=== PATIENT | female | born 1985 | race Caucasian/White ===

== ENCOUNTER 2019-04-04 03:30 | Emergency (ER) | payer BC, MEDICAID, SELFPAY ==
[2019-04-04 03:31] VITALS: BP 128/72; PULSE 71; RESP 16; TEMP 36.7; O2SAT 99; BMI 34.0
--- NOTE | 2019-04-04 03:45 | EKG12_ITS ---
Test Reason : CP Blood Pressure : / mmHG Vent. Rate : 068 BPM Atrial Rate : 068 BPM P-R Int : 128 ms QRS Dur : 082 ms QT Int : 384 ms P-R-T Axes : 030 030 026 degrees QTc Int : 408 ms Normal sinus rhythm Normal ECG Confirmed by MICHA GEORGE, MORRO ([id number]), editor in chief JERE CHAMBERS ([id number] on 04/05/2019 1:22:48 PM Referred By: ERIC Confirmed By:LINDA MUSE MD
--- NOTE | 2019-04-04 03:45 | RAD_ITS ---
STUDY: X-RAY CHEST REASON FOR EXAM: Female, 33 years old. Chest pain. TECHNIQUE: Single AP portable view of the chest. COMPARISON: None. FINDINGS: The lungs are slightly underexpanded with mild bilateral basilar atelectasis, otherwise clear. There is no demonstrated pleural abnormality. Normal size heart. Normal mediastinum and greg. Normal visualized pulmonary arteries. Normal visualized aortic arch and descending thoracic aorta. Normal visualized thoracic spine. Normal visualized ribs, clavicles, and shoulders. There is no demonstrated abnormality of the visualized soft tissue structures of the upper abdomen. RAD/Chest 1 View (Portable) IMPRESSION: Mild bilateral basilar atelectasis, otherwise no acute cardiac pulmonary process seen Electronically Signed: Mara Wolf MD at 4:14 EDT , Service support ,
[2019-04-04 04:02] LABS: Absolute Lymphocyte Count 2.79 X10^3/uL (0.83-4.51); Absolute Neutrophil Count 3.4 X10^3/uL (2.0-7.7); Basophil# 0.05 X10^3/uL; Basophil% 0.7 % (0-1); Eosinophil# 0.23 X10^3/uL; Eosinophils% 3.3 % (0-5); Hematocrit 34.5 % (37-47); Hemoglobin 11.3 g/dL (12.0-15.0); Lymphocyte # 2.79 X10^3/ul (4.0); Lymphocyte % 40.4 % (19-41); Mean Corp Hgb Conc 32.8 g/dL (32-36); Mean Corpuscular Hgb 31.4 pg (27.0-32.0); Mean Corpuscular Volume 95.8 fL (81-99); Mean Platelet Vol. 9.6 fl (6.2-12.0); Monocyte# 0.43 X10^3/uL; Monocyte% 6.2 % (0-10); NRBC Flagged by Analyzer 0 % (0-5); Neutrophil % 49.3 % (47-70); Platelet Count 199 K/mm3 (150-450); RBC Distribution Width CV 12.8 % (11.6-14.6); RBC Distribution Width SD 44.8 fl (35.1-43.9); White Blood Count 6.9 K/mm3 (4.4-11.0)
[2019-04-04 04:14] LABS: D-Dimer Quantitative (DVT/PE) 1.12 FEU/ug/m (0.27-0.49)
--- NOTE | 2019-04-04 04:14 | CT_ITS ---
STUDY: CTA CHEST REASON FOR EXAM: Female, 33 years old. Chest pain for one month, concern for pulmonary embolus. History of DVT. RADIATION DOSAGE (If Supplied By Facility): CTDIvol = ( 9.74 ) mGy, DLP = ( 402.24 ) mGycm TECHNIQUE: The examination was performed with the intravenous administration of IV 100mL Isovue-370 100ML. Post-processing of the angiographic images was performed, with multiplanar reformation and 3D reconstruction. Individualized dose optimization techniques were used for this CT. COMPARISON: None. FINDINGS: Normal enhancement of the main pulmonary artery and right and left pulmonary arteries. Normal enhancement of the bilateral peripheral pulmonary arteries. There is no demonstrated pulmonary embolism. Normal thoracic aorta and visualized great vessels. There is no demonstrated aortic dissection. Normal heart and pericardium. Normal mediastinum. Normal hilar regions. Normal visualized trachea and bronchi. The lungs are well expanded. There is mild posterior lower lobe groundglass opacities suggestive of mild dependent atelectasis versus residual infiltrates. There are small bilateral lower lobe subpleural cystic changes . There is a focal area of consolidation within the left lower lobe suggestive of atelectasis, differential diagnosis includes patchy pneumonia versus less likely neoplasm. Normal pleura. Normal chest wall structures. Normal osseous structures. Normal visualized upper abdomen. CT/CTA Chest W/WO Contrast IMPRESSION: Negative CTA chest examination, without a demonstrated pulmonary embolism or arterial dissection. Area suggestive of round atelectasis within the left lower lobe as described above. Differential diagnosis includes residual patchy infiltrate. Given age and morphology, neoplasm is unlikely but not excluded. Follow-up with CT chest in 3 months recommended to evaluate resolution. Bilateral subtle ground glass densities along the posterior dependent lower lobes most compatible with dependent atelectasis, less likely pneumonia. Electronically Signed: Mara Wolf MD at 4:52 EDT , Service support ,
[2019-04-04 04:17] LABS: Anion Gap 8 (5-15); BUN 20 mg/dL (7-18); BUN/Creat Ratio 19.4 RATIO (10-20); Chloride 108 mmol/L (98-107); Creatinine, Serum 1.03 mg/dL (0.55-1.02); EST Glomerular Filtration Rate 66 mL/min (>60); Est Glom Filt Rate - Afr Amer 80 mL/min (>60); Estimated Creatinine Clearance 62.02 ml/min; Glucose 87 mg/dL (74-106); Potassium 3.5 mmol/L (3.5-5.1); Sodium Level 139 mmol/L (136-145)
[2019-04-04 04:46] LABS: Internal QC Validated? YES +Cl - CLEAR BKGD; Pregnancy, Serum, hCG Quali. NEGATIVE Negative
[2019-04-04 04:54] VITALS: BP 98/55; PULSE 68; RESP 20; O2SAT 100
--- NOTE | 2019-04-04 04:58 | ED.RN ---
0413 dr sky made aware of d-dimer 1.12.
--- NOTE | 2019-04-04 05:04 | ED.DCSUM_ITS ---
- ER Visit Summary Date of Service: 04/04/19 Chief Complaint: Pain History of Present Illness: The patient is a 33 F with left-sided chest pain ongoing for about a month and a half. It was worse over the past hour or so the patient came to the ED. Associated with nausea and a headache. Denies fevers or other associated symptoms. Patient does smoke and use control. History of factor V Leiden. Physical Examination: Afebrile and vital signs are unremarkable. Alert and orie nted. No acute distress. Heart regular. No respiratory distress. Extremities nontender with no edema. Skin normal. Test Results: EKG showed sinus rhythm at a rate of 68. Hemoglobin stable at 11.3. Chloride 108 and creatinine 1.03. Troponin normal. D-dimer elevated. Initial chest x-ray showed mild bibasilar atelectasis. CT showed no evidence of PE or dissection but she does have a possible left lower lobe infiltrate versus atelectasis. Emergency Department Course and Treatment: Patient was low risk for PE. No PE on CTA. No risk factors for ACS. She does have some possible left lower lobe infiltrate. She has left side pain. She does not have signs of sepsis or signs of pneumonia, will treat given her ongoing symptoms with azithromycin. Follow- up outpatient medicine as advised. Treatment Plan: As above Disposition: Discharge Impression: 1. Atypical chest pain This note was generated with [employer] dictation software. It may contain incorrect words, spelling, and punctuation that were not noted in review of the chart prior to signing ED Disposition - Plan for ED Patient: Referrals: Dilma Gonzalez, VINOD-C [Primary Care Provider] -
--- NOTE | 2019-04-04 05:06 | ED.DEP ---
ED Disposition - Plan for ED Patient: Instructions: CHEST PAIN, Uncertain Cause Prescriptions: Azithromycin 250 mg PO DAILY 4 Days #4 tab Prescription Printed Referrals: Dilma Gonzalez, CUSTOMER SERVICE COORDINATOR-C [Primary Care Provider] -
[2019-04-04] MEDS: Naproxen 500 MG Tablet PO (05:13)
[2019-04-04] MEDS: Azithromycin 250 MG Tablet 500 MG PO (05:13)
[2019-04-04 05:21] VITALS: BP 114/80; PULSE 87; RESP 18; O2SAT 100
== END 2019-04-04 05:22 | disposition home or self-care (01) ==
PROVIDERS: Emergency Provider Emergency Medicine; Family Provider Nurse Practitioner Family; PCP Nurse Practitioner Family
DX: R07.89 Other chest pain (principal); R11.0 Nausea; R51 Headache; R79.89 Other specified abnormal findings of blood chemistry; J98.11 Atelectasis; D68.51 Activated protein C resistance; F32.9 Major depressive disorder, single episode, unspecified; F41.9 Anxiety disorder, unspecified; Z87.442 Personal history of urinary calculi; Z79.3 Long term (current) use of hormonal contraceptives; Z79.01 Long term (current) use of anticoagulants; Z79.899 Other long term (current) drug therapy; Z72.0 Tobacco use
CPT/HCPCS: 71045; 71275; 80048; 84484; 84703; 85025; 85379; 93005; 99285; Q9967

== ENCOUNTER 2019-06-17 04:03 | Emergency (ER) | payer BC, SELFPAY ==
[2019-06-17 04:04] VITALS: BP 127/81; PULSE 113; RESP 18; TEMP 37.7; O2SAT 97; BMI 33.8
[2019-06-17 04:07] VITALS: BP 127/81; PULSE 113; RESP 18; TEMP 37.7; O2SAT 97
--- NOTE | 2019-06-17 04:17 | RAD_ITS ---
STUDY: X-RAY CHEST REASON FOR EXAM: Female, 33 years old. COUGH, [place] AND CHILLS X 1 HR. TECHNIQUE: PA and lateral views of the chest. COMPARISON: 04/04/2019 FINDINGS: The lungs demonstrate linear probable bibasilar atelectasis. There is no focal lung consolidation. Normal size heart. Normal mediastinum and greg. Normal visualized pulmonary arteries. Normal visualized aortic arch and descending thoracic aorta. Normal visualized thoracic spine. Normal visualized ribs, clavicles, and shoulders. There is no demonstrated abnormality of the visualized soft tissue structures of the upper abdomen. RAD/Chest PA and Lateral IMPRESSION: Minimal probable bibasilar atelectasis versus scarring. No focal lung consolidation Electronically Signed: Esteban Melchor, at 5:05 EST Tel , Service support ,
--- NOTE | 2019-06-17 04:17 | ED.VIS.GEN ---
History of Present Illness Chief Complaint: Cold Sx Detail of Chief Complaint: Cough, congestion, chills Informant: Patient Onset: - - Cough times several weeks, chills tonight Current Severity: Mild Maximum Severity: Moderate Narrative: Patient ports ongoing cough for the past several weeks. She has been put on prednisone and Tessalon Perles. She has an inhaler that she uses intermittently. She states cough is continued and tonight she developed chills with mild body aches and a headache. She took Excedrin prior to arrival. She states she has intermittent wheezing. - Past Medical History (1) Factor V Leiden Status: Chronic Past Medical History - Allergies and Home Meds Allergies/Adverse Reactions: Allergies cephalexin monohydrate [From Keflex] Adverse Reaction (Verified 04/04/19 03:36) WEAKNESS, MUSCLE ACHES Penicillins Adverse Reaction (Verified 01/30/15 19:07) Nausea/Vom/Diarrhea Primary Care Physician: Dilma Gonzalez NP-C [Primary Care Provider] - Prior records reviewed: Yes Lives: With Family Smoking Status: Current every day smoker Review of Systems General: Reports: Chills. Denies: Fever Eyes: Denies: Visual changes - bilaterally ENT: Denies: Bilateral ear pain Cardiovascular: Denies: Chest pain Respiratory: Reports: Dyspnea, Cough Gastrointestinal: Denies: Abdominal pain, Vomiting, Diarrhea Musculoskeletal: Reports: Myalgias Skin: Denies: Rash Neurological: Reports: Headache Allergy: Denies: Uticaria Physical Exam Vital Signs/Narrative: Vital Signs Temp Pulse Resp BP Pulse Ox 06/17/19 04:07 99.8 F H 113 H 18 127/81 H 97 06/17/19 04:04 99.8 F H 113 H 18 127/81 H 97 Inital Vital Signs reviewed: Yes General: Well nourished, Well developed Head: Normocephalic ENT: Moist mucous membranes, TM's clear Neck: Supple Cardiovascular: Regular rate, Regular rhythm Respiratory: No distress, CTA bilaterally Abdomen: Soft, Nontender Extremities: Nontender Skin: Normal color, No rash Neurological: Alert, Oriented x3 Psychological: Normal affect Diagnostic/Tx/Re-eval Impressions Chest X-Ray 06/17/19 04:17 IMPRESSION: Minimal probable bibasilar atelectasis versus scarring. No focal lung consolidation Electronically Signed: Esteban Melchor, at 5:05 EST Tel , Service support , 06/17/19 04:17 Chest PA and Lateral [RAD] Stat - Medical Decision Making Patient was given a DuoNeb treatment. On repeat evaluation she does feel improved. Lungs remain clear. Chest x-ray does show a haziness at the right base. It is read by radiology as possible atelectasis but I am concerned for early infiltrate given her symptoms. She will be treated the course of doxycycline. ED Disposition - Plan for ED Patient: Disposition: Home or Assisted Living Diagnosis: Bronchitis Instructions: BRONCHITIS, Antiobiotic Treatment (Adult) Prescriptions: Doxycycline 100 mg PO BID #20 cap Transmission Status: Pending to [id number] Referrals: Dilma Gonzalez, MASH GRINDER-C [Primary Care Provider] - 1 Week
[2019-06-17] MEDS: Ipratropium/Albuterol Sulfate 3 ML AMPUL.NEB INHALATION (04:46)
[2019-06-17 04:47] VITALS: PULSE 114; RESP 18
[2019-06-17] MEDS: Doxycycline 100 MG CAPSULE PO (05:32)
[2019-06-17 05:35] VITALS: PULSE 99; RESP 16; O2SAT 100
== END 2019-06-17 05:36 | disposition home or self-care (01) ==
PROVIDERS: Emergency Provider Emergency Medicine; Family Provider Nurse Practitioner Family; PCP Nurse Practitioner Family
DX: J40 Bronchitis, not specified as acute or chronic (principal); R06.2 Wheezing; D68.51 Activated protein C resistance; F17.200 Nicotine dependence, unspecified, uncomplicated; Z79.899 Other long term (current) drug therapy; Z88.1 Allergy status to other antibiotic agents; Z88.0 Allergy status to penicillin
CPT/HCPCS: 71046; 94640; 99283

== ENCOUNTER 2019-06-24 02:20 | Emergency (ER) | payer BC, SELFPAY ==
[2019-06-24 02:22] VITALS: BP 133/80; PULSE 85; RESP 16; TEMP 36.6; O2SAT 99; BMI 35.2
--- NOTE | 2019-06-24 02:26 | ED.RN ---
CALLED FOR EKG, PULLED OLD EKGS FOR
--- NOTE | 2019-06-24 02:49 | EKG12_ITS ---
Test Reason : CP Blood Pressure : / mmHG Vent. Rate : 071 BPM Atrial Rate : 071 BPM P-R Int : 140 ms QRS Dur : 080 ms QT Int : 366 ms P-R-T Axes : 048 037 025 degrees QTc Int : 397 ms Normal sinus rhythm Normal ECG Confirmed by ALISON GEORGE, FELISA ([id number]), editorial clerk MARIKA ROB ([id number]) on 06/25/2019 10:08:40 AM Referred By: VICTOR M Confirmed By:FELISA ROSAS MD
--- NOTE | 2019-06-24 02:49 | RAD_ITS ---
STUDY: X-RAY CHEST REASON FOR EXAM: Female, 33 years old. c/o lt sided chest pain and pain with inspiration -- cough TECHNIQUE: Single AP portable view of the chest. COMPARISON: 06/17/2019. FINDINGS: The lungs are clear and expanded. There is no demonstrated pleural abnormality. Normal size heart. Normal mediastinum and greg. Normal visualized pulmonary arteries. Normal visualized aortic arch and descending thoracic aorta. Normal visualized thoracic spine. Normal visualized ribs, clavicles, and shoulders. There is no demonstrated abnormality of the visualized soft tissue structures of the upper abdomen. RAD/Chest 1 View (Portable) IMPRESSION: Normal x-ray examination of the chest. Electronically Signed: Mara Wolf MD at 3:37 EST , Service support ,
--- NOTE | 2019-06-24 02:50 | ED.DCSUM_ITS ---
- ER Visit Summary Date of Service: 06/24/19 Chief Complaint: Left lateral pleuritic chest pain History of Present Illness: The patient is a [address] prior DVT and PE for which she was on Eliquis. That is since been stopped. She does have a history of factor V Leiden, is a smoker is and is on control pills. Recently had a URI for which she is on doxycycline. Has been doing well. Tonight around 1 AM she had sudden onset of left lateral rib cage chest pain. It is pleuritic and worse with deep breathing. She feels mildly short of breath. No exertional chest pain. No cardiac history. No leg pain or swelling. No recent travel or surgery or hospitalization. Physical Examination: Young female no acute distress vital signs are stable afebrile. Pulse ox 99% on room air no signs of hypoxia. H EENT exam unremarkable. Neck nontender no JVD no lymphadenopathy. Lungs clear to auscultation bilaterally. She splints on the left with deep breathing she has increased left lateral rib cage pain. She also has reproducible left lateral rib cage pain. There is no subcu air crepitance. No bruising or rib bony abnormalities. Heart is regular rate and rhythm rate about 70 with no murmur. Abdomen is soft and nontender normal bowel sounds no peritoneal signs. Abdomen soft nontender normal bowel sounds no peritoneal signs. She is moving all 4 extremities. Calves are nontender without edema or cords. Neurologically she is awake and alert with no focal motor deficits. Back nontender. Test Results: EKG shows a sinus rhythm rate of 71 with no acute signs of AK or ischemia. No S1 or Q3 nor T3. Portable chest x-ray one view read by myself shows no acute abnormality. Normal cardiac silhouette. No pneumothorax. No infiltrate. No bony abnormalities. CBC unremarkable white count of 7. Hemoglobin 13. BMP unremarkable normal creatinine and gap. Troponin normal. test negative. D-dimer elevated 0.97. Due to her numerous risk factors, history and clinical presentation along with the elevated d-dimer I will obtain a CTA of her chest. There is no PE. No dissection. Emergency Department Course and Treatment: Patient with left lateral pleuritic chest pain with risk factors including prior PE and DVT, smoker, control and a history of factor V Leiden. Will undergo a cardiac work-up clinically I do not think this is her heart. This could be a pulmonary emboli versus rib cage strain and pain from coughing with a recent URI. Treatment Plan: Tylenol Motrin for left lateral rib cage pain. Ice to the area. Follow-up. Disposition: dc Impression: Left lateral pleuritic chest pain secondary to chest wall pain History of prior DVT and PE History of factor V Leiden Smoker on control This note was generated with [employer] dictation software. It may contain incorrect words, spelling, and punctuation that were not noted in review of the chart prior to signing ED Disposition - Plan for ED Patient: Referrals: Dlima Gonzalez, VINOD-C [Primary Care Provider] -
[2019-06-24 02:55] LABS: Absolute Lymphocyte Count 2.61 X10^3/uL (0.83-4.51); Absolute Neutrophil Count 3.7 X10^3/uL (2.0-7.7); Basophil# 0.03 X10^3/uL; Basophil% 0.4 % (0-1); Eosinophil# 0.18 X10^3/uL; Eosinophils% 2.6 % (0-5); Lymphocyte # 2.61 X10^3/ul (4.0); Lymphocyte % 37.1 % (19-41); Mean Corp Hgb Conc 32.5 g/dL (32-36); Mean Corpuscular Hgb 31.2 pg (27.0-32.0); Mean Corpuscular Volume 95.9 fL (81-99); Mean Platelet Vol. 9.6 fl (6.2-12.0); Monocyte# 0.48 X10^3/uL; Monocyte% 6.8 % (0-10); NRBC Flagged by Analyzer 0 % (0-5); Neutrophil # 3.72 X10^3/uL (2.7-7.7); Neutrophil % 52.8 % (47-70); Platelet Count 226 K/mm3 (150-450); RBC Distribution Width CV 13.8 % (11.6-14.6); RBC Distribution Width SD 48.5 fl (35.1-43.9); Red Blood Count 4.17 M/mm3 (4.2-5.4)
[2019-06-24 02:58] LABS: Internal QC Validated? YES +Cl - CLEAR BKGD; Pregnancy, Serum, hCG Quali. NEGATIVE Negative
[2019-06-24 03:09] LABS: Anion Gap 7 (5-15); BUN 26 mg/dL (7-18); BUN/Creat Ratio 25.5 RATIO (10-20); Calcium,Total 9.4 mg/dL (8.5-10.1); Chloride 113 mmol/L (98-107); Creatinine, Serum 1.02 mg/dL (0.55-1.02); EST Glomerular Filtration Rate 67 mL/min (>60); Est Glom Filt Rate - Afr Amer 80 mL/min (>60); Glucose 94 mg/dL (74-106); Potassium 3.9 mmol/L (3.5-5.1); Sodium Level 142 mmol/L (136-145)
[2019-06-24 03:12] LABS: D-Dimer Quantitative (DVT/PE) 0.97 FEU/ug/m (0.27-0.49)
--- NOTE | 2019-06-24 03:13 | CT_ITS ---
STUDY: CTA CHEST REASON FOR EXAM: Female, 33 years old. LEFT LOWER LATERAL PLEURITIC CP, COUGH, ELEVATED D-DIMER, HX PE, FACTOR FIVE, NOT CURRENTLY ON THINNERS RADIATION DOSAGE (If Supplied By Facility): CTDIvol = ( 15.06 ) mGy, DLP = ( 410.07 ) mGycm TECHNIQUE: The examination was performed with the intravenous administration of IV 100mL Isovue-370. Post-processing of the angiographic images was performed, with multiplanar reformation and 3D reconstruction. Individualized dose optimization techniques were used for this CT. COMPARISON: None. FINDINGS: Normal enhancement of the main pulmonary artery and right and left pulmonary arteries. Normal enhancement of the bilateral peripheral pulmonary arteries. There is no demonstrated pulmonary embolism. Normal thoracic aorta and visualized great vessels. There is no demonstrated aortic dissection. Normal heart and pericardium. Normal mediastinum. Normal hilar regions. Normal visualized trachea and bronchi. Subsegmental atelectases are noted in the right and left lung bases. Normal pulmonary parenchyma. Normal pleura. Normal chest wall structures. Normal osseous structures. Normal visualized upper abdomen. CT/CTA Chest W/WO Contrast IMPRESSION: No demonstrated pulmonary embolism or arterial dissection. Electronically Signed: Sima Vinson, at 5:49 EST Tel , Service support ,
[2019-06-24] MEDS: Ibuprofen 600 MG Tablet PO (04:01)
[2019-06-24] MEDS: 0.9% Normal Saline 1,000 ML 999 ML IV (04:02)
[2019-06-24 04:44] VITALS: BP 112/80; PULSE 71; RESP 10; O2SAT 99
[2019-06-24 05:54] VITALS: BP 103/77; PULSE 62; RESP 17; O2SAT 97
--- NOTE | 2019-06-24 05:55 | ED.DEP ---
ED Disposition - Plan for ED Patient: Disposition: Home or Assisted Living Instructions: Chest Wall Strain Referrals: Dilma Gonzalez, MOTORCYCLE MAKER-C [Primary Care Provider] - 1 Week if not improving Additional Instructions: Motrin and Tylenol for pain of your left lateral rib cage. The CAT scan shows no signs of blood clot or pneumonia. This is most likely secondary to strain of your rib cage and chest wall from coughing. This should progressively improve and resolve.
== END 2019-06-24 06:00 | disposition home or self-care (01) ==
PROVIDERS: Emergency Provider Emergency Medicine; Family Provider Nurse Practitioner Family; PCP Nurse Practitioner Family
DX: R07.81 Pleurodynia (principal); R07.89 Other chest pain; D68.51 Activated protein C resistance; F32.9 Major depressive disorder, single episode, unspecified; F41.9 Anxiety disorder, unspecified; Z72.0 Tobacco use; Z79.3 Long term (current) use of hormonal contraceptives; Z79.899 Other long term (current) drug therapy; Z86.718 Personal history of other venous thrombosis and embolism; Z86.711 Personal history of pulmonary embolism; Z87.442 Personal history of urinary calculi
CPT/HCPCS: 71045; 71275; 80048; 84484; 84703; 85025; 85379; 93005; 96360; 99285; J7030; Q9967; A4216

== ENCOUNTER 2019-07-17 04:47 | Emergency (ER) | payer BC, SELFPAY ==
[2019-07-17 04:47] VITALS: BP 129/72; PULSE 99; RESP 18; TEMP 36.7; O2SAT 100; BMI 33.3
--- NOTE | 2019-07-17 05:18 | ED.DCSUM_ITS ---
History of Present Illness Chief Complaint: Back Narrative: Patient is a 33-year-old female who presents with back pain. No history of any trauma or injury. She notes that she sits all day for work. About 10 PM last night she developed some bilateral lower back pain. This is worse with movement or certain positions or palpation. No vaginal bleeding or discharge. No abdominal or pelvic pain. No urinary retention or fecal incontinence. No numbness tingling or weakness in the legs. No radiation of pain to the legs. No saddle anesthesias. No fever. No IV drug abuse. Past Medical History - Allergies and Home Meds Allergies/Adverse Reactions: Allergies cephalexin monohydrate [From Keflex] Adverse Reaction (Verified 07/17/19 04:49) WEAKNESS, MUSCLE ACHES Penicillins Adverse Reaction (Verified 07/17/19 04:49) Nausea/Vom/Diarrhea Primary Care Physician: Dilma Gonzalez NP-C [Primary Care Provider] - Past Medical History: - - Asthma, migraines Smoking Status: Current every day smoker Review of Systems All systems negative except as indicated General: Denies: Fever Cardiovascular: Denies: Chest pain Respiratory: Denies: Dyspnea Gastrointestinal: Denies: Abdominal pain, Nausea, Vomiting Musculoskeletal: Reports: Back pain. Denies: Extremity Pain Skin: Denies: Rash Neurological: Denies: Headache Physical Exam Vital Signs/Narrative: Vital Signs Temp Pulse Resp BP Pulse Ox 07/17/19 04:47 98.0 F 99 18 129/72 H 100 Inital Vital Signs reviewed: Yes General: Well nourished Head: Normocephalic Eyes: EOMI ENT: Moist mucous membranes Neck: Supple Cardiovascular: Regular rate Respiratory: No distress Abdomen: Soft, Nontender, Nondistended Back: - - Bilateral paraspinal lumbar tenderness no midline tenderness Extremities: Nontender, No edema, - - Normal strength and sensation of the lower extremities Neurological: Alert, Normal Strength, Normal Sensation Psychological: Normal affect Diagnostic/Tx/Re-eval - Medical Decision Making Patient's presentation is most consistent with a lumbosacral strain. She was given naproxen here. She was given prescriptions for naproxen and Flexeril and advised on supportive care. She understands to return for new or worsening symptoms. Patient was discharged. ED Disposition - Plan for ED Patient: Disposition: Home or Assisted Living Diagnosis: Lumbosacral strain Prescriptions: cycloBENZAPRine HCl [Flexeril] 10 mg PO TID PRN #20 tab PRN Reason: Muscle Spasm Prescription Printed Naproxen [Naprosyn] 500 mg PO BID #20 tab Prescription Printed Referrals: Dilma Gonzalez, CYTOTECHNOLOGIST SUPERVISOR-C [Primary Care Provider] -
[2019-07-17] MEDS: Naproxen 500 MG Tablet PO (05:26)
== END 2019-07-17 05:27 | disposition home or self-care (01) ==
LOC: ED 05:21
PROVIDERS: Emergency Provider Emergency Medicine; PCP Nurse Practitioner Family
DX: S39.012A Strain of muscle, fascia and tendon of lower back, initial encounter (principal); X58.XXXA Exposure to other specified factors, initial encounter; Y93.9 Activity, unspecified; Y92.9 Unspecified place or not applicable; Y99.9 Unspecified external cause status; G43.909 Migraine, unspecified, not intractable, without status migrainosus; J45.909 Unspecified asthma, uncomplicated; F17.200 Nicotine dependence, unspecified, uncomplicated; Z88.1 Allergy status to other antibiotic agents; Z88.0 Allergy status to penicillin; Z79.899 Other long term (current) drug therapy
CPT/HCPCS: 99283

== ENCOUNTER 2019-11-14 16:50 | Emergency (ER) | payer MEDICAID, SELFPAY ==
[2019-11-14 16:51] VITALS: BP 118/72; PULSE 97; RESP 18; TEMP 36.5; O2SAT 97; BMI 35.6
--- NOTE | 2019-11-14 17:07 | ED.VISSUMM ---
- ER Visit Summary Date of Service: 11/14/19 Chief Complaint: [Pain and swelling to right great toe] History of Present Illness: The patient is a 34 F presents to the emergency department with pain and swelling to the right great toe that started yesterday. She denies any trauma. Patient has history of ingrown toenails. Patient denies any fevers or recent illness. Patient noted some faint erythema around the toenail became concerned. [Patient has history of factor V Leiden and history of PE and DVT. Patient currently on Eliquis.] Physical Examination: Right great toe-patient does have some faint erythema around the medial lateral aspect of the nail as well as the front edge. The medial and lateral edges seem to be slightly ingrown however there is no drainage or foul odor noted. There is no significant soft tissue swelling noted. [] Test Results: [None indicated] Emergency Department Course and Treatment: [At this point I recommended antibiotics and warm soaks and Epson salts. Patient will be referred to podiatry for follow-up. I did not feel the nail needed to be acutely removed.] Treatment Plan: Clindamycin and warm soaks and follow-up with podiatry [] Disposition: [Discharged home in stable condition] Impression: [Right great toenail ingrown] This note was generated with [employer] dictation software. It may contain incorrect words, spelling, and punctuation that were not noted in review of the chart prior to signing ED Disposition - Plan for ED Patient: Referrals: Dilma Gonzalez, ASSOCIATE PROFESSOR OF ECONOMICS-C [Primary Care Provider] -
--- NOTE | 2019-11-14 17:09 | ED.DEP ---
ED Disposition - Plan for ED Patient: Instructions: ED Ingrown Toenail Not Infected Home Treatment, ED Toenail Ingrown Infec Abx Onl Prescriptions: Clindamycin HCl [Cleocin] 300 mg PO Q6H #40 cap Transmission Status: Pending to [id number] Referrals: Dilma Gonzalez, VINOD-C [Primary Care Provider] - Madeline Negrete DPM [STAFF PHYSICIAN] - 3-5 Days
[2019-11-14] MEDS: Clindamycin HCl 150 MG Capsule 300 MG PO (17:43)
== END 2019-11-14 17:48 | disposition home or self-care (01) ==
PROVIDERS: Emergency Provider Emergency Medicine; PCP Family Medicine
DX: L60.0 Ingrowing nail (principal); D68.51 Activated protein C resistance; Z72.0 Tobacco use; Z79.01 Long term (current) use of anticoagulants; Z79.899 Other long term (current) drug therapy; Z86.718 Personal history of other venous thrombosis and embolism; Z86.711 Personal history of pulmonary embolism
CPT/HCPCS: 99283

== ENCOUNTER 2020-02-14 17:33 | Emergency (ER) | payer MEDICAID, SELFPAY ==
[2020-02-14 17:34] VITALS: BP 135/73; PULSE 91; RESP 15; TEMP 36.7; O2SAT 99; BMI 39.4
--- NOTE | 2020-02-14 17:44 | ED.VIS.GEN ---
History of Present Illness Chief Complaint: Back Informant: Patient Onset: Today Context: Gradual Onset Timing: Intermittent Current Severity: Moderate Maximum Severity: Moderate Narrative: The patient is a 34-year-old female with medical history significant for lumbar back pain who presents to the emergency department exacerbation of pain. Patient states that she has been in physical therapy for about 6 weeks. 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 She states she began to have spasm across her lower back that seem to radiate down her legs. She denies any problems with bowel or bladder. She denies any trauma. She states this feels similar when she gets an exacerbation of her pain. She did try a muscle relaxer earlier with little improvement. Prior similar symptoms: Yes Recent Illness/Hospitalization: Yes Past Medical History - Allergies and Home Meds Allergies/Adverse Reactions: Allergies cephalexin monohydrate [From Keflex] Adverse Reaction (Verified 02/14/20 17:34) WEAKNESS, MUSCLE ACHES Penicillins Adverse Reaction (Verified 02/14/20 17:34) Nausea/Vom/Diarrhea Primary Care Physician: Loretta Hermosillo DO [Primary Care Provider] - Prior records reviewed: Yes Past Medical History: - - Prior back pain Surgical History: noncontributory Smoking Status: Current every day smoker Review of Systems General: Denies: Chills, Fever, Sweats Eyes: Denies: Visual changes - bilaterally, Diplopia ENT: Denies: Rhinorrhea, Sore throat Cardiovascular: Denies: Chest pain, Palpitations Respiratory: Denies: Dyspnea, Cough, Dyspnea on exertion Gastrointestinal: Denies: Abdominal pain, Nausea, Vomiting, Diarrhea, Melena, Hematochezia Genitourinary: Denies: Dysuria, Hematuria, Frequency Musculoskeletal: Reports: Back pain. Denies: Extremity Pain Skin: Denies: Rash, Wounds Neurological: Denies: Headache, Weakness, Numbness Physical Exam Vital Signs/Narrative: Vital Signs Temp Pulse Resp BP Pulse Ox 02/14/20 17:34 98.0 F 91 15 135/73 H 99 Inital Vital Signs reviewed: Yes General: Well nourished, Well developed, No Acute Distress Head: Normocephalic, Atraumatic Eyes: Perrl, EOMI ENT: Moist mucous membranes, No rhinorrhea Neck: Supple, Nontender Cardiovascular: Regular rate, Regular rhythm, No murmurs Respiratory: No distress, CTA bilaterally, Chest nontender Abdomen: Soft, Nontender, Nondistended, Normal bowel sounds Back: Normal Inspection, - - Paraspinal tenderness without midline tenderness to palpation. 2+ symmetric lower extremity pulses. 2+ reflexes. Extremities: Nontender, No edema Skin: Normal color, No rash Neurological: Alert, Oriented x3, Cranial nerves II-XII grossly intact, Normal Strength, Normal Sensation Psychological: Normal affect, Normal Mood Diagnostic/Tx/Re-eval - Medical Decision Making Patient presents with exacerbation of back pain. She has no red flag symptoms. She has no evidence of cauda equina or other dangerous process. She was treated with IM anti-inflammatories and antispasmodics. I will give the patient a short course of tramadol for acute pain control as she has had this before. She will be discharged home. Impression 1. Lumbar strain with spasm ED Disposition - Plan for ED Patient: Instructions: ED Spasm Back No Trauma, ED LUMBAR SPRAIN/STRAIN Prescriptions: traMADol [Ultram] 50 mg PO Q4H PRN PRN 3 Days #10 tab PRN Reason: Pain Prescription Printed Referrals: Loretta Hermosillo DO [Primary Care Provider] -
[2020-02-14] MEDS: Ketorolac 30 MG/ML Syringe IM (17:50)
[2020-02-14] MEDS: Orphenadrine 60 MG/2 ML Ampul IM (17:51)
== END 2020-02-14 18:16 | disposition home or self-care (01) ==
LOC: ED 18:14
PROVIDERS: Emergency Provider Emergency Medicine; PCP Family Medicine
DX: S39.012A Strain of muscle, fascia and tendon of lower back, initial encounter (principal); F17.200 Nicotine dependence, unspecified, uncomplicated; X58.XXXA Exposure to other specified factors, initial encounter
CPT/HCPCS: 96372; 99282

== ENCOUNTER 2020-06-03 21:16 | Emergency (ER) | payer MEDICAID, SELFPAY ==
[2020-06-03 21:17] VITALS: BP 141/84; PULSE 82; RESP 16; TEMP 36.6; O2SAT 100; BMI 37.3
--- NOTE | 2020-06-03 21:35 | ED.DCSUM_ITS ---
History of Present Illness Chief Complaint: Upper Extremity Injury Informant: Patient Narrative: Patient is a 34-year-old female with a history of factor V Leiden on anticoagulation who presents to the emergency department for right shoulder pain. She states that she was helping her mother move this and was doing a lot of heavy lifting. It has been hurting since this Monday. She denies having this pain before in the past. Pain does not radiate down her arms or into her neck. She denies any chest pain or shortness of breath. Moving the right shoulder/arm makes her symptoms worse. Pushing on the area hurts. She has been taking Tylenol, ibuprofen and muscle relaxers she had leftover. This has not been giving her significant relief. She denies any trauma. No popping or clicking of the joint. She is right-handed at baseline. Past Medical History - Allergies and Home Meds Allergies/Adverse Reactions: Allergies cephalexin monohydrate [From Keflex] Adverse Reaction (Verified 06/03/20 21:20) WEAKNESS, MUSCLE ACHES Penicillins Adverse Reaction (Verified 06/03/20 21:20) Nausea/Vom/Diarrhea Primary Care Physician: Loretta Hermosillo DO [Primary Care Provider] - Prior records reviewed: Yes Surgical History: noncontributory Smoking Status: Former smoker Review of Systems All systems negative except as indicated General: Denies: Chills, Fever, Sweats ENT: Denies: Rhinorrhea, Sore throat Cardiovascular: Denies: Chest pain, Palpitations Respiratory: Denies: Dyspnea, Cough, Dyspnea on exertion Gastrointestinal: Denies: Abdominal pain, Nausea, Vomiting Musculoskeletal: Reports: Extremity Pain. Denies: Neck pain, Back pain, Swelling Skin: Denies: Rash, Wounds Neurological: Denies: Headache, Weakness, Numbness Physical Exam Vital Signs/Narrative: Vital Signs Temp Pulse Resp BP Pulse Ox 06/03/20 21:17 97.8 F 82 16 141/84 H 100 Inital Vital Signs reviewed: Yes General: Well nourished, Well developed, No Acute Distress Head: Normocephalic, Atraumatic Eyes: Perrl, EOMI Neck: Supple, Nontender Cardiovascular: Regular rate, Regular rhythm, No murmurs Respiratory: No distress, CTA bilaterally, Chest nontender Abdomen: Soft, Nontender, Nondistended Back: Nontender, Normal Inspection. Negative for: Spinal tenderness Extremities: Nontender, No edema, - - Tenderness to the right trapezius/SCM. This does feel tight. She does have point tenderness to that area. She has pain when actively raising her arm. Full range of motion. 5 out of 5 muscle strength. 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 2+ radial pulse. Sensation intact. Skin: Normal color, No rash Neurological: Alert, Normal Strength, Normal Sensation Psychological: Normal affect, Normal Mood Diagnostic/Tx/Re-eval - Medical Decision Making Patient presents to the ED for right shoulder pain. On physical exam she does have tenderness. This does seem musculoskeletal. She does have any chest pain or shortness of breath. Vital signs within normal limits. No imaging indicated at this time as is nontraumatic. No systemic symptoms. No pain out of proportion. Will treat symptomatically with lidocaine patch as well as anti- inflammatories. She is advised on rice. She is given a dose of Toradol here in the emergency department. Will discharge home in stable condition. She is to follow-up with her PCP. Warning signs and symptoms which to return to the ED including develop any chest pain or shortness of breath are reviewed. She understands and is agreeable this plan. Discharged home in stable condition. All questions answered. ED Disposition - Plan for ED Patient: Disposition: Home or Assisted Living Diagnosis: Shoulder pain Instructions: ED RICE Prescriptions: Lidocaine [Lidoderm Patch] 1 patch TOPICAL DAILY 5 Days #5 patch Transmission Status: Pending to [facility] [id number] Naproxen [Naprosyn] 500 mg PO BID #14 tab Transmission Status: Pending to [facility] [id number] Referrals: Loretta Hermosillo DO [Primary Care Provider] - 3-5 Days if not improving
[2020-06-03] MEDS: Ketorolac 30 MG/ML Syringe IM (21:41)
[2020-06-03 22:08] VITALS: RESP 16
== END 2020-06-03 22:09 | disposition home or self-care (01) ==
LOC: ED 21:56
PROVIDERS: Emergency Provider Emergency Medicine; PCP Family Medicine
DX: M25.511 Pain in right shoulder (principal); D68.51 Activated protein C resistance; Z79.01 Long term (current) use of anticoagulants; Z79.899 Other long term (current) drug therapy; Z87.891 Personal history of nicotine dependence
CPT/HCPCS: 96372; 99282

== ENCOUNTER 2020-07-03 21:50 | Emergency (ER) | payer MEDICAID, SELFPAY ==
[2020-07-03 21:53] VITALS: BP 123/71; PULSE 74; RESP 15; TEMP 36.3; O2SAT 99; BMI 35.4
--- NOTE | 2020-07-03 22:19 | ED.DCSUM_ITS ---
- ER Visit Summary Date of Service: 07/03/20 Chief Complaint: Rash History of Present Illness: The patient is a [address] Hermosillo. She reports that her left inguinal region has been sore for the past 3 days. She looked at it tonight and there was a bump that broke open. There has been no drainage. She denies any pain. Patient reports that she has been nauseated. She has not vomited. She denies any fever, chills, or other constitutional symptoms. Physical Examination: Vitals: Stable. Afebrile. General: Well-nourished and well-developed. Head: Normocephalic atraumatic. Neck: Supple, no lymphadenopathy. No JVD. Nontender. Cardiovascular: Regular rate and rhythm. No murmurs. Respiratory: No respiratory distress. Clear to auscultation bilaterally. Abdominal: Soft, nontender, nondistended, normal bowel sounds. No guarding, rebound, or peritoneal signs. Back: Nontender. Extremities: Nontender, no edema. Skin: Left inguinal region there is erythema consistent with a candidal rash. There is a 1 cm superficial ulcer in the center of this. There is no induration or fluctuance to suggest abscess. Neurologic: Alert and oriented ?3. Cranial nerves II through XII are intact. Normal strength and sensation. Psych: Normal affect. Emergency Department Course and Treatment: I had a prolonged discussion with the patient that the likely cause of this. At this time an I&D is not necessary. This does not appear to be cellulitis. It appears to be candidal. The break in her skin appears to be where her underwear is rubbing. Treatment Plan: Patient will be discharged with Bactroban ointment to place on the ulcer. She is instructed to use miconazole powder spray to the area. Follow-up with her primary care physician in 2 days for a wound check. Return to the emergency department for any worsening symptoms. Disposition: To home in improved and stable condition. Impression: 1. Inguinal candidiasis. 2. Superficial ulcer left inguinal region. This note was generated with [employer] software. It may contain incorrect words, spelling, and punctuation that were not noted in review of the chart prior to signing ED Disposition - Plan for ED Patient: Instructions: ED [facility] Infection (Adult) Prescriptions: Mupirocin [Bactroban] 1 applic TOPICAL TID #1 tube Referrals: Loretta Hermosillo DO [Primary Care Provider] - 2 Days for wound check
== END 2020-07-03 22:54 | disposition home or self-care (01) ==
LOC: ED 22:53
PROVIDERS: Emergency Provider Emergency Medicine; PCP Family Medicine
DX: B37.2 Candidiasis of skin and nail (principal); L98.491 Non-pressure chronic ulcer of skin of other sites limited to breakdown of skin; R11.0 Nausea; Z72.0 Tobacco use; Z79.01 Long term (current) use of anticoagulants; Z79.899 Other long term (current) drug therapy; Z87.442 Personal history of urinary calculi
CPT/HCPCS: 99282

== ENCOUNTER 2020-08-07 01:25 | Emergency (ER) | payer MEDICAID, SELFPAY ==
[2020-08-07 01:26] VITALS: BP 137/82; PULSE 86; RESP 16; TEMP 36.8; O2SAT 98; BMI 35.6
--- NOTE | 2020-08-07 01:33 | ED.VIS.GEN ---
History of Present Illness Chief Complaint: Lower Extremity Injury Informant: Patient Onset: Yesterday Context: Gradual Onset Timing: Continuous Current Severity: Mild Maximum Severity: Mild Narrative: The patient is a 34-year-old female who presents to the emergency department with posterior calf pain and swelling. She does have a history of factor V Leiden. The patient is on Eliquis. She thinks that last week, she did miss 1 dose. She states she started a new job and has been standing on her feet a lot. She noticed an area that appeared swollen today. She denies chest pain or shortness of breath. She states she is otherwise been in her normal state of health. Prior similar symptoms: No Recent Illness/Hospitalization: No Past Medical History - Allergies and Home Meds Allergies/Adverse Reactions: Allergies cephalexin monohydrate [From Keflex] Adverse Reaction (Verified 08/07/20 01:30) WEAKNESS, MUSCLE ACHES Penicillins Adverse Reaction (Verified 08/07/20 01:30) Nausea/Vom/Diarrhea Primary Care Physician: Loretta Hermosillo DO [Primary Care Provider] - Prior records reviewed: Yes Past Medical History: - - Factor V Leiden Surgical History: noncontributory Smoking Status: Current every day smoker Review of Systems ROS: - Factor V Leiden General: Denies: Chills, Fever, Sweats Eyes: Denies: Visual changes - bilaterally, Diplopia ENT: Denies: Rhinorrhea, Sore throat Cardiovascular: Denies: Chest pain, Palpitations Respiratory: Denies: Dyspnea, Cough, Dyspnea on exertion Gastrointestinal: Denies: Abdominal pain, Nausea, Vomiting, Diarrhea, Melena, Hematochezia Genitourinary: Denies: Dysuria, Hematuria, Frequency Musculoskeletal: Denies: Back pain, Extremity Pain Skin: Denies: Rash, Wounds Neurological: Denies: Headache, Weakness, Numbness Physical Exam Vital Signs/Narrative: Vital Signs Temp Pulse Resp BP Pulse Ox 08/07/20 01:26 98.2 F 86 16 137/82 H 98 Inital Vital Signs reviewed: Yes General: Well nourished, Well developed, No Acute Distress Head: Normocephalic, Atraumatic Eyes: Perrl, EOMI ENT: Moist mucous membranes, No rhinorrhea Neck: Supple, Nontender Cardiovascular: Regular rate, Regular rhythm, No murmurs Respiratory: No distress, CTA bilaterally, Chest nontender Abdomen: Soft, Nontender, Nondistended, Normal bowel sounds Back: Nontender, Normal Inspection Extremities: No edema, Calf Tenderness - No palpable cords. Normal pulses. No erythema. No appreciable edema. Skin: Normal color, No rash Neurological: Alert, Oriented x3, Cranial nerves II-XII grossly intact, Normal Strength, Normal Sensation Psychological: Normal affect, Normal Mood Diagnostic/Tx/Re-eval - Medical Decision Making Patient presents concern for DVT. She states she is been compliant with her Eliquis except for 1 day. She has no significant swelling. Unfortunately, I do not have ultrasound available at this time. She is already on anticoagulants. She is had no chest pain or shortness of breath. I will obtain an outpatient DVT study to be done later this morning. The patient is comfortable with this plan of care. Impression 1. Right calf swelling ED Disposition - Plan for ED Patient: Instructions: ED Peripheral Edema, Unilateral Referrals: Loretta Hermosillo DO [Primary Care Provider] - Additional Instructions: Please call the number to schedule your ultrasound for this morning. There is an order in the computer. You have also had a handwritten order to make sure that this can be done.
== END 2020-08-07 01:48 | disposition home or self-care (01) ==
LOC: ED 01:40
PROVIDERS: Emergency Provider Emergency Medicine; PCP Family Medicine
DX: M79.661 Pain in right lower leg (principal); M79.89 Other specified soft tissue disorders; D68.51 Activated protein C resistance; F17.200 Nicotine dependence, unspecified, uncomplicated; Z79.01 Long term (current) use of anticoagulants; Z79.899 Other long term (current) drug therapy

== ENCOUNTER → 2020-08-07 11:30 | Outpatient (CLI) | payer MEDICAID, SELFPAY ==
[2020-08-07 01:26] VITALS: BMI 35.6
--- NOTE | 2020-08-07 11:32 | VDLE_ITS ---
Reason For Study: Pain RIGHT GSV is normal. CFV is compressible, spontaneous, phasic, competent and demonstrates normal augmentation. FV is compressible, spontaneous, phasic, competent and demonstrates normal augmentation. PopV is partially compressible with bright intraluminal echoes consistent with chronic DVT. Normal venous flow noted. T/P Trunk is compressible. PTV is compressible. RT PerV is compressible. Procedure This is a venous duplex using B-mode, color flow and spectral Doppler. Exam performed in department. Pt has a medical history of DVT and factor five. A preliminary report was called and/or faxed to PCP: Jaimee. Pt seen in ED 08/07/20 1am. Interpretation Summary Partial compressibility with bright intraluminal echoes right popliteal vein consistent with chronic deep venous thrombosis. The possibility of a acute component cannot be excluded. Patent and compressible right great saphenous vein. Ordering Physician: Jerome Cedeno Referring Physician: Loretta Hermosillo Performed By: Sailaja Lam RVT
== END ==
PROVIDERS: PCP Family Medicine; Referring Provider Emergency Medicine; Visit Provider Emergency Medicine
DX: M79.604 Pain in right leg (principal); M25.561 Pain in right knee; D68.51 Activated protein C resistance; F31.9 Bipolar disorder, unspecified; F41.9 Anxiety disorder, unspecified; Z72.0 Tobacco use; Z79.01 Long term (current) use of anticoagulants; Z79.899 Other long term (current) drug therapy
CPT/HCPCS: 73564; 93971

== ENCOUNTER 2020-08-07 12:03 | Emergency (ER) | payer MEDICAID, SELFPAY ==
[2020-08-07 01:26] VITALS: BMI 35.6
[2020-08-07 12:04] VITALS: BP 124/87; PULSE 96; RESP 16; TEMP 36.9; O2SAT 98; BMI 35.9
--- NOTE | 2020-08-07 12:21 | ED.DCSUM_ITS ---
- ER Visit Summary Date of Service: 08/07/20 Chief Complaint: Right knee and leg pain History of Present Illness: The patient is a [address] Denise. She reports that she has right knee and leg pain that began 2 days ago. This began while she was working at [employer] doing repetitive movements. States that she has had a job for 2 weeks. She denies any other trauma. No fall or MVA. No other change in activity. Patient describes throbbing pain instead of 10 at worst 5-10 currently. Is wor sened by walking. She is states it is relieved with rest, Tylenol, and Aleve. Patient does have a history of factor V Leiden. She had an ultrasound this morning that shows no DVT per her report. Physical Examination: Vitals: Stable. Afebrile. General: Well-nourished and well-developed. Head: Normocephalic atraumatic. Neck: Supple, no lymphadenopathy. No JVD. Nontender. Cardiovascular: Regular rate and rhythm. No murmurs. Respiratory: No respiratory distress. Clear to auscultation bilaterally. Abdominal: Soft, nontender, nondistended, normal bowel sounds. No guarding, rebound, or peritoneal signs. Back: Nontender. Extremities: Mild tenderness palpation is diffuse over the anterior surface of her knee. She has moderate tenderness palpation the popliteal fossa. Mild tenderness palpation of the right calf. There is no appreciable joint effusion. She has no overlying erythema or warmth to suggest a septic joint. She has no pain with short arc movements. She has pain, but no ligamentous instability with anterior/posterior drawer or medial/lateral stress. She has a 2+ dorsalis pedis pulse. Skin: Normal color, no rash. Neurologic: Alert and oriented ?3. Cranial nerves II through XII are intact. Normal strength and sensation. Psych: Normal affect. Test Results: Right knee x-ray shows a joint effusion with no bony abnormality. Emergency Department Course and Treatment: Patient was treated with naproxen. She is resting comfortably. Treatment Plan: I had a prolonged discussion with the patient that she may have damaged her cartilage. She will be discharged with instructions to ice and continue use naproxen and Tylenol for pain. Follow-up Dr. Locke in 1 week if not improving. Return to the emergency department for any worsening symptoms. Disposition: To home in improved and stable condition. Impression: 1. Right knee pain, acute. This note was generated with [employer] dictation software. It may contain incorrect words, spelling, and punctuation that were not noted in review of the chart prior to signing ED Disposition - Plan for ED Patient: Instructions: ED Knee Pain of Uncertain Cause Referrals: Monique Locke DO [STAFF PHYSICIAN] - 1 Week if not improving
[2020-08-07] MEDS: Naproxen 500 MG Tablet PO (12:24)
--- NOTE | 2020-08-07 12:24 | RAD_ITS ---
STUDY: X-RAY - RIGHT KNEE REASON FOR EXAM: Female, 34 years old. Injury/Pain TECHNIQUE: 4 view(s) of the knee. COMPARISON: None. FINDINGS: Normal visualized distal femur. Normal visualized proximal tibia and fibula. Normal proximal tibiofibular articulation. Normal medial femorotibial compartment. Normal lateral femorotibial compartment. Normal patellofemoral articulation. The soft tissue structures are unremarkable. RAD/Knee 4 or More Views IMPRESSION: Normal x-ray examination of the knee. Electronically Signed: Yeison Griffith MD at 12:39 EST , Service support ,
== END 2020-08-07 13:06 | disposition home or self-care (01) ==
LOC: ED 12:37
PROVIDERS: Emergency Provider Emergency Medicine; PCP Family Medicine
DX: M25.561 Pain in right knee (principal); D68.51 Activated protein C resistance; F31.9 Bipolar disorder, unspecified; F41.9 Anxiety disorder, unspecified; Z72.0 Tobacco use; Z79.01 Long term (current) use of anticoagulants; Z79.899 Other long term (current) drug therapy
CPT/HCPCS: 73564; 99282; 99283

== ENCOUNTER 2020-09-14 23:38 | Emergency (ER) | payer MEDICAID, SELFPAY ==
[2020-08-26 08:37] VITALS: BMI 36.3
[2020-09-14 23:41] VITALS: BP 150/77; PULSE 118; RESP 18; TEMP 36.6; O2SAT 99; BMI 36.6
--- NOTE | 2020-09-15 00:33 | EKG12_ITS ---
Test Reason : ANXIETY Blood Pressure : / mmHG Vent. Rate : 100 BPM Atrial Rate : 100 BPM P-R Int : 140 ms QRS Dur : 086 ms QT Int : 344 ms P-R-T Axes : 062 023 020 degrees QTc Int : 443 ms Normal sinus rhythm Normal ECG Confirmed by SNEHA GEORGE, PATY ([id number]), scientific editor MARIKA ROB ([id number]) on 09/18/2020 2:28:57 PM Referred By: BB Confirmed By:PATY HOOVER MD
--- NOTE | 2020-09-15 00:33 | ED.VIS.GEN ---
History of Present Illness Chief Complaint: Anxiety Informant: Patient Onset: Hours - 2-3 Context: Gradual Onset Timing: Continuous Quality: shaky, anxious Location: all over Current Severity: Severe Maximum Severity: Severe Worsened by: see below Relieved by: nothing - tried her haloperidol, didn't work Associated Symptoms: racing HB Narrative: Patient states she is prone to anxiety attacks, and is having 1 tonight that her usual medication did not help with. She states this 1 was triggered because her children are in foster care, and she was told by someone that she was not going to get her kids back for multiple reasons. She denies any suicidality or physical illness but states she is having rapid palpitations along with her attack today. - Past Medical History (1) Anxiety Status: Chronic (2) Factor V Leiden Status: Chronic Past Medical History - Allergies and Home Meds Allergies/Adverse Reactions: Allergies Penicillins Allergy (Verified 09/14/20 23:39) unknown cephalexin monohydrate [From Keflex] Adverse Reaction (Verified 09/14/20 23:39) WEAKNESS, MUSCLE ACHES Primary Care Physician: Loretta Hermosillo DO [Primary Care Provider] - Surgical History: noncontributory Smoking Status: Current every day smoker Drugs: None Review of Systems General: Denies: Chills, Fever, Sweats Eyes: Denies: Visual changes - bilaterally, Diplopia ENT: Denies: Rhinorrhea, Sore throat Cardiovascular: Reports: Heart racing. Denies: Chest pain Respiratory: Denies: Dyspnea, Cough, Dyspnea on exertion Gastrointestinal: Denies: Abdominal pain, Nausea, Vomiting, Diarrhea, Melena, Hematochezia Genitourinary: Denies: Dysuria, Hematuria, Frequency Musculoskeletal: Denies: Back pain, Extremity Pain Skin: Denies: Rash, Wounds Neurological: Denies: Headache, Weakness, Numbness Psych: Reports: Anxiety. Denies: Suicidal thoughts Physical Exam Vital Signs/Narrative: Vital Signs Temp Pulse Resp BP Pulse Ox 09/14/20 23:41 97.9 F 118 H 18 150/77 H 99 Inital Vital Signs reviewed: Yes General: Well nourished, Well developed, No Acute Distress - pacing room, cooperative, conversive in full sentences Head: Normocephalic, Atraumatic Eyes: Perrl, EOMI ENT: Moist mucous membranes, No rhinorrhea Neck: Supple, Nontender Cardiovascular: Regular rate, Regular rhythm, No murmurs, Tachycardia Respiratory: No distress, CTA bilaterally, Chest nontender Abdomen: Soft, Nontender, Nondistended, Normal bowel sounds Back: Nontender, Normal Inspection Extremities: Nontender, No edema. Negative for: Calf Tenderness Skin: Normal color, No rash, No Trauma Neurological: Alert, Oriented x3, Cranial nerves II-XII grossly intact, Normal Strength, Normal Sensation, Normal Gait Psychological: Normal Mood, - - anxious Diagnostic/Tx/Re-eval - Rhythm Strip Rhythm Strip: Sinus Tach Rate: 100 Ectopy: None - EKG Initial EKG Interpretation: No Acute Injury Pattern - Normal EKG, Sinus Tachycardia - Medical Decision Making Patient feels much better after Ativan orally. I do not think she needs more emergent work-up than the normal EKG we obtained. She is comfortable with this plan. ED Disposition - Plan for ED Patient: Disposition: Home or Assisted Living Diagnosis: Anxiety attack Instructions: ED Anxiety Reaction Referrals: Loretta Hermosillo DO [Primary Care Provider] - As Needed
[2020-09-15] MEDS: LORazepam 1 MG Tablet PO (00:38)
--- NOTE | 2020-09-15 01:54 | ED.RN ---
THIS RN SPOKE TO PT. PT STATES SHE FEELS BETTER AND OK TO GO HOME
== END 2020-09-15 02:00 | disposition home or self-care (01) ==
PROVIDERS: Emergency Provider Emergency Medicine; PCP Family Medicine
DX: F41.1 Generalized anxiety disorder (principal); D68.51 Activated protein C resistance; F17.200 Nicotine dependence, unspecified, uncomplicated; Z79.01 Long term (current) use of anticoagulants; Z79.899 Other long term (current) drug therapy
CPT/HCPCS: 93005; 99283

== ENCOUNTER → 2020-09-25 09:04 | Outpatient (CLI) | payer MEDICAID, SELFPAY ==
[2020-09-14 23:41] VITALS: BMI 36.6
[2020-09-25 10:44] LABS: AST(SGOT) 15 U/L (15-37); Alanine Aminotransfer ALT/SGPT 24 U/L (13-56); Albumin, Serum 3.7 g/dL (3.2-5.0); Alkaline Phosphatase 47 U/L (45-117); Anion Gap 4 (5-15); BUN 12 mg/dL (7-18); BUN/Creat Ratio 12.3 RATIO (10-20); Calcium,Total 8.9 mg/dL (8.5-10.1); Chloride 115 mmol/L (98-107); Cholesterol 178 mg/dL (200); Creatinine, Serum 0.97 mg/dL (0.55-1.02); EST Glomerular Filtration Rate 70 mL/min (>60); Est Glom Filt Rate - Afr Amer 84 mL/min (>60); Globulin 3.7 g/dL (2.2-4.2); Glucose 90 mg/dL (74-106); High Density Lipoprotein 60 mg/dL; Potassium 3.8 mmol/L (3.5-5.1); Protein, Total 7.4 g/dL (6.4-8.2); Sodium Level 142 mmol/L (136-145); Triglycerides 85 mg/dL; Very Low Density Lipoprotein 17 mg/dL (5-40)
== END ==
PROVIDERS: PCP Family Medicine; Referring Provider Family Medicine; Visit Provider Family Medicine
DX: Z01.419 Encounter for gynecological examination (general) (routine) without abnormal findings (principal)
CPT/HCPCS: 36415; 80053; 80061

== ENCOUNTER 2020-09-29 23:05 | Emergency (ER) | payer MEDICAID, SELFPAY ==
[2020-09-29 23:06] VITALS: BP 122/68; PULSE 77; RESP 16; TEMP 36.8; O2SAT 97; BMI 36.6
--- NOTE | 2020-09-29 23:14 | ED.DCSUM_ITS ---
History of Present Illness Chief Complaint: Upper Extremity Injury Informant: Patient Narrative: Patient stated she was moving things yesterday and developed some pain in her right trapezius and right shoulder. Worse with movement. She has had this flareup in the past. She has been using tramadol and Tylenol icing and resting. Comes in for further evaluation as it tightened up tonight. No history of rotator cuff tendinitis. Worsened by movement. Relieved by rest. - Past Medical History (1) Anxiety Status: Chronic (2) Factor V Leiden Status: Chronic Past Medical History - Allergies and Home Meds Allergies/Adverse Reactions: Allergies Penicillins Allergy (Verified 09/29/20 23:10) unknown cephalexin monohydrate [From Keflex] Adverse Reaction (Verified 09/29/20 23:10) WEAKNESS, MUSCLE ACHES Primary Care Physician: Loretta Hermosillo DO [Primary Care Provider] - Prior records reviewed: Yes Past Medical History: - Surgical History: noncontributory Smoking Status: Current every day smoker Alcohol: None Drugs: None Review of Systems General: Denies: Chills, Fever, Sweats Eyes: Denies: Visual changes - bilaterally, Diplopia ENT: Denies: Rhinorrhea, Sore throat Cardiovascular: Denies: Chest pain, Palpitations Respiratory: Denies: Dyspnea, Cough, Dyspnea on exertion Gastrointestinal: Denies: Abdominal pain, Nausea, Vomiting, Diarrhea, Melena, Hematochezia Genitourinary: Denies: Dysuria, Hematuria, Frequency Musculoskeletal: Reports: Neck pain, Extremity Pain. Denies: Back pain Skin: Denies: Rash, Wounds Neurological: Denies: Headache, Weakness, Numbness Physical Exam Vital Signs/Narrative: Vital Signs Temp Pulse Resp BP Pulse Ox 09/29/20 23:06 98.2 F 77 16 122/68 H 97 General: Well nourished, Well developed, No Acute Distress Head: Normocephalic, Atraumatic Eyes: Perrl, EOMI ENT: Moist mucous membranes, No rhinorrhea Neck: Supple, Nontender Cardiovascular: Regular rate, Regular rhythm, No murmurs Respiratory: No distress, CTA bilaterally, Chest nontender Abdomen: Soft, Nontender, Nondistended, Normal bowel sounds Back: Nontender, Normal Inspection Extremities: No edema, Tenderness - Tenderness is in the right posterior shoulder diffusely. Also right trapezius. Range of motion of the right arm secondary to pain in this area. No swelling or deformity or warmth Skin: Normal color, No rash Neurological: Alert, Oriented x3, Cranial nerves II-XII grossly intact, Normal Strength, Normal Sensation Psychological: Normal affect, Normal Mood Diagnostic/Tx/Re-eval - Medical Decision Making Patient consented to an intramuscular injection of Kenalog due to tendinitis suspected in this area. Area was cleansed with alcohol. 80 mg of Kenalog was injected into the muscle maximal tenderness spot with no complications. No bleeding. Band-Aid applied. We will follow-up as an outpatient she will contin ue [id number] pain medicine at home rest and ice follow-up as an outpatient ED Disposition - Plan for ED Patient: Disposition: Home or Assisted Living Diagnosis: Shoulder tendinitis Instructions: ED Shoulder Pain, Uncertain Cause Referrals: Loretta Hermosillo DO [Primary Care Provider] -
[2020-09-29] MEDS: Triamcinolone Acetonide 40 MG/ML Vial 80 MG IM (23:30)
== END 2020-09-29 23:45 | disposition home or self-care (01) ==
LOC: ED 23:42
PROVIDERS: Emergency Provider Emergency Medicine; PCP Family Medicine
DX: M75.21 Bicipital tendinitis, right shoulder (principal); D68.51 Activated protein C resistance; F41.9 Anxiety disorder, unspecified; F17.200 Nicotine dependence, unspecified, uncomplicated; Z79.01 Long term (current) use of anticoagulants; Z79.899 Other long term (current) drug therapy
CPT/HCPCS: 96372; 99282

== ENCOUNTER 2020-10-10 15:50 | Emergency (ER) | payer MEDICAID, SELFPAY ==
[2020-10-10 15:51] VITALS: BP 113/69; PULSE 84; RESP 16; TEMP 36.4; O2SAT 98; BMI 35.4
--- NOTE | 2020-10-10 16:27 | EX.ED.VIS.HA ---
ED.[email or web address] History of Present Illness Chief Complaint: Headache Informant: patient Onset/Context/Timing Onset: Days (4) Context: Gradual Timing: Continuous Quality -Headache: Positive for Similar Prior Headaches and Throbbing Location: bifrontal, worse R retroorbital Current Severity: Moderate Maximum Severity: Moderate Worsened by: light Relieved by: imitrex partially Associated Symptoms/Injury Associated Symptoms: Positive for Nausea, Sinus Pressure (right maxillary just today, grad in onset) and Photophobia; Negative for Fever, Vomiting, Sore Throat, Numbness, Tingling, Preceding Aura, Visual Changes and Visual Loss Injury - [place]: - (no injury) Narrative Narrative: History of migraines, this 1 is more persistent. Taking her prescribed sumatriptan hand, but it is only helping partially not taking a headache away. No other new symptoms except for the right maxillary pain and swelling that started today. She has seasonal allergies and they have been exceedingly bad lately. She takes medications for those, but she has been very congested, no rhinorrhea. No fevers or chills or purulent discharge. No throat symptoms. Recent Illness/Hospitalization: [facility] Medical History (Updated 10/10/20 @ 18:[address] Luis Wilkerson MD) Chronic neck and back pain Factor 5 Leiden mutation, heterozygous Kidney stone Limb weakness Shoulder pain Home Medications medroxyprogesterone 150 mg IM .[id number] 01/30/15 [History Last Taken Unknown] topiramate 200 mg PO BID 01/30/15 [History Last Taken Unknown] citalopram 40 mg PO DAILY 04/04/19 [History Last Taken Unknown] haloperidol 2.5 mg PO TID PRN 04/04/19 [History Last Taken Unknown] apixaban 5 mg PO BID 06/03/20 [History Last Taken Unknown] baclofen 10 - 20 mg PO TID PRN 06/03/20 [History Last Taken Unknown] cholecalciferol (vitamin D3) 2,000 unit PO DAILY 06/03/20 [History Last Taken Unknown] lamotrigine 100 mg PO DAILY 06/03/20 [History Last Taken Unknown] acetaminophen 325 mg capsule 325 mg PO ONCE PRN 08/26/20 [History Last Taken Unknown] lactobacillus combination no.8 3 billion cell capsule 3,000 mmu cells PO DAILY 08/26/20 [History Last Taken Unknown] Allergy/AdvReac Type Severity Reaction Status Date / Time Penicillins Allergy unknown Verified 10/10/20 15:50 cephalexin monohydrate AdvReac WEAKNESS, Verified 10/10/20 15:50 [From Keflex] MUSCLE ACHES Family History (Updated 08/26/20 @ 08:47 by Gia Pelayo) Other Cancer Surgical History History of carpal tunnel release History of toe surgery Social History (Updated 08/26/20 @ 09:14 by Torres Richards PA, PA) Smoking Status: Current every day smoker alcohol intake: never ROS ROS ED Constitutional Constitutional ED: Denies chills or fever(s) Eyes Eyes: Reports photophobia; Denies change in vision or diplopia ENT ENT ED: Reports nasal congestion and sinus pressure; Denies rhinorrhea or sore throat Cardiovascular Cardiovascular: Denies chest pain or palpitations Respiratory/Chest Respiratory/Chest: Denies cough or dyspnea Gastrointestinal Gastrointestinal: Denies abdominal pain, diarrhea, nausea or vomiting Genitourinary Genitourinary ED: Denies dysuria or hematuria Musculoskeletal Musculoskeletal: Denies back pain or neck pain Integumentary Denies abscess or rash Neurologic Neurologic: Reports headache(s); Denies paresthesias or weakness Psychiatric Psychiatric: Denies anxiety or suicidal thoughts EXAM Physical Exam Const Vital Signs: 10/10/20 15:51 Temperature 97.6 F L Temperature Source Temporal Pulse Rate 84 Respiratory Rate 16 Blood Pressure 113/69 Blood Pressure Mean 83 Pulse Ox 98 Oxygen Delivery Method Room Air Positive well nourished and well developed General Appearance ED: well developed and NAD HEENT Reports moist mucous membranes normocephalic and atraumatic Face and Sinus: sinus tenderness Positive for maxillary (Right only. Normal in appearance. Mild nasal turbinate edema without purulent discharge.) Eyes PERRL and EOMs intact bilaterally Eyes Narrative: Mild photophobia Neck full ROM, no lymphadenopathy, supple and no meningeal signs Resp normal respiratory effort Back/Spine normal ROM and normal to inspection Extremity normal to inspection General Extremety ED: Negative for edema, pulses abnormal or tenderness General Extremity: Negative for edema or pulses abnormal Neuro oriented x3, CN's II-XII intact bilaterally and no sensory deficits noted Sensorium / Orientation: awake and alert Motor Exam: strength 5/5 throughout Psych mental status grossly normal and thought process normal Skin no rashes or lesions noted and no wounds Lesions: no lesions Rashes: no rashes MDM MDM MDM Narrative Medical decision making narrative: Patient was given a dose of IM Reglan and she did have improvement but still had her headache. Also was given Afrin couple sprays to each nostril, which resolved her sinus pain, ruling against acute bacterial infection and she probably just had congestion due to her seasonal allergies and sinus plugging/pain. She last took an Imitrex around 12 or 14 hours ago now, so she was given a dose of Imitrex 6 mg subcutaneous prior to discharge home, follow-up recommended. Discharge Plan Triage Chief Complaint: Headache ED Provider: Luis Wilkerson Dx/Rx/DC Orders Clinical Impression: Headache, migraine, Acute seasonal allergic rhinitis Instructions: ED, Migraine (Classical) Prescriptions: No Action acetaminophen [Tylenol] 325 mg capsule 325 mg PO ONCE PRN (Reason: Pain 1-10 Or Fever) RF: 0 Adult Probiotic 3 billion cell capsule 3,000 mmu cells PO DAILY RF: 0 topiramate 25 MG tablet 200 mg PO BID RF: 0 medroxyprogesterone 150 MG/ML syringe 150 mg IM .[id number] RF: 0 citalopram 40 MG tablet 40 mg PO DAILY RF: 0 haloperidol 5 MG tablet 2.5 mg PO TID PRN (Reason: Anxiety) RF: 0 cholecalciferol (vitamin D3) 2,000 UNIT capsule 2,000 unit PO DAILY RF: 0 apixaban 5 MG tablet 5 mg PO BID RF: 0 lamotrigine 100 MG tablet 100 mg PO DAILY RF: 0 baclofen 20 MG tablet 10 - 20 mg PO TID PRN (Reason: Spasms) RF: 0 Primary Care Provider: Loretta Hermosillo Referrals: Loretta Hermosillo, DO [Primary Care Provider] - 3-5 Days if not improving Activity Restrictions/Additional Instructions: With regards to oxymetazoline nasal spray, use twice daily as needed, 2 sprays each nostril, no more than 3 days in a row then give yourself a break. Disposition Disposition: Home, self care
[2020-10-10] MEDS: Metoclopramide 10 MG/2 ML Vial IM (16:31)
[2020-10-10] MEDS: Oxymetazoline 0.05% 1 SPRAY SPRAY.BTL 2 SPRAY NASAL (16:32)
[2020-10-10] MEDS: SUMAtriptan 6 MG/0.5 ML Vial SC (18:23)
== END 2020-10-10 18:37 | disposition home or self-care (01) ==
PROVIDERS: Emergency Provider Emergency Medicine; PCP Family Medicine
DX: G43.909 Migraine, unspecified, not intractable, without status migrainosus (principal); J30.2 Other seasonal allergic rhinitis; D68.51 Activated protein C resistance; M54.9 Dorsalgia, unspecified; M54.2 Cervicalgia; G89.29 Other chronic pain; F17.200 Nicotine dependence, unspecified, uncomplicated; Z79.01 Long term (current) use of anticoagulants; Z79.3 Long term (current) use of hormonal contraceptives; Z79.899 Other long term (current) drug therapy
CPT/HCPCS: 96372; 99282; J3030

== ENCOUNTER → 2020-12-31 17:13 | Outpatient (CLI) | payer MEDICAID, SELFPAY ==
--- NOTE | 2020-12-31 17:14 | RAD_ITS ---
STUDY: X-RAY - LEFT FOOT CLINICAL: Female, 35 years old. injury, swelling TECHNIQUE: 3 view(s) of the foot. COMPARISON: None. FINDINGS: Normal talus, calcaneus, and tarsal bones. Normal visualized subtalar, talonavicular, calcaneocuboid, tarsal and tarsometatarsal articulations. Normal metatarsi. Normal metatarsophalangeal joint of the great toe. There is a bipartite tibial sesamoid. Normal interphalangeal joint of the great toe. Normal phalanges of the great toe. Normal second through fifth metatarsophalangeal joints. Normal interphalangeal joints and phalanges of the lesser toes. The soft tissue structures are unremarkable. RAD/Foot min 3 Views IMPRESSION: No fracture or malalignment. Electronically Signed: Bolivar Goldman MD (Brooks) at 17:38 EDT , Service support ,
--- NOTE | 2020-12-31 17:20 | RAD_ITS ---
STUDY: X-RAY - LEFT ANKLE REASON FOR EXAM: Female, 35 years old. injury , swelling TECHNIQUE: 3 view(s) of the ankle. COMPARISON: None. FINDINGS: Normal visualized distal tibia and fibula. Normal medial and lateral malleoli. Normal tibiotalar articulation and ankle mortise. Normal visualized talus and calcaneus. The visualized subtalar, talonavicular, calcaneocuboid and tarsal articulations are normal. The soft tissue structures are unremarkable. RAD/Ankle min 3 Views IMPRESSION: Normal x-ray examination of the ankle. Electronically Signed: Bolivar Goldman MD (Brooks) at 17:38 EDT , Service support ,
== END ==
PROVIDERS: PCP Family Medicine; Referring Provider Physician Assistant; Visit Provider Physician Assistant
DX: S99.912A Unspecified injury of left ankle, initial encounter (principal); S99.922A Unspecified injury of left foot, initial encounter; X58.XXXA Exposure to other specified factors, initial encounter; Y93.9 Activity, unspecified; Y92.9 Unspecified place or not applicable; Y99.9 Unspecified external cause status
CPT/HCPCS: 73610; 73630

== ENCOUNTER 2021-04-13 19:23 | Emergency (ER) | payer MEDICAID, SELFPAY ==
[2021-04-13 19:24] VITALS: BP 127/73; PULSE 84; RESP 16; TEMP 36.2; O2SAT 98; BMI 36.9
--- NOTE | 2021-04-13 20:29 | ED.VIS.BACK ---
HPI History of Present Illness Chief Complaint: Back Informant: patient Onset/Context/Timing Onset: Yesterday Timing: Waxes and wanes Quality: Aching and Throbbing Location: Lumbar (Left low lumbar) Current Severity: Moderate Maximum Severity: Moderate Associated Symptoms Associated Symptoms: Radiation to Left Leg Narrative Narrative: Patient presents secondary to low back pain. She has a history of low back pain. She has never required injections or surgery. She states yesterday it felt tight but this morning was little bit better. She did have a long ride in the car today and felt like her back tightened up. She reports having pain with any pressure on her back. She does note pain radiating down her left leg. No problems with bowel or bladder control. No fever. No new injury [facility] Medical History Chronic neck and back pain Factor 5 Leiden mutation, heterozygous Kidney stone Left ankle sprain Limb weakness Shoulder pain Sprain of left foot Home Medications medroxyprogesterone 150 mg IM .[id number] 01/30/15 [History Last Taken Unknown] topiramate 200 mg PO BID 01/30/15 [History Last Taken Unknown] citalopram 40 mg PO DAILY 04/04/19 [History Last Taken Unknown] haloperidol 2.5 mg PO TID PRN 04/04/19 [History Last Taken Unknown] apixaban 5 mg PO BID 06/03/20 [History Last Taken Unknown] baclofen 10 - 20 mg PO TID PRN 06/03/20 [History Last Taken Unknown] cholecalciferol (vitamin D3) 2,000 unit PO DAILY 06/03/20 [History Last Taken Unknown] lamotrigine 200 mg PO DAILY 06/03/20 [History Last Taken Unknown] acetaminophen 325 mg capsule 325 mg PO ONCE PRN 08/26/20 [History Last Taken Unknown] lactobacillus combination no.8 3 billion cell capsule 3,000 mmu cells PO DAILY 08/26/20 [History Last Taken Unknown] diclofenac sodium 1 ea TOPICAL TID 04/13/21 [History Last Taken Unknown] lidocaine [Lidoderm] 1 patch TOPICAL DAILY #6 ea 04/13/21 [Rx Last Taken Unknown] naproxen [Naprosyn] 500 mg PO BID PRN #20 tab 04/13/21 [Rx Last Taken Unknown] Allergy/AdvReac Type Severity Reaction Status Date / Time Penicillins Allergy unknown Verified 04/13/21 20:21 cephalexin monohydrate AdvReac WEAKNESS, Verified 04/13/21 20:21 [From Keflex] MUSCLE ACHES Family History Other Cancer Surgical History History of carpal tunnel release History of toe surgery Social History Smoking Status: Current every day smoker tobacco type: cigarettes alcohol intake: never ROS ROS ED Constitutional Constitutional ED: Denies chills or fever(s) Eyes Eyes: Denies change in vision ENT ENT ED: Denies sore throat Cardiovascular Cardiovascular: Denies chest pain Respiratory/Chest Respiratory/Chest: Denies cough or dyspnea Gastrointestinal Gastrointestinal: Denies abdominal pain, diarrhea, nausea or vomiting Genitourinary Genitourinary ED: Denies dysuria Musculoskeletal Musculoskeletal: Reports back pain Integumentary Denies rash Neurologic Neurologic: Reports paresthesias LLE; Denies headache(s) or weakness Allergic/Immunologic Allergic/Immunologic ED: Denies urticaria EXAM Physical Exam Const Vital Signs: 04/13/21 19:24 04/13/21 20:35 Temperature 97.2 F L 98.3 F Temperature Source Temporal Pulse Rate 84 89 Respiratory Rate 16 16 Blood Pressure 127/73 H 143/59 H Blood Pressure Mean 91 Pulse Ox 98 96 Oxygen Delivery Method Room Air Positive well nourished and well developed General Appearance ED: well developed HEENT Reports moist mucous membranes Eyes PERRL and EOMs intact bilaterally Neck supple Resp normal respiratory effort and clear to auscultation bilaterally Cardio regular rate and regular rhythm GI normal to inspection, nondistended, normoactive bowel sounds and soft to palpation Back/Spine Back/Spine Narrative: Tenderness palpation of the left low lumbar paraspinal muscles. No overlying skin change or erythema. Extremity normal to inspection Extremity Narrative: Good strength and sensation on testing of the lower extremities. Psych mental status grossly normal Skin no rashes or lesions noted MDM MDM MDM Narrative Medical decision making narrative: Patient is already on baclofen to help with muscle spasm. She is given naproxen and Lidoderm patches. Prescriptions for the same are reviewed. With no new injury do not believe imaging is needed. Discharge Plan Triage Chief Complaint: Back ED Provider: Monica Hernández Dx/Rx/DC Orders Clinical Impression: Back pain Instructions: ED Back Pain (Acute or Chronic) Prescriptions: New naproxen [Naprosyn] 500 mg tablet 500 mg PO BID PRN (Reason: pain) Qty: 20 RF: 0 lidocaine [Lidoderm] 5 % adhesive patch,medicated 1 patch topical DAILY Qty: 6 RF: 0 No Action acetaminophen [Tylenol] 325 mg capsule 325 mg PO ONCE PRN (Reason: Pain 1-10 Or Fever) RF: 0 Adult Probiotic 3 billion cell capsule 3,000 mmu cells PO DAILY RF: 0 topiramate 25 MG tablet 200 mg PO BID RF: 0 medroxyprogesterone 150 MG/ML syringe 150 mg IM .[id number] RF: 0 citalopram 40 MG tablet 40 mg PO DAILY RF: 0 haloperidol 5 MG tablet 2.5 mg PO TID PRN (Reason: Anxiety) RF: 0 cholecalciferol (vitamin D3) 2,000 UNIT capsule 2,000 unit PO DAILY RF: 0 apixaban 5 MG tablet 5 mg PO BID RF: 0 lamotrigine 100 MG tablet 200 mg PO DAILY RF: 0 baclofen 20 MG tablet 10 - 20 mg PO TID PRN (Reason: Spasms) RF: 0 diclofenac sodium 1 % gel 1 ea TOPICAL TID RF: 0 Primary Care Provider: Loretta Hermosillo Referrals: Loretta Hermosillo DO [Primary Care Provider] - 1 Week if not improving Disposition Disposition: Home, Self Care Discharge Date/Time: 04/13/21 20:44
[2021-04-13] MEDS: Naproxen 500 MG Tablet PO (20:33)
[2021-04-13] MEDS: Lidocaine 5% Patch 1 PATCH TOPICAL (20:33)
[2021-04-13 20:35] VITALS: BP 143/59; PULSE 89; RESP 16; TEMP 36.8; O2SAT 96
== END 2021-04-13 20:44 | disposition home or self-care (01) ==
LOC: ED 20:36
PROVIDERS: Emergency Provider Emergency Medicine; PCP Family Medicine
DX: M54.50 Low back pain, unspecified (principal); M62.830 Muscle spasm of back; M79.605 Pain in left leg; M54.2 Cervicalgia; G89.29 Other chronic pain; D68.51 Activated protein C resistance; F17.210 Nicotine dependence, cigarettes, uncomplicated; Z79.3 Long term (current) use of hormonal contraceptives; Z79.01 Long term (current) use of anticoagulants; Z79.1 Long term (current) use of non-steroidal anti-inflammatories (NSAID); Z79.899 Other long term (current) drug therapy
CPT/HCPCS: 99285

== ENCOUNTER → 2022-03-28 | Outpatient (CLI) | payer MEDICAID, SELFPAY ==
--- NOTE | 2022-03-28 13:52 | NEURO ---
NCS and/or EMG Patient Report Ordering Doctor: Les Mehta DATE OF SERVICE: 03/28/22 Indication: Numbness and tingling of the right fingertips. History of carpal tunnel syndrome status post release approximately 8 years ago. She reports initial improvement of symptoms followed by recurrence. Findings: Nerve conduction studies were performed in the right upper extremity. The right median motor study recording the abductor pollicis brevis showed a normal amplitude, prolonged distal latency and borderline conduction velocity. The right ulnar motor study recording the abductor digiti minimi showed a normal amplitude, normal distal latency and normal conduction velocity. No conduction block or focal slowing was present across the elbow. The right median sensory response recording digit two showed a normal amplitude, normal latency and mildly slowed conduction velocity. The right ulnar sensory response recording digit five showed a normal amplitude, latency and conduction velocity. The right radial sensory response recording over the extensor snuff box showed a normal amplitude, latency and conduction velocity. Right median-ulnar lumbrical / interosseous motor latencies showed a prolonged median latency compared to the ulnar. Needle EMG of the right upper extremity muscles was performed. No denervation was seen in any muscle. Motor units were slightly large in the abductor pollicis brevis, but was otherwise unremarkable. All motor unit morphology, activation and recruitment patterns were normal in the other examined muscles. Impression: This is an abnormal study. 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 The pathophysiology is predominantly demyelinating. These findings can be consistent with the clinical diagnosis of carpal tunnel syndrome. Please note, nerve conduction studies may never fully normalize, even after successful decompression. Finally, there is no electrophysiologic evidence of superimposed cervical radiculopathy. Esteban Whitaker D.O. Multi Select Codes Neurology Neurology Interp Codes: 13759-23 Musc test done w/n test comp (interp) and 56476-59 Nrv cndj tst 5-6 studies (interp)
== END | disposition home or self-care (01) ==
LOC: PSN 12:18
PROVIDERS: PCP Family Medicine; Referring Provider Orthopaedic Surgery; Visit Provider Orthopaedic Surgery
DX: M47.22 Other spondylosis with radiculopathy, cervical region (principal); R20.2 Paresthesia of skin
CPT/HCPCS: 95886; 95910

== ENCOUNTER 2022-05-06 23:21 | Emergency (ER) | payer MEDICAID, SELFPAY ==
--- NOTE | 2022-05-06 | RAD_ITS ---
INDICATION: pain EXAMINATION/TECHNIQUE: X-RAY - RIGHT XR Foot Min 3 Views 3 VIEWS COMPARISON: 12/31/2020 FINDINGS: SOFT TISSUES: No soft tissue swelling or gas. No radiopaque foreign body. BONES/JOINTS: No acute fracture or subluxation.. Normal alignment. Preservation of the joint space.. No sclerotic or destructive changes observed. RAD/Foot min 3 Views IMPRESSION: No acute fracture or dislocation. Electronically Signed: Samuel Schaefer MD at 0:17 EST ,
[2022-05-06 23:22] VITALS: BP 113/80; PULSE 85; RESP 16; TEMP 35.7; O2SAT 98; BMI 36.3
[2022-05-07] MEDS: Ketorolac 30 MG/ML Syringe IM (00:11)
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
--- NOTE | 2022-05-07 11:58 | ED.RN ---
Pt called and wanted Percocet Rx sent from [facility] to [facility] in [place]. Per pt [facility] said that her insurance will not cover it and [facility] will not let her pay out of pocket for the medication. Pt was advised that pharmacies are able to refuse to fill meds. She was also advised that Dr Saucedo is not here today and the other drs are not able to send a narcotic to another pharmacy without seeing the pt.
== END 2022-05-07 01:23 | disposition home or self-care (01) ==
PROVIDERS: Emergency Provider Emergency Medicine; PCP Family Medicine; Visit Provider Emergency Medicine
DX: S90.31XA Contusion of right foot, initial encounter (principal); D68.2 Hereditary deficiency of other clotting factors; X58.XXXA Exposure to other specified factors, initial encounter
CPT/HCPCS: 73630; 99282

== ENCOUNTER 2023-03-15 19:54 | Observation (INO) | payer MEDICAID, SELFPAY ==
[2023-03-15] VITALS (11 sets, daily range): BP systolic 110–135; BP diastolic 65–77; PULSE 64–97; RESP 12–19; TEMP 36.2–36.8; O2SAT 98–100; BMI 38.9; BMI 35.1
--- NOTE | 2023-03-15 20:27 | EKG12_ITS ---
Test Reason : DYSRHYTHMIA Blood Pressure : / mmHG Vent. Rate : 073 BPM Atrial Rate : 073 BPM P-R Int : 150 ms QRS Dur : 086 ms QT Int : 376 ms P-R-T Axes : 044 038 026 degrees QTc Int : 414 ms Normal sinus rhythm Normal ECG Confirmed by ALISON GEORGE, FELISA ([id number]), book editor ELI LAIRD ([id number]) on 03/17/2023 1:10:47 PM Referred By: Confirmed By:FELISA ROSAS MD
--- NOTE | 2023-03-15 20:27 | CT_ITS ---
INDICATION: Neuro deficit, acute, stroke suspected EXAMINATION: CT BRAIN - CT Head Stroke Protocol W/O Contrast Injection TECHNIQUE: Multiple axial images were obtained of the head without intravenous contrast. A radiation dose optimization technique was used for this scan. IV Contrast dosage and agent: None. COMPARISON: No relevant prior comparison study available FINDINGS: BRAIN PARENCHYMA: No intra- or extra-axial hemorrhage. No evidence of acute infarct. No intracranial mass or mass effect. There is preservation of the [place]/white matter interface. Posterior fossa structures are unremarkable. CSF SPACES: Appropriate for age. No hydrocephalus. Basal cisterns are patent. CALVARIUM, SKULL BASE, PARANASAL SINUSES AND MASTOID AIR CELLS: Clear. No discrete lytic or blastic abnormalities. ORBITS: Both globes, extraocular muscles, optic nerves and retrobulbar fat appear unremarkable. ASPECTS Score for Acute Strokes: 10 CT/STROKE Brain/Head without Cont IMPRESSION: Negative Brain CT without contrast. N.B. : The above Results were Read Back by Terrence Ruiz MD to Jeremy Gerard DO, and understanding confirmed on 03/15/2023 20:57:13 (ET). Electronically Signed: Terrence Ruiz MD at 20:58 EDT ,
--- NOTE | 2023-03-15 20:28 | CT_ITS ---
We are attempting to reach an attending provider to discuss findings. An addendum with communication details will be sent when the communication is complete. STUDY: CTA HEAD AND NECK WITH CONTRAST REASON FOR EXAM: Female, 37 years old. Neuro deficit, acute, stroke suspected RADIATION DOSAGE (If Supplied By Facility): CTDIvol = ( 18.03 ) mGy, DLP = ( 771.74 ) mGycm TECHNIQUE: CT angiography was performed with a multi-detector CT scanner. Data acquisition was obtained from the skull base through the vertex following intravenous administration of IV 100mL Isovue-370. MIP images were reconstructed from the axial data set. Post-processing of the angiographic images was performed, with multiplanar reformation and 3D reconstruction. Individualized dose optimization techniques were used for this CT. COMPARISON: No relevant priors. FINDINGS: Normal bilateral petrous carotid arteries. Normal right cavernous carotid artery with a normal supraclinoid bifurcation. Normal left cavernous carotid artery with a normal supraclinoid bifurcation. Normal right A1 segments of the anterior cerebral artery. Normal left A1 segments of the anterior cerebral artery. Normal intact anterior communicating artery (ACOM). Normal bilateral A2 segments of the anterior cerebral arteries. Normal right M1 and M2 segments of the middle cerebral arteries, with a normal M1 bifurcation. Normal left M1 and M2 segments of the middle cerebral arteries, with a normal M1 bifurcation. Normal right posterior communicating artery (PCOM). Normal left posterior communicating artery (PCOM). Normal bilateral vertebral arteries. Normal basilar artery with a normal basilar bifurcation. The visualized bilateral superior cerebellar (SCA) arteries are normal. Normal bilateral P1, P2 and visualized P3 segments of the posterior cerebral arteries. There is no demonstrated aneurysm of the [place]. There is no demonstrated abnormality of the visualized brain. AORTIC ARCH: Normal visualized aortic arch. Normal origins of the brachiocephalic, left common carotid, and left subclavian arteries. RIGHT CAROTID ARTERIES: Normal right common carotid artery (CCA). Normal right common carotid bulb. Normal origin of the right internal carotid (ICA) artery without a hemodynamically significant stenosis. Normal visualized cervical portion of the right internal carotid artery. Normal origin of the right external carotid artery (ECA). LEFT CAROTID ARTERIES: Normal left common carotid artery (CCA). Normal left common carotid bulb. Normal origin of the left internal carotid (ICA) artery without a hemodynamically significant stenosis. Normal visualized cervical portion of the left internal carotid artery. Normal origin of the left external carotid artery (ECA). VERTEBRAL ARTERIES: Normal bilateral vertebral arteries. CT/STROKE CTA Head AND Neck W/Con IMPRESSION: Normal CTA Head and neck with contrast. Electronically Signed: Terrence Ruiz MD at 21:03 EDT ,
[2023-03-15 20:38] LABS: Absolute Lymphocyte Count 2.26 X10^3/uL (0.83-4.51); Absolute Neutrophil Count 4.1 X10^3/uL (2.0-7.7); Basophil# 0.04 X10^3/uL; Basophil% 0.6 % (0-1); Eosinophil# 0.06 X10^3/uL; Eosinophils% 0.9 % (0-5); Hematocrit 37.6 % (37-47); Hemoglobin 12.3 g/dL (12.0-15.0); Lymphocyte # 2.26 X10^3/ul (0.83-4.51); Lymphocyte % 32.9 % (19-41); Mean Corp Hgb Conc 32.7 g/dL (32-36); Mean Corpuscular Hgb 30.9 pg (27.0-32.0); Mean Corpuscular Volume 94.5 fL (81-99); Mean Platelet Vol. 10.2 fl (6.2-12.0); Monocyte# 0.43 X10^3/uL; Monocyte% 6.3 % (0-10); NRBC Flagged by Analyzer 0 % (0-5); Neutrophil # 4.06 X10^3/uL (2.7-7.7); Platelet Count 192 K/mm3 (150-450); RBC Distribution Width CV 13.7 % (11.6-14.6); RBC Distribution Width SD 47.6 fl (35.1-43.9); Red Blood Count 3.98 M/mm3 (4.2-5.4); White Blood Count 6.9 K/mm3 (4.4-11.0)
--- NOTE | 2023-03-15 20:38 | ED.VIS.STROK ---
HPI History of Present Illness Chief Complaint: Weakness Informant: patient Narrative Narrative: Brought in by EMS sudden weakness at work reported confusion and being out of it. Patient with history of pulmonary embolism on Eliquis last dose this morning. She takes her typical second dose before bedtime. She went to work at 5 PM she works till 1 AM. She states she felt well going to work. She had anterior cervical fusion of her neck to the end of November due to right-sided arm pain. She denies cough. Denies vomiting diarrhea. Denies any urinary symptoms. Denies any alcohol use. Denies any recreational drug use. She is chronic back pain for which she uses patches. No pain medications. Blood glucose 102 by EMS. No previous similar symptoms. PFSH PFSH Medical History Anxiety and depression Chronic migraine Chronic neck and back pain Factor 5 Leiden mutation, heterozygous History of nephrolithiasis History of venous thromboembolism Obesity Tobacco use Home Medications medroxyprogesterone 150 mg/mL intramuscular syringe 150 mg IM .[id number] 01/30/15 [History Last Taken Unknown] topiramate 25 mg tablet 200 mg PO BID 01/30/15 [History Last Taken Unknown] citalopram 40 mg tablet 40 mg PO DAILY 04/04/19 [History Last Taken Unknown] haloperidol 5 mg tablet 2.5 mg PO TID PRN Anxiety 04/04/19 [History Last Taken Unknown] apixaban 5 mg tablet 5 mg PO BID 06/03/20 [History Last Taken Unknown] baclofen 20 mg tablet 10 - 20 mg PO TID PRN Spasms 06/03/20 [History Last Taken Unknown] cholecalciferol (vitamin D3) 50 mcg (2,000 unit) capsule 2,000 unit PO DAILY 06/03/20 [History Last Taken Unknown] acetaminophen 325 mg capsule (Tylenol) 325 mg PO ONCE PRN Pain 1-10 Or Fever 08/26/20 [History Last Taken Unknown] lidocaine 5 % topical patch (Lidoderm) 1 patch topical DAILY #6 ea 04/13/21 [Rx Last Taken Unknown] albuterol sulfate 90 mcg/actuation aerosol inhaler 2 puff inhalation Q6H PRN CONGESTION/ALLERGIES 03/15/23 [History Last Taken Unknown] cetirizine 10 mg tablet 10 mg PO .DAILY AM 03/15/23 [History Last Taken Unknown] famotidine 40 mg tablet 40 mg PO Q12H 03/15/23 [History Last Taken Unknown] lamotrigine 200 mg tablet 200 mg PO DAILY 03/15/23 [History Last Taken Unknown] montelukast 10 mg tablet 10 mg PO QHS 03/15/23 [History Last Taken Unknown] sumatriptan succinate 100 mg tablet 100 mg PO Q2H PRN migraine headache 03/15/23 [History Last Taken Unknown] triamcinolone acetonide 55 mcg nasal spray aerosol 2 spray intranasal DAILY 03/15/23 [History Last Taken Unknown] Allergy/AdvReac Type Severity Reaction Status Date / Time acetaminophen [From [place]] Allergy Itching Verified 03/15/23 20:03 hydrocodone [From [place]] Allergy Itching Verified 03/15/23 20:03 cephalexin monohydrate AdvReac WEAKNESS, Verified 03/15/23 20:03 [From Keflex] MUSCLE ACHES PERCOCET AdvReac Intermediate Itching Uncoded 03/15/23 20:03 Family History Other Cancer Surgical History History of carpal tunnel release History of toe surgery S/P cervical spinal fusion Social History Smoking Status: Current every day smoker tobacco type: cigarettes and smokeless tobacco alcohol intake: never ROS ROS ED Constitutional Constitutional ED: Denies chills, fever(s) or sweats Eyes Eyes: Denies change in vision ENT ENT ED: Denies dysphagia or sore throat Cardiovascular Cardiovascular: Denies chest pain, leg edema, palpitations or racing heartbeat Respiratory/Chest Respiratory/Chest: Denies cough, dyspnea or dyspnea on exertion Gastrointestinal Gastrointestinal: Denies abdominal pain, diarrhea, nausea or vomiting Genitourinary Genitourinary ED: Denies dysuria, hematuria or urinary frequency Musculoskeletal Musculoskeletal: Denies back pain, extremity pain or neck pain Integumentary Denies rash or wounds Neurologic Neurologic: Reports weakness EXAM Physical Exam Const Vital Signs: 03/15/23 19:57 03/15/23 20:27 03/15/23 20:27 Temperature 97.1 F L Temperature Source Temporal Pulse Rate 96 95 Respiratory Rate 15 16 Blood Pressure 115/77 132/76 H Blood Pressure Mean 89 94 Pulse Ox 100 100 Oxygen Delivery Method Room Air Room Air Room Air 03/15/23 20:42 03/15/23 20:59 03/15/23 21:14 Temperature Temperature Source Pulse Rate 97 94 95 Respiratory Rate 19 H 17 14 Blood Pressure 132/76 H 123/77 H 123/77 H Blood Pressure Mean 94 92 92 Pulse Ox 100 100 99 Oxygen Delivery Method Room Air Room Air Room Air Positive well nourished and well developed Constitutional Narrative: Patient little slow on answering. General Appearance ED: well developed and NAD HEENT Reports moist mucous membranes normocephalic and atraumatic Nose: other Other Details: Slight left lip droop. Eyes PERRL, EOMs intact bilaterally and conjunctivae normal General Eye ED: Yes normal appearance of both eyes Neck no lymphadenopathy and supple Neck Narrative: Healing anterior lower neck wound. General: Negative for tenderness Chest Wall Chest: Negative for tenderness Resp normal respiratory effort and normal air movement Effort and Inspection: symmetric chest movement; Negative for respiratory distress Cardio regular rate, regular rhythm and no murmurs Peripheral Pulses: pulses 2+ throughout GI normal to inspection, nondistended, normoactive bowel sounds and non-tender Palpation: Negative for guarding or rebound tenderness present Back/Spine no CVA tenderness and no thoracic nor lumbar tenderness Extremity normal to inspection General Extremety ED: Negative for edema or tenderness General Extremity: Negative for edema Neuro oriented x3 and no sensory deficits noted Neuro Narrative: NIH of 1 for slight left lip droop. Normal cerebellar upper and lower. Sensorium / Orientation: awake and alert Skin Skin Narrative: See above NIHSS NIHSS Initial: 1a Level of Consciousness: 0 1c LOC Commands (Only score 1st attempt): 0 2 Best Gaze (If aphasic, use reflexive mvmts.): 0 3 Visual: 0 4 Facial Palsy: 1 5 Motor Arm Right (UN = amputation/fusion): 0 5 Motor Arm Left: 0 6 Motor Leg Right: 0 6 Motor Leg Left: 0 7 Limb ataxia (Only + if out of proportion): 0 8 Sensory (Aphasia/stupor=0 or 1, coma=2): 0 9 Best Language: 0 10 Dysarthria (mute, coma=2, intubated=UN): 0 11 Extinction and Inattention (only scored if +): 0 Total Score: 1 MDM MDM MDM Narrative Medical decision making narrative: Interventions / MDM: Differential diagnosis: Diagnosis considered but do not suspect: N/A My EKG interpretation: Sinus rate of 73, no ST or T wave changes. Imaging independently reviewed and interpreted by myself: CT brain: No acute process also read by radiology. CT angiogram of head and neck: No acute process. External documents reviewed: N/A Test considered but not ordered:N/A ED course: Patient reporting sudden generalized weakness slight confusion she is slow to respond is not her typical. Neuro exam NIH of 1 for slight left lip droop which is new. She is on Eliquis last dose this morning along with cervical fusion performed little over 3 months ago. Due to cute onset of symptoms less than 3 and half hours ago stroke team was activated. CT head CT angiogram head and neck ordered. She not likely TNK candidate due to her Eliquis medication. 2054: Spoke with stroke neurologist on the case monitor, agrees could be a very small stroke with her on Eliquis however she is not a TNK candidate. Recommends admission for stroke work-up. Also received a call from radiology for both CT head and CTA head and neck are both negative at this time. Toxicology screen negative alcohol negative. UA with leukocytes. Not symptomatic. Urine culture sent. EKG sinus rhythm. I discussed with hospitalist Dr. Ponce for admission. Re-evaluation: stable Disposition discussed with patient/family/significant other: Patient Case discussed with consulting clinician: Stroke neurology, hospitalist This note was generated with [employer] dictation software. It may contain incorrect words, spelling, and punctuation that were not noted in checking the note before signing. Lab Data Labs: Laboratory Results - last 24 hr 03/15/23 03/15/23 03/15/23 19:45 20:40 20:45 WBC 6.9 RBC 3.98 L Hgb 12.3 Hct 37.6 MCV 94.5 MCH 30.9 MCHC 32.7 RDW Std Deviation 47.6 H RDW Coeff of Sharmin 13.7 Plt Count 192 MPV 10.2 Immature Gran % (Auto) 0.300 Neut % (Auto) 59.0 Lymph % (Auto) 32.9 [place] % (Auto) 6.3 Eos % (Auto) 0.9 Baso % (Auto) 0.6 Absolute Neuts (auto) 4.1 Absolute Lymphs (auto) 2.26 Nucleated RBC % 0 PT 15.5 H INR 1.2 APTT 33.7 Sodium 140 Potassium 3.0 L Chloride 112 H Carbon Dioxide 23.0 Anion Gap 5 BUN 10 Creatinine 0.88 Estim Creat Clear Calc 73.11 Est GFR (MDRD) Af Amer 94 Est GFR (MDRD) Non-Af 77 BUN/Creatinine Ratio 11.4 Glucose 106 Calcium 9.4 Magnesium 2.3 Troponin I High Sens 6 Urine Color Yellow Urine Clarity Clear Urine pH 7.0 Ur Specific [place] 1.010 Urine Protein Negative Urine Glucose (UA) Normal Urine Ketones Negative Urine Occult Blood Negative Urine Nitrite Negative Urine Bilirubin Negative Urine Urobilinogen Normal Ur Leukocyte Esterase 100 H Urine RBC 0 SEEN Urine WBC 0-5 SEEN Ur Squamous Epith Cells 5-10 SEEN Urine Bacteria 0 SEEN Urine Mucus 0 SEEN Urine Opiates Screen NEGATIVE Urine Methadone Screen NEGATIVE Ur Barbiturates Screen NEGATIVE Ur Phencyclidine Scrn NEGATIVE Ur Amphetamines Screen NEGATIVE MDMA (Ecstasy) Screen NEGATIVE U Benzodiazepines Scrn NEGATIVE Urine Cocaine Screen NEGATIVE U Cannabinoids Screen NEGATIVE Ur Drug Screen Comment Ethyl Alcohol < 3.0 Radiography Diagnostic Testing: Clinical Impression(s) from Imaging Studies Brain CT 03/15/23 20:27 IMPRESSION: Negative Brain CT without contrast. N.B. : The above Results were Read Back by Terrence Ruiz MD to Jeremy Gerard DO, and understanding confirmed on 03/15/2023 20:57:13 (ET). Electronically Signed: Terrence Ruiz MD at 20:58 EDT Reading Location ID and State: [facility] / [place] , Service support , ADDENDUM: 03/15/232104 IMPRESSION: Negative Brain CT without contrast. N.B. : The above Results were Read Back by Terrence Ruiz MD to Jeremy Gerard DO, and understanding confirmed on 03/15/2023 20:57:13 (ET). Electronically Signed: Terrence Ruiz MD at 20:58 EDT Reading Location ID and State: [facility] / [place] , Service support , Head/Neck CTA 03/15/23 20:28 IMPRESSION: Normal CTA Head and neck with contrast. Electronically Signed: Terrence Ruiz MD at 21:03 EDT , ADDENDUM: 03/15/231 IMPRESSION: Normal CTA Head and neck with contrast. N.B. : The above Results were Read Back by Terrence Ruiz MD to Jeremy Gerard DO, and understanding confirmed on 03/15/2023 21:04:56 (ET). Electronically Signed: Terrence Ruiz MD at 21:03 EDT , Chest X-Ray 03/15/23 21:14 IMPRESSION: Normal x-ray examination of the chest. 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
[2023-03-15 20:50] LABS: Bacteria 0 SEEN /hpf (None Seen); Mucous, Urine 0 SEEN /hpf (<or=2+); Red Blood Cells-Urine 0 SEEN /hpf (0-5)
[2023-03-15 20:52] LABS: Color, Urine Yellow (Yellow); Glucose, Dipstick Normal (Normal); Ketone-Dipstick Negative (Negative); Leukocyte Esterase-Dipstick 100 /ul (Negative); Nitrite-Dipstick Negative (Negative); Occult Blood-Urine Negative /ul (Negative); Protein-Dipstick Negative (Negative); Urine Bilirubin Dipstick Negative (Negative); Urine Clarity Clear (Clear); Urine Urobilinogen Normal (Normal)
[2023-03-15 20:54] LABS: Partial Thromboplast Time 33.7 Seconds (24.1-36.2)
[2023-03-15 20:57] LABS: International Normalized Ratio 1.2; Prothrombin Time (Protime)PT. 15.5 SECONDS (11.7-14.9)
[2023-03-15 20:58] LABS: Anion Gap 5 (5-15); BUN 10 mg/dL (7-18); BUN/Creat Ratio 11.4 RATIO (10-20); Calcium,Total 9.4 mg/dL (8.5-10.1); Chloride 112 mmol/L (98-107); Creatinine, Serum 0.88 mg/dL (0.55-1.02); EST Glomerular Filtration Rate 77 mL/min (>60); Est Glom Filt Rate - Afr Amer 94 mL/min (>60); Estimated Creatinine Clearance 73.11 ml/min; Glucose 106 mg/dL (74-106); Sodium Level 140 mmol/L (136-145); Troponin-I HS 6 pg/mL (3.0-54.0)
[2023-03-15 21:05] LABS: Squamous Epithelial Cells - UA 5-10 SEEN /hpf (5-10); White Blood Cells 0-5 SEEN /hpf (0-5)
[2023-03-15 21:12] LABS: Alcohol, Blood (Medical)-Serum < 3.0 mg/dL
--- NOTE | 2023-03-15 21:14 | RAD_ITS ---
STUDY: X-RAY CHEST REASON FOR EXAM: Female, 37 years old. Neuro deficit, acute, stroke suspected TECHNIQUE: Single AP portable view of the chest. COMPARISON: 06/24/2019. FINDINGS: The lungs are clear and expanded. There is no demonstrated pleural abnormality. Normal size heart. Normal mediastinum and greg. Normal visualized pulmonary arteries. Normal visualized aortic arch and descending thoracic aorta. Normal visualized thoracic spine. Normal visualized ribs, clavicles, and shoulders. There is no demonstrated abnormality of the visualized soft tissue structures of the upper abdomen. RAD/Chest 1 View IMPRESSION: Normal x-ray examination of the chest. Electronically Signed: Terrence Ruiz MD at 21:41 EDT ,
--- NOTE | 2023-03-15 21:28 | PCM.HP.STD ---
HPI - General General Date of Admission: 03/15/23 Date of Service: 03/15/23 Chief Complaint: Confusion, weakness, L facial droop (mild). HPI Narrative The patient is a 37 y/o F w/ PMHx: Chronic migraines, Obesity, Chronic neck and back pain with associated radiculopathy, Hx VTE (DVT, PE) with Factor V Leiden mutation/heterozygous on chronic eliquis regimen, Tobacco use, Anxiety and Depression/Suspected Bipolar disorder who presents to the [facility] ED on 03/15/23 with history of sudden weakness and confusion reported at work apparently going in at 5 PM and normally working till 1 AM feeling well when she did go into work with her chronic discomfort in her neck as well as right upper extremity radiculopathy with history of anterior cervical fusion at the end of November but given the oddity prompted work to call EMS for evaluation. In the ED initial NIH stroke scale noted to be 1 for slight left facial droop with appropriate orientation no other focal deficit reported. Given the fact that symptoms occurred less than 3 and half hours prior the stroke team had been initiated and her last dose of Eliquis was reported in the morning. Stroke neurologist reported possibly it could be a small stroke especially given Eliquis and she would not be a candidate for TNK. Patient does note that she has been out of her topamax since monday and does have a refill waiting to be picked up. She notes she has been having migraines since she has not had this regimen. Work-up in the ED included T97.1, heart rate 96, BP initially 115/77 with most recent repeat 132/76, respiratory rate 16, 100% room air, CBC with WC 6.9, hemoglobin 12.3, platelet 192 without marked shift, coags with PT 15.5 otherwise not marked appearing, BMP with potassium 3.0, chloride 112 otherwise not marked appearing, troponin 6, urinalysis with specific IV 1.010, nitrate negative, leukocyte Estrace 100 and otherwise unremarkable with no obvious evidence of UTI, urine drug screen pending upon requested evaluation of patient, ethyl alcohol less than 3, CT of the brain with no acute intracranial findings, CTA head and neck with no acute findings but final read in the computer pending, EKG SR without acute evidence of ischemia. [facility] Medical History Anxiety and depression Chronic migraine Chronic neck and back pain Factor 5 Leiden mutation, heterozygous History of nephrolithiasis History of venous thromboembolism Obesity Tobacco use Home Medications medroxyprogesterone 150 mg/mL intramuscular syringe 150 mg IM .[id number] 01/30/15 [History Last Taken Unknown] topiramate 25 mg tablet 200 mg PO BID 01/30/15 [History Last Taken Unknown] citalopram 40 mg tablet 40 mg PO DAILY 04/04/19 [History Last Taken Unknown] haloperidol 5 mg tablet 2.5 mg PO TID PRN Anxiety 04/04/19 [History Last Taken Unknown] apixaban 5 mg tablet 5 mg PO BID 06/03/20 [History Last Taken Unknown] baclofen 20 mg tablet 10 - 20 mg PO TID PRN Spasms 06/03/20 [History Last Taken Unknown] cholecalciferol (vitamin D3) 50 mcg (2,000 unit) capsule 2,000 unit PO DAILY 06/03/20 [History Last Taken Unknown] acetaminophen 325 mg capsule (Tylenol) 325 mg PO ONCE PRN Pain 1-10 Or Fever 08/26/20 [History Last Taken Unknown] lidocaine 5 % topical patch (Lidoderm) 1 patch topical DAILY #6 ea 04/13/21 [Rx Last Taken Unknown] albuterol sulfate 90 mcg/actuation aerosol inhaler 2 puff inhalation Q6H PRN CONGESTION/ALLERGIES 03/15/23 [History Last Taken Unknown] cetirizine 10 mg tablet 10 mg PO .DAILY AM 03/15/23 [History Last Taken Unknown] famotidine 40 mg tablet 40 mg PO Q12H 03/15/23 [History Last Taken Unknown] lamotrigine 200 mg tablet 200 mg PO DAILY 03/15/23 [History Last Taken Unknown] montelukast 10 mg tablet 10 mg PO QHS 03/15/23 [History Last Taken Unknown] sumatriptan succinate 100 mg tablet 100 mg PO Q2H PRN migraine headache 03/15/23 [History Last Taken Unknown] triamcinolone acetonide 55 mcg nasal spray aerosol 2 spray intranasal DAILY 03/15/23 [History Last Taken Unknown] Allergy/AdvReac Type Severity Reaction Status Date / Time acetaminophen [From [place]] Allergy Itching Verified 03/15/23 20:03 hydrocodone [From [place]] Allergy Itching Verified 03/15/23 20:03 cephalexin monohydrate AdvReac WEAKNESS, Verified 03/15/23 20:03 [From Keflex] MUSCLE ACHES PERCOCET AdvReac Intermediate Itching Uncoded 03/15/23 20:03 Family History (Updated 03/16/23 @ 02:[address] Bridgett Ponce MD) Mother Heart disease CVA (cerebral vascular accident) Diabetes Father No problems noted. Surgical History History of carpal tunnel release History of toe surgery S/P cervical spinal fusion Social History (Updated 03/16/23 @ 02:[address] Bridgett Ponce MD) household members: other details: Lives in her home with her 3 children, youngest 9. Smoking Status: Current every day smoker tobacco type: cigarettes Smoking packs per day: 1 Smoking cigarettes per day: 20.0 and smokeless tobacco alcohol intake: never substance use type: does not use ROS ROS Narrative Admission Review of Systems: CONSTITUTIONAL: No weight loss, fever, chills, + weakness or fatigue. HEENT: + Headaches. Eyes: No visual loss, blurred vision, double vision or yellow sclerae. Ears, Nose, Throat: No hearing loss, sneezing, congestion, runny nose or sore throat. SKIN: No rash or itching, lesions, wounds. CARDIOVASCULAR: No chest pain, chest pressure or chest discomfort, palpitations, edema, orthopnea, syncopal events. RESPIRATORY: No shortness of breath, cough or sputum, wheezing, hemoptysis. GASTROINTESTINAL: No anorexia, nausea, vomiting or diarrhea, abdominal pain, melena, BRBPR. GENITOURINARY: No dysuria, frequency, urgency or retention. NEUROLOGICAL: + Mild left-sided facial droop and transient confusion with chronic history of neck/back pain status post recent cervical fusion with right-sided radiculopathy and some weakness which is unchanged, headaches with chronic migraines. No dizziness, syncope, paralysis, ataxia, change in bowel or bladder control, seizure. MUSCULOSKELETAL: + muscle, back pain, joint pain or stiffness. HEMATOLOGIC: + Easy bleeding or bruising. LYMPHATICS: No enlarged nodes. No history of splenectomy. PSYCHIATRIC: + history of depression or anxiety. ENDOCRINOLOGIC: No reports of sweating, cold or heat intolerance. No polyuria or polydipsia. ALLERGIES: No history of asthma, hives, eczema or rhinitis. Vital Signs Vital Signs Vital Signs: 03/15/23 19:57 03/15/23 20:27 03/15/23 20:27 Temperature 97.1 F L Temperature Source Temporal Pulse Rate 96 95 Respiratory Rate 15 16 Blood Pressure 115/77 132/76 H Blood Pressure Mean 89 94 Pulse Ox 100 100 Oxygen Delivery Method Room Air Room Air Room Air Weight Weight: 220 lb 3.869 oz Body Mass Index (BMI) 38.9 Physical Exam Narrative Physical Examination: General: Awake, alert, oriented x 3 and cooperative, seated upright in the ED bed, very minimal left-sided facial droop that corrects with smile, feels much more toward her baseline currently and not confused or foggy. Skin: Normal color, normal turgor, no icterus, no cyanosis. HEENT: AT/NC, EOMI, PERRLA, moderately dry MM, no carotid bruits or JVD noted. Lungs: CTA bilaterally, moderate effort, mild decrease BL bases, no rales, ronchi or wheezing. Heart: Regular rate and rhythm; no gallop, rub audible. Abdomen: Soft, obese, NTTP, ND, normal BS, no HSM. Extremities: No cyanosis, clubbing, or edema. Neurological: Patient awake, alert, oriented as noted, cognitive function improved, appears now baseline intact; pupils equally reactive to light and accommodation, cranial nerves grossly normal except for very mild left-sided facial droop/flattening of the nasolabial fold but corrects with smile, moving all 4 extremities, no focal deficits, strength preserved, FTN and HTS appropriate, negative Babinski, sensation intact. Psychiatric: Affect appears fatigued otherwise normal, no acute evidence of depressive or anxiety feelings. Results Lab / Micro Data 03/15/23 19:45 03/15/23 19:45 Labs: Laboratory Results - last 24 hr 03/15/23 19:45: WBC 6.9, RBC 3.98 L, Hgb 12.3, Hct 37.6, MCV 94.5, MCH 30.9, MCHC 32.7, RDW Std Deviation 47.6 H, RDW Coeff of Sharmin 13.7, Plt Count 192, MPV 10.2, Immature Gran % (Auto) 0.300, Neut % (Auto) 59.0, Lymph % (Auto) 32.9, Hanson % (Auto) 6.3, Eos % (Auto) 0.9, Baso % (Auto) 0.6, Absolute Neuts (auto) 4.1, Absolute Lymphs (auto) 2.26, Nucleated RBC % 0, PT 15.5 H, INR 1.2, APTT 33.7, Sodium 140, Potassium 3.0 L, Chloride 112 H, Carbon Dioxide 23.0, Anion Gap 5, BUN 10, Creatinine 0.88, Estim Creat Clear Calc 73.11, Est GFR (MDRD) Af Amer 94, Est GFR (MDRD) Non-Af 77, BUN/Creatinine Ratio 11.4, Glucose 106, Calcium 9.4, Troponin I High Sens 6 03/15/23 20:40: Urine Color Yellow, Urine Clarity Clear, Urine pH 7.0, Ur Specific [place] 1.010, Urine Protein Negative, Urine Glucose (UA) Normal, Urine Ketones Negative, Urine Occult Blood Negative, Urine Nitrite Negative, Urine Bilirubin Negative, Urine Urobilinogen Normal, Ur Leukocyte Esterase 100 H, Urine RBC 0 SEEN, Urine WBC 0-5 SEEN, Ur Squamous Epith Cells 5-10 SEEN, Urine Bacteria 0 SEEN, Urine Mucus 0 SEEN, Ur Drug Screen Comment 03/15/23 20:45: Ethyl Alcohol < 3.[address] 03/15/23 20:27 IMPRESSION: Negative Brain CT without contrast. N.B. : The above Results were Read Back by Terrence Ruiz MD to Jeremy Gerard DO, and understanding confirmed on 03/15/2023 20:57:13 (ET). Electronically Signed: Terrence Ruiz MD at 20:58 EDT , ADDENDUM: 03/15/232104 IMPRESSION: Negative Brain CT without contrast. N.B. : The above Results were Read Back by Terrence Ruiz MD to Jeremy Gerard DO, and understanding confirmed on 03/15/2023 20:57:13 (ET). Electronically Signed: Terrence Ruiz MD at 20:58 EDT , Head/Neck CTA 03/15/23 20:28 IMPRESSION: Normal CTA Head and neck with contrast. Electronically Signed: Terrence Ruiz MD at 21:03 EDT , ADDENDUM: 03/15/231 IMPRESSION: Normal CTA Head and neck with contrast. N.B. : The above Results were Read Back by Terrence Ruiz MD to Jeremy Gerard DO, and understanding confirmed on 03/15/2023 21:04:56 (ET). Electronically Signed: Terrence Ruiz MD at 21:03 EDT , Assessment & Plan Assessment/Plan (1) TIA (transient ischemic attack): PLAN: Plan The patient is a 37 y/o F w/ PMHx: Obesity, Chronic neck and back pain with associated radiculopathy, Hx VTE (DVT, PE) with Factor V Leiden mutation/heterozygous on chronic eliquis regimen, Tobacco use, Anxiety and Depression/Suspected Bipolar disorder who presents to the [facility] ED on 03/15/23 with history of sudden weakness and confusion reported at work apparently going in at 5 PM and normally working till 1 AM feeling well when she did go into work with her chronic discomfort in her neck as well as right upper extremity radiculopathy with history of anterior cervical fusion at the end of November but given the oddity prompted work to call EMS for evaluation. #1. Transient confusion as well as concern for left-sided mild facial droop concerning for TIA/CVA versus Higher suspicion Complex migraine w/ Hx migraines, recently ran out of her topamax regimen: Will admit to PCU, will obtain MRI Brain, of note urine drug screen and ethyl alcohol level pending upon requested evaluation of patient, will obtain ECHO, PT/OT/Speech/Nutrition evaluation per protocol. Will allow permissive HTN, maintain on asa, continue home Eliquis regimen, will add high-dose statin pending further evaluation w/ AM FLP, fall precautions. Mag, TSH, FLP, HgbA1c requested. Maintain on fall and aspiration precautions. Once work-up obtained low threshold to obtain Neurology consultation if ongoing symptoms with currently higher suspicion for complex migraine. Will restart patient home topamax regimen which she had recently ran out of, of note. #2. Hypokalemia: Admission K+ 3.0, magnesium level requested, supplementation given, repeat level in AM. #3. Hx VTE (DVT, PE) with Factor V Leiden mutation/heterozygous: Patient on chronic eliquis regimen, last dose earlier in the day, will continue. #4. Anxiety and Depression/Suspected Bipolar disorder: We will continue patient home lamotrigine, citalopram and given confusion low threshold to hold low-dose as needed Haldol which reportedly is used for patient's severe anxiety. Lamotrigine level requested. #5. Chronic neck and back pain with associated radiculopathy: Maintain on fall precautions, PT/OT consulted per protocol given #1, will continue patient chronic Lidoderm patches as well as pain regimen as long as patient's not sedate or confused but low threshold to hold given evaluation for #1 is noted. #6. Tobacco Abuse: Encouraged cessation, inpatient consultation per RT, NR if desired. #7. Obesity: Weight loss and lifestyle changes encouraged. #8. DVT prophylaxis: We will continue patient home Eliquis regimen. Charges/Coding Visit Charges Inpatient E&M: 34814 Init Hosp L3
[2023-03-15 21:33] LABS: Amphetamine Urine VISTA NEGATIVE (<1000 ng/mL); Barbiturate Urine VISTA NEGATIVE (< 200 ng/mL); Benzodiazepine Urine VISTA NEGATIVE (< 200 ng/mL); Cocaine Urine VISTA NEGATIVE (< 300 ng/mL); Ecstacy Urine VISTA NEGATIVE (< 500 ng/mL); Methadone Urine VISTA NEGATIVE (< 300 ng/mL); PCP Urine VISTA NEGATIVE (< 25 ng/mL); THC Urine VISTA NEGATIVE (< 50 ng/mL); Vista UDS pH Range 6
[2023-03-15 21:51] LABS: Magnesium 2.3 mg/dL (1.6-2.6)
--- NOTE | 2023-03-15 22:31 | ECHOD_ITS ---
Reason For Study: TIA/CVA Procedure This was a 2D Doppler, Color Flow transthoracic echocardiogram. Exam performed portable in patient room. Left Ventricle Normal LV size. Left ventricular systolic function is normal. The estimated ejection fraction is 60 %. No regional wall motion abnormalities noted. Right Ventricle Normal RV size. Normal systolic function. Atria Normal left atrium. Normal right atrium. Bubble contrast study negative for right to left interatrial shunt. Mitral Valve Normal mitral valve. Tricuspid Valve Normal tricuspid valve. Mild tricuspid valve insufficiency. Aortic Valve Normal aortic valve. Pulmonic Valve Normal pulmonic valve. Great Vessels Normal aortic root. The pulmonary artery is normal size. Normal inferior vena cava. Pericardium/Pleural No pericardial effusion. Medication Performed a rapid injection of agitated mix of 9 cc saline and 1cc air to assess for atrial septal defect. MMode/2D Measurements & Calculations LVIDd: 4.9 cm IVSd: 0.68 cm Ao root diam: 2.8 cm LVIDs: 3.4 cm LVPWd: 1.0 cm RVDd: 3.5 cm FS: 29.7 % LAV(MOD-bp): 45.1 ml LVAd ap4: 31.8 cm2 SV(MOD-sp4): 68.7 ml LAV(MOD-bp) Indexed: 22.4 ml/m2 LVLd ap4: 7.2 cm LAV(MOD-sp2): 46.4 ml EDV(MOD-sp4): 115.5 ml LAV(MOD-sp4): 44.3 ml EDV(sp4-el): 118.9 ml LVAs ap4: 18.5 cm2 LVLs ap4: 6.1 cm ESV(MOD-sp4): 46.8 ml ESV(sp4-el): 47.9 ml EF(MOD-sp4): 59.5 % EF(sp4-el): 59.7 % SV(sp4-el): 71.0 ml LA A4 area: 16.1 cm2 LA dimension(2D): 3.5 cm RA A4 area: 14.6 cm2 Time Measurements MV dec time: 0.18 sec Doppler Measurements & Calculations MV E max speedy: 83.8 cm/sec Lat Peak E' Speedy: 15.0 cm/sec Med Peak E' Speedy: 13.3 cm/sec MV A max speedy: 66.3 cm/sec E/E' lat: 5.6 E/E' med: 6.3 MV E/A: 1.3 Ao V2 max: 120.0 cm/sec LV V1 max: 97.2 cm/sec PA V2 max: 65.2 cm/sec Ao max P.8 mmHg LV V1 max P.8 mmHg TR max speedy: 205.8 cm/sec TR max P.9 mmHg ECHO/Echo Complete Interpretation Summary Normal LV size. Left ventricular systolic function is normal. No regional wall motion abnormalities noted. Bubble contrast study negative for right to left interatrial shunt. The estimated ejection fraction is 60 %. Mild tricuspid valve insufficiency. Ordering Physician: Bridgett Ponce Referring Physician: JORDANA TRIPP Performed By: Ilda Frank RDCS
--- NOTE | 2023-03-15 22:31 | MRI_ITS ---
EXAM: MR HEAD WITHOUT INTRAVENOUS CONTRAST CLINICAL INDICATION: CVA, sudden onset weakness, confusion TECHNIQUE: Multiplanar and multisequence MR images of the brain were obtained without intravenous contrast. COMPARISON: No relevant prior studies available. FINDINGS: BRAIN AND EXTRA-AXIAL SPACES: Several small areas of increased T2 signal intensity within the cerebral white matter which may represent areas of chronic microvascular change or inflammatory demyelination. No intra- or extra-axial hemorrhage. No evidence of acute infarct. No intracranial mass or mass effect. There is preservation of the salvador/white matter interface. Posterior fossa structures are unremarkable. Ventricles are appropriate for age. No hydrocephalus. Basal cisterns are patent. SELLA: Normal. Normal sella turcica, pituitary gland, infundibular stalk, optic chiasm and hypothalamus. AUDITORY SYSTEM: Normal. The internal auditory canals are patent. BONES/JOINTS: Intact calvarium. SINUSES: Unremarkable as visualized. Clear. MASTOID AIR CELLS: Unremarkable as visualized. Clear. ORBITS: Unremarkable as visualized. Both globes, extraocular muscles, optic nerves and retrobulbar fat appear unremarkable. VASCULATURE: Unremarkable as visualized. Normal flow voids in the major intracranial circulation. MRI/Brain without Contrast IMPRESSION: 1. No evidence of acute CVA. 2. Mild white matter changes which may represent chronic microvascular change or areas of demyelination. Electronically Signed: Donny Kline MD at 10:51 EDT ,
[2023-03-15] MEDS: 0.9% Normal Saline (1000mL) 1,000 ML 100 ML IV (23:26)
[2023-03-15] MEDS: APIXABAN 5 MG TABLET PO (23:27)
[2023-03-15] MEDS: Atorvastatin Calcium 80 MG Tablet PO (23:27)
[2023-03-15] MEDS: Potassium Chloride Oral Tablet 20 MEQ 40 MEQ PO (23:27)
[2023-03-15] MEDS: Topiramate 200 MG Tablet PO (23:28)
[2023-03-16 01:15] VITALS: O2SAT 95
[2023-03-16 02:40] VITALS: BP 111/84; PULSE 83; RESP 16; TEMP 37.1; O2SAT 98
[2023-03-16 03:14] VITALS: BMI 35.1
[2023-03-16] MEDS: Acetaminophen 325 MG Tablet 650 MG PO (04:47)
[2023-03-16 04:50] VITALS: BP 112/81; PULSE 66; RESP 16; TEMP 36.7; O2SAT 99
[2023-03-16 06:43] LABS: Absolute Lymphocyte Count 3.21 X10^3/uL (0.83-4.51); Absolute Neutrophil Count 2.2 X10^3/uL (2.0-7.7); Basophil# 0.04 X10^3/uL; Basophil% 0.6 % (0-1); Eosinophil# 0.15 X10^3/uL; Eosinophils% 2.4 % (0-5); Hematocrit 34.2 % (37-47); Hemoglobin 11.1 g/dL (12.0-15.0); Lymphocyte # 3.21 X10^3/ul (0.83-4.51); Mean Corp Hgb Conc 32.5 g/dL (32-36); Mean Corpuscular Hgb 30.7 pg (27.0-32.0); Mean Corpuscular Volume 94.7 fL (81-99); Mean Platelet Vol. 10.3 fl (6.2-12.0); Monocyte# 0.52 X10^3/uL; Monocyte% 8.4 % (0-10); NRBC Flagged by Analyzer 0 % (0-5); Neutrophil # 2.24 X10^3/uL (2.7-7.7); Neutrophil % 36.4 % (47-70); Platelet Count 180 K/mm3 (150-450); RBC Distribution Width SD 49.1 fl (35.1-43.9); Red Blood Count 3.61 M/mm3 (4.2-5.4); White Blood Count 6.2 K/mm3 (4.4-11.0)
[2023-03-16 07:25] VITALS: O2SAT 99
[2023-03-16 07:25] LABS: ALB/GLOB Ratio 0.9 RATIO (0.9-2.4); AST(SGOT) 10 U/L (15-37); Alanine Aminotransfer ALT/SGPT 18 U/L (13-56); Albumin, Serum 3.3 g/dL (3.2-5.0); Alkaline Phosphatase 54 U/L (45-117); Anion Gap 5 (5-15); BUN 14 mg/dL (7-18); BUN/Creat Ratio 17.3 RATIO (10-20); Calcium,Total 8.3 mg/dL (8.5-10.1); Chloride 116 mmol/L (98-107); Cholesterol 134 mg/dL (200); Creatinine, Serum 0.81 mg/dL (0.55-1.02); EST Glomerular Filtration Rate 85 mL/min (>60); Est Glom Filt Rate - Afr Amer 103 mL/min (>60); Estimated Creatinine Clearance 79.43 ml/min; Globulin 3.6 g/dL (2.2-4.2); Glucose 89 mg/dL (74-106); High Density Lipoprotein 33 mg/dL; Potassium 3.2 mmol/L (3.5-5.1); Protein, Total 6.9 g/dL (6.4-8.2); Sodium Level 142 mmol/L (136-145); Thyroid Stim Hormone (TSH) 0.92 uIU/mL (0.358-3.74); Triglycerides 59 mg/dL; Very Low Density Lipoprotein 12 mg/dL (5-40)
[2023-03-16 07:30] VITALS: BP 111/74; PULSE 79; RESP 16; TEMP 36.6; O2SAT 98
[2023-03-16 07:32] LABS: Hemoglobin A1c 5.2 % (3.8-5.6)
[2023-03-16] MEDS: Topiramate 200 MG Tablet PO (10:41)
[2023-03-16] MEDS: Aspirin 81 MG TAB.CHEW PO (10:41)
[2023-03-16] MEDS: Loratadine 10 MG Tablet PO (10:41)
[2023-03-16] MEDS: Citalopram 40 MG TABLET PO (10:41)
[2023-03-16] MEDS: APIXABAN 5 MG TABLET PO (10:41)
[2023-03-16] MEDS: lamoTRIgine 100 MG Tablet 200 MG PO (10:44)
--- NOTE | 2023-03-16 11:56 | PCM.DC.SUM ---
Providers Date of Admission: 03/15/23 Date of Discharge: 03/16/23 Primary Care Physician: ISABEL Reynaga Reason For Visit: TIA/CVA Diagnosis Discharge Diagnosis (1) TIA (transient ischemic attack): Status: Acute Code(s): G45.9 - Transient cerebral ischemic attack, unspecified Medications at Discharge Home Medications medroxyprogesterone 150 mg/mL intramuscular syringe 150 mg IM .[id number] 01/30/15 topiramate 25 mg tablet 200 mg PO BID 01/30/15 citalopram 40 mg tablet 40 mg PO DAILY 04/04/19 haloperidol 5 mg tablet 2.5 mg PO TID PRN Anxiety 04/04/19 apixaban 5 mg tablet 5 mg PO BID 06/03/20 baclofen 20 mg tablet 10 - 20 mg PO TID PRN Spasms 06/03/20 cholecalciferol (vitamin D3) 50 mcg (2,000 unit) capsule 2,000 unit PO DAILY 06/03/20 acetaminophen 325 mg capsule (Tylenol) 325 mg PO ONCE PRN Pain 1-10 Or Fever 08/26/20 lidocaine 5 % topical patch (Lidoderm) 1 patch topical DAILY #6 ea 04/13/21 albuterol sulfate 90 mcg/actuation aerosol inhaler 2 puff inhalation Q6H PRN CONGESTION/ALLERGIES 03/15/23 cetirizine 10 mg tablet 10 mg PO .DAILY AM 03/15/23 famotidine 40 mg tablet 40 mg PO Q12H 03/15/23 lamotrigine 200 mg tablet 200 mg PO DAILY 03/15/23 montelukast 10 mg tablet 10 mg PO QHS 03/15/23 sumatriptan succinate 100 mg tablet 100 mg PO Q2H PRN migraine headache 03/15/23 triamcinolone acetonide 55 mcg nasal spray aerosol 2 spray intranasal DAILY 03/15/23 Hospital Course Summary of Care Provided Minutes Spent on Discharge: 35 Hospital Course: Patient is a 37-year-old lady who was admitted with confusion and left-sided facial droop 1. Probable transient global ischemia ? Placed on a monitored bed underwent subsequent evaluation including MRI which is negative for acute CVA 2. Hypokalemia ? Corrected per protocol 3. History of previous VTE ? Patient is on apixaban continue 4. Tobacco dependence - Counseled on cessation, offered nicotine patch for tobacco cravings 5. Bipolar disorder ? Patient is on lamotrigine did continue Physical Exam Narrative GENERAL: cooperative HEENT: Atraumatic; normocephalic EYES; Anicteric, Normal Conjunctiva NECK; supple, normal thyroid, RESPIRATORY: Diminished to auscultation CARDIOVASCULAR: Regular S1 S2, GI: soft, normoactive bowel sounds, : No Renal angle tenderness; EXTREMITIES: No edema, no clubbing, MUSCULOSKELETAL: no muscle wasting NEURO: Awake; no lateralizing signs. SKIN: No Rash PSYCH; Flat affect Weight / BMI Weight Weight: 90 kg Body Mass Index (BMI) 35.1 ABG / Lab / Microbiology Data 03/16/23 05:40 03/16/23 05:40 Laboratory: Laboratory Results - last 24 hr 03/15/23 19:45: WBC 6.9, RBC 3.98 L, Hgb 12.3, Hct 37.6, MCV 94.5, MCH 30.9, MCHC 32.7, RDW Std Deviation 47.6 H, RDW Coeff of Sharmin 13.7, Plt Count 192, MPV 10.2, Immature Gran % (Auto) 0.300, Neut % (Auto) 59.0, Lymph % (Auto) 32.9, [place] % (Auto) 6.3, Eos % (Auto) 0.9, Baso % (Auto) 0.6, Absolute Neuts (auto) 4.1, Absolute Lymphs (auto) 2.26, Nucleated RBC % 0, PT 15.5 H, INR 1.2, APTT 33.7, Sodium 140, Potassium 3.0 L, Chloride 112 H, Carbon Dioxide 23.0, Anion Gap 5, BUN 10, Creatinine 0.88, Estim Creat Clear Calc 73.11, Est GFR (MDRD) Af Amer 94, Est GFR (MDRD) Non-Af 77, BUN/Creatinine Ratio 11.4, Glucose 106, Calcium 9.4, Magnesium 2.3, Troponin I High Sens 6 03/15/23 20:40: Urine Color Yellow, Urine Clarity Clear, Urine pH 7.0, Ur Specific Counce 1.010, Urine Protein Negative, Urine Glucose (UA) Normal, Urine Ketones Negative, Urine Occult Blood Negative, Urine Nitrite Negative, Urine Bilirubin Negative, Urine Urobilinogen Normal, Ur Leukocyte Esterase 100 H, Urine RBC 0 SEEN, Urine WBC 0-5 SEEN, Ur Squamous Epith Cells 5-10 SEEN, Urine Bacteria 0 SEEN, Urine Mucus 0 SEEN, Urine Opiates Screen NEGATIVE, Urine Methadone Screen NEGATIVE, Ur Barbiturates Screen NEGATIVE, Ur Phencyclidine Scrn NEGATIVE, Ur Amphetamines Screen NEGATIVE, MDMA (Ecstasy) Screen NEGATIVE, U Benzodiazepines Scrn NEGATIVE, Urine Cocaine Screen NEGATIVE, U Cannabinoids Screen NEGATIVE, Ur Drug Screen Comment 03/15/23 20:45: Ethyl Alcohol < 3.0 03/16/23 05:40: WBC 6.2, RBC 3.61 L, Hgb 11.1 L, Hct 34.2 L, MCV 94.7, MCH 30.7, MCHC 32.5, RDW Std Deviation 49.1 H, RDW Coeff of Sharmin 14.0, Plt Count 180, MPV 10.3, Immature Gran % (Auto) 0.200, Neut % (Auto) 36.4 L, Lymph % (Auto) 52.0 H, [place] % (Auto) 8.4, Eos % (Auto) 2.4, Baso % (Auto) 0.6, Absolute Neuts (auto) 2.2, Absolute Lymphs (auto) 3.21, Nucleated RBC % 0, Sodium 142, Potassium 3.2 L, Chloride 116 H, Carbon Dioxide 21.0, Anion Gap 5, BUN 14, Creatinine 0.81, Estim Creat Clear Calc 79.43, Est GFR (MDRD) Af Amer 103, Est GFR (MDRD) Non-Af 85, BUN/Creatinine Ratio 17.3, Glucose 89, Hemoglobin A1c 5.2, Calcium 8.3 L, Total Bilirubin 0.30, AST 10 L, ALT 18, Alkaline Phosphatase 54, Total Protein 6.9, Albumin 3.3, Globulin 3.6, Albumin/Globulin Ratio 0.9, Triglycerides 59, Cholesterol 134, LDL Cholesterol 89, VLDL Cholesterol 12, HDL Cholesterol 33 L, TSH 0.92 Radiography Diagnostic Testing: Radiology Impression Brain CT 03/15/23 20:27 IMPRESSION: Negative Brain CT without contrast. N.B. : The above Results were Read Back by Terrence Ruiz MD to Jeremy Gerard DO, and understanding confirmed on 03/15/2023 20:57:13 (ET). Electronically Signed: Terrence Ruiz MD at 20:58 EDT , ADDENDUM: 03/15/232104 IMPRESSION: Negative Brain CT without contrast. N.B. : The above Results were Read Back by Terrence Ruiz MD to Jeremy Gerard DO, and understanding confirmed on 03/15/2023 20:57:13 (ET). Electronically Signed: Terrence Ruiz MD at 20:58 EDT Reading Location ID and State: [facility] / [place] , Service support , Head/Neck CTA 03/15/23 20:28 IMPRESSION: Normal CTA Head and neck with contrast. Electronically Signed: Terrence Ruiz MD at 21:03 EDT Reading Location ID and State: [facility] / [place] , Service support , ADDENDUM: 03/15/232110 IMPRESSION: Normal CTA Head and neck with contrast. N.B. : The above Results were Read Back by Terrence Ruiz MD to Jeremy Gerard DO, and understanding confirmed on 03/15/2023 21:04:56 (ET). Electronically Signed: Terrence Ruiz MD at 21:03 EDT Reading Location ID and State: [facility] / [place] , Service support , Chest X-Ray 03/15/23 21:14 IMPRESSION: Normal x-ray examination of the chest. Electronically Signed: Terrence Ruiz MD at 21:41 EDT , Brain MRI 03/15/23 22:31 IMPRESSION: 1. No evidence of acute CVA. 2. Mild white matter changes which may represent chronic microvascular change or areas of demyelination. Electronically Signed: Donny Kline MD at 10:51 EDT , D/C Instructions Discharge Diet: No restrictions Discharge Activity: Return to Normal Activity Call your doctor if you observe: Fever of 101 or Higher, Shortness of breath, Fainting spells and Chest pain Meaningful Use Info Meaningful Use Diagnoses (Choose all that apply): None applicable Discharge Plan Admission Admit Date/Time: 03/15/23 21:29 Attending Provider: Pineda Barahona Primary Care Provider: Neli Reyes Consulting Providers: Bridgett Ponce Discharge Orders/Prescriptions Prescriptions: Continued acetaminophen [Tylenol] 325 mg capsule 325 mg PO ONCE PRN (Reason: Pain 1-10 Or Fever) topiramate 25 MG tablet 200 mg PO BID medroxyprogesterone 150 MG/ML syringe 150 mg IM .[id number] citalopram 40 MG tablet 40 mg PO DAILY haloperidol 5 MG tablet 2.5 mg PO TID PRN (Reason: Anxiety) cholecalciferol (vitamin D3) 2,000 UNIT capsule 2,000 unit PO DAILY apixaban 5 MG tablet 5 mg PO BID baclofen 20 MG tablet 10 - 20 mg PO TID PRN (Reason: Spasms) lidocaine [Lidoderm] 5 % adhesive patch,medicated 1 patch topical DAILY Qty: 6 0RF Rx Instructions: leave on most painful area for up to 12 hrs lamotrigine 200 mg tablet 200 mg PO DAILY Patient Comments: TAKE 1 TABLET BY MOUTH ONCE DAILY IN THE MORNING cetirizine 10 mg tablet 10 mg PO .DAILY AM sumatriptan succinate 100 mg tablet 100 mg PO Q2H PRN (Reason: migraine headache) Patient Comments: TAKE ONE TABLET BY MOUTH AT ONSET OF HEADACHE, MAY REPEAT IN 2 HOURS. MAX 200 MG IN 24 HOURS famotidine 40 mg tablet 40 mg PO Q12H Patient Comments: PT TAKES AT DINNER TIME AND THEN ONE AT BEDTIME triamcinolone acetonide 55 mcg aerosol,spray 2 spray INTRANASAL DAILY Patient Comments: USE 2 SPRAY(S) INTRANASALLY ONCE DAILY montelukast 10 mg tablet 10 mg PO QHS Patient Comments: TAKE 1 TABLET BY MOUTH ONCE DAILY albuterol sulfate 90 mcg/actuation HFA aerosol inhaler 2 puff inhalation Q6H PRN (Reason: CONGESTION/ALLERGIES) Referrals / Follow Up: Neli Reyes, DIFFUSION FURNACE OPERATOR-C [Primary Care Provider] - Within 1 Week Disposition Disposition (needs filled in before D/C Order can be placed): Home, Self Care Charges/Coding Visit Charges Inpatient E&M: 61838 Disch Hosp >30min
[2023-03-16 12:46] VITALS: BMI 35.1
--- NOTE | 2023-03-16 13:14 | CASEMGMT ---
SHIRLEY ADEN NOTE: Pt being discharged. MRI negative for acute stroke. Therapy has worked w/pt and no additional therapy recommended. SHIRLEY ADEN to room. Pt resting in bed. Pt states she wishes to discharge home and denies having any discharge planning needs or concerns. Melba NAMN SHIRLEY ADEN
[2023-03-16] MEDS: Fluticasone 0.05% 1 SPRAY NASAL.SRY 2 SPRAY NASAL (13:20)
[2023-03-16] MEDS: Influenza Virus Vac Quad 23-24 60 MCG/0.5 ML SYRINGE IM (13:21)
[2023-03-16] MEDS: Potassium Chloride Oral Tablet 20 MEQ 40 MEQ PO (13:21)
[2023-03-16 13:38] VITALS: BP 103/73; PULSE 94; RESP 18; TEMP 36.3; O2SAT 97
--- NOTE | 2023-03-16 14:46 | PHA.DC_ITS ---
Pharmacy [facility] has performed discharge medication reconciliation and counseling for this patient. The patient was counseled on the following discharge medications and changes in medications for homegoing were reviewed. 1. K-Dur The Reason for Use, instructions for use, and potential side effects were reviewed for all new medications. The patient's questions regarding all of their medications were answered. The patient demonstrated some understanding but would benefit from further education and reinforcement. *The patient was very groggy when I spoke with her, could use reinforcement regarding instructions on taking medication* The patient's discharge medication list was reviewed for discrepancies and discrepancies were resolved. Medications at Discharge Home Medications medroxyprogesterone 150 mg/mL intramuscular syringe 150 mg IM .[id number] c ontrol 01/30/15 topiramate 25 mg tablet 200 mg PO BID 01/30/15 citalopram 40 mg tablet 40 mg PO DAILY mental health 04/04/19 haloperidol 5 mg tablet 2.5 mg PO TID PRN Anxiety 04/04/19 apixaban 5 mg tablet 5 mg PO BID blood thinner 06/03/20 baclofen 20 mg tablet 10 - 20 mg PO TID PRN Spasms 06/03/20 cholecalciferol (vitamin D3) 50 mcg (2,000 unit) capsule 2,000 unit PO DAILY vitamin 06/03/20 acetaminophen 325 mg capsule (Tylenol) 325 mg PO ONCE PRN Pain 1-10 Or Fever 08/26/20 lidocaine 5 % topical patch (Lidoderm) 1 patch topical DAILY pain #6 ea 04/13/21 albuterol sulfate 90 mcg/actuation aerosol inhaler 2 puff inhalation Q6H PRN CONGESTION/ALLERGIES 03/15/23 cetirizine 10 mg tablet 10 mg PO .DAILY AM allergies 03/15/23 famotidine 40 mg tablet 40 mg PO Q12H reflux 03/15/23 lamotrigine 200 mg tablet 200 mg PO DAILY seizures 03/15/23 montelukast 10 mg tablet 10 mg PO QHS allergies 03/15/23 sumatriptan succinate 100 mg tablet 100 mg PO Q2H PRN migraine headache 03/15/23 triamcinolone acetonide 55 mcg nasal spray aerosol 2 spray intranasal DAILY 03/15/23 potassium chloride 20 mEq tablet,extended release(part/cryst) 20 meq PO BID #20 tabs 03/16/23
== END 2023-03-16 14:09 | disposition home or self-care (01) ==
LOC: ED 21:53 → PCU 22:05
PROVIDERS: Admitting Provider Family Medicine; Emergency Provider Emergency Medicine; PCP Nurse Practitioner Family; Visit Provider Internal Medicine
DX: R29.810 Facial weakness (principal); F31.9 Bipolar disorder, unspecified; D68.51 Activated protein C resistance; Z79.01 Long term (current) use of anticoagulants; F41.9 Anxiety disorder, unspecified; Z98.1 Arthrodesis status; F17.210 Nicotine dependence, cigarettes, uncomplicated; R29.701 NIHSS score 1; G43.709 Chronic migraine without aura, not intractable, without status migrainosus; R41.0 Disorientation, unspecified; E87.6 Hypokalemia; Z86.711 Personal history of pulmonary embolism; F17.220 Nicotine dependence, chewing tobacco, uncomplicated; Z79.899 Other long term (current) drug therapy; Z23 Encounter for immunization
CPT/HCPCS: 90686; 36415; 70450; 70496; 70498; 70551; 71045; 80048; 80053; 80061; 80307; 81001; 82077; 82542; 83036; 83735; 84443; 84484; 85025; 85610; 85730; 87086; 87088; 92522; 93005; 93306; 94762; 96360; 96361; 97161; 97166; 97802; 99221; 99285; 99406; J7030; Q9967; A4216; G0378

== ENCOUNTER 2023-04-29 21:03 | Emergency (ER) | payer MEDICAID, SELFPAY ==
[2023-04-29 21:05] VITALS: BP 127/62; PULSE 69; RESP 14; TEMP 35.7; O2SAT 99; BMI 38.9
--- NOTE | 2023-04-29 21:25 | RAD_ITS ---
INDICATION: Injury/Pain EXAMINATION/TECHNIQUE: X-RAY - LEFT XR Foot Min 3 Views 3 VIEWS COMPARISON: None. FINDINGS: SOFT TISSUES: No soft tissue swelling or gas. No radiopaque foreign body. BONES/JOINTS: No acute fracture or traumatic malalignment. Apparent valgus deformities first through fourth metatarsal phalangeal joints. Preservation of the joint space and no degenerative bony proliferative changes. No sclerotic or destructive changes observed. RAD/Foot min 3 Views IMPRESSION: No evidence of traumatic osseous injury. Valgus angulation first through fourth metatarsal phalangeal joints. Consider correlation with nonemergent, bilateral weightbearing x-rays. Electronically Signed: Jerome Hylton DO at 21:59 EST ,
[2023-04-29] MEDS: Ibuprofen 600 MG Tablet PO (21:44)
--- NOTE | 2023-04-29 21:48 | ED.VIS.LOWEX ---
HPI History of Present Illness HPI Narrative: Patient presents with left foot pain that began yesterday. Patient describes her pain as stabbing. Patient states it is mainly over the first metatarsal. Patient denies any trauma or injury. Patient states her pain is constant but waxes and wanes. Patient states her pain is worse with certain movements and better with rest. Patient denies any paresthesias or weakness. Patient denies any fevers or chills. Patient denies any redness or swelling. Chief Complaint: Lower Extremity Injury Informant: patient Onset/Context/Timing Onset: Yesterday Context: Gradual Onset Timing: Continuous Quality of Pain: Stabbing Location: Left first metatarsal Worsened by: Movement Relieved by: Rest Associated Symptoms Associated Symptoms: Negative for Parasthesia, Weakness or Loss of Funtion PFSH PFSH Medical History Anxiety and depression Chronic migraine Chronic neck and back pain Factor 5 Leiden mutation, heterozygous History of nephrolithiasis History of venous thromboembolism Obesity Tobacco use Home Medications medroxyprogesterone 150 mg/mL intramuscular syringe 150 mg IM .[id number] control 01/30/15 [History Last Taken Unknown] topiramate 25 mg tablet 200 mg PO BID 01/30/15 [History Last Taken Unknown] citalopram 40 mg tablet 40 mg PO DAILY mental health 04/04/19 [History Last Taken Unknown] haloperidol 5 mg tablet 2.5 mg PO TID PRN Anxiety 04/04/19 [History Last Taken Unknown] apixaban 5 mg tablet 5 mg PO BID blood thinner 06/03/20 [History Last Taken Unknown] baclofen 20 mg tablet 10 - 20 mg PO TID PRN Spasms 06/03/20 [History Last Taken Unknown] cholecalciferol (vitamin D3) 50 mcg (2,000 unit) capsule 2,000 unit PO DAILY vitamin 06/03/20 [History Last Taken Unknown] acetaminophen 325 mg capsule (Tylenol) 325 mg PO ONCE PRN Pain 1-10 Or Fever 08/26/20 [History Last Taken Unknown] lidocaine 5 % topical patch (Lidoderm) 1 patch topical DAILY pain #6 ea 04/13/21 [Rx Last Taken Unknown] albuterol sulfate 90 mcg/actuation aerosol inhaler 2 puff inhalation Q6H PRN CONGESTION/ALLERGIES 03/15/23 [History Last Taken Unknown] cetirizine 10 mg tablet 10 mg PO .DAILY AM allergies 03/15/23 [History Last Taken Unknown] famotidine 40 mg tablet 40 mg PO Q12H reflux 03/15/23 [History Last Taken Unknown] lamotrigine 200 mg tablet 200 mg PO DAILY seizures 03/15/23 [History Last Taken Unknown] montelukast 10 mg tablet 10 mg PO QHS allergies 03/15/23 [History Last Taken Unknown] sumatriptan succinate 100 mg tablet 100 mg PO Q2H PRN migraine headache 03/15/23 [History Last Taken Unknown] triamcinolone acetonide 55 mcg nasal spray aerosol 2 spray intranasal DAILY 03/15/23 [History Last Taken Unknown] potassium chloride 20 mEq tablet,extended release(part/cryst) 20 meq PO BID #20 tabs 03/16/23 [Rx Last Taken Unknown] benzonatate 200 mg capsule 200 mg PO TID PRN cough #20 caps 04/25/23 [Rx Last Taken Unknown] Allergy/AdvReac Type Severity Reaction Status Date / Time acetaminophen [From [place]] Allergy Itching Verified 04/29/23 21:04 hydrocodone [From [place]] Allergy Itching Verified 04/29/23 21:04 cephalexin monohydrate AdvReac WEAKNESS, Verified 04/29/23 21:04 [From Kef[place]] MUSCLE ACHES PERCOCET AdvReac Intermediate Itching Uncoded 03/15/23 20:03 Family History (Updated 03/16/23 @ 02:[address] Bridgett Ponce MD) Mother Heart disease CVA (cerebral vascular accident) Diabetes Father No problems noted. Surgical History History of carpal tunnel release History of toe surgery S/P cervical spinal fusion Social History household members: other details: Lives in her home with her 3 children, youngest 9. Smoking Status: Current every day smoker tobacco type: cigarettes and smokeless tobacco alcohol intake: never substance use type: does not use ROS ROS ED Constitutional Constitutional ED: Denies chills or fever(s) Eyes Eyes: Denies blurry vision or change in vision ENT ENT ED: Reports sore throat; Denies rhinorrhea Cardiovascular Cardiovascular: Denies chest pain or palpitations Respiratory/Chest Respiratory/Chest: Reports cough; Denies dyspnea Gastrointestinal Gastrointestinal: Denies nausea or vomiting Genitourinary Genitourinary ED: Denies dysuria or hematuria Musculoskeletal Musculoskeletal: Denies back pain or neck pain Integumentary Denies abscess or rash Neurologic Neurologic: Reports headache(s); Denies weakness Allergic/Immunologic Allergic/Immunologic ED: Denies mouth swelling or urticaria EXAM Physical Exam Const Vital Signs: 04/29/23 21:05 Temperature 96.3 F L Temperature Source Temporal Pulse Rate 69 Respiratory Rate 14 Blood Pressure 127/62 H Blood Pressure Mean 83 Pulse Ox 99 Oxygen Delivery Method Room Air Positive well nourished and well developed General Appearance ED: well developed and NAD HEENT Reports moist mucous membranes Neck full ROM and supple Extremity Extremity Narrative: There is tenderness over the left first metatarsal. There is no edema or ecchymosis. There is no bony crepitance or step-off. There is no deformity noted. Range of motion was slightly limited in all motions of the left foot secondary to pain. Pedal pulses are equal bilaterally. Sensation is intact to light touch in all digits. Capillary refill was less than 2 seconds in all digits. There is no calf tenderness or edema noted. Neuro oriented x3, CN's II-XII intact bilaterally, moves all extremities and no sensory deficits noted Sensorium / Orientation: alert Motor Exam: strength 5/5 throughout Psych mental status grossly normal MDM MDM MDM Narrative Medical decision making narrative: Differential diagnosis includes sprain, contusion, and fracture. X-rays of the left foot will be obtained to assess for fracture. Radiography Diagnostic Testing: X-rays of the left foot were obtained. There are 3 views. On my independent interpretation, there is no acute fracture or dislocation. There is no evidence of osteomyelitis. There is no radiopaque foreign body. Radiologist also interpreted the x-ray and agrees. Treatment and Re-Evaluation Narrative: Patient was advised of her findings. Patient was given a postoperative shoe. Patient was instructed to ice and elevate the left foot. Patient was instructed to take Tylenol or ibuprofen as needed for pain. Patient was instructed to return if worse in any way. Patient understood and was agreeable with the plan. All questions were answered. Discharge Plan Triage Chief Complaint: Lower Extremity Injury ED Provider: Ck Matias Dx/Rx/DC Orders Clinical Impression: Sprain of left foot, Factor V Leiden Instructions: ED Foot Sprain Prescriptions: No Action acetaminophen [Tylenol] 325 mg capsule 325 mg PO ONCE PRN (Reason: Pain 1-10 Or Fever) benzonatate 200 mg capsule 200 mg PO TID PRN (Reason: cough) Qty: 20 0RF topiramate 25 MG tablet 200 mg PO BID medroxyprogesterone 150 MG/ML syringe 150 mg IM .[id number] citalopram 40 MG tablet 40 mg PO DAILY haloperidol 5 MG tablet 2.5 mg PO TID PRN (Reason: Anxiety) cholecalciferol (vitamin D3) 2,000 UNIT capsule 2,000 unit PO DAILY apixaban 5 MG tablet 5 mg PO BID baclofen 20 MG tablet 10 - 20 mg PO TID PRN (Reason: Spasms) lidocaine [Lidoderm] 5 % adhesive patch,medicated 1 patch topical DAILY Qty: 6 0RF Rx Instructions: leave on most painful area for up to 12 hrs lamotrigine 200 mg tablet 200 mg PO DAILY Patient Comments: TAKE 1 TABLET BY MOUTH ONCE DAILY IN THE MORNING cetirizine 10 mg tablet 10 mg PO .DAILY AM sumatriptan succinate 100 mg tablet 100 mg PO Q2H PRN (Reason: migraine headache) Patient Comments: TAKE ONE TABLET BY MOUTH AT ONSET OF HEADACHE, MAY REPEAT IN 2 HOURS. MAX 200 MG IN 24 HOURS famotidine 40 mg tablet 40 mg PO Q12H Patient Comments: PT TAKES AT DINNER TIME AND THEN ONE AT BEDTIME triamcinolone acetonide 55 mcg aerosol,spray 2 spray INTRANASAL DAILY Patient Comments: USE 2 SPRAY(S) INTRANASALLY ONCE DAILY montelukast 10 mg tablet 10 mg PO QHS Patient Comments: TAKE 1 TABLET BY MOUTH ONCE DAILY albuterol sulfate 90 mcg/actuation HFA aerosol inhaler 2 puff inhalation Q6H PRN (Reason: CONGESTION/ALLERGIES) potassium chloride 20 mEq tablet,ER particles/crystals 20 meq PO BID Qty: 20 0RF Primary Care Provider: Neli Reyes Referrals: Neli Reyes, FISH PACKER-C [Primary Care Provider] - 5-7 Days Disposition Disposition: Home, Self Care
== END 2023-04-29 22:32 | disposition home or self-care (01) ==
PROVIDERS: Emergency Provider Emergency Medicine; PCP Nurse Practitioner Family; Visit Provider Emergency Medicine
DX: S93.602A Unspecified sprain of left foot, initial encounter (principal); D68.51 Activated protein C resistance; X58.XXXA Exposure to other specified factors, initial encounter; F17.210 Nicotine dependence, cigarettes, uncomplicated; Z79.01 Long term (current) use of anticoagulants; Z79.899 Other long term (current) drug therapy
CPT/HCPCS: 73630; 99283

== ENCOUNTER 2023-07-18 21:34 | Emergency (ER) | payer MEDICAID, SELFPAY ==
[2023-07-18 21:35] VITALS: BP 127/71; PULSE 76; RESP 18; TEMP 35.8; O2SAT 100; BMI 37.8
--- OUTSIDE RECORDS SUMMARY | 2023-07-18 21:58 | XMS RPT_ITS | CCD ---
Author Name Unknown Address [address] [place] [address] Organization [facility] Care Team Providers Care Historical Society Director Name Role Phone BOKEELIA ALONZO [facility] Primary Care Physician Unavailable Primary Care Provider UnavailJANET Adame Referring Unavailable [facility] Primary Care Unavailable NARENDRA MICHEL DO Attending Unavailable [facility] Primary Care Unavailable NARENDRA MICHEL DO Attending Unavailable INGE HAWLEY-KOLE, JAYDE Kapoor Consulting Unavaila ble [facility] Primary Care Unavailable NARENDRA MICHEL DO Admitting Unavailable NARENDRA MICHEL DO Attending Unavailable JANET ENRIQUE Referring Unavailable JANET ENRIQUE Referring Unavailable JANET ENRIQUE Attending Unavailable JANET ENRIQUE Attending Unavailable AMY BAILON MD Admitting Unavailab AMY Richter MD Primary Care Unavailab AMY Richter MD Attending Unavailab le MICHELLE MAGALLON DO Consulting Unavailable MICHELLE MAGALLON DO Referring Unavailable PROVIDER, UNKNOWN Consulting Unavailable PROVIDER, UNKNOWN Consulting Unavailable PARUL CHANG Attending Unavailable PARUL CHANG Primary Care Unavailable PARUL CHANG Admitting Unavailable MICHELLE MAGALLON DO Referring Unavailable MICHELLE MAGALLON DO Consulting Unavailable PROVIDER, UNKNOWN Consulting Unavailable PROVIDER, UNKNOWN Consulting Unavailable NARENDRA MICHEL DO Attending Unavailable NARENDRA MICHEL DO Primary Care Unavailable NARENDRA MICHEL DO Admitting Unavailable MINNA LONG CNP Consulting Unavailable PROVIDER, UNKNOWN Consulting Unavailable PROVIDER, UNKNOWN Consulting Unavailable VAN SHELTON PAC Primary Care Unavailable CAT, VAN PAC Admitting Unavailable CAT, VAN PAC Attending Unavailable MICHELLE MAGALLON DO Consulting Unavailable PROVIDER, UNKNOWN Consulting Unavailable PROVIDER, UNKNOWN Consulting Unavailable NARENDRA MICHEL DO Attending Unavailable NARENDRA MICHEL DO Primary Care Unavailable NARENDRA MICHEL DO Admitting Unavailable MINNA LONG CNP Consulting Unavailable PROVIDER, UNKNOWN Consulting Unavailable PROVIDER, UNKNOWN Consulting Unavailable RENTERIA, JER Attending Unavailable RENTERIA, JER Primary Care Unavailable RENTERIA, JER Admitting Unavailable MICHELLE MAGALLON DO Consulting Unavailable PROVIDER, UNKNOWN Consulting Unavailable PROVIDER, UNKNOWN Consulting Unavailable UNGERER, JORDANA PROGRESSIVE CARE MANAGER Consulting Unavailable UNGERER, JORDANA PROGRESSIVE CARE MANAGER Attending Unavailable UNGERER, JORDANA PROGRESSIVE CARE MANAGER Primary Care Unavailable UNGERER, JORDANA PROGRESSIVE CARE MANAGER Admitting Unavailable PROVIDER, UNKNOWN Consulting Unavailable MICHELLE MAGALLON DO Attending Unavailable MICHELLE MAGALLON DO Consulting Unavailable MICHELLE MAGALLON DO Primary Care Unavailable MICEHLLE MAGALLON DO Admitting Unavailable PROVIDER, UNKNOWN Consulting Unavailable PROVIDER, UNKNOWN Consulting Unavailable UNGERER, JORDANA PROGRESSIVE CARE MANAGER Attending Unavailable UNGERER, JORDANA PROGRESSIVE CARE MANAGER Primary Care Unavailable UNGERER, JORDANA PROGRESSIVE CARE MANAGER Admitting Unavailable MICHELLE MAGALLON DO Consulting Unavailable PROVIDER, UNKNOWN Consulting Unavailable PROVIDER, UNKNOWN Consulting Unavailable RENTERIAJER Attending Unavailable RENTERIA, JER Primary Care Unavailable RENTERIA, JER Admitting Unavailable MICHELLE MAGALLON DO Consulting Unavailable PROVIDER, UNKNOWN Consulting Unavailable PROVIDER, UNKNOWN Consulting Unavailable JORDYN CHU Attending Unavailable CHUJORDYN Gaston C Primary Care Unavailable JORDYN CHU Admitting Unavailable MICHELLE MAGALLON DO Consulting Unavailable MICHELLE MAGALLON DO Referring Unavailable PROVIDER, UNKNOWN Consulting Unavailable PROVIDER, UNKNOWN Consulting Unavailable UNGERER, JORDANA PROGRESSIVE CARE MANAGER Consulting Unavailable LUCINA GONGORA DO Attending Unavailable LUCINA GONGORA DO Primary Care Unavailable LUCINA GONGORA DO Admitting Unavailable UNGERER, JORDANA PROGRESSIVE CARE MANAGER Referring Unavailable PROVIDER, UNKNOWN Consulting Unavailable UNGERER, JORDANA PROGRESSIVE CARE MANAGER Consulting Unavailable IGNACIO SHETH Attending Unavailable IGNACIO SHETH Primary Care Unavailable IGNACIO SHETH Admitting Unavailable UNGERER, JORDANA PROGRESSIVE CARE MANAGER Referring Unavailable PROVIDER, UNKNOWN Consulting Unavailable HDEZ, CARSON DO Attending Unavailable HDEZ CARSON DO Primary Care Unavailable HDEZ CARSON DO Admitting Unavailable MICHELLE MAGALLON DO Consulting Unavailable MICHELLE MAGALLON DO Referring Unavailable PROVIDER, UNKNOWN Consulting Unavailable PROVIDER, UNKNOWN Consulting Unavailable Allergies Allergy Classification Reported Allergen(s) Allergy Type Date of Onset Reaction(s) Facility (6 sources) Acetaminophen / HYDROcodone; Translations: [acetaminophen-hyd rocodone] Drug Allergy Itching [facility] (3 sources) Acetaminophen / oxyCODONE; Translations: [acetaminophen-oxy codone] Drug Allergy Itching [facility] (6 sources) Cephalexin; Translations: [cephalexin] Drug Allergy [facility] (1 source) Acetaminophen / HYDROcodone Drug Allergy [facility] (1 source) Acetaminophen / HYDROcodone Drug Allergy [facility] (1 source) Acetaminophen / oxyCODONE Drug Allergy [facility] (1 source) Cephalexin Drug Allergy [facility] (1 source) Cephalexin Drug Allergy [facility] (1 source) Naproxen Drug Allergy [facility] (1 source) vortioxetine Drug Allergy [facility] Medications Current Medications Medication Drug Class(es) Dates Sig (Normalized) Sig (Original) acetaminophen 325 mg / HYDROcodone bitartrate 5 mg oral tablet (1 source) Opioid Agonist Start: 12-07-2022 End: 12-14-2022 take 1 tablet by mouth every six hours as needed for pain Kimball 325- 5 mg oral tablet Dose = 1 tab(s), Oral, q6h, PRN for pain, X 7 day(s), # 28 tab(s), 0 Refill(s), Pharmacy: [id number], Cervical spondylosis, 160, cm, 12/07/22 6:50:00 EDT, Height, 101 Start Date: 12/07/22 Stop Date: 12/14/22 Status: Ordered Albuterol (Eqv-Ventolin HFA) 90 mcg/inh inhalation aerosol (3 sources) Start: 11-25-2022 take 1 dose by inhalation every six hours as needed for wheezing Albuterol (Eqv-Ventolin HFA) 90 mcg/inh inhalation aerosol Dose = 2 puff(s), Inhalation, q6hr, PRN as needed for wheezing, 0 Refill(s) Start Date: 11/25/22 Status: Ordered haloperidol 5 mg oral tablet (4 sources) Typical Antipsychotic Start: 11-25-2022 haloperidol 5 mg oral tablet Dose : 2.5 mg = 0.5 tab(s), Oral, TID, PRN Anxiety Start Date: 11/25/22 Status: Ordered Completed/Discontinued Medications Medication Drug Class(es) Dates Sig (Normalized) Sig (Original) apixaban 5 mg oral tablet (3 sources) Factor Xa Inhibitor Start: 04-08-2023 take 1 tablet by mouth every twelve hours ELIQUIS 5 mg tab(s) Take 1 tablet by mouth every 12 hours. 0 04/08/2023 Active Problems Active Problems Problem Classification Problem Date Documented Date Episodic/Chronic Coagulation and hemorrhagic disorders (2 sources) Resistance to activated protein C due to Factor V Leiden; 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] Onset: 08-12-2022 Chronic Esophageal disorders (1 source) Gastroesophageal reflux disease without esophagitis; Translations: [Gastro-esophageal reflux disease without esophagitis] Onset: 12-08-2022 Chronic Headache; including migraine (1 source) Migraine; Translations: [Migraine, unspecified, not intractable, without status migrainosus] Onset: 12-08-2022 Chronic Mood disorders (1 source) Bipolar disorder; Translations: [Bipolar disorder, unspecified] Onset: 12-08-2022 Chronic Other connective tissue disease (1 source) Other symptoms and signs involving the musculoskeletal system; Translations: [Arm weakness] Onset: 07-07-2023 Episodic Other connective tissue disease (1 source) Facial weakness; Translations: [Facial weakness] Onset: 06-23-2023 Episodic Other nervous system disorders (1 source) Demyelinating disease of central nervous system, unspecified; Translations: [Demyelinating disease of central nervous system (HCC)] Onset: 05-16-2023 Chronic Other nervous system disorders (3 sources) Other chronic pain; Translations: [Other chronic pain] Onset: 08-12-2022 Chronic Other nervous system disorders (1 source) Paiz's palsy; 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] Onset: 05-16-2023 Episodic Other nervous system disorders (1 source) Anesthesia of skin; Translations: [Facial numbness] Onset: 06-23-2023 Episodic Other upper respiratory infections (2 sources) Sore throat symptom; Translations: [Acute pharyngitis, unspecified] Onset: 07-09-2023 12-08-2022 Episodic Residual codes; unclassified (1 source) Unspecified symptoms and signs involving general sensations and perceptions; Translations: [Sensory deficit, right] Onset: 06-23-2023 Episodic Residual codes; unclassified (1 source) Other amnesia; Translations: [Memory change] Onset: 05-31-2023 Episodic Spondylosis; intervertebral disc disorders; other back problems (2 sources) Other spondylosis with radiculopathy, cervical region; Translations: [Other specified inflammatory spondylopathies, cervical region] Onset: 01-23-2023 Chronic Substance-related disorders (1 source) Nicotine dependence, cigarettes, uncomplicated; Translations: [Nicotine dependence, cigarettes, uncomplicated] Onset: 08-22-2022 Chronic Unclassified (3 sources) cysto insertion stent, eswl Onset: 01-04-2006 01-04-2006 Past or Other Problems Problem Classification Problem Date Documented Da te Episodic/Chronic Allergic reactions (1 source) Allergy status to narcotic agent status; Translations: [Allergy status to narcotic agent] Onset: 08-22-2022 Episodic Calculus of urinary tract (1 source) Personal history of urinary calculi; Translations: [Personal history of urinary calculi] Onset: 08-12-2022 Episodic E Codes: Fall (1 source) Fall on same level from slipping, tripping and stumbling without subsequent striking against object, initial encounter; Translations: [Fall on same level from slipping, tripping and stumbling without subsequent striking against object, initial encounter] Onset: 08-22-2022 Episodic Fracture of lower limb (4 sources) Nondisplaced fracture of third metatarsal bone, right foot, initial encounter for closed fracture; Translations: [Nondisplaced fracture of fifth metatarsal bone, right foot, initial encounter for closed fracture] Onset: 07-25-2022 Episodic Genitourinary symptoms and ill-defined conditions (4 sources) Frequency of micturition; Translations: [Dysuria] Onset: 11-14-2022 Episodic Other connective tissue disease (3 sources) Myalgia, unspecified site; Translations: [Myalgia, unspecified site] Onset: 09-19-2022 Episodic Other non-traumatic joint disorders (2 sources) Pain in left ankle and joints of left foot; Translations: [Pain in left ankle and joints of left foot] Onset: 08-22-2022 Episodic Other non-traumatic joint disorders (1 source) Pain in right shoulder; Translations: [Pain in right shoulder] Onset: 08-12-2022 Episodic Other screening for suspected conditions (not mental disorders or infectious disease) (1 source) Encounter for screening for lipoid disorders; Translations: [Encounter for screening for lipoid disorders] Onset: 08-15-2022 Episodic Phlebitis; thrombophlebitis and thromboembolism (1 source) Personal history of other venous thrombosis and embolism; Translations: [Personal history of other venous thrombosis and embolism] Onset: 08-22-2022 Episodic Pulmonary heart disease (1 source) Personal history of pulmonary embolism; Translations: [Personal history of pulmonary embolism] Onset: 08-12-2022 Episodic Spondylosis; intervertebral disc disorders; other back problems (8 sources) Spinal stenosis, cervical region; Translations: [Cervicalgia] Onset: 08-12-2022 Episodic Sprains and strains (2 sources) Sprain of unspecified ligament of left ankle, initial encounter; Translations: [Other sprain of right foot, subsequent encounter] Onset: 07-25-2022 Episodic Results Test Name Value Interpretation Reference Range Facil ity Vital Signs Date Time Vital Sign Value Performing Clinician Genoveva jason 12-08-2022 11:36-0400 Body temperature 98.42 [degF] NARENDRA MICHEL DO [facility] 12-08-2022 11:36-0400 Diastolic Blood Pressure Non-Invasive 91 1 NARENDRA MICHEL DO [facility] 12-08-2022 11:36-0400 Heart rate 91 /min NARENDRA MICHEL DO [facility] 12-08-2022 11:36-0400 Respiratory rate 18 /min NARENDRA MICHEL DO [facility] 12-08-2022 11:36-0400 Systolic Blood Pressure Non-Invasive 138 1 NARENDRA MICHEL DO [facility] 12-08-2022 07:11-0400 Body temperature 98.24 [degF] NARENDRA MICHEL DO [facility] 12-08-2022 07:11-0400 Diastolic Blood Pressure Non-Invasive 85 1 NARENDRA MICHEL DO [facility] 12-08-2022 07:11-0400 Heart rate 86 /min NARENDRA MICHEL DO [facility] 12-08-2022 07:11-0400 Respiratory rate 18 /min NARENDRA MICHEL DO [facility] 12-08-2022 07:11-0400 Systolic Blood Pressure Non-Invasive 126 1 NARENDRA MICHEL DO [facility] 12-08-2022 03:36-0400 Body temperature 98.96 [degF] NARENDRA MICHEL DO [facility] 12-08-2022 03:36-0400 Diastolic Blood Pressure Non-Invasive 87 1 NARENDRA MICHEL DO [facility] 12-08-2022 03:36-0400 Heart rate 90 /min NARENDRA MICHEL DO [facility] 12-08-2022 03:36-0400 Respiratory rate 20 /min NARENDRA MICHEL DO [facility] 12-08-2022 03:36-0400 Systolic Blood Pressure Non-Invasive 130 1 NARENDRA MICHEL DO [facility] 12-07-2022 23:00-0400 Heart rate 76 /min NARENDRA MICHEL DO [facility] 12-07-2022 19:28-0400 Heart rate 81 /min NARENDRA MICHEL DO [facility] 12-07-2022 14:56-0400 Body height 160 cm NARENDRA MICHEL DO [facility] 12-07-2022 14:56-0400 Body weight 101 kg NARENDRA MICHEL DO [facility] 12-07-2022 14:56-0400 Body weight 39.45 kg/m2 NARENDRA MICHEL DO [facility] 12-07-2022 14:17-0400 Heart rate 74 /min NARENDRA MICHEL DO [facility] 12-07-2022 10:45-0400 Body temperature 97.16 [degF] NARENDRA MICHEL DO [facility] 12-07-2022 10:40-0400 Respiratory Rate - Anes 0 br/min NARENDRA MICHEL DO [facility] 12-07-2022 10:35-0400 Respiratory Rate - Anes 18 br/min NARENDRA MICHEL DO [facility] 12-07-2022 10:30-0400 Respiratory Rate - Anes 16 br/min NARENDRA MICHEL DO [facility] 12-07-2022 06:50-0400 Body height 160 cm NARENDRA MICHEL DO [facility] 12-07-2022 06:50-0400 Body temperature 97.16 [degF] NARENDRA MICHEL DO [facility] 12-07-2022 06:50-0400 Body weight 101 kg NARENDRA MICHEL DO [facility] 12-07-2022 06:50-0400 Heart rate 72 /min NARENDRA MICHEL DO [facility] 11-25-2022 13:22-0400 Blood Pressure Location NARENDRA MICHEL DO [facility] 11-25-2022 13:22-0400 Body height 160 cm NARENDRA MICHEL DO [facility] 11-25-2022 13:22-0400 Body weight 100.7 kg NARENDRA MICHEL DO [facility] 11-25-2022 13:22-0400 Body weight 39.34 kg/m2 NARENDRA MICHEL DO [facility] 11-25-2022 13:22-0400 Diastolic Blood Pressure Non-Invasive 68 1 NARENDRA MICHEL DO [facility] 11-25-2022 13:22-0400 Heart rate 97 /min NARENDRA MICHEL DO [facility] 11-25-2022 13:22-0400 Respiratory rate 20 /min NARENDRA MICHEL DO [facility] 11-25-2022 13:22-0400 Systolic Blood Pressure Non-Invasive 106 1 NARENDRA MICHEL DO [facility] Encounters Encounter Date Encounter Type Care Provider Facility Start: 07-09-2023 ambulatory JER RENTERIA [facility] Start: 07-09-2023 End: 07-09-2023 Emergency department patient visit JORDANA REYES [facility] Start: 07-07-2023 End: 07-07-2023 ambulatory JANET ENRIQUE Facility:[facility] Start: 06-23-2023 End: 06-24-2023 ambulatory JANET ENRIQUE Facility:[facility] Start: 05-31-2023 End: 05-31-2023 ambulatory JANET ENRIQUE Facility:[facility] Start: 05-16-2023 End: 05-17-2023 ambulatory JANET ENRIQUE Facility:[facility] Start: 05-12-2023 Telephone encounter Janet Hernandezelana [employer] Work Phone: Neurology Procedures Date Procedure Procedure Detail Performing Clinician Start: 03-22-2023 Urinalysis AMY GOMES Plan of Treatment Date Care Activity Detail Author Start: 06-08-2026 Urine microalbumin profile DTaP,Tdap,Td Vaccine (2 - Td or Tdap) [facility] Start: 02-10-2023 Covid-19 Vaccine () Covid-19 Vaccine () [facility] Start: 02-10-2023 Influenza vaccination Influenza Vacc ine (#1) [facility] Start: 06-12-2022 Depression Assessment Depression Ass essment [facility] Start: 2016 HPV Testing HPV Testing [facility] Start: 11-27-2014 Pneumococcal vaccination Pneum ococcal Vaccine (2 - PCV) [facility] Start: 10-25-2007 Pap Testing Pap Testing [facility] Start: 2005 Urine microalbumin profile DTaP,Tdap,Td Vaccine (1 - Tdap) [facility] Start: 2004 Hepatitis C Screening Hepatitis C Sc ximena [facility] Start: 2004 HIV Screening HIV Screening [facility] Start: 04-26-1987 Covid-19 Vaccine (#1) Covid-19 Vacci ne (#1) [facility] Start: 1986 Hepatitis B Vaccine (1 of 3 - 3-dose series) Hepatitis B Vaccine (1 of 3 - 3-dose series) [facility] Immunizations Immunization Date Immunization Notes Care Provider Magi moralez 11-11-2020 SARS-CoV-2 (COVID-19 ) mRNA-1273 vaccine NARENDRA MICHEL DO [facility] Payers Date Payer Category Payer Medicaid [place] [facility] [employer] [id number] 2022-Present [phone] [facility] [address] [place] [address] Medicaid [id number] 2019 Medicaid [id number] 1986 Unknown [id number] 1986 Unknown [id number] [id number] 1986 Unknown [id number] [id number] 1986 Unknown [id number] 2.16.840.1.157791.3.579.2. 1986 Unknown [id number] 2.16.840.1.455269.3.579.2. 1986 Unknown [id number] 2.16.840.1.600650.3.579.2. 1986 Unknown [id number] 2.16.840.1.306194.3.579.2.651 1986 Unknown [id number] 2.16.840.1.892833.3.579.2. 1986 Unknown [id number] 2.16.840.1.586322.3.579.2. 1986 Unknown [id number] 2.16.840.1.826098.3.579.2. 1986 Unknown [id number] [id number] 1986 Unknown [id number] 2.16.840.1.317316.3.579.2. 1986 Unknown [id number] 2.16.840.1.136384.3.579.2.651 1986 Unknown [id number] 2.16.840.1.455799.3.579.2.651 1986 Unknown [id number] 2.16.840.1.625614.3.579.2.651 1986 Unknown [id number] [id number] Social History Date Type Detail Facility Start: 11-25-2022 Tobacco smoking status Heavy t obacco smoker (finding) [facility] consumption unknown [facility] Work Phone: Start: 1985 Sex Assigned At Not on file [facility] Start: 04-13-2023 Gender identity Not on file [facility] Start: 12-17-2002 Tobacco smoking stat [facility] Smokes tobacco daily [facility] Start: 12-17-2002 History of tobacco use Cigarette Smo ker [facility] Start: 04-13-2023 Cigarettes smoked current (pack per day) - Reported 1 [facility] Start: 04-13-2023 Tobacco use and exposure Smokeless tobacco non-user [facility] Start: 04-13-2023 Alcohol intake Ex-drinker (finding) [facility] Functional Status Date Assessment Result Facility 12-08-2022 Functional Status Room check performed [facility] 12-08-2022 Functional Status [facility] 12-08-2022 Functional Status IND [facility] 12-08-2022 Functional Status Single level home [facility] 12-08-2022 Functional Status Demonstrates C orrect Call Light Use Yes [facility] 12-07-2022 Functional Status SCD On/Re-appl ied bilateral knee high [facility] 12-07-2022 Functional Status Independent [facility] 12-07-2022 Functional Status 75 [facility] 12-07-2022 Functional [facility] Functional Status Maintained, More than 8 hours [facility] 11-25-2022 Functional Status Sensory Deficits None [facility] Mental Status Date Assessment Result Facility 12-08-2022 Mental Status Oriented x 4 [facility] 12-08-2022 Mental Status [facility] 12-07-2022 Mental Status [facility] Clinical Notes 12-07-2022 to 07-07-2023 Telephone Encounter - Shahla Guerra OCCA - 05/12/2023 11:53 AM ESTTelephone Encounter - Lulu Freire - 04/05/2023 11:05 AM EDT Note Date & Type Note Facility 07-07-2023 Note HNO ID: [id number] Author: JENNIFER RUIZ DO Service: ? Author Type: Physician Type: Progress Notes Filed: 07/07/2023 11:11 Note Text: UNIVERSAL PROTOCOL / SAFETY CHECKLIST Procedure to be Performed: EMG Sign In: A Moment of CARE was completed. Personnel directly involved with the procedure wore the appropriate PPE (Personal Protective Equipment). Patient/Surrogate Stated/Verified: PATIENT VERIFIED(optional for EMERGENT procedures): Patient name, Date of , Relevant allergies, and The intended procedure Time Out Communication: Intended patient and procedure match the source documents. Correct side/site marked and visible. Sign Out: SIGN OUT (optional for EMERGENT procedures): Post-procedure follow-up management communicated and Plan of Care Visit completed when applicable. LINDA Jaramillo DO [facility] 06-06-2023 Note HNO ID: [id number] Author: Janet Enrique APRN.KOLE Service: ? Author Type: Nurse Practitioner Type: Progress Notes Filed: 06/06/2023 7:13 AM Note Text: [facility] obtained from [facility] (under scanned documents). After review will order additional lab work not previously drawn. [facility] 05-31-2023 Note HNO ID: [id number] Author: Janet Enrique APRN.HOUSE WORKER GENER[employer] Service: ? Author Type: Nurse Practitioner Type: Progress Notes Filed: 05/31/2023 12:35 PM Note Text: [facility] Neurologic [place] Follow-up Visit Follow-up note This visit was conducted via virtual platform. I have communicated my name and active licensure. The patient's identity and physical location were verified at the time of this visit. Either the patient or their legal personal financial representative has been informed of the risks and benefits of -- and alternatives to -- treatment through a remote evaluation and consents to proceed with the evaluation remotely. May 31, 2023 HPI: Ms. Santana presents today for a follow-up visit. Per her previous visit on 04/13/23: R29.810 Facial weakness (primary encounter diagnosis) R20.0 Facial numbness R44.9 Sensory deficit, right R41.3 Memory change Comment: Pt presenting today for left facial weakness. She reports that in February she was at work when she experienced an episode of L facial weakness, difficulty with speech, and abnormal behavior. She also reports feeling generally weak and shaky but denies convulsions, loss of control of B/B, tongue/cheek bite. [facility]-up for stroke. She reports imaging were completed including MRI brain and possibly CTA head/neck, however, records not available at time of appointment today. She was diagnosed with a TIA and discharged home. Since discharge. She reports persistent L facial weakness and upon driving to appointment today she experienced numbness/tingling to lips and RUE. On exam, sensory deficit noted to R V2 as well as RUE/RLE. L facial weakness to mouth noted. As weakness and sensory deficits have persisted (though noting weakness is on L and sensory deficit is on R) question d/t alternative process other than TIA. For further evaluation we will repeat MRI brain but with contrast to evaluate for facial nerve enhancement. Additionally she reports white matter changes were noted on MRI brain and will also evaluate for possible demyelinating lesion. We will also order EEG to evaluate for seizure activity contributing to sx including cognitive changes. Of note, she currently takes Eliquis, Lamictal, and Topamax and would not change or add medications at this time. Lastly, discussed lab work evaluate for underlying cause of paresthesias of her, she reports extensive lab work was completed during hospitalization and will await records (requested at time of appointment today) to review if additional lab work is needed. If all testing is unrevealing would also consider complicated migraine in DDx. She will follow-up after testing is complete for result review and further POC or sooner should new or worsening symptoms occur. Currently sick. On the tail end of her illness. Has a URI. States since her previous appointment she has fallen. Was in a hurry and states she has weak ankles. States during one incident she was cooking mckeon and she moved the mckeon with her finger and did not feel it was hot. Called her father who used to work as a brush maker and asked if she was burnt. No goodman. Numbness is more on right than left. Weakness is still present. 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 No sx in legs. No facial weakness. Numbness is mostly notable in bottom lip. Not one side verses the other. Has been on Topamax for about three years. Being prescribed by psychiatrist. Does not have migraines often. Has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 be diagnosed based on: Your symptoms. Your medical history, including: ?What medicines you are taking. ?Any procedures you have had, including surgery, childbirth, and dental procedures. Your family history of bleeding disorders. A physical exam. In some cases, a bleeding disorder is discovered during routine blood testing. You may be referred to a blood specialist (operations officer trust department) for more tests, such as: Complete blood count (CBC). This checks red blood cell and platelet levels. Peripheral smear. This examines blood cells under a microscope and checks for abnormal blood cells. PT (prothrombin time) and PTT (partial thromboplastin time) tests. These measure clotting times and test for clotting factors. Imaging tests, such as a CT scan. These check for internal bleeding. Genetic tests. These check for abnormal genes that you inherited. How is this treated? Treatment for a bleeding disorder depends on the cause, and may include: Treating the cause of acquired bleeding disorders, such as immune system disorders, infections, or diseases. Treating the cause may reduce or reverse bleeding problems. Changing or stopping medicines you take. Taking vitamin supplements. Receiving one or more of the following through an IV (IV infusion): ?Clotting factors. ?Plasma. Plasma is the liquid part of the blood that helps move platelets and clotting factors throughout the body. ?Platelets. ?Red blood cells, if you have severe blood loss. Taking hormone medicine (desmopressin acetate, DDAVP) that increases certain clotting factors associated with bleeding disorders. There is no cure for inherited disorders, but treatment may prevent or control bleeding. Follow these instructions at home: Medicines Take fujy-nhm-yniugiq and prescription medicines only as told by your health care provider. Talk with your health care provider before you take any new medicines. Certain medicines may increase your risk for dangerous bleeding. These include: ?Poqe-hmo-gkarwrw medicines that contain aspirin. ?NSAIDs such as ibuprofen. Preventing falls Follow instructions from your health care provider about ways that you can help prevent falls and injuries at home. These may include: Removing loose rugs, cords, and other tripping hazards from walkways. Installing grab bars in bathrooms. Using night-lights. General instructions Tell all your health care providers, including your dentist, that you have a bleeding disorder. Make sure to tell providers before you have any procedure done, including dental cleanings. Limit activities as told by your health care provider. Ask your health care provider what activities are safe for you. You may need to avoid activities that could increase your risk of injury or bruising, such as contact sports. [place] your teeth using a soft toothbrush. Use an electric razor to shave instead of a blade. Wear a medical alert bracelet that says that you have a bleeding disorder. This can help you get the treatment you need in case of emergency. Keep all follow-up visits as told by your health care provider. This is important. Contact a health care provider if you have: Any symptoms of a bleeding disorder. Get help right away if you have: Bleeding that does not stop. Sudden, severe bleeding. Summary A bleeding disorder causes abnormal bleeding or bruising. There many kinds of bleeding disorders. Bleeding disorders may be passed from parent to child (inherited) or may develop on their own (acquired). Easy bruising and bleeding are the most common signs of a bleeding disorder. Treatment for a bleeding disorder depends on the cause. Talk with your health care provider about what medicines and activities are safe for you. This information is not intended to replace advice given to you by your health care provider. Make sure you discuss any questions you have with your health care provider. Document Released: 04/06/2018 Document Revised: 09/18/2019 Document Reviewed: 04/06/2018 [employer] Patient Education 2020 [employer] 12/08/2022 11:16:34 Anticoagulation, Generic Anticoagulation, Generic Anticoagulants are medicines used to prevent clots from developing in your veins. These medicine are also known as blood thinners. If blood clots are untreated, they could travel to your lungs. This is called a pulmonary embolus. A blood clot in your lungs can be fatal. Health care providers often use anticoagulants to prevent clots following surgery. Anticoagulants are also used along with aspirin when the heart is not getting enough blood. Another anticoagulant called warfarin is started 2 to 3 days after a rapid-acting injectable anticoagulant is started. The rapid-acting anticoagulants are usually continued until warfarin has begun to work. Your health care provider will production foreman this length of time by blood tests known as the prothrombin time (PT) and International Normalization Ratio (INR). This means that your blood is at the necessary and best level to prevent clots. RISKS AND COMPLICATIONS If you have received recent epidural anesthesia, spinal anesthesia, or a spinal tap while receiving anticoagulants, you are at risk for developing a blood clot in or around the spine. This condition could result in long-term or permanent paralysis. Because anticoagulants thin your blood, severe bleeding may occur from any tissue or organ. Symptoms of the blood being too thin may include: ? Bleeding from the nose or gums that does not stop quickly. ? Blood in bowel movements which may appear as bright red, dark, or black tarry stools. ? Blood in the urine which may appear as pink, red, or brown urine. ? Unusual bruising or bruising easily. ? A cut that does not stop bleeding within 10 minutes. ? Vomiting blood or continuous nausea for more than 1 day. ? Coughing up blood. ? Broken blood vessels in your eye (subconjunctival hemorrhage). ? Abdominal or back pain with or without flank bruising. ? Sudden, severe headache. ? Sudden weakness or numbness of the face, arm, or leg, especially on one side of the body. ? Sudden confusion. ? Trouble speaking (aphasia) or understanding. ? Sudden trouble seeing in one or both eyes. ? Sudden trouble walking. ? Dizziness. ? Loss of balance or coordination. ? Vaginal bleeding. ? Swelling or pain at an injection site. ? Superficial fat tissue (necrosis) which may cause skin scarring. This is more common in women and may first present as pain in the waist, thighs, or buttocks. ? Fever. Too little anticoagulation continues to allow the risk for blood clots. HOME CARE INSTRUCTIONS Due to the complications of anticoagulants, it is very important that you take your anticoagulant as directed by your health care provider. Anticoagulants need to be taken exactly as instructed. Be sure you understand all your anticoagulant instructions. Keep all follow-up appointments with your health care provider as directed. It is very important to keep your appointments. Not keeping appointments could result in a chronic or permanent injury, pain, or disability. Warfarin. Your health care provider will advise you on the length of treatment (usually 3 6 months, sometimes lifelong). ? Take warfarin exactly as directed by your health care provider. It is recommended that you take your warfarin dose at the same time of the day. It is preferred that you take warfarin in the late afternoon. If you have been told to stop taking warfarin, do not resume taking warfarin until directed to do so by your health care provider. Follow your health care provider's instructions if you accidentally take an extra dose or miss a dose of warfarin. It is very important to take warfarin as directed since bleeding or blood clots could result in chronic or permanent injury, pain, or disability. ? Too much and too little warfarin are both dangerous. Too much warfarin increases the risk of bleeding. Too little warfarin continues to allow the risk for blood clots. While taking warfarin, you will need to have regular blood tests to measure your blood clotting time. These blood tests usually include both the prothrombin time (PT) and International Normalized Ratio (INR) tests. The PT and INR results allow your health care provider to adjust your dose of warfarin. The dose can change for many reasons. It is critically important that you have your PT and INR levels drawn exactly as directed. Your warfarin dose may stay the same or change depending on what the PT and INR results are. Be sure to follow up with your health care provider regarding your PT and INR test results and what your warfarin dosage should be. ? Many medicines can interfere with warfarin and affect the PT and INR results. You must tell your health care provider about any and all medicines you take, this includes all vitamins and supplements. Ask your health care provider before taking these. Prescription and mmce-dkg-femptgs medicine consistency is critical to warfarin management. It is important that potential interactions are checked before you start a new medicine. Be especially cautious with aspirin and anti-inflammatory medicines. Ask your health care provider before taking these. Medicines such as antibiotics and acid-reducing medicine can interact with warfarin and can cause an increased warfarin effect. Warfarin can also interfere with the effectiveness of medicines you are taking. Do not take or discontinue any prescribed or walj-qbs-kusibam medicine except on the advice of your health care provider or pharmacist. ? Some vitamins, supplements, and herbal products interfere with the effectiveness of warfarin. Vitamin E may increase the anticoagulant effects of warfarin. Vitamin K may can cause warfarin to be less effective. Do not take or discontinue any vitamin, supplement, or herbal product except on the advice of your health care provider or pharmacist. ? Eat what you normally eat and keep the vitamin K content of your diet consistent. Avoid major changes in your diet, or notify your health care provider before changing your diet. Suddenly getting a lot more vitamin K could cause your blood to clot too quickly. A sudden decrease in vitamin K intake could cause your blood to clot too slowly. These changes in vitamin K intake could lead to dangerous blood clots or to bleeding. To keep your vitamin K intake consistent, you must be aware of which foods contain moderate or high amounts of vitamin K. Some foods high in vitamin K include spinach, kale, broccoli, cabbage, greens, [place] sprouts, asparagus, [place], coleslaw, parsley, and green tea. Arrange a visit with a dietitian to answer your questions. ? If you have a loss of appetite or get the stomach flu (viral gastroenteritis), talk to your health care provider as soon as possible. A decrease in your normal vitamin K intake can make you more sensitive to your usual dose of warfarin. ? Some medical conditions may increase your risk for bleeding while you are taking warfarin. A fever, diarrhea lasting more than a day, worsening heart failure, or worsening liver function are some medical conditions that could affect warfarin. Contact your health care provider if you have any of these medical conditions. ? Alcohol can change the body's ability to handle warfarin. It is best to avoid alcoholic drinks or consume only very small amounts while taking warfarin. Notify your health care provider if you change your alcohol intake. A sudden increase in alcohol use can increase your risk of bleeding. Chronic alcohol use can cause warfarin to be less effective. Be careful not to cut yourself when using sharp objects or while shaving. Inform all your health care providers and your dentist that you take an anticoagulant. Limit physical activities or sports that could result in a fall or cause injury. Avoid contact sports. Wear medical alert jewelry or carry a medical alert card. SEEK IMMEDIATE MEDICAL CARE IF: You cough up blood. You have dark or black stools or there is bright red blood coming from your rectum. You vomit blood or have nausea for more than 1 day. You have blood in the urine or pink colored urine. You have unusual bruising or have increased bruising. You have bleeding from the nose or gums that does not stop quickly. You have a cut that does not stop bleeding within a 2 3 minutes. You have sudden weakness or numbness of the face, arm, or leg, especially on one side of the body. You have sudden confusion. You have trouble speaking (aphasia) or understanding. You have sudden trouble seeing in one or both eyes. You have sudden trouble walking. You have dizziness. You have a loss of balance or coordination. You have a sudden, severe headache. You have a serious fall or head injury, even if you are not bleeding. You have swelling or pain at an injection site. You have unexplained tenderness or pain in the abdomen, back, waist, thighs or buttocks. You have a fever. Any of these symptoms may represent a serious problem that is an emergency. Do not wait to see if the symptoms will go away. Get medical help right away. Call your local emergency services (911 in [place] Do not drive yourself to the hospital. Document Released: 05/29/2006 Document Revised: 06/03/2014 Document Reviewed: 12/31/2008 [employer] Patient Information 2015 [employer] [facility]. This information is not intended to replace advice given to you by your health care provider. Make sure you discuss any questions you have with your health care provider. 12/08/2022 11:15:22 How to Use a Hard Cervical Collar How to Use a Hard Cervical Collar A hard cervical collar limits the movement of the top part of your spine (cervical spine). The collar holds your head and neck in a straight position. A cervical collar may be used to treat: A fracture in the neck. Damage to the ligaments. Ligaments are tissues that connect bones. Injury to the spinal cord. There are several types of hard cervical collars. Follow the clinical research analyst's instructions for use. These are general guidelines. What are the risks? Wearing a cervical collar is safe. However, problems may occur, including: Skin breakdown. Sores that form due to rubbing or pressure on the skin (pressure ulcers). Pain. Difficulty breathing. Worsening of your condition if the collar is not placed correctly. Increased risk of inhaling food or liquid into your lungs (aspiration). Supplies needed: Extra cervical collar and replacement pads. Ice. Plastic bag. Towel. A watertight covering to put over the collar during bathing, if needed. How to use a cervical collar Wear the cervical collar as told by your health care provider. Do not remove it unless told to do so by your health care provider. You may be directed to remove it only when you check your skin and change the pads. While the collar is off: ?Ask another person to assist you if needed. ?Keep your head and neck straight. Do not bend your neck or turn your head. ?Check your skin daily for red areas. Ask for help or use a mirror to check areas you cannot see. ?After checking your skin, wear the extra cervical collar while cleaning and changing the pads of the other collar. Change the pads daily or more often if they become wet or dirty. Keep a clean set of replacement pads. Do not let hard plastic edges touch your skin. Cover them with a soft pad. If your cervical collar is not waterproof: ?Do not let it get wet. ?Cover it with a watertight covering when you take a bath or a shower. Follow these instructions at home: Put ice on the injured area to manage pain, stiffness, and swelling. ?Do not remove your cervical collar unless told to do so by your health care provider. ?Put ice in a plastic bag. ?Place a towel between your skin and the bag or between your cervical collar and the bag. ?Leave the ice on for 20 minutes, 2 3 times a day for the first 2 days after your injury. Do not drive any vehicle until your health care provider approves. Keep all follow-up visits as told by your health care provider. This is important. Any delay in getting the care that you need can prevent proper healing of your injury. Contact a health care provider if you have: Red areas of skin under your cervical collar. Pain that is not controlled with your medicines. Get help right away if you have: Numbness or weakness in your arms or legs. Difficulty breathing. These symptoms may represent a serious problem that is an emergency. Do not wait to see if the symptoms will go away. Get medical help right away. Call your local emergency services (911 in the [place] Do not drive yourself to the hospital. Summary A cervical collar is a device that supports the chin and the back of the head. It restricts movement of the neck to prevent more damage after a severe injury. A cervical collar may be used to treat a fracture in the neck, damage to tissues that hold bones together (ligaments), or injury to the spinal cord. Wear the cervical collar as told by your health care provider. Ask if you may remove the collar to shower, bathe, or eat, or to put ice on your neck. This information is not intended to replace advice given to you by your health care provider. Make sure you discuss any questions you have with your health care provider. Document Released: 02/18/2005 Document Revised: 12/04/2018 Document Reviewed: 04/20/2018 [employer] Patient Education 2020 [employer]. Follow Up Care 10/27/2022 13:37:36 With:NARENDRA MICHEL DO, Orthopedic Address: [address] [place] [address], [address] [facility] [place] [address]- [phone] When: Unknown [facility] 12-08-2022 Note Discharge Instructions Thank you for allowing [facility] to assist you with your healthcare needs. The following is important discharge information regarding your hospital visit. Your Care Team Daniel Michel DO [facility] Care Team Your Diagnosis Cervical spondylosis Bipolar disorder Factor 5 Leiden mutation, heterozygous Migraine GERD (gastroesophageal reflux disease) What to do next Instructions From Your Doctor Activity: Do not drive, smoke, operate machinery, return to work, or engage in activities that require you to be alert when taking narcotics, pain relievers or muscle relaxants No reaching overhead Do not turn your head from side to side, turn your upper body Wear both DEANNA hose continuously for 6 weeks Remove during shower time and replaced with a clean pair Wash with soap and water, then hang dry for next use No heavy lifting, pulling, or pushing more than 10 pounds for 3 months Must wear your cervical collar at all times Call Dr. Michel office if: You have any difficulty breathing, swallowing, or swelling of your throat You have a sore throat that does not go away with ice chips, lozenges, pain meds etc. You fall at home, call immediately You experience numbness and/or tingling in your arms or legs that is changed or increased after discharge You develop chills, and/or fever greater than 100 degrees You have drainage from your incision, especially bloody or thick yellow You have increased redness or swelling around the incision You have severe or continued headaches, especially if no headaches were present in the hospital You start having increased pain that is not relieved by your medicine You run out of pain medication Care for your incision: Never put anything on your incision, no creams lotions or antibiotic ointment No hot tubs, swimming, or soaking in water for 6 weeks, or until your incision is healed To shower, cover your incision with a 4 x 4, Tegaderm dressing, and you must wear your cervical collar Change the dressing to your neck daily using a dry 4 x 4 and tape Wear your bone growth stimulator if given 1 daily as instructed If you need to shave using electric razor, do not tilt your head back or shave over the incision General reminders: Do not take any medications, herbal, prescription, or zwah-vtl-vbhljqu unless prescribed for the next 12 weeks Remember to take your pain medication and/or muscle relaxants as ordered to keep your pain under control No NSAIDs for 3 months, will interfere with the fusion. Swelling around the nerves can cause continued numbness and tingling for days or weeks after surgery Follow Up Appointments Follow Up with NARENDRA MICHEL DO, Orthopedic When Where: [address] [place] [address], [address] [facility] [place] [place] [address] [phone] Allergies Keflex (Weakness) Kimball (Itching) Percocet (Itching) Vicodin (Itching) cephalexin Medications Please ask your primary doctor or pharmacist before taking any other medication not listed, including over the counter drugs, herbal medications, vitamins and or supplements as they may interact with your home medications. What How Much When Why Instructions Last Dose Unchanged acetaminophen-hydrocodone (Kimball 325- 5 mg oral tablet) 1 tab(s) by mouth Every 6 hours as needed for for pain Cervical spondylosis Duration: 7 Days Pickup at [facility] 8966 12/08 @ 08:35 Unchanged albuterol (Albuterol (Eqv-Ventolin HFA) 90 mcg/ inh inhalation aerosol) 2 puff(s) by inhalation Every 6 hours as needed for as needed for wheezing Unchanged cetirizine (cetirizine 10 mg oral tablet) 1 tab(s) by mouth Every day Unchanged citalopram (citalopram 40 mg oral tablet) 1 tab(s) by mouth Every day 12/08 @ 08:35 Unchanged famotidine (famotidine 40 mg oral tablet) 1 tab(s) by mouth Every day 12/08 @ 08:35 Unchanged haloperidol (haloperidol 5 mg oral tablet) 0.5 tab(s) by mouth Three (3) times a day as needed for Anxiety 12/08 @ 02:32 Unchanged lamoTRIgine (lamoTRIgine 200 mg oral tablet) 1 tab(s) by mouth Every day 12/08 0835 Unchanged lidocaine topical (lidocaine 5% topical patch) 1 patch(es) Topical Once a day remove patches after 12 hours Unchanged Misc Medication (VITAMIN D3 25 MCG (1,000 UNIT) TABLET) 1 tab by mouth Every day Unchanged SUMAtriptan (SUMAtriptan 100 mg oral tablet) 1 tab(s) by mouth Once a day as needed for as needed for migraine headache may repeat dose after 2 hours up to a maximum of 200 mg in 24 hours Unchanged topiramate (topiramate 200 mg oral tablet) 1 tab(s) by mouth Two (2) times a day Unchanged traMADol (traMADol 50 mg oral tablet) 1 tab(s) by mouth Every 6 hours as needed for for pain Unchanged triamcinolone nasal (triamcinolone 55 mcg/ inh nasal spray) 1 spray(s) each nostril Once a day Pharmacy Information [id number]: [address], [place] [id number] [phone] What How Much When Comments Stop Taking apixaban (Eliquis 5 mg oral tablet) 1 tab(s) by mouth Two (2) times a day Please take this list to your next doctor s visit. Bring all medications you take, including over the counter medications, herbals and other supplements with you to your doctor s visit. Patients and families are reminded to discard old lists and to update any records with all medication providers or retail pharmacies. Education Materials Surgical Spinal Decompression Spinal decompression is a surgery to create more space for the spinal cord. It is done to relieve pressure on the spinal cord and nerves in the spine (spinal nerves) when that pressure causes symptoms, such as: Severe pain. Weakness. Numbness. Trouble emptying one's bladder or bowel. Trouble controlling one's bladder or bowel (incontinence). There are several types of spinal decompression. They include: Laminectomy. This type is done to remove the bony arch at the back of the bones of the spine (vertebrae), which forms the spinal canal. Diskectomy. This type is done to remove a disk between vertebrae. Microdiskectomy. This type is done to remove part of a spinal disk. Foraminotomy. This type is done to widen the bony passage that spinal nerves pass through. Corpectomy or vertebrectomy. This type is done to remove a vertebra. If the spinal decompression makes the spine unstable, spinal decompression may be done along with a procedure to make two or more vertebrae grow together (spinal fusion). Tell a health care provider about: Any allergies you have. All medicines you are taking, including vitamins, herbs, eye drops, creams, and nllm-qcx-ahuikmr medicines. Any problems you or family members have had with anesthetic medicines. Any blood disorders you have. Any surgeries you have had. Any medical conditions you have. Whether you are or may be . What are the risks? Generally, this is a safe procedure. However, problems may occur, including: Bleeding. Infection. Allergic reactions to medicines or dyes. Damage to other structures or organs, such as nerves or the spinal cord. A blood clot that forms in the leg and travels to the lung (pulmonary embolism). Failure to relieve your symptoms. Need for more surgery. What happens before the procedure? Staying hydrated Follow instructions from your health care provider about hydration, which may include: Up to 2 hours before the procedure you may continue to drink clear liquids, such as water, clear fruit juice, black coffee, and plain tea. Eating and drinking restrictions Follow instructions from your health care provider about eating and drinking, which may include: 8 hours before the procedure stop eating heavy meals or foods such as meat, fried foods, or fatty foods. 6 hours before the procedure stop eating light meals or foods, such as toast or cereal. 6 hours before the procedure stop drinking milk or drinks that contain milk. 2 hours before the procedure stop drinking clear liquids. Medicines Ask your health care provider about: ? Changing or stopping your regular medicines. This is especially important if you are taking diabetes medicines or blood thinners. ? Taking medicines such as aspirin and ibuprofen. These medicines can thin your blood. Do not take these medicines unless your health care provider tells you to take them. ? Taking kyqa-oxd-ksowirf medicines, vitamins, herbs, and supplements. General instructions Starting one month or more before surgery, do not use any products that contain nicotine or tobacco. These include cigarettes and e-cigarettes. If you need help quitting, ask your health care provider. You may have an imaging study of your spine, such as an MRI or CT scan, to help plan the procedure. You may have a test called a diskogram. In this test, a dye is injected into your back before X-rays are taken. Plan to have someone take you home from the hospital. Plan to have a responsible adult care for you for at least 24 hours after you leave the hospital. This is important. Ask your health care team what steps will be taken to prevent infection. These may include: ? Removing hair at the surgery site, if needed. ? Washing the skin with germ-killing soap. ? Antibiotic medicine. What happens during the procedure? An IV will be inserted into one of your veins. You will be given one or more of the following: ? A medicine to help you relax (sedative). ? A medicine to numb the area (local anesthetic). ? A medicine to make you fall asleep (general anesthetic). ? A medicine that is injected into your spine to numb the area below and slightly above the injection site (spinal anesthetic). The surgeon will make an incision near your spine. If the affected part of the spine is in the neck, the incision may be made in the front or back of the neck. The length of the incision will depend on how many vertebrae and disks are affected and whether spinal fusion will be needed. Your surgeon may move muscles and nerves so the affected part of the spine can be seen easily. The surgeon will do the appropriate type of spinal decompression. If needed, a spinal fusion will be done. The muscles and nerves will be put back in their normal position. The incision will be closed with stitches (sutures) or blank. A small drain may be placed close to your incision to prevent fluid or blood from pooling in your incision. The drain will be removed within 1 2 days. A bandage (dressing) will be placed over the incision. The procedure may vary among health care providers and hospitals. What happens after the procedure? Your blood pressure, heart rate, breathing rate, and blood oxygen level will be monitored until you leave the hospital or clinic. Your IV may be removed when you are able to drink fluids on your own. You will receive pain medicine as needed. You will be encouraged to get up and walk around as soon as you can. You may have to wear compression stockings. These stockings help to prevent blood clots and reduce swelling in your legs. Summary Spinal decompression is a surgery to create more space for the spinal cord. The surgery may be done to relieve symptoms such as severe pain, weakness, numbness, or difficulty controlling one's bowel or bladder (incontinence). Before the procedure, you will need to make plans to have a responsible adult care for you for at least 24 hours after you leave the hospital. This information is not intended to replace advice given to you by your health care provider. Make sure you discuss any questions you have with your health care provider. Document Released: 06/17/2008 Document Revised: 05/11/2018 Document Reviewed: 04/25/2018 [employer] Patient Education 2020 [employer]. Surgical Spinal Decompression, Care After This sheet gives you information about how to care for yourself after your procedure. Your health care provider may also give you more specific instructions. If you have problems or questions, contact your health care provider. What can I expect after the procedure? After the procedure, it is common to have: Pain in the surgical area for the first few days. Muscle tightening (spasms) across the back. Numbness in the legs or the back. Weakness in the legs. Follow these instructions at home: Incision care Follow instructions from your health care provider about how to take care of your incision. Make sure you: ? Wash your hands with soap and water before you change your bandage (dressing). If soap and water are not available, use hand manager of regulatory affairs. ? Change your dressing as told by your health care provider. You may need to have someone change your dressing for you. ? Leave stitches (sutures), skin glue, or adhesive strips in place. These skin closures may need to stay in place for 2 weeks or longer. If adhesive strip edges start to loosen and curl up, you may trim the loose edges. Do not remove adhesive strips completely unless your health care provider tells you to do that. Check your incision area every day for signs of infection. If you cannot see your incision, have someone check it for you. Check for: ? More redness, swelling, or pain. ? Fluid or blood. ? Warmth. ? Pus or a bad smell. Bathing Do not take baths, swim, or use a hot tub until your health care provider approves. Ask your health care provider if you may take showers. You may only be allowed to take sponge baths. Keep the dressing dry until your health care provider says it can be removed. Activity Return to your normal activities as told by your health care provider. Ask your health care provider what activities are safe for you. Rest as told by your health care provider. Avoid sitting for a long time without moving. Get up to take short walks every 1 2 hours. This is important to improve blood flow and breathing. Ask for help if you feel weak or unsteady. Do not bend or twist at the waist until your health care provider approves. To lower yourself to pick things up, bend your knees instead of tipping your upper body forward. Do not lift anything that is heavier than 10 lb (4.5 kg), or the limit that you are told, until your health care provider says that it is safe. Avoid lifting anything above the level of your head. Sit, stand, walk, turn in bed, and reposition yourself as told by your health care provider. This will help to keep your spine in proper alignment. Avoid pushing and pulling motions. Do exercises as told by your health care provider or physical therapist. Avoid doing electrical assembler that require a lot of effort, such as vacuuming. Managing pain, stiffness, and swelling If directed, put ice on the injured area: ? Put ice in a plastic bag. ? Place a towel between your skin and the bag. ? Leave the ice on for 20 minutes, 2 3 times a day. Driving Do not drive or use heavy machinery while taking prescription pain medicine. Ask your health care provider when it is safe to drive. General instructions Take hvpg-gnh-sixtgfn and prescription medicines only as told by your health care provider. Do not use any products that contain nicotine or tobacco, such as cigarettes and e-cigarettes. These can delay incision and bone healing. If you need help quitting, ask your health care provider. If you are taking prescription pain medicine, take actions to prevent or treat constipation. Your health care provider may recommend that you: ? Drink enough fluid to keep your urine pale yellow. ? Eat foods that are high in fiber, such as fresh fruits and vegetables, whole grains, and beans. ? Limit foods that are high in fat and processed sugars, such as fried or sweet foods. ? Take an adtk-cls-yturxqb or prescription medicine for constipation. If you have a back brace, wear it as told by your health care provider. Remove it only as told. Keep all follow-up visits as told by your health care provider. This is important. Contact a health care provider if you: Have a fever. Notice that your incision feels warm to the touch. Have more redness, swelling, or pain at the site of your incision. Have pus or a bad smell coming from your incision. Have fluid or blood coming from your incision. Have pain that is not controlled by medicine. Have new numbness, tingling, or weakness in any part of your body. Get help right away if you: Have increasing pain, numbness, or weakness. Lose control of when you urinate or have a bowel movement (have incontinence). Cannot move a part of your body (paralysis). Notice that your incision feels swollen and tender, and the surrounding area looks like a lump. The lump may be red or bluish in color. Develop pain in your lower leg or at the back of your knee. Have difficulty breathing. Have chest pain. These symptoms may represent a serious problem that is an emergency. Do not wait to see if the symptoms will go away. Get medical help right away. Call your local emergency services (911 in the [place] Do not drive yourself to the hospital. Summary After the procedure, it is common to have some pain, weakness, and fatigue. Follow instructions from your health care provider about how to take care of your incision. Do not let it get wet until your health care provider approves. Rest as told by your health care provider. Follow instructions about activity and movements. Take shqw-kiz-hcdvsyv and prescription medicines only as told by your health care provider. Make sure you know what symptoms should cause you to get help right away. This information is not intended to replace advice given to you by your health care provider. Make sure you discuss any questions you have with your health care provider. Document Released: 10/13/2015 Document Revised: 05/11/2018 Document Reviewed: 04/25/2018 [email or web address] Patient Education 2020 [employer] Bleeding Disorder A bleeding disorder causes abnormal bleeding or bruising. There are many kinds of bleeding disorders. They develop when the blood does not clump together (clot) properly. Normally, when you are injured and you bleed, special blood cells (platelets) and certain blood proteins (clotting factors) form a gel-like plug (blood clot). The clot forms at the site of the injury to help stop the bleeding. The injured blood vessel also tightens (constricts) to help stop bleeding. When you cannot form blood clots, it may be hard to stop bleeding, and even mild injuries can cause serious bleeding. Bleeding can result in you not having enough red blood cells (anemia). Sudden and severe bleeding can cause a dangerous loss of blood. What are the causes? There are many causes of bleeding disorders. A bleeding disorder may result from conditions that cause: Too few or abnormal platelets. Too few or abnormal clotting factors. Abnormal or weak blood vessels that bleed easily and do not constrict normally. Bleeding disorders may be passed from parent to child (inherited), or they may develop on their own (acquired). Acquired bleeding disorders are most common. They can affect platelets, clotting factors, or blood vessels. Examples of acquired bleeding disorders include: Liver diseases that affect clotting factors. Allergic or immune diseases that attack blood vessels. Infections that damage blood vessels. Lack (deficiency) of vitamin C or vitamin K. Bone marrow cancers that decrease platelet production. Immune system diseases that attack platelets. An enlarged spleen that traps platelets. Long-term (chronic) kidney disease that decreases platelet function. Disseminated intravascular coagulation (DIC). This condition is caused by severe diseases and conditions that use up platelets and clotting factors, such as an overwhelming infection, severe injury, or cancer. Cancer treatments that damage bone marrow, where blood cells are formed. Medicines that increase bleeding. These include blood thinners, aspirin, NSAIDs, some antibiotics, some heart medicines, and quinine. Examples of inherited bleeding disorders include: Von Willebrand disease (VWD). Hemophilia. Hemorrhagic telangiectasia. Moni Danlos syndrome. What are the signs or symptoms? Easy bruising and bleeding are the most common signs of a bleeding disorder. Minor cuts may bleed for a long time, and lightly bumping your skin may cause large bruises from bleeding under the skin (hematomas). Other symptoms include: Heavy menstrual bleeding. Frequent nosebleeds. Prolonged bleeding from gums after brushing or flossing. Blood in the stool (feces). Prolonged bleeding after a dental procedure or a blood draw. Anemia. This may cause pale skin, weakness, and fatigue. Red spots or purple blotches under the skin. Joint pain and swelling. How is this diagnosed? This condition may be diagnosed based on: Your symptoms. Your medical history, including: ? What medicines you are taking. ? Any procedures you have had, including surgery, childbirth, and dental procedures. Your family history of bleeding disorders. A physical exam. In some cases, a bleeding disorder is discovered during routine blood testing. You may be referred to a blood specialist (operations officer trust department) for more tests, such as: Complete blood count (CBC). This checks red blood cell and platelet levels. Peripheral smear. This examines blood cells under a microscope and checks for abnormal blood cells. PT (prothrombin time) and PTT (partial thromboplastin time) tests. These measure clotting times and test for clotting factors. Imaging tests, such as a CT scan. These check for internal bleeding. Genetic tests. These check for abnormal genes that you inherited. How is this treated? Treatment for a bleeding disorder depends on the cause, and may include: Treating the cause of acquired bleeding disorders, such as immune system disorders, infections, or diseases. Treating the cause may reduce or reverse bleeding problems. Changing or stopping medicines you take. Taking vitamin supplements. Receiving one or more of the following through an IV (IV infusion): ? Clotting factors. ? Plasma. Plasma is the liquid part of the blood that helps move platelets and clotting factors throughout the body. ? Platelets. ? Red blood cells, if you have severe blood loss. Taking hormone medicine (desmopressin acetate, DDAVP) that increases certain clotting factors associated with bleeding disorders. There is no cure for inherited disorders, but treatment may prevent or control bleeding. Follow these instructions at home: Medicines Take gacn-ujc-edsoxbk and prescription medicines only as told by your health care provider. Talk with your health care provider before you take any new medicines. Certain medicines may increase your risk for dangerous bleeding. These include: ? Qcco-pfe-jqzutjw medicines that contain aspirin. ? NSAIDs such as ibuprofen. Preventing falls Follow instructions from your health care provider about ways that you can help prevent falls and injuries at home. These may include: Removing loose rugs, cords, and other tripping hazards from walkways. Installing grab bars in bathrooms. Using night-lights. General instructions Tell all your health care providers, including your dentist, that you have a bleeding disorder. Make sure to tell providers before you have any procedure done, including dental cleanings. Limit activities as told by your health care provider. Ask your health care provider what activities are safe for you. You may need to avoid activities that could increase your risk of injury or bruising, such as contact sports. [place] your teeth using a soft toothbrush. Use an electric razor to shave instead of a blade. Wear a medical alert bracelet that says that you have a bleeding disorder. This can help you get the treatment you need in case of emergency. Keep all follow-up visits as told by your health care provider. This is important. Contact a health care provider if you have: Any symptoms of a bleeding disorder. Get help right away if you have: Bleeding that does not stop. Sudden, severe bleeding. Summary A bleeding disorder causes abnormal bleeding or bruising. There many kinds of bleeding disorders. Bleeding disorders may be passed from parent to child (inherited) or may develop on their own (acquired). Easy bruising and bleeding are the most common signs of a bleeding disorder. Treatment for a bleeding disorder depends on the cause. Talk with your health care provider about what medicines and activities are safe for you. This information is not intended to replace advice given to you by your health care provider. Make sure you discuss any questions you have with your health care provider. Document Released: 04/06/2018 Document Revised: 09/18/2019 Document Reviewed: 04/06/2018 [employer] Patient Education 2020 [employer] Anticoagulation, Generic Anticoagulants are medicines used to prevent clots from developing in your veins. These medicine are also known as blood thinners. If blood clots are untreated, they could travel to your lungs. This is called a pulmonary embolus. A blood clot in your lungs can be fatal. Health care providers often use anticoagulants to prevent clots following surgery. Anticoagulants are also used along with aspirin when the heart is not getting enough blood. Another anticoagulant called warfarin is started 2 to 3 days after a rapid-acting injectable anticoagulant is started. The rapid-acting anticoagulants are usually continued until warfarin has begun to work. Your health care provider will production foreman this length of time by blood tests known as the prothrombin time (PT) and International Normalization Ratio (INR). This means that your blood is at the necessary and best level to prevent clots. RISKS AND COMPLICATIONS If you have received recent epidural anesthesia, spinal anesthesia, or a spinal tap while receiving anticoagulants, you are at risk for developing a blood clot in or around the spine. This condition could result in long-term or permanent paralysis. Because anticoagulants thin your blood, severe bleeding may occur from any tissue or organ. Symptoms of the blood being too thin may include: ? Bleeding from the nose or gums that does not stop quickly. ? Blood in bowel movements which may appear as bright red, dark, or black tarry stools. ? Blood in the urine which may appear as pink, red, or brown urine. ? Unusual bruising or bruising easily. ? A cut that does not stop bleeding within 10 minutes. ? Vomiting blood or continuous nausea for more than 1 day. ? Coughing up blood. ? Broken blood vessels in your eye (subconjunctival hemorrhage). ? Abdominal or back pain with or without flank bruising. ? Sudden, severe headache. ? Sudden weakness or numbness of the face, arm, or leg, especially on one side of the body. ? Sudden confusion. ? Trouble speaking (aphasia) or understanding. ? Sudden trouble seeing in one or both eyes. ? Sudden trouble walking. ? Dizziness. ? Loss of balance or coordination. ? Vaginal bleeding. ? Swelling or pain at an injection site. ? Superficial fat tissue (necrosis) which may cause skin scarring. This is more common in women and may first present as pain in the waist, thighs, or buttocks. ? Fever. Too little anticoagulation continues to allow the risk for blood clots. HOME CARE INSTRUCTIONS Due to the complications of anticoagulants, it is very important that you take your anticoagulant as directed by your health care provider. Anticoagulants need to be taken exactly as instructed. Be sure you understand all your anticoagulant instructions. Keep all follow-up appointments with your health care provider as directed. It is very important to keep your appointments. Not keeping appointments could result in a chronic or permanent injury, pain, or disability. Warfarin. Your health care provider will advise you on the length of treatment (usually 3 6 months, sometimes lifelong). ? Take warfarin exactly as directed by your health care provider. It is recommended that you take your warfarin dose at the same time of the day. It is preferred that you take warfarin in the late afternoon. If you have been told to stop taking warfarin, do not resume taking warfarin until directed to do so by your health care provider. Follow your health care provider's instructions if you accidentally take an extra dose or miss a dose of warfarin. It is very important to take warfarin as directed since bleeding or blood clots could result in chronic or permanent injury, pain, or disability. ? Too much and too little warfarin are both dangerous. Too much warfarin increases the risk of bleeding. Too little warfarin continues to allow the risk for blood clots. While taking warfarin, you will need to have regular blood tests to measure your blood clotting time. These blood tests usually include both the prothrombin time (PT) and International Normalized Ratio (INR) tests. The PT and INR results allow your health care provider to adjust your dose of warfarin. The dose can change for many reasons. It is critically important that you have your PT and INR levels drawn exactly as directed. Your warfarin dose may stay the same or change depending on what the PT and INR results are. Be sure to follow up with your health care provider regarding your PT and INR test results and what your warfarin dosage should be. ? Many medicines can interfere with warfarin and affect the PT and INR results. You must tell your health care provider about any and all medicines you take, this includes all vitamins and supplements. Ask your health care provider before taking these. Prescription and rezu-kkn-ramrdec medicine consistency is critical to warfarin management. It is important that potential interactions are checked before you start a new medicine. Be especially cautious with aspirin and anti-inflammatory medicines. Ask your health care provider before taking these. Medicines such as antibiotics and acid-reducing medicine can interact with warfarin and can cause an increased warfarin effect. Warfarin can also interfere with the effectiveness of medicines you are taking. Do not take or discontinue any prescribed or ymqm-ibp-axuyaos medicine except on the advice of your health care provider or pharmacist. ? Some vitamins, supplements, and herbal products interfere with the effectiveness of warfarin. Vitamin E may increase the anticoagulant effects of warfarin. Vitamin K may can cause warfarin to be less effective. Do not take or discontinue any vitamin, supplement, or herbal product except on the advice of your health care provider or pharmacist. ? Eat what you normally eat and keep the vitamin K content of your diet consistent. Avoid major changes in your diet, or notify your health care provider before changing your diet. Suddenly getting a lot more vitamin K could cause your blood to clot too quickly. A sudden decrease in vitamin K intake could cause your blood to clot too slowly. These changes in vitamin K intake could lead to dangerous blood clots or to bleeding. To keep your vitamin K intake consistent, you must be aware of which foods contain moderate or high amounts of vitamin K. Some foods high in vitamin K include spinach, kale, broccoli, cabbage, greens, [place] sprouts, asparagus, B[place] Jovani, coleslaw, parsley, and green tea. Arrange a visit with a dietitian to answer your questions. ? If you have a loss of appetite or get the stomach flu (viral gastroenteritis), talk to your health care provider as soon as possible. A decrease in your normal vitamin K intake can make you more sensitive to your usual dose of warfarin. ? Some medical conditions may increase your risk for bleeding while you are taking warfarin. A fever, diarrhea lasting more than a day, worsening heart failure, or worsening liver function are some medical conditions that could affect warfarin. Contact your health care provider if you have any of these medical conditions. ? Alcohol can change the body's ability to handle warfarin. It is best to avoid alcoholic drinks or consume only very small amounts while taking warfarin. Notify your health care provider if you change your alcohol intake. A sudden increase in alcohol use can increase your risk of bleeding. Chronic alcohol use can cause warfarin to be less effective. Be careful not to cut yourself when using sharp objects or while shaving. Inform all your health care providers and your dentist that you take an anticoagulant. Limit physical activities or sports that could result in a fall or cause injury. Avoid contact sports. Wear medical alert jewelry or carry a medical alert card. SEEK IMMEDIATE MEDICAL CARE IF: You cough up blood. You have dark or black stools or there is bright red blood coming from your rectum. You vomit blood or have nausea for more than 1 day. You have blood in the urine or pink colored urine. You have unusual bruising or have increased bruising. You have bleeding from the nose or gums that does not stop quickly. You have a cut that does not stop bleeding within a 2 3 minutes. You have sudden weakness or numbness of the face, arm, or leg, especially on one side of the body. You have sudden confusion. You have trouble speaking (aphasia) or understanding. You have sudden trouble seeing in one or both eyes. You have sudden trouble walking. You have dizziness. You have a loss of balance or coordination. You have a sudden, severe headache. You have a serious fall or head injury, even if you are not bleeding. You have swelling or pain at an injection site. You have unexplained tenderness or pain in the abdomen, back, waist, thighs or buttocks. You have a fever. Any of these symptoms may represent a serious problem that is an emergency. Do not wait to see if the symptoms will go away. Get medical help right away. Call your local emergency services (911 in [place] Do not drive yourself to the hospital. Document Released: 05/29/2006 Document Revised: 06/03/2014 Document Reviewed: 12/31/2008 [facility] Patient Information 2015 [employer]. This information is not intended to replace advice given to you by your health care provider. Make sure you discuss any questions you have with your health care provider. How to Use a Hard Cervical Collar A hard cervical collar limits the movement of the top part of your spine (cervical spine). The collar holds your head and neck in a straight position. A cervical collar may be used to treat: A fracture in the neck. Damage to the ligaments. Ligaments are tissues that connect bones. Injury to the spinal cord. There are several types of hard cervical collars. Follow the clinical research analyst's instructions for use. These are general guidelines. What are the risks? Wearing a cervical collar is safe. However, problems may occur, including: Skin breakdown. Sores that form due to rubbing or pressure on the skin (pressure ulcers). Pain. Difficulty breathing. Worsening of your condition if the collar is not placed correctly. Increased risk of inhaling food or liquid into your lungs (aspiration). Supplies needed: Extra cervical collar and replacement pads. Ice. Plastic bag. Towel. A watertight covering to put over the collar during bathing, if needed. How to use a cervical collar Wear the cervical collar as told by your health care provider. Do not remove it unless told to do so by your health care provider. You may be directed to remove it only when you check your skin and change the pads. While the collar is off: ? Ask another person to assist you if needed. ? Keep your head and neck straight. Do not bend your neck or turn your head. ? Check your skin daily for red areas. Ask for help or use a mirror to check areas you cannot see. ? After checking your skin, wear the extra cervical collar while cleaning and changing the pads of the other collar. Change the pads daily or more often if they become wet or dirty. Keep a clean set of replacement pads. Do not let hard plastic edges touch your skin. Cover them with a soft pad. If your cervical collar is not waterproof: ? Do not let it get wet. ? Cover it with a watertight covering when you take a bath or a shower. Follow these instructions at home: Put ice on the injured area to manage pain, stiffness, and swelling. ? Do not remove your cervical collar unless told to do so by your health care provider. ? Put ice in a plastic bag. ? Place a towel between your skin and the bag or between your cervical collar and the bag. ? Leave the ice on for 20 minutes, 2 3 times a day for the first 2 days after your injury. Do not drive any vehicle until your health care provider approves. Keep all follow-up visits as told by your health care provider. This is important. Any delay in getting the care that you need can prevent proper healing of your injury. Contact a health care provider if you have: Red areas of skin under your cervical collar. Pain that is not controlled with your medicines. Get help right away if you have: Numbness or weakness in your arms or legs. Difficulty breathing. These symptoms may represent a serious problem that is an emergency. Do not wait to see if the symptoms will go away. Get medical help right away. Call your local emergency services (911 in the [place] Do not drive yourself to the hospital. Summary A cervical collar is a device that supports the chin and the back of the head. It restricts movement of the neck to prevent more damage after a severe injury. A cervical collar may be used to treat a fracture in the neck, damage to tissues that hold bones together (ligaments), or injury to the spinal cord. Wear the cervical collar as told by your health care provider. Ask if you may remove the collar to shower, bathe, or eat, or to put ice on your neck. This information is not intended to replace advice given to you by your health care provider. Make sure you discuss any questions you have with your health care provider. Document Released: 02/18/2005 Document Revised: 12/04/2018 Document Reviewed: 04/20/2018 Elsevier Patient Education 2020 [employer] Additional Information VACCINATE! IT SAVES LIVES! Members of the community who have not yet received the COVID-19 vaccine and would like to receive it can visit one of [facility] vaccine clinics. There are many vaccine clinic locations within the [facility]. For locations and available times, please visit [email or web address]. [place].gov/. It is important to note that some COVID mobile vaccine clinics are held outdoors and may be canceled in rainy or stormy conditions. To learn more about pediatric vaccinations (ages 5-11), we invite you to visit the [employer] webpage. [email or web address]/ [email or web address] To learn more about the COVID-19 vaccine, we invite you to visit the CDC website for a list of frequently asked questions.https://www.cdc.gov/c oronavirus/2019-ncov/vaccines/f aq.html [facility] Patient Portal Access Instructions: Stay connected with your healthcare team and access your personal medical information anytime with the [employer] Patient Portal. Please follow the directions below to create your [employer] account: 1.Access the email account you provided upon registration to the hospital/physician office.2.Look for an invitation email from [facility].3.Open the email and access the invitation link: Accept Invitation to [facility].4.Fill in the required avelar to create your account. To access your account, visit [facility]. Click the blue button labeled Access Patient Portal and then log in with the username and password that you created in the steps above. You will be able to view your test results, lab results, a summary of your visits, upcoming appointments and more. There is also a convenient messaging option where you can send secure messages to your provider. In addition, you will have the ability to download any documents or summaries to your computer and/or send the information securely to a physician. Remember that your healthcare information is confidential, so carefully consider who you will allow to register on the [facility] Patient Portal for access to your information. You can also access the [facility] Patient Portal on the [employer] nikki. Simply click on Patient Portal and then log into your account. If you would like to receive a full copy of your medical records, please contact the [facility] Medical Records Department by calling [phone], Monday through Monday between 8 a.m. and 4:30 p.m. HOW TO SAFELY DISPOSE OF PRESCRIPTION MEDIC (more content not included)... [facility] 12-07-2022 Note ORIGINAL Images acquired, not reported on this accession number. [facility] 12-07-2022 Note ORIGINAL Images acquired, not reported on this accession number. [facility] 12-07-2022 Anesthesiology Consult note Patient: EVANGELINA SANTANA Age: 37 years Sex: Female : 1985 Associated Diagnoses: None Author: GARRY RYDER Preoperative Information Time of last food or liquid consumption: 12/07/2022 00:00:00 Anesthesia history Patient's history: negative. Family's history: negative. Review of Systems Ear/Nose/Mouth/Throat: Negative. Respiratory: asthma, smoker, hx of PE. Cardiovascular: factor 5. Gastrointestinal: Reflux, MO. Genitourinary: Negative. Endocrine: Negative. Musculoskeletal: OA. Integumentary: Negative. Neurologic: anxiety, bipolar, depression, migraines. Health Status Allergies: Allergic Reactions (Selected) Severity Not Documented Cephalexin- No reactions were documented. Keflex- Weakness. Kimball- Itching. Percocet- Itching. Vicodin- Itching., Allergies (5) ActiveReaction cephalexinNone Documented KeflexWeakness NorcoItching PercocetItching VicodinItching Current medications: (Selected) Inpatient Medications Ordered Cleocin Phosphate: 600 mg, 50 mL, 100 mL/hr, IV Piggyback, PREOP pharm Heparin for IV + Sodium Chloride 0.9% intravenous solution 1,000 mL: 30,000 unit(s), 30 mL, 0 mL/hr, Miscellaneous, PREOP pharm LR 1000 mL: 20 mL/hr, Intravenous NS 1000 mL: 125 mL/hr, Intravenous, Stop: 12/08/22 17:59:00 EDT Zofran ( PACU ): 4 mg, 2 mL, IV Push, AsDirected, PRN: Nausea/Vomiting morphine ( PACU ): 2 mg, 1 mL, IV Push, q5min, PRN: Pain, scale 4-6 Prescriptions Prescribed Kimball 325- 5 mg oral tablet: 1 tab(s), Oral, q6h, for 7 day(s), PRN: for pain, 28 tab(s), 0 Refill(s) Documented Medications Documented Albuterol (Eqv-Ventolin HFA) 90 mcg/inh inhalation aerosol: 2 puff(s), Inhalation, q6hr, PRN: as needed for wheezing, 0 Refill(s) SUMAtriptan 100 mg oral tablet: 100 mg, 1 tab(s), Oral, qDay, may repeat dose after 2 hours up to a maximum of 200 mg in 24 hours, PRN: as needed for migraine headache, 18 tab(s), 0 Refill(s) VITAMIN D3 25 MCG (1,000 UNIT) TABLET: 1 tab, Oral, Daily, 0 Refill(s) cetirizine 10 mg oral tablet: 10 mg, 1 tab(s), Oral, Daily, 0 Refill(s) citalopram 40 mg oral tablet: 40 mg, 1 tab(s), Oral, Daily, 0 Refill(s) famotidine 40 mg oral tablet: 40 mg, 1 tab(s), Oral, Daily, 0 Refill(s) haloperidol 5 mg oral tablet: 2.5 mg, 0.5 tab(s), Oral, TID, PRN: Anxiety lamoTRIgine 200 mg oral tablet: 200 mg, 1 tab(s), Oral, Daily, 60 tab(s), 0 Refill(s) lidocaine 5% topical patch: 1 patch(es), Topical, qDay, remove patches after 12 hours, 30 patch(es), 0 Refill(s) topiramate 200 mg oral tablet: 200 mg, 1 tab(s), Oral, BID, 60 tab(s), 0 Refill(s) traMADol 50 mg oral tablet: 50 mg, 1 tab(s), Oral, q6h, PRN: for pain, 12 tab(s), 0 Refill(s) triamcinolone 55 mcg/inh nasal spray: 55 mcg, 1 spray(s), Nostril, each, qDay, 16.9 mL, 0 Refill(s), Medications (6) Active Scheduled: (2) clindamycin PMX 600 mg 50 mL, IV Piggyback, PREOP pharm heparin + NS (0.9% nacl) 1,000 mL 30,000 unit(s) 30 mL, Miscellaneous, PREOP pharm Continuous: (2) Lactated Ringers Infusion 1000 mL 1,000 mL, Intravenous, 20 mL/hr NS (0.9% nacl) 1000 mL 1,000 mL, Intravenous, 125 mL/hr PRN: (2) morphine 2 mg/mL 1 mL syringe 2 mg 1 mL, IV Push, q5min ondansetron 2 mg/ 1 mL 2 mL INJ 4 mg 2 mL, IV Push, AsDirected Problem list: Medical cysto insertion stent, eswl / Confirmed / Stable, Active Problems (12) Anxiety Asthma Bipolar disorder cysto insertion stent, eswl Depression DVT (deep venous thrombosis) Factor 5 Leiden mutation, heterozygous GERD (gastroesophageal reflux disease) Migraine OA (osteoarthritis) PE (pulmonary thromboembolism) Tobacco use Histories Past Medical History: No active or resolved past medical history items have been selected or recorded. Family History: Hypertension Mother Heart failure Mother Stroke Mother COPD Mother Factor 5 Leiden mutation Sister Procedure history: ESWL (extracorporeal shockwave lithotripsy) of ureteric calculus ([id number]). Comments: 11/25/2022 14:01 Elaine Mendieta RN with ureteral stent, x2 Cystoscopy ([id number]). CTR - carpal tunnel release ([id number]). Comments: 11/25/2022 14:02 Elaine Mendieta RN bilateral Wedge excision of skin of nail fold (eg, for ingrown toenail) ([id number]). Social History Social & Psychosocial Habits Alcohol 11/25/2022 Use: Never Substance Abuse 11/25/2022 Use: Never Tobacco 11/25/2022 Tobacco Use: 10 or more cigarettes (1/ Type: Cigarettes Number of years: 18 Home/Environment 11/25/2022 Domestic Concerns None Living situation: Home/Independent Primary Riffler Tender: Self Current Home Treatments None Special Services and Community Resources None Nutrition/Health 11/25/2022 Type of diet: Regular Appetite Good Eating Difficulties None . Physical Examination Vital Signs 12/07/2022 8:50 EDT Heart Rate Monitored 61 bpm bpm Respiratory Rate - Anes 8 br/min br/min 12/07/2022 8:45 EDT Heart Rate Monitored 73 bpm bpm Respiratory Rate - Anes 8 br/min br/min Systolic Blood Pressure Non-Invasive 80 mmHg mmHg Diastolic Blood Pressure Non-Invasive 57 mmHg mmHg 12/07/2022 8:40 EDT Heart Rate Monitored 51 bpm bpm Respiratory Rate - Anes 8 br/min br/min Systolic Blood Pressure Non-Invasive 89 mmHg mmHg Diastolic Blood Pressure Non-Invasive 63 mmHg mmHg 12/07/2022 8:35 EDT Heart Rate Monitored 86 bpm bpm Respiratory Rate - Anes 8 br/min br/min Systolic Blood Pressure Non-Invasive 77 mmHg mmHg Diastolic Blood Pressure Non-Invasive 48 mmHg mmHg 12/07/2022 8:30 EDT Heart Rate Monitored 83 bpm bpm Respiratory Rate - Anes 8 br/min br/min Systolic Blood Pressure Non-Invasive 80 mmHg mmHg Diastolic Blood Pressure Non-Invasive 50 mmHg mmHg 12/07/2022 8:26 EDT Systolic Blood Pressure Non-Invasive 78 mmHg mmHg Diastolic Blood Pressure Non-Invasive 43 mmHg mmHg 12/07/2022 8:25 EDT Heart Rate Monitored 89 bpm bpm Respiratory Rate - Anes 8 br/min br/min 12/07/2022 8:20 EDT Heart Rate Monitored 87 bpm bpm Respiratory Rate - Anes 8 br/min br/min Systolic Blood Pressure Non-Invasive 81 mmHg mmHg Diastolic Blood Pressure Non-Invasive 58 mmHg mmHg 12/07/2022 8:15 EDT Heart Rate Monitored 101 bpm bpm Respiratory Rate - Anes 10 br/min br/min Systolic Blood Pressure Non-Invasive 148 mmHg mmHg Diastolic Blood Pressure Non-Invasive 105 mmHg mmHg 12/07/2022 8:10 EDT Heart Rate Monitored 85 bpm bpm Respiratory Rate - Anes 11 br/min br/min Systolic Blood Pressure Non-Invasive 137 mmHg mmHg Diastolic Blood Pressure Non-Invasive 112 mmHg mmHg 12/07/2022 8:05 EDT Systolic Blood Pressure Non-Invasive 114 mmHg mmHg Diastolic Blood Pressure Non-Invasive 76 mmHg mmHg 12/07/2022 6:50 EDT Temperature Temporal Artery 36.2 DegC Apical Heart Rate 72 bpm Respiratory Rate 21 br/min HI Systolic Blood Pressure Non-Invasive 15 mmHg LOW Diastolic Blood Pressure Non-Invasive 75 mmHg Vital Signs(last 24 hrs) Last Charted Heart Rate [id number] bpm (DEC 07 08:50) Resp Rate H 21br/min (DEC 07 06:50) SBP80 mmHg (DEC 07 08:45) DBP57 mmHg (DEC 07 08:45) Measurements from flowsheet : Measurements 12/07/2022 6:50 EDT Height 160 cm Admission Weight 101 kg [place] Body Weight 52.38 kg Pain assessment: Pain Assessment 12/07/2022 6:50 EDT Primary Pain Location Neck Primary Pain Laterality Medial Primary Pain Intensity 4 Primary Pain Quality Aching Pain Scale Type 0-10 Pain scale . General: Alert and oriented. Airway: Normal temporomandibular joint mobility. Mallampati classification: II (soft palate, fauces, uvula visible). Head: Normocephalic. Dentition Evaluation: Own teeth, poor. Neck: Supple. Respiratory: Lungs are clear to auscultation. Cardiovascular: Normal rate. Heart Sounds: Normal. Gastrointestinal: Soft. Musculoskeletal Normal range of motion. Integumentary: Intact. Neurologic: Alert, Oriented. Review / Management Results review: Labs (Last four charted values) PT 12.9(DEC 07) INR 1.1(DEC 07) PTT 32.3(DEC 07) , Lab results 12/07/2022 8:55 EDT acetaminophen 1,000 mg mg 12/07/2022 8:52 EDT SN - CAt - Role Performed Talent Engineer (Modified) 12/07/2022 8:50 EDT Heart Rate Monitored 61 bpm bpm Respiratory Rate - Anes 8 br/min br/min Oxygen Saturation 98 % % 12/07/2022 8:49 EDT SN - CTm - Surgery Start 12/07/2022 8:47 12/07/2022 8:47 EDT SN - CTm - Surgery Start Surgery Start 12/07/2022 8:45 EDT Heart Rate Monitored 73 bpm bpm Respiratory Rate - Anes 8 br/min br/min Systolic Blood Pressure Non-Invasive 80 mmHg mmHg Diastolic Blood Pressure Non-Invasive 57 mmHg mmHg Oxygen Saturation 98 % % Set Rate Anes 8 br/min br/min 12/07/2022 8:42 EDT dexAMETHasone 4 mg mg ondansetron 4 mg mg 12/07/2022 8:40 EDT Heart Rate Monitored 51 bpm bpm Respiratory Rate - Anes 8 br/min br/min Systolic Blood Pressure Non-Invasive 89 mmHg mmHg Diastolic Blood Pressure Non-Invasive 63 mmHg mmHg Oxygen Saturation 98 % % acetaminophen Begin Bag 100 mL mg Set Rate Anes 8 br/min br/min 12/07/2022 8:36 EDT phenylephrine 100 mcg mcg 12/07/2022 8:35 EDT Heart Rate Monitored 86 bpm bpm Respiratory Rate - Anes 8 br/min br/min Systolic Blood Pressure Non-Invasive 77 mmHg mmHg Diastolic Blood Pressure Non-Invasive 48 mmHg mmHg Oxygen Saturation 98 % % Set Rate Anes 8 br/min br/min 12/07/2022 8:30 EDT Heart Rate Monitored 83 bpm bpm Respiratory Rate - Anes 8 br/min br/min Systolic Blood Pressure Non-Invasive 80 mmHg mmHg Diastolic Blood Pressure Non-Invasive 50 mmHg mmHg Oxygen Saturation 92 % % Set Rate Anes 8 br/min br/min 12/07/2022 8:26 EDT Systolic Blood Pressure Non-Invasive 78 mmHg mmHg Diastolic Blood Pressure Non-Invasive 43 mmHg mmHg 12/07/2022 8:25 EDT Heart Rate Monitored 89 bpm bpm Respiratory Rate - Anes 8 br/min br/min Oxygen Saturation 98 % % Set Rate Anes 8 br/min br/min 12/07/2022 8:20 EDT Heart Rate Monitored 87 bpm bpm Respiratory Rate - Anes 8 br/min br/min Systolic Blood Pressure Non-Invasive 81 mmHg mmHg Diastolic Blood Pressure Non-Invasive 58 mmHg mmHg Oxygen Saturation 96 % % Set Rate Anes 8 br/min br/min 12/07/2022 8:15 EDT Heart Rate Monitored 101 bpm bpm Respiratory Rate - Anes 10 br/min br/min Systolic Blood Pressure Non-Invasive 148 mmHg mmHg Diastolic Blood Pressure Non-Invasive 105 mmHg mmHg Oxygen Saturation 98 % % Set Rate Anes 8 br/min br/min 12/07/2022 8:10 EDT Heart Rate Monitored 85 bpm bpm Respiratory Rate - Anes 11 br/min br/min Systolic Blood Pressure Non-Invasive 137 mmHg mmHg Diastolic Blood Pressure Non-Invasive 112 mmHg mmHg Oxygen Saturation 100 % % Set Rate Anes 8 br/min br/min 12/07/2022 8:08 EDT fentaNYL 50 mcg mcg lidocaine 5 mg mg propofol 200 mg mg rocuronium 5 mg mg succinylcholine 120 mg mg 12/07/2022 8:05 EDT Systolic Blood Pressure Non-Invasive 114 mmHg mmHg Diastolic Blood Pressure Non-Invasive 76 mmHg mmHg 12/07/2022 8:03 EDT SN - CTm - Anesthesia Start Time Anesthesia Start 12/07/2022 7:57 EDT SN - Preop - CTm Pt in SDS Room 12/07/2022 6:15 SN - Preop - CTm Pt Ready for OR/Proced 12/07/2022 7:15 12/07/2022 7:35 EDT SN - WA - Medication TOPICAL THROMBIN SN - WA - Route of Administration Local SN - WA - By (Single) SN - WA - By (Single) 12/07/2022 7:35 EDT Heparin dose (APTT) Unknown APTT 32.3 seconds Protime 12.9 seconds PT International Ratio 1.1 NA 12/07/2022 7:33 EDT SN - PP - Body Position Supine Standard Intra-op 12/07/2022 7:32 EDT SN - PTCare - Anti-thromboembolism Janell Sequential Compression Device (SCD) 12/07/2022 7:32 EDT SN - Assess - LOC Alert, Awake SN - Assess - Orientation Oriented X 3 SN - Assess - Post-op Skin Integrity Intact/Dry 12/07/2022 7:31 EDT SN - GCD - Post-operative Diagnosis SPINAL STENOSIS CERVICAL REGION, SPONDYLOSIS WITH RADICULOPATHY CERVICAL REGION, OTHER CERVICAL DISC DEGENERATION, SPECIFIED INFLAMMATORY SPONDYLOPATHIES CERVICAL REGION, CERVICALGIA, PARETHESIA OF SKIN SN - GCD - Case Level Level 5 12/07/2022 7:25 EDT SN - CAt - Case Attendee SN - CAt - Case Attendee 12/07/2022 7:24 EDT SN - XI - X-Ray Type C-Arm 12/07/2022 7:23 EDT SN - TDC - Device Type DRAIN TAE .25 IN X 12 [place] 100/[place] [id number] SN - TDC - Device Type TRAY GONZALEZ CATH 16F W/BAG 10/CA [id number] SN - TDC - Location ANTERIOR NECK SN - TDC - Location URETHRA SN - TDC - DC'd at End of Case No SN - TDC - DC'd at End of Case Yes 12/07/2022 7:21 EDT SN - CAt - Case Attendee SN - CAt - Case Attendee SN - CAt - Case Attendee SN - CAt - Case Attendee SN - CAt - Case Attendee SN - CAt - Case Attendee SN - CAt - Case Attendee SN - CAt - Case Attendee SN - CAt - Case Attendee SN - CAt - Case Attendee SN - CAt - Case Attendee SN - CAt - Case Attendee SN - CAt - Case Attendee SN - CAt - Case Attendee SN - CAt - Case Attendee SN - CAt - Case Attendee SN - CAt - Role Performed WOOD FINISHER SN - CAt - Role Performed Scrub 1 SN - CAt - Role Performed Casing Sewer 1 SN - CAt - Role Performed Other SN - CAt - Role Performed Java Lead SN - CAt - Role Performed Cripple Chaser SN - CAt - Role Performed Java Lead SN - CAt - Role Performed Physician Seed Potato Cutter 12/07/2022 7:19 EDT SN - CAt - Case Attendee SN - CAt - Case Attendee SN - CAt - Role Performed Primary Surgeon 12/07/2022 7:12 EDT Antecubital Right 12/07/2022 20 gauge Peripheral IV Activity: Insert new site Peripheral IV Dressing Condition: Clean, Dry, Intact Peripheral IV Dressing Activity: Applied, Transparent dressing Peripheral IV Line Status/Patency: Flushes easily Peripheral IV Line Care: Secured with tape Peripheral IV Site Condition: No complications Peripheral IV Equipment: Extension set, PRN Adaptor Peripheral IV Number of Attempts: 1 12/07/2022 7:07 EDT Sodium Chloride 0.9% Begin Bag 1,000 mL mL 12/07/2022 6:58 EDT Patient Instructions Documentation Patient Instructions Documentation 12/07/2022 6:50 EDT Designated Person #1 We May Share PRIMITIVO Santana [phone] Designated Person #1 Relationship Father Designated Person #2 We May Share PRIMITIVO Kwan [phone] Designated Person #2 Relationship Sibling Privacy Restrictions Requested None Height 160 cm Admission Weight 101 kg [place] Body Weight 52.38 kg Temperature Temporal Artery 36.2 DegC Apical Heart Rate 72 bpm Respiratory Rate 21 br/min HI Systolic Blood Pressure Non-Invasive 15 mmHg LOW Diastolic Blood Pressure Non-Invasive 75 mmHg Primary Pain Location Neck Primary Pain Laterality Medial Primary Pain Intensity 4 Primary Pain Quality Aching Pain Scale Type 0-10 Pain scale Oxygen Saturation 98 % Abdomen Palpation Non-Tender Bowel Sounds All Quadrants Present Status No, per patient Skin Integrity Intact Extremity Movement Equal Characteristics of Speech Clear Level of Consciousness Alert Strength All Extremities Moderate Right Upper Extremity Sensation Decreased Affect/Behavior Appropriate, Calm, Cooperative Orientation Oriented x 4 Sensory Deficits None Sleep Apnea Snore No Sleep Apnea Tired No Sleep Apnea Obstruction No Sleep Apnea Pressure No Sleep Apnea BMI No Sleep Apnea Age No Sleep Apnea Neck No Sleep Apnea Gender No Sleep Apnea Score 0 High Risk for Sleep Apnea No Diagnosed With Sleep Apnea No Advanced Directives No - refuses information Infectious Disease Symptoms Patient states no symptoms Infectious Disease Recent Exposure No Alcohol and Drug Use No Employee of Institutional Living No Health Care Employee No History of Exposure to TB No History of Positive Chest X-Ray for TB No History of Positive TB Skin Test No Homeless No Known Immunosuppression No Recent Immigrant No Resident of Institutional Living No Bloody Sputum No Fatigue No Fever No Loss of Appetite No Night Sweats No Persistent Cough > 3 Weeks No Weight Loss No Anirudh Motor (2) Moves 4 extremities voluntarily or on command Anirudh Respirations (2) Spontaneous respiration without support, RR > 10 Anirudh Blood Pressure (2) BP 20% above or below preanesthetic level Anirudh Pulse (2) Pulse 20% above or below preanesthetic level Anirudh Oxygen Saturation (2) 94% or more Anirudh Level of Consciousness (2) Fully awake Anirudh III Score 12 Orientation Assessment Oriented x 4 Safety Brochure Information Reviewed Yes Augusto Correa Video Viewed No Individuals Taught Patient, Parent Barriers to Learning None evident Teaching Method Explanation, Printed materials Teaching Evaluation No further teaching needed Preferred Written Language Romanian Preferred Spoken Language Romanian General Infection Prevention Strategies Hand hygiene, Remind visitor/caregiver to wash hands Infection Prevention Teaching Evaluation Verbalizes/Nonverbally indicates understanding Post op Activity Education Up ad jori Ed-Constipation Verbalizes/Nonverbally indicates understanding Ed-Ice Application Verbalizes/Nonverbally indicates understanding Ed-Infection Signs/Symptoms Verbalizes/Nonverbally indicates understanding Ed-Tubes/Drains/IV's Verbalizes/Nonverbally indicates understanding Ed-DVT Prophylaxis Verbalizes/Nonverbally indicates understanding Ed-DVT Signs and Symptoms Verbalizes/Nonverbally indicates understanding Edu-Bathing Verbalizes/Nonverbally indicates understanding Information Given by Patient Patient's Current Physicians Patient's Current Physicians Discharge To, Anticipated Home with family care Activity Status ADL Awake, Repositions self SCD On/Re-applied bilateral knee high Standard Safety ID band on, Allergy Band on, Call device within reach, Bed in low position, Wheels locked, Visitor at bedside, Safety level maintained Prev Test Positive/Diagnosis w/COVID-19 Yes Previous COVID-19 Positive Date 2021 Current Quarantine/Isolated any Illness No Any Contact with Sick Animals/Birds No Traveled Anywhere in Last 30 Days No Lost Weight Unintentionally Recently No Eat Poorly Due to Decreased Appetite No Total MST Score 0 No Personal Devices, Patient Valuables Glasses Anesthesia/Transfusions Prior anesthesia Admission Note-Nursing Same Day Patient History 12/07/2022 6:41 EDT Urinary Elimination Voiding, no difficulties IV Present Present Allergies Yes Anesthesia Extension Set Applied Yes Blocker Polishing On Yes Consent Form Signed Yes Patient Dressed In Hospital gown Pre-op Preparation Glasses removed CHG Preoperative Wash/Wipe Night before procedure, Day of procedure, Site specific wipe Preop Nasal Swab Povidone-Iodine CHG Skin Prep Completed for Eligible Surgery History & Physical Update On Chart Yes History & Physical On Chart Yes Obstructive Sleep Apnea Assess Completed No Belongings At Bedside Bra, Cell phone, Glasses, Jacket, Pants, Purse, Shirt, Shoes, Socks, Wallet NPO Status Maintained, More than 8 hours Allergy Band on and Verified Yes Patient ID Band on and Verified Yes Implants Verified No Site Verified by Patient/Family Yes Anesthesia Consent Signed Yes Last Fluid Intake 12/06/2022 19:00 Last Food Intake 12/06/2022 19:00 Last Void 12/07/2022 6:45 12/07/2022 6:23 EDT Test Urine Negative test (u) int test (u) int QC PRGUN Negative QC PRGUP Positive . Assessment and Plan [place] [employer] Anesthesiologists (ASA) physical status classification: Class III. Anesthetic Preoperative Plan Premedication: intravenous. Anesthetic technique: General. Induction: intravenously. Maintenance airway: Oral endotracheal tube. Postoperative pain management: Per surgeon. Risks discussed: nausea, vomiting, sore throat. Informed consent: signed by patient. Digitally Signed by GARRY RYDER on 12/07/2022 08:58 AM [facility] 12-07-2022 Note Date of Service 12/07/2022 Chief Complaint Status post C5-7 ACDF Subjective The patient was seen and examined postoperatively. She is lying in bed resting comfortably. Her pain is controlled. She has no complaints including numbness tingling or weakness Objective Vitals and Measurements T: 36.2 C (Temporal Artery) HR: 72(Apical) RR: 21 BP: 15/75 SpO2: 98% HT: 160 cm WT: 101 kg Intake and Output 7AM Yesterday to 7AM Today Intake and Output (Last 24 hours) Intake Output Total Summary Total Intake 0.00 Total Output 0.00 Fluid Balance 0.00 Physical Exam A&O, NAD NCAT, EOMI Neck soft and supple, dressing clean dry and intact, cervical collar in place Regular rate and rhythm Clear to auscultation bilaterally Abdomen soft and nontender Extremities: Sensation and motor intact grossly, no focal deficits, pulses and reflexes are normal and symmetric Weight Dosing Weight: 101 kg (12/07/22) Medications Medications (3) Active Scheduled: (2) clindamycin PMX 600 mg 50 mL, IV Piggyback, PREOP pharm heparin + NS (0.9% nacl) 1,000 mL 30,000 unit(s) 30 mL, Miscellaneous, PREOP pharm Continuous: (1) NS (0.9% nacl) 1,000 mL 1,000 mL, Intravenous, 125 mL/hr PRN: (0) Lab Results No 36 Hour Lab Data EKG No qualifying data available. Assessment/Plan Orders: Antiembolism Stocking Application Thigh High APTT Panel Communication Order (scheduled) IV Catheter Insertion/Care NPO Prothrombin Time - Panel Sequential Compression Device Application Surgical Shave Preparation Urine test (LAB) Vital Signs Okay to admit to floor See orders Discharge planning, likely home tomorrow Digitally Signed by NARENDRA MICHEL DO on 12/08/2022 10:58 AM [facility] Evaluation + Plan note Future Appointments [facility] course Narrative No data available for this section [facility] Discharge instructions No data available for this section [facility] Progress note No data available for this section [facility] Summary Purpose Family History No Family History Records FoundNo Family History Records FoundNo Family History Records FoundNo Family History Records FoundNo Family History Records Found Advance Directives No Advanced Directives Records FoundNo Advanced Directives Records FoundNo Advanced Directives Records FoundNo Advanced Directives Records FoundNo Advanced Directives Records Found Additional Source Comments INFORMATION SOURCE (unrecogn ized section and content) DATE CREATED AUTHOR AUTHOR'S ORGANIZ ATION 05/18/2023 [facility] DATE CREATED AUTHOR AUTHOR'S ORGANIZ ATION 06/01/2023 [facility] ([place]) DATE CREATED AUTHOR AUTHOR'S ORGANIZ ATION 07/08/2023 [facility] DATE CREATED AUTHOR AUTHOR'S ORGANIZ ATION 07/09/2023 [facility] Patient Care team informatio n (unrecognized section and content) Care Team Personnel Name: COLTON MENDIOLA PA-C Member Role: Primary Care Physician Address: Address: [address] [place] [address] Care Team Related Persons Name: PATY SANTANA Care Team Personnel Name: COLTON MENDIOLA PA-C Member Role: Primary Care Physician Address: Address: [address] [place] [address] [place] [address] Care Team Related Persons Name: PATY SANTANA Care Team Personnel Name: COLTON MNEDIOLA PA-C Member Role: Primary Care Physician Address: Address: [address] [place] [address] Care Team Related Persons Name: PATY SANTANA Source Comments (unrecognize d section and content) In the event this informatio n is protected by the Federal Confidentiality of Alcohol and Drug Abuse Patient Records regulations: The Federal rules restrict any use of the information to criminally investigate or prosecute any alcohol or drug abuse patient.[facility] the event this information is protected by the Federal Confidentiality of Alcohol and Drug Abuse Patient Records regulations: The Federal rules restrict any use of the information to criminally investigate or prosecute any alcohol or drug abuse patient.[facility] Reason for Visit (unrecogniz ed section and content) Reason Comments Insurance Authorization Authorization [facility] received. Auth # [id number] FOR RECORDS PERTAINING TO PATIENTS WHO ARE OR HAVE BEEN ENROLLED IN A CHEMICAL DEPENDENCY/SUBSTANCEABUSE PROGRAM, SOME INFORMATION MAY BE OMITTED. This clinical summary was aggregated from multiple sources. Caution should be exercised in using it in the provision of clinical care. This summary normalizes information from multiple sources, and as a consequence, information in this document may materially change the coding, format and clinical context of patient data. In addition, data may be omitted in some cases. CLINICAL DECISIONS SHOULD BE BASED ON THE PRIMARY CLINICAL RECORDS. [facility]. provides no warranty or guarantee of the accuracy or completeness of information in this document.
--- NOTE | 2023-07-18 22:34 | EX.ED.DYSGE1 ---
HPI History of Present Illness Chief Complaint: Other, Pain/Inj Informant: patient Narrative Narrative: Patient is a 37-year-old female with past medical history of factor V Leiden deficiency anxiety and depression and degenerative disc disease of her cervical spine requiring decompression. 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 She states that today she was mopping for an hour and a half and after this she noticed pain in her left shoulder/neck region. She states there was no direct trauma but she states she has a hard time turning her neck to the left. She states she tried [id number] medications without any symptom improvement and therefore comes in for evaluation [facility] Medical History Acute pharyngitis, unspecified Anxiety and depression Chronic migraine Chronic neck and back pain Factor 5 Leiden mutation, heterozygous History of nephrolithiasis History of venous thromboembolism Obesity Tobacco use Home Medications medroxyprogesterone 150 mg/mL intramuscular syringe 150 mg IM .[id number] control 01/30/15 [History Last Taken Unknown] topiramate 25 mg tablet 200 mg PO BID 01/30/15 [History Last Taken Unknown] citalopram 40 mg tablet 40 mg PO DAILY mental health 04/04/19 [History Last Taken Unknown] haloperidol 5 mg tablet 2.5 mg PO TID PRN Anxiety 04/04/19 [History Last Taken Unknown] apixaban 5 mg tablet 5 mg PO BID blood thinner 06/03/20 [History Last Taken Unknown] baclofen 20 mg tablet 10 - 20 mg PO TID PRN Spasms 06/03/20 [History Last Taken Unknown] cholecalciferol (vitamin D3) 50 mcg (2,000 unit) capsule 2,000 unit PO DAILY vitamin 06/03/20 [History Last Taken Unknown] acetaminophen 325 mg capsule (Tylenol) 325 mg PO ONCE PRN Pain 1-10 Or Fever 08/26/20 [History Last Taken Unknown] lidocaine 5 % topical patch (Lidoderm) 1 patch topical DAILY pain #6 ea 04/13/21 [Rx Last Taken Unknown] albuterol sulfate 90 mcg/actuation aerosol inhaler 2 puff inhalation Q6H PRN CONGESTION/ALLERGIES 03/15/23 [History Last Taken Unknown] cetirizine 10 mg tablet 10 mg PO .DAILY AM allergies 03/15/23 [History Last Taken Unknown] famotidine 40 mg tablet 40 mg PO Q12H reflux 10/04/23 [History Last Taken Unknown] lamotrigine 200 mg tablet 200 mg PO DAILY seizures 03/15/23 [History Last Taken Unknown] montelukast 10 mg tablet 10 mg PO QHS allergies 03/15/23 [History Last Taken Unknown] sumatriptan succinate 100 mg tablet 100 mg PO Q2H PRN migraine headache 03/15/23 [History Last Taken Unknown] triamcinolone acetonide 55 mcg nasal spray aerosol 2 spray intranasal DAILY 03/15/23 [History Last Taken Unknown] potassium chloride 20 mEq tablet,extended release(part/cryst) 20 meq PO BID #20 tabs 03/16/23 [Rx Last Taken Unknown] benzonatate 200 mg capsule 200 mg PO TID PRN cough #20 caps 04/25/23 [Rx Last Taken Unknown] chlorhexidine gluconate 0.12 % mouthwash (Peridex) 15 ml buccal BID #120 mL 07/16/23 [Rx Last Taken Unknown] mupirocin 2 % topical ointment 1 applic topical TID #15 grams 07/16/23 [Rx Last Taken Unknown] methocarbamol 500 mg tablet 1,000 mg (2 x 500 mg) PO 4X/DAY PRN PRN Muscle pain/spasm 7 days #56 tabs 07/18/23 [Rx Last Taken Unknown] oxycodone-acetaminophen 5 mg-325 mg tablet (Percocet) 1 tab PO Q6H PRN pain 3 days #12 tabs 07/18/23 [Rx Last Taken Unknown] Allergy/AdvReac Type Severity Reaction Status Date / Time acetaminophen [From [employer] [place]] Allergy Itching Verified 07/18/23 21:35 hydrocodone [From [employer] [place]] Allergy Itching Verified 07/18/23 21:35 cephalexin monohydrate AdvReac WEAKNESS, Verified 07/18/23 21:35 [From [place]] MUSCLE ACHES PERCOCET AdvReac Intermediate Itching Uncoded 06/02/23 11:54 Family History Mother Heart disease CVA (cerebral vascular accident) Diabetes Father No problems noted. Surgical History History of carpal tunnel release History of toe surgery S/P cervical spinal fusion Social History household members: other details: Lives in her home with her 3 children, youngest 9. Smoking Status: Current every day smoker tobacco type: cigarettes, e-cigarettes and smokeless tobacco alcohol intake: never substance use type: does not use ROS ROS ED Constitutional Constitutional ED: Denies chills or fever(s) Eyes Eyes: Denies change in vision ENT ENT ED: Denies sore throat Cardiovascular Cardiovascular: Denies chest pain Respiratory/Chest Respiratory/Chest: Denies cough or dyspnea Gastrointestinal Gastrointestinal: Denies abdominal pain, diarrhea, nausea or vomiting Genitourinary Genitourinary ED: Denies dysuria Musculoskeletal Musculoskeletal: Reports back pain and neck pain Integumentary Denies Abrasions or rash Neurologic Neurologic: Denies headache(s), paresthesias or weakness Hematologic/Lymphatic Hematologic/Lymphatic: Denies easy bleeding or easy bruising EXAM Physical Exam Const Vital Signs: 07/18/23 21:35 07/18/23 21:42 Temperature 96.4 F L Temperature Source Temporal Pulse Rate 76 Respiratory Rate 18 Respiratory Effort Normal Respiratory Pattern Normal Blood Pressure 127/71 H Blood Pressure Mean 89 Pulse Ox 100 Oxygen Delivery Method Room Air Positive well nourished and well developed General Appearance ED: well developed HEENT Reports moist mucous membranes HEENT Narrative: No tongue or lip swelling no oral lesions no airway edema or compromise No signs of infection noted in the posterior pharynx Eyes PERRL and EOMs intact bilaterally Neck Neck Narrative: No bony deformity or step-off of the cervical spine no midline pain on palpation There is tension and spasm noted along the left sternocleidomastoid muscle belly region as well as the left rhomboid muscle belly region. Pain worsens with rotation to the left as well as sidebending of the left ear towards the shoulder. There is also pain with motion of the left shoulder. Patient has a surgical scar across the anterior aspect of her neck from previous cervical decompression surgery however the wound is well-healed and there are no secondary changes to suggest infection. Resp normal respiratory effort and clear to auscultation bilaterally Cardio regular rate and regular rhythm Rate: other Other Details: Radial and carotid pulses are equal and symmetric Back/Spine Back/Spine Narrative: There is tension and spasm noted along the left rhomboid muscle belly that worsens with shoulder motion Otherwise no bony deformity or step-off of the thoracic or lumbar spine Extremity normal to inspection Extremity Narrative: Bilateral extremities are neurovascularly intact; AIN/PIN are intact and normal No bony deformity or joint effusion or sulcus sign noted to the left shoulder Neuro oriented x3, CN's II-XII intact bilaterally and no sensory deficits noted Sensorium / Orientation: alert Psych mental status grossly normal Skin no rashes or lesions noted Skin Narrative: No overlying soft tissue changes to suggest trauma or infection MDM MDM MDM Narrative Medical decision making narrative: Patient presented to the ER with stable vitals and reported tension and pain to the left neck and shoulder 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 There is no report or signs of direct trauma so my concern for underlying bony injury is low and I do not feel there is need for x-rays. Patient does not have any signs of infection in the posterior pharynx and therefore do not feel this is the cause of her pain. Also she has had previous neck surgery but it is old in nature so my concern for discitis is low and I do not feel the need for workup. History and exam is indicative that this is musculoskeletal in nature and spasm and therefore she is given symptomatic care and discharged home History & Record Review Discussion w/independent historian: Patient Discharge Plan Triage Chief Complaint: Other, Pain/Inj ED Provider: Damion Saucedo Dx/Rx/DC Orders Clinical Impression: Muscle spasm, Acute cervical myofascial strain, Factor V Leiden Instructions: ED Muscle Spasm, ED Neck Sprain or Strain Prescriptions: New methocarbamol 500 mg tablet 1,000 mg PO 4X/DAY PRN PRN (Reason: Muscle pain/spasm) 7 Days Qty: 56 0RF oxycodone-acetaminophen [Percocet] 5-325 mg tablet 1 tab PO Q6H PRN (Reason: pain) 3 Days Qty: 12 0RF No Action acetaminophen [Tylenol] 325 mg capsule 325 mg PO ONCE PRN (Reason: Pain 1-10 Or Fever) benzonatate 200 mg capsule 200 mg PO TID PRN (Reason: cough) Qty: 20 0RF chlorhexidine gluconate [Peridex] 0.12 % mouthwash 15 ml buccal BID Qty: 120 1RF mupirocin 2 % ointment 1 applic topical TID Qty: 15 0RF topiramate 25 MG tablet 200 mg PO BID medroxyprogesterone 150 MG/ML syringe 150 mg IM .[id number] citalopram 40 MG tablet 40 mg PO DAILY haloperidol 5 MG tablet 2.5 mg PO TID PRN (Reason: Anxiety) cholecalciferol (vitamin D3) 2,000 UNIT capsule 2,000 unit PO DAILY apixaban 5 MG tablet 5 mg PO BID baclofen 20 MG tablet 10 - 20 mg PO TID PRN (Reason: Spasms) lidocaine [Lidoderm] 5 % adhesive patch,medicated 1 patch topical DAILY Qty: 6 0RF Rx Instructions: leave on most painful area for up to 12 hrs lamotrigine 200 mg tablet 200 mg PO DAILY Patient Comments: TAKE 1 TABLET BY MOUTH ONCE DAILY IN THE MORNING cetirizine 10 mg tablet 10 mg PO .DAILY AM sumatriptan succinate 100 mg tablet 100 mg PO Q2H PRN (Reason: migraine headache) Patient Comments: TAKE ONE TABLET BY MOUTH AT ONSET OF HEADACHE, MAY REPEAT IN 2 HOURS. MAX 200 MG IN 24 HOURS famotidine 40 mg tablet 40 mg PO Q12H Patient Comments: PT TAKES AT DINNER TIME AND THEN ONE AT BEDTIME triamcinolone acetonide 55 mcg aerosol,spray 2 spray INTRANASAL DAILY Patient Comments: USE 2 SPRAY(S) INTRANASALLY ONCE DAILY montelukast 10 mg tablet 10 mg PO QHS Patient Comments: TAKE 1 TABLET BY MOUTH ONCE DAILY albuterol sulfate 90 mcg/actuation HFA aerosol inhaler 2 puff inhalation Q6H PRN (Reason: CONGESTION/ALLERGIES) potassium chloride 20 mEq tablet,ER particles/crystals 20 meq PO BID Qty: 20 0RF Stand Alone Forms: ED Work / School Excuse Primary Care Provider: Neli Reyes Referrals: Neli Reyes NP-C [Primary Care Provider] - Activity Restrictions/Additional Instructions: Please continue to stretch and heat your neck to reduce pain and speed healing. Take the prescribed medications as directed to help control symptoms and return to the ER should you have any further concerns Disposition Disposition: Home, Self Care Discharge Date/Time: 07/18/23 22:59
[2023-07-18] MEDS: Orphenadrine 100 MG Tablet PO (22:55)
== END 2023-07-18 22:59 | disposition home or self-care (01) ==
PROVIDERS: Emergency Provider Emergency Medicine; PCP Nurse Practitioner Family; Visit Provider Emergency Medicine
DX: S16.1XXA Strain of muscle, fascia and tendon at neck level, initial encounter (principal); D68.2 Hereditary deficiency of other clotting factors; M62.838 Other muscle spasm; X58.XXXA Exposure to other specified factors, initial encounter; Y93.E5 Activity, floor mopping and cleaning; G43.709 Chronic migraine without aura, not intractable, without status migrainosus; M50.30 Other cervical disc degeneration, unspecified cervical region; G89.29 Other chronic pain; F32.A Depression, unspecified; F41.9 Anxiety disorder, unspecified; E66.9 Obesity, unspecified; F17.210 Nicotine dependence, cigarettes, uncomplicated; F17.290 Nicotine dependence, other tobacco product, uncomplicated; Z79.01 Long term (current) use of anticoagulants; Z79.899 Other long term (current) drug therapy
CPT/HCPCS: 99284

== ENCOUNTER 2023-08-29 21:03 | Observation (INO) | payer MEDICAID, SELFPAY ==
[2023-08-29 21:05] VITALS: BP 121/67; PULSE 66; RESP 16; TEMP 36.8; O2SAT 98; BMI 35.4
--- NOTE | 2023-08-29 21:21 | EKG12_ITS ---
Test Reason : NEURO Blood Pressure : / mmHG Vent. Rate : 063 BPM Atrial Rate : 063 BPM P-R Int : 150 ms QRS Dur : 084 ms QT Int : 390 ms P-R-T Axes : 055 023 013 degrees QTc Int : 399 ms Normal sinus rhythm with sinus arrhythmia Normal ECG Confirmed by Jerome Fall ([id number]), editor greeting card DIANA GOODMAN ([id number]) on 08/31/2023 10:59:55 AM Referred By: Confirmed By:Jerome Fall
[2023-08-29 22:00] VITALS: BP 117/73; PULSE 69; RESP 17; O2SAT 100
[2023-08-29 22:00] LABS: Absolute Neutrophil Count 3.6 X10^3/uL (2.0-7.7); Basophil# 0.06 X10^3/uL; Basophil% 0.8 % (0-1); Eosinophil# 0.14 X10^3/uL; Eosinophils% 1.9 % (0-5); Hematocrit 36.4 % (37-47); Hemoglobin 11.9 g/dL (12.0-15.0); Lymphocyte % 42.1 % (19-41); Mean Corp Hgb Conc 32.7 g/dL (32-36); Mean Corpuscular Hgb 30.6 pg (27.0-32.0); Mean Corpuscular Volume 93.6 fL (81-99); Mean Platelet Vol. 9.7 fl (6.2-12.0); Monocyte# 0.42 X10^3/uL; Monocyte% 5.7 % (0-10); NRBC Flagged by Analyzer 0 % (0-5); Neutrophil # 3.63 X10^3/uL (2.7-7.7); Neutrophil % 49.4 % (47-70); Platelet Count 192 K/mm3 (150-450); RBC Distribution Width CV 13.3 % (11.6-14.6); RBC Distribution Width SD 45.8 fl (35.1-43.9); Red Blood Count 3.89 M/mm3 (4.2-5.4); White Blood Count 7.4 K/mm3 (4.4-11.0)
--- NOTE | 2023-08-29 22:00 | CT_ITS ---
We are attempting to reach an attending provider to discuss findings. An addendum with communication details will be sent when the communication is complete. INDICATION: Neuro deficit, acute, stroke suspected EXAMINATION: CT BRAIN - CT Head Stroke Protocol W/O Contrast Injection TECHNIQUE: Multiple axial images were obtained of the head without intravenous contrast. A radiation dose optimization technique was used for this scan. IV Contrast dosage and agent: None. RADIATION DOSAGE (If Supplied By Facility): CTDIvol = ( 45 ) mGy, DLP = ( 762 ) mGycm COMPARISON: Prior study dated: MRI from 03/16/2023 FINDINGS: BRAIN PARENCHYMA: No intra- or extra-axial hemorrhage. No evidence of acute infarct. No intracranial mass or mass effect. There is preservation of the salvador/white matter interface. Posterior fossa structures are unremarkable. No parenchymal abnormality. CSF SPACES: No cerebral volume loss. No hydrocephalus. Basal cisterns are patent. CALVARIUM, SKULL BASE, PARANASAL SINUSES AND MASTOID AIR CELLS: The mastoid air cells and visualized paranasal sinuses are well aerated. The calvarium is intact. No discrete lytic or blastic abnormalities. ORBITS: Both globes, extraocular muscles, optic nerves and retrobulbar fat appear unremarkable. CT/Brain/Head without Contrast IMPRESSION: No acute intracranial finding. Electronically Signed: Aubrey Montero MD at 22:33 EDT ,
--- NOTE | 2023-08-29 22:07 | ED.VIS.STROK ---
HPI History of Present Illness Chief Complaint: Neuro S/Sx Detail of Chief Complaint: Patient reports she did not feel well at work. Coworkers noted that her sp Informant: patient Onset/Context/Timing Onset: Hours Context: Sudden Onset Timing: Intermittent (Uncertain how long it lasted for) Quality and Location: Positive for Slurred Speech Onset: 1899 Current Severity: Gone Maximum Severity: Mild Worsened by: Nothing Relieved by: Nothing Associated Symptoms Associated Symptoms: Negative for Headache, Nausea, Vomiting or Chest Pain Narrative Narrative: Patient is a 37-year-old woman with history of factor V Leiden and prior VTE. She is on long-term anticoagulant. She states she has been on anticoagulant for the past 5 years. She was admitted March 2023 for TIA. Patient reports compliance with her anticoagulant. She presently denies headache, visual, ocular auditory symptoms. She feels her speech is back to normal. She states she does not feel right. She denies problems with coordination or balance. She denies paresthesia, anesthesia or weakness of her upper or lower extremities. She denies history of trauma. Prior similar symptoms: Yes Recent Illness/Hospitalization: No PFSH PFSH Medical History Acute pharyngitis, unspecified Anxiety and depression Chronic migraine Chronic neck and back pain Factor 5 Leiden mutation, heterozygous History of nephrolithiasis History of venous thromboembolism Obesity Tobacco use Home Medications medroxyprogesterone 150 mg/mL intramuscular syringe 150 mg IM .[id number] control 01/30/15 [History Last Taken Unknown] topiramate 25 mg tablet 200 mg PO BID 01/30/15 [History Last Taken Unknown] citalopram 40 mg tablet 40 mg PO DAILY mental health 04/04/19 [History Last Taken Unknown] haloperidol 5 mg tablet 2.5 mg PO TID PRN Anxiety 04/04/19 [History Last Taken Unknown] apixaban 5 mg tablet 5 mg PO BID blood thinner 06/03/20 [History Last Taken Unknown] baclofen 20 mg tablet 10 - 20 mg PO TID PRN Spasms 06/03/20 [History Last Taken Unknown] cholecalciferol (vitamin D3) 50 mcg (2,000 unit) capsule 2,000 unit PO DAILY vitamin 06/03/20 [History Last Taken Unknown] acetaminophen 325 mg capsule (Tylenol) 325 mg PO ONCE PRN Pain 1-10 Or Fever 08/26/20 [History Last Taken Unknown] lidocaine 5 % topical patch (Lidoderm) 1 patch topical DAILY pain #6 ea 04/13/21 [Rx Last Taken Unknown] albuterol sulfate 90 mcg/actuation aerosol inhaler 2 puff inhalation Q6H PRN CONGESTION/ALLERGIES 03/15/23 [History Last Taken Unknown] cetirizine 10 mg tablet 10 mg PO .DAILY AM allergies 03/15/23 [History Last Taken Unknown] famotidine 40 mg tablet 40 mg PO Q12H reflux 03/15/23 [History Last Taken Unknown] lamotrigine 200 mg tablet 200 mg PO DAILY seizures 03/15/23 [History Last Taken Unknown] montelukast 10 mg tablet 10 mg PO QHS allergies 03/15/23 [History Last Taken Unknown] sumatriptan succinate 100 mg tablet 100 mg PO Q2H PRN migraine headache 03/15/23 [History Last Taken Unknown] triamcinolone acetonide 55 mcg nasal spray aerosol 2 spray intranasal DAILY 03/15/23 [History Last Taken Unknown] potassium chloride 20 mEq tablet,extended release(part/cryst) 20 meq PO BID #20 tabs 03/16/23 [Rx Last Taken Unknown] benzonatate 200 mg capsule 200 mg PO TID PRN cough #20 caps 04/25/23 [Rx Last Taken Unknown] chlorhexidine gluconate 0.12 % mouthwash (Peridex) 15 ml buccal BID #120 mL 07/16/23 [Rx Last Taken Unknown] mupirocin 2 % topical ointment 1 applic topical TID #15 grams 07/16/23 [Rx Last Taken Unknown] methocarbamol 500 mg tablet 1,000 mg (2 x 500 mg) PO 4X/DAY PRN PRN Muscle pain/spasm 7 days #56 tabs 07/18/23 [Rx Last Taken Unknown] oxycodone-acetaminophen 5 mg-325 mg tablet (Percocet) 1 tab PO Q6H PRN pain 3 days #12 tabs 07/18/23 [Rx Last Taken Unknown] Allergy/AdvReac Type Severity Reaction Status Date / Time acetaminophen [From [place]] Allergy Itching Verified 08/29/23 21:04 hydrocodone [From [place]] Allergy Itching Verified 08/29/23 21:04 cephalexin monohydrate AdvReac WEAKNESS, Verified 08/29/23 21:04 [From [place]] MUSCLE ACHES PERCOCET AdvReac Intermediate Itching Uncoded 07/27/23 15:36 Family History Mother Heart disease CVA (cerebral vascular accident) Diabetes Father No problems noted. Surgical History History of carpal tunnel release History of toe surgery S/P cervical spinal fusion Social History household members: other details: Lives in her home with her 3 children, youngest 9. Smoking Status: Current every day smoker tobacco type: cigarettes, e-cigarettes and smokeless tobacco alcohol intake: never substance use type: does not use ROS ROS ED Constitutional Constitutional ED: Reports weakness; Denies chills, fever(s), subjective or sweats Eyes Eyes: Denies blurry vision, change in vision or diplopia ENT ENT ED: Denies ear pain, rhinorrhea or sore throat Cardiovascular Cardiovascular: Denies chest pain or palpitations Respiratory/Chest Respiratory/Chest: Denies cough, dyspnea or dyspnea on exertion Gastrointestinal Gastrointestinal: Denies abdominal pain, melena, nausea or vomiting Genitourinary Genitourinary ED: Denies dysuria, hematuria or other Musculoskeletal Musculoskeletal: Denies arthralgias, back pain, myalgias or neck pain Integumentary Denies rash Neurologic Neurologic: Reports weakness and other Details: Per coworker she had slurred speech. Uncertain duration. ; Denies headache(s) or paresthesias Psychiatric Psychiatric: Reports anxiety and other Details: Patient states she has a history anxiety. She was not certain if her symptoms were initially due to anxiety reaction or not. Endocrine Endocrinology: Denies polydipsia, polyphagia or polyuria Hematologic/Lymphatic Hematologic/Lymphatic: Reports easy bruising; Denies easy bleeding EXAM Physical Exam Const Vital Signs: 08/29/23 21:05 08/29/23 22:11 08/29/23 22:00 Temperature 98.2 F Temperature Source Temporal Pulse Rate 66 69 Respiratory Rate 16 17 Blood Pressure 121/67 H 117/73 Blood Pressure Mean 85 87 Pulse Ox 98 100 Oxygen Delivery Method Room Air Room Air Room Air Positive well nourished, well developed and obese General Appearance ED: well developed and NAD Nutritional Appearance: obese HEENT Reports TM's clear and moist mucous membranes atraumatic Tympanic Membrane ED: Yes TM's clear Eyes PERRL and EOMs intact bilaterally General Eye ED: Negative for pale conjunctiva or scleral icterus Neck no lymphadenopathy, supple and no JVD Chest Wall inspection of chest normal and palpation of chest normal Resp normal respiratory effort and clear to auscultation bilaterally Cardio no murmurs Rate: regular rate Rhythm: regular rhythm Heart Sounds: S1 normal and S2 normal GI normal to inspection, nondistended, normoactive bowel sounds, soft to palpation, non-tender, non-distended and no masses Extremity normal to inspection General Extremety ED: Negative for deformity or edema General Extremity: Negative for deformity or edema Neuro oriented x3, CN's II-XII intact bilaterally and no sensory deficits noted Neuro Narrative: There is no dysmetria. Brody Coma Scale: document GCS findings Spontaneous Obeys Commands Oriented 15 Sensorium / Orientation: alert Speech: speech normal Motor Exam: strength 5/5 throughout Psych mental status grossly normal Skin no wounds General Skin Exam: Negative for jaundice Lesions: no lesions Rashes: no rashes NIHSS NIHSS Initial: 1a Level of Consciousness: 0 1b LOC Questions (Score 2 if aphasic/stupor): 0 1c LOC Commands (Only score 1st attempt): 0 2 Best Gaze (If aphasic, use reflexive mvmts.): 0 3 Visual: 0 4 Facial Palsy: 0 5 Motor Arm Right (UN = amputation/fusion): 0 5 Motor Arm Left: 0 6 Motor Leg Right: 0 6 Motor Leg Left: 0 7 Limb ataxia (Only + if out of proportion): 0 8 Sensory (Aphasia/stupor=0 or 1, coma=2): 0 9 Best Language: 0 10 Dysarthria (mute, coma=2, intubated=UN): 0 11 Extinction and Inattention (only scored if +): 0 Total Score: 0 MDM MDM MDM Narrative Medical decision making narrative: Patient with history of factor V heterozygous deficiency prior stroke and complain of mild headache on anticoagulant obtain CT of the head to rule out bleed. Suspect patient had TIA. Because her NIH is 0 CTA was not obtained. More importantly she had recent workup including MRI in March that revealed no vascular disease. History & Record Review Additional record(s) reviewed:: Prior inpatient record (Admitted March 2023 for TIA), Prior outpatient record (Recent visit for gout), Prior ED visit (Upper respiratory symptoms and minor complaints) and Prior labs Lab Data Attestation: I reviewed the patient's lab results. Lab results narrative: CBC is remarkable for mild anemia with normal indices. Basic metabolic panel is normal. Troponin is normal. Coags are normal. Labs: Laboratory Results - last 24 hr 08/29/23 08/29/23 21:49 22:05 WBC 7.4 RBC 3.89 L Hgb 11.9 L Hct 36.4 L MCV 93.6 MCH 30.6 MCHC 32.7 RDW Std Deviation 45.8 H RDW Coeff of Sharmin 13.3 Plt Count 192 MPV 9.7 Immature Gran % (Auto) 0.100 Neut % (Auto) 49.4 Lymph % (Auto) 42.1 H [place] % (Auto) 5.7 Eos % (Auto) 1.9 Baso % (Auto) 0.8 Absolute Neuts (auto) 3.6 Absolute Lymphs (auto) 3.10 Nucleated RBC % 0 PT 15.2 H INR 1.2 APTT 31.1 Sodium 142 Potassium 3.4 L Chloride 113 H Carbon Dioxide 23.0 Anion Gap 6 BUN 9 Creatinine 0.94 Estim Creat Clear Calc 86.66 Est GFR (MDRD) Af Amer 87 Est GFR (MDRD) Non-Af 72 BUN/Creatinine Ratio 9.6 L Glucose 92 Calcium 9.0 Troponin I High Sens 6 Radiography Chest X-Ray - ED: 1 View and Read by ED Physician (Single view chest x-ray as interpreted by me as normal. Cardiac silhouette and size normal. Lung parenchyma normal. Mediastinum normal. Osseous structures reveal no acute abnormality. This was independent reviewed interpreted by me at 2247.) Diagnostic Testing: Clinical Impression(s) from Imaging Studies Brain CT 08/29/23 22:00 IMPRESSION: No acute intracranial finding. Electronically Signed: Aubrey Montero MD at 22:33 EDT , ADDENDUM: 08/29/237 IMPRESSION: No acute intracranial finding. N.B. : The above Results were Read Back by Aubrey Montero MD to Dr. Vincent MD, and understanding confirmed on 08/29/2023 22:41:11 (ET). Electronically Signed: Aubrey Montero MD at 22:33 EDT , ADDENDUM: 08/29/232251 IMPRESSION: No acute intracranial finding. N.B. : The above Results were Read Back by Aubrey Montero MD to Dr. Vincent MD, and understanding confirmed on 08/29/2023 22:45:46 (ET). Electronically Signed: Aubrey Montero MD at 22:33 EDT , Chest X-Ray 08/29/23 22:18 IMPRESSION: No acute pulmonary finding. Electronically Signed: Aubrey Montero MD at 23:03 EDT , EKG Initial EKG: Attestation: I personally reviewed and interpreted this EKG as follows: Interpretation: Sinus Rhythm (Rate is 63. There is sinus variation. EKG is normal. MO interval is 150 ms. QRS duration 84 ms. QT durations 190 ms. Boon is normal) Management Discussion w/another healthcare provider: Hospitalist (Spoke to hospitalist. She knows patient well. PCU observation) and Radiologist (Regarding read on CT head without contrast.) Treatment and Re-Evaluation Narrative: CTA of the head and neck was not obtained because patient has an NIH of 0 and had a MRI CTA March 2023. Discharge Plan Dx/Rx/DC Orders Clinical Impression: Dysarthria, Factor V Leiden, Brain TIA Disposition Disposition: Acute Care Hospital [facility]
[2023-08-29 22:11] LABS: International Normalized Ratio 1.2; Partial Thromboplast Time 31.1 Seconds (24.1-36.2); Prothrombin Time (Protime)PT. 15.2 SECONDS (11.7-14.9)
[2023-08-29 22:14] LABS: Anion Gap 6 (5-15); BUN 9 mg/dL (7-18); BUN/Creat Ratio 9.6 RATIO (10-20); Chloride 113 mmol/L (98-107); Creatinine, Serum 0.94 mg/dL (0.55-1.02); EST Glomerular Filtration Rate 72 mL/min (>60); Est Glom Filt Rate - Afr Amer 87 mL/min (>60); Estimated Creatinine Clearance 86.66 ml/min; Glucose 92 mg/dL (74-106); Potassium 3.4 mmol/L (3.5-5.1); Sodium Level 142 mmol/L (136-145)
[2023-08-29 22:16] VITALS: BMI 36.1
--- NOTE | 2023-08-29 22:18 | RAD_ITS ---
INDICATION: Neuro deficit, acute, stroke suspected EXAMINATION/TECHNIQUE: X-RAY - XR Chest 1 View COMPARISON: Prior study dated: 06/24/2019 FINDINGS: LINES/DEVICES: None. LUNGS: The lungs are well expanded. No consolidation, edema or effusion. No pneumothorax. MEDIASTINUM AND CARDIOVASCULAR STRUCTURES: Cardiac silhouette not enlarged. Central airways and mediastinal contour are unremarkable. BONES AND SOFT TISSUES: No acute abnormality. Cervical fusion hardware. RAD/Chest 1 View IMPRESSION: No acute pulmonary finding. Electronically Signed: Aubrey Montero MD at 23:03 EDT ,
[2023-08-29 22:32] LABS: Troponin-I HS 6 pg/mL (3.0-54.0)
[2023-08-29 23:00] VITALS: BP 102/63; PULSE 55; RESP 20; O2SAT 100
--- NOTE | 2023-08-29 23:06 | HP.PCM.HOS_ITS ---
HPI - General General Date of Admission: 08/29/23 Date of Service: 08/29/23 Chief Complaint: Transient slurred speech. HPI Narrative The patient is a 37 y/o F w/ PMHx: GERD, Allergic rhinitis, Chronic anemia, Chronic migraines, Obesity, Chronic neck and back pain with associated radiculopathy, Hx VTE (DVT, PE) with Factor V Leiden mutation/heterozygous on chronic eliquis regimen, Tobacco use, Anxiety and Depression/Suspected Bipolar disorder who presents to the [facility] ED on 08/29/23 with history of generalized fatigue and malaise reportedly not feeling well at work with onset at approximately 1900 slurred speech although from discussions unclear exact duration with no associated headache or any other neurological deficits with improvement of her speech back to her baseline upon ED arrival given concern for recurrent TIA with history of admission 03/2023 for TIA with negative MRI at that time. In the ED NIH stroke scale 0. Workup in the ED included T98.2, heart rate 66, BP 121/67, respiratory rate 16, 98% on room air, CBC with WBC 7.4, hemoglobin 11.9, MCV 93.6, platelet 192 without marked shift, unremarkable coags asides PT 15.2, BMP with potassium 3.4, chloride 113 otherwise not marked appearing, troponin 6, chest x-ray with no acute cardiopulmonary findings, CT brain with no acute intracranial findings, EKG with SR without acute evidence of ischemia. [facility] Medical History Anxiety and depression Chronic migraine Chronic neck and back pain Factor 5 Leiden mutation, heterozygous History of nephrolithiasis History of venous thromboembolism Obesity Tobacco use Home Medications medroxyprogesterone 150 mg/mL intramuscular syringe 150 mg IM .[id number] control 01/30/15 [History Last Taken Unknown] topiramate 25 mg tablet 200 mg PO BID 01/30/15 [History Last Taken Unknown] citalopram 40 mg tablet 40 mg PO DAILY mental health 04/04/19 [History Last Taken Unknown] haloperidol 5 mg tablet 2.5 mg PO TID PRN Anxiety 04/04/19 [History Last Taken Unknown] apixaban 5 mg tablet 5 mg PO BID blood thinner 06/03/20 [History Last Taken Unknown] cholecalciferol (vitamin D3) 50 mcg (2,000 unit) capsule 2,000 unit PO DAILY vitamin 06/03/20 [History Last Taken Unknown] acetaminophen 325 mg capsule (Tylenol) 325 mg PO ONCE PRN Pain 1-10 Or Fever 08/26/20 [History Last Taken Unknown] lidocaine 5 % topical patch (Lidoderm) 1 patch topical DAILY pain #6 ea 04/13/21 [Rx Last Taken Unknown] albuterol sulfate 90 mcg/actuation aerosol inhaler 2 puff inhalation Q6H PRN CONGESTION/ALLERGIES 03/15/23 [History Last Taken Unknown] cetirizine 10 mg tablet 10 mg PO .DAILY AM allergies 03/15/23 [History Last Taken Unknown] famotidine 40 mg tablet 40 mg PO Q12H reflux 03/15/23 [History Last Taken Unknown] lamotrigine 200 mg tablet 200 mg PO DAILY seizures 03/15/23 [History Last Taken Unknown] montelukast 10 mg tablet 10 mg PO QHS allergies 03/15/23 [History Last Taken Unknown] triamcinolone acetonide 55 mcg nasal spray aerosol 2 spray intranasal DAILY 03/15/23 [History Last Taken Unknown] chlorhexidine gluconate 0.12 % mouthwash (Peridex) 15 ml buccal BID #120 mL 07/16/23 [Rx Last Taken Unknown] rimegepant 75 mg disintegrating tablet (Nurtec ODT) 75 mg PO DAILY PRN MIGRAINE 08/30/23 [History Last Taken Unknown] Allergy/AdvReac Type Severity Reaction Status Date / Time acetaminophen [From [facility]] Allergy Itching Verified 08/29/23 21:04 hydrocodone [From [facility]] Allergy Itching Verified 08/29/23 21:04 cephalexin monohydrate AdvReac WEAKNESS, Verified 08/29/23 21:04 [From [facility]ef[facility]] MUSCLE ACHES PERCOCET AdvReac Intermediate Itching Uncoded 07/27/23 15:36 Family History Mother Heart disease CVA (cerebral vascular accident) Diabetes Father No problems noted. Surgical History History of carpal tunnel release History of toe surgery S/P cervical spinal fusion Social History (Updated 08/30/23 @ 00:[address] Bridgett Ponce MD) household members: other details: Lives in her home with her 3 children, youngest 9. Smoking Status: Current every day smoker tobacco type: cigarettes, e-cigarettes and smokeless tobacco alcohol intake: never substance use type: does not use ROS ROS Narrative Admission Review of Systems: CONSTITUTIONAL: No weight loss, fever, chills, + weakness or fatigue. HEENT: + Chronic Headaches. Eyes: No visual loss, blurred vision, double vision or yellow sclerae. Ears, Nose, Throat: No hearing loss, sneezing, congestion, runny nose or sore throat. SKIN: No rash or itching, lesions, wounds. CARDIOVASCULAR: No chest pain, chest pressure or chest discomfort, palpitations, edema, orthopnea, syncopal events. RESPIRATORY: No shortness of breath, cough or sputum, wheezing, hemoptysis. GASTROINTESTINAL: No anorexia, nausea, vomiting or diarrhea, abdominal pain, melena, BRBPR. GENITOURINARY: No dysuria, frequency, urgency or retention. NEUROLOGICAL: + Transient slurred speech/dysarthria, chronic history of neck/back pain status post recent cervical fusion with right-sided radiculopathy and weakness unchanged, headaches/chronic migraines. No dizziness, syncope, paralysis, ataxia, change in bowel or bladder control, seizure. MUSCULOSKELETAL: + muscle, back pain, joint pain or stiffness. HEMATOLOGIC: + Easy bleeding or bruising. LYMPHATICS: No enlarged nodes. No history of splenectomy. PSYCHIATRIC: + history of depression or anxiety. ENDOCRINOLOGIC: No reports of sweating, cold or heat intolerance. No polyuria or polydipsia. ALLERGIES: No history of asthma, hives, eczema or rhinitis. Vital Signs Vital Signs Vital Signs: 08/29/23 21:05 08/29/23 22:11 08/29/23 22:00 Temperature 98.2 F Temperature Source Temporal Pulse Rate 66 69 Respiratory Rate 16 17 Blood Pressure 121/67 H 117/73 Blood Pressure Mean 85 87 Pulse Ox 98 100 Oxygen Delivery Method Room Air Room Air Room Air Weight Weight: 203 lb 11.314 oz Body Mass Index (BMI) 36.1 Physical Exam Narrative Physical Examination: General: Awake, alert, oriented x 3 and cooperative, seated upright in the ED bed, talking without issue, dysarthria appears resolved. Skin: Normal color, normal turgor, no icterus, no cyanosis. HEENT: AT/NC, EOMI, PERRLA, mildly dry MM, no carotid bruits or JVD noted. Lungs: CTA bilaterally, moderate effort, mild decrease BL bases, no rales, ronchi or wheezing. Heart: Regular rate and rhythm; no gallop, rub audible. Abdomen: Soft, obese, NTTP, ND, normal BS, no HSM. Extremities: No cyanosis, clubbing, or edema. Neurological: Patient awake, alert, oriented as noted, cognitive function appears at baseline, pupils equally reactive to light and accommodation, cranial nerves grossly normal, moving all 4 extremities, no focal deficits, strength preserved, FTN and HTS appropriate, negative Babinski, sensation intact. Psychiatric: Affect appears fatigued otherwise normal, no acute evidence of depressive or anxiety feelings but does having underlying history. Results Lab / Micro Data 08/29/23 21:49 08/29/23 21:49 Labs: Laboratory Results - last 24 hr 08/29/23 21:49: WBC 7.4, RBC 3.89 L, Hgb 11.9 L, Hct 36.4 L, MCV 93.6, MCH 30.6, MCHC 32.7, RDW Std Deviation 45.8 H, RDW Coeff of Sharmin 13.3, Plt Count 192, MPV 9.7, Immature Gran % (Auto) 0.100, Neut % (Auto) 49.4, Lymph % (Auto) 42.1 H, Zapata % (Auto) 5.7, Eos % (Auto) 1.9, Baso % (Auto) 0.8, Absolute Neuts (auto) 3.6, Absolute Lymphs (auto) 3.10, Nucleated RBC % 0, PT 15.2 H, INR 1.2, APTT 31.1, Sodium 142, Potassium 3.4 L, Chloride 113 H, Carbon Dioxide 23.0, Anion Gap 6, BUN 9, Creatinine 0.94, Estim Creat Clear Calc 86.66, Est GFR (MDRD) Af Amer 87, Est GFR (MDRD) Non-Af 72, BUN/Creatinine Ratio 9.6 L, Glucose 92, Calcium 9.0 08/29/23 22:05: Troponin I High Sens 6 Imaging Radiology Impression Brain CT 08/29/23 22:00 IMPRESSION: No acute intracranial finding. Electronically Signed: Aubrey Montero MD at 22:33 EDT , ADDENDUM: 08/29/23 2248 IMPRESSION: No acute intracranial finding. N.B. : The above Results were Read Back by Aubrey Montero MD to Dr. Vincent MD, and understanding confirmed on 08/29/2023 22:41:11 (ET). Electronically Signed: Aubrey Montero MD at 22:33 EDT , ADDENDUM: 08/29/23 2252 IMPRESSION: No acute intracranial finding. N.B. : The above Results were Read Back by Aubrey Montero MD to Dr. Vincent MD, and understanding confirmed on 08/29/2023 22:45:46 (ET). Electronically Signed: Aubrey Montero MD at 22:33 EDT , Chest X-Ray 08/29/23 22:18 IMPRESSION: No acute pulmonary finding. Electronically Signed: Aubrey Montero MD at 23:03 EDT , Assessment & Plan Assessment/Plan (1) Brain TIA: PLAN: Plan The patient is a 37 y/o F w/ PMHx: GERD, Allergic rhinitis, Chronic anemia, Chronic migraines, Obesity, Chronic neck and back pain with associated radiculopathy, Hx VTE (DVT, PE) with Factor V Leiden mutation/heterozygous on chronic eliquis regimen, Tobacco use, Anxiety and Depression/Suspected Bipolar disorder who presents to the [facility] ED on 08/29/23 with history of generalized fatigue and malaise reportedly not feeling well at work with onset at approximately 1900 slurred speech although from discussions unclear exact duration with no associated headache or any other neurological deficits with improvement of her speech back to her baseline upon ED arrival. #1. Transient slurred speech/Dysarthria concerning for possible TIA/CVA versus Higher suspicion Complex migraine w/ Hx migraines: Will admit to PCU, will obtain MRI Brain with and without contrast given representation atypical neurological symptoms reported to be cautious to assure no underlying demyelinating type issue as well, will obtain CTA head and neck given timeline from last but prior no acute findings, requesting urine drug screen and ethyl alcohol level, 03/15/2023 echocardiogram with negative bubble contrast study with LV systolic function normal, EF 60% with mild TVI at that time thus will not repeat, PT/OT/Speech/Nutrition evaluation per protocol. Will allow permissive HTN, maintain on asa, continue home Eliquis regimen, maintain on high-dose statin with AM FLP, fall precautions. Mag, TSH, FLP, HgbA1c requested. Maintain on fall and aspiration precautions. Will initiate neurology consultation. Will continue patient home Topamax regimen which she takes for her chronic migraines of note. #2. Hypokalemia: Admission K+ 3.4, magnesium level requested, supplementation given, repeat level in AM. #3. Hx VTE (DVT, PE) with Factor V Leiden mutation/heterozygous: Patient on chronic eliquis regimen, will continue. #4. Anxiety and Depression/Suspected Bipolar disorder: We will continue patient home lamotrigine, citalopram, low-dose as needed Haldol use for her severe anxiety. Lamotrigine level requested to be cautious. #5. Chronic neck and back pain with associated radiculopathy: Maintain on fall precautions, PT/OT consulted per protocol given #1, will continue patient chronic Lidoderm patches as well as pain regimen as long as patient's not sedate or confused but low threshold to hold given evaluation for #1 is noted. #6. Tobacco Abuse: Encouraged cessation, inpatient consultation per RT, NR if desired. #7. Obesity: Weight loss and lifestyle changes encouraged. #8. Chronic normocytic anemia: Admission hemoglobin 11.9, MCV 93.6, baseline hemoglobin previously 11.1 03/16/2023, stable, continue to trend. #9. Allergic rhinitis: We will continue patient home montelukast, cetirizine regimen as well as intranasal triamcinolone regimen. #10. GERD: We will continue patient home famotidine regimen. #11. DVT prophylaxis: We will continue patient home Eliquis regimen. Charges/Coding Visit Charges Inpatient E&M: 91582 Init Hosp L2
[2023-08-30 00:18] VITALS: BP 106/64; PULSE 62; RESP 19; TEMP 36.4; O2SAT 98
[2023-08-30 00:48] VITALS: BMI 35.1
[2023-08-30 00:54] VITALS: BP 113/71; PULSE 64; RESP 16; TEMP 36.6; O2SAT 100
--- NOTE | 2023-08-30 00:55 | MRI_ITS ---
HISTORY: CVA. TECHNIQUE: Multiplanar and multisequence MR images of the brain were obtained before and after the intravenous demonstration of 18 mL Clariscan. 326 images. COMPARISON: CT prior day, MRI 03/16/2023. FINDINGS: BRAIN PARENCHYMA: Mild foci of increased T2 FLAIR signal in the bilateral cerebral white matter, similar to slightly decreased from prior. No enhancing lesion in the brain parenchyma. No abnormal focus of restricted diffusion. No acute intracranial hemorrhage identified. CSF SPACES: Cerebral ventricles, cortical sulci, and other extra-axial CSF spaces within normal limits in size for age. No significant midline shift or other mass effect.No extra-axial fluid collection. VASCULAR SYSTEM: Major intracranial flow voids are maintained. PARANASAL SINUSES AND MASTOID AIR CELLS: No significant air fluid levels. ORBITS: Symmetric contents. MRI/Brain W/WO Contrast IMPRESSION: No evidence for acute infarct or enhancing intracranial mass. Very mild chronic white matter changes which may be secondary to chronic small vessel ischemic gliosis, other vascular etiologies, or sequela of nonspecific demyelination or inflammation Electronically Signed: Desi Coates MD at 10:55 EDT ,
--- NOTE | 2023-08-30 00:55 | CT_ITS ---
We are attempting to reach an attending provider to discuss findings. An addendum with communication details will be sent when the communication is complete. INDICATION: CVA EXAMINATION: CTA HEAD AND CTA NECK TECHNIQUE: Noncontrast axial images were obtained of the brain earlier in the evening. Subsequently, routine carotid CT angiogram protocol was performed without and with IV contrast. In addition, images were obtained of the [place]. NASCET criteria using the distal ICAs for comparison were used for evaluation of stenoses. 3D reconstructions were reviewed. A radiation dose optimization technique was used for this scan. IV Contrast dosage and agent: 100 mL of Isovue-370 COMPARISON: Prior study dated: 03/15/2023 FINDINGS: --CTA NECK: AORTIC ARCH AND BRANCHES: Normal anatomy, patent. RIGHT CCA: No occlusion, significant stenosis or dissection. RIGHT ICA: No occlusion, significant stenosis or dissection. LEFT CCA: No occlusion, significant stenosis or dissection. LEFT ICA: No occlusion, significant stenosis or dissection. RIGHT VERTEBRAL ARTERY: No occlusion, significant stenosis or dissection. LEFT VERTEBRAL ARTERY: No occlusion, significant stenosis or dissection. NECK SOFT TISSUES: The lung apices are clear. The thyroid gland is unremarkable. Anterior cervical fusion hardware from C5 to C7. --CTA HEAD: --Anterior circulation: ICAs: No significant stenosis at the intracranial/visualized segments. ACAs: No significant stenosis at the visualized segments. ACOM: Present. MCAs: No significant stenosis at the visualized segments. --Posterior circulation: PCOMs: Not visualized. hogshead opener: No significant stenosis at the visualized segments. BASILAR ARTERY: No significant stenosis. VERTEBRAL ARTERIES: No significant stenosis at the intradural/visualized segments. No evidence of intracranial aneurysm or vascular malformation. CT/CTA Head AND Neck W/ Contrast IMPRESSION: No large vessel occlusion or flow-limiting stenosis. Electronically Signed: Aubrey Montero MD at 2:06 EDT ,
[2023-08-30 01:22] LABS: Magnesium 2.1 mg/dL (1.6-2.6)
[2023-08-30 01:24] LABS: Alcohol, Blood (Medical)-Serum < 3.0 mg/dL
[2023-08-30] MEDS: 0.9% Saline Lock 10 ML Syringe IV (01:55)
[2023-08-30] MEDS: Potassium Chloride Oral Tablet 20 MEQ 40 MEQ PO (01:55)
[2023-08-30] MEDS: 0.9% Normal Saline (1000mL) 1,000 ML 100 ML IV (01:59)
[2023-08-30 03:20] VITALS: BMI 35.1
[2023-08-30 03:53] VITALS: BMI 35.1
[2023-08-30 05:15] VITALS: BP 103/61; PULSE 71; RESP 16; TEMP 36.6; O2SAT 96
[2023-08-30] MEDS: Acetaminophen 325 MG Tablet 650 MG PO (05:23)
[2023-08-30 08:08] LABS: Absolute Lymphocyte Count 2.48 X10^3/uL (0.83-4.51); Absolute Neutrophil Count 2.4 X10^3/uL (2.0-7.7); Basophil# 0.04 X10^3/uL; Basophil% 0.7 % (0-1); Eosinophils% 3.6 % (0-5); Hematocrit 34.8 % (37-47); Hemoglobin 11.5 g/dL (12.0-15.0); Lymphocyte # 2.48 X10^3/ul (0.83-4.51); Lymphocyte % 44.5 % (19-41); Mean Corpuscular Hgb 30.8 pg (27.0-32.0); Mean Corpuscular Volume 93.3 fL (81-99); Mean Platelet Vol. 9.9 fl (6.2-12.0); Monocyte# 0.45 X10^3/uL; Monocyte% 8.1 % (0-10); NRBC Flagged by Analyzer 0 % (0-5); Neutrophil # 2.39 X10^3/uL (2.7-7.7); Neutrophil % 42.9 % (47-70); Platelet Count 180 K/mm3 (150-450); RBC Distribution Width CV 13.4 % (11.6-14.6); Red Blood Count 3.73 M/mm3 (4.2-5.4); White Blood Count 5.6 K/mm3 (4.4-11.0)
[2023-08-30 09:00] VITALS: BP 102/69; PULSE 80; RESP 16; TEMP 36.6; O2SAT 99
[2023-08-30 09:54] LABS: ALB/GLOB Ratio 0.9 RATIO (0.9-2.4); AST(SGOT) 18 U/L (15-37); Alanine Aminotransfer ALT/SGPT 18 U/L (13-56); Albumin, Serum 3.1 g/dL (3.2-5.0); Alkaline Phosphatase 51 U/L (45-117); Anion Gap 7 (5-15); BUN 9 mg/dL (7-18); BUN/Creat Ratio 10.2 RATIO (10-20); Calcium,Total 8.7 mg/dL (8.5-10.1); Chloride 118 mmol/L (98-107); Creatinine, Serum 0.88 mg/dL (0.55-1.02); EST Glomerular Filtration Rate 77 mL/min (>60); Est Glom Filt Rate - Afr Amer 93 mL/min (>60); Estimated Creatinine Clearance 94.09 ml/min; Globulin 3.3 g/dL (2.2-4.2); Glucose 111 mg/dL (74-106); Potassium 3.4 mmol/L (3.5-5.1); Protein, Total 6.4 g/dL (6.4-8.2); Sodium Level 143 mmol/L (136-145); Thyroid Stim Hormone (TSH) 1.17 uIU/mL (0.358-3.74)
[2023-08-30 10:19] LABS: Hemoglobin A1c 5.1 % (3.8-5.6)
[2023-08-30] MEDS: Aspirin 81 MG TAB.CHEW PO (10:37)
[2023-08-30] MEDS: Lidocaine 5% Patch 1 PATCH TOPICAL (10:37)
[2023-08-30] MEDS: lamoTRIgine 100 MG Tablet 200 MG PO (10:38)
[2023-08-30] MEDS: Fluticasone 0.05% 1 SPRAY NASAL.SRY 2 SPRAY NASAL (10:38)
[2023-08-30] MEDS: Loratadine 10 MG Tablet PO (10:39)
[2023-08-30] MEDS: APIXABAN 5 MG TABLET PO (10:39)
[2023-08-30] MEDS: Citalopram 40 MG TABLET PO (10:40)
[2023-08-30] MEDS: Topiramate 200 MG Tablet PO (10:40)
[2023-08-30] MEDS: Famotidine 20 MG Tablet 40 MG PO (10:40)
[2023-08-30] MEDS: Potassium Chloride Oral Tablet 20 MEQ PO (10:40)
--- NOTE | 2023-08-30 11:49 | CASEMGMT ---
SW met with patient to complete a PHQ 9 as she may have had a TIA. Patient originally was okay with doing PHQ 9, but then patient shared the answers are going to be skewed because her grandmother just . Patient declined any need for counseling resources as she already has a counselor that she sees. Amira Benitez BUSHLER CONRADO
--- NOTE | 2023-08-30 13:44 | DCINST_ITS ---
Discharge Instructions Diet Discharge Diet: No restrictions Activity Discharge Activity: Return to Normal Activity Weight Bearing Status: Full weight bearing Follow Up Care Test Results: Test results from this visit will be discussed in further detail at your follow- up appointment, if applicable. Discharge Plan Admission Admit Date/Time: 08/29/23 23:24 Primary Reason for Your Visit: complex migrane Attending Provider: Alonso Walsh Primary Care Provider: Neli Reyes Consulting Providers: Mohit Duffy; Mark Pop; Anna Arenas; Gracie Bains; Cathy Harding; Brenden Gann; Edie Paredes; Aly Soto; Chuck Ramires; Alesha Liu; Ramon Hopson; Amelie Lopez; Pierre Melton; Dayanara Scott; Hunter Bennett; Hollis Núñez; Cristiano Cohn; Tatyana Harden; Elizabeth Herrera; Bridgett Ponce Discharge Orders/Prescriptions Prescriptions: Continued acetaminophen [Tylenol] 325 mg capsule 325 mg PO ONCE PRN (Reason: Pain 1-10 Or Fever) chlorhexidine gluconate [Peridex] 0.12 % mouthwash 15 ml buccal BID Qty: 120 1RF topiramate 25 MG tablet 200 mg PO BID medroxyprogesterone 150 MG/ML syringe 150 mg IM .[id number] citalopram 40 MG tablet 40 mg PO DAILY haloperidol 5 MG tablet 2.5 mg PO TID PRN (Reason: Anxiety) cholecalciferol (vitamin D3) 2,000 UNIT capsule 2,000 unit PO DAILY apixaban 5 MG tablet 5 mg PO BID lidocaine [Lidoderm] 5 % adhesive patch,medicated 1 patch topical DAILY Qty: 6 0RF Rx Instructions: leave on most painful area for up to 12 hrs lamotrigine 200 mg tablet 200 mg PO DAILY Patient Comments: TAKE 1 TABLET BY MOUTH ONCE DAILY IN THE MORNING cetirizine 10 mg tablet 10 mg PO .DAILY AM famotidine 40 mg tablet 40 mg PO Q12H Patient Comments: PT TAKES AT DINNER TIME AND THEN ONE AT BEDTIME triamcinolone acetonide 55 mcg aerosol,spray 2 spray INTRANASAL DAILY Patient Comments: USE 2 SPRAY(S) INTRANASALLY ONCE DAILY montelukast 10 mg tablet 10 mg PO QHS Patient Comments: TAKE 1 TABLET BY MOUTH ONCE DAILY albuterol sulfate 90 mcg/actuation HFA aerosol inhaler 2 puff inhalation Q6H PRN (Reason: CONGESTION/ALLERGIES) Nurtec ODT 75 mg tablet,disintegrating 75 mg PO DAILY PRN Referrals / Follow Up: Neli Reyes, MEASUREMENT DEPARTMENT CHIEF CLERK-C [Primary Care Provider] - Within 2 Weeks Disposition Disposition (needs filled in before D/C Order can be placed): Home, Self Care
--- NOTE | 2023-08-30 14:10 | DS.PCM_ITS ---
Providers Date of Admission: 08/29/23 Date of Discharge: 08/30/23 Primary Care Physician: VINOD. ISABEL Fortune Consultations 08/30/23 01:09 Consult: Tele-Neurology Routine Consulting Provider: [facility] Reason for Consult: Acute Ischemic Stroke/TIA EMERGENT Consult: No MD Notified: Yes Date Notified: 08/30/23 Time Notified: 01:24 Method of Notification: Answering Service Nursing Unit Staff Notify [facility] of Tele-Neurology Consult: Yes Reason For Visit: TIA Diagnosis Discharge Diagnosis (1) Brain TIA: Status: Acute Code(s): G45.9 - Transient cerebral ischemic attack, unspecified Plan 1. Complex migraine #2 chronic depression #3 chronic migraines #4 seizure disorder Medications at Discharge Home Medications medroxyprogesterone 150 mg/mL intramuscular syringe 150 mg IM .[id number] control 01/30/15 topiramate 25 mg tablet 200 mg PO BID 01/30/15 citalopram 40 mg tablet 40 mg PO DAILY mental health 04/04/19 haloperidol 5 mg tablet 2.5 mg PO TID PRN Anxiety 04/04/19 apixaban 5 mg tablet 5 mg PO BID blood thinner 06/03/20 cholecalciferol (vitamin D3) 50 mcg (2,000 unit) capsule 2,000 unit PO DAILY vitamin 06/03/20 acetaminophen 325 mg capsule (Tylenol) 325 mg PO ONCE PRN Pain 1-10 Or Fever 08/26/20 lidocaine 5 % topical patch (Lidoderm) 1 patch topical DAILY pain #6 ea 04/13/21 albuterol sulfate 90 mcg/actuation aerosol inhaler 2 puff inhalation Q6H PRN CONGESTION/ALLERGIES 03/15/23 cetirizine 10 mg tablet 10 mg PO .DAILY AM allergies 03/15/23 famotidine 40 mg tablet 40 mg PO Q12H reflux 03/15/23 lamotrigine 200 mg tablet 200 mg PO DAILY seizures 03/15/23 montelukast 10 mg tablet 10 mg PO QHS allergies 03/15/23 triamcinolone acetonide 55 mcg nasal spray aerosol 2 spray intranasal DAILY 03/15/23 chlorhexidine gluconate 0.12 % mouthwash (Peridex) 15 ml buccal BID #120 mL 07/16/23 rimegepant 75 mg disintegrating tablet (Nurtec ODT) 75 mg PO DAILY PRN MIGRAINE 08/30/23 Hospital Course Operations None Procedures None Summary of Care Provided Minutes Spent on Discharge: 30 Hospital Course: This 37-year-old white female was seen in the emergency room at [facility] with complaints of transient slurred speech and headache, patient has a history of chronic migraine. She also complained of generalized fatigue and malaise. Workup in the emergency room including imaging studies did not show evidence of stroke, patient's NIH stroke score was 0. Patient was placed in observation status on PCU, she underwent an MRI which showed no evidence of stroke. This examiner felt that it was likely the patient had a complex migraine with symptoms of stroke. Patient was seen and examined on 08/30/23: On examination she appeared in good health and spirits, she does not appear to be in any distress. Vital signs as documented. Skin warm and dry and without overt rashes. Neck without JVD, thyroid appears normal, trachea is midline, neck is supple. Lungs clear, normal air movement was noted. Heart exam notable for regular rhythm, normal sounds and absence of murmurs, rubs or gallops. Abdomen unremarkable and without evidence of organomegaly, masses, or abdominal aortic enlargement, bowel sounds are present in all 4 quadrants, no abdominal tenderness was noted. Extremities nonedematous, no cyanosis was noted, no clubbing was noted. Neuro: Cranial nerves II through XII are grossly intact, no focal motor deficits were noted, sensation to light touch and pinprick is intact, motor exam 5/5 throughout. Psych: Patient is alert and oriented x3, she does not appear anxious or depressed, she does not appear agitated. Patient was discharged home in stable condition on 08/30/2023 Weight / BMI Weight Weight: 90 kg Body Mass Index (BMI) 35.1 ABG / Lab / Microbiology Data 08/30/23 07:29 08/30/23 07:29 Laboratory: Laboratory Results - last 24 hr 08/29/23 21:49: WBC 7.4, RBC 3.89 L, Hgb 11.9 L, Hct 36.4 L, MCV 93.6, MCH 30.6, MCHC 32.7, RDW Std Deviation 45.8 H, RDW Coeff of Sharmin 13.3, Plt Count 192, MPV 9.7, Immature Gran % (Auto) 0.100, Neut % (Auto) 49.4, Lymph % (Auto) 42.1 H, [place] % (Auto) 5.7, Eos % (Auto) 1.9, Baso % (Auto) 0.8, Absolute Neuts (auto) 3. 6, Absolute Lymphs (auto) 3.10, Nucleated RBC % 0, PT 15.2 H, INR 1.2, APTT 3 1.1, Sodium 142, Potassium 3.4 L, Chloride 113 H, Carbon Dioxide 23.0, Anion Gap 6, BUN 9, Creatinine 0.94, Estim Creat Clear Calc 86.66, Est GFR (MDRD) Af Amer 87, Est GFR (MDRD) Non-Af 72, BUN/Creatinine Ratio 9.6 L, Glucose 92, Calcium 9.0, Ethyl Alcohol < 3.0 08/29/23 22:05: Magnesium 2.1, Troponin I High Sens 6 08/30/23 07:29: WBC 5.6, RBC 3.73 L, Hgb 11.5 L, Hct 34.8 L, MCV 93.3, MCH 30.8, MCHC 33.0, RDW Std Deviation 46.0 H, RDW Coeff of Sharmin 13.4, Plt Count 180, MPV 9.9, Immature Gran % (Auto) 0.200, Neut % (Auto) 42.9 L, Lymph % (Auto) 44.5 H, [place] % (Auto) 8.1, Eos % (Auto) 3.6, Baso % (Auto) 0.7, Absolute Neuts (auto) 2.4, Absolute Lymphs (auto) 2.48, Nucleated RBC % 0, Sodium 143, Potassium 3.4 L , Chloride 118 H, Carbon Dioxide 18.0 L, Anion Gap 7, BUN 9, Creatinine 0.88, Estim Creat Clear Calc 94.09, Est GFR (MDRD) Af Amer 93, Est GFR (MDRD) Non-Af 77, BUN/Creatinine Ratio 10.2, Glucose 111 H, Hemoglobin A1c 5.1, Calcium 8.7, Total Bilirubin 0.30, AST 18, ALT 18, Alkaline Phosphatase 51, Total Protein 6.4, Albumin 3.1 L, Globulin 3.3, Albumin/Globulin Ratio 0.9, TSH 1.17 Radiography Diagnostic Testing: Radiology Impression Brain CT 08/29/23 22:00 IMPRESSION: No acute intracranial finding. Electronically Signed: Aubrey Montero MD at 22:33 EDT , ADDENDUM: 08/29/23 2248 IMPRESSION: No acute intracranial finding. N.B. : The above Results were Read Back by Aubrey Montero MD to Dr. Vincent MD, and understanding confirmed on 08/29/2023 22:41:11 (ET). Electronically Signed: Aubrey Montero MD at 22:33 EDT , ADDENDUM: 08/29/23 2252 IMPRESSION: No acute intracranial finding. N.B. : The above Results were Read Back by Aubrey Montero MD to Dr. Vincent MD, and understanding confirmed on 08/29/2023 22:45:46 (ET). Electronically Signed: Aubrey Montero MD at 22:33 EDT , Chest X-Ray 08/29/23 22:18 IMPRESSION: No acute pulmonary finding. Electronically Signed: Aubrey Montero MD at 23:03 EDT , Brain MRI 08/30/23 00:55 IMPRESSION: No evidence for acute infarct or enhancing intracranial mass. Very mild chronic white matter changes which may be secondary to chronic small vessel ischemic gliosis, other vascular etiologies, or sequela of nonspecific demyelination or inflammation Electronically Signed: Desi Coates MD at 10:55 EDT , Head/Neck CTA 08/30/23 00:55 IMPRESSION: No large vessel occlusion or flow-limiting stenosis. Electronically Signed: Aubrey Montero MD at 2:06 EDT , D/C Instructions Discharge Diet: No restrictions Weight Bearing Status: Full weight bearing Meaningful Use Info Meaningful Use Diagnoses (Choose all that apply): None applicable Discharge Plan Admission Admit Date/Time: 08/29/23 23:24 Primary Reason for Your Visit: complex migrane Attending Provider: Alonso Walsh Primary Care Provider: Neli Reyes Consulting Providers: Mohit Duffy; Mark Pop; Anna Arenas; Gracie Bains; Cathy Harding; Brenden Gann; Edie Paredes; Aly Soto; Chuck Ramires; Alesha Liu; Ramon Hopson; Amelie Lopez; Pierre Melton; Dayanara Scott; Hunter Bennett; Hollis Núñez; Cristiano Cohn; Tatyana Harden; Elizabeth Herrera; Bridgett Ponce Discharge Orders/Prescriptions Prescriptions: Continued acetaminophen [Tylenol] 325 mg capsule 325 mg PO ONCE PRN (Reason: Pain 1-10 Or Fever) chlorhexidine gluconate [Peridex] 0.12 % mouthwash 15 ml buccal BID Qty: 120 1RF topiramate 25 MG tablet 200 mg PO BID medroxyprogesterone 150 MG/ML syringe 150 mg IM .[id number] citalopram 40 MG tablet 40 mg PO DAILY haloperidol 5 MG tablet 2.5 mg PO TID PRN (Reason: Anxiety) cholecalciferol (vitamin D3) 2,000 UNIT capsule 2,000 unit PO DAILY apixaban 5 MG tablet 5 mg PO BID lidocaine [Lidoderm] 5 % adhesive patch,medicated 1 patch topical DAILY Qty: 6 0RF Rx Instructions: leave on most painful area for up to 12 hrs lamotrigine 200 mg tablet 200 mg PO DAILY Patient Comments: TAKE 1 TABLET BY MOUTH ONCE DAILY IN THE MORNING cetirizine 10 mg tablet 10 mg PO .DAILY AM famotidine 40 mg tablet 40 mg PO Q12H Patient Comments: PT TAKES AT DINNER TIME AND THEN ONE AT BEDTIME triamcinolone acetonide 55 mcg aerosol,spray 2 spray INTRANASAL DAILY Patient Comments: USE 2 SPRAY(S) INTRANASALLY ONCE DAILY montelukast 10 mg tablet 10 mg PO QHS Patient Comments: TAKE 1 TABLET BY MOUTH ONCE DAILY albuterol sulfate 90 mcg/actuation HFA aerosol inhaler 2 puff inhalation Q6H PRN (Reason: CONGESTION/ALLERGIES) Nurtec ODT 75 mg tablet,disintegrating 75 mg PO DAILY PRN Referrals / Follow Up: Neli Reyes, [employer] [Primary Care Provider] - Within 2 Weeks Disposition Disposition (needs filled in before D/C Order can be placed): Home, Self Care Charges/Coding Visit Charges Inpatient E&M: 75786 Disch Hosp
--- NOTE | 2023-08-30 14:32 | CASEMGMT ---
RN CM NOTE: Discharge order is in. Therapy notes reviewed and no additional therapy recommended. RN CM to room. Introduced self and role. Pt denies having any discharge planning needs or concerns. [facility], has just completed eval and verbally stated no additional ST recommended either. Melba BSN RN CM
[2023-08-30 14:34] VITALS: BMI 35.1
--- NOTE | 2023-08-30 14:38 | PHA.DC.MR.R ---
Pharmacy MS Med Reconciliation Pharmacy Service has performed discharge medication reconciliation for this patient. The patient's discharge medication list was reviewed for discrepancies and discrepancies were resolved. Medications at Discharge Home Medications medroxyprogesterone 150 mg/mL intramuscular syringe 150 mg IM .[id number] control 01/30/15 topiramate 25 mg tablet 200 mg PO BID 01/30/15 citalopram 40 mg tablet 40 mg PO DAILY mental health 04/04/19 haloperidol 5 mg tablet 2.5 mg PO TID PRN Anxiety 04/04/19 apixaban 5 mg tablet 5 mg PO BID blood thinner 06/03/20 cholecalciferol (vitamin D3) 50 mcg (2,000 unit) capsule 2,000 unit PO DAILY vitamin 06/03/20 acetaminophen 325 mg capsule (Tylenol) 325 mg PO ONCE PRN Pain 1-10 Or Fever 08/26/20 lidocaine 5 % topical patch (Lidoderm) 1 patch topical DAILY pain #6 ea 04/13/21 albuterol sulfate 90 mcg/actuation aerosol inhaler 2 puff inhalation Q6H PRN CONGESTION/ALLERGIES 03/15/23 cetirizine 10 mg tablet 10 mg PO .DAILY AM allergies 03/15/23 famotidine 40 mg tablet 40 mg PO Q12H reflux 03/15/23 lamotrigine 200 mg tablet 200 mg PO DAILY seizures 03/15/23 montelukast 10 mg tablet 10 mg PO QHS allergies 03/15/23 triamcinolone acetonide 55 mcg nasal spray aerosol 2 spray intranasal DAILY 03/15/23 chlorhexidine gluconate 0.12 % mouthwash (Peridex) 15 ml buccal BID #120 mL 07/16/23 rimegepant 75 mg disintegrating tablet (Nurtec ODT) 75 mg PO DAILY PRN MIGRAINE 08/30/23
[2023-08-30 14:47] VITALS: BP 93/62; PULSE 65; RESP 16; TEMP 36.6; O2SAT 99
--- NOTE | 2023-08-30 16:21 | NEURO.CONS ---
Assessment and Plan: Neuro Assessment/Plan CODY KC is a 37 F with a past medical history of anxity, complicated migraines and TIAs being evaluated by Teleneurology for TIA Diagnosis: complicated migraines Plan: cont home Eliquis TTE Hba1c, lipid panel Follow up with Neurology(Pt has a headache and vascular neurology that has been handeling her care) HPI Consult Data Date of Consult: 08/30/23 HPI Narrative HPI Narrative: CODY KC, is a 37 F with hx of TIA, Migraines, Factor V leidine on Eliquis who presents with an episode of slurred speech. pt was at work when she felt that she is having what felt like a panic attack with a headache, her symptoms evolved to slurred speech and starring spell, EMS was called and she was taken to the ED. CTA head and neck showed no acute changes MRI showed no acute stroke. her symptoms resolved and she is back to her baseline [facility] Medical History Anxiety and depression Chronic migraine Chronic neck and back pain Factor 5 Leiden mutation, heterozygous History of nephrolithiasis History of venous thromboembolism Obesity Tobacco use Home Medications medroxyprogesterone 150 mg/mL intramuscular syringe 150 mg IM .[id number] control 01/30/15 [History Last Taken Unknown] topiramate 25 mg tablet 200 mg PO BID 01/30/15 [History Last Taken Unknown] citalopram 40 mg tablet 40 mg PO DAILY mental health 04/04/19 [History Last Taken Unknown] haloperidol 5 mg tablet 2.5 mg PO TID PRN Anxiety 04/04/19 [History Last Taken Unknown] apixaban 5 mg tablet 5 mg PO BID blood thinner 06/03/20 [History Last Taken Unknown] cholecalciferol (vitamin D3) 50 mcg (2,000 unit) capsule 2,000 unit PO DAILY vitamin 06/03/20 [History Last Taken Unknown] acetaminophen 325 mg capsule (Tylenol) 325 mg PO ONCE PRN Pain 1-10 Or Fever 08/26/20 [History Last Taken Unknown] lidocaine 5 % topical patch (Lidoderm) 1 patch topical DAILY pain #6 ea 04/13/21 [Rx Last Taken Unknown] albuterol sulfate 90 mcg/actuation aerosol inhaler 2 puff inhalation Q6H PRN CONGESTION/ALLERGIES 03/15/23 [History Last Taken Unknown] cetirizine 10 mg tablet 10 mg PO .DAILY AM allergies 03/15/23 [History Last Taken Unknown] famotidine 40 mg tablet 40 mg PO Q12H reflux 03/15/23 [History Last Taken Unknown] lamotrigine 200 mg tablet 200 mg PO DAILY seizures 03/15/23 [History Last Taken Unknown] montelukast 10 mg tablet 10 mg PO QHS allergies 03/15/23 [History Last Taken Unknown] triamcinolone acetonide 55 mcg nasal spray aerosol 2 spray intranasal DAILY 03/15/23 [History Last Taken Unknown] chlorhexidine gluconate 0.12 % mouthwash (Peridex) 15 ml buccal BID #120 mL 07/16/23 [Rx Last Taken Unknown] rimegepant 75 mg disintegrating tablet (Nurtec ODT) 75 mg PO DAILY PRN MIGRAINE 08/30/23 [History Last Taken Unknown] Allergy/AdvReac Type Severity Reaction Status Date / Time acetaminophen [From Carpenter] Allergy Itching Verified 08/29/23 21:04 hydrocodone [From Carpenter] Allergy Itching Verified 08/29/23 21:04 oxycodone [From Percocet] AdvReac Intermediate Itching Verified 08/30/23 01:00 cephalexin monohydrate AdvReac WEAKNESS, Verified 08/29/23 21:04 [From Keflex] MUSCLE ACHES Family History Mother Heart disease CVA (cerebral vascular accident) Diabetes Father No problems noted. Surgical History History of carpal tunnel release History of toe surgery S/P cervical spinal fusion Social History (Updated 08/30/23 @ 00:[address] Bridgett Ponce MD) household members: other details: Lives in her home with her 3 children, youngest 9. Smoking Status: Current every day smoker tobacco type: cigarettes, e-cigarettes and smokeless tobacco alcohol intake: never substance use type: does not use Vital Signs Vital Signs Vital Signs: 08/29/23 21:05 08/29/23 22:11 08/29/23 22:00 Temperature 98.2 F Temperature Source Temporal Pulse Rate 66 69 Pulse Strength Respiratory Rate 16 17 Respiratory Effort Respiratory Depth Respiratory Pattern Blood Pressure 121/67 H 117/73 Blood Pressure Mean 85 87 Blood Pressure Source Blood Pressure Position Blood Pressure Location Pulse Ox 98 100 Oxygen Delivery Method Room Air Room Air Room Air 08/29/23 23:00 08/30/23 00:18 08/30/23 00:54 Temperature 97.6 F L 97.9 F Temperature Source Oral Pulse Rate 55 L 62 64 Pulse Strength Respiratory Rate 20 H 19 H 16 Respiratory Effort Respiratory Depth Respiratory Pattern Blood Pressure 102/63 106/64 113/71 Blood Pressure Mean 76 78 85 Blood Pressure Source Monitor Blood Pressure Position Sitting Blood Pressure Location Right Arm Pulse Ox 100 98 100 Oxygen Delivery Method Room Air Room Air 08/30/23 01:05 08/30/23 05:15 08/30/23 09:00 Temperature 97.9 F 97.9 F Temperature Source Oral Oral Pulse Rate 71 80 Pulse Strength Respiratory Rate 16 16 Respiratory Effort Normal Non-Labored Respiratory Depth Normal Respiratory Pattern Normal Blood Pressure 103/61 102/69 Blood Pressure Mean 75 80 Blood Pressure Source Monitor Monitor Blood Pressure Position Supine Sitting Blood Pressure Location Left Arm Right Arm Pulse Ox 96 99 Oxygen Delivery Method Room Air Room Air Room Air 08/30/23 10:00 08/30/23 08:00 08/30/23 14:47 Temperature 97.8 F Temperature Source Oral Pulse Rate 65 Pulse Strength Normal (2+) Respiratory Rate 16 Respiratory Effort Normal Non-Labored Respiratory Depth Normal Respiratory Pattern Normal Blood Pressure 93/62 Blood Pressure Mean 72 Blood Pressure Source Monitor Blood Pressure Position Semi-Fowlers Blood Pressure Location Left Arm Pulse Ox 99 Oxygen Delivery Method Room Air Room Air 08/30/23 14:00 Temperature Temperature Source Pulse Rate Pulse Strength Respiratory Rate Respiratory Effort Normal Non-Labored Respiratory Depth Normal Respiratory Pattern Normal Blood Pressure Blood Pressure Mean Blood Pressure Source Blood Pressure Position Blood Pressure Location Pulse Ox Oxygen Delivery Method Room Air Weight Weight: 90 kg Body Mass Index (BMI) 35.1 EEG Results Procedure Details EEG Procedure Details: CODY KC is a 37 year old F with a past medical history of , who presents for evaluation of Electroencephalogram on DATE at TIME NIHSS NIHSS Nursing Documentation NIHSS Nursing Documentation: NIHSS: Ischemic Stroke/TIA Start: 08/30/23 01:09 Text: For PCU Patients: NIH and Neuro Check every 4 Status: Complete hours and PRN Freq: [id number] Protocol: Activity Type Activity Date Activity User E-sign Co-sign Detail Recorded Client Recorded Date Recorded By Document 08/30/23 09:00 Desktop 08/30/23 09:17 08/30/23 09:00 NIH Stroke Scale [NIHSS] A score of 0 is normal or asymptomatic . Total possible score is 42. Inpatient: RN or Physician to activate a stroke alert for onset of new stroke symptoms or with NIHSS increase >/= 3 points. Following change in neurological status, NIHSS will be performed per physician order or more frequently PRN. -1a. Level of Consciousness Alert; keenly responsive -1b. LOC Questions Answers BOTH questions correctly. -1c. LOC Commands Performs both tasks correctly . -2. Best Gaze Normal -3. Visual No visual loss -4. Facial Palsy Normal symmetrical movements -5a. Left Arm No drift; arm holds 90 (or 45 ) degrees for full 10 seconds -5b. Right Arm No drift; arm holds 90 (or 45 ) degrees for full 10 seconds -6a. Left Leg No drift; leg holds 30-degree position for full 5 seconds -6b. Right Leg No drift; leg holds 30-degree position for full 5 seconds -7. Limb Ataxia Absent -8. Sensory Normal; no sensory loss -9. Best Language No aphasia; normal -10. Dysarthria Normal -11. Extinction and Inattention No abnormality -Total 0 Query Text:A score of 0 is normal or asymptomatic. Total possible score is 42 . ED: Notify Physician for NIHSS increase by > / = 3 points. Inpatient: RN or Physician to activate a stroke alert for NIHSS increase of > / = 3 points. Coma Scale [Assess] -Eye Opening Spontaneous -Motor Obeys Commands -Verbal Oriented [Total] -Coma Scale Total 15 Lab / Micro Data 08/30/23 07:29 08/30/23 07:29 Labs: Laboratory Results - last 24 hr 08/29/23 21:49: WBC 7.4, RBC 3.89 L, Hgb 11.9 L, Hct 36.4 L, MCV 93.6, MCH 30.6, MCHC 32.7, RDW Std Deviation 45.8 H, RDW Coeff of Sharmin 13.3, Plt Count 192, MPV 9.7, Immature Gran % (Auto) 0.100, Neut % (Auto) 49.4, Lymph % (Auto) 42.1 H, [place] % (Auto) 5.7, Eos % (Auto) 1.9, Baso % (Auto) 0.8, Absolute Neuts (auto) 3.6, Absolute Lymphs (auto) 3.10, Nucleated RBC % 0, PT 15.2 H, INR 1.2, APTT 31.1, Sodium 142, Potassium 3.4 L, Chloride 113 H, Carbon Dioxide 23.0, Anion Gap 6, BUN 9, Creatinine 0.94, Estim Creat Clear Calc 86.66, Est GFR (MDRD) Af Amer 87, Est GFR (MDRD) Non-Af 72, BUN/Creatinine Ratio 9.6 L, Glucose 92, Calcium 9.0, Ethyl Alcohol < 3.0 08/29/23 22:05: Magnesium 2.1, Troponin I High Sens 6 08/30/23 07:29: WBC 5.6, RBC 3.73 L, Hgb 11.5 L, Hct 34.8 L, MCV 93.3, MCH 30.8, MCHC 33.0, RDW Std Deviation 46.0 H, RDW Coeff of Sharmin 13.4, Plt Count 180, MPV 9.9, Immature Gran % (Auto) 0.200, Neut % (Auto) 42.9 L, Lymph % (Auto) 44.5 H, [place] % (Auto) 8.1, Eos % (Auto) 3.6, Baso % (Auto) 0.7, Absolute Neuts (auto) 2.4, Absolute Lymphs (auto) 2.48, Nucleated RBC % 0, Sodium 143, Potassium 3.4 L, Chloride 118 H, Carbon Dioxide 18.0 L, Anion Gap 7, BUN 9, Creatinine 0.88, Estim Creat Clear Calc 94.09, Est GFR (MDRD) Af Amer 93, Est GFR (MDRD) Non-Af 77, BUN/Creatinine Ratio 10.2, Glucose 111 H, Hemoglobin A1c 5.1, Calcium 8.7, Total Bilirubin 0.30, AST 18, ALT 18, Alkaline Phosphatase 51, Total Protein 6.4, Albumin 3.1 L, Globulin 3.3, Albumin/Globulin Ratio 0.9, TSH 1.17 Imaging Radiology Impression Brain CT 08/29/23 22:00 IMPRESSION: No acute intracranial finding. Electronically Signed: Aubrey Montero MD at 22:33 EDT , ADDENDUM: 08/29/23 2248 IMPRESSION: No acute intracranial finding. N.B. : The above Results were Read Back by Aubrey Montero MD to Dr. Vincent MD, and understanding confirmed on 08/29/2023 22:41:11 (ET). Electronically Signed: Aubrey Montero MD at 22:33 EDT , ADDENDUM: 08/29/23 2252 IMPRESSION: No acute intracranial finding. N.B. : The above Results were Read Back by Aubrey Montero MD to Dr. Vincent MD, and understanding confirmed on 08/29/2023 22:45:46 (ET). Electronically Signed: Aubrey Montero MD at 22:33 EDT , Chest X-Ray 08/29/23 22:18 IMPRESSION: No acute pulmonary finding. Electronically Signed: Aubrey Montero MD at 23:03 EDT , Brain MRI 08/30/23 00:55 IMPRESSION: No evidence for acute infarct or enhancing intracranial mass. Very mild chronic white matter changes which may be secondary to chronic small vessel ischemic gliosis, other vascular etiologies, or sequela of nonspecific demyelination or inflammation Electronically Signed: Desi Coates MD at 10:55 EDT , Head/Neck CTA 08/30/23 00:55 IMPRESSION: No large vessel occlusion or flow-limiting stenosis. Electronically Signed: Aubrey Montero MD at 2:06 EDT ,
[2023-09-01 18:07] LABS: Lamotrigine (Lamictal) Level 1.2 ug/mL (2.0-20.0)
== END 2023-08-30 14:09 | disposition home or self-care (01) ==
LOC: ED 22:48 → PCU 23:36
PROVIDERS: Admitting Provider Family Medicine; Emergency Provider Emergency Medicine; PCP Nurse Practitioner Family; Visit Provider Internal Medicine
DX: G43.109 Migraine with aura, not intractable, without status migrainosus (principal); D68.51 Activated protein C resistance; F17.210 Nicotine dependence, cigarettes, uncomplicated; K21.9 Gastro-esophageal reflux disease without esophagitis; Z79.01 Long term (current) use of anticoagulants; R47.81 Slurred speech; R47.1 Dysarthria and anarthria; F41.9 Anxiety disorder, unspecified; Z79.899 Other long term (current) drug therapy; F17.220 Nicotine dependence, chewing tobacco, uncomplicated; F17.290 Nicotine dependence, other tobacco product, uncomplicated; E66.9 Obesity, unspecified; Z68.35 Body mass index [BMI] 35.0-35.9, adult
CPT/HCPCS: 36415; 70450; 70496; 70498; 70553; 71045; 80048; 80053; 80320; 82542; 83036; 83735; 84443; 84484; 85025; 85610; 85730; 92523; 93005; 97161; 97166; 97802; 99221; 99285; A9575; J7030; Q9967; A4216; G0378; G0480

== ENCOUNTER 2024-01-08 20:04 | Emergency (ER) | payer MEDICAID, SELFPAY ==
[2024-01-08 20:05] VITALS: BP 114/76; PULSE 101; RESP 18; TEMP 36.3; O2SAT 98; BMI 34.9
[2024-01-08] MEDS: Ketorolac 15 MG/ML Vial IV (20:59)
--- NOTE | 2024-01-08 21:07 | US_ITS ---
We are attempting to reach an attending provider to discuss findings. An addendum with communication details will be sent when the communication is complete. INDICATION: RT POSTERIOR KNEE PAIN EXAMINATION: Ultrasound US Venous Duplex LE Unilat / Limited RIGHT TECHNIQUE: Fabian scale, pulse wave, and color flow Doppler imaging was performed of the lower extremity venous system. The right greater saphenous, common femoral, femoral, and popliteal veins were interrogated. COMPARISON: FINDINGS: No intraluminal thrombus in the popliteal vein. No vascular flow demonstrated through the region. The other visualized veins, including the common femoral through superficial femoral veins patent. No other intraluminal thrombus identified. US/Venous Duplex Imag/Limited/Uni IMPRESSION: Positive for DVT popliteal vein. Electronically Signed: Jane Peña MD at 22:31 EDT ,
[2024-01-08] MEDS: Enoxaparin 100 MG/ML Syringe 90 MG SC (21:45)
[2024-01-08 22:05] VITALS: BP 121/78; PULSE 73; RESP 14; TEMP 36.6; O2SAT 99
--- NOTE | 2024-01-08 23:30 | ED.VIS.LOWEX ---
HPI History of Present Illness Chief Complaint: Lower Extremity Injury Narrative Narrative: 38-year-old female presenting with pain on the right leg behind her knee. She states sometimes it radiates up and sometimes it radiates down. She denies any trauma. 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 Denies any chest pain or shortness of breath. [facility] Medical History Lumbar pain with radiation down right leg Dental caries Brain TIA Dysarthria Chronic migraine Anxiety and depression History of venous thromboembolism Obesity Tobacco use History of nephrolithiasis Chronic neck and back pain Factor 5 Leiden mutation, heterozygous Home Medications ?Medication ?Instructions ?Recorded ?Last Taken ?Type medroxyprogesterone 150 mg/mL 150 mg IM .[id number] control 01/30/15 Unknown History intramuscular syringe topiramate 25 mg tablet 200 mg PO BID 01/30/15 Unknown History citalopram 40 mg tablet 40 mg PO DAILY mental health 04/04/19 Unknown History haloperidol 5 mg tablet 2.5 mg PO TID PRN Anxiety 04/04/19 Unknown History apixaban 5 mg tablet 5 mg PO BID blood thinner 06/03/20 Unknown History cholecalciferol (vitamin D3) 50 2,000 unit PO DAILY vitamin 06/03/20 Unknown History mcg (2,000 unit) capsule acetaminophen 325 mg capsule 325 mg PO ONCE PRN Pain 1-10 Or 08/26/20 Unknown History (Tylenol) Fever lidocaine 5 % topical patch 1 patch topical DAILY pain #6 ea 04/13/21 Unknown Rx (Lidoderm) albuterol sulfate 90 mcg/actuation 2 puff inhalation Q6H PRN 03/15/23 Unknown History aerosol inhaler CONGESTION/ALLERGIES cetirizine 10 mg tablet 10 mg PO .DAILY AM allergies 03/15/23 Unknown History famotidine 40 mg tablet 40 mg PO Q12H reflux 03/15/23 Unknown History lamotrigine 200 mg tablet 200 mg PO DAILY seizures 03/15/23 Unknown History montelukast 10 mg tablet 10 mg PO QHS allergies 03/15/23 Unknown History triamcinolone acetonide 55 mcg 2 spray intranasal DAILY 03/15/23 Unknown History nasal spray aerosol chlorhexidine gluconate 0.12 % 15 ml buccal BID #120 mL 07/16/23 Unknown Rx mouthwash (Peridex) rimegepant 75 mg disintegrating 75 mg PO DAILY PRN MIGRAINE 08/30/23 Unknown History tablet (Nurtec ODT) cyclobenzaprine 10 mg tablet 10 mg PO TID PRN muscle spasm #20 10/17/23 Unknown Rx tabs prednisone 10 mg tablet 10 mg PO DAILY #30 tabs 10/17/23 Unknown Rx benzonatate 200 mg capsule 200 mg PO TID PRN cough #20 caps 10/31/23 Unknown Rx erenumab-aooe 70 mg/mL mg subcut 10/31/23 Unknown History subcutaneous auto-injector (Aimovig Autoinjector) methylprednisolone 4 mg tablets in See Rx Instructions PO PER PKG DIR 10/31/23 Unknown Rx a dose pack (Medrol (Julio Cesar)) #21 tabs enoxaparin 100 mg/mL subcutaneous 90 mg (0.9 mL) subcut DAILY #10 mL 01/08/24 Unknown Rx syringe (Lovenox) Allergy/AdvReac Type Severity Reaction Status Date / Time acetaminophen (From [place]) Allergy Itching Verified 01/08/24 20:05 hydrocodone (From [place]) Allergy Itching Verified 01/08/24 20:05 oxycodone (From Percocet) AdvReac Intermediate Itching Verified 01/08/24 20:05 cephalexin monohydrate (From AdvReac WEAKNESS, Verified 01/08/24 20:05 Keflex) MUSCLE ACHES Family History Mother Heart disease CVA (cerebral vascular accident) Diabetes Father No problems noted. Surgical History S/P cervical spinal fusion History of toe surgery History of carpal tunnel release Social History household members: other details: Lives in her home with her 3 children, youngest 9. Smoking Status: Current every day smoker tobacco type: cigarettes, e-cigarettes and smokeless tobacco alcohol intake: never substance use type: does not use ROS ROS ED Constitutional Constitutional ED: Denies chills, fever(s) or sweats Eyes Eyes: Denies blurry vision or change in vision ENT ENT ED: Denies ear pain or sore throat Cardiovascular Cardiovascular: Denies chest pain, palpitations or racing heartbeat Respiratory/Chest Respiratory/Chest: Denies cough, dyspnea or sputum Gastrointestinal Gastrointestinal: Denies abdominal pain, constipation, diarrhea, nausea or vomiting Genitourinary Genitourinary ED: Denies dysuria, hematuria or urinary frequency Musculoskeletal Musculoskeletal: Reports other Details: Pain behind right knee ; Denies arthralgias, myalgias or neck pain Integumentary Denies abscess, Abrasions or rash Neurologic Neurologic: Denies headache(s), paresthesias or weakness Psychiatric Psychiatric: Denies anxiety, depression, suicidal ideation or suicidal thoughts Endocrine Endocrinology: Denies polydipsia or polyuria EXAM Physical Exam Const Vital Signs: 01/08/24 20:05 01/08/24 22:05 Temperature 97.4 F L 97.8 F Temperature Source Temporal Pulse Rate 101 H 73 Respiratory Rate 18 14 Blood Pressure 114/76 121/78 H Blood Pressure Mean 88 92 Pulse Ox 98 99 Oxygen Delivery Method Room Air MDM MDM MDM Narrative Medical decision making narrative: Patient presenting with pain behind the right knee. She is very tender here. She is on Eliquis for history of DVT/PE and she does have factor V Leiden. I obtained a venous duplex to which was positive for DVT in the popliteal vein. Discussed this with Dr. Martinez who adding her on low 1 mg/kg twice daily and he will follow-up with her in the office to discuss the possibility of a IVC filter. Patient was amenable to this. She was given 1 mg/kg of Lovenox. She was counseled on how to give herself the medicine. She was discharged with a prescription for 2 weeks. Impression: 1. DVT Radiography Diagnostic Testing: Clinical Impression(s) from Imaging Studies Venous Duplex 01/08/24 21:07 IMPRESSION: Positive for DVT popliteal vein. Electronically Signed: Jane Peña MD at 22:31 EDT , ADDENDUM: 01/08/24 [id number] IMPRESSION: Positive for DVT popliteal vein. N.B. : Albert Hager DO, confirmed on 01/08/2024 22:42:25 (ET) that the referring physician received the results and does not require a verbal communication. Electronically Signed: Jane Peña MD at 22:31 EDT , Discharge Plan Triage Chief Complaint: Lower Extremity Injury ED Provider: Albert Hager Dx/Rx/DC Orders Instructions: ED Deep Vein Thrombosis (DVT) Prescriptions: New enoxaparin [Lovenox] 100 mg/mL syringe 90 mg subcut DAILY Qty: 10 0RF No Action acetaminophen [Tylenol] 325 mg capsule 325 mg PO ONCE PRN (Reason: Pain 1-10 Or Fever) chlorhexidine gluconate [Peridex] 0.12 % mouthwash 15 ml buccal BID Qty: 120 1RF prednisone 10 mg tablet 10 mg PO DAILY Qty: 30 0RF Rx Instructions: 4 tablets daily x3 days, then 3 tablets daily x3 days, then 2 tablets daily x3 days, then 1 tablet daily x3 days cyclobenzaprine 10 mg tablet 10 mg PO TID PRN (Reason: muscle spasm) Qty: 20 0RF Aimovig Autoinjector 70 mg/mL auto-injector subcut methylprednisolone [Medrol (Julio Cesar)] 4 mg tablets,dose pack See Rx Instructions PO PER PKG DIR Qty: 21 0RF Rx Instructions: PO PER PKG DIR benzonatate 200 mg capsule 200 mg PO TID PRN (Reason: cough) Qty: 20 0RF topiramate 25 MG tablet 200 mg PO BID medroxyprogesterone 150 MG/ML syringe 150 mg IM .[id number] citalopram 40 MG tablet 40 mg PO DAILY haloperidol 5 MG tablet 2.5 mg PO TID PRN (Reason: Anxiety) cholecalciferol (vitamin D3) 2,000 UNIT capsule 2,000 unit PO DAILY apixaban 5 MG tablet 5 mg PO BID lidocaine [Lidoderm] 5 % adhesive patch,medicated 1 patch topical DAILY Qty: 6 0RF Rx Instructions: leave on most painful area for up to 12 hrs lamotrigine 200 mg tablet 200 mg PO DAILY Patient Comments: TAKE 1 TABLET BY MOUTH ONCE DAILY IN THE MORNING cetirizine 10 mg tablet 10 mg PO .DAILY AM famotidine 40 mg tablet 40 mg PO Q12H Patient Comments: PT TAKES AT DINNER TIME AND THEN ONE AT BEDTIME triamcinolone acetonide 55 mcg aerosol,spray 2 spray INTRANASAL DAILY Patient Comments: USE 2 SPRAY(S) INTRANASALLY ONCE DAILY montelukast 10 mg tablet 10 mg PO QHS Patient Comments: TAKE 1 TABLET BY MOUTH ONCE DAILY albuterol sulfate 90 mcg/actuation HFA aerosol inhaler 2 puff inhalation Q6H PRN (Reason: CONGESTION/ALLERGIES) Nurtec ODT 75 mg tablet,disintegrating 75 mg PO DAILY PRN Stand Alone Forms: ED Work / School Excuse Primary Care Provider: Neli Reyes Referrals: Ck Martinez MD [Med Staff - Active Staff] - As soon as possible Neli Reyes, [employer]PER[employer] [Primary Care Provider] - Print Language: Albanian Disposition Disposition: Home, Self Care Discharge Date/Time: 01/08/24 22:06
== END 2024-01-08 22:06 | disposition home or self-care (01) ==
PROVIDERS: Emergency Provider Student in an Organized Health Care Education/Training Program; PCP Nurse Practitioner Family; Visit Provider Student in an Organized Health Care Education/Training Program
DX: I82.431 Acute embolism and thrombosis of right popliteal vein (principal); G43.709 Chronic migraine without aura, not intractable, without status migrainosus; D68.51 Activated protein C resistance; F17.210 Nicotine dependence, cigarettes, uncomplicated; F17.220 Nicotine dependence, chewing tobacco, uncomplicated; F17.290 Nicotine dependence, other tobacco product, uncomplicated; Z79.01 Long term (current) use of anticoagulants; Z79.899 Other long term (current) drug therapy; Z86.718 Personal history of other venous thrombosis and embolism; Z86.711 Personal history of pulmonary embolism
CPT/HCPCS: 93971; 96372; 96374; 99283

== ENCOUNTER → 2024-01-10 | Outpatient (CLI) | payer MEDICAID, SELFPAY ==
--- NOTE | 2024-01-10 15:02 | VDLE_ITS ---
Reason For Study: RLE DVT (KNOWN, serial imaging) RIGHT LEFT GSV is normal. CFV is compressible, spontaneous, phasic, CFV is compressible, spontaneous, phasic, competent, and demonstrates normal competent and demonstrates normal augmentation. augmentation. FV is compressible, spontaneous, phasic, competent and demonstrates normal augmentation. T/P Trunk is compressible. PTV is compressible. RT PerV is compressible. POP V is NONCOMPRESSIBLE w/minimal flow noted. PT is on Lovenox injection. Sent PT to [facility] for Rx renewel. Procedure This is a venous duplex using B-mode, color flow and spectral Doppler. Exam performed in department. A preliminary report was called and/or faxed to [facility] @ [phone] @ 15:15.
== END | disposition home or self-care (01) ==
LOC: CVS 15:01
PROVIDERS: PCP Nurse Practitioner Family; Referring Provider Physician Assistant; Visit Provider Physician Assistant
DX: I82.531 Chronic embolism and thrombosis of right popliteal vein (principal); D68.51 Activated protein C resistance
CPT/HCPCS: 93971

== ENCOUNTER → 2024-01-31 | Outpatient (CLI) | payer MEDICAID, SELFPAY ==
--- NOTE | 2024-01-31 14:27 | NEURO ---
NCS and/or EMG Patient Report Ordering Doctor: Yoni Ortiz DATE OF SERVICE: 01/31/24 Evangelina returns with complaints of numbness and tingling in the hands, worse on the right side. She has a history of cervical fusion. She reports a history of carpal tunnel release. Electrodiagnostic findings: Right median motor nerve demonstrates prolonged distal latency with normal amplitude and conduction velocity. Left median motor nerve demonstrates normal distal latency, amplitude and conduction velocity. Ulnar motor responses within normal limits bilaterally. Normal median and ulnar F?waves. Needle EMG testing was performed the upper limbs. All muscles tested showed no evidence of denervation with normal motor unit action potentials. Electrodiagnostic impression: This is an abnormal study in the upper limbs 1. Electrodiagnostic findings suggestive of right-sided median mononeuropathy. This is consistent with a mild, recurrent carpal tunnel syndrome. 2. No electrodiagnostic evidence is noted for cervical radiculopathy. Multi Select Codes Neurology Neurology Interp Codes: 87325-22 Musc test done w/n test comp (interp) (2) and 73714-92 Nrv cndj test 11-12 studies (interp)
== END | disposition home or self-care (01) ==
LOC: PSN 10:40
PROVIDERS: PCP Nurse Practitioner Family; Referring Provider Student in an Organized Health Care Education/Training Program; Visit Provider Student in an Organized Health Care Education/Training Program
DX: G56.01 Carpal tunnel syndrome, right upper limb (principal); R20.2 Paresthesia of skin
CPT/HCPCS: 95886; 95912

== ENCOUNTER → 2024-02-21 | Outpatient (CLI) | payer MEDICAID, SELFPAY ==
[2024-02-21 12:34] LABS: Erythrocyte Sedimentation Rate 10 mm/hr (0-30)
[2024-02-21 13:08] LABS: CRP < 2.90 mg/L (0.0-3.0); Rheumatoid Factor < 10.0 IU/mL (<15); Uric Acid 2.7 mg/dL (2.6-6.0)
[2024-02-22 09:29] LABS: Absolute Lymphocyte Count 3.34 X10^3/uL (0.83-4.51); Absolute Neutrophil Count 3.2 X10^3/uL (2.0-7.7); Basophil# 0.06 X10^3/uL; Basophil% 0.8 % (0-1); Eosinophil# 0.19 X10^3/uL; Eosinophils% 2.6 % (0-5); Hematocrit 38.6 % (37-47); Hemoglobin 12.7 g/dL (12.0-15.0); Lymphocyte # 3.34 X10^3/ul (0.83-4.51); Lymphocyte % 45.9 % (19-41); Mean Corp Hgb Conc 32.9 g/dL (32-36); Mean Corpuscular Hgb 31.8 pg (27.0-32.0); Mean Corpuscular Volume 96.7 fL (81-99); Mean Platelet Vol. 11.8 fl (6.2-12.0); Monocyte# 0.51 X10^3/uL; NRBC Flagged by Analyzer 0 % (0-5); Neutrophil # 3.16 X10^3/uL (2.7-7.7); Neutrophil % 43.6 % (47-70); Platelet Count 206 K/mm3 (150-450); RBC Distribution Width CV 13.2 % (11.6-14.6); RBC Distribution Width SD 47.3 fl (35.1-43.9); Red Blood Count 3.99 M/mm3 (4.2-5.4); White Blood Count 7.3 K/mm3 (4.4-11.0)
[2024-02-22 14:10] LABS: ANTINUCLEAR ANTIBODIES DIRECT Positive (Negative)
== END | disposition home or self-care (01) ==
PROVIDERS: PCP Nurse Practitioner Family; Referring Provider Student in an Organized Health Care Education/Training Program; Visit Provider Student in an Organized Health Care Education/Training Program
DX: G56.03 Carpal tunnel syndrome, bilateral upper limbs (principal)
CPT/HCPCS: 36415; 84550; 85025; 85652; 86038; 86140; 86431

== ENCOUNTER → 2024-03-20 | Outpatient (CLI) | payer MEDICAID, SELFPAY ==
--- NOTE | 2024-03-20 08:55 | VDLE_ITS ---
Reason For Study: Right leg swelling RIGHT LEFT GSV is normal. CFV is compressible, spontaneous, phasic, CFV is compressible, spontaneous, phasic, competent, and demonstrates normal competent and demonstrates normal augmentation. augmentation. FV is compressible, spontaneous, phasic, competent and demonstrates normal augmentation. PopV is partially noncompressible with bright intraluminal echoes noted. Normal venous flow. T/P Trunk is compressible. PTV is compressible. RT PerV is compressible. Procedure This is a venous duplex using B-mode, color flow and spectral Doppler. Exam performed in department. Compared to 01/10/2024. [facility]/Venous Duplex US, Unilateral Interpretation Summary Chronic deep vein thrombosis is noted in the right popliteal vein. Ordering Physician: Gracie Parmar Referring Physician: Neli Reyes Performed By: Sailaja Lam RVT
== END | disposition home or self-care (01) ==
LOC: CVS 08:54
PROVIDERS: PCP Nurse Practitioner Family; Referring Provider Physician Assistant; Visit Provider Physician Assistant
DX: I82.409 Acute embolism and thrombosis of unspecified deep veins of unspecified lower extremity (principal); D68.51 Activated protein C resistance
CPT/HCPCS: 93971

== ENCOUNTER 2024-08-17 15:55 | Emergency (ER) | payer OTHER, MEDICAID, SELFPAY ==
[2024-08-17 15:56] VITALS: BP 130/80; PULSE 95; RESP 14; TEMP 35.6; O2SAT 98; BMI 35.1
--- NOTE | 2024-08-17 16:03 | ED.RN ---
NEW BOLD IS NOT LISTED IN OUR DRUG TESTING DATA BASE. ATTEMPTED TO LEGAL NURSE CONSULTANT, NO ANSWER. CALLED [facility]PH[facility] THAT DOES OUR DRUG TESTING, SHE IS GOING TO INVESTIGATE.
--- NOTE | 2024-08-17 16:17 | EX.ED.DYSGE1 ---
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 There was a lip in the floor and it would not pass over it so she leaned over and tried to lift it up and felt immediate pain in her low back. It is focused on the right side. She states it flared up her sciatica and she is getting occasional pains down the back of the thigh. She has no weakness or numbness or tingling. She has chronic back issues and tried her Voltaren gel and then a Lidoderm patch without much help. She states ice is the only thing that helps. She did not try any [id number] medications. She cannot take NSAIDs because she is on Eliquis for history of factor V Leiden and blood clots. She has no history of back surgery. She has no saddle anesthesia or bladder bowel incontinence. [facility] <ALONZO Warren - Last Filed: 08/17/24 16:42> [facility] Medical History Lumbar pain with radiation down right leg Dental caries Brain TIA Dysarthria Chronic migraine Anxiety and depression History of venous thromboembolism Obesity Tobacco use History of nephrolithiasis Chronic neck and back pain Factor 5 Leiden mutation, heterozygous Home Medications ?Medication ?Instructions ?Recorded ?Last Taken ?Type medroxyprogesterone 150 mg/mL 150 mg IM .[id number] control 01/30/15 Unknown History intramuscular syringe topiramate 25 mg tablet 200 mg PO BID 01/30/15 Unknown History citalopram 40 mg tablet 40 mg PO DAILY mental health 04/04/19 Unknown History haloperidol 5 mg tablet 2.5 mg PO TID PRN Anxiety 04/04/19 Unknown History apixaban 5 mg tablet 5 mg PO BID blood thinner 06/03/20 Unknown History cholecalciferol (vitamin D3) 50 2,000 unit PO DAILY vitamin 06/03/20 Unknown History mcg (2,000 unit) capsule acetaminophen 325 mg capsule 325 mg PO ONCE PRN Pain 1-10 Or 08/26/20 Unknown History (Tylenol) Fever lidocaine 5 % topical patch 1 patch topical DAILY pain #6 ea 04/13/21 Unknown Rx (Lidoderm) albuterol sulfate 90 mcg/actuation 2 puff inhalation Q6H PRN 03/15/23 Unknown History aerosol inhaler CONGESTION/ALLERGIES cetirizine 10 mg tablet 10 mg PO .DAILY AM allergies 03/15/23 Unknown History famotidine 40 mg tablet 40 mg PO Q12H reflux 03/15/23 Unknown History lamotrigine 200 mg tablet 200 mg PO DAILY seizures 03/15/23 Unknown History montelukast 10 mg tablet 10 mg PO QHS allergies 03/15/23 Unknown History triamcinolone acetonide 55 mcg 2 spray intranasal DAILY 03/15/23 Unknown History nasal spray aerosol rimegepant 75 mg disintegrating 75 mg PO DAILY PRN MIGRAINE 08/30/23 Unknown History tablet (Nurtec ODT) erenumab-aooe 70 mg/mL mg subcut 10/31/23 Unknown History subcutaneous auto-injector (Aimovig Autoinjector) hydrocodone-acetaminophen 5-325mg 1 tab PO Q6H PRN pain 3 days #12 08/17/24 Unknown Rx 5mg-325mg tabs methocarbamol 500 mg tablet 250 - 500 mg PO BID PRN PRN muscle 08/17/24 Unknown History spasm Allergy/AdvReac Type Severity Reaction Status Date / Time acetaminophen (From [place]) Allergy Itching Verified 08/17/24 15:56 hydrocodone (From [place]) Allergy Itching Verified 08/17/24 15:56 oxycodone (From Percocet) AdvReac Intermediate Itching Verified 08/17/24 15:56 cephalexin monohydrate (From AdvReac WEAKNESS, Verified 08/17/24 15:56 Keflex) MUSCLE ACHES Family History Mother Heart disease CVA (cerebral vascular accident) Diabetes Father No problems noted. Surgical History S/P cervical spinal fusion History of toe surgery History of carpal tunnel release Social History household members: other details: Lives in her home with her 3 children, youngest 9. Smoking Status: Current every day smoker tobacco type: cigarettes, e-cigarettes and smokeless tobacco alcohol intake: never substance use type: does not use ROS <Kelsea Glauthier, PA - Last Filed: 08/17/24 16:42> ROS ED ROS Narrative Constitutional: Negative for fever, chills, malaise. Neuro: Negative for motor/sensory dysfunction. Musc: Negative for joint pain, swelling, trauma. EXAM <ALONZO Warren - Last Filed: 08/17/24 16:42> Physical Exam Narrative Exam Narrative: CONST: Patient sitting in no acute distress. EYES: Normal inspection. NECK: Normal inspection. RESP: No respiratory distress, CTAB. CVS: Regular rate and rhythm, no murmur, no gallop. Back: Normal inspection, no midline tenderness. Tender over right lumbar paraspinals. SKIN: Color normal, no rash, warm, dry, intact. EXTREMITIES: Normal appearance, full range of motion, 5/5 strength in bilateral hip flexion, knee flexion/extension, DF/PF. Normal sensation. 2+ PT pulses. Trace bilateral ankle edema. NEURO: Alert and answering questions appropriately. PSYCH: Normal affect. Const Vital Signs: 08/17/24 15:56 08/17/24 17:30 Temperature 96.1 F L 98.0 F Temperature Source Temporal Pulse Rate 95 70 Respiratory Rate 14 18 Blood Pressure 130/80 H 123/65 H Blood Pressure Mean 96 84 Pulse Ox 98 100 Oxygen Delivery Method Room Air <Dr. Axel Kaur MD - Last Filed: 08/17/24 18:59> Physical Exam Const Vital Signs: 08/17/24 15:56 08/17/24 17:30 Temperature 96.1 F L 98.0 F Temperature Source Temporal Pulse Rate 95 70 Respiratory Rate 14 18 Blood Pressure 130/80 H 123/65 H Blood Pressure Mean 96 84 Pulse Ox 98 100 Oxygen Delivery Method Room Air MDM <ALONZO Warren - Last Filed: 08/17/24 16:42> MDM MDM Narrative Medical decision making narrative: Patient has acute right low back pain after lifting a heavy machine at work. She felt some pain immediately and it has continued today despite topical medications and ice. She appears well and nontoxic. Vital signs stable. She has no midline tenderness or step-offs. There is reproducible pain of the right lumbar muscles. She has full range of motion of both lower extremities and is neurovascularly intact. Negative straight leg raise. She had no fall or direct trauma and with no midline tenderness there is no indication for x-rays. She has no red flag signs concerning for cauda equina syndrome so no need for an emergent MRI. Her history and physical exam are consistent with a lumbar myofascial strain. She cannot have NSAIDs because she is on Eliquis for factor V Leiden. She had [place] listed as an allergy for itching. States she has taken it multiple times in the past as needed. It causes her nose to itch significantly but she has never had any rash or facial swelling or difficulty breathing. She was administered a dose in the department with Benadryl and is stable. I recommended ice, lidocaine patches, and Tylenol at home and prescribed [place] for breakthrough pain. I placed workplace restrictions for 1 week for no lifting over 10 pounds and limited bending and stooping until follow-up with occupational health. She was discharged in stable condition. I have personally performed a face to face assessment of the patient and have reviewed the COOKIE Note. I performed a substantive portion of the visit including all aspects of the following. My dimas findings include: History is remarkable patient lifting a machine at work yesterday. She developed instant pain. She denies bowel or bladder function. Denies radicular pain. No saddle paresthesia anesthesia. Denies foot drop. She denies direct trauma. She is on an anticoagulant because of factor V Leiden abnormality. She cannot take NSAIDs. Exam is vital signs remarkable for slight elevation of blood pressure. She has a BMI of 35.1. Straight leg test is negative right and left. EHLs intact bilaterally. Patella and ankle reflex are 2+. Sensation L3-S1 is intact and symmetric. DP PT pulses palpable. 5/5 strength with plantar dorsiflexion of her foot. She has reproducible bilateral lower back pain worse on the right. There is no clonus or Babinski sign noted. Medical Decision Making history is consistent with acute lumbar sacral myofascial strain. Treatment is ice and will treat with opiate analgesia since she cannot take NSAIDs. Will verify her allergy to hydrocodone and oxycodone. Other additions or changes: [None] <Dr. Axel Kaur MD - Last Filed: 08/17/24 18:59> [facility] Narrative Medical decision making narrative: I have personally performed a face to face assessment of the patient and have reviewed the COOKIE Note. I performed a substantive portion of the visit including all aspects of the following. My dimas findings include: History is remarkable patient lifting a machine at work yesterday. She developed instant pain. She denies bowel or bladder function. Denies radicular pain. No saddle paresthesia anesthesia. Denies foot drop. She denies direct trauma. She is on an anticoagulant because of factor V Leiden abnormality. She cannot take NSAIDs. Exam is vital signs remarkable for slight elevation of blood pressure. She has a BMI of 35.1. Straight leg test is negative right and left. EHLs intact bilaterally. Patella and ankle reflex are 2+. Sensation L3-S1 is intact and symmetric. DP PT pulses palpable. 5/5 strength with plantar dorsiflexion of her foot. She has reproducible bilateral lower back pain worse on the right. There is no clonus or Babinski sign noted. Medical Decision Making history is consistent with acute lumbar sacral myofascial strain. Treatment is ice and will treat with opiate analgesia since she cannot take NSAIDs. Will verify her allergy to hydrocodone and oxycodone. Other additions or changes: [None] Discharge Plan Triage Chief Complaint: Back ED Midlevel Provider: Kelsea Dixon ED Provider: Axel Kaur Dx/Rx/DC Orders Clinical Impression: Acute lumbar myofascial strain, Factor V Leiden, Anticoagulant long-term use Instructions: Back Safety: Lifting Prescriptions: New hydrocodone-acetaminophen 5-325 mg tablet 1 tab PO Q6H PRN (Reason: pain) 3 Days Qty: 12 0RF No Action acetaminophen [Tylenol] 325 mg capsule 325 mg PO ONCE PRN (Reason: Pain 1-10 Or Fever) Aimovig Autoinjector 70 mg/mL auto-injector subcut topiramate 25 MG tablet 200 mg PO BID medroxyprogesterone 150 MG/ML syringe 150 mg IM .[id number] citalopram 40 MG tablet 40 mg PO DAILY haloperidol 5 MG tablet 2.5 mg PO TID PRN (Reason: Anxiety) cholecalciferol (vitamin D3) 2,000 UNIT capsule 2,000 unit PO DAILY apixaban 5 MG tablet 5 mg PO BID lidocaine [Lidoderm] 5 % adhesive patch,medicated 1 patch topical DAILY Qty: 6 0RF Rx Instructions: leave on most painful area for up to 12 hrs lamotrigine 200 mg tablet 200 mg PO DAILY Patient Comments: TAKE 1 TABLET BY MOUTH ONCE DAILY IN THE MORNING cetirizine 10 mg tablet 10 mg PO .DAILY AM famotidine 40 mg tablet 40 mg PO Q12H Patient Comments: PT TAKES AT DINNER TIME AND THEN ONE AT BEDTIME triamcinolone acetonide 55 mcg aerosol,spray 2 spray INTRANASAL DAILY Patient Comments: USE 2 SPRAY(S) INTRANASALLY ONCE DAILY montelukast 10 mg tablet 10 mg PO QHS Patient Comments: TAKE 1 TABLET BY MOUTH ONCE DAILY albuterol sulfate 90 mcg/actuation HFA aerosol inhaler 2 puff inhalation Q6H PRN (Reason: CONGESTION/ALLERGIES) methocarbamol 500 mg tablet 250 - 500 mg PO BID PRN PRN (Reason: muscle spasm) Nurtec ODT 75 mg tablet,disintegrating 75 mg PO DAILY PRN Primary Care Provider: Neli Reyes Referrals: Neli Reyes [employer]ACHINE [employer]ING [employer] [Primary Care Provider] - Activity Restrictions/Additional Instructions: Your symptoms are consistent with a low back strain. Continue ice. You can use lidocaine patches or the Voltaren gel. It is important you follow-up with your pain management doctor and occupational health for reevaluation. Print Language: Khmer Disposition Disposition: Home, Self Care Discharge Date/Time: 08/17/24 17:32
[2024-08-17] MEDS: Lidocaine 5% Patch 1 PATCH TOPICAL (16:32)
[2024-08-17] MEDS: HYDROcodone Bitartrate/Apap 5/325 Tablet PO (16:34)
[2024-08-17] MEDS: DiphenhydrAMINE 25 MG Capsule PO (16:39)
[2024-08-17 17:30] VITALS: BP 123/65; PULSE 70; RESP 18; TEMP 36.7; O2SAT 100
== END 2024-08-17 17:32 | disposition home or self-care (01) ==
LOC: ED 17:00
PROVIDERS: Emergency Provider Emergency Medicine; PCP Nurse Practitioner Family; Visit Provider Emergency Medicine
DX: S39.012A Strain of muscle, fascia and tendon of lower back, initial encounter (principal); D68.51 Activated protein C resistance; X50.0XXA Overexertion from strenuous movement or load, initial encounter; Y93.E5 Activity, floor mopping and cleaning; Y99.0 Civilian activity done for income or pay; R03.0 Elevated blood-pressure reading, without diagnosis of hypertension; F17.210 Nicotine dependence, cigarettes, uncomplicated; F17.290 Nicotine dependence, other tobacco product, uncomplicated; Z79.01 Long term (current) use of anticoagulants; Z79.899 Other long term (current) drug therapy
CPT/HCPCS: 99283

== ENCOUNTER 2024-09-22 16:49 | Emergency (ER) | payer MEDICAID, SELFPAY ==
[2024-09-22 16:49] VITALS: BP 113/80; PULSE 89; RESP 16; TEMP 36.7; O2SAT 98; BMI 34.2
--- NOTE | 2024-09-22 17:40 | RAD_ITS ---
EXAM: Right wrist radiographs CLINICAL HISTORY: Pain COMPARISON: None TECHNIQUE: Three views of the right wrist FINDINGS: See impression RAD/Wrist min 3 Views IMPRESSION: Negative for acute displaced fracture or dislocation. No significant arthropat hy. Reading Location: [facility]
[2024-09-22] MEDS: DiphenhydrAMINE 25 MG Capsule PO (17:44)
[2024-09-22] MEDS: HYDROcodone Bitartrate/Apap 5/325 Tablet PO (17:44)
--- NOTE | 2024-09-22 18:02 | EDS_ITS ---
HPI History of Present Illness Chief Complaint: Upper Extremity Injury Narrative Narrative: Chief complaint and HPI: Right wrist pain. 38-year-old female with past medical history of factor V Leyden on Eliquis, history of carpal tunnel presents for evaluation of right wrist pain. Onset of wrist pain has been several days. Patient denies any injury or trauma. Has been taking Tylenol with little relief. Pain is worse with movement. Occasionally gets sharp pain that shoots into the hand and down the fingers. Not necessarily in the median distribution. Had carpal tunnel release on the wrist years ago. States it feels similar but slightly different. Denies any fever, chills, numbness. Review of systems: See HPI Medications: As listed on the chart Allergies: As listed on the chart PFSH: Per chart Vital signs: As listed on the chart. Reviewed. Physical exam: Gen: A&O x3, NAD Head: Normocephalic, atraumatic Eyes: No sclera icterus, conjunctiva clear CV: Regular rate Resp: Nonlabored respiration Musc: Full ROM of the right upper extremity including the wrist/hand/fingers, patient does have tenderness with movement of the wrist, patient has a positive Tinel's/Phalen's test, radial/ulnar pulses +2 bilaterally, no deformity, normal capillary refill, compartments soft, strength plus 5 out of 5 bilaterally in the upper extremities Skin: Warm, dry Neuro: Alert, oriented, grossly intact, sensation intact Psych: Cooperative, appropriate mood and affect [facility] Medical History Lumbar pain with radiation down right leg Dental caries Brain TIA Dysarthria Chronic migraine Anxiety and depression History of venous thromboembolism Obesity Tobacco use History of nephrolithiasis Chronic neck and back pain Factor 5 Leiden mutation, heterozygous Home Medications ?Medication ?Instructions ?Recorded ?Last Taken ?Type medroxyprogesterone 150 mg/mL 150 mg IM .[id number] verenice h control 01/30/15 Unknown History intramuscular syringe topiramate 25 mg tablet 200 mg PO BID 01/30/15 Unkno wn History citalopram 40 mg tablet 40 mg PO DAILY mental health 04/04/19 Unknown History haloperidol 5 mg tablet 2.5 mg PO TID PRN Anxiety Unknown History apixaban 5 mg tablet 5 mg PO BID blood thinner Unknown History cholecalciferol (vitamin D3) 50 2,000 unit PO DAILY vi tamin 06/03/20 Unknown History mcg (2,000 unit) capsule acetaminophen 325 mg capsule 325 mg PO ONCE PRN Pain 1 -10 Or 08/26/20 Unknown History (Tylenol) Fever lidocaine 5 % topical patch 1 patch topical DAILY pain #6 ea 04/13/21 Unknown Rx (Lidoderm) albuterol sulfate 90 mcg/actuation 2 puff inhalation Q 6H PRN 03/15/23 Unknown History aerosol inhaler CONGESTION/ALLERGIES cetirizine 10 mg tablet 10 mg PO .DAILY AM allergies 03/15/23 Unknown History famotidine 40 mg tablet 40 mg PO Q12H reflux 3 Unknown History lamotrigine 200 mg tablet 200 mg PO DAILY seizures 10/02 Unknown History montelukast 10 mg tablet 10 mg PO QHS allergies 03/15 Unknown History triamcinolone acetonide 55 mcg 2 spray intranasal JILL Y 03/15/23 Unknown History nasal spray aerosol rimegepant 75 mg disintegrating 75 mg PO DAILY PRN MICHELLE RUMA 08/30/23 Unknown History tablet (Nurtec ODT) erenumab-aooe 70 mg/mL mg subcut 10/31/23 Unknown H istory subcutaneous auto-injector (Aimovig Autoinjector) methocarbamol 500 mg tablet 250 - 500 mg PO BID PRN MS N muscle 08/17/24 Unknown History spasm methylprednisolone 4 mg tablets in See Rx Instructions PO PER PKG DIR 09/07/24 Unknown Rx a dose pack (Medrol (Julio Cesar)) #21 tabs Allergy/AdvReac Type Severity Reaction Status Date / Time acetaminophen (From [place]) Allergy Itching Verified 09/07/24 11:33 hydrocodone (From [place]) Allergy Itching Verified 09/07/24 11:33 oxycodone (From Percocet) AdvReac Intermediate Itching Verified 09/07/24 11:33 cephalexin monohydrate (From AdvReac WEAKNESS, Verified 09/07/24 11:33 Keflex) MUSCLE ACHES Family History Mother Heart disease CVA (cerebral vascular accident) Diabetes Father No problems noted. Surgical History S/P cervical spinal fusion History of toe surgery History of carpal tunnel release Social History household members: other details: Lives in her home with her 3 children, youngest 9. Smoking Status: Current every day smoker tobacco type: cigarettes, e-cigarettes and smokeless tobacco alcohol intake: never substance use type: does not use EXAM Physical Exam Const Vital Signs: 09/22/24 16:49 Temperature 98.1 F Temperature Source Temporal Pulse Rate 89 Respiratory Rate 16 Blood Pressure 113/80 Blood Pressure Mean 91 Pulse Ox 98 Oxygen Delivery Method Room Air MDM MDM MDM Narrative Medical decision making narrative: 38-year-old female with past medical history of factor V Leyden on Eliquis, history of carpal tunnel presents for evaluation of right wrist pain. Differential diagnosis includes but is not limited to wrist sprain, carpal tunnel, suspect less likely fracture. Patient did not drive here in the emergency department today. [place] given with Benadryl. X-ray of the wrist obtained. X-ray of the wrist was personally reviewed interpreted by me, ED physician. No fracture or dislocation. At this point in time, I suspect patient's pain is likely secondary to wrist sprain as well as possible carpal tunnel. She will be given a wrist brace. Follow-up with orthopedics. Tylenol as needed for pain. She confirmed understand the plan. Impression: 1. Right wrist pain Discharge Plan Triage Chief Complaint: Upper Extremity Injury ED Provider: Shilo Dunne Dx/Rx/DC Orders Clinical Impression: Acute wrist pain Instructions: BRIAN WILLIAM Wrist Sprain Prescriptions: No Action acetaminophen [Tylenol] 325 mg capsule 325 mg PO ONCE PRN (Reason: Pain 1-10 Or Fever) Aimovig Autoinjector 70 mg/mL auto-injector subcut methylprednisolone [Medrol (Julio Cesar)] 4 mg tablets,dose pack See Rx Instructions PO PER PKG DIR Qty: 21 0RF Rx Instructions: PO PER PKG DIR for 6 days topiramate 25 MG tablet 200 mg PO BID medroxyprogesterone 150 MG/ML syringe 150 mg IM .[id number] citalopram 40 MG tablet 40 mg PO DAILY haloperidol 5 MG tablet 2.5 mg PO TID PRN (Reason: Anxiety) cholecalciferol (vitamin D3) 2,000 UNIT capsule 2,000 unit PO DAILY apixaban 5 MG tablet 5 mg PO BID lidocaine [Lidoderm] 5 % adhesive patch,medicated 1 patch topical DAILY Qty: 6 0RF Rx Instructions: leave on most painful area for up to 12 hrs lamotrigine 200 mg tablet 200 mg PO DAILY Patient Comments: TAKE 1 TABLET BY MOUTH ONCE DAILY IN THE MORNING cetirizine 10 mg tablet 10 mg PO .DAILY AM famotidine 40 mg tablet 40 mg PO Q12H Patient Comments: PT TAKES AT DINNER TIME AND THEN ONE AT BEDTIME triamcinolone acetonide 55 mcg aerosol,spray 2 spray INTRANASAL DAILY Patient Comments: USE 2 SPRAY(S) INTRANASALLY ONCE DAILY montelukast 10 mg tablet 10 mg PO QHS Patient Comments: TAKE 1 TABLET BY MOUTH ONCE DAILY albuterol sulfate 90 mcg/actuation HFA aerosol inhaler 2 puff inhalation Q6H PRN (Reason: CONGESTION/ALLERGIES) methocarbamol 500 mg tablet 250 - 500 mg PO BID PRN PRN (Reason: muscle spasm) Nurtec ODT 75 mg tablet,disintegrating 75 mg PO DAILY PRN Primary Care Provider: Care Physician,No Primary Referrals: Yoni Ortiz DO [Med Staff - Active Staff] - 3-5 Days Abelardo Obrien MD [Med Staff - Active Staff] - 3-5 Days Care Physician,No Primary [Primary Care Provider] - Activity Restrictions/Additional Instructions: Follow-up with primary care physician. If you do not have 1 follow-up with the 1 provided above. Follow-up with orthopedic physician. Tylenol as needed for pain. Wrist brace for comfort. Print Language: Mongolian Disposition Disposition: Home, Self Care Discharge Date/Time: 09/22/24 19:00
== END 2024-09-22 19:00 | disposition home or self-care (01) ==
PROVIDERS: Emergency Provider Surgery; Visit Provider Surgery
DX: M25.531 Pain in right wrist (principal); D68.51 Activated protein C resistance; M54.50 Low back pain, unspecified; G43.709 Chronic migraine without aura, not intractable, without status migrainosus; F17.220 Nicotine dependence, chewing tobacco, uncomplicated; F17.210 Nicotine dependence, cigarettes, uncomplicated; F17.290 Nicotine dependence, other tobacco product, uncomplicated; Z79.01 Long term (current) use of anticoagulants; Z79.899 Other long term (current) drug therapy
CPT/HCPCS: 73110; 99282

== ENCOUNTER 2024-10-14 13:30 | Outpatient (RCR) | payer OTHER, MEDICAID, SELFPAY ==
--- NOTE | 2024-09-11 12:01 | HP.PTEVAL ---
Patient's Visit Information Visit Information Visit Information: CODY KC is a 38 year old F referred to Physical Therapy by ALONZO Infante with a diagnosis of LUMBAR STRAIN. Date of Evaluation: 09/09/24 Physical Therapist: Lucy Irene PT, Cert MDT Visit Plan Frequency: 3x /Week Duration: 4-6 Weeks Plan: CURRENTLY NOT OFF WORK BUT IS ON A 10 LB LIFTING LIMIT, NO BENDING, NO STOOPING AND IS ALLOWED TO SIT DOWN NEEDED UNTIL AT LEAST 09/23/24. AQUATIC THERAPY FOR PAIN RELIEF, POSTURE CORRECTION/STRENGTHENING, INSTRUCTION IN APPROPRIATE BODY MECHANICS AND ACTIVITY MODIFICATIONS. DLS STARTING WITH A NEUTRAL SPINE PROGRESSING ROM TOLERATED. JADEN LE ROM, STRETCHING AND STRENGTHENING. HEP INSTRUCTION. 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 CURRENTLY NOT OFF WORK BUT IS ON A 10 LB LIFTING LIMIT, NO BENDING, NO STOOPING AND IS ALLOWED TO SIT DOWN NEEDED UNTIL AT LEAST 09/23/24. Disability: NO Present symptoms: JADEN LOW BACK, JADEN BUTTOCK AND JADEN POST THIGH PAIN APPROX 2/[address] JADEN LE INTERMITTENT WEAKNESS AND GIVING OUT. PATIENT DENIES JADEN LE NUMBNESS OR TINGLING. Present since: 08/16/24 Pain Scale: WORST 7/10, LEAST 3/10 Currently: 3/10 Is it getting better, worse or staying the same: STAYING THE SAME Commenced as a result of: PATIENT REPORTS: LIFTING A MACHINE IN A SQUATTED POSITION AND FELT SENSATION OF MUSCLES IN HER LOWER BACK RIPPING. EVENTUALLY GOT MACHINE INTO ROOM AND CLEANED FLOOR. PATIENT LATER TOOK A MUSCLE RELAXER THAT WAS PRESCRIBED TO HER BY PAIN MGMT. PATIENT CONTINUED TO WORK ABOUT 7.5 MORE HOURS AND STATES IT WAS A ROUGH NIGHT BUT SHE MADE IT THROUGH. SHE REPORTS SHE WENT HOME AND GOT ON ICE AND THE NEXT DAY SHE HAD HER DAUGHTER DRIVE HER TO THE HOSPITAL. Worse: ANYTHING WITH BENDING OVER, RISING FROM SITTING, STANDING IN ONE SPOT, WALKING FOR LONG PERIODS OF TIME, CONSTANTLY SQUATTING DOWN, ANYTHING WITH TWISTING AND TURNING, GETTING THINGS DONE AT HOME VS WORK, LEANING OVER. Better: SITTING DOWN HELPS BUT IT DEPENDS ON SITTING SURFACE, ICE, MUSCLE RELAXER, lidocaine patches. CHIROPRACTIC. Disturbed sleep: YES - COMING HOME FROM WORK HIPS ARE IRRITATED AND SIDE SLEEPER AND CAN'T GET COMFORTABLE. Previous history/Previous treatment: HISTORY OF LOW BACK PAIN STARTING 11 YEARS AGO WITH PREGANCY OF YOUNGEST CHILD - SPRAINED BACK WHILE . WAS MOVING A TOOL BOX OUT OF [employer] AND KID HELPING HER DROPPED THE OTHER END AND ALSO HAD BACK LABOR. PAIN EVENTUALLY WENT AWAY AND CAME BACK TWO YEARS LATER AND KEPT COMING BACK. DX'D WITH 4 BULGING DISCS AND SCIATICA AND REFERRED TO PAIN MGMT AND HAS BEEN IN PAIN MGMT EVER SINCE. MULTIPLE BETH'S AND OTHER PAIN MGMT PROCEEDURES BUT NO LUMBAR SPINE SURGERY. LAST LUMBAR PAIN MGMT PROCEEDURE WAS ABOUT 10 MONTHS AGO. HAS ALSO HAD 4 TO 5 YEARS WORTH OF PHYSICAL THERAPY FOR LOW BACK WITH LAST TIME BEING ABOUT 4 YEARS AGO. HAS ALSO HAD LOW BACK CHIROPRACTIC WITH LAST TIME BEING ABOUT 18 MONTHS AGO WITH BENEFIT LASTING ABOUT A WEEK. Treatment this episode: MEDICINE Coughing/sneezing/straining: POSITIVE FOR INCREASED PAIN. Gait: NO AD'S OR FALLS SINCE THIS INJURY. PATIENT REPORTS HER FEET ARE DRAGGING ON THE FLOOR NOW SINCE THIS INJURY AND SHE IS WALKING MUCH SLOWER. Bowel or Bladder Dysfunction: PATIENT DENIES. Accidents: NO Unexplained weight loss: NO Imaging: NONE SINCE THIS INJURY PER PATIENT REPORT. PMH/Recent major surgery: Lupus Anticoag. Brain TIA Dysarthria Chronic migraine Anxiety and depression History of venous thromboembolism Obesity Tobacco use History of nephrolithiasis Chronic neck and back pain Factor 5 Leiden mutation, heterozygous S/P cervical spinal fusion 2022 History of toe surgery History of carpal tunnel release Objective Objective: Sitting/Standing Posture: SLOUCHED IN SITTING. NORMAL LORDOSIS. NO RELEVANT LATERAL LUMBAR SHIFT. Active Correction of posture: ABLE TO PARTIALLY CORRECT. NE ON SX'S. Other Observations: INDEP GAIT INTO PT WITH SLOW ANTALGIC GAIT PATTERN. NO LOB AND NO AD'S. Sensory deficit: JADEN LE LIGHT TOUCH SENSATION GROSSLY INTACT AND SYMMETRICAL ROM deficit: JADEN HIP FLEXOR, HS AND CALF TIGHTNESS. Motor deficit: JADEN LE'S GROSSLY 5/5 WITH MMT'ING EXCEPT HIPS 4/5. Reflexes: 2+ JADEN LE'S. Dural Signs: N Lumbar mvmt loss: flex - MOD ext - NAZANIN R SG - MOD L SG - MOD PATIENT C/O INCREASED PAIN WITH LUMBAR ROM TESTING ALL PLANES BUT NW A RESULT. Core strength: FAIR Palpation: TENDERNESS OF LUMBAR SPINE, JADEN LUMBAR PARASPINALS AND SI REGIONS JADEN TUG TEST: TRIAL 1 - 16.46 SEC, TRIAL 2 - 13.93 SEC. NO AD. 30 STS TEST: 5 WITH ONE UE ASSIST. Balance/Special Test Scores Oswestry Low Back Score: 25 Goals Goal 1:: DECREASE C/O BACK AND LE SX'S BY AT LEAST 75% TO EASE ADL AND WORK FUNCTION Goal Time Frame: 4-6 Weeks Goal 2:: IMPROVE PERSONAL CARE, LIFTING, SITTING, STANDING, SOCIAL LIFE, TRAVEL AND EMPLOYMENT/HOMEMAKING FUNCTION WITH AT LEAST 10 POINT IMPROVEMENT IN BACK OSWESTRY SCORE. Goal Time Frame: 4-6 Weeks Goal 3:: PATIENT WILL COMPLETE 8 STANDS IN 30 SECS WITHOUT UE ASSIST TO DEMONSTRATE IMPROVED FUNCTIONAL STRENGTH Goal Time Frame: 4-6 Weeks Goal 4:: PATIENT WILL COMPLETE TUG IN < 10 SECS INDEP'LY WITHOUT AD TO DEMONSTRATE IMPROVED GAIT FUNCTION. Goal Time Frame: 4-6 Weeks Goal 5:: PATIENT WILL HAVE MIN LUMBAR MVMT LOSS ALL PLANES WITHOUT C/O PAIN TO EASE WORK AND ADL FUNCTION. Goal Time Frame: 4-6 Weeks Goal 6:: PATIENT WILL BE INDEP WITH A HEP FOR CONTINUED IMPROVEMENT ONCE FORMAL PHYSICAL THERAPY CONCLUDES. Goal Time Frame: 4-6 Weeks Rehabilitation Potential Physical Therapy Diagnosis: CORE AND LE WEAKNESS AND STIFFNESS WITH C/O LOW BACK PAIN Rehabilitation Potential: Good Anticipated Interventions Patient/Client Instruction: Educate patient on: Condition, Plan of Care and Risk Factors For the Purpose of:: To improve self management Therapeutic Exercise to Include: Strength training, Body mechanics, Postural training, Flexibilty training, Neuromotor development, In an aquatic setting and Dynamic Lumbar Stabilization For the Purpose of:: To decrease pain, To increase ROM, To improve nutrient delivery to tissue, To improve muscle performance and motor function, To increase tolerance to activity/condition/position, To improve ability of physical actions for home/community/work/leisure, To improve gait and locomotor functions, To decrease soft tissue restriction, To increase flexibility/ROM and To improve self management Text: Thank you for the opportunity to evaluate your patient. For Medicare and Medicare HMO plans, please review the plan of care and approve it. It will need to be FAXED BACK to us at [phone] for Medicare purposes. For Medicare only, by signing this I certify the plan of care. Please let me know if there are questions or concerns regarding this plan of care. Physician Signature: Date:
--- NOTE | 2024-10-14 19:52 | HP.PTREVAL ---
Re-Evaluation Intro: ALONZO Infante, It has been my pleasure to treat CODY KC over the last 11 visits for LUMBAR STRAIN. Please see the progress note below for an update on the physical therapy plan of care! Subjective Subjective: PATIENT REPORTS THERAPY HAS HELPED A LOT AND HER LOW BACK IS DOING A LOT BETTER. LBP IS RANGING 0-3/10 NOW. PATIENT REPORTS SHE USES HER HANDS SO MUCH AT WORK. 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 STATES SHE WAS ON PREDNISONE FOR 10 DAYS AND IT FEELS A LOT BETTER NOW - IT DOESN'T BOTHER ME NOW BUT THEY WANTED ME TO FOLLOW ME UP WITH THERAPY. PATIENT REPORTS SHE PLANS TO FOLLOW UP WITH PHYSICIAN FOR HER BACK NOW THAT SHE HAS COMPLETED ORDERED PT SESSIONS. Objective Objective/Function: PATIENT WAS SEEN TODAY FOR RE-ASSESSMENT OF PROGRESS TOWARD THE SET PT GOALS AND THE NEED FOR FURTHER PHYSICAL THERAPY VS READINESS FOR DISCHARGE. THIS PATIENT HAS MADE GREAT PROGRESS WITH AQUATIC THERAPY AND HEP INSTRUCTION UPON EXAM TODAY: Dural Testing: NEGATIVE JADEN LE'S. Lumbar mvmt loss: flex - NIL ext - MIN R SG - MIN L SG - NIL PATIENT C/O L LBP WITH R SG TESTING BUT NW A RESULT. Core strength: GOOD TUG TEST: 8.01 30 STS TEST: 13 WITHOUT UE ASSIST. Plan Plan Plan: CONSIDER D/C TO HEP AND INDEP WATER EX IF NO FURTHER PT ORDERED AFTER PHYSICIAN RE-CHECK. Balance/Gait/Functional tests Balance/Special Test Scores Oswestry Low Back Score: 11 Goals Goals Goal 1:: DECREASE C/O BACK AND LE SX'S BY AT LEAST 75% TO EASE ADL AND WORK FUNCTION Goal Time Frame: 4-6 Weeks Goal Progress: Goal Met Goal 2:: IMPROVE PERSONAL CARE, LIFTING, SITTING, STANDING, SOCIAL LIFE, TRAVEL AND EMPLOYMENT/HOMEMAKING FUNCTION WITH AT LEAST 10 POINT IMPROVEMENT IN BACK OSWESTRY SCORE. Goal Time Frame: 4-6 Weeks Goal Progress: Goal Met Goal 3:: PATIENT WILL COMPLETE 8 STANDS IN 30 SECS WITHOUT UE ASSIST TO DEMONSTRATE IMPROVED FUNCTIONAL STRENGTH Goal Time Frame: 4-6 Weeks Goal Progress: Goal Met Goal 4:: PATIENT WILL COMPLETE TUG IN < 10 SECS INDEP'LY WITHOUT AD TO DEMONSTRATE IMPROVED GAIT FUNCTION. Goal Time Frame: 4-6 Weeks Goal Progress: Goal Met Goal 5:: PATIENT WILL HAVE MIN LUMBAR MVMT LOSS ALL PLANES WITHOUT C/O PAIN TO EASE WORK AND ADL FUNCTION. Goal Time Frame: 4-6 Weeks Goal Progress: Progressing Goal 6:: PATIENT WILL BE INDEP WITH A HEP FOR CONTINUED IMPROVEMENT ONCE FORMAL PHYSICAL THERAPY CONCLUDES. Goal Time Frame: 4-6 Weeks Goal Progress: Progressing Anticipated Interventions Anticipated Interventions Patient/Client Instruction: Educate patient on: Condition, Plan of Care and Risk Factors For the Purpose of:: To improve self management Therapeutic Exercise to Include: Strength training, Body mechanics, Postural training, Flexibilty training, Neuromotor development, In an aquatic setting and Dynamic Lumbar Stabilization For the Purpose of:: To decrease pain, To increase ROM, To improve nutrient delivery to tissue, To improve muscle performance and motor function, To increase tolerance to activity/condition/position, To improve ability of physical actions for home/community/work/leisure, To improve gait and locomotor functions, To decrease soft tissue restriction, To increase flexibility/ROM and To improve self management Re-Evaluation Ending Re-evaluation ending: Please do not hesitate to contact me at [phone] by phone or if you have questions or concerns regarding this new plan of care! Sincerely, Lucy Irene, PT, Cert MDT
== END 2024-10-14 19:00 | disposition home or self-care (01) ==
LOC: PT 13:30
PROVIDERS: Referring Provider Physician Assistant Surgical; Visit Provider Physician Assistant Surgical
DX: S39.012D Strain of muscle, fascia and tendon of lower back, subsequent encounter (principal)
CPT/HCPCS: 97112; 97113; 97162; 97530

== ENCOUNTER 2024-10-22 20:51 | Observation (INO) | payer MEDICAID, SELFPAY ==
[2024-10-22 20:55] VITALS: BP 133/82; PULSE 74; RESP 14; TEMP 36.8; O2SAT 99; BMI 37.4
--- NOTE | 2024-10-22 21:10 | EKG12_ITS ---
Test Reason : DYSRHYTHMIA Blood Pressure : */* mmHG Vent. Rate : 64 BPM Atrial Rate : 64 BPM P-R Int : 152 ms QRS Dur : 82 ms QT Int : 388 ms P-R-T Axes : 62 27 21 degrees QTcB Int : 400 ms Normal sinus rhythm Normal ECG Confirmed by Jerome Fall ([id number]), material expeditor ELI LAIRD ([id number]) on 10/24/2024 10:02:03 AM Referred By: Confirmed By: Jerome Fall
--- NOTE | 2024-10-22 21:10 | CT_ITS ---
PROCEDURE: STROKE BRAIN/HEAD WITHOUT CONT 10/22/2024 REASON FOR EXAM: NEURO DEFICIT, ACUTE, STROKE SUSPECTED TECHNIQUE: Head CT without intravenous contrast. Coronal and Sagittal reconstruction series were provided. One or more dose reduction techniques were used (e.g., Automated exposure control, adjustment of the mA and/or kV according to patient size, use of iterative reconstruction technique. COMPARISON: MRI brain 08/30/2023 FINDINGS: * ACUTE: No acute infarct or hemorrhage. No mass effect or herniation. * BRAIN PARENCHYMA: Signal intensities are within normal limits for age. * VENTRICLES/EXTRA-AXIAL SPACES: No hydrocephalus or extra-axial fluid collections. * EXTRACRANIAL STRUCTURES: Visualized osseous structures are normal. Soft tissues are normal. CT/STROKE Brain/Head without Cont IMPRESSION: No acute intracranial abnormality. Reading [facility]
--- NOTE | 2024-10-22 21:11 | EX.ED.DYSGE1 ---
HPI History of Present Illness Chief Complaint: General Illness Informant: patient and EMS Narrative Narrative: Presents with difficulty getting words out while at work. This was a little over an hour ago. She states on the phone with her daughter. She is dealing with migraine for 2 weeks now. No head injuries. Denies any weakness or hemiparesis. She states similar symptoms when she had a TIA stating either this past April the year before that. She is on Eliquis for factor V Leiden with blood clots in the past her last dose was at noon for which she takes at noon and at midnight after work. Prior similar symptoms: Yes [facility] Medical History Lumbar pain with radiation down right leg Dental caries Brain TIA Dysarthria Chronic migraine Anxiety and depression History of venous thromboembolism Obesity Tobacco use History of nephrolithiasis Chronic neck and back pain Factor 5 Leiden mutation, heterozygous Home Medications ?Medication ?Instructions ?Recorded ?Last Taken ?Type medroxyprogesterone 150 mg/mL 150 mg IM .[id number] control 01/30/15 08/24/24 11:00 History intramuscular syringe 150 mg citalopram 40 mg tablet 40 mg PO DAILY mental health 04/04/19 10/22/24 10:00 History 40 mg haloperidol 5 mg tablet 2.5 mg PO TID PRN Anxiety 04/04/19 Unknown History apixaban 5 mg tablet 5 mg PO BID blood thinner 06/03/20 10/22/24 12:30 History 5 mg acetaminophen 325 mg capsule 325 mg PO ONCE PRN Pain 1-10 Or 08/26/20 Unknown History (Tylenol) Fever lidocaine 5 % topical patch 1 patch topical DAILY pain #6 ea 04/13/21 09/20/24 11:00 Rx (Lidoderm) 1 patch albuterol sulfate 90 mcg/actuation 2 puff inhalation Q6H PRN 03/15/23 Unknown History aerosol inhaler CONGESTION/ALLERGIES cetirizine 10 mg tablet 10 mg PO .DAILY AM allergies 03/15/23 10/22/24 10:00 History 10 mg famotidine 40 mg tablet 40 mg PO Q12H reflux 03/15/23 10/21/24 23:00 History 40 mg lamotrigine 200 mg tablet 200 mg PO DAILY bipolar 03/15/23 10/22/24 11:00 History 200 mg montelukast 10 mg tablet 10 mg PO QHS allergies 03/15/23 10/21/24 22:00 History 10 mg triamcinolone acetonide 55 mcg 2 spray intranasal DAILY 03/15/23 10/18/24 11:00 History nasal spray aerosol 2 spray rimegepant 75 mg disintegrating 75 mg PO DAILY PRN MIGRAINE 08/30/23 10/21/24 20:00 History tablet (Nurtec ODT) 75 mg erenumab-aooe 70 mg/mL 70 mg subcut .monthly 10/31/23 09/17/24 10:00 History subcutaneous auto-injector 70 mg (Aimovig Autoinjector) methocarbamol 500 mg tablet 250 - 500 mg PO Q8H PRN muscle 08/17/24 10/01/24 11:00 History spasm 500 mg cholecalciferol (vitamin D3) 25 50 mcg PO DAILY 10/22/24 10/22/24 10:00 History mcg (1,000 unit) capsule 50 mcg citalopram 40 mg tablet (Celexa) 40 mg PO DAILY 10/22/24 Unknown History topiramate 200 mg tablet 200 mg PO BID 10/22/24 10/22/24 11:00 History 200 mg Allergy/AdvReac Type Severity Reaction Status Date / Time acetaminophen (From [place]) Allergy Itching Verified 10/22/24 20:55 hydrocodone (From [place]) Allergy Itching Verified 10/22/24 20:55 oxycodone (From Percocet) AdvReac Intermediate Itching Verified 10/22/24 20:55 cephalexin monohydrate (From AdvReac WEAKNESS, Verified 10/22/24 20:55 Keflex) MUSCLE ACHES Family History Mother Heart disease CVA (cerebral vascular accident) Diabetes Father No problems noted. Surgical History S/P cervical spinal fusion History of toe surgery History of carpal tunnel release Social History household members: other details: Lives in her home with her 3 children, youngest 9. Smoking Status: Current every day smoker tobacco type: cigarettes, e-cigarettes and smokeless tobacco alcohol intake: never substance use type: does not use ROS ROS ED Constitutional Constitutional ED: Denies chills, fever(s) or sweats ENT ENT ED: Denies sore throat Cardiovascular Cardiovascular: Denies chest pain, leg edema, palpitations or racing heartbeat Respiratory/Chest Respiratory/Chest: Denies cough, dyspnea or dyspnea on exertion Gastrointestinal Gastrointestinal: Denies abdominal pain, diarrhea, nausea or vomiting Genitourinary Genitourinary ED: Denies dysuria, hematuria or urinary frequency Musculoskeletal Musculoskeletal: Denies back pain, extremity pain or neck pain Integumentary Denies rash or wounds Neurologic Neurologic: Reports headache(s) and other Details: Expressive aphasia ; Denies paresthesias or weakness EXAM Physical Exam Const Vital Signs: 10/22/24 20:55 10/22/24 21:02 10/22/24 21:15 Temperature 98.2 F Temperature Source Oral Pulse Rate 74 Respiratory Rate 14 Respiratory Pattern Normal Blood Pressure 133/82 H Blood Pressure Mean 99 Pulse Ox 99 Oxygen Delivery Method Room Air Room Air 10/22/24 21:30 Temperature Temperature Source Pulse Rate 66 Respiratory Rate 15 Respiratory Pattern Blood Pressure 124/87 H Blood Pressure Mean 99 Pulse Ox 100 Oxygen Delivery Method Room Air Positive well nourished and well developed General Appearance ED: well developed and NAD HEENT Reports moist mucous membranes HEENT Narrative: Mild left lip droop normocephalic and atraumatic Eyes General Eye ED: Yes normal appearance of both eyes Neck full ROM Chest Wall Chest: Negative for tenderness Resp normal respiratory effort and normal air movement Effort and Inspection: symmetric chest movement; Negative for respiratory distress Cardio regular rate, regular rhythm and no murmurs Peripheral Pulses: pulses 2+ throughout GI normal to inspection, nondistended, normoactive bowel sounds and non-tender Palpation: Negative for guarding or rebound tenderness present Extremity normal to inspection General Extremety ED: Negative for edema or tenderness General Extremity: Negative for edema Neuro oriented x3 Sensorium / Orientation: awake and alert Skin no rashes or lesions noted and no wounds NIHSS NIHSS Initial: 1a Level of Consciousness: 0 1b LOC Questions (Score 2 if aphasic/stupor): 0 1c LOC Commands (Only score 1st attempt): 0 2 Best Gaze (If aphasic, use reflexive mvmts.): 0 3 Visual: 0 4 Facial Palsy: 1 5 Motor Arm Right (UN = amputation/fusion): 0 5 Motor Arm Left: 0 6 Motor Leg Right: 0 6 Motor Leg Left: 1 7 Limb ataxia (Only + if out of proportion): 0 8 Sensory (Aphasia/stupor=0 or 1, coma=2): 1 9 Best Language: 0 10 Dysarthria (mute, coma=2, intubated=UN): 0 11 Extinction and Inattention (only scored if +): 0 Total Score: 3 MDM MDM MDM Narrative Medical decision making narrative: Interventions / MDM: Differential diagnosis: Migraine headache, complex migraine, TIA, CVA Diagnosis considered but do not suspect: Intracranial hemorrhage however CT negative. Patient and family My EKG interpretation: Sinus rate of 64, no ST changes. States T waves were leads III. Nonspecific. Imaging independently reviewed and interpreted by myself: CT brain: No acute process also read by radiology. CT angiogram head and neck interpreted by teleneurologist no acute process. External documents reviewed: N/A Test considered but not ordered:N/A ED course: Patient has an NIH of 3 due to slight left lid droop, slight left leg drift and slight paresthesias right arm compared to the left. Symptoms started little over an hour ago. Stroke protocol initiated. She is on Eliquis therefore not a TNK candidate. 2154: Recheck NIH still had 3 with mild symptoms. Neurologist evaluated agrees no TNK, recommended headache treatment and admission for MRI. She states she has been treated with Reglan and Benadryl in the past for migraine symptoms. I discussed with hospitalist Dr. Kristina Harden for admission to PCU. Re-evaluation: stable Disposition discussed with patient/family/significant other: Case discussed with consulting clinician: Telestroke, hospitalist This note was generated with [employer] dictation software. It may contain incorrect words, spelling, and punctuation that were not noted in checking the note before signing. Lab Data Attestation: I reviewed the patient's lab results. Labs: Laboratory Results - last 24 hr 10/22/24 10/22/24 20:48 21:40 WBC 6.4 RBC 3.77 L Hgb 11.9 L Hct 34.9 L MCV 92.6 MCH 31.6 MCHC 34.1 RDW Std Deviation 48.1 H RDW Coeff of Sharmin 14.1 Plt Count 188 MPV 10.5 Immature Gran % (Auto) 0.200 Neut % (Auto) 44.7 L Lymph % (Auto) 43.7 H [place] % (Auto) 8.6 Eos % (Auto) 2.2 Baso % (Auto) 0.6 Absolute Neuts (auto) 2.9 Absolute Lymphs (auto) 2.80 Nucleated RBC % 0 Differential Comment SCANNED Atypical Lymphocytes 2+ PT 14.3 INR 1.1 APTT 30.8 Sodium 139 Potassium 3.4 Chloride 110 H Carbon Dioxide 18.2 L Anion Gap 11 BUN 12 Creatinine 0.97 Estim Creat Clear Calc 84.27 Est GFR (MDRD) Non-Af 78 BUN/Creatinine Ratio 12.1 Glucose 79 Hemoglobin A1c 5.1 Calcium 9.3 Troponin T High Sens 7 POC Glucose 88 Radiography Diagnostic Testing: Clinical Impression(s) from Imaging Studies Brain CT 10/22/24 21:10 IMPRESSION: No acute intracranial abnormality. Reading Location: [facility] Head/Neck CTA 10/22/24 21:18 IMPRESSION: Patent anterior and posterior intracranial and extracranial circulation, without hemodynamically significant stenosis. Reading Location[facility] Critical Care Time Critical Care Time: Yes Critical care time (excluding procedures): 30-74 minutes, Discussing w/Patient &/or Family/Automobile Upholsterer Apprentice, Discussing w/Consultants, Arranging Admission or Transfer, Performing Direct Patient Care at Bedside and - (31 minutes) Discharge Plan Dx/Rx/DC Orders Clinical Impression: Expressive aphasia, Headache, Paresthesia Disposition Disposition: Acute Care Hospital [facility] Discharge Date/Time: 10/22/24 22:23
--- NOTE | 2024-10-22 21:18 | CT_ITS ---
PROCEDURE: STROKE CTA HEAD AND NECK W/CON 10/22/2024 REASON FOR EXAM: NEURO DEFICIT, ACUTE, STROKE SUSPECTED TECHNIQUE: CTA imaging of the head and neck from the aortic arch to the skull vertex with out contrast and with intravenous contrast. Multiplanar and multisequence images were obtained. CONTRAST: Omnipaque 350 VOLUME: 100 mL Not Provided Gauge IV One or more dose reduction techniques were used (e.g., Automated exposure control, adjustment of the mA and/or kV according to patient size, use of iterative reconstruction technique). COMPARISON: None FINDINGS: Aortic Arch: Normal size and branching pattern. No significant atherosclerotic plaque. Brachiocephalic and Subclavians: Unremarkable RIGHT Carotid: Right CCA: Unremarkable. Right ICA: Unremarkable. Maximum stenosis (NASCET): 0 % Right ECA: Unremarkable. LEFT Carotid: Left CCA: Unremarkable. Left ICA: Unremarkable. Maximum stenosis (NASCET): 0 % Left ECA: Unremarkable. Vertebrals: Codominant. Arise from the subclavians. Both vertebrals form the basilar. RIGHT Vertebral: Unremarkable. LEFT Vertebral: Unremarkable. Anatomy: [place] anatomy is normal. Aneurysm or avm: No intracranial aneurysms or large vascular malformations are identified. Anterior cerebral arteries: Unremarkable: Middle cerebral arteries: Unremarkable. Basilar artery: Unremarkable. Posterior cerebral arteries: Unremarkable. Other major branches of the posterior circulation: Unremarkable. Major venous structures: Unremarkable. Other findings: Neck: No focal soft tissue abnormality. Lungs: Imaged lung avelar are clear. Bones: Status post C5-C7 ACDF. CT/STROKE CTA Head AND Neck W/Con IMPRESSION: Patent anterior and posterior intracranial and extracranial circulation, withou t hemodynamically significant stenosis. Reading Location: [facility]
[2024-10-22 21:26] LABS: Absolute Neutrophil Count 2.9 X10^3/uL (2.0-7.7); Basophil# 0.04 X10^3/uL; Basophil% 0.6 % (0-1); Eosinophil# 0.14 X10^3/uL; Eosinophils% 2.2 % (0-5); Hematocrit 34.9 % (37-47); Hemoglobin 11.9 g/dL (12.0-15.0); Lymphocyte % 43.7 % (19-41); Mean Corp Hgb Conc 34.1 g/dL (32-36); Mean Corpuscular Hgb 31.6 pg (27.0-32.0); Mean Corpuscular Volume 92.6 fL (81-99); Mean Platelet Vol. 10.5 fl (6.2-12.0); Monocyte# 0.55 X10^3/uL; Monocyte% 8.6 % (0-10); NRBC Flagged by Analyzer 0 % (0-5); Neutrophil # 2.87 X10^3/uL (2.7-7.7); Neutrophil % 44.7 % (47-70); POSITIVE MORPHOLOGY YES; Platelet Count 188 K/mm3 (150-450); RBC Distribution Width CV 14.1 % (11.6-14.6); RBC Distribution Width SD 48.1 fl (35.1-43.9); Red Blood Count 3.77 M/mm3 (4.2-5.4); White Blood Count 6.4 K/mm3 (4.4-11.0)
[2024-10-22 21:30] VITALS: BP 124/87; PULSE 66; RESP 15; O2SAT 100
[2024-10-22 21:31] LABS: Differential Indicated SCAN CRITERIA MET
[2024-10-22 21:36] LABS: International Normalized Ratio 1.1; Prothrombin Time (Protime)PT. 14.3 SECONDS (11.7-14.9)
[2024-10-22 21:37] LABS: Partial Thromboplast Time 30.8 Seconds (24.1-36.2)
--- NOTE | 2024-10-22 21:50 | PCM.HP.STD ---
[facility] - General General Date of Admission: 10/22/24 Date of Service: 10/23/24 Chief Complaint: Left leg weakness/expressive aphasia/slurred speech/right arm paresthesias HPI Narrative CODY KC, is a 38 F who presented to the emergency department [facility] on 10/23/2023 with a chief complaint of left leg weakness, expressive aphasia, slurred speech, and right arm paresthesias. She has a history of factor V Leiden and takes Eliquis chronically. She was admitted here in August 2023 at which time she had workup for TIA. She was evaluated by neurology and at that time they thought she was suffering from complex migraines. Her symptoms at this time are again associated with. She states her headache started prior to symptoms. Her symptoms started about an hour prior to presentation. She was on the phone with her daughter. She has had ongoing headaches on and off that are migrainous in nature for the last 2 weeks and is waiting for pre-CERT on her chronic migraine medication. Initial NIH was 3. She was scored a 3 for slight left lid droop, slight left leg drift and slight paresthesias in the right arm. She was evaluated by [facility] neurology and they agreed no TNK due to the Eliquis however recommended treatment of her headache and admission to the hospital for MRI. Vital signs on presentation showed temperature of 98.2, heart rate 74, respiratory rate was 14, blood pressure 133/82 and pulse ox was 99% on room air. CBC showed a mild anemia with hemoglobin 11.9 but was otherwise unremarkable. Coags were normal. Chemistry panel was unremarkable. Troponin was 7 with a delta of less than 6. EKG was sinus rhythm with normal intervals and no ST-T wave changes concerning for acute ischemia. CT of the brain was unremarkable. CTA of the head and neck was unremarkable. With neuro's recommendation will be admitted for completion of stroke workup. Anticipate length of stay to be less than 48 hours. [facility] Medical History Lumbar pain with radiation down right leg Dental caries Brain TIA Dysarthria Chronic migraine Anxiety and depression History of venous thromboembolism Obesity Tobacco use History of nephrolithiasis Chronic neck and back pain Factor 5 Leiden mutation, heterozygous Home Medications ?Medication ?Instructions ?Recorded ?Last Taken ?Type medroxyprogesterone 150 mg/mL 150 mg IM .[id number] control 01/30/15 08/24/24 11:00 History intramuscular syringe 150 mg citalopram 40 mg tablet 40 mg PO DAILY mental health 04/04/19 10/22/24 10:00 History 40 mg haloperidol 5 mg tablet 2.5 mg PO TID PRN Anxiety 04/04/19 Unknown History apixaban 5 mg tablet 5 mg PO BID blood thinner 06/03/20 10/22/24 12:30 History 5 mg acetaminophen 325 mg capsule 325 mg PO ONCE PRN Pain 1- Or 08/26/20 Unknown History (Tylenol) Fever lidocaine 5 % topical patch 1 patch topical DAILY pain #6 ea 04/13/21 09/20/24 11:00 Rx (Lidoderm) 1 patch albuterol sulfate 90 mcg/actuation 2 puff inhalation Q6H PRN 03/15/23 Unknown History aerosol inhaler CONGESTION/ALLERGIES cetirizine 10 mg tablet 10 mg PO .DAILY AM allergies 03/15/23 10/22/24 10:00 History 10 mg famotidine 40 mg tablet 40 mg PO Q12H reflux 03/15/23 10/21/24 23:00 History 40 mg lamotrigine 200 mg tablet 200 mg PO DAILY bipolar 03/15/23 10/22/24 11:00 History 200 mg montelukast 10 mg tablet 10 mg PO QHS allergies 03/15/23 10/21/24 22:00 History 10 mg triamcinolone acetonide 55 mcg 2 spray intranasal DAILY 03/15/23 10/18/24 11:00 History nasal spray aerosol 2 spray rimegepant 75 mg disintegrating 75 mg PO DAILY PRN MIGRAINE 08/30/23 10/21/24 20:00 History tablet (Nurtec ODT) 75 mg erenumab-aooe 70 mg/mL 70 mg subcut .monthly 10/31/23 09/17/24 10:00 History subcutaneous auto-injector 70 mg (Aimovig Autoinjector) methocarbamol 500 mg tablet 250 - 500 mg PO Q8H PRN muscle 08/17/24 10/01/24 11:00 History spasm 500 mg cholecalciferol (vitamin D3) 25 50 mcg PO DAILY 10/22/24 10/22/24 10:00 History mcg (1,000 unit) capsule 50 mcg citalopram 40 mg tablet (Celexa) 40 mg PO DAILY 10/22/24 Unknown History topiramate 200 mg tablet 200 mg PO BID 10/22/24 10/22/24 11:00 History 200 mg Allergy/AdvReac Type Severity Reaction Status Date / Time acetaminophen (From [place]) Allergy Itching Verified 10/22/24 20:55 hydrocodone (From [place]) Allergy Itching Verified 10/22/24 20:55 oxycodone (From Percocet) AdvReac Intermediate Itching Verified 10/22/24 20:55 cephalexin monohydrate (From AdvReac WEAKNESS, Verified 10/22/24 20:55 Keflex) MUSCLE ACHES Family History Mother Heart disease CVA (cerebral vascular accident) Diabetes Father No problems noted. Surgical History S/P cervical spinal fusion History of toe surgery History of carpal tunnel release Social History household members: other details: Lives in her home with her 3 children, youngest 9. Smoking Status: Current every day smoker tobacco type: cigarettes, e-cigarettes and smokeless tobacco alcohol intake: never substance use type: does not use ROS Constitutional Constitutional: Denies anorexia, change in weight, chills, fatigue, fever(s), malaise, night sweats, weakness or other Eyes Eyes: Denies blurry vision, change in eye color, change in vision, discharge from eye(s), double vision, erythema, eye pain, loss of vision or other ENT HEENT: Denies abnormal hearing, dysphagia, ear pain, epistaxis, headache(s), hearing loss, nasal congestion, nasal discharge, post nasal drip, sinus pressure, sore throat or other Cardiovascular Cardiovascular: Denies chest pain, claudication, dyspnea on exertion, edema, lightheadedness, orthopnea, palpitations, paroxysmal nocturnal dyspnea, rapid heart rate, syncope or other Respiratory/Chest Respiratory/Chest: Denies cough, dyspnea, excessive phlegm production, hemoptysis, productive cough, shortness of breath at rest, shortness of breath with exertion, wheezing or other Gastrointestinal Gastrointestinal: Denies abdominal pain, coffee ground emesis, constipation, diarrhea, dyspepsia, hematemesis, hematochezia, loose stools, melena, nausea, vomiting or other Genitourinary Genitourinary: Denies burning urination, difficulty urinating, dysuria, hematuria, nocturia, urinary frequency, urinary hesitancy, urinary incontinence, urinary urgency or other Musculoskeletal Musculoskeletal: Reports back pain and neck pain; Denies arthralgias, joint pain, joint stiffness, joint swelling, myalgias or other Neurologic Neurologic: Reports focal weakness, headache(s) and paresthesias; Denies abnormal gait, abnormal speech, confusion, disequilibrium, dizziness, numbness, seizure-like activity, seizures, syncope, tingling, tremor(s) or other Psychiatric Psychiatric: Reports anxiety and depression; Denies homicidal ideation, suicidal ideation or other Endocrine Endocrinology: Denies change in body appearance, cold intolerance, excessive sweating, heat intolerance, polydipsia, polyuria or other Hematologic/Lymphatic Hematologic/Lymphatic: Denies anemia, easy bleeding, easy bruising, lymphadenopathy or other Allergic/Immunologic Allergic/Immunologic: Denies rhinitis, hives, eczemia, asthma or other Vital Signs Vital Signs Vital Signs: 10/22/24 20:55 10/22/24 21:02 10/22/24 21:15 Temperature 98.2 F Temperature Source Oral Pulse Rate 74 Respiratory Rate 14 Respiratory Pattern Normal Blood Pressure 133/82 H Blood Pressure Mean 99 Pulse Ox 99 Oxygen Delivery Method Room Air Room Air 10/22/24 21:30 Temperature Temperature Source Pulse Rate 66 Respiratory Rate 15 Respiratory Pattern Blood Pressure 124/87 H Blood Pressure Mean 99 Pulse Ox 100 Oxygen Delivery Method Room Air Weight Weight: 92.9 kg Body Mass Index (BMI) 37.4 Physical Exam Const alert, oriented x3, no apparent distress and well nourished; Negative for average body habitus Constitutional Narrative: Obese, middle-aged, white female, lying in bed, multiple family members at bedside, patient appears comfortable and nontoxic General Appearance: cooperative HEENT normocephalic, head/scalp atraumatic, hearing grossly normal bilaterally and moist oral mucous membranes HEENT Narrative: Mallampati 3, no thrush Eyes conjunctivae normal Eyes Narrative: No scleral icterus Neck supple and no carotid bruits Neck Narrative: Trachea midline Resp normal respiratory effort, no retractions, no use of accessory muscles and clear to auscultation bilaterally Auscultation: Negative for rales, rhonchi or wheezes Cardio regular rate, regular rhythm, S1 normal heart sound, S2 normal heart sound, no murmurs, no rub, no gallops and no clicks GI normal to inspection, nondistended, normoactive bowel sounds, soft to palpation and non-tender Extremity no clubbing, cyanosis or edema Extremity Narrative: Pedal and radial pulses are 2+ Neuro oriented x3, CN's II-XII intact bilaterally, moves all extremities and no focal motor deficits Speech: speech normal Psych Psych Narrative: Affect is slightly flat, eye contact is good patient answers questions appropriately Results Lab / Micro Data 10/22/24 20:48 10/22/24 20:48 Labs: Laboratory Results - last 24 hr 10/22/24 20:48: WBC 6.4, RBC 3.77 L, Hgb 11.9 L, Hct 34.9 L, MCV 92.6, MCH 31.6, MCHC 34.1, RDW Std Deviation 48.1 H, RDW Coeff of Sharmin 14.1, Plt Count 188, MPV 10.5, Immature Gran % (Auto) 0.200, Neut % (Auto) 44.7 L, Lymph % (Auto) 43.7 H, [place] % (Auto) 8.6, Eos % (Auto) 2.2, Baso % (Auto) 0.6, Absolute Neuts (auto) 2.9, Absolute Lymphs (auto) 2.80, Nucleated RBC % 0, PT 14.3, INR 1.1, APTT 30.8 Imaging Radiology Impression Brain CT 10/22/24 21:10 IMPRESSION: No acute intracranial abnormality. Reading Location: [facility] Assessment & Plan Assessment/Plan (1) Left leg weakness: (2) Expressive aphasia: (3) Headache: (4) Anemia: PLAN: Plan Left leg weakness/expressive aphasia/right arm paresthesias - Highly suspect this is complex migraine as she has previously been diagnosed - Has not had her injectable migraine treatment as she is awaiting pre-CERT - Did have headache on presentation that was treated - Per neurology's recommendation will be admitted for stroke workup - Check MRI with and without contrast due to symptoms not being consistent with focal neurological deficit that could be explained by 1 lesion to rule out other possible etiologies - Check echocardiogram - Aspirin 81 mg daily - Atorvastatin 80 mg daily -NIH per stroke order set - Neurology consultation Migraine headache -History of previously diagnosed complex migraine - Treated in the emergency department for migraine - Patient does have history of chronic migraines and is currently awaiting pre-CERT for her injectable medication - Neurology consultation is pending -On Aimovig for Migraines at baseline Mild anemia - No further workup at this time Asthma/seasonal allergies - Continue home inhalers - As needed albuterol - Continue Singulair -Continue cetirizine - Continue nasal spray History of factor V Leiden/VTE - Continue home Eliquis Bipolar disorder - Continue citalopram - Continue as needed Haldol next-continue Lamictal - Continue Topamax Tobacco abuse - Recommend cessation - Currently smokes about three quarters of a pack daily - Nicotine patch 14 mcg available Obesity -BMI 35.5 -Recommend weight loss-complicates treatment, prognosis, outcomes DVT prophylaxis - Lovenox 40 subcu daily CODE STATUS - Full code verified Charges/Coding Visit Charges Inpatient E&M: 17631 Init Hosp L2
[2024-10-22 21:53] LABS: Anion Gap 11 (5-15); BUN 12 mg/dL (4-19); BUN/Creat Ratio 12.1 RATIO (10-20); Calcium,Total 9.3 mg/dL (7.6-11.0); Carbon Dioxide 18.2 mmol/L (21.0-32.0); Chloride 110 mmol/L (98-108); Creatinine, Serum 0.97 mg/dL (0.70-1.20); EST Glomerular Filtration Rate 78 (>60); Estimated Creatinine Clearance 84.27 ml/min (50-250); Glucose 79 mg/dL (70-99); Potassium 3.4 mmol/L (3.3-5.1); Sodium Level 139 mmol/L (133-145); Troponin T High Sensitivity 7 ng/L (<=14)
--- NOTE | 2024-10-22 21:59 | ECHOD_ITS ---
Reason For Study Reason For Study: TIA/STROKE Procedure This was a 2D Doppler, Color Flow transthoracic echocardiogram. Exam performed portable in patient room. Left Ventricle Normal LV size. Left ventricular systolic function is normal. The left ventricular ejection fraction is 60 %. No regional wall motion abnormalities noted. Right Ventricle Normal RV size. Normal systolic function. Atria Normal left atrium. Normal right atrium. Mitral Valve Normal mitral valve. Tricuspid Valve Normal tricuspid valve. Aortic Valve Trisinus/trileaflet aortic valve. Pulmonic Valve Normal pulmonic valve. Great Vessels Normal aortic root. The pulmonary artery is normal size. Inferior vena cava collapse with respiration. Pericardium/Pleural No pericardial effusion. MMode/2D Measurements & Calculations LVIDd: 4.7 cm IVSd: 0.92 cm Ao root diam: 2.7 cm LVIDs: 3.2 cm LVPWd: 1.0 cm RVDd: 3.7 cm FS: 32.6 % LAV(MOD-bp): 42.1 ml LVAd ap4: 29.8 cm2 SV(MOD-sp4): 55.9 ml LAV(MOD-bp) Indexed: 21.8 ml/m2 LVLd ap4: 7.9 cm SI(MOD-sp4): 29.0 ml/m2 LAV(MOD-sp2): 39.5 ml EDV(MOD-sp4): 94.6 ml LAV(MOD-sp4): 44.4 ml EDV(sp4-el): 95.7 ml LVAs ap4: 16.8 cm2 LVLs ap4: 6.2 cm ESV(MOD-sp4): 38.6 ml ESV(sp4-el): 38.7 ml EF(MOD-sp4): 59.1 % EF(sp4-el): 59.5 % SV(sp4-el): 57.0 ml LA A4 area: 17.3 cm2 LA dimension(2D): 3.0 cm RA A4 area: 15.8 cm2 TAPSE: 2.3 cm Time Measurements MV dec time: 0.20 sec Doppler Measurements & Calculations MV E max speedy: 87.6 cm/sec Lat Peak E' Speedy: 18.3 cm/sec Med Peak E' Speedy: 13.0 cm/sec MV A max speedy: 66.5 cm/sec E/E' lat: 4.8 E/E' med: 6.7 MV E/A: 1.3 Ao V2 max: 134.5 cm/sec LV V1 max: 111.0 cm/sec PA V2 max: 82.9 cm/sec Ao max P.2 mmHg LV V1 max P.9 mmHg TR max speedy: 205.7 cm/sec TR max P.9 mmHg ECHO/Echo Complete Interpretation Summary Normal LV size. Left ventricular systolic function is normal. The left ventricular ejection fraction is 60 %. Structurally normal valves. Ordering Physician: Farhana Harden Performed By: Ilda Frank RDCS
[2024-10-22 22:00] VITALS: BP 123/81; PULSE 67; RESP 15; O2SAT 100
[2024-10-22 22:00] LABS: Bedside Glucose 88 mg/dL (74-106)
[2024-10-22 22:02] LABS: Atypical Lymphocyte 2+ %; Differential Comment SCANNED
--- NOTE | 2024-10-22 22:04 | ED.RN ---
Pt able to text on phone, ambulate to bathroom and converse with visitors in the room without difficulty.
[2024-10-22] MEDS: Metoclopramide 10 MG/2 ML Vial 5 MG IV (22:06)
[2024-10-22] MEDS: DiphenhydrAMINE 50 MG/ML Syringe 25 MG IV (22:07)
[2024-10-22 22:35] VITALS: BMI 35.4
[2024-10-22 22:44] VITALS: BP 107/73; PULSE 63; RESP 15; TEMP 36.8; O2SAT 99
[2024-10-22 22:45] VITALS: PULSE 66
[2024-10-22 22:54] LABS: Hemoglobin A1c 5.1 % (<=5.6)
[2024-10-22] MEDS: Atorvastatin Calcium 80 MG Tablet PO (23:11)
[2024-10-22 23:40] LABS: Troponin T High Sens 2 HR < 6 ng/L (<=14)
[2024-10-23 01:36] LABS: Troponin T High Sens 4 HR < 6 ng/L (<=14)
[2024-10-23 02:39] VITALS: BP 102/69; PULSE 80; RESP 16; TEMP 37; O2SAT 98
[2024-10-23] MEDS: 0.9% Saline Lock 10 ML Syringe IV (02:46)
[2024-10-23 02:58] VITALS: BMI 35.4
[2024-10-23 03:00] VITALS: PULSE 79
[2024-10-23 05:40] LABS: Absolute Lymphocyte Count 3.27 X10^3/uL (0.83-4.51); Absolute Neutrophil Count 2.5 X10^3/uL (2.0-7.7); Basophil# 0.06 X10^3/uL; Basophil% 0.9 % (0-1); Eosinophil# 0.23 X10^3/uL; Eosinophils% 3.5 % (0-5); Hematocrit 34.5 % (37-47); Hemoglobin 11.5 g/dL (12.0-15.0); Lymphocyte # 3.27 X10^3/ul (0.83-4.51); Lymphocyte % 49.8 % (19-41); Mean Corp Hgb Conc 33.3 g/dL (32-36); Mean Corpuscular Hgb 31.5 pg (27.0-32.0); Mean Corpuscular Volume 94.5 fL (81-99); Mean Platelet Vol. 10.3 fl (6.2-12.0); Monocyte# 0.49 X10^3/uL; Monocyte% 7.5 % (0-10); NRBC Flagged by Analyzer 0 % (0-5); Neutrophil % 38.1 % (47-70); POSITIVE MORPHOLOGY YES; Platelet Count 182 K/mm3 (150-450); RBC Distribution Width CV 14.4 % (11.6-14.6); RBC Distribution Width SD 49.9 fl (35.1-43.9); Red Blood Count 3.65 M/mm3 (4.2-5.4); White Blood Count 6.6 K/mm3 (4.4-11.0)
[2024-10-23 05:51] LABS: Differential Indicated SCAN CRITERIA MET
[2024-10-23 05:52] VITALS: BMI 36.0
[2024-10-23 06:11] LABS: ALB/GLOB Ratio 1.4 RATIO (0.9-2.4); AST(SGOT) 19 U/L (<=31); Alanine Aminotransfer ALT/SGPT 14 U/L (<=34); Albumin, Serum 3.8 g/dL (3.5-5.0); Alkaline Phosphatase 47 U/L (35-104); Anion Gap 10 (5-15); BUN 14 mg/dL (4-19); BUN/Creat Ratio 15.2 RATIO (10-20); Calcium,Total 8.9 mg/dL (7.6-11.0); Carbon Dioxide 17.7 mmol/L (21.0-32.0); Chloride 115 mmol/L (98-108); Cholesterol 160 mg/dL (<=200); EST Glomerular Filtration Rate 84 (>60); Estimated Creatinine Clearance 88.93 ml/min (50-250); Globulin 2.8 g/dL (2.2-4.2); Glucose 107 mg/dL (70-99); High Density Lipoprotein 34 mg/dL; Low Density Lipoprotein Calc. 105 mg/dL; Magnesium 2.1 mg/dL (1.5-2.2); Phosphorus 3.7 mg/dL (2.7-4.5); Potassium 3.5 mmol/L (3.3-5.1); Protein, Total 6.5 g/dL (5.9-8.4); Sodium Level 143 mmol/L (133-145); Total Bilirubin 0.25 mg/dL (0.00-1.30); Triglycerides 106 mg/dL; Very Low Density Lipoprotein 21 mg/dL (5-40); cholesterol:hdl ratio screen 4.75
[2024-10-23 06:31] LABS: Atypical Lymphocyte 2+ %; Differential Comment SCANNED
[2024-10-23 06:40] VITALS: BP 110/66; PULSE 77; RESP 17; TEMP 36.7; O2SAT 99
[2024-10-23 07:37] VITALS: O2SAT 98
[2024-10-23] MEDS: Ibuprofen 400 MG Tablet 800 MG PO (07:58)
--- NOTE | 2024-10-23 08:24 | PCM.PN.HOSP ---
Reason for Visit Reason for Visit: Diagnoses Anemia, unspecified (10/22/24) Other symptoms and signs involving the musculoskeletal system (10/22/24) Aphasia (10/22/24) Headache, unspecified (10/22/24) Objective Data Objective Data Vital Signs: Vital Signs Temp Pulse Resp BP Pulse Ox O2 Del Method 98.0 F 77 17 110/66 99 Room Air 10/23/24 06:40 10/23/24 06:40 10/23/24 06:40 10/23/24 06:40 10/23/24 06:40 10/23/24 08:12 Oxygen Delivery Method Room Air Weight: 197 lb 1.492 oz Body Mass Index (BMI) 36.0 Lab / Micro Data 10/23/24 05:16 10/23/24 05:16 Labs: Laboratory Results - last 24 hr 10/22/24 20:48: WBC 6.4, RBC 3.77 L, Hgb 11.9 L, Hct 34.9 L, MCV 92.6, MCH 31.6, MCHC 34.1, RDW Std Deviation 48.1 H, RDW Coeff of Sharmin 14.1, Plt Count 188, MPV 10.5, Immature Gran % (Auto) 0.200, Neut % (Auto) 44.7 L, Lymph % (Auto) 43.7 H, [place] % (Auto) 8.6, Eos % (Auto) 2.2, Baso % (Auto) 0.6, Absolute Neuts (auto) 2.9, Absolute Lymphs (auto) 2.80, Nucleated RBC % 0, Differential Comment SCANNED, Atypical Lymphocytes 2+, PT 14.3, INR 1.1, APTT 30.8, Sodium 139, Potassium 3.4, Chloride 110 H, Carbon Dioxide 18.2 L, Anion Gap 11, BUN 12, Creatinine 0.97, Estim Creat Clear Calc 84.27, Est GFR (MDRD) Non-Af 78, BUN/Creatinine Ratio 12.1, Glucose 79, Hemoglobin A1c 5.1, Calcium 9.3, Troponin T High Sens 7 10/22/24 21:40: POC Glucose 88 10/22/24 22:53: Troponin T Hi Sens 2 Hr < 6 10/23/24 01:12: Troponin T Hi Sens 4Hr < 6 10/23/24 05:16: WBC 6.6, RBC 3.65 L, Hgb 11.5 L, Hct 34.5 L, MCV 94.5, MCH 31.5, MCHC 33.3, RDW Std Deviation 49.9 H, RDW Coeff of Sharmin 14.4, Plt Count 182, MPV 10.3, Immature Gran % (Auto) 0.200, Neut % (Auto) 38.1 L, Lymph % (Auto) 49.8 H, [place] % (Auto) 7.5, Eos % (Auto) 3.5, Baso % (Auto) 0.9, Absolute Neuts (auto) 2.5, Absolute Lymphs (auto) 3.27, Nucleated RBC % 0, Differential Comment SCANNED, Atypical Lymphocytes 2+, Sodium 143, Potassium 3.5, Chloride 115 H, Carbon Dioxide 17.7 L, Anion Gap 10, BUN 14, Creatinine 0.90, Estim Creat Clear Calc 88.93, Est GFR (MDRD) Non-Af 84, BUN/Creatinine Ratio 15.2, Glucose 107 H, Calcium 8.9, Phosphorus 3.7, Magnesium 2.1, Total Bilirubin 0.25, AST 19, ALT 14, Alkaline Phosphatase 47, Total Protein 6.5, Albumin 3.8, Globulin 2.8, Albumin/Globulin Ratio 1.4, Triglycerides 106, Cholesterol 160, LDL Cholesterol, Calc 105, VLDL Cholesterol 21, HDL Cholesterol 34 L, Cholesterol/HDL Ratio 4.75 Radiography Diagnostic Testing: Radiology Impression Brain CT 10/22/24 21:10 IMPRESSION: No acute intracranial abnormality. Reading Location: [facility] Head/Neck CTA 10/22/24 21:18 IMPRESSION: Patent anterior and posterior intracranial and extracranial circulation, without hemodynamically significant stenosis. Reading Location: [facility] Assessment & Plan Assessment/Plan (1) Left leg weakness: (2) Expressive aphasia: (3) Headache: (4) Anemia: PLAN: Plan 31-year-old female admitted with episode of decreased left leg strength/weakness, expressive aphasia, headache and generalized tiredness for about 1 week. On the day of admission, she felt the symptoms coming back and had difficulty finding words Left leg weakness/expressive aphasia/right arm paresthesias - Highly suspect this is complex migraine as she has previously been diagnosed - Has not had her injectable migraine treatment as she is awaiting pre-CERT - Did have headache on presentation that was treated - Per neurology's recommendation will be admitted for stroke workup - Check MRI with and without contrast due to symptoms not being consistent with focal neurological deficit that could be explained by 1 lesion to rule out other possible etiologies - Check echocardiogram - Aspirin 81 mg daily - Atorvastatin 80 mg daily -NIH per stroke order set - Neurology consultation Migraine headache -History of previously diagnosed complex migraine - Treated in the emergency department for migraine - Patient does have history of chronic migraines and is currently awaiting pre-CERT for her injectable medication - Neurology consultation is pending -On Aimovig for Migraines at baseline Mild anemia - No further workup at this time Asthma/seasonal allergies - Continue home inhalers - As needed albuterol - Continue Singulair -Continue cetirizine - Continue nasal spray History of factor V Leiden/VTE - Continue home Eliquis Bipolar disorder - Continue citalopram - Continue as needed Haldol next-continue Lamictal - Continue Topamax Tobacco abuse - Recommend cessation - Currently smokes about three quarters of a pack daily - Nicotine patch 14 mcg available Obesity -BMI 35.5 -Recommend weight loss-complicates treatment, prognosis, outcomes DVT prophylaxis - Lovenox 40 subcu daily CODE STATUS - Full code verified NIHSS NIHSS Nursing Documentation NIHSS Nursing Documentation: NIH Stroke Scale Start: 10/22/24 21:05 Freq: Status: Discharge Protocol: Activity Type Activity Date Activity User E-sign Co-sign Detail Recorded Client Recorded Date Recorded By Document 10/22/24 21:06 [facility] desktop 10/22/24 21:07 [facility] 10/22/24 21:06 NIH Stroke Scale [NIHSS] A score of 0 is normal or asymptomatic . Total possible score is 42. Inpatient: RN or Physician to activate a stroke alert for onset of new stroke symptoms or with NIHSS increase >/= 3 points. Following change in neurological status, NIHSS will be performed per physician order or more frequently PRN. -1a. Level of Consciousness 0 - Alert; keenly responsive -1b. LOC Questions 0 - Answers BOTH questions correctly -1c. LOC Commands 0 - Performs BOTH tasks correctly -2. Best Gaze 0 - Normal -3. Visual 0 - No visual loss -4. Facial Palsy 0 - Normal symmetrical movements -5a. Left Arm 0 - No drift; arm holds 90 ( or 45) degrees for full 10 seconds -5b. Right Arm 0 - No drift; arm holds 90 ( or 45) degrees for full 10 seconds -6a. Left Leg 1 - Drift; leg falls by the end of 5- seconds, but does not hit bed -6b. Right Leg 0 - No drift; leg holds 30- degree position for full 5 seconds -7. Limb Ataxia 0 - Absent -8. Sensory 0 - Normal; no sensory loss -9. Best Language 0 - No aphasia; normal -10. Dysarthria 0 - Normal -11. Extinction and Inattention 0 - No abnormality -Total 1 Query Text:A score of 0 is normal or asymptomatic. Total possible score is 42 . ED: Notify Physician for NIHSS increase by > / = 3 points. Inpatient: RN or Physician to activate a stroke alert for NIHSS increase of > / = 3 points. NIHSS: Ischemic Stroke/TIA Start: 10/22/24 22:35 Text: For PCU Patients: NIH and Neuro Check every 4 Status: Active hours, PRN and with change in RN caregiver. Freq: [id number] Protocol: Activity Type Activity Date Activity User E-sign Co-sign Detail Recorded Client Recorded Date Recorded By Document 10/23/24 06:40 [id number] 10/23/24 06:43 RM 10/23/24 06:40 -1a. Level of Consciousness 0 - Alert; keenly responsive -1b. LOC Questions 0 - Answers BOTH questions correctly -1c. LOC Commands 0 - Performs BOTH tasks correctly -2. Best Gaze 0 - Normal -3. Visual 0 - No visual loss -4. Facial Palsy 0 - Normal symmetrical movements -5a. Left Arm 0 - No drift; arm holds 90 ( or 45) degrees for full 10 seconds -5b. Right Arm 0 - No drift; arm holds 90 ( or 45) degrees for full 10 seconds -6a. Left Leg 1 - Drift; leg falls by the end of 5- seconds, but does not hit bed -6b. Right Leg 0 - No drift; leg holds 30- degree position for full 5 seconds -7. Limb Ataxia 0 - Absent -8. Sensory 0 - Normal; no sensory loss -9. Best Language 0 - No aphasia; normal -10. Dysarthria 0 - Normal -11. Extinction and Inattention 0 - No abnormality -Total 1 Query Text:A score of 0 is normal or asymptomatic. Total possible score is 42 . ED: Notify Physician for NIHSS increase by > / = 3 points. Inpatient: RN or Physician to activate a stroke alert for NIHSS increase of > / = 3 points. Coma Scale [Assess] -Eye Opening Spontaneous -Motor Obeys Commands -Verbal Oriented [Total] -Coma Scale Total 15
--- NOTE | 2024-10-23 09:00 | MRI_ITS ---
PROCEDURE: BRAIN W/WO CONTRAST 10/23/2024 REASON FOR EXAM: L LEG WEAKNESS TECHNIQUE: Routine brain MRI without and with intravenous contrast. Multiplanar and multisequence images were obtained. CONTRAST: Clariscan VOLUME: 19 mL IV COMPARISON: Head CT of 10/22/2024. FINDINGS: Brain: Multiple bilateral cerebral white matter changes are seen, some with radial orientation, concerning for presence of demyelinating disease, in a patient of this age. No intracranial mass or mass effect is seen. No extra-axial fluid collection is noted. No orbital pathology is identified. Following intravenous contrast administration, no area of abnormal enhancement is seen. Diffusion: No area of diffusion restriction is seen. Ventricles: Normal. Major Intracranial Vessels: No abnormality identified Sinuses: Clear. Mastoids: Clear. MRI/Brain W/WO Contrast IMPRESSION: Bilateral cerebral white matter changes, some with radial orientation, concerni ng for possible demyelinating disease in a patient of this age. Reading Location: [place] [id number]
[2024-10-23 10:20] VITALS: BP 123/72; PULSE 79; RESP 18; TEMP 36.9; O2SAT 99
[2024-10-23] MEDS: Fluticasone 0.05% 1 SPRAY NASAL.SRY 2 SPRAY NASAL (10:24)
[2024-10-23] MEDS: APIXABAN 5 MG TABLET PO (10:25)
[2024-10-23] MEDS: lamoTRIgine 100 MG Tablet 200 MG PO (10:25)
[2024-10-23] MEDS: Topiramate 200 MG Tablet PO (10:25)
[2024-10-23] MEDS: Aspirin 81 MG TAB.CHEW PO (10:25)
[2024-10-23] MEDS: Citalopram 40 MG TABLET PO (10:25)
[2024-10-23] MEDS: Loratadine 10 MG Tablet PO (10:25)
[2024-10-23] MEDS: Cholecalciferol (VIT D3) 25 MCG TABLET (1,000 UNITS) 50 MCG PO (10:25)
[2024-10-23 13:52] VITALS: BMI 36.0
--- NOTE | 2024-10-23 15:29 | PCM.DC ---
Discharge Instructions Diet Discharge Diet: 2000 mg Sodium Diet DC O2, CPAP, BIPAP needs Home O2 Discharge instructions: No Dressing / Incision Discharge Activity: Return to Normal Activity Weight Bearing Status: Weight bearing as tolerated Dressing / Incision Call your doctor if you observe: Fever of 101 or Higher, Coldness, Increased Pain, Numbness or Tingling, Change in Color, Inability to urinate, Inability to have a bowel movement, Shortness of breath, Dizziness, Fainting spells, Swelling in the ankles, Chest pain, Prolonged hiccupping, Increased palpitations (irregular heartbeat) and Calf discomfort Follow Up Care When: IN 2 WEEKS Test Results: Test results from this visit will be discussed in further detail at your follow-up appointment, if applicable. Discharge Plan Admission Admit Date/Time: 10/22/24 21:51 Primary Reason for Your Visit: Atypical migraine. Stroke ruled out Attending Provider: Taye Delvalle Primary Care Provider: Care Physician,No Primary Consulting Providers: Farhana Harden Instructions Additional Instructions / Restrictions: Patient follows on neurologist in [place]. She had MRI with and without contrast short while ago. Advised to follow-up with neurologist with a new MRI. She has chronic white matter changes in brain MRI and she said she had similar findings in the previous MRI Discharge Orders/Prescriptions Prescriptions: New nicotine 14 mg/24 hr Patch 24 Hour 14 mg transdermal DAILY Qty: 28 0RF Continued acetaminophen [Tylenol] 325 mg capsule 325 mg PO ONCE PRN (Reason: Pain 1-10 Or Fever) Aimovig Autoinjector 70 mg/mL auto-injector 70 mg subcut .monthly Rx Instructions: the 8th of each month medroxyprogesterone 150 MG/ML syringe 150 mg IM .[id number] citalopram 40 MG tablet 40 mg PO DAILY haloperidol 5 MG tablet 2.5 mg PO TID PRN (Reason: Anxiety) apixaban 5 MG tablet 5 mg PO BID lidocaine [Lidoderm] 5 % adhesive patch,medicated 1 patch topical DAILY Qty: 6 0RF Rx Instructions: leave on most painful area for up to 12 hrs lamotrigine 200 mg tablet 200 mg PO DAILY Patient Comments: TAKE 1 TABLET BY MOUTH ONCE DAILY IN THE MORNING cetirizine 10 mg tablet 10 mg PO .DAILY AM famotidine 40 mg tablet 40 mg PO Q12H Patient Comments: PT TAKES AT DINNER TIME AND THEN ONE AT BEDTIME triamcinolone acetonide 55 mcg aerosol,spray 2 spray INTRANASAL DAILY Patient Comments: USE 2 SPRAY(S) INTRANASALLY ONCE DAILY montelukast 10 mg tablet 10 mg PO QHS Patient Comments: TAKE 1 TABLET BY MOUTH ONCE DAILY albuterol sulfate 90 mcg/actuation HFA aerosol inhaler 2 puff inhalation Q6H PRN (Reason: CONGESTION/ALLERGIES) methocarbamol 500 mg tablet 250 - 500 mg PO Q8H PRN (Reason: muscle spasm) cholecalciferol (vitamin D3) 25 mcg (1,000 unit) capsule 50 mcg PO DAILY topiramate 200 mg tablet 200 mg PO BID citalopram [Celexa] 40 mg tablet 40 mg PO DAILY Nurtec ODT 75 mg tablet,disintegrating 75 mg PO DAILY PRN Referrals / Follow Up: Care Physician,No Primary [Primary Care Provider] - Disposition Disposition (needs filled in before D/C Order can be placed): Home, Self Care
--- NOTE | 2024-10-23 15:29 | CASEMGMT ---
SW did not complete a PHQ9 as patient did not have a Stroke or TIA. Amira CAMP
--- NOTE | 2024-10-23 15:35 | DS.PCM_ITS ---
Providers Date of Admission: 10/22/24 Date of Discharge: 10/23/24 Primary Care Physician: Marixa Primary Care Phys Consultations 10/22/24 22:35 Consult: Tele-Neurology Routine Consulting Provider: [facility] Reason for Consult: Acute Ischemic Stroke/TIA EMERGENT Consult: No MD Notified: No Date Notified: 10/22/24 Time Notified: 21:55 Nursing Unit Staff Notify [facility] of Tele-Neurology Consult: Yes Reason For Visit: L LEG WEAKNESS/QUINTANA/EXPRESSIVE APHASIA Diagnosis Discharge Diagnosis (1) Left leg weakness: Status: Acute Code(s): R29.898 - Other symptoms and signs involving the musculoskeletal system (2) Expressive aphasia: Status: Acute Code(s): R47.01 - Aphasia (3) Headache: Status: Acute Code(s): R51.9 - Headache, unspecified (4) Anemia: Status: Acute Code(s): D64.9 - Anemia, unspecified Plan 31-year-old female admitted with episode of decreased left leg strength/weakness, expressive aphasia, headache and generalized tiredness for about 1 week. On the day of admission, she felt the symptoms coming back and had difficulty finding words Left leg weakness/expressive aphasia/right arm paresthesias, headache probably atypical presentation of migraine: Patient is being admitted in PCU. CT head does not show acute infarct or hemorrhage mass effect or herniation. CTA head and neck reported patent anterior and posterior intracranial circulation patient without hemodynamically significant stenosis. MRI brain report bilateral cerebral white matter changes, some with radial orientation, concerning for possible demyelinating disease in a patient of this age. NIH stroke scale 0. After discussion with the patient states that she follows neurologist in [place] and she had MRI brain with and without contrast short while ago and it showed significant white matter changes. Since this is not new finding and given option of follow-up [facility] CTA and brain MRI report given and if needed it can be uploaded to the PACS Acute stroke ruled out. No intracranial mass. 2D echo reported normal EF 60% with structurally normal valves. Fasting lipid profile shows low HDL advised to follow with PCP Chronic migraine headache -History of previously diagnosed complex migraine - Treated in the emergency department for migraine - Patient does have history of chronic migraines and is currently awaiting pre- CERT for her injectable medication. -On Aimovig for Migraines at baseline. She follows her own neurologist in [place] Mild chronic anemia: No acute issues History of factor V Leiden/VTE - Continue home Eliquis Bipolar disorder - Continue citalopram - Continue as needed Haldol next-continue Lamictal - Continue Topamax Tobacco abuse - Recommend cessation - Currently smokes about three quarters of a pack daily - Nicotine patch 14 mcg available Obesity -BMI 35.5 -Recommend weight loss-complicates treatment, prognosis, outcomes DVT prophylaxis - Lovenox 40 milligram subcu daily CODE STATUS - Full code verified Patient would like to go home and follow-up with her own neurologist 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 Discharge medication reconciliation done. Discharge follow-up instructions completed. Discharge process discussed with the patient and all questions were answered to patient's satisfaction. Follow with PCP in 1 to 2 weeks Total time spent, exact 35 minutes on discharge meds reconciliation, examination, coordination of care with nurses and ancillary staff, review of imaging and blood test and discussion with the patient on follow-up instructions. . Medications at Discharge Home Medications medroxyprogesterone 150 mg/mL intramuscular syringe 150 mg IM .[id number] control 01/30/15 citalopram 40 mg tablet 40 mg PO DAILY mental health 04/04/19 haloperidol 5 mg tablet 2.5 mg PO TID PRN Anxiety 04/04/19 apixaban 5 mg tablet 5 mg PO BID blood thinner 06/03/20 acetaminophen 325 mg capsule (Tylenol) 325 mg PO ONCE PRN Pain 1-10 Or Fever 08/26/20 lidocaine 5 % topical patch (Lidoderm) 1 patch topical DAILY pain #6 ea 04/13/21 albuterol sulfate 90 mcg/actuation aerosol inhaler 2 puff inhalation Q6H PRN CONGESTION/ALLERGIES 03/15/23 cetirizine 10 mg tablet 10 mg PO .DAILY AM allergies 03/15/23 famotidine 40 mg tablet 40 mg PO Q12H reflux 03/15/23 lamotrigine 200 mg tablet 200 mg PO DAILY bipolar 03/15/23 montelukast 10 mg tablet 10 mg PO QHS allergies 03/15/23 triamcinolone acetonide 55 mcg nasal spray aerosol 2 spray intranasal DAILY 03/15/23 rimegepant 75 mg disintegrating tablet (Nurtec ODT) 75 mg PO DAILY PRN MIGRAINE 08/30/23 erenumab-aooe 70 mg/mL subcutaneous auto-injector (Aimovig Autoinjector) 70 mg subcut .monthly 10/31/23 methocarbamol 500 mg tablet 250 - 500 mg PO Q8H PRN muscle spasm 08/17/24 cholecalciferol (vitamin D3) 25 mcg (1,000 unit) capsule 50 mcg PO DAILY 10/22/24 topiramate 200 mg tablet 200 mg PO BID 10/22/24 nicotine 14 mg/24 hr daily transdermal patch 14 mg transdermal DAILY #28 ea 10/23/24 Physical Exam Narrative Seen and examined Her headache is much improved. She usually gets right-sided migraine pain mainly retro-orbital pain. It got better by the afternoon. No acute change in vision or color flashes. No focal weakness numbness or tingling. Physical exam General: Alert, Oriented x3, Cooperative HEENT: Atraumatic, PERRLA, EOMI, Normocephalic. Oral: No Gingival or Mucosal Lesions/ Ulcerations Neck: Supple, No JVD, Negative Carotid Bruits Chest wall/Lungs: Air entry diminished in bilateral lung bases. No crepitation/rhonchi Cardiovascular: Regular rate and rhythm, Normal S1,S2, No M/G/R Abdomen: Bowel Sounds Present, Soft, Non Tender, Non-Distended : No dysuria. No renal angle tenderness. No suprapubic tenderness. Extremities: No edema, Capillary Refill Less than 3 Seconds Skin: Mild bruise on the left knee, recent right Musculoskeletal: No Tenderness to Palpation of Joints or Extremities Neurological: Cranial nerves II-XII grossly intact, DTR 2+/4. No acute focal neurological deficit. Psych/Mental Status: Normal Affect, Appropriate. Weight / BMI Weight Weight: 197 lb 1.492 oz Body Mass Index (BMI) 36.0 ABG / Lab / Microbiology Data 10/23/24 05:16 10/23/24 05:16 Laboratory: Laboratory Results - last 24 hr 10/22/24 20:48: WBC 6.4, RBC 3.77 L, Hgb 11.9 L, Hct 34.9 L, MCV 92.6, MCH 31.6, MCHC 34.1, RDW Std Deviation 48.1 H, RDW Coeff of Sharmin 14.1, Plt Count 188, MPV 10.5, Immature Gran % (Auto) 0.200, Neut % (Auto) 44.7 L, Lymph % (Auto) 43.7 H, [place] % (Auto) 8.6, Eos % (Auto) 2.2, Baso % (Auto) 0.6, Absolute Neuts (auto) 2.9, Absolute Lymphs (auto) 2.80, Nucleated RBC % 0, Differential Comment SCANNED, Atypical Lymphocytes 2+, PT 14.3, INR 1.1, APTT 30.8, Sodium 139, Potassium 3.4, Chloride 110 H, Carbon Dioxide 18.2 L, Anion Gap 11, BUN 12, Creatinine 0.97, Estim Creat Clear Calc 84.27, Est GFR (MDRD) Non-Af 78, BUN/Creatinine Ratio 12.1, Glucose 79, Hemoglobin A1c 5.1, Calcium 9.3, Troponin T High Sens 7 10/22/24 21:40: POC Glucose 88 10/22/24 22:53: Troponin T Hi Sens 2 Hr < 6 10/23/24 01:12: Troponin T Hi Sens 4Hr < 6 10/23/24 05:16: WBC 6.6, RBC 3.65 L, Hgb 11.5 L, Hct 34.5 L, MCV 94.5, MCH 31.5, MCHC 33.3, RDW Std Deviation 49.9 H, RDW Coeff of Sharmin 14.4, Plt Count 182, MPV 10.3, Immature Gran % (Auto) 0.200, Neut % (Auto) 38.1 L, Lymph % (Auto) 49.8 H, [place] % (Auto) 7.5, Eos % (Auto) 3.5, Baso % (Auto) 0.9, Absolute Neuts (auto) 2.5, Absolute Lymphs (auto) 3.27, Nucleated RBC % 0, Differential Comment SCANNED, Atypical Lymphocytes 2+, Sodium 143, Potassium 3.5, Chloride 115 H, C arbon Dioxide 17.7 L, Anion Gap 10, BUN 14, Creatinine 0.90, Estim Creat Clear Calc 88.93, Est GFR (MDRD) Non-Af 84, BUN/Creatinine Ratio 15.2, Glucose 107 H, Calcium 8.9, Phosphorus 3.7, Magnesium 2.1, Total Bilirubin 0.25, AST 19, ALT 14, Alkaline Phosphatase 47, Total Protein 6.5, Albumin 3.8, Globulin 2.8, Albumin/Globulin Ratio 1.4, Triglycerides 106, Cholesterol 160, LDL Cholesterol, Calc 105, VLDL Cholesterol 21, HDL Cholesterol 34 L, Cholesterol/HDL Ratio 4.75 Radiography Diagnostic Testing: Radiology Impression Brain CT 10/22/24 21:10 IMPRESSION: No acute intracranial abnormality. Reading Location: [facility] Head/Neck CTA 10/22/24 21:18 IMPRESSION: Patent anterior and posterior intracranial and extracranial circulation, without hemodynamically significant stenosis. Reading Location: [facility] Echocardiogram 10/22/24 21:59 Interpretation Summary Normal LV size. Left ventricular systolic function is normal. The left ventricular ejection fraction is 60 %. Structurally normal valves. Ordering Physician: Farhana Harden Performed By: Ilda Frank RDCS Brain MRI 10/23/24 09:00 IMPRESSION: Bilateral cerebral white matter changes, some with radial orientation, concerning for possible demyelinating disease in a patient of this age. Reading Location: [facility] D/C Instructions Discharge Diet: 2000 mg Sodium Diet Weight Bearing Status: Weight bearing as tolerated Call your doctor if you observe: Fever of 101 or Higher, Coldness, Increased Pain, Numbness or Tingling, Change in Color, Inability to urinate, Inability to have a bowel movement, Shortness of breath, Dizziness, Fainting spells, Swelling in the ankles, Chest pain, Prolonged hiccupping, Increased palpitations (irregular heartbeat) and Calf discomfort DC O2, CPAP, BIPAP Needs Home O2 Discharge instructions: No When: IN 2 WEEKS Meaningful Use Info Meaningful Use Meaningful Use Diagnoses (Choose all that apply): None applicable Ischemic Stroke Statin Dosing Therapy Reference: STATIN DOSE THERAPY REFERENCE: * Patients > 75 years receive moderate or high dose statin therapy. * Patients 75 years or YOUNGER should receive HIGH intensity statin dose unless contraindicated. You will be required to document reason for non-treatment if statin daily dose does not meet guidelines. HIGH DOSE STATIN THERAPY DAILY Atorvastatin > than or = to 40 mg Rosuvastatin > than or = to 20 mg Amlodipine + Atorvastatin > than or = to 2.5/40 mg Ezetimibe + Simvastatin 10/80 mg Simvastatin 80mg Discharge Plan Admission Admit Date/Time: 10/22/24 21:51 Primary Reason for Your Visit: Atypical migraine. Stroke ruled out Attending Provider: Taye Delvalle Primary Care Provider: Care Physician,No Primary Consulting Providers: Farhana Harden Instructions Additional Instructions / Restrictions: Patient follows on neurologist in [place]. She had MRI with and without contrast short while ago. Advised to follow-up with neurologist with a new MRI. She has chronic white matter changes in brain MRI and she said she had similar findings in the previous MRI Discharge Orders/Prescriptions Prescriptions: New nicotine 14 mg/24 hr Patch 24 Hour 14 mg transdermal DAILY Qty: 28 0RF Continued acetaminophen [Tylenol] 325 mg capsule 325 mg PO ONCE PRN (Reason: Pain 1-10 Or Fever) Aimovig Autoinjector 70 mg/mL auto-injector 70 mg subcut .monthly Rx Instructions: the 8th of each month medroxyprogesterone 150 MG/ML syringe 150 mg IM .[id number] citalopram 40 MG tablet 40 mg PO DAILY haloperidol 5 MG tablet 2.5 mg PO TID PRN (Reason: Anxiety) apixaban 5 MG tablet 5 mg PO BID lidocaine [Lidoderm] 5 % adhesive patch,medicated 1 patch topical DAILY Qty: 6 0RF Rx Instructions: leave on most painful area for up to 12 hrs lamotrigine 200 mg tablet 200 mg PO DAILY Patient Comments: TAKE 1 TABLET BY MOUTH ONCE DAILY IN THE MORNING cetirizine 10 mg tablet 10 mg PO .DAILY AM famotidine 40 mg tablet 40 mg PO Q12H Patient Comments: PT TAKES AT DINNER TIME AND THEN ONE AT BEDTIME triamcinolone acetonide 55 mcg aerosol,spray 2 spray INTRANASAL DAILY Patient Comments: USE 2 SPRAY(S) INTRANASALLY ONCE DAILY montelukast 10 mg tablet 10 mg PO QHS Patient Comments: TAKE 1 TABLET BY MOUTH ONCE DAILY albuterol sulfate 90 mcg/actuation HFA aerosol inhaler 2 puff inhalation Q6H PRN (Reason: CONGESTION/ALLERGIES) methocarbamol 500 mg tablet 250 - 500 mg PO Q8H PRN (Reason: muscle spasm) cholecalciferol (vitamin D3) 25 mcg (1,000 unit) capsule 50 mcg PO DAILY topiramate 200 mg tablet 200 mg PO BID citalopram [Celexa] 40 mg tablet 40 mg PO DAILY Nurtec ODT 75 mg tablet,disintegrating 75 mg PO DAILY PRN Referrals / Follow Up: Care Physician,No Primary [Primary Care Provider] - Disposition Disposition (needs filled in before D/C Order can be placed): Home, Self Care Charges/Coding Visit Charges Inpatient E&M: 36105 Disch Hosp >30min
[2024-10-23 15:40] VITALS: BP 105/73; PULSE 79; RESP 18; TEMP 36.7; O2SAT 100
--- NOTE | 2024-10-23 15:43 | CASEMGMT ---
Patient has order for discharge. RN CM in to discuss needs at discharge. Patient denies needs or help at discharge. PCP list provided to patient, patient voiced appreciation. Patient had no further questions or concerns.
--- NOTE | 2024-10-23 15:50 | PHA.DC_ITS ---
Pharmacy [facility] Service has performed discharge medication reconciliation and counseling for this patient. 1. NICOTINE 14MG PATCH 1 PATCH TD DAILY The patient's discharge medication list was reviewed for discrepancies and discrepancies were resolved. The patient was counseled on the following discharge medications and changes in medications for homegoing were reviewed. The Reason for Use, instructions for use, and potential side effects were reviewed for all new medications. The patient's questions regarding all of their medications were answered. The patient was able to verbally demonstrate an understanding of their discharge medications. Medications at Discharge Home Medications medroxyprogesterone 150 mg/mL intramuscular syringe 150 mg IM .[id number] control 01/30/15 citalopram 40 mg tablet 40 mg PO DAILY mental health 04/04/19 haloperidol 5 mg tablet 2.5 mg PO TID PRN Anxiety 04/04/19 apixaban 5 mg tablet 5 mg PO BID blood thinner 06/03/20 acetaminophen 325 mg capsule (Tylenol) 325 mg PO ONCE PRN Pain 1-10 Or Fever 08/26/20 lidocaine 5 % topical patch (Lidoderm) 1 patch topical DAILY pain #6 ea 04/13/21 albuterol sulfate 90 mcg/actuation aerosol inhaler 2 puff inhalation Q6H PRN CONGESTION/ALLERGIES 03/15/23 cetirizine 10 mg tablet 10 mg PO .DAILY AM allergies 03/15/23 famotidine 40 mg tablet 40 mg PO Q12H reflux 03/15/23 lamotrigine 200 mg tablet 200 mg PO DAILY bipolar 03/15/23 montelukast 10 mg tablet 10 mg PO QHS allergies 03/15/23 triamcinolone acetonide 55 mcg nasal spray aerosol 2 spray intranasal DAILY 03/15/23 rimegepant 75 mg disintegrating tablet (Nurtec ODT) 75 mg PO DAILY PRN MIGRAINE 08/30/23 erenumab-aooe 70 mg/mL subcutaneous auto-injector (Aimovig Autoinjector) 70 mg subcut .monthly 10/31/23 methocarbamol 500 mg tablet 250 - 500 mg PO Q8H PRN muscle spasm 08/17/24 cholecalciferol (vitamin D3) 25 mcg (1,000 unit) capsule 50 mcg PO DAILY 10/22/24 topiramate 200 mg tablet 200 mg PO BID 10/22/24 nicotine 14 mg/24 hr daily transdermal patch 14 mg transdermal DAILY #28 ea 10/23/24
== END 2024-10-23 15:34 | disposition home or self-care (01) ==
LOC: ED 21:53 → PCU 22:22
PROVIDERS: Admitting Provider Internal Medicine; Emergency Provider Emergency Medicine; Visit Provider Internal Medicine
DX: G43.709 Chronic migraine without aura, not intractable, without status migrainosus (principal); F31.9 Bipolar disorder, unspecified; R47.01 Aphasia; R47.81 Slurred speech; D64.9 Anemia, unspecified; R20.2 Paresthesia of skin; R29.898 Other symptoms and signs involving the musculoskeletal system; D68.51 Activated protein C resistance; J45.909 Unspecified asthma, uncomplicated; E66.9 Obesity, unspecified; Z68.35 Body mass index [BMI] 35.0-35.9, adult; F17.210 Nicotine dependence, cigarettes, uncomplicated; F17.220 Nicotine dependence, chewing tobacco, uncomplicated; F17.290 Nicotine dependence, other tobacco product, uncomplicated; Z79.01 Long term (current) use of anticoagulants; Z79.899 Other long term (current) drug therapy; Z86.73 Personal history of transient ischemic attack (TIA), and cerebral infarction without residual deficits
CPT/HCPCS: 36415; 70450; 70496; 70498; 70553; 80048; 80053; 80061; 82962; 83036; 83735; 84100; 84484; 85025; 85610; 85730; 92523; 93005; 93306; 94668; 96374; 96375; 97161; 97166; 99221; 99285; 99406; A9575; Q9967; A4216; G0378

== ENCOUNTER 2025-01-23 03:14 | Emergency (ER) | payer MEDICAID, SELFPAY ==
[2025-01-23 03:14] VITALS: BP 119/71; PULSE 74; RESP 18; TEMP 36.9; O2SAT 99; BMI 35.9
--- NOTE | 2025-01-23 03:27 | ED.VIS.LOWEX ---
HPI History of Present Illness HPI Narrative: Patient presents with muscle spasms in her right hip that became worse over the past 3 days. Patient states it came on gradually. Patient denies any trauma or injury. Patient states it has been constant over the past 3 days. Patient describes her pain as a spasm. Patient states it is over the posterior and lateral aspect of the right hip. Patient states nothing makes it worse and nothing makes it better. Patient states that sometimes it causes her right leg to become weak and give out. Patient denies any paresthesias. Patient denies any bowel or bladder changes. Patient denies any saddle anesthesia. Chief Complaint: Lower Extremity Injury Informant: patient Onset/Context/Timing Onset: Days (3) Context: Gradual Onset Timing: Continuous Quality of Pain: - (Spasm) Location: Right hip Worsened by: Nothing Relieved by: Nothing Associated Symptoms Associated Symptoms: Positive for Weakness (Intermittent); Negative for Parasthesia or Loss of Funtion PFSH PFS Medical History Anemia Lumbar pain with radiation down right leg Dental caries Brain TIA Dysarthria Chronic migraine Anxiety and depression History of venous thromboembolism Obesity Tobacco use History of nephrolithiasis Chronic neck and back pain Factor 5 Leiden mutation, heterozygous Home Medications ?Medication ?Instructions ?Recorded ?Last Taken ?Type medroxyprogesterone 150 mg/mL 150 mg IM .[id number] control 01/30/15 08/24/24 11:00 History intramuscular syringe 150 mg citalopram 40 mg tablet 40 mg PO DAILY mental health 04/04/19 10/22/24 10:00 History 40 mg haloperidol 5 mg tablet 2.5 mg PO TID PRN Anxiety 04/04/19 Unknown History apixaban 5 mg tablet 5 mg PO BID blood thinner 06/03/20 10/22/24 12:30 History 5 mg acetaminophen 325 mg capsule 325 mg PO ONCE PRN Pain 1-10 Or 08/26/20 Unknown History (Tylenol) Fever lidocaine 5 % topical patch 1 patch topical DAILY pain #6 ea 04/13/21 09/20/24 11:00 Rx (Lidoderm) 1 patch albuterol sulfate 90 mcg/actuation 2 puff inhalation Q6H PRN 03/15/23 Unknown History aerosol inhaler CONGESTION/ALLERGIES cetirizine 10 mg tablet 10 mg PO DAILY allergies 03/15/23 10/22/24 10:00 History 10 mg famotidine 40 mg tablet 40 mg PO Q12H reflux 03/15/23 10/21/24 23:00 History 40 mg lamotrigine 200 mg tablet 200 mg PO DAILY bipolar 03/15/23 10/22/24 11:00 History 200 mg montelukast 10 mg tablet 10 mg PO QHS allergies 03/15/23 10/21/24 22:00 History 10 mg triamcinolone acetonide 55 mcg 2 spray intranasal DAILY 03/15/23 10/18/24 11:00 History nasal spray aerosol 2 spray erenumab-aooe 70 mg/mL 70 mg subcut .monthly 10/31/23 09/17/24 10:00 History subcutaneous auto-injector 70 mg (Aimovig Autoinjector) cholecalciferol (vitamin D3) 25 50 mcg PO DAILY 10/22/24 10/22/24 10:00 History mcg (1,000 unit) capsule 50 mcg topiramate 200 mg tablet 200 mg PO BID 10/22/24 10/22/24 11:00 History 200 mg methocarbamol 500 mg tablet 250 - 500 mg (0.5 - 1 x 500 mg) PO 01/23/25 Unknown Rx Q8H PRN muscle spasm #20 tabs Allergy/AdvReac Type Severity Reaction Status Date / Time acetaminophen (From [place]) Allergy Itching Verified 01/23/25 03:15 hydrocodone (From [place]) Allergy Itching Verified 01/23/25 03:15 oxycodone (From Percoc[place]) AdvReac Intermediate Itching Verified 01/23/25 03:15 cephalexin monohydrate (From AdvReac WEAKNESS, Verified 01/23/25 03:15 Keflex) MUSCLE ACHES Family History Mother Heart disease CVA (cerebral vascular accident) Diabetes Father No problems noted. Surgical History S/P cervical spinal fusion History of toe surgery History of carpal tunnel release Social History household members: other details: Lives in her home with her 3 children, youngest 9. Smoking Status: Current every day smoker tobacco type: cigarettes, e-cigarettes and smokeless tobacco alcohol intake: never substance use type: does not use ROS ROS ED Constitutional Constitutional ED: Denies chills or fever(s) Eyes Eyes: Denies blurry vision or change in vision ENT ENT ED: Denies rhinorrhea or sore throat Cardiovascular Cardiovascular: Denies chest pain or palpitations Respiratory/Chest Respiratory/Chest: Denies cough or dyspnea Gastrointestinal Gastrointestinal: Denies nausea or vomiting Genitourinary Genitourinary ED: Denies dysuria or hematuria Musculoskeletal Musculoskeletal: Reports back pain; Denies neck pain Integumentary Denies abscess or rash Neurologic Neurologic: Denies headache(s) or weakness Allergic/Immunologic Allergic/Immunologic ED: Denies mouth swelling or urticaria EXAM Physical Exam Const Vital Signs: 01/23/25 03:14 Temperature 98.5 F Temperature Source Oral Pulse Rate 74 Respiratory Rate 18 Blood Pressure 119/71 Blood Pressure Mean 87 Pulse Ox 99 Oxygen Delivery Method Room Air Positive well nourished and well developed Constitutional Narrative: BMI is 35.9. General Appearance ED: well developed and NAD HEENT Reports moist mucous membranes Neck full ROM and supple Extremity Extremity Narrative: There is tenderness and spasm of the right piriformis area. There is no bony crepitance or step-off. There is no pain with internal and external rotation of the right lower extremity. There is no deformity noted. There is no tenderness over the sciatic notch or sacroiliac joint. There is no tenderness over the lumbosacral spine. Strength is 5/5 bilaterally in the lower extremities. There are no sensory deficits noted. Neuro oriented x3, CN's II-XII intact bilaterally, moves all extremities and no sensory deficits noted Sensorium / Orientation: alert Motor Exam: strength 5/5 throughout Psych mental status grossly normal MDM MDM MDM Narrative Medical decision making narrative: Patient was advised that this is most likely muscle strain. Patient was given injection of Norflex here. Patient was given a prescription for Norflex. Patient was instructed to use moist heat to the area. Patient was instructed to continue with Tylenol as needed for pain. Follow-up with her primary care physician in 5 to 7 days. Patient was instructed to return if worse in any way. Patient understood and was agreeable with the plan. All questions were answered. History & Record Review Additional record(s) reviewed:: Prior inpatient record, Prior outpatient record and Prior ED visit Discharge Plan Triage Chief Complaint: Lower Extremity Injury ED Provider: Ck Matias Dx/Rx/DC Orders Clinical Impression: Strain of right hip, Tobacco use Instructions: ED Hip Strain Prescriptions: Continued methocarbamol 500 mg tablet 250 - 500 mg PO Q8H PRN (Reason: muscle spasm) Qty: 20 0RF No Action acetaminophen [Tylenol] 325 mg capsule 325 mg PO ONCE PRN (Reason: Pain 1-10 Or Fever) Aimovig Autoinjector 70 mg/mL auto-injector 70 mg subcut .monthly Rx Instructions: the 8th of each month medroxyprogesterone 150 MG/ML syringe 150 mg IM .[id number] citalopram 40 MG tablet 40 mg PO DAILY haloperidol 5 MG tablet 2.5 mg PO TID PRN (Reason: Anxiety) apixaban 5 MG tablet 5 mg PO BID lidocaine [Lidoderm] 5 % adhesive patch,medicated 1 patch topical DAILY Qty: 6 0RF Rx Instructions: leave on most painful area for up to 12 hrs lamotrigine 200 mg tablet 200 mg PO DAILY Patient Comments: TAKE 1 TABLET BY MOUTH ONCE DAILY IN THE MORNING cetirizine 10 mg tablet 10 mg PO DAILY famotidine 40 mg tablet 40 mg PO Q12H Patient Comments: PT TAKES AT DINNER TIME AND THEN ONE AT BEDTIME triamcinolone acetonide 55 mcg aerosol,spray 2 spray INTRANASAL DAILY Patient Comments: USE 2 SPRAY(S) INTRANASALLY ONCE DAILY montelukast 10 mg tablet 10 mg PO QHS Patient Comments: TAKE 1 TABLET BY MOUTH ONCE DAILY albuterol sulfate 90 mcg/actuation HFA aerosol inhaler 2 puff inhalation Q6H PRN (Reason: CONGESTION/ALLERGIES) cholecalciferol (vitamin D3) 25 mcg (1,000 unit) capsule 50 mcg PO DAILY topiramate 200 mg tablet 200 mg PO BID Primary Care Provider: Haley Kunz Referrals: Haley Kunz PA-C [Primary Care Provider] - 5-7 Days Print Language: Portuguese Disposition Disposition: Home, Self Care
[2025-01-23] MEDS: Orphenadrine 60 MG/2 ML Ampul IM (03:54)
[2025-01-23 03:58] VITALS: BP 126/79; PULSE 70; RESP 18; TEMP 36.9; O2SAT 99
--- OUTSIDE RECORDS SUMMARY | 2025-01-23 04:06 | XMS RPT_ITS | CCD ---
Author Organization [facility] Care Team Providers Care Infrastructure Solutions Architect Name Role Phone Dr. Loretta Hermosillo Primary Care Provider Dr. Les Michel Referring Provider [phone] Dr. Les Michel Other Provider Dr. Randal Whitaker Attending Provider MARLENA PA-C, COLTON Primary Care Physician Unavailable Primary Care Provider UnavailNP. Neli De La Torre Primary Care Provider Dr. Jan Ruby Attending Provider Dr. Jeremy Gerard Emergency Provider [phone] Dr. Bridgett Ponce Admit Provider Dr. Bridgett Ponce Other Provider Dr. Lucina Barahona Attending Provider Unavailable Dr. Lucina Barahona Other Provider Unavailable NP. Neli Tripp Referring Provider ALONZO Spence Attending Provider [phone] JANET FERNANDEZ Referring Unavailable KENTON PA-C, COLTON Primary Care Unavailable LES MICHEL DO Attending Unavailable KENTON PA-C, COLTON Primary Care Unavailable LES MICHEL DO Attending Unavailable JAYDE OSEGUERA Consulting Unavaila ble KENTON PA-C, COLTON Primary Care Unavailable LES MICHEL DO Admitting Unavailable LES MICHEL DO Attending Unavailable NP. Neli Tripp Primary Care Provider [phone] ALONZO Gentile Attending Provider ISABEL Katznielle Attending Provider Ungerer, 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 Neli Primary Care Provider ALONZO Spence Attending Provider Ungerer, 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 Neli Referring Provider ALONZO Gentile Attending Provider Sterling, BOOKING MANAGERHermelindoC Katheryn Attending Provider Unavailable Primary Care Provider Unavailabl e Ungerer PLUCK SEPARATOR, Neli D Primary Care Provider ELIZABETH MARQUES Attending Unavailable JANET FERNANDEZ Referring Unavailable CHARLINE WOOTEN Attending Unavailable CHARLINE WOOTEN Attending Unavailable UNGERER, NELI D Primary Care Unavailable Ungerer BOOKING MANAGER-C, 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 Neli Primary Care Provider Ungerer BOOKING MANAGER-C, 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 Neli Referring Provider Torres Spence Attending Provider Vincent GEORGE, Dr. Reyna Emergency Provider Ungerer PLUCK SEPARATOR, Neli D Primary Care Provider Ungerer BOOKING MANAGER-C, 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 Neli Primary Care Provider Ungerer BOOKING MANAGER-C, 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 Neli Referring Provider Torres Spence Attending Provider Vincent GEOREG, Dr. Reyna Attending Provider Dr. Axel Kaur MD Emergency Provider Jarrod Gentile Attending Provider [phone] Sterling BOOKING MANAGER-CKatheryn Attending Provider Jarrod Gentile Referring Provider Care Physician, No Primary Primary Care Provider Unavailable Dr. Shilo uDnne DO Emergency Provider Ungerer BOOKING MANAGER-C, Neli Primary Care Provider Ungerer BOOKING MANAGER-C, Neli Referring Provider Care Physician, No Primary Primary Care Provider Unavailable Vibha BERNAL, Dr. Lao Attending Provider Jarrod Gentile Referring Provider [phone] Rajani BERNAL, Dr. Luna Emergency Provider Dereck BERNAL, Dr. Delcid Admit Provider Dereck BERNAL, Dr. Delcid Attending Provider Dereck BERNAL, Dr. Delcid Other Provider Mook GEORGE, Dr. Kothari Attending Provider Flori GEORGE, Dr. Montoya Attending Provider Mook GEORGE, Dr. Kothari Other Provider KENTON COLTON Attending Unavailable [facility] Primary Care Unavailable [facility] Admitting Unavailable UNGERER, NELI BOOKING MANAGER Consulting Unavailable PROVIDER, UNKNOWN Consulting Unavailable [place] PA-C, Colton D Primary Care Provider NICK RACHEL Attending Unavailable UNGERER, NELI D Primary Care Unavailable KENTON, COLTON D Primary Care Unavailable JASON, PRAMOD Attending Unavailable JASON, PRAMOD Referring Unavailable KENTON, COLTON D Primary Care Unavailable JASON, PRAMOD Referring Unavailable KENTON, COLTON D Primary Care Unavailable JASON, PRAMOD Attending Unavailable UNGERER, NELI D Primary Care Unavailable UNGERER, NELI D Primary Care Unavailable PATY ARCINIEGA Referring Unavailable UNGERER, NELI D Primary Care Unavailable LES MCKEON Referring Unavailable KENTON, COLTON D Primary Care Unavailable DAHLHAUSEN, JANET Referring Unavailable UNGERER, NELI D Primary Care Unavailable RACHELNICK Attending Unavailable UNGERER, NELI D Primary Care Unavailable DAHLHAUSEN, JANET Referring Unavailable UNGERER, NELI D Primary Care Unavailable MOOMAW, JAY Referring Unavailable KENTON, COLTON D Primary Care Unavailable MOOMAW, JAY Attending Unavailable KENTON, COLTON D Primary Care Unavailable JASON, PRAMOD Referring Unavailable MARLENA, COLTON D Primary Care Unavailable MARLENA, COLTON D Primary Care Unavailable JASON PRAMOD Referring Unavailable UNGERER, NELI D Primary Care Unavailable UNGERER, NELI D Primary Care Unavailable PATY ARCINIEGA Attending Unavailable PEDRO, PATY Referring Unavailable UNGERER, NELI D Primary Care Unavailable PATY ARCINIEGA Referring Unavailable UNGERER, NELI D Primary Care Unavailable ANTWON ESCOBEDO Attending Unavailable UNGERER, NELI D Primary Care Unavailable REDD, NELI Referring Unavailable UNGERER, NELI D Primary Care Unavailable CLJEOVANY MILLIGAN Referring Unavailable UNGERER, NELI D Primary Care Unavailable JEOVANY JOSEPH Attending Unavailable UNGERER, NELI D Primary Care Unavailable MOOK, TAYE Referring Unavailable JANET FERNANDEZ Attending Unavailable JAY DELGADO Referring Unavailable UNGERER, NELI D Primary Care Unavailable UNGERER, NELI D Primary Care Unavailable REDD, NELI Referring Unavailable UNGERER, NELI D Primary Care Unavailable UNGERER, NELI D Primary Care Unavailable Ck Martinez Attending Unavailable Ungerer, Neli Primary Care Unavailable Gracie Parmar Referring Unavailable Jarrod Gentile Attending Unavailable Care Physician, No Primary Primary Care Unava ilable Jarrod Gentile Referring Unavailable Ungerer, Neli Primary Care Unavailable Yoni Ortiz Referring Unavailable Yoni Ortiz Attending Unavailable Farhana Harden Attending Unavailable Farhana Harden Consulting Unavailable Farhana Harden Admitting Unavailable Care Physician, No Primary Primary Care Unava ilable Taye Delvalle Attending Unavailable Mook, Taye Consulting Unavailable Jarrod Gentile Attending Unavailable Ungerer, Neli Primary Care Unavailable Ungerer, Neli Referring Unavailable Ungerer, Neli Primary Care Unavailable Ungerer, Neli Referring Unavailable Katheryn Katz Attending Unavailable Ungerer, Neli Primary Care Unavailable Ungerer, Neli Referring Unavailable Parmar, Gracie Attending Unavailable Ungerer, Neli Primary Care Unavailable Ungerer, Neli Referring Unavailable Torres Spence Attending Unavailable Ungerer, Neli Primary Care Unavailable Ungerer, Neli Referring Unavailable Torres Spence Attending Unavailable Care Physician, No Primary Primary Care Unava ilable FloriJan chin Attending Unavailable Ungerer, Neli Primary Care Unavailable Spittle, Yoni Referring Unavailable Spittle, Yoni Consulting Unavailable Zelda Chapman Attending Unavailable Ungerer, Neli Primary Care Unavailable Parmar, Gracie Attending Unavailable Parmar, Gracie Referring Unavailable Ungerer, Neli Primary Care Unavailable Spittle, Yoni Referring Unavailable Spittle, Yoni Attending Unavailable Shilo Dunne [facility], No Primary Primary Care Unava ilable Ungerer, Neli Primary Care Unavailable Kaur, Axel Attending Unavailable Farhana Harden Consulting Unavailable Farhana Harden Admitting Unavailable Taye Delvalle Attending Unavailable Care Physician, No Primary Primary Care Unava ilable Allergies Allergy Classification Reported Allergen(s) Allergy Type Date of Onset Reaction(s) Facility (12 sources) Cephalexin; Translations: [cephalexin monohydrate] Drug Allergy 1 WEAKNESS, MUSCLE ACHES [facility] (1 source) Penicillins Allergy to substance 1 unknown [facility] Work Phone: (10 sources) [facility] HYDROcodone Drug Allergy 2 [facility] (6 sources) Acetaminophen / HYDROcodone; Translations: [acetaminophen-hy drocodone] Drug Allergy [facility] (20 sources) Acetaminophen / oxyCODONE; Translations: [acetaminophen-ox ycodone] Drug Allergy 3 Other: See Comments [facility] (20 sources) Cephalexin; Translations: [cephalexin] Drug Allergy 4 Other: See Comments [facility] (5 sources) oxyCODONE Drug Allergy 4 [facility] (2 sources) Acetaminophen / oxyCODONE; Translations: [OXYCODONE-ACETAM INOPHEN] Drug Allergy 4 [facility] (1 source) Acetaminophen / HYDROcodone Drug Allergy [facility] (1 source) Acetaminophen / HYDROcodone Drug Allergy [facility] (1 source) Acetaminophen / oxyCODONE Drug Allergy [facility] (1 source) Cephalexin Drug Allergy [facility] (1 source) Cephalexin Drug Allergy [facility] (1 source) Naproxen Drug Allergy [facility] (1 source) vortioxetine Drug Allergy [facility] (1 source) Acetaminophen Drug Allergy 5 [facility] Repository (1 source) HYDROcodone Drug Allergy 5 [facility] Repository (1 source) oxyCODONE Drug Allergy 5 [facility] Repository Medications Current Medications Medication Drug Class(es) Dates Sig (Normalized) Sig (Original) acetaminophen 325 mg oral capsule (11 sources) Start: 08-26-2020 take 1-10 capsules by mouth once as needed for pain Acetaminophen (Tylenol) 325 mg capsule Active 325 mg PO ONCE as needed for Pain 1-10 Or Fever August 26, 2020 12:00am [id number] 200 actuat albuterol 0.09 mg/actuat metered dose inhaler (20 sources) beta2-Adrenergic Agonist Start: 03-19-2024 take 2 puff(s) by inhalation every six hours as needed for wheezing albuterol HFA (PROVENTIL HFA, VENTOLIN HFA) 90 mcg/actuation inhaler Indications: Acute cough Inhale 2 Puffs as instructed every 6 hours as needed for wheezing/shortness of breath. 1 Each 03/19/2024 Active Start: 03-15-2023 Albuterol Sulf ate 90 mcg/actuation HFA aerosol inhaler Active 2 NMA INHALATION EVERY 6 HOURS as needed for CONGESTION/ALLERGIES March 15, 2023 12:00am Start: 03-15-2023 take 1 puff(s) by in halation every six hours Albuterol Sulfate Active 2 PUFF INHALATION EVERY 6 HOURS March 15, 2023 12:00am Start: 03-15-2023 Albuterol Sulf ate Active INHALATION March 15, 2023 12:00am Start: 06-24-2019 End: 08-26-2020 Albuterol Sulfate 1 PUFF inh aler Discontinued 2 NMA INHALATION EVERY 4 HOURS NEEDED as needed for Sob &/Or Wheezing June 24, 2019 1:00am August 26, 2020 8:39am Start: 06-24-2019 End: 08-26-2020 take 1 puff(s) by inhalation every four hours as needed Albuterol Sulfate Discontinued 2 PUFF INHALATION EVERY 4 HOURS NEEDED June 24, 2019 1:00am August 26, 2020 8:39am Albuterol (Eqv-Ventolin HFA) 90 mcg/inh inhalation aerosol (3 sources) Start: 11-25-2022 take 1 dose by inhalation every six hours as needed for wheezing Albuterol (Eqv-Ventolin HFA) 90 mcg/inh inhalation aerosol Dose = 2 puff(s), Inhalation, q6hr, PRN as needed for wheezing, 0 Refill(s) Start Date: 11/25/22 Status: Ordered apixaban 5 mg oral tablet (20 sources) Factor Xa Inhibitor Start: 04-08-2023 take 1 tablet by mouth every twelve hours ELIQUIS 5 mg tab(s) Take 1 tablet by mouth every 12 hours. 04/08/2023 Active Start: 06-03-2020 take 1 tablet by juliano th twice daily Apixaban 5 MG tablet Active 5 mg PO TWICE A DAY June 03, 2020 1:00am Comment on above: Take 1 tablet by juliano th every 12 hours. azithromycin 250 mg oral tablet (13 sources) Macrolide Antimicrobial Start: 03-28-20 End: 04-02-20 take 2 tablets by mouth once daily, then take 1 tablet by mouth once daily azithromycin (ZITHROMAX) 250 mg tablet Indications: Acute cough Take 2 tablets by mouth once daily for 1 day, THEN 1 tablet once daily for 4 days. 6 tablet 03/28/2024 04/02/2024 Active Start: 04-04-2019 End: 04-11-2019 take 1 tablet by mouth once daily Azithromycin 250 MG tablet Discontinued 250 mg PO DAILY 4 April 04, 2019 12:00am April 07, 2019 12:00am April 11, 2019 12:10am cetirizine hydrochloride 10 mg oral tablet (20 sources) Histamine-1 Receptor Antagonist Start: 03-15-2023 Cetirizine Active MG March 15, 2023 12:00am Start: 01-21-2023 take 1 tablet by juliano th once daily cetirizine (ZYRTEC) 10 mg tablet Take 10 mg by mouth once daily. 01/21/2023 Active Start: 11-25-2022 cetirizine 10 mg oral tablet Dose : 10 mg = 1 tab(s), Oral, Daily, 0 Refill(s) Start Date: 11/25/22 Status: Ordered Start: 01-30-2015 End: 08-26-2020 take 1 capsule by mouth once daily Cetirizine 10 MG capsule Discontinued 10 mg PO DAILY January 30, 2015 12:00am August 26, 2020 8:42am chlorzoxazone 500 mg oral tablet (13 sources) Muscle Relaxant Start: 10-25-2024 chlorzoxazone (PARAFON FORTE DSC) 500 mg tablet Take 1 tablet (500 mg) by mouth four times a day until headache free for 24 hours or take for full 5 days. 20 tablet 10/25/2024 Active cholecalciferol 0.025 mg oral capsule (20 sources) Vitamin D Start: 10-22-2024 take 1 capsule by mouth once daily Cholecalciferol (Vitamin D3) 25 mcg (1,000 unit) capsule Active 50 ug PO DAILY October 22, 2024 12:00am Start: 02-21-2023 take 2 tablets by mouth once c holecalciferol (VITAMIN D3) 1,000 unit tab tablet Take 2 tablets by mouth every afternoon. 02/21/2023 Active Start: 06-03-2020 End: 10-22-2024 take 1 capsule by mouth once daily Cholecalciferol (Vitamin D3) 2,000 UNIT capsule Discontinued 2000 U PO DAILY June 03, 2020 1:00am October 22, 2024 10:12pm Comment on above: Take 2 tablets by mo uth every afternoon. citalopram 40 mg oral tablet (20 sources) Serotonin Reuptake Inhibitor Start: 9 End: 5 take 1 tablet by mouth once citalopram (CELEXA) 40 mg tablet Take 1 tablet by mouth every afternoon. 04/05/2023 Active Comment on above: Take 1 tablet by juliano th every afternoon. doxycycline hyclate 100 mg oral tablet (5 sources) Tetracycline-class Drug Start: 4 End: 4 take 1 tablet by mouth twice daily doxycycline (VIBRA-TABS) 100 mg tablet Indications: Rhinosinusitis Take 1 tablet by mouth two times a day for 7 days. 14 tablet 03/19/2024 03/26/2024 Active Start: 03-05-2024 End: 04-10-2024 take 1 capsule by mouth twice daily Doxycycline Monohydrate 100 mg capsule Discontinued 100 mg PO TWICE A DAY March 05, 2024 12:00am April 10, 2024 11:42am 1 ml erenumab-aooe 70 mg/ml auto-injector (20 sources) Start: 01-20-2025 inject 1 mL by subcutaneous injection every month erenumab-aooe (AIMOVIG AUTOINJECTOR) 70 mg/mL auto-injector Indications: Chronic migraine without aura with status migrainosus, not intractable Inject 1 mL subcutaneously once every month. 3 mL 3 01/20/2025 Active Start: 10-02-2023 End: 01-15-2025 inject 1 mL by subcutaneous injection every month erenumab-aooe (AIMOVIG AUTOINJECTOR) 70 mg/mL auto-injector Indications: Chronic migraine without aura with status migrainosus, not intractable Inject 1 mL subcutaneously once every month. 3 mL 10/25/2024 01/15/2025 Discontinued famotidine 40 mg oral tablet (20 sources) Histamine-2 Receptor Antagonist Start: 03-30-2023 take 1 tablet by mouth twice daily at bedtime famotidine (PEPCID) 40 mg tablet TAKE 1 TABLET BY MOUTH TWICE DAILY WITH SUPPER AND AT BEDTIME 03/30/2023 Active Start: 03-15-2023 take 1 tablet by juliano th every twelve hours Famotidine 40 mg tablet Active 40 mg PO Q12H March 15, 2023 12:00am Start: 03-15-2023 Famotidine Act ivon MG March 15, 2023 12:00am Start: 11-25-2022 famotidine 40 mg oral tablet Dose : 40 mg = 1 tab(s), Oral, Daily, 0 Refill(s) Start Date: 11/25/22 Status: Ordered Comment on above: TAKE 1 TABLET BY JULIANO TH TWICE DAILY WITH SUPPER AND AT BEDTIME haloperidol 5 mg oral tablet (20 sources) Typical Antipsychotic Start: 11-25-2022 haloperidol 5 mg oral tablet Dose : 2.5 mg = 0.5 tab(s), Oral, TID, PRN Anxiety Start Date: 11/25/22 Status: Ordered Start: 04-04-2019 take 2.5 mg by mouth three times daily as needed for anxiety Haloperidol 5 MG tablet Active 2.5 mg PO THREE TIMES A DAY as needed for Anxiety April 04, 2019 12:00am Start: 04-04-2019 take 2.5 mg by mouth three times daily Haloperidol Active 2.5 MG PO THREE TIMES A DAY April 04, 2019 12:00am Comment on above: Take 5 mg by mouth a s needed (for anxiety). Inhalational Spacing Device (1 source) Start: 03-19-2024 End: 03-19-2024 Inhalational Spacing Device 1 Device one time only for 1 dose. 1 Each 03/19/2024 03/19/2024 Active iv contrast (will be provided with radiology test) (2 sources) Start: 11-14-2024 End: 11-15-2024 iv contrast (will be provided with radiology test) MRI CSP Inject, intravenously, once for 1 dose. No IV access, insert saline lock prior to the beginning of sedation, infusion, injection of imaging exam. Discontinue saline lock post exam. If Pt. has a central line or IVAD, may access for administration according to line specific nursing protocol. Once exam is complete flush line and de-access according to line specific nursing protocol in the MR contrast administration guidelines link. 1 each 11/14/2024 11/15/2024 Active Start: 11-14-2024 End: 11-15-2024 inject 1 dose intravenously once iv contrast (will be provided with radiology test) MRI TSP Inject, intravenously, once for 1 dose. No IV access, insert saline lock prior to the beginning of sedation, infusion, injection of imaging exam. Discontinue saline lock post exam. If Pt. has a central line or IVAD, may access for administration according to line specific nursing protocol. Once exam is complete flush line and de-access according to line specific nursing protocol in the MR contrast administration guidelines link. 1 each 11/14/2024 11/15/2024 Active lamoTRIgine 200 mg oral tablet (20 sources) Mood Stabilizer, Anti-epileptic Agent Start: 03-15-2023 Lamotrigine Active MG March 15, 2023 12:00am Start: 03-06-2023 take 1 tablet by juliano th once daily in the morning lamoTRIgine (LAMICTAL) 200 mg tablet TAKE 1 TABLET BY MOUTH ONCE DAILY IN THE MORNING 03/06/2023 Active Start: 11-25-2022 lamoTRIgine 20 0 mg oral tablet Dose : 200 mg = 1 tab(s), Oral, Daily, # 60 tab(s), 0 Refill(s) Start Date: 11/25/22 Status: Ordered Start: 06-03-2020 take 200 mg by mouth once idalia y Lamotrigine Active 200 MG PO DAILY June 03, 2020 1:00am Comment on above: TAKE 1 TABLET BY JULIANO TH ONCE DAILY IN THE MORNING lidocaine 0.05 mg/mg medicated patch (20 sources) Antiarrhythmic, Amide Local Anesthetic Start: 04-13-2021 Lidocaine (Lidoderm) 5 % adhesive patch,medicated Active 1 NMA TOPICAL DAILY April 13, 2021 12:00am leave on most painful area for up to 12 hrs Start: 06-03-2020 End: 06-08-2020 Lidocaine 1 PATCH patch Discontinued 1 NMA TOPICAL DAILY 5 June 03, 2020 1:00am June 07, 2020 1:00am June 08, 2020 1:02am Keep on the affected area for up to 12 hours/day. apply 1 dose transde rmal route every twenty-four hours lidocaine (LIDODERM) 5 % Apply 1 Patch as directed every 24 hours. Active 1 ml medroxyPROGESTERone acetate 150 mg/ml prefilled syringe (20 sources) Progestin Start: 01-30-2015 inject 150 mg by intramuscular injection every three months Medroxyprogesterone 150 MG/ML syringe Active 150 mg IM .[id number] January 30, 2015 12:00am Start: 01-30-2015 inject 150 mg by int ramuscular injection every three months Medroxyprogesterone Active 150 MG IM .[id number] January 30, 2015 12:00am medroxyPROGESTER one (DEPO-PROVERA) 150 mg/mL injection Inject 150 mg intramuscularly every 12 weeks. Active methocarbamol 500 mg oral tablet (20 sources) Muscle Relaxant Start: 08-17-2024 take 250-500 mg by mouth every eight hours as needed for muscle spasms Methocarbamol 500 mg tablet Active 250 - 500 mg PO Q8H as needed for muscle spasm August 17, 2024 1:00am Start: 08-17-2024 take 250-500 mg by m outh twice daily as needed for muscle spasms Methocarbamol 500 mg tablet Active 250 - 500 mg PO TWICE DAILY NEEDED as needed for muscle spasm August 17, 2024 1:00am Start: 07-18-2023 End: 08-30-2023 take 2 tablets by mouth four times daily as needed for pain Methocarbamol 500 mg tablet Discontinued 1000 mg PO 4 TIMES DAILY NEEDED as needed for Muscle pain/spasm 56 July 18, 2023 11:35pm August 30, 2023 12:31am Start: 07-18-2023 End: 08-30-2023 take 1000 mg by mouth four times daily as needed Methocarbamol Discontinued 1000 MG PO 4 TIMES DAILY NEEDED 56 July 18, 2023 11:35pm August 30, 2023 12:31am take 1 tablet by juliano th four times daily methocarbamol (ROBAXIN) 500 mg tablet Take 500 mg by mouth four times daily. Active montelukast 10 mg oral tablet (20 sources) Leukotriene Receptor Antagonist Start: 03-15-2023 take 1 tablet by mouth once montelukast (SINGULAIR) 10 mg tablet Take 1 tablet by mouth every afternoon. 03/16/2023 Active Start: 03-15-2023 Montelukast Ac tive MG March 15, 2023 12:00am Start: 04-04-2019 End: 08-26-2020 take 1 tablet by mouth once daily Montelukast 10 MG tablet Discontinued 10 mg PO DAILY April 04, 2019 12:00am August 26, 2020 8:41am Comment on above: Take 1 tablet by juliano th every afternoon. 24 hr nicotine 0.583 mg/hr transdermal system (1 source) Cholinergic Nicotinic Agonist Start: 10-24-19 apply 1 dose transdermal route every twenty-four hours Nicotine 14 mg/24 hr Patch 24 Hour Active 14 mg TD DAILY October 23, 2024 12:00am nystatin 100 unt/mg topical powder (20 sources) Polyene Antifungal Start: 03-30-20 nystatin (MYCOSTATIN) powder APPLY POWDER TOPICALLY TWICE TO THREE TIMES DAILY TO GROIN AREA DIRECTED 03/30/2023 Active Comment on above: APPLY POWDER TOPICAL LY TWICE TO THREE TIMES DAILY TO GROIN AREA DIRECTED predniSONE 50 mg oral tablet (14 sources) Start: 01-12-20 End: 01-17-20 take 1 tablet by mouth once daily predniSONE (DELTASONE) 50 mg Indications: Acute right ankle pain Take 1 tablet by mouth once daily for 5 days. 5 tablet 01/11/2025 01/16/2025 Active Start: 03-28-2024 End: 05-24-2024 predniSONE (DELTASONE) 10 mg tablet Indications: Acute cough Take 4 tabs daily for 3 days, then 2 tabs daily for 3 days, then 1 tab daily for 3 days with food. 21 tablet 03/28/2024 05/24/2024 Discontinued (Course of therapy completed) Start: 03-19-2024 End: 03-27-2024 take 3 tablets by mouth once daily, then take 2 tablets by mouth once daily, then take 1 tablet by mouth once daily predniSONE (DELTASONE) 10 mg tablet Indications: Acute cough Take 3 tablets by mouth once daily for 3 days, THEN 2 tablets once daily for 3 days, THEN 1 tablet once daily for 3 days. 18 tablet 03/19/2024 03/27/2024 Active Start: 10-17-2023 End: 01-16-2024 take 4 tablets by mouth once daily, then take 3 tablets by mouth once daily, then take 2 tablets by mouth once daily, then take 1 tablet by mouth once daily Prednisone 10 mg tablet Discontinued 10 mg PO DAILY October 17, 2023 12:00am January 16, 2024 1:28pm 4 tablets daily x3 days, then 3 tablets daily x3 days, then 2 tablets daily x3 days, then 1 tablet daily x3 days rimegepant 75 mg disintegrating oral tablet (20 sources) Start: 04-29-2024 take 1 tablet by mouth once daily as needed rimegepant (NURTEC ODT) 75 mg disintegrating tablet Indications: Migraine without aura and without status migrainosus, not intractable Take 1 tablet by mouth once daily as needed (Migraine). 8 tablet 6 04/29/2024 Active Start: 09-14-2023 End: 12-13-2023 take 1 tablet by mouth every other day in the morning rimegepant (NURTEC ODT) 75 mg disintegrating tablet Take 1 tablet by mouth every other day in the morning. 16 tablet 2 09/14/2023 12/13/2023 Active Start: 05-31-2023 End: 08-29-2023 take 1 tablet by mouth once daily as needed Rimegepant (Nurtec Odt) 75 mg tablet,disintegrating Active 75 mg PO DAILY NEEDED August 30, 2023 12:00am Comment on above: Take 1 tablet by juliano th once daily as needed. Take 1 tablet by juliano th every other day in the morning. topiramate 200 mg oral tablet (20 sources) Start: 04-12-2023 take 1 tablet by mouth twice daily topiramate (TOPAMAX) 200 mg tablet Take 200 mg by mouth two times a day. 04/12/2023 Active Start: 11-25-2022 topiramate 200 mg oral tablet Dose : 200 mg = 1 tab(s), Oral, BID, # 60 tab(s), 0 Refill(s) Start Date: 11/25/22 Status: Ordered Start: 01-30-2015 End: 10-22-2024 Topiramate 25 MG tablet Disc ontinued 200 mg PO TWICE A DAY January 30, 2015 12:00am October 22, 2024 10:11pm Start: 01-30-2015 take 200 mg by mouth twice daily Topiramate Active 200 MG PO TWICE A DAY January 30, 2015 12:00am traMADol hydrochloride 50 mg oral tablet (14 sources) Opioid Agonist Start: 11-25-2022 traMADol 50 mg oral tablet Dose : 50 mg = 1 tab(s), Oral, q6h, PRN for pain, # 12 tab(s), 0 Refill(s), 81 Start Date: 11/25/22 Status: Ordered Start: 02-14-2020 End: 02-17-2020 take 1 tablet by mouth every four hours as needed for pain Tramadol 50 MG tablet Discontinued 50 mg PO EVERY 4 HOURS NEEDED as needed for Pain 03 14February 14, 2020 12:00am February 16, 2020 12:00am February 17, 2020 12:02am triamcinolone acetonide 0.055 mg/actuat metered dose nasal spray (20 sources) Corticosteroid Start: 03-15-2023 Triamcinolone Acetonide 55 mcg aerosol,spray Active 2 NMA INTRANASAL DAILY March 15, 2023 12:00am Start: 03-15-2023 Triamcinolone Acetonide Active 2 SPRAY INTRANASAL DAILY March 15, 2023 12:00am Start: 03-15-2023 Triamcinolone Acetonide Active INTRANASAL March 15, 2023 12:00am Start: 11-25-2022 take 55 ug nasal rou te once daily triamcinolone 55 mcg/inh nasal spray 55 mcg Dose = 1 spray(s), Nostril, each, qDay, # 16.9 mL, 0 Refill(s) Start Date: 11/25/22 Status: Ordered Start: 01-30-2015 End: 08-26-2020 Triamcinolone Acetonide 10.8 ML aerosol,spray Discontinued 10.8 mL NS NEEDED as needed for Congestion January 30, 2015 12:00am August 26, 2020 8:41am Completed/Discontinued Medications Medication Drug Class(es) Dates Sig (Normalized) Sig (Original) acetaminophen 325 mg / HYDROcodone bitartrate 5 mg oral tablet (12 sources) Opioid Agonist Start: 08-17-2024 End: 09-07-2024 Hydrocodone-Acetami nophen 5-325 mg tablet Discontinued 1 {tbl} PO EVERY 6 HOURS as needed for pain 12 3 August 17, 2024 September 07, 2024 11:27am Start: 12-07-2022 End: 12-14-2022 take 1 tablet by mouth every six hours as needed for pain [place] 325- 5 mg oral tablet Dose = 1 tab(s), Oral, q6h, PRN for pain, X 7 day(s), # 28 tab(s), 0 Refill(s), Pharmacy: [id number], Cervical spondylosis, 160, cm, 12/07/22 6:50:00 EDT, Height, 101 Start Date: 12/07/22 Stop Date: 12/14/22 Status: Ordered End: 12-18-2024 take 1 tablet by mouth every eight hours as needed HYDROcodone-acetaminophen (NORCO) 5-325 mg per tablet Take 1 tablet by mouth every 8 hours as needed for pain. 0 12/18/2024 Discontinued acetaminophen 325 mg / oxyCODONE hydrochloride 5 mg oral tablet (17 sources) Opioid Agonist Start: 07-18-2023 End: 08-30-2023 Oxycodone-Acetaminophen (Percocet) 5-325 mg tablet Discontinued 1 {tbl} PO EVERY 6 HOURS as needed for pain 12 3 July 18, 2023 August 30, 2023 12:31am Start: 05-07-2022 End: 03-15-2023 Oxycodone-Acetaminophen (Per cocet) 5-325 mg tablet Discontinued 1 {tbl} PO EVERY 6 HOURS as needed for pain 12 May 07, 2022 March 15, 2023 9:36pm acyclovir 400 mg oral tablet (11 sources) Herpesvirus Nucleoside Analog DNA Polymerase Inhibitor, Herpes Simplex Virus Nucleoside Analog DNA Polymerase Inhibitor, Herpes Zoster Virus Nucleoside Analog DNA Polymerase Inhibitor Start: 07-17-2019 End: 08-26-2020 take 1 tablet by mouth three times daily as needed Acyclovir 400 MG tablet Discontinued 400 mg PO THREE TIMES A DAY as needed for herpes outbreak July 17, 2019 1:00am August 26, 2020 8:39am amoxicillin 500 mg oral capsule (19 sources) Penicillin-class Antibacterial Start: 06-19-2024 End: 10-25-2024 take 1 capsule by mouth three times daily amoxicillin (AMOXIL) 500 mg capsule Take 500 mg by mouth three times a day. 06/19/2024 10/25/2024 Discontinued Start: 06-19-2024 End: 08-17-2024 take 1 tablet by mouth three times daily Amoxicillin 500 mg tablet Discontinued 500 mg PO THREE TIMES A DAY June 19, 2024 1:00am August 17, 2024 5:12pm Start: 09-05-2023 End: 10-31-2023 take 1 tablet by mouth three times daily Amoxicillin 500 mg tablet Discontinued 500 mg PO THREE TIMES A DAY September 05, 2023 12:00am October 31, 2023 1:02pm amoxicillin 875 mg / clavulanate 125 mg oral tablet (7 sources) Penicillin-class Antibacterial Start: 06-02-2023 End: 06-12-2023 Amoxicillin-Pot Clavulanate 875-125 mg tablet Discontinued 1 {tbl} PO Q12H 31 03June 02, 2023 1:00am June 11, 2023 1:00am June 12, 2023 1:04am Start: 06-02-2023 End: 06-12-2023 take 1 tablet by mouth every twelve hours Amoxicillin-Pot Clavulanate Discontinued 1 TABLET PO Q12H 20 June 02, 2023 1:00am June 12, 2023 1:04am baclofen 20 mg oral tablet (11 sources) gamma-Aminobutyric Acid-ergic Agonist Start: 06-03-2020 End: 08-30-2023 take 10-20 mg by mouth three times daily as needed for muscle spasms Baclofen 20 MG tablet Discontinued 10 - 20 mg PO THREE TIMES A DAY as needed for Spasms June 03, 2020 1:00am August 30, 2023 12:28am benzonatate 200 mg oral capsule (12 sources) Non-narcotic Antitussive Start: 10-31-2023 End: 01-16-2024 take 1 capsule by mouth three times daily as needed for cough Benzonatate 200 mg capsule Discontinued 200 mg PO THREE TIMES A DAY as needed for cough October 31, 2023 12:00am January 16, 2024 1:27pm Start: 04-25-2023 End: 08-30-2023 take 1 capsule by mouth three times daily as needed for cough Benzonatate 200 mg capsule Discontinued 200 mg PO THREE TIMES A DAY as needed for cough April 25, 2023 1:00am August 30, 2023 12:28am 24 hr buPROPion hydrochloride 150 mg extended release oral tablet (11 sources) Aminoketone Start: 06-03-2020 End: 08-26-2020 take 1 tablet by mouth twice daily Bupropion Hcl 150 MG tablet extended release 24 hr Discontinued 150 mg PO TWICE A DAY June 03, 2020 1:00am August 26, 2020 8:42am Chlorhexidine Gluconate (Peridex) 0.12 % mouthwash (7 sources) Start: 07-16-2023 End: 01-16-2024 Chlorhexidine Gluconate (Peridex) 0.12 % mouthwash Discontinued 15 mL BUCCAL TWICE A DAY July 16, 2023 1:00am January 16, 2024 1:26pm Start: 07-16-2023 End: 01-16-2024 Chlorhexidine Gluconate (Per idex) 0.12 % mouthwash Discontinued 15 mL BUCCAL TWICE A DAY 120 July 16, 2023 12:00am January 16, 2024 12:26pm Start: 07-16-2023 Chlorhexidine Gluconate (Peridex) 0.12 % mouthwash Active 15 ML BUCCAL TWICE A DAY July 16, 2023 1:00am Start: 07-16-2023 Chlorhexidine Gluconate (Peridex) 0.12 % mouthwash Active 15 ML BUCCAL TWICE A DAY July 16, 2023 12:00am cyclobenzaprine hydrochloride 10 mg oral tablet (4 sources) Muscle Relaxant Start: 10-17-2023 End: 08-17-2024 take 1 tablet by mouth three times daily as needed for muscle spasms Cyclobenzaprine 10 mg tablet Discontinued 10 mg PO THREE TIMES A DAY as needed for muscle spasm October 17, 2023 12:00am August 17, 2024 5:14pm diclofenac sodium 0.01 mg/mg topical gel (11 sources) Nonsteroidal Anti-inflammator y Drug Start: 04-13-2021 End: 03-15-2023 Diclofenac Sodium 1 % gel Discontinued 1 NMA TOPICAL THREE TIMES A DAY April 13, 2021 12:00am March 15, 2023 9:35pm 1 ml enoxaparin sodium 100 mg/ml prefilled syringe (20 sources) Low Molecular Weight Heparin Start: 06-12-2024 End: 10-25-2024 inject 0.9 mL by subcutaneous injection every twelve hours enoxaparin (LOVENOX) 100 mg/mL syrg Inject 0.9 mL subcutaneously every 12 hours. 14 Each 06/12/2024 10/25/2024 Discontinued Start: 01-10-2024 End: 08-17-2024 Enoxaparin (Lovenox) 100 mg/ mL syringe Discontinued 90 mg SC TWICE A DAY 54 January 10, 2024 3:23pm August 17, 2024 5:12pm Start: 01-08-2024 End: 01-10-2024 Enoxaparin (Lovenox) 100 mg/ mL syringe Discontinued 90 mg SC DAILY January 08, 2024 12:00am January 10, 2024 3:32pm End: 05-24-2024 enoxaparin (LOVENOX) 100 mg/ mL syrg Inject subcutaneously every 12 hours. 05/24/2024 Discontinued (Course of therapy completed) FLUoxetine 10 mg oral capsule (11 sources) Serotonin Reuptake Inhibitor Start: 11-18-2013 End: 11-25-2013 take 1 capsule by mouth once daily Fluoxetine 10 MG capsule Discontinued 10 mg PO DAILY November 18, 2013 12:00am November 25, 2013 9:40am Lactobacillus Combination No.8 (Adult Probiotic) 3 billion cell capsule (11 sources) Start: 08-26-2020 End: 03-15-2023 take 3 capsules by mouth once daily Lactobacillus Combination No.8 (Adult Probiotic) 3 billion cell capsule Discontinued 3000 NMA PO DAILY August 26, 2020 12:00am March 15, 2023 9:35pm administer with a meal Start: 08-26-2020 End: 03-15-2023 take 3 capsules by mouth once daily Lactobacillus Combination No.8 (Adult Probiotic) 3 billion cell capsule Discontinued 3000 NMA PO DAILY August 25, 2020 11:00pm March 15, 2023 8:35pm administer with a meal Start: 08-26-2020 End: 03-15-2023 take 3 capsules by mouth once daily Lactobacillus Combination No.8 (Adult Probiotic) 3 billion cell capsule Discontinued 3000 MMU CELLS PO DAILY August 25, 2020 11:00pm March 15, 2023 8:35pm administer with a meal Start: 08-26-2020 End: 03-15-2023 take 3 capsules by mouth once daily Lactobacillus Combination No.8 (Adult Probiotic) 3 billion cell capsule Discontinued 3000 MMU CELLS PO DAILY August 26, 2020 12:00am March 15, 2023 9:35pm administer with a meal Start: 08-26-2020 take 3 capsules by m outh once daily Lactobacillus Combination No.8 (Adult Probiotic) 3 billion cell capsule Active 3000 MMU CELLS PO DAILY August 25, 2020 11:00pm administer with a meal Start: 08-26-2020 take 3 capsules by m outh once daily Lactobacillus Combination No.8 (Adult Probiotic) 3 billion cell capsule Active 3000 MMU CELLS PO DAILY August 26, 2020 12:00am administer with a meal meclizine hydrochloride 25 mg oral tablet (11 sources) Antiemetic Start: 06-03-2020 End: 08-26-2020 take 1 tablet by mouth once daily as needed Meclizine 25 MG tablet Discontinued 25 mg PO DAILY as needed for Vertigo June 03, 2020 1:00am August 26, 2020 8:42am methylPREDNISolone 4 mg oral tablet (20 sources) Corticosteroid Start: 09-07-2024 End: 10-22-2024 take 1 tablet by mouth once Methylprednisolone (Medrol (Julio Cesar)) 4 mg tablets,dose pack Discontinued 0 PO per package directions September 07, 2024 12:00am October 22, 2024 10:18pm PO PER PKG DIR for 6 days Start: 10-31-2023 End: 01-16-2024 take 1 tablet by mouth once Methylprednisolone (Medrol (Julio Cesar)) 4 mg tablets,dose pack Discontinued 0 PO per package directions October 31, 2023 12:00am January 16, 2024 1:28pm PO PER PKG DIR Start: 07-27-2023 End: 08-02-2023 take 1 tablet by mouth once Methylprednisolone (Medrol (Julio Cesar)) 4 mg tablets,dose pack Discontinued 4 mg PO per package directions 30 11July 27, 2023 1:00am August 01, 2023 1:00am August 02, 2023 1:04am Start: 05-22-2023 End: 06-08-2023 take 1 tablet by mouth once Methylprednisolone (Medrol (Julio Cesar)) 4 mg tablets,dose pack Discontinued 4 mg PO per package directions 30 11June 02, 2023 1:00am June 07, 2023 1:00am June 08, 2023 1:05am Start: 01-11-2016 End: 11-14-2023 inject 20 mg by intramuscular injection every three months methylPREDNISolone acetate (DEPO-MEDROL) 20 mg/mL susp Inject 20 mg intramuscularly every 3 months. 0 01/11/2016 11/14/2023 Discontinued Mupirocin (18 sources) RNA Synthetase Inhibitor Antibacterial Start: 07-16-2023 End: 08-30-2023 Mupirocin 2 % ointment Discontinued 1 NMA TOPICAL THREE TIMES A DAY July 16, 2023 1:00am August 30, 2023 12:31am Start: 07-16-2023 End: 08-30-2023 Mupirocin 2 % ointment Disco ntinued 1 NMA TOPICAL THREE TIMES A DAY July 16, 2023 12:00am August 29, 2023 11:31pm Start: 07-16-2023 End: 08-30-2023 Mupirocin Discontinued 1 NIKKI LIC TOPICAL THREE TIMES A DAY July 16, 2023 1:00am August 30, 2023 12:31am Start: 07-16-2023 Mupirocin Acti ve 1 APPLIC TOPICAL THREE TIMES A DAY July 16, 2023 12:00am Start: 07-03-2020 End: 08-26-2020 Mupirocin 1 APPLIC ointment Discontinued 1 NMA TOPICAL THREE TIMES A DAY July 03, 2020 1:00am August 26, 2020 8:41am Start: 07-03-2020 End: 08-26-2020 Mupirocin Discontinued 1 NIKKI LIC TOPICAL THREE TIMES A DAY July 03, 2020 1:00am August 26, 2020 8:41am naproxen 500 mg oral tablet (11 sources) Nonsteroidal Anti-inflammatory Drug Start: 04-13-2021 End: 03-15-2023 take 1 tablet by mouth twice daily as needed for pain Naproxen (Naprosyn) 500 mg tablet Discontinued 500 mg PO TWICE A DAY as needed for pain April 13, 2021 12:00am March 15, 2023 9:35pm microencapsulated potassium chloride 20 meq extended release oral tablet (8 sources) Start: 03-16-2023 End: 08-30-2023 take 1 tablet by mouth twice daily Potassium Chloride 20 mEq tablet,ER particles/cory ls Discontinued 20 meq PO TWICE A DAY March 16, 2023 12:00am August 30, 2023 12:31am SUMAtriptan 100 mg oral tablet (13 sources) Serotonin-1b and Serotonin-1d Receptor Agonist Start: 03-15-2023 Sumatriptan Succinate Active MG PO March 15, 2023 12:00am Start: 03-12-2023 End: 08-30-2023 take 1 tablet by mouth every two hours as needed for headache Sumatriptan Succinate 100 mg tablet Discontinued 100 mg PO Q2H as needed for migraine headache March 15, 2023 12:00am August 30, 2023 12:31am Start: 11-25-2022 take 1 tablet by juliano th every twenty-four hours SUMAtriptan 100 mg oral tablet Dose : 100 mg = 1 tab(s), Oral, qDay, PRN as needed for migraine headache, may repeat dose after 2 hours up to a maximum of 200 mg in 24 hours, # 18 tab(s), 0 Refill(s) Start Date: 11/25/22 Status: Ordered Comment on above: TAKE ONE TABLET BY Antwon SANTOYO AT ONSET OF HEADACHE, MAY REPEAT IN 2 HOURS. MAX 200 MG IN 24 HOURS VITAMIN D3 25 MCG (1,000 UNIT) TABLET (3 sources) Start: 11-25-2022 VITAMIN D3 25 MCG (1,000 UNIT) TABLET VITAMIN D3 25 MCG (1,000 UNIT) TABLET, 1 tab, Oral, Daily, 0 Refill(s), 81 Start Date: 11/25/22 Status: Ordered Problems Active Problems Problem Classification Problem Date Documented Da te Episodic/Chronic Acute cerebrovascular disease (3 sources) Progressing stroke; Translations: [Cerebral infarction, unspecified] Onset: 4 10-25-2023 Chronic Anxiety disorders (20 sources) Anxiety; Translations: [Anxiety disorder, unspecified] 09-29-2020 Chronic Chronic obstructive pulmonary disease and bronchiectasis (11 sources) Bronchitis; Translations: [Bronchitis, not specified as acute or chronic] 06-18-2019 Episodic Coagulation and hemorrhagic disorders (20 sources) Factor V Leiden mutation; 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] Onset: 3 Chronic Coma; stupor; and brain damage (1 source) Daytime somnolence; Translations: [Somnolence] 02-28-2024 Episodic Deficiency and other anemia (4 sources) Anemia; Translations: [Anemia, unspecified] 10-22-2024 Episodic Deficiency and other anemia (1 source) Anemia, unspecified; Translations: [Anemia, unspecified] Onset: 5 Episodic Disorders of teeth and jaw (14 sources) Toothache; Translations: [Other specified disorders of teeth and supporting structures] 07-16-2023 Episodic Esophageal disorders (7 sources) Gastroesophageal reflux disease without esophagitis; Translations: [Gastro-esophageal reflux disease without esophagitis] Onset: 3 Chronic Fluid and electrolyte disorders (11 sources) Hypokalemia; Translations: [Hypokalemia] 03-15-2023 Episodic Gout and other crystal arthropathies (8 sources) Gouty arthritis of left great toe; Translations: [Gout, unspecified] 07-27-2023 Chronic Headache; including migraine (20 sources) Migraine; Translations: [Migraine, unspecified, not intractable, without status migrainosus] Onset: 3 Chronic Headache; including migraine (11 sources) Headache; Translations: [Headache] Onset: 5 10-22-2024 Episodic Headache; including migraine (1 source) Headache; including migraine; Translations: [Headache, unspecified] Onset: 5 Immunizations and screening for infectious disease (1 source) Other specified abnormal immunological findings in serum; Translations: [Positive ALFONZO (antinuclear antibody)] Onset: 5 Episodic Malaise and fatigue (12 sources) Asthenia; Translations: [Weakness] 03-15-2023 Episodic Mood disorders (1 source) Bipolar disorder; Translations: [Bipolar disorder, unspecified] Onset: 3 Chronic Other aftercare (9 sources) Long-term current use of anticoagulant; 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] Onset: 5 08-25-2024 Episodic Other circulatory disease (1 source) History of embolic cerebrovascular accident; Translations: [Personal history of transient ischemic attack (TIA), and cerebral infarction without residual deficits] 01-17-2024 Episodic Other circulatory disease (1 source) History of transient ischemic attack; Translations: [Personal history of transient ischemic attack (TIA), and cerebral infarction without residual deficits] 11-14-2024 Episodic Other circulatory disease (1 source) Personal history of transient ischemic attack (TIA), and cerebral infarction without residual deficits; Translations: [History of TIA (transient ischemic attack)] Onset: 5 Episodic Other connective tissue disease (11 sources) Tendinitis of shoulder region; Translations: [Other enthesopathies, not elsewhere classified] 09-30-2020 Episodic Other connective tissue disease (15 sources) Weakness of face muscles; Translations: [Facial weakness] 03-15-2023 Episodic Other connective tissue disease (4 sources) Facial weakness; Translations: [Facial weakness] Onset: 4 03-15-2023 Episodic Other connective tissue disease (7 sources) Spasm; Translations: [Other muscle spasm] 07-18-2023 Episodic Other connective tissue disease (1 source) Transient neurological symptoms; Translations: [Other symptoms and signs involving the nervous system] 02-28-2024 Episodic Other connective tissue disease (4 sources) Monoparesis - leg; Translations: [Other symptoms and signs involving the musculoskeletal system] 10-22-2024 Episodic Other connective tissue disease (1 source) Other symptoms and signs involving the musculoskeletal system; Translations: [Other symptoms and signs involving the musculoskeletal system] Onset: 5 Episodic Other injuries and conditions due to external causes (2 sources) Injury of right shoulder; Translations: [Unspecified injury of right shoulder and upper arm, initial encounter] 05-24-2024 Episodic Other lower respiratory disease (2 sources) Snoring; Translations: [Snoring] 09-14-2023 Episodic Other lower respiratory disease (5 sources) Cough; Translations: [Acute cough] 03-19-2024 Episodic Other nervous system disorders (1 source) Demyelinating disease of central nervous system, unspecified; Translations: [Demyelinating disease of central nervous system (HCC)] Onset: 3 Chronic Other nervous system disorders (5 sources) Expressive dysphasia; Translations: [Aphasia] 10-22-2024 Chronic Other nervous system disorders (3 sources) Demyelinating disease of central nervous system 11-14-2024 Chronic Other nervous system disorders (2 sources) Aphasia; Translations: [Aphasia] Onset: 5 Chronic Other nervous system disorders (1 source) Carpal tunnel syndrome, bilateral upper limbs; Translations: [Carpal tunnel syndrome, bilateral upper limbs] Onset: 4 Chronic Other nervous system disorders (1 source) Carpal tunnel syndrome, right upper limb; Translations: [Carpal tunnel syndrome, right upper limb] Onset: 4 Chronic Other nervous system disorders (1 source) Paiz's palsy; 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] Onset: 3 Episodic Other nervous system disorders (6 sources) Dysarthria; Translations: [Dysarthria and anarthria] 08-29-2023 Episodic Other nervous system disorders (2 sources) Dysarthria and anarthria; Translations: [Dysarthria] 08-29-2023 Episodic Other nervous system disorders (6 sources) Numbness of face; Translations: [Anesthesia of skin] 09-14-2023 Episodic Other nervous system disorders (4 sources) Disturbance in speech; Translations: [Unspecified speech disturbances] 09-17-2023 Episodic Other nervous system disorders (2 sources) Anesthesia of skin; Translations: [Facial numbness] Onset: 4 Episodic Other nervous system disorders (2 sources) Unspecified speech disturbances; Translations: [Speech disturbance, unspecified type] Onset: 4 Episodic Other nervous system disorders (5 sources) Paresthesia of right lower limb; Translations: [Paresthesia of skin] 01-02-2025 Episodic Other nervous system disorders (1 source) H/O: Disorder; Translations: [Personal history of other diseases of the nervous system and sense organs] 01-02-2025 Episodic Other nervous system disorders (1 source) Personal history of other diseases of the nervous system and sense organs; Translations: [History of carpal tunnel syndrome] Onset: 5 Episodic Other nervous system disorders (1 source) White matter disease, unspecified; Translations: [White matter abnormality on MRI of brain] Onset: 5 Episodic Other non-traumatic joint disorders (11 sources) Shoulder pain; Translations: [Pain in unspecified shoulder] 06-04-2020 Episodic Other non-traumatic joint disorders (2 sources) Pain of right wrist; Translations: [Pain in right wrist] 07-29-2024 Episodic Other non-traumatic joint disorders (3 sources) Pain in wrist; Translations: [Pain in unspecified wrist] 09-22-2024 Episodic Other non-traumatic joint disorders (5 sources) Multiple joint pain; Translations: [Pain in unspecified joint] 01-02-2025 Episodic Other non-traumatic joint disorders (1 source) Hip pain; Translations: [Pain in right hip] 01-02-2025 Episodic Other non-traumatic joint disorders (4 sources) Acute ankle pain; Translations: [Pain in right ankle and joints of right foot] 01-11-2025 Episodic Other non-traumatic joint disorders (1 source) Pain in unspecified joint; Translations: [Pain in joint, multiple sites] Onset: 5 Episodic Other non-traumatic joint disorders (1 source) Pain in right hip; Translations: [Pain in right hip] Onset: 5 Episodic Other non-traumatic joint disorders (1 source) Pain in right ankle and joints of right foot; Translations: [Acute right ankle pain] Onset: 5 Episodic Other screening for suspected conditions (not mental disorders or infectious disease) (7 sources) Magnetic resonance imaging of brain abnormal; Translations: [Other abnormal findings on diagnostic imaging of central nervous system] Onset: 5 11-14-2024 Episodic Other skin disorders (2 sources) Eruption; Translations: [Rash and other nonspecific skin eruption] 01-02-2025 Episodic Other skin disorders (1 source) Rash and other nonspecific skin eruption; Translations: [Rash and nonspecific skin eruption] Onset: Episodic Other upper respiratory disease (17 sources) Seasonal allergic rhinitis; Translations: [Other seasonal allergic rhinitis] Onset: 5 10-11-2020 Chronic Other upper respiratory infections (1 source) Chronic sinusitis, unspecified; Translations: [Unspecified sinusitis (chronic)] 03-19-2024 Chronic Phlebitis; thrombophlebitis and thromboembolism (4 sources) Chronic deep venous thrombosis; Translations: [Chronic embolism and thrombosis of unspecified deep veins of unspecified lower extremity] 04-10-2024 Chronic Pulmonary heart disease (2 sources) H/O: pulmonary embolus; Translations: [Personal history of pulmonary embolism] Onset: 5 01-02-2025 Episodic Residual codes; unclassified (3 sources) Cognitive perceptual pattern; Translations: [Unspecified symptoms and signs involving general sensations and perceptions] 09-14-2023 Episodic Residual codes; unclassified (1 source) Memory impairment; Translations: [Other amnesia] 09-14-2023 Episodic Residual codes; unclassified (1 source) Harmful pattern of use of nicotine; Translations: [Tobacco use] 11-13-2023 Episodic Residual codes; unclassified (1 source) Livedo reticularis; Translations: [Pallor] 01-02-2025 Episodic Residual codes; unclassified (1 source) Pallor; Translations: [Livedo reticularis] Onset: Episodic Residual codes; unclassified (1 source) Unspecified symptoms and signs involving general sensations and perceptions; Translations: [Sensory deficit, right] Onset: Episodic Skin and subcutaneous tissue infections (12 sources) Impetigo; Translations: [Impetigo, unspecified] 07-16-2023 Episodic Sprains and strains (20 sources) Lumbosacral strain; Translations: [Strain of muscle, fascia and tendon of lower back, initial encounter] Onset: 5 07-18-2019 Episodic Substance-related disorders (1 source) Tobacco user; Translations: [Nicotine dependence, unspecified, uncomplicated] 02-28-2024 Chronic Superficial injury; contusion (10 sources) Contusion of foot; Translations: [Contusion of right foot, initial encounter] 05-15-2022 Episodic Systemic lupus erythematosus and connective tissue disorders (1 source) Sicca syndrome, unspecified; Translations: [Sicca syndrome (HCC)] Onset: Chronic Transient cerebral ischemia (19 sources) Transient cerebral ischemia; Translations: [Transient cerebral ischemic attack, unspecified] 03-15-2023 Chronic Unclassified (3 sources) cysto insertion stent, eswl Onset: 6 01-04-2006 Unclassified (1 source) Cognitive perceptual pattern 12-05-2024 Unclassified (1 source) Acute cough; Translations: [Acute cough] Onset: Viral infection (1 source) Disease caused by 2019-nCoV; Translations: [COVID-19] 06-26-2024 Episodic Past or Other Problems Problem Classification Problem Date Documented Da te Episodic/Chronic Other injuries and conditions due to external causes (1 source) Unspecified injury of right shoulder and upper arm, initial encounter; Translations: [Injury of right shoulder, initial encounter] Onset: 05-24-2024 Episodic Other nervous system disorders (7 sources) Paresthesia; Translations: [Paresthesia of skin] Onset: 02-11-2024 10-22-2024 Episodic Other nervous system disorders (2 sources) Paresthesia of skin; Translations: [Right leg paresthesias] Onset: 02-11-2024 Episodic Other non-traumatic joint disorders (3 sources) Pain in left knee; Translations: [Pain in joint, lower leg] Onset: 04-10-2024 04-10-2024 Episodic Other non-traumatic joint disorders (2 sources) Pain in right wrist; Translations: [Right wrist pain] Onset: 07-29-2024 Episodic Other upper respiratory infections (14 sources) Sore throat symptom; Translations: [Acute sinusitis] Onset: 07-18-2024 12-08-2022 Episodic Phlebitis; thrombophlebitis and thromboembolism (8 sources) H/O: Deep vein thrombosis; Translations: [Personal history of other venous thrombosis and embolism] Onset: 04-11-2024 11-14-2023 Episodic Spondylosis; intervertebral disc disorders; other back problems (20 sources) Backache; Translations: [Dorsalgia, unspecified] Onset: 09-17-2024 04-21-2021 Episodic Results Test Name Value Interpretation Reference Range Facility CBC W Auto Differential pane l (Bld)on 01-15-2025 Basophils (Bld) [#/Vol] 0.06 10*3/uL Normal <0.11 [facility] Comment on above: Order Comment: Speci men Type: BLOOD SPECIMENOrdering Facility: [facility] Address: [address] [place] [address] Performed By: #### 5 7021-8 ####[facility] [id number] [place] [address] [place] Basophils/100 WBC (Bld) 0.6 % Normal [facility] Comment on above: Order Comment: Speci men Type: BLOOD SPECIMENOrdering Facility: [facility] Address: [address] [place] [address] Performed By: #### 5 7021-8 ####[facility] [id number] [place] [address] [place] Differential cell count method Nom (Bld) Auto Normal [facility] Comment on above: Order Comment: Speci men Type: BLOOD SPECIMENOrdering Facility: [facility] Address: [address] [place] [address] Performed By: #### 5 7021-8 ####[facility] [id number] [place] [address] [place] Eosinophils (Bld) [#/Vol] 0.09 10*3/uL Normal <0.46 [facility] Comment on above: Order Comment: Speci men Type: BLOOD SPECIMENOrdering Facility: [facility] Address: [address] [place] [address] Performed By: #### 5 7021-8 ####[facility] MILLWNCLIA [id number] [place] [address] [place] Eosinophils/100 WBC (Bld) 0.9 % Normal [facility] Comment on above: Order Comment: Speci men Type: BLOOD SPECIMENOrdering Facility: [facility] Address: [address] [place] [address] Performed By: #### 5 7021-8 ####[facility]ENTERKIMBERLIA [id number] [place] [address] [place] Erythrocyte distribution width (RBC) [Ratio] 14.0 % Normal 11.5-15.0 [facility] Comment on above: Order Comment: Speci men Type: BLOOD SPECIMENOrdering Facility: [facility] Address: [address] [place] [address] Performed By: #### 5 7021-8 ####[facility] NORTHLIA [id number] [place] [address] [place] Hematocrit (Bld) [Volume fraction] 36.6 % Normal 36.0-46.0 [facility] Comment on above: Order Comment: Speci men Type: BLOOD SPECIMENOrdering Facility: [facility] Address: [address] [place] [address] Performed By: #### 5 7021-8 ####[facility] NORTHLIA [id number] [place] [address] [place] Hemoglobin (Bld) [Mass/Vol] 12.3 g/dL Normal 11.5-15.5 [facility] Comment on above: Order Comment: Speci men Type: BLOOD SPECIMENOrdering Facility: [facility] Address: [address] [place] [address] Performed By: #### 5 7021-8 ####[facility]ERKIMBERLIA [id number] [place] [address] [place] Immature granulocytes (Bld) [#/Vol] 0.03 10*3/uL Normal <0.10 [facility] Comment on above: Order Comment: Speci men Type: BLOOD SPECIMENOrdering Facility: [facility] Address: [address] [place] [address] Performed By: #### 5 7021-8 ####[facility] NORTHLIA [id number] [place] [address] [place] Immature granulocytes/100 WBC (Bld) 0.3 % Normal [facility] Comment on above: Order Comment: Speci men Type: BLOOD SPECIMENOrdering Facility: [facility] Address: [address] [place] [address] Performed By: #### 5 7021-8 ####[facility] [id number] [place] [address] [place] Lymphocytes (Bld) [#/Vol] 3.57 10*3/uL Normal 1.00-4.00 [facility] Comment on above: Order Comment: Speci men Type: BLOOD SPECIMENOrdering Facility: [facility] Address: [address] [place] [address] Performed By: #### 5 7021-8 ####[facility] [id number] [place] [address] [place] Lymphocytes/100 WBC (Bld) 34.3 % Normal [facility] Comment on above: Order Comment: Speci men Type: BLOOD SPECIMENOrdering Facility: [facility] Address: [address] [place] [address] Performed By: #### 5 7021-8 ####[facility]ENTERNCLI [id number] [place] [address] [place] MCH (RBC) [Entitic mass] 31.4 pg Normal 26.0-34.0 [facility] Comment on above: Order Comment: Speci men Type: BLOOD SPECIMENOrdering Facility: [facility] Address: [address] [place] [address] Performed By: #### 5 7021-8 ####[facility] [place] [id number] [place] [address] [place] MCHC (RBC) [Mass/Vol] 33.6 g/dL Normal 30.5-36.0 [facility] Comment on above: Order Comment: Speci men Type: BLOOD SPECIMENOrdering Facility: [facility] Address: [address] [place], [place] [address] Performed By: #### 5 7021-8 ####[facility]ENTERLISA [id number] [place] [address] [place] MCV (RBC) [Entitic vol] 93.4 fL Normal 80.0-100.0 [facility] Comment on above: Order Comment: Speci men Type: BLOOD SPECIMENOrdering Facility: [facility] Address: [address] [place], [place] [address] Performed By: #### 5 7021-8 ####[facility]ENTERLISA [id number] [place] [address] [place] Monocytes (Bld) [#/Vol] 0.69 10*3/uL Normal <0.87 [facility] Comment on above: Order Comment: Speci men Type: BLOOD SPECIMENOrdering Facility: [facility] Address: [address] [place] [address] Performed By: #### 5 7021-8 ####[facility]ENTERNCLIA [id number] [place] [address] [place] Monocytes/100 WBC (Bld) 6.6 % Normal [facility] Comment on above: Order Comment: Speci men Type: BLOOD SPECIMENOrdering Facility: [facility] Address: [address] [place], [place] [address] Performed By: #### 5 7021-8 ####[facility] MILLTOWNCLIA [id number] [place] [address] [place] Neutrophils (Bld) [#/Vol] 5.97 10*3/uL Normal 1.45-7.50 [facility] Comment on above: Order Comment: Speci men Type: BLOOD SPECIMENOrdering Facility: [facility] Address: [address] [place] [address] Performed By: #### 5 7021-8 ####[facility] NORTHLIA [id number] [place] [address] [place] Neutrophils/100 WBC (Bld) 57.3 % Normal [facility] Comment on above: Order Comment: Speci men Type: BLOOD SPECIMENOrdering Facility: [facility] Address: [address] [place] [address] Performed By: #### 5 7021-8 ####[facility]THL[facility] [id number] [place] [address] [place] Nucleated RBC (Bld) [#/Vol] 10*3/uL Normal <0.01 [facility] Comment on above: Order Comment: Speci men Type: BLOOD SPECIMENOrdering Facility: [facility] Address: [address] [place] [address] Performed By: #### 5 7021-8 ####[facility] [id number] [place] [address] [place] Nucleated RBC/100 WBC (Bld) [Ratio] 0.0 /100 WBC Normal [facility] Comment on above: Order Comment: Speci men Type: BLOOD SPECIMENOrdering Facility: [facility] Address: [address] [place] [address] Performed By: #### 5 7021-8 ####[facility]ENTERNCLIA [id number] [place] [address] [place] Platelet mean volume (Bld) [Entitic vol] 9.7 fL Normal 9.0-12.7 [facility] Comment on above: Order Comment: Speci men Type: BLOOD SPECIMENOrdering Facility: [facility] Address: [address] [place] [address] Performed By: #### 5 7021-8 ####[facility]ENTERNCJAKEA [id number] [place] [address] [place] Platelets (Bld) [#/Vol] 191 10*3/uL Normal 150-400 [facility] Comment on above: Order Comment: Speci men Type: BLOOD SPECIMENOrdering Facility: [facility] Address: [address] [place] [address] Performed By: #### 5 7021-8 ####[facility]ERNCLIA [id number] [place] [address] [place] RBC (Bld) [#/Vol] 3.92 10*6/uL Normal 3.90-5.20 [facility] Comment on above: Order Comment: Speci men Type: BLOOD SPECIMENOrdering Facility: [facility] Address: [address] [place] [address] Performed By: #### 5 7021-8 ####[facility]ERNCLIA [id number] [place] [address] [place] WBC (Bld) [#/Vol] 10.41 10*3/uL Normal 3.70-11.00 [facility] Comment on above: Order Comment: Speci men Type: BLOOD SPECIMENOrdering Facility: [facility] Address: [address] [place] [address] Performed By: #### 5 7021-8 ####[facility]ENTERNCLIA [id number] [place] [address] [place] CNOVon 01-15-2025 CNOV Office Visit (WSTR ) CODY SANTANA ([id number]) 1985 F Date Time Provider Department 01/15/25 2:00 PM PRAMOD GOMEZ WS During your visit today, we recorded the following information about you: Pulse Respiration Blood pressure 81/minute 17/minute 118/74 Pramod Gomez PA-C 01/15/2025 4:34 PM Signed Rheumatology Clinic Visit January 15, 2025 Last seen: 01/02/2025 (with Pramod Gomez) CC: Consult follow up, discuss results and next steps. HPI: Cody Santana is a 39 year old female who follows with rheumatology for joint pain, and abnormal labs. Follow up from consult Initial Consultation 01/02/25 - Presented with history of longstanding R Hip/groin/buttocks/knee pain with significant response to prednisone. Also with sicca syndrome, Fatigue, IBS symptoms, heartburn, - History of DVT and PE x2 and - Reported history of Lupus anticoagulant versus Facor V leidin. Testing was indeterminate due to Anti-Xa inhibitor presence but was negative for anti-cardiolipin antibody. Hematology advised lifelong anticoagulation - Previously negative Alfonzo at [facility], external reportedly positive without titer, unsure if done by IFA - Repeat ALFONZO low positive (1:160 nuclear homogenous, 1:160 Cytoplasmic fine speckled), low + SSA (1.8), neg dsDNA, neg Sm Ab, Normal C3/C4. RF/CCP negative, UA negative for blood/proteinuria. Protein creat ratio elevated secondary to low creatinine. - Imaging: XR hip negative, XR SI no ankylosis or erosive disease, XR Knee normal., no fracture, dislocation erosion, or effusion. XR Ankle no acute abnormality. Current Rheum treatment: N/A Past treatments: Prednisone intermittently short courses. Current clinical: Since last visit, her hip is feeling better. She just went to urgent care for her R ankle that was having pain. Prednisone helped her ankle pain some, but it still is very sore, but it won't feel like its giving out on her. Also noticing she doesn't sweat much. Only areas she sweats are in bra and underwear region. Monitoring: Labs 01/03 labs reviewed, OK Blood TB None on file Last Bone Density: None on file Last Uric acid No data to display Sed rate/CRP Latest Ref Rng AND Units 01/02/2025 ESR, WSR WSR 0 - 20 mm/hr 17 Latest Ref Rng AND Units 01/02/2025 CRP CRP <0.9 mg/dL <0.3 Review Of Systems: Review of Systems CONSTITUTION: Positive for: Recent weight change Negative for: Fever HEENT: Positive for: Dry mouth Negative for: Nosebleeds, Mouth sores and Trouble swallowing RESPIRATORY: Negative for: Cough, Shortness of breath and Pain with breathing GASTROINTESTINAL: Positive for: Diarrhea and Heartburn Negative for: Melena and Abdominal pain MUSCULOSKELETAL: Positive for: Arthralgias, Myalgias, Muscle weakness, Joint swelling and Morning Joint Stiffness NEUROLOGICAL: Positive for: Numbness and Memory loss Negative for: Headaches SKIN: Positive for: Rash and Sun Sensitive Rash Negative for: Skin changes, Hair loss and Nail changes EYES: Negative for: Eye pain, Eye redness and Eye dryness CARDIOVASCULAR: Negative for: Chest pain and Leg swelling GENITOURINARY: Negative for: Dysuria and Hematuria HEMATOLOGIC/LYMPHATIC: Negative for: Swollen glands RAPID 3: DISEASE ACTIVITY: Weighed Score Levels: 0 - 1: Near Remission 1.3 - 2.0: Low Severity 2.3 - 4.0: Moderate Severity 4.3 - 10.0: High Severity 12/04/2024 12/26/2024 RAPID-3 Weighed Score RAPID 3 Weighed Score 3 (Moderate severity ) 3 (Moderate severity ) PROMIS Assessments 12/04/2024 12/26/2024 01/08/2025 PROMIS Assessments Physical Health Percentile 15 15 15 7 Mental Health Percentile 26 26 26 34 Pain Score 4 4 4 3 Pain Interference Percentile 3 4 Fatigue Percentile 3 5 Physical Function Percentile 4 4 Multiple values from one day are sorted in reverse-chronological order PAST MEDICAL HISTORY Diagnosis Date Bipolar affective (HCC) DVT (deep venous thrombosis) (HCC) Migraine Pulmonary embolism (HCC) PAST SURGICAL HISTORY Procedure Laterality Date REVISE MEDIAN N/CARPAL TUNNEL SURG Bilateral 2016 Family history: Father with RA. No known SLE, IBD, PsO Great grandmother Hardin Palsy SOCIAL HISTORY: Currently smoking less than 1 pack per day ETOH None Marijuana - none Single 3 kids Working at [employer] Tobacco: Tobacco Use: High Risk (01/02/2025) Patient History Smoking Tobacco Use: Every Day Smokeless Tobacco Use: Never Passive Exposure: Not on file ETOH: Alcohol Use: Not on file Allergies: ALLERGIES Allergen Reactions Keflex [Cephalexin] Other: See Comments Achy, weak Percocet [Oxycodone* Other: See Comments Nose itch Medications: Current Outpatient Medications Medication Sig predniSONE (DELTASONE) 50 mg Take 1 tablet by mouth once daily for 5 days. chlorzoxazone (PARAFON FORTE DSC) 5 (more content not included)... Normal [facility] Comprehensive metabolic 2000 panelon 01-15-2025 Albumin [Mass/Vol] 4.4 g/dL Normal 3.9-4.9 [facility] Comment on above: Order Comment: Speci men Type: BLOOD SPECIMENOrdering Facility: [facility] Address: [address] [place] [address] Performed By: #### 2 4323-8 ####[facility] [id number] [place] [address] [place] ALP [Catalytic activity/Vol] 42 U/L Normal 34-123 [facility] Comment on above: Order Comment: Speci men Type: BLOOD SPECIMENOrdering Facility: [facility] Address: [address] [place] [address] Performed By: #### 2 4323-8 ####[facility] [id number] [place] [address] [place] ALT [Catalytic activity/Vol] 13 U/L Normal 7-38 [facility] Comment on above: Order Comment: Speci men Type: BLOOD SPECIMENOrdering Facility: [facility] Address: [address] [place] [address] Performed By: #### 2 4323-8 ####[facility]ITAL[facility] [id number] [place] [address] [place] Anion gap [Moles/Vol] 10 mmol/L Normal 8-15 [facility] Comment on above: Order Comment: Speci men Type: BLOOD SPECIMENOrdering Facility: [facility] Address: [address] [place] [address] Performed By: #### 2 4323-8 ####[facility] MILLWNCLIA [id number] [place] [address] [place] AST [Catalytic activity/Vol] 14 U/L Normal 13-35 [facility] Comment on above: Order Comment: Speci men Type: BLOOD SPECIMENOrdering Facility: [facility] Address: [address] [place] [address] Performed By: #### 2 4323-8 ####[facility] NORTHLIA [id number] [place] [address] [place] Bilirubin [Mass/Vol] 0.3 mg/dL Normal 0.2-1.3 [facility] Comment on above: Order Comment: Speci men Type: BLOOD SPECIMENOrdering Facility: [facility] Address: [address] [place] [address] Performed By: #### 2 4323-8 ####[facility]CL[facility] [id number] [place] [address] [place] Calcium [Mass/Vol] 9.1 mg/dL Normal 8.5-10.2 [facility] Comment on above: Order Comment: Speci men Type: BLOOD SPECIMENOrdering Facility: [facility] Address: [address] [place] [address] Performed By: #### 2 4323-8 ####[facility] [id number] [place] [address] [place] Chloride [Moles/Vol] 111 mmol/L High 98-107 [facility] Comment on above: Order Comment: Speci men Type: BLOOD SPECIMENOrdering Facility: [facility] Address: [address] [place] [address] Performed By: #### 2 4323-8 ####[facility] [id number] [place] [address] [place] CO2 [Moles/Vol] 18 mmol/L Low 22-30 [facility] Comment on above: Order Comment: Speci men Type: BLOOD SPECIMENOrdering Facility: [facility] Address: [address] [place] [address] Performed By: #### 2 4323-8 ####[facility] [id number] [place] [address] [place] Creatinine [Mass/Vol] 0.85 mg/dL Normal 0.58-0.96 [facility] Comment on above: Order Comment: Speci men Type: BLOOD SPECIMENOrdering Facility: [facility] Address: [address] [place] [address] Performed By: #### 2 4323-8 ####[facility] [id number] [place] [address] [place] eGFRcr SerPlBld CKD-EPI 2020 90 mL/min/1.73m??? Normal >=60 [facility] Comment on above: Order Comment: Speci men Type: BLOOD SPECIMENOrdering Facility: [facility] Address: [address] [place] [address] Result Comment: Jasmin mated Glomerular Filtration Rate (eGFR) is calculated using the 2020 CKD-EPI creatinine equation. This equation utilizes serum creatinine, sex, and age as parameters. The creatinine assay has traceable calibration to isotope dilution-mass spectrometry. Refer to KDIGO guidelines for clinical interpretation. In patients with unstable renal function, e.g. those with acute kidney injury, the eGFR may not accurately reflect actual GFR. Performed By: #### 2 4323-8 ####[facility] NORTH[facility]IA [id number] [place] [address] [place] Glucose [Mass/Vol] 92 mg/dL Normal 74-99 [facility] Comment on above: Order Comment: Speci men Type: BLOOD SPECIMENOrdering Facility: [facility] Address: [address] [place], [place] [address] Result Comment: The [place] [employer] (ADA) provides guidance for cutoff values for fasting glucose and random glucose. The ADA defines fasting as no caloric intake for at least 8 hours. Fasting plasma glucose results between 100 to 125 mg/dL indicate increased risk for diabetes (prediabetes). Fasting plasma glucose results greater than or equal to 126 mg/dL meet the criteria for diagnosis of diabetes. In the absence of unequivocal hyperglycemia, results should be confirmed by repeat testing. In a patient with classic symptoms of hyperglycemia or hyperglycemic crisis, random plasma glucose results greater than or equal to 200 mg/dL meet the criteria for diagnosis of diabetes. Reference: Standards of Medical Care in Diabetes 2016, [place] [employer]. Diabetes Care. 2016.39(Suppl 1). Performed By: #### 2 4323-8 ####[facility] MILLTOWNCLIA [id number] [place] [address] [place] Potassium [Moles/Vol] 3.9 mmol/L Normal 3.7-5.1 [facility] Comment on above: Order Comment: Speci men Type: BLOOD SPECIMENOrdering Facility: [facility] Address: [address] [place] [address] Performed By: #### 2 4323-8 ####[facility] MILLTOWNCLIA [id number] [place] [address] [place] Protein [Mass/Vol] 7.3 g/dL Normal 6.3-8.0 [facility] Comment on above: Order Comment: Speci men Type: BLOOD SPECIMENOrdering Facility: [facility] Address: [address] [place], [place] [address] Performed By: #### 2 4323-8 ####[facility] MILLWNCLIA [id number] [place] [address] [place] Sodium [Moles/Vol] 139 mmol/L Normal 136-144 [facility] Comment on above: Order Comment: Speci men Type: BLOOD SPECIMENOrdering Facility: [facility] Address: [address] [place] [address] Performed By: #### 2 4323-8 ####[facility] JESÚS ELIZABETH [id number] [place] [address] [place] Urea nitrogen [Mass/Vol] 13 mg/dL Normal 7-21 [facility] Comment on above: Order Comment: Speci men Type: BLOOD SPECIMENOrdering Facility: [facility] Address: [address] [place] [address] Performed By: #### 2 4323-8 ####[facility] JESÚS ELIZABETH [id number] [address] [place] CNOVon 01-11-2025 CNOV Office Visit (WOUCA) CARLOS MANUEL SANTANAKATE Webster ([id number]) 1985 F Date Time Provider Department 01/11/25 2:30 PM JAY DELGADO During your visit today, we recorded the following information about you: Temperature Pulse Respiration Blood pressure 97.4 degrees 70/minute 18/minute 118/78 Weight 90.5 kg Jay Delgado APRN.PLUCK SEPARATOR 01/11/2025 3:17 PM Signed Subjective Cody Webster Esther is a 39 year old female. HPI Patient has a history of rheumatoid arthritis and chronic pain from the waist down. She notes that about 5 days ago she began to notice increased pain in the right ankle along with some swelling and ecchymosis. She denies any trauma or injury. Denies any nausea vomiting or fever. Review of Systems As above Objective BP 118/78 Pulse 70 Temp 36.3 ?C (97.4 ?F) (Tympanic) Resp 18 Wt 90.5 kg (199 lb 8.3 oz) LMP (LMP Unknown) SpO2 99% BMI 35.34 kg/m? Physical Exam Vitals and nursing note reviewed. Constitutional: General: She is not in acute distress. Appearance: Normal appearance. She is not ill-appearing. HENT: Head: Normocephalic. Pulmonary: Effort: Pulmonary effort is normal. Musculoskeletal: General: Normal range of motion. Comments: Diffuse tenderness throughout the right ankle extending into the right heel. No obvious swelling, ecchymosis, or deformities noted Skin: General: Skin is warm. Neurological: General: No focal deficit present. Mental Status: She is alert and oriented to person, place, and time. Psychiatric: Mood and Affect: Mood normal. Behavior: Behavior normal. ASSESSMENT/PLAN: 1. Acute right ankle pain - ICD9: 719.47, 338.19, ICD10: M25.571 X-ray of the right ankle shows no acute abnormalities. Discussed with patient that symptoms may be related to a sprain/strain versus her rheumatoid arthritis. Patient will continue to use her home Tylenol and she was also given 5 days of prednisone. 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 - XR ANKLE GENERAL 3V AP/LAT/OBL RIGHT - PREDNISONE 50 MG TABLET Jay Delgado APRN.CNP Allergies As of Date: 01/11/2025 Noted Allergy Reaction KEFLEX (CEPHALEXIN) 09/14/2023 14 - Other: See Comments Comments: Achy, weak PERCOCET (OXYCODONE-ACETAMINOPHE N)09/14/2023 14 - Other: See Comments Comments: Nose itch Date Reviewed: 01/11/2025 Reviewed by: Jay Delgado APRN.CNP - Fully Assessed Reason for Visit: right ankle hurts [Other] Cmt: X 5 days-cannot recall an injury Primary Visit Diagnosis:Acute right ankle pain [M25.571] Order(s):XR ANKLE GENERAL 3V AP/LAT/OBL RIGHT [[id number]] Order #: [id number] FUTURE predniSONE (DELTASONE) 50 mgTake 1 tablet by mouth once daily for 5 days.Disp: 5 tabletRfl: 0 Prescriptions as of 01/11/2025 - predniSONE (DELTASONE) 50 mg Take 1 tablet by mouth once daily for 5 days. - chlorzoxazone (PARAFON FORTE DSC) 500 mg tablet Take 1 tablet (500 mg) by mouth four times a day until headache free for 24 hours or take for full 5 days. - erenumab-aooe (AIMOVIG AUTOINJECTOR) 70 mg/mL auto-injector Inject 1 mL subcutaneously once every month. - lidocaine (LIDODERM) 5 % Apply 1 Patch as directed every 24 hours. - methocarbamol (ROBAXIN) 500 mg tablet Take 500 mg by mouth four times daily. - rimegepant (NURTEC ODT) 75 mg disintegrating tablet Take 1 tablet by mouth once daily as needed (Migraine). - albuterol HFA (PROVENTIL HFA, VENTOLIN HFA) 90 mcg/actuation inhaler Inhale 2 Puffs as instructed every 6 hours as needed for wheezing/shortness of breath. - medroxyPROGESTERone (DEPO-PROVERA) 150 mg/mL injection Inject 150 mg intramuscularly every 12 weeks. - ELIQUIS 5 mg tab(s) Take 1 tablet by mouth every 12 hours. - cetirizine (ZYRTEC) 10 mg tablet Take 10 mg by mouth once daily. - cholecalciferol (VITAMIN D3) 1,000 unit tab tablet Take 2 tablets by mouth every afternoon. - citalopram (CELEXA) 40 mg tablet Take 1 tablet by mouth every afternoon. - famotidine (PEPCID) 40 mg tablet TAKE 1 TABLET BY MOUTH TWICE DAILY WITH SUPPER AND AT BEDTIME - lamoTRIgine (LAMICTAL) 200 mg tablet TAKE 1 TABLET BY MOUTH ONCE DAILY IN THE MORNING - montelukast (SINGULAIR) 10 mg tablet Take 1 tablet by mouth every afternoon. - nystatin (MYCOSTATIN) powder APPLY POWDER TOPICALLY TWICE TO THREE TIMES DAILY TO GROIN AREA DIRECTED - topiramate (TOPAMAX) 200 mg tablet Take 200 mg by mouth two times a day. - haloperidol (HALDOL) 5 mg tablet Take 5 mg by mouth as needed (for anxiety). 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 Normal [facility] XR ANKLE 3V AP/LAT/OBL RTon 01-11-2025 XR ANKLE 3V AP/LAT/OBL RT * * *Final Report* * * DATE OF EXAM: Jan 11 2025 2:56PM WOX 5297 - XR ANKLE 3V AP/LAT/OBL RT / PROCEDURE REASON: Acute right ankle pain * * * * Physician Interpretation * * * * PROCEDURE: Right ankle INDICATION: Acute right ankle pain . 5 days of pain throughout the ankle extending into the heel with no known traum TECHNIQUE: XR ANKLE 3V AP/LAT/OBL RT COMPARISON: None FINDINGS: No acute fracture or dislocation. Ankle mortise is symmetric. No calcaneal spur. No significant soft tissue swelling. IMPRESSION: No acute abnormality Wood Preparation Supervisor: PSCB Transcribe Date/Time: Jan 11 2025 3:05P Dictated by : YON HURD MD This examination was interpreted and the report reviewed and electronically signed by: YON HURD MD on Jan 11 2025 3:06PM EST [id number] Normal [facility] XR Ankle - right AP and Late ral and obliqueon 01-11-2025 IMPRESSION: No acute abnormality Wood Preparation Supervisor: PSCB Transcribe Date/Time: Jan 11 2025 3:05P Dictated by : YON HURD MD This examination was interpreted and the report reviewed and electronically signed by: YON HURD MD on Jan 11 2025 3:06PM EST DIVISION OF RADIOLOGY * * *Final Report* * * DATE OF EXAM: Jan 11 2025 2:56PM WOX 5297 - XR ANKLE 3V AP/LAT/OBL RT / PROCEDURE REASON: Acute right ankle pain * * * * Physician Interpretation * * * * PROCEDURE: Right ankle INDICATION: Acute right ankle pain . 5 days of pain throughout the ankle extending into the heel with no known traum TECHNIQUE: XR ANKLE 3V AP/LAT/OBL RT COMPARISON: None FINDINGS: No acute fracture or dislocation. Ankle mortise is symmetric. No calcaneal spur. No significant soft tissue swelling. DIVISION OF RADIOLOGY Provider, Gini Arredondo - 01/11/2025 * * *Final Report* * * DATE OF EXAM: Jan 11 2025 2:56PM WOX 5297 - XR ANKLE 3V AP/LAT/OBL RT / PROCEDURE REASON: Acute right ankle pain * * * * Physician Interpretation * * * * PROCEDURE: Right ankle INDICATION: Acute right ankle pain . 5 days of pain throughout the ankle extending into the heel with no known traum TECHNIQUE: XR ANKLE 3V AP/LAT/OBL RT COMPARISON: None FINDINGS: No acute fracture or dislocation. Ankle mortise is symmetric. No calcaneal spur. No significant soft tissue swelling. IMPRESSION IMPRESSION: No acute abnormality Wood Preparation Supervisor: [facility] Transcribe Date/Time: Jan 11 2025 3:05P Dictated by : YON HURD MD This examination was interpreted and the report reviewed and electronically signed by: YON HURD MD on Jan 11 2025 3:06PM [facility] Radiology Study observation (narrative) [facility] XR Ankle - right AP and Late ral and obliqueOrdered By: Cc Provider on 01-11-2025 [facility] Donna 01-08-2025 KOLEN Telephone (JUSTEN) CODY SANTANA ([id number]) 1985 F Date Time Provider Department 01/08/25 ANTWON CALDERON During your visit today, we recorded the following information about you: Frances Sanches, SHIRLEY 01/08/2025 2:12 PM Signed ----- Message from Torres Barreto sent at 01/08/2025 11:56 AM EDT ----- Regarding: Rash, spreading Patient has been identified by name and Date of : Yes Patient: Cody Santana Date of : 1985 Provider for this encounter : Dr. Antwon Calderon Reason for call: Triage Was an appointment scheduled: Yes: Date/Time: 03/21/25, 1245pm Reason for requesting visit (RFV/signs and symptoms/diagnosis) : Rash, Started on arm, has spread to other arm, back and scalp Person calling: self Return call to: self Call patient at: on cell and , it is OK to leave message [phone] (home) [phone] (cell) Payor: [employer] / Plan: [facility] MEDICAID / Product Type: Medicaid / Frances Grant RN 01/08/2025 2:13 PM Signed Not established with any provider May schedule sooner with any available provider Allergies As of Date: 01/08/2025 Noted Allergy Reaction KEFLEX (CEPHALEXIN) 09/14/2023 14 - Other: See Comments Comments: deb Esquivel PERCOCET (OXYCODONE-ACETAMINOPHE N)09/14/2023 14 - Other: See Comments Comments: Nose itch Date Reviewed: 01/02/2025 Reviewed by: Heidi Lu RN - Fully Assessed Prescriptions as of 01/08/2025 - chlorzoxazone (PARAFON FORTE DSC) 500 mg tablet Take 1 tablet (500 mg) by mouth four times a day until headache free for 24 hours or take for full 5 days. - erenumab-aooe (AIMOVIG AUTOINJECTOR) 70 mg/mL auto-injector Inject 1 mL subcutaneously once every month. - lidocaine (LIDODERM) 5 % Apply 1 Patch as directed every 24 hours. - methocarbamol (ROBAXIN) 500 mg tablet Take 500 mg by mouth four times daily. - rimegepant (NURTEC ODT) 75 mg disintegrating tablet Take 1 tablet by mouth once daily as needed (Migraine). - albuterol HFA (PROVENTIL HFA, VENTOLIN HFA) 90 mcg/actuation inhaler Inhale 2 Puffs as instructed every 6 hours as needed for wheezing/shortness of breath. - medroxyPROGESTERone (DEPO-PROVERA) 150 mg/mL injection Inject 150 mg intramuscularly every 12 weeks. - ELIQUIS 5 mg tab(s) Take 1 tablet by mouth every 12 hours. - cetirizine (ZYRTEC) 10 mg tablet Take 10 mg by mouth once daily. - cholecalciferol (VITAMIN D3) 1,000 unit tab tablet Take 2 tablets by mouth every afternoon. - citalopram (CELEXA) 40 mg tablet Take 1 tablet by mouth every afternoon. - famotidine (PEPCID) 40 mg tablet TAKE 1 TABLET BY MOUTH TWICE DAILY WITH SUPPER AND AT BEDTIME - lamoTRIgine (LAMICTAL) 200 mg tablet TAKE 1 TABLET BY MOUTH ONCE DAILY IN THE MORNING - montelukast (SINGULAIR) 10 mg tablet Take 1 tablet by mouth every afternoon. - nystatin (MYCOSTATIN) powder APPLY POWDER TOPICALLY TWICE TO THREE TIMES DAILY TO GROIN AREA DIRECTED - topiramate (TOPAMAX) 200 mg tablet Take 200 mg by mouth two times a day. - haloperidol (HALDOL) 5 mg tablet Take 5 mg by mouth as needed (for anxiety). 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 *01/02/2025 Migraine headache [G43.909] 12/08/2022 Paresthesia [R20.2] 02/11/2024 Seasonal allergic rhinitis [J30.2] 01/02/2025 Encounter Status:Closed by FRANCES SANCHES on 01/08/25 Normal [facility] ALFONZO BY IFA SCREENon 01-03-20 ALFONZO PATTERN 2 Cytoplasmic fine speckled Normal [facility] Comment on above: Order Comment: Speci men Type: BLOOD SPECIMENOrdering Facility: [facility] Address: [address] [place] [address] Performed By: #### A BENITO ####[facility] LABCLIA [id number] [place] [address] [place] ALFONZO TITER 2 1:160 Normal [facility] Comment on above: Order Comment: Speci men Type: BLOOD SPECIMENOrdering Facility: [facility] Address: [address] [place] [address] Performed By: #### A NAIFS ####[facility] LABIA [id number] [place] [address] [place] Nuclear Ab pattern (S) [Interp] Nuclear homogeneous Normal [facility] Comment on above: Order Comment: Speci men Type: BLOOD SPECIMENOrdering Facility: [facility] Address: [address] [place] [address] Performed By: #### A NAIFS ####[facility] LABIA [id number] [place] [address] [place] Nuclear Ab Ql (S) Positive Abnormal Negative [facility] Comment on above: Order Comment: Speci men Type: BLOOD SPECIMENOrdering Facility: [facility] Address: [address] [place] [address] Result Comment: Anti -nuclear antibody test is used as an aid in diagnosis of systemic autoimmune diseases. Where positive and clinically warranted, follow-up using disease-specific testing is recommended. Low positive titers are not uncommon with advanced age, certain chronic infections, and malignancies among others. Test methodology: Indirect fluorescence immunoassay (IFA) using HEp-2 cells. 1:160 Performed By: #### A NAIFS ####[facility] [id number] [place] [address] [place] C3 SerPl-mCncon 01-02-2025 Complement C3 [Mass/Vol] 124 mg/dL Normal 86-166 [facility] Comment on above: Order Comment: Speci [facility] Type: BLOOD SPECIMENOrdering Facility: [facility] Address: [address] [place] [address] Performed By: #### 4 485-9, 4498-2, 1988-5, 57220-0 ####[facility] LABIA [id number] [place] [address] [place] C4 SerPl-mCncon 01-02-2025 Complement C4 [Mass/Vol] 16 mg/dL Normal 13-46 [facility] Comment on above: Order Comment: Speci men Type: BLOOD SPECIMENOrdering Facility: [facility] Address: [address] [place] [address] Performed By: #### 4 485-9, 4498-2, 1987-, 79784-3 ####[facility] LABCLIA [id number] [address] OF [facility] CNOVon 01-02-2025 CNOV Office Visit (RHWSTR ) CODY SANTANA ([id number]) 1985 F Date Time Provider Department 01/02/25 2:00 PM PRAMOD GOMEZ RHWSTR During your visit today, we recorded the following information about you: Pulse Respiration Blood pressure Weight 79/minute 17/minute 110/64 90.1 kg Pramod Gomez PA-C 01/02/2025 4:28 PM Signed Rheumatology CONSULTATION Date of Service: 01/02/2025 Patient: Cody Santana Medical Record: [id number] Primary Care Physician: Liliane Kunz Last Rheumatology visit: None at [facility] Referring Provider: Local orthopedist, no referral on file, patient unsure provider Recording using [employer] software for draft documentation of the visit was discussed with the patient/authorized vendor representatives; all questions welcomed and answered. Patient/authorized vendor representatives agreed to proceed History of Present Illness Review of Chart: - History of DVT and PE x2 and - Reported history of Lupus anticoagulant versus Facor V leidin. Testing was indeterminate due to current se of - Repeat Lupus anticoagulant testing was inconclusive due to Anti-Xa inhibitor presence but was negative for anti-cardiolipin antibody. - Previously negative Alfonzo, external reportedly positive without titer, unsure if done by IFA Outside records: - 02/21/24 external labs with RF negative, ALFONZO positive (no titer), Sed rate/CRP normal, uric acid normal Per Patient today: She is being referred for positive blood test that shows autoimmune disease. Exact test and records are not with her today. Joints affected: bilateral ankles, R knee, R>Wrist, Also R hip, outer buttocks into groin, and then down to other knee Joint swelling: ankles constantly swollen. R knee pain , Wrist swells as well. Joint pain has been going on for years Wrist pain dx CTS at age 22 - deferred surgery until 28. Had surgery which helped symptoms. Then started having wrist pain and CTS symptoms again - didn't want to do surgery again. Recommended PT, tried braces at night and at work, Ice/heat. Multiple Injections in R wrist. She has done X-rays no MRI. AM stiffness: loosens up in 20-30 minutes. Also notes geling phenomenon after immobility primarily in her hip Cannot take Eliquis due to lupus anticoagulant. Muscle relaxers occasionally Tylenol occasional History of prednisone use, she feels amazing but symptoms return after discontinuation. Cody Santana is a 39-year-old female with a history of DVT, PE, migraines, bipolar disorder, depression, and hypothyroidism, presenting for evaluation of joint pain and swelling, and possible autoimmune disease. Cody Webster reports a current pain level of 5 (Generalized). She describes the pain as Aching, Dull. The pain is Continuous, and has lasted for 1 Years. Interventions tried include Medication, Relaxation, Cold, Heat, Positioning, Splinting. Her most recent ALFONZO was negative (06/23/2023). HPI per AI: Cody was referred for evaluation after blood tests suggested a possible autoimmune disease, with a concern for RA. She reports chronic joint pain and swelling primarily affecting her ankles, right knee, and wrists, with symptoms worsening over the past week. She notes that her right knee and both ankles are constantly swollen, with increased swelling correlating with increased pain. She also experiences stiffness in the mornings lasting 20-30 minutes and stiffness after periods of inactivity, particularly during work breaks, which exacerbates her right hip pain. Cody has a history of carpal tunnel syndrome diagnosed at age 22, with improvement after surgery at age 28. However, wrist pain recurred about 1-1.5 years ago. She has tried various treatments, including physical therapy, braces, ice, heat, and injections, with limited relief. She has not had MRIs but has had X-rays, including a right wrist X-ray in July 2024 showing ossification. She reports right hip pain radiating to the groin, buttocks, and knee, worsened by sitting and inactivity. She cannot take NSAIDs but uses muscle relaxers and has tried prednisone, which provides significant relief while taking it. She experiences fatigue, dry mouth, and dry eyes, and has seasonal allergies. She reports alternating constipation and diarrhea, heartburn managed with medication, and occasional headaches related to her migraine injection schedule. She denies hemoptysis, but experiences dyspnea with stairs. Cody reports numbness and tingling in her legs, more pronounced on the right, and difficulty with proprioception in her left leg, leading to frequent near-falls. She has seen neurology, who ruled out MS. 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 She is a current smoker, consuming approximately one pack per day, and denies alcoh (more content not included)... Normal [facility] CRP SerPl-ncon 01-02-2025 CRP [Mass/Vol] mg/L Normal <0.9 [facility] Comment on above: Order Comment: Speci men Type: BLOOD SPECIMENOrdering Facility: [facility] Address: [address] [place] [address] Performed By: #### 4 485-9, 4498-2, 1987-10, 07116-4 ####[facility] LABCLIA [id number] [place] [address] [place] Centromere Ab IF Ql (S)on Centromere Ab Qn (S) <0.2 Normal <1.0 [facility] Comment on above: Order Comment: Modestoi jean Type: BLOOD SPECIMENOrdering Facility: [facility] Address: [address] [place] [address] Result Comment: Anti -centromere antibody is used as in aid in diagnosis of systemic sclerosis. Clinical correlation is required. Test Methodology: Multiplex flow immunoassay. Performed By: #### 2 9374-6, 38291-9, 90748-7, 93816-4, 77667-9, 00229-7, 71282-8, 94997-6 ####[facility] LABCLIA [id number] [address] [place] [address] [place] CENTROMERE AB QUAL Negative Normal Negative [facility] Comment on above: Order Comment: Speci men Type: BLOOD SPECIMENOrdering Facility: [facility] Address: [address] [place] [address] Performed By: #### 2 9374-6, 82374-0, 88204-2, 39208-7, 60690-0, 22384-7, 06966-2, 14173-7 ####[facility] LABCLIA [id number] [address], [place] [address] [place] Chromatin Ab Qnon 01-02-2025 CHROMATIN AB QUAL Negative Normal Negative [facility] Comment on above: Order Comment: Speci men Type: BLOOD SPECIMENOrdering Facility: [facility] Address: [address] [place] [address] Performed By: #### 2 9374-6, 90459-3, 52661-7, 34820-9, 15982-2, 71113-9, 34290-1, 18926-5 ####[facility] LABCLIA [id number] [address], [place] [address] [place] Chromatin Ab SerPl-aCncon Chromatin Ab Qn <0.2 Normal <1.0 [facility] Comment on above: Order Comment: Speci men Type: BLOOD SPECIMENOrdering Facility: [facility] Address: [address] [place] [address] Result Comment: Test Methodology: Multiplex flow immunoassay. Performed By: #### 2 9374-6, 90120-0, 87760-9, 77084-1, 31032-3, 16990-9, 87233-7, 48496-4 ####[facility] LABCLIA [id number] [address] [place] Cyclic citrullinated peptide IgG Qnon 01-02-2025 CCP ANTIBODY IGG QUALITATIVE Negative Normal Negative [facility] Comment on above: Order Comment: Speci men Type: BLOOD SPECIMENOrdering Facility: [facility] Address: [address] [place] [address] Performed By: #### 3 3935-8 ####[facility] LABIA [id number] [address] [place] DNA double strand Ab IA Qn ( S)on 01-02-2025 DNA ANTIBODY 32 IU/mL Normal <=200 [facility] Comment on above: Order Comment: Speci men Type: BLOOD SPECIMENOrdering Facility: [facility] Address: [address] [place] [address] Result Comment: Nega tive: <200 IU/mL Equivocal: 201-300 IU/mL Moderate Positive: 301-800 IU/mL Strong Positive: >801 IU/mL Performed By: #### 3 2677-7 ####[facility] LABIA [id number] [address] [place] DNA ANTIBODY QUALITATIVE INTERPRETATION Negative Normal Negative [facility] Comment on above: Order Comment: Speci men Type: BLOOD SPECIMENOrdering Facility: [facility] Address: [address] [place] [address] Performed By: #### 3 2677-7 ####[facility] LABIA [id number] [place] [address] [place] KARYN Jo1 Ab Ser-aCncon 2024 Linette-1 extractable nuclear Ab Qn (S) <0.2 Normal <1.0 [facility] Comment on above: Order Comment: Speci men Type: BLOOD SPECIMENOrdering Facility: [facility] Address: [address] [place] [address] Performed By: #### 2 9374-6, 98761-2, 03089-8, 43175-1, 96638-4, 02303-7, 92513-9, 74539-8 ####[facility] LABIA [id number] [place] [address] [place] KARYN CASKET TRIMMER Ab Ser-aCncon 2024 Ribonucleoprotein extractable nuclear Ab Qn (S) <0.2 Normal <1.0 [facility] Comment on above: Order Comment: Speci men Type: BLOOD SPECIMENOrdering Facility: [facility] Address: [address] [place] [address] Performed By: #### 2 9374-6, 89235-4, 94841-9, 64876-9, 55873-8, 46293-2, 67285-7, 29193-3 ####[facility] LABIA [id number] [place] [address] [place] KARYN SM IgG Ser-aCncon 2024 Roach extractable nuclear IgG Qn (S) <0.2 Normal <1.0 [facility] Comment on above: Order Comment: Speci men Type: BLOOD SPECIMENOrdering Facility: [facility] Address: [address] [place] [address] Performed By: #### 2 9374-6, 99668-5, 68712-1, 71435-0, 55971-6, 55115-1, 08191-1, 70871-3 ####[facility] [id number] [place] [address] [place] KARYN SS-A Ab Ser-aCncon 01-02 Sjogrens syndrome-A extractable nuclear Ab Qn (S) 1.8 AI High <1.0 [facility] Comment on above: Order Comment: Speci men Type: BLOOD SPECIMENOrdering Facility: [facility] Address: [address] [place] [address] Result Comment: Test Methodology: Multiplex flow immunoassay. Performed By: #### 2 9374-6, 25142-5, 47314-9, 91902-7, 91184-0, 59040-7, 61270-1, 00276-4 ####[facility] LABCLIA [id number] [place] [address] [place] KARYN SS-B Ab Ser-aCncon 01-02 Sjogrens syndrome-B extractable nuclear Ab Qn (S) <0.2 Normal <1.0 [facility] Comment on above: Order Comment: Speci men Type: BLOOD SPECIMENOrdering Facility: [facility] Address: [address] [place] [address] Result Comment: Anti -SSB (anti-La) antibody is used as an aid in diagnosis of a variety of systemic autoimmune diseases, especially for Sjogren's syndrome and systemic lupus erythematosus. Clinical correlation is required. Test Methodology: Multiplex flow immunoassay. Performed By: #### 2 9374-6, 73007-1, 93179-5, 71569-5, 15408-7, 63816-5, 95677-5, 17386-5 ####[facility] LABIA [id number] [place] [address] [place] ESR Westergren method (Bld) [Velocity]on 01-02-2025 ESR (Bld) [Velocity] 17 mm/h [facility] Interpretation and review of laboratory results Normal [facility] ESR (Bld) [Velocity] 17 mm/h Normal 0-20 [facility] Comment on above: Order Comment: Speci men Type: BLOOD SPECIMENOrdering Facility: [facility] Address: [address] [place] [address] Performed By: #### 4 537-7 ####[facility] LABIA [id number] [place] [address] [place] Linette-1 extractable nuclear Ab Qn (S)on 01-02-2025 LINETTE 1 ANTIBODY QUAL Negative Normal Negative [facility] Comment on above: Order Comment: Speci men Type: BLOOD SPECIMENOrdering Facility: [facility] Address: [address] [place] [address] Result Comment: Anti -LINETTE-1 antibody is used as an aid in diagnosis of polymyositis and dermatomyositis especially with pulmonary involvement. A negative result cannot rule out polymyositis or dermatomyositis. Clinical correlation is required. Test Methodology: Multiplex flow immunoassay. Performed By: #### 2 9374-6, 16725-5, 18486-1, 73282-5, 60689-0, 05160-9, 27904-8, 11314-9 ####[facility] LABIA [id number] [place] [id number] [place] Prot/Creat Uron 01-02-2025 Protein/Creatinine (U) [Mass ratio] 0.31 mg/mg High <0.15 [facility] Comment on above: Order Comment: Zachariah pena Type: URINE SPECIMENOrdering Facility: [facility] Address: [address] [place] [address] Result Comment: Adul t Proteinuria Categories: <0.15 mg/mg is considered normal to mildly increased 0.15 - 0.50 mg/mg is considered moderately increased >0.50 mg/mg is considered severely increased KDIGO. (2013). KDIGO 2012 Clinical Practice Guideline for the Evaluation and Management of Chronic Kidney Disease. Official Journal of the International Society of Nephrology, 3(1), 1-150. Performed By: #### 2 890-2 ####[facility] LABIA [id number] [place] [id number] [place] Protein/Creatinine (U) [Mass ratio]on 01-02-2025 Creatinine (U) [Mass/Vol] 19.5 mg/dL Low 20.0-300.0 [facility] Comment on above: Order Comment: Zachariah pena Type: URINE SPECIMENOrdering Facility: [facility] Address: [address] [place] [address] Performed By: #### 2 890-2 ####[facility] LABIA [id number] [address] [address] [place] Protein (U) [Mass/Vol] 6 mg/dL Normal 0-20 [facility] Comment on above: Order Comment: Speci men Type: URINE SPECIMENOrdering Facility: [facility] Address: [address] [place] [address] Performed By: #### 2 890-2 ####[facility] LABIA [id number] [place] [id number] [place] Rheumatoid fact SerPl-aCncon 01-02-2025 Rheumatoid factor Qn [IU]/mL Normal <16 [facility] Comment on above: Order Comment: Speci men Type: BLOOD SPECIMENOrdering Facility: [facility] Address: [address] [place] [address] Performed By: #### 4 485-9, 4498-2, 1987-5, 14429-2 ####[facility] LABIA [id number] [place] [address] [place] Ribonucleoprotein extractabl e nuclear Ab Qn (S)on 01-02-2025 ANTI-CASKET TRIMMER QUAL Negative Normal Negative [facility] Comment on above: Order Comment: Speci men Type: BLOOD SPECIMENOrdering Facility: [facility] Address: [address] [place] [address] Performed By: #### 2 9374-6, 07692-8, 75913-7, 50653-9, 75237-8, 36894-7, 20262-6, 92148-6 ####[facility] LABIA [id number] [place] [address] [place] RIBOSOMAL CASKET TRIMMER QUAL Negative Normal Negative [facility] Comment on above: Order Comment: Speci men Type: BLOOD SPECIMENOrdering Facility: [facility] Address: [address] [place] [address] Result Comment: Anti -Ribosomal RNA (Ribosomal P) antibody is used as an aid in diagnosis of systemic autoimmune diseases especially systemic lupus erythematosus and mixed connective tissue disease. Cross-reactivity with Anti-roach antibody is not uncommon. Clinical correlation is required. Test Methodology: Multiplex flow immunoassay. Performed By: #### 2 9374-6, 38865-2, 77081-6, 84821-5, 32425-1, 63892-7, 32199-8, 78073-8 ####[facility] [id number] [address] [place] [address] [place] SCL-70 extractable nuclear I gG IA Qn (S)on 01-02-2025 SCLERODERMA AB QUAL Negative Normal Negative [facility] Comment on above: Order Comment: Speci men Type: BLOOD SPECIMENOrdering Facility: [facility] Address: [address] [place] [address] Performed By: #### 2 9374-6, 11075-1, 14798-8, 90276-4, 12473-2, 97333-5, 13292-0, 74352-1 ####[facility] [id number] [address] [place] [address] [place] SCLERODERMA IGG AB <0.2 Normal <1.0 [facility] Comment on above: Order Comment: Speci men Type: BLOOD SPECIMENOrdering Facility: [facility] Address: [address] [place] [address] Result Comment: Scl- 70/Scleroderma antibody test is used as an aid in diagnosis of systemic sclerosis especially the diffuse cutaneous form. A negative result cannot rule out systemic sclerosis. The final interpretation should consider clinical picture and other test results such as anti-centromere antibody. Test Methodology: Multiplex flow immunoassay. Performed By: #### 2 9374-6, 35947-8, 15948-1, 42409-9, 45892-0, 64078-8, 92540-3, 94517-5 ####[facility] [id number] [address] [place] [address] [place] Sjogrens syndrome-A extracta ble nuclear Ab Qn (S)on 01-02-2025 SSA ANTIBODY QUAL Positive Abnormal Negative [facility] Comment on above: Order Comment: Speci men Type: BLOOD SPECIMENOrdering Facility: [facility] Address: [address] [place] [address] Performed By: #### 2 9374-6, 90744-1, 26175-4, 97119-9, 34005-8, 01667-3, 58164-1, 89186-6 ####[facility] LABIA [id number] [place] [address] [place] Sjogrens syndrome-B extracta ble nuclear Ab Qn (S)on 01-02-2025 SSB ANTIBODY QUAL Negative Normal Negative [facility] Comment on above: Order Comment: Speci men Type: BLOOD SPECIMENOrdering Facility: [facility] Address: [address] [place] [address] Performed By: #### 2 9374-6, 84190-0, 44201-8, 37121-6, 64736-3, 10562-6, 83473-1, 42130-2 ####[facility] [id number] [address] [place] Roach extractable nuclear Ig G Qn (S)on 01-02-2025 SM ANTIBODY QUAL Negative Normal Negative [facility] Comment on above: Order Comment: Speci men Type: BLOOD SPECIMENOrdering Facility: [facility] Address: [address] [place] [address] Result Comment: Anti -Sm (Roach) antibody is used as an aid in diagnosis of systemic lupus erythematosus and its presence is associated with renal disease. A negative result cannot rule out systemic lupus erythematosus. Clinical correlation is required. Test Methodology: Multiplex flow immunoassay. Performed By: #### 2 9374-6, 51544-1, 58031-0, 39330-1, 45429-1, 86812-0, 90000-8, 21806-3 ####[facility]IA [id number] [place] [id number] [place] Urinalysis complete panel (U )on 01-02-2025 Bacteria uL 960.9 uL High - 941 uL [facility] Bilirubin Ql (U) Negative Negative [facility] Clarity (Unsp spec) Clear Clear [facility] Color (U) Yellow Yellow [facility] Epithelial cells LM.HPF (Urine sed) [#/Area] None Seen /HPF [facility] Glucose Test strip (U) [Mass/Vol] Negative Negative [facility] Hemoglobin Ql (U) Negative Negative [facility] Hyaline casts (Urine sed) [#/Area] 0 /[LPF] 0 /LPF [facility] Interpretation and review of laboratory results Abnormal [facility] Ketones Ql (U) Negative Negative [facility] Leukocyte esterase Test strip Ql (U) 1+ Abnormal Negative [facility] Nitrite Ql (U) Negative Negative [facility] pH (U) 7 [pH] 5.0 - 8.0 [facility] Protein (U) [Mass/Vol] Negative Negative [facility] RBC LM.HPF (Urine sed) [#/Area] 0-2 /HPF 0-2 /HPF [facility] Specific gravity (U) [Rel density] 1.008 1.005 - 1.030 [facility] Urobilinogen Ql (U) 0.2 EU/dL 0.2-1.0 EU/dL [facility] WBC LM.HPF (Urine sed) [#/Area] 0-5 /HPF 0-5 /HPF [facility] This test was develo ped and its performance characteristics determined by [facility] [place] ([facility]). It has not been cleared or approved by the FDA. [facility] is regulated under CLIA as qualified to perform high-complexity testing. This test is used for clinical purposes. It should not be regarded as investigational or for research. [facility] BACTERIA UL 960.9 uL High Negative [facility] Comment on above: Order Comment: Speci men Type: URINE SPECIMENOrdering Facility: [facility] Address: [address] [place] [address] Performed By: #### 2 4356-8 ####[facility] LABCLIA [id number] [place] [address] [place] Bilirubin Ql (U) Negative Normal Negative [facility] Comment on above: Order Comment: Speci men Type: URINE SPECIMENOrdering Facility: [facility] Address: [address] [place] [address] Performed By: #### 2 4356-8 ####[facility] LABCLIA [id number] [address], [facility]95 [place] Clarity (Unsp spec) Clear Normal Clear [facility] Comment on above: Order Comment: Speci men Type: URINE SPECIMENOrdering Facility: [facility] Address: [address] [place] [address] Performed By: #### 2 4356-8 ####[facility] LABCLIA [id number] [address], [place] [address] [place] Color (U) Yellow Normal Yellow [facility] Comment on above: Order Comment: Speci men Type: URINE SPECIMENOrdering Facility: [facility] Address: [address] [place] [address] Performed By: #### 2 4356-8 ####[facility] LABCLIA [id number] [place] [address] [place] Epithelial cells LM.HPF (Urine sed) [#/Area] None Seen Normal [facility] Comment on above: Order Comment: Speci men Type: URINE SPECIMENOrdering Facility: [facility] Address: [address] [place] [address] Performed By: #### 2 4356-8 ####[facility] LABCLIA [id number] [place] [id number] [place] Glucose Test strip (U) [Mass/Vol] Negative Normal Negative [facility] Comment on above: Order Comment: Speci men Type: URINE SPECIMENOrdering Facility: [facility] Address: [address] [place], [place] [address] Performed By: #### 2 4356-8 ####[facility] LABCLIA [id number] [place] [id number] [place] Hemoglobin Ql (U) Negative Normal Negative [facility] Comment on above: Order Comment: Speci men Type: URINE SPECIMENOrdering Facility: [facility] Address: [address] [place] [address] Performed By: #### 2 4356-8 ####[facility] LABCLIA [id number] [address], [place] [address] [place] Hyaline casts (Urine sed) [#/Area] 0 /[LPF] Normal 0 /LPF [facility] Comment on above: Order Comment: Speci men Type: URINE SPECIMENOrdering Facility: [facility] Address: [address] [place] [address] Performed By: #### 2 4356-8 ####[facility] LABCLIA [id number] [place] [address] [place] Ketones Ql (U) Negative Normal Negative [facility] Comment on above: Order Comment: Speci men Type: URINE SPECIMENOrdering Facility: [facility] Address: [address] [place] [address] Performed By: #### 2 4356-8 ####[facility] LABCLIA [id number] [address], [place] [address] [place] Leukocyte esterase Test strip Ql (U) 1+ Abnormal Negative [facility] Comment on above: Order Comment: Speci men Type: URINE SPECIMENOrdering Facility: [facility] Address: [address] [place] [address] Performed By: #### 2 4356-8 ####[facility] LABCLIA [id number] [address], [facility]95 [place] Nitrite Ql (U) Negative Normal Negative [facility] Comment on above: Order Comment: Speci men Type: URINE SPECIMENOrdering Facility: [facility] Address: [address] [place] [address] Performed By: #### 2 4356-8 ####[facility] LABCLIA [id number] [address], [facility]95 [place] pH (U) 7.0 [pH] Normal 5.0-8.0 [facility] Comment on above: Order Comment: Speci men Type: URINE SPECIMENOrdering Facility: [facility] Address: [address] [place] [address] Performed By: #### 2 4356-8 ####[facility] LABIA [id number] [place] [address] [place] Protein (U) [Mass/Vol] Negative Normal Negative [facility] Comment on above: Order Comment: Speci men Type: URINE SPECIMENOrdering Facility: [facility] Address: [address] [place] [address] Performed By: #### 2 4356-8 ####[facility] LABIA [id number] [place] [address] [place] RBC LM.HPF (Urine sed) [#/Area] 0-2 /HPF Normal 0-2 /HPF [facility] Comment on above: Order Comment: Speci men Type: URINE SPECIMENOrdering Facility: [facility] Address: [address] [place] [address] Performed By: #### 2 4356-8 ####[facility] [id number] [place] [address] [place] Specific gravity (U) [Rel density] 1.008 Normal 1.005-1.030 [facility] Comment on above: Order Comment: Speci men Type: URINE SPECIMENOrdering Facility: [facility] Address: [address] [place] [address] Performed By: #### 2 4356-8 ####[facility] LABIA [id number] [place] [address] [place] Urobilinogen Ql (U) 0.2 EU/dL Normal 0.2-1.0 EU/dL [facility] Comment on above: Order Comment: Speci men Type: URINE SPECIMENOrdering Facility: [facility] Address: [address] [place] [address] Performed By: #### 2 4356-8 ####[facility] LABCLIA [id number] [place] [address] [place] WBC LM.HPF (Urine sed) [#/Area] 0-5 /HPF Normal 0-5 /HPF [facility] Comment on above: Order Comment: Speci men Type: URINE SPECIMENOrdering Facility: [facility] Address: [address] [place] [address] Performed By: #### 2 4356-8 ####[facility] LABCLIA [id number] [place] [address] [place] XR HIP 3V PELV+ AP/LAT RTon 01-02-2025 XR HIP 3V PELV+ AP/LAT RT * * *Final Report* * * DATE OF EXAM: Jan 02 2025 3:41PM WRX 5352 - XR HIP 3V PELV+ AP/LAT RT / PROCEDURE REASON: multiple diagnoses * * * * Physician Interpretation * * * * PROCEDURE: Right knee, pelvis and right hip and SI joints INDICATION: Pain in joint, multiple sites Right leg paresthesias .PT STATES RIGHT KNEE PAIN (accession [id number]), PT STATES HIP AND PELVIC PAIN (accession [id number]), PT STATES RIGHT HIP PAIN (accession [id number]) TECHNIQUE: XR KNEE 4V AP/PA BOTH+LAT/MALLY RT, XR SI JTS 2V AP PELV/NASH, XR HIP 3V PELV+ AP/LAT RT COMPARISON: Right knee, limited views 04/10/2024 FINDINGS: Right knee: Normal bone mineralization. Joint spaces are maintained. No fracture, dislocation, erosion or joint effusion. Pelvis and right hips and SI joints: The hip and sacroiliac joints are maintained. No erosions or ankylosis. No fracture or dislocation. No enthesophytes. IMPRESSION: No acute abnormality. No evidence for inflammatory arthritis. Wood Preparation Supervisor: LUDIVINA Transcribe Date/Time: Jan 04 2025 1:43P Dictated by : YON HURD MD This examination was interpreted and the report reviewed and electronically signed by: YON HURD MD on Jan 04 2025 1:44PM EST [id number] Normal [facility] XR KNEE 4V AP/PA BOTH+LAT/ME R RTon 01-02-2025 XR KNEE 4V AP/PA BOTH+LAT/MALLY RT * * *Final Report* * * DATE OF EXAM: Jan 02 2025 3:46PM WRX 5203 - XR KNEE 4V AP/PA BOTH+LAT/MALLY RT / PROCEDURE REASON: multiple diagnoses * * * * Physician Interpretation * * * * PROCEDURE: Right knee, pelvis and right hip and SI joints INDICATION: Pain in joint, multiple sites Right leg paresthesias .PT STATES RIGHT KNEE PAIN (accession [id number]), PT STATES HIP AND PELVIC PAIN (accession [id number]), PT STATES RIGHT HIP PAIN (accession [id number]) TECHNIQUE: XR KNEE 4V AP/PA BOTH+LAT/MALLY RT, XR SI JTS 2V AP PELV/NASH, XR HIP 3V PELV+ AP/LAT RT COMPARISON: Right knee, limited views 04/10/2024 FINDINGS: Right knee: Normal bone mineralization. Joint spaces are maintained. No fracture, dislocation, erosion or joint effusion. Pelvis and right hips and SI joints: The hip and sacroiliac joints are maintained. No erosions or ankylosis. No fracture or dislocation. No enthesophytes. IMPRESSION: No acute abnormality. No evidence for inflammatory arthritis. Wood Preparation Supervisor: LUDIVINA Transcribe Date/Time: Jan 04 2025 1:43P Dictated by : YON HURD MD This examination was interpreted and the report reviewed and electronically signed by: YON HURD MD on Jan 04 2025 1:44PM EST [id number] Normal [facility] XR SI JTS 2V AP PELV/FERGUSO Non 01-02-2025 XR SI JTS 2V AP PELV/NASH * * *Final Report* * * DATE OF EXAM: Jan 02 2025 3:42PM WRX 5245 - XR SI JTS 2V AP PELV/NASH / PROCEDURE REASON: multiple diagnoses * * * * Physician Interpretation * * * * PROCEDURE: Right knee, pelvis and right hip and SI joints INDICATION: Pain in joint, multiple sites Right leg paresthesias .PT STATES RIGHT KNEE PAIN (accession [id number]), PT STATES HIP AND PELVIC PAIN (accession [id number]), PT STATES RIGHT HIP PAIN (accession [id number]) TECHNIQUE: XR KNEE 4V AP/PA BOTH+LAT/MALLY RT, XR SI JTS 2V AP PELV/NASH, XR HIP 3V PELV+ AP/LAT RT COMPARISON: Right knee, limited views 04/10/2024 FINDINGS: Right knee: Normal bone mineralization. Joint spaces are maintained. No fracture, dislocation, erosion or joint effusion. Pelvis and right hips and SI joints: The hip and sacroiliac joints are maintained. No erosions or ankylosis. No fracture or dislocation. No enthesophytes. IMPRESSION: No acute abnormality. No evidence for inflammatory arthritis. Wood Preparation Supervisor: LUDIVINA Transcribe Date/Time: Jan 04 2025 1:43P Dictated by : YON HURD MD This examination was interpreted and the report reviewed and electronically signed by: YON HURD MD on Jan 04 2025 1:44PM EST [id number] Normal [facility] cCP IgG SerPl-aCncon 025 Cyclic citrullinated peptide IgG Qn <15 Normal <20 [facility] Comment on above: Order Comment: Speci men Type: BLOOD SPECIMENOrdering Facility: [facility] Address: [address] [place] [address] Performed By: #### 3 3935-8 ####[facility] LABCLIA [id number] [place] [address] [place] Java Lead Developer Cytology Reporton 2024 Java Lead Developer Cytology Report . Pathology Reports Accession: Collected Date/Time: Received Date/Time: Pathologist: [id number] 12/26/2024 14:41 EDT 12/27/2024 18:00 EDT MD JOSÉ MIGUEL CHAVARRIA Java Lead Developer Cytology Report SPECIMEN: Specimen Description: Liquid Prep w/ HPV Specimen: Cervical Screening or Diagnostic: Screening RELEVANT HISTORY: LMP: not given [id number] SPECIMEN ADEQUACY: SATISFACTORY FOR EVALUATION Endocervical/Transforma tional zone component present INTERPRETATION/RESULTS: NEGATIVE FOR INTRAEPITHELIAL LESION OR MALIGNANCY SUGGESTIONS/EDUCATIONAL NOTES: This case has been reviewed for 10% QA rescreen HIGH RISK HPV TESTING: HPV Screen Only, LA Probe Negative HPV Screen Only, LA Probe Interp Data: Molecular methodology performed on the [employer] System. The APTIMA HPV Screening Assay is a nucleic acid amplification test which detects fourteen high-risk HPV types (16,18,31,33,35,39,45,5 1,52,56,58,59,66 and 68). Detection of high-risk HPV (types 16,18 and 45) mRNA is dependent on the number of copies present in the specimen which may be affected by collection methods, patient factors, stage of infection and the presence of interfering substances. This assay is designed to enhance existing methods for the detection of cervical disease and should be used in conjunction with clinical information from other diagnostic and screening tests. This assay is not intended for use as a screening device for women under age 30 with normal cervical history or as a substitute for regular cervical cytology screening. If the APTIMA screening assay is positive, the HPV 16 18/45 genotype assay is performed as a follow-up test and should be interpreted in conjunction with cervical cytology test results, according to current practice guidelines. As of: 01/01/25 16:12 EDT COMMENT: This Pap Test was successfully processed and evaluated with the assistance of the [employer] ThinPrep Test Imaging System. Pathology Reports Accession: Collected Date/Time: Received Date/Time: Pathologist: [id number] 12/26/2024 14:41 EDT 12/27/2024 18:00 EDT MD JOSÉ MIGUEL CHAVARRIA Verified by Pathology report verified by [facility] Screened by: WADE Electronically signed by JOSÉ MIGUEL CHAVARRIA MD Sign-Out Date: 01/01/2025 16:34 Performing Lab: [address] Pathology Dept Disclaimer The Pap test is a screening test for cervical cancer. As evidenced by published data, it is subject to both inherent false negative and false positive results. Your patient's results should be interpreted in context with pertinent clinical history including gynecological examination. Normal [facility] HPVSCon 01-01-2025 HPV Source Cervix Normal [facility] Comment on above: Order Comment: Order placed by AP_HPV_ORDER rule from [id number] Performed By: #### [facility] #### [place] [address] [address] [place] [address] HPV Screen Only, [place] Probe Negative Normal Negative [facility] Comment on above: Order Comment: Order placed by AP_HPV_ORDER rule from [id number] Result Comment: Dora erazo methodology performed on the [employer] System. The APTIMA HPV Screening Assay is a nucleic acid amplification test which detects fourteen high-risk HPV types (16,18,31,33,35,39,45,51,52,56,58,59,66 and 68). Detection of high-risk HPV (types 16,18 and 45) mRNA is dependent on the number of copies present in the specimen which may be affected by collection methods, patient factors, stage of infection and the presence of interfering substances. This assay is designed to enhance existing methods for the detection of cervical disease and should be used in conjunction with clinical information from other diagnostic and screening tests. This assay is not intended for use as a screening device for women under age 30 with normal cervical history or as a substitute for regular cervical cytology screening. If the APTIMA screening assay is positive, the HPV 16 18/45 genotype assay is performed as a follow-up test and should be interpreted in conjunction with cervical cytology test results, according to current practice guidelines. Performed By: #### [facility] #### [address] [address] MR Cervical spine PATRIC and Ismael hart Daniel 12-30-2024 IMPRESSION: * Questionable patchy STIR hyperintense foci involving the visualized spinal cord likely artifactual. Demyelinating disease considered unlikely, as clinically questioned. The visualized cord is within normal limits of signal intensity and morphology, otherwise. On post infusion images, no abnormal enhancement. Suggest comparison prior studies if available. Otherwise, in case of a high concern continued follow-up could be obtained for reassurance. * Mild degenerative changes without significant spinal canal or foraminal stenosis. * Susceptibility artifacts from ACDF at C5 C7. Refer to prior dedicated cross-sectional studies for detailed evaluation. Visualized cervical vertebrae demonstrate normal height and marrow signal intensity. On post infusion images, no abnormal enhancement. Anatomic Variant: None. Assume 7 cervical vertebrae with counting from the craniocervical junction. Wood Preparation Supervisor: LUDIVINA Transcribe Date/Time: Dec 30 2024 4:40P Dictated by : KASSIDY LUJAN MD This examination was interpreted and the report reviewed and electronically signed by: KASSIDY LJUAN MD on Dec 30 2024 4:54PM [facility] DIVISION OF RADIOLOGY * * *Final Report* * * DATE OF EXAM: Dec 30 2024 3:29PM [facility] [id number] - MRI CERVICAL SPINE WO/W IVCON / PROCEDURE REASON: Demyelinating disease * * * * Physician Interpretation * * * * EXAMINATION: MRI CERVICAL SPINE WO/W IVCON CLINICAL HISTORY: Demyelinating disease . Patient with possible history of left-sided facial weakness, abnormal behavior, and speech difficulty. Right upper extremity numbness. Lower extremity numbness/weakness. Concern of demyelinating disease. TECHNIQUE: Routine cervical spine MR protocol without and with intravenous gadolinium. MQ: [id number]_3 MRI Contrast: Elucirem MRI Contrast Volume (ml): 9 MRI Contrast Route of Administration: Intravenous COMPARISON: None. RESULT: Counting reference: Craniocervical junction. Anatomic Variants: None. Localizer images: No additional findings. Refer to recent dedicated outside hospital MRI brain 10/23/2024 for detailed evaluation of the adjacent structures. Alignment: Straightening of normal cervical lordosis. No significant listhesis. Craniocervical junction: Mild degenerative changes of atlantodental joint. Craniocervical junction is normal, otherwise. Cord: Questionable patchy STIR hyperintense foci involving the visualized spinal cord without definite imaging correlate on the remainder of the sequences. The visualized cord is within normal limits of signal intensity and morphology, otherwise. On post infusion images, no abnormal enhancement. Bone marrow signal/fracture: Susceptibility artifacts from ACDF at C5 C7 limit the evaluation of the adjacent structures. Refer to prior dedicated cross-sectional studies for detailed evaluation. Within the aforementioned limitation, no evidence of pathologic marrow infiltration. No evidence of prior fracture. On post infusion images, no abnormal enhancement. Cervical soft tissues: The dorsal paraspinal soft tissues are within normal limits. On post infusion images, no abnormal enhancement. C2-C3: Canal and foramina are patent. C3-C4: Canal and foramina are patent. C4-C5: Canal and foramina are patent. C5-C6: Tiny posterior disc osteophyte complex with resultant partial effacement of the ventral subarachnoid space. Minimal bilateral uncovertebral/facet joint arthropathy. Canal and foramina are patent. C6-C7: Small posterior disc osteophyte complex asymmetric to the left with resultant partial effacement of the ventral subarachnoid space. No spinal canal or foraminal stenosis. C7-T1: Small posterior disc bulge with partial effacement of the ventral subarachnoid space. No spinal canal or foraminal stenosis. DIVISION OF RADIOLOGY Provider, Gini Gallegos [facility] - 12/30/2024 * * *Final Report* * * DATE OF EXAM: Dec 30 2024 3:29PM [facility] 0298 - MRI CERVICAL SPINE WO/W IVCON / PROCEDURE REASON: Demyelinating disease * * * * Physician Interpretation * * * * EXAMINATION: MRI CERVICAL SPINE WO/W IVCON CLINICAL HISTORY: Demyelinating disease . Patient with possible history of left-sided facial weakness, abnormal behavior, and speech difficulty. Right upper extremity numbness. Lower extremity numbness/weakness. Concern of demyelinating disease. TECHNIQUE: Routine cervical spine MR protocol without and with intravenous gadolinium. MQ: MRCSPWO_3 MRI Contrast: Elucirem MRI Contrast Volume (ml): 9 MRI Contrast Route of Administration: Intravenous COMPARISON: None. RESULT: Counting reference: Craniocervical junction. Anatomic Variants: None. Localizer images: No additional findings. Refer to recent dedicated outside hospital MRI brain 10/23/2024 for detailed evaluation of the adjacent structures. Alignment: Straightening of normal cervical lordosis. No significant listhesis. Craniocervical junction: Mild degenerative changes of atlantodental joint. Craniocervical junction is normal, otherwise. Cord: Questionable patchy STIR hyperintense foci involving the visualized spinal cord without definite imaging correlate on the remainder of the sequences. The visualized cord is within normal limits of signal intensity and morphology, otherwise. On post infusion images, no abnormal enhancement. Bone marrow signal/fracture: Susceptibility artifacts from ACDF at C5 C7 limit the evaluation of the adjacent structures. Refer to prior dedicated cross-sectional studies for detailed evaluation. Within the aforementioned limitation, no evidence of pathologic marrow infiltration. No evidence of prior fracture. On post infusion images, no abnormal enhancement. Cervical soft tissues: The dorsal paraspinal soft tissues are within normal limits. On post infusion images, no abnormal enhancement. C2-C3: Canal and foramina are patent. C3-C4: Canal and foramina are patent. C4-C5: Canal and foramina are patent. C5-C6: Tiny posterior disc osteophyte complex with resultant partial effacement of the ventral subarachnoid space. Minimal bilateral uncovertebral/facet joint arthropathy. Canal and foramina are patent. C6-C7: Small posterior disc osteophyte complex asymmetric to the left with resultant partial effacement of the ventral subarachnoid space. No spinal canal or foraminal stenosis. C7-T1: Small posterior disc bulge with partial effacement of the ventral subarachnoid space. No spinal canal or foraminal stenosis. IMPRESSION IMPRESSION: * Questionable patchy STIR hyperintense foci involving the visualized spinal cord likely artifactual. Demyelinating disease considered unlikely, as clinically questioned. The visualized cord is within normal limits of signal intensity and morphology, otherwise. On post infusion images, no abnormal enhancement. Suggest comparison prior studies if available. Otherwise, in case of a high concern continued follow-up could be obtained for reassurance. * Mild degenerative changes without significant spinal canal or foraminal stenosis. * Susceptibility artifacts from ACDF at C5 C7. Refer to prior dedicated cross-sectional studies for detailed evaluation. Visualized cervical vertebrae demonstrate normal height and marrow signal intensity. On post infusion images, no abnormal enhancement. Anatomic Variant: None. Assume 7 cervical vertebrae with counting from the craniocervical junction. Wood Preparation Super[facility] Transcribe Date/Time: Dec 30 2024 4:40P Dictated by : KASSIDY LUJAN MD This examination was interpreted and the report reviewed and electronically signed by: KASSIDY LUJAN MD on Dec 30 2024 4:54PM EST [facility] Radiology Study observation (narrative) [facility] MR Cervical spine WO and W c ontrast IVOrdered By: [facility] Provider on 12-30-2024 [facility] MRI CERVICAL SPINE WO/W IVCO Non 12-30-2024 MRI CERVICAL SPINE WO/W IVCON * * *Final Report* * * DATE OF EXAM: Dec 30 2024 3:29PM [facility] 0298 - MRI CERVICAL SPINE WO/W IVCON / PROCEDURE REASON: Demyelinating disease * * * * Physician Interpretation * * * * EXAMINATION: MRI CERVICAL SPINE WO/W IVCON CLINICAL HISTORY: Demyelinating disease . Patient with possible history of left-sided facial weakness, abnormal behavior, and speech difficulty. Right upper extremity numbness. Lower extremity numbness/weakness. Concern of demyelinating disease. TECHNIQUE: Routine cervical spine MR protocol without and with intravenous gadolinium. MQ: MRCSPWO_3 MRI Contrast: Elucirem MRI Contrast Volume (ml): 9 MRI Contrast Route of Administration: Intravenous COMPARISON: None. RESULT: Counting reference: Craniocervical junction. Anatomic Variants: None. Localizer images: No additional findings. Refer to recent dedicated outside hospital MRI brain 10/23/2024 for detailed evaluation of the adjacent structures. Alignment: Straightening of normal cervical lordosis. No significant listhesis. Craniocervical junction: Mild degenerative changes of atlantodental joint. Craniocervical junction is normal, otherwise. Cord: Questionable patchy STIR hyperintense foci involving the visualized spinal cord without definite imaging correlate on the remainder of the sequences. The visualized cord is within normal limits of signal intensity and morphology, otherwise. On post infusion images, no abnormal enhancement. Bone marrow signal/fracture: Susceptibility artifacts from ACDF at C5 C7 limit the evaluation of the adjacent structures. Refer to prior dedicated cross-sectional studies for detailed evaluation. Within the aforementioned limitation, no evidence of pathologic marrow infiltration. No evidence of prior fracture. On post infusion images, no abnormal enhancement. Cervical soft tissues: The dorsal paraspinal soft tissues are within normal limits. On post infusion images, no abnormal enhancement. C2-C3: Canal and foramina are patent. C3-C4: Canal and foramina are patent. C4-C5: Canal and foramina are patent. C5-C6: Tiny posterior disc osteophyte complex with resultant partial effacement of the ventral subarachnoid space. Minimal bilateral uncovertebral/facet joint arthropathy. Canal and foramina are patent. C6-C7: Small posterior disc osteophyte complex asymmetric to the left with resultant partial effacement of the ventral subarachnoid space. No spinal canal or foraminal stenosis. C7-T1: Small posterior disc bulge with partial effacement of the ventral subarachnoid space. No spinal canal or foraminal stenosis. IMPRESSION: * Questionable patchy STIR hyperintense foci involving the visualized spinal cord likely artifactual. Demyelinating disease considered unlikely, as clinically questioned. The visualized cord is within normal limits of signal intensity and morphology, otherwise. On post infusion images, no abnormal enhancement. Suggest comparison prior studies if available. Otherwise, in case of a high concern continued follow-up could be obtained for reassurance. * Mild degenerative changes without significant spinal canal or foraminal stenosis. * Susceptibility artifacts from ACDF at C5 C7. Refer to prior dedicated cross-sectional studies for detailed evaluation. Visualized cervical vertebrae demonstrate normal height and marrow signal intensity. On post infusion images, no abnormal enhancement. Anatomic Variant: None. Assume 7 cervical vertebrae with counting from the craniocervical junction. Wood Preparation Supervisor: LUDIVINA Transcribe Date/Time: Dec 30 2024 4:40P Dictated by : KASSIDY LUJAN MD This examination was interpreted and the report reviewed and electronically signed by: KASSIDY LUJAN MD on Dec 30 2024 4:54PM EST [id number] Normal [facility] CNCOon 12-18-2024 CNCO Letter Text Normal [facility] CNOVon 12-18-2024 CNOV Office Visit (NEMN ) CODY SANTANA ([id number]) 1985 F Date Time Provider Department 12/18/24 2:30 PM NICK RACHEL During your visit today, we recorded the following information about you: Pulse Blood pressure Weight Height 108/minute 109/68 88.5 kg 1.6 m Nick Rachel MD 12/18/2024 3:32 PM [facility] NEW PATIENT EVALUATION/CONSULTATION [facility] [place] [phone] Also followed by: Patient Care Team: Neli Tripp, PLUCK SEPARATOR as PCP - General (Family Medicine) PRINCIPAL NEUROLOGIC DIAGNOSIS: Abnormal MRI brain DISEASE SUMMARY Date of onset: No typical demyelinating syndrome Date of diagnosis of MS: None Disease course at onset: No typical demyelinating syndrome Current disease course: No typical demyelinating syndrome Previous disease therapies: None Current disease therapy: None Most recent MRI brain: 10/23/2024 Most recent MRI cervical spine: None CSF: None JCV serology result and date: None HISTORY OF ILLNESS: An opinion on this 39 year old right handed female was requested by the referring physician for a second opinion on abnormal brain MRI. The patient was accompanied by her work friend. Previous records (physician notes, laboratory reports, and radiology reports) and imaging studies were reviewed and summarized. My recommendations will be communicated back to the patient's physician(s) via electronic medical record. Follow-up is expected to be with me or the referring physician based on results of planned workup. The patient consented to the use of [employer] software for draft documentation of the visit, consistent with [facility]?s Notice of Privacy Practices. Patient is currently being evaluated by general neurology, headache neurology, and cerebrovascular center. Cody reports that her symptoms began in March 2023 with a sudden onset of weakness, dizziness, and a sensation of impending collapse while at work. She describes feeling spaced out and unable to speak or comprehend fully, leading to an emergency department visit where a stroke was suspected. She was hospitalized for three days, and her symptoms gradually improved over a month, though she notes that her memory has never fully returned. In July 2023, she experienced a similar episode, though less severe, which was initially thought to be a migraine. In October 2024, she had another episode at work, characterized by sudden onset of speech difficulty and numbness from the waist down. These episodes reportedly resolve within a few hours, but she notes that her memory and lower body numbness have not fully returned to baseline. Cody reports persistent numbness and pain in her right knee and hips, describing a sensation of separation between her hips and pelvis. She also experiences difficulty with mobility, including tripping over her feet and being unable to move her right leg at times. These symptoms have been progressively worsening, and she notes that she has been stuck in positions where she cannot move without assistance. She also reports increased sensitivity to temperature changes and itching without a known cause. She does not endorse any specific triggers for her symptoms and notes that her psychiatric medications have been stable for the past three years. Cody has a history of migraines for the past 3-4 years, which have been well-controlled with Aimovig injections. She does not report headaches associated with her episodes of weakness and dizziness. She has a history of multiple thromboembolic events, including deep vein thrombosis and pulmonary embolism, and is currently on Eliquis. She also has a history of cervical spine fusion surgery in November 2022 for neck tightness and right arm numbness, which reportedly improved after surgery. Cody has a family history of Paiz's palsy in her great-grandmother. She does not endorse any family history of multiple sclerosis or other neurological disorders. She is a current smoker, smoking approximately three-fourths of a pack per day for the past 22 years. She does not consume alcohol. Neuro-QoL Functions (higher=better functioning) Flowsheet Row Office Visit from 12/18/2024 in [facility] Upper Extremity Domain T Score 36 Lower Extremity Domain T Score 39 Cognitive Function Domain T Score 33 Positive Affect Well Being T Score -- Ability To Participate In Social Roles T Score 38 Satisfaction With Social Roles T Score 36 Neuro-QoL Symptoms (higher=worse symptoms) Flowsheet Row Office Visit from 12/18/2024 in [facility] Sleep Domain T Score 67 Fatigue Domain T Score 63 Anxiety Domain T Score 48 Depression Domain T Score 47 Stigma Domain T Score 60 Emotional Behavior Dyscontrol T Score -- PAST HISTORY: has a past medical history of Bipola (more content not included)... Normal [facility] CNOVon 11-14-2024 CNOV Office Visit (NEADMN ) CODY SANTANA ([id number]) 1985 F Date Time Provider Department 11/14/24 10:00 AM JANET FERNANDEZ During your visit today, we recorded the following information about you: Pulse Blood pressure Weight Height 87/minute 112/67 87.1 kg 1.575 m Janet Fernandez APRN.PLUCK SEPARATOR 11/14/2024 12:02 PM Signed [facility] [place] Follow-up Visit Follow-up note November 14, 2024 HPI: Ms. Santana presents today for a follow-up visit. Per her previous visit on 09/14/23: R29.810 Facial weakness (primary encounter diagnosis) R20.0 Facial numbness R44.9 Sensory deficit, right R41.3 Memory change G43.009 Migraine without aura and without status migrainosus, not intractable R47.9 Speech disturbance, unspecified type Comment: Pt previously seen for left facial weakness associated with difficulty with speech and abnormal behavior. She denied associated convulsions, loss of control of B/B, tongue/cheek bite. Previous workup completed through [facility] included MRI brain, CTA head/neck, and echocardiogram. At time of follow up, sensory deficit persisted and MRI of brain WO/W was ordered. MRI noting multiple areas of chronic microvascular were reported to be nonspecific (hx of substance use, smoker, head injury) EEG also unremarkable. Additional testing has included EMG/NCV of BUE given ongoing RUE numbness with results noting past CTS surgery but no ongoing process. She has also since completed with report of SVT x3 (she reports increased energy drink consumption) but no evidence of A-fib. She did have a hospitalization since her previous appointment at which time she felt generally weak in both legs and noted slurred/garbled speech. Workup was completed through [facility] at that time including CT brain, CTA head/neck, and MRI brain. She was diagnosed with a TIA on discharge. Records were requested and test results/ED note above. Of note, she is currently taking Eliquis (hx of factor V and VTE) and BP appears to be within normal range at time of admission as well as at appointment today. BLE weakness would not be consistent with TIA, however, given slurred speech and history of factor V as well as hx of TIA, will place referral to cerebrovascular clinic for further evaluation. Additional concern at time of previous appointment that symptoms were secondary to migraine. She is currently taking Tpx 200mg BID as prescribed by psychiatry. She was also transitioned from Imitrex to Nurtec given concern for TIA. She reports minimal relief of symptoms with use of Nurtec on an as needed basis. Consult was previously placed to the headache clinic for further management of headaches and she reports upcoming appointment in September. Today, she reports headaches have been bothersome and present in AM upon waking. On further discussion she reports daytime fatigue and intake of 4-5 energy drinks p/day. Concern that both energy drink intake (high caffeine) and sleep disorder (see below) may contribute to QUINTANA and would recommend decreasing consumption. Discussed options regarding medications. Will avoid use of BB given hx of depression and will avoid use of TCA or other antidepressant, again given psychological hx. Could consider use of gabapentin, however, given possible side effects on mood she would like to avoid use of medication (also noting she is currently on Tpx and Lamictal). At this time will attempt to utilize Nurtec as a daily preventative medication and will increase to once daily every other day. However, would ask that she keep appointment with QUINTANA clinic for alternative medication recommendations. R53.83 Other fatigue R06.83 Snoring Comment: Pt reports snoring, daytime fatigue, and AM headaches. Concern for possible LINDA and she is agreeable to complete HSAT for further evaluation. Interim Review: Per my personal records review on 10/31/24: Records received from [facility] and reviewed as below: Patient reportedly presented to the ED due to difficulty getting words out at work. Symptoms were preceded by a 2-week long migraine. NIH SS completed in ED with score of 3 due to slight L lid droop, slight L leg drift, and slight decrease in sensation to L UE. No TNK administered due to concurrent use of Eliquis. She was admitted for MRI and migraine treatment. Echo (TTE) normal. CT brain without acute intracranial abnormality. CTA head/neck demonstrating patent circulation without stenosis. MRI brain W/WO demonstrating multiple white matter changes some with radial orientation concerning for presence of demyelinating disease per report. It was felt that symptoms were atypical presentation of migraine. She was discharged home with recommendation to continue Aimovig and Topamax. She continues to take Eliquis for history of factor V. Hospital records to be scanned to (more content not included)... Normal [facility] 11-01-2024 [facility] Telephone ([facility]) CODY SANTANA ([id number]) 1985 F Date Time Provider Department 11/01/24 ANTWON ESCOBEDO [facility] During your visit today, we recorded the following information about you: Odalys Chavira 11/01/2024 12:28 PM Signed Allergies As of Date: 11/01/2024 Noted Allergy Reaction KEFLEX (CEPHALEXIN) 09/14/2023 14 - Other: See Comments Comments: Achy, weak PERCOCET (OXYCODONE-ACETAMINOPHE N)09/14/2023 14 - Other: See Comments Comments: Nose itch Date Reviewed: 10/25/2024 Reviewed by: Antwon Escobedo PA-C - Fully Assessed Reason for Visit: Insurance Authorization [[id number]] Kamryn Norris [Other] Prescriptions as of 11/01/2024 - chlorzoxazone (PARAFON FORTE DSC) 500 mg tablet Take 1 tablet (500 mg) by mouth four times a day until headache free for 24 hours or take for full 5 days. - erenumab-aooe (AIMOVIG AUTOINJECTOR) 70 mg/mL auto-injector Inject 1 mL subcutaneously once every month. - lidocaine (LIDODERM) 5 % Apply 1 Patch as directed every 24 hours. - HYDROcodone-acetaminoph en (NORCO) 5-325 mg per tablet Take 1 tablet by mouth every 8 hours as needed for pain. - methocarbamol (ROBAXIN) 500 mg tablet Take 500 mg by mouth four times daily. - rimegepant (NURTEC ODT) 75 mg disintegrating tablet Take 1 tablet by mouth once daily as needed (Migraine). - albuterol HFA (PROVENTIL HFA, VENTOLIN HFA) 90 mcg/actuation inhaler Inhale 2 Puffs as instructed every 6 hours as needed for wheezing/shortness of breath. - medroxyPROGESTERone (DEPO-PROVERA) 150 mg/mL injection Inject 150 mg intramuscularly every 12 weeks. - ELIQUIS 5 mg tab(s) Take 1 tablet by mouth every 12 hours. - cetirizine (ZYRTEC) 10 mg tablet Take 10 mg by mouth once daily. - cholecalciferol (VITAMIN D3) 1,000 unit tab tablet Take 2 tablets by mouth every afternoon. - citalopram (CELEXA) 40 mg tablet Take 1 tablet by mouth every afternoon. - famotidine (PEPCID) 40 mg tablet TAKE 1 TABLET BY MOUTH TWICE DAILY WITH SUPPER AND AT BEDTIME - lamoTRIgine (LAMICTAL) 200 mg tablet TAKE 1 TABLET BY MOUTH ONCE DAILY IN THE MORNING - montelukast (SINGULAIR) 10 mg tablet Take 1 tablet by mouth every afternoon. - nystatin (MYCOSTATIN) powder APPLY POWDER TOPICALLY TWICE TO THREE TIMES DAILY TO GROIN AREA DIRECTED - topiramate (TOPAMAX) 200 mg tablet Take 200 mg by mouth two times a day. - haloperidol (HALDOL) 5 mg tablet Take 5 mg by mouth as needed (for anxiety). Problem List As Of Date: 11/01/2024 (None) Encounter Status:Closed by ODALYS CHAVIRA on 11/01/24 [facility] 10-30-2024 [place] Telephone (NEURMM) CODY SANTANA ([id number]) 1985 F Date Time Provider Department 10/30/24 JANET FERNANDEZ [facility] During your visit today, we recorded the following information about you: Lela Scruggs, RN 10/30/2024 12:34 PM Signed Received staff message from provider as noted below: Janet Fernandez APRN.KOLE Lucero [facility] Clinical Pool Hi, Pt is scheduled with me on 11/14/24 for [facility] follow up. I have no hospital records as this was outside [facility]. Can we see if we can get these? Also I referred her to cerebrovascular and [facility] since her last appt with me who she has been following with. If hospitalization for migraine or stroke symptoms would recommend she is seen by either headache or cerebrovascular provider. If new sx could we move to extended time slot? Thank you! KD Call to patient to inquire reason for hospital visit. No answer. Left message to return call. Patient did see headache clinic 10-25-24 and it notes She was recently hospitalized for two days due to the severity of the migraine, which reportedly mimicked stroke symptoms. Monica Calloway MA 10/31/2024 10:19 AM Signed Received [facility] medical records for patient Monica Calloway MA 12/02/2024 10:00 AM Signed Sent to scanning. Allergies As of Date: 10/30/2024 Noted Allergy Reaction KEFLEX (CEPHALEXIN) 09/14/2023 14 - Other: See Comments Comments: deb Esquivel PERCOCET (OXYCODONE-ACETAMINOPHE N)09/14/2023 14 - Other: See Comments Comments: Nose itch Date Reviewed: 10/25/2024 Reviewed by: Antwon Escobedo PA-C - Fully Assessed Reason for Visit: Appointment [186] Prescriptions as of 12/02/2024 - chlorzoxazone (PARAFON FORTE DSC) 500 mg tablet Take 1 tablet (500 mg) by mouth four times a day until headache free for 24 hours or take for full 5 days. - erenumab-aooe (AIMOVIG AUTOINJECTOR) 70 mg/mL auto-injector Inject 1 mL subcutaneously once every month. - lidocaine (LIDODERM) 5 % Apply 1 Patch as directed every 24 hours. - HYDROcodone-acetaminoph en (NORCO) 5-325 mg per tablet Take 1 tablet by mouth every 8 hours as needed for pain. - methocarbamol (ROBAXIN) 500 mg tablet Take 500 mg by mouth four times daily. - rimegepant (NURTEC ODT) 75 mg disintegrating tablet Take 1 tablet by mouth once daily as needed (Migraine). - albuterol HFA (PROVENTIL HFA, VENTOLIN HFA) 90 mcg/actuation inhaler Inhale 2 Puffs as instructed every 6 hours as needed for wheezing/shortness of breath. - medroxyPROGESTERone (DEPO-PROVERA) 150 mg/mL injection Inject 150 mg intramuscularly every 12 weeks. - ELIQUIS 5 mg tab(s) Take 1 tablet by mouth every 12 hours. - cetirizine (ZYRTEC) 10 mg tablet Take 10 mg by mouth once daily. - cholecalciferol (VITAMIN D3) 1,000 unit tab tablet Take 2 tablets by mouth every afternoon. - citalopram (CELEXA) 40 mg tablet Take 1 tablet by mouth every afternoon. - famotidine (PEPCID) 40 mg tablet TAKE 1 TABLET BY MOUTH TWICE DAILY WITH SUPPER AND AT BEDTIME - lamoTRIgine (LAMICTAL) 200 mg tablet TAKE 1 TABLET BY MOUTH ONCE DAILY IN THE MORNING - montelukast (SINGULAIR) 10 mg tablet Take 1 tablet by mouth every afternoon. - nystatin (MYCOSTATIN) powder APPLY POWDER TOPICALLY TWICE TO THREE TIMES DAILY TO GROIN AREA DIRECTED - topiramate (TOPAMAX) 200 mg tablet Take 200 mg by mouth two times a day. - haloperidol (HALDOL) 5 mg tablet Take 5 mg by mouth as needed (for anxiety). Problem List As Of Date: 10/30/2024 (None) Encounter Status:Closed by LELA SCRUGGS on 10/30/24 Normal [facility] Absolute lymphocyte countOrd ered By: Farhana Harden on 10-23-2024 Lymphocytes Auto (Unsp spec) [#/Vol] 3.27 10*3/uL 0.83-4.51 [facility] Absolute neutrophil countOrd ered By: Farhana Harden on 10-23-2024 Neutrophils (Bld) [#/Vol] 2.5 10*3/uL 2.0-7.7 [facility] Anion gap in Serum or Plasma Ordered By: Farhana Harden on 10-23-2024 Anion gap [Moles/Vol] 10 mmol/L 5-15 [facility] Automated lymphocyte count a s percentage of total leukocytesOrdered By: Farhana Harden on 10-23-2024 Lymphocytes/100 WBC Auto (Unsp spec) 49.8 % High 19-41 [facility] BUN/creatinine ratioOrdered By: Farhana Harden on 10-23-2024 Urea nitrogen/Creatinine [Mass ratio] 15.2 mg/mg 10-20 [facility] Basophil percentageOrdered B y: Farhana Harden on 10-23-2024 Basophils/100 WBC (Bld) 0.9 % 0-1 [facility] Bilirubin, totalOrdered By: Farhana Harden on 10-23-2024 Bilirubin [Mass/Vol] 0.25 mg/dL 0.00-1.30 [facility] Blood manual differential co mment interpretation (narrative result)Ordered By: Farhana Harden on 10-23-2024 Manual differential comment Bro (Bld) [Interp] SCANNED [facility] Brain W/WO Contraston 2024 Brain W/WO Contrast [facility] Imaging Services [address] [place], [place] [address] Brain W/WO Contrast MR#: [id number] Acct: [id number] Name: CODY SANTANA Rep #: [id number] : 1985 F 38 From: Lucina Gaston PCP: Care Physician,No Primary Status: ADM MARGY Study: Brain W/WO Contrast Date of Exam: 10/23/24 Exam# [id number] Ordering Dr: Farhana Harden DO PROCEDURE: BRAIN W/WO CONTRAST 10/23/2024 REASON FOR EXAM: L LEG WEAKNESS TECHNIQUE: Routine brain MRI without and with intravenous contrast. Multiplanar and multisequence images were obtained. CONTRAST: Clariscan VOLUME: 19 mL IV COMPARISON: Head CT of 10/22/2024. FINDINGS: Brain: Multiple bilateral cerebral white matter changes are seen, some with radial orientation, concerning for presence of demyelinating disease, in a patient of this age. No intracranial mass or mass effect is seen. No extra-axial fluid collection is noted. No orbital pathology is identified. Following intravenous contrast administration, no area of abnormal enhancement is seen. Diffusion: No area of diffusion restriction is seen. Ventricles: Normal. Major Intracranial Vessels: No abnormality identified Sinuses: Clear. Mastoids: Clear. MRI/Brain W/WO Contrast IMPRESSION: Bilateral cerebral white matter changes, some with radial orientation, concerning for possible demyelinating disease in a patient of this age. Reading Location: [place] [address] CC: Dr. Farhana Harden DO; No Primary Care Physician Wood Preparation Supervisor: Signed Normal [facility] CBC W/Diff, Automatedon 10-10 ATYPICAL LYMPH 2+ Normal [facility] Comment on above: Performed By: #### L 501.5200, L501.2300, L500.4100, L100.0100, L500.4050 ####[facility] [address] [place], [address] SMEAR COMMENT SCANNED Normal [facility] Comment on above: Performed By: #### L 501.5200, L501.2300, L500.4100, L100.0100, L500.4050 ####[facility] [address] [place], [address] Calculated very low density lipoprotein (VLDL) cholesterol measurementOrdered By: Farhana Harden on 10-23-2024 Calculated very low density lipoprotein (VLDL) cholesterol measurement 21 mg/dL 5-40 [facility] Carbon dioxide, total [Moles /volume] in Central venous bloodOrdered By: Farhana Harden on 10-23-2024 CO2 [Moles/Vol] 17.7 mmol/L Low 21.0-32.0 [facility] Chloride assayOrdered By: Jim Harden on 10-23-2024 Chloride [Moles/Vol] 115 mmol/L High 98-108 [facility] Comprehensive Metabolic Prof ilon 10-23-2024 Albumin [Mass/Vol] 3.8 g/dL Normal 3.5-5.0 [facility] Comment on above: Order Comment: Comme nts: NPO at [place] prior to lipid panel Performed By: #### L 501.5200, L501.2300, L500.4100, L100.0100, L500.4050 ####[facility] [address] [place], [address] Albumin/Globulin [Mass ratio] 1.4 {ratio} Normal 0.9-2.4 [facility] Comment on above: Order Comment: Comme nts: NPO at [place] prior to lipid panel Performed By: #### L 501.5200, L501.2300, L500.4100, L100.0100, L500.4050 ####[facility] [address] [place], [address] ALK PHOS 47 U/L Normal 35-104 [facility] Comment on above: Order Comment: Comme nts: NPO at [place] prior to lipid panel Performed By: #### L 501.5200, L501.2300, L500.4100, L100.0100, L500.4050 ####[facility] [address] [place], [address] ALT [Catalytic activity/Vol] 14 U/L Normal <=34 [facility] Comment on above: Order Comment: Comme nts: NPO at [place] prior to lipid panel Performed By: #### L 501.5200, L501.2300, L500.4100, L100.0100, L500.4050 ####[facility] [address] [place], [address] AST [Catalytic activity/Vol] 19 U/L Normal <=31 [facility] Comment on above: Order Comment: Comme nts: NPO at [place] prior to lipid panel Performed By: #### L 501.5200, L501.2300, L500.4100, L100.0100, L500.4050 ####[facility] [address] [place], [address] Bilirubin [Mass/Vol] 0.25 mg/dL Normal 0.00-1.30 [facility] Comment on above: Order Comment: Comme nts: NPO at [place] prior to lipid panel Performed By: #### L 501.5200, L501.2300, L500.4100, L100.0100, L500.4050 ####[facility] [address] [place], [address] BUN/CRE 15.2 RATIO Normal 10-20 [facility] Comment on above: Order Comment: Comme nts: NPO at [place] prior to lipid panel Performed By: #### L 501.5200, L501.2300, L500.4100, L100.0100, L500.4050 ####[facility] [address] [place], [address] Calcium [Mass/Vol] 8.9 mg/dL Normal 7.6-11.0 [facility] Comment on above: Order Comment: Comme nts: NPO at [place] prior to lipid panel Performed By: #### L 501.5200, L501.2300, L500.4100, L100.0100, L500.4050 ####[facility] [address] [place], [address] Chloride [Moles/Vol] 115 mmol/L High 98-108 [facility] Comment on above: Order Comment: Comme nts: NPO at [place] prior to lipid panel Performed By: #### L 501.5200, L501.2300, L500.4100, L100.0100, L500.4050 ####[facility] [address] [place], [address] CO2 [Moles/Vol] 17.7 mmol/L Low 21.0-32.0 [facility] Comment on above: Order Comment: Comme nts: NPO at [place] prior to lipid panel Performed By: #### L 501.5200, L501.2300, L500.4100, L100.0100, L500.4050 ####[facility] [address] [place], [address] Creatinine [Mass/Vol] 0.90 mg/dL Normal 0.70-1.20 [facility] Comment on above: Order Comment: Comme nts: NPO at [place] prior to lipid panel Performed By: #### L 501.5200, L501.2300, L500.4100, L100.0100, L500.4050 ####[facility] [address] [place], [address] ECRCL 88.93 ml/min Normal 50-250 [facility] Comment on above: Order Comment: Comme nts: NPO at [place] prior to lipid panel Performed By: #### L 501.5200, L501.2300, L500.4100, L100.0100, L500.4050 ####[facility] [address] [place], [address] GAP 10 Normal 5-15 [facility] Comment on above: Order Comment: Comme nts: NPO at [place] prior to lipid panel Performed By: #### L 501.5200, L501.2300, L500.4100, L100.0100, L500.4050 ####[facility] [address] [place], [address] GFR/1.73 sq M.predicted among non-blacks MDRD (S/P/Bld) [Vol rate/Area] 84 mL/min/{1.73_m2} Normal >60 [facility] Comment on above: Order Comment: Comme nts: NPO at [place] prior to lipid panel Result Comment: mL/m in/1.73m2 CKD-EPI Creatinine Equation (2020) Performed By: #### L 501.5200, L501.2300, L500.4100, L100.0100, L500.4050 ####[facility] [address] [place], [address] Globulin (S) [Mass/Vol] 2.8 g/dL Normal 2.2-4.2 [facility] Comment on above: Order Comment: Comme nts: NPO at [place] prior to lipid panel Performed By: #### L 501.5200, L501.2300, L500.4100, L100.0100, L500.4050 ####[facility] [address] [place], [address] Glucose [Mass/Vol] 107 mg/dL High 70-99 [facility] Comment on above: Order Comment: Comme nts: NPO at [place] prior to lipid panel Performed By: #### L 501.5200, L501.2300, L500.4100, L100.0100, L500.4050 ####[facility] [address] [place], [address] Potassium [Moles/Vol] 3.5 mmol/L Normal 3.3-5.1 [facility] Comment on above: Order Comment: Comme nts: NPO at [place] prior to lipid panel Performed By: #### L 501.5200, L501.2300, L500.4100, L100.0100, L500.4050 ####[facility] [address] [place], [address] Sodium [Moles/Vol] 143 mmol/L Normal 133-145 [facility] Comment on above: Order Comment: Comme nts: NPO at [place] prior to lipid panel Performed By: #### L 501.5200, L501.2300, L500.4100, L100.0100, L500.4050 ####[facility] [address] [place], [address] T PROT 6.5 g/dL Normal 5.9-8.4 [facility] Comment on above: Order Comment: Comme nts: NPO at [place] prior to lipid panel Performed By: #### L 501.5200, L501.2300, L500.4100, L100.0100, L500.4050 ####[facility] [address] [place], [address] Urea nitrogen [Mass/Vol] 14 mg/dL Normal 4-19 [facility] Comment on above: Order Comment: Comme nts: NPO at [place] prior to lipid panel Performed By: #### L 501.5200, L501.2300, L500.4100, L100.0100, L500.4050 ####[facility] [address] [place], [address] Discharge Instructionon 10-10 Discharge Instruction [facility] Medical Records Department [address] [place] [address] Instructions for Home/Discharge Instructions 10/23/24 1529 MR#: [id number] Acct: [id number] Name: CODY SANTANA Rep #: [id number] : 1985 38 From: Taye Delvalle MD PCP: Care Physician,No Primary Status:ADM MARGY Discharge Instructions Diet Discharge Diet: 2000 mg Sodium Diet DC O2, CPAP, BIPAP needs Home O2 Discharge instructions: No Dressing / Incision Discharge Activity: Return to Normal Activity Weight Bearing Status: Weight bearing as tolerated Dressing / Incision Call your doctor if you observe: Fever of 101 or Higher, Coldness, Increased Pain, Numbness or Tingling, Change in Color, Inability to urinate, Inability to have a bowel movement, Shortness of b reath, Dizziness, Fainting spells, Swelling in the ankles, Chest pain, Prolonged hiccupping, Increased palpitations (irregular heartbeat) and Calf discomfort Follow Up Care When: IN 2 WEEKS Test Results: Test results from this visit will be discussed in further detail at your follow-up appointment, if applicable. Discharge Plan Admission Admit Date/Time: 10/22/24 21:51 Primary Reason for Your Visit: Atypical migraine. Stroke ruled out Attending Provider: Taye Delvalle Primary Care Provider: Care Physician,No Primary Consulting Providers: Farhana Harden Instructions Additional Instructions / Restrictions: Patient follows on neurologist in [place]. She had MRI with and without contrast short while ago. Advised to follow-up with neurologist with a new MRI. She has chronic white matter changes in brain MRI and she said she had similar findings in the previous MRI Discharge Orders/Prescriptions Prescriptions: New nicotine 14 mg/24 hr Patch 24 Hour 14 mg transdermal DAILY Qty: 28 0RF Continued acetaminophen [Tylenol] 325 mg capsule 325 mg PO ONCE PRN (Reason: Pain 1-10 Or Fever) Aimovig Autoinjector 70 mg/mL auto-injector 70 mg subcut .monthly Rx Instructions: the 8th of each month medroxyprogesterone 150 MG/ML syringe 150 mg IM .[id number] citalopram 40 MG tablet 40 mg PO DAILY haloperidol 5 MG tablet 2.5 mg PO TID PRN (Reason: Anxiety) apixaban 5 MG tablet 5 mg PO BID lidocaine [Lidoderm] 5 % adhesive patch,medicated 1 patch topical DAILY Qty: 6 0RF Rx Instructions: leave on most painful area for up to 12 hrs lamotrigine 200 mg tablet 200 mg PO DAILY Patient Comments: TAKE 1 TABLET BY MOUTH ONCE DAILY IN THE MORNING cetirizine 10 mg tablet 10 mg PO .DAILY AM famotidine 40 mg tablet 40 mg PO Q12H Patient Comments: PT TAKES AT DINNER TIME AND THEN ONE AT BEDTIME triamcinolone acetonide 55 mcg aerosol,spray 2 spray INTRANASAL DAILY Patient Comments: USE 2 SPRAY(S) INTRANASALLY ONCE DAILY montelukast 10 mg tablet 10 mg PO QHS Patient Comments: TAKE 1 TABLET BY MOUTH ONCE DAILY albuterol sulfate 90 mcg/actuation HFA aerosol inhaler 2 puff inhalation Q6H PRN (Reason: CONGESTION/ALLERGIES) methocarbamol 500 mg tablet 250 - 500 mg PO Q8H PRN (Reason: muscle spasm) cholecalciferol (vitamin D3) 25 mcg (1,000 unit) capsule 50 mcg PO DAILY topiramate 200 mg tablet 200 mg PO BID citalopram [Celexa] 40 mg tablet 40 mg PO DAILY Nurtec ODT 75 mg tablet,disintegrating 75 mg PO DAILY PRN Referrals / Follow Up: Care Physician,No Primary [Primary Care Provider] - Disposition Disposition (needs filled in before D/C Order can be placed): Home, Self Care 10/23/24 4224 Taye Delvalle MD CC: Dr. Farhana Harden DO; No Primary Care Physician Signed Normal [facility] Echocardiogram study reportO rdered By: Jan Ruby on 10-23-2024 Study report [facility] Cardiovascular Services [address] [place] [address] Echo Complete 10/23/24 1036 MR#: [id number] Acct: [id number] Name: CODY SANTANA Rep #:[id number] : 1985 38 From: Jan Gaston Attending Dr: Dr. Taye Delvalle MD Status: ADM MARGY Ordering Dr: Farhana Harden DO Date: Location: PCU Sex: F C Admitted: 10/22/24 Reason For Study Reason For Study: TIA/STROKE Procedure This was a 2D Doppler, Color Flow transthoracic echocardiogram. Exam performed portable in patient room. Left Ventricle Normal LV size. Left ventricular systolic function is normal. The left ventricular ejection fraction is 60 %. No regional wall motion abnormalities noted. Right Ventricle Normal RV size. Normal systolic function. Atria Normal left atrium. Normal right atrium. Mitral Valve Normal mitral valve. Tricuspid Valve Normal tricuspid valve. Aortic Valve Trisinus/trileaflet aortic valve. Pulmonic Valve Normal pulmonic valve. Great Vessels Normal aortic root. The pulmonary artery is normal size. Inferior vena cava collapse with respiration. Pericardium/Pleural No pericardial effusion. MMode/2D Measurements & Calculations LVIDd: 4.7 cm IVSd: 0.92 cm Ao root diam: 2.7 cm LVIDs: 3.2 cm LVPWd: 1.0 cm RVDd: 3.7 cm FS: 32.6 % LAV(MOD-bp): 42.1 ml LVAd ap4: 29.8 cm2 SV(MOD-sp4): 55.9 ml LAV(MOD-bp) Indexed: 21.8 ml/m2 LVLd ap4: 7.9 cm SI(MOD-sp4): 29.0 ml/m2 LAV(MOD-sp2): 39.5 ml EDV(MOD-sp4): 94.6 ml LAV(MOD-sp4): 44.4 ml EDV(sp4-el): 95.7 ml LVAs ap4: 16.8 cm2 LVLs ap4: 6.2 cm ESV(MOD-sp4): 38.6 ml ESV(sp4-el): 38.7 ml EF(MOD-sp4): 59.1 % EF(sp4-el): 59.5 % SV(sp4-el): 57.0 ml LA A4 area: 17.3 cm2 LA dimension(2D): 3.0 cm RA A4 area: 15.8 cm2 TAPSE: 2.3 cm Time Measurements MV dec time: 0.20 sec Doppler Measurements & Calculations MV E max reinaldo: 87.6 cm/sec Lat Peak E' Reinaldo: 18.3 cm/sec Med Peak E' Reinaldo: 13.0 cm/sec MV A max reinaldo: 66.5 cm/sec E/E' lat: 4.8 E/E' med: 6.7 MV E/A: 1.3 Ao V2 max: 134.5 cm/sec LV V1 max: 111.0 cm/sec PA V2 max: 82.9 cm/sec Ao max P.2 mmHg LV V1 max P.9 mmHg TR max reinalod: 205.7 cm/sec TR max P.9 mmHg ECHO/Echo Complete Interpretation Summary Normal LV size. Left ventricular systolic function is normal. The left ventricular ejection fraction is 60 %. Structurally normal valves. Ordering Physician: Farhana Harden Performed By: Ilda Frank RDCS 10/23/24 1320 Date _ Jan Ruby MD CC: Dr. Farhana Harden DO; Dr. Taye Delvalle MD; No Primary Care Physician ~ Date Dictated: 10/23/24 1036 Date Transcribed: 10/23/24 1320 Wood Preparation Supervisor: Signed [facility] Work Phone: Eosinophil percentageOrdered By: Farhana Harden on 10-23-2024 Eosinophils/100 WBC (Bld) 3.5 % 0-5 [facility] Erythrocyte distribution wid th ratioOrdered By: Farhana Harden on 10-23-2024 Erythrocyte distribution width (RBC) [Ratio] 14.4 % 11.6-14.6 [facility] Erythrocyte distribution wid th standard deviationOrdered By: Farhana Harden on 10-23-2024 Erythrocyte distribution width (RBC) [Ratio] 49.9 fl High 35.1-43.9 [facility] Glomerular filtration rate ( GFR) estimation/1.73 sq m using serum, plasma, or whole bOrdered By: Farhana Harden on 10-23-2024 GFR/1.73 sq M.predicted among non-blacks MDRD (S/P/Bld) [Vol rate/Area] 84 mL/min/{1.73_m2} >60 [facility] Comment on above: mL/min/1.73m2 CKD-EP I Creatinine Equation (2020) Hematocrit Auto (Bld) [Volum e fraction]Ordered By: Farhana Harden on 10-23-2024 Hematocrit (Bld) [Volume fraction] 34.5 % Low 37-47 [facility] Hemoglobin measurementOrdere d By: Frahana Harden on 10-23-2024 Hemoglobin (Bld) [Mass/Vol] 11.5 g/dL Low 12.0-15.0 [facility] Immature granulocytes/100 WB C Auto (Bld)Ordered By: Farhana Harden on 10-23-2024 Immature granulocytes/100 WBC (Bld) 0.200 % 0.0-0.9 [facility] Comment on above: IG% - Immature Granu locytes (promyelocytes, myelocytes and metamyelocytes) > 1% indicates that a LEFT SHIFT is Present. L499.0043on 10-23-2024 Trop T High Sen < 6 Normal <=14 [facility] Comment on above: Performed By: #### L 499.0043 #### [facility] Laboratory [address] [place], [address] LDL calc ser/plasOrdered By: Farhana Harden on 10-23-2024 Cholesterol in LDL [Mass/Vol] 105 mg/dL [facility] Comment on above: Zhoivslzvk=023-727 m g/dL & Higher Cghj=753 mg/dL or greater Laboratory - Chemistry and C hemistry - challengeOrdered By: Farhana Harden on 10-23-2024 AST [Catalytic activity/Vol] 19 U/L <32 [facility] Lipid Profileon 10-23-2024 CHOL:HDL 4.75 Normal [facility] Comment on above: Order Comment: Comme nts: NPO at [place] prior to lipid panel Performed By: #### L 501.5200, L501.2300, L500.4100, L100.0100, L500.4050 ####[facility] [address] [place], [address] Cholesterol [Mass/Vol] 160 mg/dL Normal <=200 [facility] Comment on above: Order Comment: Comme nts: NPO at [place] prior to lipid panel Result Comment: Chol esterol level, Desirable <200 mg/dL Borderline high cholesterol 200-239 mg/dL High cholesterol >=240 mg/dL Recommendations of the NCEP Adult Treatment Panel for the following risk-cutoff thresholds for the [place] population. Performed By: #### L 501.5200, L501.2300, L500.4100, L100.0100, L500.4050 ####[facility] [address] [place], [address] Cholesterol in HDL [Mass/Vol] 34 mg/dL Low [facility] Comment on above: Order Comment: Comme nts: NPO at [place] prior to lipid panel Result Comment: Esperanza onal Cholesterol Education Program (NCEP) guidelines: <40 mg/dL: Low HDL-cholesterol (major risk factor for CHD) >= 60 mg/dL: High HDL-cholesterol (negative risk factor for CHD) HDL-cholesterol is affected by a number of factors, e.g. smoking, exercise, hormones, sex and age. Performed By: #### L 501.5200, L501.2300, L500.4100, L100.0100, L500.4050 ####[facility] [address] [place], [address] Cholesterol in LDL [Mass/Vol] 105 mg/dL Normal [facility] Comment on above: Order Comment: Comme nts: NPO at [place] prior to lipid panel Result Comment: Bord agtqly=129-390 mg/dL Higher Hjee=771 mg/dL or greater Performed By: #### L 501.5200, L501.2300, L500.4100, L100.0100, L500.4050 ####[facility] [address] [place], [address] Cholesterol in VLDL [Mass/Vol] 21 mg/dL Normal 5-40 [facility] Comment on above: Order Comment: Comme nts: NPO at [place] prior to lipid panel Performed By: #### L 501.5200, L501.2300, L500.4100, L100.0100, L500.4050 ####[facility] [address] [place], [address] Triglyceride [Mass/Vol] 106 mg/dL Normal [facility] Comment on above: Order Comment: Comme nts: NPO at [place] prior to lipid panel Result Comment: The drugs N-Acetylcysteine and Metamizole may falsely depress this assay. Normal range: <150 mg/dL Borderline High: 150-199 mg/dL High: 200-499 mg/dL Very High: >500 mg/dL Performed By: #### L 501.5200, L501.2300, L500.4100, L100.0100, L500.4050 ####[facility] [address] [place], [address] MCV (mean corpuscular volume ) determinationOrdered By: Farhana Harden on 10-23-2024 MCV (RBC) [Entitic vol] 94.5 fL 81-99 [facility] Magnesiumon 10-23-2024 Magnesium [Mass/Vol] 2.1 mg/dL Normal 1.5-2.2 [facility] Comment on above: Order Comment: Comme nts: NPO at [place] prior to lipid panel Performed By: #### L 501.5200, L501.2300, L500.4100, L100.0100, L500.4050 ####[facility] [address] [place], [address] Magnesium measurement (mass/ volume)Ordered By: Farhana Harden on 10-23-2024 Magnesium (Unsp spec) [Mass/Vol] 2.1 mg/dL 1.5-2.2 [facility] Magnetic resonance imaging r eportOrdered By: Lucina Garg on 10-23-2024 Study report [facility] Imaging Services [address], [place] [id number] Brain W/WO Contrast MR#: [id number] Acct: [id number] Name: CODY SANTANA Rep #: [id number] : 1985 F 38 From: Austin Garg MD PCP: Care Physician,No Primary Status: ADM MARGY Study:Brain W/WO Contrast Date of Exam: 10/23/24 Exam# [id number] Ordering Dr: Michelle Harden DO PROCEDURE: BRAIN W/WO CONTRAST 10/23/2024 REASON FOR EXAM: L LEG WEAKNESS TECHNIQUE: Routine brain MRI without and with intravenous contrast. Multiplanar and multisequence images were obtained. CONTRAST: Clariscan VOLUME: 19 mL IV COMPARISON: Head CT of 10/22/2024. FINDINGS: Brain: Multiple bilateral cerebral white matter changes are seen, some with radial orientation, concerning for presence of demyelinating disease, in a patient of this age. No intracranial mass or mass effect is seen. No extra-axial fluid collection isnoted. No orbital pathology is identified. Following intravenous contrast administration, no area of abnormal enhancement is seen. Diffusion: No area of diffusion restriction is seen. Ventricles: Normal. Major Intracranial Vessels: No abnormality identified Sinuses: Clear. Mastoids: Clear. MRI/Brain W/WO Contrast IMPRESSION: Bilateral cerebral white matter changes, some with radial orientation, concerning for possible demyelinating disease in a patient of this age. Reading Location: [place] [address] CC: Dr. Farhana Harden DO; No Primary Care Physician ~ Wood Preparation Supervisor: Signed [facility] Mean corpuscular hemoglobin (MCH) determinationOrdered By: Farhana Harden on 10-23-2024 MCH (RBC) [Entitic mass] 31.5 pg 27.0-32.0 [facility] Mean corpuscular hemoglobin concentration (MCHC) determinationOrdered By: Farhana Harden on 10-23-2024 MCHC (RBC) [Mass/Vol] 33.3 g/dL 32-36 [facility] Mean platelet volume determi nationOrdered By: Farhana Harden on 10-23-2024 Platelet mean volume (Bld) [Entitic vol] 10.3 fL 6.2-12.0 [facility] Monocyte percentageOrdered B y: Farhana Harden on 10-23-2024 Monocytes/100 WBC (Bld) 7.5 % 0-10 [facility] Neutrophil percentageOrdered By: Farhana Harden on 10-23-2024 Neutrophils/100 WBC (Bld) 38.1 % Low 47-70 [facility] Nucleated red blood cell per centageOrdered By: Farhana Harden on 10-23-2024 Nucleated RBC/100 WBC (Bld) [Ratio] 0 % 0-5 [facility] Phosphoruson 10-23-2024 Phosphate [Mass/Vol] 3.7 mg/dL Normal 2.7-4.5 [facility] Comment on above: Order Comment: Comme nts: NPO at [place] prior to lipid panel Performed By: #### L 501.5200, L501.2300, L500.4100, L100.0100, L500.4050 ####[facility] [address] [place], [place], [address] Platelet countOrdered By: Jim Harden on 10-23-2024 Platelets (Bld) [#/Vol] 182 10*3/uL 150-450 [facility] Potassium measurement (mass/ volume)Ordered By: Farhana Harden on 10-23-2024 Potassium (Unsp spec) [Mass/Vol] 3.5 mmol/L 3.3-5.1 [facility] RBC Auto (Bld) [#/Vol]Ordere d By: Farhana Harden on 10-23-2024 RBC (Bld) [#/Vol] 3.65 10*6/uL Low 4.2-5.4 [facility] Screening total cholesterol/ high density lipoprotein (HDL) cholesterol ratioOrdered By: Farhana Harden on 10-23-2024 Cholesterol.total/Chol esterol in HDL [Mass ratio] 4.75 {ratio} [facility] Serum creatinine measurement (mass/volume)Ordered By: Farhana Harden on 10-23-2024 Creatinine [Mass/Vol] 0.90 mg/dL 0.70-1.20 [facility] Serum globulin measurementOr dered By: Farhana Harden on 10-23-2024 Globulin (S) [Mass/Vol] 2.8 g/dL 2.2-4.2 [facility] Serum glucose measurement (m ass/volume)Ordered By: Farhana Harden on 10-23-2024 Glucose [Mass/Vol] 107 mg/dL High 70-99 [facility] Serum or plasma alanine rachel otransferase (ALT) measurementOrdered By: Farhana Harden on 10-23-2024 ALT [Catalytic activity/Vol] 14 U/L <35 [facility] Serum or plasma albumin mykel urement (mass/volume)Ordered By: Farhana Harden on 10-23-2024 Albumin [Mass/Vol] 3.8 g/dL 3.5-5.0 [facility] Serum or plasma albumin/glob ulin mass ratioOrdered By: Farhana Harden on 10-23-2024 Albumin/Globulin [Mass ratio] 1.4 {ratio} 0.9-2.4 [facility] Serum or plasma alkaline liborio sphatase measurementOrdered By: Farhana Harden on 10-23-2024 ALP [Catalytic activity/Vol] 47 U/L 35-104 [facility] Serum or plasma calcium mykel urement (mass/volume)Ordered By: Farhana Harden on 10-23-2024 Calcium [Mass/Vol] 8.9 mg/dL 7.6-11.0 [facility] Serum or plasma cholesterol in HDL measurement (mass/volume)Ordered By: Farhana Harden on 10-23-2024 Cholesterol in HDL [Mass/Vol] 34 mg/dL Low >40 [facility] Comment on above: National Cholesterol Education Program (NCEP) guidelines:<40 mg/dL: Low HDL-cholesterol (major risk factor for CHD)>= 60 mg/dL: High HDL-cholesterol (negative risk factor for CHD)HDL-cholesterol is affected by a number of factors, e.g. smoking, exercise, hormones, sex and age. Serum or plasma cholesterol measurement (mass/volume)Ordered By: Farhana Harden on 10-23-2024 Cholesterol [Mass/Vol] 160 mg/dL <201 [facility] Comment on above: Cholesterol level, D esirable <200 mg/dLBorderline high cholesterol 200-239 mg/dLHigh cholesterol >=240 mg/dLRecommendations of the NCEP Adult Treatment Panel for the following risk-cutoff thresholds for the [place] population. Serum or plasma urea nitroge n measurement (mass/volume)Ordered By: Farhana Harden on 10-23-2024 Urea nitrogen [Mass/Vol] 14 mg/dL 4-19 [facility] Sodium levelOrdered By: Michelle Harden on 10-23-2024 Sodium [Moles/Vol] 143 mmol/L 133-145 [facility] Total proteinOrdered By: Jemma Harden on 10-23-2024 Protein [Mass/Vol] 6.5 g/dL 5.9-8.4 [facility] Triglycerides measurementOrd ered By: Farhana Harden on 10-23-2024 Triglyceride [Mass/Vol] 106 mg/dL <199 [facility] Comment on above: The drugs N-Acetylcy steine and Metamizole may falsely depress this assay. Normal range: <150 mg/dLBorderline High: 150-199 mg/dLHigh: 200-499 mg/dLVery High: >500 mg/dL Troponin T.cardiac [Mass/vol ume] in Serum or Plasma by High sensitivity methodOrdered By: Jeremy Gerard on 10-23-2024 Troponin T.cardiac High sensitivity method [Mass/Vol] < 6 ng/L <14 [facility] White blood cell (WBC) count Ordered By: Farhana Harden on 10-23-2024 WBC (Bld) [#/Vol] 6.6 10*3/uL 4.4-11.0 [facility] 12 Lead EKGon 10-22-2024 12 Lead EKG [facility] Cardiovascular Services [address] [place] [address] 12 Lead EKG 10/22/24 2153 MR#: [id number] Acct: [id number] Name: CODY SANTANA Rep #: [id number] : 1985 38 From: Jerome Fall MD Attending Dr: Dr. Taye Delvalle MD Status: DIS MARGY Ordering Dr: Jeremy Gerard DO Date: 10/22/24 Location: [facility] Sex: F C Admitted: 10/22/24 Test Reason : DYSRHYTHMIA Blood Pressure : */* mmHG Vent. Rate : 64 BPM Atrial Rate : 64 BPM P-R Int : 152 ms QRS Dur : 82 ms QT Int : 388 ms P-R-T Axes : 62 27 21 degrees QTcB Int : 400 ms Normal sinus rhythm Normal ECG Confirmed by Jerome Fall ([id number]), continuity editor ELI LAIRD ([id number]) on 2024 10:02:03 AM Referred By: Confirmed By: Jerome Fall 10/24/241001 Date Jerome Fall MD CC: Dr. Taye Delvalle MD; Dr. Jeremy Gerard, DO; No Primary Care Physician Signed Normal [facility] Absolute lymphocyte countOrd ered By: Jeremy Gerard on 10-22-2024 Lymphocytes Auto (Unsp spec) [#/Vol] 2.80 10*3/uL 0.83-4.51 [facility] Absolute neutrophil countOrd ered By: Jeremy Gerard on 10-22-2024 Neutrophils (Bld) [#/Vol] 2.9 10*3/uL 2.0-7.7 [facility] Activated partial thrombopla stin time (aPTT) in platelet poor plasma by coagulation aOrdered By: Jeremy Gerard on 10-22-2024 aPTT Coag (PPP) [Time] 30.8 s 24.1-36.2 [facility] Anion gap in Serum or Plasma Ordered By: Jeremy Gerard on 10-22-2024 Anion gap [Moles/Vol] 11 mmol/L 10-24 [facility] Automated lymphocyte count a s percentage of total leukocytesOrdered By: Jeremy Gerard on 10-22-2024 Lymphocytes/100 WBC Auto (Unsp spec) 43.7 % High 19-41 [facility] BUN/creatinine ratioOrdered By: Jeremy Gerard on 10-22-2024 Urea nitrogen/Creatinine [Mass ratio] 12.1 mg/mg 10- [facility] Basic Metabolic Profile (BMP )on 10-22-2024 BUN/CRE 12.1 RATIO Normal - [facility] Comment on above: Performed By: #### L 300.4310, L500.2500, L501.4021, L300.3900, L100.0100 ####[facility] [address] [place], [address] Calcium [Mass/Vol] 9.3 mg/dL Normal 7.6-11.0 [facility] Comment on above: Performed By: #### L 300.4310, L500.2500, L501.4021, L300.3900, L100.0100 ####[facility] [address] [place], [address] Chloride [Moles/Vol] 110 mmol/L High 98-108 [facility] Comment on above: Performed By: #### L 300.4310, L500.2500, L501.4021, L300.3900, L100.0100 ####[facility] [address], [address] CO2 [Moles/Vol] 18.2 mmol/L Low 21.0-32.0 [facility] Comment on above: Performed By: #### L 300.4310, L500.2500, L501.4021, L300.3900, L100.0100 ####[facility] [address] [place], [address] Creatinine [Mass/Vol] 0.97 mg/dL Normal 0.70-1.20 [facility] Comment on above: Performed By: #### L 300.4310, L500.2500, L501.4021, L300.3900, L100.0100 ####[facility] [address] [place], [address] ECRCL 84.27 ml/min Normal 50-250 [facility] Comment on above: Performed By: #### L 300.4310, L500.2500, L501.4021, L300.3900, L100.0100 ####[facility] [address] [place], [address] GAP 11 Normal 5-15 [facility] Comment on above: Performed By: #### L 300.4310, L500.2500, L501.4021, L300.3900, L100.0100 ####[facility] [address] [place], [address] GFR/1.73 sq M.predicted among non-blacks MDRD (S/P/Bld) [Vol rate/Area] 78 mL/min/{1.73_m2} Normal >60 [facility] Comment on above: Result Comment: mL/m in/1.73m2 CKD-EPI Creatinine Equation (2020) Performed By: #### L 300.4310, L500.2500, L501.4021, L300.3900, L100.0100 ####[facility] [address] [place], [address] Glucose [Mass/Vol] 79 mg/dL Normal 70-99 [facility] Comment on above: Performed By: #### L 300.4310, L500.2500, L501.4021, L300.3900, L100.0100 ####[facility] [address] [place], [address] Potassium [Moles/Vol] 3.4 mmol/L Normal 3.3-5.1 [facility] Comment on above: Performed By: #### L 300.4310, L500.2500, L501.4021, L300.3900, L100.0100 ####[facility] [address] [place], [address] Sodium [Moles/Vol] 139 mmol/L Normal 133-145 [facility] Comment on above: Performed By: #### L 300.4310, L500.2500, L501.4021, L300.3900, L100.0100 ####[facility] [address] [place], [address] Urea nitrogen [Mass/Vol] 12 mg/dL Normal 4-19 [facility] Comment on above: Performed By: #### L 300.4310, L500.2500, L501.4021, L300.3900, L100.0100 ####[facility] [address] [place], [address] Basophil percentageOrdered B y: Jeremy Gerard on 10-22-2024 Basophils/100 WBC (Bld) 0.6 % 0-1 [facility] Bedside Glucoseon 10-22-2024 FINGERSTICK GLU 88 mg/dL Normal 74-106 [facility] Comment on above: Result Comment: MORAIMA PRYOR OF PATIENT CARE PER NURSING PROTOCOL Performed By: #### L 501.080 #### [facility] Laboratory [address] [place], [address] Blood manual differential co mment interpretation (narrative result)Ordered By: Jeremy Gerard on 10-22-2024 Manual differential comment Bro (Bld) [Interp] SCANNED [facility] CBC W/Diff, Automatedon 10-10 ATYPICAL LYMPH 2+ Normal [facility] Comment on above: Performed By: #### L 300.4310, L500.2500, L501.4021, L300.3900, L100.0100 ####[facility] [address] [place], [address] SMEAR COMMENT SCANNED Normal [facility] Comment on above: Performed By: #### L 300.4310, L500.2500, L501.4021, L300.3900, L100.0100 ####[facility] [address] [place], [address] Carbon dioxide, total [Moles /volume] in Central venous bloodOrdered By: Jeremy Gerard on 10-22-2024 CO2 [Moles/Vol] 18.2 mmol/L Low 21.0-32.0 [facility] Chloride assayOrdered By: Sanya Gerard on 10-22-2024 Chloride [Moles/Vol] 110 mmol/L High 98-108 [facility] Echo Completeon 10-22-2024 Echo Complete [facility] Cardiovascular Services [address] [place] [address] Echo Complete 10/23/24 1036 MR#: [id number] Acct: [id number] Name: CODY SANTANA Rep #: [id number] : 1985 38 From: Jan Ruby MD Attending Dr: Dr. Taye Delvalle MD Status: ADM MARGY Ordering Dr: Farhana Harden DO Date: 10/22/24 Location: [facility] Sex: F C Admitted: 10/22/24 Reason For Study Reason For Study: TIA/STROKE Procedure This was a 2D Doppler, Color Flow transthoracic echocardiogram. Exam performed portable in patient room. Left Ventricle Normal LV size. Left ventricular systolic function is normal. The left ventricular ejection fraction is 60 %. No regional wall motion abnormalities noted. Right Ventricle Normal RV size. Normal systolic function. Atria Normal left atrium. Normal right atrium. Mitral Valve Normal mitral valve. Tricuspid Valve Normal tricuspid valve. Aortic Valve Trisinus/trileaflet aortic valve. Pulmonic Valve Normal pulmonic valve. Great Vessels Normal aortic root. The pulmonary artery is normal size. Inferior vena cava collapse with respiration. Pericardium/Pleural No pericardial effusion. MMode/2D Measurements Calculations LVIDd: 4.7 cm IVSd: 0.92 cm Ao root diam: 2.7 cm LVIDs: 3.2 cm LVPWd: 1.0 cm RVDd: 3.7 cm FS: 32.6 % LAV(MOD-bp): 42.1 ml LVAd ap4: 29.8 cm2 SV(MOD-sp4): 55.9 ml LAV(MOD-bp) Indexed: 21.8 ml/m2 LVLd ap4: 7.9 cm SI(MOD-sp4): 29.0 ml/m2 LAV(MOD-sp2): 39.5 ml EDV(MOD-sp4): 94.6 ml LAV(MOD-sp4): 44.4 ml EDV(sp4-el): 95.7 ml LVAs ap4: 16.8 cm2 LVLs ap4: 6.2 cm ESV(MOD-sp4): 38.6 ml ESV(sp4-el): 38.7 ml EF(MOD-sp4): 59.1 % EF(sp4-el): 59.5 % SV(sp4-el): 57.0 ml LA A4 area: 17.3 cm2 LA dimension(2D): 3.0 cm RA A4 area: 15.8 cm2 TAPSE: 2.3 cm Time Measurements MV dec time: 0.20 sec Doppler Measurements Calculations MV E max reinaldo: 87.6 cm/sec Lat Peak E' Reinaldo: 18.3 cm/sec Med Peak E' Reinaldo: 13.0 cm/sec MV A max reinaldo: 66.5 cm/sec E/E' lat: 4.8 E/E' med: 6.7 MV E/A: 1.3 Ao V2 max: 134.5 cm/sec LV V1 max: 111.0 cm/sec PA V2 max: 82.9 cm/sec Ao max P.2 mmHg LV V1 max P.9 mmHg TR max reinaldo: 205.7 cm/sec TR max P.9 mmHg ECHO/Echo Complete Interpretation Summary Normal LV size. Left ventricular systolic function is normal. The left ventricular ejection fraction is 60 %. Structurally normal valves. Ordering Physician: Farhana Harden Performed By: Ilda Frank RDCS 10/23/24 1320 Date Jan Ruby MD CC: Dr. Farhana Harden DO; Dr. Taye Delvalle MD; No Primary Care Physician Date Dictated: 10/23/24 1036 Date Transcribed: 10/23/24 1320 Wood Preparation Supervisor: Signed Normal [facility] Emergency Department Summary on 10-22-2024 Emergency Department Summary [facility] Medical Records Department [address] [place] [address] Emergency Department Summary 10/22/24 MR#: [id number] Acct: [id number] Name: CODY SANTANA Rep #: [id number] : 1985 38 From: Jeremy Larose PCP: Care Physician,No Primary Status:ADM MARGY Location: [place] [address] HPI History of Present Illness Chief Complaint: General Illness Informant: patient and EMS Narrative Narrative: Presents with difficulty getting words out while at work. This was a little over an hour ago. She states on the phone with her daughter. She is dealing with migraine for 2 weeks now. No head injuries. Denies any weakness or hemiparesis. She states similar symptoms when she had a TIA stating either this past April the year before that. She is on Eliquis for factor V Leiden with blood clots in the past her last dose was at noon for which she takes at noon and at midnight after work. Prior similar symptoms: Yes PFSH PFSH Medical History Lumbar pain with radiation down right leg Dental caries Brain TIA Dysarthria Chronic migraine Anxiety and depression History of venous thromboembolism Obesity Tobacco use History of nephrolithiasis Chronic neck and back pain Factor 5 Leiden mutation, heterozygous Home Medications ???Medication ???Instructions ???Recorded ???Last Taken ???Type medroxyprogesterone 150 mg/mL 150 mg IM .[id number] control 01/30/15 08/24/24 11:00 History intramuscular syringe 150 mg citalopram 40 mg tablet 40 mg PO DAILY mental health 04/0410/22/24 10:00 History 40 mg haloperidol 5 mg tablet 2.5 mg PO TID PRN Anxiety 04/04/19 Unknown History apixaban 5 mg tablet 5 mg PO BID blood thinner 06/03/20 10/22/24 12:30 History 5 mg acetaminophen 325 mg capsule 325 mg PO ONCE PRN Pain 1-10 Or Unknown History (Tylenol) Fever lidocaine 5 % topical patch 1 patch topical DAILY pain #6 ea 1 06/13/20 09/20/24 11:00 Rx (Lidoderm) 1 patch albuterol sulfate 90 mcg/actuation 2 puff inhalation Q6H PRN Unknown History aerosol inhaler CONGESTION/ALLERGIES cetirizine 10 mg tablet 10 mg PO .DAILY AM allergies 03/1510/22/24 10:00 History 10 mg famotidine 40 mg tablet 40 mg PO Q12H reflux 03/15/23 05/08/06 23:00 History 40 mg lamotrigine 200 mg tablet 200 mg PO DAILY bipolar 03/15/23 0 10/22/24 11:00 History 200 mg montelukast 10 mg tablet 10 mg PO QHS allergies 03/15/23 22:00 History 10 mg triamcinolone acetonide 55 mcg 2 spray intranasal DAILY 03/15/23 10/18/24 11:00 History nasal spray aerosol 2 spray rimegepant 75 mg disintegrating 75 mg PO DAILY PRN MIGRAINE 10/21/24 20:00 History tablet (Nurtec ODT) 75 mg erenumab-aooe 70 mg/mL 70 mg subcut .monthly 10/31/2302/03 10:00 History subcutaneous auto-injector 70 mg (Aimovig Autoinjector) methocarbamol 500 mg tablet 250 - 500 mg PO Q8H PRN muscle 02/0310/01/24 11:00 History spasm 500 mg cholecalciferol (vitamin D3) 25 50 mcg PO DAILY 10/22/24 10/22/24 10:00 History mcg (1,000 unit) capsule 50 mcg citalopram 40 mg tablet (Celexa) 40 mg PO DAILY 10/22/24 Unknown Hi story topiramate 200 mg tablet 200 mg PO BID 10/22/24 10/22/24 11 :00 History 200 mg Allergy/AdvReac Type Severity Reaction Status Date / Time acetaminophen (From [place]) Allergy Itching Verified 10/22/24 20:55 hydrocodone (From [place]) Allergy Itching Verified 10/22/24 20:55 oxycodone (From Percocet) AdvReac Intermediate Itching Verified 10/22/24 20:55 cephalexin monohydrate (From AdvReac WEAKNESS, Verified 10/22/24 20:55 Keflex) MUSCLE ACHES Family History Mother Heart disease CVA (cerebral vascular accident) Diabetes Father No problems noted. Surgical History S/P cervical spinal fusion History of toe surgery History of carpal tunnel release Social History household members: other details: Lives in her home with her 3 children, youngest 9. Smoking Status: Current every day smoker tobacco type: cigarettes, e-cigarettes and smokeless tobacco alcohol intake: never substance use type: does not use ROS ROS ED Constitutional Constitutional ED: Denies chills, fever(s) or sweats ENT ENT ED: Denies sore throat Cardiovascular Cardiovascular: Denies chest pain, leg edema, palpitations or racing heartbeat Respiratory/Chest Respiratory/Chest: Denies cough, dyspnea or dyspnea on exertion Gastrointestinal Gastrointestinal: Denies abdominal pain, diarrhea, nausea or vomiting Genitourinary Genitourinary ED: Denies dysuria, hematuria or urinary frequency Muscul (more content not included)... Normal [facility] Eosinophil percentageOrdered By: Jeremy Gerard on 10-22-2024 Eosinophils/100 WBC (Bld) 2.2 % 0-5 [facility] Erythrocyte distribution wid th ratioOrdered By: Jeremy Gerard on 10-22-2024 Erythrocyte distribution width (RBC) [Ratio] 14.1 % 11.6-14.6 [facility] Erythrocyte distribution wid th standard deviationOrdered By: Jeremy Gerard on 10-22-2024 Erythrocyte distribution width (RBC) [Ratio] 48.1 fl High 35.1-43.9 [facility] Glomerular filtration rate ( GFR) estimation/1.73 sq m using serum, plasma, or whole bOrdered By: Jeremy Gerard on 10-22-2024 GFR/1.73 sq M.predicted among non-blacks MDRD (S/P/Bld) [Vol rate/Area] 78 mL/min/{1.73_m2} >60 [facility] Comment on above: mL/min/1.73m2 CKD-EP I Creatinine Equation (2020) [facility]dered By: Jeremy Gerard on 10-22-2024 Glucose [Mass/Vol] 88 mg/dL 74-106 [facility] Comment on above: MANAGEMENT OF PATIEN T CARE PER NURSING PROTOCOL H AND P Exam - Hospitaliston 10-22-2024 H&P Exam - Hospitalist [facility] Medical Records Department [address] [place] [address] H P Exam - Hospitalist 10/22/24 2150 MR#: [id number] Acct: [id number] Name: CODY SANTANA Rep #: [id number] : 1985 38 From: Farhana Harden DO PCP: Care Physician,No Primary Status:ADM MARGY Location: [place] [address] HPI - General General Date of Admission: 10/22/24 Date of Service: 10/23/24 Chief Complaint: Left leg weakness/expressive aphasia/slurred speech/right arm paresthesias HPI Narrative CODY SANTANA, is a 38 F who presented to the emergency department [facility] on 10/23/2023 with a chief complaint of left leg weakness, expressive aphasia, slurred speech, and right arm paresthesias. She has a history of factor V Leiden and takes Eliquis chronically. She was admitted here in August 2023 at which time she had workup for TIA. She was evaluated by neurology and at that time they thought she was suffering from complex migraines. Her symptoms at this time are again associated with. She states her headache started prior to symptoms. Her symptoms started about an hour prior to presentation. She was on the phone with her daughter. She has had ongoing headaches on and off that are migrainous in nature for the last 2 weeks and is waiting for pre-CERT on her chronic migraine medication. Initial NIH was 3. She was scored a 3 for slight left lid droop, slight left leg drift and slight paresthesias in the right arm. She was evaluated by [facility] neurology and they agreed no TNK due to the Eliquis however recommended treatment of her headache and admission to the hospital for MRI. Vital signs on presentation showed temperature of 98.2, heart rate 74, respiratory rate was 14, blood pressure 133/82 and pulse ox was 99% on room air. CBC showed a mild anemia with hemoglobin 11.9 but was otherwise unremarkable. Coags were normal. Chemistry panel was unremarkable. Troponin was 7 with a delta of less than 6. EKG was sinus rhythm with normal intervals and no ST-T wave changes concerning for acute ischemia. CT of the brain was unremarkable. CTA of the head and neck was unremarkable. With neuro's recommendation will be admitted for completion of stroke workup. Anticipate length of stay to be less than 48 hours. [facility] Medical History Lumbar pain with radiation down right leg Dental caries Brain TIA Dysarthria Chronic migraine Anxiety and depression History of venous thromboembolism Obesity Tobacco use History of nephrolithiasis Chronic neck and back pain Factor 5 Leiden mutation, heterozygous Home Medications ???Medication ???Instructions ???Recorded ???Last Taken ???Type medroxyprogesterone 150 mg/mL 150 mg IM .[id number] control 01/30/15 08/24/24 11:00 History intramuscular syringe 150 mg citalopram 40 mg tablet 40 mg PO DAILY mental health 04/0410/22/24 10:00 History 40 mg haloperidol 5 mg tablet 2.5 mg PO TID PRN Anxiety 04/04/19 Unknown History apixaban 5 mg tablet 5 mg PO BID blood thinner 06/03/20 10/22/24 12:30 History 5 mg acetaminophen 325 mg capsule 325 mg PO ONCE PRN Pain 1-10 Or Unknown History (Tylenol) Fever lidocaine 5 % topical patch 1 patch topical DAILY pain #6 ea 1 06/13/20 09/20/24 11:00 Rx (Lidoderm) 1 patch albuterol sulfate 90 mcg/actuation 2 puff inhalation Q6H PRN Unknown History aerosol inhaler CONGESTION/ALLERGIES cetirizine 10 mg tablet 10 mg PO .DAILY AM allergies 03/1510/22/24 10:00 History 10 mg famotidine 40 mg tablet 40 mg PO Q12H reflux 03/15/2310/10 23:00 History 40 mg lamotrigine 200 mg tablet 200 mg PO DAILY bipolar 03/15/23 0 10/22/24 11:00 History 200 mg montelukast 10 mg tablet 10 mg PO QHS allergies 03/15/23 22:00 History 10 mg triamcinolone acetonide 55 mcg 2 spray intranasal DAILY 03/15/23 10/18/24 11:00 History nasal spray aerosol 2 spray rimegepant 75 mg disintegrating 75 mg PO DAILY PRN MIGRAINE 10/21/24 20:00 History tablet (Nurtec ODT) 75 mg erenumab-aooe 70 mg/mL 70 mg subcut .monthly 10/31/2302/03 10:00 History subcutaneous auto-injector 70 mg (Aimovig Autoinjector) methocarbamol 500 mg tablet 250 - 500 mg PO Q8H PRN muscle 02/0310/01/24 11:00 History spasm 500 mg cholecalciferol (vitamin D3) 25 50 mcg PO DAILY 10/22/24 10/22/24 10:00 History mcg (1,000 unit) capsule 50 mcg citalopram 40 mg tablet (Celexa) 40 mg PO DAILY 10/22/24 Unknown Hi story topiramate 200 mg tablet 200 mg PO BID 10/22/24 10/22/24 11 :00 History 200 mg Allergy/AdvReac Type Severity Reaction Status Date / Time acetaminophen (From [facility]) Allergy Itching Verified 10/22/24 20:55 hydrocodone (From [facility]) Allergy Itching Verified 10/22/24 20:55 (more content not included)... Normal [facility] Hematocrit Auto (Bld) [Volum e fraction]Ordered By: Jeremy Gerard on 10-22-2024 Hematocrit (Bld) [Volume fraction] 34.9 % Low 37-47 [facility] Hemoglobin A1con 10-22-2024 HbA1c (Bld) [Mass fraction] 5.1 % Normal <=5.6 [facility] Comment on above: Result Comment: Norm al < 5.7 % Prediabetic 5.7 - 6.4 % Diabetic >or= 6.5 % Please note range changes. Performed By: #### L 501.0589 #### [facility] [address] [place], [place] [address]ney. [place], [place], [id number] Hemoglobin A1c percentageOrd ered By: Farhana Harden on 10-22-2024 HbA1c (Bld) [Mass fraction] 5.1 % <5.7 [facility] Comment on above: Normal < 5.7 % Predi abetic 5.7 - 6.4 % Diabetic >or= 6.5 % Please note range changes. Hemoglobin measurementOrdere d By: Jeremy Gerard on 10-22-2024 Hemoglobin (Bld) [Mass/Vol] 11.9 g/dL Low 12.0-15.0 [facility] Immature granulocytes/100 WB C Auto (Bld)Ordered By: Jeremy Gerard on 10-22-2024 Immature granulocytes/100 WBC (Bld) 0.200 % 0.0-0.9 [facility] Comment on above: IG% - Immature Granu locytes (promyelocytes, myelocytes and metamyelocytes) > 1% indicates that a LEFT SHIFT is Present. International normalized rat io (INR) calculationOrdered By: Jeremy Gerard on 10-22-2024 INR Coag (Bld) [Relative time] 1.1 {INR} [facility] L499.0042on 10-22-2024 Trop T High Sen < 6 Normal <=14 [facility] Comment on above: Performed By: #### L 499.0042 ####[facility] [address] [place], [address] L501.4021on 10-22-2024 Trop T High Sen 7 ng/L Normal <=14 [facility] Comment on above: Performed By: #### L 300.4310, L500.2500, L501.4021, L300.3900, L100.0100 ####[facility] [address] [place], [address] MCV (mean corpuscular volume ) determinationOrdered By: Jeremy Gerard on 10-22-2024 MCV (RBC) [Entitic vol] 92.6 fL 81-99 [facility] Mean corpuscular hemoglobin (MCH) determinationOrdered By: Jeremy Gerard on 10-22-2024 MCH (RBC) [Entitic mass] 31.6 pg 27.0-32.0 [facility] Mean corpuscular hemoglobin concentration (MCHC) determinationOrdered By: Jeremy Gerard on 10-22-2024 MCHC (RBC) [Mass/Vol] 34.1 g/dL 32-36 [facility] Mean platelet volume determi nationOrdered By: Jeremy Gerard on 10-22-2024 Platelet mean volume (Bld) [Entitic vol] 10.5 fL 6.2-12.0 [facility] Monocyte percentageOrdered B y: Jeremy Gerard on 10-22-2024 Monocytes/100 WBC (Bld) 8.6 % 0-10 [facility] Neutrophil percentageOrdered By: Jeremy Gerard on 10-22-2024 Neutrophils/100 WBC (Bld) 44.7 % Low 47-70 [facility] Nucleated red blood cell per centageOrdered By: Jeremy Gerard on 10-22-2024 Nucleated RBC/100 WBC (Bld) [Ratio] 0 % 0-5 [facility] Partial Thromboplast Timeon 10-22-2024 aPTT Coag (Bld) [Time] 30.8 s Normal 24.1-36.2 [facility] Comment on above: Performed By: #### L 300.4310, L500.2500, L501.4021, L300.3900, L100.0100 ####[facility] [address] [place], [address] Platelet countOrdered By: Sanya Gerard on 10-22-2024 Platelets (Bld) [#/Vol] 188 10*3/uL 150-450 [facility] Potassium measurement (mass/ volume)Ordered By: Jeremy Gerard on 10-22-2024 Potassium (Unsp spec) [Mass/Vol] 3.4 mmol/L 3.3-5.1 [facility] Prothrombin Time w/INRon INR Coag (PPP) [Relative time] 1.1 {INR} Normal [facility] Comment on above: Performed By: #### L 300.4310, L500.2500, L501.4021, L300.3900, L100.0100 ####[facility] [address] [place], [address] PT Coag (PPP) [Time] 14.3 s Normal 11.7-14.9 [facility] Comment on above: Performed By: #### L 300.4310, L500.2500, L501.4021, L300.3900, L100.0100 ####[facility] [address] [place], [address] Prothrombin timeOrdered By: Jeremy Gerard on 10-22-2024 PT Coag (PPP) [Time] 14.3 s 11.7-14.9 [facility] RBC Auto (Bld) [#/Vol]Ordere d By: Jeremy Gerard on 10-22-2024 RBC (Bld) [#/Vol] 3.77 10*6/uL Low 4.2-5.4 [facility] STROKE Brain/Head without Co nton 10-22-2024 STROKE Brain/Head without Cont [facility] Imaging Services [address] [place], [place] [id number] STROKE Brain/Head without Cont MR#: [id number] Acct: [id number] Name: CODY SANTANA Rep #: [id number] : 1985 F 38 From: Gerardo brewster MD PCP: Care Physician,No Primary Status: REG ER Study: STROKE Brain/Head without Cont Date of Exam: 0 10/22/24 Exam# [id number] Ordering Dr: Jeremy Gerard DO PROCEDURE: STROKE BRAIN/HEAD WITHOUT CONT 10/22/2024 REASON FOR EXAM: NEURO DEFICIT, ACUTE, STROKE SUSPECTED TECHNIQUE: Head CT without intravenous contrast. Coronal and Sagittal reconstruction series were provided. One or more dose reduction techniques were used (e.g., Automated exposure control, adjustment of the mA and/or kV according to patient size, use of iterative reconstruction technique. COMPARISON: MRI brain 08/30/2023 FINDINGS: * ACUTE: No acute infarct or hemorrhage. No mass effect or herniation. * BRAIN PARENCHYMA: Signal intensities are within normal limits for age. * VENTRICLES/EXTRA-AXIAL SPACES: No hydrocephalus or extra-axial fluid collections. * EXTRACRANIAL STRUCTURES: Visualized osseous structures are normal. Soft tissues are normal. CT/STROKE Brain/Head without Cont IMPRESSION: No acute intracranial abnormality. Reading Location: [facility] CC: Dr. Jeremy Gerard DO; No Primary Care Physician Wood Preparation Supervisor: Signed Normal [facility] STROKE CTA Head AND Neck W/C onon 10-22-2024 STROKE CTA Head AND Neck W/Con [facility] Imaging Services [address] [place], [place] [id number] STROKE CTA Head AND Neck W/Con MR#: [id number] Acct: [id number] Name: CODY SANTANA Rep #: [id number] : 1985 F 38 From: Gerardo brewster MD PCP: Care Physician,No Primary Status: REG ER Study: STROKE CTA Head AND Neck W/Con Date of Exam: 0 10/22/24 Exam# [id number] Ordering Dr: Jeremy Gerard DO PROCEDURE: STROKE CTA HEAD AND NECK W/CON 10/22/2024 REASON FOR EXAM: NEURO DEFICIT, ACUTE, STROKE SUSPECTED TECHNIQUE: CTA imaging of the head and neck from the aortic arch to the skull vertex with out contrast and with intravenous contrast. Multiplanar and multisequence images were obtained. CONTRAST: Omnipaque 350 VOLUME: 100 mL Not Provided Gauge IV One or more dose reduction techniques were used (e.g., Automated exposure control, adjustment of the mA and/or kV according to patient size, use of iterative reconstruction technique). COMPARISON: None FINDINGS: Aortic Arch: Normal size and branching pattern. No significant atherosclerotic plaque. Brachiocephalic and Subclavians: Unremarkable RIGHT Carotid: Right CCA: Unremarkable. Right ICA: Unremarkable. Maximum stenosis (NASCET): 0 % Right ECA: Unremarkable. LEFT Carotid: Left CCA: Unremarkable. Left ICA: Unremarkable. Maximum stenosis (NASCET): 0 % Left ECA: Unremarkable. Vertebrals: Codominant. Arise from the subclavians. Both vertebrals form the basilar. RIGHT Vertebral: Unremarkable. LEFT Vertebral: Unremarkable. Anatomy: [place] anatomy is normal. Aneurysm or avm: No intracranial aneurysms or large vascular malformations are identified. Anterior cerebral arteries: Unremarkable: Middle cerebral arteries: Unremarkable. Basilar artery: Unremarkable. Posterior cerebral arteries: Unremarkable. Other major branches of the posterior circulation: Unremarkable. Major venous structures: Unremarkable. Other findings: Neck: No focal soft tissue abnormality. Lungs: Imaged lung bermudez are clear. Bones: Status post C5-C7 ACDF. CT/STROKE CTA Head AND Neck W/Con IMPRESSION: Patent anterior and posterior intracranial and extracranial circulation, without hemodynamically significant stenosis. Reading Location: [facility] CC: Dr. Jeremy Gerard, DO; No Primary Care Physician Wood Preparation Supervisor: Signed Normal [facility] Serum creatinine measurement (mass/volume)Ordered By: Jeremy Gerard on 10-22-2024 Creatinine [Mass/Vol] 0.97 mg/dL 0.70-1.20 [facility] Serum glucose measurement (m ass/volume)Ordered By: Jeremy Gerard on 10-22-2024 Glucose [Mass/Vol] 79 mg/dL 70-99 [facility] Serum or plasma calcium mykel urement (mass/volume)Ordered By: Jeremy Gerard on 10-22-2024 Calcium [Mass/Vol] 9.3 mg/dL 7.6-11.0 [facility] Serum or plasma urea nitroge n measurement (mass/volume)Ordered By: Jeremy Gerard on 10-22-2024 Urea nitrogen [Mass/Vol] 12 mg/dL 4-19 [facility] Sodium levelOrdered By: Jeremy Gerard on 10-22-2024 Sodium [Moles/Vol] 139 mmol/L 133-145 [facility] Troponin T.cardiac [Mass/vol ume] in Serum or Plasma by High sensitivity methodOrdered By: Jeremy Gerard on 10-22-2024 Troponin T.cardiac High sensitivity method [Mass/Vol] < 6 ng/L <14 [facility] Troponin T.cardiac High sensitivity method [Mass/Vol] 7 ng/L <14 [facility] White blood cell (WBC) count Ordered By: Jeremy Gerard on 10-22-2024 WBC (Bld) [#/Vol] 6.4 10*3/uL 4.4-11.0 [facility] CNPNon 10-15-2024 [facility] Telephone (NHATWN) CODY SANTANA ([id number]) 1985 F Date Time Provider Department 10/15/24 KIRBY MONGE During your visit today, we recorded the following information about you: Unruly Gonzalez RN 10/16/2024 8:24 AM Addendum Cody Santana (Johnson: [id number]) PA Need Help? Call us at Outcome Approved on October 15 by [employer] [employer] 2016 Your PA request for [id number] was approved for 180 days. The PA# assigned is [id number]. NURTEC ODT 75 MG TABLET Effective Date: 10/27/2024 Authorization Expiration Date: 04/24/2025 Drug Nurtec 75MG dispersible tablets Form [place] Medicaid [employer] Electronic PA Form (2016 NCPDP) Allergies As of Date: 10/15/2024 Noted Allergy Reaction KEFLEX (CEPHALEXIN) 09/14/2023 14 - Other: See Comments Comments: deb Esquivel PERCOCET (OXYCODONE-ACETAMINOPHE N)09/14/2023 14 - Other: See Comments Comments: Nose itch Date Reviewed: 08/28/2024 Reviewed by: Kirstin Redd MA - Fully Assessed Reason for Visit: Medication Authorization [1699] Prescriptions as of 10/16/2024 - AIMOVIG AUTOINJECTOR 70 mg/mL auto-injector INJECT 1 ML SUBCUTANEOUSLY ONCE EVERY MONTH - lidocaine (LIDODERM) 5 % Apply 1 Patch as directed every 24 hours. - HYDROcodone-acetaminoph en (NORCO) 5-325 mg per tablet Take 1 tablet by mouth every 8 hours as needed for pain. - methocarbamol (ROBAXIN) 500 mg tablet Take 500 mg by mouth four times daily. - amoxicillin (AMOXIL) 500 mg capsule Take 500 mg by mouth three times a day. - enoxaparin (LOVENOX) 100 mg/mL syrg Inject 0.9 mL subcutaneously every 12 hours. - rimegepant (NURTEC ODT) 75 mg disintegrating tablet Take 1 tablet by mouth once daily as needed (Migraine). - albuterol HFA (PROVENTIL HFA, VENTOLIN HFA) 90 mcg/actuation inhaler Inhale 2 Puffs as instructed every 6 hours as needed for wheezing/shortness of breath. - medroxyPROGESTERone (DEPO-PROVERA) 150 mg/mL injection Inject 150 mg intramuscularly every 12 weeks. - ELIQUIS 5 mg tab(s) Take 1 tablet by mouth every 12 hours. - cetirizine (ZYRTEC) 10 mg tablet Take 10 mg by mouth once daily. - cholecalciferol (VITAMIN D3) 1,000 unit tab tablet Take 2 tablets by mouth every afternoon. - citalopram (CELEXA) 40 mg tablet Take 1 tablet by mouth every afternoon. - famotidine (PEPCID) 40 mg tablet TAKE 1 TABLET BY MOUTH TWICE DAILY WITH SUPPER AND AT BEDTIME - lamoTRIgine (LAMICTAL) 200 mg tablet TAKE 1 TABLET BY MOUTH ONCE DAILY IN THE MORNING - montelukast (SINGULAIR) 10 mg tablet Take 1 tablet by mouth every afternoon. - nystatin (MYCOSTATIN) powder APPLY POWDER TOPICALLY TWICE TO THREE TIMES DAILY TO GROIN AREA DIRECTED - topiramate (TOPAMAX) 200 mg tablet Take 200 mg by mouth two times a day. - haloperidol (HALDOL) 5 mg tablet Take 5 mg by mouth as needed (for anxiety). Problem List As Of Date: 10/15/2024 (None) Encounter Status:Closed by UNRULY GONZALEZ on 10/15/24 Normal [facility] Re-Evaluation - PT (1)on Re-Evaluation - PT (1) [facility] Physical Therapy [facility] [address] [place] [address] [address] [place] [address] / REEVALUATION / MEDICARE RECERTIFICATION PHYSICAL THERAPY MR#: [id number] Acct: [id number] Name: CODY SANTANA Rep #: [id number] : 1985 38 From: Lucy Irene PT, Cert. MDT Referring Dr.: ALONZO Infante Status:REG RCR Insurance: [facility], [facility] Re-Evaluation Intro: ALONZO Infante, It has been my pleasure to treat CODY SANTANA over the last 11 visits for LUMBAR STRAIN. Please see the progress note below for an update on the physical therapy plan of care! Subjective Subjective: PATIENT REPORTS THERAPY HAS HELPED A LOT AND HER LOW BACK IS DOING A LOT BETTER. LBP IS RANGING 0-3/10 NOW. PATIENT REPORTS SHE USES HER HANDS SO MUCH AT WORK. 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 STATES SHE WAS ON PREDNISONE FOR 10 DAYS AND IT FEELS A LOT BETTER NOW - IT DOESN'T BOTHER ME NOW BUT THEY WANTED ME TO FOLLOW ME UP WITH THERAPY. PATIENT REPORTS SHE PLANS TO FOLLOW UP WITH PHYSICIAN FOR HER BACK NOW THAT SHE HAS COMPLETED ORDERED PT SESSIONS. Objective Objective/Function: PATIENT WAS SEEN TODAY FOR RE-ASSESSMENT OF PROGRESS TOWARD THE SET PT GOALS AND THE NEED FOR FURTHER PHYSICAL THERAPY VS READINESS FOR DISCHARGE. THIS PATIENT HAS MADE GREAT PROGRESS WITH AQUATIC THERAPY AND HEP INSTRUCTION UPON EXAM TODAY: Dural Testing: NEGATIVE LETHA LE'S. Lumbar mvmt loss: flex - NIL ext - MIN R SG - MIN L SG - NIL PATIENT C/O L LBP WITH R SG TESTING BUT NW A RESULT. Core strength: GOOD TUG TEST: 8.01 30 STS TEST: 13 WITHOUT UE ASSIST. Plan Plan Plan: CONSIDER D/C TO HEP AND INDEP WATER EX IF NO FURTHER PT ORDERED AFTER PHYSICIAN RE-CHECK. Balance/Gait/Functional tests Balance/Special Test Scores Oswestry Low Back Score: 11 Goals Goals Goal 1:: DECREASE C/O BACK AND LE SX'S BY AT LEAST 75% TO EASE ADL AND WORK FUNCTION Goal Time Frame: 4-6 Weeks Goal Progress: Goal Met Goal 2:: IMPROVE PERSONAL CARE, LIFTING, SITTING, STANDING, SOCIAL LIFE, TRAVEL AND EMPLOYMENT/HOMEMAKING FUNCTION WITH AT LEAST 10 POINT IMPROVEMENT IN BACK OSWESTRY SCORE. Goal Time Frame: 4-6 Weeks Goal Progress: Goal Met Goal 3:: PATIENT WILL COMPLETE 8 STANDS IN 30 SECS WITHOUT UE ASSIST TO DEMONSTRATE IMPROVED FUNCTIONAL STRENGTH Goal Time Frame: 4-6 Weeks Goal Progress: Goal Met Goal 4:: PATIENT WILL COMPLETE TUG IN < 10 SECS INDEP'LY WITHOUT AD TO DEMONSTRATE IMPROVED GAIT FUNCTION. Goal Time Frame: 4-6 Weeks Goal Progress: Goal Met Goal 5:: PATIENT WILL HAVE MIN LUMBAR MVMT LOSS ALL PLANES WITHOUT C/O PAIN TO EASE WORK AND ADL FUNCTION. Goal Time Frame: 4-6 Weeks Goal Progress: Progressing Goal 6:: PATIENT WILL BE INDEP WITH A HEP FOR CONTINUED IMPROVEMENT ONCE FORMAL PHYSICAL THERAPY CONCLUDES. Goal Time Frame: 4-6 Weeks Goal Progress: Progressing Anticipated Interventions Anticipated Interventions Patient/Client Instruction: Educate patient on: Condition, Plan of Care and Risk Factors For the Purpose of:: To improve self management Therapeutic Exercise to Include: Strength training, Body mechanics, Postural training, Flexibilty training, Neuromotor development, In an aquatic setting and Dynamic Lumbar Stabilization For the Purpose of:: To decrease pain, To increase ROM, To improve nutrient delivery to tissue, To improve muscle performance and motor function, To increase tolerance to activity/condition/posi tion, To improve ability of physical actions for home/community/work/lei sure, To improve gait and locomotor functions, To decrease soft tissue restriction, To increase flexibility/ROM and To improve self management Re-Evaluation Ending Re-evaluation ending: Please do not hesitate to contact me at [phone] by phone or if you have questions or concerns regarding this new plan of care! Sincerely, Lucy Irene, PT, Cert MDT 10/14/241952 CC: ALONZO Infante; No Primary Care Physician SABINE Signed For Medicare only, by signing this I certify the plan of care. Physicians Signature Date Normal [facility] Emergency Department Summary on 09-22-2024 Emergency Department Summary [facility] Medical Records Department [address] [place] [address] Emergency Department Summary 09/22/24 MR#: [id number] Acct: [id number] Name: CODY SANTANA Rep #: [id number] : 1985 38 From: Shilo Dunne DO PCP: Care Physician,No Primary Status:DEP ER Location: ED HPI History of Present Illness Chief Complaint: Upper Extremity Injury Narrative Narrative: Chief complaint and HPI: Right wrist pain. 38-year-old female with past medical history of factor V [place] on Eliquis, history of carpal tunnel presents for evaluation of right wrist pain. Onset of wrist pain has been several days. Patient denies any injury or trauma. Has been taking Tylenol with little relief. Pain is worse with movement. Occasionally gets sharp pain that shoots into the hand and down the fingers. Not necessarily in the median distribution. Had carpal tunnel release on the wrist years ago. States it feels similar but slightly different. Denies any fever, chills, numbness. Review of systems: See HPI Medications: As listed on the chart Allergies: As listed on the chart PFSH: Per chart Vital signs: As listed on the chart. Reviewed. Physical exam: Gen: A O x3, NAD Head: Normocephalic, atraumatic Eyes: No sclera icterus, conjunctiva clear CV: Regular rate Resp: Nonlabored respiration Musc: Full ROM of the right upper extremity including the wrist/hand/fingers, patient does have tenderness with movement of the wrist, patient has a positive Tinel's/Phalen's test, radial/ulnar pulses +2 bilaterally, no deformity, normal capillary refill, compartments soft, strength plus 5 out of 5 bilaterally in the upper extremities Skin: Warm, dry Neuro: Alert, oriented, grossly intact, sensation intact Psych: Cooperative, appropriate mood and affect [facility] Medical History Lumbar pain with radiation down right leg Dental caries Brain TIA Dysarthria Chronic migraine Anxiety and depression History of venous thromboembolism Obesity Tobacco use History of nephrolithiasis Chronic neck and back pain Factor 5 Leiden mutation, heterozygous Home Medications ???Medication ???Instructions ???Recorded ???Last Taken ???Type medroxyprogesterone 150 mg/mL 150 mg IM .[id number] control 01/30/15 Unknown History intramuscular syringe topiramate 25 mg tablet 200 mg PO BID 01/30/15 Unknown His tory citalopram 40 mg tablet 40 mg PO DAILY mental health 04/04 Unknown History haloperidol 5 mg tablet 2.5 mg PO TID PRN Anxiety 04/04/19 Unknown History apixaban 5 mg tablet 5 mg PO BID blood thinner 06/03/20 Unknown History cholecalciferol (vitamin D3) 50 2,000 unit PO DAILY vitamin Unknown History mcg (2,000 unit) capsule acetaminophen 325 mg capsule 325 mg PO ONCE PRN Pain 1-10 Or Unknown History (Tylenol) Fever lidocaine 5 % topical patch 1 patch topical DAILY pain #6 ea 1 06/13/20 Unknown Rx (Lidoderm) albuterol sulfate 90 mcg/actuation 2 puff inhalation Q6H PRN Unknown History aerosol inhaler CONGESTION/ALLERGIES cetirizine 10 mg tablet 10 mg PO .DAILY AM allergies 03/15 Unknown History famotidine 40 mg tablet 40 mg PO Q12H reflux 03/15/23 Unkn own History lamotrigine 200 mg tablet 200 mg PO DAILY seizures 03/15/23 Unknown History montelukast 10 mg tablet 10 mg PO QHS allergies 03/15/23 Un known History triamcinolone acetonide 55 mcg 2 spray intranasal DAILY 03/15/23 Unknown History nasal spray aerosol rimegepant 75 mg disintegrating 75 mg PO DAILY PRN MIGRAINE Unknown History tablet (Nurtec ODT) erenumab-aooe 70 mg/mL mg subcut 10/31/23 Unknown History subcutaneous auto-injector (Aimovig Autoinjector) methocarbamol 500 mg tablet 250 - 500 mg PO BID PRN PRN muscle 08/17/24 Unknown History spasm methylprednisolone 4 mg tablets in See Rx Instructions PO PER PKG D IR 09/07/24 Unknown Rx a dose pack (Medrol (Julio Cesar)) #21 tabs Allergy/AdvReac Type Severity Reaction Status Date / Time acetaminophen (From Provo) Allergy Itching Verified 09/07/24 11:33 hydrocodone (From [place]) Allergy Itching Verified 09/07/24 11:33 oxycodone (From Percocet) AdvReac Intermediate Itching Verified 09/07/24 11:33 cephalexin monohydrate (From AdvReac WEAKNESS, Verified 09/07/24 11:33 Keflex) MUSCLE ACHES Family History Mother Heart disease CVA (cerebral vascular accident) Diabetes Father No problems noted. Surgical History S/P cervical spinal fusion History of toe surgery History of carpal tunnel release Social History household members: other details (more content not included)... Normal [facility] Wrist min 3 Viewson 09-23-19 25 Wrist min 3 Views [facility] Imaging Services [address] [place] [address] Wrist min 3 Views MR#: [id number] Acct: [id number] Name: CODY SANTANA Rep #: [id number] : 1985 F 38 From: Jacob Bee PCP: Care Physician,No Primary Status: REG ER Study: Wrist min 3 Views Date of Exam: 09/22/24 Exam# [id number] Ordering Dr: Shilo Dunne DO EXAM: Right wrist radiographs CLINICAL HISTORY: Pain COMPARISON: None TECHNIQUE: Three views of the right wrist FINDINGS: See impression RAD/Wrist min 3 Views IMPRESSION: Negative for acute displaced fracture or dislocation. No significant arthropathy. Reading Location: [facility] CC: Dr. Shilo Dunne DO; No Primary Care Physician Wood Preparation Supervisor: Signed Normal [facility] Inital Evaluation (1) - PTon 09-11-2024 Inital Evaluation (1) - PT [facility] Physical Therapy [facility] [address] [place] [address] [address] [place] [address] / REHABILITATION SERVICES INITIAL EVALUATION MR#: [id number] Acct: [id number] Name: CODY SANTANA Rep #: [id number] : 1985 38 From: Lucy Irene PT, Cert. MDT Referring Dr.: ALONZO Infante Status: REG RCR Insurance: [facility] FORMERLY [facility], [facility] Patient's Visit Information Visit Information Visit Information: CODY SANTANA is a 38 year old F referred to Physical Therapy by ALONZO Infante with a diagnosis of LUMBAR STRAIN. Date of Evaluation: 09/09/24 Physical Therapist: Lucy Irene PT, Cert MDT Visit Plan Frequency: 3x /Week Duration: 4-6 Weeks Plan: CURRENTLY NOT OFF WORK BUT IS ON A 10 LB LIFTING LIMIT, NO BENDING, NO STOOPING AND IS ALLOWED TO SIT DOWN NEEDED UNTIL AT LEAST 09/23/24. AQUATIC THERAPY FOR PAIN RELIEF, POSTURE CORRECTION/STRENGTHENIN G, INSTRUCTION IN APPROPRIATE BODY MECHANICS AND ACTIVITY MODIFICATIONS. DLS STARTING WITH A NEUTRAL SPINE PROGRESSING ROM TOLERATED. LETHA LE ROM, STRETCHING AND STRENGTHENING. HEP INSTRUCTION. 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 CURRENTLY NOT OFF WORK BUT IS ON A 10 LB LIFTING LIMIT, NO BENDING, NO STOOPING AND IS ALLOWED TO SIT DOWN NEEDED UNTIL AT LEAST 09/23/24. Disability: NO Present symptoms: LETHA LOW BACK, LETHA BUTTOCK AND LETHA POST THIGH PAIN APPROX 2/[address] LETHA LE INTERMITTENT WEAKNESS AND GIVING OUT. PATIENT DENIES LETHA LE NUMBNESS OR TINGLING. Present since: 08/16/24 Pain Scale: WORST 7/10, LEAST 3/10 Currently: 10 Is it getting better, worse or staying the same: STAYING THE SAME Commenced as a result of: PATIENT REPORTS: LIFTING A MACHINE IN A SQUATTED POSITION AND FELT SENSATION OF MUSCLES IN HER LOWER BACK RIPPING. EVENTUALLY GOT MACHINE INTO ROOM AND CLEANED FLOOR. PATIENT LATER TOOK A MUSCLE RELAXER THAT WAS PRESCRIBED TO HER BY PAIN MGMT. PATIENT CONTINUED TO WORK ABOUT 7.5 MORE HOURS AND STATES IT WAS A ROUGH NIGHT BUT SHE MADE IT THROUGH. SHE REPORTS SHE WENT HOME AND GOT ON ICE AND THE NEXT DAY SHE HAD HER DAUGHTER DRIVE HER TO THE HOSPITAL. Worse: ANYTHING WITH BENDING OVER, RISING FROM SITTING, STANDING IN ONE SPOT, WALKING FOR LONG PERIODS OF TIME, CONSTANTLY SQUATTING DOWN, ANYTHING WITH TWISTING AND TURNING, GETTING THINGS DONE AT HOME VS WORK, LEANING OVER. Better: SITTING DOWN HELPS BUT IT DEPENDS ON SITTING SURFACE, ICE, MUSCLE RELAXER, lidocaine patches. CHIROPRACTIC. Disturbed sleep: YES - COMING HOME FROM WORK HIPS ARE IRRITATED AND SIDE SLEEPER AND CAN'T GET COMFORTABLE. Previous history/Previous treatment: HISTORY OF LOW BACK PAIN STARTING 11 YEARS AGO WITH PREGANCY OF YOUNGEST CHILD - SPRAINED BACK WHILE . WAS MOVING A TOOL BOX OUT OF [employer] AND KID HELPING HER DROPPED THE OTHER END AND ALSO HAD BACK LABOR. PAIN EVENTUALLY WENT AWAY AND CAME BACK TWO YEARS LATER AND KEPT COMING BACK. DX'D WITH 4 BULGING DISCS AND SCIATICA AND REFERRED TO PAIN MGMT AND HAS BEEN IN PAIN MGMT EVER SINCE. MULTIPLE BETH'S AND OTHER PAIN MGMT PROCEEDURES BUT NO LUMBAR SPINE SURGERY. LAST LUMBAR PAIN MGMT PROCEEDURE WAS ABOUT 10 MONTHS AGO. HAS ALSO HAD 4 TO 5 YEARS WORTH OF PHYSICAL THERAPY FOR LOW BACK WITH LAST TIME BEING ABOUT 4 YEARS AGO. HAS ALSO HAD LOW BACK CHIROPRACTIC WITH LAST TIME BEING ABOUT 18 MONTHS AGO WITH BENEFIT LASTING ABOUT A WEEK. Treatment this episode: MEDICINE Coughing/sneezing/strai ebony: POSITIVE FOR INCREASED PAIN. Gait: NO AD'S OR FALLS SINCE THIS INJURY. PATIENT REPORTS HER FEET ARE DRAGGING ON THE FLOOR NOW SINCE THIS INJURY AND SHE IS WALKING MUCH SLOWER. Bowel or Bladder Dysfunction: PATIENT DENIES. Accidents: NO Unexplained weight loss: NO Imaging: NONE SINCE THIS INJURY PER PATIENT REPORT. PMH/Recent major surgery: Lupus Anticoag. Brain TIA Dysarthria Chronic migraine Anxiety and depression History of venous thromboembolism Obesity Tobacco use History of nephrolithiasis Chronic neck and back pain Factor 5 Leiden mutation, heterozygous S/P cervical spinal fusion 2022 History of toe surgery History of carpal tunnel release Objective Objective: Sitting/Standing Posture: SLOUCHED IN SITTING. NORMAL LORDOSIS. NO RELEVANT LATERAL LUMBAR SHIFT. Active Correction of posture: ABLE TO PARTIALLY CORRECT. NE ON SX'S. Other Observations: INDEP GAIT INTO PT WITH SLOW ANTALGIC GAIT PATTERN. NO LOB AND NO AD'S. Sensory deficit: LETHA LE LIGHT TOUCH SENSATION GROSSLY INTACT AND SYMMETRICAL ROM deficit: LETHA HIP FLEXOR, HS AND CALF TIGHTNESS. Motor deficit: LETHA LE'S GROSSLY 5/5 WITH MMT'ING EXCEPT HIPS 4/5. Reflexes: 2+ LETHA LE'S. Dural Signs: N Lumbar mvmt loss: flex (more content not included)... Normal [facility] Urgent Care Visit Reporton 0 09-07-2024 Urgent Care Visit Report [facility] [address], [address] [place], [place] [id number] OFFICE VISIT Date of Service: 09/07/24 MR#: [id number] Acct: [id number] Name: CODY SANTANA Rep #: [id number] : 1985 Provider: ISABEL Katz Age/Sex: 38/F Location[facility] Status: Signed Intake Vital Signs 08/21/24 09:16 09/07/24 11:28 Height 5 ft 3 in 5 ft 3 in Weight: 198 lb 8 oz BMI 35.2 Respiration 16 Pulse 92 Pulse Source Monitor Temp 98.2 F Temp Source Temporal Pulse Oximetry (%) 99 Oxygen Delivery Method room air Intake Visit Reasons: LOWER BACK/2ND INJURY Chief Complaint: Lower Back Pain Is patient in pain?: Yes (Low back pain ) Pain scale (1-10): 5 Allergies acetaminophen (From Provo) Allergy (Verified 09/07/24 11:33) Itching hydrocodone (From [place]) Allergy (Verified 09/07/24 11:33) Itching oxycodone (From Percocet) Adverse Reaction (Intermediate, Verified 09/07/24 11:33) Itching cephalexin monohydrate (From Keflex) Adverse Reaction (Verified 09/07/24 11:33) WEAKNESS, MUSCLE ACHES Medications ???Medication ???Instructions ???Recorded ???Confirmed ???Type medroxyprogesterone 150 mg/mL 150 mg IM .[id number] control 01/30/15 09/07/24 History intramuscular syringe topiramate 25 mg tablet 200 mg PO BID 01/30/15 09/07/24 Hi story citalopram 40 mg tablet 40 mg PO DAILY mental health 04/0409/07/24 History haloperidol 5 mg tablet 2.5 mg PO TID PRN Anxiety 04/04/19 09/07/24 History apixaban 5 mg tablet 5 mg PO BID blood thinner 06/03/20 09/07/24 History cholecalciferol (vitamin D3) 50 2,000 unit PO DAILY vitamin 09/07/24 History mcg (2,000 unit) capsule acetaminophen 325 mg capsule 325 mg PO ONCE PRN Pain 1-10 Or 09/07/24 History (Tylenol) Fever lidocaine 5 % topical patch 1 patch topical DAILY pain #6 ea 1 06/13/20 09/07/24 Rx (Lidoderm) albuterol sulfate 90 mcg/actuation 2 puff inhalation Q6H PRN 09/07/24 History aerosol inhaler CONGESTION/ALLERGIES cetirizine 10 mg tablet 10 mg PO .DAILY AM allergies 03/1509/07/24 History famotidine 40 mg tablet 40 mg PO Q12H reflux 03/15/23 03/2 03/06 History lamotrigine 200 mg tablet 200 mg PO DAILY seizures 03/15/23 09/07/24 History montelukast 10 mg tablet 10 mg PO QHS allergies 03/15/23 History triamcinolone acetonide 55 mcg 2 spray intranasal DAILY 03/15/23 09/07/24 History nasal spray aerosol rimegepant 75 mg disintegrating 75 mg PO DAILY PRN MIGRAINE 09/07/24 History tablet (Nurtec ODT) erenumab-aooe 70 mg/mL mg subcut 10/31/23 09/07/24 Histor y subcutaneous auto-injector (Aimovig Autoinjector) methocarbamol 500 mg tablet 250 - 500 mg PO BID PRN PRN muscle 08/17/24 09/07/24 History spasm methylprednisolone 4 mg tablets in See Rx Instructions PO PER PKG D IR 09/07/24 09/07/24 Rx a dose pack (Medrol (Julio Cesar)) #21 tabs Patient : No PFSH Medical History Lumbar pain with radiation down right leg Dental caries Brain TIA Dysarthria Chronic migraine Anxiety and depression History of venous thromboembolism Obesity Tobacco use History of nephrolithiasis Chronic neck and back pain Factor 5 Leiden mutation, heterozygous Surgical History S/P cervical spinal fusion History of toe surgery History of carpal tunnel release Family History Mother Heart disease CVA (cerebral vascular accident) Diabetes Father No problems noted. Social History household members: other details: Lives in her home with her 3 children, youngest 9. Smoking Status: Current every day smoker tobacco type: cigarettes, e-cigarettes and smokeless tobacco alcohol intake: never substance use type: does not use HPI HPI Chief Complaint: Lower Back Pain Details: CODY SANTANA, is a 38 F who presents to the office today for lower back pain -yesterday was shopping and went to order picker case of water and put it on the bottom of the cart - couldn't get it on the cart and felt a sharp shooting pain- burning sensation all across her lower back -no loss of bowel or bladder -tried so far patches and muscle relaxer- also tried ice and heat -also has workman comp case for back pain- injury that occurred 3-4 wks ago- was told not to lift anything >5# - today's injury she states is not r/t to that injury but probably aggravated that injury ROS Const Constitutional: Positive for other (ROS negative x6 except what was placed in HPI) Exam Const General: cooperative and acute distress Orientation: alert and oriented x3 Resp Ef (more content not included)... Normal [facility] CNOVon 08-28-2024 CNOV Office Visit (CVAKPO ) CODY SANTANA ([id number]) 1985 F Date Time Provider Department 08/28/24 11:30 AM CHARLINE WOOTEN During your visit today, we recorded the following information about you: Weight Height 89.4 kg 1.6 m Charline Wooten APRN.PLUCK SEPARATOR 08/28/2024 12:12 PM Signed [facility] Established Visit Consultation is requested by: No referring provider defined for this encounter. PCP: To use this Smartlink, specify the provider ID whose address you want to display, e.g., .PROVADDR[1 (where 1 is the provider ID). [facility] Cody Santana is a 38 year old female presenting for follow up. Initial visit with Dr. Marques on 10/25/23. 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 As per the patient, stroke was suspected and was advised MRI brain as out patient. However, the MRI brain that was done two months later was negative for stroke. No recurrence of stroke symptoms. She was referred to the stroke clinic for further evaluation and management. Patient has not been adherent with the Eliquis Review of system: Mild snoring but no witnessed apnea. As per her sleep study came back negativeX1 miscarriage. No trauma or whiplash. She used to follow up with the chiropractic clinic and last visit was one wear ago Social history: Chronic tobacco smoker. No history of ETOH or drug abuse. She is single Reason for Visit: TIA Date of Last Event: 03/15/2023 Antiplatelets/Anticoagu lants: Enoxaparin sodium Residual Deficits: No residual deficits Current Living Situation: Home with minor children Current use of a mobility aid for walking/getting around: None Office Visit 02/28/24 -presents for hospital discharge follow up -denies any new stroke-like symptoms -history of vertigo, had some symptoms last night when she was laying down to go to bed. [place] like prior episodes. No issues getting up to walk to the bathroom. No nausea or vomiting -tired during the day -her boyfriend has later work schedule so she goes to sleep around 2AM and wakes 8:30-9AM. 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 Recommended 3 months lovenox then consideration of going to xarelto. [facility] vascular -unsure of next appt with Vascular -seeing Hematology in May, she has questions about the lupus anticoagulant -BP 110/73 -current smoker, 1.5ppd - over the summer was down to 1 cigrette per day but was under a lot of stress, DCF took her children away but she has them back now -DVT and PE in 2016 that was attributed to factor V Leiden mutation Office Visit 08/28/24 -presents for follow up -denies any new stroke-like symptoms -Hematology - last visit May 2024, recommend indefinite anticoagulation -eliquis 5mg BID -hurt her back at work the other week lifting something, has been working with workers comp -sleeping better -has smart watch sleep tracker -BP 110/72 No past medical history on file. PAST SURGICAL HISTORY Procedure Laterality Date REVISE MEDIAN N/CARPAL TUNNEL SURG Bilateral 2016 FAMILY HISTORY Problem Relation Age of Onset Stroke Mother other (CHF) Mother COPD Mother other (rheumatiod arthritis) Father Leukemia Father COPD Maternal Grandmother Pancreatic Cancer Maternal Grandfather Ovarian cancer Paternal Grandmother Social History Tobacco Use Smoking status: Every Day Current packs/day: 1.00 Average packs/day: 1 pack/day for 21.7 years (21.7 ttl pk-yrs) Types: Cigarettes Start date: 12/17/2002 Smokeless tobacco: Never Vaping Use Vaping status: Some Days Substances: Nicotine Devices: Disposable Substance Use Topics Alcohol use: Not Currently Drug use: Not Currently MEDICATIONS Current Outpatient Medications Medication Sig lidocaine (LIDODERM) 5 % Apply 1 Patch as directed every 24 hours. HYDROcodone-acetaminoph en (NORCO) 5-325 mg per tablet Take 1 tablet by mouth every 8 hours as needed for pain. methocarbamol (ROBAXIN) 500 mg tablet Take 500 mg by mouth four times daily. rimegepant (NURTEC ODT) 75 mg disintegrating tab (more content not included)... Normal [facility] Urgent Care Visit Reporton 0 08-23-2024 Urgent Care Visit Report [facility] [address] , [address] [place] [address] OFFICE VISIT Date of Service: 08/23/24 MR#: [id number] Acct: [id number] Name: CODY SANTANA Rep #: [id number] : 1985 Provider: ALONZO Infante Age/Sex: 38/F Location: [facility] Status: Signed Intake Vital Signs 08/17/24 15:56 08/21/24 09:16 08/23/24 08:59 Height 5 ft 3 in 5 ft 3 in BP 120/82 H Position Sitting Pulse 73 Temp 97.8 F Temp Source Oral Pulse Oximetry (%) 97 Oxygen Delivery Method room air Intake Visit Reasons: ED FU LOWER BACK INJURY/[facility]ARA SERVICES Accompanied by: Other Family Allergies acetaminophen (From Provo) Allergy (Verified 08/23/24 09:06) Itching hydrocodone (From [place]) Allergy (Verified 08/23/24 09:06) Itching oxycodone (From Percocet) Adverse Reaction (Intermediate, Verified 08/23/24 09:06) Itching cephalexin monohydrate (From Keflex) Adverse Reaction (Verified 08/23/24 09:06) WEAKNESS, MUSCLE ACHES Medications ???Medication ???Instructions ???Recorded ???Confirmed ???Type medroxyprogesterone 150 mg/mL 150 mg IM .[id number] control 01/30/15 08/23/24 History intramuscular syringe topiramate 25 mg tablet 200 mg PO BID 01/30/15 08/23/24 Hi story citalopram 40 mg tablet 40 mg PO DAILY mental health 04/0408/23/24 History haloperidol 5 mg tablet 2.5 mg PO TID PRN Anxiety 04/04/19 08/23/24 History apixaban 5 mg tablet 5 mg PO BID blood thinner 06/03/20 08/23/24 History cholecalciferol (vitamin D3) 50 2,000 unit PO DAILY vitamin 08/23/24 History mcg (2,000 unit) capsule acetaminophen 325 mg capsule 325 mg PO ONCE PRN Pain 1-10 Or 08/23/24 History (Tylenol) Fever lidocaine 5 % topical patch 1 patch topical DAILY pain #6 ea 1 06/13/20 08/23/24 Rx (Lidoderm) albuterol sulfate 90 mcg/actuation 2 puff inhalation Q6H PRN 08/23/24 History aerosol inhaler CONGESTION/ALLERGIES cetirizine 10 mg tablet 10 mg PO .DAILY AM allergies 03/1508/23/24 History famotidine 40 mg tablet 40 mg PO Q12H reflux 03/15/2308/10 History lamotrigine 200 mg tablet 200 mg PO DAILY seizures 03/15/23 08/23/24 History montelukast 10 mg tablet 10 mg PO QHS allergies 03/15/23 History triamcinolone acetonide 55 mcg 2 spray intranasal DAILY 03/15/23 08/23/24 History nasal spray aerosol rimegepant 75 mg disintegrating 75 mg PO DAILY PRN MIGRAINE 08/23/24 History tablet (Nurtec ODT) erenumab-aooe 70 mg/mL mg subcut 10/31/23 08/23/24 Histor y subcutaneous auto-injector (Aimovig Autoinjector) hydrocodone-acetaminoph en 5-325mg 1 tab PO Q6H PRN pain 3 days #12 08/17/24 08/23/24 Rx 5mg-325mg tabs methocarbamol 500 mg tablet 250 - 500 mg PO BID PRN PRN muscle 08/17/24 08/23/24 History spasm Nurse's Note: Patient here for a [facility] ER f/u. Patient states its her lower back and left hip. [facility] Medical History Lumbar pain with radiation down right leg Dental caries Brain TIA Dysarthria Chronic migraine Anxiety and depression History of venous thromboembolism Obesity Tobacco use History of nephrolithiasis Chronic neck and back pain Factor 5 Leiden mutation, heterozygous Surgical History S/P cervical spinal fusion History of toe surgery History of carpal tunnel release Family History Mother Heart disease CVA (cerebral vascular accident) Diabetes Father No problems noted. Social History household members: other details: Lives in her home with her 3 children, youngest 9. Smoking Status: Current every day smoker tobacco type: cigarettes, e-cigarettes and smokeless tobacco alcohol intake: never substance use type: does not use HPI HPI Details: CODY SANTANA, is a 38 F who presents to the office today for follow-up of a work-related injury which occurred on 08/16/2024. 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 She states that she bent over to try to order picker the front of the piece of equipment and felt immediate pain in her back. The next day she went to the ER to be evaluated and was given Provo as well as lidocaine patches. Patient denies numbness, tingling or loss range of motion. She does state that she has some lumbar pain radiating into her left leg however states having a history of multiple lumbar disc bulges. She is currently enrolled in pain management for this. She denies loss of bowel or bladder control. No pelvic or abdominal pain. No other associated symptoms or alleviating/aggravating factors. ROS Const (more content not included)... Normal [facility] Emergency Department Summary on 08-17-2024 Emergency Department Summary [facility] Medical Records Department [address] [place] [address] Emergency Department Summary 08/17/24 MR#: [id number] Acct: [id number] Name: CODY SANTANA Rep #: [id number] : 1985 38 From: Axel Kaur MD PCP: VINOD. ISABEL Fortune Status:DEP ER Location: ED HPI History of Present Illness Chief Complaint: Back Narrative Narrative: 38-year-old female was at work yesterday and was using a large T2 hardwood floor layer. There was a lip in the floor and it would not pass over it so she leaned over and tried to lift it up and felt immediate pain in her low back. It is focused on the right side. She states it flared up her sciatica and she is getting occasional pains down the back of the thigh. She has no weakness or numbness or tingling. She has chronic back issues and tried her Voltaren gel and then a Lidoderm patch without much help. She states ice is the only thing that helps. She did not try any [id number] medications. She cannot take NSAIDs because she is on Eliquis for history of factor V Leiden and blood clots. She has no history of back surgery. She has no saddle anesthesia or bladder bowel incontinence. [facility] Medical History Lumbar pain with radiation down right leg Dental caries Brain TIA Dysarthria Chronic migraine Anxiety and depression History of venous thromboembolism Obesity Tobacco use History of nephrolithiasis Chronic neck and back pain Factor 5 Leiden mutation, heterozygous Home Medications ???Medication ???Instructions ???Recorded ???Last Taken ???Type medroxyprogesterone 150 mg/mL 150 mg IM .[id number] control 01/30/15 Unknown History intramuscular syringe topiramate 25 mg tablet 200 mg PO BID 01/30/15 Unknown His tory citalopram 40 mg tablet 40 mg PO DAILY mental health 04/04 Unknown History haloperidol 5 mg tablet 2.5 mg PO TID PRN Anxiety 04/04/19 Unknown History apixaban 5 mg tablet 5 mg PO BID blood thinner 06/03/20 Unknown History cholecalciferol (vitamin D3) 50 2,000 unit PO DAILY vitamin Unknown History mcg (2,000 unit) capsule acetaminophen 325 mg capsule 325 mg PO ONCE PRN Pain 1-10 Or Unknown History (Tylenol) Fever lidocaine 5 % topical patch 1 patch topical DAILY pain #6 ea 1 06/13/20 Unknown Rx (Lidoderm) albuterol sulfate 90 mcg/actuation 2 puff inhalation Q6H PRN Unknown History aerosol inhaler CONGESTION/ALLERGIES cetirizine 10 mg tablet 10 mg PO .DAILY AM allergies 03/15 Unknown History famotidine 40 mg tablet 40 mg PO Q12H reflux 03/15/23 Unkn own History lamotrigine 200 mg tablet 200 mg PO DAILY seizures 03/15/23 Unknown History montelukast 10 mg tablet 10 mg PO QHS allergies 03/15/23 Un known History triamcinolone acetonide 55 mcg 2 spray intranasal DAILY 03/15/23 Unknown History nasal spray aerosol rimegepant 75 mg disintegrating 75 mg PO DAILY PRN MIGRAINE [facility] erenumab-aooe 70 mg/mL mg subcut 10/31/23 Unknown History subcutaneous auto-injector (Aimovig Autoinjector) hydrocodone-acetaminoph en 5-325mg 1 tab PO Q6H PRN pain 3 days #12 08/17/24 Unknown Rx 5mg-325mg tabs methocarbamol 500 mg tablet 250 - 500 mg PO BID PRN PRN muscle 08/17/24 Unknown History spasm Allergy/AdvReac Type Severity Reaction Status Date / Time acetaminophen (From [place]) Allergy Itching Verified 08/17/24 15:56 hydrocodone (From [place]) Allergy Itching Verified 08/17/24 15:56 oxycodone (From Percocet) AdvReac Intermediate Itching Verified 08/17/24 15:56 cephalexin monohydrate (From AdvReac WEAKNESS, Verified 08/17/24 15:56 Keflex) MUSCLE ACHES Family History Mother Heart disease CVA (cerebral vascular accident) Diabetes Father No problems noted. Surgical History S/P cervical spinal fusion History of toe surgery History of carpal tunnel release Social History household members: other details: Lives in her home with her 3 children, youngest 9. Smoking Status: Current every day smoker tobacco type: cigarettes, e-cigarettes and smokeless tobacco alcohol intake: never substance use type: does not use ROS ROS ED ROS Narrative Constitutional: Negative for fever, chills, malaise. Neuro: Negative for motor/sensory dysfunction. Musc: Negative for joint pain, swelling, trauma. EXAM Physical Exam Narrative Exam Narrative: CONST: Patient sitting in no acute distress. EYES: Normal inspection. NECK: Normal inspection. RESP: No respiratory distress, CTAB. CVS: Regular rate and rhythm, no murmur, no gallop. (more content not included)... [facility] Office Visit (UCWSTR ) CODY SANTANA ([id number]) 1985 F Date Time Provider Department 07/29/24 7:15 PM JEOVANY JOSEPH [facility] During your visit today, we recorded the following information about you: Temperature Pulse Respiration Blood pressure 98.5 degrees 90/minute 16/minute 110/72 Weight 92 kg Jeovany Joseph PA-C 07/29/2024 8:03 PM Signed This note was created using Audiodraft. Subjective Cody Santana is a 38 year old female. Patient is a 38-year-old female who complains of pain to her right hand and wrist secondary to an injury she sustained while shoveling snow yesterday. Patient reports that she twisted her right hand and wrist awkwardly and has now developed pain to the anterior and ulnar right wrist with radiation to her right hand. Patient does have a history of carpal tunnel syndrome and denies history of fracture or surgery to her right hand and wrist. Patient denies direct blow injury. Patient reports no paresthesia or paralysis to right fingers and states that her bit gatherer is intact. Patient reports no pain or injury to right shoulder and elbow. Patient is right-hand dominant. Patient is taking only Tylenol for pain. Review of Systems Musculoskeletal: Right Wrist Pain All other systems reviewed and are negative. Objective BP 110/72 Pulse 90 Temp 36.9 ?C (98.5 ?F) (Tympanic) Resp 16 Wt 92 kg (202 lb 12.8 oz) LMP (LMP Unknown) SpO2 99% BMI 35.92 kg/m? Physical Exam Vitals and nursing note reviewed. Constitutional: Appearance: Normal appearance. She is normal weight. HENT: Head: Normocephalic and atraumatic. Nose: Nose normal. Mouth/Throat: Mouth: Mucous membranes are moist. Pharynx: Oropharynx is clear. Eyes: Extraocular Movements: Extraocular movements intact. Conjunctiva/sclera: Conjunctivae normal. Pupils: Pupils are equal, round, and reactive to light. Cardiovascular: Rate and Rhythm: Normal rate. Pulses: Normal pulses. Pulmonary: Effort: Pulmonary effort is normal. Breath sounds: Normal breath sounds. Musculoskeletal: General: Tenderness present. No swelling, deformity or signs of injury. Normal range of motion. Cervical back: Normal range of motion and neck supple. Comments: Unremarkable exam of the right hand and wrist. There is no degree of soft tissue edema noted to the right hand and wrist. No crepitus or deformity is noted to the right hand and wrist. Overlying skin is clear without erythema or ecchymosis. MSP to the right fingers is fully intact and the patient demonstrates strong and equal bit gatherer. Patient demonstrates reduced range of motion in flexion is to the right wrist secondary to pain. Patient demonstrates full extension of the right wrist. Skin: General: Skin is warm and dry. Capillary Refill: Capillary refill takes less than 2 seconds. Findings: No bruising or erythema. Neurological: General: No focal deficit present. Mental Status: She is alert and oriented to person, place, and time. Sensory: No sensory deficit. Motor: No weakness. Coordination: Coordination normal. Psychiatric: Mood and Affect: Mood normal. Behavior: Behavior normal. Thought Content: Thought content normal. Judgment: Judgment normal. Assessment and Plan Physical exam findings as noted above. X-ray right wrist is negative for acute findings as reported by the radiologist. Radiologist does identify a well-defined bone density posterior to the lunate which appears chronic. This would be consistent with the patient's history of recurrent right wrist pain likely due to carpal tunnel syndrome. A Velcro wrist splint was placed to the patient's right hand and wrist myself with MSP intact pre- and post-placement. Ibuprofen and supportive care instructions were discussed and the patient verbalizes good understanding of same. CLINICAL IMPRESSION: Sprain/Strain Right Wrist ASSESSMENT/PLAN: 1. Right wrist pain - ICD9: 719.43, ICD10: M25.531 - XR WRIST GENERAL 3V PA/LAT/OBL RIGHT Jeovany THERON Joseph Allergies As of Date: 07/29/2024 Noted Allergy Reaction KEFLEX (CEPHALEXIN) 09/14/2023 14 - Other: See Comments Comments: Achy, weak PERCOCET (OXYCODONE-ACETAMINOPHE N)09/14/2023 14 - Other: See Comments Comments: Nose itch Date Reviewed: 07/29/2024 Reviewed by: Zelda Cunha LPN - Fully Assessed Reason for Visit: right hand and wrist pain [Other] Cmt: Injured it yesterday shoveling snow Primary Visit Diagnosis:Right wrist pain [M25.531] Order(s):XR WRIST GENERAL 3V PA/LAT/OBL RIGHT [[id number]] Order #: [id number] #:[id number] Prescriptions as of 07/29/2024 - amoxicillin (AMOXIL) 500 mg capsule Take 500 mg by mouth three times a day. - enoxaparin (LOVENOX) 100 mg/mL syrg Inject 0.9 mL subcutaneously every 12 hours. - rimegepant (NURTEC ODT) 75 mg disintegrating tablet Take 1 tablet by mouth (more content not included)... Normal [facility] XR WRIST 3V PA/LAT/OBL RTon 07-29-2024 XR WRIST 3V PA/LAT/OBL RT * * *Final Report* * * DATE OF EXAM: Jul 29 2024 7:30PM WOX [id number] - XR WRIST 3V PA/LAT/OBL RT / PROCEDURE REASON: Right wrist pain * * * * Physician Interpretation * * * * Right wrist HISTORY: 38 years old Clinical information: Right wrist pain shoveling snow yesterday and now 5th finger in numb with pain in base of thumb and ulnar side TECHNIQUE: Images: XR WRIST 3V PA/LAT/OBL RT Comparison: None. RESULT: Findings: Is well-defined ossification posterior to the lunate 4 x 6 x 2 mm in diameter. Osseous structures otherwise intact. Joint spaces maintained. IMPRESSION: Well-defined bony density posterior to the lunate appears chronic. No findings suspicious for acute fracture. Wood Preparation Supervisor: [facility] Transcribe Date/Time: Jul 29 2024 7:54P Dictated by : JEOVANY ORTEGA MD This examination was interpreted and the report reviewed and electronically signed by: JEOVANY ORTEGA MD on Jul 29 2024 7:56PM EST [id number] Normal [facility] XR Wrist - right PA and Late ral and Obliqueon 07-29-2024 IMPRESSION: Well-defined bony density posterior to the lunate appears chronic. No findings suspicious for acute fracture. Wood Preparation Supervisor: [facility] Transcribe Date/Time: Jul 29 2024 7:54P Dictated by : JEOVANY ORTEGA MD This examination was interpreted and the report reviewed and electronically signed by: JEOVANY ORTEGA MD on Jul 29 2024 7:56PM EST DIVISION OF RADIOLOGY * * *Final Report* * * DATE OF EXAM: Jul 29 2024 7:30PM WOX 5271 - XR WRIST 3V PA/LAT/OBL RT / PROCEDURE REASON: Right wrist pain * * * * Physician Interpretation * * * * Right wrist HISTORY: 38 years old Clinical information: Right wrist pain shoveling snow yesterday and now 5th finger in numb with pain in base of thumb and ulnar side TECHNIQUE: Images: XR WRIST 3V PA/LAT/OBL RT Comparison: None. RESULT: Findings: Is well-defined ossification posterior to the lunate 4 x 6 x 2 mm in diameter. Osseous structures otherwise intact. Joint spaces maintained. DIVISION OF RADIOLOGY Provider, Gini Arredondo - 07/29/2024 * * *Final Report* * * DATE OF EXAM: Jul 29 2024 7:30PM WOX 5271 - XR WRIST 3V PA/LAT/OBL RT / PROCEDURE REASON: Right wrist pain * * * * Physician Interpretation * * * * Right wrist HISTORY: 38 years old Clinical information: Right wrist pain shoveling snow yesterday and now 5th finger in numb with pain in base of thumb and ulnar side TECHNIQUE: Images: XR WRIST 3V PA/LAT/OBL RT Comparison: None. RESULT: Findings: Is well-defined ossification posterior to the lunate 4 x 6 x 2 mm in diameter. Osseous structures otherwise intact. Joint spaces maintained. IMPRESSION IMPRESSION: Well-defined bony density posterior to the lunate appears chronic. No findings suspicious for acute fracture. Wood Preparation Supervisor: [facility] Transcribe Date/Time: Jul 29 2024 7:54P Dictated by : JEOVANY ORTEGA MD This examination was interpreted and the report reviewed and electronically signed by: JEOVANY ORTEGA MD on Jul 29 2024 7:56PM EST [facility] Radiology Study observation (narrative) [facility] XR Wrist - right PA and Late ral and ObliqueOrdered By: Cc Provider on 07-29-2024 [facility] CNOVon 07-18-2024 [facility] Office Visit (UCWSTR ) CODY SANTANA ([id number]) 1985 F Date Time Provider Department 07/18/24 2:00 PM NELI REDD [facility] During your visit today, we recorded the following information about you: Temperature Pulse Respiration Blood pressure 99 degrees 92/minute 22/minute 106/70 Weight 92 kg Neli Redd APRN.KOLE 07/18/2024 2:34 PM Signed This note was created using NoteWriter. Subjective Cody Santana is a 38 year old female. 38 year old female with PMH depression, anxiety, acid reflux and bipolar presents for illness Acute onset last night +cough +sore throat Dry cough Chest wall pain with coughing I was told I probably have COPD Has been using inhaler Denies dyspnea Denies hemoptysis Denies CP Denies abdominal pain +tobacco usage +ill contacts, +influenza at home Daughter here for similar The history is provided by the patient. No foreign language teacher was used. Cough This is a new problem. The current episode started yesterday. The problem occurs constantly. The problem has been gradually worsening. The cough is Non-productive. There has been no fever. Associated symptoms include rhinorrhea, sore throat, myalgias and wheezing. Pertinent negatives include no chest pain, no chills, no sweats, no weight loss, no ear congestion, no ear pain, no headaches, no shortness of breath and no eye redness. Treatments tried: albuterol inhaler. The treatment provided no relief. She is a smoker. Her past medical history does not include bronchitis, pneumonia, bronchiectasis, COPD, emphysema or asthma. No past medical history on file. PAST SURGICAL HISTORY Procedure Laterality Date REVISE MEDIAN N/CARPAL TUNNEL SURG Bilateral 2016 ALLERGIES Keflex [Cephalexin] and Percocet [Oxycodone-Acetaminophe n] MEDICATIONS rimegepant (NURTEC ODT) 75 mg disintegrating tablet Take 1 tablet by mouth once daily as needed (Migraine). albuterol HFA (PROVENTIL HFA, VENTOLIN HFA) 90 mcg/actuation inhaler Inhale 2 Puffs as instructed every 6 hours as needed for wheezing/shortness of breath. medroxyPROGESTERone (DEPO-PROVERA) 150 mg/mL injection Inject 150 mg intramuscularly every 12 weeks. erenumab-aooe (AIMOVIG AUTOINJECTOR) 70 mg/mL auto-injector Inject 1 mL subcutaneously once every month. ELIQUIS 5 mg tab(s) Take 1 tablet by mouth every 12 hours. cetirizine (ZYRTEC) 10 mg tablet Take 10 mg by mouth once daily. cholecalciferol (VITAMIN D3) 1,000 unit tab tablet [...] montelukast (SINGULAIR) 10 mg tablet Take 1 tablet by mouth every afternoon. nystatin (MYCOSTATIN) powder APPLY POWDER TOPICALLY TWICE TO THREE TIMES DAILY TO GROIN AREA DIRECTED topiramate (TOPAMAX) 200 mg tablet Take 200 mg by mouth two times a day. haloperidol (HALDOL) 5 mg tablet Take 5 mg by mouth as needed (for anxiety). amoxicillin (AMOXIL) 500 mg capsule Take 500 mg by mouth three times a day. (Patient not taking: Reported on 07/18/2024) enoxaparin (LOVENOX) 100 mg/mL syrg Inject 0.9 mL subcutaneously every 12 hours. (Patient not taking: Reported on 06/26/2024) FAMILY HISTORY Problem Relation Age of Onset Stroke Mother other (CHF) Mother COPD Mother other (rheumatiod arthritis) Father Leukemia Father COPD Maternal Grandmother Pancreatic Cancer Maternal Grandfather Ovarian cancer Paternal Grandmother Social History Tobacco Use Smoking status: Every Day Current packs/day: 1.00 Average packs/day: 1 pack/day for 21.6 years (21.6 ttl pk-yrs) Types: Cigarettes Start date: 12/17/2002 Smokeless tobacco: Never Vaping Use Vaping status: Some Days Substances: Nicotine Devices: Disposable Substance Use Topics Alcohol use: Not Currently Drug use: Not Currently Review of Systems Constitutional: Positive for fatigue. Negative for chills, fever and weight loss. HENT: Positive for congestion, rhinorrhea and sore throat. Negative for ear pain. Eyes: Negative for discharge, redness and itching. Respiratory: Positive for cough, chest tightness and wheezing. Negative for apnea and shortness of breath. Cardiovascular: Negative for chest pain, palpitations and leg swelling. Gastrointestinal: Negative for abdominal pain, diarrhea, nausea and vomiting. Musculoskeletal: Positive for myalgias. Neurological: Negative for headaches. Hematological: Positive for adenopathy. Does not bruise/bleed easily. Psychiatric/Behavioral: Negative for agitation and behavioral problems. Objective BP 106/70 Pulse 92 Temp 37.2 ?C (99 ?F) Resp 22 Wt 92 kg (202 lb 13.2 oz) LMP (LMP Unknown) SpO2 100% BMI (more content not included)... [facility] Tele[facility] (UCWSTR) CODY SANTANA ([id number]) 1985 F Date Time Provider Department 07/18/24 NELI RDED [facility] During your visit today, we recorded the following information about you: Neli Redd APRN.PLUCK SEPARATOR 07/18/2024 3:04 PM Signed CXR negative Strep negative Please advise patient Inderjit Ontiveros MA 07/18/2024 4:16 PM Signed Patient notified. Inderjit Ontiveros MA Allergies As of Date: 07/18/2024 Noted Allergy Reaction KEFLEX (CEPHALEXIN) 09/14/2023 14 - Other: See Comments Comments: deb Esquivel PERCOCET (OXYCODONE-ACETAMINOPHE N)09/14/2023 14 - Other: See Comments Comments: Nose itch Date Reviewed: 07/18/2024 Reviewed by: Gabrielle Courtney LPN - Fully Assessed Reason for Visit: Results [95] Prescriptions as of 07/18/2024 - amoxicillin (AMOXIL) 500 mg capsule Take 500 mg by mouth three times a day. - enoxaparin (LOVENOX) 100 mg/mL syrg Inject 0.9 mL subcutaneously every 12 hours. - rimegepant (NURTEC ODT) 75 mg disintegrating tablet Take 1 tablet by mouth once daily as needed (Migraine). - albuterol HFA (PROVENTIL HFA, VENTOLIN HFA) 90 mcg/actuation inhaler Inhale 2 Puffs as instructed every 6 hours as needed for wheezing/shortness of breath. - medroxyPROGESTERone (DEPO-PROVERA) 150 mg/mL injection Inject 150 mg intramuscularly every 12 weeks. - erenumab-aooe (AIMOVIG AUTOINJECTOR) 70 mg/mL auto-injector Inject 1 mL subcutaneously once every month. - ELIQUIS 5 mg tab(s) Take 1 tablet by mouth every 12 hours. - cetirizine (ZYRTEC) 10 mg tablet Take 10 mg by mouth once daily. - cholecalciferol (VITAMIN D3) 1,000 unit tab tablet Take 2 tablets by mouth every afternoon. - citalopram (CELEXA) 40 mg tablet Take 1 tablet by mouth every afternoon. - famotidine (PEPCID) 40 mg tablet TAKE 1 TABLET BY MOUTH TWICE DAILY WITH SUPPER AND AT BEDTIME - lamoTRIgine (LAMICTAL) 200 mg tablet TAKE 1 TABLET BY MOUTH ONCE DAILY IN THE MORNING - montelukast (SINGULAIR) 10 mg tablet Take 1 tablet by mouth every afternoon. - nystatin (MYCOSTATIN) powder APPLY POWDER TOPICALLY TWICE TO THREE TIMES DAILY TO GROIN AREA DIRECTED - topiramate (TOPAMAX) 200 mg tablet Take 200 mg by mouth two times a day. - haloperidol (HALDOL) 5 mg tablet Take 5 mg by mouth as needed (for anxiety). Problem List As Of Date: 07/18/2024 (None) Encounter Status:Closed by INDERJIT ONTIVEROS on 07/18/24 Normal [facility] STREP A MOLECULAR (POC)on Procedural Control Valid [facility] Strep A (POCT) Negative Negative [facility] XR CHEST 2V FRONTAL/LATon XR CHEST 2V FRONTAL/LAT * * *Final Report* * * DATE OF EXAM: Jul 18 2024 2:35PM WOX 5291 - XR CHEST 2V FRONTAL/LAT / PROCEDURE REASON: multiple diagnoses * * * * Physician Interpretation * * * * EXAMINATION: CHEST RADIOGRAPH (2 VIEW FRONTAL and LATERAL) CLINICAL HISTORY: URI, acute Acute cough MQ: XC2_6 EXAM DATE/TIME: 07/18/2024 2:35 PM COMPARISON: 03/28/2024 RESULT: Lines, tubes, and devices: None. Lungs and pleura: No consolidation. No lung mass. No pleural effusion. No pneumothorax. Cardiomediastinal silhouette: Normal cardiomediastinal silhouette. Bones and soft tissues: Cervical orthopedic hardware is seen. IMPRESSION: No acute radiographic abnormality. Wood Preparation Supervisor: LUD[facility]INA Transcribe Date/Time: Jul 18 2024 3:00P Dictated by : LUCERO MITCHELL MD This examination was interpreted and the report reviewed and electronically signed by: LUCERO MITCHELL MD on Jul 18 2024 3:01PM EST [id number] Normal [facility] XR Chest PA and Lateralon IMPRESSION: No acute radiographic abnormality. Wood Preparation Supervisor: [facility] Transcribe Date/Time: Jul 18 2024 3:00P Dictated by : LUCERO MITCHELL MD This examination was interpreted and the report reviewed and electronically signed by: LUCERO MITCHELL MD on Jul 18 2024 3:01PM EST DIVISION OF RADIOLOGY * * *Final Report* * * DATE OF EXAM: Jul 18 2024 2:35PM WOX 5291 - XR CHEST 2V FRONTAL/LAT / PROCEDURE REASON: multiple diagnoses * * * * Physician Interpretation * * * * EXAMINATION: CHEST RADIOGRAPH (2 VIEW FRONTAL & LATERAL) CLINICAL HISTORY: URI, acute Acute cough MQ: XC2_6 EXAM DATE/TIME: 07/18/2024 2:35 PM COMPARISON: 03/28/2024 RESULT: Lines, tubes, and devices: None. Lungs and pleura: No consolidation. No lung mass. No pleural effusion. No pneumothorax. Cardiomediastinal silhouette: Normal cardiomediastinal silhouette. Bones and soft tissues: Cervical orthopedic hardware is seen. DIVISION OF RADIOLOGY Provider, [facility] - 07/18/2024 * * *Final Report* * * DATE OF EXAM: Jul 18 2024 2:35PM WOX 5291 - XR CHEST 2V FRONTAL/LAT / PROCEDURE REASON: multiple diagnoses * * * * Physician Interpretation * * * * EXAMINATION: CHEST RADIOGRAPH (2 VIEW FRONTAL & LATERAL) CLINICAL HISTORY: URI, acute Acute cough MQ: XC2_6 EXAM DATE/TIME: 07/18/2024 2:35 PM COMPARISON: 03/28/2024 RESULT: Lines, tubes, and devices: None. Lungs and pleura: No consolidation. No lung mass. No pleural effusion. No pneumothorax. Cardiomediastinal silhouette: Normal cardiomediastinal silhouette. Bones and soft tissues: Cervical orthopedic hardware is seen. IMPRESSION IMPRESSION: No acute radiographic abnormality. Wood Preparation Supervisor: LUD[facility]INA Transcribe Date/Time: Jul 18 2024 3:00P Dictated by : LUCERO MITCHELL MD This examination was interpreted and the report reviewed and electronically signed by: LUCERO MITCHELL MD on Jul 18 2024 3:01PM EST [facility] Radiology Study observation (narrative) [facility] XR Chest PA and LateralOrder ed By: Ccf Provider on 07-18-2024 [facility] CNPNon 07-14-2024 [facility] Telephone (HEMAWS) CODY SANTANA ([id number]) 1985 F Date Time Provider Department 07/14/24 PATY ARCINIEGA During your visit today, we recorded the following information about you: Paty Arciniega DO 07/14/2024 2:24 PM Signed Can let her know the retesting for lupus anticoagulant could not be performed due to apixaban still being in her bloodstream. Not sure how that can be if she held it for a week. Nonetheless the anticardiolipin and antibeta 2 glycoprotein antibodies were negative so apixaban is a good anticoagulant medication for her. She should continue indefinitely. OV in about a year. Please fax a copy of this note along with her recent lab testing to her primary care's office. DO Ole Batista Pamela S, LPN 07/15/2024 8:58 AM Addendum Spoke with pt. Informed anticardiolipin and antibeta 2 glycoprotein antibodies were negative so apixaban is a good anticoagulant medication for her. She should continue indefinitely. OV in about a year, our PSS would reach ut to her to get that appt. scheduled. Pt. Voiced understanding. Information faxed as directed. SUSY Sen Pss, Victor Manuel 07/15/2024 9:07 AM Signed Schedules have not been entered for 2025. Will postpone note to contact patient and enter recall letter. Patient informed. Allergies As of Date: 07/14/2024 Noted Allergy Reaction KEFLEX (CEPHALEXIN) 09/14/2023 14 - Other: See Comments Comments: Zulmay, weak PERCOCET (OXYCODONE-ACETAMINOPHE N)09/14/2023 14 - Other: See Comments Comments: Nose itch Date Reviewed: 06/26/2024 Reviewed by: Crystal Walker MA - Fully Assessed Reason for Visit: Results [95] Prescriptions as of 07/15/2024 - amoxicillin (AMOXIL) 500 mg capsule Take 500 mg by mouth three times a day. - enoxaparin (LOVENOX) 100 mg/mL syrg Inject 0.9 mL subcutaneously every 12 hours. - rimegepant (NURTEC ODT) 75 mg disintegrating tablet Take 1 tablet by mouth once daily as needed (Migraine). - albuterol HFA (PROVENTIL HFA, VENTOLIN HFA) 90 mcg/actuation inhaler Inhale 2 Puffs as instructed every 6 hours as needed for wheezing/shortness of breath. - medroxyPROGESTERone (DEPO-PROVERA) 150 mg/mL injection Inject 150 mg intramuscularly every 12 weeks. - erenumab-aooe (AIMOVIG AUTOINJECTOR) 70 mg/mL auto-injector Inject 1 mL subcutaneously once every month. - ELIQUIS 5 mg tab(s) Take 1 tablet by mouth every 12 hours. - cetirizine (ZYRTEC) 10 mg tablet Take 10 mg by mouth once daily. - cholecalciferol (VITAMIN D3) 1,000 unit tab tablet Take 2 tablets by mouth every afternoon. - citalopram (CELEXA) 40 mg tablet Take 1 tablet by mouth every afternoon. - famotidine (PEPCID) 40 mg tablet TAKE 1 TABLET BY MOUTH TWICE DAILY WITH SUPPER AND AT BEDTIME - lamoTRIgine (LAMICTAL) 200 mg tablet TAKE 1 TABLET BY MOUTH ONCE DAILY IN THE MORNING - montelukast (SINGULAIR) 10 mg tablet Take 1 tablet by mouth every afternoon. - nystatin (MYCOSTATIN) powder APPLY POWDER TOPICALLY TWICE TO THREE TIMES DAILY TO GROIN AREA DIRECTED - topiramate (TOPAMAX) 200 mg tablet Take 200 mg by mouth two times a day. - haloperidol (HALDOL) 5 mg tablet Take 5 mg by mouth as needed (for anxiety). Problem List As Of Date: 07/14/2024 (None) Encounter Status:Closed by VICTOR MANUEL HORN on 07/15/24 [facility] 06-27-2024 [facility] Telephone (UCWSTR) CODY SANTANA ([id number]) 1985 F Date Time Provider Department 06/27/24 LES MCKEON [facility] During your visit today, we recorded the following information about you: Les Mckeon APRN.PLUCK SEPARATOR 06/27/2024 7:25 AM Signed Please inform patient that she did test positive for COVID-19. Follow return to work guidelines as provided during yesterday's visit. Continue supportive therapies. Follow-up with ED or PCP for any new or worsening symptoms. Les Mckeon APRN.Inderjit Sanz MA 06/27/2024 8:43 AM Signed Left VM instructing patient to return call to receive results. SARTHAK Dockery Brittany L, MA 06/27/2024 8:58 AM Signed Patient active MyChart. Patient notified via eFolder message. Cody Riley MA Allergies As of Date: 06/27/2024 Noted Allergy Reaction KEFLEX (CEPHALEXIN) 09/14/2023 14 - Other: See Comments Comments: deb Esquivel PERCOCET (OXYCODONE-ACETAMINOPHE N)09/14/2023 14 - Other: See Comments Comments: Nose itch Date Reviewed: 06/26/2024 Reviewed by: Crystal Walker MA - Fully Assessed Reason for Visit: Results [95] Prescriptions as of 06/27/2024 - amoxicillin (AMOXIL) 500 mg capsule Take 500 mg by mouth three times a day. - enoxaparin (LOVENOX) 100 mg/mL syrg Inject 0.9 mL subcutaneously every 12 hours. - rimegepant (NURTEC ODT) 75 mg disintegrating tablet Take 1 tablet by mouth once daily as needed (Migraine). - albuterol HFA (PROVENTIL HFA, VENTOLIN HFA) 90 mcg/actuation inhaler Inhale 2 Puffs as instructed every 6 hours as needed for wheezing/shortness of breath. - medroxyPROGESTERone (DEPO-PROVERA) 150 mg/mL injection Inject 150 mg intramuscularly every 12 weeks. - erenumab-aooe (AIMOVIG AUTOINJECTOR) 70 mg/mL auto-injector Inject 1 mL subcutaneously once every month. - ELIQUIS 5 mg tab(s) Take 1 tablet by mouth every 12 hours. - cetirizine (ZYRTEC) 10 mg tablet Take 10 mg by mouth once daily. - cholecalciferol (VITAMIN D3) 1,000 unit tab tablet Take 2 tablets by mouth every afternoon. - citalopram (CELEXA) 40 mg tablet Take 1 tablet by mouth every afternoon. - famotidine (PEPCID) 40 mg tablet TAKE 1 TABLET BY MOUTH TWICE DAILY WITH SUPPER AND AT BEDTIME - lamoTRIgine (LAMICTAL) 200 mg tablet TAKE 1 TABLET BY MOUTH ONCE DAILY IN THE MORNING - montelukast (SINGULAIR) 10 mg tablet Take 1 tablet by mouth every afternoon. - nystatin (MYCOSTATIN) powder APPLY POWDER TOPICALLY TWICE TO THREE TIMES DAILY TO GROIN AREA DIRECTED - topiramate (TOPAMAX) 200 mg tablet Take 200 mg by mouth two times a day. - haloperidol (HALDOL) 5 mg tablet Take 5 mg by mouth as needed (for anxiety). Problem List As Of Date: 06/27/2024 (None) Encounter Status:Closed by CODY RILEY on 06/27/24 [facility] 06-26-2024 [facility] Office Visit (UCWSTR ) CODY SANTANA ([id number]) 1985 F Date Time Provider Department 06/26/24 4:15 PM [facility] During your visit today, we recorded the following information about you: Temperature Pulse Respiration Blood pressure 99.1 degrees 88/minute 21/minute 100/70 Weight 94.7 kg Jeovany Joseph PA-C 06/26/2024 4:33 PM Signed This note was created using Audiodraft. Subjective Cody Santana is a 38 year old female. Patient is a 38-year-old female who arrives with a request for COVID-19 testing. Patient states that she recently developed generalized fatigue and cough. Patient states that she did take a home COVID-19 test and the result was positive. Patient reports that multiple coworkers where she works recently tested positive for COVID-19. Patient states that her employer is requiring her to obtain a COVID-19 test at a medical care facility in order to authorize her sick leave of absence. Patient reports no fever or chills but does describe mild bodyaches. Patient denies congestion, sinus pressure, ear pain or sore throat. Fatigue Associated symptoms include coughing and fatigue. Review of Systems Constitutional: Positive for fatigue and malaise/fatigue. Respiratory: Positive for cough. All other systems reviewed and are negative. Objective BP 100/70 Pulse 88 Temp 37.3 ?C (99.1 ?F) Resp 21 Wt 94.7 kg (208 lb 12.4 oz) LMP (LMP Unknown) SpO2 98% BMI 36.98 kg/m? Physical Exam Vitals and nursing note reviewed. Constitutional: Appearance: Normal appearance. She is normal weight. HENT: Head: Normocephalic and atraumatic. Right Ear: External ear normal. Left Ear: External ear normal. Nose: Nose normal. Mouth/Throat: Mouth: Mucous membranes are moist. Pharynx: Oropharynx is clear. Eyes: Extraocular Movements: Extraocular movements intact. Conjunctiva/sclera: Conjunctivae normal. Pupils: Pupils are equal, round, and reactive to light. Cardiovascular: Rate and Rhythm: Normal rate and regular rhythm. Pulses: Normal pulses. Heart sounds: Normal heart sounds. Pulmonary: Effort: Pulmonary effort is normal. Breath sounds: Normal breath sounds. Musculoskeletal: Cervical back: Normal range of motion and neck supple. Skin: General: Skin is warm and dry. Capillary Refill: Capillary refill takes less than 2 seconds. Neurological: General: No focal deficit present. Mental Status: She is alert and oriented to person, place, and time. Psychiatric: Mood and Affect: Mood normal. Behavior: Behavior normal. Thought Content: Thought content normal. Judgment: Judgment normal. Assessment and Plan Physical exam findings as noted above. Influenza A/B/SARS-CoV-2/RSV PCR was ordered and the patient was advised that the results will be received tomorrow. Patient was provided with appropriate documentation of her Covid-19 virus infection and placed off work through 30 June 2024. CLINICAL IMPRESSION: Covid-19 Virus Infection ASSESSMENT/PLAN: 1. COVID-19 virus infection - ICD9: 079.89, ICD10: U07.1 - COVID AND INFLUENZA A/B AND RSV PCR, ROUTINE Jeovany Joseph PA-C Allergies As of Date: 06/26/2024 Noted Allergy Reaction KEFLEX (CEPHALEXIN) 09/14/2023 14 - Other: See Comments Comments: Achy, weak PERCOCET (OXYCODONE-ACETAMINOPHE N)09/14/2023 14 - Other: See Comments Comments: Nose itch Date Reviewed: 06/26/2024 Reviewed by: Crystal Walker MA - Fully Assessed Reason for Visit: Fatigue [46] Cmt: Sneezing, [place], sore throat x x 6 days Primary Visit Diagnosis:COVID-19 virus infection [U07.1] Order(s):COVID AND INFLUENZA A/B AND RSV PCR, ROUTINE [SQCVFLRS] Order #: [id number]. #:[id number] Prescriptions as of 06/26/2024 - amoxicillin (AMOXIL) 500 mg capsule Take 500 mg by mouth three times a day. - enoxaparin (LOVENOX) 100 mg/mL syrg Inject 0.9 mL subcutaneously every 12 hours. - rimegepant (NURTEC ODT) 75 mg disintegrating tablet Take 1 tablet by mouth once daily as needed (Migraine). - albuterol HFA (PROVENTIL HFA, VENTOLIN HFA) 90 mcg/actuation inhaler Inhale 2 Puffs as instructed every 6 hours as needed for wheezing/shortness of breath. - medroxyPROGESTERone (DEPO-PROVERA) 150 mg/mL injection Inject 150 mg intramuscularly every 12 weeks. - erenumab-aooe (AIMOVIG AUTOINJECTOR) 70 mg/mL auto-injector Inject 1 mL subcutaneously once every month. - ELIQUIS 5 mg tab(s) Take 1 tablet by mouth every 12 hours. - cetirizine (ZYRTEC) 10 mg tablet Take 10 mg by mouth once daily. - cholecalciferol (VITAMIN D3) 1,000 unit tab tablet Take 2 tablets by mouth every afternoon. - citalopram (CELEXA) 40 mg tablet Take 1 tablet by mouth every afternoon. - famotidine (PEPCID) 40 mg tablet TAKE 1 TABLET BY MOUTH TWICE DAILY WITH SUPPER AND AT BEDTIME - lamoTRIgine (LAMICTAL) 200 mg tablet TAKE 1 TABLET BY MOUTH ONCE (more content not included)... Normal [facility] COVID AND INFLUENZA A/B AND RSV PCR, ROUTINEon 06-26-2024 SARS-CoV-2 (COVID-19) RNA LA+probe Ql (Unsp spec) SARS-COV-2 (AGENT OF COVID-19) RNA: Detected INFLUENZA A RNA: Not detected INFLUENZA B RNA: Not detected RESPIRATORY SYNCYTIAL VIRUS (RSV) RNA: Not detected Abnormal [facility] Comment on above: Performed By: #### C VFLRS ####[facility] LABCLIA [id number] [facility] [id number] [place] [address] [place] BETA 2 GLYCOPROTEIN, IGGon 0 06-21-2024 Beta 2 glycoprotein 1 IgG IA Qn <9 Normal <20 [facility] Comment on above: Order Comment: Speci men Type: BLOOD SPECIMENOrdering Facility: [facility] Address: [address] [place] [address] Result Comment: <20 SGU Negative 20-80 SGU Low Positive >80 SGU High Positive These results were obtained with the Inova QUANTA Lite B2 GPI IgG ANIKA. B2 GPI IgG values obtained with different manufacturers' assay methods may not be used interchangeably. The magnitude of the reported IgG levels cannot be correlated to an endpoint titer. Performed By: #### B ETA2G BETA2MMONY CARDIM, 5076-5 ####[facility] LABCLIA [id number] [place] [address] [place] BETA 2 GLYCOPROTEIN, IGMon 0 06-21-2024 Beta 2 glycoprotein 1 IgM IA Qn <9 Normal <20 [facility] Comment on above: Order Comment: Speci men Type: BLOOD SPECIMENOrdering Facility: [facility] Address: [address] [place] [address] Result Comment: <20 SMU Negative 20-80 SMU Low Positive >80 SMU High positive These results were obtained with the Inova QUANTA Lite B2 GPI IgM ANIKA. B2 GPI IgM values obtained with different manufacturers' assay methods may not be used interchangeably. The magnitude of the reported IgM levels cannot be correlated to an endpoint titer. Performed By: #### B ETAElisabet BETAMONY Batista CARDIM, 5076-5 ####[facility] LABIA [id number] [place] [address] [place] CARDIOLIPIN IGG ABSon 2024 Cardiolipin IgG IA Qn (S) <9.0 Normal <15.0 [facility] Comment on above: Order Comment: Speci men Type: BLOOD SPECIMENOrdering Facility: [facility] Address: [address] [place] [address] Result Comment: <15 GPL Negative 15-20 GPL Indeterminate >20 GPL Positive The following results were obtained with the Inova QUANTA Lite DESTINY IgG III ANIKA. Cardiolipin IgG values obtained with the different manufacturers' assay methods may not be used interchangeably. The magnitude of the reported IgG levels cannot be correlated to an endpoint titer. Performed By: #### B ETA2G BETA2SAMMIE KapoorG, CARDIM, 5076-5 ####[facility] LABCLIA [id number] [address] [place] CARDIOLIPIN IGM ABSon 2024 Cardiolipin IgM IA Qn (S) 10.8 MPL Normal <12.5 [facility] Comment on above: Order Comment: Speci men Type: BLOOD SPECIMENOrdering Facility: [facility] Address: [address] [place] [address] Result Comment: <12. 5 MPL Negative 12.5-20 MPL Indeterminate >20 MPL Positive The following results were obtained with the Inova QUANTA Lite DESTINY IgM III ANIKA. Cardiolipin IgM values obtained with the different manufacturers' assay methods may not be used interchangeably. The magnitude of the reported IgM levels cannot be correlated to an endpoint titer. ??? Performed By: #### B ROLAN GOVEA CARDIG, CARDI, 76-5 ####[facility] LABCLIA [id number] [address] [place] Cardiolipin IgA Ser IA-aCnco n 06-21-2024 Cardiolipin IgA IA Qn (S) <9.0 Normal <12.0 [facility] Comment on above: Order Comment: Modestoi jean Type: BLOOD SPECIMENOrdering Facility: [facility] Address: [address] [place] [address] Result Comment: <12 APL Negative 12-20 APL Indeterminate >20 APL Positive The following results were obtained with the Inova QUANTA Lite DESTINY IgA III ANIKA. Cardiolipin IgA values obtained with the different manufacturers' assay methods may not be used interchangeably. The magnitude of the reported IgA levels cannot be correlated to an endpoint titer. Performed By: #### B ROLAN GOVEA CARDIG, CARDIM, 5076-5 ####[facility] LABCLIA [id number] [place] [address] [place] LUPUS PANELon 06-21-2024 ANTI XA HZ + DOAC 0.23 High <0.10 [facility] Comment on above: Order Comment: Speci men Type: BLOOD SPECIMENOrdering Facility: [facility] Address: [address] [place] [address] Performed By: #### L [id number], LUPPL ####[facility] LABCLIA [id number] [place] [address] [place] aPTT Coag (Bld) [Time] 34.3 s Normal 24.0-35.1 [facility] Comment on above: Order Comment: Speci men Type: BLOOD SPECIMENOrdering Facility: [facility] Address: [address] [place] [address] Performed By: #### L [id number], LUPPL ####[facility] LABIA [id number] [place] [address] [place] APTT SCRN HZ + DOAC 32.9 Normal 24.0-35.1 [facility] Comment on above: Order Comment: Speci men Type: BLOOD SPECIMENOrdering Facility: [facility] Address: [address] [place] [address] Performed By: #### L [id number], LUPPL ####[facility] [id number] [place] [address] [place] Coagulation factor X activated act Coag Qn (PPP) 0.85 High <0.10 [facility] Comment on above: Order Comment: Speci men Type: BLOOD SPECIMENOrdering Facility: [facility] Address: [address] [place] [address] Result Comment: This test was developed, and its performance characteristics determined by the [facility] Department of Pathology and Laboratory Medicine. It has not been cleared or approved by the FDA. The [facility] Department of Pathology and Laboratory Medicine is regulated under CLIA as qualified to perform high-complexity testing. This test is used for clinical purposes. It should not be regarded as investigational or for research. Performed By: #### L [id number], LUPPL ####[facility] LABIA [id number] [address] [place] Thrombin time Coag (PPP) [Time] 18.5 seconds Normal <18.6 [facility] Comment on above: Order Comment: Speci men Type: BLOOD SPECIMENOrdering Facility: [facility] Address: [address] [place] [address] Performed By: #### L [id number], LUPPL ####[facility] LABCLIA [id number] [address] THROMBIN TIME HZ + DOAC 18.2 Normal <18.6 [facility] Comment on above: Order Comment: Speci men Type: BLOOD SPECIMENOrdering Facility: [facility] Address: [address] [place] [address] Performed By: #### L [id number], LUPPL ####[facility] LABCLIA [id number] [place] [address] [place] LUPUS PANEL INTERPon 025 Lupus anticoagulant (PPP) [Interp] Normal [facility] Comment on above: Order Comment: Speci men Type: BLOOD SPECIMENOrdering Facility: [facility] Address: [address] [place] [address] Result Comment: Linh hughesal - see comment below. SIGNIFICANT FINDINGS: DRUG EFFECT: Xa Inhibitor, cannot evaluate for a lupus anticoagulant Laboratory testing was performed to evaluate the presence of a lupus anticoagulant and antiphospholipid antibodies. Both the PT and APTT results are normal. The anti-Xa screen was positive with a normal thrombin time and the results do not correct with heparinase neutralization and DOAC removal. These results indicate a high level of an anti-Xa drug effect and are consistent with the medication record indicating Apixaban therapy. Lupus Anticoagulant testing cannot be performed and an inhibitor cannot be excluded. Suggest repeating the Lupus Anticoagulant testing when the patient is no longer receiving an anti-Xa drug. ANTIPHOSPHOLIPID ANTIBODY STUDIES: The IgG, IgM and IgA anticardiolipin antibody titers were all negative. Both the IgG and IgM Beta-2 Glycoprotein I antibody titers were negative. Antiphospholipid syndrome (APS) is present if at least one clinical criteria and one laboratory criteria are met. The clinical criteria for APS include the presence of vascular thrombosis or morbidity. The laboratory criteria for APS include positive testing for one of the following on two or more occasions, at least 12 weeks apart: (1) lupus anticoagulant; (2) anticardiolipin IgG or IgM in medium or high titer (>20 GPL or >20 MPL); (3) anti-beta 2 glycoprotein I IgG or IgM antibody. J. Thromb Haemost 4:295 (2006). THE FOLLOWING TESTS WERE ADDED AND ARE REPORTED SEPARATELY: APTT mixing study, Hexagonal phase phospholipid neutralization, DRVVT and PNP. Performed By: #### L [id number], LUPPL ####[facility] LABCLIA [id number] [place] [address] [place] Pathologist name Reviewed by Maye Melo MD, PhD Normal [facility] Comment on above: Order Comment: Zachariah pena Type: BLOOD SPECIMENOrdering Facility: [facility] Address: [address] [place] [address] Performed By: #### L [id number], LUPPL ####[facility] LABCLIA [id number] [place] [address] [place] PT panel Coag (PPP)on 2024 INR Coag (PPP) [Relative time] 1.0 {INR} Normal 0.9-1.3 [facility] Comment on above: Order Comment: Zachariah pena Type: BLOOD SPECIMENOrdering Facility: [facility] Address: [address] [place] [address] Result Comment: Marcia min K Antagonist (VKA) Therapeutic Range: INR 2 to 3 (Target INR of 2.5) Note: For patients treated with VKA drugs, such as warfarin, the [place] 2012 Guideline recommends a therapeutic INR range of 2 to 3 (target INR of 2.5). This recommendation includes high-risk patients with antiphospholipid syndrome with previous arterial or venous thromboembolism, current-generation mechanical or bioprosthetic aortic heart valve replacement. Note: Patients with mechanical aortic valve replacement and additional risk factors for thromboembolic events (atrial fibrillation, previous thromboembolism, LV dysfunction, hypercoagulable conditions) or an older generation mechanical AVR (i.e., ball in-Cage) or any mechanical MVR should have a INR therapeutic range of 2.5 to 3.5 (target INR of 3). Benji GH, et al. Chest 2012, 141:7S-47S Larisa RA, et al. [facility] 2017, 70: 252-289 Performed By: #### 1 4979-9, 49009-5 ####[facility] [id number] [place] [address] [place] PT Coag (PPP) [Time] 10.7 s Normal <13.1 [facility] Comment on above: Order Comment: Specdemetrius pena Type: BLOOD SPECIMENOrdering Facility: [facility] Address: [address] [place] [address] Performed By: #### 1 4979-9, 43931-9 ####[facility] [id number] [place] [address] [place] aPTT PPPon 06-21-2024 aPTT Coag (PPP) [Time] 27.9 s Normal 23.0-32.4 [facility] Comment on above: Order Comment: Zachariah pena Type: BLOOD SPECIMENOrdering Facility: [facility] Address: [address] [place] [address] Performed By: #### 1 4979-9, 26108-8 ####[facility] [id number] [place] [address] [place] Urgent Care Visit Reporton 0 06-19-2024 Urgent Care Visit Report [facility] [address], [address] [place] [address] OFFICE VISIT Date of Service: 06/19/24 MR#: [id number] Acct: [id number] Name: CODY SANTANA Rep #: [id number] : 1985 Provider: ALONZO Escoto Age/Sex: 38/F Location: [facility] Status: Signed Intake Vital Signs 03/05/24 07:48 06/19/24 11:45 Height 5 ft 3 in 5 ft 3 in Weight: 210 lb 2 oz BMI 37.2 BP 120/80 Position Sitting Pulse 85 Temp 98.3 F Temp Source Oral Pulse Oximetry (%) 98 Oxygen Delivery Method room air Intake Visit Reasons: SORE INSIDE OF LIP Accompanied by: Self Is patient in pain?: Yes Pain scale (1-10): 4 Allergies acetaminophen (From [place]) Allergy (Verified 06/19/24 11:38) Itching hydrocodone (From [place]) Allergy (Verified 06/19/24 11:38) Itching oxycodone (From Percocet) Adverse Reaction (Intermediate, Verified 06/19/24 11:38) Itching cephalexin monohydrate (From Keflex) Adverse Reaction (Verified 06/19/24 11:38) WEAKNESS, MUSCLE ACHES Medications ???Medication ???Instructions ???Recorded ???Confirmed ???Type medroxyprogesterone 150 mg/mL 150 mg IM .[id number] control 01/30/15 06/19/24 History intramuscular syringe topiramate 25 mg tablet 200 mg PO BID 01/30/15 06/19/24 History citalopram 40 mg tablet 40 mg PO DAILY mental health 04/04/19 06/19/24 History haloperidol 5 mg tablet 2.5 mg PO TID PRN Anxiety 04/04/19 06/19/24 History apixaban 5 mg tablet 5 mg PO BID blood thinner 06/03/20 06/19/24 History cholecalciferol (vitamin D3) 50 2,000 unit PO DAILY vitamin 06/03/20 06/19/24 History mcg (2,000 unit) capsule acetaminophen 325 mg capsule 325 mg PO ONCE PRN Pain 1-10 Or 08/26/20 06/19/24 History (Tylenol) Fever lidocaine 5 % topical patch 1 patch topical DAILY pain #6 ea 04/13/21 06/19/24 Rx (Lidoderm) albuterol sulfate 90 mcg/actuation 2 puff inhalation Q6H PRN 03/15/23 06/19/24 History aerosol inhaler CONGESTION/ALLERGIES cetirizine 10 mg tablet 10 mg PO .DAILY AM allergies 03/15/23 06/19/24 History famotidine 40 mg tablet 40 mg PO Q12H reflux 03/15/23 06/19/24 History lamotrigine 200 mg tablet 200 mg PO DAILY seizures 03/15/23 06/19/24 History montelukast 10 mg tablet 10 mg PO QHS allergies 03/15/23 06/19/24 History triamcinolone acetonide 55 mcg 2 spray intranasal DAILY 03/15/23 06/19/24 History nasal spray aerosol rimegepant 75 mg disintegrating 75 mg PO DAILY PRN MIGRAINE 08/30/23 06/19/24 History tablet (Nurtec ODT) cyclobenzaprine 10 mg tablet 10 mg PO TID PRN muscle spasm #20 10/17/23 06/19/24 Rx tabs erenumab-aooe 70 mg/mL mg subcut 10/31/23 06/19/24 History subcutaneous auto-injector (Aimovig Autoinjector) enoxaparin 100 mg/mL subcutaneous 90 mg (0.9 mL) subcut BID 30 days 01/10/24 06/19/24 Rx syringe (Lovenox) #54 mL amoxicillin 500 mg tablet 500 mg PO TID #30 tabs 06/19/24 06/19/24 Rx Nurse's Note: Patient has a sore of the side of her mouth that has been there for about 2 days. Patient states it crusty. [facility] Medical History Lumbar pain with radiation down right leg Dental caries Brain TIA Dysarthria Chronic migraine Anxiety and depression History of venous thromboembolism Obesity Tobacco use History of nephrolithiasis Chronic neck and back pain Factor 5 Leiden mutation, heterozygous Surgical History S/P cervical spinal fusion History of toe surgery History of carpal tunnel release Family History Mother Heart disease CVA (cerebral vascular accident) Diabetes Father No problems noted. Social History household members: other details: Lives in her home with her 3 children, youngest 9. Smoking Status: Current every day smoker tobacco type: cigarettes, e-cigarettes and smokeless tobacco alcohol intake: never substance use type: does not use HPI HPI Details: CODY SANTANA, is a 38 F who presents to the office today for initial evaluation approximately 5- day history of honey colored crusting lesion immediately lateral to right upper lip. Patient having had similar presentation several months ago and was dais noticed with impetigo then is concerned she may have the same again today. No [id number] topical or oral medications tried to assist. No complaints of fever, chills, sweats. No other associated symptoms and no other alleviating/aggravating factors. ROS Const Constitutional: Positive for other (as above) Exam Const General: cooperative, healthy appearing and no acute distress Orientation: alert and awake HENAR Head: normal to inspection Ears: external ears normal Nose (more content not included)... Normal [facility] 06-12-2024 [facility] Telephone (JOSE) CODY SANTANA ([id number]) 1985 F Date Time Provider Department 06/12/24 PATY ARCINIEGA During your visit today, we recorded the following information about you: Paty Arciniega DO 06/12/2024 1:40 PM Signed As discussed at most recent office visit, since D-dimer is normal hold apixaban and begin Lovenox injections every 12 hours beginning the morning after the last dose apixaban. Lab should be done a week after holding apixaban. Take one half dose of Lovenox the morning prior to lab testing (orders filed) then no further Lovenox. She should restart apixaban right after the lab work is drawn and continue until hears from us with results. DO Aamir Tyler Melanie, LPN 06/13/2024 10:51 AM Signed Left message for patient to contact the office. SUSY Yanes Melanie, LPN 06/13/2024 12:08 PM Signed Reviewed all instructions with patient and also sent instructions via eFolder. PSS- please schedule a lab appointment for LUPUS ANTI-COAGULANT PANEL 06/21/2024 @ 1:30 pm. Patient is aware of appointment date and time. SUSY Yanes Pss, Victor Manuel 06/13/2024 2:12 PM Signed Lab scheduled Allergies As of Date: 06/12/2024 Noted Allergy Reaction KEFLEX (CEPHALEXIN) 09/14/2023 14 - Other: See Comments Comments: Achy, weak PERCOCET (OXYCODONE-ACETAMINOPHE N)09/14/2023 14 - Other: See Comments Comments: Nose itch Date Reviewed: 05/31/2024 Reviewed by: Marcin Olguin MA - Fully Assessed Reason for Visit: Results [95] Primary Visit Diagnosis:Lupus anticoagulant disorder (HCC) [D68.62] Order(s):LUPUS ANTICOAG PL [SQLUPUSP] Order #: [id number] FUTURE enoxaparin (LOVENOX) 100 mg/mL syrgInject 0.9 mL subcutaneously every 12 hours.Disp: 14 EachRfl: 0 Prescriptions as of 06/13/2024 - enoxaparin (LOVENOX) 100 mg/mL syrg Inject 0.9 mL subcutaneously every 12 hours. - rimegepant (NURTEC ODT) 75 mg disintegrating tablet Take 1 tablet by mouth once daily as needed (Migraine). - albuterol HFA (PROVENTIL HFA, VENTOLIN HFA) 90 mcg/actuation inhaler Inhale 2 Puffs as instructed every 6 hours as needed for wheezing/shortness of breath. - medroxyPROGESTERone (DEPO-PROVERA) 150 mg/mL injection Inject 150 mg intramuscularly every 12 weeks. - erenumab-aooe (AIMOVIG AUTOINJECTOR) 70 mg/mL auto-injector Inject 1 mL subcutaneously once every month. - ELIQUIS 5 mg tab(s) Take 1 tablet by mouth every 12 hours. - cetirizine (ZYRTEC) 10 mg tablet Take 10 mg by mouth once daily. - cholecalciferol (VITAMIN D3) 1,000 unit tab tablet Take 2 tablets by mouth every afternoon. - citalopram (CELEXA) 40 mg tablet Take 1 tablet by mouth every afternoon. - famotidine (PEPCID) 40 mg tablet TAKE 1 TABLET BY MOUTH TWICE DAILY WITH SUPPER AND AT BEDTIME - lamoTRIgine (LAMICTAL) 200 mg tablet TAKE 1 TABLET BY MOUTH ONCE DAILY IN THE MORNING - montelukast (SINGULAIR) 10 mg tablet Take 1 tablet by mouth every afternoon. - nystatin (MYCOSTATIN) powder APPLY POWDER TOPICALLY TWICE TO THREE TIMES DAILY TO GROIN AREA DIRECTED - topiramate (TOPAMAX) 200 mg tablet Take 200 mg by mouth two times a day. - haloperidol (HALDOL) 5 mg tablet Take 5 mg by mouth as needed (for anxiety). Problem List As Of Date: 06/12/2024 (None) Prescriptions ordered this encounter Disp Refills Start End ENOXAPARIN 100 MG/ML SUBCUTANEOUS SY* 14 E* 0 06/12/2024 Route: SUBCUTANEOUS Sig: Inject 0.9 mL subcutaneously every 12 hours. Encounter Status:Closed by NATALIE MANCIA on 06/13/24 [facility] Visit (SP) Office (HEMAWS) CODY SANTANA ([id number]) 1985 F Date Time Provider Department 05/31/24 2:30 PM PATY ARCINIEGA During your visit today, we recorded the following information about you: Temperature Pulse Blood pressure Weight 98.8 degrees 94/minute 110/76 93.9 kg Paty Arciniega DO 05/31/2024 3:00 PM Signed Hematologic problem(s): 1) Factor V Leiden. 2) Several VTE events. HPI: Patient is a 38-year-old female with past medical history as outlined below. DVT left leg diagnosed somewhere [id number]. Anticoagulated for several months. Multiple PEs. Anticoagulated for several months. Recurrent PEs. At that point she recalls having testing done that revealed factor V Leiden. Was advised indefinite anticoagulation. This was in 2019. Has no copay for apixaban. Endorses she is consistently taking it. Three children--2008, 2010 and 2016. All full term. At age 17, may have had a miscarriage at a very young gestational age--was told too early to have tested positive for . [facility]. On Depo-Provera since about 2015. Was admitted to [facility] in August of this year for TIA. Manifested as slurred speech while she was at work. MRI showed no evidence for acute infarct or enhancing intracranial mass. Very mild chronic white matter changes which may be secondary to chronic small vessel ischemic gliosis, other vascular etiologies or sequela of nonspecific demyelination or inflammation were observed. CTA of the head and neck demonstrated no evidence of intracranial aneurysm or vascular malformation. There was no large vessel occlusion or flow-limiting stenosis. Found record of a lower extremity duplex ultrasound at [facility] from 08/07/2020 showing partial compressibility with bright intraluminal echoes in the right popliteal vein consistent with chronic DVT. Possibility of an acute component cannot be excluded at that time. PMH: Chronic migraine headaches. Chronic neck and back pain. Heterozygous factor V Leiden. History of renal lithiasis. History of VTE. Smoking. Presents for ongoing hematologic management. Interim history: No complaints today. No TIA symptoms since first seen. No unusual bleeding or unexplained bruising. ALLERGIES Allergen Reactions Keflex [Cephalexin] Other: See Comments Achy, weak Percocet [Oxycodone* Other: See Comments Nose itch Current Outpatient Medications Medication Sig rimegepant (NURTEC ODT) 75 mg disintegrating tablet Take 1 tablet by mouth once daily as needed (Migraine). albuterol HFA (PROVENTIL HFA, VENTOLIN HFA) 90 mcg/actuation inhaler Inhale 2 Puffs as instructed every 6 hours as needed for wheezing/shortness of breath. medroxyPROGESTERone (DEPO-PROVERA) 150 mg/mL injection Inject 150 mg intramuscularly every 12 weeks. erenumab-aooe (AIMOVIG AUTOINJECTOR) 70 mg/mL auto-injector Inject 1 mL subcutaneously once every month. ELIQUIS 5 mg tab(s) Take 1 tablet by mouth every 12 hours. cetirizine (ZYRTEC) 10 mg tablet Take 10 mg by mouth once daily. cholecalciferol (VITAMIN D3) 1,000 unit tab tablet [...] montelukast (SINGULAIR) 10 mg tablet Take 1 tablet by mouth every afternoon. nystatin (MYCOSTATIN) powder APPLY POWDER TOPICALLY TWICE TO THREE TIMES DAILY TO GROIN AREA DIRECTED topiramate (TOPAMAX) 200 mg tablet Take 200 mg by mouth two times a day. haloperidol (HALDOL) 5 mg tablet Take 5 mg by mouth as needed (for anxiety). No current facility-administered medications for this visit. Social History Tobacco Use Smoking status: Every Day Current packs/day: 1.00 Average packs/day: 1 pack/day for 21.5 years (21.5 ttl pk-yrs) Types: Cigarettes Start date: 12/17/2002 Smokeless tobacco: Never Vaping Use Vaping status: Some Days Substances: Nicotine Devices: Disposable Substance Use Topics Alcohol use: Not Currently Drug use: Not Currently Family History Problem Relation Age of Onset Stroke Mother other (CHF) Mother COPD Mother other (rheumatiod arthritis) Father Leukemia Father COPD Maternal Grandmother Pancreatic Cancer Maternal Grandfather Ovarian cancer Paternal Grandmother Sister--Factor V Leiden. Paternal aunt--Breast cancer. ROS: Constitutional: No fever. No drenching night sweats. Normal appetite. No unexplained weight loss. No significant fatigue. Neuro: HEENT: No recent change in voice, vision or hearing. Resp: No cough, wheeze of hemoptysis. No shortness of breath at rest. No KAPLAN. CVS: No exertional chest pain, PND or orthopnea. No extremity (more content not included)... Normal [facility] D dimer FEU PPP-ncon 05-31 Fibrin D-dimer FEU (PPP) [Mass/Vol] 210 ng/mL FEU Normal <500 [facility] Comment on above: Order Comment: Speci men Type: BLOOD SPECIMENOrdering Facility: [facility] Address: [address] [place] [address] [place] [address] Result Comment: Froz en Plasma Aliquot Performed By: #### [id number] ####[facility] LABRADHA [id number] [place] [id number] [place] CNOVon 05-24-2024 [facility] Office Visit (UCWSTR ) CODY SANTANA ([id number]) 1985 F Date Time Provider Department 05/24/24 11:15 AM LES MCKEON [facility] During your visit today, we recorded the following information about you: Temperature Pulse Respiration Blood pressure 98.1 degrees 74/minute 16/minute 115/78 Weight 95 kg Les Mckeon APRN.PLUCK SEPARATOR 05/24/2024 12:08 PM Signed Subjective HPI Nontoxic-appearing female presents urgent care chief complaint right shoulder pain. Duration of symptom 1 day. Associated symptoms right shoulder discomfort. States was walking outside when her daughter opened the door she ran into the corner of the metal door. Struck her right shoulder area. Presents today due to discomfort. OTC medications none. No decreased range of motion. Mild tenderness with palpation. Denies surgeries or fractures previously. Is not . [id number]. Past medical history prescription medications allergies reviewed. .Patient presents with: Shoulder Injury: Ran shoulder area into steel outside house door, LROM, pain,x 1 day History reviewed. No pertinent past medical history. PAST SURGICAL HISTORY Procedure Laterality Date REVISE MEDIAN N/CARPAL TUNNEL SURG Bilateral 2016 ALLERGIES Keflex [Cephalexin] and Percocet [Oxycodone-Acetaminophe n] MEDICATIONS rimegepant (NURTEC ODT) 75 mg disintegrating tablet Take 1 tablet by mouth once daily as needed (Migraine). albuterol HFA (PROVENTIL HFA, VENTOLIN HFA) 90 mcg/actuation inhaler Inhale 2 Puffs as instructed every 6 hours as needed for wheezing/shortness of breath. medroxyPROGESTERone (DEPO-PROVERA) 150 mg/mL injection Inject 150 mg intramuscularly every 12 weeks. erenumab-aooe (AIMOVIG AUTOINJECTOR) 70 mg/mL auto-injector Inject 1 mL subcutaneously once every month. ELIQUIS 5 mg tab(s) Take 1 tablet [...] montelukast (SINGULAIR) 10 mg tablet Take 1 tablet by mouth every afternoon. nystatin (MYCOSTATIN) powder APPLY POWDER TOPICALLY TWICE TO THREE TIMES DAILY TO GROIN AREA DIRECTED topiramate (TOPAMAX) 200 mg tablet Take 200 mg by mouth two times a day. haloperidol (HALDOL) 5 mg tablet Take 5 mg by mouth as needed (for anxiety). FAMILY HISTORY Problem Relation Age of Onset Stroke Mother other (CHF) Mother COPD Mother other (rheumatiod arthritis) Father Leukemia Father COPD Maternal Grandmother Pancreatic Cancer Maternal Grandfather Ovarian cancer Paternal Grandmother Social History Tobacco Use Smoking status: Every Day Current packs/day: 1.00 Average packs/day: 1 pack/day for 21.4 years (21.4 ttl pk-yrs) Types: Cigarettes Start date: 12/17/2002 Smokeless tobacco: Never Vaping Use Vaping status: Some Days Substances: Nicotine Devices: Disposable Substance Use Topics Alcohol use: Not Currently Drug use: Not Currently BP 115/78 Pulse 74 Temp 36.7 ?C (98.1 ?F) Resp 16 Wt 95 kg (209 lb 7 oz) LMP (LMP Unknown) SpO2 100% BMI 37.10 kg/m? Review of Systems Constitutional: Negative for chills, fever and malaise/fatigue. Musculoskeletal: Positive for joint pain. Negative for back pain, falls, myalgias and neck pain. Neurological: Negative for dizziness, loss of consciousness, weakness and headaches. Objective Physical Exam Constitutional: General: She is not in acute distress. Appearance: She is not toxic-appearing. HENT: Head: Normocephalic. Nose: Nose normal. Eyes: Pupils: Pupils are equal, round, and reactive to light. Cardiovascular: Rate and Rhythm: Normal rate. Pulmonary: Effort: Pulmonary effort is normal. No respiratory distress. Musculoskeletal: Arms: Cervical back: Normal range of motion. Comments: Point tenderness highlighted area. Neurovascular intact. Full range of motion however does cause discomfort. No erythema edema. No crepitus. No deformities. No tenderness with palpation over humerus or clavicle or scapula. Skin: General: Skin is warm and dry. Neurological: General: No focal deficit present. Mental Status: She is alert. ASSESSMENT/PLAN: 1. Injury of right shoulder, initial encounter - ICD9: 959.2, ICD10: S49.91XA - XR SHOULDER GENERAL 3V OR MORE AP/TRUE AP/OTHER RIGHT IMPRESSION: No acute osseous abnormality. Diagnosed with right shoulder discomfort. X-ray negative. Treat as shoulder contusion. Ice and analgesics discussed. Patient was educated on supportive therapies. Patient will follow up with primary care provider as needed. (more content not included)... Normal [facility] XR SHLDR >/=3V AP/SHIV AP/OTH R RTon 05-24-2024 XR SHLDR >/=3V AP/SHIV AP/OTHR RT * * *Final Report* * * DATE OF EXAM: May 24 2024 11:55AM WOX [id number] - XR SHLDR >/=3V AP/SHIV AP/OTHR RT / PROCEDURE REASON: Injury of right shoulder, initial encounter * * * * Physician Interpretation * * * * EXAMINATION: XR SHLDR >/=3V AP/SHIV AP/OTHR RT PATIENT/TECHNOLOGIST PROVIDED HISTORY: Right shoulder pain after injury last night. CLINICAL INFORMATION: 38 years old Female with Injury of right shoulder, initial encounter TECHNIQUE: XR SHLDR >/=3V AP/SHIV AP/OTHR RT Laterality: RIGHT Number of different views (projections): 3 COMPARISON: None RESULT: No acute fracture or dislocation. Glenohumeral and acromioclavicular joint spaces are maintained. Acromiohumeral interval is maintained. Postsurgical changes of ACDF in the cervical spine. IMPRESSION: No acute osseous abnormality. Wood Preparation Supervisor: LUDIVINA Transcribe Date/Time: May 24 2024 11:57A Dictated by : CRYSTAL SCHAFFER DO This examination was interpreted and the report reviewed and electronically signed by: CRYSTAL SCHAFFER DO on May 24 2024 11:58AM EST [id number] Normal [facility] XR Shoulder - right 3 Viewso n 05-24-2024 IMPRESSION: No acute osseous abnormality. Wood Preparation Supervisor: PSCB Transcribe Date/Time: May 24 2024 11:57A Dictated by : CRYSTAL SCHAFFER DO This examination was interpreted and the report reviewed and electronically signed by: CRYSTAL SCHAFFER DO on May 24 2024 11:58AM EST DIVISION OF RADIOLOGY * * *Final Report* * * DATE OF EXAM: May 24 2024 11:55AM WOX 5253 - XR SHLDR >/=3V AP/SHIV AP/OTHR RT / PROCEDURE REASON: Injury of right shoulder, initial encounter * * * * Physician Interpretation * * * * EXAMINATION: XR SHLDR >/=3V AP/SHIV AP/OTHR RT PATIENT/TECHNOLOGIST PROVIDED HISTORY: Right shoulder pain after injury last night. CLINICAL INFORMATION: 38 years old Female with Injury of right shoulder, initial encounter TECHNIQUE: XR SHLDR >/=3V AP/SHIV AP/OTHR RT Laterality: RIGHT Number of different views (projections): 3 COMPARISON: None RESULT: No acute fracture or dislocation. Glenohumeral and acromioclavicular joint spaces are maintained. Acromiohumeral interval is maintained. Postsurgical changes of ACDF in the cervical spine. DIVISION OF RADIOLOGY Provider, [facility] - 05/24/2024 * * *Final Report* * * DATE OF EXAM: May 24 2024 11:55AM WOX 5253 - XR SHLDR >/=3V AP/SHIV AP/OTHR RT / PROCEDURE REASON: Injury of right shoulder, initial encounter * * * * Physician Interpretation * * * * EXAMINATION: XR SHLDR >/=3V AP/SHIV AP/OTHR RT PATIENT/TECHNOLOGIST PROVIDED HISTORY: Right shoulder pain after injury last night. CLINICAL INFORMATION: 38 years old Female with Injury of right shoulder, initial encounter TECHNIQUE: XR SHLDR >/=3V AP/SHIV AP/OTHR RT Laterality: RIGHT Number of different views (projections): 3 COMPARISON: None RESULT: No acute fracture or dislocation. Glenohumeral and acromioclavicular joint spaces are maintained. Acromiohumeral interval is maintained. Postsurgical changes of ACDF in the cervical spine. IMPRESSION IMPRESSION: No acute osseous abnormality. Wood Preparation Supervisor: LUDIVINA Transcribe Date/Time: May 24 2024 11:57A Dictated by : CRYSTAL SCHAFFER DO This examination was interpreted and the report reviewed and electronically signed by: CRYSTAL SCHAFFER DO on May 24 2024 11:58AM EST [facility] Radiology Study observation (narrative) [facility] XR Shoulder - right 3 ViewsO rdered By: [facility] Provider on 05-24-2024 [facility] ([id number]) 1985 F Date Time Provider Department 04/30/24 [facility] During your visit today, we recorded the following information about you: Unruly Gonzalez RN 04/30/2024 12:01 PM Signed Cody Santana (Johnson: [id number]) - [id number] Nurtec 75MG dispersible tablets status: PA Request Created: April 29, 2024 [id number] Sent: April 30, 2024 Unruly Gonzalez RN 04/30/2024 3:19 PM Signed Cody Santana (Johnson: [id number]) - [id number] Nurtec 75MG dispersible tablets status: PA Response - Approved Created: April 29, 2024 [id number] Sent: April 30, 2024 Allergies As of Date: 04/30/2024 Noted Allergy Reaction KEFLEX (CEPHALEXIN) 09/14/2023 14 - Other: See Comments Comments: deb Esquivel PERCOCET (OXYCODONE-ACETAMINOPHE N)09/14/2023 14 - Other: See Comments Comments: Nose itch Date Reviewed: 04/10/2024 Reviewed by: Inderjit Ontiveros MA - Fully Assessed Reason for Visit: Medication Authorization [1699] [facility] [Other] Prescriptions as of 05/24/2024 - rimegepant (NURTEC ODT) 75 mg disintegrating tablet Take 1 tablet by mouth once daily as needed (Migraine). - predniSONE (DELTASONE) 10 mg tablet Take 4 tabs daily for 3 days, then 2 tabs daily for 3 days, then 1 tab daily for 3 days with food. - albuterol HFA (PROVENTIL HFA, VENTOLIN HFA) 90 mcg/actuation inhaler Inhale 2 Puffs as instructed every 6 hours as needed for wheezing/shortness of breath. - enoxaparin (LOVENOX) 100 mg/mL syrg Inject subcutaneously every 12 hours. - medroxyPROGESTERone (DEPO-PROVERA) 150 mg/mL injection Inject 150 mg intramuscularly every 12 weeks. - erenumab-aooe (AIMOVIG AUTOINJECTOR) 70 mg/mL auto-injector Inject 1 mL subcutaneously once every month. - ELIQUIS 5 mg tab(s) Take 1 tablet by mouth every 12 hours. - cetirizine (ZYRTEC) 10 mg tablet - cholecalciferol (VITAMIN D3) 1,000 unit tab tablet Take 2 tablets by mouth every afternoon. - citalopram (CELEXA) 40 mg tablet Take 1 tablet by mouth every afternoon. - famotidine (PEPCID) 40 mg tablet TAKE 1 TABLET BY MOUTH TWICE DAILY WITH SUPPER AND AT BEDTIME - lamoTRIgine (LAMICTAL) 200 mg tablet TAKE 1 TABLET BY MOUTH ONCE DAILY IN THE MORNING - montelukast (SINGULAIR) 10 mg tablet Take 1 tablet by mouth every afternoon. - nystatin (MYCOSTATIN) powder APPLY POWDER TOPICALLY TWICE TO THREE TIMES DAILY TO GROIN AREA DIRECTED - topiramate (TOPAMAX) 200 mg tablet Take 200 mg by mouth two times a day. - haloperidol (HALDOL) 5 mg tablet Take 5 mg by mouth as needed (for anxiety). Problem List As Of Date: 04/30/2024 (None) Encounter Status:Closed by UNRULY GONZALEZ on 04/30/24 [facility]11-[facility]ANT[facility] ([id number]) 1985 F Date Time Provider Department 04/11/24 CRISSY BELL [facility] During your visit today, we recorded the following information about you: Crissy Bell APRN.[facility] 04/11/2024 7:41 AM Signed Please notify knee xray negative. Continue with plan as discussed during visit. Cody Riley MA 04/11/2024 8:14 AM Signed Patient active MyChart. Last login 04/10. Patient notified via eFolder message. Cody Riley MA Allergies As of Date: 04/11/2024 Noted Allergy Reaction KEFLEX (CEPHALEXIN) 09/14/2023 14 - Other: See Comments Comments: deb Esquivel PERCOCET (OXYCODONE-ACETAMINOPHE N)09/14/2023 14 - Other: See Comments Comments: Nose itch Date Reviewed: 04/10/2024 Reviewed by: Inderjit Ontiveros MA - Fully Assessed Reason for Visit: Results [95] Prescriptions as of 04/11/2024 - predniSONE (DELTASONE) 10 mg tablet Take 4 tabs daily for 3 days, then 2 tabs daily for 3 days, then 1 tab daily for 3 days with food. - albuterol HFA (PROVENTIL HFA, VENTOLIN HFA) 90 mcg/actuation inhaler Inhale 2 Puffs as instructed every 6 hours as needed for wheezing/shortness of breath. - enoxaparin (LOVENOX) 100 mg/mL syrg Inject subcutaneously every 12 hours. - medroxyPROGESTERone (DEPO-PROVERA) 150 mg/mL injection Inject 150 mg intramuscularly every 12 weeks. - erenumab-aooe (AIMOVIG AUTOINJECTOR) 70 mg/mL auto-injector Inject 1 mL subcutaneously once every month. - ELIQUIS 5 mg tab(s) Take 1 tablet by mouth every 12 hours. - cetirizine (ZYRTEC) 10 mg tablet - cholecalciferol (VITAMIN D3) 1,000 unit tab tablet Take 2 tablets by mouth every afternoon. - citalopram (CELEXA) 40 mg tablet Take 1 tablet by mouth every afternoon. - famotidine (PEPCID) 40 mg tablet TAKE 1 TABLET BY MOUTH TWICE DAILY WITH SUPPER AND AT BEDTIME - lamoTRIgine (LAMICTAL) 200 mg tablet TAKE 1 TABLET BY MOUTH ONCE DAILY IN THE MORNING - montelukast (SINGULAIR) 10 mg tablet Take 1 tablet by mouth every afternoon. - nystatin (MYCOSTATIN) powder APPLY POWDER TOPICALLY TWICE TO THREE TIMES DAILY TO GROIN AREA DIRECTED - topiramate (TOPAMAX) 200 mg tablet Take 200 mg by mouth two times a day. - haloperidol (HALDOL) 5 mg tablet Take 5 mg by mouth as needed (for anxiety). Problem List As Of Date: 04/11/2024 (None) Encounter Status:Closed by CODY RILEY on 04/11/24 [facility]20[facility] Office Visit (UCWSTR ) CODY SANTANA ([id number]) 1985 F Date Time Provider Department 04/10/24 7:45 PM JAY DELGADO [facility] During your visit today, we recorded the following information about you: Temperature Pulse Respiration Blood pressure 98.9 degrees 79/minute 18/minute 115/77 Weight 96.5 kg Jay Delgado APRN.PLUCK SEPARATOR 04/10/2024 7:46 PM Signed This note was created using CloudPassageriter. Subjective Cody Santana is a 38 year old female. HPI Yesterday pt hit her left patella against a door frame. Pain has worsened today. She complains of pain medial to the left patella. She otherwise denies any other injuries or health concerns. Review of Systems As above Objective BP 115/77 Pulse 79 Temp 37.2 ?C (98.9 ?F) Resp 18 Wt 96.5 kg (212 lb 11.9 oz) LMP (LMP Unknown) SpO2 100% BMI 37.69 kg/m? Physical Exam Vitals and nursing note reviewed. Constitutional: General: She is not in acute distress. Appearance: Normal appearance. She is not ill-appearing. HENT: Head: Normocephalic. Pulmonary: Effort: Pulmonary effort is normal. Musculoskeletal: General: Normal range of motion. Cervical back: Normal range of motion. Comments: Tenderness medial to the left patella with no obvious swelling or deformities noted. Skin: General: Skin is warm and dry. Neurological: General: No focal deficit present. Mental Status: She is alert. Psychiatric: Mood and Affect: Mood normal. Behavior: Behavior normal. Assessment and Plan ASSESSMENT/PLAN: 1. Acute pain of left knee - ICD9: 719.46, ICD10: M25.562 On evaluation I suspect that patient's knee pain is more consistent with a contusion of the knee however x-ray has been ordered. Due to time of day x-ray will not be read until after closing and patient will be notified of results. She will take Tylenol as needed for pain and slowly resume activities as tolerated. - XR KNEE GENERAL 4V AP BOTH/PA BOTH/LAT/MERC LEFT Jay Delgado APRN.PLUCK SEPARATOR Allergies As of Date: 04/10/2024 Noted Allergy Reaction KEFLEX (CEPHALEXIN) 09/14/2023 14 - Other: See Comments Comments: Achy, weak PERCOCET (OXYCODONE-ACETAMINOPHE N)09/14/2023 14 - Other: See Comments Comments: Nose itch Date Reviewed: 04/10/2024 Reviewed by: Inderjit Ontiveros MA - Fully Assessed Reason for Visit: Knee Injury [1981] Cmt: L knee injury x1 day Primary Visit Diagnosis:Acute pain of left knee [M25.562] Order(s):XR KNEE GENERAL 4V AP BOTH/PA BOTH/LAT/MERC LEFT [[id number]] Order #: [id number] FUTURE Prescriptions as of 04/10/2024 - predniSONE (DELTASONE) 10 mg tablet Take 4 tabs daily for 3 days, then 2 tabs daily for 3 days, then 1 tab daily for 3 days with food. - albuterol HFA (PROVENTIL HFA, VENTOLIN HFA) 90 mcg/actuation inhaler Inhale 2 Puffs as instructed every 6 hours as needed for wheezing/shortness of breath. - enoxaparin (LOVENOX) 100 mg/mL syrg Inject subcutaneously every 12 hours. - medroxyPROGESTERone (DEPO-PROVERA) 150 mg/mL injection Inject 150 mg intramuscularly every 12 weeks. - erenumab-aooe (AIMOVIG AUTOINJECTOR) 70 mg/mL auto-injector Inject 1 mL subcutaneously once every month. - ELIQUIS 5 mg tab(s) Take 1 tablet by mouth every 12 hours. - cetirizine (ZYRTEC) 10 mg tablet - cholecalciferol (VITAMIN D3) 1,000 unit tab tablet Take 2 tablets by mouth every afternoon. - citalopram (CELEXA) 40 mg tablet Take 1 tablet by mouth every afternoon. - famotidine (PEPCID) 40 mg tablet TAKE 1 TABLET BY MOUTH TWICE DAILY WITH SUPPER AND AT BEDTIME - lamoTRIgine (LAMICTAL) 200 mg tablet TAKE 1 TABLET BY MOUTH ONCE DAILY IN THE MORNING - montelukast (SINGULAIR) 10 mg tablet Take 1 tablet by mouth every afternoon. - nystatin (MYCOSTATIN) powder APPLY POWDER TOPICALLY TWICE TO THREE TIMES DAILY TO GROIN AREA DIRECTED - topiramate (TOPAMAX) 200 mg tablet Take 200 mg by mouth two times a day. - haloperidol (HALDOL) 5 mg tablet Take 5 mg by mouth as needed (for anxiety). Problem List As Of Date: 04/10/2024 (None) Encounter Status:Closed by JAY DELGADO on 04/10/24 Normal [facility] MR/BMS.BVSon 04-10-2024 MR/BMS.BVS [facility] Vascular Surgery [address] [place] [address] OFFICE VISIT Date of Service: 04/10/24 MR#: [id number] Acct: [id number] Name: CODY SANTANA Rep #: [id number] : 1985 Provider: ALONZO Schulz Age/Sex: 38/F Location[place] [facility] Status: Signed Intake Vital Signs 03/05/24 07:48 04/10/24 11:39 Height 5 ft 3 in Weight: 201 lb 210 lb BMI 35.6 BP 102/60 100/68 Blood Pressure Location Lt femoral Position Sitting Respiration 14 Pulse 92 86 Pulse Source Monitor Temp 99.8 F H 98.2 F Temp Source Temporal Temporal Pulse Oximetry (%) 98 99 Oxygen Delivery Method room air room air Intake Visit Reasons: 3-4 W F/U Is patient in pain?: Yes Allergies acetaminophen (From [place]) Allergy (Verified 04/10/24 11:42) Itching hydrocodone (From [place]) Allergy (Verified 04/10/24 11:42) Itching oxycodone (From Percocet) Adverse Reaction (Intermediate, Verified 04/10/24 11:42) Itching cephalexin monohydrate (From Keflex) Adverse Reaction (Verified 04/10/24 11:42) WEAKNESS, MUSCLE ACHES Medications ???Medication ???Instructions ???Recorded ???Confirmed ???Type medroxyprogesterone 150 mg/mL 150 mg IM .[id number] control 01/30/15 01/16/24 History intramuscular syringe topiramate 25 mg tablet 200 mg PO BID 01/30/15 01/16/24 History citalopram 40 mg tablet 40 mg PO DAILY mental health 04/04/19 01/16/24 History haloperidol 5 mg tablet 2.5 mg PO TID PRN Anxiety 04/04/19 01/16/24 History apixaban 5 mg tablet 5 mg PO BID blood thinner 06/03/20 01/16/24 History cholecalciferol (vitamin D3) 50 2,000 unit PO DAILY vitamin 06/03/20 01/16/24 History mcg (2,000 unit) capsule acetaminophen 325 mg capsule 325 mg PO ONCE PRN Pain 1-10 Or 08/26/20 01/16/24 History (Tylenol) Fever lidocaine 5 % topical patch 1 patch topical DAILY pain #6 ea 04/13/21 01/16/24 Rx (Lidoderm) albuterol sulfate 90 mcg/actuation 2 puff inhalation Q6H PRN 03/15/23 01/16/24 History aerosol inhaler CONGESTION/ALLERGIES cetirizine 10 mg tablet 10 mg PO .DAILY AM allergies 03/15/23 01/16/24 History famotidine 40 mg tablet 40 mg PO Q12H reflux 03/15/23 01/16/24 History lamotrigine 200 mg tablet 200 mg PO DAILY seizures 03/15/23 01/16/24 History montelukast 10 mg tablet 10 mg PO QHS allergies 03/15/23 01/16/24 History triamcinolone acetonide 55 mcg 2 spray intranasal DAILY 03/15/23 01/16/24 History nasal spray aerosol rimegepant 75 mg disintegrating 75 mg PO DAILY PRN MIGRAINE 08/30/23 01/16/24 History tablet (Nurtec ODT) cyclobenzaprine 10 mg tablet 10 mg PO TID PRN muscle spasm #20 10/17/23 01/16/24 Rx tabs erenumab-aooe 70 mg/mL mg subcut 10/31/23 01/16/24 History subcutaneous auto-injector (Aimovig Autoinjector) enoxaparin 100 mg/mL subcutaneous 90 mg (0.9 mL) subcut BID 30 days 01/10/24 01/16/24 Rx syringe (Lovenox) #54 mL Is last menstrual period known: No Post menopausal: No Patient : No Have you fallen in the past year?: Yes PFSH Medical History Lumbar pain with radiation down right leg Dental caries Brain TIA Dysarthria Chronic migraine Anxiety and depression History of venous thromboembolism Obesity Tobacco use History of nephrolithiasis Chronic neck and back pain Factor 5 Leiden mutation, heterozygous Surgical History S/P cervical spinal fusion History of toe surgery History of carpal tunnel release Family History Mother Heart disease CVA (cerebral vascular accident) Diabetes Father No problems noted. Social History household members: other details: Lives in her home with her 3 children, youngest 9. Smoking Status: Current every day smoker tobacco type: cigarettes, e-cigarettes and smokeless tobacco alcohol intake: never substance use type: does not use HPI HPI HPI: CODY SANTANA, is a 38 F who presents to the office today for follow-up of RLE DVT. She has Factor V Leiden with history of prior DVT/PE and is chronically anticoagulated with Eliquis at baseline. Recall that she presented to the [facility] ER on 01/08/24 with complaint of pain behind her R knee. She had a venous duplex at that time which was read by radiology as it was after hours. Radiology reported positive for DVT popliteal vein. She was changed to Lovenox and sent for f/u in our office. A repeat duplex was performed on 01/11/24 which showed only chronic DVT in the R popliteal vein. On chart review, also found a venous duplex from 2020 which showed chronic R popliteal DVT. To be cautious, we decided to continue Lovenox and perform serial duplex to confirm (more content not included)... Normal [facility] XR KNEE 4V AP/PA BOTH+LAT/ME R LTon 04-10-2024 XR KNEE 4V AP/PA BOTH+LAT/MALLY LT * * *Final Report* * * DATE OF EXAM: Apr 10 2024 8:03PM X [id number] - XR KNEE 4V AP/PA BOTH+LAT/MALLY LT / PROCEDURE REASON: Acute pain of left knee * * * * Physician Interpretation * * * * PROCEDURE: Left knee INDICATION: Acute pain of left knee .Acute left knee pain after hitting it against a door frame. Pain medial to patella. TECHNIQUE: XR KNEE 4V AP/PA BOTH+LAT/MALLY LT COMPARISON: None FINDINGS: No fracture or dislocation. Joint spaces are maintained. No joint effusion. IMPRESSION: No acute abnormality Wood Preparation Supervisor: LUDIVINA Transcribe Date/Time: Apr 10 2024 8:15P Dictated by : YON HURD MD This examination was interpreted and the report reviewed and electronically signed by: YON HURD MD on Apr 10 2024 8:16PM EST [id number] Normal [facility] XR Knee - left 4 Viewson IMPRESSION: No acute abnormality Wood Preparation Supervisor: LUDIVINA Transcribe Date/Time: Apr 10 2024 8:15P Dictated by : YON HURD MD This examination was interpreted and the report reviewed and electronically signed by: YON HURD MD on Apr 10 2024 8:16PM EST DIVISION OF RADIOLOGY * * *Final Report* * * DATE OF EXAM: Apr 10 2024 8:03PM WOX [id number] - XR KNEE 4V AP/PA BOTH+LAT/MALLY LT / PROCEDURE REASON: Acute pain of left knee * * * * Physician Interpretation * * * * PROCEDURE: Left knee INDICATION: Acute pain of left knee .Acute left knee pain after hitting it against a door frame. Pain medial to patella. TECHNIQUE: XR KNEE 4V AP/PA BOTH+LAT/MALLY LT COMPARISON: None FINDINGS: No fracture or dislocation. Joint spaces are maintained. No joint effusion. DIVISION OF RADIOLOGY Provider, [facility] - 04/10/2024 * * *Final Report* * * DATE OF EXAM: Apr 10 2024 8:03PM WOX [id number] - XR KNEE 4V AP/PA BOTH+LAT/MALLY LT / PROCEDURE REASON: Acute pain of left knee * * * * Physician Interpretation * * * * PROCEDURE: Left knee INDICATION: Acute pain of left knee .Acute left knee pain after hitting it against a door frame. Pain medial to patella. TECHNIQUE: XR KNEE 4V AP/PA BOTH+LAT/MALLY LT COMPARISON: None FINDINGS: No fracture or dislocation. Joint spaces are maintained. No joint effusion. IMPRESSION IMPRESSION: No acute abnormality Wood Preparation Supervisor: PSCB Transcribe Date/Time: Apr 10 2024 8:15P Dictated by : YON HURD MD This examination was interpreted and the report reviewed and electronically signed by: YON HURD MD on Apr 10 2024 8:16PM EST [facility] Radiology Study observation (narrative) [facility] XR Knee - left 4 ViewsOrdere d By: Ccf Provider on 04-10-2024 [facility] CNOVon 03-28-2024 CNOV Office Visit (UCWSTR ) CODY SANTANA ([id number]) 1985 F Date Time Provider Department 03/28/24 6:45 PM NELI REDD [facility] During your visit today, we recorded the following information about you: Temperature Pulse Blood pressure Weight 98 degrees 76/minute 101/68 93 kg Neli Redd APRN.CNP 03/29/2024 9:22 AM Signed This note was created using CloudPassageriter. Subjective Cody Santana is a 38 year old female. 38 year old female with PMH presents for complaints of illness. Acute onset approximately 10 days ago +chest congestion +chest tightness +cough, sometimes will have sputum production But mostly dry Denies fever or chills Denies CP Denies hemoptysis +tobacco usage Of note, patient was seen here 03/19/24 Placed on Doxy and Prednisone , being treated for rhino sinusitis at that time No chest Presents today stating the sinus pressure and URI sx improved But the cough and chest tightness remain. 'can't sleep at night Endorses winded with activity Denies she has been diagnosed with asthma or COPD The history is provided by the patient. No foreign language teacher was used. Cough This is a new problem. The current episode started more than 1 week ago. The problem occurs constantly. The problem has been gradually worsening. Cough characteristics: goes between productive and non productive. There has been no fever. Associated symptoms include chills, shortness of breath and wheezing. Pertinent negatives include no chest pain, no sweats, no weight loss, no ear congestion, no ear pain, no headaches, no rhinorrhea, no sore throat, no myalgias and no eye redness. Treatments tried: steroids/albuterol inhaler/Doxy. The treatment provided no relief. She is a smoker. Her past medical history is significant for bronchitis. Her past medical history does not include pneumonia, bronchiectasis, COPD, emphysema or asthma. No past medical history on file. PAST SURGICAL HISTORY Procedure Laterality Date REVISE MEDIAN N/CARPAL TUNNEL SURG Bilateral 2016 ALLERGIES Keflex [Cephalexin] and Percocet [Oxycodone-Acetaminophe n] MEDICATIONS albuterol HFA (PROVENTIL HFA, VENTOLIN HFA) 90 mcg/actuation inhaler Inhale 2 Puffs as instructed every 6 hours as needed for wheezing/shortness of breath. enoxaparin (LOVENOX) 100 mg/mL syrg Inject subcutaneously every 12 hours. medroxyPROGESTERone (DEPO-PROVERA) 150 mg/mL injection Inject 150 mg intramuscularly every 12 weeks. erenumab-aooe (AIMOVIG AUTOINJECTOR) 70 mg/mL auto-injector Inject 1 mL subcutaneously once every month. cetirizine (ZYRTEC) 10 mg tablet cholecalciferol (VITAMIN [...] montelukast (SINGULAIR) 10 mg tablet Take 1 tablet by mouth every afternoon. nystatin (MYCOSTATIN) powder APPLY POWDER TOPICALLY TWICE TO THREE TIMES DAILY TO GROIN AREA DIRECTED topiramate (TOPAMAX) 200 mg tablet Take 200 mg by mouth two times a day. haloperidol (HALDOL) 5 mg tablet Take 5 mg by mouth as needed (for anxiety). azithromycin (ZITHROMAX) 250 mg tablet Take 2 tablets by mouth once daily for 1 day, THEN 1 tablet once daily for 4 days. predniSONE (DELTASONE) 10 mg tablet Take 4 tabs daily for 3 days, then 2 tabs daily for 3 days, then 1 tab daily for 3 days with food. ELIQUIS 5 mg tab(s) Take 1 tablet by mouth every 12 hours. FAMILY HISTORY Problem Relation Age of Onset Stroke Mother other (CHF) Mother COPD Mother other (rheumatiod arthritis) Father Leukemia Father COPD Maternal Grandmother Pancreatic Cancer Maternal Grandfather Ovarian cancer Paternal Grandmother Social History Tobacco Use Smoking status: Every Day Current packs/day: 1.00 Average packs/day: 1 pack/day for 21.3 years (21.3 ttl pk-yrs) Types: Cigarettes Start date: 12/17/2002 Smokeless tobacco: Never Vaping Use Vaping status: Some Days Substances: Nicotine Devices: Disposable Substance Use Topics Alcohol use: Not Currently Drug use: Not Currently Review of Systems Constitutional: Positive for chills, fatigue and fever. Negative for weight loss. HENT: Positive for congestion. Negative for ear pain, rhinorrhea, sinus pressure, sinus pain and sore throat. Eyes: Negative for redness. Respiratory: Positive for cough, chest tightness, shortness of breath and wheezing. Cardiovascular: Negative for chest pain. Gastrointestinal: Negative for abdominal pain, diarrhea, nausea and vomiting. Endocrine: Negative for cold intolerance, heat intolerance and polydipsia. Musculoskeletal: Negative for myalgias. Skin: Negative for color gunn (more content not included)... Normal [facility] XR CHEST 2V FRONTAL/LATon XR CHEST 2V FRONTAL/LAT * * *Final Report* * * DATE OF EXAM: Mar 28 2024 7:15PM WOX [id number] - XR CHEST 2V FRONTAL/LAT / PROCEDURE REASON: Acute cough * * * * Physician Interpretation * * * * EXAMINATION: CHEST RADIOGRAPH (2 VIEW FRONTAL and LATERAL) CLINICAL HISTORY: Acute cough MQ: XC2_6 EXAM DATE/TIME: 03/28/2024 7:15 PM COMPARISON: No relevant prior studies available. RESULT: Lines, tubes, and devices: None. Lungs and pleura: No consolidation. No lung mass. No pleural effusion. No pneumothorax. Cardiomediastinal silhouette: Normal cardiomediastinal silhouette. Bones and soft tissues: Plate and screw fixation at the cervicothoracic junction. IMPRESSION: No acute radiographic abnormality. Wood Preparation Supervisor: LUDIVINA Transcribe Date/Time: Mar 28 2024 7:53P Dictated by : LUCINA WING MD This examination was interpreted and the report reviewed and electronically signed by: LUCINA WING MD on Mar 28 2024 7:54PM EST [id number] Normal [facility] XR Chest PA and Lateralon IMPRESSION: No acute radiographic abnormality. Wood Preparation Supervisor: LUDIVINA Transcribe Date/Time: Mar 28 2024 7:53P Dictated by : LUCINA WING MD This examination was interpreted and the report reviewed and electronically signed by: LUCINA WING MD on Mar 28 2024 7:54PM [facility] DIVISION OF RADIOLOGY * * *Final Report* * * DATE OF EXAM: Mar 28 2024 7:15PM WOX [id number] - XR CHEST 2V FRONTAL/LAT / PROCEDURE REASON: Acute cough * * * * Physician Interpretation * * * * EXAMINATION: CHEST RADIOGRAPH (2 VIEW FRONTAL & LATERAL) CLINICAL HISTORY: Acute cough MQ: XC2_6 EXAM DATE/TIME: 03/28/2024 7:15 PM COMPARISON: No relevant prior studies available. RESULT: Lines, tubes, and devices: None. Lungs and pleura: No consolidation. No lung mass. No pleural effusion. No pneumothorax. Cardiomediastinal silhouette: Normal cardiomediastinal silhouette. Bones and soft tissues: Plate and screw fixation at the cervicothoracic junction. DIVISION OF RADIOLOGY Provider, Gini [facility] - 03/28/2024 * * *Final Report* * * DATE OF EXAM: Mar 28 2024 7:15PM WOX 5291 - XR CHEST 2V FRONTAL/LAT / PROCEDURE REASON: Acute cough * * * * Physician Interpretation * * * * EXAMINATION: CHEST RADIOGRAPH (2 VIEW FRONTAL & LATERAL) CLINICAL HISTORY: Acute cough MQ: XC2_6 EXAM DATE/TIME: 03/28/2024 7:15 PM COMPARISON: No relevant prior studies available. RESULT: Lines, tubes, and devices: None. Lungs and pleura: No consolidation. No lung mass. No pleural effusion. No pneumothorax. Cardiomediastinal silhouette: Normal cardiomediastinal silhouette. Bones and soft tissues: Plate and screw fixation at the cervicothoracic junction. IMPRESSION IMPRESSION: No acute radiographic abnormality. Wood Preparation Supervisor: LUDIVINA Transcribe Date/Time: Mar 28 2024 7:53P Dictated by : LUCINA WNIG MD This examination was interpreted and the report reviewed and electronically signed by: LUCINA WING MD on Mar 28 2024 7:54PM [facility] Radiology Study observation (narrative) [facility] XR Chest PA and LateralOrder ed By: Ccf Provider on 03-28-2024 [facility] Venous Duplex US, Unilateral on 03-20-2024 Venous Duplex US, Unilateral [facility] Cardi[facility] [address] [place] [address] Venous Duplex US, Unilateral 03/20/24 0856 MR#: [id number] Acct: [id number] Name: CODY SANTANA Rep #: [id number] : 1985 38 From: Ck Martinez MD Attending Dr: ALONZO Schulz Status: REG CLI Ordering Dr: Gracie Parmar Date: 03/20/24 Location: [facility] Sex: F C Admitted: Reason For Study: Right leg swelling RIGHT LEFT GSV is normal. CFV is compressible, spontaneous, phasic, CFV is compressible, spontaneous, phasic, competent, and demonstrates normal competent and demonstrates normal augmentation. augmentation. FV is compressible, spontaneous, phasic, competent and demonstrates normal augmentation. PopV is partially noncompressible with bright intraluminal echoes noted. Normal venous flow. T/P Trunk is compressible. PTV is compressible. RT PerV is compressible. Procedure This is a venous duplex using B-mode, color flow and spectral Doppler. Exam performed in department. Compared to 01/10/2024. A preliminary report was called and/or faxed to [facility]. VL/Venous Duplex US, Unilateral Interpretation Summary Chronic deep vein thrombosis is noted in the right popliteal vein. Ordering Physician: Gracie Parmar Referring Physician: Neli Tripp Performed By: Sailaja Lam RVT 03/20/24 180 Date Ck Martinez MD CC: BOOKING MANAGER-C 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 Neli Tripp; ALONZO Schulz Date Dictated: 03/20/24855 Date Transcribed: 03/20/241800 Wood Preparation Supervisor: Signed [facility] 03-19-2024 [facility] Office Visit (UCWSTR ) CODY SANTANA ([id number]) 1985 F Date Time Provider Department 03/19/24 9:15 AM MICHELLE MARVIN [facility] During your visit today, we recorded the following information about you: Temperature Pulse Respiration Blood pressure 98.3 degrees 96/minute 18/minute 106/64 Weight 93.4 kg Michelle Marvin APRN.PLUCK SEPARATOR 03/19/2024 9:31 AM Signed CC: Patient presents with: Cough: Cough, sinus, chest congestion and QUINTANA x 2 weeks HPI: Cody Santana is a 38 year old female who presents to the office with complaint of chest congestion and cough, nonproductive for 2 weeks. Symptoms are worsening Associated symptoms includes headache. Denies fever, nausea, vomiting , and diarrhea. Treatments tried include nothing so far. with no relief of symptoms. Sick contacts: unknown. History of asthma, frequent episodes of bronchitis, chronic bronchitis, bronchiectasis or COPD: asthma and copd Smoker: No Seasonal/environmental allergies: No The ROS is otherwise negative. The patient's pmh, medications, allergies, and past visits are reviewed. PHYSICAL EXAM: BP 106/64 Pulse 96 Temp 36.8 ?C (98.3 ?F) (Tympanic) Resp 18 Wt 93.4 kg (205 lb 14.6 oz) SpO2 98% BMI 36.48 kg/m? General appearance: alert, cooperative, pleasant, in no acute distress Head: Normocephalic Eyes: EOM's intact, conjunctiva pink and moist, no icterus, sclera white, non-injected Ears: Right ear: External ear/canal- Normal, TM - clear with good landmarks. Left ear: External ear/canal- Normal, TM - clear with good landmarks Oropharynx:moist without lesions, No erythema, exudates or tonsillar hypertrophy. Neck: mild cervical adenopathy Heart: Negative. RRR without obvious murmur, gallop, or rubs. No ectopy. Lungs: clear to auscultation, without rales or wheeze, good air exchange No past medical history on file. PAST SURGICAL HISTORY Procedure Laterality Date REVISE MEDIAN N/CARPAL TUNNEL SURG Bilateral 2016 ALLERGIES Keflex [Cephalexin] and Percocet [Oxycodone-Acetaminophe n] MEDICATIONS enoxaparin (LOVENOX) 100 mg/mL syrg Inject subcutaneously every 12 hours. medroxyPROGESTERone (DEPO-PROVERA) 150 mg/mL injection Inject 150 mg intramuscularly every 12 weeks. erenumab-aooe (AIMOVIG AUTOINJECTOR) 70 mg/mL auto-injector Inject 1 mL subcutaneously once every month. cetirizine (ZYRTEC) 10 mg tablet cholecalciferol (VITAMIN [...] montelukast (SINGULAIR) 10 mg tablet Take 1 tablet by mouth every afternoon. nystatin (MYCOSTATIN) powder APPLY POWDER TOPICALLY TWICE TO THREE TIMES DAILY TO GROIN AREA DIRECTED topiramate (TOPAMAX) 200 mg tablet Take 200 mg by mouth two times a day. haloperidol (HALDOL) 5 mg tablet Take 5 mg by mouth as needed (for anxiety). ELIQUIS 5 mg tab(s) Take 1 tablet by mouth every 12 hours. FAMILY HISTORY Problem Relation Age of Onset Stroke Mother other (CHF) Mother COPD Mother other (rheumatiod arthritis) Father Leukemia Father COPD Maternal Grandmother Pancreatic Cancer Maternal Grandfather Ovarian cancer Paternal Grandmother Social History Tobacco Use Smoking status: Every Day Current packs/day: 1.00 Average packs/day: 1 pack/day for 21.3 years (21.3 ttl pk-yrs) Types: Cigarettes Start date: 12/17/2002 Smokeless tobacco: Never Vaping Use Vaping status: Some Days Substances: Nicotine Devices: Disposable Substance Use Topics Alcohol use: Not Currently Drug use: Not Currently ASSESSMENT/PLAN: 1. Acute cough - ICD9: 786.2, ICD10: R05.1 (primary diagnosis) - PREDNISONE 10 MG TABLET - ALBUTEROL SULFATE HFA 90 MCG/ACTUATION AEROSOL INHALER 2. Rhinosinusitis - ICD9: 473.9, ICD10: J32.9 - DOXYCYCLINE HYCLATE 100 MG TABLET Prescription instructions reviewed with patient as applicable. Potential red flag symptoms discussed with the patient. Reviewed appropriate action plan to take if red flag symptoms occur. Patient agreeable to treatment plan. Michelle Marvin APRN.PLUCK SEPARATOR Allergies As of Date: 03/19/2024 Noted Allergy Reaction KEFLEX (CEPHALEXIN) 09/14/2023 14 - Other: See Comments Comments: deb Esquivel PERCOCET (OXYCODONE-ACETAMINOPHE N)09/14/2023 14 - Other: See Comments Comments: Nose itch Date Reviewed: 03/19/2024 Reviewed by: Zelda Cunha LPN - Fully Assessed Reason for Visit: Cough [28] Cmt: Cough, sinus, chest congestion and QUINTANA x 2 weeks Primary Visit Diagnosis:Acute cough [R05.1] Other Visit Diagnosis:Rhinosinusiti s [J32.9] Order(s):doxycycline (VIBRA-TABS) 100 mg tabletTake 1 tablet by mouth two times a day for (more content not included)... Normal [facility] Urgent Care Visit Reporton 0 03-05-2024 Urgent Care Visit Report [facility] [address], [address] [place], [place] [id number] OFFICE VISIT Date of Service: 03/05/24 MR#: [id number] Acct: [id number] Name: CODY SANTANA Rep #: [id number] : 1985 Provider: LAONZO Escoto Age/Sex: 38/F Location[place] [facility] Status: Signed Intake Vital Signs 01/08/24 20:05 03/05/24 07:48 Height 5 ft 3 in 5 ft 3 in Weight: 201 lb BMI 35.6 BP 102/60 Pulse 92 Temp 99.8 F H Temp Source Temporal Pulse Oximetry (%) 98 Oxygen Delivery Method room air Intake Visit Reasons: SORE IN NOSE Accompanied by: Daughter Allergies acetaminophen (From [place]) Allergy (Verified 03/05/24 07:49) Itching hydrocodone (From [place]) Allergy (Verified 03/05/24 07:49) Itching oxycodone (From Percocet) Adverse Reaction (Intermediate, Verified 03/05/24 07:49) Itching cephalexin monohydrate (From Keflex) Adverse Reaction (Verified 03/05/24 07:49) WEAKNESS, MUSCLE ACHES Medications ???Medication ???Instructions ???Recorded ???Confirmed ???Type medroxyprogesterone 150 mg/mL 150 mg IM .[id number] control 01/30/15 01/16/24 History intramuscular syringe topiramate 25 mg tablet 200 mg PO BID 01/30/15 01/16/24 History citalopram 40 mg tablet 40 mg PO DAILY mental health 04/04/19 01/16/24 History haloperidol 5 mg tablet 2.5 mg PO TID PRN Anxiety 04/04/19 01/16/24 History apixaban 5 mg tablet 5 mg PO BID blood thinner 06/03/20 01/16/24 History cholecalciferol (vitamin D3) 50 2,000 unit PO DAILY vitamin 06/03/20 01/16/24 History mcg (2,000 unit) capsule acetaminophen 325 mg capsule 325 mg PO ONCE PRN Pain 1-10 Or 08/26/20 01/16/24 History (Tylenol) Fever lidocaine 5 % topical patch 1 patch topical DAILY pain #6 ea 04/13/21 01/16/24 Rx (Lidoderm) albuterol sulfate 90 mcg/actuation 2 puff inhalation Q6H PRN 03/15/23 01/16/24 History aerosol inhaler CONGESTION/ALLERGIES cetirizine 10 mg tablet 10 mg PO .DAILY AM allergies 03/15/23 01/16/24 History famotidine 40 mg tablet 40 mg PO Q12H reflux 03/15/23 01/16/24 History lamotrigine 200 mg tablet 200 mg PO DAILY seizures 03/15/23 01/16/24 History montelukast 10 mg tablet 10 mg PO QHS allergies 03/15/23 01/16/24 History triamcinolone acetonide 55 mcg 2 spray intranasal DAILY 03/15/23 01/16/24 History nasal spray aerosol rimegepant 75 mg disintegrating 75 mg PO DAILY PRN MIGRAINE 08/30/23 01/16/24 History tablet (Nurtec ODT) cyclobenzaprine 10 mg tablet 10 mg PO TID PRN muscle spasm #20 10/17/23 01/16/24 Rx tabs erenumab-aooe 70 mg/mL mg subcut 10/31/23 01/16/24 History subcutaneous auto-injector (Aimovig Autoinjector) enoxaparin 100 mg/mL subcutaneous 90 mg (0.9 mL) subcut BID 30 days 01/10/24 01/16/24 Rx syringe (Lovenox) #54 mL doxycycline monohydrate 100 mg 100 mg PO BID #20 caps 03/05/24 03/05/24 Rx capsule PFSH Medical History Lumbar pain with radiation down right leg Dental caries Brain TIA Dysarthria Chronic migraine Anxiety and depression History of venous thromboembolism Obesity Tobacco use History of nephrolithiasis Chronic neck and back pain Factor 5 Leiden mutation, heterozygous Surgical History S/P cervical spinal fusion History of toe surgery History of carpal tunnel release Family History Mother Heart disease CVA (cerebral vascular accident) Diabetes Father No problems noted. Social History household members: other details: Lives in her home with her 3 children, youngest 9. Smoking Status: Current every day smoker tobacco type: cigarettes, e-cigarettes and smokeless tobacco alcohol intake: never substance use type: does not use HPI HPI Details: CODY SANTANA, is a 38 F who presents to the office today for 3 to 4-day history of persistent erythematous sore crusting lesion to the outer surface of the right nare. Patient notes having had a history of impetigo in the past, concerned this may be the same. No complaints of fever, chills, sweats, lightheadedness/dizzine ss, nausea/vomiting. No fuzh-emr-rbhhtfh products taken to assist. No other associated symptoms and no other alleviating/aggravating factors. ROS Const Constitutional: No other (As above) Exam Const General: cooperative, healthy appearing and no acute distress Orientation: alert and awake HENAR Head: normal to inspection Ears: hearing grossly normal bilaterally and external ears normal Nose: external nose normal, nares normal and no nasal discharge Resp Effort Inspection: normal respiratory effort and able to speak in complete sentences Cardio Rate: regular rate Pulses: radi (more content not included)... Normal [facility] CNOVon 02-28-2024 CNOV Office Visit (CVAKPO ) CODY SANTANA ([id number]) 1985 F Date Time Provider Department 02/28/24 11:00 AM CHARLINE WOOTEN During your visit today, we recorded the following information about you: Pulse Blood pressure Weight Height 84/minute 110/73 90.3 kg 1.6 m Charline Wooten APRN.PLUCK SEPARATOR 02/28/2024 12:44 PM Signed [facility] Established Visit Consultation is requested by: No referring provider defined for this encounter. PCP: To use this Smartlink, specify the provider ID whose address you want to display, e.g., .PROVADDR[1 (where 1 is the provider ID). [facility] Cody Darin Santana is a 38 year old female presenting for follow up. Initial visit with Dr. Marques on 10/25/23. 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 As per the patient, stroke was suspected and was advised MRI brain as out patient. However, the MRI brain that was done two months later was negative for stroke. No recurrence of stroke symptoms. She was referred to the stroke clinic for further evaluation and management. Patient has not been adherent with the Eliquis Review of system: Mild snoring but no witnessed apnea. As per her sleep study came back negativeX1 miscarriage. No trauma or whiplash. She used to follow up with the chiropractic clinic and last visit was one wear ago Social history: Chronic tobacco smoker. No history of ETOH or drug abuse. She is single Reason for Visit: TIA Date of Last Event: 03/15/2023 Antiplatelets/Anticoagu lants: Enoxaparin sodium Residual Deficits: No residual deficits Current Living Situation: Home with minor children Current use of a mobility aid for walking/getting around: None Office Visit 02/28/24 -presents for hospital discharge follow up -denies any new stroke-like symptoms -history of vertigo, had some symptoms last night when she was laying down to go to bed. [place] like prior episodes. No issues getting up to walk to the bathroom. No nausea or vomiting -tired during the day -her boyfriend has later work schedule so she goes to sleep around 2AM and wakes 8:30-9AM. 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 Recommended 3 months lovenox then consideration of going to xarelto. [facility] vascular -unsure of next appt with Vascular -seeing Hematology in May, she has questions about the lupus anticoagulant -BP 110/73 -current smoker, 1.5ppd - over the summer was down to 1 cigrette per day but was under a lot of stress, DCF took her children away but she has them back now -DVT and PE in 2016 that was attributed to factor V Leiden mutation No past medical history on file. PAST SURGICAL HISTORY Procedure Laterality Date REVISE MEDIAN N/CARPAL TUNNEL SURG Bilateral 2016 FAMILY HISTORY Problem Relation Age of Onset Stroke Mother other (CHF) Mother COPD Mother other (rheumatiod arthritis) Father Leukemia Father COPD Maternal Grandmother Pancreatic Cancer Maternal Grandfather Ovarian cancer Paternal Grandmother Social History Tobacco Use Smoking status: Every Day Current packs/day: 1.00 Average packs/day: 1 pack/day for 21.2 years (21.2 ttl pk-yrs) Types: Cigarettes Start date: 12/17/2002 Smokeless tobacco: Never Vaping Use Vaping status: Some Days Substances: Nicotine Devices: Disposable Substance Use Topics Alcohol use: Not Currently Drug use: Not Currently MEDICATIONS Current Outpatient Medications Medication Sig enoxaparin (LOVENOX) 100 mg/mL syrg Inject subcutaneously every 12 hours. medroxyPROGESTERone (DEPO-PROVERA) 150 mg/mL injection Inject 150 mg intramuscularly every 12 weeks. erenumab-aooe (AIMOVIG AUTOINJECTOR) 70 mg/mL auto-injector Inject 1 mL subcutaneously once every month. cetirizine (ZYRTEC) 10 mg tablet cholecalciferol (VITAMIN D3) 1,000 unit tab tablet Take 2 tablets by mouth every afternoon. citalopram (CELEXA) 40 mg tablet Take 1 tablet by mouth every afternoon. famotidine (PEPCID) 40 mg tablet TAKE 1 TABLET BY MOUTH TWICE DAILY WITH SUPPER AND AT BEDTIME lamoTRIgine (LAMICTAL) 20 (more content not included)... Normal [facility] ANTINUCLE[facility]IB[facility] ALFONZO,DIRECT Positive Abnormal Negative [facility] Comment on above: Result Comment: Perf ormed at: CB - [facility] [address] [id number] Sweater Designer: Wilson Hansen PhD, Phone: [phone] Performed By: #### L 100.0100, L501.1400, L101.9900, L501.9810, L3100.1244, L505.5710 ####[facility] [address] [place], [address] CBC W/Diff, Automatedon 02-10 Absolute Lymph 3.34 X10 3/uL Normal 0.83-4.51 [facility] Comment on above: Order Comment: CBCD ADDED ON 1 DAY OLD Performed By: #### L 100.0100, L501.1400, L101.9900, L501.6710, L3100.5475, L505.7010 ####[facility] [address] [place], [address] Absolute Neut 3.2 X10 3/uL Normal 2.0-7.7 [facility] Comment on above: Order Comment: CBCD ADDED ON 1 DAY OLD Performed By: #### L 100.0100, L501.1400, L101.9900, L501.6710, L3100.5475, L505.7010 ####[facility] [address] [place], [address] Basophils/100 WBC (Bld) 0.8 % Normal 0-1 [facility] Comment on above: Order Comment: CBCD ADDED ON 1 DAY OLD Performed By: #### L 100.0100, L501.1400, L101.9900, L501.6710, L3100.5475, L505.7010 ####[facility] [address] [place], [address] Eosinophils/100 WBC (Bld) 2.6 % Normal 0-5 [facility] Comment on above: Order Comment: CBCD ADDED ON 1 DAY OLD Performed By: #### L 100.0100, L501.1400, L101.9900, L501.6710, L3100.5475, L505.7010 ####[facility] [address] [place], [address] Erythrocyte distribution width (RBC) [Ratio] 13.2 % Normal 11.6-14.6 [facility] Comment on above: Order Comment: CBCD ADDED ON 1 DAY OLD Performed By: #### L 100.0100, L501.1400, L101.9900, L501.6710, L3100.5475, L505.7010 ####[facility] [address] [place], [address] Hematocrit (Bld) [Volume fraction] 38.6 % Normal 37-47 [facility] Comment on above: Order Comment: CBCD ADDED ON 1 DAY OLD Performed By: #### L 100.0100, L501.1400, L101.9900, L501.6710, L3100.5475, L505.7010 ####[facility] [address] [place], [address] Hemoglobin (Bld) [Mass/Vol] 12.7 g/dL Normal 12.0-15.0 [facility] Comment on above: Order Comment: CBCD ADDED ON 1 DAY OLD Performed By: #### L 100.0100, L501.1400, L101.9900, L501.6710, L3100.5475, L505.7010 ####[facility] [address] [place], [address] IG% 0.100 Normal 0.0-0.9 [facility] Comment on above: Order Comment: CBCD ADDED ON 1 DAY OLD Result Comment: IG% - Immature Granulocytes (promyelocytes, myelocytes and metamyelocytes) > 1% indicates that a LEFT SHIFT is Present. Performed By: #### L 100.0100, L501.1400, L101.9900, L501.6710, L3100.5475, L505.7010 ####[facility] [address] [place], [address] Lymphocytes/100 WBC (Bld) 45.9 % High 19-41 [facility] Comment on above: Order Comment: CBCD ADDED ON 1 DAY OLD Performed By: #### L 100.0100, L501.1400, L101.9900, L501.6710, L3100.5475, L505.7010 ####[facility] [address] [place], [address] MCH (RBC) [Entitic mass] 31.8 pg Normal 27.0-32.0 [facility] Comment on above: Order Comment: CBCD ADDED ON 1 DAY OLD Performed By: #### L 100.0100, L501.1400, L101.9900, L501.6710, L3100.5475, L505.7010 ####[facility] [address] [place], [address] MCHC (RBC) [Mass/Vol] 32.9 g/dL Normal 32-36 [facility] Comment on above: Order Comment: CBCD ADDED ON 1 DAY OLD Performed By: #### L 100.0100, L501.1400, L101.9900, L501.6710, L3100.5475, L505.7010 ####[facility] [address] [place], [address] MCV (RBC) [Entitic vol] 96.7 fL Normal 81-99 [facility] Comment on above: Order Comment: CBCD ADDED ON 1 DAY OLD Performed By: #### L 100.0100, L501.1400, L101.9900, L501.6710, L3100.5475, L505.7010 ####[facility] [address] [place], [address] Monocytes/100 WBC (Bld) 7.0 % Normal 0-10 [facility] Comment on above: Order Comment: CBCD ADDED ON 1 DAY OLD Performed By: #### L 100.0100, L501.1400, L101.9900, L501.6710, L3100.5475, L505.7010 ####[facility] [address] [place], [address] Neutrophils/100 WBC (Bld) 43.6 % Low 47-70 [facility] Comment on above: Order Comment: CBCD ADDED ON 1 DAY OLD Performed By: #### L 100.0100, L501.1400, L101.9900, L501.6710, L3100.5475, L505.7010 ####[facility] [address] [place], [address] Nucleated RBC (Bld) [#/Vol] 0 10*3/uL Normal 0-5 [facility] Comment on above: Order Comment: CBCD ADDED ON 1 DAY OLD Performed By: #### L 100.0100, L501.1400, L101.9900, L501.6710, L3100.5475, L505.7010 ####[facility] [address] [place], [address] Platelet mean volume (Bld) [Entitic vol] 11.8 fL Normal 6.2-12.0 [facility] Comment on above: Order Comment: CBCD ADDED ON 1 DAY OLD Performed By: #### L 100.0100, L501.1400, L101.9900, L501.6710, L3100.5475, L505.7010 ####[facility] [address] [place], [address] Platelets (Bld) [#/Vol] 206 10*3/uL Normal 150-450 [facility] Comment on above: Order Comment: CBCD ADDED ON 1 DAY OLD Performed By: #### L 100.0100, L501.1400, L101.9900, L501.6710, L3100.5475, L505.7010 ####[facility] [address] [place], [address] RBC (Bld) [#/Vol] 3.99 10*6/uL Low 4.2-5.4 [facility] Comment on above: Order Comment: CBCD ADDED ON 1 DAY OLD Performed By: #### L 100.0100, L501.1400, L101.9900, L501.6710, L3100.5475, L505.7010 ####[facility] [address] [place], [address] RDW SD 47.3 fl High 35.1-43.9 [facility] Comment on above: Order Comment: CBCD ADDED ON 1 DAY OLD Performed By: #### L 100.0100, L501.1400, L101.9900, L501.6710, L3100.5475, L505.7010 ####[facility] [address] [place], [address] WBC (Bld) [#/Vol] 7.3 10*3/uL Normal 4.4-11.0 [facility] Comment on above: Order Comment: CBCD ADDED ON 1 DAY OLD Performed By: #### L 100.0100, L501.1400, L101.9900, L501.6710, L3100.5475, L505.7010 ####[facility] [address] [place], [address] CRPon 02-21-2024 C-REACTIVE PROT < 2.90 Normal 0.0-3.0 [facility] Comment on above: Result Comment: C-Re active Protein (CRP) provides useful information for the diagnosis, therapy and monitoring of inflammatory processes and associated diseases. For the evaluation of Relative Risk for Cardiovascular Disease, a High Sensitivity CRP (HSCRP) should be ordered. Performed By: #### L 100.0100, L501.1400, L101.9900, L501.6710, L3100.5475, L505.7010 ####[facility] [address] [place], [place], [address] Erythrocyte Sed Rateon 02-20 SED RATE 10 mm/hr Normal 0-30 [facility] Comment on above: Performed By: #### L 100.0100, L501.1400, L101.9900, L501.6710, L3100.5475, L505.7010 #### [facility] [address] [place], [place], [address] Rheumatoid Factoron 02-21-20 24 RHEUMATOID FAC < 10.0 Normal <15 [facility] Comment on above: Performed By: #### L 100.0100, L501.1400, L101.9900, L501.6710, L3100.5475, L505.7010 ####[facility] [address] [place], [address] Uric Acidon 02-21-2024 URIC 2.7 mg/dL Normal 2.6-6.0 [facility] Comment on above: Result Comment: The drugs N-Acetylcysteine and Metamizole may falsely depress this assay. Performed By: #### L 100.0100, L501.1400, L101.9900, L501.6710, L3100.5475, L505.7010 ####[facility] [address] [place], [address] [facility] 02-04-2024 [facility] Telephone (HEMAWS) CODY SANTANA ([id number]) 1985 F Date Time Provider Department 02/04/24 PATY ARCINIEGA During your visit today, we recorded the following information about you: Paty Arciniega DO 02/04/2024 3:43 PM Signed I reviewed the office visit note from vascular surgery at [facility]. She had presented to the ER at [facility] on 01/07 with complete of pain behind the right knee. Ultrasound was read by radiology since it was after hours when she was there. They reported a positive finding of DVT in the popliteal vein. She followed up with vascular surgery on 01/16/2024. They advised 3 months of Lovenox then consideration of transition back to pill form of anticoagulation called Xarelto. Evidently they're going to repeat an ultrasound in 3 months as well. I would like to see her for follow-up in about 4 months. D-dimer at the time of OV. DO Dylan [facility], Victor Manuel 02/05/2024 10:49 AM Signed 1st attempt. Message left for patient to contact office to schedule- D dimer lab then office visit with Dr. Arciniega in 4 months Victor Manuel Horn 02/05/2024 10:58 AM Signed Scheduled with patient Allergies As of Date: 02/04/2024 Noted Allergy Reaction KEFLEX (CEPHALEXIN) 09/14/2023 14 - Other: See Comments Comments: Zulmay, weak PERCOCET (OXYCODONE-ACETAMINOPHE N)09/14/2023 14 - Other: See Comments Comments: Nose itch Date Reviewed: 11/14/2023 Reviewed by: Natalie Mancia LPN - Fully Assessed Reason for Visit: Follow Up [171] Prescriptions as of 02/05/2024 - medroxyPROGESTERone (DEPO-PROVERA) 150 mg/mL injection Inject 150 mg intramuscularly every 12 weeks. - erenumab-aooe (AIMOVIG AUTOINJECTOR) 70 mg/mL auto-injector Inject 1 mL subcutaneously once every month. - ELIQUIS 5 mg tab(s) Take 1 tablet by mouth every 12 hours. - cetirizine (ZYRTEC) 10 mg tablet - cholecalciferol (VITAMIN D3) 1,000 unit tab tablet Take 2 tablets by mouth every afternoon. - citalopram (CELEXA) 40 mg tablet Take 1 tablet by mouth every afternoon. - famotidine (PEPCID) 40 mg tablet TAKE 1 TABLET BY MOUTH TWICE DAILY WITH SUPPER AND AT BEDTIME - lamoTRIgine (LAMICTAL) 200 mg tablet TAKE 1 TABLET BY MOUTH ONCE DAILY IN THE MORNING - montelukast (SINGULAIR) 10 mg tablet Take 1 tablet by mouth every afternoon. - nystatin (MYCOSTATIN) powder APPLY POWDER TOPICALLY TWICE TO THREE TIMES DAILY TO GROIN AREA DIRECTED - topiramate (TOPAMAX) 200 mg tablet Take 200 mg by mouth two times a day. - haloperidol (HALDOL) 5 mg tablet Take 5 mg by mouth as needed (for anxiety). Problem List As Of Date: 02/04/2024 (None) Encounter Status:Closed by MARY ALICE SARAVIA on 02/05/24 Normal [facility] NCS and/or EMG Patienton NCS and/or EMG Patient [facility] Pulmonary Services/Neurology [address] [place] [address] MR#: [id number] Acct: [id number] Name: CODY SANTANA Rep #: [id number] : 1985 38 From: Zelda Chapman MD Referring Dr: Yoni Ortiz DO Status: REG C LI Location: PSN Date: 01/31/24 Sex: F C NCS and/or EMG Patient Report Ordering Doctor: Yoni Ortiz DATE OF SERVICE: 01/31/24 Cody returns with complaints of numbness and tingling in the hands, worse on the right side. She has a history of cervical fusion. She reports a history of carpal tunnel release. Electrodiagnostic findings: Right median motor nerve demonstrates prolonged distal latency with normal amplitude and conduction velocity. Left median motor nerve demonstrates normal distal latency, amplitude and conduction velocity. Ulnar motor responses within normal limits bilaterally. Normal median and ulnar F???waves. Needle EMG testing was performed the upper limbs. All muscles tested showed no evidence of denervation with normal motor unit action potentials. Electrodiagnostic impression: This is an abnormal study in the upper limbs 1. Electrodiagnostic findings suggestive of right-sided median mononeuropathy. This is consistent with a mild, recurrent carpal tunnel syndrome. 2. No electrodiagnostic evidence is noted for cervical radiculopathy. Multi Select Codes Neurology Neurology Interp Codes: 11142-30 Musc test done w/n test comp (interp) (2) and 59464-19 Nrv cndj test 11-12 studies (interp) 01/31/24 1430 Date Zelda Chapman MD CC: BOOKING MANAGER-C 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 Neli Tripp; Dr. Zelda Chapman MD; Dr. Yoni Ortiz DO Date Dictated: 01/31/241426 Date Transcribed: 01/31/241426 Wood Preparation Supervisor: AA Signed Normal [facility] CNOVon 10-25-2023 CNOV Office Visit (CVAKPO ) CODY SANTANA ([id number]) 1985 F Date Time Provider Department 10/25/23 10:00 AM ELIZABETH MARQUES CVAKRICHARD During your visit today, we recorded the following information about you: Pulse Blood pressure Weight Height 85/minute 109/73 90.7 kg 1.6 m Elizabeth Marques MD 11/13/2023 2:34 PM Signed [facility] Initial Visit Consultation is requested by: Janet eFrnandez [address] [facility] [address] PCP: To use this Smartlink, specify the provider ID whose address you want to display, e.g., .PROVADDR[1 (where 1 is the provider ID). 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 As per the patient, stroke was suspected and was advised MRI brain as out patient. However, the MRI brain that was done two months later was negative for stroke. No recurrence of stroke symptoms. She was referred to the stroke clinic for further evaluation and management. Patient has not been adherent with the Eliquis Review of system: Mild snoring but no witnessed apnea. As per her sleep study came back negativeX1 miscarriage. No trauma or whiplash. She used to follow up with the chiropractic clinic and last visit was one wear ago Social history: Chronic tobacco smoker. No history of ETOH or drug abuse. She is single Medications: Eliquis Depo Provera hormonal injection for the last 9 years Stroke Event Information Do you have any planned upcoming surgeries or dental procedures? No RN completing documentation No past medical history on file. No past surgical history on file. No family history on file. Social History Tobacco Use Smoking status: Every Day Packs/day: 1.00 Years: 20.00 Additional pack years: 0.00 Total pack years: 20.00 Types: Cigarettes Start date: 12/17/2002 Smokeless tobacco: Never Vaping Use Vaping Use: Some days Substances: Nicotine Devices: Disposable Substance Use Topics Alcohol use: Not Currently Drug use: Not Currently MEDICATIONS Current Outpatient Medications Medication Sig erenumab-aooe (AIMOVIG AUTOINJECTOR) 70 mg/mL auto-injector Inject 1 mL subcutaneously once every month. rimegepant (NURTEC ODT) 75 mg disintegrating tablet Take 1 tablet by mouth every other day in the morning. ELIQUIS 5 mg tab(s) Take 1 tablet [...] montelukast (SINGULAIR) 10 mg tablet Take 1 tablet by mouth every afternoon. nystatin (MYCOSTATIN) powder APPLY POWDER TOPICALLY TWICE TO THREE TIMES DAILY TO GROIN AREA DIRECTED topiramate (TOPAMAX) 200 mg tablet haloperidol (HALDOL) 5 mg tablet Take 5 mg by mouth as needed (for anxiety). No current facility-administered medications for this visit. ALLERGIES ALLERGIES Allergen Reactions Keflex [Cephalexin] Other: See Comments Achy, weak Percocet [Oxycodone* Other: See Comments Nose itch PHYSICAL EXAMINATION BP 109/73 Pulse 85 Ht 160 cm (5' 3) Wt 90.7 kg (200 lb) BMI 35.43 kg/m? General: Overweight Well-developed, well-nourished, in no acute distress. HEENT: Normocephalic, atraumatic Extremities: No edema, cyanosis, or clubbing. No calf tenderness Skin: No rash or ecchymoses. Neurological: Awake, alert, oriented to person, place, and time. Speech fluent, no dysarthria. Naming, repetition, comprehension, intact. Good attention and insight into illness. Cranial Nerves: Extraocular movements intact without nystagmus. Visual bermudez full. Facial sensation and movements normal and symmetric. Tongue midline. Trapezius strength 5/5 bilaterally. Motor: Normal bulk and tone. Strength 5/5 throughout. No pronator drift or tremor. Sensation: Decreased to light touch on the left side Coordination: Rapid alternating movements symmetric bilaterally. [id number], without dysmetria bilaterally. Gait: Narrow-based, normal spaced and stable without assistance LABS Cholesterol: No results found for: CHOL No results found for: LDL No results found for: HDL No results found for: TG Diabetes: No results found for: HBA1C IMAGING MRI brain: mild bilateral white matter changes (more content not included)... Normal [facility] 10-25-2023 [facility] Telephone ([employer]) CODY SANTANA ([id number]) 1985 F Date Time Provider Department 10/25/23 ELIZABETH MARQUES [employer] During your visit today, we recorded the following information about you: Shanda Parikh 10/25/2023 10:57 AM Signed Submitted through portal Consult to Hematology/Oncology #[id number], to be scheduled in [facility] CindiShanda jimenez 10/30/2023 11:37 AM Signed Received through portal Consult to Hematology/Oncology #[id number], patient has been scheduled 11/14/23 with Paty Arciniega in the [facility] Allergies As of Date: 10/25/2023 Noted Allergy Reaction KEFLEX (CEPHALEXIN) 09/14/2023 14 - Other: See Comments Comments: Zulmay, weak PERCOCET (OXYCODONE-ACETAMINOPHE N)09/14/2023 14 - Other: See Comments Comments: Nose itch Date Reviewed: 10/25/2023 Reviewed by: Kirstin Redd MA - Fully Assessed Reason for Visit: Consult [502] Prescriptions as of 10/30/2023 - erenumab-aooe (AIMOVIG AUTOINJECTOR) 70 mg/mL auto-injector Inject 1 mL subcutaneously once every month. - rimegepant (NURTEC ODT) 75 mg disintegrating tablet Take 1 tablet by mouth every other day in the morning. - ELIQUIS 5 mg tab(s) Take 1 tablet by mouth every 12 hours. - cetirizine (ZYRTEC) 10 mg tablet - cholecalciferol (VITAMIN D3) 1,000 unit tab tablet Take 2 tablets by mouth every afternoon. - citalopram (CELEXA) 40 mg tablet Take 1 tablet by mouth every afternoon. - famotidine (PEPCID) 40 mg tablet TAKE 1 TABLET BY MOUTH TWICE DAILY WITH SUPPER AND AT BEDTIME - lamoTRIgine (LAMICTAL) 200 mg tablet TAKE 1 TABLET BY MOUTH ONCE DAILY IN THE MORNING - montelukast (SINGULAIR) 10 mg tablet Take 1 tablet by mouth every afternoon. - nystatin (MYCOSTATIN) powder APPLY POWDER TOPICALLY TWICE TO THREE TIMES DAILY TO GROIN AREA DIRECTED - topiramate (TOPAMAX) 200 mg tablet - haloperidol (HALDOL) 5 mg tablet Take 5 mg by mouth as needed (for anxiety). Problem List As Of Date: 10/25/2023 (None) Encounter Status:Closed by SHANDA PARIKH on 10/25/23 Normal [facility] Absolute lymphocyte countOrd ered By: Bridgett Ponce on 08-30-2023 Lymphocytes Auto (Unsp spec) [#/Vol] 2.48 10*3/uL 0.83-4.51 [facility] Automated lymphocyte count a s percentage of total leukocytesOrdered By: Bridgett Ponce on 08-30-2023 Lymphocytes/100 WBC Auto (Unsp spec) 44.5 % 19-41 [facility] Basophil percentageOrdered B y: Bridgett Ponce on 08-30-2023 Basophils/100 WBC (Bld) 0.7 % 0-1 [facility] Bilirubin [Mass/Vol] 0.30 mg/dL 0.20-1.00 [facility] Comment on above: For patients on eltr ombopag therapy, use of Dimension [place] TBIL is not recommended. Chloride [Moles/Vol] 118 mmol/L 98-107 [facility] Eosinophils/100 WBC (Bld) 3.6 % 0-5 [facility] Glucose [Mass/Vol] 111 mg/dL 74-106 [facility] Comment on above: Fasting Glucose resu lt from 100 to 125 mg/dL suggests IMPAIRED HOMEOSTASIS per A.D.A. criteria. Hemoglobin (Bld) [Mass/Vol] 11.5 g/dL 12.0-15.0 [facility] Monocytes/100 WBC (Bld) 8.1 % 0-10 [facility] Neutrophils (Bld) [#/Vol] 2.4 10*3/uL 2.0-7.7 [facility] Neutrophils/100 WBC (Bld) 42.9 % 47-70 [facility] Potassium [Moles/Vol] 3.4 mmol/L 3.5-5.1 [facility] Protein [Mass/Vol] 6.4 g/dL 6.4-8.2 [facility] Sodium [Moles/Vol] 143 mmol/L 136-145 [facility] WBC (Bld) [#/Vol] 5.6 10*3/uL 4.4-11.0 [facility] Determination of erythrocyte mean corpuscular volume (MCV)Ordered By: Bridgett Ponce on 08-30-2023 MCV (RBC) [Entitic vol] 93.3 fL 81-99 [facility] Erythrocyte distribution wid th ratioOrdered By: [facility] Rosario on 08-30-2023 Erythrocyte distribution width (RBC) [Ratio] 13.4 % 11.6-14.6 [facility] Erythrocyte distribution wid th standard deviationOrdered By: Bridgett Rosario on 08-30-2023 Erythrocyte distribution width (RBC) [Entitic vol] 46.0 fL 35.1-43.9 [facility] Hematocrit Auto (Bld) [Volum e fraction]Ordered By: Bridgett Rosario on 08-30-2023 Hematocrit (Bld) [Volume fraction] 34.8 % 37-47 [facility] Immature granulocytes/100 WB C Auto (Bld)Ordered By: Bridgett Ponce on 08-30-2023 Immature granulocytes/100 WBC (Bld) 0.200 % 0.0-0.9 [facility] Comment on above: IG% - Immature Granu locytes (promyelocytes, myelocytes and metamyelocytes) > 1% indicates that a LEFT SHIFT is Present. Laboratory - Chemistry and C hemistry - challengeOrdered By: Bridgett Ponce on 08-30-2023 Albumin/Globulin [Mass ratio] 0.9 {ratio} 0.9-2.4 [facility] ALP [Catalytic activity/Vol] 51 U/L 45-117 [facility] ALT [Catalytic activity/Vol] 18 U/L 13-56 [facility] CO2 [Moles/Vol] 18.0 mmol/L 21.0-32.0 [facility] Globulin (S) [Mass/Vol] 3.3 g/dL 2.2-4.2 [facility] Urea nitrogen/Creatinine [Mass ratio] 10.2 mg/mg 10-20 [facility] Laboratory - Hematology and Cell countsOrdered By: Bridgett Ponce on 08-30-2023 MCH (RBC) [Entitic mass] 30.8 pg 27.0-32.0 [facility] MCHC (RBC) [Mass/Vol] 33.0 g/dL 32-36 [facility] Nucleated RBC/100 WBC (Bld) [Ratio] 0 % 0-5 [facility] Platelet mean volume (Bld) [Entitic vol] 9.9 fL 6.2-12.0 [facility] Platelets (Bld) [#/Vol] 180 10*3/uL 150-450 [facility] No Panel InformationOrdered By: Bridgett Ponce on 08-30-2023 Estimated Creatinine Clearance Calc 94.09 ml/min [facility] Estimated GFR (MDRD) Amer 93 mL/min >60 [facility] Comment on above: GFR Calc Estimated GFR (MDRD) Non-Af Amer 77 mL/min >60 [facility] Comment on above: Non- GFR Calc RBC Auto (Bld) [#/Vol]Ordere d By: Bridgett Ponce on 08-30-2023 RBC (Bld) [#/Vol] 3.73 10*6/uL 4.2-5.4 [facility] Serum or plasma calcium mykel urement (mass/volume)Ordered By: Bridgett Ponce on 08-30-2023 Calcium [Mass/Vol] 8.7 mg/dL 8.5-10.1 [facility] Serum or plasma creatinine m easurement (mass/volume)Ordered By: Bridgett Ponce on 08-30-2023 Creatinine [Mass/Vol] 0.88 mg/dL 0.55-1.02 [facility] Comment on above: The validity of the calculated GFR & GFRAA in patients over 70 years has not been determined. Clinical correlation is essential. Serum or plasma thyroid stim ulating hormone (TSH) measurement (units/volume)Ordered By: Bridgett Ponce on 08-30-2023 TSH Qn 1.17 uIU/mL 0.358-3.74 [facility] Serum or plasma urea nitroge n measurement (mass/volume)Ordered By: Bridgett Ponce on 08-30-2023 Urea nitrogen [Mass/Vol] 9 mg/dL 7-18 [facility] Thin prep Papanicolaou smear with manual screeningOrdered By: [facility] Rosario on 08-30-2023 Thin prep Papanicolaou smear with manual screening 3.1 g/dL 3.2-5.0 [facility] Thin prep Papanicolaou smear with manual screening 18 U/L 15-37 [facility] Thin prep Papanicolaou smear with manual screening 7 5-15 [facility] Whole blood hemoglobin A1c/t otal hemoglobin ratio (mass fraction)Ordered By: Bridgett Ponce on 08-30-2023 HbA1c (Bld) [Mass fraction] 5.1 % 3.8-5.6 [facility] Comment on above: Normal < 5.7 % Predi abetic 5.7 - 6.4 % Diabetic >or= 6.5 % Please note range changes. Absolute lymphocyte countOrd ered By: Axel Kaur on 08-29-2023 Lymphocytes Auto (Unsp spec) [#/Vol] 3.10 10*3/uL 0.83-4.51 [facility] Activated partial thrombopla stin time (aPTT) in platelet poor plasma by coagulation aOrdered By: Axel Kaur on 08-29-2023 aPTT Coag (PPP) [Time] 31.1 s 24.1-36.2 [facility] Automated lymphocyte count a s percentage of total leukocytesOrdered By: Axel Kaur on 08-29-2023 Lymphocytes/100 WBC Auto (Unsp spec) 42.1 % 19-41 [facility] Basophil percentageOrdered B y: Axel Kaur on 08-29-2023 Basophils/100 WBC (Bld) 0.8 % 0-1 [facility] Chloride [Moles/Vol] 113 mmol/L 98-107 [facility] Eosinophils/100 WBC (Bld) 1.9 % 0-5 [facility] Glucose [Mass/Vol] 92 mg/dL 74-106 [facility] Hemoglobin (Bld) [Mass/Vol] 11.9 g/dL 12.0-15.0 [facility] Monocytes/100 WBC (Bld) 5.7 % 0-10 [facility] Neutrophils (Bld) [#/Vol] 3.6 10*3/uL 2.0-7.7 [facility] Neutrophils/100 WBC (Bld) 49.4 % 47-70 [facility] Potassium [Moles/Vol] 3.4 mmol/L 3.5-5.1 [facility] Sodium [Moles/Vol] 142 mmol/L 136-145 [facility] WBC (Bld) [#/Vol] 7.4 10*3/uL 4.4-11.0 [facility] Determination of erythrocyte mean corpuscular volume (MCV)Ordered By: Axel Kaur on 08-29-2023 MCV (RBC) [Entitic vol] 93.6 fL 81-99 [facility] Erythrocyte distribution wid th ratioOrdered By: Axeldonovan Kaur on 08-29-2023 Erythrocyte distribution width (RBC) [Ratio] 13.3 % 11.6-14.6 [facility] Erythrocyte distribution wid th standard deviationOrdered By: Axeldonovan Kaur on 08-29-2023 Erythrocyte distribution width (RBC) [Entitic vol] 45.8 fL 35.1-43.9 [facility] Hematocrit Auto (Bld) [Volum e fraction]Ordered By: Axel Kaur on 08-29-2023 Hematocrit (Bld) [Volume fraction] 36.4 % 37-47 [facility] Immature granulocytes/100 WB C Auto (Bld)Ordered By: Axel Kaur on 08-29-2023 Immature granulocytes/100 WBC (Bld) 0.100 % 0.0-0.9 [facility] Comment on above: IG% - Immature Granu locytes (promyelocytes, myelocytes and metamyelocytes) > 1% indicates that a LEFT SHIFT is Present. Laboratory - Chemistry and C hemistry - challengeOrdered By: Bridgett White on 08-29-2023 Magnesium [Mass/Vol] 2.1 mg/dL 1.6-2.6 [facility] Laboratory - Chemistry and C hemistry - challengeOrdered By: Axel Kaur on 08-29-2023 CO2 [Moles/Vol] 23.0 mmol/L 21.0-32.0 [facility] Urea nitrogen/Creatinine [Mass ratio] 9.6 mg/mg 10-20 [facility] Laboratory - CoagulationOrde red By: Axel Kaur on 08-29-2023 INR Coag (Bld) [Relative time] 1.2 {INR} [facility] PT Coag (PPP) [Time] 15.2 s 11.7-14.9 [facility] Laboratory - Hematology and Cell countsOrdered By: Axeldonovan Kaur on 08-29-2023 MCH (RBC) [Entitic mass] 30.6 pg 27.0-32.0 [facility] MCHC (RBC) [Mass/Vol] 32.7 g/dL 32-36 [facility] Nucleated RBC/100 WBC (Bld) [Ratio] 0 % 0-5 [facility] Platelet mean volume (Bld) [Entitic vol] 9.7 fL 6.2-12.0 [facility] Platelets (Bld) [#/Vol] 192 10*3/uL 150-450 [facility] No Panel InformationOrdered By: Axeldonovan Kaur on 08-29-2023 Troponin I High Sensitivity 6 pg/mL 3.0-54.0 [facility] Comment on above: Please Note: [place] t Units and Gender Specific Reference Ranges. For more information see Policy Stat Procedure [place] High Sensitivity Troponin (TNIH) and attachments. Estimated Creatinine Clearance Calc 86.66 ml/min [facility] Estimated GFR (MDRD) Amer 87 mL/min >60 [facility] Comment on above: GFR Calc Estimated GFR (MDRD) Non-Af Amer 72 mL/min >60 [facility] Comment on above: Non- GFR Calc No Panel InformationOrdered By: Bridgett Ponce on 08-29-2023 Ethyl Alcohol Level < 3.0 mg/dL [facility] Comment on above: The serum:whole bloo d ethanol ratio is approximately 1.14and varies slightly with hematocrit. Medical Alcohol reference interval and critical value innon-tolerant individuals; 50 - 100 Impairment 100 Intoxication 100 - 250 Severe Poisoning 250 - 400 Deep/possible fatal coma RBC Auto (Bld) [#/Vol]Ordere d By: Axel Kaur on 08-29-2023 RBC (Bld) [#/Vol] 3.89 10*6/uL 4.2-5.4 [facility] Serum or plasma calcium mykel urement (mass/volume)Ordered By: Axel Kaur on 08-29-2023 Calcium [Mass/Vol] 9.0 mg/dL 8.5-10.1 [facility] Serum or plasma creatinine m easurement (mass/volume)Ordered By: Axel [facility] on 08-29-2023 Creatinine [Mass/Vol] 0.94 mg/dL 0.55-1.02 [facility] Comment on above: The validity of the calculated GFR & GFRAA in patients over 70 years has not been determined. Clinical correlation is essential. Serum or plasma urea nitroge n measurement (mass/volume)Ordered By: [facility] on 08-29-2023 Urea nitrogen [Mass/Vol] 9 mg/dL 7-18 [facility] Thin prep Papanicolaou smear with manual screeningOrdered By: Axel Kaur on 08-29-2023 Thin prep Papanicolaou smear with manual screening 6 5-15 [facility] Laboratory - Microbiology an d Antimicrobial susceptibilityon 05-22-2023 S. 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 MQ: [id number] Contrast: 20 mL Dotarem IV COMPARISON: None. RESULT: Acute Change: There is no evidence of restricted diffusion to suggest an acute infarct. Mass Lesion/ Mass Effect: No evidence of an intracranial mass or extra-axial fluid collection. No abnormal parenchymal or leptomeningeal enhancement is noted following contrast administration. No significant mass effect. Chronic Change: There are scattered T2/FLAIR hyperintensities in the white matter, both the subcortical and periventricular white matter. However, no involvement of the corpus callosum or callosal septal interface, and no infratentorial lesions. Parenchyma: No significant volume loss for age. The brain parenchyma is otherwise within normal limits of signal intensity and morphology. Specifically, the brainstem is normal in appearance. There is no evidence of a mass in the region of either IAC or elsewhere in the posterior fossa. No abnormal enhancement is noted in the basilar cisterns, along the course of the 7/8 cranial nerve complexes, or in the region of the inner ear complexes. No abnormal parenchymal or leptomeningeal enhancement is noted following gadolinium administration. Inner ear structures appear to be within normal limits on the high resolution axial T2 SPACE sequence. Ventricles: Normal caliber and morphology. Skull Base: Hypothalamic and pituitary region are grossly normal. Craniocervical junction is normal. No significant marrow replacement process. Vasculature: Major intracranial arterial structures, and dural venous sinuses show typical flow void, suggesting patency by spin echo criteria. Other: The visualized paranasal sinuses and mastoid air cells are clear. The orbits and extracranial soft tissues are unremarkable. IMPRESSION: Scattered T2/FLAIR hyperintensities in the white matter, both the subcortical and periventricular white matter, which are nonspecific but may be due to mild chronic microvascular change/remote insult/sequela of migraines. No involvement of the corpus callosum or callosal septal interface, and no infratentorial lesions to indicate demyelination by imaging. However, consider correlation with clinical parameters. Otherwise, unremarkable MRI of the brain. Normal appearance of the bilateral seventh/8th nerve complexes and inner ear complexes, without abnormal enhancement.. Transcribed Using Voice Recognition Transcribe Date/Time: May 16 2023 5:02P Dictated by: CRISSY HARDEN MD This examination was interpreted and the report reviewed and electronically signed by: CRISSY HARDEN MD on May 16 2023 5:10PM EST [id number] Normal [facility] No Panel Informationon 04-25 POC SARS CoV-2 Antigen Negative [facility] Absolute lymphocyte countOrd ered By: Bridgett Ponce on 03-16-2023 Lymphocytes Auto (Unsp spec) [#/Vol] 3.21 10*3/uL 0.83-4.51 [facility] Basophil percentageOrdered B y: Bridgett Ponce on 03-16-2023 Basophils/100 WBC (Bld) 0.6 % 0-1 [facility] Bilirubin [Mass/Vol] 0.30 mg/dL 0.20-1.00 [facility] Comment on above: For patients on eltr ombopag therapy, use of Dimension [place] TBIL is not recommended. Chloride [Moles/Vol] 116 mmol/L 98-107 [facility] Cholesterol [Mass/Vol] 134 mg/dL <200 [facility] Comment on above: <200 mg/dL Desirable 200-240 mg/dL Borderline >240 mg/dL High Risk Eosinophils/100 WBC (Bld) 2.4 % 0-5 [facility] Glucose [Mass/Vol] 89 mg/dL 74-106 [facility] Neutrophils (Bld) [#/Vol] 2.2 10*3/uL 2.0-7.7 [facility] Neutrophils/100 WBC (Bld) 36.4 % 47-70 [facility] Potassium [Moles/Vol] 3.2 mmol/L 3.5-5.1 [facility] Protein [Mass/Vol] 6.9 g/dL 6.4-8.2 [facility] Sodium [Moles/Vol] 142 mmol/L 136-145 [facility] Triglyceride [Mass/Vol] 59 mg/dL <199 [facility] Comment on above: The drugs N-Acetylcy steine and Metamizole may falsely depress this assay.Serum Triglycerides Reference Interval Normal <150 mg/dL Borderline high 150 - 199 mg/dL High 200 - 499 mg/dL Very High > or = 500 mg/dL WBC (Bld) [#/Vol] 6.2 10*3/uL 4.4-11.0 [facility] Blood erythrocytes count (nu mber/volume)Ordered By: Bridgett Ponce on 03-16-2023 RBC (Bld) [#/Vol] 3.61 10*6/uL 4.2-5.4 [facility] Blood hemoglobin measurement (mass/volume)Ordered By: Bridgett Ponce on 03-16-2023 Hemoglobin (Bld) [Mass/Vol] 11.1 g/dL 12.0-15.0 [facility] Blood lymphocytes/100 leukoc ytesOrdered By: Bridgett Ponce on 03-16-2023 Lymphocytes/100 WBC (Bld) 52.0 % 19-41 [facility] Blood monocytes/100 leukocyt esOrdered By: Bridgett Rosario on 03-16-2023 Monocytes/100 WBC (Bld) 8.4 % 0-10 [facility] Blood platelet mean volumeOr dered By: Bridgett Ponce on 03-16-2023 Platelet mean volume (Bld) [Entitic vol] 10.3 fL 6.2-12.0 [facility] Determination of erythrocyte mean corpuscular volume (MCV)Ordered By: Bridgett Ponce on 03-16-2023 MCV (RBC) [Entitic vol] 94.7 fL 81-99 [facility] Hematocrit Auto (Bld) [Volum e fraction]Ordered By: Bridgett Ponce on 03-16-2023 Hematocrit (Bld) [Volume fraction] 34.2 % 37-47 [facility] Laboratory - Chemistry and C hemistry - challengeOrdered By: Bridgett Ponce on 03-16-2023 ALP [Catalytic activity/Vol] 54 U/L 45-117 [facility] ALT [Catalytic activity/Vol] 18 U/L 13-56 [facility] CO2 [Moles/Vol] 21.0 mmol/L 21.0-32.0 [facility] Globulin (S) [Mass/Vol] 3.6 g/dL 2.2-4.2 [facility] Urea nitrogen/Creatinine [Mass ratio] 17.3 mg/mg 10-20 [facility] Laboratory - Hematology and Cell countsOrdered By: Bridgett Rosario on 03-16-2023 Erythrocyte distribution width (RBC) [Entitic vol] 49.1 fL 35.1-43.9 [facility] Erythrocyte distribution width (RBC) [Ratio] 14.0 % 11.6-14.6 [facility] Immature granulocytes/100 WBC (Bld) 0.200 % 0.0-0.9 [facility] Comment on above: IG% - Immature Granu locytes (promyelocytes, myelocytes and metamyelocytes) > 1% indicates that a LEFT SHIFT is Present. MCH (RBC) [Entitic mass] 30.7 pg 27.0-32.0 [facility] Nucleated RBC/100 WBC (Bld) [Ratio] 0 % 0-5 [facility] MCHC Auto (RBC) [Mass/Vol]Or dered By: Bridgett Ponce on 03-16-2023 MCHC (RBC) [Mass/Vol] 32.5 g/dL 32-36 [facility] No Panel InformationOrdered By: Bridgett Ponce on 03-16-2023 Estimated Creatinine Clearance Calc 79.43 ml/min [facility] Estimated GFR (MDRD) Amer 103 mL/min >60 [facility] Comment on above: GFR Calc Estimated GFR (MDRD) Non-Af Amer 85 mL/min >60 [facility] Comment on above: Non- GFR Calc Thyroid Stimulating Hormone (TSH) 0.92 uIU/mL 0.358-3.74 [facility] Platelets bldOrdered By: Breanna Ponce on 03-16-2023 Platelets (Bld) [#/Vol] 180 10*3/uL 150-450 [facility] Serum or plasma albumin mykel urement (mass/volume)Ordered By: Bridgett Ponce on 03-16-2023 Albumin [Mass/Vol] 3.3 g/dL 3.2-5.0 [facility] Serum or plasma albumin/glob ulin mass ratioOrdered By: Bridgett Ponce on 03-16-2023 Albumin/Globulin [Mass ratio] 0.9 {ratio} 0.9-2.4 [facility] Serum or plasma calcium mykel urement (mass/volume)Ordered By: Bridgett Ponce on 03-16-2023 Calcium [Mass/Vol] 8.3 mg/dL 8.5-10.1 [facility] Serum or plasma cholesterol in HDL measurement (mass/volume)Ordered By: Bridgett Ponce on 03-16-2023 Cholesterol in HDL [Mass/Vol] 33 mg/dL >40 [facility] Comment on above: The drugs N-Acetylcy steine and Metamizole may falsely depress this assay. Reference Range HDL <40 mg/dL Low HDL Cholesterol HDL >or= 60 mg/dL High HDL Cholesterol Serum or plasma cholesterol in VLDL measurement (mass/volume)Ordered By: Bridgett Ponce on 03-16-2023 Cholesterol in VLDL [Mass/Vol] 12 mg/dL 5-40 [facility] Serum or plasma creatinine m easurement (mass/volume)Ordered By: Bridgett Ponce on 03-16-2023 Creatinine [Mass/Vol] 0.81 mg/dL 0.55-1.02 [facility] Comment on above: The validity of the calculated GFR & GFRAA in patients over 70 years has not been determined. Clinical correlation is essential. Serum or plasma low density lipoprotein (LDL) cholesterol measurement (mass/volume)Ordered By: Bridgett Ponce on 03-16-2023 Cholesterol in LDL [Mass/Vol] 89 mg/dL 0-130 [facility] Serum or plasma urea nitroge n measurement (mass/volume)Ordered By: Bridgett Ponce on 03-16-2023 Urea nitrogen [Mass/Vol] 14 mg/dL 7-18 [facility] Thin prep Papanicolaou smear with manual screeningOrdered By: [facility] Rosario on 03-16-2023 Thin prep Papanicolaou smear with manual screening 10 U/L 15-37 [facility] Thin prep Papanicolaou smear with manual screening 5 5-15 [facility] Whole blood hemoglobin A1c/t otal hemoglobin ratio (mass fraction)Ordered By: Bridgett Ponce on 03-16-2023 HbA1c (Bld) [Mass fraction] 5.2 % 3.8-5.6 [facility] Comment on above: Normal < 5.7 % Predi abetic 5.7 - 6.4 % Diabetic >or= 6.5 % Please note range changes. Absolute lymphocyte countOrd ered By: Jeremy Gerard on 03-15-2023 Lymphocytes Auto (Unsp spec) [#/Vol] 2.26 10*3/uL 0.83-4.51 [facility] Basophil percentageOrdered B y: Jeremy Gerard on 03-15-2023 Basophil percentage 0-5 SEEN /hpf 0-5 [facility] Basophils/100 WBC (Bld) 0.6 % 0-1 [facility] Chloride [Moles/Vol] 112 mmol/L 98-107 [facility] Eosinophils/100 WBC (Bld) 0.9 % 0-5 [facility] Glucose [Mass/Vol] 106 mg/dL 74-106 [facility] Comment on above: Fasting Glucose resu lt from 100 to 125 mg/dL suggests IMPAIRED HOMEOSTASIS per A.D.A. criteria. Neutrophils (Bld) [#/Vol] 4.1 10*3/uL 2.0-7.7 [facility] Neutrophils/100 WBC (Bld) 59.0 % 47-70 [facility] Potassium [Moles/Vol] 3.0 mmol/L 3.5-5.1 [facility] Sodium [Moles/Vol] 140 mmol/L 136-145 [facility] WBC (Bld) [#/Vol] 6.9 10*3/uL 4.4-11.0 [facility] Bilirubin Test strip Ql (U)O rdered By: Jeremy Gerard on 03-15-2023 Bilirubin Ql (U) Negative Negative [facility] Blood erythrocytes count (nu mber/volume)Ordered By: Jeremy Gerard on 03-15-2023 RBC (Bld) [#/Vol] 3.98 10*6/uL 4.2-5.4 [facility] Blood hemoglobin measurement (mass/volume)Ordered By: Jeremy Gerard on 03-15-2023 Hemoglobin (Bld) [Mass/Vol] 12.3 g/dL 12.0-15.0 [facility] Blood lymphocytes/100 leukoc ytesOrdered By: Jeremy Gerard on 03-15-2023 Lymphocytes/100 WBC (Bld) 32.9 % 19-41 [facility] Blood monocytes/100 leukocyt esOrdered By: Jeremy Gerard on 03-15-2023 Monocytes/100 WBC (Bld) 6.3 % 0-10 [facility] Blood platelet mean volumeOr dered By: Jeremy Gerard on 03-15-2023 Platelet mean volume (Bld) [Entitic vol] 10.2 fL 6.2-12.0 [facility] Culture, urineOrdered By: Sanya Gerard on 03-15-2023 Bacteria identified Cx Nom (U) Positive [facility] Determination of erythrocyte mean corpuscular volume (MCV)Ordered By: Jeremy Gerard on 03-15-2023 MCV (RBC) [Entitic vol] 94.5 fL 81-99 [facility] Hematocrit Auto (Bld) [Volum e fraction]Ordered By: Jeremy Gerard on 03-15-2023 Hematocrit (Bld) [Volume fraction] 37.6 % 37-47 [facility] INR in Blood by Coagulation assayOrdered By: Jeremy Gerard on 03-15-2023 INR Coag (Bld) [Relative time] 1.2 {INR} [facility] Ketones Test strip Ql (U)Ord ered By: Jeremy Gerard on 03-15-2023 Ketones Ql (U) Negative Negative [facility] Laboratory - Chemistry and C hemistry - challengeOrdered By: Jeremy Gerard on 03-15-2023 CO2 [Moles/Vol] 23.0 mmol/L 21.0-32.0 [facility] Urea nitrogen/Creatinine [Mass ratio] 11.4 mg/mg 10- [facility] Laboratory - Chemistry and C hemistry - challengeOrdered By: Bridgett Ponce on 03-15-2023 Magnesium [Mass/Vol] 2.3 mg/dL 1.6-2.6 [facility] Laboratory - CoagulationOrde red By: Jeremy Gerard on 03-15-2023 aPTT Coag (Bld) [Time] 33.7 s 24.1-36.2 [facility] PT Coag (PPP) [Time] 15.5 s 11.7-14.9 [facility] Laboratory - Drug toxicology Ordered By: Jeremy Gerard on 03-15-2023 Amphetamines Ql (U) Negative <1000 ng/mL [facility] Benzodiazepines Ql (U) Negative < 200 ng/mL [facility] Cannabinoids Screen Ql (U) Negative < 50 ng/mL [facility] Cocaine Ql (U) Negative < 300 ng/mL [facility] Opiates Ql (U) Negative < 300 ng/mL [facility] Laboratory - Hematology and Cell countsOrdered By: Jeremy Gerard on 03-15-2023 Erythrocyte distribution width (RBC) [Entitic vol] 47.6 fL 35.1-43.9 [facility] Erythrocyte distribution width (RBC) [Ratio] 13.7 % 11.6-14.6 [facility] Immature granulocytes/100 WBC (Bld) 0.300 % 0.0-0.9 [facility] Comment on above: IG% - Immature Granu locytes (promyelocytes, myelocytes and metamyelocytes) > 1% indicates that a LEFT SHIFT is Present. MCH (RBC) [Entitic mass] 30.9 pg 27.0-32.0 [facility] Nucleated RBC/100 WBC (Bld) [Ratio] 0 % 0-5 [facility] MCHC Auto (RBC) [Mass/Vol]Or dered By: Jeremy Gerard on 03-15-2023 MCHC (RBC) [Mass/Vol] 32.7 g/dL 32-36 [facility] Mucus LM Ql (Urine sed)Order ed By: Jeremy Gerard on 03-15-2023 Mucus Ql (Urine sed) 0 SEEN /hpf [facility] Nitrite Test strip Ql (U)Ord ered By: Jeremy Gerard on 03-15-2023 Nitrite Ql (U) Negative Negative [facility] No Panel InformationOrdered By: Jeremy Gerard on 03-15-2023 Ethyl Alcohol Level < 3.0 mg/dL [facility] Comment on above: The serum:whole bloo d ethanol ratio is approximately 1.14and varies slightly with hematocrit. Medical Alcohol reference interval and critical value innon-tolerant individuals; 50 - 100 Impairment 100 Intoxication 100 - 250 Severe Poisoning 250 - 400 Deep/possible fatal coma MDMA (Ecstasy) Screen Negative < 500 ng/mL [facility] Urine Barbiturates Screen Negative < 200 ng/mL [facility] Urine Drug Screen Comment [facility] Comment on above: CONFIRMATORY TESTING FOR ALL POSITIVE URINE DRUG SCREENRESULTS WILL ONLY BE SENT OUT UPON PHYSICIAN ORDER. VISTA Urine Drug Screen methods provide only preliminaryanalytical test results. A more specific alternate chemicalmethod must be used in order to obtain a confirmedanalytical result. Gas chromatography/mass spectrometery(GC/MS) is the preferred confirmatory method. Clinicalconsideration and professional judgement should be appliedto any drug of abuse test result, particularly whenpreliminary positive results are used. URINE TCA TESTING MUST BE ORDERED SEPARATELY. USE TESTMNEMONIC: [facility] Urine Methadone Screen Negative < 300 ng/mL [facility] Estimated Creatinine Clearance Calc 73.11 ml/min [facility] Estimated GFR (MDRD) Amer 94 mL/min >60 [facility] Comment on above: GFR Calc Estimated GFR (MDRD) Non-Af Amer 77 mL/min >60 [facility] Comment on above: Non- GFR Calc Troponin I High Sensitivity 6 pg/mL 3.0-54.0 [facility] Comment on above: Please Note: [place] t Units and Gender Specific Reference Ranges. For more information see Policy Stat Procedure [place] High Sensitivity Troponin (TNIH) and attachments. Platelets bldOrdered By: Edis Gerard on 03-15-2023 Platelets (Bld) [#/Vol] 192 10*3/uL 150-450 [facility] Protein Test strip Ql (U)Ord ered By: Jeremy Gerard on 03-15-2023 Protein Ql (U) Negative Negative [facility] Serum or plasma calcium mykel urement (mass/volume)Ordered By: Jeremy Gerard on 03-15-2023 Calcium [Mass/Vol] 9.4 mg/dL 8.5-10.1 [facility] Serum or plasma creatinine m easurement (mass/volume)Ordered By: Jeremy Gerard on 03-15-2023 Creatinine [Mass/Vol] 0.88 mg/dL 0.55-1.02 [facility] Comment on above: The validity of the calculated GFR & GFRAA in patients over 70 years has not been determined. Clinical correlation is essential. Serum or plasma lamotrigine measurement (mass/volume)Ordered By: Bridgett Ponce on 03-15-2023 lamoTRIgine [Mass/Vol] 3.0 ug/mL 2.0-20.0 [facility] Comment on above: Detection Limit = 1. 0Performed at: [facility] - [facility] [id number] Director: Raul Arboleda MD, Phone: [phone] Serum or plasma urea nitroge n measurement (mass/volume)Ordered By: Jeremy Gerard on 03-15-2023 Urea nitrogen [Mass/Vol] 10 mg/dL 7-18 [facility] Squamous epithelial cells de tection in urine sediment by light microscopyOrdered By: Jeremy Gerard on 03-15-2023 Epithelial cells.squamous LM Ql (Urine sed) 5-10 SEEN /hpf 5-10 [facility] Thin prep Papanicolaou smear with manual screeningOrdered By: Jeremy Gerard on 03-15-2023 Thin prep Papanicolaou smear with manual screening 5 5-15 [facility] Urine blood detectionOrdered By: Jeremy Gerard on 03-15-2023 RBC Ql (U) Negative Negative [facility] RBC Ql (U) 0 SEEN /hpf 0-5 [facility] Urine clarityOrdered By: Edis Gerard on 03-15-2023 Clarity (U) Clear Clear [facility] Urine color determinationOrd ered By: Jeremy Gerard on 03-15-2023 Color (U) Yellow Yellow [facility] Urine glucose detectionOrder ed By: Jeremy Gerard on 03-15-2023 Glucose Ql (U) Normal mg/dl Normal [facility] Urine leukocyte esterase det ection by dipstickOrdered By: Jeremy Gerard on 03-15-2023 Leukocyte esterase Test strip Ql (U) 100 /ul Negative [facility] Urine pHOrdered By: Jeremy Gerard on 03-15-2023 pH (U) 7.0 [pH] 5.0 - 8.0 [facility] Urine phencyclidine (PCP) de tectionOrdered By: Jeremy Gerard on 03-15-2023 Phencyclidine Ql (U) Negative < 25 ng/mL [facility] Urine sediment bacteria coun t by microscopy (number/high power field)Ordered By: Jeremy Gerard on 03-15-2023 Bacteria LM.HPF (Urine sed) [#/Area] 0 /[HPF] None Seen [facility] Urine specific gravity measu rementOrdered By: Jeremy Gerard on 03-15-2023 Specific gravity (U) [Rel density] 1.010 1.002-1.030 [facility] Urobilinogen Auto test strip Ql (U)Ordered By: Jeremy Gerard on 03-15-2023 Urobilinogen Ql (U) Normal mg/dl Normal [facility] .Auto Diffon 12-08-2022 Basophil, Absolute 0.0 10 3/mcL Normal 0.0-0.2 [facility] ([place]) Comment on above: Performed By: #### C SHE, ADIFF, ANEU #### [address] [address] Basophils/100 WBC (Bld) 0.3 % Normal 0.0-2.5 [facility] ([place]) Comment on above: Performed By: #### C SHE, ADIFF, ANEU #### [address] [address] Eosinophil, Absolute 0.0 10 3/mcL Normal 0.0-0.4 [facility] ([place]) Comment on above: Performed By: #### C SHE, ADIFF, ANEU #### [address] [address] Eosinophils/100 WBC (Bld) 0.2 % Normal 0.0-7.0 [facility] ([place]) Comment on above: Performed By: #### C SHE ADIFF, ANEU #### [address] [address] Lymphocyte, Absolute 1.5 10 3/mcL Normal 0.8-3.9 [facility] ([place]) Comment on above: Performed By: #### C KAELA NOWAKIFF, ANEU #### [address] [address] Lymphocytes/100 WBC (Bld) 16.6 % Normal 10.0-50.0 [facility] ([place]) Comment on above: Performed By: #### C SHE, ADIFF, ANEU #### [address] [address] Monocyte, Absolute 0.7 10 3/mcL Normal 0.2-1.0 [facility] ([place]) Comment on above: Performed By: #### C SHE ADIFF, ANEU #### [address] [address] Monocytes/100 WBC (Bld) 7.3 % Normal 1.7-13.0 [facility] ([place]) Comment on above: Performed By: #### C SHE ADVINCENT, ANEU #### [address] [address] Neutrophils/100 WBC (Bld) 75.6 % Normal 37.0-80.0 [facility] ([place]) Comment on above: Performed By: #### C CONSUELO NOWAK ANEU #### [address] [address] .GFRon 12-08-2022 GFR 84 ml/min/1.73sqm Normal [facility] ([place]) Comment on above: Result Comment: GFR Population mean for , Non- Americans Ages 20-29 = 116 mL/min/1.73 sq.m. Ages 30-39 = 107 mL/min/1.73 sq.m. Ages 40-49 = 99 mL/min/1.73 sq.m. Ages 50-59 = 93 mL/min/1.73 sq.m. Ages 60-69 = 85 mL/min/1.73 sq.m. Ages 70+ = 75 mL/min/1.73 sq.m. Chronic Kidney Disease: Less than 60 mL/min/1.73 square meters End Stage Renal Disease: Less than 15 mL/min/1.73 square meters Performed By: #### G FR, BMP #### [address] [address] GFR Non- 69 ml/min/1.73sqm Normal [facility] ([place]) Comment on above: Result Comment: GFR Population mean for , Non- Americans Ages 20-29 = 116 mL/min/1.73 sq.m. Ages 30-39 = 107 mL/min/1.73 sq.m. Ages 40-49 = 99 mL/min/1.73 sq.m. Ages 50-59 = 93 mL/min/1.73 sq.m. Ages 60-69 = 85 mL/min/1.73 sq.m. Ages 70+ = 75 mL/min/1.73 sq.m. Chronic Kidney Disease: Less than 60 mL/min/1.73 square meters End Stage Renal Disease: Less than 15 mL/min/1.73 square meters Performed By: #### G FR, BMP #### [address] [address] .NEUABSon 12-08-2022 Neutrophil, Absolute 7.0 10 3/mcL High 2.9-6.2 [facility] ([place]) Comment on above: Performed By: #### C CONSUELO NOWAK, KELLY #### [address] [address] BMPon 12-08-2022 BUN/Creatinine Ratio 10 ratio Normal 7-27 [facility] ([place]) Comment on above: Performed By: #### Maddie PIERSON, BMP #### [address] [address] Calcium [Mass/Vol] 7.9 mg/dL Low 8.4-10.2 [facility] ([place]) Comment on above: Performed By: #### Maddie PIERSON, BMP #### [address] [address] Chloride [Moles/Vol] 109 mmol/L High 98-107 [facility] ([place]) Comment on above: Performed By: #### Maddie PIERSON, BMP #### [address] [address] CO2 [Moles/Vol] 21 mmol/L Low 22-29 [facility] ([place]) Comment on above: Performed By: #### Maddie PIERSON, BMP #### [address] [address] Creatinine [Mass/Vol] 0.92 mg/dL Normal 0.55-1.02 [facility] ([place]) Comment on above: Performed By: #### Maddie PIERSON, BMP #### [address] [address] Electrolyte Balance 10.0 mEq/L Normal 4.0-15.0 [facility] ([place]) Comment on above: Performed By: #### Maddie PIERSON, BMP #### [address] [address] Glucose [Mass/Vol] 128 mg/dL High 70-105 [facility] ([place]) Comment on above: Performed By: #### Maddie PIERSON, BMP #### [address] [address] Potassium [Moles/Vol] 3.6 mmol/L Normal 3.5-5.1 [facility] ([place]) Comment on above: Performed By: #### Maddie PIERSON, BMP #### [address] [address] Sodium [Moles/Vol] 140 mmol/L Normal 136-145 [facility] ([place]) Comment on above: Performed By: #### Maddie PIERSON, BMP #### [address] [address] Urea nitrogen [Mass/Vol] 9 mg/dL Normal 7-18 [facility] ([place]) Comment on above: Performed By: #### Maddie PIERSON BMP #### [address] [address] CBCon 12-08-2022 Erythrocyte distribution width (RBC) [Ratio] 13.5 % Normal 11.5-14.5 [facility] ([place]) Comment on above: Performed By: #### CONSUELO ANN ANEU #### [address] [address] Hematocrit (Bld) [Volume fraction] 33.8 % Low 37.0-47.0 [facility] ([place]) Comment on above: Performed By: #### CONSUELO ANN ANEU #### [address] [address] Hgb 11.3 G/dL Low 12.0-16.0 [facility] ([place] Comment on above: Performed By: #### CONSUELO ANN, ANEU #### [address] [address] MCH (RBC) [Entitic mass] 31.3 pg High 27.0-31.2 [facility] ([place] Comment on above: Performed By: #### CONSUELO ANN, ANEU #### [place] [address] [address] MCHC 33.3 G/dL Normal 33.0-37.0 [facility] ([place]) Comment on above: Performed By: #### CONSUELO ANN ANEU #### [facility] [address] [place], [place] [address] MCV (RBC) [Entitic vol] 94.1 fL High 80.0-94.0 [facility] ([place]) Comment on above: Performed By: #### C CONSUELO NOWAK, ANEU #### [facility] [place] [address] [place], [place] [address] Platelet 141 10 3/mcL Normal 130-400 [facility] ([place]) Comment on above: Performed By: #### C CONSUELO NOWAK, ANEU #### [place] [address] [address] Platelet mean volume (Bld) [Entitic vol] 8.5 fL Normal 7.4-10.4 [facility] ([place]) Comment on above: Performed By: #### C CONSUELO NOWAK, ANEU #### [place] [address] [address] RBC 3.59 10 6/mcL Low 4.20-5.40 [facility] ([place]) Comment on above: Performed By: #### C CONSUELO NOWAK, ANEU #### [address] [address] WBC 9.2 10 3/mcL Normal 4.6-10.8 [facility] ([place] Comment on above: Performed By: #### C CONSUELO NOWAK, ANEU #### [address] [address] LABORATORYOrdered By: Regis Sepulveda on 12-08-2022 Basophil, Absolute 0.0 103/mcL Invalid Interpretation Code 0.0 - 0.2 10^3/mcL AO Workflow SS Basophils/100 WBC (Bld) 0.3 % Invalid Interpretation Code 0.0 - 2.5 % AO Workflow SS Eosinophil, Absolute 0.0 103/mcL Invalid Interpretation Code 0.0 - 0.4 10^3/mcL AO Workflow SS Eosinophils/100 WBC (Bld) 0.2 % Invalid Interpretation Code 0.0 - 7.0 % AO Workflow SS Erythrocyte distribution width (RBC) [Ratio] 13.5 % Invalid Interpretation Code 11.5 - 14.5 % AO Workflow SS Hematocrit (Bld) [Volume fraction] 33.8 % Invalid Interpretation Code 37.0 - 47.0 % AO Workflow SS Hemoglobin (Bld) [Mass/Vol] 11.3 G/dL Invalid Interpretation Code 12.0 - 16.0 G/dL AO Workflow SS Lymphocyte, Absolute 1.5 103/mcL Invalid Interpretation Code 0.8 - 3.9 10^3/mcL AO Workflow SS Lymphocytes/100 WBC (Bld) 16.6 % Invalid Interpretation Code 10.0 - 50.0 % AO Workflow SS MCH (RBC) [Entitic mass] 31.3 pg Invalid Interpretation Code 27.0 - 31.2 pg AO Workflow SS MCHC 33.3 G/dL Invalid Interpretation Code 33.0 - 37.0 G/dL AO Workflow SS MCV (RBC) [Entitic vol] 94.1 fL Invalid Interpretation Code 80.0 - 94.0 fL AO Workflow SS Monocyte, Absolute 0.7 103/mcL Invalid Interpretation Code 0.2 - 1.0 10^3/mcL AO Workflow SS Monocytes/100 WBC (Bld) 7.3 % Invalid Interpretation Code 1.7 - 13.0 % AO Workflow SS Neutrophil, Absolute 7.0 103/mcL Invalid Interpretation Code 2.9 - 6.2 10^3/mcL AO Workflow SS Neutrophils/100 WBC (Bld) 75.6 % Invalid Interpretation Code 37.0 - 80.0 % AO Workflow SS Platelet mean volume (Bld) [Entitic vol] 8.5 fL Invalid Interpretation Code 7.4 - 10.4 fL AO Workflow SS Platelets (Bld) [#/Vol] 141 103/mcL Invalid Interpretation Code 130 - 400 10^3/mcL AO Workflow SS RBC (Bld) [#/Vol] 3.59 106/mcL Invalid Interpretation Code 4.20 - 5.40 10^6/mcL AO Workflow SS WBC (Bld) [#/Vol] 9.2 103/mcL Invalid Interpretation Code 4.6 - 10.8 10^3/mcL AO Workflow SS LABORATORYOrdered By: SYSTEM SYSTEM on 12-08-2022 Calcium [Mass/Vol] 7.9 mg/dL Invalid Interpretation Code 8.4 - 10.2 mg/dL AO ADM SS Chloride [Moles/Vol] 109 mmol/L Invalid Interpretation Code 98 - 107 mmol/L AO ADM SS CO2 [Moles/Vol] 21 mmol/L Invalid Interpretation Code 22 - 29 mmol/L AO ADM SS Creatinine [Mass/Vol] 0.92 mg/dL Invalid Interpretation Code 0.55 - 1.02 mg/dL AO ADM SS Electrolyte Balance 10.0 mEq/L Invalid Interpretation Code 4.0 - 15.0 mEq/L AO ADM SS GFR/1.73 sq M.predicted among blacks MDRD (S/P/Bld) [Vol rate/Area] 84 ml/min/1.73sqm Invalid Interpretation Code AO Chemistry S GFR/1.73 sq M.predicted among non-blacks MDRD (S/P/Bld) [Vol rate/Area] 69 ml/min/1.73sqm Invalid Interpretation Code AO Chemistry S Glucose [Mass/Vol] 128 mg/dL Invalid Interpretation Code 70 - 105 mg/dL AO ADM SS Potassium [Moles/Vol] 3.6 mmol/L Invalid Interpretation Code 3.5 - 5.1 mmol/L AO ADM SS Sodium [Moles/Vol] 140 mmol/L Invalid Interpretation Code 136 - 145 mmol/L AO ADM SS Urea nitrogen [Mass/Vol] 9 mg/dL Invalid Interpretation Code 7 - 18 mg/dL AO ADM SS Urea nitrogen/Creatinine [Mass ratio] 10 ratio Invalid Interpretation Code 7 - 27 ratio AO ADM SS APTTon 12-07-2022 aPTT Coag (Bld) [Time] 32.3 s Normal 25.0-35.0 [facility] ([place]) Comment on above: Result Comment: For Heparin anticoagulation therapy, the recommended therapeutic range is: 50.6-87.4 seconds. Patients on heparin therapy may have an extreme result. Performed By: #### P RO, APTT #### [address] [address] Heparin dose (APTT) Unknown Normal [facility] ([place]) Comment on above: Performed By: #### P RO, APTT #### [address] [address] LABORATORYOrdered By: Regis Sepulveda on 12-07-2022 aPTT Coag (PPP) [Time] 32.3 s Invalid Interpretation Code 25.0 - 35.0 seconds AO [facility] SS Heparin dose (APTT) Unknown (12/07/22 7:35 AM) Invalid Interpretation Code AO [facility] SS INR Coag (PPP) [Relative time] 1.1 {INR} Invalid Interpretation Code AO [facility] SS PT Coag (PPP) [Time] 12.9 s Invalid Interpretation Code 9.1 - 14.2 seconds AO [facility] SS HCG ( test) Ql Negative (12/07/22 6:23 AM) Invalid Interpretation Code AO Manual Urine SS test (u) int Not detected Invalid Interpretation Code AO Manual Urine SS PREGUon 12-07-2022 HCG ( test) Ql (U) Negative Normal [facility] ([place]) Comment on above: Performed By: #### G FR, BMP #### [address] [address] test (u) int Not detected Invalid Interpretation Code [facility] ([place]) Comment on above: Performed By: #### G FR, BMP #### [address] [address] PROon 12-07-2022 PT Coag (PPP) [Time] 12.9 s Normal 9.1-14.2 [facility] ([place]) Comment on above: Order Comment: Short sample. Notified Surgery @12/07/2022 07:29:42 EDT BP Performed By: #### P RO, APTT #### [place] [address] PT International Ratio 1.1 Normal [facility] ([place]) Comment on above: Order Comment: Short sample. Notified Surgery @12/07/2022 07:29:42 EDT BP Result Comment: The [employer] (CHEST, 1992, [id number]) recommended therapeutic range for oral anticoagulant therapy is: LOW RISK: Prophylaxis of venous thrombosis INR: 2.0-3.0 Treatment of pulmonary embolism 2.0-3.0 Prevention of systemic embolism 2.0-3.0 HIGH RISK: Mechanical prosthetic valves 2.5-3.5 Performed By: #### P RO, APTT #### [address] [address] XR FLUORO 1-2 HRS TECH TIMEo n 12-07-2022 XR FLUORO 1-2 HRS TECH TIME ORIGINAL Images acquired, not reported on this accession number. Normal [facility] ([place]) XR CHEST 2 VIEWSon 3 XR CHEST 2 VIEWS ORIGINAL EXAMINATION: TWO XRAY VIEWS OF THE CHEST11/25/2022 2:18 pm COMPARISON: Chest radiograph 12/06/2014 HISTORY: ORDERING SYSTEM PROVIDED HISTORY: Reason for Exam: Pre-admission testing FINDINGS: The cardiomediastinal silhouette is stable. No focal consolidation or pulmonary edema. No pneumothorax or pleural effusion. No acute osseous abnormalities. Mild degenerative changes of the thoracic spine. IMPRESSION: No acute radiographic findings. I have personally reviewed the images of this examination and agree with the resident's findings and interpretation. Interpreted by: Jacob Pryor MD Preliminary Report By: Fredy Carr Electronically signed By Jacob Pryor MD Dictated Date: 11/29/2022 8:55:38 AM Prelim Date: 11/29/2022 9:01:26 AM Sign Date: 11/29/2022 9:01:26 AM Ordering Provider: LES MICHEL Normal [facility]) .Auto Diffon 11-25-2022 Basophil, Absolute 0.0 10 3/mcL Normal 0.0-0.2 [facility]) Comment on above: Performed By: #### B MP, ADIFF, APTT, CBC, PRO, GFR, ANEU #### [address] [address] Basophils/100 WBC (Bld) 0.7 % Normal 0.0-2.5 [facility]) Comment on above: Performed By: #### B MP, ADIFF, APTT, CBC, PRO, GFR, ANEU #### [address] [address] Eosinophil, Absolute 0.1 10 3/mcL Normal 0.0-0.4 [facility] ([place]) Comment on above: Performed By: #### B MP, ADIFF, APTT, CBC, PRO, GFR, ANEU #### [address] [address] Eosinophils/100 WBC (Bld) 2.4 % Normal 0.0-7.0 [facility] ([place]) Comment on above: Performed By: #### B MP, ADIFF, APTT, CBC, PRO, GFR, ANEU #### [address] [address] Lymphocyte, Absolute 2.1 10 3/mcL Normal 0.8-3.9 [facility] ([place]) Comment on above: Performed By: #### B MP, ADIFF, APTT, CBC, PRO, GFR, ANEU #### [address] [address] Lymphocytes/100 WBC (Bld) 39.1 % Normal 10.0-50.0 [facility] ([place]) Comment on above: Performed By: #### B MP, ADIFF, APTT, CBC, PRO, GFR, ANEU #### [address] [address] Monocyte, Absolute 0.5 10 3/mcL Normal 0.2-1.0 [facility] ([place]) Comment on above: Performed By: #### B MP, ADIFF, APTT, CBC, PRO, GFR, ANEU #### [address] [address] Monocytes/100 WBC (Bld) 8.5 % Normal 1.7-13.0 [facility] ([place]) Comment on above: Performed By: #### B MP, ADIFF, APTT, CBC, PRO, GFR, ANEU #### [address] [address] Neutrophils/100 WBC (Bld) 49.3 % Normal 37.0-80.0 [facility] ([place]) Comment on above: Performed By: #### B MP, ADIFF, APTT, CBC, PRO, GFR, ANEU #### [address] [address] .GFRon 11-25-2022 GFR 92 ml/min/1.73sqm Normal [facility] ([place]) Comment on above: Result Comment: GFR Population mean for , Non- Americans Ages 20-29 = 116 mL/min/1.73 sq.m. Ages 30-39 = 107 mL/min/1.73 sq.m. Ages 40-49 = 99 mL/min/1.73 sq.m. Ages 50-59 = 93 mL/min/1.73 sq.m. Ages 60-69 = 85 mL/min/1.73 sq.m. Ages 70+ = 75 mL/min/1.73 sq.m. Chronic Kidney Disease: Less than 60 mL/min/1.73 square meters End Stage Renal Disease: Less than 15 mL/min/1.73 square meters Performed By: #### G , BMP #### [address] [address] GFR Non- 76 ml/min/1.73sqm Normal [facility] ([place]) Comment on above: Result Comment: GFR Population mean for , Non- Americans Ages 20-29 = 116 mL/min/1.73 sq.m. Ages 30-39 = 107 mL/min/1.73 sq.m. Ages 40-49 = 99 mL/min/1.73 sq.m. Ages 50-59 = 93 mL/min/1.73 sq.m. Ages 60-69 = 85 mL/min/1.73 sq.m. Ages 70+ = 75 mL/min/1.73 sq.m. Chronic Kidney Disease: Less than 60 mL/min/1.73 square meters End Stage Renal Disease: Less than 15 mL/min/1.73 square meters Performed By: #### G FR, BMP #### [address] [address] .NEUABSon 11-25-2022 Neutrophil, Absolute 2.6 10 3/mcL Low 2.9-6.2 [facility] ([place]) Comment on above: Performed By: #### B MP, ADIFF, APTT, CBC, PRO, GFR, ANEU #### [address] [address] APTTon 11-25-2022 aPTT Coag (Bld) [Time] 38.4 s High 25.0-35.0 [facility] ([place]) Comment on above: Result Comment: For Heparin anticoagulation therapy, the recommended therapeutic range is: 50.6-87.4 seconds. Patients on heparin therapy may have an extreme result. Performed By: #### Maddie PIERSON, BMP #### [address] [address] Heparin dose (APTT) Unknown Normal [facility] ([place]) Comment on above: Performed By: #### Maddie PIERSON, BMP #### [address] [address] BMPon 11-25-2022 BUN/Creatinine Ratio 14 ratio Normal 7-27 [facility] ([place]) Comment on above: Performed By: #### Maddie PIERSON, BMP #### [address] [address] Calcium [Mass/Vol] 8.9 mg/dL Normal 8.4-10.2 [facility] ([place]) Comment on above: Performed By: #### Maddie PIERSON, BMP #### [address] [address] Chloride [Moles/Vol] 111 mmol/L High 98-107 [facility] ([place]) Comment on above: Performed By: #### Maddie PIERSON, BMP #### [address] [address] CO2 [Moles/Vol] 22 mmol/L Normal 22-29 [facility] ([place]) Comment on above: Performed By: #### Maddie PIERSON, BMP #### [address] [address] Creatinine [Mass/Vol] 0.85 mg/dL Normal 0.55-1.02 [facility] ([place]) Comment on above: Performed By: #### Maddie PIERSON, BMP #### [address] [address] Electrolyte Balance 11.0 mEq/L Normal 4.0-15.0 [facility] ([place]) Comment on above: Performed By: #### Maddie PIERSON, BMP #### [address] [address] Glucose [Mass/Vol] 83 mg/dL Normal 70-105 [facility] ([place]) Comment on above: Performed By: #### Maddie PIERSON, BMP #### [address] [address] Potassium [Moles/Vol] 4.0 mmol/L Normal 3.5-5.1 [facility] ([place]) Comment on above: Performed By: #### G FR, BMP #### [address] [address] Sodium [Moles/Vol] 144 mmol/L Normal 136-145 [facility] ([place]) Comment on above: Performed By: #### G , BMP #### [address] [address] Urea nitrogen [Mass/Vol] 12 mg/dL Normal 7-18 [facility] ([place]) Comment on above: Performed By: #### G , BMP #### [address] [address] CBCon 11-25-2022 Erythrocyte distribution width (RBC) [Ratio] 13.7 % Normal 11.5-14.5 [facility] ([place]) Comment on above: Order Comment: Pre-A dmission Testing Performed By: #### B MP, ADIFF, APTT, CBC, PRO, GFR, ANEU #### [address] [address] Hematocrit (Bld) [Volume fraction] 38.9 % Normal 37.0-47.0 [facility] ([place]) Comment on above: Order Comment: Pre-A dmission Testing Performed By: #### B MP, ADIFF, APTT, CBC, PRO, GFR, ANEU #### [address] [address] Hgb 13.0 G/dL Normal 12.0-16.0 [facility] ([place]) Comment on above: Order Comment: Pre-A dmission Testing Performed By: #### B MP, ADIFF, APTT, CBC, PRO, GFR, ANEU #### [address] [address] MCH (RBC) [Entitic mass] 31.3 pg High 27.0-31.2 [facility] ([place]) Comment on above: Order Comment: Pre-A dmission Testing Performed By: #### B MP, ADIFF, APTT, CBC, PRO, GFR, ANEU #### [address] [address] MCHC 33.3 G/dL Normal 33.0-37.0 [facility] ([place]) Comment on above: Order Comment: Pre-A dmission Testing Performed By: #### B MP, ADIFF, APTT, CBC, PRO, GFR, ANEU #### [address] [address] MCV (RBC) [Entitic vol] 93.9 fL Normal 80.0-94.0 [facility] ([place]) Comment on above: Order Comment: Pre-A dmission Testing Performed By: #### B MP, ADIFF, APTT, CBC, PRO, GFR, ANEU #### [address] [address] Platelet 172 10 3/mcL Normal 130-400 [facility] ([place]) Comment on above: Order Comment: Pre-A dmission Testing Performed By: #### B MP, ADIFF, APTT, CBC, PRO, GFR, ANEU #### [address] [address] Platelet mean volume (Bld) [Entitic vol] 8.8 fL Normal 7.4-10.4 [facility] ([place]) Comment on above: Order Comment: Pre-A dmission Testing Performed By: #### B MP, ADIFF, APTT, CBC, PRO, GFR, ANEU #### [address] [address] RBC 4.14 10 6/mcL Low 4.20-5.40 [facility] ([place]) Comment on above: Order Comment: Pre-A dmission Testing Performed By: #### B MP, ADIFF, APTT, CBC, PRO, GFR, ANEU #### [address] [address] WBC 5.3 10 3/mcL Normal 4.6-10.8 [facility] ([place]) Comment on above: Order Comment: Pre-A dmission Testing Performed By: #### B MP, ADIFF, APTT, CBC, PRO, GFR, ANEU #### [place] [address] LABORATORYOrdered By: Kwabena mary Corbett on 11-25-2022 aPTT Coag (PPP) [Time] 38.4 s Invalid Interpretation Code 25.0 - 35.0 seconds AO [facility] SS Basophil, Absolute 0.0 103/mcL Invalid Interpretation Code 0.0 - 0.2 10^3/mcL AO Workflow SS Basophils/100 WBC (Bld) 0.7 % Invalid Interpretation Code 0.0 - 2.5 % AO Workflow SS Eosinophil, Absolute 0.1 103/mcL Invalid Interpretation Code 0.0 - 0.4 10^3/mcL AO Workflow SS Eosinophils/100 WBC (Bld) 2.4 % Invalid Interpretation Code 0.0 - 7.0 % AO Workflow SS Erythrocyte distribution width (RBC) [Ratio] 13.7 % Invalid Interpretation Code 11.5 - 14.5 % AO Workflow SS Hematocrit (Bld) [Volume fraction] 38.9 % Invalid Interpretation Code 37.0 - 47.0 % AO Workflow SS Hemoglobin (Bld) [Mass/Vol] 13.0 G/dL Invalid Interpretation Code 12.0 - 16.0 G/dL AO Workflow SS Heparin dose (APTT) Unknown (11/25/22 1:33 PM) Invalid Interpretation Code AO [facility] SS INR Coag (PPP) [Relative time] 1.2 {INR} Invalid Interpretation Code AO [facility] SS Lymphocyte, Absolute 2.1 103/mcL Invalid Interpretation Code 0.8 - 3.9 10^3/mcL AO Workflow SS Lymphocytes/100 WBC (Bld) 39.1 % Invalid Interpretation Code 10.0 - 50.0 % AO Workflow SS MCH (RBC) [Entitic mass] 31.3 pg Invalid Interpretation Code 27.0 - 31.2 pg AO Workflow SS MCHC 33.3 G/dL Invalid Interpretation Code 33.0 - 37.0 G/dL AO Workflow SS MCV (RBC) [Entitic vol] 93.9 fL Invalid Interpretation Code 80.0 - 94.0 fL AO Workflow SS Monocyte, Absolute 0.5 103/mcL Invalid Interpretation Code 0.2 - 1.0 10^3/mcL AO Workflow SS Monocytes/100 WBC (Bld) 8.5 % Invalid Interpretation Code 1.7 - 13.0 % AO Workflow SS Neutrophil, Absolute 2.6 103/mcL Invalid Interpretation Code 2.9 - 6.2 10^3/mcL AO Workflow SS Neutrophils/100 WBC (Bld) 49.3 % Invalid Interpretation Code 37.0 - 80.0 % AO Workflow SS Platelet mean volume (Bld) [Entitic vol] 8.8 fL Invalid Interpretation Code 7.4 - 10.4 fL AO Workflow SS Platelets (Bld) [#/Vol] 172 103/mcL Invalid Interpretation Code 130 - 400 10^3/mcL AO Workflow SS PT Coag (PPP) [Time] 13.3 s Invalid Interpretation Code 9.1 - 14.2 seconds AO [facility] SS RBC (Bld) [#/Vol] 4.14 106/mcL Invalid Interpretation Code 4.20 - 5.40 10^6/mcL AO Workflow SS WBC (Bld) [#/Vol] 5.3 103/mcL Invalid Interpretation Code 4.6 - 10.8 10^3/mcL AO Workflow SS LABORATORYOrdered By: SYSTEM SYSTEM on 11-25-2022 Calcium [Mass/Vol] 8.9 mg/dL Invalid Interpretation Code 8.4 - 10.2 mg/dL AO ADM SS Chloride [Moles/Vol] 111 mmol/L Invalid Interpretation Code 98 - 107 mmol/L AO ADM SS CO2 [Moles/Vol] 22 mmol/L Invalid Interpretation Code 22 - 29 mmol/L AO ADM SS Creatinine [Mass/Vol] 0.85 mg/dL Invalid Interpretation Code 0.55 - 1.02 mg/dL AO ADM SS Electrolyte Balance 11.0 mEq/L Invalid Interpretation Code 4.0 - 15.0 mEq/L AO ADM SS GFR/1.73 sq M.predicted among blacks MDRD (S/P/Bld) [Vol rate/Area] 92 ml/min/1.73sqm Invalid Interpretation Code AO Chemistry S GFR/1.73 sq M.predicted among non-blacks MDRD (S/P/Bld) [Vol rate/Area] 76 ml/min/1.73sqm Invalid Interpretation Code AO Chemistry S Glucose [Mass/Vol] 83 mg/dL Invalid Interpretation Code 70 - 105 mg/dL AO ADM SS Potassium [Moles/Vol] 4.0 mmol/L Invalid Interpretation Code 3.5 - 5.1 mmol/L AO ADM SS Sodium [Moles/Vol] 144 mmol/L Invalid Interpretation Code 136 - 145 mmol/L AO ADM SS Urea nitrogen [Mass/Vol] 12 mg/dL Invalid Interpretation Code 7 - 18 mg/dL AO ADM SS Urea nitrogen/Creatinine [Mass ratio] 14 ratio Invalid Interpretation Code 7 - 27 ratio AO ADM SS PROon 11-25-2022 PT Coag (PPP) [Time] 13.3 s Normal 9.1-14.2 [facility] ([place]) Comment on above: Performed By: #### G FR, BMP #### [address] [address] PT International Ratio 1.2 Normal [facility] ([place]) Comment on above: Result Comment: The [employer] (CHEST, 1992, 102:[id number]) recommended therapeutic range for oral anticoagulant therapy is: LOW RISK: Prophylaxis of venous thrombosis INR: 2.0-3.0 Treatment of pulmonary embolism 2.0-3.0 Prevention of systemic embolism 2.0-3.0 HIGH RISK: Mechanical prosthetic valves 2.5-3.5 Performed By: #### G FR, BMP #### [address] [address] Coronavirus 2019on 0 COVID 19 Result 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 [facility] Lab Comment on above: Result Comment: Nega tive for This test was developed and its performance characteristics determined by [facility]'s [facility] [place]. This test has been authorized by FDA under an Emergency Use Authorization (EUA). This test has been validated in accordance with the FDA's Guidance Document Policy for Diagnostics Testing in Laboratories Certified to Perform High Complexity Testing under CLIA prior to Emergency use Authorization for Coronavirus Disease 2019 during the Public Health Emergency issued on August 10, 2019. COVID19 (SARS This test was developed and its performance characteristics determined by [facility]'s [facility] [place]. This test has been authorized by FDA under an Emergency Use Authorization (EUA). This test has been validated in accordance with the FDA's Guidance Document Policy for Diagnostics Testing in Laboratories Certified to Perform High Complexity Testing under CLIA prior to Emergency use Authorization for Coronavirus Disease 2019 during the Public Health Emergency issued on August 10, 2019. CoV2) by PCR. This test was developed and its performance characteristics determined by [facility] [place]. This test has been authorized by FDA under an Emergency Use Authorization (EUA). This test has been validated in accordance with the FDA's Guidance Document Policy for Diagnostics Testing in Laboratories Certified to Perform High Complexity Testing under CLIA prior to Emergency use Authorization for Coronavirus Disease 2019 during the Public Health Emergency issued on August 10, 2019. 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 MANAGER Normal [facility] Lab Comment on above: Result Comment: Naso pharyngeal Corrected on 04/26 AT 0707: Previously reported as U Swab Corrected on 04/26 AT 0707: Previously reported as U Performed By: #### C OVID #### [facility] Reference [address] [place], [place] [address] GC/Chlamydia Amp, Uron 07-09 Chlamydia Amplif, Ur Normal [facility] Reference Lab Comment on above: Result Comment: Nega tive for For screening asymptomatic women, a vaginal swab specimen (APTIMA vaginal swab 772680) is optimal. Urine specimens have reduced sensitivity for Chlamydia trachomatis or Neisseria gonorrhoeae infection in female patients without symptoms. This test was developed and its performance characteristics determined by [facility] [place] ([facility]). It has not been cleared or approved by the FDA. RT [facility] is regulated under CLIA as qualified to perform high complexity testing. This test is used for clinical purposes. It should not be regarded as investigational or for research. Chlamydia For screening asymptomatic women, a vaginal swab specimen (APTIMA vaginal swab [address]) is optimal. Urine specimens have reduced sensitivity for Chlamydia trachomatis or Neisseria gonorrhoeae infection in female patients without symptoms. This test was developed and its performance characteristics determined by [facility]'s [facility] [place] ( [facility]). It has not been cleared or approved by the FDA. RT [facility] is regulated under CLIA as qualified to perform high complexity testing. This test is used for clinical purposes. It should not be regarded as investigational or for research. trachomatis by For screening asymptomatic women, a vaginal swab specimen (APTIMA vaginal swab 234634) is optimal. Urine specimens have reduced sensitivity for Chlamydia trachomatis or Neisseria gonorrhoeae infection in female patients without symptoms. This test was developed and its performance characteristics determined by [facility] [place] ([facility]). It has not been cleared or approved by the FDA. RT [facility] is regulated under CLIA as qualified to perform high complexity testing. This test is used for clinical purposes. It should not be regarded as investigational or for research. amplification. For screening asymptomatic women, a vaginal swab specimen (APTIMA vaginal swab 493766) is optimal. Urine specimens have reduced sensitivity for Chlamydia trachomatis or Neisseria gonorrhoeae infection in female patients without symptoms. This test was developed and its performance characteristics determined by [facility] [place] ([facility]). It has not been cleared or approved by the FDA. RT [facility] is regulated under CLIA as qualified to perform high complexity testing. This test is used for clinical purposes. It should not be regarded as investigational or for research. Performed By: #### U GCCT #### [facility] Routine Lab [address] [id number] GC Amplification, Ur NGNEG Normal [facility] Reference Lab Comment on above: Performed By: #### U GCCT #### [facility] Routine Lab [address] [place] [address] Vital Signs Date Time Vital Sign Value Performing Clinician Facility 01-11-2025 14:33-0400 Body mass index (BMI) [Ratio] 35.34 kg/m2 Jay Delgado APRN.KOLE Work Phone: [facility] 01-11-2025 14:33-0400 Body temperature 97.39 [degF] Jay Delgado APRN.CNP Work Phone: [facility] 01-11-2025 14:33-0400 Body weight 90.5 kg Jay Moomaw 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 Phone: [facility] 01-11-2025 14:33-0400 Diastolic blood pressure 78 mm[Hg] Jay Moomaw 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 Phone: [facility] 01-11-2025 14:33-0400 Heart rate 70 /min Jay Moomaw 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 Phone: [facility] 01-11-2025 14:33-0400 Respiratory rate 18 /min Jay Moomaw 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 Phone: [facility] 01-11-2025 14:33-0400 SaO2% (BldA) [Mass fraction] 99 % Jay Moomaw 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 Phone: [facility] 01-11-2025 14:33-0400 Systolic blood pressure 118 mm[Hg] Jay Moomaw 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 Phone: [facility] 01-02-2025 14:07-0400 Body mass index (BMI) [Ratio] 35.18 kg/m2 Pramod Jason PA-C Work Phone: [facility] 01-02-2025 14:07-0400 Body weight 90.08 kg Pramod Jason PA-C Work Phone: [facility] 01-02-2025 14:07-0400 Diastolic blood pressure 64 mm[Hg] Pramod Jason PA-C Work Phone: [facility] 01-02-2025 14:07-0400 Heart rate 79 /min Pramod Jason PA-C Work Phone: [facility] 01-02-2025 14:07-0400 Respiratory rate 17 /min Pramod Jason PA-C Work Phone: [facility] 01-02-2025 14:07-0400 SaO2% (BldA) [Mass fraction] 100 % Pramod Jason PA-C Work Phone: [facility] 01-02-2025 14:07-0400 Systolic blood pressure 110 mm[Hg] Pramod Gomez PA-C Work Phone: [facility] 12-18-2024 14:12-0400 Body height 160 cm Nick Rachel MD Work Phone: [facility] 12-18-2024 14:12-0400 Body mass index (BMI) [Ratio] 34.54 kg/m2 Nick Rachel MD Work Phone: [facility] 12-18-2024 14:12-0400 Body weight 88.45 kg Nick Rachel MD Work Phone: [facility] 12-18-2024 14:12-0400 Diastolic blood pressure 68 mm[Hg] Nick Rachel MD Work Phone: [facility] 12-18-2024 14:12-0400 Heart rate 108 /min Nick Rachel MD Work Phone: [facility] 12-18-2024 14:12-0400 Systolic blood pressure 109 mm[Hg] Nick Rachel MD Work Phone: [facility] 11-14-2024 10:06-0400 Body height 157.5 cm Janet Dahlhausen 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 Phone: [facility] 11-14-2024 10:06-0400 Body mass index (BMI) [Ratio] 35.12 kg/m2 Janet Dahlhausen 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 Phone: [facility] 11-14-2024 10:06-0400 Body weight 87.09 kg Janet Dahlhausen 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 Phone: [facility] 11-14-2024 10:06-0400 Diastolic blood pressure 67 mm[Hg] Janet Dahlhausen 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 Phone: [facility] 11-14-2024 10:06-0400 Heart rate 87 /min Janet Dahlhausen 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 Phone: [facility] 11-14-2024 10:06-0400 SaO2% (BldA) [Mass fraction] 99 % Janet Watersmandimonikjohn 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 Phone: [facility] 11-14-2024 10:06-0400 Systolic blood pressure 112 mm[Hg] Janetbassem Waterstremayne 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 Phone: [facility] 10-23-2024 15:40-0400 Body temperature 98 [degF] Neli Ungerer BOOKING MANAGER-C Work Phone: [facility] 10-23-2024 15:40-0400 Diastolic blood pressure 73 mm[Hg] Neli Ungerer BOOKING MANAGER-C Work Phone: [facility] 10-23-2024 15:40-0400 Heart rate 79 /min Neli Ungerer BOOKING MANAGER-C Work Phone: [facility] 10-23-2024 15:40-0400 Respiratory rate 18 /min Neli Ungerer BOOKING MANAGER-C Work Phone: [facility] 10-23-2024 15:40-0400 SaO2% (BldA) [Mass fraction] 100 % Neli Ungerer BOOKING MANAGER-C Work Phone: [facility] 10-23-2024 15:40-0400 Systolic blood pressure 105 mm[Hg] Neli Ungerer BOOKING MANAGER-C Work Phone: [facility] 10-23-2024 13:52-0400 Body mass index (BMI) [Ratio] 36 kg/m2 Neli Ungerer BOOKING MANAGER-C Work Phone: [facility] 10-23-2024 11:49-0400 Body height 157.48 cm Neli Ungerer BOOKING MANAGER-C Work Phone: [facility] 10-23-2024 11:49-0400 Body weight 89.4 kg Neli Ungerer BOOKING MANAGER-C Work Phone: [facility] 10-22-2024 22:00-0400 Diastolic blood pressure 81 mm[Hg] Neli Ungerer BOOKING MANAGER-C Work Phone: [facility] 10-22-2024 22:00-0400 Heart rate 67 /min Neli Ungerer BOOKING MANAGER-C Work Phone: [facility] 10-22-2024 22:00-0400 Respiratory rate 15 /min Neli Ungerer BOOKING MANAGER-C Work Phone: [facility] 10-22-2024 22:00-0400 SaO2% (BldA) [Mass fraction] 100 % Neli Ungerer BOOKING MANAGER-C Work Phone: [facility] 10-22-2024 22:00-0400 Systolic blood pressure 123 mm[Hg] Neli Ungerer BOOKING MANAGER-C Work Phone: [facility] 10-22-2024 20:55-0400 Body height 157.48 cm Neli Ungerer BOOKING MANAGER-C Work Phone: [facility] 10-22-2024 20:55-0400 Body mass index (BMI) [Ratio] 37.4 kg/m2 Neli Ungerer BOOKING MANAGER-C Work Phone: [facility] 10-22-2024 20:55-0400 Body temperature 98.2 [degF] Neli Ungerer BOOKING MANAGER-C Work Phone: [facility] 10-22-2024 20:55-0400 Body weight 92.9 kg Neli Ungerer BOOKING MANAGER-C Work Phone: [facility] 09-22-2024 16:49-0400 Body height 160.02 cm 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 Neli Ungerer BOOKING MANAGER-C Work Phone: [facility] 09-22-2024 16:49-0400 Body mass index (BMI) [Ratio] 34.2 kg/m2 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 Neli Ungerer BOOKING MANAGER-C Work Phone: [facility] 09-22-2024 16:49-0400 Body temperature 98.1 [degF] 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 Neli Mayerer BOOKING MANAGER-C Work Phone: [facility] 09-22-2024 16:49-0400 Body weight 87.72 kg 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 Neli Mayerer BOOKING MANAGER-C Work Phone: [facility] 09-22-2024 16:49-0400 Diastolic blood pressure 80 mm[Hg] 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 Neli Mayerer BOOKING MANAGER-C Work Phone: [facility] 09-22-2024 16:49-0400 Heart rate 89 /min 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 Neli Mayerer BOOKING MANAGER-C Work Phone: [facility] 09-22-2024 16:49-0400 Respiratory rate 16 /min 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 Neli Mayerer BOOKING MANAGER-C Work Phone: [facility] 09-22-2024 16:49-0400 SaO2% (BldA) [Mass fraction] 98 % 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 Neli Mayerer BOOKING MANAGER-C Work Phone: [facility] 09-22-2024 16:49-0400 Systolic blood pressure 113 mm[Hg] 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 Neli Mayerer BOOKING MANAGER-C Work Phone: [facility] 09-07-2024 11:28-0400 Body mass index (BMI) [Ratio] 35.2 kg/m2 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 Neli Mayerer BOOKING MANAGER-C Work Phone: [facility] 09-07-2024 11:28-0400 Body temperature 98.2 [degF] 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 Neli Mayerer BOOKING MANAGER-C Work Phone: [facility] 09-07-2024 11:28-0400 Body weight 90.03 kg 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 Neli Mayerer BOOKING MANAGER-C Work Phone: [facility] 09-07-2024 11:28-0400 Heart rate 92 /min 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 Neli Mayerer BOOKING MANAGER-C Work Phone: [facility] 09-07-2024 11:28-0400 Respiratory rate 16 /min 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 Neli Ungerer BOOKING MANAGER-C Work Phone: [facility] 09-07-2024 11:28-0400 SaO2% (BldA) [Mass fraction] 99 % 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 Neli Ungerer BOOKING MANAGER-C Work Phone: [facility] 08-23-2024 08:59-0400 Body temperature 97.8 [degF] 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 Neli Ungerer BOOKING MANAGER-C Work Phone: [facility] 08-23-2024 08:59-0400 Diastolic blood pressure 82 mm[Hg] 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 Neli Ungerer BOOKING MANAGER-C Work Phone: [facility] 08-23-2024 08:59-0400 Heart rate 73 /min 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 Neli Ungerer BOOKING MANAGER-C Work Phone: [facility] 08-23-2024 08:59-0400 SaO2% (BldA) [Mass fraction] 97 % 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 Neli Ungerer BOOKING MANAGER-C Work Phone: [facility] 08-23-2024 08:59-0400 Systolic blood pressure 120 mm[Hg] 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 Neli Ungerer BOOKING MANAGER-C Work Phone: [facility] 08-17-2024 17:30-0500 Body temperature 98 [degF] 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 Enli Ungerer BOOKING MANAGER-C Work Phone: [facility] 08-17-2024 17:30-0500 Diastolic blood pressure 65 mm[Hg] 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 Neli Ungerer BOOKING MANAGER-C Work Phone: [facility] 08-17-2024 17:30-0500 Heart rate 70 /min 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 Neli Ungerer BOOKING MANAGER-C Work Phone: [facility] 08-17-2024 17:30-0500 Respiratory rate 18 /min 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 Neli Ungerer BOOKING MANAGER-C Work Phone: [facility] 08-17-2024 17:30-0500 SaO2% (BldA) [Mass fraction] 100 % 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 Neli Plascenciar BOOKING MANAGER-C Work Phone: [facility] 08-17-2024 17:30-0500 Systolic blood pressure 123 mm[Hg] 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 Neli Plascenciar BOOKING MANAGER-C Work Phone: [facility] 08-17-2024 15:56-0500 Body height 160.02 cm 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 Neli Plascenciar BOOKING MANAGER-C Work Phone: [facility] 08-17-2024 15:56-0500 Body mass index (BMI) [Ratio] 35.1 kg/m2 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 Neli Mayerer BOOKING MANAGER-C Work Phone: [facility] 08-17-2024 15:56-0500 Body weight 89.9 kg 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 Neli Plascenciar BOOKING MANAGER-C Work Phone: [facility] 07-29-2024 19:11-0500 Body mass index (BMI) [Ratio] 35.92 kg/m2 Jeovany Clutter PA-C Work Phone: [facility] 07-29-2024 19:11-0500 Body temperature 98.49 [degF] Jeovany Clutter PA-C Work Phone: [facility] 07-29-2024 19:11-0500 Body weight 91.99 kg Jeovany Clutter PA-C Work Phone: [facility] 07-29-2024 19:11-0500 Diastolic blood pressure 72 mm[Hg] Jeovany Clutter PA-C Work Phone: [facility] 07-29-2024 19:11-0500 Heart rate 90 /min Jeovany Clutter PA-C Work Phone: [facility] 07-29-2024 19:11-0500 Respiratory rate 16 /min Jeovany Clutter PA-C Work Phone: [facility] 07-29-2024 19:11-0500 SaO2% (BldA) [Mass fraction] 99 % Jeovany Clutter PA-C Work Phone: [facility] 07-29-2024 19:11-0500 Systolic blood pressure 110 mm[Hg] Jeovany Clutter PA-C Work Phone: [facility] 07-18-2024 14:03-0500 Body mass index (BMI) [Ratio] 35.93 kg/m2 Neli Redd 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 Phone: [facility] 07-18-2024 14:03-0500 Body temperature 99 [degF] Neli Redd 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 Phone: [facility] 07-18-2024 14:03-0500 Body weight 92 kg Neli Redd 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 Phone: [facility] 07-18-2024 14:03-0500 Diastolic blood pressure 70 mm[Hg] Neli Redd 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 Phone: [facility] 07-18-2024 14:03-0500 Heart rate 92 /min Neli Redd 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 Phone: [facility] 07-18-2024 14:03-0500 Respiratory rate 22 /min Neli Redd 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 Phone: [facility] 07-18-2024 14:03-0500 SaO2% (BldA) [Mass fraction] 100 % Neli Redd 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 Phone: [facility] 07-18-2024 14:03-0500 Systolic blood pressure 106 mm[Hg] Neli Redd 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 Phone: [facility] 06-26-2024 16:06-0500 Body mass index (BMI) [Ratio] 36.98 kg/m2 Jeovany Clutter PA-C Work Phone: [facility] 06-26-2024 16:06-0500 Body temperature 99.1 [degF] Jeovany Clutter PA-C Work Phone: [facility] 06-26-2024 16:06-0500 Body weight 94.7 kg Jeovany Clutter PA-C Work Phone: [facility] 06-26-2024 16:06-0500 Diastolic blood pressure 70 mm[Hg] Jeovany Clutter PA-C Work Phone: [facility] 06-26-2024 16:06-0500 Heart rate 88 /min Jeovany Clutter PA-C Work Phone: [facility] 06-26-2024 16:06-0500 Respiratory rate 21 /min Jeovany Clutter PA-C Work Phone: [facility] 06-26-2024 16:06-0500 SaO2% (BldA) [Mass fraction] 98 % Jeovany Clutter PA-C Work Phone: [facility] 06-26-2024 16:06-0500 Systolic blood pressure 100 mm[Hg] Jeovany Clutter PA-C Work Phone: [facility] 06-19-2024 11:45-0500 Body mass index (BMI) [Ratio] 37.2 kg/m2 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 eNli Mayerer BOOKING MANAGER-C Work Phone: [facility] 06-19-2024 11:45-0500 Body temperature 98.3 [degF] 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 Neli Ungerer BOOKING MANAGER-C Work Phone: [facility] 06-19-2024 11:45-0500 Body weight 95.31 kg 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 Neli Ungerer BOOKING MANAGER-C Work Phone: [facility] 06-19-2024 11:45-0500 Diastolic blood pressure 80 mm[Hg] 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 Neli Mayerer BOOKING MANAGER-C Work Phone: [facility] 06-19-2024 11:45-0500 Heart rate 85 /min 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 Neli Mayerer BOOKING MANAGER-C Work Phone: [facility] 06-19-2024 11:45-0500 SaO2% (BldA) [Mass fraction] 98 % 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 Neli Mayjagdish BOOKING MANAGER-C Work Phone: [facility] 06-19-2024 11:45-0500 Systolic blood pressure 120 mm[Hg] 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 Neli Mayjagdish BOOKING MANAGER-C Work Phone: [facility] 05-31-2024 14:16-0500 Body mass index (BMI) [Ratio] 36.67 kg/m2 Paty Schwartzi DO Work Phone: [facility] 05-31-2024 14:16-0500 Body temperature 98.8 [degF] Paty Masci DO Work Phone: [facility] 05-31-2024 14:16-0500 Body weight 93.89 kg Paty Lanai DO Work Phone: [facility] 05-31-2024 14:16-0500 Diastolic blood pressure 76 mm[Hg] Paty Lanai DO Work Phone: [facility] 05-31-2024 14:16-0500 Heart rate 94 /min Paty Masci DO Work Phone: [facility] 05-31-2024 14:16-0500 SaO2% (BldA) [Mass fraction] 99 % Paty Masci DO Work Phone: [facility] 05-31-2024 14:16-0500 Systolic blood pressure 110 mm[Hg] Paty Lanai DO Work Phone: [facility] 05-24-2024 11:18-0500 Body mass index (BMI) [Ratio] 37.1 kg/m2 Les Mckeon APRN.PLUCK SEPARATOR Work Phone: [facility] 05-24-2024 11:18-0500 Body temperature 98.1 [degF] Les Mckeon APRN.PLUCK SEPARATOR Work Phone: [facility] 05-24-2024 11:18-0500 Body weight 95 kg Les Mckeon APRN.PLUCK SEPARATOR Work Phone: [facility] 05-24-2024 11:18-0500 Diastolic blood pressure 78 mm[Hg] 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 Phone: [facility] 05-24-2024 11:18-0500 Heart rate 74 /min [facility] 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 Phone: [facility] 05-24-2024 11:18-0500 Respiratory rate 16 /min [facility] 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 Phone: [facility] 05-24-2024 11:18-0500 SaO2% (BldA) [Mass fraction] 100 % [facility] 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 Phone: [facility] 05-24-2024 11:18-0500 Systolic blood pressure 115 mm[Hg] [facility] 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 Phone: [facility] 04-10-2024 19:37-0400 Body mass index (BMI) [Ratio] 37.69 kg/m2 Jay Moomaw 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 Phone: [facility] 04-10-2024 19:37-0400 Body temperature 98.91 [degF] Jay Moomaw 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 Phone: [facility] 04-10-2024 19:37-0400 Body weight 96.5 kg Jay Moomaw 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 Phone: [facility] 04-10-2024 19:37-0400 Diastolic blood pressure 77 mm[Hg] Jay Moomaw 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 Phone: [facility] 04-10-2024 19:37-0400 Heart rate 79 /min Jay Moomaw 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 Phone: [facility] 04-10-2024 19:37-0400 Respiratory rate 18 /min Jay Moomaw 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 Phone: [facility] 04-10-2024 19:37-0400 SaO2% (BldA) [Mass fraction] 100 % Jay Moomaw 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 Phone: [facility] 04-10-2024 19:37-0400 Systolic blood pressure 115 mm[Hg] Jay Wilcoxomaismael 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 Phone: [facility] 03-28-2024 18:54-0400 Body mass index (BMI) [Ratio] 36.32 kg/m2 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 Phone: [facility] 03-28-2024 18:54-0400 Body temperature 98.01 [degF] Neli Redd 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 Phone: [facility] 03-28-2024 18:54-0400 Body weight 93 kg Neli Redd 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 Phone: [facility] 03-28-2024 18:54-0400 Diastolic blood pressure 68 mm[Hg] Neli Redd 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 Phone: [facility] 03-28-2024 18:54-0400 Heart rate 76 /min Neli Redd 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 Phone: [facility] 03-28-2024 18:54-0400 SaO2% (BldA) [Mass fraction] 99 % Neli Redd 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 Phone: [facility] 03-28-2024 18:54-0400 Systolic blood pressure 101 mm[Hg] Neli Redd 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 Phone: [facility] 03-19-2024 09:11-0400 Body mass index (BMI) [Ratio] 36.48 kg/m2 Michelle Marvin 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 Phone: [facility] 03-19-2024 09:11-0400 Body temperature 98.29 [degF] Michelle Marvin 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 Phone: [facility] 03-19-2024 09:11-0400 Body weight 93.4 kg Michelle Marvin 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 Phone: [facility] 03-19-2024 09:11-0400 Diastolic blood pressure 64 mm[Hg] Michelle Marvin 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 Phone: [facility] 03-19-2024 09:11-0400 Heart rate 96 /min Michelle Marvin 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 Phone: [facility] 03-19-2024 09:11-0400 Respiratory rate 18 /min Michelle Marvin APRN.PLUCK SEPARATOR Work Phone: [facility] 03-19-2024 09:11-0400 SaO2% (BldA) [Mass fraction] 98 % Michelle Marvin 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 Phone: [facility] 03-19-2024 09:11-0400 Systolic blood pressure 106 mm[Hg] Michelle Marvin 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 Phone: [facility] 02-28-2024 11:01-0400 Body height 160 cm Charline Wooten 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 Phone: [facility] 02-28-2024 11:01-0400 Body mass index (BMI) [Ratio] 35.25 kg/m2 Charlineraquel Crowender 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 Phone: [facility] 02-28-2024 11:01-0400 Body weight 90.27 kg Charline Wooten 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 Phone: [facility] 02-28-2024 11:01-0400 Diastolic blood pressure 73 mm[Hg] Charlineraquel Suarezaender 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 Phone: [facility] 02-28-2024 11:01-0400 Heart rate 84 /min Charline Crowender 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 Phone: [facility] 02-28-2024 11:01-0400 Systolic blood pressure 110 mm[Hg] Charline Hollaender 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 Phone: [facility] 11-14-2023 13:45-0400 Body height 160 cm Paty Arciniega DO Work Phone: [facility] 11-14-2023 13:45-0400 Body mass index (BMI) [Ratio] 34.37 kg/m2 Paty Arciniega DO Work Phone: [facility] 11-14-2023 13:45-0400 Body temperature 97.59 [degF] Paty Schwartzi DO Work Phone: [facility] 11-14-2023 13:45-0400 Body weight 88 kg Paty Schwartzi DO Work Phone: [facility] 11-14-2023 13:45-0400 Diastolic blood pressure 67 mm[Hg] Paty Schwartzi DO Work Phone: [facility] 11-14-2023 13:45-0400 Heart rate 92 /min Paty Schwartzi DO Work Phone: [facility] 11-14-2023 13:45-0400 SaO2% (BldA) [Mass fraction] 98 % Paty Schwartzi DO Work Phone: [facility] 11-14-2023 13:45-0400 Systolic blood pressure 104 mm[Hg] Paty Schwartzi DO Work Phone: [facility] 10-25-2023 09:41-0400 Body height 160 cm Elizabeth Marques MD Work Phone: [facility] 10-25-2023 09:41-0400 Body mass index (BMI) [Ratio] 35.43 kg/m2 Elizabeth Marques MD Work Phone: [facility] 10-25-2023 09:41-0400 Body weight 90.72 kg Elizabeth Marques MD Work Phone: [facility] 10-25-2023 09:41-0400 Diastolic blood pressure 73 mm[Hg] Elizabeth Marques MD Work Phone: [facility] 10-25-2023 09:41-0400 Heart rate 85 /min Elizabeth Marques MD Work Phone: [facility] 10-25-2023 09:41-0400 Systolic blood pressure 109 mm[Hg] Elizabeth Marques MD Work Phone: [facility] 09-14-2023 11:33-0400 Body height 160 cm Janetjohn Fernandez 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 Phone: [facility] 09-14-2023 11:33-0400 Body weight 90.72 kg Janet Dahlhausjohn 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 Phone: [facility] 09-14-2023 11:33-0400 Diastolic blood pressure 68 mm[Hg] Janetjohn Fernandez 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 Phone: [facility] 09-14-2023 11:33-0400 Heart rate 90 /min Janetjohn Fernandez 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 Phone: [facility] 09-14-2023 11:33-0400 SaO2% (BldA) [Mass fraction] 98 % Janetjohn Fernandez 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 Phone: [facility] 09-14-2023 11:33-0400 Systolic blood pressure 110 mm[Hg] Janet Darhausjohn 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 Phone: [facility] 08-30-2023 14:47-0400 Body temperature 97.8 [degF] 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 Neli Ungerer Work Phone: [facility] 08-30-2023 14:47-0400 Diastolic blood pressure 62 mm[Hg] 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 Neli Ungerer Work Phone: [facility] 08-30-2023 14:47-0400 Heart rate 65 /min 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 Neli Ungerer Work Phone: [facility] 08-30-2023 14:47-0400 Respiratory rate 16 /min 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 Enli Ungerer Work Phone: [facility] 08-30-2023 14:47-0400 SaO2% (BldA) [Mass fraction] 99 % 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 Neli Ungerer Work Phone: [facility] 08-30-2023 14:47-0400 Systolic blood pressure 93 mm[Hg] 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 Neli Ungerer Work Phone: [facility] 08-30-2023 14:34-0400 Body mass index (BMI) [Ratio] 35.1 kg/m2 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 Neli Ungerer Work Phone: [facility] 08-30-2023 13:44-0400 Body height 160.02 cm 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 Neli Ungerer Work Phone: [facility] 08-30-2023 13:44-0400 Body weight 90 kg 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 Neli Ungerer Work Phone: [facility] 08-30-2023 00:18-0400 Body temperature 97.6 [degF] 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 Neli Ungerer Work Phone: [facility] 08-30-2023 00:18-0400 Diastolic blood pressure 64 mm[Hg] 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 Neli Ungerer Work Phone: [facility] 08-30-2023 00:18-0400 Heart rate 62 /min 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 Neli Ungerer Work Phone: [facility] 08-30-2023 00:18-0400 Respiratory rate 19 /min 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 Neli Ungerer Work Phone: [facility] 08-30-2023 00:18-0400 SaO2% (BldA) [Mass fraction] 98 % 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 Neli Ungerer Work Phone: [facility] 08-30-2023 00:18-0400 Systolic blood pressure 106 mm[Hg] 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 Neli Ungerer Work Phone: [facility] 08-29-2023 22:16-0400 Body height 160.02 cm 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 Neli Ungerer Work Phone: [facility] 08-29-2023 22:16-0400 Body mass index (BMI) [Ratio] 36.1 kg/m2 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 Neli Petneterer Work Phone: [facility] 08-29-2023 22:16-0400 Body weight 92.4 kg 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 Neli Ungerer Work Phone: [facility] 07-27-2023 15:34-0500 Body mass index (BMI) [Ratio] 35.4 kg/m2 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 Neli Ungerer Work Phone: [facility] 07-27-2023 15:34-0500 Body temperature 98.4 [degF] 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 Neli Mayerer Work Phone: [facility] 07-27-2023 15:34-0500 Body weight 90.71 kg 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 Neli Petneterer Work Phone: [facility] 07-27-2023 15:34-0500 Diastolic blood pressure 78 mm[Hg] 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 Neli Ungerer Work Phone: [facility] 07-27-2023 15:34-0500 Heart rate 114 /min 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 Neli Petneterer Work Phone: [facility] 07-27-2023 15:34-0500 Respiratory rate 16 /min 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 Neli Petneterer Work Phone: [facility] 07-27-2023 15:34-0500 SaO2% (BldA) [Mass fraction] 98 % 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 Neli Laloerer Work Phone: [facility] 07-27-2023 15:34-0500 Systolic blood pressure 122 mm[Hg] 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 Neli Ungerer Work Phone: [facility] 07-18-2023 21:35-0500 Body height 157.48 cm 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 Neli Petneterer Work Phone: [facility] 07-18-2023 21:35-0500 Body mass index (BMI) [Ratio] 37.8 kg/m2 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 Neli Ungerer Work Phone: [facility] 07-18-2023 21:35-0500 Body temperature 96.4 [degF] 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 Neli Ungerer Work Phone: [facility] 07-18-2023 21:35-0500 Body weight 93.89 kg 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 Neli Ungerer Work Phone: [facility] 07-18-2023 21:35-0500 Diastolic blood pressure 71 mm[Hg] 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 Neli Ungerer Work Phone: [facility] 07-18-2023 21:35-0500 Heart rate 76 /min 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 Neli Ungerer Work Phone: [facility] 07-18-2023 21:35-0500 Respiratory rate 18 /min 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 Neli Ungerer Work Phone: [facility] 07-18-2023 21:35-0500 SaO2% (BldA) [Mass fraction] 100 % 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 Neli Ungerer Work Phone: [facility] 07-18-2023 21:35-0500 Systolic blood pressure 127 mm[Hg] 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 Neli Ungerer Work Phone: [facility] 07-16-2023 12:43-0500 Body temperature 99.6 [degF] 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 Neli Ungerer Work Phone: [facility] 07-16-2023 12:43-0500 Diastolic blood pressure 74 mm[Hg] 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 Neli Ungerer Work Phone: [facility] 07-16-2023 12:43-0500 Heart rate 97 /min 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 Neli Ungerer Work Phone: [facility] 07-16-2023 12:43-0500 Respiratory rate 12 /min 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 Neli Ungerer Work Phone: [facility] 07-16-2023 12:43-0500 SaO2% (BldA) [Mass fraction] 97 % 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 Neli Ungerer Work Phone: [facility] 07-16-2023 12:43-0500 Systolic blood pressure 110 mm[Hg] 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 Neli Ungerer Work Phone: [facility] 06-02-2023 11:53-0500 Body mass index (BMI) [Ratio] 37.8 kg/m2 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 Neli Ungerer Work Phone: [facility] 06-02-2023 11:53-0500 Body temperature 99.4 [degF] 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 Neli Ungerer Work Phone: [facility] 06-02-2023 11:53-0500 Body weight 93.89 kg 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 Neli Ungerer Work Phone: [facility] 06-02-2023 11:53-0500 Diastolic blood pressure 64 mm[Hg] 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 Neli Ungerer Work Phone: [facility] 06-02-2023 11:53-0500 Heart rate 86 /min 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 Neli Ungerer Work Phone: [facility] 06-02-2023 11:53-0500 Respiratory rate 16 /min 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 Neli Ungerer Work Phone: [facility] 06-02-2023 11:53-0500 SaO2% (BldA) [Mass fraction] 98 % 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 Neli Ungerer Work Phone: [facility] 06-02-2023 11:53-0500 Systolic blood pressure 102 mm[Hg] 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 Neli Ungerer Work Phone: [facility] 05-22-2023 15:06-0500 Body temperature 98.7 [degF] 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 Neli Ungerer Work Phone: [facility] 05-22-2023 15:06-0500 Diastolic blood pressure 77 mm[Hg] 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 Neli Ungerer Work Phone: [facility] 05-22-2023 15:06-0500 Heart rate 91 /min 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 Neli Ungerer Work Phone: [facility] 05-22-2023 15:06-0500 Respiratory rate 12 /min 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 Neli Ungerer Work Phone: [facility] 05-22-2023 15:06-0500 SaO2% (BldA) [Mass fraction] 96 % 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 Neli Ungerer Work Phone: [facility] 05-22-2023 15:06-0500 Systolic blood pressure 109 mm[Hg] 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 Neli Ungerer Work Phone: [facility] 04-29-2023 21:05-0500 Body height 160.02 cm 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 Neli Ungerer Work Phone: [facility] 04-29-2023 21:05-0500 Body mass index (BMI) [Ratio] 38.9 kg/m2 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 Neli Ungerer Work Phone: [facility] 04-29-2023 21:05-0500 Body temperature 96.3 [degF] 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 Neli Ungerer Work Phone: [facility] 04-29-2023 21:05-0500 Body weight 99.6 kg 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 Neli Ungerer Work Phone: [facility] 04-29-2023 21:05-0500 Diastolic blood pressure 62 mm[Hg] 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 Neli Ungerer Work Phone: [facility] 04-29-2023 21:05-0500 Heart rate 69 /min 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 Neli Ungerer Work Phone: [facility] 04-29-2023 21:05-0500 Respiratory rate 14 /min 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 Neli Ungerer Work Phone: [facility] 04-29-2023 21:05-0500 SaO2% (BldA) [Mass fraction] 99 % 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 Neli Ungerer Work Phone: [facility] 04-29-2023 21:05-0500 Systolic blood pressure 127 mm[Hg] 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 Neli Ungerer Work Phone: [facility] 04-25-2023 09:54-0500 Body temperature 98.4 [degF] 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 Neli Ungerer Work Phone: [facility] 04-25-2023 09:54-0500 Diastolic blood pressure 74 mm[Hg] 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 Neli Ungerer Work Phone: [facility] 04-25-2023 09:54-0500 Heart rate 99 /min 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 Neli Ungerer Work Phone: [facility] 04-25-2023 09:54-0500 Respiratory rate 12 /min 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 Neli Ungerer Work Phone: [facility] 04-25-2023 09:54-0500 SaO2% (BldA) [Mass fraction] 97 % 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 Neli Ungerer Work Phone: [facility] 04-25-2023 09:54-0500 Systolic blood pressure 118 mm[Hg] 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 Neli Ungerer Work Phone: [facility] 03-16-2023 13:38-0400 Body temperature 97.4 [degF] 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 Neli Ungerer Work Phone: [facility] 03-16-2023 13:38-0400 Diastolic blood pressure 73 mm[Hg] 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 Neli Ungerer Work Phone: [facility] 03-16-2023 13:38-0400 Heart rate 94 /min 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 Neli Ungerer Work Phone: [facility] 03-16-2023 13:38-0400 Respiratory rate 18 /min 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 Neli Tripp Work Phone: [facility] 03-16-2023 13:38-0400 SaO2% (BldA) [Mass fraction] 97 % 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 Neli Tripp Work Phone: [facility] 03-16-2023 13:38-0400 Systolic blood pressure 103 mm[Hg] 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 Neli Tripp Work Phone: [facility] 03-16-2023 12:46-0400 Body mass index (BMI) [Ratio] 35.1 kg/m2 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 Neli Tripp Work Phone: [facility] 03-16-2023 10:47-0400 Body weight 90 kg 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 Neli Tripp Work Phone: [facility] 03-15-2023 22:15-0400 Diastolic blood pressure 65 mm[Hg] [facility] 03-15-2023 22:15-0400 Heart rate 67 /min [facility] 03-15-2023 22:15-0400 Respiratory rate 15 /min [facility] 03-15-2023 22:15-0400 SaO2% (BldA) [Mass fraction] 98 % [facility] 03-15-2023 22:15-0400 Systolic blood pressure 135 mm[Hg] [facility] 03-15-2023 21:53-0400 Body temperature 98 [degF] [facility] 03-15-2023 20:02-0400 Body mass index (BMI) [Ratio] 38.9 kg/m2 [facility] 03-15-2023 20:02-0400 Body weight 99.9 kg [facility] 03-15-2023 19:57-0400 Body height 160.02 cm [facility] 12-08-2022 11:36-0400 Body temperature 98.42 [degF] LES MICHEL DO [facility] 12-08-2022 11:36-0400 Diastolic Blood Pressure Non-Invasive 91 1 LES MICHEL DO [facility] 12-08-2022 11:36-0400 Heart rate 91 /min LES MICHEL DO [facility] 12-08-2022 11:36-0400 Respiratory rate 18 /min LES MICHEL DO [facility] 12-08-2022 11:36-0400 Systolic Blood Pressure Non-Invasive 138 1 LES MICHEL DO [facility] 12-08-2022 07:11-0400 Body temperature 98.24 [degF] LES MICHEL DO [facility] 12-08-2022 07:11-0400 Diastolic Blood Pressure Non-Invasive 85 1 LES MICHEL DO [facility] 12-08-2022 07:11-0400 Heart rate 86 /min LES MICHEL DO [facility] 12-08-2022 07:11-0400 Respiratory rate 18 /min LES MICHEL DO [facility] 12-08-2022 07:11-0400 Systolic Blood Pressure Non-Invasive 126 1 LES MICHEL DO [facility] 12-08-2022 03:36-0400 Body temperature 98.96 [degF] LES MICHEL DO [facility] 12-08-2022 03:36-0400 Diastolic Blood Pressure Non-Invasive 87 1 LES MICHEL DO [facility] 12-08-2022 03:36-0400 Heart rate 90 /min LES MICHEL DO [facility] 12-08-2022 03:36-0400 Respiratory rate 20 /min LES MICHEL DO [facility] 12-08-2022 03:36-0400 Systolic Blood Pressure Non-Invasive 130 1 LES MICHEL DO [facility] 12-07-2022 23:00-0400 Heart rate 76 /min LES MICHEL DO [facility] 12-07-2022 19:28-0400 Heart rate 81 /min LES MICHEL DO [facility] 12-07-2022 14:56-0400 Body height 160 cm LES MICHEL DO [facility] 12-07-2022 14:56-0400 Body weight 101 kg LES MICHEL DO [facility] 12-07-2022 14:56-0400 Body weight 39.45 kg/m2 LES MICHEL DO [facility] 12-07-2022 14:17-0400 Heart rate 74 /min LES MICHEL DO [facility] 12-07-2022 10:45-0400 Body temperature 97.16 [degF] LES MICHEL DO [facility] 12-07-2022 10:40-0400 Respiratory Rate - Anes 0 br/min LES MICHEL DO [facility] 12-07-2022 10:35-0400 Respiratory Rate - Anes 18 br/min LES MICHEL DO [facility] 12-07-2022 10:30-0400 Respiratory Rate - Anes 16 br/min LES MICHEL DO [facility] 12-07-2022 06:50-0400 Body height 160 cm LES MICHEL DO [facility] 12-07-2022 06:50-0400 Body temperature 97.16 [degF] LES MICHEL DO [facility] 12-07-2022 06:50-0400 Body weight 101 kg LES MICHEL DO [facility] 12-07-2022 06:50-0400 Heart rate 72 /min LES MICHEL DO [facility] 11-25-2022 13:22-0400 Blood Pressure Location LES MICHEL DO [facility] 11-25-2022 13:22-0400 Body height 160 cm LES MICHEL DO [facility] 11-25-2022 13:22-0400 Body weight 100.7 kg LES MICHEL DO [facility] 11-25-2022 13:22-0400 Body weight 39.34 kg/m2 LES MICHEL DO [facility] 11-25-2022 13:22-0400 Diastolic Blood Pressure Non-Invasive 68 1 LES MICHEL DO [facility] 11-25-2022 13:22-0400 Heart rate 97 /min LES MICHEL DO [facility] 11-25-2022 13:22-0400 Respiratory rate 20 /min LES MICHEL DO [facility] 11-25-2022 13:22-0400 Systolic Blood Pressure Non-Invasive 106 1 LES MICHEL DO [facility] 05-06-2022 23:22-0500 Body height 160.[address] Loretta Hermosillo Work Phone: [facility] Work Phone: 05-06-2022 23:22-0500 Body mass index (BMI) [Ratio] 36.3 kg/m2 Dr. Loretta Hermosillo Work Phone: [facility] Work Phone: 05-06-2022 23:22-0500 Body temperature 96.3 [degF] Dr. Loretta Hermosillo Work Phone: [facility] Work Phone: 05-06-2022 23:22-0500 Body weight 92.[address] Loretta Hermosillo Work Phone: [facility] Work Phone: 05-06-2022 23:22-0500 Diastolic blood pressure 80 mm[Hg] Dr. Loretta Hermosillo Work Phone: [facility] Work Phone: 05-06-2022 23:22-0500 Heart rate 85 /min Dr. Loretta Hermosillo Work Phone: [facility] Work Phone: 05-06-2022 23:22-0500 Respiratory rate 16 /min Dr. Loretta Hermosillo Work Phone: [facility] Work Phone: 05-06-2022 23:22-0500 SaO2% (BldA) [Mass fraction] 98 % Dr. Loretta Hermosillo Work Phone: [facility] Work Phone: 05-06-2022 23:22-0500 Systolic blood pressure 113 mm[Hg] Dr. Loretta Hermosillo Work Phone: [facility] Work Phone: Encounters Encounter Date Encounter Type Care Provider Facility Start: 01-15-2025 End: 01-15-2025 [facility] Facility:[facility] Start: 01-15-2025 End: 01-20-2025 [facility] Facility:[facility] Comment on above: Refill Request Start: 01-11-2025 End: 01-11-2025 Subsequent hospital visit by physician Rafael [facility] Work Phone: Radiology Comment on above: Acute right ankle pa in [M25.571] Start: 01-11-2025 End: 01-11-2025 Patient encounter procedure Jay Delgado MICHAEL Work Phone: [facility] [place] Comment on above: Acute right ankle pa in (Primary Dx) Start: 01-11-2025 End: 01-11-2025 ambulatory JAY LILAW Facility:[facility] Start: 01-08-2025 End: 01-08-2025 Telephone encounter Antwon Calderon MD Work Phone: Dermatology Start: 01-02-2025 End: 01-02-2025 Subsequent hospital visit by physician Rafael [facility] [place] Work Phone: Radiology Comment on above: Pain in joint, multi ple sites [M25.50] Start: 01-02-2025 End: 01-02-2025 [facility] Facility:[facility] Start: 01-02-2025 End: 01-02-2025 Patient encounter procedure Pramod Gomez PA-C Work Phone: Rheumatology Comment on above: Pain in joint, multi ple sites (Primary Dx); Pain in right hip; Sacroiliac pain; Right leg paresthesias; History of carpal tunnel syndrome; History of DVT (deep vein thrombosis); History of pulmonary embolism; Lupus anticoagulant disorder (HCC); Livedo reticularis; Rash and nonspecific skin eruption Start: 01-02-2025 End: 01-02-2025 ambulatory [facility] Facility:[facility] Start: 01-01-2025 End: 01-01-2025 Telemedicine consultation with patient Nick Rachel MD Work Phone: [facility] Start: 01-01-2025 End: 01-01-2025 ambulatory Nick Rachel MD Work Phone: [facility] Comment on above: Abnormal finding on MRI of brain (Primary Dx) Start: 12-30-2024 End: 12-30-2024 ambulatory [facility] Facility:[facility] Start: 12-30-2024 End: 12-30-2024 Subsequent hospital visit by physician Mri [facility] Wstr (I-Stat/1.5t) Work Phone: Radiology Start: 12-26-2024 End: 12-26-2024 ambulatory [facility] Start: 12-26-2024 Encounter for gynecological examination (general) (routine) without abnormal findings [facility] Start: 12-18-2024 End: 12-18-2024 Patient encounter procedure Nick Rachel MD Work Phone: [facility] Comment on above: White matter abnorma lity on MRI of brain (Primary Dx); Facial numbness; Facial weakness; Sensory deficit, right Start: 12-18-2024 End: 12-18-2024 ambulatory NICK RACHEL Facility:[facility] Start: 12-05-2024 End: 12-05-2024 E-mail encounter from caregiver Pramod Gomez PA-C Work Phone: Rheumatology Start: 12-05-2024 End: 12-05-2024 Patient encounter procedure Pramod Gomez PA-C Work Phone: Rheumatology Comment on above: Upcoming Rheumatolog y Appointment Start: 12-03-2024 End: 12-05-2024 ambulatory Janet Fernandez APRN.CNP Work Phone: Neurology Comment on above: MRI results Start: 11-14-2024 End: 11-14-2024 Patient encounter procedure Janet Fernandez 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 Phone: Neurology Comment on above: Abnormal finding on MRI of brain (Primary Dx); Facial weakness; Facial numbness; Speech disturbance, unspecified type; Migraine without aura and without status migrainosus, not intractable; History of TIA (transient ischemic attack) Start: 11-14-2024 End: 11-14-2024 ambulatory NELI TRIPP Facility:[facility] Start: 10-25-2024 End: 10-25-2024 ambulatory Antwon Escobedo PA-C Work Phone: Neurology Comment on above: Chronic migraine wit hout aura with status migrainosus, not intractable (Primary Dx) Start: 10-25-2024 End: 10-25-2024 Telemedicine consultation with patient Antwon Escobedo PA-C Work Phone: Neurology Start: 10-23-2024 Non-patient / Non-visit Dr. Taye Delvalle MD -[facility] Work Phone: Start: 10-23-2024 ambulatory No Primary Car e Physician [place] Start: 10-23-2024 Non-patient / Non-visit Dr. Hal GEORGE [facility] Start: 10-22-2024 End: 10-23-2024 ambulatory Farhana Harden Facility:[facility] Start: 10-22-2024 End: 10-23-2024 Evaluation and management of inpatient Dr. Farhana Harden DO -Progressive Care Unit Work Phone: Start: 10-22-2024 End: 10-23-2024 observation encounter Neli Tripp BOOKING MANAGER-C Work Phone: [facility] Work Phone: Start: 10-15-2024 End: 10-15-2024 Telephone encounter Kirby Monge MD Work Phone: Neurology Comment on above: Medication Authoriza tion Start: 10-14-2024 ambulatory Jarrod ROSADO Facility :[facility] Start: 10-14-2024 Registered Recurring Jarrod ROSADO -Physical Therapy Work Phone: Start: 09-22-2024 End: 09-22-2024 Emergency department patient visit BOOKING MANAGERSandra Tripp NP-C Work Phone: -Emergency Department Work Phone: Start: 09-20-2024 Registered Recurring Jarrod ROSADO -Physical Therapy Work Phone: Start: 09-14-2024 End: 09-16-2024 Refill Kirby Monge MD Work Phone: Neurology Comment on above: Refill Request Start: 09-07-2024 End: 09-07-2024 Patient encounter procedure Katheryn HALL [facility] Work Phone: Start: 09-07-2024 End: 09-07-2024 ambulatory Neli Tripp [place] Start: 08-28-2024 End: 08-28-2024 ambulatory CHARLINE WOOTEN Facility:[facility] Start: 08-23-2024 End: 08-23-2024 Patient encounter procedure Jarrod ROSADO [facility] Work Phone: Start: 08-23-2024 End: 08-23-2024 ambulatory Jarrod ROSADO [place] Start: 08-17-2024 End: 08-17-2024 Emergency department patient visit BOOKING MANAGERSandra Tripp NP-C Work Phone: -Emergency Department Work Phone: Start: 07-29-2024 End: 07-29-2024 Subsequent hospital visit by physician Rafael [facility] Work Phone: Radiology Comment on above: Right wrist pain [M2 5.531] Start: 07-29-2024 End: 07-29-2024 Office outpatient visit 25 minutes Jeovany Joseph PA-C Work Phone: [facility] Comment on above: Right wrist pain (Pr imary Dx) Start: 07-29-2024 End: 07-29-2024 ambulatory NELI D UNGERER Facility:[facility] Start: 07-18-2024 End: 07-18-2024 Subsequent hospital visit by physician Rafael [facility] Jesús Work Phone: Radiology Comment on above: URI, acute [J06.9] Start: 07-18-2024 End: 07-18-2024 ambulatory NELI D UNGERER Facility:[facility] Start: 07-18-2024 End: 07-18-2024 Patient encounter procedure Neli Redd 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 Phone: [facility] Comment on above: URI, acute (Primary Dx); Acute cough Start: 07-18-2024 End: 07-18-2024 Telephone encounter Neli Redd 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 Phone: [facility] Comment on above: Results Start: 07-14-2024 End: 07-15-2024 Telephone encounter Paty Arciniega DO Work Phone: Hematology/Oncology Comment on above: Results Start: 06-27-2024 End: 06-27-2024 Telephone encounter Les Mckeon 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 Phone: [facility] Comment on above: Results Start: 06-26-2024 End: 06-26-2024 ambulatory NELI D UNGERER Facility:[facility] Start: 06-26-2024 End: 06-26-2024 Office outpatient new 30 minutes Jeovany Joseph PA-C Work Phone: [facility] Comment on above: COVID-19 virus infec tion (Primary Dx) Start: 06-21-2024 End: 06-21-2024 ambulatory NELI D UNGERER Facility:[facility] Start: 06-19-2024 End: 06-19-2024 Patient encounter procedure [facility] Work Phone: Start: 06-19-2024 End: 06-19-2024 ambulatory Neli Ungerer [place] Start: 06-12-2024 End: 06-13-2024 Telephone encounter Paty Arciniega DO Work Phone: Hematology/Oncology Comment on above: Results Start: 05-31-2024 End: 05-31-2024 Visit (SP) Office Paty Arciniega DO Work Phone: Hematology/Oncology Comment on above: History of DVT of lo wer extremity (Primary Dx); Factor V Leiden (HCC); Lupus anticoagulant disorder (HCC) Start: 05-24-2024 End: 05-24-2024 Subsequent hospital visit by physician Xr [facility] Jes[facility]s Work Phone: Radiology Comment on above: Injury of right shou lder, initial encounter [S49.91XA] Start: 05-24-2024 End: 05-24-2024 ambulatory NELI TRIPP Facility:[facility] Start: 05-24-2024 End: 05-24-2024 Office outpatient visit 15 minutes Les Mckeon APRN.PLUCK SEPARATOR Work Phone: [facility] Comment on above: Injury of right shou lder, initial encounter (Primary Dx) Start: 04-30-2024 End: 04-30-2024 Telephone encounter Kirby Monge MD Work Phone: Neurology Comment on above: Medication Authoriza tion Start: 04-29-2024 End: 04-29-2024 ambulatory Janet Fernandez APRN.PLUCK SEPARATOR Work Phone: Neurology Comment on above: Nurtec Start: 04-11-2024 End: 04-11-2024 Telephone encounter Crissy Bell APRN.PLUCK SEPARATOR Work Phone: [facility] Comment on above: Results Start: 04-10-2024 End: 04-10-2024 Subsequent hospital visit by physician Xr [facility] [place] Work Phone: Radiology Comment on above: Acute pain of left k nee [M25.562] Start: 04-10-2024 End: 04-10-2024 ambulatory JAY MOOMAW Facility:[facility] Start: 04-10-2024 End: 04-10-2024 Patient encounter procedure Jay Moomaw 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 Phone: [facility] Comment on above: Acute pain of left k nee (Primary Dx) Start: 04-10-2024 End: 04-10-2024 ambulatory Neli Ungerer Facility:[facility] Start: 03-31-2024 End: 04-01-2024 ambulatory Kirby Monge MD Work Phone: Neurology Comment on above: Amavig injection Start: 03-28-2024 End: 03-28-2024 Subsequent hospital visit by physician Rafael [facility] [place] Work Phone: Radiology Comment on above: Acute cough [R05.1] Start: 03-28-2024 End: 03-28-2024 ambulatory NELI D UNGERER Facility:[facility] Start: 03-28-2024 End: 03-28-2024 Patient encounter procedure Neli Redd 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 Phone: [facility] Comment on above: Acute cough (Primary Dx) Start: 03-20-2024 ambulatory Ck Martinez [facility] Start: 03-19-2024 End: 03-20-2024 ambulatory NELI D UNGERER Facility:[facility] Start: 03-19-2024 End: 03-19-2024 Patient encounter procedure Michelle Marvin 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 Phone: [facility] Comment on above: Acute cough (Primary Dx); Rhinosinusitis Start: 03-05-2024 End: 03-05-2024 ambulatory Neli Ungerer [place] Start: 02-28-2024 End: 02-28-2024 Patient encounter procedure Charline Wooten 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 Phone: Cerebrovascular Comment on above: Transient speech dis turbance (Primary Dx); Transient neurological symptoms; Daytime sleepiness; Snoring; Tobacco use disorder Start: 02-28-2024 End: 02-28-2024 ambulatory CHARLINE WOOTEN [facility] Start: 02-21-2024 End: 02-21-2024 ambulatory Neli Ungerer Facility:[facility] Start: 02-04-2024 End: 02-05-2024 Telephone encounter Paty Arciniega DO Work Phone: Hematology/Oncology Comment on above: Follow Up Start: 01-31-2024 ambulatory Neli Ungerer Facilit y:[facility] Start: 01-31-2024 End: 01-31-2024 ambulatory Neli Ungerer Facility:[facility] Start: 01-17-2024 Telephone encounter Paty silverman DO Work Phone: Hematology/Oncology Comment on above: Results Start: 01-11-2024 Telephone encounter Paty silverman DO Work Phone: Hematology/Oncology Comment on above: Follow Up Start: 11-14-2023 End: 11-14-2023 ambulatory Paty Arciniega DO Work Phone: Hematology/Oncology Comment on above: Factor V Leiden (HCC ) (Primary Dx); History of DVT of lower extremity; Pbnhqp-hq-bjhurbneg syndrome (HCC) Start: 11-14-2023 End: 11-14-2023 Patient encounter procedure Paty Huber Pedro DO Work Phone: Hematology/Oncology Start: 10-26-2023 Telephone encounter Neptali tyler MD Work Phone: Hematology/Oncology Comment on above: New Patient Start: 10-25-2023 Telephone encounter Elizabeth tom MD Work Phone: Cerebrovascular Comment on above: Consult Start: 10-25-2023 End: 10-25-2023 Patient encounter procedure Elizabeth Marques MD Work Phone: Cerebrovascular Comment on above: Ljbxpy-gp-jvbubxgiu syndrome (HCC) (Primary Dx); Facial weakness; Facial numbness; Speech disturbance, unspecified type; Nicotine abuse [Z72.0] Start: 10-25-2023 End: 10-25-2023 ambulatory ELIZABETH MARQUES [facility] [place] Start: 10-20-2023 ambulatory Kirby Monge MD Work Phone: Neurology Comment on above: Aimovig approved Start: 10-20-2023 E-mail encounter kelvin m caregiver Kirby Monge MD Work Phone: Neurology Start: 10-02-2023 End: 10-02-2023 ambulatory Kirby Monge MD Work Phone: Neurology Comment on above: Chronic migraine wit hout aura with status migrainosus, not intractable Start: 10-02-2023 End: 10-02-2023 Telemedicine consultation with patient Kirby Monge MD Work Phone: Neurology Start: 09-25-2023 [facility] Work Phone: Neurology Start: 09-14-2023 End: 09-14-2023 Patient encounter procedure Janet Fernandez APRN.PLUCK SEPARATOR Work Phone: Neurology Comment on above: Facial weakness (Nhi kiko Dx); Facial numbness; Sensory deficit, right; Memory change; Migraine without aura and without status migrainosus, not intractable; Other fatigue; Snoring; Speech disturbance, unspecified type Start: 08-29-2023 End: 08-30-2023 Evaluation and management of inpatient 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 Neli Tripp Work Phone: [facility] Work Phone: Start: 08-29-2023 End: 08-30-2023 observation encounter 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 Neli Tripp Work Phone: [facility] Work Phone: Start: 08-28-2023 Telephone encounter Janet Dominguez APRN.PLUCK SEPARATOR Work Phone: Neurology Start: 07-27-2023 End: 07-27-2023 Patient encounter procedure 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 Neli Plascenciar Work Phone: [facility] Work Phone: Start: 07-18-2023 End: 07-18-2023 Emergency department patient visit 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 Neli Plascenciar Work Phone: [facility]Emergency Department Work Phone: Start: 07-16-2023 End: 07-16-2023 Patient encounter procedure 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 Neli Plascenciar Work Phone: [facility] Work Phone: Start: 06-02-2023 End: 06-02-2023 Patient encounter procedure 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 Neli Plascencialisa Work Phone: [facility] Work Phone: Start: 05-22-2023 End: 05-22-2023 Patient encounter procedure 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 Neli Plascencialisa Work Phone: [facility] Work Phone: Start: 05-22-2023 Non-patient / Non-visit 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 Jeb Mayjagdish Work Phone: [facility] Work Phone: Start: 05-16-2023 End: 05-17-2023 ambulatory JANET FERNANDEZ Facility:[facility] Start: 05-12-2023 Telephone encounter Janet Dominguez 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 Phone: Neurology Comment on above: Insurance Authorizat ion (Authorization for MRI received. /Auth # [id number]) Start: 04-29-2023 End: 04-29-2023 Emergency department patient visit 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 Neli Mayjagdish Work Phone: [facility] Work Phone: Start: 04-25-2023 End: 04-25-2023 Patient encounter procedure 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 Neli Plascencialisa Work Phone: [facility] Work Phone: Start: 03-30-2023 Telephone encounter Neurology Provid er Neurology Comment on above: Referral Request Start: 03-16-2023 Non-patient / Non-visit 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 Jeb gale Lalojagdish Work Phone: [facility] Work Phone: Start: 03-16-2023 Non-patient / Non-visit 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 Jeb Tripp Work Phone: [facility] Start: 03-15-2023 End: 03-16-2023 Evaluation and management of inpatient [facility] Work Phone: Start: 03-15-2023 observation encounter [facility] Work Phone: Start: 12-07-2022 End: 12-08-2022 ambulatory JAYDE ALCAZAR HAIR TINTER-PLUCK SEPARATOR Facility:B Start: 12-07-2022 End: 12-08-2022 Observation LES MICHEL [facility] Start: 11-25-2022 End: 11-26-2022 ambulatory [facility] PA-C Facility:B Start: 11-25-2022 End: 11-26-2022 ambulatory [facility] Facility:B Start: 11-25-2022 End: 11-25-2022 Patient encounter procedure LES MICHEL [facility] Start: 11-25-2022 End: 11-25-2022 Admission to establishment LES MICHEL [facility] Start: 05-06-2022 End: 05-07-2022 Emergency department patient visit Dr. Loretta Hermosillo Work Phone: [facility]Emer[facility] Department Start: 03-28-2022 Non-patient / Non-visit Dr. Jeb Hermosillo Work Phone: [facility] Start: 03-28-2022 End: 03-28-[address] Loretta Hermosillo Work Phone: [facility] Work Phone: Start: 03-28-2022 End: 03-28-[address] Loretta Hermosillo Work Phone: [facility]Pulmonary Services/Neurology Procedures Date Procedure Procedure Detail Performing Clinician Start: 01-11-2025 Radex ankle complete minimum 3 views Jay Moomaw 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 Phone: Start: 12-30-2024 Mri spinal canal cer vical w/o & w/contr matrl Janet Fernandez 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 Phone: Start: 10-23-2024 MRI of brain with contrast Neli Ungerer BOOKING MANAGER-C Work Phone: Start: 10-23-2024 Estimated creatinine clearance Neli Ungerer BOOKING MANAGER-C Work Phone: Start: 10-23-2024 Lymphocyte percent differential count Neli Ungerer BOOKING MANAGER-C Work Phone: Start: 10-23-2024 Serum inorganic phos phate measurement Neli Ungerer BOOKING MANAGER-C Work Phone: Start: 10-22-2024 CT angiography of he ad and neck Neli Ungerer BOOKING MANAGER-C Work Phone: Start: 10-22-2024 CT of head without contrast Neli Ungerer BOOKING MANAGER-C Work Phone: Start: 10-22-2024 Estimated creatinine clearance Neli Ungerer BOOKING MANAGER-C Work Phone: Start: 10-22-2024 Lymphocyte percent differential count Neli Ungerer BOOKING MANAGER-C Work Phone: Start: 09-22-2024 Plain x-ray of wrist BOOKING MANAGER . Neli Ungerer BOOKING MANAGER-C Work Phone: Start: 07-29-2024 Radex wrist complete minimum 3 views Jeovany Clutter PA-C Work Phone: Start: 07-18-2024 Radiologic exam ches t 2 views Neli Redd 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 Phone: Start: 07-18-2024 STREP A MOLECULAR (POC) Neli Redd 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 Phone: Start: 05-24-2024 Radex shoulder compl ete minimum 2 views Les Mckeon 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 Phone: Start: 04-10-2024 Radiologic exam knee complete 4/more views Jay Wilcoxomaw 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 Phone: Start: 03-28-2024 Radiologic exam ches t 2 views Neli Redd 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 Phone: Start: 02-28-2024 Follow-up visit Follow Up URSZULA WOOTEN Start: 08-30-2023 MRI of brain with contrast 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 Neli Mayerer Work Phone: Start: 08-30-2023 CT angiography of he ad and neck 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 Neli Ungerer Work Phone: Start: 08-29-2023 Plain chest X-ray 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 Merline bautista Ungerer Work Phone: Start: 08-29-2023 CT of head without contrast 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 Neli Mayerer Work Phone: Start: 04-29-2023 X-ray of both feet 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 Neli Ungerer Work Phone: Start: 03-15-2023 MRI of brain without contrast 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 Neli Mayerer Work Phone: Start: 03-15-2023 Plain chest X-ray Start: 03-15-2023 CT angiography of he ad and neck Start: 03-15-2023 CT of head without contrast Start: 03-15-2023 Urine culture 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 Christa Mayerer Work Phone: Start: 12-07-2022 Discectomy ant dcmpr n cord cervical ea ntrspc LES MICHEL DO Comment on above: C5-6, C6-7 Start: 05-06-2022 X-ray of both feet Dr. Loretta Hermosillo Work Phone: Cystoscopy LES MICHEL D O Decompression of med parish nerve LES MICHEL DO Comment on above: bilateral Extracorporeal shock wave lithotripsy of ureter LES MICHEL DO Comment on above: with ureteral stent, x2 Wedge excision skin nail fold LES MICHEL DO Plan of Treatment Date Care Activity Detail Author Start: 06-08-2026 Urine microalbumin profile DTaP,Tdap,Td Vaccine (2 - Td or Tdap) [facility] Start: 08-28-2025 End: 08-28-2025 Patient encounter procedure 08/28/2025 1:30 PM EDT Office Visit Cerebrovascular [address] [place], [place] [id number] Charline Wooten APRN.PLUCK SEPARATOR [address] Jeffrey [address] [place] [phone] 1 year follow up Cerebrovascular Comment on above: 1 year follow up Start: 03-21-2025 End: 03-21-2025 Patient encounter procedure 03/21/2025 12:45 PM EDT Office [facility] [address] [facility] [employer] [facility] [address] [place], [place] [id number] Antwon Calderon MD [address] [place] [address] [place], [place] [id number] Rash, spreading Dermatology Comment on above: Rash, spreading Start: 02-20-2025 End: 02-20-2025 Follow-up encounter Neurology Comment on above: follow up medication check Start: 02-17-2025 End: 02-17-2025 Patient encounter procedure 02/17/2025 1:00 PM EDT Office Visit Rheumatology [address] [place] [address] Kelly Sheldon MD [address] [place] [address], [place] [id number] NEW CONSULT Rheumatology Comment on above: NEW CONSULT Start: 02-10-2025 Influenza vaccination [facility] Start: 01-24-2025 End: 01-24-2025 Patient encounter procedure 01/24/2025 1:00 PM EDT Appointment Radiology [address] [place] [address] Pain in joint, multiple sites [M25.50] Radiology Comment on above: Pain in joint, multiple sites [M25.50] Start: 01-15-2025 End: 01-15-2025 Patient encounter procedure 01/15/2025 2:00 PM EDT Office Visit Rheumatology [address] [place] [id number] Praomd Gomez PA-C [address] [place] [phone] 2 - 3 weeks follow up Rheumatology Comment on above: 2 - 3 weeks follow up Start: 01-02-2025 End: 04-03-2025 ALFONZO BY IFA SCREEN [facility] Comment on above: Expected: 01/02/2025, Expires: Start: 01-02-2025 End: 04-03-2025 C reactive protein [Mass/volume] in Serum or Plasma [facility] Comment on above: Expected: 01/02/2025, Expires: Start: 01-02-2025 End: 04-03-2025 Complement C3 [Mass/volume] in Serum or Plasma [facility] Comment on above: Expected: 01/02/2025, Expires: Start: 01-02-2025 End: 04-03-2025 Complement C4 [Mass/volume] in Serum or Plasma [facility] Comment on above: Expected: 01/02/2025, Expires: Start: 01-02-2025 End: 04-03-2025 Cyclic citrullinated peptide IgG Ab [Units/volume] in Serum or Plasma [facility] Comment on above: Expected: 01/02/2025, Expires: Start: 01-02-2025 End: 04-03-2025 DNA double strand Ab [Units/volume] in Serum by Immunoassay [facility] Comment on above: Expected: 01/02/2025, Expires: Start: 01-02-2025 End: 04-03-2025 Extractable nuclear Ab panel - Serum [facility] Comment on above: Expected: 01/02/2025, Expires: Start: 01-02-2025 End: 01-02-2025 Patient encounter procedure 01/02/2025 2:00 PM EDT Office Visit Rheumatology [address] [place] [place] [address] Pramod Gomez PA-C [address] [place] [address] RA rescheduled frm 12/11 Rheumatology Comment on above: RA rescheduled frm 12/11 Start: 01-02-2025 End: 04-03-2025 Protein/Creatinine [Mass Ratio] in Urine [facility] Comment on above: Expected: 01/02/2025, Expires: Start: 01-02-2025 End: 04-03-2025 Rheumatoid factor [Units/volume] in Serum or Plasma [facility] Comment on above: Expected: 01/02/2025, Expires: Start: 01-01-2025 End: 01-01-2025 Follow-up encounter 01/01/2025 2:00 [place] [address] Nick Rachel MD [address] [place] [address] [facility] Comment on above: Follow up with mriv Start: 12-30-2024 End: 12-30-2024 Patient encounter procedure 12/30/2024 2:30 PM EDT Appointment Radiology [address] [place] [address] [place] [address] MRI THORACIC SPINE WO/W IVCON Radiology Comment on above: MRI THORACIC SPINE WO/W IVCON Start: 12-11-2024 End: 12-11-2024 Patient encounter procedure 12/11/2024 1:00 PM EDT Office Visit Rheumatology [address] [place] [address] [place] [address] Pramod Gomez PA-C [address] [place] [address] RA Rheumatology Comment on above: RA Start: 11-14-2024 End: 11-14-2024 Patient encounter procedure 11/14/2024 10:00 AM EDT Office Visit Neurology [address] [place] [address] Janet Fernandez APRN.PLUCK SEPARATOR [address] [address] New ER/HD Follow Up Visit - [facility] Neurology Comment on above: New ER/HD Follow Up Visit - [facility] Start: 10-23-2024 Patient discharge [facility] Start: 10-22-2024 End: 10-22-2024 [facility] Start: 10-22-2024 Following clinical pathway protocol [facility] Start: 10-22-2024 Aspiration precautions [facility] Start: 10-22-2024 Assessment of risk of venous thromboembolism [facility] Start: 10-22-2024 Cardiac monitoring [facility] Start: 10-22-2024 Catheterization of vein [facility] Start: 10-22-2024 Consultation [facility] Start: 10-22-2024 Continuous pulse oximetry [facility] Start: 10-22-2024 Elevation of head of bed [facility] Start: 10-22-2024 Exercises [facility] Start: 10-22-2024 Incentive spirometry [facility] Start: 10-22-2024 Inhalation therapy procedure [facility] Start: 10-22-2024 Insertion of catheter into peripheral vein [facility] Start: 10-22-2024 Measuring intake and output [facility] Start: 10-22-2024 Notification of physician [facility] Start: 10-22-2024 Oxygen therapy [facility] Start: 10-22-2024 Patient referral to dietitian [facility] Start: 10-22-2024 Providing care according to standard [facility] Start: 10-22-2024 Referral to occupational therapist [facility] Start: 10-22-2024 Referral to service [facility] Start: 10-22-2024 Speech therapy assessment [facility] Start: 10-22-2024 Tobacco use cessation education [facility] Start: 10-22-2024 Vital signs measurements [facility] Start: 10-22-2024 MRI of brain with contrast Brain W/WO Contrast [facility] Start: 10-22-2024 Verification routine [facility] Start: 10-22-2024 Hospital admission, emergency, from emergency room, medical nature [facility] Start: 10-22-2024 Admission procedure [facility] Start: 10-22-2024 Oxygen therapy [facility] Start: 10-22-2024 End: 10-22-2024 [facility] Start: 09-22-2024 [facility] Start: 08-28-2024 End: 08-28-2024 Patient encounter procedure 08/28/2024 11:30 AM EDT Office Visit Cerebrovascular [address] [place], [place] [phone] Charline Wooten APRN.PLUCK SEPARATOR [address] [phone] 6 month follow up Cerebrovascular Comment on above: 6 month follow up Start: 08-17-2024 End: 08-17-2024 [facility] Start: 06-21-2024 End: 06-21-2024 ambulatory 06/21/2024 1:30 PM EST Results Only [facility] [address] [place] [address] lab [facility] Comment on above: lab Start: 06-12-2024 End: 09-11-[address] LUPUS ANTICOAG PL Lab Routine Lupus anticoagulant disorder (HCC) Expected: 06/12/2024, Expires: 09/11/2024 [facility] Work Phone: Comment on above: Expected: 06/12/2024, Expires: Start: 06-07-2024 End: 06-07-2024 ambulatory [facility] Comment on above: D Dimer 4 MO OV/LAB EARLY* Start: 05-31-2024 End: 05-31-2024 ambulatory [place] [facility] Laboratory Comment on above: D Dimer 4 MO OV/LAB EARLY* r /s from 06/07 Start: 02-28-2024 End: 02-28-2024 Patient encounter procedure 02/28/2024 11:00 AM EDT Office Visit Cerebrovascular [address] [place] [address] Charline Wooten APRN.PLUCK SEPARATOR [address] [place] [phone] 4 month follow up Cerebrovascular Comment on above: 4 month follow up Start: 02-11-2024 Covid-19 Vaccine ( season) Covid-19 Vaccine ( season) [facility] Start: 02-11-2024 Covid-19 Vaccine ( season) Covid-19 Vaccine () [facility] Start: 02-11-2024 Influenza vaccination Influenza Vaccine (#1) [facility] Start: 01-17-2024 End: 04-17-2024 HYPERCOAG DIAG PNL HYPERCOAG DIAG PNL Lab Routine History of DVT of lower extremity History of embolic stroke Expected: 01/17/2024, Expires: 04/17/2024 [facility] Work Phone: Comment on above: Expected: 01/17/2024, Expires: Start: 01-11-2024 End: 04-11-2024 Fibrin D-dimer FEU [Mass/volume] in Platelet poor plasma D-DIMER Lab Routine History of DVT of lower extremity Expected: 01/11/2024, Expires: 04/11/2024 [facility] Work Phone: Comment on above: Expected: 01/11/2024, Expires: 4 Start: 11-14-2023 End: 11-14-2023 ambulatory 11/14/2023 2:00 PM EDT Visit (SP) Office Hematology/Oncology [address] [place] [address] Paty Arciniega DO [address] [place] [address] Bjgsks-bg-uxozamsaw syndrome (HCC) [I63.9] Hematology/Oncology Comment on above: Ekmjgu-kz-lwfikdeqo syndrome (HCC) [I63. 9] Start: 11-07-2023 End: 11-07-2023 Patient encounter procedure 11/07/2023 12:00 PM EDT Office Visit Cerebrovascular Center [address] [place] [address] Christiano Brennan MD [address] [place] [address] Facial weakness [R29.810] Cerebrovascular Center Comment on above: Facial weakness [R29.810] Start: 10-25-2023 End: 10-25-2023 Patient encounter procedure 10/25/2023 10:00 AM EDT Office Visit Cerebrovascular [address] [place] [address] Elizabeth Marques MD [address] [place] [address] CONSULT TO NEUROLOGY- Cerebrovascular Center Cerebrovascular Comment on above: CONSULT TO NEUROLOGY- Cerebrovascular Ce nter Start: 10-03-2023 End: 10-03-2023 Patient encounter procedure 10/03/2023 10:00 AM EDT Office Visit Neurology [address] [place] [address] Snoring; Other fatigue Neurology Comment on above: Snoring; Other fatigue Start: 08-30-2023 [facility] Start: 08-30-2023 Patient discharge [facility] Start: 08-30-2023 Lamotrigine measurement [facility] Start: 08-30-2023 Assessment of risk of venous thromboembolism [facility] Start: 08-30-2023 Cardiac monitoring [facility] Start: 08-30-2023 Catheterization of vein [facility] Start: 08-30-2023 Continuous pulse oximetry [facility] Start: 08-30-2023 Elevation of head of bed [facility] Start: 08-30-2023 Exercises [facility] Start: 08-30-2023 Fall prevention [facility] Start: 08-30-2023 Implementation of planned interventions [facility] Start: 08-30-2023 Incentive spirometry [facility] Start: 08-30-2023 Insertion of catheter into peripheral vein [facility] Start: 08-30-2023 Introduction of urinary catheter [facility] Start: 08-30-2023 Measuring intake and output [facility] Start: 08-30-2023 Notification of physician [facility] Start: 08-30-2023 Patient referral to dietitian [facility] Start: 08-30-2023 Providing care according to standard [facility] Start: 08-30-2023 Provision of activity privileges [facility] Start: 08-30-2023 Referral to occupational therapist [facility] Start: 08-30-2023 Referral to service [facility] Start: 08-30-2023 Speech therapy assessment [facility] Start: 08-30-2023 Telemedicine consultation with patient [facility] Start: 08-30-2023 Tobacco use cessation education [facility] Start: 08-30-2023 Following clinical pathway protocol [facility] Start: 08-29-2023 Admission procedure [facility] Start: 08-29-2023 End: 08-29-2023 Hospital admission, emergency, from emergency room, medical nature [facility] Start: 08-29-2023 End: 08-30-2023 Oxygen therapy [facility] Start: 08-29-2023 End: 08-30-2023 [facility] Start: 07-18-2023 [facility] Start: 06-12-2023 Depression Assessment Depression Assessment [facility] Start: 04-29-2023 [facility] Start: 03-16-2023 Patient discharge [facility] Start: 03-15-2023 Following clinical pathway protocol [facility] Start: 03-15-2023 Aspiration precautions [facility] Start: 03-15-2023 Assessment of risk of venous thromboembolism [facility] Start: 03-15-2023 Cardiac monitoring [facility] Start: 03-15-2023 Catheterization of vein [facility] Start: 03-15-2023 Continuous pulse oximetry [facility] Start: 03-15-2023 Elevation of head of bed [facility] Start: 03-15-2023 Exercises [facility] Start: 03-15-2023 Fall prevention [facility] Start: 03-15-2023 Implementation of planned interventions [facility] Start: 03-15-2023 Incentive spirometry [facility] Start: 03-15-2023 Inhalation therapy procedure [facility] Start: 03-15-2023 Insertion of catheter into peripheral vein [facility] Start: 03-15-2023 Introduction of urinary catheter [facility] Start: 03-15-2023 Measuring intake and output [facility] Start: 03-15-2023 Notification of physician [facility] Start: 03-15-2023 Oxygen therapy [facility] Start: 03-15-2023 Patient referral to dietitian [facility] Start: 03-15-2023 Providing care according to standard [facility] Start: 03-15-2023 Provision of activity privileges [facility] Start: 03-15-2023 Referral to occupational therapist [facility] Start: 03-15-2023 Referral to service [facility] Start: 03-15-2023 Speech therapy assessment [facility] Start: 03-15-2023 Tobacco use cessation education [facility] Start: 03-15-2023 [facility] Start: 03-15-2023 Vital signs measurements [facility] Start: 03-15-2023 Admission procedure [facility] Start: 03-15-2023 Verification routine [facility] Start: 03-15-2023 Lamotrigine measurement [facility] Start: 03-15-2023 End: 03-15-2023 [facility] Start: 03-15-2023 Oxygen therapy [facility] Start: 03-15-2023 Bacteria identified in Urine by Culture Urine Culture [facility] Start: 03-15-2023 Iiv4 vacc presrv free 0.5 ml dos for im use IIV4 VACC NO PRSV 0.5 ML IM [facility] Start: 03-15-2023 [facility]itian [facility] [facility] Start: 02-10-2023 Covid-19 Vaccine () Covid-19 Vaccine () [facility] Start: 02-10-2023 Influenza vaccination Influenza Vaccine (#1) [facility] Start: 06-12-2022 Depression Assessment Depression Assessment [facility] Start: 2016 HPV Testing HPV Testing [facility] Start: 2016 Screening for malignant neoplasm of cervix HPV Testing [facility] Start: 11-27-2014 Pneumococcal vaccination [facility] Start: 2013 HPV Vaccine (1 - 3-dose SCDM series) HPV Vaccine (1 - 3-dose SCDM series) [facility] Start: 10-25-2007 Pap Testing Pap Testing [facility] Start: 10-25-2007 Screening for malignant neoplasm of cervix [facility] Start: 2005 Hepatitis B Vaccine (1 of 3 - 19+ 3-dose series) Hepatitis B Vaccine (1 of 3 - 19+ 3-dose series) [facility] Start: 2005 Urine microalbumin profile DTaP,Tdap,Td Vaccine (1 - Tdap) [facility] Start: 2004 Anxiety Screening Anxiety Screening [facility] Start: 2004 Depression Screening Depression Screening [facility] Start: 2004 Hepatitis C Screening Hepatitis C Screening [facility] Start: 2004 Hepatitis C screening Hepatitis C Screening [facility] Start: 2004 HIV Screening HIV Screening [facility] Start: 2004 HIV screening HIV Screening [facility] Start: 04-26-1987 Covid-19 Vaccine (#1) Covid-19 Vaccine (#1) [facility] Start: 1986 Hepatitis B Vaccine (1 of 3 - 3-dose series) Hepatitis B Vaccine (1 of 3 - 3-dose series) [facility] Amphetamine [Mass/volume] in Urine [facility] Benzodiazepine measurement, urine [facility] Cocaine measurement, urine [facility] COVID & INFLUENZA A/ B & RSV PCR, ROUTINE COVID & INFLUENZA A/B & RSV PCR, ROUTINE Microbiology Routine COVID-19 virus infection Ordered: 06/26/2024 [facility] Work Phone: Comment on above: Ordered: 06/26/2024 Hemoglobin A1c/Hemoglobin.total in Blood [facility] End: 09-13-2024 HOME SLEEP APNEA TEST (HSAT) HOME SLEEP APNEA TEST (HSAT) Procedures Routine Snoring Other fatigue 1 Occurrences starting 09/14/2023 until 09/13/2024 [facility] Work Phone: Comment on above: 1 Occurrences starting 09/14/2023 until 09/13/2024 Measurement of 3,4-methylenedioxymetha mphetamine in urine [facility] Methadone measuremen t, urine [facility] End: 12-14-2025 MR Cervical spine WO and W contrast IV MRI CERVICAL SPINE WO/W IVCON Radiology Routine 1 Occurrences starting 11/14/2024 until 12/14/2025 [facility] Work Phone: Comment on above: 1 Occurrences starting 11/14/2024 until 12/14/2025 End: 12-14-2025 MR Thoracic spine WO and W contrast IV MRI THORACIC SPINE WO/W IVCON Radiology Routine 1 Occurrences starting 11/14/2024 until 12/14/2025 [facility] Comment on above: 1 Occurrences starting 11/14/2024 until 12/14/2025 Patient Education [facility] Work Phone: Patient referral [facility] Work Phone: pH of Urine [facility] Phencyclidine [Presence] in Urine [facility] Troponin T.cardiac [Mass/volume] in Serum or Plasma by High sensitivity method [facility] Troponin T.cardiac [Mass/volume] in Serum or Plasma by High sensitivity method [facility] Urine barbiturate measurement [facility] Urine cannabinoid measurement [facility] Urine opiate measurement [facility] End: 02-01-2026 XR Knee - right 4 Views XR KNEE GENERAL 4V AP BOTH/PA BOTH/LAT/MERC RIGHT Radiology Routine Pain in joint, multiple sites Right leg paresthesias 1 Occurrences starting 01/02/2025 until 02/01/2026 [facility] Comment on above: 1 Occurrences starting 01/02/2025 until 02/01/2026 XR Knee - right 4 Views XR KNEE GENERAL 4V AP BOTH/PA BOTH/LAT/MERC RIGHT Radiology Routine Pain in joint, multiple sites Right leg paresthesias 01/02/2025 3:46 PM EDT [facility] End: 02-01-2026 XR Pelvis and Hip - right AP and Lateral frog XR HIP GENERAL 3V PELV/AP/LAT RIGHT Radiology Routine Pain in joint, multiple sites Right leg paresthesias 1 Occurrences starting 01/02/2025 until 02/01/2026 [facility] Work Phone: Comment on above: 1 Occurrences starting 01/02/2025 until 02/01/2026 XR Pelvis and Hip - right AP and Lateral frog XR HIP GENERAL 3V PELV/AP/LAT RIGHT Radiology Routine Pain in joint, multiple sites Right leg paresthesias 01/02/2025 3:41 PM EDT [facility] End: 02-01-2026 XR Sacroiliac Joint Views XR SACROILIAC JOINTS 2V AP PELVIS/FERGUESON Radiology Routine Pain in joint, multiple sites Right leg paresthesias 1 Occurrences starting 01/02/2025 until 02/01/2026 [facility] Comment on above: 1 Occurrences starting 01/02/2025 until 02/01/2026 XR Sacroiliac Joint Views XR SACROILIAC JOINTS 2V AP PELVIS/FERGUESON Radiology Routine Pain in joint, multiple sites Right leg paresthesias 01/02/2025 3:42 PM EDT [facility] Immunizations Immunization Date Immunization Notes Care Provider Magi moralez 03-16-2023 influenza, injectabl e, quadrivalent, preservative free 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 Neli Tripp Work Phone: [facility] 03-16-2023 influenza virus vacc ine, unspecified formulation Paty Arciniega DO Work Phone: [facility] 11-11-2020 SARS-CoV-2 (COVID-19 ) mRNA-1273 vaccine LES MICHEL DO [facility] Comment on above: Result Comment: 2022: TPVALL 10-16-2020 SARS-CoV-2 (COVID-19 ) mRNA-1273 vaccine LES MICHEL DO [facility] Comment on above: Result Comment: 2022: TPVALL 05-13-2019 influenza virus vacc ine, unspecified formulation LES MICHEL DO [facility] 03-12-2017 influenza virus vacc ine, unspecified formulation LES MICHEL DO [facility] 06-08-2016 tetanus toxoid, redu cory diphtheria toxoid, and acellular pertussis vaccine, adsorbed LESYOLANDA MICHEL DO [facility] 04-08-2016 influenza virus vacc ine, unspecified formulation LES MICHEL DO [facility] 06-27-2015 influenza virus vacc ine, unspecified formulation LES MICHEL DO [facility] 05-14-2014 influenza virus vacc ine, unspecified formulation LES MICHEL DO [facility] 11-27-2013 pneumococcal polysaccharide vaccine, 23 valent LES MICHEL DO [facility] 11-27-[address] Rosetta Hermosillo Work Phone: [facility] Work Phone: 11-27-2013 pneumococcal vaccine , unspecified formulation Dr. Loretta Hermosillo Work Phone: [facility] 11-10-2013 pneumococcal polysaccharide vaccine, 23 valent LES MICHEL DO [facility] 02-27-[address] Loretta Hermosillo Work Phone: [facility] 01-11-1999 measles/mumps/rubell a virus vaccine LES MICHEL DO [facility] Payers Date Payer Category Payer Unknown [id number] 2024 Self-pay [id number] 2022 Medicaid [id number] 2022 Medicaid [id number] 2016 Unknown ANTHSUSHILA [id number] 1986 Unknown [id number] 2.16.8 [id number] 1986 Unknown [id number] 2.16.8 [id number] 1986 Unknown [id number] 2.16.8 [id number] 1986 Unknown [id number] 2.16.8 [id number] Unknown [id number] 2.16.8 [id number] Unknown [id number] 2.16.8 [id number] Unknown [id number] 2.16.8 [id number] Unknown [id number] 2.16.8 [id number] Unknown [id number] 2.16.8 40.1.010264.3.579.2.462 Unknown [id number] 2.16.8 [id number] Unknown [id number] 2.16.8 [id number] Unknown [id number] 2.16.8 [id number] Unknown [id number] 2.16.8 40.1.180557.3.579.2.462 Unknown [id number] 2.16.8 [id number] Unknown [id number] 2.16.8 [id number] Unknown [id number] 2.16.8 [id number] Unknown [id number] 2.16.8 [id number] Unknown [id number] 2.16.8 [id number] Unknown [id number] 2.16.8 [id number] Unknown [id number] 2.16.8 [id number] Unknown [id number] 2.16.8 [id number] Social History Date Type Detail Facility Start: 04-13-2021 End: 08-30-2023 Tobacco smoking status MSIS Unknown if ever smoked [facility] Start: 09-29-2020 None [facility] Start: 06-17-2019 With Family [facility] Start: 10-10-2020 Cigarettes [facility] Start: 1985 Sex Assigned At Female W [facility] Start: 11-25-2022 Tobacco smoking status Heavy tobacco smoker (finding) [facility] Sex Assigned At Sex [facility] Start: 1985 Sex Assigned At Not on file [facility] Start: 04-13-2023 End: 05-31-2023 Gender identity Not on file [facility] Start: 03-16-2023 Cigarettes;Vapor [facility] Start: 12-17-2002 End: 02-28-2024 Tobacco smoking status NHIS Smokes tobacco daily [facility] Start: 12-17-2002 History of tobacco use Cigarette Smoker [facility] Start: 04-13-2023 End: 05-31-2023 Cigarettes smoked current (pack per day) - Reported 1 [facility] Start: 04-13-2023 End: 02-28-2024 Tobacco use and exposure Smokeless tobacco non-user [facility] Start: 04-13-2023 End: 01-15-2025 Alcohol intake Ex-drinker (finding) [facility] Start: 05-13-2012 National Score (1-100), lower number is lower risk 75 [facility] Start: 08-17-2024 End: 09-22-2024 Sex Female (finding) [facility] NEGATED: Highlighted row [facility] NEGATED: Highlighted row Not [facility] Goals Date Patient Goal Desired Activity /State Functional Status Date Assessment Result Facility 10-23-2024 Functional status Ambulates [facility] Work Phone: 08-30-2023 Functional status Ambulates [facility] Work Phone: 03-16-2023 Functional status Activity Abili ty Standby Assist [facility] Work Phone: 12-08-2022 Functional Status Room check performed [facility] [place] [facility] 12-08-2022 Functional Status [facility] 12-08-2022 Functional Status IND [facility] 12-08-2022 Functional Status Single level home [facility] 12-08-2022 Functional Status Demonstrates C orrect Call Light Use Yes [facility] 12-07-2022 Functional Status SCD On/Re-appl ied bilateral knee high [facility] 12-07-2022 Functional Status Independent [facility] 12-07-2022 Functional Status 75 [facility] 12-07-2022 Functional Status ice on [facility] 12-07-2022 Functional Status Maintained, More than 8 hours [facility] 11-25-2022 Functional Status Sensory Deficits None A [facility] Mental Status Date Assessment Result Facility 10-23-2024 Cognitive function Voice/Name [facility] Work Phone: 10-22-2024 Cognitive function Level Of Cons ciousness Awake;Alert;Appropriate;Follow s Commands [facility] Work Phone: 08-30-2023 Cognitive function Voice/Name [facility] Work Phone: 08-29-2023 Cognitive function Voice/Name [facility] Work Phone: 07-18-2023 Cognitive function Level Of Cons ciousness Awake;Alert;Appropriate;Follow s Commands [facility] Work Phone: 03-16-2023 Cognitive function Voice/Name [facility] Work Phone: 03-15-2023 Cognitive function Voice/Name [facility] Work Phone: 12-08-2022 Mental Status Oriented x 4 [facility] 12-08-2022 Mental Status [facility] 12-07-2022 Mental Status [facility] Clinical Notes 12-07-2022 to 01-20-2025 Telephone Encounter - Dalia Worthington - 01/20/2025 8:12 AM EDTTelephone Encounter - Dalia Worthington - 01/20/2025 8:12 AM Nola Guerrero RT(Lisa) - 01/11/2025 2:50 PM EDTPatient Instructions Note Date & Type Note Facility 01-20-2025 Telephone encounter Note Physician: Gregg Call from patient requesting refill. Please E-Scribe Last OV: 10/25/2024 with Gregg Future OV: 02/20/2025 with Jose Requested Prescriptions Pending Prescriptions Disp Refills erenumab-aooe (AIMOVIG AUTOINJECTOR) 70 mg/mL auto-injector 3 mL 0 Sig: Inject 1 mL subcutaneously once every month. Pharmacy Name: Donnie Worthington [facility] 01-20-2025 Miscellaneous Notes Physician: Gregg Call from patient requesting refill. Please E-Scribe Last OV: 10/25/2024 with Gregg Future OV: 02/20/2025 with Jose Requested Prescriptions Pending Prescriptions Disp Refills erenumab-aooe (AIMOVIG AUTOINJECTOR) 70 mg/mL auto-injector 3 mL 0 Sig: Inject 1 mL subcutaneously once every month. Pharmacy Name: Don[facility] Dalia Redfield documented in this encounter [facility] 01-15-2025 Note HNO ID: [id number] Author: PRAMOD GOMEZ PA-C Service: ? Author Type: Physician Cap Sewer Type: Progress Notes Filed: 01/15/2025 16:34 Note Text: Rheumatology Clinic Visit January 15, 2025 Last seen: 01/02/2025 (with Pramod Gomez) CC: Consult follow up, discuss results and next steps. HPI: Cody Santana is a 39 year old female who follows with rheumatology for joint pain, and abnormal labs. Follow up from consult Initial Consultation 01/02/25 - Presented with history of longstanding R Hip/groin/buttocks/knee pain with significant response to prednisone. Also with sicca syndrome, Fatigue, IBS symptoms, heartburn, - History of DVT and PE x2 and - Reported history of Lupus anticoagulant versus Facor V leidin. Testing was indeterminate due to Anti-Xa inhibitor presence but was negative for anti-cardiolipin antibody. Hematology advised lifelong anticoagulation - Previously negative Alfonzo at [facility], external reportedly positive without titer, unsure if done by IFA - Repeat ALFONZO low positive (1:160 nuclear homogenous, 1:160 Cytoplasmic fine speckled), low + SSA (1.8), neg dsDNA, neg Sm Ab, Normal C3/C4. RF/CCP negative, UA negative for blood/proteinuria. Protein creat ratio elevated secondary to low creatinine. - Imaging: XR hip negative, XR SI no ankylosis or erosive disease, XR Knee normal., no fracture, dislocation erosion, or effusion. XR Ankle no acute abnormality. Current Rheum treatment: N/A Past treatments: Prednisone intermittently short courses. Current clinical: Since last visit, her hip is feeling better. She just went to urgent care for her R ankle that was having pain. Prednisone helped her ankle pain some, but it still is very sore, but it won't feel like its giving out on her. Also noticing she doesn't sweat much. Only areas she sweats are in bra and underwear region. Monitoring: Labs 01/03 labs reviewed, OK Blood TB None on file Last Bone Density: None on file Last Uric acid No data to display Sed rate/CRP Latest Ref Rng AND Units 01/02/2025 ESR, WSR WSR 0 - 20 mm/hr 17 Latest Ref Rng AND Units 01/02/2025 CRP CRP <0.9 mg/dL <0.3 Review Of Systems: Review of Systems CONSTITUTION: Positive for: Recent weight change Negative for: Fever HEENT: Positive for: Dry mouth Negative for: Nosebleeds, Mouth sores and Trouble swallowing RESPIRATORY: Negative for: Cough, Shortness of breath and Pain with breathing GASTROINTESTINAL: Positive for: Diarrhea and Heartburn Negative for: Melena and Abdominal pain MUSCULOSKELETAL: Positive for: Arthralgias, Myalgias, Muscle weakness, Joint swelling and Morning Joint Stiffness NEUROLOGICAL: Positive for: Numbness and Memory loss Negative for: Headaches SKIN: Positive for: Rash and Sun Sensitive Rash Negative for: Skin changes, Hair loss and Nail changes EYES: Negative for: Eye pain, Eye redness and Eye dryness CARDIOVASCULAR: Negative for: Chest pain and Leg swelling GENITOURINARY: Negative for: Dysuria and Hematuria HEMATOLOGIC/LYMPHATIC: Negative for: Swollen glands RAPID 3: DISEASE ACTIVITY: Weighed Score Levels: 0 - 1: Near Remission 1.3 - 2.0: Low Severity 2.3 - 4.0: Moderate Severity 4.3 - 10.0: High Severity 12/04/2024 12/26/2024 RAPID-3 Weighed Score RAPID 3 Weighed Score 3 (Moderate severity ) 3 (Moderate severity ) PROMIS Assessments 12/04/2024 12/26/2024 01/08/2025 PROMIS Assessments Physical Health Percentile 15 15 15 7 Mental Health Percentile 26 26 26 34 Pain Score 4 4 4 3 Pain Interference Percentile 3 4 Fatigue Percentile 3 5 Physical Function Percentile 4 4 Multiple values from one day are sorted in reverse-chronological order PAST MEDICAL HISTORY Diagnosis Date Bipolar affective (HCC) DVT (deep venous thrombosis) (HCC) Migraine Pulmonary embolism (HCC) PAST SURGICAL HISTORY Procedure Laterality Date REVISE MEDIAN N/CARPAL TUNNEL SURG Bilateral 2016 Family history: Father with RA. No known SLE, IBD, PsO Great grandmother Hardin Palsy SOCIAL HISTORY: Currently smoking less than 1 pack per day ETOH None Marijuana - none Single 3 kids Working at [employer] Tobacco: Tobacco Use: High Risk (01/02/2025) Patient History Smoking Tobacco Use: Every Day Smokeless Tobacco Use: Never Passive Exposure: Not on file ETOH: Alcohol Use: Not on file Allergies: ALLERGIES Allergen Reactions Keflex [Cephalexin] Other: See Comments Achy, weak Percocet [Oxycodone* Other: See Comments Nose itch Medications: Current Outpatient Medications Medication Sig predniSONE (DELTASONE) 50 mg Take 1 tablet by mouth once daily for 5 days. chlorzoxazone (PARAFON FORTE DSC) 500 mg tablet Take 1 tablet (500 mg) by mouth four times a day until headache free for 24 hours or take for full 5 days. erenumab-aooe (AIMOVIG AUTOINJECTOR) 70 mg/mL auto-injector Inject 1 mL subcutaneously once every month. lidocaine (LI (more content not included)... [facility] 01-11-2025 History of Present illness Narrative Radiology Service Progress Note PATIENT NAME: Cody Santana DATE OF SERVICE: January 11, 2025 TIME: 2:48 PM PATIENT IDENTITY VERIFICATION COMPLETED USING TWO (2) IDENTIFIERS: Name and Date of confirmed by patient verbally. FALL SCREENING: Has the patient had 2 falls in the last year or 1 fall with injury or currently using an Ambulatory Assistive Device (Walker, Cane, Wheelchair, Crutches, etc.)? No PATIENT GENDER DATA: Assigned female at . status: : No status: NO. PATIENT RELEVANT IMPLANT DATA REVIEWED: Yes PATIENT PRESENTS WITH AN IMPLANTABLE OR ATTACHED WAREHOUSE PICKER: No RADIOLOGY DEPARTMENT: General X-ray: Exam(s) Completed: Lower Extremity X-Ray(s): Ankle, Right PERIPHERAL IV DATA: Not applicable SIGNED BY: RT Inés(R) January 11, 2025 2:48 PM documented in this encounter [facility] 01-11-2025 Note HNO ID: [id number] Author: NOLA MCCURDY RT(R) Service: ? Author Type: Technologist Type: Progress Notes Filed: 01/11/2025 14:58 Note Text: Radiology Service Progress Note PATIENT NAME: Cody Santana DATE OF SERVICE: January 11, 2025 TIME: 2:48 PM PATIENT IDENTITY VERIFICATION COMPLETED USING TWO (2) IDENTIFIERS: Name and Date of confirmed by patient verbally. FALL SCREENING: Has the patient had 2 falls in the last year or 1 fall with injury or currently using an Ambulatory Assistive Device (Walker, Cane, Wheelchair, Crutches, etc.)? No PATIENT GENDER DATA: Assigned female at . status: : No status: NO. PATIENT RELEVANT IMPLANT DATA REVIEWED: Yes PATIENT PRESENTS WITH AN IMPLANTABLE OR ATTACHED WAREHOUSE PICKER: No RADIOLOGY DEPARTMENT: General X-ray: Exam(s) Completed: Lower Extremity X-Ray(s): Ankle, Right PERIPHERAL IV DATA: Not applicable SIGNED BY: RT Inés(R) January 11, 2025 2:48 PM [facility] 01-11-2025 Note HNO ID: [id number] Author: JAY DELGADO APRN.PLUCK SEPARATOR Service: ? Author Type: Nurse Practitioner Type: Progress Notes Filed: 01/11/2025 15:17 Note Text: Subjective Cody Santana is a 39 year old female. HPI Patient has a history of rheumatoid arthritis and chronic pain from the waist down. She notes that about 5 days ago she began to notice increased pain in the right ankle along with some swelling and ecchymosis. She denies any trauma or injury. Denies any nausea vomiting or fever. Review of Systems As above Objective BP 118/78 Pulse 70 Temp 36.3 ?C (97.4 ?F) (Tympanic) Resp 18 Wt 90.5 kg (199 lb 8.3 oz) LMP (LMP Unknown) SpO2 99% BMI 35.34 kg/m? Physical Exam Vitals and nursing note reviewed. Constitutional: General: She is not in acute distress. Appearance: Normal appearance. She is not ill-appearing. HENT: Head: Normocephalic. Pulmonary: Effort: Pulmonary effort is normal. Musculoskeletal: General: Normal range of motion. Comments: Diffuse tenderness throughout the right ankle extending into the right heel. No obvious swelling, ecchymosis, or deformities noted Skin: General: Skin is warm. Neurological: General: No focal deficit present. Mental Status: She is alert and oriented to person, place, and time. Psychiatric: Mood and Affect: Mood normal. Behavior: Behavior normal. ASSESSMENT/PLAN: 1. Acute right ankle pain - ICD9: 719.47, 338.19, ICD10: M25.571 X-ray of the right ankle shows no acute abnormalities. Discussed with patient that symptoms may be related to a sprain/strain versus her rheumatoid arthritis. Patient will continue to use her home Tylenol and she was also given 5 days of prednisone. 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 - XR ANKLE GENERAL 3V AP/LAT/OBL RIGHT - PREDNISONE 50 MG TABLET Jay Delgado APRN.KOLE [facility] 01-11-2025 History of Present illness Narrative Sarath Santana is a 39 year old female. HPI Patient has a history of rheumatoid arthritis and chronic pain from the waist down. She notes that about 5 days ago she began to notice increased pain in the right ankle along with some swelling and ecchymosis. She denies any trauma or injury. Denies any nausea vomiting or fever. Review of Systems As above Objective BP 118/78 Pulse 70 Temp 36.3 C (97.4 F) (Tympanic) Resp 18 Wt 90.5 kg (199 lb 8.3 oz) LMP (LMP Unknown) SpO2 99% BMI 35.34 kg/m Physical Exam Vitals and nursing note reviewed. Constitutional: General: She is not in acute distress. Appearance: Normal appearance. She is not ill-appearing. HENT: Head: Normocephalic. Pulmonary: Effort: Pulmonary effort is normal. Musculoskeletal: General: Normal range of motion. Comments: Diffuse tenderness throughout the right ankle extending into the right heel. No obvious swelling, ecchymosis, or deformities noted Skin: General: Skin is warm. Neurological: General: No focal deficit present. Mental Status: She is alert and oriented to person, place, and time. Psychiatric: Mood and Affect: Mood normal. Behavior: Behavior normal. ASSESSMENT/PLAN: 1. Acute right ankle pain - ICD9: 719.47, 338.19, ICD10: M25.571 X-ray of the right ankle shows no acute abnormalities. Discussed with patient that symptoms may be related to a sprain/strain versus her rheumatoid arthritis. Patient will continue to use her home Tylenol and she was also given 5 days of prednisone. 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 - XR ANKLE GENERAL 3V AP/LAT/OBL RIGHT - PREDNISONE 50 MG TABLET Jay Delgado APRN.KOLE documented in this encounter [facility] 01-08-2025 Telephone encounter Note Not established with any provider May schedule sooner with any available provider [facility] 01-08-2025 Telephone encounter Note ----- Message from Torres Barreto sent at 01/08/2025 11:56 AM EDT ----- Regarding: Rash, spreading Patient has been identified by name and Date of : Yes Patient: Cody Santana Date of : 1985 Provider for this encounter : Dr. Antwon Calderon Reason for call: Triage Was an appointment scheduled: Yes: Date/Time: 03/21/25, 1245pm Reason for requesting visit (RFV/signs and symptoms/diagnosis) : Rash, Started on arm, has spread to other arm, back and scalp Person calling: self Return call to: self Call patient at: on cell and , it is OK to leave message [phone] (home) [phone] (cell) Payor: [employer] / Plan: [facility] MEDICAID / Product Type: Medicaid / Torres Villa [facility] 01-08-2025 Miscellaneous Notes Not established with any provider May schedule sooner with any available provider ----- Message from Torres Barreto sent at 01/08/2025 11:56 AM EDT ----- Regarding: Rash, spreading Patient has been identified by name and Date of : Yes Patient: Cody Santana Date of : 1985 Provider for this encounter : Dr. Antwon Calderon Reason for call: Triage Was an appointment scheduled: Yes: Date/Time: 03/21/25, 1245pm Reason for requesting visit (RFV/signs and symptoms/diagnosis) : Rash, Started on arm, has spread to other arm, back and scalp Person calling: self Return call to: self Call patient at: on cell and , it is OK to leave message [phone] (home) [phone] (cell) Payor: [employer] [employer] / Plan: [facility] MEDICAID / Product Type: Medicaid / [place] documented in this encounter [facility] 01-02-2025 History of Present illness Narrative Images from the original note were not included. Rheumatology CONSULTATION Date of Service: 01/02/2025 Patient: Cody Santana Medical Record: [id number] Primary Care Physician: Liliane Kunz Last Rheumatology visit: None at [facility] Referring Provider: Local orthopedist, no referral on file, patient unsure provider Recording using [employer] software for draft documentation of the visit was discussed with the patient/authorized vendor representatives; all questions welcomed and answered. Patient/authorized vendor representatives agreed to proceed History of Present Illness Review of Chart: - History of DVT and PE x2 and - Reported history of Lupus anticoagulant versus Facor V leidin. Testing was indeterminate due to current se of - Repeat Lupus anticoagulant testing was inconclusive due to Anti-Xa inhibitor presence but was negative for anti-cardiolipin antibody. - Previously negative Alfonzo, external reportedly positive without titer, unsure if done by IFA Outside records: - 02/21/24 external labs with RF negative, ALFONZO positive (no titer), Sed rate/CRP normal, uric acid normal Per Patient today: She is being referred for positive blood test that shows autoimmune disease. Exact test and records are not with her today. Joints affected: bilateral ankles, R knee, R>Wrist, Also R hip, outer buttocks into groin, and then down to other knee Joint swelling: ankles constantly swollen. R knee pain , Wrist swells as well. Joint pain has been going on for years Wrist pain dx CTS at age 22 - deferred surgery until 28. Had surgery which helped symptoms. Then started having wrist pain and CTS symptoms again - didn't want to do surgery again. Recommended PT, tried braces at night and at work, Ice/heat. Multiple Injections in R wrist. She has done X-rays no MRI. AM stiffness: loosens up in 20-30 minutes. Also notes geling phenomenon after immobility primarily in her hip Cannot take Eliquis due to lupus anticoagulant. Muscle relaxers occasionally Tylenol occasional History of prednisone use, she feels amazing but symptoms return after discontinuation. Cody Santana is a 39-year-old female with a history of DVT, PE, migraines, bipolar disorder, depression, and hypothyroidism, presenting for evaluation of joint pain and swelling, and possible autoimmune disease. Cody Webster reports a current pain level of 5 (Generalized). She describes the pain as Aching, Dull. The pain is Continuous, and has lasted for 1 Years. Interventions tried include Medication, Relaxation, Cold, Heat, Positioning, Splinting. Her most recent ALFONZO was negative (06/23/2023). HPI per AI: Cody was referred for evaluation after blood tests suggested a possible autoimmune disease, with a concern for RA. She reports chronic joint pain and swelling primarily affecting her ankles, right knee, and wrists, with symptoms worsening over the past week. She notes that her right knee and both ankles are constantly swollen, with increased swelling correlating with increased pain. She also experiences stiffness in the mornings lasting 20-30 minutes and stiffness after periods of inactivity, particularly during work breaks, which exacerbates her right hip pain. Cody has a history of carpal tunnel syndrome diagnosed at age 22, with improvement after surgery at age 28. However, wrist pain recurred about 1-1.5 years ago. She has tried various treatments, including physical therapy, braces, ice, heat, and injections, with limited relief. She has not had MRIs but has had X-rays, including a right wrist X-ray in July 2024 showing ossification. She reports right hip pain radiating to the groin, buttocks, and knee, worsened by sitting and inactivity. She cannot take NSAIDs but uses muscle relaxers and has tried prednisone, which provides significant relief while taking it. She experiences fatigue, dry mouth, and dry eyes, and has seasonal allergies. She reports alternating constipation and diarrhea, heartburn managed with medication, and occasional headaches related to her migraine injection schedule. She denies hemoptysis, but experiences dyspnea with stairs. Cody reports numbness and tingling in her legs, more pronounced on the right, and difficulty with proprioception in her left leg, leading to frequent near-falls. She has seen neurology, who ruled out MS. 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 She is a current smoker, consuming approximately one pack per day, and denies alcohol or drug use. She is single and works for [employer]. Cody has a family history of RA in her father and Paiz's palsy in her great-grandmother. She is on multiple medications, including Aimovig, lidocaine, Robaxin, Nurtec, albuterol, Depo-Provera, Eliquis, Zyrtec, vitamin D, Celexa, famotidine, Lamictal, Singulair, nystatin, Topamax, haloperidol, and Paraffin Forte. She is due for an eye exam and has not seen a certification and selection specialist. Pain Evaluation 12/04/2024 12/17/2024 12/26/2024 12/31/2024 01/02/2025 Pain Evaluation Pain Score 3 3 5 3 5 5 Location Other: See Comment Other: See Comment Other: See Comment Other: See Comment Generalized Description Aching;Dull;Sharp;Shooting;Sore;St iffness;Tenderness Aching;Burning;Dull;Itching;Numbne ss;Pressure;Radiating;Sharp;Shooti ng;Sore;Spasm;Stabbing/Not Incision;Stiffness;Tenderness;Thro bbing;Tightness;Tingling Aching;Dull;Sharp;Shooting;Sore;St iffness;Tenderness Aching;Dull;Itching;Numbness;Press ure;Sharp;Shooting;Sore;Stabbing/N ot Incision;Stiffness;Tenderness;Thro bbing;Tightness;Tingling Aching;Dull Duration (#) 1 7 1 Duration (Timeframe) Years Years Years Years Frequency Continuous Continuous Continuous Continuous Continuous Intervention Medication;Relaxation;Cold;Heat;Po sitioning;Splinting Medication;Relaxation;Cold;Heat Medication;Relaxation;Cold;Heat;Po sitioning;Splinting Medication;Relaxation;Cold;Heat Patient-Entered Data PROMIS Assessments 08/28/2024 12/04/2024 12/26/2024 PROMIS Global Health - (T-Scores - the mean of general population = 50. Five points is a clinically meaningful difference.) Physical T-Score 39.8 39.8 39.8 39.8 Mental T-Score 45.8 43.5 43.5 43.5 Multiple values from one day are sorted in reverse-chronological order 08/28/2024 12/04/2024 12/26/2024 PROMIS CAT Pain Interference PROMIS Pain Interference T-Score (range: 10 - 90) 63 (moderate) 69 (moderate) PROMIS Pain Interference Percentile 10 3 PROMIS Adult Short Form-Global Health Score (Mental) 45.8 (Good) 43.5 (Good) 43.5 (Good) 02/28/2024 08/28/2024 12/04/2024 PROMIS CAT Fatigue PROMIS Fatigue T-Score 64 (moderate) 48 (within normal limits) 69 (moderate) PROMIS Fatigue Percentile 8 58 3 02/28/2024 08/28/2024 12/04/2024 PROMIS PHYSICAL FUNCTION T-SCORE PROMIS Physical Function T-Score 42 (mild dysfunction) 35 (moderate dysfunction) 33 (moderate dysfunction) Physical Function Percentile 21 7 4 RAPID 3 Johnson Activities of Daily Living 12/26/2024 8:25 PM 12/04/2024 10:06 PM Dress self? Without ANY difficulty Without ANY difficulty Get in and out of bed? Without ANY difficulty Without ANY difficulty Walk outdoors? Without ANY difficulty Without ANY difficulty Wash and dry body? Without ANY difficulty Without ANY difficulty Get in and out of car? With SOME difficulty With SOME difficulty RAPID 3 Disease Activity Weighed Score Levels: 0 - 1: Near Remission 1.3 - 2.0: Low Severity 2.3 - 4.0: Moderate Severity 4.3 - 10.0: High Severity 12/04/2024 12/26/2024 RAPID-3 Weighed Score RAPID 3 Weighed Score 3 (Moderate severity ) 3 (Moderate severity ) 12/26/2024 RAPID-3 Weighed Score Percentage Change Compared to Last Score 0 Review of Systems Review of Systems CONSTITUTION: Positive for: Recent weight change (Flucuates in 190s) Negative for: Fever HEENT: Positive for: Dry mouth (Bad dentition, reports lots of cavities) Negative for: Nosebleeds, Mouth sores and Trouble swallowing RESPIRATORY: Positive for: Shortness of breath (with exertion such as stairs) Negative for: Cough, Pain with breathing and Coughing up blood GASTROINTESTINAL: Positive for: Diarrhea (alternates with constipation) and Heartburn Negative for: Melena and Abdominal pain Constipation MUSCULOSKELETAL: Positive for: Arthralgias, Myalgias (upper thighs, low back, buttocks/hips, occasional neck/shoulders), Muscle weakness and Joint swelling Negative for: Morning Joint Stiffness NEUROLOGICAL: Positive for: Headaches (occasionally related to her migraine injection), Numbness (+ letha legs somtimes into feet.) and Memory loss SKIN: Positive for: Rash (solar urticaria) and Sun Sensitive Rash Negative for: Skin changes, Hair loss and Nail changes EYES: Positive for: Eye dryness (not using eye drops. Admits seasonal allergies which aggrave sx.) and Visual disturbance (black dot in vision, intermittent, Due for eye exam) Negative for: Eye pain and Eye redness CARDIOVASCULAR: Positive for: Leg swelling (Worse in the end of the day.) Negative for: Chest pain GENITOURINARY: Negative for: Dysuria and Hematuria HEMATOLOGIC/LYMPHATIC: Negative for: Swollen glands RHEUMATOLOGIC REVIEW OF SYSTEMS: No ulcers in mouth or nose + photosensenitivity + history of blood clots (left leg, R leg, PE x 2) + miscarriages - one, early. Had 3 other pregnancies. No history of preeclampsia + fatigue No history of Raynaud's No fevers Allergy eye issues, no inflammatory eye history + history of psoriasis on knees per family doctor + morning stiffness Fluctuations in weight + neuropathy bilateral lower extremities All other reviewed and negative other than HPI. Past Medical History PAST MEDICAL HISTORY Diagnosis Date Bipolar affective (HCC) DVT (deep venous thrombosis) (HCC) Migraine Pulmonary embolism (HCC) Past Surgical History PAST SURGICAL HISTORY Procedure Laterality Date REVISE MEDIAN N/CARPAL TUNNEL SURG Bilateral 2016 Family History FAMILY HISTORY Problem Relation Age of Onset Stroke Mother other (CHF) Mother COPD Mother other (rheumatiod arthritis) Father Leukemia Father COPD Maternal Grandmother Pancreatic Cancer Maternal Grandfather Ovarian cancer Paternal Grandmother Father with RA. No known SLE, IBD, PsO Great grandmother Hardin Palsy Social History Social History Tobacco Use Smoking status: Every Day Current packs/day: 1.00 Average packs/day: 1 pack/day for 22.0 years (22.0 ttl pk-yrs) Types: Cigarettes Start date: 12/17/2002 Smokeless tobacco: Never Vaping Use Vaping status: Some Days Substances: Nicotine Devices: Disposable Substance Use Topics Alcohol use: Not Currently Drug use: Not Currently Currently smoking less than 1 pack per day ETOH None Marijuana - none Single 3 kids Working at [employer] Current Medications Current Outpatient Medications Medication Sig erenumab-aooe (AIMOVIG AUTOINJECTOR) 70 mg/mL auto-injector Inject 1 mL subcutaneously once every month. lidocaine (LIDODERM) 5 % Apply 1 Patch as directed every 24 hours. methocarbamol (ROBAXIN) 500 mg tablet Take 500 mg by mouth four times daily. rimegepant (NURTEC ODT) 75 mg disintegrating tablet Take 1 tablet by mouth once daily as needed (Migraine). albuterol HFA (PROVENTIL HFA, VENTOLIN HFA) 90 mcg/actuation inhaler Inhale 2 Puffs as instructed every 6 hours as needed for wheezing/shortness of breath. medroxyPROGESTERone (DEPO-PROVERA) 150 mg/mL injection Inject 150 mg intramuscularly every 12 weeks. ELIQUIS 5 mg tab(s) Take 1 tablet by mouth every 12 hours. cetirizine (ZYRTEC) 10 mg tablet Take 10 mg by mouth once daily. cholecalciferol (VITAMIN D3) 1,000 unit tab tablet [...] montelukast (SINGULAIR) 10 mg tablet Take 1 tablet by mouth every afternoon. nystatin (MYCOSTATIN) powder APPLY POWDER TOPICALLY TWICE TO THREE TIMES DAILY TO GROIN AREA DIRECTED topiramate (TOPAMAX) 200 mg tablet Take 200 mg by mouth two times a day. haloperidol (HALDOL) 5 mg tablet Take 5 mg by mouth as needed (for anxiety). chlorzoxazone (PARAFON FORTE DSC) 500 mg tablet Take 1 tablet (500 mg) by mouth four times a day until headache free for 24 hours or take for full 5 days. Labs Latest Ref Rng & Units 06/23/2023 CARLOS CARLOS <=52 U/L 19 Latest Ref Rng & Units 06/23/2023 06/21/2024 Antibodies ALFONZO Negative Negative Beta 2 Glycoprotein, IgM <20 SMU <9 Cardiolipin Ab, IgG <15.0 GPL <9.0 Cardiolipin Ab, IgM <12.5 MPL 10.8 Cardiolipin Ab, IgA <12.0 APL <9.0 PT Sec <13.1 sec 10.7 PT INR 0.9 - 1.3 1.0 APTT 23.0 - 32.4 sec 27.9 APTT Screen 24.0 - 35.1 seconds 34.3 Thrombin Time <18.6 seconds 18.5 Anti Xa Inhib Assay <0.10 0.85 Imaging Outside imaging - 03/15/23 - MRI Brain without contrast - No evidence of CVA, mild white matter changes which may represent chronic microvascular chnge or areas of demyelination - 03/15/23 CT Bran negative - 03/15/23 CTA head and neck normal - 08/30/23 Brain MRI With no acute infarct or mass, but mild chronic white matter changes which may be secondary to chronic small vessel ischemic glisosis or other vascular etiologies, or sequelae of nonspecific demyelination or inflammation. Last XR Chest - Impression Only XR CHEST 2V FRONTAL/LAT Exam End: 07/18/2024 2:35 PM (Final result) Impression: IMPRESSION: No acute radiographic abnormality. Wood Preparation Supervisor: LUDIVINA Transcribe Date/Time: Jul 18 2024 3:00P... EMG 07/07/23 - 1. No definite evidence of right median mononeuropathy at or distal to the wrist (ie: carpal tunnel syndrome). The right median orthodromic response is slightly prolonged, but this may be residual slowing from prior carpal tunnel release surgery. 2. No definite evidence of a right cervical (including C5-C8) motor radiculopathy, although an intraspinal canal lesion affecting only sensory nerve root fibers cannot be excluded based on this study. 3. Screening studies for ulnar and radial mononeuropathies did not reveal any definite abnormalities. Health Maintenance Current Immunizations Never Reviewed Name Date COVID-19 vaccine, monovalent (MODERNA) 11/11/2020, 10/16/2020 Physical Exam VITAL SIGNS: BP 110/64 Pulse 79 Resp 17 Wt 198 lb 9.6 oz (90.1kg) SpO2 100% GENERAL APPEARANCE: Well groomed. Alert and oriented x 3. In no distress. SKIN: hive like rash on back of neck and in scalp, no dry or scaly skin consistent with PsO plaques. Mild Livedo reticularis noted on legs EYES: normal conjunctiva HENT: Normal external examination of the ears and nose, lips, oropharynx and tongue. No oropharyngeal lesions, exudate, or sores. Dry Mucous membranes NECK: No mass or asymmetry. RESPIRATORY: Normal respiratory effort. Clear to auscultation CARDIOVASCULAR: Heart RRR without gallop, murmur, or rub ABDOMEN: BS normal. No bruits, No tenderness NEUROLOGIC: Sensory exam normal. MUSCULOSKELETAL EXAMINATION: Soft tissue tender points: None Motor exam: Normal bulk and tone. Spine: Cervical spine: No visible abnormalities. + generalized tenderness to palpation. Thoracic spine: No visible abnormalities. + midline vertebral tenderness to palpation between shoulder blades Lumbar spine: No visible abnormalities. + midline vertebral tenderness to palpation as well as paraspinal muscle tenderness SI Joints: +R sided tenderness to palpation. + YAW Upper extremities: Shoulders: Full ROM in all bermudez, + R shoulder tenderness to palpation. No swelling or effusion. Elbows: Full ROM in flexion and extension. No swelling or effusion. No tenderness to palpation to the joint line, olecranon, medial or lateral epicondyles. Wrists: Full ROM in all bermudez. No swelling or synovitis. +R wrist tenderness to palpation Hands: Full ROM in flexion and extension. Full bit gatherer strength. No swelling or synovitis along the MCPs, PIPs, and DIPs. No tenderness along the MCPs, PIPs, and DIPs. Lower extremities: Hips: Painful Flex/extension/External rotation. + tenderness to lateral joint margin and piriformis region. POSITIVE YAW. Knees: Full ROM in flexion and extension. No swelling or effusion. + R sided Medial and lateral joint margin tenderness to palpation. Ankles: Full ROM in all bermudez. Trace swelling in R ankle with tenderness to medial joint margin. Feet: Full ROM in toe flexion/extension. No effusion. No tenderness to palpation. No evidence of MTP swelling. Impression/ Plan # Pain in joint, multiple sites (M25.50) Chronic pain in multiple joints including ankles, knees, wrists, and right hip. Pain is associated with swelling and stiffness, particularly in the morning and after periods of inactivity. Previous treatments include physical therapy, braces, ice, heat, and corticosteroid injections. She had near complete resolution of all symptoms on steroids. Past imaging of painful joints shows no significant osteoarthritis in R wrist, R shoulder, L knee. Prior rheum testing negative for RF, ALFONZO, ESR/CRP. Will repeat and update appropriate rheumatologic serologies. - Ordered x-rays of hips, knees, and wrists to evaluate for underlying pathology. - Consider MRI of Hip or Si joints pending results - Scheduled follow-up in 2-3 weeks to review results. # Pain in right hip (M25.551) Chronic pain in the right hip, radiating to the groin and knee. No previous imaging studies performed. - Ordered x-ray of the right hip. - Consider MRI if x-ray findings are inconclusive. # Sacroiliac pain (M53.3) Tenderness in the right sacroiliac joint on physical examination. No previous imaging studies performed. ? SpA spectrum disorder - Ordered x-ray of the sacroiliac joints. - Consider MRI if x-ray findings are inconclusive. # Right leg paresthesias (R20.2) Chronic paresthesias in the right leg, with occasional numbness and tingling extending to the foot and altered gait. No previous EMG studies performed for the lower extremities. - Continue to follow to neurology for further evaluation and consideration of EMG studies. # History of carpal tunnel syndrome (Z86.69) Previous carpal tunnel syndrome with surgical intervention. Recurrence of symptoms in the right wrist, with pain and swelling. Previous x-ray of the right wrist showed ossification. - workup as above for inflammatory etiology # History of DVT (deep vein thrombosis) (Z86.718) # History of pulmonary embolism (Z86.711) # Lupus anticoagulant disorder (HCC) (D68.62) Chronic anticoagulation therapy with Eliquis. Previous episodes of DVT and pulmonary embolism. Previously positive lupus anticoagulant test, repeat test indeterminate given recent Eliuis use. - Continue Eliquis therapy per hematology - Monitor for signs and symptoms of thrombosis. - Follow up with hematology for ongoing management. #Scalp rash/hives - patient with itchy hive like rash on base of scalp - also with reported history of psoriasis dx by PCp, although not diagnosed by dermatology - No classic psO plaques today on exam - Will refer to dermatology Orders this visit: Office Visit on 01/02/25 XR HIP GENERAL 3V PELV/AP/LAT RIGHT XR SACROILIAC JOINTS 2V AP PELVIS/FERGUESON XR KNEE GENERAL 4V AP BOTH/PA BOTH/LAT/MERC RIGHT RHEUMATOID FACTOR CCP ANTIBODY IGG SEDIMENTATION RATE, WESTERGREN C-REACTIVE PROTEIN ALFONZO BY IFA SCREEN ANTI KARYN ID [id number] COMPLEMENT C4 COMPLEMENT URINALYSIS, WITH MICROSCOPIC PROTEIN / CREATININE RATIO DNA AB DS + CONF BLD No follow-ups on file. I spent a total of 65 minutes on the date of the service which included preparing to see the patient, [id number] patient care, completing clinical documentation, obtaining and/or reviewing separately obtained history, performing a medically appropriate examination, counseling and educating the patient/family/caregiver, ordering medications, tests, or procedures, communicating with other HCPs (not separately reported), independently interpreting results (not separately reported), and communicating results to the patient/family/caregiver. ___ Pramod Gomez PA-C Rheumatology Date: January 02, 2025 Time: 4:27 PM documented in this encounter [facility] 01-02-2025 Note HNO ID: [id number] Author: PRAMOD GOMEZ PA-C Service: ? Author Type: Physician Cap Sewer Type: Progress Notes Filed: 01/02/2025 16:28 Note Text: Rheumatology CONSULTATION Date of Service: 01/02/2025 Patient: Cody Santaan Medical Record: [id number] Primary Care Physician: Liliane Kunz Last Rheumatology visit: None at [facility] Referring Provider: Local orthopedist, no referral on file, patient unsure provider Recording using [employer] software for draft documentation of the visit was discussed with the patient/authorized vendor representatives; all questions welcomed and answered. Patient/authorized vendor representatives agreed to proceed History of Present Illness Review of Chart: - History of DVT and PE x2 and - Reported history of Lupus anticoagulant versus Facor V leidin. Testing was indeterminate due to current se of - Repeat Lupus anticoagulant testing was inconclusive due to Anti-Xa inhibitor presence but was negative for anti-cardiolipin antibody. - Previously negative Alfonzo, external reportedly positive without titer, unsure if done by IFA Outside records: - 02/21/24 external labs with RF negative, ALFONZO positive (no titer), Sed rate/CRP normal, uric acid normal Per Patient today: She is being referred for positive blood test that shows autoimmune disease. Exact test and records are not with her today. Joints affected: bilateral ankles, R knee, R>Wrist, Also R hip, outer buttocks into groin, and then down to other knee Joint swelling: ankles constantly swollen. R knee pain , Wrist swells as well. Joint pain has been going on for years Wrist pain dx CTS at age 22 - deferred surgery until 28. Had surgery which helped symptoms. Then started having wrist pain and CTS symptoms again - didn't want to do surgery again. Recommended PT, tried braces at night and at work, Ice/heat. Multiple Injections in R wrist. She has done X-rays no MRI. AM stiffness: loosens up in 20-30 minutes. Also notes geling phenomenon after immobility primarily in her hip Cannot take Eliquis due to lupus anticoagulant. Muscle relaxers occasionally Tylenol occasional History of prednisone use, she feels amazing but symptoms return after discontinuation. Cody Santana is a 39-year-old female with a history of DVT, PE, migraines, bipolar disorder, depression, and hypothyroidism, presenting for evaluation of joint pain and swelling, and possible autoimmune disease. Cody Webster reports a current pain level of 5 (Generalized). She describes the pain as Aching, Dull. The pain is Continuous, and has lasted for 1 Years. Interventions tried include Medication, Relaxation, Cold, Heat, Positioning, Splinting. Her most recent ALFONZO was negative (06/23/2023). HPI per AI: Cody was referred for evaluation after blood tests suggested a possible autoimmune disease, with a concern for RA. She reports chronic joint pain and swelling primarily affecting her ankles, right knee, and wrists, with symptoms worsening over the past week. She notes that her right knee and both ankles are constantly swollen, with increased swelling correlating with increased pain. She also experiences stiffness in the mornings lasting 20-30 minutes and stiffness after periods of inactivity, particularly during work breaks, which exacerbates her right hip pain. Cody has a history of carpal tunnel syndrome diagnosed at age 22, with improvement after surgery at age 28. However, wrist pain recurred about 1-1.5 years ago. She has tried various treatments, including physical therapy, braces, ice, heat, and injections, with limited relief. She has not had MRIs but has had X-rays, including a right wrist X-ray in July 2024 showing ossification. She reports right hip pain radiating to the groin, buttocks, and knee, worsened by sitting and inactivity. She cannot take NSAIDs but uses muscle relaxers and has tried prednisone, which provides significant relief while taking it. She experiences fatigue, dry mouth, and dry eyes, and has seasonal allergies. She reports alternating constipation and diarrhea, heartburn managed with medication, and occasional headaches related to her migraine injection schedule. She denies hemoptysis, but experiences dyspnea with stairs. Cody reports numbness and tingling in her legs, more pronounced on the right, and difficulty with proprioception in her left leg, leading to frequent near-falls. She has seen neurology, who ruled out MS. 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 She is a current smoker, consuming approximately one pack per day, and denies alcohol or drug use. She is single and works for [employer]. Cody has a family history of RA in her father and Paiz's palsy in her great-grandmother. She is on multiple medications, including Aimovig, lidocaine, Robaxin, Nurtec, albuterol, Depo-Provera, (more content not included)... [facility] 01-01-2025 History of Present illness Narrative Images from the original note were not included. [facility] FOLLOWUP/ESTABLISHED VIRTUAL PATIENT VISIT I have communicated my name and active licensure. The patient's identity and physical location were verified at the time of this visit. Either the patient or their legal vendor representatives has been informed of the risks and benefits of -- and alternatives to -- treatment through a remote evaluation and consents to proceed with the evaluation remotely. PRINCIPAL NEUROLOGIC DIAGNOSIS: Abnormal MRI brain DISEASE SUMMARY Date of onset: No typical demyelinating syndrome Date of diagnosis of MS: None Disease course at onset: No typical demyelinating syndrome Current disease course: No typical demyelinating syndrome Previous disease therapies: None Current disease therapy: None Most recent MRI brain: 10/23/2024 Most recent MRI cervical spine: 12/30/2024 (no cord lesions) CSF: None JCV serology result and date: None CHIEF COMPLAINT: Review diagnostic testing results and discuss implications INTERVAL HISTORY: Today's visit is being completed virtually over Zoom. Patient consented to proceed with virtual visit. The patient is not accompanied by anyone. The patient was last seen 12/18/2024. Was unable to get MRI thoracic spine due to insurance authorization. Refer to patient-entered data. Neuro-QoL Functions (higher=better functioning) Flowsheet Row Office Visit from 12/18/2024 in [facility] Upper Extremity Domain T Score 36 Lower Extremity Domain T Score 39 Cognitive Function Domain T Score 33 Positive Affect Well Being T Score -- Ability To Participate In Social Roles T Score 38 Satisfaction With Social Roles T Score 36 Neuro-QoL Symptoms (higher=worse symptoms) Flowsheet Row Office Visit from 12/18/2024 in [facility] Sleep Domain T Score 67 Fatigue Domain T Score 63 Anxiety Domain T Score 48 Depression Domain T Score 47 Stigma Domain T Score 60 Emotional Behavior Dyscontrol T Score -- has a past medical history of Bipolar affective (HCC), DVT (deep venous thrombosis) ([facility]), Migraine, and Pulmonary embolism (HCC). has a current medication list which includes the following prescription(s): chlorzoxazone, aimovig autoinjector, lidocaine, methocarbamol, nurtec odt, albuterol hfa, medroxyprogesterone, eliquis, cetirizine, cholecalciferol, citalopram, famotidine, lamotrigine, montelukast, nystatin, topiramate, and haloperidol. EXAM: LMP (LMP Unknown) MSPT Results Flowsheet Row Office Visit from 12/18/2024 in [facility] Processing Speed Total Number Correct 54 Processing Speed Z score 0.13 Dominant hand Right hand MDT Left Hand Time -- MDT Right Hand Time -- Walking Speed Test (25 feet) -- Memory Z Score -- General Appearance: well appearing, in no acute distress Mental status evaluation during the interview and examination showed normal level of consciousness, language, memory, praxis, and higher intellectual function Affect: Normal RESULTS: MRI cervical spine w/wo 12/30/2024: Questionable patchy STIR hyperintense foci involving the visualized spinal cord likely artifactual. Demyelinating disease considered unlikely, as clinically questioned. The visualized cord is within normal limits of signal intensity and morphology, otherwise. On post infusion images, no abnormal enhancement. Suggest comparison prior studies if available. Otherwise, in case of a high concern continued follow-up could be obtained for reassurance. Mild degenerative changes without significant spinal canal or foraminal stenosis. Susceptibility artifacts from ACDF at C5 C7. Refer to prior dedicated cross-sectional studies for detailed evaluation. Visualized cervical vertebrae demonstrate normal height and marrow signal intensity. On post infusion images, no abnormal enhancement. [Personally reviewed and no clear cord pathology noted] ASSESSMENT/PLAN: 39 year old right handed female with relevant PMHx migraine, bipolar affective disorder, tobacco use, heterozygous factor V mutation, lupus anticoagulant disorder, DVT/PE, cervical spine disease s/p fusion (November 2022) presenting for evaluation of abnormal MRI brain. No history of typical demyelinating syndrome although patient reports x3 episodes of paroxysmal acute encephalopathy since March 2023 with interval progressive symptoms including difficulties with ambulation. Reassuringly, neurological examination was unremarkable outside of antalgic gait due to right knee pain. Evaluation previously including MRI, CTA, EEG, and EMG have been unremarkable. MRI brain has shown subcortical non-specific WM lesions. MRI cervical spine without cord lesions. Overall, low index of suspicion for DOCTOR OF CHIROPRACTIC inflammatory disease as etiology for abnormal MRI brain or symptoms. Suspect progression in WM lesions could be in the context of ageing, migraine, tobacco use, and ? anti-phospholipid syndrome. Unclear etiology of paroxysmal symptoms for which continued follow up and monitoring is warranted. PLAN: - Encouraged smoking cessation. - Scheduled to see rheumatology tomorrow for further evaluation on lupus spectrum disorders (APS vs. LA vs. SLE). - Continue follow up with headache and cerebrovascular clinic. - No further need for neuroimmunological assessment at this time. No orders found for this visit on 01/01/25. I spent a total of 30 minutes on the date of the service which included preparing to see the patient, [id number] patient care, completing clinical documentation, obtaining and/or reviewing separately obtained history, performing a medically appropriate examination, and counseling and educating the patient/family/caregiver. Nick Rachel MD [facility] CC: Janet Fernandez documented in this encounter [facility] 01-01-2025 Note HNO ID: [id number] Author: NICK RACHEL MD Service: ? Author Type: Physician Type: Progress Notes Filed: 01/01/2025 14:07 Note Text: [facility] FOLLOWUP/ESTABLISHED VIRTUAL PATIENT VISIT I have communicated my name and active licensure. The patient's identity and physical location were verified at the time of this visit. Either the patient or their legal vendor representatives has been informed of the risks and benefits of -- and alternatives to -- treatment through a remote evaluation and consents to proceed with the evaluation remotely. PRINCIPAL NEUROLOGIC DIAGNOSIS: Abnormal MRI brain DISEASE SUMMARY Date of onset: No typical demyelinating syndrome Date of diagnosis of MS: None Disease course at onset: No typical demyelinating syndrome Current disease course: No typical demyelinating syndrome Previous disease therapies: None Current disease therapy: None Most recent MRI brain: 10/23/2024 Most recent MRI cervical spine: 12/30/2024 (no cord lesions) CSF: None JCV serology result and date: None CHIEF COMPLAINT: Review diagnostic testing results and discuss implications INTERVAL HISTORY: Today's visit is being completed virtually over Zoom. Patient consented to proceed with virtual visit. The patient is not accompanied by anyone. The patient was last seen 12/18/2024. Was unable to get MRI thoracic spine due to insurance authorization. Refer to patient-entered data. Neuro-QoL Functions (higher=better functioning) Flowsheet Row Office Visit from 12/18/2024 in [facility] Upper Extremity Domain T Score 36 Lower Extremity Domain T Score 39 Cognitive Function Domain T Score 33 Positive Affect Well Being T Score -- Ability To Participate In Social Roles T Score 38 Satisfaction With Social Roles T Score 36 Neuro-QoL Symptoms (higher=worse symptoms) Flowsheet Row Office Visit from 12/18/2024 in [facility] Sleep Domain T Score 67 Fatigue Domain T Score 63 Anxiety Domain T Score 48 Depression Domain T Score 47 Stigma Domain T Score 60 Emotional Behavior Dyscontrol T Score -- has a past medical history of Bipolar affective ([facility]), DVT (deep venous thrombosis) ([facility]), Migraine, and Pulmonary embolism ([facility]). has a current medication list which includes the following prescription(s): chlorzoxazone, aimovig autoinjector, lidocaine, methocarbamol, nurtec odt, albuterol hfa, medroxyprogesterone, eliquis, cetirizine, cholecalciferol, citalopram, famotidine, lamotrigine, montelukast, nystatin, topiramate, and haloperidol. EXAM: LMP (LMP Unknown) MSPT Results Flowsheet Row Office Visit from 12/18/2024 in [facility] Processing Speed Total Number Correct 54 Processing Speed Z score 0.13 Dominant hand Right hand MDT Left Hand Time -- MDT Right Hand Time -- Walking Speed Test (25 feet) -- Memory Z Score -- General Appearance: well appearing, in no acute distress Mental status evaluation during the interview and examination showed normal level of consciousness, language, memory, praxis, and higher intellectual function Affect: Normal RESULTS: MRI cervical spine w/wo 12/30/2024: Questionable patchy STIR hyperintense foci involving the visualized spinal cord likely artifactual. Demyelinating disease considered unlikely, as clinically questioned. The visualized cord is within normal limits of signal intensity and morphology, otherwise. On post infusion images, no abnormal enhancement. Suggest comparison prior studies if available. Otherwise, in case of a high concern continued follow-up could be obtained for reassurance. Mild degenerative changes without significant spinal canal or foraminal stenosis. Susceptibility artifacts from ACDF at C5 C7. Refer to prior dedicated cross-sectional studies for detailed evaluation. Visualized cervical vertebrae demonstrate normal height and marrow signal intensity. On post infusion images, no abnormal enhancement. [Personally reviewed and no clear cord pathology noted] ASSESSMENT/PLAN: 39 year old right handed female with relevant PMHx migraine, bipolar affective disorder, tobacco use, heterozygous factor V mutation, lupus anticoagulant disorder, DVT/PE, cervical spine disease s/p fusion (November 2022) presenting for evaluation of abnormal MRI brain. No history of typical demyelinating syndrome although patient reports x3 episodes of paroxysmal acute encephalopathy since March 2023 with interval progressive symptoms including difficulties with ambulation. Reassuringly, neurological examination was unremarkable outside of antalgic gait due to right knee pain. Evaluation previously including MRI, CTA, EEG, and EMG have been unremarkable. MRI brain has shown subcortical non-specific WM lesions. MRI cervical spine without cord lesions. Overall, low index of suspicion for DO[employer] OF CHIROPRACTIC inflammatory disease as etiology for abnormal MRI brain or symptoms. Suspect progression in WM lesions could be in the context of ageing, migrain (more content not included)... [facility] 12-30-2024 History of Present illness Narrative Radiology Service Progress Note DATE OF SERVICE: December 30, 2024 TIME: 2:36 PM PATIENT IDENTITY VERIFICATION COMPLETED USING TWO (2) STANDARD IDENTIFIERS: Name and Date of confirmed by patient verbally. FALL SCREENING: Has the patient had 2 falls in the last year or 1 fall with injury or currently using an Ambulatory Assistive Device (Walker, Cane, Wheelchair, Crutches, etc.)? No PATIENT GENDER DATA: Assigned female at . status: : No status: NO. PATIENT RELEVANT IMPLANT DATA REVIEWED: Yes PATIENT PRESENTS WITH AN IMPLANTABLE OR ATTACHED WAREHOUSE PICKER: No ALLERGIES: Reviewed and unchanged CONTRAST ALLERGY: NO. EXAM: MRI - CONTRAST TYPE: GROUP II PERIPHERAL IV DATA: Ambulatory: A peripheral IV was started in the Right upper extremity with a Angio cath: 22 gauge. RADIOLOGY DEPARTMENT: MR; Exam(s) Completed: Spine: Cervical spine. Aromatherapy Administered: No SIGNATURE: EMA Hodgson) PATIENT NAME: Cody Santana DATE: December 30, 2024 TIME: 2:36 PM documented in this encounter [facility] 12-30-2024 Note HNO ID: [id number] Author: JAYDE BROWNE RT(R) Service: ? Author Type: Technologist Type: Progress Notes Filed: 12/30/2024 14:37 Note Text: Radiology Service Progress Note DATE OF SERVICE: December 30, 2024 TIME: 2:36 PM PATIENT IDENTITY VERIFICATION COMPLETED USING TWO (2) STANDARD IDENTIFIERS: Name and Date of confirmed by patient verbally. FALL SCREENING: Has the patient had 2 falls in the last year or 1 fall with injury or currently using an Ambulatory Assistive Device (Walker, Cane, Wheelchair, Crutches, etc.)? No PATIENT GENDER DATA: Assigned female at . status: : No status: NO. PATIENT RELEVANT IMPLANT DATA REVIEWED: Yes PATIENT PRESENTS WITH AN IMPLANTABLE OR ATTACHED WAREHOUSE PICKER: No ALLERGIES: Reviewed and unchanged CONTRAST ALLERGY: NO. EXAM: MRI - CONTRAST TYPE: GROUP II PERIPHERAL IV DATA: Ambulatory: A peripheral IV was started in the Right upper extremity with a Angio cath: 22 gauge. RADIOLOGY DEPARTMENT: MR; Exam(s) Completed: Spine: Cervical spine. Aromatherapy Administered: No SIGNATURE: RT Gokul(R) PATIENT NAME: Cody Santana DATE: December 30, 2024 TIME: 2:36 PM [facility] 12-18-2024 Instructions Nick Rachel MD - 12/18/2024 3:16 PM EDT I would recommend a virtual visit with me after your next set of MRIs to discuss the results. documented in this encounter [facility] 12-18-2024 History of Present illness Narrative Images from the original note were not included. [facility] NEW PATIENT EVALUATION/CONSULTATION Referral source: Janet Fernandez [address] [address] Also followed by: Patient Care Team: Neli Tripp PLUCK SEPARATOR as PCP - General (Family Medicine) PRINCIPAL NEUROLOGIC DIAGNOSIS: Abnormal MRI brain DISEASE SUMMARY Date of onset: No typical demyelinating syndrome Date of diagnosis of MS: None Disease course at onset: No typical demyelinating syndrome Current disease course: No typical demyelinating syndrome Previous disease therapies: None Current disease therapy: None Most recent MRI brain: 10/23/2024 Most recent MRI cervical spine: None CSF: None JCV serology result and date: None HISTORY OF ILLNESS: An opinion on this 39 year old right handed female was requested by the referring physician for a second opinion on abnormal brain MRI. The patient was accompanied by her work friend. Previous records (physician notes, laboratory reports, and radiology reports) and imaging studies were reviewed and summarized. My recommendations will be communicated back to the patient's physician(s) via electronic medical record. Follow-up is expected to be with me or the referring physician based on results of planned workup. The patient consented to the use of [employer] software for draft documentation of the visit, consistent with [facility] s Notice of Privacy Practices. Patient is currently being evaluated by general neurology, headache neurology, and cerebrovascular center. Cody reports that her symptoms began in March 2023 with a sudden onset of weakness, dizziness, and a sensation of impending collapse while at work. She describes feeling spaced out and unable to speak or comprehend fully, leading to an emergency department visit where a stroke was suspected. She was hospitalized for three days, and her symptoms gradually improved over a month, though she notes that her memory has never fully returned. In July 2023, she experienced a similar episode, though less severe, which was initially thought to be a migraine. In October 2024, she had another episode at work, characterized by sudden onset of speech difficulty and numbness from the waist down. These episodes reportedly resolve within a few hours, but she notes that her memory and lower body numbness have not fully returned to baseline. Cody reports persistent numbness and pain in her right knee and hips, describing a sensation of separation between her hips and pelvis. She also experiences difficulty with mobility, including tripping over her feet and being unable to move her right leg at times. These symptoms have been progressively worsening, and she notes that she has been stuck in positions where she cannot move without assistance. She also reports increased sensitivity to temperature changes and itching without a known cause. She does not endorse any specific triggers for her symptoms and notes that her psychiatric medications have been stable for the past three years. Cody has a history of migraines for the past 3-4 years, which have been well-controlled with Aimovig injections. She does not report headaches associated with her episodes of weakness and dizziness. She has a history of multiple thromboembolic events, including deep vein thrombosis and pulmonary embolism, and is currently on Eliquis. She also has a history of cervical spine fusion surgery in November 2022 for neck tightness and right arm numbness, which reportedly improved after surgery. Cody has a family history of Paiz's palsy in her great-grandmother. She does not endorse any family history of multiple sclerosis or other neurological disorders. She is a current smoker, smoking approximately three-fourths of a pack per day for the past 22 years. She does not consume alcohol. Neuro-QoL Functions (higher=better functioning) Flowsheet Row Office Visit from 12/18/2024 in [facility] Upper Extremity Domain T Score 36 Lower Extremity Domain T Score 39 Cognitive Function Domain T Score 33 Positive Affect Well Being T Score -- Ability To Participate In Social Roles T Score 38 Satisfaction With Social Roles T Score 36 Neuro-QoL Symptoms (higher=worse symptoms) Flowsheet Row Office Visit from 12/18/2024 in [facility] Sleep Domain T Score 67 Fatigue Domain T Score 63 Anxiety Domain T Score 48 Depression Domain T Score 47 Stigma Domain T Score 60 Emotional Behavior Dyscontrol T Score -- PAST HISTORY: has a past medical history of Bipolar affective ([facility]), DVT (deep venous thrombosis) ([facility]), Migraine, and Pulmonary embolism ([facility]). has a past surgical history that includes revise median n/carpal tunnel surg (Bilateral, 2016). has a current medication list which includes the following prescription(s): chlorzoxazone, aimovig autoinjector, lidocaine, methocarbamol, nurtec odt, albuterol hfa, medroxyprogesterone, eliquis, cetirizine, cholecalciferol, citalopram, famotidine, lamotrigine, montelukast, nystatin, topiramate, and haloperidol. Social History Tobacco Use Smoking status: Every Day Packs/day: 1.00 Years: 1 pack/day for 22.0 years (22.0 ttl pk-yrs) Types: Cigarettes Start date: 12/17/2002 Smokeless tobacco: Never family history includes CHF in her mother; COPD in her maternal grandmother and mother; Leukemia in her father; Ovarian cancer in her paternal grandmother; Pancreatic Cancer in her maternal grandfather; Stroke in her mother; rheumatiod arthritis in her father. PHYSICAL EXAM: BP 109/68 Pulse 108 Ht 160 cm (5' 3) Wt 88.5 kg (195 lb) LMP (LMP Unknown) BMI 34.54 kg/m Hair, skin, nails, and joints were normal. Neck was supple without Lhermitte's phenomenon. Breathing comfortably on room air. There was no peripheral edema. The patient was alert and with normal language, attention and concentration, recent and remote memory, praxis, and intellectual function. Affect was normal. The patient did not appear depressed. Visual acuity to near card was as follows: OD= 20/20 (with contacts) OS= 20/20 (with contacts). Visual bermudez were full to confrontation. Pupils were 3 mm and briskly reactive OU without a relative afferent pupillary defect. Funduscopic examination was normal without disc edema, erythema, or atrophy. Ocular ductions were full without nystagmus or ataxia. Facial sensation was normal. Muscles of mastication and facial expression moved normally. Hearing was intact to finger rub bilaterally. Palatal movements were normal. Sternocleidomastoid and trapezius power were normal. Tongue movements were normal. There was no dysarthria. Motor Examination: There was no pronator drift. Right Upper Extremity: Left Upper Extremity: Deltoid 5/5 Deltoid 5/5 Biceps 5/5 Biceps 5/5 Triceps 5/5 Triceps 5/5 Wrist extensors 5/5 Wrist extensors 5/5 Wrist flexors 5/5 Wrist flexors 5/5 Dorsal interossei 5/5 Dorsal interossei 5/5 Finger extension 5/5 Finger extension 5/5 Tone (Makeda scale) 0 Tone (Makeda scale) 0 Right Lower Extremity: Left Lower Extremity: Hip flexors 5/5 Hip flexors 5/5 Hip extensors 5/5 Hip extensors 5/5 Knee flexors 5/5 Knee flexors 5/5 Knee extensors 5/5 Knee extensors 5/5 Dorsiflexors 5/5 Dorsiflexors 5/5 Plantarflexors 5/5 Plantarflexors 5/5 Toe extensors 5/5 Toe extensors 5/5 Toe flexors 5/5 Toe flexors 5/5 Tone (Makeda scale) 0 Tone (Makeda scale) 0 Reflexes: brachioradialis ++ brachioradialis ++ biceps ++ biceps ++ triceps ++ triceps ++ patellar ++ patellar ++ Achilles ++ Achilles ++ Schaeffer's sign absent Schaeffer's sign absent clonus absent clonus absent plantar response down plantar response down Coordination testing in the arms and legs was performed including [id number], rapid-alternating, and fine movements. Rapid movements were smooth with good judi and there was no dysmetria or ataxia. No signs of cerebellar dysfunction. Sensory examination: Light touch: Normal all four extremities. Vibration: Normal in bilateral upper and lower extremities. Proprioception: Normal bilateral lower extremities. Romberg's test was normal. Gait was antalgic due to right knee pain but able to perform heel, toe, and tandem walking. REVIEW OF RECORDS: CTA head and neck 08/30/2023: No large vessel occlusion or flow limiting stenosis. EMG 07/07/2023: Electrodiagnostic examination of the right upper limb reveals: 1. No definite evidence of right median mononeuropathy at or distal to the wrist (ie: carpal tunnel syndrome). The right median orthodromic response is slightly prolonged, but this may be residual slowing from prior carpal tunnel release surgery. 2. No definite evidence of a right cervical (including C5-C8) motor radiculopathy, although an intraspinal canal lesion affecting only sensory nerve root fibers cannot be excluded based on this study. 3. Screening studies for ulnar and radial mononeuropathies did not reveal any definite abnormalities. EEG 04/20/2023: Normal REVIEW OF IMAGING STUDIES: MRI brain w/wo 10/23/2024: Mild burden of subcortical WM disease without clear periventricular, infratentorial, or juxtacortical lesions to suggest demyelinating disease. No GdE. Increase in burden of lesions vs. 08/30/2023 which may in part be due to technical differences in MRI since in comparison to MRI 05/16/2023 these lesions appear grossly stable. ASSESSMENT: 39 year old right handed female with relevant PMHx migraine, bipolar affective disorder, tobacco use, heterozygous factor V mutation, lupus anticoagulant disorder, DVT/PE, cervical spine disease s/p fusion (November 2022) presenting for evaluation of abnormal MRI brain. No history of typical demyelinating syndrome although patient reports x3 episodes of paroxysmal acute encephalopathy since March 2023 with interval progressive symptoms including difficulties with ambulation. Reassuringly, neurological examination today is unremarkable outside of antalgic gait due to right knee pain. Evaluation previously including MRI, CTA, EEG, and EMG have been unremarkable. MRI brain has shown subcortical WM lesions which on review are most likely due to non-specific changes related to migraine, ageing, tobacco use, and ? anti-phospholipid syndrome. Overall, low index of suspicion for DOCTOR OF CHIROPRACTIC inflammatory disease as etiology for abnormal MRI brain or symptoms but agree with MRI cervical and thoracic spine given the progression in WM lesions although these could be in the context of ageing, migraine, and tobacco use. Unclear etiology of paroxysmal symptoms for which continued follow up and monitoring is warranted. PLAN: - Agree with MRI cervical and thoracic spine as already scheduled later this month. - Virtual visit with me after to review. - Patient deferred XR of the right knee at this time and will discuss further with her PCP. - Encouraged smoking cessation. Office Visit on 12/18/[address] [facility] The chart was reviewed for possible participation in the following studies: None I spent a total of 60 minutes on the date of the service which included preparing to see the patient, [id number] patient care, completing clinical documentation, obtaining and/or reviewing separately obtained history, performing a medically appropriate examination, counseling and educating the patient/family/caregiver, and ordering medications, tests, or procedures. Nick Rachel MD [facility] documented in this encounter [facility] 12-18-2024 Note HNO ID: [id number] Author: NICK RACHEL MD Service: ? Author Type: Physician Type: Progress Notes Filed: 12/18/2024 15:32 Note Text: [facility] NEW PATIENT EVALUATION/CONSULTATION Referral source: Janet Fernandez [address] [place] [id number] Also followed by: Patient Care Team: Neli Tripp CNP as PCP - General (Family Medicine) PRINCIPAL NEUROLOGIC DIAGNOSIS: Abnormal MRI brain DISEASE SUMMARY Date of onset: No typical demyelinating syndrome Date of diagnosis of MS: None Disease course at onset: No typical demyelinating syndrome Current disease course: No typical demyelinating syndrome Previous disease therapies: None Current disease therapy: None Most recent MRI brain: 10/23/2024 Most recent MRI cervical spine: None CSF: None JCV serology result and date: None HISTORY OF ILLNESS: An opinion on this 39 year old right handed female was requested by the referring physician for a second opinion on abnormal brain MRI. The patient was accompanied by her work friend. Previous records (physician notes, laboratory reports, and radiology reports) and imaging studies were reviewed and summarized. My recommendations will be communicated back to the patient's physician(s) via electronic medical record. Follow-up is expected to be with me or the referring physician based on results of planned workup. The patient consented to the use of [employer] software for draft documentation of the visit, consistent with [facility]?s Notice of Privacy Practices. Patient is currently being evaluated by general neurology, headache neurology, and cerebrovascular center. Cody reports that her symptoms began in March 2023 with a sudden onset of weakness, dizziness, and a sensation of impending collapse while at work. She describes feeling spaced out and unable to speak or comprehend fully, leading to an emergency department visit where a stroke was suspected. She was hospitalized for three days, and her symptoms gradually improved over a month, though she notes that her memory has never fully returned. In July 2023, she experienced a similar episode, though less severe, which was initially thought to be a migraine. In October 2024, she had another episode at work, characterized by sudden onset of speech difficulty and numbness from the waist down. These episodes reportedly resolve within a few hours, but she notes that her memory and lower body numbness have not fully returned to baseline. Cody reports persistent numbness and pain in her right knee and hips, describing a sensation of separation between her hips and pelvis. She also experiences difficulty with mobility, including tripping over her feet and being unable to move her right leg at times. These symptoms have been progressively worsening, and she notes that she has been stuck in positions where she cannot move without assistance. She also reports increased sensitivity to temperature changes and itching without a known cause. She does not endorse any specific triggers for her symptoms and notes that her psychiatric medications have been stable for the past three years. Cody has a history of migraines for the past 3-4 years, which have been well-controlled with Aimovig injections. She does not report headaches associated with her episodes of weakness and dizziness. She has a history of multiple thromboembolic events, including deep vein thrombosis and pulmonary embolism, and is currently on Eliquis. She also has a history of cervical spine fusion surgery in November 2022 for neck tightness and right arm numbness, which reportedly improved after surgery. Cody has a family history of Paiz's palsy in her great-grandmother. She does not endorse any family history of multiple sclerosis or other neurological disorders. She is a current smoker, smoking approximately three-fourths of a pack per day for the past 22 years. She does not consume alcohol. Neuro-QoL Functions (higher=better functioning) Flowsheet Row Office Visit from 12/18/2024 in [facility] Upper Extremity Domain T Score 36 Lower Extremity Domain T Score 39 Cognitive Function Domain T Score 33 Positive Affect Well Being T Score -- Ability To Participate In Social Roles T Score 38 Satisfaction With Social Roles T Score 36 Neuro-QoL Symptoms (higher=worse symptoms) Flowsheet Row Office Visit from 12/18/2024 in [facility] Sleep Domain T Score 67 Fatigue Domain T Score 63 Anxiety Domain T Score 48 Depression Domain T Score 47 Stigma Domain T Score 60 Emotional Behavior Dyscontrol T Score -- PAST HISTORY: has a past medical history of Bipolar affective ([facility]), DVT (deep venous thrombosis) ([facility]), Migraine, and Pulmonary embolism ([facility]). has a past surgical history that includes revise median n/carpal tunnel surg (Bilateral, 2016). has a current medication list which includes the following presc (more content not included)... [facility] 11-14-2024 History of Present illness Narrative Images from the original note were not included. [facility] [place] Follow-up Visit Follow-up note November 14, 2024 HPI: Ms. Santana presents today for a follow-up visit. Per her previous visit on 09/14/23: R29.810 Facial weakness (primary encounter diagnosis) R20.0 Facial numbness R44.9 Sensory deficit, right R41.3 Memory change G43.009 Migraine without aura and without status migrainosus, not intractable R47.9 Speech disturbance, unspecified type Comment: Pt previously seen for left facial weakness associated with difficulty with speech and abnormal behavior. She denied associated convulsions, loss of control of B/B, tongue/cheek bite. Previous workup completed through [facility] included MRI brain, CTA head/neck, and echocardiogram. At time of follow up, sensory deficit persisted and MRI of brain WO/W was ordered. MRI noting multiple areas of chronic microvascular were reported to be nonspecific (hx of substance use, smoker, head injury) EEG also unremarkable. Additional testing has included EMG/NCV of BUE given ongoing RUE numbness with results noting past CTS surgery but no ongoing process. She has also since completed with report of SVT x3 (she reports increased energy drink consumption) but no evidence of A-fib. She did have a hospitalization since her previous appointment at which time she felt generally weak in both legs and noted slurred/garbled speech. Workup was completed through [facility] at that time including CT brain, CTA head/neck, and MRI brain. She was diagnosed with a TIA on discharge. Records were requested and test results/ED note above. Of note, she is currently taking Eliquis (hx of factor V and VTE) and BP appears to be within normal range at time of admission as well as at appointment today. BLE weakness would not be consistent with TIA, however, given slurred speech and history of factor V as well as hx of TIA, will place referral to cerebrovascular clinic for further evaluation. Additional concern at time of previous appointment that symptoms were secondary to migraine. She is currently taking Tpx 200mg BID as prescribed by psychiatry. She was also transitioned from Imitrex to Nurtec given concern for TIA. She reports minimal relief of symptoms with use of Nurtec on an as needed basis. Consult was previously placed to the headache clinic for further management of headaches and she reports upcoming appointment in September. Today, she reports headaches have been bothersome and present in AM upon waking. On further discussion she reports daytime fatigue and intake of 4-5 energy drinks p/day. Concern that both energy drink intake (high caffeine) and sleep disorder (see below) may contribute to QUINTANA and would recommend decreasing consumption. Discussed options regarding medications. Will avoid use of BB given hx of depression and will avoid use of TCA or other antidepressant, again given psychological hx. Could consider use of gabapentin, however, given possible side effects on mood she would like to avoid use of medication (also noting she is currently on Tpx and Lamictal). At this time will attempt to utilize Nurtec as a daily preventative medication and will increase to once daily every other day. However, would ask that she keep appointment with [facility] clinic for alternative medication recommendations. R53.83 Other fatigue R06.83 Snoring Comment: Pt reports snoring, daytime fatigue, and AM headaches. Concern for possible LINDA and she is agreeable to complete HSAT for further evaluation. Interim Review: Per my personal records review on 10/31/24: Records received from [facility] and reviewed as below: Patient reportedly presented to the ED due to difficulty getting words out at work. Symptoms were preceded by a 2-week long migraine. NIH SS completed in ED with score of 3 due to slight L lid droop, slight L leg drift, and slight decrease in sensation to L UE. No TNK administered due to concurrent use of Eliquis. She was admitted for MRI and migraine treatment. Echo (TTE) normal. CT brain without acute intracranial abnormality. CTA head/neck demonstrating patent circulation without stenosis. MRI brain W/WO demonstrating multiple white matter changes some with radial orientation concerning for presence of demyelinating disease per report. It was felt that symptoms were atypical presentation of migraine. She was discharged home with recommendation to continue Aimovig and Topamax. She continues to take Eliquis for history of factor V. Hospital records to be scanned to chart. She has had evaluation by the headache clinic since time of the event as noted below. Per Zulema Escobedo PA-C on 10/25/24: IMPRESSION: Cody Santana is a 39 year old year old female, with a history of chronic migraines, anxiety, bipolar disorder, depression, factor V Leiden, cervical stenosis status post fusion, carpal tunnel syndrome status post release, and osteoporosis. Their neurological examination is essentially normal at this visit although this is limited due to nature of telehealth. 1. Chronic migraine without aura with status migrainosus, not intractable (G43.701) - Patient has been experiencing a migraine for 14 days, with increasing photophobia, phonophobia, and pressure sensation bilaterally in the frontal region. No throbbing component reported. - Recent hospitalization for symptoms mimicking a stroke; CT and MRI performed, with CT showing dots of unknown etiology. Symptoms of dysphasia and diffuse paresthesia have resolved post-hospitalization. - Aimovig 70 mg monthly injection has been effective in the past but was missed this month due to prior authorization expiration due to lack of follow-up - Nurtec taken consistently during the current migraine episode with temporary relief. - Ordered Aimovig 70 mg injection and initiated prior authorization process; sent prescription to [facility] in [facility]. Discussed [facility] home delivery to expedite the process but patients insurance will only cover it being sent to [facility]. - Prescribed Parafon Forte 500 mg TID for 5 days; instructed to withhold Robaxin during this period. Other cycle breakers limited due to recent steroid usage, avoid Depakote with Lamictal usage, avoid NSAIDs given history and current medication regimen. - Advised continuation of Nurtec as needed and discussed potential use as a preventative measure every other day for the time being while waiting to restart Aimovig - Educated on the importance of regular follow-up appointments to prevent lapses in medication coverage. - Patient to follow up with Dr. Janet Fernandez on the and Dr. Monge in February. - Advised to bring all hospital records to upcoming appointments for comprehensive review and to update in our system. - Discussed potential for migraine infusions if current treatment is ineffective; patient to contact clinic if symptoms persist post-treatment. Appropriate refills were prescribed. All questions & concerns were addressed. Regular monitoring of CBC + CMP was encouraged to evaluate for kidney/liver function and electrolytes related to long-term medication usage. Patient verbalized understanding and agreed to treatment plan. She is also following with cerebrovascular. Per Adelso Wooten CNP on 08/28/24: IMPRESSION Transient confusion, right facial weakness, speech disturbance March 2023. MRI 2 months later without evidence of stroke. Possible TIA or small stroke not seen on delayed imaging. Patient has had multiple VTE's, including DVT in December 2023, therefore suspect hypercoagulable state as etiology of possible TIA. She is seeing Hematology who has recommended anticoagulation indefinitely Daytime sleepiness Tobacco use disorder PLAN Consider in lab sleep study. She will let me know if she wants to pursue this Continue chip navarro Hematology Discussed smoking cessation Follow up in 1 year, or sooner if needed Today: Went to ED d/t difficulty getting words out. She is uncertain this lasted but maybe 1.5 hours. Had had a three week migraine at that time as she was unable to get Aimovig. Remembers sitting in the car and started to feel spacey. States from waist down went numb. L leg and arm felt different. Sx did not get better after migraine medication. Pt reports she was given a report with MRI results and a report with lab results. States something with MRI results showed spots but they are not sure what they are. States she was told she needs to take in Sodium. Presents with some lab results but no sodium level available. States entire body hurts. Has been like this for two weeks. No focal weakness, however, [place] Joints ache. Feels like stomach is tight. R knee has been swollen. Difficulty driving because of pain pushing on gas pedal. Shoulders are uncomfortable. Has an appointment with rheum because [place] [facility] recommended this. Had positive testing (?). On review of labs she provides ALFONZO is positive but RF is normal. CRP normal. No blurred or double vision. No speech changes or difficulty swallowing. No past medical history on file. PAST SURGICAL HISTORY Procedure Laterality Date REVISE MEDIAN N/CARPAL TUNNEL SURG Bilateral 2016 Current Outpatient Medications on File Prior to Visit Medication Sig chlorzoxazone (PARAFON FORTE DSC) 500 mg tablet Take 1 tablet (500 mg) by mouth four times a day until headache free for 24 hours or take for full 5 days. erenumab-aooe (AIMOVIG AUTOINJECTOR) 70 mg/mL auto-injector Inject 1 mL subcutaneously once every month. lidocaine (LIDODERM) 5 % Apply 1 Patch as directed every 24 hours. HYDROcodone-acetaminophen (NORCO) 5-325 mg per tablet Take 1 tablet by mouth every 8 hours as needed for pain. methocarbamol (ROBAXIN) 500 mg tablet Take 500 mg by mouth four times daily. rimegepant (NURTEC ODT) 75 mg disintegrating tablet Take 1 tablet by mouth once daily as needed (Migraine). albuterol HFA (PROVENTIL HFA, VENTOLIN HFA) 90 mcg/actuation inhaler Inhale 2 Puffs as instructed every 6 hours as needed for wheezing/shortness of breath. medroxyPROGESTERone (DEPO-PROVERA) 150 mg/mL injection Inject 150 mg intramuscularly every 12 weeks. ELIQUIS 5 mg tab(s) Take 1 tablet by mouth every 12 hours. cetirizine (ZYRTEC) 10 mg tablet Take 10 mg by mouth once daily. cholecalciferol (VITAMIN D3) 1,000 unit tab tablet [...] montelukast (SINGULAIR) 10 mg tablet Take 1 tablet by mouth every afternoon. nystatin (MYCOSTATIN) powder APPLY POWDER TOPICALLY TWICE TO THREE TIMES DAILY TO GROIN AREA DIRECTED topiramate (TOPAMAX) 200 mg tablet Take 200 mg by mouth two times a day. haloperidol (HALDOL) 5 mg tablet Take 5 mg by mouth as needed (for anxiety). No current facility-administered medications on file prior to visit. Social History Tobacco Use Smoking status: Every Day Current packs/day: 1.00 Average packs/day: 1 pack/day for 21.9 years (21.9 ttl pk-yrs) Types: Cigarettes Start date: 12/17/2002 Smokeless tobacco: Never Vaping Use Vaping status: Some Days Substances: Nicotine Devices: Disposable Substance Use Topics Alcohol use: Not Currently Drug use: Not Currently ALLERGIES Allergen Reactions Keflex [Cephalexin] Other: See Comments Achy, weak Percocet [Oxycodone* Other: See Comments Nose itch Review of Systems: Cardiopulmonary: denies chest pain, palpitations Respiratory: denies shortness of breath GI/: denies recent nausea, vomiting, + diarrhea, constipation, incontinence Musculoskeletal: denies weakness Neuro: denies tremors, loss of feeling, dizziness, seizure, blackout, + paresthesia, facial paresthesia, facial weakness, difficulty in speech, slurring of words, dysarthria, dysphagia, + headache, vision changes Physical Exam: 11/14/24 1006 BP: 112/67 BP Site: Right Arm BP Position: Sitting BP Cuff Size: Regular Adult Pulse: 87 SpO2: 99% Weight: 87.1 kg (192 lb) Height: 157.5 cm (5' 2) Patient is alert and in no distress. Dress is appropriate. Mood is appropriate Breathing appears regular and unstressed Neurologic examination: Cognitively intact. No deficits. No formal MOCA performed. CN: Pupils equal and reactive to light, extraocular movements intact with no nystagmus, face is symmetric with no facial droop, facial sensation intact bilaterally to light touch. V1-3, hearing intact bilaterally, symmetric evaluation of the soft palate, tongue is midline with no deviation, shoulder shrug is symmetric. Motor Examination: Right Upper Extremity: (of 5) Left Upper Extremity: (of 5) Shoulder Abduction: Deltoid (Ax/C5) 5 Shoulder Abduction 5 Elbow Flexion: Biceps (MC/R and C5/6) 5 Elbow Flexion 5 Elbow Extension: Triceps (R/C7) 5 Elbow Extension 5 Wrist Flexion (M/U and C6/7) 5 Wrist Flexion 5 Wrist Extension (R/C6) 5 Wrist Extension 5 Finger Abduction (U/T1) 5 Finger Abduction 5 Mastercam Programmer 5 Mastercam Programmer 5 Right Lower Extremity: (of 5) Left Lower Extremity: (of 5) Hip Flexion: Iliopsoas (F and L1/2) 5 Hip Flexion 5 Knee Extension: Quadriceps (F and L3/4) 5 Knee Extension 5 Knee Flexion: Hamstrings (S/S1) 5 Knee Flexion 5 Dorsiflexion: Tibialis Anterior (DP and L4/5) 5 Dorsiflexion 5 Plantarflexion: Gastrocnemius/Soleus (T and S1/2) 5 Plantarflexion 5 Reflexes: Right Extremities Left Extremities: Triceps (C7-8R) 2+ Triceps 2+ Biceps (C5-6MC) 2+ Biceps 2+ Brachioradialis (C5-6R) 2+ Brachioradialis 2+ Patellar (L3-4F) 2+ Patellar 2+ Achilles (S1-2S) 2+ Achilles 2+ Ankle Clonus: negative bilaterally Schaeffer's: + R Sensory Intact to light touch upper and lower extremities bilaterally Temperature: intact in all extremities Normal toe and finger vibratory sensation Coordination: No dysmetria on finger to nose. No tremors noted. No drift seen. Gait normal in stance and pattern. Labs/studies: MRI Brain 08/30/23: CTA 08/30/23: EMG 07/07/23: Electrodiagnostic examination of the right upper limb reveals: 1. No definite evidence of right median mononeuropathy at or distal to the wrist (ie: carpal tunnel syndrome). The right median orthodromic response is slightly prolonged, but this may be residual slowing from prior carpal tunnel release surgery. 2. No definite evidence of a right cervical (including C5-C8) motor radiculopathy, although an intraspinal canal lesion affecting only sensory nerve root fibers cannot be excluded based on this study. 3. Screening studies for ulnar and radial mononeuropathies did not reveal any definite abnormalities. 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 MQ: [id number] Contrast: 20 mL Dotarem IV COMPARISON: None. RESULT: Acute Change: There is no evidence of restricted diffusion to suggest an acute infarct. Mass Lesion/ Mass Effect: No evidence of an intracranial mass or extra-axial fluid collection. No abnormal parenchymal or leptomeningeal enhancement is noted following contrast administration. No significant mass effect. Chronic Change: There are scattered T2/FLAIR hyperintensities in the white matter, both the subcortical and periventricular white matter. However, no involvement of the corpus callosum or callosal septal interface, and no infratentorial lesions. Parenchyma: No significant volume loss for age. The brain parenchyma is otherwise within normal limits of signal intensity and morphology. Specifically, the brainstem is normal in appearance. There is no evidence of a mass in the region of either IAC or elsewhere in the posterior fossa. No abnormal enhancement is noted in the basilar cisterns, along the course of the 7/8 cranial nerve complexes, or in the region of the inner ear complexes. No abnormal parenchymal or leptomeningeal enhancement is noted following gadolinium administration. Inner ear structures appear to be within normal limits on the high resolution axial T2 SPACE sequence. Ventricles: Normal caliber and morphology. Skull Base: Hypothalamic and pituitary region are grossly normal. Craniocervical junction is normal. No significant marrow replacement process. Vasculature: Major intracranial arterial structures, and dural venous sinuses show typical flow void, suggesting patency by spin echo criteria. Other: The visualized paranasal sinuses and mastoid air cells are clear. The orbits and extracranial soft tissues are unremarkable. Impression: IMPRESSION: Scattered T2/FLAIR hyperintensities in the white matter, both the subcortical and periventricular white matter, which are nonspecific but may be due to mild chronic microvascular change/remote insult/sequela of migraines. No involvement of the corpus callosum or callosal septal interface, and no infratentorial lesions to indicate demyelination by imaging. However, consider correlation with clinical parameters. Otherwise, unremarkable MRI of the brain. Normal appearance of the bilateral seventh/8th nerve complexes and inner ear complexes, without abnormal enhancement.. Transcribed Using Voice Recognition Transcribe Date/Time: May 16 2023 5:02P Dictated by: CRISSY HARDEN MD This examination was interpreted and the report reviewed and electronically signed by: CRISSY HARDEN MD on May 16 2023 5:10PM EST EEG 04/20/23: Impression: This EEG is within normal limits. No epileptiform discharges or EEG seizures were seen during this recording. Assessment/Plan: 1. Abnormal finding on MRI of brain (R90.89) Pt presents after recent hospitalization for transient episode of speech disturbance and abnormal L sensation. MRI brain completed as part of workup on admission. Images are not available for review, however, per rad report multiple white matter changes some with radial orientation concerning for demyelinating ds. Previous MRI also showed mild, non-specific white matter changes, however, as previously noted images not available for comparison. On discussion regarding other symptoms, she does report tightness to abdomen but no vision changes, speech changes (other than recent episode), dysphagia, focal weakness, paresthesia (other than recent episode). Exam noting slightly brisk reflexes symmetrically throughout. + R Schaeffer's and no ankle clonus. - Patient to obtain a copy of the MRI disc from [facility] and deliver it to the [facility] office for upload to the chart. - Ordered MRIs of the cervical and thoracic spine to investigate potential demyelinating lesions. - Will review MRI images once uploaded; should changes be nonspecific may consider deferring MRI spine. - If findings are concerning for MS, will refer to a [facility] provider in [place] for further evaluation. 2. Migraine without aura and without status migrainosus, not intractable (G43.009) Facial weakness (R29.810) Facial numbness (R20.0) Speech disturbance, unspecified type (R47.9) History of TIA (transient ischemic attack) (Z86.73) Patient experienced an episode of difficulty with speech and numbness from the waist down, lasting approximately 1.5 hours. Also reported feeling spacey and noted differences in sensation in the left leg and arm. She was admitted to [facility] (see course above) where stroke workup was completed inlcuding MRI Brain, echo, CTA head/neck. Sx were felt to be atypical presentation of migraine. On discussion today she reports she did run out of migraine preventative (Aimovig) and had been experiencing 3 week long migraine. Since discharge she has had follow up with the headache clinic and has obtained medication. - Continue to follow with the headache clinic. - Continue to follow with cerebrovascular. Office Visit on 11/14/24 MRI CERVICAL SPINE WO/W IVCON MRI THORACIC SPINE WO/W IVCON Janet Fernandez APRN.KOLE I spent a total of 40 minutes on the date of the service which included preparing to see the patient, [id number] patient care, completing clinical documentation, obtaining and/or reviewing separately obtained history, performing a medically appropriate examination, counseling and educating the patient/family/caregiver, and ordering medications, tests, or procedures. documented in this encounter [facility] 11-14-2024 Note HNO ID: [id number] Author: JANET FERNANDEZ APRN.CNP Service: ? Author Type: Nurse Practitioner Type: Progress Notes Filed: 11/14/2024 12:02 Note Text: [facility] [place] Follow-up Visit Follow-up note November 14, 2024 HPI: Ms. Santana presents today for a follow-up visit. Per her previous visit on 09/14/23: R29.810 Facial weakness (primary encounter diagnosis) R20.0 Facial numbness R44.9 Sensory deficit, right R41.3 Memory change G43.009 Migraine without aura and without status migrainosus, not intractable R47.9 Speech disturbance, unspecified type Comment: Pt previously seen for left facial weakness associated with difficulty with speech and abnormal behavior. She denied associated convulsions, loss of control of B/B, tongue/cheek bite. Previous workup completed through [facility] included MRI brain, CTA head/neck, and echocardiogram. At time of follow up, sensory deficit persisted and MRI of brain WO/W was ordered. MRI noting multiple areas of chronic microvascular were reported to be nonspecific (hx of substance use, smoker, head injury) EEG also unremarkable. Additional testing has included EMG/NCV of BUE given ongoing RUE numbness with results noting past CTS surgery but no ongoing process. She has also since completed with report of SVT x3 (she reports increased energy drink consumption) but no evidence of A-fib. She did have a hospitalization since her previous appointment at which time she felt generally weak in both legs and noted slurred/garbled speech. Workup was completed through [facility] at that time including CT brain, CTA head/neck, and MRI brain. She was diagnosed with a TIA on discharge. Records were requested and test results/ED note above. Of note, she is currently taking Eliquis (hx of factor V and VTE) and BP appears to be within normal range at time of admission as well as at appointment today. BLE weakness would not be consistent with TIA, however, given slurred speech and history of factor V as well as hx of TIA, will place referral to cerebrovascular clinic for further evaluation. Additional concern at time of previous appointment that symptoms were secondary to migraine. She is currently taking Tpx 200mg BID as prescribed by psychiatry. She was also transitioned from Imitrex to Nurtec given concern for TIA. She reports minimal relief of symptoms with use of Nurtec on an as needed basis. Consult was previously placed to the headache clinic for further management of headaches and she reports upcoming appointment in September. Today, she reports headaches have been bothersome and present in AM upon waking. On further discussion she reports daytime fatigue and intake of 4-5 energy drinks p/day. Concern that both energy drink intake (high caffeine) and sleep disorder (see below) may contribute to QUINTANA and would recommend decreasing consumption. Discussed options regarding medications. Will avoid use of BB given hx of depression and will avoid use of TCA or other antidepressant, again given psychological hx. Could consider use of gabapentin, however, given possible side effects on mood she would like to avoid use of medication (also noting she is currently on Tpx and Lamictal). At this time will attempt to utilize Nurtec as a daily preventative medication and will increase to once daily every other day. However, would ask that she keep appointment with [facility] clinic for alternative medication recommendations. R53.83 Other fatigue R06.83 Snoring Comment: Pt reports snoring, daytime fatigue, and AM headaches. Concern for possible LINDA and she is agreeable to complete HSAT for further evaluation. Interim Review: Per my personal records review on 10/31/24: Records received from [facility] and reviewed as below: Patient reportedly presented to the ED due to difficulty getting words out at work. Symptoms were preceded by a 2-week long migraine. NIH SS completed in ED with score of 3 due to slight L lid droop, slight L leg drift, and slight decrease in sensation to L UE. No TNK administered due to concurrent use of Eliquis. She was admitted for MRI and migraine treatment. Echo (TTE) normal. CT brain without acute intracranial abnormality. CTA head/neck demonstrating patent circulation without stenosis. MRI brain W/WO demonstrating multiple white matter changes some with radial orientation concerning for presence of demyelinating disease per report. It was felt that symptoms were atypical presentation of migraine. She was discharged home with recommendation to continue Aimovig and Topamax. She continues to take Eliquis for history of factor V. Hospital records to be scanned to chart. She has had evaluation by the headache clinic since time of the event as noted below. Per Zulema Escobedo PA-C on 10/25/24: IMPRESSION: Cody Santana is a 39 year old year old female, with a history of chronic migraines, anxiety, bipolar disorder, (more content not included)... [facility] 10-31-2024 Note HNO ID: [id number] Author: JANET FERNANDEZ APRN.PLUCK SEPARATOR Service: ? Author Type: Nurse Practitioner Type: Progress Notes Filed: 10/31/2024 11:24 Note Text: Records received from [facility] and reviewed as below: Patient reportedly presented to the ED due to difficulty getting words out at work. Symptoms were preceded by a 2-week long migraine. NIH SS completed in ED with score of 3 due to slight L lid droop, slight L leg drift, and slight decrease in sensation to L UE. No TNK administered due to concurrent use of Eliquis. She was admitted for MRI and migraine treatment. Echo (TTE) normal. CT brain without acute intracranial abnormality. CTA head/neck demonstrating patent circulation without stenosis. MRI brain W/WO demonstrating multiple white matter changes some with radial orientation concerning for presence of demyelinating disease per report. It was felt that symptoms were atypical presentation of migraine. She was discharged home with recommendation to continue Aimovig and Topamax. She continues to take Eliquis for history of factor V. Hospital records to be scanned to chart. [facility] 10-25-2024 Instructions Antwon Escobedo PA-C - 10/25/2024 9:43 AM EDT Aimovig 70 mg (migraine preventive): A prior authorization has been submitted and your refill will be sent to your [facility] pharmacy. Use one injection once a month as before. Nurtec (migraine rescue): Continue taking it as needed; you have an adequate supply at home. Parafon Forte burst (muscle relaxer for headache): Use this 5?day course to help calm your migraine. Take it four times a day (approximately every six hours). Do not take your Robaxin while using this medication. If you are headache?free for 24 hours before finishing the course, you may stop early. Monitor closely for sedative side effects. Please take initially in a safe environment at home and do not drive while monitoring for effects of medication. Please bring all hospital paperwork and imaging (CT/MRI reports) to your upcoming neurology appointment on the in [place]. If your headache continues after finishing the Parafon Forte burst or worsens, please call our office for further guidance. Parafon Forte (Chlorzoxazone) - 500 mg Take 1 tablet (500 mg) by mouth four times a day until headache free for 24 hours or take for 5 days. This has been prescribed for a limited time as bridge therapy to help you break this severe headache cycle. This is a muscle relaxer. Do not take any other muscle relaxers, triptans, OTC pain meds, or opioids while taking this medication. This medication may make you drowsy. Please do not drive or operate machinery while taking this medication. documented in this encounter [facility] 10-25-2024 History of Present illness Narrative Images from the original note were not included. [facility] - Follow up Virtual Visit This visit was conducted as a virtual visit, with patient's permission, via Zoom. Patient location - Josue Santana was identified by name and and consented to the video evaluation and its limitations. Based on this evaluation it may be necessary for them to schedule a follow up evaluation with me or other neurologists for formal physical examination and if necessary,other studies. I have communicated my name and active licensure. The patient's identity and physical location were verified at the time of this visit. Either the patient or their legal vendor representatives has been informed of the risks and benefits of -- and alternatives to -- treatment through a remote evaluation and consents to proceed with the evaluation remotely. Accompanied by: Self Primary Problem List: There is no problem list on file for this patient. Chief Complaint: Migraines and Medication management Impression and Plan from last visit on 10/02/[address] Monge: 37-year-old female with a history of anxiety, bipolar disorder, depression, factor V Leiden, cervical stenosis status post fusion, carpal tunnel syndrome status post release, osteoporosis, and possible TIA presented with headaches more suggestive of chronic migraines without aura. I discussed the diagnosis with her. I am not convinced that her episodes were in fact TIAs but given the fact that I never personally witnessed them I do not at this point have a good alternative explanation. If she is surrounded by other people when another episode occurs it may be a good idea to have somebody video it. Otherwise, it would be reasonable to continue avoiding triptans as a precaution. We will continue Nurtec as an abortive. I emphasized the critical importance of lifestyle changes including limiting caffeine, good sleep hygiene, and improving hydration. She is scheduled for an HSAT and if she does indeed have obstructive sleep apnea this will require management as part of her headache treatment strategy. She needs a better prophylactic treatment. She has never tried antihypertensives but her blood pressure is fairly low at baseline so these will be contraindicated. Otherwise she has tried multiple prophylactic medications as above. I recommend Aimovig monthly. Patient is in agreement. Follow-up in 5 months or earlier if needed. All questions were answered. PLAN: -Lifestyle medications as above -Aimovig 70 mg monthly for migraine prevention -Continue Nurtec as needed for migraine - to call sooner if any questions or concern Interval Headache History: Cody is a 39-year-old female with a history of migraines presenting for evaluation of a persistent migraine. Cody reports a 14-day migraine, which she attributes to missing her Aimovig 70 mg monthly dose due to a lapsed prior authorization. She describes the headache as a constant pressure around her head, worsening with exposure to loud noises at work. She does not endorse a throbbing component currently. The longer the migraine persists, the more sensitive she becomes to light and sound. She has experienced some nausea but has not vomited. She notes that the migraine is weighing on her. She has been using Nurtec as needed with headache cycle, which provides temporary relief, but the migraine returns. Previously, nurtec, rest, and sleep would alleviate her migraines, but these measures are no longer effective. She was recently hospitalized for two days due to the severity of the migraine, which reportedly mimicked stroke symptoms. The symptoms entail language disturbance with difficulty communicating with her daughter that progressed into diffuse numbness and tingling. The hospitalization documentation was not available today and I was unaware prior to the appointment this had occurred. During the hospitalization, she received a headache cocktail that provided only temporary relief ( Unsure of medications used). She also underwent a CT and MRI, which reportedly ruled out a stroke. She has a follow-up appointment with a neurologist on the . She has a history of a possible TIA and is currently taking Eliquis. She does not report any recent use of steroids or muscle relaxers for migraine relief. Upon further investigation, she had a Medrol Dosepak at the end of August and prednisone taper in mid September. She is also taking Topamax 200 mg twice daily and Lamictal 200 mg daily. She reports significant stressors, including increased responsibilities at work due to a colleague's absence and her oldest child being away in [place] for a month. She believes these stressors may be contributing to the persistence of her migraine. Past Diagnostic Results: Imaging - CT and MRI: No evidence of stroke. Preventative: Aimovig 70 mg once monthly, Topamax 200mg bid Rescue: Nurtec Headache 1 Location: bilateral, frontal and holcephalic Quality/Description: pressure Associated Symptoms: Photophobia: yes Phonophobia: yes Nausea: yes Vomiting: no Other symptoms: language disturbance, numbness and confusion Worse with activity: yes Number of migraine headache days/month: 14 Number of headache free days/month: 14 Days missed from work or school in the last month: 1.5 days Review of Systems: Review of system : unchanged from the previous visit (sleep patterns, mood, energy, appetite, stress, exercising). Prior Therapies Duration of Use Dose Reason for Discontinuation History reviewed. No pertinent past medical history. PAST SURGICAL HISTORY Procedure Laterality Date REVISE MEDIAN N/CARPAL TUNNEL SURG Bilateral 2016 ALLERGIES Allergen Reactions Keflex [Cephalexin] Other: See Comments Achy, weak Percocet [Oxycodone* Other: See Comments Nose itch Current Medications: chlorzoxazone (PARAFON FORTE DSC) 500 mg tablet Take 1 tablet (500 mg) by mouth four times a day until headache free for 24 hours or take for full 5 days. erenumab-aooe (AIMOVIG AUTOINJECTOR) 70 mg/mL auto-injector Inject 1 mL subcutaneously once every month. lidocaine (LIDODERM) 5 % Apply 1 Patch as directed every 24 hours. HYDROcodone-acetaminophen (NORCO) 5-325 mg per tablet Take 1 tablet by mouth every 8 hours as needed for pain. methocarbamol (ROBAXIN) 500 mg tablet Take 500 mg by mouth four times daily. rimegepant (NURTEC ODT) 75 mg disintegrating tablet Take 1 tablet by mouth once daily as needed (Migraine). albuterol HFA (PROVENTIL HFA, VENTOLIN HFA) 90 mcg/actuation inhaler Inhale 2 Puffs as instructed every 6 hours as needed for wheezing/shortness of breath. medroxyPROGESTERone (DEPO-PROVERA) 150 mg/mL injection Inject 150 mg intramuscularly every 12 weeks. ELIQUIS 5 mg tab(s) Take 1 tablet by mouth every 12 hours. cetirizine (ZYRTEC) 10 mg tablet Take 10 mg by mouth once daily. cholecalciferol (VITAMIN D3) 1,000 unit tab tablet [...] montelukast (SINGULAIR) 10 mg tablet Take 1 tablet by mouth every afternoon. nystatin (MYCOSTATIN) powder APPLY POWDER TOPICALLY TWICE TO THREE TIMES DAILY TO GROIN AREA DIRECTED topiramate (TOPAMAX) 200 mg tablet Take 200 mg by mouth two times a day. haloperidol (HALDOL) 5 mg tablet Take 5 mg by mouth as needed (for anxiety). I have reviewed the Health Status Assessment responses and discussed these with the patient: yes Antwon Escobedo PA-C HEADACHE SCORES: 10/01/2023 10/25/2024 Headache Questions ID Migraine Screener: 3 (Positive) ER visits in the last year: 0 ER visits since last office visit: 1 Hospital stays in the last year: 0 Hospital stays since last office visit 1 Limited ADLs in the last month: 3 5 Days missed from work or school in the last month: 0 1.5 Days headache pain free in the last month: 5 14 Days per month with ALL of the following symptoms - decreased productivity, light sensitivity and nausea: 11 8 PRN medication usage in the last month: 10 14 Patient impression of improvement since last visit: Much worse 10/01/2023 10/25/2024 HIT-6 HIT-6 59 (Substantial impact) 58 (Substantial impact) 09/12/2023 10/01/2023 10/25/2024 JUAN MANUEL - 2/7 SCORES JUAN MANUEL-2 Score 2 3 0 JUAN MANUEL-7 Score 8 12 10/01/2023 10/25/2024 Migraine Specific QOL - Higher scores indicate better HRQL Role Function-Restrictive Transformed Score (range: 0-100) 60 62.86 Role Function-Preventive Transformed Score (range: 0-100) 65 65 Emotional Function Transformed Score (range: 0-100) 66.67 40 09/12/2023 02/28/2024 10/25/2024 PHQ-9 Score 14 5 2 Studies to Review: Yes MRI Head/Brain - Last 2 Impressions MRI BRAIN WO/W IVCON Exam End: 05/16/2023 4:13 PM (Final result) Impression: IMPRESSION: Scattered T2/FLAIR hyperintensities in the white matter, both the subcortical and periventricular white matter, which are nonspecific but may be due to mild chronic microvascular change/remote insult/sequela of ... MRA Head and/or Neck - Last 2 Impressions No resulted procedures found. CT Head/Brain - Last 2 Impressions No resulted procedures found. CTA Head and/or Neck - Last 2 No resulted procedures found. Labs to Review: No - Most recent CMP/BMP and CBC below CMP: No data to display CBC: No data to display New Health Issues: Yes, see HPI New Family History: No Review of Systems: Review of system: unchanged from the previous visit (sleep patterns, mood, energy, appetite, stress, exercising). Physical Examination: Vital Signs: No vital signs taken for this visit due to nature of virtual visit. General: well appearing, in no acute distress, alert Pain Behaviors: no pain behaviors observed Neurological: Mental Status: Alert and oriented to person, place and time. Affect is normal. Speech is spontaneous and fluent without dysarthria. Short and button riveter memory, cognition and general fund of knowledge are good. Attention span and concentration are excellent. HEENT: Head is normocephalic and features were symmetric. Musculoskeletal: Patient able to sit up right in chair for entirety of visit. Cranial Nerves: III, IV, -EOMI: full. VII-face is symmetric without evidence of weakness. VIII-hearing intact. IMPRESSION: Cody Santana is a 39 year old year old female, with a history of chronic migraines, anxiety, bipolar disorder, depression, factor V Leiden, cervical stenosis status post fusion, carpal tunnel syndrome status post release, and osteoporosis. Their neurological examination is essentially normal at this visit although this is limited due to nature of telehealth. 1. Chronic migraine without aura with status migrainosus, not intractable (G43.701) - Patient has been experiencing a migraine for 14 days, with increasing photophobia, phonophobia, and pressure sensation bilaterally in the frontal region. No throbbing component reported. - Recent hospitalization for symptoms mimicking a stroke; CT and MRI performed, with CT showing dots of unknown etiology. Symptoms of dysphasia and diffuse paresthesia have resolved post-hospitalization. - Aimovig 70 mg monthly injection has been effective in the past but was missed this month due to prior authorization expiration due to lack of follow-up - Nurtec taken consistently during the current migraine episode with temporary relief. - Ordered Aimovig 70 mg injection and initiated prior authorization process; sent prescription to [facility] in [facility]. Discussed [facility] home delivery to expedite the process but patients insurance will only cover it being sent to [facility]. - Prescribed Parafon Forte 500 mg TID for 5 days; instructed to withhold Robaxin during this period. Other cycle breakers limited due to recent steroid usage, avoid Depakote with Lamictal usage, avoid NSAIDs given history and current medication regimen. - Advised continuation of Nurtec as needed and discussed potential use as a preventative measure every other day for the time being while waiting to restart Aimovig - Educated on the importance of regular follow-up appointments to prevent lapses in medication coverage. - Patient to follow up with Dr. Janet Fernandez on the and Dr. Monge in February. - Advised to bring all hospital records to upcoming appointments for comprehensive review and to update in our system. - Discussed potential for migraine infusions if current treatment is ineffective; patient to contact clinic if symptoms persist post-treatment. Appropriate refills were prescribed. All questions & concerns were addressed. Regular monitoring of CBC + CMP was encouraged to evaluate for kidney/liver function and electrolytes related to long-term medication usage. Patient verbalized understanding and agreed to treatment plan. Future considerations: Alternate CGRP MAB, Ubrelvy, bilateral greater occipital nerve block, 3-day course of IV infusions, avoid triptans due to possible history of TIA Prior Authorization: Cody Santana has been previously approved for Calcitonin Gene Related Peptide Monoclonal Antibody (CGRP MAB) (Erenumab). The patient has demonstrated the following: Patient reduction in overall migraine days: Yes Patient reduction in moderate-severe migraine days: Yes Individual has obtained clinical benefit deemed significant by individual or prescriber: Yes Patient's quality of life and ability to perform ADLs has improved: Yes We suggest the patient continue treatment with CGRP MAB Erenumab. The following preventative medications have been tried for three or more months without benefit: The following abortive medications have been tried but require high frequency use which can lead to Medication Overuse Headache: Cody Santana has been previously approved for an Oral Calcitonin Gene-Related Peptide Receptor Antagonist (GEPANT) Rimegepant for the treatment of abortive use. The patient has demonstrated the following: Provider attests patient has had a positive clinical response: Yes Patient will not use with another Oral Calcitonin Gene-Related Peptide Receptor Antagonist (GEPANT): Yes Patient's quality of life and ability to perform ADLs has improved: Yes The patient has a contraindication TIA We suggest the patient continue treatment with GEPANT Rimegepant. The following preventative medications have been tried for three or more months without benefit: The following abortive medications have been tried but require high frequency use which can lead to Medication Overuse Headache: MEDICATION TREATMENT: Medications to Start Taking chlorzoxazone (PARAFON FORTE DSC) 500 mg tablet Take 1 tablet (500 mg) by mouth four times a day until headache free for 24 hours or take for full 5 days. erenumab-aooe (AIMOVIG AUTOINJECTOR) 70 mg/mL auto-injector Inject 1 mL subcutaneously once every month. RESEARCH: None at this time Follow-up: 3 months and call office ([phone]) with problems or concerns before appointment Level of Service: Virtual Visit 31 minutes Recording using [employer] software for draft documentation of the visit was discussed with the patient/authorized vendor representatives; all questions welcomed and answered. Patient/authorized vendor representatives agreed to proceed This note was partially generated using [employer] voice recognition system, and there may be some incorrect words, spellings, and punctuation that were not noted in checking the note before saving. Antwon Escobedo PA-C Headache Section [facility] 2024 documented in this encounter [facility] 10-25-2024 Note HNO ID: [id number] Author: ANTWON ESCOBEDO PA-C Service: ? Author Type: Physician Cap Sewer Type: Progress Notes Filed: 10/25/2024 09:44 Note Text: Headache Center - Follow up Virtual Visit This visit was conducted as a virtual visit, with patient's permission, via Zoom. Patient location - Josue Santana was identified by name and and consented to the video evaluation and its limitations. Based on this evaluation it may be necessary for them to schedule a follow up evaluation with me or other neurologists for formal physical examination and if necessary,other studies. I have communicated my name and active licensure. The patient's identity and physical location were verified at the time of this visit. Either the patient or their legal vendor representatives has been informed of the risks and benefits of -- and alternatives to -- treatment through a remote evaluation and consents to proceed with the evaluation remotely. Accompanied by: Self Primary Problem List: There is no problem list on file for this patient. Chief Complaint: Migraines and Medication management Impression and Plan from last visit on 10/02/[address] Monge: 37-year-old female with a history of anxiety, bipolar disorder, depression, factor V Leiden, cervical stenosis status post fusion, carpal tunnel syndrome status post release, osteoporosis, and possible TIA presented with headaches more suggestive of chronic migraines without aura. I discussed the diagnosis with her. I am not convinced that her episodes were in fact TIAs but given the fact that I never personally witnessed them I do not at this point have a good alternative explanation. If she is surrounded by other people when another episode occurs it may be a good idea to have somebody video it. Otherwise, it would be reasonable to continue avoiding triptans as a precaution. We will continue Nurtec as an abortive. I emphasized the critical importance of lifestyle changes including limiting caffeine, good sleep hygiene, and improving hydration. She is scheduled for an HSAT and if she does indeed have obstructive sleep apnea this will require management as part of her headache treatment strategy. She needs a better prophylactic treatment. She has never tried antihypertensives but her blood pressure is fairly low at baseline so these will be contraindicated. Otherwise she has tried multiple prophylactic medications as above. I recommend Aimovig monthly. Patient is in agreement. Follow-up in 5 months or earlier if needed. All questions were answered. PLAN: -Lifestyle medications as above -Aimovig 70 mg monthly for migraine prevention -Continue Nurtec as needed for migraine - to call sooner if any questions or concern Interval Headache History: Cody is a 39-year-old female with a history of migraines presenting for evaluation of a persistent migraine. Cody reports a 14-day migraine, which she attributes to missing her Aimovig 70 mg monthly dose due to a lapsed prior authorization. She describes the headache as a constant pressure around her head, worsening with exposure to loud noises at work. She does not endorse a throbbing component currently. The longer the migraine persists, the more sensitive she becomes to light and sound. She has experienced some nausea but has not vomited. She notes that the migraine is weighing on her. She has been using Nurtec as needed with headache cycle, which provides temporary relief, but the migraine returns. Previously, nurtec, rest, and sleep would alleviate her migraines, but these measures are no longer effective. She was recently hospitalized for two days due to the severity of the migraine, which reportedly mimicked stroke symptoms. The symptoms entail language disturbance with difficulty communicating with her daughter that progressed into diffuse numbness and tingling. The hospitalization documentation was not available today and I was unaware prior to the appointment this had occurred. During the hospitalization, she received a headache cocktail that provided only temporary relief ( Unsure of medications used). She also underwent a CT and MRI, which reportedly ruled out a stroke. She has a follow-up appointment with a neurologist on the . She has a history of a possible TIA and is currently taking Eliquis. She does not report any recent use of steroids or muscle relaxers for migraine relief. Upon further investigation, she had a Medrol Dosepak at the end of August and prednisone taper in mid September. She is also taking Topamax 200 mg twice daily and Lamictal 200 mg daily. She reports significant stressors, including increased responsibilities at work due to a colleague's absence and her oldest child being away in [place] for a month. She believes these stresso (more content not included)... [facility] 10-23-2024 Consult note [facility] 10-23-2024 Discharge summary [facility] 10-23-2024 Note [facility] Medical Records Department [address] [place] [address] Discharge Summary 10/23/24 1535 MR#: [id number] Acct: [id number] Name: CODY SANTANA Rep #: [id number] : 1985 38 From: Taye Delvalle MD PCP: Care Physician,No Primary Status:ADM MARGY Location: [place] [address] Providers Date of Admission: 10/22/24 Date of Discharge: 10/23/24 Primary Care Physician: No Primary Care Phys Consultations 10/22/24 22:35 Consult: Tele-Neurology Routine Consulting Provider: [facility] Reason for Consult: Acute Ischemic Stroke/TIA EMERGENT Consult: No MD Notified: No Date Notified: 10/22/24 Time Notified: 21:55 Nursing Unit Staff Notify [facility] of Tele-Neurology Consult: Yes Reason For Visit: L LEG WEAKNESS/QUINTANA/EXPRESSIVE APHASIA Diagnosis Discharge Diagnosis (1) Left leg weakness: Status: Acute Code(s): R29.898 - Other symptoms and signs involving the musculoskeletal system (2) Expressive aphasia: Status: Acute Code(s): R47.01 - Aphasia (3) Headache: Status: Acute Code(s): R51.9 - Headache, unspecified (4) Anemia: Status: Acute Code(s): D64.9 - Anemia, unspecified Plan 31-year-old female admitted with episode of decreased left leg strength/weakness, expressive aphasia, headache and generalized tiredness for about 1 week. On the day of admission, she felt the symptoms coming back and had difficulty finding words Left leg weakness/expressive aphasia/right arm paresthesias, headache probably atypical presentation of migraine: Patient is being admitted in PCU. CT head does not show acute infarct or hemorrhage mass effect or herniation. CTA head and neck reported patent anterior and posterior intracranial circulation patient without hemodynamically significant stenosis. MRI brain report bilateral cerebral white matter changes, some with radial orientation, concerning for possible demyelinating disease in a patient of this age. NIH stroke scale 0. After discussion with the patient states that she follows neurologist in [place] and she had MRI brain with and without contrast short while ago and it showed significant white matter changes. Since this is not new finding and given option of follow-up [facility] CTA and brain MRI report given and if needed it can be uploaded to the PACS Acute stroke ruled out. No intracranial mass. 2D echo reported normal EF 60% with structurally normal valves. Fasting lipid profile shows low HDL advised to follow with PCP Chronic migraine headache -History of previously diagnosed complex migraine - Treated in the emergency department for migraine - Patient does have history of chronic migraines and is currently awaiting pre-CERT for her injectable medication. -On Aimovig for Migraines at baseline. She follows her own neurologist in [place] Mild chronic anemia: No acute issues History of factor V Leiden/VTE - Continue home Eliquis Bipolar disorder - Continue citalopram - Continue as needed Haldol next-continue Lamictal - Continue Topamax Tobacco abuse - Recommend cessation - Currently smokes about three quarters of a pack daily - Nicotine patch 14 mcg available Obesity -BMI 35.5 -Recommend weight loss-complicates treatment, prognosis, outcomes DVT prophylaxis - Lovenox 40 milligram subcu daily CODE STATUS - Full code verified Patient would like to go home and follow-up with her own neurologist she has to order picker her daughter. Discharge medication reconciliation done. Discharge follow-up instructions completed. Discharge process discussed with the patient and all questions were answered to patient's satisfaction. Follow with PCP in 1 to 2 weeks Total time spent, exact 35 minutes on discharge meds reconciliation, examination, coordination of care with nurses and ancillary staff, review of imaging and blood test and discussion with the patient on follow-up instructions. . Medications at Discharge Home Medications medroxyprogesterone 150 mg/mL intramuscular syringe 150 mg IM .[id number] control 01/30/15 citalopram 40 mg tablet 40 mg PO DAILY mental health 04/04/19 haloperidol 5 mg tablet 2.5 mg PO TID PRN Anxiety 04/04/19 apixaban 5 mg tablet 5 mg PO BID blood thinner 06/03/20 acetaminophen 325 mg capsule (Tylenol) 325 mg PO ONCE PRN Pain 1-10 Or Fever 08/26/20 lidocaine 5 % topical patch (Lidoderm) 1 patch topical DAILY pain #6 ea 04/13/21 albuterol sulfate 90 mcg/actuation aerosol inhaler 2 puff inhalation Q6H PRN CONGESTION/ALLERGIES 03/15/23 cetirizine 10 mg tablet 10 mg PO .DAILY AM allergies 03/15/23 famotidine 40 mg tablet 40 mg PO Q12H reflux 03/15/23 lamotrigine 200 mg tablet 200 mg PO DAILY bipolar 03/15/23 montelukast 10 mg tablet 10 mg PO QHS allergies 03/15/23 triamcinolone acetonide 55 mcg nasal spray aerosol 2 spray intranasal DAILY 03/15/23 (more content not included)... [facility] 10-23-2024 Discharge summary [facility] 10-23-2024 History and physical note Note Date/Time October 23, 2024 12:36am [facility] Medical Records Department [address] [place] [address] H&P Exam - Hospitalist 10/22/24 2150 MR#: [id number] Acct: [id number] Name: CODY SANTANA Rep #:[id number] : 1985 38 From: Farhana Harden DO PCP: Care Physician,No Primary Status :ADM MRAGY Location: [place] [address] HPI - General General Date of Admission: 10/22/24 Date of Service: 10/23/24 Chief Complaint: Left leg weakness/expressive aphasia/slurred speech/right arm paresthesias HPI Narrative CODY SANTANA, is a 38 F who presented to the emergency department [facility] on 10/23/2023 with a chief complaint of left leg weakness, expressive aphasia, slurred speech, and right arm paresthesias. She has a history of factor V Leiden and takes Eliquis chronically. She was admitted herein August 2023 at which time she had workup for TIA. She was evaluated by neurology and at that time they thought she was suffering from complex migraines. Her symptoms at this time are again associated with. She states herheadache started prior to symptoms. Her symptoms started about an hour prior topresentation. She was on the phone with her daughter. She has had ongoing headaches on and off that are migrainous in nature for the last 2 weeks and is waiting for pre-CERT on her chronic migraine medication. Initial NIH was 3. She was scored a 3 for slight left lid droop, slight left leg drift and slight paresthesias in the right arm. She was evaluated by [facility] neurology and they agreed no TNK due to the Eliquis however recommended treatment of her headache and admission to the hospital for MRI. Vital signs on presentation showed temperature of 98.2, heart rate 74, respiratory rate was 14, blood pressure 133/82 and pulse ox was 99% on room air. CBC showed a mild anemia with hemoglobin 11.9 but was otherwise unremarkable. Coags were normal. Chemistry panel was unremarkable. Troponin was 7 with a delta of less than 6. EKG was sinus rhythm with normal intervals and no ST-T wave changes concerning for acute ischemia. CT of the brain was unremarkable. CTA of the head and neck was unremarkable. With neuro's recommendation will be admitted for completion of stroke workup. Anticipate length of stay to be less than 48 hours. [facility] Medical History Lumbar pain with radiation down right leg Dental caries Brain TIA Dysarthria Chronic migraine Anxiety and depression History of venous thromboembolism Obesity Tobacco use History of nephrolithiasis Chronic neck and back pain Factor 5 Leiden mutation, heterozygous Home Medications ?Medication ?Instructions ?Recorded ?Last Taken ?Type medroxyprogesterone 150 mg/mL 150 mg IM .[id number] verenice h control 01/30/15 08/24/24 11:00 History intramuscular syringe 150 mg citalopram 40 mg tablet 40 mg PO DAILY mental health 04/04/19 10/22/24 10:00 History 40 mg haloperidol 5 mg tablet 2.5 mg PO TID PRN Anxiety Unknown History apixaban 5 mg tablet 5 mg PO BID blood thinner 10/22/24 12:30 History 5 mg acetaminophen 325 mg capsule 325 mg PO ONCE PRN Pain 1 -10 Or 08/26/20 Unknown History (Tylenol) Fever lidocaine 5 % topical patch 1 patch topical DAILY pain #6 ea 04/13/21 09/20/24 11:00 Rx (Lidoderm) 1 patch albuterol sulfate 90 mcg/actuation 2 puff inhalation Q 6H PRN 03/15/23 Unknown History aerosol inhaler CONGESTION/ALLERGIES cetirizine 10 mg tablet 10 mg PO .DAILY AM allergies 03/15/23 10/22/24 10:00 History 10 mg famotidine 40 mg tablet 40 mg PO Q12H reflux 3 10/21/24 23:00 History 40 mg lamotrigine 200 mg tablet 200 mg PO DAILY bipolar 10/0210/22/24 11:00 History 200 mg montelukast 10 mg tablet 10 mg PO QHS allergies 03/1510/21/24 22:00 History 10 mg triamcinolone acetonide 55 mcg 2 spray intranasal IDALIA Y 03/15/23 10/18/24 11:00 History nasal spray aerosol 2 spray rimegepant 75 mg disintegrating 75 mg PO DAILY PRN MICHELLE RUMA 08/30/23 10/21/24 20:00 History tablet (Nurtec ODT) 75 mg erenumab-aooe 70 mg/mL 70 mg subcut .monthly 09/17/24 10:00 History subcutaneous auto-injector 70 mg (Aimovig Autoinjector) methocarbamol 500 mg tablet 250 - 500 mg PO Q8H PRN mu scle 08/17/24 10/01/24 11:00 History spasm 500 mg cholecalciferol (vitamin D3) 25 50 mcg PO DAILY 10/22/24 10:00 History mcg (1,000 unit) capsule 50 mcg citalopram 40 mg tablet (Celexa) 40 mg PO DAILY Unknown History topiramate 200 mg tablet 200 mg PO BID 10/22/2410/22 11:00 History 200 mg Allergy/AdvReac Type Severity Reaction Status Date / Time acetaminophen (From [place]) Allergy Itching Verified 10/22/24 20:55 hydrocodone (From [place]) Allergy Itching Verified 10/22/24 20:55 oxycodone (From Percocet) AdvReac Intermediate Itching Verified 10/22/24 20:55 cephalexin monohydrate (From AdvReac WEAKNESS, Verified 10/22/24 20:55 Keflex) MUSCLE ACHES Family History Mother Heart disease CVA (cerebral vascular accident) Diabetes Father No problems noted. Surgical History S/P cervical spinal fusion History of toe surgery History of carpal tunnel release Social History household members: other details: Lives in her home with her 3 children, youngest 9. Smoking Status: Current every day smoker tobacco type: cigarettes, e-cigarettesand smokeless tobacco alcohol intake: never substance use type: does not use ROS Constitutional Constitutional: Denies anorexia, change in weight, chills, fatigue, fever(s), malaise, night sweats, weakness or other Eyes Eyes: Denies blurry vision, change in eye color, change in vision, discharge from eye(s), double vision, erythema, eye pain, loss of vision or other ENT HEENT: Denies abnormal hearing, dysphagia, ear pain, epistaxis, headache(s), hearing loss, nasal congestion, nasal discharge, post nasal drip, sinus pressure, sore throat or other Cardiovascular Cardiovascular: Denies chest pain, claudication, dyspnea on exertion, edema, lightheadedness, orthopnea, palpitations, paroxysmal nocturnal dyspnea, rapid heart rate, syncope or other Respiratory/Chest Respiratory/Chest: Denies cough, dyspnea, excessive phlegm production, hemoptysis, productive cough, shortness of breath at rest, shortness of breath with exertion, wheezing or other Gastrointestinal Gastrointestinal: Denies abdominal pain, coffee ground emesis, constipation, diarrhea, dyspepsia, hematemesis, hematochezia, loose stools, melena, nausea, vomiting or other Genitourinary Genitourinary: Denies burning urination, difficulty urinating, dysuria, hematuria, nocturia, urinary frequency, urinary hesitancy, urinary incontinence,urinary urgency or other Musculoskeletal Musculoskeletal: Reports back pain and neck pain; Denies arthralgias, joint pain, joint stiffness, joint swelling, myalgias or other Neurologic Neurologic: Reports focal weakness, headache(s) and paresthesias; Denies abnormal gait, abnormal speech, confusion, disequilibrium, dizziness, numbness, seizure-like activity, seizures, syncope, tingling, tremor(s) or other Psychiatric Psychiatric: Reports anxiety and depression; Denies homicidal ideation, suicidalideation or other Endocrine Endocrinology: Denies change in body appearance, cold intolerance, excessive sweating, heat intolerance, polydipsia, polyuria or other Hematologic/Lymphatic Hematologic/Lymphatic: Denies anemia, easy bleeding, easy bruising, lymphadenopathy or other Allergic/Immunologic Allergic/Immunologic: Denies rhinitis, hives, eczemia, asthma or other Vital Signs Vital Signs Vital Signs: 10/22/24 20:55 10/22/24 21:02 10/22/24 21:15 Temperature 98.2 F Temperature Source Oral Pulse Rate 74 Respiratory Rate 14 Respiratory Pattern Normal Blood Pressure 133/82 H Blood Pressure Mean 99 Pulse Ox 99 Oxygen Delivery Method Room Air Room Air 10/22/24 21:30 Temperature Temperature Source Pulse Rate 66 Respiratory Rate 15 Respiratory Pattern Blood Pressure 124/87 H Blood Pressure Mean 99 Pulse Ox 100 Oxygen Delivery Method Room Air Weight Weight: 92.9 kg Body Mass Index (BMI) 37.4 Physical Exam Const alert, oriented x3, no apparent distress and well nourished; Negative for average body habitus Constitutional Narrative: Obese, middle-aged, white female, lying in bed, multiple family members at bedside, patient appears comfortable and nontoxic General Appearance: cooperative HEENT normocephalic, head/scalp atraumatic, hearing grossly normal bilaterally and moist oral mucous membranes HEENT Narrative: Mallampati 3, no thrush Eyes conjunctivae normal Eyes Narrative: No scleral icterus Neck supple and no carotid bruits Neck Narrative: Trachea midline Resp normal respiratory effort, no retractions, no use of accessory muscles and clearto auscultation bilaterally Auscultation: Negative for rales, rhonchi or wheezes Cardio regular rate, regular rhythm, S1 normal heart sound, S2 normal heart sound, no murmurs, no rub, no gallops and no clicks GI normal to inspection, nondistended, normoactive bowel sounds, soft to palpation and non-tender Extremity no clubbing, cyanosis or edema Extremity Narrative: Pedal and radial pulses are 2+ Neuro oriented x3, CN's II-XII intact bilaterally, moves all extremities and no focal motor deficits Speech: speech normal Psych Psych Narrative: Affect is slightly flat, eye contact is good patient answers questions appropriately Results Lab / Micro Data 10/22/24 20:48 10/22/24 20:48 Labs: Laboratory Results - last 24 hr 10/22/24 20:48: WBC 6.4, RBC 3.77 L, Hgb 11.9 L, Hct 34.9 L, MCV 92.6, MCH 31.6,MCHC 34.1, RDW Std Deviation 48.1 H, RDW Coeff of Sharmin 14.1, Plt Count 188, MPV 10.5, Immature Gran % (Auto) 0.200, Neut % (Auto) 44.7 L, Lymph % (Auto) 43.7 H,Gladwin % (Auto) 8.6, Eos % (Auto) 2.2, Baso % (Auto) 0.6, Absolute Neuts (auto) 2.9, Absolute Lymphs (auto) 2.80, Nucleated RBC % 0, PT 14.3, INR 1.1, APTT 30.8 Imaging Radiology Impression Brain CT 10/22/24 21:10 IMPRESSION: No acute intracranial abnormality. Reading [facility] Assessment & Plan Assessment/Plan (1) Left leg weakness: (2) Expressive aphasia: (3) Headache: (4) Anemia: PLAN: Plan Left leg weakness/expressive aphasia/right arm paresthesias - Highly suspect this is complex migraine as she has previously been diagnosed - Has not had her injectable migraine treatment as she is awaiting pre-CERT - Did have headache on presentation that was treated - Per neurology's recommendation will be admitted for stroke workup - Check MRI with and without contrast due to symptoms not being consistent with focal neurological deficit that could be explained by 1 lesion to rule out otherpossible etiologies - Check echocardiogram - Aspirin 81 mg daily - Atorvastatin 80 mg daily -NIH per stroke order set - Neurology consultation Migraine headache -History of previously diagnosed complex migraine - Treated in the emergency department for migraine - Patient does have history of chronic migraines and is currently awaiting pre-CERT for her injectable medication - Neurology consultation is pending -On Aimovig for Migraines at baseline Mild anemia - No further workup at this time Asthma/seasonal allergies - Continue home inhalers - As needed albuterol - Continue Singulair -Continue cetirizine - Continue nasal spray History of factor V Leiden/VTE - Continue home Eliquis Bipolar disorder - Continue citalopram - Continue as needed Haldol next-continue Lamictal - Continue Topamax Tobacco abuse - Recommend cessation - Currently smokes about three quarters of a pack daily - Nicotine patch 14 mcg available Obesity -BMI 35.5 -Recommend weight loss-complicates treatment, prognosis, outcomes DVT prophylaxis - Lovenox 40 subcu daily CODE STATUS - Full code verified Charges/Coding Visit Charges Inpatient E&M: 76016 Init Hosp L2 10/23/24 0036 <Electronically signed by Farhana Harden DO> Cosigner Signature (if applicable): CC: Dr. Farhana Harden DO; No Primary Care Physician~ Signed [facility] Work Phone: [phone] 413-490005-14-2025 Discharge summary Author Jeremy Gerard [facility] Note Date/Time October 22, 2024 11:51 pm [facility] Medical Records Department [address] [place] [address] Emergency Department Summary 10/22/24 MR#: [id number] Acct: [id number] Name: CODY SANTANA Rep #:[id number] : 1985 38 From: Jeremy Larose PCP: Care Physician,No Primary Status :ADM MARGY Location: [place] [address] HPI History of Present Illness Chief Complaint: General Illness Informant: patient and EMS Narrative Narrative: Presents with difficulty getting words out while at work. This was a little over an hour ago. She states on the phone with her daughter. She is dealing with migraine for 2 weeks now. No head injuries. Denies any weakness or hemiparesis. She states similar symptoms when she had a TIA stating either thisapril the year before that. She is on Eliquis for factor V Leiden with blood clots in the past her last dose was at noon for which she takes at noon and at midnight after work. Prior similar symptoms: Yes PFSH PFSH Medical History Lumbar pain with radiation down right leg Dental caries Brain TIA Dysarthria Chronic migraine Anxiety and depression History of venous thromboembolism Obesity Tobacco use History of nephrolithiasis Chronic neck and back pain Factor 5 Leiden mutation, heterozygous Home Medications ?Medication ?Instructions ?Recorded ?Last Taken ?Type medroxyprogesterone 150 mg/mL 150 mg IM .[id number] verenice h control 01/30/15 08/24/24 11:00 History intramuscular syringe 150 mg citalopram 40 mg tablet 40 mg PO DAILY mental health 04/04/19 10/22/24 10:00 History 40 mg haloperidol 5 mg tablet 2.5 mg PO TID PRN Anxiety Unknown History apixaban 5 mg tablet 5 mg PO BID blood thinner 10/22/24 12:30 History 5 mg acetaminophen 325 mg capsule 325 mg PO ONCE PRN Pain 1 -10 Or 08/26/20 Unknown History (Tylenol) Fever lidocaine 5 % topical patch 1 patch topical DAILY pain #6 ea 04/13/21 09/20/24 11:00 Rx (Lidoderm) 1 patch albuterol sulfate 90 mcg/actuation 2 puff inhalation Q 6H PRN 03/15/23 Unknown History aerosol inhaler CONGESTION/ALLERGIES cetirizine 10 mg tablet 10 mg PO .DAILY AM allergies 03/15/23 10/22/24 10:00 History 10 mg famotidine 40 mg tablet 40 mg PO Q12H reflux 3 10/21/24 23:00 History 40 mg lamotrigine 200 mg tablet 200 mg PO DAILY bipolar 1010/0210/22/24 11:00 History 200 mg montelukast 10 mg tablet 10 mg PO QHS allergies 03/1510/21/24 22:00 History 10 mg triamcinolone acetonide 55 mcg 2 spray intranasal IDALIA Y 03/15/23 10/18/24 11:00 History nasal spray aerosol 2 spray rimegepant 75 mg disintegrating 75 mg PO DAILY PRN MICHELLE RUMA 08/30/23 10/21/24 20:00 History tablet (Nurtec ODT) 75 mg erenumab-aooe 70 mg/mL 70 mg subcut .monthly 09/17/24 10:00 History subcutaneous auto-injector 70 mg (Aimovig Autoinjector) methocarbamol 500 mg tablet 250 - 500 mg PO Q8H PRN mu scle 08/17/24 10/01/24 11:00 History spasm 500 mg cholecalciferol (vitamin D3) 25 50 mcg PO DAILY 10/22/24 10:00 History mcg (1,000 unit) capsule 50 mcg citalopram 40 mg tablet (Celexa) 40 mg PO DAILY Unknown History topiramate 200 mg tablet 200 mg PO BID 10/22/2410/22 11:00 History 200 mg Allergy/AdvReac Type Severity Reaction Status Date / Time acetaminophen (From [place]) Allergy Itching Verified 10/22/24 20:55 hydrocodone (From [place]) Allergy Itching Verified 10/22/24 20:55 oxycodone (From Percocet) AdvReac Intermediate Itching Verified 10/22/24 20:55 cephalexin monohydrate (From AdvReac WEAKNESS, Verified 10/22/24 20:55 Keflex) MUSCLE ACHES Family History Mother Heart disease CVA (cerebral vascular accident) Diabetes Father No problems noted. Surgical History S/P cervical spinal fusion History of toe surgery History of carpal tunnel release Social History household members: other details: Lives in her home with her 3 children, youngest 9. Smoking Status: Current every day smoker tobacco type: cigarettes, e- cigarettesand smokeless tobacco alcohol intake: never substance use type: does not use ROS ROS ED Constitutional Constitutional ED: Denies chills, fever(s) or sweats ENT ENT ED: Denies sore throat Cardiovascular Cardiovascular: Denies chest pain, leg edema, palpitations or racing heartbeat Respiratory/Chest Respiratory/Chest: Denies cough, dyspnea or dyspnea on exertion Gastrointestinal Gastrointestinal: Denies abdominal pain, diarrhea, nausea or vomiting Genitourinary Genitourinary ED: Denies dysuria, hematuria or urinary frequency Musculoskeletal Musculoskeletal: Denies back pain, extremity pain or neck pain Integumentary Denies rash or wounds Neurologic Neurologic: Reports headache(s) and other Details: Expressive aphasia ; Denies paresthesias or weakness EXAM Physical Exam Const Vital Signs: 10/22/24 20:55 10/22/24 21:02 10/22/24 21:15 Temperature 98.2 F Temperature Source Oral Pulse Rate 74 Respiratory Rate 14 Respiratory Pattern Normal Blood Pressure 133/82 H Blood Pressure Mean 99 Pulse Ox 99 Oxygen Delivery Method Room Air Room Air 05/13/25 21:30 Temperature Temperature Source Pulse Rate 66 Respiratory Rate 15 Respiratory Pattern Blood Pressure 124/87 H Blood Pressure Mean 99 Pulse Ox 100 Oxygen Delivery Method Room Air Positive well nourished and well developed General Appearance ED: well developed and NAD HEENT Reports moist mucous membranes HEENT Narrative: Mild left lip droop normocephalic and atraumatic Eyes General Eye ED: Yes normal appearance of both eyes Neck full ROM Chest Wall Chest: Negative for tenderness Resp normal respiratory effort and normal air movement Effort and Inspection: symmetric chest movement; Negative for respiratory distress Cardio regular rate, regular rhythm and no murmurs Peripheral Pulses: pulses 2+ throughout GI normal to inspection, nondistended, normoactive bowel sounds and non-tender Palpation: Negative for guarding or rebound tenderness present Extremity normal to inspection General Extremety ED: Negative for edema or tenderness General Extremity: Negative for edema Neuro oriented x3 Sensorium / Orientation: awake and alert Skin no rashes or lesions noted and no wounds NIHSS NIHSS Initial: 1a Level of Consciousness: 0 1b LOC Questions (Score 2 if aphasic/stupor): 0 1c LOC Commands (Only score 1st attempt): 0 2 Best Gaze (If aphasic, use reflexive mvmts.): 0 3 Visual: 0 4 Facial Palsy: 1 5 Motor Arm Right (UN = amputation/fusion): 0 5 Motor Arm Left: 0 6 Motor Leg Right: 0 6 Motor Leg Left: 1 7 Limb ataxia (Only + if out of proportion): 0 8 Sensory (Aphasia/stupor=0 or 1, coma=2): 1 9 Best Language: 0 10 Dysarthria (mute, coma=2, intubated=UN): 0 11 Extinction and Inattention (only scored if +): 0 Total Score: 3 MDM MDM MDM Narrative Medical decision making narrative: Interventions / MDM: Differential diagnosis: Migraine headache, complex migraine, TIA, CVA Diagnosis considered but do not suspect: Intracranial hemorrhage however CT negative. Patient and family My EKG interpretation: Sinus rate of 64, no ST changes. States T waves were leads III. Nonspecific. Imaging independently reviewed and interpreted by myself: CT brain: No acute process also read by radiology. CT angiogram head and neck interpreted by teleneurologist no acute process. External documents reviewed: N/A Test considered but not ordered:N/A ED course: Patient has an NIH of 3 due to slight left lid droop, slight left legdrift and slight paresthesias right arm compared to the left. Symptoms started little over an hour ago. Stroke protocol initiated. She is on Eliquis therefore not a TNK candidate. 2154: Recheck NIH still had 3 with mild symptoms. Neurologist evaluated agrees no TNK, recommended headache treatment and admission for MRI. She states she has been treated with Reglan and Benadryl in the past for migraine symptoms. I discussed with hospitalist Dr. Kristina Harden for admission to PCU. Re-evaluation: stable Disposition discussed with patient/family/significant other: Case discussed with consulting clinician: Telestroke, hospitalist This note was generated with DrawQuestation software. It may contain incorrectwords, spelling, and punctuation that were not noted in checking the note beforesigning. Lab Data Attestation: I reviewed the patient's lab results. Labs: Laboratory Results - last 24 hr 10/22/24 10/22/24 20:48 21:40 WBC 6.4 RBC 3.77 L Hgb 11.9 L Hct 34.9 L MCV 92.6 MCH 31.6 MCHC 34.1 RDW Std Deviation 48.1 H RDW Coeff of Sharmin 14.1 Plt Count 188 MPV 10.5 Immature Gran % (Auto) 0.200 Neut % (Auto) 44.7 L Lymph % (Auto) 43.7 H Gladwin % (Auto) 8.6 Eos % (Auto) 2.2 Baso % (Auto) 0.6 Absolute Neuts (auto) 2.9 Absolute Lymphs (auto) 2.80 Nucleated RBC % 0 Differential Comment SCANNED Atypical Lymphocytes 2+ PT 14.3 INR 1.1 APTT 30.8 Sodium 139 Potassium 3.4 Chloride 110 H Carbon Dioxide 18.2 L Anion Gap 11 BUN 12 Creatinine 0.97 Estim Creat Clear Calc 84.27 Est GFR (MDRD) Non-Af 78 BUN/Creatinine Ratio 12.1 Glucose 79 Hemoglobin A1c 5.1 Calcium 9.3 Troponin T High Sens 7 POC Glucose 88 Radiography Diagnostic Testing: Clinical Impression(s) from Imaging Studies Brain CT 10/22/24 21:10 IMPRESSION: No acute intracranial abnormality. Reading Location: [facility] Head/Neck CTA 10/22/24 21:18 IMPRESSION: Patent anterior and posterior intracranial and extracranial circulation, withouthemodynamically significant stenosis. Reading Location: [facility] Critical Care Time Critical Care Time: Yes Critical care time (excluding procedures): 30-74 minutes, Discussing w/Patient &/or Family/Train Brake Operator, Discussing w/Consultants, Arranging Admission or Transfer, Performing Direct Patient Care at Bedside and - (31 minutes) Discharge Plan Dx/Rx/DC Orders Clinical Impression: Expressive aphasia, Headache, Paresthesia Disposition Disposition: Acute Care Hospital [facility] Discharge Date/Time: 10/22/24 22:23 What to do if you have Problems For any increased pain, shortness of breath, bleeding, nausea or vomiting, chestpain, or any unexpected problems, contact your Primary Care Provider. Call [facility] ([phone]) or report to the closest Emergency Room. Call 911 if necessary. 10/22/24 2351 <Electronically signed by Jeremy Larose> Cosigner Signature (if applicable): CC: No Primary Care Physician ~ Signed [facility] Work Phone: [phone] History and physical note [facility] Medical Records Department [address] [place] [id number] H&P Exam - Hospitalist 10/22/24 2150 MR#: [id number] Acct: [id number] Name: CODY SANTANA Rep #:[id number] : 1985 38 From: Farhana Harden DO PCP: Care Physician,No Primary Status :ADM MARGY Location: [place] [address] HPI - General General Date of Admission: 10/22/24 Date of Service: 10/23/24 Chief Complaint: Left leg weakness/expressive aphasia/slurred speech/right arm paresthesias HPI Narrative CODY SANTANA, is a 38 F who presented to the emergency department [facility] on 10/23/2023 with a chief complaint of left leg weakness, expressive aphasia, slurred speech, and right arm paresthesias. She has a history of factor V Leiden and takes Eliquis chronically. She was admitted herein August 2023 at which time she had workup for TIA. She was evaluated by neurology and at that time they thought she was suffering from complex migraines. Her symptoms at this time are again associated with. She states herheadache started prior to symptoms. Her symptoms started about an hour prior topresentation. She was on the phone with her daughter. She has had ongoing headaches on and off that are migrainous in nature for the last 2 weeks and is waiting for pre-CERT on her chronic migraine medication. Initial NIH was 3. She was scored a 3 for slight left lid droop, slight left leg drift and slight paresthesias in the right arm. She was evaluated by [facility] neurology and they agreed noTNK due to the Eliquis however recommended treatment of her headache and admission to the hospital for MRI. Vital signs on presentation showed temperature of 98.2, heart rate 74, respiratory rate was 14, blood pressure 133/82 and pulse ox was 99% on room air. CBC showed a mild anemia with hemoglobin 11.9 but was otherwise unremarkable. Coags were normal. Chemistry panel was unremarkable. Troponin was 7 with a delta of less than 6. EKG was sinus rhythm with normal intervals and no ST-T wave changes concerning for acute ischemia. CT of the brain was unremarkable. CTA of the head and neck was unremarkable. With neuro's recommendation will be admitted for completion of stroke workup. Anticipate length of stay to be less than 48 hours. [facility] Medical History Lumbar pain with radiation down right leg Dental caries Brain TIA Dysarthria Chronic migraine Anxiety and depression History of venous thromboembolism Obesity Tobacco use History of nephrolithiasis Chronic neck and back pain Factor 5 Leiden mutation, heterozygous Home Medications ?Medication ?Instructions ?Recorded ?Last Taken ?Type medroxyprogesterone 150 mg/mL 150 mg IM .[id number] verenice h control 01/30/15 08/24/24 11:00 History intramuscular syringe 150 mg citalopram 40 mg tablet 40 mg PO DAILY mental health 04/04/19 10/22/24 10:00 History 40 mg haloperidol 5 mg tablet 2.5 mg PO TID PRN Anxiety Unknown History apixaban 5 mg tablet 5 mg PO BID blood thinner 10/22/24 12:30 History 5 mg acetaminophen 325 mg capsule 325 mg PO ONCE PRN Pain 1 -10 Or 08/26/20 Unknown History (Tylenol) Fever lidocaine 5 % topical patch 1 patch topical DAILY pain #6 ea 04/13/21 09/20/24 11:00 Rx (Lidoderm) 1 patch albuterol sulfate 90 mcg/actuation 2 puff inhalation Q 6H PRN 03/15/23 Unknown History aerosol inhaler CONGESTION/ALLERGIES cetirizine 10 mg tablet 10 mg PO .DAILY AM allergies 03/15/23 10/22/24 10:00 History 10 mg famotidine 40 mg tablet 40 mg PO Q12H reflux 3 10/21/24 23:00 History 40 mg lamotrigine 200 mg tablet 200 mg PO DAILY bipolar 10/0210/22/24 11:00 History 200 mg montelukast 10 mg tablet 10 mg PO QHS allergies 03/1510/21/24 22:00 History 10 mg triamcinolone acetonide 55 mcg 2 spray intranasal IDALIA Y 03/15/23 10/18/24 11:00 History nasal spray aerosol 2 spray rimegepant 75 mg disintegrating 75 mg PO DAILY PRN MICHELLE RUMA 08/30/23 10/21/24 20:00 History tablet (Nurtec ODT) 75 mg erenumab-aooe 70 mg/mL 70 mg subcut .monthly 09/17/24 10:00 History subcutaneous auto-injector 70 mg (Aimovig Autoinjector) methocarbamol 500 mg tablet 250 - 500 mg PO Q8H PRN mu scle 08/17/24 10/01/24 11:00 History spasm 500 mg cholecalciferol (vitamin D3) 25 50 mcg PO DAILY 10/22/24 10:00 History mcg (1,000 unit) capsule 50 mcg citalopram 40 mg tablet (Celexa) 40 mg PO DAILY Unknown History topiramate 200 mg tablet 200 mg PO BID 10/22/2410/22 11:00 History 200 mg Allergy/AdvReac Type Severity Reaction Status Date / Time acetaminophen (From [place]) Allergy Itching Verified 10/22/24 20:55 hydrocodone (From [place]) Allergy Itching Verified 10/22/24 20:55 oxycodone (From Percocet) AdvReac Intermediate Itching Verified 10/22/24 20:55 cephalexin monohydrate (From AdvReac WEAKNESS, Verified 10/22/24 20:55 Keflex) MUSCLE ACHES Family History Mother Heart disease CVA (cerebral vascular accident) Diabetes Father No problems noted. Surgical History S/P cervical spinal fusion History of toe surgery History of carpal tunnel release Social History household members: other details: Lives in her home with her 3 children, youngest 9. Smoking Status: Current every day smoker tobacco type: cigarettes, e- cigarettesand smokeless tobacco alcohol intake: never substance use type: does not use ROS Constitutional Constitutional: Denies anorexia, change in weight, chills, fatigue, fever(s), malaise, night sweats, weakness or other Eyes Eyes: Denies blurry vision, change in eye color, change in vision, discharge from eye(s), double vision, erythema, eye pain, loss of vision or other ENT HEENT: Denies abnormal hearing, dysphagia, ear pain, epistaxis, headache(s), hearing loss, nasal congestion, nasal discharge, post nasal drip, sinus pressure, sore throat or other Cardiovascular Cardiovascular: Denies chest pain, claudication, dyspnea on exertion, edema, lightheadedness, orthopnea, palpitations, paroxysmal nocturnal dyspnea, rapid heart rate, syncope or other Respiratory/Chest Respiratory/Chest: Denies cough, dyspnea, excessive phlegm production, hemoptysis, productive cough, shortness of breath at rest, shortness of breath with exertion, wheezing or other Gastrointestinal Gastrointestinal: Denies abdominal pain, coffee ground emesis, constipation, diarrhea, dyspepsia, hematemesis, hematochezia, loose stools, melena, nausea, vomiting or other Genitourinary Genitourinary: Denies burning urination, difficulty urinating, dysuria, hematuria, nocturia, urinary frequency, urinary hesitancy, urinary incontinence,urinary urgency or other Musculoskeletal Musculoskeletal: Reports back pain and neck pain; Denies arthralgias, joint pain, joint stiffness, joint swelling, myalgias or other Neurologic Neurologic: Reports focal weakness, headache(s) and paresthesias; Denies abnormal gait, abnormal speech, confusion, disequilibrium, dizziness, numbness, seizure-like activity, seizures, syncope, tingling, tremor(s) or other Psychiatric Psychiatric: Reports anxiety and depression; Denies homicidal ideation, suicidalideation or other Endocrine Endocrinology: Denies change in body appearance, cold intolerance, excessive sweating, heat intolerance, polydipsia, polyuria or other Hematologic/Lymphatic Hematologic/Lymphatic: Denies anemia, easy bleeding, easy bruising, lymphadenopathy or other Allergic/Immunologic Allergic/Immunologic: Denies rhinitis, hives, eczemia, asthma or other Vital Signs Vital Signs Vital Signs: 10/22/24 20:55 10/22/24 21:02 10/22/24 21:15 Temperature 98.2 F Temperature Source Oral Pulse Rate 74 Respiratory Rate 14 Respiratory Pattern Normal Blood Pressure 133/82 H Blood Pressure Mean 99 Pulse Ox 99 Oxygen Delivery Method Room Air Room Air 10/22/24 21:30 Temperature Temperature Source Pulse Rate 66 Respiratory Rate 15 Respiratory Pattern Blood Pressure 124/87 H Blood Pressure Mean 99 Pulse Ox 100 Oxygen Delivery Method Room Air Weight Weight: 92.9 kg Body Mass Index (BMI) 37.4 Physical Exam Const alert, oriented x3, no apparent distress and well nourished; Negative for average body habitus Constitutional Narrative: Obese, middle-aged, white female, lying in bed, multiple family members at bedside, patient appearscomfortable and nontoxic General Appearance: cooperative HEENT normocephalic, head/scalp atraumatic, hearing grossly normal bilaterally and moist oral mucous membranes HEENT Narrative: Mallampati 3, no thrush Eyes conjunctivae normal Eyes Narrative: No scleral icterus Neck supple and no carotid bruits Neck Narrative: Trachea midline Resp normal respiratory effort, no retractions, no use of accessory muscles and clearto auscultation bilaterally Auscultation: Negative for rales, rhonchi or wheezes Cardio regular rate, regular rhythm, S1 normal heart sound, S2 normal heart sound, no murmurs, no rub, no gallops and no clicks GI normal to inspection, nondistended, normoactive bowel sounds, soft to palpation and non-tender Extremity no clubbing, cyanosis or edema Extremity Narrative: Pedal and radial pulses are 2+ Neuro oriented x3, CN's II-XII intact bilaterally, moves all extremities and no focal motor deficits Speech: speech normal Psych Psych Narrative: Affect is slightly flat, eye contact is good patient answers questions appropriately Results Lab / Micro Data 10/22/24 20:48 10/22/24 20:48 Labs: Laboratory Results - last 24 hr 10/22/24 20:48: WBC 6.4, RBC 3.77 L, Hgb 11.9 L, Hct 34.9 L, MCV 92.6, MCH 31.6,MCHC 34.1, RDW Std Deviation 48.1 H, RDW Coeff of Sharmin 14.1, Plt Count 188, MPV 10.5, Immature Gran % (Auto) 0.200, Neut% (Auto) 44.7 L, Lymph % (Auto) 43.7 H,Gladwin % (Auto) 8.6, Eos % (Auto) 2.2, Baso % (Auto) 0.6, Absolute Neuts (auto) 2.9, Absolute Lymphs (auto) 2.80, Nucleated RBC % 0, PT 14.3, INR 1.1, APTT 30.8 Imaging Radiology Impression Brain CT 10/22/24 21:10 IMPRESSION: No acute intracranial abnormality. Reading [facility] Assessment & Plan Assessment/Plan (1) Left leg weakness: (2) Expressive aphasia: (3) Headache: (4) Anemia: PLAN: Plan Left leg weakness/expressive aphasia/right arm paresthesias - Highly suspect this is complex migraine as she has previously been diagnosed - Has not had her injectable migraine treatment as she is awaiting pre-CERT - Did have headache on presentation that was treated - Per neurology's recommendation will be admitted for stroke workup - Check MRI with and without contrast due to symptoms not being consistent with focal neurological deficit that could be explained by 1 lesion to rule out otherpossible etiologies - Check echocardiogram - Aspirin 81 mg daily - Atorvastatin 80 mg daily -NIH per stroke order set - Neurology consultation Migraine headache -History of previously diagnosed complex migraine - Treated in the emergency department for migraine - Patient does have history of chronic migraines and is currently awaiting pre- CERT for her injectable medication - Neurology consultation is pending -On Aimovig for Migraines at baseline Mild anemia - No further workup at this time Asthma/seasonal allergies - Continue home inhalers - As needed albuterol - Continue Singulair -Continue cetirizine - Continue nasal spray History of factor V Leiden/VTE - Continue home Eliquis Bipolar disorder - Continue citalopram - Continue as needed Haldol next-continue Lamictal - Continue Topamax Tobacco abuse - Recommend cessation - Currently smokes about three quarters of a pack daily - Nicotine patch 14 mcg available Obesity -BMI 35.5 -Recommend weight loss-complicates treatment, prognosis, outcomes DVT prophylaxis - Lovenox 40 subcu daily CODE STATUS - Full code verified Charges/Coding Visit Charges Inpatient E&M: 10834 Init Hosp L2 10/23/24 0036 Cosigner Signature (if applicable): CC: Dr. Farhana Harden DO; No Primary Care Physician~ Signed [facility]05-13-2025 Discharge summary [facility] Medical Records Department [address] [place] [address] Emergency Department Summary 10/22/24 MR#: [id number] Acct: [id number] Name: CODY SANTANA Rep #:[id number] : 1985 38 From: Jeremy Larose PCP: Care Physician,No Primary Status :ADM MARGY Location: [place] [address] HPI History of Present Illness Chief Complaint: General Illness Informant: patient and EMS Narrative Narrative: Presents with difficulty getting words out while at work. This was a little over an hour ago. She states on the phone with her daughter. She is dealing with migraine for 2 weeks now. No head injuries. Denies any weakness or hemiparesis. She states similar symptoms when she had a TIA stating either thispaapril the year before that. She is on Eliquis for factor V Leiden with blood clots in the past her last dose was at noon for which she takes at noon and at midnight after work. Prior similar symptoms: Yes PFSH PFS Medical History Lumbar pain with radiation down right leg Dental caries Brain TIA Dysarthria Chronic migraine Anxiety and depression History of venous thromboembolism Obesity Tobacco use History of nephrolithiasis Chronic neck and back pain Factor 5 Leiden mutation, heterozygous Home Medications ?Medication ?Instructions ?Recorded ?Last Taken ?Type medroxyprogesterone 150 mg/mL 150 mg IM .[id number] verenice h control 01/30/15 08/24/24 11:00 History intramuscular syringe 150 mg citalopram 40 mg tablet 40 mg PO DAILY mental health 04/04/19 10/22/24 10:00 History 40 mg haloperidol 5 mg tablet 2.5 mg PO TID PRN Anxiety Unknown History apixaban 5 mg tablet 5 mg PO BID blood thinner 10/22/24 12:30 History 5 mg acetaminophen 325 mg capsule 325 mg PO ONCE PRN Pain 1 - Or 08/26/20 Unknown History (Tylenol) Fever lidocaine 5 % topical patch 1 patch topical DAILY pain #6 ea 04/13/21 09/20/24 11:00 Rx (Lidoderm) 1 patch albuterol sulfate 90 mcg/actuation 2 puff inhalation Q 6H PRN 03/15/23 Unknown History aerosol inhaler CONGESTION/ALLERGIES cetirizine 10 mg tablet 10 mg PO .DAILY AM allergies 03/15/23 10/22/24 10:00 History 10 mg famotidine 40 mg tablet 40 mg PO Q12H reflux 3 10/21/24 23:00 History 40 mg lamotrigine 200 mg tablet 200 mg PO DAILY bipolar 10/0210/22/24 11:00 History 200 mg montelukast 10 mg tablet 10 mg PO QHS allergies 03/1510/21/24 22:00 History 10 mg triamcinolone acetonide 55 mcg 2 spray intranasal IDALIA Y 03/15/23 10/18/24 11:00 History nasal spray aerosol 2 spray rimegepant 75 mg disintegrating 75 mg PO DAILY PRN MICHELLE RUMA 08/30/23 10/21/24 20:00 History tablet (Nurtec ODT) 75 mg erenumab-aooe 70 mg/mL 70 mg subcut .monthly 09/17/24 10:00 History subcutaneous auto-injector 70 mg (Aimovig Autoinjector) methocarbamol 500 mg tablet 250 - 500 mg PO Q8H PRN mu scle 08/17/24 10/01/24 11:00 History spasm 500 mg cholecalciferol (vitamin D3) 25 50 mcg PO DAILY 10/22/24 10:00 History mcg (1,000 unit) capsule 50 mcg citalopram 40 mg tablet (Celexa) 40 mg PO DAILY Unknown History topiramate 200 mg tablet 200 mg PO BID 10/22/2410/22 11:00 History 200 mg Allergy/AdvReac Type Severity Reaction Status Date / Time acetaminophen (From [place]) Allergy Itching Verified 10/22/24 20:55 hydrocodone (From [place]) Allergy Itching Verified 10/22/24 20:55 oxycodone (From Percocet) AdvReac Intermediate Itching Verified 10/22/24 20:55 cephalexin monohydrate (From AdvReac WEAKNESS, Verified 10/22/24 20:55 Keflex) MUSCLE ACHES Family History Mother Heart disease CVA (cerebral vascular accident) Diabetes Father No problems noted. Surgical History S/P cervical spinal fusion History of toe surgery History of carpal tunnel release Social History household members: other details: Lives in her home with her 3 children, youngest 9. Smoking Status: Current every day smoker tobacco type: cigarettes, e- cigarettesand smokeless tobacco alcohol intake: never substance use type: does not use ROS ROS ED Constitutional Constitutional ED: Denies chills, fever(s) or sweats ENT ENT ED: Denies sore throat Cardiovascular Cardiovascular: Denies chest pain, leg edema, palpitations or racing heartbeat Respiratory/Chest Respiratory/Chest: Denies cough, dyspnea or dyspnea on exertion Gastrointestinal Gastrointestinal: Denies abdominal pain, diarrhea, nausea or vomiting Genitourinary Genitourinary ED: Denies dysuria, hematuria or urinary frequency Musculoskeletal Musculoskeletal: Denies back pain, extremity pain or neck pain Integumentary Denies rash or wounds Neurologic Neurologic: Reports headache(s) and other Details: Expressive aphasia ; Denies paresthesias or weakness EXAM Physical Exam Const Vital Signs: 10/22/24 20:55 10/22/24 21:02 10/22/24 21:15 Temperature 98.2 F Temperature Source Oral Pulse Rate 74 Respiratory Rate 14 Respiratory Pattern Normal Blood Pressure 133/82 H Blood Pressure Mean 99 Pulse Ox 99 Oxygen Delivery Method Room Air Room Air 10/22/24 21:30 Temperature Temperature Source Pulse Rate 66 Respiratory Rate 15 Respiratory Pattern Blood Pressure 124/87 H Blood Pressure Mean 99 Pulse Ox 100 Oxygen Delivery Method Room Air Positive well nourished and well developed General Appearance ED: well developed and NAD HEENT Reports moist mucous membranes HEENT Narrative: Mild left lip droop normocephalic and atraumatic Eyes General Eye ED: Yes normal appearance of both eyes Neck full ROM Chest Wall Chest: Negative for tenderness Resp normal respiratory effort and normal air movement Effort and Inspection: symmetric chest movement; Negative for respiratory distress Cardio regular rate, regular rhythm and no murmurs Peripheral Pulses: pulses 2+ throughout GI normal to inspection, nondistended, normoactive bowel sounds and non-tender Palpation: Negative for guarding or rebound tenderness present Extremity normal to inspection General Extremety ED: Negative for edema or tenderness General Extremity: Negative for edema Neuro oriented x3 Sensorium / Orientation: awake and alert Skin no rashes or lesions noted and no wounds NIHSS NIHSS Initial: 1a Level of Consciousness: 0 1b LOC Questions (Score 2 if aphasic/stupor): 0 1c LOC Commands (Only score 1st attempt): 0 2 Best Gaze (If aphasic, use reflexive mvmts.): 0 3 Visual: 0 4 Facial Palsy: 1 5 Motor Arm Right (UN = amputation/fusion): 0 5 Motor Arm Left: 0 6 Motor Leg Right: 0 6 Motor Leg Left: 1 7 Limb ataxia (Only + if out of proportion): 0 8 Sensory (Aphasia/stupor=0 or 1, coma=2): 1 9 Best Language: 0 10 Dysarthria (mute, coma=2, intubated=UN): 0 11 Extinction and Inattention (only scored if +): 0 Total Score: 3 MDM MDM MDM Narrative Medical decision making narrative: Interventions / MDM: Differential diagnosis: Migraine headache, complex migraine, TIA, CVA Diagnosis considered but do not suspect: Intracranial hemorrhage however CT negative. Patient and family My EKG interpretation: Sinus rate of 64, no ST changes. States T waves were leads III. Nonspecific. Imaging independently reviewed and interpreted by myself: CT brain: No acute process also read by radiology. CT angiogram head and neck interpreted by teleneurologist no acute process. External documents reviewed: N/A Test considered but not ordered:N/A ED course: Patient has an NIH of 3 due to slight left lid droop, slight left legdrift and slight paresthesias right arm compared to the left. Symptoms started little over an hour ago. Stroke protocolinitiated. She is on Eliquis therefore not a TNK candidate. 2154: Recheck NIH still had 3 with mild symptoms. Neurologist evaluated agrees no TNK, recommended headache treatment and admission for MRI. She states she has been treated with Reglan and Benadryl in the past for migraine symptoms. I discussed with hospitalist Dr. Kristina Harden for admission to PCU. Re-evaluation: stable Disposition discussed with patient/family/significant other: Case discussed with consulting clinician: Telestroke, hospitalist This note was generated with [employer] dictation software. It may contain incorrectwords, spelling, and punctuation that were not noted in checking the note beforesigning. Lab Data Attestation: I reviewed the patient's lab results. Labs: Laboratory Results - last 24 hr 10/22/24 10/22/24 20:48 21:40 WBC 6.4 RBC 3.77 L Hgb 11.9 L Hct 34.9 L MCV 92.6 MCH 31.6 MCHC 34.1 RDW Std Deviation 48.1 H RDW Coeff of Sharmin 14.1 Plt Count 188 MPV 10.5 Immature Gran % (Auto) 0.200 Neut % (Auto) 44.7 L Lymph % (Auto) 43.7 H Gladwin % (Auto) 8.6 Eos % (Auto) 2.2 Baso % (Auto) 0.6 Absolute Neuts (auto) 2.9 Absolute Lymphs (auto) 2.80 Nucleated RBC % 0 Differential Comment SCANNED Atypical Lymphocytes 2+ PT 14.3 INR 1.1 APTT 30.8 Sodium 139 Potassium 3.4 Chloride 110 H Carbon Dioxide 18.2 L Anion Gap 11 BUN 12 Creatinine 0.97 Estim Creat Clear Calc 84.27 Est GFR (MDRD) Non-Af 78 BUN/Creatinine Ratio 12.1 Glucose 79 Hemoglobin A1c 5.1 Calcium 9.3 Troponin T High Sens 7 POC Glucose 88 Radiography Diagnostic Testing: Clinical Impression(s) from Imaging Studies Brain CT 10/22/24 21:10 IMPRESSION: No acute intracranial abnormality. Reading Location: [facility] Head/Neck CTA 10/22/24 21:18 IMPRESSION: Patent anterior and posterior intracranial and extracranial circulation, withouthemodynamically significant stenosis. Reading Location: [facility] Critical Care Time Critical Care Time: Yes Critical care time (excluding procedures): 30-74 minutes, Discussing w/Patient &/or Family/CareGiver, Discussing w/Consultants, Arranging Admission or Transfer, Performing Direct Patient Care atBedside and - (31 minutes) Discharge Plan Dx/Rx/DC Orders Clinical Impression: Expressive aphasia, Headache, Paresthesia Disposition Disposition: Acute Care Hospital [facility] Discharge Date/Time: 10/22/24 22:23 What to do if you have Problems For any increased pain, shortness of breath, bleeding, nausea or vomiting, chestpain, or any unexpected problems, contact your Primary Care Provider. Call [facility] ([phone]) or report tothe closest Emergency Room. Call 911 if necessary. 10/22/24 5161 Cosigner Signature (if applicable): CC: No Primary Care Physician ~ Signed [facility]05-13-2025 Radiology Diagnostic study note [facility] Imaging Services [address] [place], [place] [address] STROKE CTA Head AND Neck W/Con MR#: [id number] Acct: [id number] Name: CODY SANTANA Rep #: [id number] : 1985 F 38 From: Aracely Gerber MD PCP: Care Physician,No Primary Status: REG ER Study:STROKE CTA Head AND Neck W/Con Date of Exam: 10/22/24 Exam# [id number] Ordering Dr: Jeremy Gerard DO PROCEDURE: STROKE CTA HEAD AND NECK W/CON 10/22/2024 REASON FOR EXAM: NEURO DEFICIT, ACUTE, STROKE SUSPECTED TECHNIQUE: CTA imaging of the head and neck from the aortic arch to the skull vertex with out contrast and with intravenous contrast. Multiplanar and multisequence images were obtained. CONTRAST: Omnipaque 350 VOLUME: 100 mL Not Provided Gauge IV One or more dose reduction techniques were used (e.g., Automated exposure control, adjustment of the mA and/or kV according to patient size, use of iterative reconstruction technique). COMPARISON: None FINDINGS: Aortic Arch: Normal size and branching pattern. No significant atherosclerotic plaque. Brachiocephalic and Subclavians: Unremarkable RIGHT Carotid: Right CCA: Unremarkable. Right ICA: Unremarkable. Maximum stenosis (NASCET): 0 % Right ECA: Unremarkable. LEFT Carotid: Left CCA: Unremarkable. Left ICA: Unremarkable. Maximum stenosis (NASCET): 0 % Left ECA: Unremarkable. Vertebrals: Codominant. Arise from the subclavians. Both vertebrals form the basilar. RIGHT Vertebral: Unremarkable. LEFT Vertebral: Unremarkable. Anatomy: [place] anatomy is normal. Aneurysm or avm: No intracranial aneurysms or large vascular malformations are identified. Anterior cerebral arteries: Unremarkable: Middle cerebral arteries: Unremarkable. Basilar artery: Unremarkable. Posterior cerebral arteries: Unremarkable. Other major branches of the posterior circulation: Unremarkable. Major venous structures: Unremarkable. Other findings: Neck: No focal soft tissue abnormality. Lungs: Imaged lung bermudez are clear. Bones:Status post C5-C7 ACDF. CT/STROKE CTA Head AND Neck W/Con IMPRESSION: Patent anterior and posterior intracranial and extracranial circulation, withouthemodynamically significant stenosis. Reading Location: [facility] CC: Dr. Jeremy Gerard, DO; No Primary Care Physician ~ Wood Preparation Supervisor: Signed [facility]05-13-2025 Radiology Diagnostic study note [facility] Imaging Services [address] [place] [address] STROKE Brain/Head without Cont MR#: [id number] Acct: [id number] Name: CODY SANTANA Rep #: [id number] : 1985 F 38 From: Aracely Gerber MD PCP: Care Physician,No Primary Status: REG ER Study:STROKE Brain/Head without Cont Date of Exam: 10/22/24 Exam# [id number] Ordering Dr: Jeremy Gerard DO PROCEDURE: STROKE BRAIN/HEAD WITHOUT CONT 10/22/2024 REASON FOR EXAM: NEURO DEFICIT, ACUTE, STROKE SUSPECTED TECHNIQUE: Head CT without intravenous contrast. Coronal and Sagittal reconstruction serieswere provided. One or more dose reduction techniques were used (e.g., Automated exposure control, adjustment of the mA and/or kV according to patient size, use of iterative reconstruction technique. COMPARISON: MRI brain 08/30/2023 FINDINGS: * ACUTE: No acute infarct or hemorrhage. No mass effect or herniation. * BRAIN PARENCHYMA: Signal intensities are within normal limits for age. * VENTRICLES/EXTRA-AXIAL SPACES: No hydrocephalus or extra-axial fluid collections. * EXTRACRANIAL STRUCTURES: Visualized osseous structures are normal. Soft tissues are normal. CT/STROKE Brain/Head without Cont IMPRESSION: No acute intracranial abnormality. [facility] CC: Dr. Jeremy Gerard DO; No Primary Care Physician ~ Wood Preparation Supervisor: Signed [facility]05-06-2025 Telephone encounter Note* Telephone Encounter - Unruly Gonzalez RN - 10/15/2024 10:04 AM EDT Images from the original note were not included. Cody Santana (Johnson: [id number]) Need Help? Call us at Status Sent to Plan today Drug Nurtec 75MG dispersible tablets Form [place] Medicaid [place] Electronic PA Form (2016 NCPDP) [facility]05-06-2025 Miscellaneous Notes* Telephone Encounter - Unruly Gonzalez RN - 10/15/2024 10:04 AM EDT Images from the original note were not included. Cody Santana (Johnson: [id number]) Need Help? Call us at Status Sent to Plan today Drug Nurtec 75MG dispersible tablets Form [place] Medicaid [place] Electronic PA Form (2016 NCPDP) documented in [facility] Radiology Diagnostic study note [facility] Imaging Services [address] [place], [place] [address] Wrist min 3 Views MR#: [id number] Acct: [id number] Name: CODY SANTANA Rep #: [id number] : 1985 F 38 From: Oscar Ontiveros DO PCP: Care Physician,No Primary Status: REG ER Study:Wrist min 3 Views Date of Exam: Exam# [id number] Ordering Dr: Shilo Koch DO EXAM: Right wrist radiographs CLINICAL HISTORY: Pain COMPARISON: None TECHNIQUE: Three views of the right wrist FINDINGS: See impression RAD/Wrist min 3 Views IMPRESSION: Negative for acute displaced fracture or dislocation. No significant arthropathy. Reading Location: [facility] CC: Dr. Shilo Dunne DO; No Primary Care Physician ~ Wood Preparation Supervisor: Signed [facility]04-07-2025 Telephone encounter Note* Telephone Encounter - Dalia Worthington - 09/16/2024 10:51 AM EDT Physician: Tammy Call from pharmacy requesting refill. Please E-Scribe Last OV: 10/02/2023 with Tammy Future OV: Not Scheduled. Scheduling mychart sent Requested Prescriptions Pending Prescriptions Disp Refills AIMOVIG AUTOINJECTOR 70 mg/mL auto-injector [Pharmacy Med Name: Aimovig 70 MG/ML Subcutaneous Solution Auto-injector] 3 mL 0 Sig: INJECT 1 ML SUBCUTANEOUSLY ONCE EVERY MONTH Pharmacy Name: Donnie Worthington [facility]04-07-2025 Miscellaneous Notes* Telephone Encounter - Dalia Worthington - 09/16/2024 10:51 AM EDT Physician: Tammy Call from pharmacy requesting refill. Please E-Scribe Last OV: 10/02/2023 with Tammy Peralta OV: Not Scheduled. Scheduling mychart sent Requested Prescriptions Pending Prescriptions Disp Refills AIMOVIG AUTOINJECTOR 70 mg/mL auto-injector [Pharmacy Med Name: Aimovig 70 MG/ML Subcutaneous Solution Auto-injector] 3 mL 0 Sig: INJECT 1 ML SUBCUTANEOUSLY ONCE EVERY MONTH Pharmacy Name: Donnie G[facility]mez [place] documented in this encounterOhio[facility] NoteHNO ID: [id number] Author: CHARLINE WOOTEN APRN.PLUCK SEPARATOR Service: ? Author Type: Nurse Practitioner Type: Progress Notes Filed: 08/28/2024 12:12 Note Text: [facility] Established Visit Consultation is requested by: No referring provider defined for this encounter. PCP: To use this Smartlink, specify the provider ID whose address you want to display, e.g., .PROVADDR[1 (where 1 is the provider ID). [facility] Cody Santana is a 38 year old female presenting for follow up. Initial visit with Dr. Marques on 10/25/23. 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 As per the patient, stroke was suspected and was advised MRI brain as out patient. However, the MRI brain that was done two months later was negative for stroke. No recurrence of stroke symptoms. She was referred to the stroke clinic for further evaluation and management. Patient has not been adherent with the Eliquis Review of system: Mild snoring but no witnessed apnea. As per her sleep study came back negativeX1 miscarriage. No trauma or whiplash. She used to follow up with the chiropractic clinic and last visit was one wear ago Social history: Chronic tobacco smoker. No history of ETOH or drug abuse. She is single Reason for Visit: TIA Date of Last Event: 03/15/2023 Antiplatelets/Anticoagulants: Enoxaparin sodium Residual Deficits: No residual deficits Current Living Situation: Home with minor children Current use of a mobility aid for walking/getting around: None Office Visit 02/28/24 -presents for hospital discharge follow up -denies any new stroke-like symptoms -history of vertigo, had some symptoms last night when she was laying down to go to bed. [place] like prior episodes. No issues getting up to walk to the bathroom. No nausea or vomiting -tired during the day -her boyfriend has later work schedule so she goes to sleep around 2AM and wakes 8:30-9AM. 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 Recommended 3 months lovenox then consideration of going to [facility] vascular -unsure of next appt with Vascular -seeing Hematology in May, she has questions about the lupus anticoagulant -BP 110/73 -current smoker, 1.5ppd - over the summer was down to 1 cigrette per day but was under a lot of stress, DCF took her children away but she has them back now -DVT and PE in 2016 that was attributed to factor V Leiden mutation Office Visit 08/28/24 -presents for follow up -denies any new stroke-like symptoms -Hematology - last visit May 2024, recommend indefinite anticoagulation -eliquis 5mg BID -hurt her back at work the other week lifting something, has been working with workers comp -sleeping better -has smart watch sleep tracker -BP 110/72 No past medical history on file. PAST SURGICAL HISTORY Procedure Laterality Date REVISE MEDIAN N/CARPAL TUNNEL SURG Bilateral 2016 FAMILY HISTORY Problem Relation Age of Onset Stroke Mother other (CHF) Mother COPD Mother other (rheumatiod arthritis) Father Leukemia Father COPD Maternal Grandmother Pancreatic Cancer Maternal Grandfather Ovarian cancer Paternal Grandmother Social History Tobacco Use Smoking status: Every Day Current packs/day: 1.00 Average packs/day: 1 pack/day for 21.7 years (21.7 ttl pk-yrs) Types: Cigarettes Start date: 12/17/2002 Smokeless tobacco: Never Vaping Use Vaping status: Some Days Substances: Nicotine Devices: Disposable Substance Use Topics Alcohol use: Not Currently Drug use: Not Currently MEDICATIONS Current Outpatient Medications Medication Sig lidocaine (LIDODERM) 5 % Apply 1 Patch as directed every 24 hours. HYDROcodone-acetaminophen (NORCO) 5-325 mg per tablet Take 1 tablet by mouth every 8 hours as needed for pain. methocarbamol (ROBAXIN) 500 mg tablet Take 500 mg by mouth four times daily. rimegepant (NURTEC ODT) 75 mg disintegrating tablet Take 1 tablet by mouth once daily as needed (Migraine). albuterol HFA (PROVENTIL HFA, VENTOLIN HFA) 90 mcg/actuation inhaler Inhale 2 Puffs as instructed every 6 hours as needed for wheezing/shortness of breath. m (more content not included)...[facility]03-14-2025 Evaluation note* Diagnosis Onset Date Resolution Status Admit Date Acute lumbar myofascial strain inact ivon August 23, 2024 9:00am Lumbar pain acute September 07, 025 11:18am Anemia acute October 22, 2024 9:51pm Expressive aphasia acute October 222024 9:51pm Headache acute October 22, 2024 9:51pm Left leg weakness acute October 9:51pm [facility] Work Phone: 1(695) 989-525202-17-2025 History of Present illness Narrative* Savage Kasper, RT(R) - 07/29/2024 7:30 PM EST Radiology Service Progress Note PATIENT NAME: Cody Santana DATE OF SERVICE: July 29, 2024 TIME: 7:25 PM PATIENT IDENTITY VERIFICATION COMPLETED USING TWO (2) IDENTIFIERS: Name and Date of confirmedby patient verbally. FALL SCREENING: Has the patient had 2 falls in the last year or 1 fall with injury or currently using an Ambulatory Assistive Device (Walker, Cane, Wheelchair, Crutches, etc.)? No PATIENT GENDER DATA: Assigned female at . status: : No status:NO. PATIENT RELEVANT IMPLANT DATA REVIEWED: Not Applicable PATIENT PRESENTS WITH AN IMPLANTABLE OR ATTACHED WAREHOUSE PICKER: No RADIOLOGY DEPARTMENT: General X-ray: Exam(s) Completed: Upper Extremity X- Ray(s): Wrist, right PERIPHERAL IV DATA: Not applicable SIGNED BY: RT Berlin(Lisa) July 29, 2024 7:25 PM documented in this encounterOhio[facility]25 NoteHNO ID: [id number] Author: SAVAGE KASPER RT(R) Service: Radiology Author Type: Technologist Type: Progress Notes Filed: 07/29/2024 19:31 Note Text: Radiology Service Progress Note PATIENT NAME: Cody Santana DATE OF SERVICE: July 29, 2024 TIME: 7:25 PM PATIENT IDENTITY VERIFICATION COMPLETED USING TWO (2) IDENTIFIERS: Name and Date of confirmed by patient verbally. FALL SCREENING: Has the patient had 2 falls in the last year or 1 fall with injury or currently using an Ambulatory Assistive Device (Walker, Cane, Wheelchair, Crutches, etc.)? No PATIENT GENDER DATA: Assigned female at . status: : No status: NO. PATIENT RELEVANT IMPLANT DATA REVIEWED: Not Applicable PATIENT PRESENTS WITH AN IMPLANTABLE OR ATTACHED WAREHOUSE PICKER: No RADIOLOGY DEPARTMENT: General X-ray: Exam(s) Completed: Upper Extremity X-Ray(s): Wrist, right PERIPHERAL IV DATA: Not applicable SIGNED BY: RT Berlin(R) July 29, 2024 7:25 [facility]02-17-2025 NoteHNO ID: [id number] Author: JEOVANY JOSEPH PA-C Service: ? Author Type: Physician Cap Sewer Type: Progress Notes Filed: 07/29/2024 20:03 Note Text: This note was created using CloudPassageriter. Subjective Cody Santana is a 38 year old female. Patient is a 38-year-old female who complains of pain to her right hand and wrist secondary to an injury she sustained while shoveling snow yesterday. Patient reports that she twisted her right hand and wrist awkwardly and has now developed pain to the anterior and ulnar right wrist with radiation to her right hand. Patient does have a history of carpal tunnel syndrome and denies history of fracture or surgery to her right hand and wrist. Patient denies direct blow injury. Patient reports no paresthesia or paralysis to right fingers and states that her bit gatherer is intact. Patient reports no pain or injury to right shoulder and elbow. Patient is right-hand dominant. Patient is taking only Tylenol for pain. Review of Systems Musculoskeletal: Right Wrist Pain All other systems reviewed and are negative. Objective BP 110/72 Pulse 90 Temp 36.9 ?C (98.5 ?F) (Tympanic) Resp 16 Wt 92 kg (202 lb 12.8 oz) LMP (LMP Unknown) SpO2 99% BMI 35.92 kg/m? Physical Exam Vitals and nursing note reviewed. Constitutional: Appearance: Normal appearance. She is normal weight. HENT: Head: Normocephalic and atraumatic. Nose: Nose normal. Mouth/Throat: Mouth: Mucous membranes are moist. Pharynx: Oropharynx is clear. Eyes: Extraocular Movements: Extraocular movements intact. Conjunctiva/sclera: Conjunctivae normal. Pupils: Pupils are equal, round, and reactive to light. Cardiovascular: Rate and Rhythm: Normal rate. Pulses: Normal pulses. Pulmonary: Effort: Pulmonary effort is normal. Breath sounds: Normal breath sounds. Musculoskeletal: General: Tenderness present. No swelling, deformity or signs of injury. Normal range of motion. Cervical back: Normal range of motion and neck supple. Comments: Unremarkable exam of the right hand and wrist. There is no degree of soft tissue edema noted to the right hand and wrist. No crepitus or deformity is noted to the right hand and wrist. Overlying skin is clear without erythema or ecchymosis. MSP to the right fingers is fully intact and the patient demonstrates strong and equal bit gatherer. Patient demonstrates reduced range of motion in flexion is to the right wrist secondary to pain. Patient demonstrates full extension of the right wrist. Skin: General: Skin is warm and dry. Capillary Refill: Capillary refill takes less than 2 seconds. Findings: No bruising or erythema. Neurological: General: No focal deficit present. Mental Status: She is alert and oriented to person, place, and time. Sensory: No sensory deficit. Motor: No weakness. Coordination: Coordination normal. Psychiatric: Mood and Affect: Mood normal. Behavior: Behavior normal. Thought Content: Thought content normal. Judgment: Judgment normal. Assessment and Plan Physical exam findings as noted above. X-ray right wrist is negative for acute findings as reported by the radiologist. Radiologist does identify a well-defined bone density posterior to the lunate which appears chronic. This would be consistent with the patient's history of recurrent right wrist pain likely due to carpal tunnel syndrome. A Velcro wrist splint was placed to the patient's right hand and wrist myself with MSP intact pre- and post-placement. Ibuprofen and supportive care instructions were discussed and the patient verbalizes good understanding of same. CLINICAL IMPRESSION: Sprain/Strain Right Wrist ASSESSMENT/PLAN: 1. Right wrist pain - ICD9: 719.43, ICD10: M25.531 - XR WRIST GENERAL 3V PA/LAT/OBL RIGHT [facility] History of Present illness Narrative* Jeovany Joseph PA-C - 07/29/2024 7:21 PM EST This note was created using Audiodraft. Subjective Cody Santana is a 38 year old female. Patient is a 38-year-old female who complains of pain to her right hand and wrist secondary to an injury she sustained while shoveling snow yesterday. Patient reports that she twisted her right hand and wrist awkwardly and has now developed pain to the anterior and ulnar right wrist with radiation to her right hand. Patient does have a history of carpal tunnel syndrome and denies history of fracture or surgery to her right hand and wrist. Patient denies direct blow injury. Patient reports no paresthesia or paralysis to right fingers and states that her bit gatherer is intact. Patient reports no pain or injury to right shoulder and elbow. Patient is right-hand dominant. Patient is taking only Tylenol for pain. Review of Systems Musculoskeletal: Right Wrist Pain All other systems reviewed and are negative. Objective BP 110/72 Pulse 90 Temp 36.9 C (98.5 F) (Tympanic) Resp 16 Wt 92 kg (202 lb 12.8 oz) LMP (LMP Unknown) SpO2 99% BMI 35.92 kg/m Physical Exam Vitals and nursing note reviewed. Constitutional: Appearance: Normal appearance. She is normal weight. HENT: Head: Normocephalic and atraumatic. Nose: Nose normal. Mouth/Throat: Mouth: Mucous membranes are moist. Pharynx: Oropharynx is clear. Eyes: Extraocular Movements: Extraocular movements intact. Conjunctiva/sclera: Conjunctivae normal. Pupils: Pupils are equal, round, and reactive to light. Cardiovascular: Rate and Rhythm: Normal rate. Pulses: Normal pulses. Pulmonary: Effort: Pulmonary effort is normal. Breath sounds: Normal breath sounds. Musculoskeletal: General: Tenderness present. No swelling, deformity or signs of injury. Normal range of motion. Cervical back: Normal range of motion and neck supple. Comments: Unremarkable exam of the right hand and wrist. There is no degree of soft tissue edema noted to the right hand and wrist. No crepitus or deformity is noted to the right hand and wrist. Overlying skin is clear without erythema or ecchymosis. MSP to the right fingers is fully intact and thepatient demonstrates strong and equal bit gatherer. Patient demonstrates reduced range of motion in flexion is to the right wrist secondary to pain. Patient demonstrates full extension of the right wrist. Skin: General: Skin is warm and dry. Capillary Refill: Capillary refill takes less than 2 seconds. Findings: No bruising or erythema. Neurological: General: No focal deficit present. Mental Status: She is alert and oriented to person, place, and time. Sensory: No sensory deficit. Motor: No weakness. Coordination: Coordination normal. Psychiatric: Mood and Affect: Mood normal. Behavior: Behavior normal. Thought Content: Thought content normal. Judgment: Judgment normal. Assessment and Plan Physical exam findings as noted above. X-ray right wrist is negative for acute findings as reportedby the radiologist. Radiologist does identify a well-defined bone density posterior to the lunate which appears chronic. This would be consistent with the patient's history of recurrent right wrist pain likely due to carpal tunnel syndrome. A Velcro wrist splint was placed to the patient's right hand and wrist myself with MSP intact pre- and post-placement. Ibuprofen and supportive care instructions were discussed and the patient verbalizes good understanding of same. CLINICAL IMPRESSION: Sprain/Strain Right Wrist ASSESSMENT/PLAN: 1. Right wrist pain - ICD9: 719.43, ICD10: M25.531 - XR WRIST GENERAL 3V PA/LAT/OBL RIGHT Jeovany THERON Joseph [facility] Telephone encounter Note * Telephone Encounter - Inderjit Ontiveros MA - 07/18/2024 4:16 PM EST Patient notified. Inderjit Ontiveros MA [facility]02-06-2025 Miscellaneous Notes* Telephone Encounter - Inderjit Ontiveros MA - 07/18/2024 4:16 PM EST Patient notified. Inderjit Ontiveros MA * Telephone Encounter - Neli Redd APRN.CNP - 07/18/2024 3:04 PM EST CXR negative Strep negative Please advise patient documented [facility] Telephone encounter Note * Telephone Encounter - Neli Redd APRN.CNP - 07/18/2024 3:04 PM EST CXR negative Strep negative Please advise patient [facility] Work Phone: 1(673) 985-925702-06-2025 History of Present illness Narrative* Savage Kasper, RT(R) - 07/18/2024 2:30 PM EST Radiology Service Progress Note PATIENT NAME: Cody Santana DATE OF SERVICE: July 18, 2024 TIME: 2:27 PM PATIENT IDENTITY VERIFICATION COMPLETED USING TWO (2) IDENTIFIERS: Name and Date of confirmedby patient verbally. FALL SCREENING: Has the patient had 2 falls in the last year or 1 fall with injury or currently using an Ambulatory Assistive Device (Walker, Cane, Wheelchair, Crutches, etc.)? No PATIENT GENDER DATA: Assigned female at . status: : No status:NO. PATIENT RELEVANT IMPLANT DATA REVIEWED: Not Applicable PATIENT PRESENTS WITH AN IMPLANTABLE OR ATTACHED WAREHOUSE PICKER: No RADIOLOGY DEPARTMENT: General X-ray: Exam(s) Completed: Chest X-Ray PERIPHERAL IV DATA: Not applicable SIGNED BY: RT Berlin(Lisa) July 18, 2024 2:27 PM documented in this encounterOhio[facility]-2025 NoteHNO ID: [id number] Author: SAVAGE KASPER RT(R) Service: Radiology Author Type: Technologist Type: Progress Notes Filed: 07/18/2024 14:36 Note Text: Radiology Service Progress Note PATIENT NAME: Cody Santana DATE OF SERVICE: July 18, 2024 TIME: 2:27 PM PATIENT IDENTITY VERIFICATION COMPLETED USING TWO (2) IDENTIFIERS: Name and Date of confirmed by patient verbally. FALL SCREENING: Has the patient had 2 falls in the last year or 1 fall with injury or currently using an Ambulatory Assistive Device (Walker, Cane, Wheelchair, Crutches, etc.)? No PATIENT GENDER DATA: Assigned female at . status: : No status: NO. PATIENT RELEVANT IMPLANT DATA REVIEWED: Not Applicable PATIENT PRESENTS WITH AN IMPLANTABLE OR ATTACHED WAREHOUSE PICKER: No RADIOLOGY DEPARTMENT: General X-ray: Exam(s) Completed: Chest X-Ray PERIPHERAL IV DATA: Not applicable SIGNED BY: RT Berlin(R) July 18, 2024 2:27 [facility]02-06-2025 NoteHNO ID: [id number] Author: NELI REDD APRN.PLUCK SEPARATOR Service: ? Author Type: Nurse Practitioner Type: Progress Notes Filed: 07/18/2024 14:34 Note Text: This note was created using NoteWriter. Subjective Cody Santana is a 38 year old female. 38 year old female with PMH depression, anxiety, acid reflux and bipolar presents for illness Acute onset last night +cough +sore throat Dry cough Chest wall pain with coughing I was told I probably have COPD Has been using inhaler Denies dyspnea Denies hemoptysis Denies CP Denies abdominal pain +tobacco usage +ill contacts, +influenza at home Daughter here for similar The history is provided by the patient. No foreign language teacher was used. Cough This is a new problem. The current episode started yesterday. The problem occurs constantly. The problem has been gradually worsening. The cough is Non-productive. There has been no fever. Associated symptoms include rhinorrhea, sore throat, myalgias and wheezing. Pertinent negatives include no chest pain, no chills, no sweats, no weight loss, no ear congestion, no ear pain, no headaches, no shortness of breath and no eye redness. Treatments tried: albuterol inhaler. The treatment provided no relief. She is a smoker. Her past medical history does not include bronchitis, pneumonia, bronchiectasis, COPD, emphysema or asthma. No past medical history on file. PAST SURGICAL HISTORY Procedure Laterality Date REVISE MEDIAN N/CARPAL TUNNEL SURG Bilateral 2016 ALLERGIES Keflex [Cephalexin] and Percocet [Oxycodone-Acetaminophen] MEDICATIONS rimegepant (NURTEC ODT) 75 mg disintegrating tablet Take 1 tablet by mouth once daily as needed (Migraine). albuterol HFA (PROVENTIL HFA, VENTOLIN HFA) 90 mcg/actuation inhaler Inhale 2 Puffs as instructed every 6 hours as needed for wheezing/shortness of breath. medroxyPROGESTERone (DEPO-PROVERA) 150 mg/mL injection Inject 150 mg intramuscularly every 12 weeks. erenumab-aooe (AIMOVIG AUTOINJECTOR) 70 mg/mL auto-injector Inject 1 mL subcutaneously once every month. ELIQUIS 5 mg tab(s) Take 1 tablet by mouth every 12 hours. cetirizine (ZYRTEC) 10 mg tablet Take 10 mg by mouth once daily. cholecalciferol (VITAMIN D3) 1,000 unit tab tablet [...] montelukast (SINGULAIR) 10 mg tablet Take 1 tablet by mouth every afternoon. nystatin (MYCOSTATIN) powder APPLY POWDER TOPICALLY TWICE TO THREE TIMES DAILY TO GROIN AREA DIRECTED topiramate (TOPAMAX) 200 mg tablet Take 200 mg by mouth two times a day. haloperidol (HALDOL) 5 mg tablet Take 5 mg by mouth as needed (for anxiety). amoxicillin (AMOXIL) 500 mg capsule Take 500 mg by mouth three times a day. (Patient not taking: Reported on 07/18/2024) enoxaparin (LOVENOX) 100 mg/mL syrg Inject 0.9 mL subcutaneously every 12 hours. (Patient not taking: Reported on 06/26/2024) FAMILY HISTORY Problem Relation Age of Onset Stroke Mother other (CHF) Mother COPD Mother other (rheumatiod arthritis) Father Leukemia Father COPD Maternal Grandmother Pancreatic Cancer Maternal Grandfather Ovarian cancer Paternal Grandmother Social History Tobacco Use Smoking status: Every Day Current packs/day: 1.00 Average packs/day: 1 pack/day for 21.6 years (21.6 ttl pk-yrs) Types: Cigarettes Start date: 12/17/2002 Smokeless tobacco: Never Vaping Use Vaping status: Some Days Substances: Nicotine Devices: Disposable Substance Use Topics Alcohol use: Not Currently Drug use: Not Currently Review of Systems Constitutional: Positive for fatigue. Negative for chills, fever and weight loss. HENT: Positive for congestion, rhinorrhea and sore throat. Negative for ear pain. Eyes: Negative for discharge, redness and itching. Respiratory: Positive for cough, chest tightness and wheezing. Negative for apnea and shortness of breath. Cardiovascular: Negative for chest pain, palpitations and leg swelling. Gastrointestinal: Negative for abdominal pain, diarrhea, nausea and vomiting. Musculoskeletal: Positive for myalgias. Neurological: Negative for headaches. Hematological: Positive for adenopathy. Does not bruise/bleed easily. Psychiatric/Behavioral: Negative for agitation and behavioral problems. Objective BP 106/70 Pulse 92 Temp 37.2 ?C (99 ?F) Resp 22 Wt 92 kg (202 lb 13.2 oz) LMP (LMP Unknown) SpO2 100% BMI 35.93 kg/m? Physical Exam Vitals and nursing note reviewed. Constitutional: General: She is not in acute distress. Appearance: Normal appearance. She is normal weight. She is not ill-appearing, toxic-appearing or diaphoretic. HENT: Head: Normocephalic and atraumatic. (more content not included)...[facility]02-06-2025 History of Present illness Narrative* Neli Redd APRN.PLUCK SEPARATOR - 07/18/2024 2:19 PM EST This note was created using CloudPassageriter. Subjective Cody Santana is a 38 year old female. 38 year old female with PMH depression, anxiety, acid reflux and bipolar presents for illness Acute onset last night +cough +sore throat Dry cough Chest wall pain with coughing I was told I probably have COPD Has been using inhaler Denies dyspnea Denies hemoptysis Denies CP Denies abdominal pain +tobacco usage +ill contacts, +influenza at home Daughter here for similar The history is provided by the patient. No foreign language teacher was used. Cough This is a new problem. The current episode started yesterday. The problem occurs constantly. The problem has been gradually worsening. The cough is Non- productive. There has been no fever. Associatedsymptoms include rhinorrhea, sore throat, myalgias and wheezing. Pertinent negatives include no chest pain, no chills, no sweats, no weight loss, no ear congestion, no ear pain, no headaches, no shortness of breath and no eye redness. Treatments tried: albuterol inhaler. The treatment provided no relief. She is a smoker. Her past medical history does not include bronchitis, pneumonia, bronchiectasis, COPD, emphysema or asthma. No past medical history on file. PAST SURGICAL HISTORY Procedure Laterality Date REVISE MEDIAN N/CARPAL TUNNEL SURG Bilateral 2016 ALLERGIES Keflex [Cephalexin] and Percocet [Oxycodone-Acetaminophen] MEDICATIONS rimegepant (NURTEC ODT) 75 mg disintegrating tablet Take 1 tablet by mouth once daily as needed (Migraine). albuterol HFA (PROVENTIL HFA, VENTOLIN HFA) 90 mcg/actuation inhaler Inhale 2 Puffs as instructed every 6 hours as needed for wheezing/shortness of breath. medroxyPROGESTERone (DEPO-PROVERA) 150 mg/mL injection Inject 150 mg intramuscularly every 12 weeks. erenumab-aooe (AIMOVIG AUTOINJECTOR) 70 mg/mL auto-injector Inject 1 mL subcutaneously once every month. ELIQUIS 5 mg tab(s) Take 1 tablet by mouth every 12 hours. cetirizine (ZYRTEC) 10 mg tablet Take 10 mg by mouth once daily. cholecalciferol (VITAMIN D3) 1,000 unit tab tablet [...] montelukast (SINGULAIR) 10 mg tablet Take 1 tablet by mouth every afternoon. nystatin (MYCOSTATIN) powder APPLY POWDER TOPICALLY TWICE TO THREE TIMES DAILY TO GROIN AREA DIRECTED topiramate (TOPAMAX) 200 mg tablet Take 200 mg by mouth two times a day. haloperidol (HALDOL) 5 mg tablet Take 5 mg by mouth as needed (for anxiety). amoxicillin (AMOXIL) 500 mg capsule Take 500 mg by mouth three times a day. (Patient not taking: Reported on 07/18/2024) enoxaparin (LOVENOX) 100 mg/mL syrg Inject 0.9 mL subcutaneously every 12 hours. (Patient not taking: Reported on 06/26/2024) FAMILY HISTORY Problem Relation Age of Onset Stroke Mother other (CHF) Mother COPD Mother other (rheumatiod arthritis) Father Leukemia Father COPD Maternal Grandmother Pancreatic Cancer Maternal Grandfather Ovarian cancer Paternal Grandmother Social History Tobacco Use Smoking status: Every Day Current packs/day: 1.00 Average packs/day: 1 pack/day for 21.6 years (21.6 ttl pk-yrs) Types: Cigarettes Start date: 12/17/2002 Smokeless tobacco: Never Vaping Use Vaping status: Some Days Substances: Nicotine Devices: Disposable Substance Use Topics Alcohol use: Not Currently Drug use: Not Currently Review of Systems Constitutional: Positive for fatigue. Negative for chills, fever and weight loss. HENT: Positive for congestion, rhinorrhea and sore throat. Negative for ear pain. Eyes: Negative for discharge, redness and itching. Respiratory: Positive for cough, chest tightness and wheezing. Negative for apnea and shortness of breath. Cardiovascular: Negative for chest pain, palpitations and leg swelling. Gastrointestinal: Negative for abdominal pain, diarrhea, nausea and vomiting. Musculoskeletal: Positive for myalgias. Neurological: Negative for headaches. Hematological: Positive for adenopathy. Does not bruise/bleed easily. Psychiatric/Behavioral: Negative for agitation and behavioral problems. Objective BP 106/70 Pulse 92 Temp 37.2 C (99 F) Resp 22 Wt 92 kg (202 lb 13.2 oz) LMP (LMP Unknown) SpO2 100% BMI 35.93 kg/m Physical Exam Vitals and nursing note reviewed. Constitutional: General: She is not in acute distress. Appearance: Normal appearance. She is normal weight. She is not ill-appearing, toxic-appearing or diaphoretic. HENT: Head: Normocephalic and atraumatic. Right Ear: Ear canal and external ear normal. Left Ear: Ear canal and external ear normal. Nose: Rhinorrhea present. No congestion. Mouth/Throat: Mouth: Mucous membranes are moist. Pharynx: Posterior oropharyngeal erythema present. No oropharyngeal exudate. Eyes: General: Right eye: No discharge. Left eye: No discharge. Extraocular Movements: Extraocular movements intact. Conjunctiva/sclera: Conjunctivae normal. Pupils: Pupils are equal, round, and reactive to light. Cardiovascular: Rate and Rhythm: Normal rate and regular rhythm. Pulses: Normal pulses. Heart sounds: Normal heart sounds. No murmur heard. No friction rub. Pulmonary: Effort: Pulmonary effort is normal. No respiratory distress. Breath sounds: Normal breath sounds. No stridor. No wheezing, rhonchi or rales. Comments: Harsh cough noted Chest: Chest wall: No tenderness. Abdominal: General: Abdomen is flat. There is no distension. Palpations: Abdomen is soft. There is no mass. Tenderness: There is no abdominal tenderness. There is no right CVA tenderness, left CVA tenderness, guarding or rebound. Hernia: No hernia is present. Musculoskeletal: General: No swelling, tenderness, deformity or signs of injury. Normal range of motion. Cervical back: Normal range of motion and neck supple. No rigidity. Right lower leg: No edema. Left lower leg: No edema. Lymphadenopathy: Cervical: Cervical adenopathy present. Skin: General: Skin is warm and dry. Capillary Refill: Capillary refill takes less than 2 seconds. Coloration: Skin is not jaundiced or pale. Findings: No bruising, erythema, lesion or rash. Neurological: General: No focal deficit present. Mental Status: She is alert and oriented to person, place, and time. Cranial Nerves: No cranial nerve deficit. Sensory: No sensory deficit. Motor: No weakness. Coordination: Coordination normal. Gait: Gait normal. Psychiatric: Mood and Affect: Mood normal. Behavior: Behavior normal. Thought Content: Thought content normal. Judgment: Judgment normal. Assessment and Plan ASSESSMENT/PLAN: 1. URI, acute - ICD9: 465.9, ICD10: J06.9 (primary diagnosis) Acute onset last night - Discussed viral etiology and rationale for treatment. - Group A strep molecular testing negative - Symptomatic treatment with prn analgesia - Supportive care with fluids and rest - The patient may also use OTC cough and cold meds as needed, warm salt water gargles, throat lozenges and/or OTC throat spray as needed, and nasal saline gtts and suction prn. - Follow up in 3-5 days if symptoms persist or sooner if worsening of symptoms - Declines COVID - XR CHEST 2V FRONTAL/LAT - STREP A MOLECULAR (POC) 2. Acute cough - ICD9: 786.2, ICD10: R05.1 X one day No red flags - XR CHEST 2V FRONTAL/LAT-obtained and will call with results Will call [phone] - STREP A MOLECULAR (POC) Neli Redd APRN.PLUCK SEPARATOR documented in this encounterOhio[facility]25 Telephone encounter Note * Telephone Encounter - Victor Manuel Horn - 07/15/2024 9:05 AM EST Schedules have not been entered for 2025. Will postpone note to contact patient and enter recall letter. Patient informed. [facility] Work Phone: 1(855) 944-146502-03-2025 Miscellaneous Notes* Telephone Encounter - Victor Manuel Horn - 07/15/2024 9:05 AM EST Schedules have not been entered for 2025. Will postpone note to contact patient and enter recall letter. Patient informed. * Telephone Encounter - Natalie Mancia LPN - 07/15/2024 8:21 AM EST Spoke with pt. Informed anticardiolipin and antibeta 2 glycoprotein antibodies were negative so apixaban is a good anticoagulant medication for her. She should continue indefinitely. OV in about a year, our PSS would reach ut to her to get that appt. scheduled. Pt. Voiced understanding. Information faxed as directed. Natalie Mancia LPN * Telephone Encounter - Paty Arciniega DO - 07/14/2024 2:21 PM EST Can let her know the retesting for lupus anticoagulant could not be performed due to apixaban stillbeing in her bloodstream. Not sure how that can be if she held it for a week. Nonetheless the anticardiolipin and antibeta 2 glycoprotein antibodies were negative so apixaban is a good anticoagulant medication for her. She should continue indefinitely. OV in about a year. Please fax a copy of this note along with her recent lab testing to her primary care's office. Paty Arciniega DO documented in this encounterOhio[facility]02-03-2025 Telephone encounter Note * Telephone Encounter - Natalie Mancia LPN - 07/15/2024 8:21 AM EST Spoke with pt. Informed anticardiolipin and antibeta 2 glycoprotein antibodies were negative so apixaban is a good anticoagulant medication for her. She should continue indefinitely. OV in about a year, our PSS would reach ut to her to get that appt. scheduled. Pt. Voiced understanding. Information faxed as directed. Natalie Mancia LPN [facility]02-02-20[facility] Telephone encounter Note* Telephone Encounter - Paty Arciinega DO - 07/14/2024 2:21 PM EST Can let her know the retesting for lupus anticoagulant could not be performed due to apixaban stillbeing in her bloodstream. Not sure how that can be if she held it for a week. Nonetheless the anticardiolipin and antibeta 2 glycoprotein antibodies were negative so apixaban is a good anticoagulant medication for her. She should continue indefinitely. OV in about a year. Please fax a copy of this note along with her recent lab testing to her primary care's office. Paty Arciniega DO [facility]01-16-2025 Telephone encounter Note* Telephone Encounter - Cody Riley MA - 06/27/2024 8:58 AM EST Patient active MyChart. Patient notified via MyCDubb message. Cody Riley MA [facility]01-16-2025 Miscellaneous Notes* Telephone Encounter - Cody Riley MA - 06/27/2024 8:58 AM EST Patient active MyChart. Patient notified via eFolder message. Cody Riley MA * Telephone Encounter - Inderjit Ontiveros MA - 06/27/2024 8:43 AM EST Left VM instructing patient to return call to receive results. Inderjit Ontiveros MA * Telephone Encounter - Les Mckeon APRN.CNP - 06/27/2024 7:25 AM EST Please inform patient that she did test positive for COVID-19. Follow return to work guidelines as provided during yesterday's visit. Continue supportive therapies. Follow-up with ED or PCP for any new or worsening symptoms. Les Mckeon APRN.CNP documented in this encounter[facility] Telephone encounter Note * Telephone Encounter - Inderjit Ontiveros MA - 06/27/2024 8:43 AM EST Left VM instructing patient to return call to receive results. Inderjit Ontiveros MA [facility]01-16-2025 Telephone encounter Note* Telephone Encounter - Les Mckeon APRN.CNP - 06/27/2024 7:25 AM EST Please inform patient that she did test positive for COVID-19. Follow return to work guidelines as provided during yesterday's visit. Continue supportive therapies. Follow-up with ED or PCP for any new or worsening symptoms. Les Mckeon APRN.CNP [facility]01-15-2025 NoteHNO ID: [id number] Author: JEOVANY JOSEPH PA-C Service: ? Author Type: Physician Cap Sewer Type: Progress Notes Filed: 06/26/2024 16:33 Note Text: This note was created using [employer]. Sarath Santana is a 38 year old female. Patient is a 38-year-old female who arrives with a request for COVID-19 testing. Patient states that she recently developed generalized fatigue and cough. Patient states that she did take a home COVID-19 test and the result was positive. Patient reports that multiple coworkers where she works recently tested positive for COVID-19. Patient states that her employer is requiring her to obtain a COVID-19 test at a medical care facility in order to authorize her sick leave of absence. Patient reports no fever or chills but does describe mild bodyaches. Patient denies congestion, sinus pressure, ear pain or sore throat. Fatigue Associated symptoms include coughing and fatigue. Review of Systems Constitutional: Positive for fatigue and malaise/fatigue. Respiratory: Positive for cough. All other systems reviewed and are negative. Objective BP 100/70 Pulse 88 Temp 37.3 ?C (99.1 ?F) Resp 21 Wt 94.7 kg (208 lb 12.4 oz) LMP (LMP Unknown) SpO2 98% BMI 36.98 kg/m? Physical Exam Vitals and nursing note reviewed. Constitutional: Appearance: Normal appearance. She is normal weight. HENT: Head: Normocephalic and atraumatic. Right Ear: External ear normal. Left Ear: External ear normal. Nose: Nose normal. Mouth/Throat: Mouth: Mucous membranes are moist. Pharynx: Oropharynx is clear. Eyes: Extraocular Movements: Extraocular movements intact. Conjunctiva/sclera: Conjunctivae normal. Pupils: Pupils are equal, round, and reactive to light. Cardiovascular: Rate and Rhythm: Normal rate and regular rhythm. Pulses: Normal pulses. Heart sounds: Normal heart sounds. Pulmonary: Effort: Pulmonary effort is normal. Breath sounds: Normal breath sounds. Musculoskeletal: Cervical back: Normal range of motion and neck supple. Skin: General: Skin is warm and dry. Capillary Refill: Capillary refill takes less than 2 seconds. Neurological: General: No focal deficit present. Mental Status: She is alert and oriented to person, place, and time. Psychiatric: Mood and Affect: Mood normal. Behavior: Behavior normal. Thought Content: Thought content normal. Judgment: Judgment normal. Assessment and Plan Physical exam findings as noted above. Influenza A/B/SARS-CoV-2/RSV PCR was ordered and the patient was advised that the results will be received tomorrow. Patient was provided with appropriate documentation of her Covid-19 virus infection and placed off work through 30 June 2024. CLINICAL IMPRESSION: Covid-19 Virus Infection ASSESSMENT/PLAN: 1. COVID-19 virus infection - ICD9: 079.89, ICD10: U07.1 - COVID AND INFLUENZA A/B AND RSV PCR, ROUTINE [facility]01-15-2025 History of Present illness Narrative* Jeovany Joseph PA-Radha - 06/26/2024 4:15 PM EST This note was created using [employer]. Subjective Cody Santana is a 38 year old female. Patient is a 38-year-old female who arrives with a request for COVID-19 testing. Patient states that she recently developed generalized fatigue and cough. Patient states that she did take a home COVID-19 test and the result was positive. Patient reports that multiple coworkers where she works recently tested positive for COVID-19. Patient states that her employer is requiring her to obtain a COVID-19 test at a medical care facility in order to authorize her sick leave of absence. Patient reports no fever or chills but does describe mild bodyaches. Patient denies congestion, sinus pressure, ear pain or sore throat. Fatigue Associated symptoms include coughing and fatigue. Review of Systems Constitutional: Positive for fatigue and malaise/fatigue. Respiratory: Positive for cough. All other systems reviewed and are negative. Objective BP 100/70 Pulse 88 Temp 37.3 C (99.1 F) Resp 21 Wt 94.7 kg (208 lb 12.4 oz) LMP (LMP Unknown) SpO2 98% BMI 36.98 kg/m Physical Exam Vitals and nursing note reviewed. Constitutional: Appearance: Normal appearance. She is normal weight. HENT: Head: Normocephalic and atraumatic. Right Ear: External ear normal. Left Ear: External ear normal. Nose: Nose normal. Mouth/Throat: Mouth: Mucous membranes are moist. Pharynx: Oropharynx is clear. Eyes: Extraocular Movements: Extraocular movements intact. Conjunctiva/sclera: Conjunctivae normal. Pupils: Pupils are equal, round, and reactive to light. Cardiovascular: Rate and Rhythm: Normal rate and regular rhythm. Pulses: Normal pulses. Heart sounds: Normal heart sounds. Pulmonary: Effort: Pulmonary effort is normal. Breath sounds: Normal breath sounds. Musculoskeletal: Cervical back: Normal range of motion and neck supple. Skin: General: Skin is warm and dry. Capillary Refill: Capillary refill takes less than 2 seconds. Neurological: General: No focal deficit present. Mental Status: She is alert and oriented to person, place, and time. Psychiatric: Mood and Affect: Mood normal. Behavior: Behavior normal. Thought Content: Thought content normal. Judgment: Judgment normal. Assessment and Plan Physical exam findings as noted above. Influenza A/B/SARS-CoV-2/RSV PCR was ordered and the patientwas advised that the results will be received tomorrow. Patient was provided with appropriate documentation of her Covid-19 virus infection and placed off work through 30 June 2024. CLINICAL IMPRESSION: Covid-19 Virus Infection ASSESSMENT/PLAN: 1. COVID-19 virus infection - ICD9: 079.89, ICD10: U07.1 - COVID & INFLUENZA A/B & RSV PCR, ROUTINE Jeovany Joseph PA-C documented in this encounter[facility] Evaluation note* Diagnosis Onset Date Resolution Status Admit Date Impetigo acute June 19, 025 11:18am [facility] Work Phone: 1(868) 992-604701-08-2025 Evaluation note* Diagnosis Onset Date Resolution Status Admit Date Impetigo acute June 19, 2 025 11:18am Acute lumbar myofascial strain inactive August 23, 2024 9:00am Lumbar pain acute September 07, 025 11:18am [facility] Work Phone: 1(765) 380-896901-02-2025 Telephone encounter Note* Telephone Encounter - Victor Manuel Horn - 06/13/2024 2:12 PM EST Lab scheduled [facility] Work Phone: 1(603) 717-412501-02-2025 Miscellaneous Notes* Telephone Encounter - Victor Manuel Horn - 06/13/2024 2:12 PM EST Lab scheduled * Telephone Encounter - Mary Alice Saravia LPN - 06/13/2024 12:05 PM EST Reviewed all instructions with patient and also sent instructions via eFolder. PSS- please schedule a lab appointment for LUPUS ANTI-COAGULANT PANEL 06/21/2024 @ 1:30 pm. Patientis aware of appointment date and time. Mary Alice Saravia LPN * Telephone Encounter - Mary Alice Saravia LPN - 06/13/2024 10:51 AM EST Left message for patient to contact the office. Mary Alice Saravia LPN * Telephone Encounter - Paty Arciniega DO - 06/12/2024 1:29 PM EST As discussed at most recent office visit, since D-dimer is normal hold apixaban and begin Lovenox injections every 12 hours beginning the morning after the last dose apixaban. Lab should be done a week after holding apixaban. Take one half dose of Lovenox the morning prior to lab testing (orders filed) then no further Lovenox. She should restart apixaban right after the lab work is drawn and loren nue until hears from us with results. Paty Arciniega DO documented in this encounterOhio[facility]01-[facility]25 Telephone encounter Note * Telephone Encounter - Mary Alice Saravia LPN - 06/13/2024 12:05 PM EST Reviewed all instructions with patient and also sent instructions via eFolder. PSS- please schedule a lab appointment for LUPUS ANTI-COAGULANT PANEL 06/21/2024 @ 1:30 pm. Patientis aware of appointment date and time. Mary Alice Saravia LPN [facility]01-02-2025 Telephone encounter Note* Telephone Encounter - Mary Alice Saravia LPN - 06/13/2024 10:51 AM EST Left message for patient to contact the office. Mary Alice Saravia LPN [facility]01-01-2025 Telephone encounter Note* Telephone Encounter - Paty Arciniega DO - 06/12/2024 1:29 PM EST As discussed at most recent office visit, since D-dimer is normal hold apixaban and begin Lovenox injections every 12 hours beginning the morning after the last dose apixaban. Lab should be done a week after holding apixaban. Take one half dose of Lovenox the morning prior to lab testing (orders filed) then no further Lovenox. She should restart apixaban right after the lab work is drawn and loren nue until hears from us with results. Paty Arciniega DO [facility]12-20-2024 NoteHNO ID: [id number] Author: PATY ARCINIEGA DO Service: ? Author Type: Physician Type: Progress Notes Filed: 05/31/2024 15:00 Note Text: Hematologic problem(s): 1) Factor V Leiden. 2) Several VTE events. HPI: Patient is a 38-year-old female with past medical history as outlined below. DVT left leg diagnosed somewhere [id number]. Anticoagulated for several months. Multiple PEs. Anticoagulated for several months. Recurrent PEs. At that point she recalls having testing done that revealed factor V Leiden. Was advised indefinite anticoagulation. This was in 2019. Has no copay for apixaban. Endorses she is consistently taking it. Three children--2009, 2010 and 2016. All full term. At age 17, may have had a miscarriage at a very young gestational age--was told too early to have tested positive for . [facility]. On Depo-Provera since about 2015. Was admitted to [facility] in August of this year for TIA. Manifested as slurred speech while she was at work. MRI showed no evidence for acute infarct or enhancing intracranial mass. Very mild chronic white matter changes which may be secondary to chronic small vessel ischemic gliosis, other vascular etiologies or sequela of nonspecific demyelination or inflammation were observed. CTA of the head and neck demonstrated no evidence of intracranial aneurysm or vascular malformation. There was no large vessel occlusion or flow-limiting stenosis. Found record of a lower extremity duplex ultrasound at [facility] from 08/07/2020 showing partial compressibility with bright intraluminal echoes in the right popliteal vein consistent with chronic DVT. Possibility of an acute component cannot be excluded at that time. PMH: Chronic migraine headaches. Chronic neck and back pain. Heterozygous factor V Leiden. History of renal lithiasis. History of VTE. Smoking. Presents for ongoing hematologic management. Interim history: No complaints today. No TIA symptoms since first seen. No unusual bleeding or unexplained bruising. ALLERGIES Allergen Reactions Keflex [Cephalexin] Other: See Comments Achy, weak Percocet [Oxycodone* Other: See Comments Nose itch Current Outpatient Medications Medication Sig rimegepant (NURTEC ODT) 75 mg disintegrating tablet Take 1 tablet by mouth once daily as needed (Migraine). albuterol HFA (PROVENTIL HFA, VENTOLIN HFA) 90 mcg/actuation inhaler Inhale 2 Puffs as instructed every 6 hours as needed for wheezing/shortness of breath. medroxyPROGESTERone (DEPO-PROVERA) 150 mg/mL injection Inject 150 mg intramuscularly every 12 weeks. erenumab-aooe (AIMOVIG AUTOINJECTOR) 70 mg/mL auto-injector Inject 1 mL subcutaneously once every month. ELIQUIS 5 mg tab(s) Take 1 tablet by mouth every 12 hours. cetirizine (ZYRTEC) 10 mg tablet Take 10 mg by mouth once daily. cholecalciferol (VITAMIN D3) 1,000 unit tab tablet [...] montelukast (SINGULAIR) 10 mg tablet Take 1 tablet by mouth every afternoon. nystatin (MYCOSTATIN) powder APPLY POWDER TOPICALLY TWICE TO THREE TIMES DAILY TO GROIN AREA DIRECTED topiramate (TOPAMAX) 200 mg tablet Take 200 mg by mouth two times a day. haloperidol (HALDOL) 5 mg tablet Take 5 mg by mouth as needed (for anxiety). No current facility-administered medications for this visit. Social History Tobacco Use Smoking status: Every Day Current packs/day: 1.00 Average packs/day: 1 pack/day for 21.5 years (21.5 ttl pk-yrs) Types: Cigarettes Start date: 12/17/2002 Smokeless tobacco: Never Vaping Use Vaping status: Some Days Substances: Nicotine Devices: Disposable Substance Use Topics Alcohol use: Not Currently Drug use: Not Currently Family History Problem Relation Age of Onset Stroke Mother other (CHF) Mother COPD Mother other (rheumatiod arthritis) Father Leukemia Father COPD Maternal Grandmother Pancreatic Cancer Maternal Grandfather Ovarian cancer Paternal Grandmother Sister--Factor V Leiden. Paternal aunt--Breast cancer. ROS: Constitutional: No fever. No drenching night sweats. Normal appetite. No unexplained weight loss. No significant fatigue. Neuro: HEENT: No recent change in voice, vision or hearing. Resp: No cough, wheeze of hemoptysis. No shortness of breath at rest. No KAPLAN. CVS: No exertional chest pain, PND or orthopnea. No extremity swelling/edema. No symptoms of claudication. No painful or tender varicose veins. GI: No dysgeusia. No symptoms of stomatitis. No dysphagia or odynophagia. No reflux, n/v, change in bowel habits. No abdominal pain, bloating or distension. No black or bloody stools. : No (more content not included)...[facility]12-20-2024 History of Present illness Narrative* Paty Arciniega, - 05/31/2024 2:38 PM EST Hematologic problem(s): 1) Factor V Leiden. 2) Several VTE events. HPI: Patient is a 38-year-old female with past medical history as outlined below. DVT left leg diagnosed somewhere [id number]. Anticoagulated for several months. Multiple PEs. Anticoagulated for several months. Recurrent PEs. At that point she recalls having testing done that revealed factor V Leiden. Was advised indefinite anticoagulation. This was in 2019. Has no copay for apixaban. Endorses she is consistently taking it. Three children--2008, 2010 and 2016. All full term. At age 17, may have had a miscarriage at a very young gestational age--was told too early to have tested positive for . [facility]. On Depo-Provera since about 2015. Was admitted to [facility] in August of this year for TIA. Manifested as slurred speech while she was at work. MRI showed no evidence for acute infarct or enhancing intracranial mass. Very mild chronic white matter changes which may be secondary to chronic small vessel ischemic gliosis, other vascular etiologies or sequela of nonspecific demyelination or inflammation were observed. CTA of the head and neck demonstrated no evidence of intracranial aneurysm or vascular malformation. There was no large vessel occlusion or flow-limiting stenosis. Found record of a lower extremity duplex ultrasound at [facility] from 08/07/2020 showing partial compressibility with bright intraluminal echoes in the right popliteal vein consistent with chronic DVT. Possibility of an acute component cannot be excluded at that time. PMH: Chronic migraine headaches. Chronic neck and back pain. Heterozygous factor V Leiden. History of renal lithiasis. History of VTE. Smoking. Presents for ongoing hematologic management. Interim history: No complaints today. No TIA symptoms since first seen. No unusual bleeding or unexplained bruising. ALLERGIES Allergen Reactions Keflex [Cephalexin] Other: See Comments Achy, weak Percocet [Oxycodone* Other: See Comments Nose itch Current Outpatient Medications Medication Sig rimegepant (NURTEC ODT) 75 mg disintegrating tablet Take 1 tablet by mouth once daily as needed (Migraine). albuterol HFA (PROVENTIL HFA, VENTOLIN HFA) 90 mcg/actuation inhaler Inhale 2 Puffs as instructed every 6 hours as needed for wheezing/shortness of breath. medroxyPROGESTERone (DEPO-PROVERA) 150 mg/mL injection Inject 150 mg intramuscularly every 12 weeks. erenumab-aooe (AIMOVIG AUTOINJECTOR) 70 mg/mL auto-injector Inject 1 mL subcutaneously once every month. ELIQUIS 5 mg tab(s) Take 1 tablet by mouth every 12 hours. cetirizine (ZYRTEC) 10 mg tablet Take 10 mg by mouth once daily. cholecalciferol (VITAMIN D3) 1,000 unit tab tablet [...] montelukast (SINGULAIR) 10 mg tablet Take 1 tablet by mouth every afternoon. nystatin (MYCOSTATIN) powder APPLY POWDER TOPICALLY TWICE TO THREE TIMES DAILY TO GROIN AREA DIRECTED topiramate (TOPAMAX) 200 mg tablet Take 200 mg by mouth two times a day. haloperidol (HALDOL) 5 mg tablet Take 5 mg by mouth as needed (for anxiety). No current facility-administered medications for this visit. Social History Tobacco Use Smoking status: Every Day Current packs/day: 1.00 Average packs/day: 1 pack/day for 21.5 years (21.5 ttl pk-yrs) Types: Cigarettes Start date: 12/17/2002 Smokeless tobacco: Never Vaping Use Vaping status: Some Days Substances: Nicotine Devices: Disposable Substance Use Topics Alcohol use: Not Currently Drug use: Not Currently Family History Problem Relation Age of Onset Stroke Mother other (CHF) Mother COPD Mother other (rheumatiod arthritis) Father Leukemia Father COPD Maternal Grandmother Pancreatic Cancer Maternal Grandfather Ovarian cancer Paternal Grandmother Sister--Factor V Leiden. Paternal aunt--Breast cancer. ROS: Constitutional: No fever. No drenching night sweats. Normal appetite. No unexplained weight loss. No significant fatigue. Neuro: HEENT: No recent change in voice, vision or hearing. Resp: No cough, wheeze of hemoptysis. No shortness of breath at rest. No KAPLAN. CVS: No exertional chest pain, PND or orthopnea. No extremity swelling/edema. No symptoms of claudication. No painful or tender varicose veins. GI: No dysgeusia. No symptoms of stomatitis. No dysphagia or odynophagia. No reflux, n/v, change inbowel habits. No abdominal pain, bloating or distension. No black or bloody stools. : No dysuria or gross hematuria. No symptoms of bladder outlet obstruction. Endo: No hot flashes. No polyuria or polydipsia. No heat or cold intolerance. Musculoskeletal: Chronic joint pain. Derm: No current rash. No history of jaundice. No diffuse pruritis. Heme: See above. Psych: Normal mood. PHYSICAL EXAM: Vitals: Blood pressure 110/76, pulse 94, temperature 37.1 C (98.8 F), temperature source Temporal, weight 93.9 kg (207 lb), SpO2 99%. Well-appearing and in no acute distress. EYES: Sclerae are anicteric bilaterally. CARDIOVASCULAR: Rhythm is regular. ABDOMEN: The abdomen is nondistended. Extremities: Mild chronic appearing swelling both lower extremities. ASSESSMENT/PLAN: (Z86.718) History of DVT of lower extremity (primary encounter diagnosis) (D68.51) Factor V Leiden (HCC) (D68.62) Lupus anticoagulant disorder ([facility]) Assessment: -The patient is a 38-year-old female with a past medical history as outlined above. Several episodes of TIA and/or migraine type attacks. Evidently was diagnosed with heterozygous factor V Leiden. Has had 3 episodes of VTE. None during her pregnancies. On Depo-Provera. -Records from 01/2019--Lupus anticoagulant without ACL antibodies. Reviewed the diagnosis and meaning of this with her. -Again discussed smoking cessation. She is not yet psychologically motivated. Plan: -Continue apixaban 5 mg a day indefinitely. -Okay to continue Depo-Provera since it is a progestin only based product. -If D-Dimer normal, then hold apixaban and recheck LA panel. Portions of this documentation were copied and pasted from my previous office visit note dated 11/14/2023 in order to provide a cohesive continuity of the history. The note has been reviewed and editedand updated as necessary. I spent a total of 20 minutes on the date of the service which included preparing to see the patient, [id number] patient care, completing clinical documentation, counseling and educating the patient/family/caregiver, communicating with other HCPs (not separately reported), and communicating results to the patient/family/caregiver. Paty Arciniega DO documented in this encounterOhiohealth [facility]12-13-[facility]24 History of Present illness Narrative* Rhiannon Barajas RT(R) - 05/24/2024 11:40 AM EST Radiology Service Progress Note PATIENT NAME: Cody Santana DATE OF SERVICE: May 24, 2024 TIME: 11:37 AM PATIENT IDENTITY VERIFICATION COMPLETED USING TWO (2) IDENTIFIERS: Name and Date of confirmedby patient verbally. FALL SCREENING: Has the patient had 2 falls in the last year or 1 fall with injury or currently using an Ambulatory Assistive Device (Walker, Cane, Wheelchair, Crutches, etc.)? No PATIENT GENDER DATA: Female. status: : No status: NO. PATIENT RELEVANT IMPLANT DATA REVIEWED: Yes PATIENT PRESENTS WITH AN IMPLANTABLE OR ATTACHED WAREHOUSE PICKER: No RADIOLOGY DEPARTMENT: General X-ray: Exam(s) Completed: Upper Extremity X- Ray(s): Shoulder, AP / TRUE AP / AXILLARY right PERIPHERAL IV DATA: Not applicable SIGNED BY: RT Bridget(R) May 24, 2024 11:37 AM documented in this encounterOhiohealth [facility] City [facility]12-13-2024 NoteHNO ID: [id number] Author: RHIANNON BARAJAS RT(R) Service: ? Author Type: Compliance Examiner Type: Progress Notes Filed: 05/24/2024 11:55 Note Text: Radiology Service Progress Note PATIENT NAME: Cody Santana DATE OF SERVICE: May 24, 2024 TIME: 11:37 AM PATIENT IDENTITY VERIFICATION COMPLETED USING TWO (2) IDENTIFIERS: Name and Date of confirmed by patient verbally. FALL SCREENING: Has the patient had 2 falls in the last year or 1 fall with injury or currently using an Ambulatory Assistive Device (Walker, Cane, Wheelchair, Crutches, etc.)? No PATIENT GENDER DATA: Female. status: : No status: NO. PATIENT RELEVANT IMPLANT DATA REVIEWED: Yes PATIENT PRESENTS WITH AN IMPLANTABLE OR ATTACHED WAREHOUSE PICKER: No RADIOLOGY DEPARTMENT: General X-ray: Exam(s) Completed: Upper Extremity X-Ray(s): Shoulder, AP / TRUE AP / AXILLARY right PERIPHERAL IV DATA: Not applicable SIGNED BY: RT Bridget(Lisa) May 24, 2024 11:37 [facility]12-13-2024 NoteHNO ID: [id number] Author: LES MCKEON APRN.PLUCK SEPARATOR Service: ? Author Type: Nurse Practitioner Type: Progress Notes Filed: 05/24/2024 12:08 Note Text: Subjective HPI Nontoxic-appearing female presents urgent care chief complaint right shoulder pain. Duration of symptom 1 day. Associated symptoms right shoulder discomfort. States was walking outside when her daughter opened the door she ran into the corner of the metal door. Struck her right shoulder area. Presents today due to discomfort. OTC medications none. No decreased range of motion. Mild tenderness with palpation. Denies surgeries or fractures previously. Is not . [id number]. Past medical history prescription medications allergies reviewed. .Patient presents with: Shoulder Injury: Ran shoulder area into steel outside house door, LROM, pain,x 1 day History reviewed. No pertinent past medical history. PAST SURGICAL HISTORY Procedure Laterality Date REVISE MEDIAN N/CARPAL TUNNEL SURG Bilateral 2015 ALLERGIES Keflex [Cephalexin] and Percocet [Oxycodone-Acetaminophen] MEDICATIONS rimegepant (NURTEC ODT) 75 mg disintegrating tablet Take 1 tablet by mouth once daily as needed (Migraine). albuterol HFA (PROVENTIL HFA, VENTOLIN HFA) 90 mcg/actuation inhaler Inhale 2 Puffs as instructed every 6 hours as needed for wheezing/shortness of breath. medroxyPROGESTERone (DEPO-PROVERA) 150 mg/mL injection Inject 150 mg intramuscularly every 12 weeks. erenumab-aooe (AIMOVIG AUTOINJECTOR) 70 mg/mL auto-injector Inject 1 mL subcutaneously once every month. ELIQUIS 5 mg tab(s) Take 1 tablet [...] montelukast (SINGULAIR) 10 mg tablet Take 1 tablet by mouth every afternoon. nystatin (MYCOSTATIN) powder APPLY POWDER TOPICALLY TWICE TO THREE TIMES DAILY TO GROIN AREA DIRECTED topiramate (TOPAMAX) 200 mg tablet Take 200 mg by mouth two times a day. haloperidol (HALDOL) 5 mg tablet Take 5 mg by mouth as needed (for anxiety). FAMILY HISTORY Problem Relation Age of Onset Stroke Mother other (CHF) Mother COPD Mother other (rheumatiod arthritis) Father Leukemia Father COPD Maternal Grandmother Pancreatic Cancer Maternal Grandfather Ovarian cancer Paternal Grandmother Social History Tobacco Use Smoking status: Every Day Current packs/day: 1.00 Average packs/day: 1 pack/day for 21.4 years (21.4 ttl pk-yrs) Types: Cigarettes Start date: 12/17/2002 Smokeless tobacco: Never Vaping Use Vaping status: Some Days Substances: Nicotine Devices: Disposable Substance Use Topics Alcohol use: Not Currently Drug use: Not Currently BP 115/78 Pulse 74 Temp 36.7 ?C (98.1 ?F) Resp 16 Wt 95 kg (209 lb 7 oz) LMP (LMP Unknown) SpO2 100% BMI 37.10 kg/m? Review of Systems Constitutional: Negative for chills, fever and malaise/fatigue. Musculoskeletal: Positive for joint pain. Negative for back pain, falls, myalgias and neck pain. Neurological: Negative for dizziness, loss of consciousness, weakness and headaches. Objective Physical Exam Constitutional: General: She is not in acute distress. Appearance: She is not toxic-appearing. HENT: Head: Normocephalic. Nose: Nose normal. Eyes: Pupils: Pupils are equal, round, and reactive to light. Cardiovascular: Rate and Rhythm: Normal rate. Pulmonary: Effort: Pulmonary effort is normal. No respiratory distress. Musculoskeletal: Arms: Cervical back: Normal range of motion. Comments: Point tenderness highlighted area. Neurovascular intact. Full range of motion however does cause discomfort. No erythema edema. No crepitus. No deformities. No tenderness with palpation over humerus or clavicle or scapula. Skin: General: Skin is warm and dry. Neurological: General: No focal deficit present. Mental Status: She is alert. ASSESSMENT/PLAN: 1. Injury of right shoulder, initial encounter - ICD9: 959.2, ICD10: S49.91XA - XR SHOULDER GENERAL 3V OR MORE AP/TRUE AP/OTHER RIGHT IMPRESSION: No acute osseous abnormality. Diagnosed with right shoulder discomfort. X-ray negative. Treat as shoulder contusion. Ice and analgesics discussed. Patient was educated on supportive therapies. Patient will follow up with primary care provider as needed. Patient was instructed to immediately proceed to emergency room for any new, worsening, or symptoms lasting longer than anticipated. The patient's clinical presentation is otherwise unremarkable at this time. Based on exam and clinical finding, the patient is stable for discharge. Plan of (more content not included)...[facility]12-13-2024 History of Present illness Narrative* Les Mckeon APRN.PLUCK SEPARATOR - 05/24/2024 11:25 AM EST Images from the original note were not included. Subjective HPI Nontoxic-appearing female presents urgent care chief complaint right shoulder pain. Duration of symptom 1 day. Associated symptoms right shoulder discomfort. States was walking outside when her daughter opened the door she ran into the corner of the metal door. Struck her right shoulder area. Presents today due to discomfort. OTC medications none. No decreased range of motion. Mild tenderness with palpation. Denies surgeries or fractures previously. Is not . [id number]. Past medical history prescription medications allergies reviewed. .Patient presents with: Shoulder Injury: Ran shoulder area into steel outside house door, LROM, pain,x 1 day History reviewed. No pertinent past medical history. PAST SURGICAL HISTORY Procedure Laterality Date REVISE MEDIAN N/CARPAL TUNNEL SURG Bilateral 2016 ALLERGIES Keflex [Cephalexin] and Percocet [Oxycodone-Acetaminophen] MEDICATIONS rimegepant (NURTEC ODT) 75 mg disintegrating tablet Take 1 tablet by mouth once daily as needed (Migraine). albuterol HFA (PROVENTIL HFA, VENTOLIN HFA) 90 mcg/actuation inhaler Inhale 2 Puffs as instructed every 6 hours as needed for wheezing/shortness of breath. medroxyPROGESTERone (DEPO-PROVERA) 150 mg/mL injection Inject 150 mg intramuscularly every 12 weeks. erenumab-aooe (AIMOVIG AUTOINJECTOR) 70 mg/mL auto-injector Inject 1 mL subcutaneously once every month. ELIQUIS 5 mg tab(s) Take 1 tablet [...] montelukast (SINGULAIR) 10 mg tablet Take 1 tablet by mouth every afternoon. nystatin (MYCOSTATIN) powder APPLY POWDER TOPICALLY TWICE TO THREE TIMES DAILY TO GROIN AREA DIRECTED topiramate (TOPAMAX) 200 mg tablet Take 200 mg by mouth two times a day. haloperidol (HALDOL) 5 mg tablet Take 5 mg by mouth as needed (for anxiety). FAMILY HISTORY Problem Relation Age of Onset Stroke Mother other (CHF) Mother COPD Mother other (rheumatiod arthritis) Father Leukemia Father COPD Maternal Grandmother Pancreatic Cancer Maternal Grandfather Ovarian cancer Paternal Grandmother Social History Tobacco Use Smoking status: Every Day Current packs/day: 1.00 Average packs/day: 1 pack/day for 21.4 years (21.4 ttl pk-yrs) Types: Cigarettes Start date: 12/17/2002 Smokeless tobacco: Never Vaping Use Vaping status: Some Days Substances: Nicotine Devices: Disposable Substance Use Topics Alcohol use: Not Currently Drug use: Not Currently BP 115/78 Pulse 74 Temp 36.7 C (98.1 F) Resp 16 Wt 95 kg (209 lb 7 oz) LMP (LMP Unknown) SpO2 100% BMI 37.10 kg/m Review of Systems Constitutional: Negative for chills, fever and malaise/fatigue. Musculoskeletal: Positive for joint pain. Negative for back pain, falls, myalgias and neck pain. Neurological: Negative for dizziness, loss of consciousness, weakness and headaches. Objective Physical Exam Constitutional: General: She is not in acute distress. Appearance: She is not toxic-appearing. HENT: Head: Normocephalic. Nose: Nose normal. Eyes: Pupils: Pupils are equal, round, and reactive to light. Cardiovascular: Rate and Rhythm: Normal rate. Pulmonary: Effort: Pulmonary effort is normal. No respiratory distress. Musculoskeletal: Arms: Cervical back: Normal range of motion. Comments: Point tenderness highlighted area. Neurovascular intact. Full range of motion however does cause discomfort. No erythema edema. No crepitus. No deformities. No tenderness with palpation over humerus or clavicle or scapula. Skin: General: Skin is warm and dry. Neurological: General: No focal deficit present. Mental Status: She is alert. ASSESSMENT/PLAN: 1. Injury of right shoulder, initial encounter - ICD9: 959.2, ICD10: S49.91XA - XR SHOULDER GENERAL 3V OR MORE AP/TRUE AP/OTHER RIGHT IMPRESSION: No acute osseous abnormality. Diagnosed with right shoulder discomfort. X-ray negative. Treat as shoulder contusion. Ice and analgesics discussed. Patient was educated on supportive therapies. Patient will follow up with primary care provider as needed. Patient was instructed to immediately proceed to emergency room for any new, worsening, or symptoms lasting longer than anticipated. The patient's clinical presentation is otherwise unremarkable at this time. Based on exam and clinical finding, the patient is stable for discharge. Plan of care was discussed with patient. Patient verbalizes understanding and agrees to plan of care. This note was generated using [employer] software. It may contain errors in wording, punctuation, or spelling. Les Mckeon APRN.PLUCK SEPARATOR documented in this encounterOhio[facility] Telephone encounter Note * Telephone Encounter - Unruly Gonzalez RN - 04/30/2024 3:19 PM EST Cody Santana (Johnson: [id number]) - [id number] Nurtec 75MG dispersible tablets status: PA Response - Approved Created: April 29, 2024 [id number] Sent: April 30, 2024 [facility]11-19-2024 Miscellaneous Notes* Telephone Encounter - Unruly Gonzalez RN - 04/30/2024 3:19 PM EST Cody Santana (Johnson: [id number]) - [id number] Nurtec 75MG dispersible tablets status: PA Response - Approved Created: April 29, 2024 [id number] Sent: April 30, 2024 * Telephone Encounter - Unruly Gonzalez RN - 04/30/2024 11:25 AM EST Cody Santana (Johnson: [id number]) - [id number] Nurtec 75MG dispersible tablets status: PA Request Created: April 29, 2024 [id number] Sent: April 30, 2024 documented in this encounterOhio[facility]11-19-2024 Telephone encounter Note * Telephone Encounter - Unruly Gonzalez RN - 04/30/2024 11:25 AM EST Cody Santana (Johnson: [id number]) - [id number] Nurtec 75MG dispersible tablets status: PA Request Created: April 29, 2024 [id number] Sent: April 30, 2024 [facility]11-18-[facility] Telephone encounter Note* Telephone Encounter - Sam Guevara RN - 04/29/2024 11:38 AM EST Nurtec last ordered 09/14/2023, 16 tablets with 2 refills, start 09/14/23 end 12/13/23 [place], [place] ABDULKADIR: 10/02/[address] visit with Dr. Monge for Chronic Migraine PLAN: -Lifestyle medications as above -Aimovig 70 mg monthly for migraine prevention -Continue Nurtec as needed for migraine - to call sooner if any questions or concerns We will request precertification for Calcitonin Gene Related Peptide Monoclonal Antibody, Erenumab.This patient meets ICHD-3 criteria for treatment with CGRP MAB, She has chronic migraine The FDA has approved CGRP MAB for prevention of migraine. Specifically, the patient has 15 migraines per month, lasting 4 or more hours/d associated with photophobia, phonophobia, nausea for three or more months. Medication overuse headache has been ruled out. Patient is currently taking a Gepant (Nurtec) foracute treatment of her migraine. The following preventative medications have been tried for 3 or more months without benefit or discontinued due and/or side effects. Topiramate, lamotrigine, Effexor, Celexa The following abortive medications have been tried but require high frequency use which can lead toMedication Overuse Headache: Imitrex, Tylenol, and ibuprofen Kirby Monge MD Staff, Headache Medicine Routing prescription request to Dr. Monge for review and recommendations. [facility] Miscellaneous Notes* Telephone Encounter - Sam Guevara RN - 04/29/2024 11:38 AM EST Nurtec last ordered 09/14/2023, 16 tablets with 2 refills, start 09/14/23 end 12/13/23 [place], [place] ABDULKADIR: 10/02/[address] visit with Dr. Monge for Chronic Migraine PLAN: -Lifestyle medications as above -Aimovig 70 mg monthly for migraine prevention -Continue Nurtec as needed for migraine - to call sooner if any questions or concerns We will request precertification for Calcitonin Gene Related Peptide Monoclonal Antibody, Erenumab.This patient meets ICHD-3 criteria for treatment with CGRP MAB, She has chronic migraine The FDA has approved CGRP MAB for prevention of migraine. Specifically, the patient has 15 migraines per month, lasting 4 or more hours/d associated with photophobia, phonophobia, nausea for three or more months. Medication overuse headache has been ruled out. Patient is currently taking a Gepant (Nurtec) foracute treatment of her migraine. The following preventative medications have been tried for 3 or more months without benefit or discontinued due and/or side effects. Topiramate, lamotrigine, Effexor, Celexa The following abortive medications have been tried but require high frequency use which can lead toMedication Overuse Headache: Imitrex, Tylenol, and ibuprofen Kirby Monge MD Staff, Headache Medicine Routing prescription request to Dr. Monge for review and recommendations. documented in this encounterOhio[facility]10-31-2024 Telephone encounter Note * Telephone Encounter - Cody Riley MA - 04/11/2024 8:14 AM EDT Patient active eFolder. Last login 04/10. Patient notified via eFolder message. Cody Riley MA [facility]10-31-[facility] Miscellaneous Notes* Telephone Encounter - Cody Riley MA - 04/11/2024 8:14 AM EDT Patient active [employer]. Last login 04/10. Patient notified via eFolder message. Cody Riley MA * Telephone Encounter - Crissy Bell APRN.CNP - 04/11/2024 7:41 AM EDT Please notify knee xray negative. Continue with plan as discussed during visit. documented in this encounterOhio[facility]10-31-2024 Telephone encounter Note * Telephone Encounter - Crissy Bell APRN.CNP - 04/11/2024 7:41 AM EDT Please notify knee xray negative. Continue with plan as discussed during visit. [facility] Work Phone: [phone] History of Present illness Narrative* Rhiannon Barajas, (R) - 04/10/2024 7:50 PM EDT Radiology Service Progress Note PATIENT NAME: Cody Santana DATE OF SERVICE: April 10, 2024 TIME: 8:02 PM PATIENT IDENTITY VERIFICATION COMPLETED USING TWO (2) IDENTIFIERS: Name and Date of confirmedby patient verbally. FALL SCREENING: Has the patient had 2 falls in the last year or 1 fall with injury or currently using an Ambulatory Assistive Device (Walker, Cane, Wheelchair, Crutches, etc.)? No PATIENT GENDER DATA: Female. status: : No status: NO. PATIENT RELEVANT IMPLANT DATA REVIEWED: Yes PATIENT PRESENTS WITH AN IMPLANTABLE OR ATTACHED WAREHOUSE PICKER: No RADIOLOGY DEPARTMENT: General X-ray: Exam(s) Completed: Lower Extremity X- Ray(s): Knee, AP / Lat / Tunne / Merchant Left PERIPHERAL IV DATA: Not applicable SIGNED BY: RT Bridget(Lisa) April 10, 2024 8:02 PM documented in this encounterOhiohealth [facility]10-30-2024 NoteHNO ID: [id number] Author: RHIANNON BARAJAS RT(R) Service: ? Author Type: Compliance Examiner Type: Progress Notes Filed: 04/10/2024 20:02 Note Text: Radiology Service Progress Note PATIENT NAME: Cody Santana DATE OF SERVICE: April 10, 2024 TIME: 8:02 PM PATIENT IDENTITY VERIFICATION COMPLETED USING TWO (2) IDENTIFIERS: Name and Date of confirmed by patient verbally. FALL SCREENING: Has the patient had 2 falls in the last year or 1 fall with injury or currently using an Ambulatory Assistive Device (Walker, Cane, Wheelchair, Crutches, etc.)? No PATIENT GENDER DATA: Female. status: : No status: NO. PATIENT RELEVANT IMPLANT DATA REVIEWED: Yes PATIENT PRESENTS WITH AN IMPLANTABLE OR ATTACHED WAREHOUSE PICKER: No RADIOLOGY DEPARTMENT: General X-ray: Exam(s) Completed: Lower Extremity X-Ray(s): Knee, AP / Lat / Tunne / Merchant Left PERIPHERAL IV DATA: Not applicable SIGNED BY: RT Bridget(Lisa) April 10, 2024 8:02 [facility]10-30-2024 NoteHNO ID: [id number] Author: MOOMAW, JAY, HAIR TINTER.PLUCK SEPARATOR Service: ? Author Type: Nurse Practitioner Type: Progress Notes Filed: 04/10/2024 19:46 Note Text: This note was created using [employer]. Sarath Santana is a 38 year old female. HPI Yesterday pt hit her left patella against a door frame. Pain has worsened today. She complains of pain medial to the left patella. She otherwise denies any other injuries or health concerns. Review of Systems As above Objective BP 115/77 Pulse 79 Temp 37.2 ?C (98.9 ?F) Resp 18 Wt 96.5 kg (212 lb 11.9 oz) LMP (LMP Unknown) SpO2 100% BMI 37.69 kg/m? Physical Exam Vitals and nursing note reviewed. Constitutional: General: She is not in acute distress. Appearance: Normal appearance. She is not ill-appearing. HENT: Head: Normocephalic. Pulmonary: Effort: Pulmonary effort is normal. Musculoskeletal: General: Normal range of motion. Cervical back: Normal range of motion. Comments: Tenderness medial to the left patella with no obvious swelling or deformities noted. Skin: General: Skin is warm and dry. Neurological: General: No focal deficit present. Mental Status: She is alert. Psychiatric: Mood and Affect: Mood normal. Behavior: Behavior normal. Assessment and Plan ASSESSMENT/PLAN: 1. Acute pain of left knee - ICD9: 719.46, ICD10: M25.562 On evaluation I suspect that patient's knee pain is more consistent with a contusion of the knee however x-ray has been ordered. Due to time of day x-ray will not be read until after closing and patient will be notified of results. She will take Tylenol as needed for pain and slowly resume activities as tolerated. - XR KNEE GENERAL 4V AP BOTH/PA BOTH/LAT/MERC LEFT Jay Delgado APRN.[facility]PSum[facility]10-30-20[facility] History of Present illness Narrative* Jay Delgado APRN.CNP - 04/10/2024 7:41 PM EDT This note was created using [employer]. Sarath Santana is a 38 year old female. HPI Yesterday pt hit her left patella against a door frame. Pain has worsened today. She complains of pain medial to the left patella. She otherwise denies any other injuries or health concerns. Review of Systems As above Objective BP 115/77 Pulse 79 Temp 37.2 C (98.9 F) Resp 18 Wt 96.5 kg (212 lb 11.9 oz) LMP (LMP Unknown) SpO2 100% BMI 37.69 kg/m Physical Exam Vitals and nursing note reviewed. Constitutional: General: She is not in acute distress. Appearance: Normal appearance. She is not ill-appearing. HENT: Head: Normocephalic. Pulmonary: Effort: Pulmonary effort is normal. Musculoskeletal: General: Normal range of motion. Cervical back: Normal range of motion. Comments: Tenderness medial to the left patella with no obvious swelling or deformities noted. Skin: General: Skin is warm and dry. Neurological: General: No focal deficit present. Mental Status: She is alert. Psychiatric: Mood and Affect: Mood normal. Behavior: Behavior normal. Assessment and Plan ASSESSMENT/PLAN: 1. Acute pain of left knee - ICD9: 719.46, ICD10: M25.562 On evaluation I suspect that patient's knee pain is more consistent with a contusion of the knee however x-ray has been ordered. Due to time of day x-ray will not be read until after closing and patient will be notified of results. She will take Tylenol as needed for pain and slowly resume activities as tolerated. - XR KNEE GENERAL 4V AP BOTH/PA BOTH/LAT/MERC LEFT Jay Delgado APRN.KOLE documented in this encounterOhiohealth [facility]10-17-2024 History of Present illness Narrative* Rhiannon Barajas RT(R) - 03/28/2024 7:10 PM EDT Radiology Service Progress Note PATIENT NAME: Cody Santana DATE OF SERVICE: March 28, 2024 TIME: 7:07 PM PATIENT IDENTITY VERIFICATION COMPLETED USING TWO (2) IDENTIFIERS: Name and Date of confirmedby patient verbally. FALL SCREENING: Has the patient had 2 falls in the last year or 1 fall with injury or currently using an Ambulatory Assistive Device (Walker, Cane, Wheelchair, Crutches, etc.)? No PATIENT GENDER DATA: Female. status: : No status: NO. PATIENT RELEVANT IMPLANT DATA REVIEWED: Yes PATIENT PRESENTS WITH AN IMPLANTABLE OR ATTACHED WAREHOUSE PICKER: No RADIOLOGY DEPARTMENT: General X-ray: Exam(s) Completed: Chest X-Ray PERIPHERAL IV DATA: Not applicable SIGNED BY: RT Bridget(R) March 28, 2024 7:07 PM documented in this encounterOhiohealth [facility]10-17-2024 NoteHNO ID: [id number] Author: RHIANNON BARAJAS RT(R) Service: ? Author Type: Compliance Examiner Type: Progress Notes Filed: 03/28/2024 19:14 Note Text: Radiology Service Progress Note PATIENT NAME: Cody Santana DATE OF SERVICE: March 28, 2024 TIME: 7:07 PM PATIENT IDENTITY VERIFICATION COMPLETED USING TWO (2) IDENTIFIERS: Name and Date of confirmed by patient verbally. FALL SCREENING: Has the patient had 2 falls in the last year or 1 fall with injury or currently using an Ambulatory Assistive Device (Walker, Cane, Wheelchair, Crutches, etc.)? No PATIENT GENDER DATA: Female. status: : No status: NO. PATIENT RELEVANT IMPLANT DATA REVIEWED: Yes PATIENT PRESENTS WITH AN IMPLANTABLE OR ATTACHED WAREHOUSE PICKER: No RADIOLOGY DEPARTMENT: General X-ray: Exam(s) Completed: Chest X-Ray PERIPHERAL IV DATA: Not applicable SIGNED BY: EMA Gill) March 28, 2024 7:07 [facility]10-17-2024 NoteHNO ID: [id number] Author: NELI REDD APRN.PLUCK SEPARATOR Service: ? Author Type: Nurse Practitioner Type: Progress Notes Filed: 03/29/2024 09:22 Note Text: This note was created using [employer]. Subjective Cody Santana is a 38 year old female. 38 year old female with PMH presents for complaints of illness. Acute onset approximately 10 days ago +chest congestion +chest tightness +cough, sometimes will have sputum production But mostly dry Denies fever or chills Denies CP Denies hemoptysis +tobacco usage Of note, patient was seen here 03/19/24 Placed on Doxy and Prednisone , being treated for rhino sinusitis at that time No chest Presents today stating the sinus pressure and URI sx improved But the cough and chest tightness remain. 'can't sleep at night Endorses winded with activity Denies she has been diagnosed with asthma or COPD The history is provided by the patient. No foreign language teacher was used. Cough This is a new problem. The current episode started more than 1 week ago. The problem occurs constantly. The problem has been gradually worsening. Cough characteristics: goes between productive and non productive. There has been no fever. Associated symptoms include chills, shortness of breath and wheezing. Pertinent negatives include no chest pain, no sweats, no weight loss, no ear congestion, no ear pain, no headaches, no rhinorrhea, no sore throat, no myalgias and no eye redness. Treatments tried: steroids/albuterol inhaler/Doxy. The treatment provided no relief. She is a smoker. Her past medical history is significant for bronchitis. Her past medical history does not include pneumonia, bronchiectasis, COPD, emphysema or asthma. No past medical history on file. PAST SURGICAL HISTORY Procedure Laterality Date REVISE MEDIAN N/CARPAL TUNNEL SURG Bilateral 2016 ALLERGIES Keflex [Cephalexin] and Percocet [Oxycodone-Acetaminophen] MEDICATIONS albuterol HFA (PROVENTIL HFA, VENTOLIN HFA) 90 mcg/actuation inhaler Inhale 2 Puffs as instructed every 6 hours as needed for wheezing/shortness of breath. enoxaparin (LOVENOX) 100 mg/mL syrg Inject subcutaneously every 12 hours. medroxyPROGESTERone (DEPO-PROVERA) 150 mg/mL injection Inject 150 mg intramuscularly every 12 weeks. erenumab-aooe (AIMOVIG AUTOINJECTOR) 70 mg/mL auto-injector Inject 1 mL subcutaneously once every month. cetirizine (ZYRTEC) 10 mg tablet cholecalciferol (VITAMIN [...] montelukast (SINGULAIR) 10 mg tablet Take 1 tablet by mouth every afternoon. nystatin (MYCOSTATIN) powder APPLY POWDER TOPICALLY TWICE TO THREE TIMES DAILY TO GROIN AREA DIRECTED topiramate (TOPAMAX) 200 mg tablet Take 200 mg by mouth two times a day. haloperidol (HALDOL) 5 mg tablet Take 5 mg by mouth as needed (for anxiety). azithromycin (ZITHROMAX) 250 mg tablet Take 2 tablets by mouth once daily for 1 day, THEN 1 tablet once daily for 4 days. predniSONE (DELTASONE) 10 mg tablet Take 4 tabs daily for 3 days, then 2 tabs daily for 3 days, then 1 tab daily for 3 days with food. ELIQUIS 5 mg tab(s) Take 1 tablet by mouth every 12 hours. FAMILY HISTORY Problem Relation Age of Onset Stroke Mother other (CHF) Mother COPD Mother other (rheumatiod arthritis) Father Leukemia Father COPD Maternal Grandmother Pancreatic Cancer Maternal Grandfather Ovarian cancer Paternal Grandmother Social History Tobacco Use Smoking status: Every Day Current packs/day: 1.00 Average packs/day: 1 pack/day for 21.3 years (21.3 ttl pk-yrs) Types: Cigarettes Start date: 12/17/2002 Smokeless tobacco: Never Vaping Use Vaping status: Some Days Substances: Nicotine Devices: Disposable Substance Use Topics Alcohol use: Not Currently Drug use: Not Currently Review of Systems Constitutional: Positive for chills, fatigue and fever. Negative for weight loss. HENT: Positive for congestion. Negative for ear pain, rhinorrhea, sinus pressure, sinus pain and sore throat. Eyes: Negative for redness. Respiratory: Positive for cough, chest tightness, shortness of breath and wheezing. Cardiovascular: Negative for chest pain. Gastrointestinal: Negative for abdominal pain, diarrhea, nausea and vomiting. Endocrine: Negative for cold intolerance, heat intolerance and polydipsia. Musculoskeletal: Negative for myalgias. Skin: Negative for color change, pallor, rash and wound. Allergic/Immunologic: Negative for environmental allergies, food allergies and immunocompromised state. Neurological: Negative for headaches. Hematological: Negative for adenopathy. Does not bruise/bleed easily. Psychiatric/Be (more content not included)...[facility] 03-28-2024 History of Present illness Narrative* Sarah Neli, MARLEEN.PLUCK SEPARATOR - 03/28/2024 7:02 PM EDT This note was created using CloudPassageriter. Subjective Cody Santana is a 38 year old female. 38 year old female with PMH presents for complaints of illness. Acute onset approximately 10 days ago +chest congestion +chest tightness +cough, sometimes will have sputum production But mostly dry Denies fever or chills Denies CP Denies hemoptysis +tobacco usage Of note, patient was seen here 03/19/24 Placed on Doxy and Prednisone , being treated for rhino sinusitis at that time No chest Presents today stating the sinus pressure and URI sx improved But the cough and chest tightness remain. 'can't sleep at night Endorses winded with activity Denies she has been diagnosed with asthma or COPD The history is provided by the patient. No foreign language teacher was used. Cough This is a new problem. The current episode started more than 1 week ago. The problem occurs constantly. The problem has been gradually worsening. Cough characteristics: goes between productive and non productive. There has been no fever. Associated symptoms include chills, shortness of breath and wheezing. Pertinent negatives include no chest pain, no sweats, no weight loss, no ear congestion, noear pain, no headaches, no rhinorrhea, no sore throat, no myalgias and no eye redness. Treatments tried: steroids/albuterol inhaler/Doxy. The treatment provided no relief. She is a smoker. Her past medical history is significant for bronchitis. Her past medical history does not include pneumonia, bronchiectasis, COPD, emphysema or asthma. No past medical history on file. PAST SURGICAL HISTORY Procedure Laterality Date REVISE MEDIAN N/CARPAL TUNNEL SURG Bilateral 2016 ALLERGIES Keflex [Cephalexin] and Percocet [Oxycodone-Acetaminophen] MEDICATIONS albuterol HFA (PROVENTIL HFA, VENTOLIN HFA) 90 mcg/actuation inhaler Inhale 2 Puffs as instructed every 6 hours as needed for wheezing/shortness of breath. enoxaparin (LOVENOX) 100 mg/mL syrg Inject subcutaneously every 12 hours. medroxyPROGESTERone (DEPO-PROVERA) 150 mg/mL injection Inject 150 mg intramuscularly every 12 weeks. erenumab-aooe (AIMOVIG AUTOINJECTOR) 70 mg/mL auto-injector Inject 1 mL subcutaneously once every month. cetirizine (ZYRTEC) 10 mg tablet cholecalciferol (VITAMIN [...] montelukast (SINGULAIR) 10 mg tablet Take 1 tablet by mouth every afternoon. nystatin (MYCOSTATIN) powder APPLY POWDER TOPICALLY TWICE TO THREE TIMES DAILY TO GROIN AREA DIRECTED topiramate (TOPAMAX) 200 mg tablet Take 200 mg by mouth two times a day. haloperidol (HALDOL) 5 mg tablet Take 5 mg by mouth as needed (for anxiety). azithromycin (ZITHROMAX) 250 mg tablet Take 2 tablets by mouth once daily for 1 day, THEN 1 tablet once daily for 4 days. predniSONE (DELTASONE) 10 mg tablet Take 4 tabs daily for 3 days, then 2 tabs daily for 3 days, then 1 tab daily for 3 days with food. ELIQUIS 5 mg tab(s) Take 1 tablet by mouth every 12 hours. FAMILY HISTORY Problem Relation Age of Onset Stroke Mother other (CHF) Mother COPD Mother other (rheumatiod arthritis) Father Leukemia Father COPD Maternal Grandmother Pancreatic Cancer Maternal Grandfather Ovarian cancer Paternal Grandmother Social History Tobacco Use Smoking status: Every Day Current packs/day: 1.00 Average packs/day: 1 pack/day for 21.3 years (21.3 ttl pk-yrs) Types: Cigarettes Start date: 12/17/2002 Smokeless tobacco: Never Vaping Use Vaping status: Some Days Substances: Nicotine Devices: Disposable Substance Use Topics Alcohol use: Not Currently Drug use: Not Currently Review of Systems Constitutional: Positive for chills, fatigue and fever. Negative for weight loss. HENT: Positive for congestion. Negative for ear pain, rhinorrhea, sinus pressure, sinus pain and sore throat. Eyes: Negative for redness. Respiratory: Positive for cough, chest tightness, shortness of breath and wheezing. Cardiovascular: Negative for chest pain. Gastrointestinal: Negative for abdominal pain, diarrhea, nausea and vomiting. Endocrine: Negative for cold intolerance, heat intolerance and polydipsia. Musculoskeletal: Negative for myalgias. Skin: Negative for color change, pallor, rash and wound. Allergic/Immunologic: Negative for environmental allergies, food allergies and immunocompromised state. Neurological: Negative for headaches. Hematological: Negative for adenopathy. Does not bruise/bleed easily. Psychiatric/Behavioral: Negative for agitation and behavioral problems. Objective BP 101/68 Pulse 76 Temp 36.7 C (98 F) Wt 93 kg (205 lb 0.4 oz) LMP (LMP Unknown) SpO2 99% BMI 36.32 kg/m Physical Exam Vitals and nursing note reviewed. Constitutional: General: She is not in acute distress. Appearance: Normal appearance. She is normal weight. She is not ill-appearing, toxic-appearing or diaphoretic. HENT: Head: Normocephalic and atraumatic. Right Ear: Ear canal and external ear normal. Left Ear: Ear canal and external ear normal. Nose: Congestion present. No rhinorrhea. Mouth/Throat: Mouth: Mucous membranes are moist. Pharynx: Posterior oropharyngeal erythema present. No oropharyngeal exudate. Eyes: General: Right eye: No discharge. Left eye: No discharge. Extraocular Movements: Extraocular movements intact. Conjunctiva/sclera: Conjunctivae normal. Pupils: Pupils are equal, round, and reactive to light. Cardiovascular: Rate and Rhythm: Normal rate and regular rhythm. Pulses: Normal pulses. Heart sounds: Normal heart sounds. No murmur heard. No friction rub. Pulmonary: Effort: Pulmonary effort is normal. No respiratory distress. Breath sounds: No stridor. Wheezing and rhonchi present. No rales. Comments: Reduced air flow. No flail chest Harsh non productive cough noted Chest: Chest wall: No tenderness. Abdominal: General: Abdomen is flat. There is no distension. Palpations: Abdomen is soft. There is no mass. Tenderness: There is no abdominal tenderness. There is no right CVA tenderness, left CVA tenderness, guarding or rebound. Hernia: No hernia is present. Musculoskeletal: General: No swelling, tenderness, deformity or signs of injury. Normal range of motion. Cervical back: Normal range of motion and neck supple. No rigidity. Right lower leg: No edema. Left lower leg: No edema. Lymphadenopathy: Cervical: Cervical adenopathy present. Skin: General: Skin is warm and dry. Capillary Refill: Capillary refill takes less than 2 seconds. Coloration: Skin is not jaundiced or pale. Findings: No bruising, erythema, lesion or rash. Neurological: General: No focal deficit present. Mental Status: She is alert and oriented to person, place, and time. Cranial Nerves: No cranial nerve deficit. Sensory: No sensory deficit. Motor: No weakness. Coordination: Coordination normal. Gait: Gait normal. Psychiatric: Mood and Affect: Mood normal. Behavior: Behavior normal. Thought Content: Thought content normal. Judgment: Judgment normal. Assessment and Plan ASSESSMENT/PLAN: 1. Acute cough - ICD9: 786.2, ICD10: R05.1 Subacute Patient was placed on Doxy 03/19/24 for rhino sinusitis Those sx improved (No xray taken at time of eval) Presents today with continued and worsening cough No red flags - XR CHEST 2V FRONTAL/LAT-negative today in clinic - AZITHROMYCIN 250 MG TABLET - PREDNISONE 10 MG TABLET Will cover patient with Zithromax for an atypical However, discussed with patient that her history of smoking her sx could be that of undiagnosed asthma and or COPD Encouraged patient to follow up with PCP for additional work up Discussed red flags Neli Redd APRN.KOLE documented in this [facility] NoteHNO ID: [id number] Author: MICHELLE MARVIN APRN.KOLE Service: ? Author Type: Nurse Practitioner Type: Progress Notes Filed: 03/19/2024 09:31 Note Text: CC: Patient presents with: Cough: Cough, sinus, chest congestion and QU[place] x 2 weeks HPI: Cody Santana is a 38 year old female who presents to the office with complaint of chest congestion and cough, nonproductive for 2 weeks. Symptoms are worsening Associated symptoms includes headache. Denies fever, nausea, vomiting , and diarrhea. Treatments tried include nothing so far. with no relief of symptoms. Sick contacts: unknown. History of asthma, frequent episodes of bronchitis, chronic bronchitis, bronchiectasis or COPD: asthma and copd Smoker: No Seasonal/environmental allergies: No The ROS is otherwise negative. The patient's pmh, medications, allergies, and past visits are reviewed. PHYSICAL EXAM: BP 106/64 Pulse 96 Temp 36.8 ?C (98.3 ?F) (Tympanic) Resp 18 Wt 93.4 kg (205 lb 14.6 oz) SpO2 98% BMI 36.48 kg/m? General appearance: alert, cooperative, pleasant, in no acute distress Head: Normocephalic Eyes: EOM's intact, conjunctiva pink and moist, no icterus, sclera white, non-injected Ears: Right ear: External ear/canal- Normal, TM - clear with good landmarks. Left ear: External ear/canal- Normal, TM - clear with good landmarks Oropharynx:moist without lesions, No erythema, exudates or tonsillar hypertrophy. Neck: mild cervical adenopathy Heart: Negative. RRR without obvious murmur, gallop, or rubs. No ectopy. Lungs: clear to auscultation, without rales or wheeze, good air exchange No past medical history on file. PAST SURGICAL HISTORY Procedure Laterality Date REVISE MEDIAN N/CARPAL TUNNEL SURG Bilateral 2016 ALLERGIES Keflex [Cephalexin] and Percocet [Oxycodone-Acetaminophen] MEDICATIONS enoxaparin (LOVENOX) 100 mg/mL syrg Inject subcutaneously every 12 hours. medroxyPROGESTERone (DEPO-PROVERA) 150 mg/mL injection Inject 150 mg intramuscularly every 12 weeks. erenumab-aooe (AIMOVIG AUTOINJECTOR) 70 mg/mL auto-injector Inject 1 mL subcutaneously once every month. cetirizine (ZYRTEC) 10 mg tablet cholecalciferol (VITAMIN [...] montelukast (SINGULAIR) 10 mg tablet Take 1 tablet by mouth every afternoon. nystatin (MYCOSTATIN) powder APPLY POWDER TOPICALLY TWICE TO THREE TIMES DAILY TO GROIN AREA DIRECTED topiramate (TOPAMAX) 200 mg tablet Take 200 mg by mouth two times a day. haloperidol (HALDOL) 5 mg tablet Take 5 mg by mouth as needed (for anxiety). ELIQUIS 5 mg tab(s) Take 1 tablet by mouth every 12 hours. FAMILY HISTORY Problem Relation Age of Onset Stroke Mother other (CHF) Mother COPD Mother other (rheumatiod arthritis) Father Leukemia Father COPD Maternal Grandmother Pancreatic Cancer Maternal Grandfather Ovarian cancer Paternal Grandmother Social History Tobacco Use Smoking status: Every Day Current packs/day: 1.00 Average packs/day: 1 pack/day for 21.3 years (21.3 ttl pk-yrs) Types: Cigarettes Start date: 12/17/2002 Smokeless tobacco: Never Vaping Use Vaping status: Some Days Substances: Nicotine Devices: Disposable Substance Use Topics Alcohol use: Not Currently Drug use: Not Currently ASSESSMENT/PLAN: 1. Acute cough - ICD9: 786.2, ICD10: R05.1 (primary diagnosis) - PREDNISONE 10 MG TABLET - ALBUTEROL SULFATE HFA 90 MCG/ACTUATION AEROSOL INHALER 2. Rhinosinusitis - ICD9: 473.9, ICD10: J32.9 - DOXYCYCLINE HYCLATE 100 MG TABLET Prescription instructions reviewed with patient as applicable. Potential red flag symptoms discussed with the patient. Reviewed appropriate action plan to take if red flag symptoms occur. Patient agreeable to treatment plan. Michelle Marvin APRN.[facility]10-08-2024 History of Present illness Narrative* Michelle Marvin APRN.[facility] - 03/19/2024 9:22 AM EDT CC: Patient presents with: Cough: Cough, sinus, chest congestion and QUINTANA x 2 weeks HPI: Cody Santana is a 38 year old female who presents to the office with complaint of chest congestion and cough, nonproductive for 2 weeks. Symptoms are worsening Associated symptoms includes headache. Denies fever, nausea, vomiting , and diarrhea. Treatments tried include nothing so far. with no relief of symptoms. Sick contacts: unknown. History of asthma, frequent episodes of bronchitis, chronic bronchitis, bronchiectasis or COPD: asthma and copd Smoker: No Seasonal/environmental allergies: No The ROS is otherwise negative. The patient's pmh, medications, allergies, and past visits are reviewed. PHYSICAL EXAM: BP 106/64 Pulse 96 Temp 36.8 C (98.3 F) (Tympanic) Resp 18 Wt 93.4 kg (205 lb 14.6 oz) SpO2 98% BMI 36.48 kg/m General appearance: alert, cooperative, pleasant, in no acute distress Head: Normocephalic Eyes: EOM's intact, conjunctiva pink and moist, no icterus, sclera white, non-injected Ears: Right ear: External ear/canal- Normal, TM - clear with good landmarks. Left ear: External ear/canal- Normal, TM - clear with good landmarks Oropharynx:moist without lesions, No erythema, exudates or tonsillar hypertrophy. Neck: mild cervical adenopathy Heart: Negative. RRR without obvious murmur, gallop, or rubs. No ectopy. Lungs: clear to auscultation, without rales or wheeze, good air exchange No past medical history on file. PAST SURGICAL HISTORY Procedure Laterality Date REVISE MEDIAN N/CARPAL TUNNEL SURG Bilateral 2016 ALLERGIES Keflex [Cephalexin] and Percocet [Oxycodone-Acetaminophen] MEDICATIONS enoxaparin (LOVENOX) 100 mg/mL syrg Inject subcutaneously every 12 hours. medroxyPROGESTERone (DEPO-PROVERA) 150 mg/mL injection Inject 150 mg intramuscularly every 12 weeks. erenumab-aooe (AIMOVIG AUTOINJECTOR) 70 mg/mL auto-injector Inject 1 mL subcutaneously once every month. cetirizine (ZYRTEC) 10 mg tablet cholecalciferol (VITAMIN [...] montelukast (SINGULAIR) 10 mg tablet Take 1 tablet by mouth every afternoon. nystatin (MYCOSTATIN) powder APPLY POWDER TOPICALLY TWICE TO THREE TIMES DAILY TO GROIN AREA DIRECTED topiramate (TOPAMAX) 200 mg tablet Take 200 mg by mouth two times a day. haloperidol (HALDOL) 5 mg tablet Take 5 mg by mouth as needed (for anxiety). ELIQUIS 5 mg tab(s) Take 1 tablet by mouth every 12 hours. FAMILY HISTORY Problem Relation Age of Onset Stroke Mother other (CHF) Mother COPD Mother other (rheumatiod arthritis) Father Leukemia Father COPD Maternal Grandmother Pancreatic Cancer Maternal Grandfather Ovarian cancer Paternal Grandmother Social History Tobacco Use Smoking status: Every Day Current packs/day: 1.00 Average packs/day: 1 pack/day for 21.3 years (21.3 ttl pk-yrs) Types: Cigarettes Start date: 12/17/2002 Smokeless tobacco: Never Vaping Use Vaping status: Some Days Substances: Nicotine Devices: Disposable Substance Use Topics Alcohol use: Not Currently Drug use: Not Currently ASSESSMENT/PLAN: 1. Acute cough - ICD9: 786.2, ICD10: R05.1 (primary diagnosis) - PREDNISONE 10 MG TABLET - ALBUTEROL SULFATE HFA 90 MCG/ACTUATION AEROSOL INHALER 2. Rhinosinusitis - ICD9: 473.9, ICD10: J32.9 - DOXYCYCLINE HYCLATE 100 MG TABLET Prescription instructions reviewed with patient as applicable. Potential red flag symptoms discussed with the patient. Reviewed appropriate action plan to take if red flag symptoms occur. Patient agreeable to treatment plan. Michelle Marvin APRN.KOLE documented in this encounterOhio[facility]09-18-2024 Instructions* Patient Instructions* Charline Wooten APRN.CNP - 02/28/2024 11:25 AM EDT Images from the original note were not included. Regarding your visit with Nurse Practitioner Charline Wooten today at the [facility] we discussed the following: Impression: Transient confusion, right facial weakness, speech disturbance March 2023. MRI 2 months later without evidence of stroke. Possible TIA. Patient has had multiple VTE's, including DVT in December 2023, therefore suspect hypercoagulable state as etiology of possible TIA. She is seeing Hematology here Tobacco use disorder Recommendations: Consider in lab sleep study. Call or mychart message me if you would like to pursue this Continue lovenox/anticoagulation per Vascular Surgery and/or Hematology Discussed smoking cessation Follow up in 6 months -Regular follow up with primary care doctor for health maintenance -Assist ensuring blood pressure and cholesterol are at goal -Screen and manage diabetes -Lifestyle modification -- Establish goals -Diet -Regular Exercise as discussed -Establish weight goals with primary care doctor -Additional stroke reduction measures and stroke warning signs are listed below. Please do not hesitate to call if you have any questions Charline Wooten [facility] [place] Nurse Practitioner [place], [place] [address] Office: [phone] Appointments: [phone] Stroke Signs and Symptoms: *Stroke is a medical emergency. Know the warning signs of stroke: Sudden numbness or weakness of the face, arm or leg, especially on one side of the body Sudden confusion, trouble speaking, or understanding Sudden trouble seeing in one eye, or both eyes Sudden trouble walking, dizziness, loss of balance, or coordination Sudden severe headache with no known cause *If you, or someone with you, has one or more of these signs, don't delay! Immediately call [phone], orthe emergency medical services (EMS) number so an ambulance can be sent for you. Also, check the time so that you will know when the symptoms first appeared. It is very important to take immediate action, every second counts. Medical treatment may be available if action is taken early enough. ~~~~~~~~~~~~~~~~~~~~~~~~~~~~~~~~~~~~~~~~~~~~~~~~~~~~~~~~~~~~~~~~~~~~~~~~ General Guidelines to Help Reduce Risk of Recurrent Stroke Blood Pressure Management: Blood Pressure reduction is recommended for both prevention of recurrent stroke and prevention of other vascular events in persons who have had an ischemic stroke or TIA and are beyond the first 24 hours. Several lifestyle modifications have been associated with BP reduction and are a reasonable part of a comprehensive antihypertensive therapy. These modifications include: - salt restriction (less than 2 grams per day) - weight loss - consumption of a diet rich in fruits, vegetables, and low-fat dairy products - regular aerobic physical activity - limited alcohol consumption Goal: Prehypertension (BP less than 130/80 mm Hg): - Perform annual BP screening and lifestyle modifications Hypertension: (BP greater than or equal to 130/80 mm Hg) - Combine medications with above lifestyle modifications to reach your goal blood pressure as defined above. - Monitor your blood pressure at home regularly to ensure you are reaching your goals Diabetes Mellitus: - the goal for glycemic control should be individualized based on the risk for adverse events, patient characteristics and preferences, and, for most patients with diabetes, achieving a goal of HbA1c?7% is recommended to reduce risk for microvascular complications. - treatment of diabetes should include glucose-lowering medications with proven cardiovascular benefit to reduce the risk for future major adverse cardiovascular events (eg, stroke, heart attack) Cholesterol and Lipid Management - Statin (rosuvastatin or atorvastatin) therapy with intensive lipid-lowering effects is recommended to reduce risk of stroke and cardiovascular events among patients with ischemic stroke or TIA who have LDL cholesterol > 100 mg/dL, or evidence of atherosclerosis. - A goal of LDL cholesterol < 70 mg/dL for stroke or TIA patients on lipid lowering therapy is recommended. - Ezetimibe in combination with statin therapy to lower the LDL cholesterol < 70 mg/DL is recommended, if statin therapy alone is insufficient to attain this treatment target. - For patients with ischemic stroke at very high risk, already taking maximally tolerated statin and ezetimibe and still have an LDL cholesterol > 70 mg/dL, it is reasonable to treat with a proprotein convertase subtilisin/kexin type 9 (PCSK9) inhibitor to prevent atherosclerotic cardiovascular or cerebrovascular events. - In patients with ischemic stroke or TIA, with fasting triglycerides 135 to 499 mg/dL and LDL cholesterol of 41 to 100 mg/dL, on moderate- or high-intensity statin therapy, with HbA1c <10%, and with no history of pancreatitis, atrial fibrillation, or severe heart failure, treatment with icosapent ethyl (IPE) 2 g twice a day is reasonable to reduce risk of recurrent stroke Diet: - Reduced sodium and increased potassium intake; DASH-style diet rich in fruits and vegetables (https://www.nhlbi.nih.gov/education/bwag-hmmobt-vpjw) - Consider Mediterranean diet supplemented with nuts Smoking and Tobacco Use: - Strongly recommend smoking and tobacco use cessation to reduce risk of stroke. - Counseling, nicotine products, and oral smoking cessation medications are effective for helping smokers quit and can be provided if needed. Alcohol Consumption: - Patients with ischemic stroke or TIA who drink greater than or equal to 2 alcoholic drinks a day,should eliminate alcohol use or reduce their consumption of alcohol to less than equal to 1 alcoholdrink per day to reduce stroke risk Exercise - In patients with stroke or TIA who are capable of physical activity, engaging in at least moderate-intensity aerobic activity for a minimum of 10 minutes 4 times a week or vigorous-intensity aerobic activity for a minimum of 20 minutes twice a week is indicated to lower the risk of recurrent stroke - In patients with deficits after stroke that impair their ability to exercise, supervision of an exercise program by a health critical care specialist such as a physical therapist or cardiac rehabilitationprofessional, in addition to routine rehabilitation, can be beneficial for secondary stroke prevention - In individuals with stroke or TIA who sit for long periods of uninterrupted time during the day, it may be reasonable to recommend breaking up sedentary time with intervals as short as 3 minutes ofstanding or light exercise every 30 minutes for their cardiovascular health Adapted from the [place] [employer]/[place] [employer]: 2021 Guideline for the Prevention of Stroke in Patients With Stroke and Transient Ischemic Attack documented in this encounterOhio[facility]09-18-2024 History of Present illness Narrative* Charline Wooten APRN.CNP - 02/28/2024 11:00 AM EDT [facility] Established Visit Consultation is requested by: No referring provider defined for this encounter. PCP: To use this Smartlink, specify the provider ID whose address you want to display, e.g., .[email or web address] (where 1 is the provider ID). CEREBROVASCULAR HISTORY Cody Santana is a 38 year old female presenting for follow up. Initial visit with Dr. Marques on 10/25/23. 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 As per the patient, stroke was suspected and was advised MRI brain as out patient. However, the MRI brain that was done two months later was negative for stroke. No recurrence of stroke symptoms. She was referred to the stroke clinic for further evaluation and management. Patient has not been adherent with the Eliquis Review of system: Mild snoring but no witnessed apnea. As per her sleep study came back negativeX1 miscarriage. No trauma or whiplash. She used to follow up with the chiropractic clinic and last visit was one wear ago Social history: Chronic tobacco smoker. No history of ETOH or drug abuse. She is single Reason for Visit: TIA Date of Last Event: 03/15/2023 Antiplatelets/Anticoagulants: Enoxaparin sodium Residual Deficits: No residual deficits Current Living Situation: Home with minor children Current use of a mobility aid for walking/getting around: None Office Visit 02/28/24 -presents for hospital discharge follow up -denies any new stroke-like symptoms -history of vertigo, had some symptoms last night when she was laying down to go to bed. [place] like prior episodes. No issues getting up to walk to the bathroom. No nausea or vomiting -tired during the day -her boyfriend has later work schedule so she goes to sleep around 2AM and wakes 8:30-9AM. 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 Recommended 3 months lovenox then consideration of going to [facility]. [facility] vascular -unsure of next appt with Vascular -seeing Hematology in May, she has questions about the lupus anticoagulant -BP 110/73 -current smoker, 1.5ppd - over the summer was down to 1 cigrette per day but was under a lot of stress, DCF took her children away but she has them back now -DVT and PE in 2017 that was attributed to factor V Leiden mutation No past medical history on file. PAST SURGICAL HISTORY Procedure Laterality Date REVISE MEDIAN N/CARPAL TUNNEL SURG Bilateral 2015 FAMILY HISTORY Problem Relation Age of Onset Stroke Mother other (CHF) Mother COPD Mother other (rheumatiod arthritis) Father Leukemia Father COPD Maternal Grandmother Pancreatic Cancer Maternal Grandfather Ovarian cancer Paternal Grandmother Social History Tobacco Use Smoking status: Every Day Current packs/day: 1.00 Average packs/day: 1 pack/day for 21.2 years (21.2 ttl pk-yrs) Types: Cigarettes Start date: 12/17/2002 Smokeless tobacco: Never Vaping Use Vaping status: Some Days Substances: Nicotine Devices: Disposable Substance Use Topics Alcohol use: Not Currently Drug use: Not Currently MEDICATIONS Current Outpatient Medications Medication Sig enoxaparin (LOVENOX) 100 mg/mL syrg Inject subcutaneously every 12 hours. medroxyPROGESTERone (DEPO-PROVERA) 150 mg/mL injection Inject 150 mg intramuscularly every 12 weeks. erenumab-aooe (AIMOVIG AUTOINJECTOR) 70 mg/mL auto-injector Inject 1 mL subcutaneously once every month. cetirizine (ZYRTEC) 10 mg tablet cholecalciferol (VITAMIN [...] montelukast (SINGULAIR) 10 mg tablet Take 1 tablet by mouth every afternoon. nystatin (MYCOSTATIN) powder APPLY POWDER TOPICALLY TWICE TO THREE TIMES DAILY TO GROIN AREA DIRECTED topiramate (TOPAMAX) 200 mg tablet Take 200 mg by mouth two times a day. haloperidol (HALDOL) 5 mg tablet Take 5 mg by mouth as needed (for anxiety). ELIQUIS 5 mg tab(s) Take 1 tablet by mouth every 12 hours. No current facility-administered medications for this visit. ALLERGIES ALLERGIES Allergen Reactions Keflex [Cephalexin] Other: See Comments Achy, weak Percocet [Oxycodone* Other: See Comments Nose itch PHYSICAL EXAMINATION BP 110/73 Pulse 84 Ht 160 cm (5' 3) Wt 90.3 kg (199 lb) BMI 35.25 kg/m General: Well-developed, well-nourished, in no acute distress. HEENT: Normocephalic, atraumatic. Sclerae anicteric. Oropharynx clear. Neck: No JVD Heart: Skin well-perfused. Lungs: Breathing comfortably on room air. Extremities: No edema, cyanosis, or clubbing. Skin: No rash or ecchymoses. Neurological: Awake, alert, oriented to person, place, and time. Speech fluent, no dysarthria. Recall, comprehension intact. Good attention and insight into illness. Cranial Nerves: Extraocular movements intact without nystagmus. Visual bermudez full. Facial movements normal and symmetric. Motor: Normal bulk and tone. No pronator drift or tremor. Gait: Narrow-based, normal spaced and stable without assistance. LABS Cholesterol: No results found for: CHOL No results found for: LDL No results found for: HDL No results found for: TG Diabetes: No results found for: HBA1C IMAGING OSH CT brain, CTA head and neck 03/15/23 No acute abnormality, no significant stenosis or occlusion MRI brain 05/16/23 IMPRESSION: Scattered T2/FLAIR hyperintensities in the white matter, both the subcortical and periventricular white matter, which are nonspecific but may be due to mild chronic microvascular change/remote insult/sequela of migraines. No involvement of the corpus callosum or callosal septal interface, and no infratentorial lesions to indicate demyelination by imaging. However, consider correlation with clinical parameters. Otherwise, unremarkable MRI of the brain. Normal appearance of the bilateral seventh/8th nerve complexes and inner ear complexes, without abnormal enhancement.. Patient Entered Questionnaires PROMIS/NeuroQoL Score Percentiles 09/12/2023 Physical Health Physical Function Percentile 18* 09/12/2023 Mental Health NeuroQol Cognitive Function Percentile 10 09/12/2023 05/29/2023 PROMIS Global Health Scale Physical Health Percentile 15 22* Mental Health Percentile 13 19* Percentiles provide an indication of how a patient's score ranks in relation to the [place] general population. > 31st percentile is within normal limits or better * < 31st percentile is at least SD worse than population, which may be clinically relevant < 16th percentile is at least 1 SD worse than population and warrants attention Depression Screenin09/12/2023 PHQ-9 Score 14 Self-Harm Response Not at all PHQ-9 Scores: PHQ-9 Self-Harm (Item 9) Response: 0 - 9 No to Mild depression 0 - Not at all 10 - 14 Moderate depression 1 - Several Days > 15 Severe depression 2 - More than half the days 3 - Nearly every day 05/29/2023 Sleep Apnea Probability Score Probability (%) 16 (Sleep study not recommended) Stroke Mechanism and Scales Ischemic or TIA: Transient Ischemic Attack TIA Level of Certainty: Probable TOAST Mechanism (CCF-MODIFIED): Stroke of Other Determined Etiology Stroke of Other Determined Etiology: - Hypercoagulable state Modified Yoshi Score: Score: 0 NIH Stroke Scale: LOC: 0 LOC Questions: 0 LOC Commands: 0 LOC Normal Gaze: 0 Visual Bermudez: 0 Facial Palsy: 0 Motor Left Arm: 0 Motor Right Arm: 0 Motor Left Le Motor Right Le Limb Ataxia: 0 Sensory: 0 Language: 0 Dysarthria: 0 Extinction/Neglect: 0 Total Daily NIHSS: 0 IMPRESSION Transient confusion, right facial weakness, speech disturbance March 2023. MRI 2 months later without evidence of stroke. Possible TIA. Patient has had multiple VTE's, including DVT in December 2023, therefore suspect hypercoagulable state as etiology of possible TIA. She is seeing Hematology here Daytime sleepiness, snoring - suspect LINDA despite inconclusive home sleep test Tobacco use disorder PLAN Consider in lab sleep study. She will let me know if she wants to pursue this Continue lovenox/anticoagulation per Vascular Surgery and/or Hematology Discussed smoking cessation Follow up in 6 months Medical Decision Making: Medical Decision Making Level: 1 - N/A I spent a total of 38 minutes on the date of service which included preparing to see the patient, [id number] patient care, completing clinical documentation, obtaining and/or reviewing separately obtained history, performing a medically appropriate examination, counseling and educating the patient/family/caregiver, independently interpreting results (not separately reported), communicating results to the patient/family/caregiver, and care coordination (not separately reported) SIGNATURE Charline Hollaender, HAIR TINTER.PLUCK SEPARATOR CC No referring provider defined for this encounter. To use this Smartlink, specify the provider ID whose address you want to display, e.g., .PROVADDR[1(where 1 is the provider ID). documented in this encounterOhio[facility] NoteHNO ID: [id number] Author: CHARLINE WOOTEN APRN.CNP Service: ? Author Type: Nurse Practitioner Type: Progress Notes Filed: 02/28/2024 12:44 Note Text: [facility] Established Visit Consultation is requested by: No referring provider defined for this encounter. PCP: To use this Smartlink, specify the provider ID whose address you want to display, e.g., .PROVADDR[1 (where 1 is the provider ID). [facility] Cody Santana is a 38 year old female presenting for follow up. Initial visit with Dr. Marques on 10/25/23. 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 As per the patient, stroke was suspected and was advised MRI brain as out patient. However, the MRI brain that was done two months later was negative for stroke. No recurrence of stroke symptoms. She was referred to the stroke clinic for further evaluation and management. Patient has not been adherent with the Eliquis Review of system: Mild snoring but no witnessed apnea. As per her sleep study came back negativeX1 miscarriage. No trauma or whiplash. She used to follow up with the chiropractic clinic and last visit was one wear ago Social history: Chronic tobacco smoker. No history of ETOH or drug abuse. She is single Reason for Visit: TIA Date of Last Event: 03/15/2023 Antiplatelets/Anticoagulants: Enoxaparin sodium Residual Deficits: No residual deficits Current Living Situation: Home with minor children Current use of a mobility aid for walking/getting around: None Office Visit 02/28/24 -presents for hospital discharge follow up -denies any new stroke-like symptoms -history of vertigo, had some symptoms last night when she was laying down to go to bed. [place] like prior episodes. No issues getting up to walk to the bathroom. No nausea or vomiting -tired during the day -her boyfriend has later work schedule so she goes to sleep around 2AM and wakes 8:30-9AM. 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 Recommended 3 months lovenox then consideration of going to [facility]. [facility] vascular -unsure of next appt with Vascular -seeing Hematology in May, she has questions about the lupus anticoagulant -BP 110/73 -current smoker, 1.5ppd - over the summer was down to 1 cigrette per day but was under a lot of stress, DCF took her children away but she has them back now -DVT and PE in 2016 that was attributed to factor V Leiden mutation No past medical history on file. PAST SURGICAL HISTORY Procedure Laterality Date REVISE MEDIAN N/CARPAL TUNNEL SURG Bilateral 2015 FAMILY HISTORY Problem Relation Age of Onset Stroke Mother other (CHF) Mother COPD Mother other (rheumatiod arthritis) Father Leukemia Father COPD Maternal Grandmother Pancreatic Cancer Maternal Grandfather Ovarian cancer Paternal Grandmother Social History Tobacco Use Smoking status: Every Day Current packs/day: 1.00 Average packs/day: 1 pack/day for 21.2 years (21.2 ttl pk-yrs) Types: Cigarettes Start date: 12/17/2002 Smokeless tobacco: Never Vaping Use Vaping status: Some Days Substances: Nicotine Devices: Disposable Substance Use Topics Alcohol use: Not Currently Drug use: Not Currently MEDICATIONS Current Outpatient Medications Medication Sig enoxaparin (LOVENOX) 100 mg/mL syrg Inject subcutaneously every 12 hours. medroxyPROGESTERone (DEPO-PROVERA) 150 mg/mL injection Inject 150 mg intramuscularly every 12 weeks. erenumab-aooe (AIMOVIG AUTOINJECTOR) 70 mg/mL auto-injector Inject 1 mL subcutaneously once every month. cetirizine (ZYRTEC) 10 mg tablet cholecalciferol (VITAMIN [...] montelukast (SINGULAIR) 10 mg tablet Take 1 tablet by mouth every afternoon. nystatin (MYCOSTATIN) powder APPLY POWDER TOPICALLY TWICE TO THREE TIMES DAILY TO GROIN AREA DIRECTED topiramate (more content not included)...[facility]08-26-2024 Telephone encounter Note* Telephone Encounter - Victor Manuel Horn - 02/05/2024 10:58 AM EDT Scheduled with patient [facility] Work Phone: 1(698) 786-669508-26-2024 Miscellaneous Notes* Telephone Encounter - Victor Manuel Horn - 02/05/2024 10:58 AM EDT Scheduled with patient * Telephone Encounter - Victor Manuel Horn - 02/05/2024 10:48 AM EDT 1st attempt. Message left for patient to contact office to schedule- D dimer lab then office visit with Dr. Arciniega in 4 months * Telephone Encounter - Paty Arciniega DO - 02/04/2024 3:34 PM EDT I reviewed the office visit note from vascular surgery at [facility]. She had presented to the ER at [facility] on 01/07 with complete of pain behind the right knee. Ultrasound was read by radiology since it was after hours when she was there. They reported a positive finding of DVT in the popliteal vein. She followed up with vascular surgery on 01/16/2024. They advised 3 months of Lovenox then consideration of transition back to pill form of anticoagulation called Xarelto. Evidently they're going to repeat an ultrasound in 3 months as well. I would like to see her for follow-up in about 4 months. D-dimer at the time of OV. Paty Arciniega DO documented in this encounterOhiohealth [facility]08-26-2024 Telephone encounter Note * Telephone Encounter - Victor Manuel Horn - 02/05/2024 10:48 AM EDT 1st attempt. Message left for patient to contact office to schedule- D dimer lab then office visit with Dr. Arciniega in 4 months [facility]08-25-2024 Telephone encounter Note* Telephone Encounter - Paty Arciniega DO - 02/04/2024 3:34 PM EDT I reviewed the office visit note from vascular surgery at [facility]. She had presented to the ER at [facility] on 01/07 with complete of pain behind the right knee. Ultrasound was read by radiology since it was after hours when she was there. They reported a positive finding of DVT in the popliteal vein. She followed up with vascular surgery on 01/16/2024. They advised 3 months of Lovenox then consideration of transition back to pill form of anticoagulation called Xarelto. Evidently they're going to repeat an ultrasound in 3 months as well. I would like to see her for follow-up in about 4 months. D-dimer at the time of OV. Paty Arciniega DO [facility] Work Phone: 1(783) 187-694908-07-2024 Telephone encounter Note* Telephone Encounter - Mary Alice Saravia LPN - 01/17/2024 1:11 PM EDT Patient notified of all instructions. Vascular surgery note obtained and sent to scanning in [employer]. Mary Alice Saravia LPN [facility]08-07-2024 Miscellaneous Notes* Telephone Encounter - Mary Alice Saravia LPN - 01/17/2024 1:11 PM EDT Patient notified of all instructions. Vascular surgery note obtained and sent to scanning in [employer]. Mary Alice Saravia LPN * Telephone Encounter - Paty Arciniega DO - 01/17/2024 1:01 PM EDT I was not informed that she saw a vascular surgeon and I have no idea why she was changed to Lovenox. I recommend she continue Lovenox and follow-up with them. Perhaps I could get their office note? Paty Arciniega DO * Telephone Encounter - Mary Alice Saravia LPN - 01/17/2024 10:25 AM EDT [facility] put patient on Lovenox 90 mg BID beginning 01/08/2024. She has not been taking Eliquis since then. When should she stop Lovenox for labs needed? Mary Alice Saravia LPN * Telephone Encounter - Victor Manuel Horn - 01/17/2024 10:20 AM EDT Patient called in stating that she had taken eliquis morning of 01/07, while at hospital same day, they told her to stop eliquis and they gave her a shot. Patient unsure of name of injection. She is asking if this changes request from Dr. Arciniega. Please advise. * Telephone Encounter - Mary Alice Saravia LPN - 01/17/2024 8:55 AM EDT Message left for patient to contact office for medication instructions and to schedule a lab appointment for 01/22/2024. Mary Alice Saravia LPN * Telephone Encounter - Paty Arciniega DO - 01/17/2024 8:37 AM EDT Her D-dimer was normal. Hold apixaban the rest of this week and come in Monday morning for lab workfiled under this counter. Restart apixaban after lab work drawn. Paty Arciniega DO documented in this encounterOhiohealth [facility]08-07-2024 Telephone encounter Note * Telephone Encounter - Paty Arciniega DO - 01/17/2024 1:01 PM EDT I was not informed that she saw a vascular surgeon and I have no idea why she was changed to Lovenox. I recommend she continue Lovenox and follow-up with them. Perhaps I could get their office note? Paty Arciniega DO [facility]08-07-2024 Telephone encounter Note* Telephone Encounter - Mary Alice Saravia LPN - 01/17/2024 10:25 AM EDT [facility] put patient on Lovenox 90 mg BID beginning 01/08/2024. She has not been taking Eliquis since then. When should she stop Lovenox for labs needed? Mary Alice Saravia LPN [facility]08-07-2024 Telephone encounter Note* Telephone Encounter - Victor Manuel Horn - 01/17/2024 10:20 AM EDT Patient called in stating that she had taken eliquis morning of 01/07, while at hospital same day, they told her to stop eliquis and they gave her a shot. Patient unsure of name of injection. She is asking if this changes request from Dr. Arciniega. Please advise. [facility] Work Phone: 1(104) 338-421008-07-2024 Telephone encounter Note* Telephone Encounter - Mary Alice Saravia LPN - 01/17/2024 8:55 AM EDT Message left for patient to contact office for medication instructions and to schedule a lab appointment for 01/22/2024. Mary Alice Saravia LPN [facility]08-07-2024 Telephone encounter Note* Telephone Encounter - Paty Arciniega DO - 01/17/2024 8:37 AM EDT Her D-dimer was normal. Hold apixaban the rest of this week and come in Monday morning for lab workfiled under this counter. Restart apixaban after lab work drawn. Paty Arciniega DO [facility]08-05-2024 Telephone encounter Note* Telephone Encounter - Mary Alice Saravia LPN - 01/15/2024 10:58 AM EDT Patient scheduled today for D Dimer. Mary Alice Saravia LPN [facility]08-05-2024 Miscellaneous Notes* Telephone Encounter - Mary Alice Saravia LPN - 01/15/2024 10:58 AM EDT Patient scheduled today for D Dimer. Mary Alice Saravia LPN * Telephone Encounter - Mary Alice Saravia LPN - 01/12/2024 8:16 AM EDT Message left for patient to contact office. Mary Alice Saravia LPN * Telephone Encounter - Paty Arciniega DO - 01/11/2024 5:09 PM EDT Can let her know that we did receive previous records from [facility]. Not able to confirm that she has factor V Leiden according to those records but she did have findings of lupus anticoagulant. This does not mean she has lupus but it is a condition that puts her at higher risk for blood clot. This testing needs to be repeated, but first need D-dimer to see if okay to come off Eliquis for a few days to obtain testing. Lab for D-dimer filed. Continue Eliquis for now. Paty Arciniega DO documented in this encounterOhiohealth [facility]08-02-2024 Telephone encounter Note * Telephone Encounter - Mary Alice Saravia LPN - 01/12/2024 8:16 AM EDT Message left for patient to contact office. Mary Alice Saravia LPN [facility]08-01-2024 Telephone encounter Note* Telephone Encounter - Paty Arciniega DO - 01/11/2024 5:09 PM EDT Can let her know that we did receive previous records from [facility]. Not able to confirm that she has factor V Leiden according to those records but she did have findings of lupus anticoagulant. This does not mean she has lupus but it is a condition that puts her at higher risk for blood clot. This testing needs to be repeated, but first need D-dimer to see if okay to come off Eliquis for a few days to obtain testing. Lab for D-dimer filed. Continue Eliquis for now. Paty Arciniega DO [facility]06-04-2024 Nurse Note* Natalie Mancia LPN - 11/14/2023 1:49 PM EDT New patient, Per Elizabeth Newman : Refer to the hematology service to assess the indications of Eliquis andthe safety of Depo Provera hormonal injections in the background of DVT/PE and Factor V Leiden mutation . Natalie Mancia LPN [facility]06-04-2024 Nurse Note* Natalie Mancia LPN - 11/14/2023 1:49 PM EDT New patient, Per Elizabeth Newman : Refer to the hematology service to assess the indications of Eliquis andthe safety of Depo Provera hormonal injections in the background of DVT/PE and Factor V Leiden mutation . Natalie Mancia LPN documented in this encounterOhiohealth Grove City [facility]06-04-2024 History of Present illness Narrative* Paty Arciniega DO - 11/14/2023 1:47 PM EDT Patient referred by Dr. Elizabeth Marques for h/o factor V Leiden. The impression and plan will be communicated by way of the shared electronic record or faxed under separate cover letter. HPI: Patient is a 38-year-old female with past medical history as outlined below. DVT left leg diagnosed somewhere [id number]. Anticoagulated for several months. Multiple PEs. Anticoagulated for several months. Recurrent PEs. At that point she recalls having testing done that revealed factor V Leiden. Was advised indefinite anticoagulation. This was in 2019. Has no copay for apixaban. Endorses she is consistently taking it. Three children--2008, 2010 and 2016. All full term. At age 17, may have had a miscarriage at a very young gestational age--was told too early to have tested positive for . [facility]. On Depo-Provera since about 2015. Was admitted to [facility] in August of this year for TIA. Manifested as slurred speech while she was at work. MRI showed no evidence for acute infarct or enhancing intracranial mass. Very mild chronic white matter changes which may be secondary to chronic small vessel ischemic gliosis, other vascular etiologies or sequela of nonspecific demyelination or inflammation were observed. CTA of the head and neck demonstrated no evidence of intracranial aneurysm or vascular malformation. There was no large vessel occlusion or flow-limiting stenosis. Found record of a lower extremity duplex ultrasound at [facility] from 08/07/2020 showing partial compressibility with bright intraluminal echoes in the right popliteal vein consistent with chronic DVT. Possibility of an acute component cannot be excluded at that time. PMH: Chronic migraine headaches. Chronic neck and back pain. Heterozygous factor V Leiden. History of renal lithiasis. History of VTE. Smoking. ALLERGIES Allergen Reactions Keflex [Cephalexin] Other: See Comments Achy, weak Percocet [Oxycodone* Other: See Comments Nose itch Current Outpatient Medications Medication Sig medroxyPROGESTERone (DEPO-PROVERA) 150 mg/mL injection Inject 150 mg intramuscularly every 12 weeks. erenumab-aooe (AIMOVIG AUTOINJECTOR) 70 mg/mL auto-injector Inject 1 mL subcutaneously once every month. rimegepant (NURTEC ODT) 75 mg disintegrating tablet Take 1 tablet by mouth every other day in the morning. ELIQUIS 5 mg tab(s) Take 1 tablet [...] montelukast (SINGULAIR) 10 mg tablet Take 1 tablet by mouth every afternoon. nystatin (MYCOSTATIN) powder APPLY POWDER TOPICALLY TWICE TO THREE TIMES DAILY TO GROIN AREA DIRECTED topiramate (TOPAMAX) 200 mg tablet Take 200 mg by mouth two times a day. haloperidol (HALDOL) 5 mg tablet Take 5 mg by mouth as needed (for anxiety). No current facility-administered medications for this visit. Social History Tobacco Use Smoking status: Every Day Packs/day: 1.00 Years: 20.00 Additional pack years: 0.00 Total pack years: 20.00 Types: Cigarettes Start date: 12/17/2002 Smokeless tobacco: Never Vaping Use Vaping Use: Some days Substances: Nicotine Devices: Disposable Substance Use Topics Alcohol use: Not Currently Drug use: Not Currently Family History Problem Relation Age of Onset Stroke Mother other (CHF) Mother COPD Mother other (rheumatiod arthritis) Father Leukemia Father COPD Maternal Grandmother Pancreatic Cancer Maternal Grandfather Ovarian cancer Paternal Grandmother Sister--Factor V Leiden. Paternal aunt--Breast cancer. ROS: Constitutional: No fever. No drenching night sweats. Normal appetite. No unexplained weight loss. No significant fatigue. Neuro: HEENT: No recent change in voice, vision or hearing. Resp: No cough, wheeze of hemoptysis. No shortness of breath at rest. No KAPLAN. CVS: No exertional chest pain, PND or orthopnea. No extremity swelling/edema. No symptoms of claudication. No painful or tender varicose veins. GI: No dysgeusia. No symptoms of stomatitis. No dysphagia or odynophagia. No reflux, n/v, change inbowel habits. No abdominal pain, bloating or distension. No black or bloody stools. : No dysuria or gross hematuria. No symptoms of bladder outlet obstruction. Endo: No hot flashes. No polyuria or polydipsia. No heat or cold intolerance. Musculoskeletal: No bone, back, joint and muscular pain. Derm: No current rash. No history of jaundice. No diffuse pruritis. Heme: No unusual bleeding and unexplained bruising. Psych: Normal mood. PHYSICAL EXAM: Vitals: Blood pressure 104/67, pulse 92, temperature 36.4 C (97.6 F), height 160 cm (5' 3), sywaqy86 kg (194 lb), SpO2 98%. Well-appearing and in no acute distress. EYES: Sclerae are anicteric bilaterally. RESPIRATORY: Inspiratory breath sounds are of normal intensity in all bermudez. CARDIOVASCULAR: Rhythm is regular. ABDOMEN: The abdomen is nondistended. Extremities: Mild chronic appearing swelling both lower extremities. SKIN: Few scattered varicose veins lower extremities. [facility]. ASSESSMENT/PLAN: (D68.51) Factor V Leiden (HCC) (primary encounter diagnosis) (Z86.838) History of DVT of lower extremity Assessment: -The patient is a 38-year-old female with a past medical history as outlined above. Vague historian. Has had several episodes of TIA and/or migraine type attacks. Evidently was diagnosed with heterozygous factor V Leiden. Has had 3 episodes of VTE. None during her pregnancies. On Depo-Provera. Endorses compliance with apixaban. Plan: -Discussed smoking cessation. She is not yet psychologically motivated. -Continue apixaban 5 mg a day indefinitely. -Okay to continue Depo-Provera since it is a progestin only based product. -We will try to obtain records on previous anticoagulation testing. I spent a total of 50 minutes on the date of the service which included preparing to see the patient (reviewing records via [facility] electronic record), exfj-hj-squu patient care, completing clinical documentation, obtaining and/or reviewing separately obtained history, performing a medically appropriate examination, counseling and educating the patient/family/caregiver, ordering medications, tests, or procedures, communicating with other HCPs (not separately reported), and communicating results to the patient/family/caregiver. Paty Arciniega DO documented in this encounterOhio[facility] NoteHNO ID: [id number] Author: ELIZABETH MARQUES MD Service: ? Author Type: Physician Type: Progress Notes Filed: 11/13/2023 14:34 Note Text: [facility] Initial Visit Consultation is requested by: Janet Fernandez [address] [facility] [id number] PCP: To use this Smartlink, specify the provider ID whose address you want to display, e.g., .PROVADDR[1 (where 1 is the provider ID). 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 As per the patient, stroke was suspected and was advised MRI brain as out patient. However, the MRI brain that was done two months later was negative for stroke. No recurrence of stroke symptoms. She was referred to the stroke clinic for further evaluation and management. Patient has not been adherent with the Eliquis Review of system: Mild snoring but no witnessed apnea. As per her sleep study came back negativeX1 miscarriage. No trauma or whiplash. She used to follow up with the chiropractic clinic and last visit was one wear ago Social history: Chronic tobacco smoker. No history of ETOH or drug abuse. She is single Medications: Eliquis Depo Provera hormonal injection for the last 9 years Stroke Event Information Do you have any planned upcoming surgeries or dental procedures? No RN completing documentation No past medical history on file. No past surgical history on file. No family history on file. Social History Tobacco Use Smoking status: Every Day Packs/day: 1.00 Years: 20.00 Additional pack years: 0.00 Total pack years: 20.00 Types: Cigarettes Start date: 12/17/2002 Smokeless tobacco: Never Vaping Use Vaping Use: Some days Substances: Nicotine Devices: Disposable Substance Use Topics Alcohol use: Not Currently Drug use: Not Currently MEDICATIONS Current Outpatient Medications Medication Sig erenumab-aooe (AIMOVIG AUTOINJECTOR) 70 mg/mL auto-injector Inject 1 mL subcutaneously once every month. rimegepant (NURTEC ODT) 75 mg disintegrating tablet Take 1 tablet by mouth every other day in the morning. ELIQUIS 5 mg tab(s) Take 1 tablet [...] montelukast (SINGULAIR) 10 mg tablet Take 1 tablet by mouth every afternoon. nystatin (MYCOSTATIN) powder APPLY POWDER TOPICALLY TWICE TO THREE TIMES DAILY TO GROIN AREA DIRECTED topiramate (TOPAMAX) 200 mg tablet haloperidol (HALDOL) 5 mg tablet Take 5 mg by mouth as needed (for anxiety). No current facility-administered medications for this visit. ALLERGIES ALLERGIES Allergen Reactions Keflex [Cephalexin] Other: See Comments Achy, weak Percocet [Oxycodone* Other: See Comments Nose itch PHYSICAL EXAMINATION BP 109/73 Pulse 85 Ht 160 cm (5' 3) Wt 90.7 kg (200 lb) BMI 35.43 kg/m? General: Overweight Well-developed, well-nourished, in no acute distress. HEENT: Normocephalic, atraumatic Extremities: No edema, cyanosis, or clubbing. No calf tenderness Skin: No rash or ecchymoses. Neurological: Awake, alert, oriented to person, place, and time. Speech fluent, no dysarthria. Naming, repetition, comprehension, intact. Good attention and insight into illness. Cranial Nerves: Extraocular movements intact without nystagmus. Visual bermudez full. Facial sensation and movements normal and symmetric. Tongue midline. Trapezius strength 5/5 bilaterally. Motor: Normal bulk and tone. Strength 5/5 throughout. No pronator drift or tremor. Sensation: Decreased to light touch on the left side Coordination: Rapid alternating movements symmetric bilaterally. [id number]-[id number], without dysmetria bilaterally. Gait: Narrow-based, normal spaced and stable without assistance LABS Cholesterol: No results found for: CHOL No results found for: LDL No results found for: HDL No results found for: TG Diabetes: No results found for: HBA1C IMAGING MRI brain: mild bilateral white matter changes Patient Entered Questionnaires PROMIS/NeuroQoL Score Percentiles 09/12/2023 Physical Health Physical Function Percentile 18* 09/12/2023 Mental Health NeuroQol Cognitive Function Percentile 10 09/12/2023 05/29/2023 PROMIS Global Health Scale Physical (more content not included)...[facility]06-03-2024 History of Present illness Narrative* Elizabeth Marques MD - 11/13/2023 1:57 PM EDT [facility] Initial Visit Consultation is requested by: Janet Fernandez [address] [facility] [address] PCP: To use this Smartlink, specify the provider ID whose address you want to display, e.g., .PROVADDR[1 (where 1 is the provider ID). CEREBROVASCULAR HISTORY 38 year old female, with known history of migraine headache, Bipolar disorder, depression, Nicotineabuse, Factor V mutation maintained on Eliquis, DVT and PE in 2016 that was attributed to factor V Leiden mutation, cervical disc disease status post fusion one year ago, , who, in March 2023, developed acute change in mental status, speech difficulty and right facial weakness and was admitted [facility]. As per the patient, stroke was suspected and was advised MRI brain as out patient. However, the MRI brain that was done two months later was negative for stroke. No recurrence of stroke symptoms. She was referred to the stroke clinic for further evaluation and management. Patient has not been adherent with the GuestDriven Review of system: Mild snoring but no witnessed apnea. As per her sleep study came back negativeX1 miscarriage. No trauma or whiplash. She used to follow up with the chiropractic clinic and last visit was one wear ago Social history: Chronic tobacco smoker. No history of ETOH or drug abuse. She is single Medications: Eliquis Depo Provera hormonal injection for the last 9 years Stroke Event Information Do you have any planned upcoming surgeries or dental procedures? No RN completing documentation No past medical history on file. No past surgical history on file. No family history on file. Social History Tobacco Use Smoking status: Every Day Packs/day: 1.00 Years: 20.00 Additional pack years: 0.00 Total pack years: 20.00 Types: Cigarettes Start date: 12/17/2002 Smokeless tobacco: Never Vaping Use Vaping Use: Some days Substances: Nicotine Devices: Disposable Substance Use Topics Alcohol use: Not Currently Drug use: Not Currently MEDICATIONS Current Outpatient Medications Medication Sig erenumab-aooe (AIMOVIG AUTOINJECTOR) 70 mg/mL auto-injector Inject 1 mL subcutaneously once every month. rimegepant (NURTEC ODT) 75 mg disintegrating tablet Take 1 tablet by mouth every other day in the morning. ELIQUIS 5 mg tab(s) Take 1 tablet [...] montelukast (SINGULAIR) 10 mg tablet Take 1 tablet by mouth every afternoon. nystatin (MYCOSTATIN) powder APPLY POWDER TOPICALLY TWICE TO THREE TIMES DAILY TO GROIN AREA DIRECTED topiramate (TOPAMAX) 200 mg tablet haloperidol (HALDOL) 5 mg tablet Take 5 mg by mouth as needed (for anxiety). No current facility-administered medications for this visit. ALLERGIES ALLERGIES Allergen Reactions Keflex [Cephalexin] Other: See Comments Achy, weak Percocet [Oxycodone* Other: See Comments Nose itch PHYSICAL EXAMINATION BP 109/73 Pulse 85 Ht 160 cm (5' 3) Wt 90.7 kg (200 lb) BMI 35.43 kg/m General: Overweight Well-developed, well-nourished, in no acute distress. HEENT: Normocephalic, atraumatic Extremities: No edema, cyanosis, or clubbing. No calf tenderness Skin: No rash or ecchymoses. Neurological: Awake, alert, oriented to person, place, and time. Speech fluent, no dysarthria. Naming, repetition, comprehension, intact. Good attention and insight into illness. Cranial Nerves: Extraocular movements intact without nystagmus. Visual bermudez full. Facial sensation and movements normal and symmetric. Tongue midline. Trapezius strength 5/5 bilaterally. Motor: Normal bulk and tone. Strength 5/5 throughout. No pronator drift or tremor. Sensation: Decreased to light touch on the left side Coordination: Rapid alternating movements symmetric bilaterally. Gliwgu-uh-yjeq, without dysmetria bilaterally. Gait: Narrow-based, normal spaced and stable without assistance LABS Cholesterol: No results found for: CHOL No results found for: LDL No results found for: HDL No results found for: TG Diabetes: No results found for: HBA1C IMAGING MRI brain: mild bilateral white matter changes Patient Entered Questionnaires PROMIS/NeuroQoL Score Percentiles 09/12/2023 Physical Health Physical Function Percentile 18* 09/12/2023 Mental Health NeuroQol Cognitive Function Percentile 10 09/12/2023 05/29/2023 PROMIS Global Health Scale Physical Health Percentile 15 22* Mental Health Percentile 13 19* Percentiles provide an indication of how a patient's score ranks in relation to the [place] general population. > 31st percentile is within normal limits or better * < 31st percentile is at least SD worse than population, which may be clinically relevant < 16th percentile is at least 1 SD worse than population and warrants attention Depression Screenin09/12/2023 PHQ-9 Score 14 Self-Harm Response Not at all PHQ-9 Scores: PHQ-9 Self-Harm (Item 9) Response: 0 - 9 No to Mild depression 0 - Not at all 10 - 14 Moderate depression 1 - Several Days > 15 Severe depression 2 - More than half the days 3 - Nearly every day 05/29/2023 Sleep Apnea Probability Score Probability (%) 16 (Sleep study not recommended) Stroke Mechanism and Scales IMPRESSION Acute altered mental status, speech difficulty, and right facial weakness that occurred in March 2023. At that time, she was admitted to [facility] where stroke was suspected. The MRI brain, however, came back negative for stroke. Subjective residual deficits include memory impairment and unsteadiness. Neurological examination showed decrease sensation on the left side. No recurrence stroke symptoms. Unclear if her symptoms and deficits represent small stroke that is beyond the resolution of MRI. She has been maintained on Eliquis for DVT and PE in 2017 that was attributed to factor VLeiden mutation. Yet, she has not been adherent to the medication DVT and PE in 2017 that was attributed to factor V Leiden mutation maintained on Eliquis Nicotine abuse Migraine headache, Bipolar disorder, depression, cervical disc disease status post mutation PLAN Advised adherence with Eliquis Patient signed the release of information form. Once I review the records, I will decide about further investigation and management Advised to quit tobacco smoking Advised weight loss Sleep hygiene Refer to the hematology service to assess the indications of Eliquis and the safety of Depo Proverahormonal injections in the background of DVT/PE and Factor V Leiden mutation Instructed on all signs and symptoms of stroke Advised to avoid any neck manipulation Follow up in the stroke clinic in four months Medical Decision Making: Medical Decision Making Level: 1 - N/A I spent a total of 70 minutes on the date of service which included preparing to see the patient, cwyg-cj-rekz patient care, completing clinical documentation, obtaining and/or reviewing separately obtained history, performing a medically appropriate examination, counseling and educating the patient/family/caregiver, ordering medications, tests, or procedures, independently interpreting results (not separately reported), and communicating results to the patient/family/caregiver SIGNATURE Elizabeth Marques MD Janet Fernandez [address] [facility] [id number] To use this Smartlink, specify the provider ID whose address you want to display, e.g., .PROVADDR[1(where 1 is the provider ID). documented in this encounterOhio[facility]05-16-2024 Telephone encounter Note * Telephone Encounter - Paty Arciniega DO - 10/26/2023 3:51 PM EDT Has been on apixaban for some time. Consult not urgent. Next new patient appointment with me or . [facility] Work Phone: 1(527) 901-164305-16-2024 Miscellaneous Notes* Telephone Encounter - Paty Arciniega DO - 10/26/2023 3:51 PM EDT Has been on apixaban for some time. Consult not urgent. Next new patient appointment with me or . * Telephone Encounter - Danitza Lucero - 10/26/2023 8:10 AM EDT Patient is being referred to Hematology. DX: DVT, PE, Factor V L[place]en Insurance: [employer] Referred by: Elizabeth Marques Please review and advise documented in this encounterOhio[facility]05-16-2024 Telephone encounter Note * Telephone Encounter - Danitza Lucero - 10/26/2023 8:10 AM EDT Patient is being referred to Hematology. DX: DVT, PE, Factor V Lieden Insurance: [employer] Referred by: Elizabeth Marques Please review and advise [facility]05-15-2024 Telephone encounter Note* Telephone Encounter - Shanda Parikh - 10/25/2023 10:56 AM EDT Submitted through portal Consult to Hematology/Oncology #[id number], to be scheduled in [facility] [place] [facility]05-15-2024 Miscellaneous Notes* Telephone Encounter - Shanda Parikh - 10/25/2023 10:56 AM EDT Submitted through portal Consult to Hematology/Oncology #[id number], to be scheduled in [facility] [place] documented in this encounterOhiohealth [facility]05-10-2024 Telephone encounter Note * Telephone Encounter - Aye Young RN - 10/20/2023 11:21 AM EDT Approved on October 04 Approved for quantity limit 1 injection per 30 days Authorization Expiration Date: 03/31/2024 Drug Aimovig 70MG/ML auto-injectors [facility] cloud logo Form [place] Medicaid [place] kSARIA Electronic PA Form (2016 [facility]) [facility]05-10-2024 Miscellaneous Notes* Telephone Encounter - Aye Young RN - 10/20/2023 11:21 AM EDT Approved on October 04 Approved for quantity limit 1 injection per 30 days Authorization Expiration Date: 03/31/2024 Drug Aimovig 70MG/ML auto-injectors [facility] cloud logo Form [place] Medicaid [facility] (2016 [employer]) documented in this encounterOhiohealth [facility]05-03-2024 History of Present illness Narrative* Negra Potts - 10/13/2023 9:56 AM EDT Sleep Study Check-In Documentation Date: October 13, 2023 Name: Cody Santana Comments: HST was returned in working order without all sleep questionnaires Patient was not reached. A voicemail was left with patient to call back to complete questionnaires. Negra Potts * Nidia Strauss - 10/10/2023 10:31 AM EDT LVM AND SENT [facility] A.B DEVICE * Braulio Bailey - 10/02/2023 5:40 PM EDT [employer]# [id number] +GPS , Date shipped out: 10/01 SENT FEDEX DELIVERY - FEDEX RETURN Tracking mailout: [phone] Tracking return: [phone] * García Maxwell III, PhD - 09/25/2023 1:42 PM EDT September 25, 2023 Standing PSG Orders signed in the last 90 days None Future PSG Orders signed in the last 90 days Ordered Auth. provider HOME SLEEP APNEA TEST (HSAT) [[id number]] 09/14/23 Janet Fernandez APRN.PLUCK SEPARATOR Assoc. diagnoses: Snoring [R06.83], Other fatigue [R53.83] Q: Indications: A: Obstructive sleep apnea Q: STOP-BANG conditions - Select All That Apply: A: BMI > 35 kg/m2 A2: TIREDNESS, fatigue or sleepiness during the day A3: SNORING that is loud or disruptive Q: Current use of supplemental oxygen during sleep period?: A: No All Prior Sleep Studies (past 365 days) 09/14/2023 11:50 Sleep Studies HOME SLEEP APNEA TEST (HSAT) HOME SLEEP APNEA TEST (HSAT) Order Status: Ordered, Future Expires: 09/13/24 BMI Readings from Last 2 Encounters: 09/14/23 : 35.43 kg/m 04/13/23 : 37.88 kg/m No past medical history on file. The medical record was reviewed to determine if the proposed sleep study conforms to the AASM Practice Parameters for the Indications for Polysomnography and Related Procedures, or if the sleep studyis indicated for other reasons. Indications for study: LINDA suspected without comorbid medical or sleep disorders Sleep study to be performed: Home Sleep Apnea Test (HSAT) Special instructions: None-follow laboratory protocol [facility] Staff Note: I have read the above protocol, edited as needed, and agree to the plan. García Maxwell III, PhD 1:53 PM, 09/25/2023 * Mita Arellano - 09/25/2023 11:38 AM EDT September 25, 2023 An order has been received for Home Sleep Apnea Test (HSAT) from Janet Samuels, MARLEEN.huber SHARIF. [facility] Staff. Visit prep complete. Comments :No The sleep study is scheduled for 10/02. Insurance: Payor: [employer]ICA[employer] / Plan: [facility] MEDICAID / Product Type: Medicaid / Payer/Plan Subscr Sex Relation Sub. Ins. ID Effective Group Num 1. [place] MEDIC* CODY SANTANA 1985 Female Self [id number] 07/[birth year]/22 [address] Mita Arellano documented in this encounterOhiohealth [facility]04-22-2024 History of Present illness Narrative* Kirby Monge MD - 10/02/2023 10:09 AM EDT Images from the original note were not included. Headache Clinic DISTANCE HEALTH VISIT This is a virtual visit using HIPAA compliant video platform. All issues as below were discussed and addressed but no physical exam was performed unless allowed by visual confirmation. If it was feltthat the patient should be evaluated in clinic then they were directed there. Patient and/or parent(s) verbally consented to visit. I have communicated my name and active licensure. The patient's identity and physical location wereverified at the time of this visit. Either the patient or their legal vendor representatives has been informed of the risks and benefits of -- and alternatives to -- treatment through a remote evaluation andconsents to proceed with the evaluation remotely. Date: October 02, 2023 Patient Name: Cody Santana Referring physician: Janet Fernandez [address] [facility] [id number] Reason for Evaluation: Headaches Consultation requested by Janet Fernandez CNP for an opinion regarding headaches. My final recommendations will be communicated back to the requesting physician by way of shared Medical record orletter to requesting physician via US mail. HPI: The patient is a 37-year-old female being seen for headaches. She has a medical history notable foranxiety, bipolar disorder, depression, factor V Leiden, cervical stenosis status post fusion, carpal tunnel syndrome status post release, and osteoporosis. She has had migraines for about 3 to 4 years. They seem to have worsened after she had multiple episodes of left facial weakness and confusion that are well- described in Janet's note from 04/13/2023. She was hospitalized at [facility] and told that she had a mini stroke. She currently gets about 15 headache days per month. Intensity averages about 5 out of 10 but can be higher. Headaches are mainly right-sided and frontal or periorbital. She describes throbbing pain with accompanying severe photophobia. She does endorse mild photophobia and occasional nausea. Headaches are not positional. She cannot identify any triggers. She has no history of significant head orneck trauma. She does not get auras. She used to have significant neck pain but it improved considerably after her cervical fusion. Untreated her QUINTANA will last 2-3 days. She has a long history of anxiety and depression as noted. She follows with both psychiatry and psychology. When she saw Janet she was referred for an EEG which was normal and an MRI of the brain which showed white matter hyperintensities most suggestive of microvascular ischemia versus migraine sequelae. At her last visit she also reported sleep problems so she was referred for HSAT and the supplies are supposed to arrive tomorrow. Current prophylactics: Topamax 200mg BID, lamotrigine 200mg once daily, Celexa 40mg daily Prophylactics tried: Effexor (no benefit) Current abortives: Nurtec (some benefit) Abortives tried: Haldol (as needed), Imitrex (Worked well, taken off due to TIA), OTCs. 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 ELIQUIS 5 mg tab(s) Take 1 tablet [...] montelukast (SINGULAIR) 10 mg tablet Take 1 tablet by mouth every afternoon. nystatin (MYCOSTATIN) powder APPLY POWDER TOPICALLY TWICE TO THREE TIMES DAILY TO GROIN AREA DIRECTED topiramate (TOPAMAX) 200 mg tablet haloperidol (HALDOL) 5 mg tablet Take 5 mg by mouth as needed (for anxiety). No current facility-administered medications on file prior to visit. MEDICAL HISTORY Anxiety Depression Bipolar disorder Osteoporosis Arthritis SURGICAL HISTORY Cervical fusion FAMILY HISTORY Daughter with headaches ALLERGIES ALLERGIES Allergen Reactions Keflex [Cephalexin] Other: See Comments Achy, weak Percocet [Oxycodone* Other: See Comments Nose itch REVIEW OF SYSTEMS: A 10-point review of systems was obtained and is negative except as per HPI above. KP review: 09/12/2023 09/12/2023 10/01/2023 Depression Screening PHQ-2 Score 1 PHQ-9 Score 14 JUAN MANUEL-2 Total Score 2 3 JUAN MANUEL-7 Total Score 8 12 09/12/2023 10/01/2023 JUAN MANUEL - 2/7 SCORES JUAN MANUEL-2 Score 2 3 JUAN MANUEL-7 Score 8 12 No data to display No data to display No data to display OBJECTIVE PHYSICAL EXAM: There were no vitals taken for this visit. Awake, alert and oriented. Speech fluent. Full range of neck movement. Full range of EOM. No nystagmus. Face grossly symmetric. Tongue midline. Full range of movement of extremities. ASSESSMENT: 37-year-old female with a history of anxiety, bipolar disorder, depression, factor V Leiden, cervical stenosis status post fusion, carpal tunnel syndrome status post release, osteoporosis, and possible TIA presented with headaches more suggestive of chronic migraines without aura. I discussed the diagnosis with her. I am not convinced that her episodes were in fact TIAs but given the fact that I never personally witnessed them I do not at this point have a good alternative explanation. If she is surrounded by other people when another episode occurs it may be a good idea to have somebody video it. Otherwise, it would be reasonable to continue avoiding triptans as a precaution. We will continue Nurtec as an abortive. I emphasized the critical importance of lifestyle changes including limiting caffeine, good sleep hygiene, and improving hydration. She is scheduled for an HSAT and if she does indeed have obstructive sleep apnea this will require management as part of her headache treatment strategy. She needs a better prophylactic treatment. She has never tried antihypertensives but her blood pressure is fairly low at baseline so these will be contraindicated. Otherwise she has triedmultiple prophylactic medications as above. I recommend Aimovig monthly. Patient is in agreement. Follow-up in 5 months or earlier if needed. All questions were answered. PLAN: -Lifestyle medications as above -Aimovig 70 mg monthly for migraine prevention -Continue Nurtec as needed for migraine - to call sooner if any questions or concerns We will request precertification for Calcitonin Gene Related Peptide Monoclonal Antibody, Erenumab.This patient meets ICHD-3 criteria for treatment with CGRP MAB, She has chronic migraine The FDA has approved CGRP MAB for prevention of migraine. Specifically, the patient has 15 migraines per month, lasting 4 or more hours/d associated with photophobia, phonophobia, nausea for three or more months. Medication overuse headache has been ruled out. Patient is currently taking a Gepant (Nurtec) foracute treatment of her migraine. The following preventative medications have been tried for 3 or more months without benefit or discontinued due and/or side effects. Topiramate, lamotrigine, Effexor, Celexa The following abortive medications have been tried but require high frequency use which can lead toMedication Overuse Headache: Imitrex, Tylenol, and ibuprofen I spent 45 minutes in this visit, with more than 50% of the time devoted to patient counseling and coordination of care. My impression and recommendations were discussed at length with the patient (and family members, ifpresent). The patient and family (if present) voiced understanding to my recommendations. All questions were answered. The patient was provided with a detailed after visit summary highlighting my impression and recommendations (if seen in outpatient setting). Kirby Monge MD Staff, [facility] [place] Board Certified in Adult Neurology by [employer]el[employer] Board Certified in Headache Medicine by [facility] Clinical Cell Installer of Neurology with [facility] [address] [place] [address]/ [place] [id number] Office: [phone] Portions of this note have been composed using voice recognition and may contain carpentry specialist errors The results of this consult will be sent to the referring provider by either electronic medical record or standard mail. CC: Referring Physician: Janet Fernandez [address] [place], [place] [id number] PCP: To use this Smartlink, specify the provider ID whose address you want to display, e.g., .PROVADDR[1(where 1 is the provider ID). documented in this encounterOhio[facility]04-04-[facility]24 History of Present illness Narrative* Darchiquita JanetMARLEEN lopez.PLUCK SEPARATOR - 09/14/2023 11:30 AM EDT Images from the original note were not included. [facility] [place] Follow-up Visit Follow-up note September 14, 2023 HPI: Ms. Santana presents today for a follow-up visit. Per her previous visit on 05/31/23: R29.810 Facial weakness (primary encounter diagnosis) R20.0 Facial numbness R44.9 Sensory deficit, right R41.3 Memory change G43.909 Migraine without status migrainosus, not intractable, unspecified migraine type R29.898 Arm weakness Comment: Pt previously seen for left facial weakness. She reports that in February she was at workwhen she experienced an episode of L facial weakness, difficulty with speech, and abnormal behavior. She also reports feeling generally weak and shaky but denies convulsions, loss of control of B/B, t ongue/cheek bite. Workup was completed at [facility] including MRI Brain, CTA head/neck, and echocardiogram. She reports additional lab work was completed as well, however, these results are not available and she reports that she has misplaced documentation. At time of previous appointment she reported persistent L facial weakness as well as numbness and tingling to her lips and RUE. Exam was notable for asymmetry to L mouth as well as sensory deficit to R V2 and therefore MRI brain was repeated with contrast to evaluate for facial nerve enhancement. MRI noting multiple areas of chronic microvascular ischemia which were reported to be nonspecific. Additionally EEG was completed to evaluate for seizure and testing was unremarkable. She continues to take Eliquis Lamictal and Topamax. At time of appointment today she reports increased numbness to RUE as well as weakness to BUE. On further discussion she reports past cervical surgery though uncertain of level of intervention. She also reports past history of surgery for CTS. Given history as well as ongoing symptoms, will order EMG/NCV of BUE to assess for any ongoing changes. Additionally, records not received from [facility], however, she reports she has not worn a vehicle monitor technician and Zio will be ordered at this time. Will again attempt to obtain records from hospitalization. Lastly, at time of previous appointment concern that symptoms were possibly secondary to migraine. She is currently taking TPX 200mg which she reports is used for not only migraine prevention but also by psychiatry. At this time will place consult to headache clinic for further evaluation and management of headaches. In interim, she reports that she continues to utilize Imitrex as needed for migraines and given concern for TIA, would recommend discontinuing at this time. Instead we will begin Nurtec 75mg at onset of migraine (not to be taken more than 1x p/day). Has appointment scheduled with the headache clinic for the of this month. Tried to move up this appointment but couldn't. Taking Nurtec. Only takes the edge off headaches. Not taking Imitrex. Feels memory and confusion are worse. Worse when she has a headache. Went to the ED at [facility] since last visit. Was at work and felt weird. [place] like she was spacing out. Went on break and felt more spacey. Speech was off; garbled. States she had generalized weakness in both legs. No focal n/t. No loss of vision, double vision. No syncope or LOC. Per [facility] ED on 08/29/23: States she has been lightheaded and dizzy. Feels extremely tired. She does snore. Has woken herself up snoring. No choking or gasping. QUINTANA in AM upon waking. Has had a mild headache over the past four days. Has never had sleep study. Has had low potassium every time she is in the ED. Drinks energy drinks often; Monster (4-5 16 oz cans). Tired all the time. Does not want medication that may affect mood. Difficulty pronouncing words. Dexterity is off. No n/t in palms of hands but doesn't feel palms well. Past hx of CTS. Difficulty focusing. Alcohol: Hx of ETOH use; 4 years [...] montelukast (SINGULAIR) 10 mg tablet Take 1 tablet by mouth every afternoon. nystatin (MYCOSTATIN) powder APPLY POWDER TOPICALLY TWICE TO THREE TIMES DAILY TO GROIN AREA DIRECTED topiramate (TOPAMAX) 200 mg tablet haloperidol (HALDOL) 5 mg tablet Take 5 mg by mouth as needed (for anxiety). No current facility-administered medications on file prior to visit. Social History Tobacco Use Smoking status: Every Day Packs/day: 1.00 Years: 20.00 Additional pack years: 0.00 Total pack years: 20.00 Types: Cigarettes Start date: 12/17/2002 Smokeless tobacco: Never Vaping Use Vaping Use: Some days Substances: Nicotine Devices: Disposable Substance Use Topics Alcohol use: Not Currently Drug use: Not Currently ALLERGIES No Known Allergies Review of Systems: Constitutional: denies fever, weight [...] + memory loss, + headache Physical Exam: 09/14/23 1133 BP: 110/68 BP Site: Left Arm BP Position: Sitting BP Cuff Size: Large Adult Pulse: 90 SpO2: 98% Weight: 90.7 kg (200 lb) Height: 160 cm (5' 3) Patient is alert and in no distress. Dress is appropriate. Mood is appropriate Breathing appears regular and unstressed Neurologic examination: Cognitively intact. No deficits. No formal MOCA performed. CN: Pupils equal and reactive to light, extraocular movements intact with no nystagmus, face is symmetric with no facial droop, facial sensation decreased in R V2 and LV3, hearing intact bilaterally,symmetric evaluation of the soft palate, tongue is midline with no deviation, shoulder shrug is symmetric. Motor exam shows 5/5 strength symmetric through the upper and lower extremities in all groups tested. Sensory decreased to light touch in all RUE. Temperature sensation decreased in RUE and RLE. Vibratory sensation is intact and symmetric all extremities. Deep tendon reflexes are symmetric at the biceps, brachioradialis, triceps, patella, and achilles bilaterally. Coordination: No dysmetria on finger to nose. No tremors noted. No drift seen. Gait normal in stance and pattern. Labs/studies: MRI Brain 08/30/23: CTA 08/30/23: EMG 07/07/23: Electrodiagnostic examination of the right upper limb reveals: 1. No definite evidence of right median mononeuropathy at or distal to the wrist (ie: carpal tunnel syndrome). The right median orthodromic response is slightly prolonged, but this may be residual slowing from prior carpal tunnel release surgery. 2. No definite evidence of a right cervical (including C5-C8) motor radiculopathy, although an intraspinal canal lesion affecting only sensory nerve root fibers cannot be excluded based on this study. 3. Screening studies for ulnar and radial mononeuropathies did not reveal any definite abnormalities. 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 MQ: [id number] Contrast: 20 mL Dotarem IV COMPARISON: None. RESULT: Acute Change: There is no evidence of restricted diffusion to suggest an acute infarct. Mass Lesion/ Mass Effect: No evidence of an intracranial mass or extra-axial fluid collection. No abnormal parenchymal or leptomeningeal enhancement is noted following contrast administration. No significant mass effect. Chronic Change: There are scattered T2/FLAIR hyperintensities in the white matter, both the subcortical and periventricular white matter. However, no involvement of the corpus callosum or callosal septal interface, and no infratentorial lesions. Parenchyma: No significant volume loss for age. The brain parenchyma is otherwise within normal limits of signal intensity and morphology. Specifically, the brainstem is normal in appearance. There is no evidence of a mass in the region of either IAC or elsewhere in the posterior fossa. No abnormal enhancement is noted in the basilar cisterns, along the course of the 7/8 cranial nerve complexes, or in the region of the inner ear complexes. No abnormal parenchymal or leptomeningeal enhancement is noted following gadolinium administration. Inner ear structures appear to be within normal limits on the high resolution axial T2 SPACE sequence. Ventricles: Normal caliber and morphology. Skull Base: Hypothalamic and pituitary region are grossly normal. Craniocervical junction is normal. No significant marrow replacement process. Vasculature: Major intracranial arterial structures, and dural venous sinuses show typical flow void, suggesting patency by spin echo criteria. Other: The visualized paranasal sinuses and mastoid air cells are clear. The orbits and extracranial soft tissues are unremarkable. Impression: IMPRESSION: Scattered T2/FLAIR hyperintensities in the white matter, both the subcortical and periventricular white matter, which are nonspecific but may be due to mild chronic microvascular change/remote insult/sequela of migraines. No involvement of the corpus callosum or callosal septal interface, and no infratentorial lesions to indicate demyelination by imaging. However, consider correlation with clinical parameters. Otherwise, unremarkable MRI of the brain. Normal appearance of the bilateral seventh/8th nerve complexes and inner ear complexes, without abnormal enhancement.. Transcribed Using Voice Recognition Transcribe Date/Time: May 16 2023 5:02P Dictated by: CRISSY HARDEN MD This examination was interpreted and the report reviewed and electronically signed by: CRISSY HARDEN MD on May 16 2023 5:10PM EST EEG 04/20/23: Impression: This EEG is within normal limits. No epileptiform discharges or EEG seizures were seen during this recording. Assessment/Plan: R29.810 Facial weakness (primary encounter diagnosis) R20.0 Facial numbness R44.9 Sensory deficit, right R41.3 Memory change G43.009 Migraine without aura and without status migrainosus, not intractable R47.9 Speech disturbance, unspecified type Comment: Pt previously seen for left facial weakness associated with difficulty with speech and abnormal behavior. She denied associated convulsions, loss of control of B/B, tongue/cheek bite. Previous workup completed through [facility] included MRI brain, CTA head/neck, and echocardiogram. At time of follow up, sensory deficit persisted and MRI of brain WO/W was ordered. MRI noting multiple areas of chronic microvascular were reported to be nonspecific (hx of substance use, smoker, head injury) EEG also unremarkable. Additional testing has included EMG/NCV of BUE given ongoing RUE numbness with results noting past CTS surgery but no ongoing process. She has also since completed with report of SVT x3 (she reports increased energy drink consumption) but no evidence of A-fib. She did have a hospitalization since her previous appointment at which time she felt generally weakin both legs and noted slurred/garbled speech. Workup was completed through [facility] at that time including CT brain, CTA head/neck, and MRI brain. She was diagnosed with a TIA on discharge. Records were requested and test results/ED note above. Of note, she is currently taking Eliquis (hx of factor V and VTE) and BP appears to be within normal range at time of admission as well as at appointment today. BLE weakness would not be consistent with TIA, however, given slurred speech and history of factor V as well as hx of TIA, will place referral to cerebrovascular clinic for further evaluation. Additional concern at time of previous appointment that symptoms were secondary to migraine. She iscurrently taking Tpx 200mg BID as prescribed by psychiatry. She was also transitioned from Imitrex to Nurtec given concern for TIA. She reports minimal relief of symptoms with use of Nurtec on an as needed basis. Consult was previously placed to the headache clinic for further management of headaches and she reports upcoming appointment in September. Today, she reports headaches have been bothersome and present in AM upon waking. On further discussion she reports daytime fatigue and intake of 4-5 energy drinks p/day. Concern that both energy drink intake (high caffeine) and sleep disorder (see below) may contribute to QUINTANA and would recommend decreasing consumption. Discussed options regarding medications. Will avoid use of BB given hx of depression and will avoid use of TCA or other antidepressant, again given psychological hx. Could consider use of gabapentin, however, given possible side effects on mood she would like to avoid use of medication (also noting she is currently on Tpx and Lamictal). At this time will attempt to utilize Nurtec as a daily preventative medication and will increase to once daily every other day. However, would ask that she keep appointment with QUINTANA clinic foralternative medication recommendations. R53.83 Other fatigue R06.83 Snoring Comment: Pt reports snoring, daytime fatigue, and AM headaches. Concern for possible LINDA and she isagreeable to complete HSAT for further evaluation. Office Visit on 09/14/23 HOME SLEEP APNEA TEST (HSAT) Janet Fernandez APRN.CNP I spent a total of 40 minutes on the date of the service which included preparing to see the patient, [id number] patient care, completing clinical documentation, obtaining and/or reviewing separately obtained history, performing a medically appropriate examination, counseling and educating the pat ient/family/caregiver, and ordering medications, tests, or procedures. documented in this encounterOhio[facility]03-[facility]24 Hospital Discharge instructions Additional Instructions Date of Discharge: 08/30/23[facility] Work Phone: [phone]) 175-113803-20-2024 History and physical note Author Bridgett Ponce [facility] August 30, 2023 12:59am Note Date/Time August 29, 2023 11: 07pm [facility] Medical Records Department [facility] [place] [address] H&P Exam - Hospitalist 08/29/23 2306 MR#: [id number] Acct: [id number] Name: CODY SANTANA Rep #:[id number] : 1985 37 From: Bridgett Ponce MD PCP: NP. Neli Tripp NP-Radha Status: ADM MARGY Location: [place] [address] HPI - General General Date of Admission: 08/29/23 Date of Service: 08/29/23 Chief Complaint: Transient slurred speech. HPI Narrative The patient is a 37 y/o F w/ PMHx: GERD, Allergic rhinitis, Chronic anemia, Chronic migraines, Obesity, Chronic neck and back pain with associated radiculopathy, Hx VTE (DVT, PE) with Factor V Leiden mutation/heterozygous on chronic eliquis regimen, Tobacco use, Anxiety and Depression/Suspected Bipolar disorder who presents to the [facility] ED on 08/29/23 with history of generalized fatigue and malaise reportedly not feeling well at work with onset at approximately 1900 slurred speech although from discussions unclear exact duration with no associated headache or any other neurological deficits with improvement of her speech back to her baseline upon ED arrival given concern for recurrent TIA with history of admission 03/2023 for TIA with negative MRI at that time. In the ED NIH stroke scale 0. Workup in the ED included T98.2, heartrate 66, BP 121/67, respiratory rate 16, 98% on room air, CBC with WBC 7.4, hemoglobin 11.9, MCV 93.6, platelet 192 without marked shift, unremarkable coagsasides PT 15.2, BMP with potassium 3.4, chloride 113 otherwise not marked appearing, troponin 6, chest x-ray with no acute cardiopulmonary findings, CT brain with no acute intracranial findings, EKG with SR without acute evidence ofischemia. [facility] Medical History Anxiety and depression Chronic migraine Chronic neck and back pain Factor 5 Leiden mutation, heterozygous History of nephrolithiasis History of venous thromboembolism Obesity Tobacco use Home Medications medroxyprogesterone 150 mg/mL intramuscular syringe 150 mg IM .[id number] control 01/30/15 [History Last Taken Unknown] topiramate 25 mg tablet 200 mg PO BID 01/30/15 [History Last Taken Unknown] citalopram 40 mg tablet 40 mg PO DAILY mental health 04/04/19 [History Last Taken Unknown] haloperidol 5 mg tablet 2.5 mg PO TID PRN Anxiety 04/04/19 [History Last Taken Unknown] apixaban 5 mg tablet 5 mg PO BID blood thinner 06/03/20 [History Last Taken Unknown] cholecalciferol (vitamin D3) 50 mcg (2,000 unit) capsule 2,000 unit PO DAILY vitamin 06/03/20 [History Last Taken Unknown] acetaminophen 325 mg capsule (Tylenol) 325 mg PO ONCE PRN Pain 1-10 Or Fever 08/26/20 [History Last Taken Unknown] lidocaine 5 % topical patch (Lidoderm) 1 patch topical DAILY pain #6 ea 04/13/21[Rx Last Taken Unknown] albuterol sulfate 90 mcg/actuation aerosol inhaler 2 puff inhalation Q6H PRN CONGESTION/ALLERGIES 03/15/23 [History Last Taken Unknown] cetirizine 10 mg tablet 10 mg PO .DAILY AM allergies 03/15/23 [History Last Taken Unknown] famotidine 40 mg tablet 40 mg PO Q12H reflux 03/15/23 [History Last Taken Unknown] lamotrigine 200 mg tablet 200 mg PO DAILY seizures 03/15/23 [History Last Taken Unknown] montelukast 10 mg tablet 10 mg PO QHS allergies 03/15/23 [History Last Taken Unknown] triamcinolone acetonide 55 mcg nasal spray aerosol 2 spray intranasal DAILY 03/15/23 [History Last Taken Unknown] chlorhexidine gluconate 0.12 % mouthwash (Peridex) 15 ml buccal BID #120 mL 07/16/23 [Rx Last Taken Unknown] rimegepant 75 mg disintegrating tablet (Nurtec ODT) 75 mg PO DAILY PRN MIGRAINE 08/30/23 [History Last Taken Unknown] Allergy/AdvReac Type Severity Reaction Status Date / Time acetaminophen [From [place]] Allergy Itching Verified 08/29/23 21:04 hydrocodone [From [place]] Allergy Itching Verified 08/29/23 21:04 cephalexin monohydrate AdvReac WEAKNESS, Verified 08/29/23 21:04 [From Keflex] MUSCLE ACHES PERCOCET AdvReac Intermediate Itching Uncoded 07/27/23 15:36 Family History Mother Heart disease CVA (cerebral vascular accident) Diabetes Father No problems noted. Surgical History History of carpal tunnel release History of toe surgery S/P cervical spinal fusion Social History (Updated 08/30/23 @ 00:[address] Bridgett Ponce MD) household members: other details: Lives in her home with her 3 children, youngest 9. Smoking Status: Current every day smoker tobacco type: cigarettes, e- cigarettesand smokeless tobacco alcohol intake: never substance use type: does not use ROS ROS Narrative Admission Review of Systems: CONSTITUTIONAL: No weight loss, fever, chills, + weakness or fatigue. HEENT: + Chronic Headaches. Eyes: No visual loss, blurred vision, double vision or yellow sclerae. Ears, Nose, Throat: No hearing loss, sneezing, congestion, runny nose or sore throat. SKIN: No rash or itching, lesions, wounds. CARDIOVASCULAR: No chest pain, chest pressure or chest discomfort, palpitations,edema, orthopnea, syncopal events. RESPIRATORY: No shortness of breath, cough or sputum, wheezing, hemoptysis. GASTROINTESTINAL: No anorexia, nausea, vomiting or diarrhea, abdominal pain, melena, BRBPR. GENITOURINARY: No dysuria, frequency, urgency or retention. NEUROLOGICAL: + Transient slurred speech/dysarthria, chronic history of neck/back pain status post recent cervical fusion with right-sided radiculopathyand weakness unchanged, headaches/chronic migraines. No dizziness, syncope, paralysis, ataxia, change in bowel or bladder control, seizure. MUSCULOSKELETAL: + muscle, back pain, joint pain or stiffness. HEMATOLOGIC: + Easy bleeding or bruising. LYMPHATICS: No enlarged nodes. No history of splenectomy. PSYCHIATRIC: + history of depression or anxiety. ENDOCRINOLOGIC: No reports of sweating, cold or heat intolerance. No polyuria orpolydipsia. ALLERGIES: No history of asthma, hives, eczema or rhinitis. Vital Signs Vital Signs Vital Signs: 08/29/23 21:05 08/29/23 22:11 08/29/23 22:00 Temperature 98.2 F Temperature Source Temporal Pulse Rate 66 69 Respiratory Rate 16 17 Blood Pressure 121/67 H 117/73 Blood Pressure Mean 85 87 Pulse Ox 98 100 Oxygen Delivery Method Room Air Room Air Room Air Weight Weight: 203 lb 11.314 oz Body Mass Index (BMI) 36.1 Physical Exam Narrative Physical Examination: General: Awake, alert, oriented x 3 and cooperative, seated upright in the ED bed, talking without issue, dysarthria appears resolved. Skin: Normal color, normal turgor, no icterus, no cyanosis. HEENT: AT/NC, EOMI, PERRLA, mildly dry MM, no carotid bruits or JVD noted. Lungs: CTA bilaterally, moderate effort, mild decrease BL bases, no rales, ronchi or wheezing. Heart: Regular rate and rhythm; no gallop, rub audible. Abdomen: Soft, obese, NTTP, ND, normal BS, no HSM. Extremities: No cyanosis, clubbing, or edema. Neurological: Patient awake, alert, oriented as noted, cognitive function appears at baseline, pupils equally reactive to light and accommodation, cranialnerves grossly normal, moving all 4 extremities, no focal deficits, strength preserved, FTN and HTS appropriate, negative Babinski, sensation intact. Psychiatric: Affect appears fatigued otherwise normal, no acute evidence of depressive or anxiety feelings but does having underlying history. Results Lab / Micro Data 08/29/23 21:49 08/29/23 21:49 Labs: Laboratory Results - last 24 hr 08/29/23 21:49: WBC 7.4, RBC 3.89 L, Hgb 11.9 L, Hct 36.4 L, MCV 93.6, MCH 30.6,MCHC 32.7, RDW Std Deviation 45.8 H, RDW Coeff of Sharmin 13.3, Plt Count 192, MPV 9.7, Immature Gran % (Auto) 0.100, Neut % (Auto) 49.4, Lymph % (Auto) 42.1 H, Gladwin % (Auto) 5.7, Eos % (Auto) 1.9, Baso % (Auto) 0.8, Absolute Neuts (auto) 3.6, Absolute Lymphs (auto) 3.10, Nucleated RBC % 0, PT 15.2 H, INR 1.2, APTT 31.1, Sodium 142, Potassium 3.4 L, Chloride 113 H, Carbon Dioxide 23.0, Anion Gap 6, BUN 9, Creatinine 0.94, Estim Creat Clear Calc 86.66, Est GFR (MDRD) Af Amer 87, Est GFR (MDRD) Non-Af 72, BUN/Creatinine Ratio 9.6 L, Glucose 92, Calcium 9.0 08/29/23 22:05: Troponin I High Sens 6 Imaging Radiology Impression Brain CT 08/29/23 22:00 IMPRESSION: No acute intracranial finding. Electronically Signed: Aubrey Montero MD at 22:33 EDT , ADDENDUM: 08/29/23 2248 IMPRESSION: No acute intracranial finding. N.B. : The above Results were Read Back by Aubrey Montero MD to Dr. Vincent MD, and understanding confirmed on 08/29/2023 22:41:11 (ET). Electronically Signed: Aubrey Montero MD at 22:33 EDT , ADDENDUM: 08/29/23 2252 IMPRESSION: No acute intracranial finding. N.B. : The above Results were Read Back by Aubrey Montero MD to Dr. Vincent MD, and understanding confirmed on 08/29/2023 22:45:46 (ET). Electronically Signed: Aubrey Montero MD at 22:33 EDT , Chest X-Ray 08/29/23 22:18 IMPRESSION: No acute pulmonary finding. Electronically Signed: Aubrey Montero MD at 23:03 EDT , Assessment & Plan Assessment/Plan (1) Brain TIA: PLAN: Plan The patient is a 37 y/o F w/ PMHx: GERD, Allergic rhinitis, Chronic anemia, Chronic migraines, Obesity, Chronic neck and back pain with associated radiculopathy, Hx VTE (DVT, PE) with Factor V Leiden mutation/heterozygous on chronic eliquis regimen, Tobacco use, Anxiety and Depression/Suspected Bipolar disorder who presents to the [facility] ED on 08/29/23 with history of generalized fatigue and malaise reportedly not feeling well at work with onset at approximately 1900 slurred speech although from discussions unclear exact duration with no associated headache or any other neurological deficits with improvement of her speech back to her baseline upon ED arrival. #1. Transient slurred speech/Dysarthria concerning for possible TIA/CVA versus Higher suspicion Complex migraine w/ Hx migraines: Will admit to PCU, will obtain MRI Brain with and without contrast given representation atypical neurological symptoms reported to be cautious to assure no underlying demyelinating type issue as well, will obtain CTA head and neck given timeline from last but prior no acute findings, requesting urine drug screen and ethyl alcohol level, 03/15/2023 echocardiogram with negative bubble contrast study withLV systolic function normal, EF 60% with mild TVI at that time thus will not repeat, PT/OT/Speech/Nutrition evaluation per protocol. Will allow permissive HTN, maintain on asa, continue home Eliquis regimen, maintain on high-dose statin with AM FLP, fall precautions. Mag, TSH, FLP, HgbA1c requested. Maintain on fall and aspiration precautions. Will initiate neurology consultation. Willcontinue patient home Topamax regimen which she takes for her chronic migraines of note. #2. Hypokalemia: Admission K+ 3.4, magnesium level requested, supplementation given, repeat level in AM. #3. Hx VTE (DVT, PE) with Factor V Leiden mutation/heterozygous: Patient on chronic eliquis regimen, will continue. #4. Anxiety and Depression/Suspected Bipolar disorder: We will continue patienthome lamotrigine, citalopram, low-dose as needed Haldol use for her severe anxiety. Lamotrigine level requested to be cautious. #5. Chronic neck and back pain with associated radiculopathy: Maintain on fall precautions, PT/OT consulted per protocol given #1, will continue patient chronic Lidoderm patches as well as pain regimen as long as patient's not sedateor confused but low threshold to hold given evaluation for #1 is noted. #6. Tobacco Abuse: Encouraged cessation, inpatient consultation per RT, NR if desired. #7. Obesity: Weight loss and lifestyle changes encouraged. #8. Chronic normocytic anemia: Admission hemoglobin 11.9, MCV 93.6, baseline hemoglobin previously 11.1 03/16/2023, stable, continue to trend. #9. Allergic rhinitis: We will continue patient home montelukast, cetirizine regimen as well as intranasal triamcinolone regimen. #10. GERD: We will continue patient home famotidine regimen. #11. DVT prophylaxis: We will continue patient home Eliquis regimen. Charges/Coding Visit Charges Inpatient E&M: 36041 Init Hosp L2 08/30/23 0059 <Electronically signed by Bridgett Ponce MD> Cosigner Signature (if applicable): CC: BOOKING MANAGER-C BOOKING MANAGERSandra Tripp; Dr. Bridgett Ponce MD~ Signed [facility] Work Phone: [phone]) 533-589103-20-2024 Discharge summary Author Axel Kaur [facility] August 29, 2023 11:29pm Note Date/Time August 29, 2023 10: 07pm [facility] Medical Records Department [address] [place] [address] Emergency Department Summary 08/29/23 MR#: [id number] Acct: [id number] Name: CODY SANTANA Rep #:[id number] : 1985 37 From: Axel Kaur MD PCP: ISABEL Reynaga Status: REG ER Location: ED HPI History of Present Illness Chief Complaint: Neuro S/Sx Detail of Chief Complaint: Patient reports she did not feel well at work. 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 She is on long-term anticoagulant. She states she has been on anticoagulant forthe past 5 years. She was admitted March 2023 for TIA. Patient reports compliance with her anticoagulant. She presently denies headache, visual, ocular auditory symptoms. She feels her speech is back to normal. She states she does not feel right. She denies problems with coordination or balance. She denies paresthesia, anesthesia or weakness of her upper or lower extremities. She denies history of trauma. Prior similar symptoms: Yes Recent Illness/Hospitalization: No PFSH PFSH Medical History Acute pharyngitis, unspecified Anxiety and depression Chronic migraine Chronic neck and back pain Factor 5 Leiden mutation, heterozygous History of nephrolithiasis History of venous thromboembolism Obesity Tobacco use Home Medications medroxyprogesterone 150 mg/mL intramuscular syringe 150 mg IM .[id number] control 01/30/15 [History Last Taken Unknown] topiramate 25 mg tablet 200 mg PO BID 01/30/15 [History Last Taken Unknown] citalopram 40 mg tablet 40 mg PO DAILY mental health 04/04/19 [History Last Taken Unknown] haloperidol 5 mg tablet 2.5 mg PO TID PRN Anxiety 04/04/19 [History Last Taken Unknown] apixaban 5 mg tablet 5 mg PO BID blood thinner 06/03/20 [History Last Taken Unknown] baclofen 20 mg tablet 10 - 20 mg PO TID PRN Spasms 06/03/20 [History Last Taken Unknown] cholecalciferol (vitamin D3) 50 mcg (2,000 unit) capsule 2,000 unit PO DAILY vitamin 06/03/20 [History Last Taken Unknown] acetaminophen 325 mg capsule (Tylenol) 325 mg PO ONCE PRN Pain 1-10 Or Fever 08/26/20 [History Last Taken Unknown] lidocaine 5 % topical patch (Lidoderm) 1 patch topical DAILY pain #6 ea 04/13/21[Rx Last Taken Unknown] albuterol sulfate 90 mcg/actuation aerosol inhaler 2 puff inhalation Q6H PRN CONGESTION/ALLERGIES 03/15/23 [History Last Taken Unknown] cetirizine 10 mg tablet 10 mg PO .DAILY AM allergies 03/15/23 [History Last Taken Unknown] famotidine 40 mg tablet 40 mg PO Q12H reflux 03/15/23 [History Last Taken Unknown] lamotrigine 200 mg tablet 200 mg PO DAILY seizures 03/15/23 [History Last Taken Unknown] montelukast 10 mg tablet 10 mg PO QHS allergies 03/15/23 [History Last Taken Unknown] sumatriptan succinate 100 mg tablet 100 mg PO Q2H PRN migraine headache 03/15/23[History Last Taken Unknown] triamcinolone acetonide 55 mcg nasal spray aerosol 2 spray intranasal DAILY 03/15/23 [History Last Taken Unknown] potassium chloride 20 mEq tablet,extended release(part/cryst) 20 meq PO BID #20 tabs 03/16/23 [Rx Last Taken Unknown] benzonatate 200 mg capsule 200 mg PO TID PRN cough #20 caps 04/25/23 [Rx Last Taken Unknown] chlorhexidine gluconate 0.12 % mouthwash (Peridex) 15 ml buccal BID #120 mL 07/16/23 [Rx Last Taken Unknown] mupirocin 2 % topical ointment 1 applic topical TID #15 grams 07/16/23 [Rx Last Taken Unknown] methocarbamol 500 mg tablet 1,000 mg (2 x 500 mg) PO 4X/DAY PRN PRN Muscle pain/spasm 7 days #56 tabs 07/18/23 [Rx Last Taken Unknown] oxycodone-acetaminophen 5 mg-325 mg tablet (Percocet) 1 tab PO Q6H PRN pain 3 days #12 tabs 07/18/23 [Rx Last Taken Unknown] Allergy/AdvReac Type Severity Reaction Status Date / Time acetaminophen [From [place]] Allergy Itching Verified 08/29/23 21:04 hydrocodone [From [place]] Allergy Itching Verified 08/29/23 21:04 cephalexin monohydrate AdvReac WEAKNESS, Verified 08/29/23 21:04 [From Keflex] MUSCLE ACHES PERCOCET AdvReac Intermediate Itching Uncoded 07/27/23 15:36 Family History Mother Heart disease CVA (cerebral vascular accident) Diabetes Father No problems noted. Surgical History History of carpal tunnel release History of toe surgery S/P cervical spinal fusion Social History household members: other details: Lives in her home with her 3 children, youngest 9. Smoking Status: Current every day smoker tobacco type: cigarettes, e- cigarettesand smokeless tobacco alcohol intake: never substance use type: does not use ROS ROS ED Constitutional Constitutional ED: Reports weakness; Denies chills, fever(s), subjective or sweats Eyes Eyes: Denies blurry vision, change in vision or diplopia ENT ENT ED: Denies ear pain, rhinorrhea or sore throat Cardiovascular Cardiovascular: Denies chest pain or palpitations Respiratory/Chest Respiratory/Chest: Denies cough, dyspnea or dyspnea on exertion Gastrointestinal Gastrointestinal: Denies abdominal pain, melena, nausea or vomiting Genitourinary Genitourinary ED: Denies dysuria, hematuria or other Musculoskeletal Musculoskeletal: Denies arthralgias, back pain, myalgias or neck pain Integumentary Denies rash Neurologic Neurologic: Reports weakness and other Details: Per coworker she had slurred speech. Uncertain duration. ; Denies headache(s) or paresthesias Psychiatric Psychiatric: Reports anxiety and other Details: Patient states she has a historyanxiety. She was not certain if her symptoms were initially due to anxiety reaction or not. Endocrine Endocrinology: Denies polydipsia, polyphagia or polyuria Hematologic/Lymphatic Hematologic/Lymphatic: Reports easy bruising; Denies easy bleeding EXAM Physical Exam Const Vital Signs: 08/29/23 21:05 08/29/23 22:11 08/29/23 22:00 Temperature 98.2 F Temperature Source Temporal Pulse Rate 66 69 Respiratory Rate 16 17 Blood Pressure 121/67 H 117/73 Blood Pressure Mean 85 87 Pulse Ox 98 100 Oxygen Delivery Method Room Air Room Air Room Air Positive well nourished, well developed and obese General Appearance ED: well developed and NAD Nutritional Appearance: obese HEENT Reports TM's clear and moist mucous membranes atraumatic Tympanic Membrane ED: Yes TM's clear Eyes PERRL and EOMs intact bilaterally General Eye ED: Negative for pale conjunctiva or scleral icterus Neck no lymphadenopathy, supple and no JVD Chest Wall inspection of chest normal and palpation of chest normal Resp normal respiratory effort and clear to auscultation bilaterally Cardio no murmurs Rate: regular rate Rhythm: regular rhythm Heart Sounds: S1 normal and S2 normal GI normal to inspection, nondistended, normoactive bowel sounds, soft to palpation,non-tender, non-distended and no masses Extremity normal to inspection General Extremety ED: Negative for deformity or edema General Extremity: Negative for deformity or edema Neuro oriented x3, CN's II-XII intact bilaterally and no sensory deficits noted Neuro Narrative: There is no dysmetria. Brody Coma Scale: document GCS findings Spontaneous Obeys Commands Oriented 15 Sensorium / Orientation: alert Speech: speech normal Motor Exam: strength 5/5 throughout Psych mental status grossly normal Skin no wounds General Skin Exam: Negative for jaundice Lesions: no lesions Rashes: no rashes NIHSS NIHSS Initial: 1a Level of Consciousness: 0 1b LOC Questions (Score 2 if aphasic/stupor): 0 1c LOC Commands (Only score 1st attempt): 0 2 Best Gaze (If aphasic, use reflexive mvmts.): 0 3 Visual: 0 4 Facial Palsy: 0 5 Motor Arm Right (UN = amputation/fusion): 0 5 Motor Arm Left: 0 6 Motor Leg Right: 0 6 Motor Leg Left: 0 7 Limb ataxia (Only + if out of proportion): 0 8 Sensory (Aphasia/stupor=0 or 1, coma=2): 0 9 Best Language: 0 10 Dysarthria (mute, coma=2, intubated=UN): 0 11 Extinction and Inattention (only scored if +): 0 Total Score: 0 MDM MDM MDM Narrative Medical decision making narrative: Patient with history of factor V heterozygous deficiency prior stroke and complain of mild headache on anticoagulant obtain CT of the head to rule out bleed. Suspect patient had TIA. Because her NIH is 0 CTA was not obtained. More importantly she had recent workup including MRI in March that revealed novascular disease. History & Record Review Additional record(s) reviewed:: Prior inpatient record (Admitted March 2023 for TIA), Prior outpatient record (Recent visit for gout), Prior ED visit (Upperrespiratory symptoms and minor complaints) and Prior labs Lab Data Attestation: I reviewed the patient's lab results. Lab results narrative: CBC is remarkable for mild anemia with normal indices. Basic metabolic panel isnormal. Troponin is normal. Coags are normal. Labs: Laboratory Results - last 24 hr 08/29/23 08/29/23 21:49 22:05 WBC 7.4 RBC 3.89 L Hgb 11.9 L Hct 36.4 L MCV 93.6 MCH 30.6 MCHC 32.7 RDW Std Deviation 45.8 H RDW Coeff of Sharmin 13.3 Plt Count 192 MPV 9.7 Immature Gran % (Auto) 0.100 Neut % (Auto) 49.4 Lymph % (Auto) 42.1 H Gladwin % (Auto) 5.7 Eos % (Auto) 1.9 Baso % (Auto) 0.8 Absolute Neuts (auto) 3.6 Absolute Lymphs (auto) 3.10 Nucleated RBC % 0 PT 15.2 H INR 1.2 APTT 31.1 Sodium 142 Potassium 3.4 L Chloride 113 H Carbon Dioxide 23.0 Anion Gap 6 BUN 9 Creatinine 0.94 Estim Creat Clear Calc 86.66 Est GFR (MDRD) Af Amer 87 Est GFR (MDRD) Non-Af 72 BUN/Creatinine Ratio 9.6 L Glucose 92 Calcium 9.0 Troponin I High Sens 6 Radiography Chest X-Ray - ED: 1 View and Read by ED Physician (Single view chest x-ray as interpreted by me as normal. Cardiac silhouette and size normal. Lung parenchyma normal. Mediastinum normal. Osseous structures reveal no acute abnormality. This was independent reviewed interpreted by me at 2247.) Diagnostic Testing: Clinical Impression(s) from Imaging Studies Brain CT 08/29/23 22:00 IMPRESSION: No acute intracranial finding. Electronically Signed: Aubrey Montero MD at 22:33 EDT , ADDENDUM: 08/29/238 IMPRESSION: No acute intracranial finding. N.B. : The above Results were Read Back by Aubrey Montero MD to Dr. Vincent MD, and understanding confirmed on 08/29/2023 22:41:11 (ET). Electronically Signed: Aubrey Montero MD at 22:33 EDT , ADDENDUM: 08/29/23 2252 IMPRESSION: No acute intracranial finding. N.B. : The above Results were Read Back by Aubrey Montero MD to Dr. Vincent MD, and understanding confirmed on 08/29/2023 22:45:46 (ET). Electronically Signed: Aubrey Montero MD at 22:33 EDT , Chest X-Ray 08/29/23 22:18 IMPRESSION: No acute pulmonary finding. Electronically Signed: Aubrey Montero MD at 23:03 EDT , EKG Initial EKG: Attestation: I personally reviewed and interpreted this EKG as follows: Interpretation: Sinus Rhythm (Rate is 63. There is sinus variation. EKG is normal. NV interval is 150 ms. QRS duration 84 ms. QT durations 190 ms. [place] is normal) Management Discussion w/another healthcare provider: Hospitalist (Spoke to hospitalist. She knows patient well. PCU observation) and Radiologist (Regarding read on CT head without contrast.) Treatment and Re-Evaluation Narrative: CTA of the head and neck was not obtained because patient has an NIH of 0 and had a MRI CTA March 2023. Discharge Plan Dx/Rx/DC Orders Clinical Impression: Dysarthria, Factor V Leiden, Brain TIA Disposition Disposition: Acute Care Hospital [facility] What to do if you have Problems For any increased pain, shortness of breath, bleeding, nausea or vomiting, chestpain, or any unexpected problems, contact your Primary Care Provider. Call [facility] ([phone]) or report to the closest Emergency Room. Call 911 if necessary. 08/29/232328 <Electronically signed by Axel Kaur MD> Cosigner Signature (if applicable): CC: BOOKING MANAGERHeather Tripp ~ Signed [facility] Work Phone: [phone] 184-717703-20-2024 Discharge summary Author Axel Kaur [facility] August 29, 2023 11:29pm Note Date/Time August 29, 2023 10: 07pm [facility] Medical Records Department [address] [place] [address] Emergency Department Summary 08/29/23 MR#: [id number] Acct: [id number] Name: CODY SANTANA Rep #:[id number] : 1985 37 From: Axel Kaur MD PCP: VINOD. ISABEL Fortune Status: REG ER Location: ED HPI History of Present Illness Chief Complaint: Neuro S/Sx Detail of Chief Complaint: Patient reports she did not feel well at work. 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 She is on long-term anticoagulant. She states she has been on anticoagulant forthe past 5 years. She was admitted March 2023 for TIA. Patient reports compliance with her anticoagulant. She presently denies headache, visual, ocular auditory symptoms. She feels her speech is back to normal. She states she does not feel right. She denies problems with coordination or balance. She denies paresthesia, anesthesia or weakness of her upper or lower extremities. She denies history of trauma. Prior similar symptoms: Yes Recent Illness/Hospitalization: No PFSH PFSH Medical History Acute pharyngitis, unspecified Anxiety and depression Chronic migraine Chronic neck and back pain Factor 5 Leiden mutation, heterozygous History of nephrolithiasis History of venous thromboembolism Obesity Tobacco use Home Medications medroxyprogesterone 150 mg/mL intramuscular syringe 150 mg IM .[id number] control 01/30/15 [History Last Taken Unknown] topiramate 25 mg tablet 200 mg PO BID 01/30/15 [History Last Taken Unknown] citalopram 40 mg tablet 40 mg PO DAILY mental health 04/04/19 [History Last Taken Unknown] haloperidol 5 mg tablet 2.5 mg PO TID PRN Anxiety 04/04/19 [History Last Taken Unknown] apixaban 5 mg tablet 5 mg PO BID blood thinner 06/03/20 [History Last Taken Unknown] baclofen 20 mg tablet 10 - 20 mg PO TID PRN Spasms 06/03/20 [History Last Taken Unknown] cholecalciferol (vitamin D3) 50 mcg (2,000 unit) capsule 2,000 unit PO DAILY vitamin 06/03/20 [History Last Taken Unknown] acetaminophen 325 mg capsule (Tylenol) 325 mg PO ONCE PRN Pain 1-10 Or Fever 08/26/20 [History Last Taken Unknown] lidocaine 5 % topical patch (Lidoderm) 1 patch topical DAILY pain #6 ea 04/13/21[Rx Last Taken Unknown] albuterol sulfate 90 mcg/actuation aerosol inhaler 2 puff inhalation Q6H PRN CONGESTION/ALLERGIES 03/15/23 [History Last Taken Unknown] cetirizine 10 mg tablet 10 mg PO .DAILY AM allergies 03/15/23 [History Last Taken Unknown] famotidine 40 mg tablet 40 mg PO Q12H reflux 03/15/23 [History Last Taken Unknown] lamotrigine 200 mg tablet 200 mg PO DAILY seizures 03/15/23 [History Last Taken Unknown] montelukast 10 mg tablet 10 mg PO QHS allergies 03/15/23 [History Last Taken Unknown] sumatriptan succinate 100 mg tablet 100 mg PO Q2H PRN migraine headache 03/15/23[History Last Taken Unknown] triamcinolone acetonide 55 mcg nasal spray aerosol 2 spray intranasal DAILY 03/15/23 [History Last Taken Unknown] potassium chloride 20 mEq tablet,extended release(part/cryst) 20 meq PO BID #20 tabs 03/16/23 [Rx Last Taken Unknown] benzonatate 200 mg capsule 200 mg PO TID PRN cough #20 caps 04/25/23 [Rx Last Taken Unknown] chlorhexidine gluconate 0.12 % mouthwash (Peridex) 15 ml buccal BID #120 mL 07/16/23 [Rx Last Taken Unknown] mupirocin 2 % topical ointment 1 applic topical TID #15 grams 07/16/23 [Rx Last Taken Unknown] methocarbamol 500 mg tablet 1,000 mg (2 x 500 mg) PO 4X/DAY PRN PRN Muscle pain/spasm 7 days #56 tabs 07/18/23 [Rx Last Taken Unknown] oxycodone-acetaminophen 5 mg-325 mg tablet (Percocet) 1 tab PO Q6H PRN pain 3 days #12 tabs 07/18/23 [Rx Last Taken Unknown] Allergy/AdvReac Type Severity Reaction Status Date / Time acetaminophen [From Pro[place]] Allergy Itching Verified 08/29/23 21:04 hydrocodone [From [place]] Allergy Itching Verified 08/29/23 21:04 cephalexin monohydrate AdvReac WEAKNESS, Verified 08/29/23 21:04 [From Keflex] MUSCLE ACHES PERCOCET AdvReac Intermediate Itching Uncoded 07/27/23 15:36 Family History Mother Heart disease CVA (cerebral vascular accident) Diabetes Father No problems noted. Surgical History History of carpal tunnel release History of toe surgery S/P cervical spinal fusion Social History household members: other details: Lives in her home with her 3 children, youngest 9. Smoking Status: Current every day smoker tobacco type: cigarettes, e- cigarettesand smokeless tobacco alcohol intake: never substance use type: does not use ROS ROS ED Constitutional Constitutional ED: Reports weakness; Denies chills, fever(s), subjective or sweats Eyes Eyes: Denies blurry vision, change in vision or diplopia ENT ENT ED: Denies ear pain, rhinorrhea or sore throat Cardiovascular Cardiovascular: Denies chest pain or palpitations Respiratory/Chest Respiratory/Chest: Denies cough, dyspnea or dyspnea on exertion Gastrointestinal Gastrointestinal: Denies abdominal pain, melena, nausea or vomiting Genitourinary Genitourinary ED: Denies dysuria, hematuria or other Musculoskeletal Musculoskeletal: Denies arthralgias, back pain, myalgias or neck pain Integumentary Denies rash Neurologic Neurologic: Reports weakness and other Details: Per coworker she had slurred speech. Uncertain duration. ; Denies headache(s) or paresthesias Psychiatric Psychiatric: Reports anxiety and other Details: Patient states she has a historyanxiety. She was not certain if her symptoms were initially due to anxiety reaction or not. Endocrine Endocrinology: Denies polydipsia, polyphagia or polyuria Hematologic/Lymphatic Hematologic/Lymphatic: Reports easy bruising; Denies easy bleeding EXAM Physical Exam Const Vital Signs: 08/29/23 21:05 08/29/23 22:11 08/29/23 22:00 Temperature 98.2 F Temperature Source Temporal Pulse Rate 66 69 Respiratory Rate 16 17 Blood Pressure 121/67 H 117/73 Blood Pressure Mean 85 87 Pulse Ox 98 100 Oxygen Delivery Method Room Air Room Air Room Air Positive well nourished, well developed and obese General Appearance ED: well developed and NAD Nutritional Appearance: obese HEENT Reports TM's clear and moist mucous membranes atraumatic Tympanic Membrane ED: Yes TM's clear Eyes PERRL and EOMs intact bilaterally General Eye ED: Negative for pale conjunctiva or scleral icterus Neck no lymphadenopathy, supple and no JVD Chest Wall inspection of chest normal and palpation of chest normal Resp normal respiratory effort and clear to auscultation bilaterally Cardio no murmurs Rate: regular rate Rhythm: regular rhythm Heart Sounds: S1 normal and S2 normal GI normal to inspection, nondistended, normoactive bowel sounds, soft to palpation,non-tender, non-distended and no masses Extremity normal to inspection General Extremety ED: Negative for deformity or edema General Extremity: Negative for deformity or edema Neuro oriented x3, CN's II-XII intact bilaterally and no sensory deficits noted Neuro Narrative: There is no dysmetria. Brody Coma Scale: document GCS findings Spontaneous Obeys Commands Oriented 15 Sensorium / Orientation: alert Speech: speech normal Motor Exam: strength 5/5 throughout Psych mental status grossly normal Skin no wounds General Skin Exam: Negative for jaundice Lesions: no lesions Rashes: no rashes NIHSS NIHSS Initial: 1a Level of Consciousness: 0 1b LOC Questions (Score 2 if aphasic/stupor): 0 1c LOC Commands (Only score 1st attempt): 0 2 Best Gaze (If aphasic, use reflexive mvmts.): 0 3 Visual: 0 4 Facial Palsy: 0 5 Motor Arm Right (UN = amputation/fusion): 0 5 Motor Arm Left: 0 6 Motor Leg Right: 0 6 Motor Leg Left: 0 7 Limb ataxia (Only + if out of proportion): 0 8 Sensory (Aphasia/stupor=0 or 1, coma=2): 0 9 Best Language: 0 10 Dysarthria (mute, coma=2, intubated=UN): 0 11 Extinction and Inattention (only scored if +): 0 Total Score: 0 MDM MDM MDM Narrative Medical decision making narrative: Patient with history of factor V heterozygous deficiency prior stroke and complain of mild headache on anticoagulant obtain CT of the head to rule out bleed. Suspect patient had TIA. Because her NIH is 0 CTA was not obtained. More importantly she had recent workup including MRI in March that revealed novascular disease. History & Record Review Additional record(s) reviewed:: Prior inpatient record (Admitted March 2023 for TIA), Prior outpatient record (Recent visit for gout), Prior ED visit (Upperrespiratory symptoms and minor complaints) and Prior labs Lab Data Attestation: I reviewed the patient's lab results. Lab results narrative: CBC is remarkable for mild anemia with normal indices. Basic metabolic panel isnormal. Troponin is normal. Coags are normal. Labs: Laboratory Results - last 24 hr 08/29/23 08/29/23 21:49 22:05 WBC 7.4 RBC 3.89 L Hgb 11.9 L Hct 36.4 L MCV 93.6 MCH 30.6 MCHC 32.7 RDW Std Deviation 45.8 H RDW Coeff of Sharmin 13.3 Plt Count 192 MPV 9.7 Immature Gran % (Auto) 0.100 Neut % (Auto) 49.4 Lymph % (Auto) 42.1 H Gladwin % (Auto) 5.7 Eos % (Auto) 1.9 Baso % (Auto) 0.8 Absolute Neuts (auto) 3.6 Absolute Lymphs (auto) 3.10 Nucleated RBC % 0 PT 15.2 H INR 1.2 APTT 31.1 Sodium 142 Potassium 3.4 L Chloride 113 H Carbon Dioxide 23.0 Anion Gap 6 BUN 9 Creatinine 0.94 Estim Creat Clear Calc 86.66 Est GFR (MDRD) Af Amer 87 Est GFR (MDRD) Non-Af 72 BUN/Creatinine Ratio 9.6 L Glucose 92 Calcium 9.0 Troponin I High Sens 6 Radiography Chest X-Ray - ED: 1 View and Read by ED Physician (Single view chest x-ray as interpreted by me as normal. Cardiac silhouette and size normal. Lung parenchyma normal. Mediastinum normal. Osseous structures reveal no acute abnormality. This was independent reviewed interpreted by me at 2247.) Diagnostic Testing: Clinical Impression(s) from Imaging Studies Brain CT 08/29/23 22:00 IMPRESSION: No acute intracranial finding. Electronically Signed: Aubrey Montero MD at 22:33 EDT , ADDENDUM: 08/29/23 2248 IMPRESSION: No acute intracranial finding. N.B. : The above Results were Read Back by Aubrey Montero MD to Dr. Vincent MD, and understanding confirmed on 08/29/2023 22:41:11 (ET). Electronically Signed: Aubrey Montero MD at 22:33 EDT , ADDENDUM: 08/29/23 2252 IMPRESSION: No acute intracranial finding. N.B. : The above Results were Read Back by Aubrey Montero MD to Dr. Vincent MD, and understanding confirmed on 08/29/2023 22:45:46 (ET). Electronically Signed: Aubrey Montero MD at 22:33 EDT , Chest X-Ray 08/29/23 22:18 IMPRESSION: No acute pulmonary finding. Electronically Signed: Aubrey Montero MD at 23:03 EDT , EKG Initial EKG: Attestation: I personally reviewed and interpreted this EKG as follows: Interpretation: Sinus Rhythm (Rate is 63. There is sinus variation. EKG is normal. NV interval is 150 ms. QRS duration 84 ms. QT durations 190 ms. [place] is normal) Management Discussion w/another healthcare provider: Hospitalist (Spoke to hospitalist. She knows patient well. PCU observation) and Radiologist (Regarding read on CT head without contrast.) Treatment and Re-Evaluation Narrative: CTA of the head and neck was not obtained because patient has an NIH of 0 and had a MRI CTA March 2023. Discharge Plan Dx/Rx/DC Orders Clinical Impression: Dysarthria, Factor V Leiden, Brain TIA Disposition Disposition: Acute Care Hospital [facility] What to do if you have Problems For any increased pain, shortness of breath, bleeding, nausea or vomiting, chestpain, or any unexpected problems, contact your Primary Care Provider. Call [facility] ([phone]) or report to the closest Emergency Room. Call 911 if necessary. 08/29/232328 <Electronically signed by Axel Kaur MD> Cosigner Signature (if applicable): CC: BOOKING MANAGER-C 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 Neli Tripp ~ Signed [facility] Work Phone: [phone] Miscellaneous Notes* Telephone Encounter - Janet Fernandez APRN.CNP - 08/28/2023 11:15 AM EDT Pt already had lab work completed that was ordered at that time. * Telephone Encounter - Shahla Guerra OCCA - 08/28/2023 10:40 AM EDT Patient asking if new orders are necessary for lab draws. Last visit-- tele health 05/31/2023 Lab orders placed 06/06/2023 [facility]23 NoteHNO ID: [id number] Author: Heron Ardon RT(R) Service: Radiology Author [...] MR; Exam(s) Completed: Head: Routine Brain SIGNATURE: Heron Ardon RT(R) PATIENT NAME: Cody Santana DATE: May 16, 2023 TIME: 4:14 [facility]12-05-2023 NoteHNO ID: [id number] Author: Greg Brennan RN Service: Radiology Author [...] Intact SIGNATURE: Greg Brennan RN PATIENT NAME: Cody Julianchristiano DATE: May 16, 2023 TIME: 3:51 [facility]12-01-2023 Miscellaneous Notes* Telephone Encounter - Shahla Guerra OCCA - 05/12/2023 11:53 AM EST Received MRI insurance authorization from [employer] [facility] dated from 04/19/2023-05/19/2023. Auth # [id number] documented in this [facility]23 Miscellaneous Notes* Telephone Encounter - Lulu Freire - 04/05/2023 11:05 AM EDT Spoke with the patient and scheduled her appointment. * Telephone Encounter - Lulu Freire - 04/05/2023 9:41 AM EDT Left the patient another voice message about calling to schedule an appointment for TIA G45.9. Patient's phone# [phone] & [phone] * Telephone Encounter - Lulu Freire - 03/30/2023 9:22 AM EDT Received outside provider referral and medical records from the nurse. Left the patient a voice message to call the office to schedule an appointment with a neurologist for Possible TIA - abnormal MRI. documented in this encounter[facility] Hospital Discharge instructions Patient Education 12/08/2022 11:17:34 Surgical Spinal [...] spinal decompression may be done along with aprocedure to make two or more vertebrae grow together (spinal fusion). Tell a health care provider about: Any allergies you have. All medicines you are taking, including vitamins, herbs, eye drops, creams, and llgi-kci-frpkzff medicines. Any problems you or family members [...] provider tells you to take them. ?Taking ijuh-ucx-olsnbwl medicines, vitamins, herbs, and supplements. General instructions [...] blood oxygen level will be monitored until youleave the hospital or clinic. Your IV may [...] 06/17/2008 Document Revised: 05/11/2018 Document Reviewed: 04/25/2018 [employer]ward[employer] Patient Education 2020 [employer]. 12/08/2022 11:17:11 Surgical Spinal Decompression, Care After [...] and water are not available, use hand set up person. ?Change your dressing as told by your [...] your health care provider approves. Ask your healthcare provider if you may take showers. You [...] care provider or physical therapist. Avoid doing specialized language instructor that require a lot of effort, such [...] is safe to drive. General instructions Take qkpi-ghi-wbqzqga and prescription medicines only as told by [...] as fried or sweet foods. ?Take an jhsg-mgd-mnihptg or prescription medicine for constipation. If you [...] the surrounding area looks like a lump. Thelump may be red or bluish in color. [...] Follow instructions about activity and movements. Take lvle-dxk-kpotqte and prescription medicines only as told by your health care provider. Make sure you know what symptoms should cause you to get help right away. This information is not intended to replace advice given to you by your health care provider. Make sure you discuss any questions you have with your health care provider. Document Released: 10/13/2015 Document Revised: 05/11/2018 Document Reviewed: 04/25/2018 [employer]wardly Patient Education 2020 [employer] 12/08/2022 11:16:37 Bleeding Disorder Bleeding Disorder A bleeding disorder causes abnormal bleeding or bruising. There are many kinds of bleeding disorders. They develop when the blood does not clump together (clot) properly. Normally, when you are injured and you bleed, special blood cells (platelets) and certain blood proteins (clotting factors) forma gel-like plug (blood clot). The clot forms at the site of the injury to help stop the bleeding. The injured blood vessel also tightens (constricts) to help stop bleeding. When you cannot form blood clots, it may be hard to stop bleeding, and even mild injuries can causeserious bleeding. Bleeding can result in you not having enough red blood cells (anemia). Sudden andsevere bleeding can cause a dangerous loss of [...] (inherited), or they may develop on their own(acquired). Acquired bleeding disorders are most common. They [...] may be referred to a blood specialist (type soldering machine tender) for more tests, such as: Complete blood count (CBC). This checks red blood cell and platelet levels. Peripheral smear. This examines blood cells under a microscope and checks for abnormal blood cells. PT (prothrombin time) and PTT (partial thromboplastin time) tests. These measure clotting times andtest for clotting factors. Imaging tests, such as [...] Follow these instructions at home: Medicines Take ihrg-pnc-euwagmy and prescription medicines only as told by your health care provider. Talk with your health care provider before you take any new medicines. Certain medicines may increase your risk for dangerous bleeding. These include: ?Tpxe-zrx-srqffcp medicines that contain aspirin. ?NSAIDs such as [...] injury or bruising, such as contact sports. [place] your teeth using a soft toothbrush. Use [...] 04/06/2018 Document Revised: 09/18/2019 Document Reviewed: 04/06/2018 [employer] Patient Education 2020 [employer]. 12/08/2022 11:16:34 Anticoagulation, Generic Anticoagulation, Generic Anticoagulants [...] started 2 to 3 days after a rapid- acting injectable anticoagulant is started. The rapid-acting anticoagulants are usually continued until warfarin has begun to work. Your health care provider will evp strategy this length of time by blood tests known as the prothrombin time (PT) and International Normalization Ratio (INR). This means that your blood is at the necessary and best level to prevent clots. RISKS AND COMPLICATIONS If you have received recent epidural anesthesia, spinal anesthesia, or a spinal tap while receivinganticoagulants, you are at risk for developing a [...] provider as directed. It is very important tokeep your appointments. Not keeping appointments could result in a chronic or permanent injury, pain, or disability. Warfarin. Your health care provider will advise you on the length of treatment (usually 3 6 months,sometimes lifelong). ? Take warfarin exactly as directed by your health care provider. It is recommended that you take your warfarin dose at the same time of the day. It is preferred that you take warfarin in the late afternoon. If you have been told to stop taking warfarin, do not resume taking warfarin until directedto do so by your health care provider. [...] Normalized Ratio (INR) tests. The PT and INRresults allow your health care provider to adjust your dose of warfarin. The dose can change for many reasons. It is critically important that you have your PT and INR levels drawn exactly as directed. Your warfarin dose may stay the same or change depending on what the PT and INR results are. Be barney re to follow up with your health care provider regarding your PT and INR test results and what yourwarfarin dosage should be. ? Many medicines can interfere with warfarin and affect the PT and INR results. You must tell your health care provider about any and all medicines you take, this includes all vitamins and supplements. Ask your health care provider before taking these. Prescription and awfr-nmz-dclfvty medicine consistency is critical to warfarin management. It is important that potential interactions are checked before you start a new medicine. Be especially cautious with aspirin and anti- inflammatory medicines. Ask your health care provider before taking these. Medicines such as antibiotics and acid-reducing medicine can interact with warfarin and can cause an increased warfarin effect. Warfarin can also interfere with the effectiveness of medicines you are taking. Do not take or discontinue any prescribed or rols-dix-mmklmrj medicine except on the advice of your [...] provider before changing your diet. Suddenly getting alot more vitamin K could cause your blood [...] K include spinach, kale, broccoli, cabbage, greens, [place] sprouts, asparagus, [place], coleslaw, parsley, and [...] It is best to avoid alcoholic drinks orconsume only very small amounts while taking warfarin. Notify your health care provider if you change your alcohol intake. A sudden increase in alcohol use can increase your risk of bleeding. Chronicalcohol use can cause warfarin to be less [...] Document Reviewed: 12/31/2008 ExitCare Patient Information 2015 [employer]. This information is not intended to replace advicegiven to you by your health care provider. [...] types of hard cervical collars. Follow the openstack cloud consulting architect's instructions for use. These are general guidelines. [...] 02/18/2005 Document Revised: 12/04/2018 Document Reviewed: 04/20/2018 [employer] Patient Education 2020 [employer] Follow Up Care 10/27/2022 13:37:36 With:LES MICHEL DO, Orthopedic Address: [address] [place] [address], [address] [facility] [place] [address]- [phone] When: Unknown [facility] 06-29-2023 Note Discharge Instructions Thank you for allowing [facility] to assist you with your healthcare needs. The following is importantdischarge information regarding your hospital visit. Your Care Team Daniel Michel DO , [facility] Inpatient Care Team Your Diagnosis Cervical spondylosis Bipolar disorder Factor 5 Leiden mutation, heterozygous Migraine GERD (gastroesophageal reflux disease) What to do next Instructions From Your Doctor Activity: Do not drive, smoke, operate machinery, return to work, or engage in activities that require you leticia alert when taking narcotics, pain relievers or [...] not take any medications, herbal, prescription, or pzpe-uio-cnvxyjx unless prescribed for the next 12 weeks Remember to take your pain medication and/or muscle relaxants as ordered to keep your pain under control No NSAIDs for 3 months, will interfere with the fusion. Swelling around the nerves can cause continued numbness and tingling for days or weeks after surgery Follow Up Appointments Follow Up with LES MICHEL DO, Orthopedic When Where: [address] [place] [address], [address] [facility] [place] [address]- [phone] Allergies Keflex (Weakness) Provo (Itching) Percocet (Itching) Vicodin (Itching) cephalexin Medications Please ask your primary doctor or pharmacist before taking any other medication not listed, including over the counter drugs, herbal medications, vitamins and or supplements as they may interact withyour home medications. What How Much When Why Instructions Last Dose Unchanged acetaminophen- hydrocodone (Provo 325- 5 mg oral tablet) 1 tab(s) by mouth Every 6 hours as needed for for pain Cervical spondylosis Duration: 7 Days Pickup at [id number] 12/08 @ 08:35 Unchanged albuterol (Albuterol (Eqv-Ventolin [...] tab(s) by mouth Every day 12/08 @ 0835 Unchanged lidocaine topical (lidocaine 5% topical [...] each nostril Once a day Pharmacy Information [id number]: [address], [place] [phone] What How Much When Comments Stop Taking [...] spinal decompression may be done along with aprocedure to make two or more vertebrae grow together (spinal fusion). Tell a health care provider about: Any allergies you have. All medicines you are taking, including vitamins, herbs, eye drops, creams, and khgs-zun-ijdjmks medicines. Any problems you or family members [...] tells you to take them. ? Taking hpqr-era-lnxoblz medicines, vitamins, herbs, and supplements. General instructions [...] the area below and slightly above the injectionsite (spinal anesthetic). The surgeon will make an [...] blood oxygen level will be monitored until youleave the hospital or clinic. Your IV may [...] 06/17/2008 Document Revised: 05/11/2018 Document Reviewed: 04/25/2018 [employer] Patient Education 2020 [employer] Surgical Spinal Decompression, Care After This sheet [...] and water are not available, use hand set up person. ? Change your dressing as told by your health care provider. You may need to have someone change yourdressing for you. ? Leave stitches (sutures), skin [...] your health care provider approves. Ask your healthcare provider if you may take showers. You [...] care provider or physical therapist. Avoid doing specialized language instructor that require a lot of effort, such [...] is safe to drive. General instructions Take hkxf-imm-eibwrjl and prescription medicines only as told by [...] fried or sweet foods. ? Take an wlwa-ged-kmuqmat or prescription medicine for constipation. If you [...] the surrounding area looks like a lump. Thelump may be red or bluish in color. [...] Follow instructions about activity and movements. Take hkjg-wjd-ehnpnsr and prescription medicines only as told by your health care provider. Make sure you know what symptoms should cause you to get help right away. This information is not intended to replace advice given to you by your health care provider. Make sure you discuss any questions you have with your health care provider. Document Released: 10/13/2015 Document Revised: 05/11/2018 Document Reviewed: 04/25/2018 [employer] Patient Education 2020 [employer] Bleeding Disorder A bleeding disorder causes abnormal bleeding or bruising. There are many kinds of bleeding disorders. They develop when the blood does not clump together (clot) properly. Normally, when you are injured and you bleed, special blood cells (platelets) and certain blood proteins (clotting factors) forma gel-like plug (blood clot). The clot forms at the site of the injury to help stop the bleeding. The injured blood vessel also tightens (constricts) to help stop bleeding. When you cannot form blood clots, it may be hard to stop bleeding, and even mild injuries can causeserious bleeding. Bleeding can result in you not having enough red blood cells (anemia). Sudden andsevere bleeding can cause a dangerous loss of [...] (inherited), or they may develop on their own(acquired). Acquired bleeding disorders are most common. They [...] may be referred to a blood specialist (type soldering machine tender) for more tests, such as: Complete blood count (CBC). This checks red blood cell and platelet levels. Peripheral smear. This examines blood cells under a microscope and checks for abnormal blood cells. PT (prothrombin time) and PTT (partial thromboplastin time) tests. These measure clotting times andtest for clotting factors. Imaging tests, such as [...] Follow these instructions at home: Medicines Take njvp-vac-jrwscov and prescription medicines only as told by your health care provider. Talk with your health care provider before you take any new medicines. Certain medicines may increase your risk for dangerous bleeding. These include: ? Glgq-eeb-hnangjh medicines that contain aspirin. ? NSAIDs such [...] injury or bruising, such as contact sports. [place] your teeth using a soft toothbrush. Use [...] 04/06/2018 Document Revised: 09/18/2019 Document Reviewed: 04/06/2018 Artwardly Patient Education 2020 [employer]. Anticoagulation, Generic Anticoagulants are medicines used to [...] started 2 to 3 days after a rapid- acting injectable anticoagulant is started. The rapid-acting anticoagulants are usually continued until warfarin has begun to work. Your health care provider will evp strategy this length of time by blood tests known as the prothrombin time (PT) and International Normalization Ratio (INR). This means that your blood is at the necessary and best level to prevent clots. RISKS AND COMPLICATIONS If you have received recent epidural anesthesia, spinal anesthesia, or a spinal tap while receivinganticoagulants, you are at risk for developing a [...] provider as directed. It is very important tokeep your appointments. Not keeping appointments could result in a chronic or permanent injury, pain, or disability. Warfarin. Your health care provider will advise you on the length of treatment (usually 3 6 months,sometimes lifelong). ? Take warfarin exactly as directed by your health care provider. It is recommended that you take your warfarin dose at the same time of the day. It is preferred that you take warfarin in the late afternoon. If you have been told to stop taking warfarin, do not resume taking warfarin until directedto do so by your health care provider. [...] Normalized Ratio (INR) tests. The PT and INRresults allow your health care provider to adjust your dose of warfarin. The dose can change for many reasons. It is critically important that you have your PT and INR levels drawn exactly as directed. Your warfarin dose may stay the same or change depending on what the PT and INR results are. Be barney re to follow up with your health care provider regarding your PT and INR test results and what yourwarfarin dosage should be. ? Many medicines can interfere with warfarin and affect the PT and INR results. You must tell your health care provider about any and all medicines you take, this includes all vitamins and supplements. Ask your health care provider before taking these. Prescription and dcao-eet-nhewmwq medicine consistency is critical to warfarin management. It is important that potential interactions are checked before you start a new medicine. Be especially cautious with aspirin and anti- inflammatory medicines. Ask your health care provider before taking these. Medicines such as antibiotics and acid-reducing medicine can interact with warfarin and can cause an increased warfarin effect. Warfarin can also interfere with the effectiveness of medicines you are taking. Do not take or discontinue any prescribed or pdlx-kzn-ralawto medicine except on the advice of your [...] provider before changing your diet. Suddenly getting alot more vitamin K could cause your blood [...] K include spinach, kale, broccoli, cabbage, greens, [place] sprouts, asparagus, [place]ov[place], coleslaw, parsley, and [...] It is best to avoid alcoholic drinks orconsume only very small amounts while taking warfarin. Notify your health care provider if you change your alcohol intake. A sudden increase in alcohol use can increase your risk of bleeding. Chronicalcohol use can cause warfarin to be less [...] Document Reviewed: 12/31/2008 ExitCare Patient Information 2015 [employer] [facility]. This information is not intended to replace advicegiven to you by your health care provider. [...] types of hard cervical collars. Follow the openstack cloud consulting architect's instructions for use. These are general guidelines. [...] Document Reviewed: 04/20/2018 Elsevier Patient Education 2020 [employer]. Additional Information VACCINATE! IT SAVES LIVES! Members of the community who have not yet received the COVID-19 vaccine and would like to receive it can visit one of [facility] vaccine clinics. There are many vaccine clinic locations within the [facility]. For locations and available times, please visit [email or web address].gov/. It is important to note that some COVID mobile vaccine clinics are held outdoors and may be canceled in rainy or stormy conditions. To learn more about pediatric vaccinations (ages 5-11), we invite you to visit the [facility] webpage. [email or web address]/[email or web address]-[email or web address] [email or web address] learn more about the COVID-19 vaccine, we invite you to visit the CDC website for a list of frequently asked questions.https://www.cdc.gov/coronavirus/2019-ncov/vaccines/faq.html [facility] Patient Portal Access Instructions: Stay connected with your healthcare team and access your personal medical information anytime with the [employer] Patient Portal. Please follow the directions below to create your [employer] account: 1.Access the email account you provided upon registration to the hospital/physician office.2.Look for an invitation email from [facility].3.Open the email and access the invitation link: AcceptInvitation to [facility].4.Fill in the required bermudez to create your account. To access your account, visit [email or web address]. Click the blue button labeled Access Patient Portal and then log in with the username and password that you created in the steps above. You will be able to view your test results, lab results, a summary of your visits, upcoming appointments and more. There is also a convenient messaging option where you can send secure messages to your p rovider. In addition, you will have the ability to download any documents or summaries to your computer and/or send the information securely to a physician. Remember that your healthcare information is confidential, so carefully consider who you will allowto register on the [employer] Patient Portal for access to your information. You can also access the [employer] Patient Portal on the [employer] nikki. Simply click on Patient Portal and then log into your account. If you would like to receive a full copy of your medical records, please contact the [facility] Medical Records Department by calling [phone], Monday through Monday between 8 a.m. and 4:30 p.m. HOW TO SAFELY DISPOSE OF PRESCRIPTION MEDIC (more content not included)... [facility] [id number] Note ORIGINAL Images acquired, not reported on this accession number. [facility]06-28-2023 Note ORIGINAL Images acquired, not reported on this accession number.[facility]06-28-2023 Anesthesiology Consult note Patient: CODY SANTANA Age: 37 years Sex: Female : [...] Cephalexin- No reactions were documented. Keflex- Weakness. Provo- Itching. Percocet- Itching. Vicodin- Itching., Allergies (5) [...] q5min, PRN: Pain, scale 4-6 Prescriptions Prescribed Provo 325- 5 mg oral tablet: 1 tab(s), Oral, q6h, for 7 day(s), PRN: for pain, 28 tab(s), 0 Refill(s) Documented Medications Documented Albuterol (Eqv-Ventolin HFA) 90 mcg/inh inhalation aerosol: 2 puff(s), Inhalation, q6hr, PRN: as needed for wheezing, 0 Refill(s) SUMAtriptan 100 mg oral tablet: 100 mg, 1 tab(s), Oral, qDay, may repeat dose after 2 hours up to amaximum of 200 mg in 24 hours, PRN: [...] ESWL (extracorporeal shockwave lithotripsy) of ureteric calculus ([id number]). Comments: 11/25/2022 14:01 Elaine Mendieta RN with ureteral stent, x2 Cystoscopy ([id number]). CTR - carpal tunnel release ([id number]). Comments: 11/25/2022 14:02 Elaine Mendieta RN bilateral Wedge excision of skin of nail fold (eg, for ingrown toenail) (72674). Social History Social & Psychosocial Habits Alcohol 11/25/2022 Use: Never Substance Abuse 11/25/2022 Use: Never Tobacco 11/25/2022 Tobacco Use: 10 or more cigarettes (1/ Type: Cigarettes Number of years: 18 Home/Environment 11/25/2022 Domestic Concerns None Living situation: Home/Independent Primary Train Brake Operator: Self Current Home Treatments None Special Services [...] Signs(last 24 hrs) Last Charted Heart Rate Nnezxbegw96 bpm (DEC 07 08:50) Resp Rate H 21br/min (DEC 07 06:50) SBP80 mmHg (DEC 07 08:45) DBP57 mmHg (DEC 07 08:45) Measurements from flowsheet : Measurements 12/07/2022 6:50 EDT Height 160 cm Admission Weight 101 kg Bond Body Weight 52.38 kg Pain assessment: Pain [...] EDT SN - CAt - Role Performed Electric Dolly Operator (Modified) 12/07/2022 8:50 EDT Heart Rate Monitored [...] 12/07/2022 7:15 12/07/2022 7:35 EDT SN - AZ - Medication TOPICAL THROMBIN SN - [place] - Route of Administration Local SN - [place] - By (Single) SN - [place] - By (Single) 12/07/2022 7:35 EDT Heparin [...] - Post-operative Diagnosis SPINAL STENOSIS CERVICAL REGION, SPONDYLOSISWITH RADICULOPATHY CERVICAL REGION, OTHER CERVICAL DISC DEGENERATION, [...] TAE .25 IN X 12 IN 100/CA 16015-517 SN - TDC - Device Type TRAY GONZALEZ CATH 16F W/BAG 10/CA [id number] SN - TDC - Location ANTERIOR NECK [...] Attendee SN - CAt - Role Performed BULB TESTER SN - CAt - Role Performed Scrub 1 SN - CAt - Role Performed Testing Coordinator 1 SN - CAt - Role Performed Other SN - CAt - Role Performed Logistic Specialist SN - CAt - Role Performed Melter Supervisor Electric Arc Furnace SN - CAt - Role Performed Logistic Specialist SN - CAt - Role Performed Physician Cap Sewer 12/07/2022 7:19 EDT SN - CAt - [...] Person #1 We May Share PRIMITIVO Santana [phone] Designated Person #1 Relationship Father Designated Person #2 We May Share PRIMITIVO Kwan [phone] Designated Person #2 Relationship Sibling Privacy Restrictions Requested None Height 160 cm Admission Weight 101 kg Bond Body Weight 52.38 kg Temperature Temporal Artery [...] No further teaching needed Preferred Written Language Afghan Preferred Spoken Language Afghan General Infection Prevention Strategies Hand hygiene, Remind [...] Allergies Yes Anesthesia Extension Set Applied Yes Geothermal Operations Manager On Yes Consent Form Signed Yes Patient [...] QC PRGUP Positive . Assessment and Plan [place] Society of Anesthesiologists (ASA) physical status classification: Class III. Anesthetic Preoperative Plan Premedication: intravenous. Anesthetic technique: General. Induction: intravenously. Maintenance airway: Oral endotracheal tube. Postoperative pain management: Per surgeon. Risks discussed: nausea, vomiting, sore throat. Informed consent: signed by patient. Digitally Signed by GARRY RYDER on 12/07/2022 08:58 AM [facility]06-28[facility]2023 Note Date of Service 12/07/2022 Chief Complaint [...] planning, likely home tomorrow Digitally Signed by LES MICHEL DO on 12/08/2022 10:[address] [facility] note Author Gabrielle Lucio [facility] August 30, 2023 2:38pm Note Date/Time August 30, 2023 2:3 8pm [facility] Medical Records Department [address] [place] [address] Counseling Note - Pharmacy 08/30/23 1438 MR#: [id number] Acct: [id number] Name: CODY SANTANA Rep #:[id number] : 1985 37 From: Gabrielle Lucio PCP: ISABEL Reynaga Status: ADM MARGY Y Location: [place] [address] Pharmacy [place] Med Reconciliation Pharmacy Service has performed discharge medication reconciliation for this patient. The patient's discharge medication list was reviewed for discrepancies and discrepancies were resolved. Medications at Discharge Home Medications medroxyprogesterone 150 mg/mL intramuscular syringe 150 mg IM .[id number] control 01/30/15 topiramate 25 mg tablet 200 mg PO BID 01/30/15 citalopram 40 mg tablet 40 mg PO DAILY mental health 10/24/19 haloperidol 5 mg tablet 2.5 mg PO TID PRN Anxiety 04/04/19 apixaban 5 mg tablet 5 mg PO BID blood thinner 06/03/20 cholecalciferol (vitamin D3) 50 mcg (2,000 unit) capsule 2,000 unit PO DAILY vitamin 06/03/20 acetaminophen 325 mg capsule (Tylenol) 325 mg PO ONCE PRN Pain 1-10 Or Fever 08/26/20 lidocaine 5 % topical patch (Lidoderm) 1 patch topical DAILY pain #6 ea 04/13/21 albuterol sulfate 90 mcg/actuation aerosol inhaler 2 puff inhalation Q6H PRN CONGESTION/ALLERGIES 03/15/23 cetirizine 10 mg tablet 10 mg PO .DAILY AM allergies 03/15/23 famotidine 40 mg tablet 40 mg PO Q12H reflux 03/15/23 lamotrigine 200 mg tablet 200 mg PO DAILY seizures 03/15/23 montelukast 10 mg tablet 10 mg PO QHS allergies 03/15/23 triamcinolone acetonide 55 mcg nasal spray aerosol 2 spray intranasal DAILY 03/15/23 chlorhexidine gluconate 0.12 % mouthwash (Peridex) 15 ml buccal BID #120 mL 07/16/23 rimegepant 75 mg disintegrating tablet (Nurtec ODT) 75 mg PO DAILY PRN MIGRAINE 08/30/23 08/30/23 [id number] <Electronically signed by Gabrielle Lucio> Date _ Gabrielle Munoz Signature (if applicable): Date CC: ~ Signed [facility] Work Phone: Consult note Author Gabrielle Lucio [facility] Note Date/Time October 23, 2024 3:51p m [facility] Medical Records Department [address] [place] [address] Counseling Note - Pharmacy 10/23/24 4883 MR#: [id number] Acct: [id number] Name: CODY SANTANA Rep #:[id number] : 1985 38 From: Gabrielle Lucio PCP: Care Physician,No Primary Status :ADM MARGY Y Location: [place] [address] Pharmacy [facility] Pharmacy Service has performed discharge medication reconciliation and counseling for this patient. 1. NICOTINE 14MG PATCH 1 PATCH TD DAILY The patient's discharge medication list was reviewed for discrepancies and discrepancies were resolved. The patient was counseled on the following discharge medications and changes in medications for homegoing were reviewed. The Reason for Use, instructions for use, and potential side effects were reviewed for all new medications. The patient's questions regarding all of their medications were answered. The patient was able to verbally demonstrate an understanding of their dischargemedications. Medications at Discharge Home Medications medroxyprogesterone 150 mg/mL intramuscular syringe 150 mg IM .[id number] control 01/30/15 citalopram 40 mg tablet 40 mg PO DAILY mental health 04/04/19 haloperidol 5 mg tablet 2.5 mg PO TID PRN Anxiety 04/04/19 apixaban 5 mg tablet 5 mg PO BID blood thinner 06/03/20 acetaminophen 325 mg capsule (Tylenol) 325 mg PO ONCE PRN Pain 1-10 Or Fever 08/26/20 lidocaine 5 % topical patch (Lidoderm) 1 patch topical DAILY pain #6 ea 04/13/21 albuterol sulfate 90 mcg/actuation aerosol inhaler 2 puff inhalation Q6H PRN CONGESTION/ALLERGIES 03/15/23 cetirizine 10 mg tablet 10 mg PO .DAILY AM allergies 03/15/23 famotidine 40 mg tablet 40 mg PO Q12H reflux 03/15/23 lamotrigine 200 mg tablet 200 mg PO DAILY bipolar 03/15/23 montelukast 10 mg tablet 10 mg PO QHS allergies 03/15/23 triamcinolone acetonide 55 mcg nasal spray aerosol 2 spray intranasal DAILY 03/15/23 rimegepant 75 mg disintegrating tablet (Nurtec ODT) 75 mg PO DAILY PRN MIGRAINE 08/30/23 erenumab-aooe 70 mg/mL subcutaneous auto-injector (Aimovig Autoinjector) 70 mg subcut .monthly 10/31/23 methocarbamol 500 mg tablet 250 - 500 mg PO Q8H PRN muscle spasm 08/17/24 cholecalciferol (vitamin D3) 25 mcg (1,000 unit) capsule 50 mcg PO DAILY 10/22/24 topiramate 200 mg tablet 200 mg PO BID 10/22/24 nicotine 14 mg/24 hr daily transdermal patch 14 mg transdermal DAILY #28 ea 10/23/24 10/23/24 1551 <Electronically signed by Gabrielle Lucio> Date _ Gabrielle Lucio Cosigner Signature (if applicable): Date CC: ~ Signed [facility] Work Phone: Discharge summary Author Jeovany [facility] August 30, 2023 2:09pm Note Date/Time August 30, 2023 1:4 6pm [facility] Medical Records Department [address] [place] [address] Instructions for Home/Discharge Instructions 08/30/23 1344 MR#: [id number] Acct: [id number] Name: CODY SANTANA Rep #:[id number] : 1985 37 From: Jeovany Walsh DO PCP: ISABEL Reynaga Status: ADM MARGY Discharge Instructions Diet Discharge Diet: No restrictions Activity Discharge Activity: Return to Normal Activity Weight Bearing Status: Full weight bearing Follow Up Care Test Results: Test results from this visit will be discussed in further detail at your follow- up appointment, if applicable. Discharge Plan Admission Admit Date/Time: 08/29/23 23:24 Primary Reason for Your Visit: complex migrane Attending Provider: Jeovany Walsh Primary Care Provider: Neli Tripp Consulting Providers: Mohit Duffy; Mark Pop; Anna Arenas; Gracie Bains; Cathy Harding; Brenden Gann; Edie Paredes; Aly Soto; Yon Ramires; Alesha Liu; Antwon Hopson; Amelie Lopez; Pierre Melton; Soniashasta Monroe; Hunter Bennett; Hollis Núñez; Cristiano oChn; Tatyana Harden; Elizabeth Herrera;Bridgett Ponce Discharge Orders/Prescriptions Prescriptions: Continued acetaminophen [Tylenol] 325 mg capsule 325 mg PO ONCE PRN (Reason: Pain 1-10 Or Fever) chlorhexidine gluconate [Peridex] 0.12 % mouthwash 15 ml buccal BID Qty: 120 1RF topiramate 25 MG tablet 200 mg PO BID medroxyprogesterone 150 MG/ML syringe 150 mg IM .[id number] citalopram 40 MG tablet 40 mg PO DAILY haloperidol 5 MG tablet 2.5 mg PO TID PRN (Reason: Anxiety) cholecalciferol (vitamin D3) 2,000 UNIT capsule 2,000 unit PO DAILY apixaban 5 MG tablet 5 mg PO BID lidocaine [Lidoderm] 5 % adhesive patch,medicated 1 patch topical DAILY Qty: 6 0RF Rx Instructions: leave on most painful area for up to 12 hrs lamotrigine 200 mg tablet 200 mg PO DAILY Patient Comments: TAKE 1 TABLET BY MOUTH ONCE DAILY IN THE MORNING cetirizine 10 mg tablet 10 mg PO .DAILY AM famotidine 40 mg tablet 40 mg PO Q12H Patient Comments: PT TAKES AT DINNER TIME AND THEN ONE AT BEDTIME triamcinolone acetonide 55 mcg aerosol,spray 2 spray INTRANASAL DAILY Patient Comments: USE 2 SPRAY(S) INTRANASALLY ONCE DAILY montelukast 10 mg tablet 10 mg PO QHS Patient Comments: TAKE 1 TABLET BY MOUTH ONCE DAILY albuterol sulfate 90 mcg/actuation HFA aerosol inhaler 2 puff inhalation Q6H PRN (Reason: CONGESTION/ALLERGIES) Nurtec ODT 75 mg tablet,disintegrating 75 mg PO DAILY PRN Referrals / Follow Up: Neli Tripp, BOOKING MANAGER-C [Primary Care Provider] - Within 2 Weeks Disposition Disposition (needs filled in before D/C Order can be placed): Home, Self Care 08/30/23 9468<Electronically signed by Jeovany Walsh DO>Jeovany Walsh DO CC: Gracie Bains; Amelie Lopez; BOOKING MANAGER-C 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 Neli Tripp; Hunter Davidson; Cathy Harding MD; Anna Arenas MD; Mohit Duffy MD; Dr. Mark Pop MD; Dr. Bridgett Ponce MD; Dr. Brenden Gann MD; Dr. Edie Paredes MD; Dr. Yon Ramires MD; Dr. Aly Soto MD; Dr. Antwon Hopson DO; Dr. Dayanara Scott MD; Dr. Pierre Melton MD; Dr. Hollis Núñez MD; Dr. Cristiano Cohn MD; Dr. Tatyana Harden MD; Alesha Liu DO; Elizabeth Herrera MD ~ [facility] Work Phone: Discharge summary Author [facility] Note Date/Time October 23, 2024 3:34p [facility] Medical Records Department [address] [place] [address] Instructions for Home/Discharge Instructions 10/23/24 1529 MR#: [id number] Acct: [id number] Name: CODY SANTANA Rep #:[id number] : 1985 38 From: Taye Gaston PCP: Care Physician,No Primary Status :ADM MARGY Discharge Instructions Diet Discharge Diet: 2000 mg Sodium Diet DC O2, CPAP, BIPAP needs Home O2 Discharge instructions: No Dressing / Incision Discharge Activity: Return to Normal Activity Weight Bearing Status: Weight bearing as tolerated Dressing / Incision Call your doctor if you observe: Fever of 101 or Higher, Coldness, Increased Pain, Numbness or Tingling, Change in Color, Inability to urinate, Inability to have a bowel movement, Shortness of breath, Dizziness, Fainting spells, Swellingin the ankles, Chest pain, Prolonged hiccupping, Increased palpitations (irregular heartbeat) and Calf discomfort Follow Up Care When: IN 2 WEEKS Test Results: Test results from this visit will be discussed in further detail at your follow- up appointment, if applicable. Discharge Plan Admission Admit Date/Time: 10/22/24 21:51 Primary Reason for Your Visit: Atypical migraine. Stroke ruled out Attending Provider: Taye Delvalle Primary Care Provider: Care Physician,No Primary Consulting Providers: Farhana Harden Instructions Additional Instructions / Restrictions: Patient follows on neurologist in [place]. She had MRI with and without contrast short while ago. Advised to follow-up with neurologist with a new MRI. She has chronic white matter changes in brain MRI and she said she hadsimilar findings in the previous MRI Discharge Orders/Prescriptions Prescriptions: New nicotine 14 mg/24 hr Patch 24 Hour 14 mg transdermal DAILY Qty: 28 0RF Continued acetaminophen [Tylenol] 325 mg capsule 325 mg PO ONCE PRN (Reason: Pain 1-10 Or Fever) Aimovig Autoinjector 70 mg/mL auto-injector 70 mg subcut .monthly Rx Instructions: the 8th of each month medroxyprogesterone 150 MG/ML syringe 150 mg IM .[id number] citalopram 40 MG tablet 40 mg PO DAILY haloperidol 5 MG tablet 2.5 mg PO TID PRN (Reason: Anxiety) apixaban 5 MG tablet 5 mg PO BID lidocaine [Lidoderm] 5 % adhesive patch,medicated 1 patch topical DAILY Qty: 6 0RF Rx Instructions: leave on most painful area for up to 12 hrs lamotrigine 200 mg tablet 200 mg PO DAILY Patient Comments: TAKE 1 TABLET BY MOUTH ONCE DAILY IN THE MORNING cetirizine 10 mg tablet 10 mg PO .DAILY AM famotidine 40 mg tablet 40 mg PO Q12H Patient Comments: PT TAKES AT DINNER TIME AND THEN ONE AT BEDTIME triamcinolone acetonide 55 mcg aerosol,spray 2 spray INTRANASAL DAILY Patient Comments: USE 2 SPRAY(S) INTRANASALLY ONCE DAILY montelukast 10 mg tablet 10 mg PO QHS Patient Comments: TAKE 1 TABLET BY MOUTH ONCE DAILY albuterol sulfate 90 mcg/actuation HFA aerosol inhaler 2 puff inhalation Q6H PRN (Reason: CONGESTION/ALLERGIES) methocarbamol 500 mg tablet 250 - 500 mg PO Q8H PRN (Reason: muscle spasm) cholecalciferol (vitamin D3) 25 mcg (1,000 unit) capsule 50 mcg PO DAILY topiramate 200 mg tablet 200 mg PO BID citalopram [Celexa] 40 mg tablet 40 mg PO DAILY Nurtec ODT 75 mg tablet,disintegrating 75 mg PO DAILY PRN Referrals / Follow Up: Care Physician,No Primary [Primary Care Provider] - Disposition Disposition (needs filled in before D/C Order can be placed): Home, Self Care 10/23/241534<Electronically signed by Taye Delvalle MD>Taye Delvalle MD CC: Dr. Farhana Harden DO; No Primary Care Physician ~ Signed [facility] Work Phone: Discharge summary Author Taye Delvalle [facility] Note Date/Time October 23, 2024 3:41p m [facility] Medical Records Department [address] [place] [address] Discharge Summary 10/23/241534 MR#: [id number] Acct: [id number] Name: CODY SANTANA Rep #:[id number] : 1985 38 From: Taye Gaston PCP: Care Physician,No Primary Status :ADM MARGY Location: [place] [address] Providers Date of Admission: 10/22/24 Date of Discharge: 10/23/24 Primary Care Physician: No Primary Care Phys Consultations 10/22/24 22:35 Consult: Tele-Neurology Routine Consulting Provider: [facility] Reason for Consult: Acute Ischemic Stroke/TIA EMERGENT Consult: No MD Notified: No Date Notified: 10/22/24 Time Notified: 21:55 Nursing Unit Staff Notify [facility] of Tele-Neurology Consult: Yes Reason For Visit: L LEG WEAKNESS/QUINTANA/EXPRESSIVE APHASIA Diagnosis Discharge Diagnosis (1) Left leg weakness: Status: Acute Code(s): R29.898 - Other symptoms and signs involving the musculoskeletal system (2) Expressive aphasia: Status: Acute Code(s): R47.01 - Aphasia (3) Headache: Status: Acute Code(s): R51.9 - Headache, unspecified (4) Anemia: Status: Acute Code(s): D64.9 - Anemia, unspecified Plan 31-year-old female admitted with episode of decreased left leg strength/weakness, expressive aphasia, headache and generalized tiredness for about 1 week. On the day of admission, she felt the symptoms coming back and had difficulty finding words Left leg weakness/expressive aphasia/right arm paresthesias, headache probably atypical presentation of migraine: Patient is being admitted in PCU. CT head does not show acute infarct or hemorrhage mass effect or herniation. CTA head and neck reported patent anterior and posterior intracranial circulation patientwithout hemodynamically significant stenosis. MRI brain report bilateral cerebral white matter changes, some with radial orientation, concerning for possible demyelinating disease in a patient of this age. NIH stroke scale 0. After discussion with the patient states that she follows neurologist in [place] and she had MRI brain with and without contrast short while ago and it showed significant white matter changes. Since this is not new finding and given option of follow-up [facility] CTA and brain MRI reportgiven and if needed it can be uploaded to the PACS Acute stroke ruled out. No intracranial mass. 2D echo reported normal EF 60% with structurally normal valves. Fasting lipid profile shows low HDL advised to follow with PCP Chronic migraine headache -History of previously diagnosed complex migraine - Treated in the emergency department for migraine - Patient does have history of chronic migraines and is currently awaiting pre- CERT for her injectable medication. -On Aimovig for Migraines at baseline. She follows her own neurologist in [place] Mild chronic anemia: No acute issues History of factor V Leiden/VTE - Continue home Eliquis Bipolar disorder - Continue citalopram - Continue as needed Haldol next-continue Lamictal - Continue Topamax Tobacco abuse - Recommend cessation - Currently smokes about three quarters of a pack daily - Nicotine patch 14 mcg available Obesity -BMI 35.5 -Recommend weight loss-complicates treatment, prognosis, outcomes DVT prophylaxis - Lovenox 40 milligram subcu daily CODE STATUS - Full code verified Patient would like to go home and follow-up with her own neurologist she has to order picker her daughter. Discharge medication reconciliation done. Discharge follow-up instructions completed. Discharge process discussed with the patient and all questions were answered to patient's satisfaction. Follow with PCP in 1 to 2 weeks Total time spent, exact 35 minutes on discharge meds reconciliation, examination, coordination of care with nurses and ancillary staff, review of imaging and blood test and discussion with the patient on follow-up instructions. . Medications at Discharge Home Medications medroxyprogesterone 150 mg/mL intramuscular syringe 150 mg IM .[id number] control 01/30/15 citalopram 40 mg tablet 40 mg PO DAILY mental health 04/04/19 haloperidol 5 mg tablet 2.5 mg PO TID PRN Anxiety 04/04/19 apixaban 5 mg tablet 5 mg PO BID blood thinner 06/03/20 acetaminophen 325 mg capsule (Tylenol) 325 mg PO ONCE PRN Pain 1-10 Or Fever 08/26/20 lidocaine 5 % topical patch (Lidoderm) 1 patch topical DAILY pain #6 ea 04/13/21 albuterol sulfate 90 mcg/actuation aerosol inhaler 2 puff inhalation Q6H PRN CONGESTION/ALLERGIES 03/15/23 cetirizine 10 mg tablet 10 mg PO .DAILY AM allergies 03/15/23 famotidine 40 mg tablet 40 mg PO Q12H reflux 03/15/23 lamotrigine 200 mg tablet 200 mg PO DAILY bipolar 03/15/23 montelukast 10 mg tablet 10 mg PO QHS allergies 03/15/23 triamcinolone acetonide 55 mcg nasal spray aerosol 2 spray intranasal DAILY 03/15/23 rimegepant 75 mg disintegrating tablet (Nurtec ODT) 75 mg PO DAILY PRN MIGRAINE 08/30/23 erenumab-aooe 70 mg/mL subcutaneous auto-injector (Aimovig Autoinjector) 70 mg subcut .monthly 10/31/23 methocarbamol 500 mg tablet 250 - 500 mg PO Q8H PRN muscle spasm 08/17/24 cholecalciferol (vitamin D3) 25 mcg (1,000 unit) capsule 50 mcg PO DAILY 10/22/24 topiramate 200 mg tablet 200 mg PO BID 10/22/24 nicotine 14 mg/24 hr daily transdermal patch 14 mg transdermal DAILY #28 ea 10/23/24 Physical Exam Narrative Seen and examined Her headache is much improved. She usually gets right-sided migraine pain mainly retro-orbital pain. It got better by the afternoon. No acute change in vision or color flashes. No focal weakness numbness or tingling. Physical exam General: Alert, Oriented x3, Cooperative HEENT: Atraumatic, PERRLA, EOMI, Normocephalic. Oral: No Gingival or Mucosal Lesions/ Ulcerations Neck: Supple, No JVD, Negative Carotid Bruits Chest wall/Lungs: Air entry diminished in bilateral lung bases. No crepitation/rhonchi Cardiovascular: Regular rate and rhythm, Normal S1,S2, No M/G/R Abdomen: Bowel Sounds Present, Soft, Non Tender, Non-Distended : No dysuria. No renal angle tenderness. No suprapubic tenderness. Extremities: No edema, Capillary Refill Less than 3 Seconds Skin: Mild bruise on the left knee, recent right Musculoskeletal: No Tenderness to Palpation of Joints or Extremities Neurological: Cranial nerves II-XII grossly intact, DTR 2+/4. No acute focal neurological deficit. Psych/Mental Status: Normal Affect, Appropriate. Weight / BMI Weight Weight: 197 lb 1.492 oz Body Mass Index (BMI) 36.0 ABG / Lab / Microbiology Data 10/23/24 05:16 10/23/24 05:16 Laboratory: Laboratory Results - last 24 hr 10/22/24 20:48: WBC 6.4, RBC 3.77 L, Hgb 11.9 L, Hct 34.9 L, MCV 92.6, MCH 31.6,MCHC 34.1, RDW Std Deviation 48.1 H, RDW Coeff of Sharmin 14.1, Plt Count 188, MPV 10.5, Immature Gran % (Auto) 0.200, Neut % (Auto) 44.7 L, Lymph % (Auto) 43.7 H,Gladwin % (Auto) 8.6, Eos % (Auto) 2.2, Baso % (Auto) 0.6, Absolute Neuts (auto) 2.9, Absolute Lymphs (auto) 2.80, Nucleated RBC % 0, Differential Comment SCANNED, Atypical Lymphocytes 2+, PT 14.3, INR 1.1, APTT 30.8, Sodium 139, Potassium 3.4, Chloride 110 H, Carbon Dioxide 18.2 L, Anion Gap 11, BUN 12, Creatinine 0.97, Estim Creat Clear Calc 84.27, Est GFR (MDRD) Non-Af 78, BUN/Creatinine Ratio 12.1, Glucose 79, Hemoglobin A1c 5.1, Calcium 9.3, TroponinT High Sens 7 10/22/24 21:40: POC Glucose 88 10/22/24 22:53: Troponin T Hi Sens 2 Hr < 6 10/23/24 01:12: Troponin T Hi Sens 4Hr < 6 10/23/24 05:16: WBC 6.6, RBC 3.65 L, Hgb 11.5 L, Hct 34.5 L, MCV 94.5, MCH 31.5,MCHC 33.3, RDW Std Deviation 49.9 H, RDW Coeff of Sharmin 14.4, Plt Count 182, MPV 10.3, Immature Gran % (Auto) 0.200, Neut % (Auto) 38.1 L, Lymph % (Auto) 49.8 H,Gladwin % (Auto) 7.5, Eos % (Auto) 3.5, Baso % (Auto) 0.9, Absolute Neuts (auto) 2.5, Absolute Lymphs (auto) 3.27, Nucleated RBC % 0, Differential Comment SCANNED, Atypical Lymphocytes 2+, Sodium 143, Potassium 3.5, Chloride 115 H, Carbon Dioxide 17.7 L, Anion Gap 10, BUN 14, Creatinine 0.90, Estim Creat Clear Calc 88.93, Est GFR (MDRD) Non-Af 84, BUN/Creatinine Ratio 15.2, Glucose 107 H, Calcium 8.9, Phosphorus 3.7, Magnesium 2.1, Total Bilirubin 0.25, AST 19, ALT 14, Alkaline Phosphatase 47, Total Protein 6.5, Albumin 3.8, Globulin 2.8, Albumin/Globulin Ratio 1.4, Triglycerides 106, Cholesterol 160, LDL Cholesterol,Calc 105, VLDL Cholesterol 21, HDL Cholesterol 34 L, Cholesterol/HDL Ratio 4.75 Radiography Diagnostic Testing: Radiology Impression Brain CT 10/22/24 21:10 IMPRESSION: No acute intracranial abnormality. Reading Location: [facility] Head/Neck CTA 10/22/24 21:18 IMPRESSION: Patent anterior and posterior intracranial and extracranial circulation, withouthemodynamically significant stenosis. Reading Location: [facility] Echocardiogram 10/22/24 21:59 Interpretation Summary Normal LV size. Left ventricular systolic function is normal. The left ventricular ejection fraction is 60 %. Structurally normal valves. Ordering Physician: Farhana Harden Performed By: Ilda Frank RDCS Brain MRI 10/23/24 09:00 IMPRESSION: Bilateral cerebral white matter changes, some with radial orientation, concerning for possible demyelinating disease in a patient of this age. Reading Location: [place] [address] D/C Instructions Discharge Diet: 2000 mg Sodium Diet Weight Bearing Status: Weight bearing as tolerated Call your doctor if you observe: Fever of 101 or Higher, Coldness, Increased Pain, Numbness or Tingling, Change in Color, Inability to urinate, Inability to have a bowel movement, Shortness of breath, Dizziness, Fainting spells, Swellingin the ankles, Chest pain, Prolonged hiccupping, Increased palpitations (irregular heartbeat) and Calf discomfort DC O2, CPAP, BIPAP Needs Home O2 Discharge instructions: No When: IN 2 WEEKS Meaningful Use Info Meaningful Use Meaningful Use Diagnoses (Choose all that apply): None applicable Ischemic Stroke Statin Dosing Therapy Reference: STATIN DOSE THERAPY REFERENCE: * Patients > 75 years receive moderate or high dose statin therapy. * Patients 75 years or YOUNGER should receive HIGH intensity statin dose unless contraindicated. You will be required to document reason for non-treatment if statin daily dose does not meet guidelines. HIGH DOSE STATIN THERAPY DAILY Atorvastatin > than or = to 40 mg Rosuvastatin > than or = to 20 mg Amlodipine + Atorvastatin > than or = to 2.5/40 mg Ezetimibe + Simvastatin 10/80 mg Simvastatin 80mg Discharge Plan Admission Admit Date/Time: 10/22/24 21:51 Primary Reason for Your Visit: Atypical migraine. Stroke ruled out Attending Provider: Taye Delvalle Primary Care Provider: Care Physician,No Primary Consulting Providers: Farhana Harden Instructions Additional Instructions / Restrictions: Patient follows on neurologist in [place]. She had MRI with and without contrast short while ago. Advised to follow-up with neurologist with a new MRI. She has chronic white matter changes in brain MRI and she said she hadsimilar findings in the previous MRI Discharge Orders/Prescriptions Prescriptions: New nicotine 14 mg/24 hr Patch 24 Hour 14 mg transdermal DAILY Qty: 28 0RF Continued acetaminophen [Tylenol] 325 mg capsule 325 mg PO ONCE PRN (Reason: Pain 1-10 Or Fever) Aimovig Autoinjector 70 mg/mL auto-injector 70 mg subcut .monthly Rx Instructions: the 8th of each month medroxyprogesterone 150 MG/ML syringe 150 mg IM .[id number] citalopram 40 MG tablet 40 mg PO DAILY haloperidol 5 MG tablet 2.5 mg PO TID PRN (Reason: Anxiety) apixaban 5 MG tablet 5 mg PO BID lidocaine [Lidoderm] 5 % adhesive patch,medicated 1 patch topical DAILY Qty: 6 0RF Rx Instructions: leave on most painful area for up to 12 hrs lamotrigine 200 mg tablet 200 mg PO DAILY Patient Comments: TAKE 1 TABLET BY MOUTH ONCE DAILY IN THE MORNING cetirizine 10 mg tablet 10 mg PO .DAILY AM famotidine 40 mg tablet 40 mg PO Q12H Patient Comments: PT TAKES AT DINNER TIME AND THEN ONE AT BEDTIME triamcinolone acetonide 55 mcg aerosol,spray 2 spray INTRANASAL DAILY Patient Comments: USE 2 SPRAY(S) INTRANASALLY ONCE DAILY montelukast 10 mg tablet 10 mg PO QHS Patient Comments: TAKE 1 TABLET BY MOUTH ONCE DAILY albuterol sulfate 90 mcg/actuation HFA aerosol inhaler 2 puff inhalation Q6H PRN (Reason: CONGESTION/ALLERGIES) methocarbamol 500 mg tablet 250 - 500 mg PO Q8H PRN (Reason: muscle spasm) cholecalciferol (vitamin D3) 25 mcg (1,000 unit) capsule 50 mcg PO DAILY topiramate 200 mg tablet 200 mg PO BID citalopram [Celexa] 40 mg tablet 40 mg PO DAILY Nurtec ODT 75 mg tablet,disintegrating 75 mg PO DAILY PRN Referrals / Follow Up: Care Physician,No Primary [Primary Care Provider] - Disposition Disposition (needs filled in before D/C Order can be placed): Home, Self Care Charges/Coding Visit Charges Inpatient E&M: 47476 Disch Hosp >30min 10/23/24 1541 <Electronically signed by Taye Delvalle MD> Cosigner Signature (if applicable): CC: Dr. Taye Delvalle MD; No Primary Care Physician~ Signed [facility] Work Phone: Evaluation + Plan note Future Appointments [facility] Evaluation noteNo assessment information available [facility] Work Phone: Evaluation note* Diagnosis Onset Date Resolution Status Facial droop acute Hypokalemia acute TIA (transient ischemic attack) acute Weakness acute [facility] Work Phone: Evaluation note* Diagnosis Onset Date Resolution Status Facial droop resolved Hypokalemia resolved TIA (transient ischemic attack) resolved Weakness resolved [facility] Work Phone: Evaluation note* Diagnosis Onset Date Resolution Status Acute sinusitis acute Impetigo acute Pain, dental acute [facility] Work Phone: Evaluation note* Diagnosis Onset Date Resolution Status Acute sinusitis acute Impetigo acute Pain, dental acute Gouty arthritis of left great toe acute Brain TIA acute Dysarthria acute Factor V Leiden chronic [facility] Work Phone: Evaluation note* Diagnosis Facial weakness- Primary Facial numbness Disturbance of skin sensation Sensory deficit, right Other general symptoms Memory change Memory loss Migraine without aura and without status migrainosus, not intractable Migraine without aura, without mention of intractable migraine without mention of status migrainosus Other fatigue Snoring Other dyspnea and respiratory abnormality Speech disturbance, unspecified type [facility] Diagnosis Chronic migraine without aura with status migrainosus, not intractable Chronic migraine without aura, without mention of intractable migraine with status migrainosus Snoring Other dyspnea and respiratory abnormality Other fatigue [facility]* Diagnosis 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 note* Diagnosis History of DVT of lower extremity- Primary Personal history of venous thrombosis and embolism documented in this encounter [facility] note* Diagnosis History of DVT of lower extremity- Primary Personal history of venous thrombosis and embolism History of embolic stroke Personal history of other disorders of nervous system and sense organs [facility] Diagnosis Transient speech disturbance- Primary Transient neurological symptoms Daytime sleepiness Snoring Other dyspnea and respiratory abnormality Tobacco use disorder [facility]* Diagnosis Acute cough- Primary Rhinosinusitis Unspecified sinusitis (chronic) [facility]* Diagnosis Acute cough [facility]* Diagnosis Acute cough- Primary Acute cough [facility]* Diagnosis Acute pain of left knee- Primary Acute pain of left knee [facility] Diagnosis Acute pain of left knee documented in [facility]* Diagnosis Migraine without aura and without status migrainosus, not intractable- Primary Migraine without aura, without mention of intractable migraine without mention of status migrainosus documented [facility]* Diagnosis Injury of right shoulder, initial encounter- Primary Injury of right shoulder, initial encounter [facility] Diagnosis Injury of right shoulder, initial encounter [facility] Diagnosis History of DVT of lower extremity- Primary Personal history of venous thrombosis and embolism Factor V Leiden (HCC) Primary hypercoagulable state Lupus anticoagulant disorder (HCC) Primary hypercoagulable state [facility] Diagnosis Lupus anticoagulant disorder (HCC)- Primary Primary hypercoagulable state [facility] Diagnosis COVID-19 virus infection- Primary [facility]* Diagnosis URI, acute- Primary Acute upper respiratory infections of unspecified site Acute cough URI, acute Acute upper respiratory infections of unspecified site Acute cough [facility] Diagnosis URI, acute Acute upper respiratory infections of unspecified site Acute cough [facility] Diagnosis Right wrist pain- Primary Pain in joint, forearm [facility] Diagnosis Chronic migraine without aura with status migrainosus, not intractable- Primary Chronic migraine without aura, without mention of intractable migraine with status migrainosus [facility] Diagnosis Abnormal finding on MRI of brain- Primary Nonspecific (abnormal) findings on radiological and other examination of skull and head Facial weakness Facial numbness Disturbance of skin sensation Speech disturbance, unspecified type Migraine without aura and without status migrainosus, not intractable Migraine without aura, without mention of intractable migraine without mention of status migrainosus History of TIA (transient ischemic attack) Transient ischemic attack (TIA), and cerebral infarction without residual deficits [facility] Diagnosis White matter abnormality on MRI of brain- Primary Nonspecific (abnormal) findings on radiological and other examination of skull and head Facial numbness Disturbance of skin sensation Facial weakness Sensory deficit, right Other general symptoms [facility] Diagnosis White matter abnormality on MRI of brain- Primary Nonspecific (abnormal) findings on radiological and other examination of skull and head Facial numbness Disturbance of skin sensation Facial weakness Sensory deficit, right Other general symptoms [facility] Diagnosis Abnormal finding on MRI of brain- Primary Nonspecific (abnormal) findings on radiological and other examination of skull and head [facility] Diagnosis Pain in joint, multiple sites- Primary Pain in right hip Pain in joint, pelvic region and thigh Sacroiliac pain Disorders of sacrum Right leg paresthesias Disturbance of skin sensation History of carpal tunnel syndrome Personal history of other disorders of nervous system and sense organs History of DVT (deep vein thrombosis) Personal history of venous thrombosis and embolism History of pulmonary embolism Personal history of pulmonary embolism Lupus anticoagulant disorder (HCC) Primary hypercoagulable state Livedo reticularis Pallor Rash and nonspecific skin eruption Rash and other nonspecific skin eruption [facility] Diagnosis Pain in joint, multiple sites Right leg paresthesias Disturbance of skin sensation [facility] Diagnosis Acute right ankle pain- Primary Acute right ankle pain [facility] Diagnosis Acute right ankle pain [facility] Diagnosis Chronic migraine without aura with status migrainosus, not intractable Chronic migraine without aura, without mention of intractable migraine with status migrainosus [facility] Narrative No data available for this section [facility] Hospital Discharge instructions Additional Instructions Please wear your Carlos wrap for padding and compression. Ice the area 2-3 times a day for the next 5 days to reduce pain and speed healing. Use crutches for weightbearing if needed and return to the ER should [facility] Hospital Discharge instructions No data available for this section [facility] Hospital Discharge instructions Additional Instructions Please continue to stretch and heat your neck to reduce pain and speed healing. Take the prescribed medications as directed to help control symptoms and return to the ER should you have any [facility] Work Phone: Hospital Discharge instructions Additional Instructions Your symptoms are consistent with a low back strain. Continue ice. You can use lidocaine patches or the Voltaren gel. It is important you follow-up with your pain management doctor and occupational health for reevaluation.[facility] Work Phone: Hospital Discharge instructions Additional Instructions Follow-up with primary care physician. If you do not have 1 follow-up with the 1 provided above. Follow-up with orthopedic physician. Tylenol as needed for pain. Wrist brace for comfort.[facility] Work Phone: Progress note No data available for this section [facility] Reason for referral (narrative)* Diagnostic Procedure Only (Urgent) - Closed Specialty Diagnoses / Procedures Referred By Don t Referred To Contact XR IMAGING Diagnoses Acute pain of left knee Procedures XR KNEE GENERAL 4V AP BOTH/PA BOTH/LAT/MERC LEFT RADIOLOGIC EXAM KNEE COMPLETE 4/MORE VIEWS Jay Delgado, MARLEEN.PLUCK SEPARATOR [address] [place] [address] [place] [address] Referral ID Status Reason Start Date Expiration Date V isits Requested Visits Authorized [id number] Closed Auto-Generate d Referral 04/10/2024 05/10/2025 1 1 [facility] for referral (narrative)* Diagnostic Procedure Only (Urgent) - Closed Specialty Diagnoses / Procedures Referred By Contac t Referred To Contact XR IMAGING Diagnoses Acute pain of left knee Procedures XR KNEE GENERAL 4V AP BOTH/PA BOTH/LAT/MERC LEFT RADIOLOGIC EXAM KNEE COMPLETE 4/MORE VIEWS Jay Delgado HAIR TINTER.PLUCK SEPARATOR [address] [place] [address] [place] [address] Referral ID Status Reason Start Date Expiration Date V isits Requested Visits Authorized [id number] Closed Auto-Generate d Referral 04/10/2024 05/10/2025 1 1 [facility] for referral (narrative)* Diagnostic Procedure Only (Urgent) - Closed Specialty Diagnoses / Procedures Referred By Contac t Referred To Contact XR IMAGING Diagnoses Injury of right shoulder, initial encounter Procedures XR SHOULDER GENERAL 3V OR MORE AP/TRUE AP/OTHER RIGHT RADEX SHOULDER COMPLETE MINIMUM 2 VIEWS Les Mckeon APRN.PLUCK SEPARATOR [address] [place] [address] [place] [address] Referral ID Status Reason Start Date Expiration Date V isits Requested Visits Authorized [id number] Closed Auto-Generate d Referral 05/24/2024 06/23/2025 1 1 [facility] for referral (narrative)* Diagnostic Procedure Only (Urgent) - Closed Specialty Diagnoses / Procedures Referred By Contac t Referred To Contact XR IMAGING Diagnoses Injury of right shoulder, initial encounter Procedures XR SHOULDER GENERAL 3V OR MORE AP/TRUE AP/OTHER RIGHT RADEX SHOULDER COMPLETE MINIMUM 2 VIEWS Les Mckeon APRN.PLUCK SEPARATOR [address] [place] [address] [place] [address] Referral ID Status Reason Start Date Expiration Date V isits Requested Visits Authorized [id number] Closed Auto-Generate d Referral 05/24/2024 06/23/2025 1 1 [facility] for referral (narrative)No reason for referral information [facility] Work Phone: Reason for visit Narrative* Diagnostic Procedure Only (Urgent) - Closed Specialty Diagnoses / Procedures Referred By Contac t Referred To Contact XR IMAGING Diagnoses Acute pain of left knee Procedures XR KNEE GENERAL 4V AP BOTH/PA BOTH/LAT/MERC LEFT RADIOLOGIC EXAM KNEE COMPLETE 4/MORE VIEWS Jay Delgado, HAIR TINTER.PLUCK SEPARATOR [address] [place] [address] [place] [address] Referral ID Status Reason Start Date Expiration Date V isits Requested Visits Authorized [id number] Closed Auto-Generate d Referral 04/10/2024 05/10/2025 1 1 [facility] for visit Narrative* Diagnostic Procedure Only (Urgent) - Closed Specialty Diagnoses / Procedures Referred By Contac t Referred To Contact XR IMAGING Diagnoses Injury of right shoulder, initial encounter Procedures XR SHOULDER GENERAL 3V OR MORE AP/TRUE AP/OTHER RIGHT RADEX SHOULDER COMPLETE MINIMUM 2 VIEWS Les Mckeon APRN.PLUCK SEPARATOR [address] [place] [address] [place] [address] Referral ID Status Reason Start Date Expiration Date V isits Requested Visits Authorized [id number] Closed Auto-Generate d Referral 05/24/2024 06/23/2025 1 1 [facility] for visit Narrative* Diagnostic Procedure Only (Urgent) - Closed Specialty Diagnoses / Procedures Referred By Contac t Referred To Contact XR IMAGING Diagnoses Right wrist pain Procedures XR WRIST GENERAL 3V PA/LAT/OBL RIGHT RADEX WRIST COMPLETE MINIMUM 3 VIEWS Jeovany Joseph PA-C [address] [facility] [address] [place] [address] Phone: tel: fax: [place] [address] Referral ID Status Reason Start Date Expiration Date V isits Requested Visits Authorized [id number] Closed Auto-Generate d Referral 07/29/2024 08/28/2025 1 1 [facility] for visit Narrative* MRI/CT (Routine) - Closed Specialty Diagnoses / Procedures Referred By Contac t Referred To Contact MR IMAGING Diagnoses Demyelinating disease of central nervous system (HCC) Procedures MRI CERVICAL SPINE WO/W IVCON MRI SPINAL CANAL CERVICAL W/O & W/CONTR Janet Madison, HAIR TINTER.PLUCK SEPARATOR [address] [address] Phone: tel: fax: [place] [address] Referral ID Status Reason Start Date Expiration Date V isits Requested Visits Authorized [id number] Closed Auto-Generate d Referral 12/18/2024 01/17/2025 1 1 [facility] for visit Narrative* Diagnostic Procedure Only (Routine) - Closed Specialty Diagnoses / Procedures Referred By Contac t Referred To Contact XR IMAGING Diagnoses Pain in joint, multiple sites Right leg paresthesias Procedures XR KNEE GENERAL 4V AP BOTH/PA BOTH/LAT/MERC RIGHT RADIOLOGIC EXAM KNEE COMPLETE 4/MORE VIEWS Pramod Gomez PA-C [address] [place] [address] Phone: tel: fax: [place] [address] Referral ID Status Reason Start Date Expiration Date V isits Requested Visits Authorized [id number] Closed Auto-Generate d Referral 01/02/2025 02/01/2026 1 1 [facility] for visit Narrative* Diagnostic Procedure Only (Urgent) - Closed Specialty Diagnoses / Procedures [facility] Diagnoses Acute right ankle pain Procedures XR ANKLE GENERAL 3V AP/LAT/OBL RIGHT RADEX ANKLE COMPLETE MINIMUM 3 VIEWS Moomaw, Jay, HAIR TINTER.PLUCK SEPARATOR [address] [place] [address] Phone: tel: fax: [place] [address] Referral ID Status Reason Start Date Expiration Date V isits Requested Visits Authorized [id number] Closed Auto-Generate d Referral 01/11/2025 02/10/2026 1 1 [facility] Summary Purpose Family History Relationship Condition Age at Onset Recorded Date/T carole Not Specified Malignant neoplasm Unknown Relationship Condition Age at Onset Recorded Date/T carole mother Cardiac disease Unknown Cerebrovascular accident (CVA) Unknown Diabetes mellitus Unknown Advance Directives Advance Directive Response Recorded Date/ Time Living Will No April 13 8:24pm Power of Pharmacy Benefits Coordinator No April 13, 2021 8:24pm Advance Directive Response Recorded Date/ Time Living Will No May 06, 022 11:35pm Power of Pharmacy Benefits Coordinator No May 06, 2022 11:35pm Advance Directive Response Recorded Date/ Time Living Will No March 15 8:38pm Power of Pharmacy Benefits Coordinator No March 15 023 8:38pm Advance Directive Response Recorded Date/ Time Living Will No April 29 023 9:11pm Power of Pharmacy Benefits Coordinator No April 29, 2023 9:11pm Advance Directive Response Recorded Date/ Time Living Will Yes July 18 9:42pm Power of Pharmacy Benefits Coordinator No July 18, 2023 9:42pm Advance Directive Response Recorded Date/ Time Living Will No August 29, 2023 10:15pm Power of Pharmacy Benefits Coordinator No August 28 10:15pm Advance Directive Response Recorded Date/ Time Living Will Yes August 30, 2023 1:00am Power of Pharmacy Benefits Coordinator No August 29 1:00am Advance Directive Response Recorded Date/ Time Living Will No August 17, 2024 4:09pm Power of Pharmacy Benefits Coordinator No August 17 4:09pm Advance Directive Response Recorded Date/ Time Living Will No August 17, 2024 5:09pm Do you have a Healthcare Power of Pharmacy Benefits Coordinator? No August 17, 2024 5:09pm Living Will No September 22, 2024 4:57pm Do you have a Healthcare Power of Pharmacy Benefits Coordinator? No September 22, 2024 4:57pm Advance Directive Response Recorded Date/ Time Living Will No August 17, 2024 5:09pm Do you have a Healthcare Power of Pharmacy Benefits Coordinator? No August 17, 2024 5:09pm Living Will No September 22, 2024 4:57pm Do you have a Healthcare Power of Pharmacy Benefits Coordinator? No September 22, 2024 4:57pm Do you have a Healthcare Power of Pharmacy Benefits Coordinator? No October 22, 2024 9:02pm Advance Directive Response Recorded Date/ Time Living Will No August 17, 2024 5:09pm Do you have a Healthcare Power of Pharmacy Benefits Coordinator? No August 17, 2024 5:09pm Living Will No September 22, 2024 4:57pm Do you have a Healthcare Power of Pharmacy Benefits Coordinator? No September 22, 2024 4:57pm Do you have a Healthcare Power of Pharmacy Benefits Coordinator? No October 22, 2024 11:05pm Chief Complaint and Reason for Visit Chief Complaint Other spondylosis wi th radiculopathy, cervical reg Other spondylosis with radiculopathy, cervical reg Chief Complaint Other spondylosis wi th radiculopathy, cervical reg Other spondylosis with radiculopathy, cervical reg RIGHT FOOT Chief Complaint TIA/CVA Reason for Visit Facial droop Hypokalemia TIA (transient ischemic attack) Weakness Chief Complaint TIA/CVA TIA/CVA COUGH/SORE THROAT FOOT Reason for Visit Facial droop Hypokalemia TIA (transient ischemic attack) Weakness Chief Complaint COUGH/SORE THROAT FOOT SORE THROAT SORE THROAT FACIAL PAIN/CONCERN FOR TOOTH/MOUTH INFECTION neck/shoulder/back Reason for Visit Acute sinusitis Impetigo Pain, dental Chief Complaint SORE THROAT SORE THROAT FACIAL PAIN/CONCERN FOR TOOTH/MOUTH INFECTION neck/shoulder/back SWOLLEN LFT FOOT TIA Reason for Visit Acute sinusitis Impetigo Pain, dental Gouty arthritis of left great toe Brain TIA Dysarthria Factor V Leiden Chief Complaint Admit Date SORE INSIDE OF LIP June 19, 2024 11 :18am BACK August 17, 2024 3:55 pm Reason for Visit Admit Date Impetigo June 19, 2024 11 :18am Chief Complaint Admit Date SORE INSIDE OF LIP June 19, 2024 11 :18am BACK August 17, 2024 3:55 pm ED FU LOWER BACK INJURY/SARA SERVICES August 23, 2024 9:00am LOWER BACK/2ND INJURY September 07, 2024 1 1:18am LUMBAR STRAIN/RX HERE September 20, 2024 1 :30pm right wrist September 22, 2024 4:4 9pm Reason for Visit Admit Date Impetigo June 19, 2024 11 :18am Acute lumbar myofascial strain August 9:00am Lumbar pain September 07, 2024 11: 18am Chief Complaint Admit Date BACK August 17, 2024 3:55 pm ED FU LOWER BACK INJURY/SARA SERVICES August 23, 2024 9:00am LOWER BACK/2ND INJURY September 07, 2024 1 1:18am right wrist September 22, 2024 4:4 9pm LUMBAR STRAIN/RX HERE October 14, 2024 1:30 pm L LEG WEAKNESS/QUINTANA/EXPRESSIVE APHASIA October 22, 2024 9:51pm Reason for Visit Admit Date Acute lumbar myofascial strain August 9:00am Lumbar pain September 07, 2024 11: 18am Anemia October 22, 2024 9:51p m Expressive aphasia October 22, 2024 9:51p m Headache October 22, 2024 9:51p m Left leg weakness October 22, 2024 9:51p m Chief Complaint Admit Date BACK August 17, 2024 3:55 pm ED FU LOWER BACK INJURY/SARA SERVICES August 23, 2024 9:00am LOWER BACK/2ND INJURY September 07, 2024 1 1:18am right wrist September 22, 2024 4:4 9pm LUMBAR STRAIN/RX HERE October 14, 2024 1:30 pm L LEG WEAKNESS/QUINTANA/EXPRESSIVE APHASIA October 22, 2024 9:51pm L LEG WEAKNESS/QUINTANA/EXPRESSIVE APHASIA October 23, 2024 3:35pm Reason for Referral Specialty Diagnoses / Procedures Referred By Contac t Referred To Contact Diagnoses Migraine without aura and without status migrainosus, [place] [address] [place] [address] Referral ID Status Reason Start Date Expiration Date V isits Requested Visits Authorized [id number] Pending Review 04/29/2024 06/28/2024 1 1 Specialty Diagnoses / Procedures Referred By Contac t Referred To Contact Diagnoses Nryhiq-gq-gpfgvguwn syndrome (HCC) Procedures CONSULT TO HEMATOLOGY/ONCOLOGY OFFICE/OUTPATIENT [facility] 60 MINUTES Elizabeth Marques MD [address] [place] [address] Referral ID Status Reason Start Date Expiration Date Visits Requested Visits Authorized [id number] Authorized PCP Requested Referral 10/25/2023 2024 1 1 Specialty Diagnoses / Procedures Referred By Contac t Referred To Contact Neurology Diagnoses Facial weakness Facial numbness Speech disturbance, unspecified type Procedures CONSULT TO NEUROLOGY OFFICE/OUTPATIENT NEW HIGH MDM 60 MINUTES Janet Fernandez, MARLEEN.PLUCK SEPARATOR [address] [place] [address] Referral ID Status Reason Start Date Expiration Date Visits Requested Visits Authorized [id number] Authorized PCP Requested Referral 09/17/2023 09/16/2024 1 1 Specialty Diagnoses / Procedures Referred By Don joe Referred To Contact Janet Fernandez APRN.PLUCK SEPARATOR [address] [place] [address] Referral ID Status Reason Start Date Expiration Date Visits Re quested Visits Authorized [id number] Closed 1 1 Specialty Diagnoses / Procedures Referred By Don joe Referred To Contact [facility] [place] Diagnoses Snoring Other fatigue Procedures HOME SLEEP APNEA TEST (HSAT) SLEEP STD AIRFLOW HRT RATE&O2 SAT EFFORT UNATT Janet Fernandez, MARLEEN.PLUCK SEPARATOR [address] [place] [address] [facility] [address] [place] [address] Referral ID Status Reason Start Date Expiration Date Visits Requested Visits Authorized [id number] Pending Review Auto-Generat ed Referral 09/14/2023 09/13/2024 1 1 Additional Source Comments INFORMATION SOURCE (unrecogn ized section and content) DATE CREATED AUTHOR 04/26/2020 [facility] DATE CREATED AUTHOR AUTHOR'S ORGANIZ ATION 05/18/2023 [facility] DATE CREATED AUTHOR AUTHOR'S ORGANIZ ATION 06/01/2023 [facility] ([place]) DATE CREATED AUTHOR AUTHOR'S ORGANIZ ATION 08/30/2024 [facility] DATE CREATED AUTHOR AUTHOR'S ORGANIZ ATION 12/30/2024 [facility] DATE CREATED AUTHOR AUTHOR'S ORGANIZ ATION 01/02/2025 [facility] DATE CREATED AUTHOR AUTHOR'S ORGANIZ ATION 01/18/2025 [facility] DATE CREATED AUTHOR AUTHOR'S ORGANIZ ATION 01/19/2025 [facility] Goals (unrecognized section and content) Goals may be documented in a n alternate sectionGoals may be documented in an alternate section No data available for this section No data available for this section No data available for this sectionGoals may be documented in an alternate sectionGoals may be documented in an alternate sectionGoals may be documented in an alternate sectionGoals may be documented in an alternate sectionGoals may be documented in an alternate sectionGoals may be documented in an alternate sectionGoals may be documented in an alternate section Patient Care team informatio n (unrecognized section and content) Team Status: Active Member Role Status Dates Dilma Gonzalez BOOKING MANAGER, BOOKING MANAGER-C Family Provider Active BOOKING MANAGERSandra Tripp , BOOKING MANAGER-C Primary Care Provider Activ e Team Status: Active Member Role Status Dates BOOKING MANAGERSandra Tripp , BOOKING MANAGER-C Primary Care Provider Activ e Dr. Jeremy Gerard , DO Emergency Provider Active Dr. Bridgett Ponce MD Admit Provider, Attending Prov ider Active Team Status: Active Member Role Status Dates NP. Neli Tripp , BOOKING MANAGER-C Primary Care Provider Activ e Dr. Jeremy Gerard , DO Emergency Provider Active Dr. Bridgett Ponce MD Admit Provider, Other Provider Active Dr. Lucina Barahona MD Attending Provider, Other Provid er Active Team Status: Active Member Role Status Dates NP. Neli Tripp , BOOKING MANAGER-C Primary Care Provider Activ e Dr. Jan Ruby MD Attending Provider Active Team Status: Inactive Member Role Status Dates 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 Neli Tripp , BOOKING MANAGER-C Primary Care Provider, Refe rring Provider Active Torres ROSADO, PA Attending Provider Active Team Status: Inactive Member Role Status Dates NP. Neli Tripp , BOOKING MANAGER-C Primary Care Provider Activ e Dr. Jeremy Gerard , DO Emergency Provider Active Dr. Bridgett Ponce MD Admit Provider, Other Provider Active Dr. Lucina Barahona MD Attending Provider Active Team Status: Inactive Member Role Status Dates BOOKING MANAGERSandra Tripp , BOOKING MANAGER-C Primary Care Provider Activ e Dr. Ck Matias , DO Emergency Provider Active Team Status: Active Member Role Status Dates BOOKING MANAGERSandra Tripp , BOOKING MANAGER-C Primary Care Provider Activ e Torres ROSADO, PA Attending Provider Active Team Status: Inactive Member Role Status Dates 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 Neli Ungerer , BOOKING MANAGER-C Primary Care Provider, Refe rring Provider Active Jarrod Acosta PA, PA Attending Provider Active Team Status: Inactive Member Role Status Dates 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 Neli Laloerer , BOOKING MANAGER-C Primary Care Provider, Refe rring Provider Active Katheryn Katz , BOOKING MANAGER-C Attending Provider Active Team Status: Inactive Member Role Status Dates 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 Neli Ungerer , BOOKING MANAGER-C Primary Care Provider Activ e Dr. Ck Matias , DO Attending Provider, Emergency P rovider Active Team Status: Inactive Member Role Status Dates 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 Neli Ungerer , BOOKING MANAGER-C Primary Care Provider Activ e Dr. Damion Saucedo , DO Emergency Provider Active Team Status: Inactive Member Role Status Dates 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 Neli Laloerer , BOOKING MANAGER-C Primary Care Provider Activ e Dr. Damion Saucedo , DO Attending Provider, Emergency Pr ovider Active Team Status: Active Member Role Status Dates 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 Neli Mayerer , BOOKING MANAGER-C Primary Care Provider Activ e Dr. Axel Kaur MD Emergency Provider Active Dr. Bridgett Ponce MD Admit Provider, Attending Prov ider Active Team Status: Inactive Member Role Status Dates 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 Neli Mayerer , BOOKING MANAGER-C Primary Care Provider Activ e Dr. Axel Kaur MD Emergency Provider Active Dr. Bridgett Ponce MD Admit Provider, Other Provider Active Mohit Duffy MD Other Provider Active Dr. Mark Ppo MD Other Provider Active Anna Arenas MD Other Provider Active Dr. Gracie Bains DO Other Provider Active Dr. Cathy Harding MD Other Provider Active Dr. Brenden Gann MD Other Provider Active Dr. Edie Paredes MD Other Provider Active Dr. Aly Soto MD Other Provider Active Dr. Yon Ramires MD Other Provider Active Alesha Liu MD Other Provider Active Dr. Antwon Hopson MD Other Provider Active Dr. Amelie Lopez MD Other Provider Active Dr. Pierre Melton MD Other Provider Active Dr. Dayanara Scott MD Other Provider Active Dr. Hunter Bennett MD Other Provider Active Dr. Hollis Núñez MD Other Provider Active Dr. Cristiano Cohn MD Other Provider Active Dr. Tatyana Harden MD Other Provider Active Elizabeth Herrera MD Other Provider Active Dr. Jeovany Tereletsky , DO Attending Provider Active Infrastructure Solutions Architect Relationship Specialty Start Date End Date Neli Tripp, PLUCK SEPARATOR [address] [place] [address] PCP - General Family Medicine 03/19/24 Infrastructure Solutions Architect Relationship Specialty Start Date End Date Neli Tripp, PLUCK SEPARATOR [address] [place] [address] PCP - General Family Medicine 03/19/24 Infrastructure Solutions Architect Relationship Specialty Start Date End Date Neli Tripp, PLUCK SEPARATOR [address] [place] [address] PCP - General Family Medicine 03/19/24 Infrastructure Solutions Architect Relationship Specialty Start Date End Date Neli Tripp, PLUCK SEPARATOR [address] [place] [address] PCP - General Family Medicine 03/19/24 Infrastructure Solutions Architect Relationship Specialty Start Date End Date Neli Tripp, PLUCK SEPARATOR [address] [place] [address] PCP - General Family Medicine 03/19/24 Infrastructure Solutions Architect Relationship Specialty Start Date End Date Neli Tripp, PLUCK SEPARATOR [address] [place] [address] PCP - General Family Medicine 03/19/24 Infrastructure Solutions Architect Relationship Specialty Start Date End Date Neli Tripp, PLUCK SEPARATOR [address] [place] [address] PCP - General Family Medicine 03/19/24 Infrastructure Solutions Architect Relationship Specialty Start Date End Date Neli Tripp, PLUCK SEPARATOR [address] [place] [address] PCP - General Family Medicine 03/19/24 Infrastructure Solutions Architect Relationship Specialty Start Date End Date Neli Tripp CNP [address] [place] [address] PCP - General Family Medicine 03/19/24 Infrastructure Solutions Architect Relationship Specialty Start Date End Date Neli Tripp CNP [address] [place] [address] PCP - General Family Medicine 03/19/24 Infrastructure Solutions Architect Relationship Specialty Start Date End Date Neli Tripp CNP [address] [place] [address] PCP - General Family Medicine 03/19/24 Infrastructure Solutions Architect Relationship Specialty Start Date End Date Neli Tripp CNP [address] [place] [address] PCP - General Family Medicine 03/19/24 Infrastructure Solutions Architect Relationship Specialty Start Date End Date Neli Tripp CNP [address] [place] [address] PCP - General Family Medicine 03/19/24 Team Status: Active Member Role Status Dates NP. Neli Tripp NP-C Primary Care Provider Activ e Team Status: Inactive Member Role Status Dates NP. Neli Tripp NP-Radha Primary Care Provider Activ e Start: June 19, 2024 End: June 19, 2024 ISABEL Reynaga Referring Provider Active Start: June 19, 2024 End: June 19, 2024 Torres ROSADO, PA Attending Provider Active Start: June 19, 2024 End: June 19, 2024 Team Status: Inactive Member Role Status Dates NP. Neli Tripp NP-Radha Primary Care Provider Activ e Start: August 17, 2024 End: August 17, 2024 Dr. Axel Kaur MD Emergency Provider Active Sta rt: August 17, 2024 End: August 17, 2024 Infrastructure Solutions Architect Relationship Specialty Start Date End Date Neli Tripp CNP [address] [facility] [address] [place] [address] PCP - General Family Medicine 03/19/24 Team Status: Active Member Role Status Dates No Primary Care Physician Primary Care Provider Active Team Status: Inactive Member Role Status Dates NP. Neli Tripp BOOKING MANAGER-C Primary Care Provider Activ e Start: August 17, 2024 End: August 17, 2024 Dr. Axel Kaur MD Attending Provider Active Sta rt: August 17, 2024 End: August 17, 2024 Dr. Axel Kaur MD Emergency Provider Active Sta rt: August 17, 2024 End: August 17, 2024 Team Status: Inactive Member Role Status Dates NP. Neli Tripp BOOKING MANAGER-C Primary Care Provider Activ e Start: August 23, 2024 End: August 23, 2024 NP. Neli Tripp BOOKING MANAGER-C Referring Provider Active Start: August 23, 2024 End: August 23, 2024 Jarrod ROSADO PA Attending Provider Active Sta rt: August 23, 2024 End: August 23, 2024 Team Status: Inactive Member Role Status Dates NP. Neli Tripp NP-C Primary Care Provider Activ e Start: September 07, 2024 End: September 07, 2024 NP. Neli Tripp NP-C Referring Provider Active Start: September 07, 2024 End: September 07, 2024 Katheryn Katz NP-C Attending Provider Active Start: September 07, 2024 End: September 07, 2024 Team Status: Active Member Role Status Dates Jarrod ROSADO PA Attending Provider Active Sta rt: September 20, 2024 Jarrod ROASDO PA Referring Provider Active Sta rt: September 20, 2024 No Primary Care Physician Primary Care Provider Active Start: September 20, 2024 Team Status: Inactive Member Role Status Dates No Primary Care Physician Primary Care Provider Active Start: September 22, 2024 End: September 22, 2024 Dr. Shilo Dunne , Emergency Provider Activ e Start: September 22, 2024 End: September 22, 2024 Infrastructure Solutions Architect Relationship Specialty Start Date End Date Neli Tripp, PLUCK SEPARATOR [address] [place] [address] PCP - General Family Medicine 03/19/24 Team Status: Inactive Member Role Status Dates Neli Tripp BOOKING MANAGER-C Primary Care Provider Active Start: August 17, 2024 End: August 17, 2024 Dr. Axel Kaur MD Attending Provider Active Sta rt: August 17, 2024 End: August 17, 2024 Dr. Axel Kaur MD Emergency Provider Active Sta rt: August 17, 2024 End: August 17, 2024 Team Status: Inactive Member Role Status Dates Neli Tripp BOOKING MANAGER-C Primary Care Provider Active Start: August 23, 2024 End: August 23, 2024 Neli Tripp BOOKING MANAGER-C Referring Provider Active Start: August 23, 2024 End: August 23, 2024 ALONZO Crabtree Attending Provider Active Sta rt: August 23, 2024 End: August 23, 2024 Team Status: Inactive Member Role Status Dates Neli Tripp BOOKING MANAGER-C Primary Care Provider Active Start: September 07, 2024 End: September 07, 2024 Neli Tripp BOOKING MANAGER-C Referring Provider Active Start: September 07, 2024 End: September 07, 2024 Katheryn Katz NP-C Attending Provider Active Start: September 07, 2024 End: September 07, 2024 Team Status: Inactive Member Role Status Dates No Primary Care Physician Primary Care Provider Active Start: September 22, 2024 End: September 22, 2024 Dr. Shilo Dunne , DO Attending Provider Activ e Start: September 22, 2024 End: September 22, 2024 Dr. Shilo Dunne , DO Emergency Provider Activ e Start: September 22, 2024 End: September 22, 2024 Team Status: Active Member Role Status Dates Jarrod ROSADO PA Attending Provider Active Sta rt: October 14, 2024 Jarrod ROSADO PA Referring Provider Active Sta rt: October 14, 2024 No Primary Care Physician Primary Care Provider Active Start: October 14, 2024 Team Status: Active Member Role Status Dates No Primary Care Physician Primary Care Provider Active Start: October 22, 2024 Dr. Jeremy Gerard , DO Emergency Provider Active Start : October 22, 2024 Dr. Farhana Harden , DO Admit Provider Active Start : October 22, 2024 Dr. Farhana Harden DO Attending Provider Active S tart: October 22, 2024 Team Status: Inactive Member Role Status Dates No Primary Care Physician Primary Care Provider Active Start: October 22, 2024 End: October 23, 2024 Dr. Jeremy Gerard , Emergency Provider Active Start : October 22, 2024 End: October 23, 2024 Dr. Farhana Harden , DO Admit Provider Active Start : October 22, 2024 End: October 23, 2024 Dr. Farhana Harden , Other Provider Active Start : October 22, 2024 End: October 23, 2024 Dr. Taye Delvalle MD Attending Provider Active Start: October 22, 2024 End: October 23, 2024 Team Status: Active Member Role Status Dates No Primary Care Physician Primary Care Provider Active Start: October 23, 2024 Dr. Jan Ruby MD Attending Provider Active S tart: October 23, 2024 Team Status: Active Member Role Status Dates No Primary Care Physician Primary Care Provider Active Start: October 23, 2024 Dr. Jeremy Gerard DO Emergency Provider Active Start : October 23, 2024 Dr. Farhana Harden DO Admit Provider Active Start : October 23, 2024 Dr. Farhana Harden DO Other Provider Active Start : October 23, 2024 Dr. Taye Delvalle MD Attending Provider Active Start: October 23, 2024 Dr. Taye Delvalle MD Other Provider Active Sta rt: October 23, 2024 Infrastructure Solutions Architect Relationship Specialty Start Date End Date Neli Tripp PLUCK SEPARATOR [address] [place] [address] PCP - General Family Medicine 03/19/24 Infrastructure Solutions Architect Relationship Specialty Start Date End Date Neli Tripp PLUCK SEPARATOR [address] [place] [address] PCP - General Family Medicine 03/19/24 Infrastructure Solutions Architect Relationship Specialty Start Date End Date Neli Tripp CNP [address] [place] [address] PCP - General Family Medicine 03/19/24 Infrastructure Solutions Architect Relationship Specialty Start Date End Date Neli Tripp CNP [address] [place] [address] PCP - General Family Medicine 03/19/24 Infrastructure Solutions Architect Relationship Specialty Start Date End Date Neli Tripp CNP [address] [place] [address] PCP - General Family Medicine 03/19/24 Infrastructure Solutions Architect Relationship Specialty Start Date End Date Neli Tripp CNP [address] [place] [address] PCP - General Family Medicine 03/19/24 Infrastructure Solutions Architect Relationship Specialty Start Date End Date Neli Tripp CNP [address] [place] [address] PCP - General Family Medicine 03/19/24 Infrastructure Solutions Architect Relationship Specialty Start Date End Date Colton Kunz PA-C [address] [place], [place] [address] PCP - General Family Medicine 01/02/25 Infrastructure Solutions Architect Relationship Specialty Start Date End Date Colton Kunz PA-C [address] [place], [place] [address] PCP - General Family Medicine 01/02/25 Infrastructure Solutions Architect Relationship Specialty Start Date End Date Colton Kunz PA-C [address] [place] [address] PCP - General Family Medicine 01/02/25 Infrastructure Solutions Architect Relationship Specialty Start Date End Date Colton Kunz PA-C [address] [place] [address] PCP - General Family Medicine 01/02/25 Infrastructure Solutions Architect Relationship Specialty Start Date End Date Colton Kunz PA-C [address] [place] [address] PCP - General Family Medicine 01/02/25 Infrastructure Solutions Architect Relationship Specialty Start Date End Date Colton Kunz PA-C [address] [place] [address] PCP - General Family Medicine 01/02/25 Source Comments (unrecognize d section and content) In the event this informatio n is protected by the Federal Confidentiality of Alcohol and Drug Abuse Patient Records regulations: The Federal rules restrict any use of the information to criminally investigate or prosecute any alcohol or drug abuse patient.[facility] the event this information is protected by the Federal Confidentiality of Alcohol and Drug Abuse Patient Records regulations: The Federal rules restrict any use of the information to criminally investigate or prosecute any alcohol or drug abuse patient.[facility]In the event this information is protected by the Federal Confidentiality of Alcohol and Drug Abuse Patient Records regulations: The Federal rules restrict any use of the information to criminally investigate or prosecute any alcohol or drug abuse patient.[facility] HospitalIn the event this information is protected by the Federal Confidentiality of Alcohol and Drug Abuse Patient Records regulations: The Federal rules restrict any use of the information to criminally investigate or prosecute any alcohol or drug abuse patient.[facility] HospitalIn the event this information is protected by the Federal Confidentiality of Alcohol and Drug Abuse Patient Records regulations: The Federal rules restrict any use of the information to criminally investigate or prosecute any alcohol or drug abuse patient.[facility] HospitalIn the event this information is protected by the Federal Confidentiality of Alcohol and Drug Abuse Patient Records regulations: The Federal rules restrict any use of the information to criminally investigate or prosecute any alcohol or drug abuse patient.[facility] HospitalIn the event this information is protected by the Federal Confidentiality of Alcohol and Drug Abuse Patient Records regulations: The Federal rules restrict any use of the information to criminally investigate or prosecute any alcohol or drug abuse patient.[facility] HospitalIn the event this information is protected by the Federal Confidentiality of Alcohol and Drug Abuse Patient Records regulations: The Federal rules restrict any use of the information to criminally investigate or prosecute any alcohol or drug abuse patient.[facility] HospitalIn the event this information is protected by the Federal Confidentiality of Alcohol and Drug Abuse Patient Records regulations: The Federal rules restrict any use of the information to criminally investigate or prosecute any alcohol or drug abuse patient.[facility] HospitalIn the event this information is protected by the Federal Confidentiality of Alcohol and Drug Abuse Patient Records regulations: The Federal rules restrict any use of the information to criminally investigate or prosecute any alcohol or drug abuse patient.[facility] HospitalIn the event this information is protected by the Federal Confidentiality of Alcohol and Drug Abuse Patient Records regulations: The Federal rules restrict any use of the information to criminally investigate or prosecute any alcohol or drug abuse patient.[facility] HospitalIn the event this information is protected by the Federal Confidentiality of Alcohol and Drug Abuse Patient Records regulations: The Federal rules restrict any use of the information to criminally investigate or prosecute any alcohol or drug abuse patient.[facility] HospitalIn the event this information is protected by the Federal Confidentiality of Alcohol and Drug Abuse Patient Records regulations: The Federal rules restrict any use of the information to criminally investigate or prosecute any alcohol or drug abuse patient.[facility] HospitalIn the event this information is protected by the Federal Confidentiality of Alcohol and Drug Abuse Patient Records regulations: The Federal rules restrict any use of the information to criminally investigate or prosecute any alcohol or drug abuse patient.[facility] HospitalIn the event this information is protected by the Federal Confidentiality of Alcohol and Drug Abuse Patient Records regulations: The Federal rules restrict any use of the information to criminally investigate or prosecute any alcohol or drug abuse patient.[facility] HospitalIn the event this information is protected by the Federal Confidentiality of Alcohol and Drug Abuse Patient Records regulations: The Federal rules restrict any use of the information to criminally investigate or prosecute any alcohol or drug abuse patient.[facility] HospitalIn the event this information is protected by the Federal Confidentiality of Alcohol and Drug Abuse Patient Records regulations: The Federal rules restrict any use of the information to criminally investigate or prosecute any alcohol or drug abuse patient.[facility] HospitalIn the event this information is protected by the Federal Confidentiality of Alcohol and Drug Abuse Patient Records regulations: The Federal rules restrict any use of the information to criminally investigate or prosecute any alcohol or drug abuse patient.[facility] HospitalIn the event this information is protected by the Federal Confidentiality of Alcohol and Drug Abuse Patient Records regulations: The Federal rules restrict any use of the information to criminally investigate or prosecute any alcohol or drug abuse patient.[facility] HospitalIn the event this information is protected by the Federal Confidentiality of Alcohol and Drug Abuse Patient Records regulations: The Federal rules restrict any use of the information to criminally investigate or prosecute any alcohol or drug abuse patient.[facility] HospitalIn the event this information is protected by the Federal Confidentiality of Alcohol and Drug Abuse Patient Records regulations: The Federal rules restrict any use of the information to criminally investigate or prosecute any alcohol or drug abuse patient.[facility] HospitalIn the event this information is protected by the Federal Confidentiality of Alcohol and Drug Abuse Patient Records regulations: The Federal rules restrict any use of the information to criminally investigate or prosecute any alcohol or drug abuse patient.[facility] HospitalIn the event this information is protected by the Federal Confidentiality of Alcohol and Drug Abuse Patient Records regulations: The Federal rules restrict any use of the information to criminally investigate or prosecute any alcohol or drug abuse patient.[facility] HospitalIn the event this information is protected by the Federal Confidentiality of Alcohol and Drug Abuse Patient Records regulations: The Federal rules restrict any use of the information to criminally investigate or prosecute any alcohol or drug abuse patient.[facility] HospitalIn the event this information is protected by the Federal Confidentiality of Alcohol and Drug Abuse Patient Records regulations: The Federal rules restrict any use of the information to criminally investigate or prosecute any alcohol or drug abuse patient.[facility] HospitalIn the event this information is protected by the Federal Confidentiality of Alcohol and Drug Abuse Patient Records regulations: The Federal rules restrict any use of the information to criminally investigate or prosecute any alcohol or drug abuse patient.[facility] HospitalIn the event this information is protected by the Federal Confidentiality of Alcohol and Drug Abuse Patient Records regulations: The Federal rules restrict any use of the information to criminally investigate or prosecute any alcohol or drug abuse patient.[facility] HospitalIn the event this information is protected by the Federal Confidentiality of Alcohol and Drug Abuse Patient Records regulations: The Federal rules restrict any use of the information to criminally investigate or prosecute any alcohol or drug abuse patient.[facility] HospitalIn the event this information is protected by the Federal Confidentiality of Alcohol and Drug Abuse Patient Records regulations: The Federal rules restrict any use of the information to criminally investigate or prosecute any alcohol or drug abuse patient.[facility] HospitalIn the event this information is protected by the Federal Confidentiality of Alcohol and Drug Abuse Patient Records regulations: The Federal rules restrict any use of the information to criminally investigate or prosecute any alcohol or drug abuse patient.[facility] HospitalIn the event this information is protected by the Federal Confidentiality of Alcohol and Drug Abuse Patient Records regulations: The Federal rules restrict any use of the information to criminally investigate or prosecute any alcohol or drug abuse patient.[facility] HospitalIn the event this information is protected by the Federal Confidentiality of Alcohol and Drug Abuse Patient Records regulations: The Federal rules restrict any use of the information to criminally investigate or prosecute any alcohol or drug abuse patient.[facility] HospitalIn the event this information is protected by the Federal Confidentiality of Alcohol and Drug Abuse Patient Records regulations: The Federal rules restrict any use of the information to criminally investigate or prosecute any alcohol or drug abuse patient.[facility] HospitalIn the event this information is protected by the Federal Confidentiality of Alcohol and Drug Abuse Patient Records regulations: The Federal rules restrict any use of the information to criminally investigate or prosecute any alcohol or drug abuse patient.[facility] HospitalIn the event this information is protected by the Federal Confidentiality of Alcohol and Drug Abuse Patient Records regulations: The Federal rules restrict any use of the information to criminally investigate or prosecute any alcohol or drug abuse patient.[facility] HospitalIn the event this information is protected by the Federal Confidentiality of Alcohol and Drug Abuse Patient Records regulations: The Federal rules restrict any use of the information to criminally investigate or prosecute any alcohol or drug abuse patient.[facility] HospitalIn the event this information is protected by the Federal Confidentiality of Alcohol and Drug Abuse Patient Records regulations: The Federal rules restrict any use of the information to criminally investigate or prosecute any alcohol or drug abuse patient.[facility] HospitalIn the event this information is protected by the Federal Confidentiality of Alcohol and Drug Abuse Patient Records regulations: The Federal rules restrict any use of the information to criminally investigate or prosecute any alcohol or drug abuse patient.[facility] HospitalIn the event this information is protected by the Federal Confidentiality of Alcohol and Drug Abuse Patient Records regulations: The Federal rules restrict any use of the information to criminally investigate or prosecute any alcohol or drug abuse patient.[facility] HospitalIn the event this information is protected by the Federal Confidentiality of Alcohol and Drug Abuse Patient Records regulations: The Federal rules restrict any use of the information to criminally investigate or prosecute any alcohol or drug abuse patient.[facility] HospitalIn the event this information is protected by the Federal Confidentiality of Alcohol and Drug Abuse Patient Records regulations: The Federal rules restrict any use of the information to criminally investigate or prosecute any alcohol or drug abuse patient.[facility] HospitalIn the event this information is protected by the Federal Confidentiality of Alcohol and Drug Abuse Patient Records regulations: The Federal rules restrict any use of the information to criminally investigate or prosecute any alcohol or drug abuse patient.[facility] HospitalIn the event this information is protected by the Federal Confidentiality of Alcohol and Drug Abuse Patient Records regulations: The Federal rules restrict any use of the information to criminally investigate or prosecute any alcohol or drug abuse patient.[facility] HospitalIn the event this information is protected by the Federal Confidentiality of Alcohol and Drug Abuse Patient Records regulations: The Federal rules restrict any use of the information to criminally investigate or prosecute any alcohol or drug abuse patient.[facility] HospitalIn the event this information is protected by the Federal Confidentiality of Alcohol and Drug Abuse Patient Records regulations: The Federal rules restrict any use of the information to criminally investigate or prosecute any alcohol or drug abuse patient.[facility] HospitalIn the event this information is protected by the Federal Confidentiality of Alcohol and Drug Abuse Patient Records regulations: The Federal rules restrict any use of the information to criminally investigate or prosecute any alcohol or drug abuse patient.[facility] HospitalIn the event this information is protected by the Federal Confidentiality of Alcohol and Drug Abuse Patient Records regulations: The Federal rules restrict any use of the information to criminally investigate or prosecute any alcohol or drug abuse patient.[facility] HospitalIn the event this information is protected by the Federal Confidentiality of Alcohol and Drug Abuse Patient Records regulations: The Federal rules restrict any use of the information to criminally investigate or prosecute any alcohol or drug abuse patient.[facility] HospitalIn the event this information is protected by the Federal Confidentiality of Alcohol and Drug Abuse Patient Records regulations: The Federal rules restrict any use of the information to criminally investigate or prosecute any alcohol or drug abuse patient.[facility] HospitalIn the event this information is protected by the Federal Confidentiality of Alcohol and Drug Abuse Patient Records regulations: The Federal rules restrict any use of the information to criminally investigate or prosecute any alcohol or drug abuse patient.[facility] HospitalIn the event this information is protected by the Federal Confidentiality of Alcohol and Drug Abuse Patient Records regulations: The Federal rules restrict any use of the information to criminally investigate or prosecute any alcohol or drug abuse patient.[facility] Reason for Visit (unrecogniz ed section and content) Reason Comments New Patient Specialty Diagnoses / Procedures Referred By Don t Referred To Contact Diagnoses White matter abnormality on MRI of brain Facial numbness Facial weakness Sensory deficit, right Procedures CONSULT TO [facility] OFFICE/OUTPATIENT [facility] 60 MINUTES Janet Fernandez APRN.PLUCK SEPARATOR [address] [address] Phone: tel: fax: Referral ID Status Reason Start Date Expiration Date V isits Requested Visits Authorized [id number] Closed PCP Requested Referral 12/05/2024 12/05/2025 1 1 Specialty Diagnoses / Procedures Referred By Contac t Referred To Contact Diagnoses [id number] syndrome (HCC) Procedures CONSULT TO HEMATOLOGY/ONCOLOGY OFFICE/OUTPATIENT [facility] 60 MINUTES Elizabeth Marques MD [address] [place] [id number] Referral ID Status Reason Start Date Expiration Date V isits Requested Visits Authorized [id number] Closed PCP Requested Referral 10/25/2023 2024 1 1 Reason Comments Referral Request Reason Comments Insurance Authorization Authorization fo r MRI received. Auth # [id number] Reason Comments Established Patient Follow Up Reason Comments Migraine Specialty Diagnoses / Procedures Referred By Contac t Referred To Contact Diagnoses Migraine without status migrainosus, not intractable, unspecified migraine type Procedures [facility]/OUTPATIENT [facility] 60-74 MINUTES Janet Fernandez, MARLEEN.PLUCK SEPARATOR [address] [place] [id number] Referral ID Status Reason Start Date Expiration Date V isits Requested Visits Authorized [id number] Closed PCP Requested Referral 05/31/2023 05/30/2024 1 1 Reason Comments Consult Reason Comments New Patient Specialty Diagnoses / Procedures Referred By Contac t Referred To Contact Neurology Diagnoses Facial weakness Facial numbness Speech disturbance, unspecified type Procedures CONSULT TO NEUROLOGY OFFICE/OUTPATIENT [facility] 60 MINUTES Janet Fernandez APRN.PLUCK SEPARATOR [address] [place] [address] Referral ID Status Reason Start Date Expiration Date V isits Requested Visits Authorized [id number] Closed PCP Requested Referral 09/17/2023 09/16/2024 1 1 Reason Comments Follow Up Reason Comments Results Reason Comments Cough Cough, sinus, chest congestion and QUINTANA x 2 weeks Reason Comments Cough Chest congestion x 1 0 days, took meds has had no improvement , heaviness in chest Reason Comments Knee Injury L knee injury x1 day Reason Comments Medication Authorization Reason Comments Shoulder Injury Ran shoulder area in to steel outside house door, LROM, pain,x 1 day Reason Comments Established Patient Reason Comments Fatigue Sneezing, QUINTANA, sore t hroat x x 6 days Reason Comments Cough Chest congestion, raciel dy aches, deep cough, hurts chest, fatigue,SOB x 1 dayExposed to Flu A Reason Comments right hand and wrist pain Injured it yes terday shoveling snow Reason Comments Refill Request Reason Comments Migraine Reason Comments Established Patient Reason Comments Established Patient Follow-Up Reason Comments Joint Pain Edema Reason Comments right ankle hurts X 5 days-cannot reca ll an injury Reason Onset Date Comments Refill Request 01/15/2025 FOR RECORDS PERTAINING TO PATIENTS WHO ARE [...] BE BASED ON THE PRIMARY CLINICAL RECORDS. [employer] [facility]. provides no warranty or guarantee of the accuracy or completeness of information in this document.
== END 2025-01-23 04:10 | disposition home or self-care (01) ==
PROVIDERS: Emergency Provider Emergency Medicine; PCP Family Medicine; Visit Provider Emergency Medicine
DX: S76.011A Strain of muscle, fascia and tendon of right hip, initial encounter (principal); F17.220 Nicotine dependence, chewing tobacco, uncomplicated; F17.210 Nicotine dependence, cigarettes, uncomplicated; Z86.73 Personal history of transient ischemic attack (TIA), and cerebral infarction without residual deficits; F41.8 Other specified anxiety disorders; Z79.899 Other long term (current) drug therapy; Z79.01 Long term (current) use of anticoagulants; F17.290 Nicotine dependence, other tobacco product, uncomplicated
CPT/HCPCS: 96372; 99282

== ENCOUNTER 2025-01-30 09:29 | Emergency (ER) | payer MEDICAID, SELFPAY ==
[2025-01-30 09:29] VITALS: BP 119/81; PULSE 97; RESP 14; TEMP 36.2; O2SAT 100; BMI 35.5
--- NOTE | 2025-01-30 10:06 | ED.VIS.LOWEX ---
HPI History of Present Illness Chief Complaint: Back Informant: patient Narrative Narrative: 39-year-old female states yesterday evening she stumbled and almost fell, she caught herself by crossing her left leg over her right she thinks, and in doing this without falling, she felt a pop in her right hip pointing to the groin, she has been having increased pain in the right hip and right low back/buttock ever since then. She states she has been having pain in his general area for the past month or so, has been following with doctors at the [facility], and she states she has an MRI scheduled for tomorrow, and they have told her she may have SI joint issues. She does point to pain in that area, but also states she is sometimes having discomfort in the toes of the right foot but not necessarily numbness or tingling. Hurts to bear weight but she is barely able. She denies any other injury or pain. She states she was seen here before for some of this and given a prescription for a muscle relaxer and she has tried that and it is not helping. States she wants something to get her through work tonight. [facility] Medical History Anemia Lumbar pain with radiation down right leg Dental caries Brain TIA Dysarthria Chronic migraine Anxiety and depression History of venous thromboembolism Obesity Tobacco use History of nephrolithiasis Chronic neck and back pain Factor 5 Leiden mutation, heterozygous Home Medications ?Medication ?Instructions ?Recorded ?Last Taken ?Type medroxyprogesterone 150 mg/mL 150 mg IM .[id number] control 01/30/15 08/24/24 11:00 History intramuscular syringe 150 mg citalopram 40 mg tablet 40 mg PO DAILY mental health 04/04/19 10/22/24 10:00 History 40 mg haloperidol 5 mg tablet 2.5 mg PO TID PRN Anxiety 04/04/19 Unknown History apixaban 5 mg tablet 5 mg PO BID blood thinner 06/03/20 10/22/24 12:30 History 5 mg acetaminophen 325 mg capsule 325 mg PO ONCE PRN Pain 1-10 Or 08/26/20 Unknown History (Tylenol) Fever lidocaine 5 % topical patch 1 patch topical DAILY pain #6 ea 04/13/21 09/20/24 11:00 Rx (Lidoderm) 1 patch albuterol sulfate 90 mcg/actuation 2 puff inhalation Q6H PRN 03/15/23 Unknown History aerosol inhaler CONGESTION/ALLERGIES cetirizine 10 mg tablet 10 mg PO DAILY allergies 03/15/23 10/22/24 10:00 History 10 mg famotidine 40 mg tablet 40 mg PO Q12H reflux 03/15/23 10/21/24 23:00 History 40 mg lamotrigine 200 mg tablet 200 mg PO DAILY bipolar 03/15/23 10/22/24 11:00 History 200 mg montelukast 10 mg tablet 10 mg PO QHS allergies 03/15/23 10/21/24 22:00 History 10 mg triamcinolone acetonide 55 mcg 2 spray intranasal DAILY 03/15/23 10/18/24 11:00 History nasal spray aerosol 2 spray erenumab-aooe 70 mg/mL 70 mg subcut .monthly 10/31/23 09/17/24 10:00 History subcutaneous auto-injector 70 mg (Aimovig Autoinjector) cholecalciferol (vitamin D3) 25 50 mcg PO DAILY 10/22/24 10/22/24 10:00 History mcg (1,000 unit) capsule 50 mcg topiramate 200 mg tablet 200 mg PO BID 10/22/24 10/22/24 11:00 History 200 mg methocarbamol 500 mg tablet 250 - 500 mg (0.5 - 1 x 500 mg) PO 01/23/25 Unknown Rx Q8H PRN muscle spasm #20 tabs prednisone 20 mg tablet 40 mg (2 x 20 mg) PO DAILY 6 days 01/30/25 Unknown Rx #12 tabs Allergy/AdvReac Type Severity Reaction Status Date / Time acetaminophen (From [facility]) Allergy Itching Verified 01/30/25 09:29 hydrocodone (From [facility]) Allergy Itching Verified 01/30/25 09:29 oxycodone (From [facility]) AdvReac Intermediate Itching Verified 01/30/25 09:29 cephalexin monohydrate (From Adv[facility] WEAKNESS, Verified 01/30/25 09:29 Keflex) MUSCLE ACHES Family History Mother Heart disease CVA (cerebral vascular accident) Diabetes Father No problems noted. Surgical History S/P cervical spinal fusion History of toe surgery History of carpal tunnel release Social History household members: other details: Lives in her home with her 3 children, youngest 9. Smoking Status: Current every day smoker tobacco type: cigarettes, e-cigarettes and smokeless tobacco alcohol intake: never substance use type: does not use ROS ROS ED Constitutional Constitutional ED: Denies chills or fever(s) Eyes Eyes: Denies change in vision Cardiovascular Cardiovascular: Denies chest pain Respiratory/Chest Respiratory/Chest: Denies dyspnea Gastrointestinal Gastrointestinal: Denies abdominal pain, constipation, fecal incontinence, nausea or vomiting Genitourinary Genitourinary ED: Reports other Details: no urinary retention ; Denies abdominal discomfort or urinary incontinence Musculoskeletal Musculoskeletal: Reports back pain and extremity pain; Denies neck pain Integumentary Denies Abrasions, rash or wounds Neurologic Neurologic: Denies headache(s), paresthesias or weakness EXAM Physical Exam Const Vital Signs: 01/30/25 09:29 Temperature 97.2 F L Temperature Source Temporal Pulse Rate 97 Respiratory Rate 14 Blood Pressure 119/81 H Blood Pressure Mean 93 Pulse Ox 100 Oxygen Delivery Method Room Air Positive well nourished, well developed and obese General Appearance ED: well developed and NAD Nutritional Appearance: obese HEENT Negative for trauma or tenderness Eyes PERRL and EOMs intact bilaterally Neck full ROM and supple Resp normal respiratory effort GI normal to inspection, nondistended, normoactive bowel sounds, soft to palpation and non-tender Back/Spine normal ROM and normal to inspection Lumbar Spine / Lower Back: ROM limited, paraspinal muscle tenderness right and straight leg raise negative bilaterally; Negative for lumbar spinal tenderness Extremity normal to inspection and no pedal edema Extremity Narrative: With gentle palpation of the right greater trochanter patient winces in pain for the next 5 minutes similarly with palpation into the buttock and low back, very diffusely subjectively tender. With gentle logrolling of the right lower extremity while sitting recumbent, she has no groin pain. She does complain of some pain in her back and buttock with this. Straight leg raises increased back pain and thigh discomfort but no radicular symptoms reproduced. Neuro oriented x3, no focal motor deficits and no sensory deficits noted Sensorium / Orientation: alert Motor Exam: strength 5/5 throughout and clonus absent Deep Tendon Reflexes: Rt Patellar (L4): 2+, Lt Patellar (L4): 2+, Rt Ankle (S1): 2+ and Lt Ankle (S1): 2+ Deep Tendon Reflexes Back: Rt Patellar (L4): 2+, Lt Patellar (L4): 2+, Rt Ankle (S1): 2+ and Lt Ankle (S1): 2+ Plantar Reflex: Downgoing: bilateral Psych mental status grossly normal and thought process normal Skin no wounds Rashes: no rashes MDM MDM MDM Narrative Medical decision making narrative: Patient is focusing on the need for something for pain. I advised her I am happy to give and prescribe her something however if she is going to be using it at work it will be nonnarcotic, she declares allergies to hydrocodone and oxycodone anyhow. I obtained x-rays of her right hip, 3 views and my interpretation showed no acute fracture or dislocation. Ordinarily I would recommend meloxicam but she is on apixaban for history of DVT. She has a teenage daughter that is can to drive her home today, so I am okay giving her an injection of morphine for her pain now and advising her to rest before work. I think reasonable to prescribe her short course of prednisone to see if that helps, however I recommend starting it after her MRI. She states somebody told her it was okay to take an occasional dose of an NSAID; I advised her that I advise against that. History & Record Review Discussion w/independent historian: Patient Discharge Plan Triage Chief Complaint: Back ED Provider: Luis Wilkerson Dx/Rx/DC Orders Clinical Impression: Acute pain of right hip, Acute right-sided low back pain Instructions: Understanding Sacroiliac Strain, ED Hip Strain Prescriptions: New prednisone 20 mg tablet 40 mg PO DAILY 6 Days Qty: 12 0RF No Action acetaminophen [Tylenol] 325 mg capsule 325 mg PO ONCE PRN (Reason: Pain 1-10 Or Fever) Aimovig Autoinjector 70 mg/mL auto-injector 70 mg subcut .monthly Rx Instructions: the 8th of each month medroxyprogesterone 150 MG/ML syringe 150 mg IM .[id number] citalopram 40 MG tablet 40 mg PO DAILY haloperidol 5 MG tablet 2.5 mg PO TID PRN (Reason: Anxiety) apixaban 5 MG tablet 5 mg PO BID lidocaine [Lidoderm] 5 % adhesive patch,medicated 1 patch topical DAILY Qty: 6 0RF Rx Instructions: leave on most painful area for up to 12 hrs lamotrigine 200 mg tablet 200 mg PO DAILY Patient Comments: TAKE 1 TABLET BY MOUTH ONCE DAILY IN THE MORNING cetirizine 10 mg tablet 10 mg PO DAILY famotidine 40 mg tablet 40 mg PO Q12H Patient Comments: PT TAKES AT DINNER TIME AND THEN ONE AT BEDTIME triamcinolone acetonide 55 mcg aerosol,spray 2 spray INTRANASAL DAILY Patient Comments: USE 2 SPRAY(S) INTRANASALLY ONCE DAILY montelukast 10 mg tablet 10 mg PO QHS Patient Comments: TAKE 1 TABLET BY MOUTH ONCE DAILY albuterol sulfate 90 mcg/actuation HFA aerosol inhaler 2 puff inhalation Q6H PRN (Reason: CONGESTION/ALLERGIES) cholecalciferol (vitamin D3) 25 mcg (1,000 unit) capsule 50 mcg PO DAILY topiramate 200 mg tablet 200 mg PO BID methocarbamol 500 mg tablet 250 - 500 mg PO Q8H PRN (Reason: muscle spasm) Qty: 20 0RF Primary Care Provider: Haley Kunz Referrals: Haley Kunz, PA-C [Primary Care Provider] - 1 Week if not improving Print Language: Mohawk Disposition Disposition: Home, Self Care
--- NOTE | 2025-01-30 10:15 | RAD_ITS ---
PROCEDURE: HIP, UNI W/ PELVIS 2-3 VIEWS 01/30/2025 REASON FOR EXAM: INJURY TECHNIQUE: HIP, UNI W/ PELVIS 2-3 VIEWS Laterality: Right COMPARISON: None FINDINGS: Bones: No fracture Joints: Normal alignment. Soft tissues: Soft tissues are unremarkable. RAD/HIP, UNI W/ Pelvis 2-3 Views IMPRESSION: No acute abnormality Reading Location: [id number]
[2025-01-30 10:54] VITALS: BP 110/88; PULSE 91; RESP 16; TEMP 36.6; O2SAT 98
== END 2025-01-30 10:55 | disposition home or self-care (01) ==
PROVIDERS: Emergency Provider Emergency Medicine; PCP Family Medicine; Visit Provider Emergency Medicine
DX: M25.551 Pain in right hip (principal); M54.50 Low back pain, unspecified; R10.31 Right lower quadrant pain; Z79.01 Long term (current) use of anticoagulants; Z79.899 Other long term (current) drug therapy; D68.51 Activated protein C resistance; F17.210 Nicotine dependence, cigarettes, uncomplicated; F17.290 Nicotine dependence, other tobacco product, uncomplicated; Z86.718 Personal history of other venous thrombosis and embolism
CPT/HCPCS: 73502; 96372; 99282

== ENCOUNTER 2025-04-02 17:58 | Emergency (ER) | payer MEDICAID, SELFPAY ==
[2025-04-02 17:59] VITALS: BP 133/75; PULSE 114; RESP 16; TEMP 36.6; O2SAT 100
--- OUTSIDE RECORDS SUMMARY | 2025-04-02 18:28 | XMS RPT_ITS | CCD ---
Author Organization [facility] Care Team Providers Care Dispensary Technician Name Role Phone Dr. Loretta Hermosillo Primary Care Provider Dr. Les Michel Referring Provider Dr. Les Michel Other Provider Dr. Randal Whitaker Attending Provider COLTON KUNZ PA-C Primary Care Physician Unavailable Primary Care Provider UnavailNP. Neli De La Torre Primary Care Provider Dr. Jan Ruby Attending Provider Dr. Jeremy Gerard Emergency Provider [phone] Bridgett Ponce Admit Provider Dr. Bridgett Ponce Other Provider Dr. Lucina Barahona Attending Provider Unavailable Dr. Lucina Barahona Other Provider Unavailable NP. Neli Tripp Referring Provider ALONZO Spence Attending Provider JANET FERNANDEZ Referring Unavailable COLTON KUNZ PA-C Primary Care Unavailable LES MICHEL DO Attending Unavailable ZE BETHEACCELINACOLTON Primary Care Unavailable LES MICHEL DO Attending Unavailable JAYDE OSEGUERA Consulting Unavaila ble ZE CRUMP, COLTON Primary Care Unavailable LES MICHEL DO Admitting Unavailable LES MICHEL DO Attending Unavailable NP. Neli Tripp Primary Care Provider [phone] ALONZO Gentile Attending Provider DOUG KatzC Katheryn Attending Provider Ungerer, PHARMACIST PER DIEM. Neli Primary Care Provider ALONZO Spence Attending Provider Ungerer, PHARMACIST PER DIEM. Neli Referring Provider ALONZO Gentile Attending Provider Sterling PHARMACIST PER DIEM-C Katheryn Attending Provider Unavailable Primary Care Provider Unavailabl e Ungerer TITLE ABSTRACTOR, Neli D Primary Care Provider ELIZABETH MARQUES Attending Unavailable JANET FERNANDEZ Referring Unavailable CHARLINE WOOTEN Attending Unavailable CHARLINE WOOTEN Attending Unavailable UNGERER, NELI D Primary Care Unavailable Ungerer PHARMACIST PER DIEM-C, PHARMACIST PER DIEM. Neli Primary Care Provider Ungerer PHARMACIST PER DIEM-C, PHARMACIST PER DIEM. Neli Referring Provider Torres Spence Attending Provider Vincent GEORGE, Dr. Reyna Emergency Provider [phone] Ungerer TITLE ABSTRACTOR, Neli D Primary Care Provider Ungerer PHARMACIST PER DIEM-C, PHARMACIST PER DIEM. Neli Primary Care Provider Ungerer PHARMACIST PER DIEM-C, PHARMACIST PER DIEM. Neli Referring Provider Torres Spence Attending Provider Vincent GEORGE, Dr. Reyna Attending Provider Dr. Axel Kaur MD Emergency Provider Jarrod Gentile Attending Provider [phone] Sterling PHARMACIST PER DIEM-C, Katheryn Attending Provider Jarrod Gentile Referring Provider Care Physician, No Primary Primary Care Provider Unavailable Vibha BERNAL, Dr. Lao Emergency Provider Ungerer PHARMACIST PER DIEM-C, Neli Primary Care Provider Ungerer PHARMACIST PER DIEM-C, Neli Referring Provider Care Physician, No Primary Primary Care Provider Unavailable Vibha BERNAL, Dr. Lao Attending Provider Jarrod Gentile Referring Provider Rajani BERNAL, Dr. Luna Emergency Provider Dereck BERNAL, Dr. Delcid Admit Provider Dereck BERNAL, Dr. Delcid Attending Provider Dereck BERNAL, Dr. Delcid Other Provider Mook GEORGE, Dr. Kothari Attending Provider Flori GEORGE, Dr. Montoya Attending Provider Mook GEORGE, Dr. Kothari Other Provider [phone] COLTON KUNZ Attending Unavailable COLTON KUNZ Primary Care Unavailable COLTON KUNZ Admitting Unavailable UNGERER, NELI PHARMACIST PER DIEM Consulting Unavailable PROVIDER, UNKNOWN Consulting Unavailable Ze PA-C, Colton D Primary Care Provider Jarrod Gentile Attending Provider [phone] Care Physician, No Primary Primary Care Provider Unavailable Ze PA-C, Colton Primary Care Provider Dr. Ck Matias DO Emergency Provider Dr. Ck Matias DO Attending Provider Rock GEORGE, Dr. Smith Emergency Provider Ze PA-C, Colton D Primary Care Provider COLTON KUNZ Primary Care Unavailable PRAMOD GOMEZ Referring Unavailable BRIAN SHELDON Attending Unavailable UNGERER, NELI D Primary Care Unavailable JANET FERNANDEZ Referring Unavailable NICK RACHEL Attending Unavailable UNGERER, NELI D Primary Care Unavailable ANTWON ESCOBEDO Attending Unavailable UNGERER, NELI D Primary Care Unavailable TAYE DELVALLE Referring Unavailable JANET FERNANDEZ Attending Unavailable UNGERER, NELI D Primary Care Unavailable [place] COLTON Shasta Primary Care Unavailable JASON, PRAMOD Referring Unavailable MOOMAW, JAY Attending Unavailable [place] COLTON D Primary Care Unavailable [place] COLTON D Primary Care Unavailable MOOMAW, JAY Referring Unavailable L[place] R[place] D Primary Care Unavailable JASON, PRAMOD Referring Unavailable JASON, PRAMOD Attending Unavailable UNGERER, NELI D Primary Care Unavailable PATY ARCINIEGA Referring Unavailable UNGERER, NELI D Primary Care Unavailable LES MCKEON Referring Unavailable UNGERER, NELI D Primary Care Unavailable PATY ARCINIEGA A Referring Unavailable PATY ARCINIEGA Attending Unavailable UNGERER, NELI D Primary Care Unavailable MASCPATY Jones Referring Unavailable UNGERER, NELI D Primary Care Unavailable UNGERER, NELI D Primary Care Unavailable UNGERER, NELI D Primary Care Unavailable JEB REDDSSICA Referring Unavailable JEOVANY JOSEPH Attending Unavailable UNGERER, NELI D Primary Care Unavailable UNGERER, NELI D Primary Care Unavailable JEOVANY JOSEPH Referring Unavailable UNGERER, NELI D Primary Care Unavailable [place] COLTON D Primary Care Unavailable CYNDI FERNANDEZISTEN Referring Unavailable UNGERER, NELI D Primary Care Unavailable MOOMAW, JAY Referring Unavailable UNGERER, NELI D Primary Care Unavailable REDD, NELI Referring Unavailable UNGERER, NELI D Primary Care Unavailable MICHELLE MARVIN Attending Unavailable [place] COLTON Shasta Primary Care Unavailable UNGERER, NELI D Primary Care Unavailable NICK RACHEL Attending Unavailable [place] COLTON D Primary Care Unavailable JASON, PRAMOD Attending Unavailable [place] COLTON D Primary Care Unavailable JASON, PRAMOD Referring Unavailable UNGERER, NELI D Primary Care Unavailable [place] COLTON D Primary Care Unavailable JASON, PRAMOD Referring Unavailable [place] COLTON D Primary Care Unavailable JASON, PRAMOD Referring Unavailable Ck Matias Attending Unavailable [place] Colton ROSADO Primary Care Unavailable Luis Wilkerson Attending Unavailable [place] Colton ROSADO Primary Care Unavailable Ungerer, Neli Primary Care Unavailable Kaur, Axel Attending Unavailable Care Physician, No Primary Primary Care Unava ilable Dereck, Farhana Consulting Unavailable Dereck, Farhana Admitting Unavailable Taye Delvalle Attending Unavailable Care Physician, No Primary Primary Care Unava ilable Jarrod Gentile Referring Unavailable Dave PA, Jarrod Attending Unavailable Ungerer, Neli Referring Unavailable Dave PA, Jarrod Attending Unavailable Ungerer, Neli Primary Care Unavailable Ungerer, Neli Primary Care Unavailable Ungerer, Neli Referring Unavailable Katheryn Katz Attending Unavailable Care Physician, No Primary Primary Care Unava ilable Jan Ruby Attending Unavailable Care Physician, No Primary Primary Care Unava ilable Dereck, Farhana Attending Unavailable Dereck, Farhana Consulting Unavailable Dereck, Farhana Admitting Unavailable Taye Delvalle Attending Unavailable Mook, Taye Consulting Unavailable Ze ROSADO, Colton Referring Unavailable Ze ROSADO, Colton Primary Care Unavailable Torres Spence Attending Unavailable Ungerer, Neli Referring Unavailable Ungerer, Neli Primary Care Unavailable Gracie Parmar Attending Unavailable Ungerer, Neli Referring Unavailable Ungerer, Neli Primary Care Unavailable Torres Spence Attending Unavailable Shilo Dunne [facility], No Primary Primary Care Unava ilable Allergies Allergy Classification Reported Allergen(s) Allergy Type Date of Onset Reaction(s) Facility (14 sources) Cephalexin; Translations: [cephalexin monohydrate] Drug Allergy 1 WEAKNESS, MUSCLE ACHES [facility] (1 source) Penicillins Allergy to substance 1 unknown [facility] Work Phone: (12 sources) Acetaminophen Drug Allergy 2 Itching [facility] (12 sources) HYDROcodone Drug Allergy 2 Itching [facility] (6 sources) Acetaminophen / HYDROcodone; Translations: [acetaminophen-hy drocodone] Drug Allergy Itching [facility] (20 sources) Acetaminophen / oxyCODONE; Translations: [acetaminophen-ox ycodone] Drug Allergy 3 Other: See Comments [facility] (20 sources) Cephalexin; Translations: [cephalexin] Drug Allergy 4 Other: See Comments [facility] (7 sources) oxyCODONE Drug Allergy 4 Itching [facility] (2 sources) Acetaminophen / oxyCODONE; Translations: [OXYCODONE-ACETAM INOPHEN] Drug Allergy 4 [facility] (1 source) Acetaminophen / HYDROcodone Drug Allergy [facility] (1 source) Acetaminophen / HYDROcodone Drug Allergy [facility] (1 source) Acetaminophen / oxyCODONE Drug Allergy [facility] (1 source) Cephalexin Drug Allergy [facility] (1 source) Cephalexin Drug Allergy [facility] (1 source) Naproxen Drug Allergy [facility] (1 source) vortioxetine Drug Allergy [facility] (1 source) Acetaminophen Drug Allergy 5 [facility] (1 source) HYDROcodone Drug Allergy 5 [facility] (1 source) oxyCODONE Drug Allergy 5 [facility] Repository Medications Current Medications Medication Drug Class(es) Dates Sig (Normalized) Sig (Original) acetaminophen 325 mg oral capsule (13 sources) Start: 08-26-2020 take 1-10 capsules by mouth once as needed for pain Acetaminophen (Tylenol) 325 mg capsule Active 325 mg PO ONCE as needed for Pain 1-10 Or Fever August 26, 2020 12:00am [id number] 200 actuat albuterol 0.09 mg/actuat metered dose [...] TWICE A DAY June 03, 2020 1:00am blood thinner Comment on above: Take 1 tablet by juliano th every 12 hours. azithromycin 250 mg oral tablet (15 sources) Macrolide Antimicrobial Start: 03-28-20 End: 04-02-20 [...] tablet Discontinued 250 mg PO DAILY 4 4 0 April 04, 2019 12:00am April 07, 2019 12:00am April 11, 2019 12:10am cetirizine hydrochloride 10 mg oral tablet (20 sources) Histamine-1 Receptor Antagonist Start: 03-15-2023 Cetirizine Active MG March 15, 2023 12:00am Start: 01-21-2023 take 1 tablet by juliano once daily cetirizine (ZYRTEC) 10 mg tablet [...] 2020 8:42am chlorzoxazone 500 mg oral tablet (15 sources) Muscle Relaxant Start: 10-25-2024 chlorzoxazone (PARAFON [...] 03, 2020 1:00am October 22, 2024 10:12pm vitamin Comment on above: Take 2 tablets by mo [facility] every afternoon. citalopram 40 mg oral tablet (20 sources) Serotonin Reuptake Inhibitor Start: End: take 1 tablet by mouth once citalopram (CELEXA) 40 mg tablet Take 1 tablet by mouth every afternoon. 04/05/2023 Active Comment on above: Take 1 tablet by juliano th every afternoon. doxycycline hyclate 100 mg oral tablet (7 sources) Tetracycline-class Drug Start: End: take 1 tablet by mouth twice daily [...] 3 01/20/2025 Active Start: 10-02-2023 End: 01-15-2025 Erenumab-Aooe (Aimovig Autoi njector) 70 mg/mL auto-injector Active 70 mg SC .monthly October 31, 2023 12:00am the 8th of each month famotidine 40 mg oral tablet (20 sources) [...] mg PO Q12H March 15, 2023 12:00am reflux Start: 03-15-2023 Famotidine Act ivon MG March 15, 2023 12:00am Start: 06-16-2023 famotidine 40 mg oral tablet Dose : 40 mg = 1 tab(s), Oral, Daily, 0 Refill(s) Start Date: 11/25/22 Status: Ordered Comment on above: TAKE 1 TABLET BY JULIANO TH TWICE DAILY WITH SUPPER AND AT BEDTIME gabapentin 100 mg oral capsule (2 sources) Anti-epileptic Agent Start: 5 End: take 1 capsule by mouth once daily at bedtime gabapentin (NEURONTIN) 100 mg capsule Take 1 capsule by mouth daily at bedtime for 30 days. 30 capsule 02/17/2025 03/19/2025 Active haloperidol 5 mg oral tablet (20 sources) Typical Antipsychotic Start: 3 haloperidol 5 mg oral tablet Dose : [...] adhesive patch,medicated Active 1 NMA TOPICAL DAILY 6 0 April 13, 2021 12:00am pain leave on most painful area for up to 12 hrs Start: 06-03-2020 End: 06-08-2020 Lidocaine 1 PATCH patch Discontinued 1 NMA TOPICAL DAILY 5 5 0 June 03, 2020 1:00am June 07, 2020 [...] 150 MG/ML syringe Active 150 mg IM .[id number] January 30, 2015 12:00am control Start: 01-30-2015 inject 150 mg by int ramuscular injection every three months Medroxyprogesterone Active 150 MG IM .[id number] January 30, 2015 12:00am medroxyPROGESTER one (DEPO-PROVERA) 150 mg/mL injection Inject 150 mg intramuscularly every 12 weeks. Active methocarbamol 500 mg oral tablet (20 sources) Muscle Relaxant Start: 08-17-2024 End: 01-23-2025 take 250-500 mg by mouth every eight hours as needed for muscle spasms Methocarbamol 500 mg tablet Active 250 - 500 mg PO Q8H as needed for muscle spasm 0 January 23, 2025 3:47am Start: 08-17-2024 take 250-500 mg by m [...] NEEDED as needed for Muscle pain/spasm 56 7 0 July 18, 2023 11:35pm August 30, 2023 12:31am Start: 07-18-2023 End: 08-30-2023 take 1000 mg by mouth four times daily as needed Methocarbamol Discontinued 1000 MG PO 4 TIMES DAILY NEEDED 56 7 July 18, 2023 11:35pm August 30, 2023 [...] 1 tablet by juliano th every afternoon. nystatin 100 unt/mg topical powder (20 sources) Polyene Antifungal Start: 03-30-2023 nystatin (MYCOSTATIN) powder APPLY POWDER TOPICALLY TWICE TO THREE TIMES DAILY TO GROIN AREA DIRECTED 03/30/2023 Active Comment on above: APPLY POWDER TOPICAL LY TWICE TO THREE TIMES DAILY TO GROIN AREA DIRECTED predniSONE 20 mg oral tablet (17 sources) Start: 01-30-2025 take 2 tablets by mouth once daily Prednisone 20 mg tablet Active 40 mg PO DAILY 12 6 January 30, 2025 12:00am Start: 01-11-2025 End: 01-16-2025 take 1 tablet by mouth once daily [...] mg tablet Discontinued 10 mg PO DAILY 30 0 October 17, 2023 12:00am January 16, 2024 1:28pm 4 tablets daily x3 days, then 3 tablets daily x3 days, then 2 tablets daily x3 days, then 1 tablet daily x3 days rimegepant 75 mg disintegrating oral tablet (20 sources) Start: 09-14-2023 End: 12-13-2023 take 1 tablet by mouth every other day in the morning rimegepant (NURTEC ODT) 75 mg disintegrating tablet Take 1 tablet by mouth every other day in the morning. 16 tablet 2 09/14/2023 12/13/2023 Active Start: 05-31-2023 End: 01-23-2025 take 1 tablet by mouth once daily as needed rimegepant (NURTEC ODT) 75 mg disintegrating tablet Indications: Migraine without aura and without status migrainosus, not intractable Take 1 tablet by mouth once daily as needed (Migraine). 8 tablet 6 04/29/2024 Active Comment on above: Take 1 tablet [...] 12:00am traMADol hydrochloride 50 mg oral tablet (16 sources) Opioid Agonist Start: 11-25-2022 traMADol 50 [...] 4 HOURS NEEDED as needed for Pain 10 3 February 14, 2020 12:00am February 16, 2020 12:00am February 17, 2020 12:02am Strain of lumbar region Strain of muscle, fascia and tendon of lower back, initial encounter triamcinolone acetonide 0.055 mg/actuat metered dose nasal [...] / HYDROcodone bitartrate 5 mg oral tablet (14 sources) Opioid Agonist Start: 08-17-2024 End: 09-07-2024 Hydrocodone-Acetami nophen 5-325 mg tablet Discontinued 1 {tbl} PO EVERY 6 HOURS as needed for pain 12 3 0 August 17, 2024 September 07, 2024 11:27am Acute myofascial strain of lumbar region Strain of muscle, fascia and tendon of lower back, initial encounter Start: 12-07-2022 End: 12-14-2022 take 1 tablet by mouth every six hours as needed for pain [place] 325- 5 mg oral tablet Dose = 1 tab(s), Oral, q6h, PRN for pain, X 7 day(s), # 28 tab(s), 0 Refill(s), Pharmacy: [id number], Cervical spondylosis, 160, cm, 12/07/22 6:50:00 EDT, Height, 101 Start Date: 12/07/22 Stop Date: 12/14/22 Status: Ordered End: 12-18-2024 take 1 tablet by mouth every eight hours as needed HYDROcodone-acetaminophen (NORCO) 5-325 mg per tablet Take 1 tablet by mouth every 8 hours as needed for pain. 0 12/18/2024 Discontinued acetaminophen 325 mg / oxyCODONE hydrochloride 5 mg oral tablet (20 sources) Opioid Agonist Start: 07-18-2023 End: 08-30-2023 Oxycodone-Acetaminophen (Percocet) 5-325 mg tablet Discontinued 1 {tbl} PO EVERY 6 HOURS as needed for pain 12 3 0 July 18, 2023 August 30, 2023 12:31am Acute cervical myofascial strain Strain of muscle, fascia and tendon at neck level, initial encounter Start: 05-07-2022 End: 03-15-2023 Oxycodone-Acetaminophen (Per cocet) 5-325 mg tablet Discontinued 1 {tbl} PO EVERY 6 HOURS as needed for pain 12 3 0 May 07, 2022 March 15, 2023 9:36pm Contusion of right foot Contusion of right foot, initial encounter acyclovir 400 mg oral tablet (13 sources) Herpesvirus Nucleoside Analog DNA Polymerase Inhibitor, [...] 2020 8:39am amoxicillin 500 mg oral capsule (20 sources) Penicillin-class Antibacterial Start: 06-19-2024 End: 10-25-2024 take 1 capsule by mouth three times daily amoxicillin (AMOXIL) 500 mg capsule Take 500 mg by mouth three times a day. 06/19/2024 10/25/2024 Discontinued Start: 06-19-2024 End: 08-17-2024 take 1 tablet by mouth three times daily Amoxicillin 500 mg tablet Discontinued 500 mg PO THREE TIMES A DAY 30 0 June 19, 2024 1:00am August 17, 2024 5:12pm Start: 09-05-2023 End: 10-31-2023 take 1 tablet by mouth three times daily Amoxicillin 500 mg tablet Discontinued 500 mg PO THREE TIMES A DAY September 05, 2023 12:00am October 31, 2023 1:02pm amoxicillin 875 mg / clavulanate 125 mg oral tablet (9 sources) Penicillin-class Antibacterial Start: 06-02-2023 End: 06-12-2023 Amoxicillin-Pot Clavulanate 875-125 mg tablet Discontinued 1 {tbl} PO Q12H 20 June 02, 2023 1:00am June 11, 2023 1:00am June 12, 2023 1:04am Acute sinusitis, unspecified Start: 06-02-2023 End: 06-12-2023 take 1 tablet by mouth every twelve hours Amoxicillin-Pot Clavulanate Discontinued 1 TABLET PO Q12H 31 03June 02, 2023 1:00am June 12, 2023 1:04am baclofen 20 mg oral tablet (13 sources) gamma-Aminobutyric Acid-ergic Agonist Start: 06-03-2020 End: 08-30-2023 take 10-20 mg by mouth three times daily as needed for muscle spasms Baclofen 20 MG tablet Discontinued 10 - 20 mg PO THREE TIMES A DAY as needed for Spasms June 03, 2020 1:00am August 30, 2023 12:28am benzonatate 200 mg oral capsule (16 sources) Non-narcotic Antitussive Start: 10-31-2023 End: 01-16-2024 [...] hydrochloride 150 mg extended release oral tablet (13 sources) Aminoketone Start: 06-03-2020 End: 08-26-2020 take 1 tablet by mouth twice daily Bupropion Hcl 150 MG tablet extended release 24 hr Discontinued 150 mg PO TWICE A DAY June 03, 2020 1:00am August 26, 2020 8:42am Chlorhexidine Gluconate (Peridex) 0.12 % mouthwash (9 sources) Start: 07-16-2023 End: 01-16-2024 Chlorhexidine Gluconate (Peridex) 0.12 % mouthwash Discontinued 15 mL BUCCAL TWICE A DAY 120 1 July 16, 2023 1:00am January 16, 2024 1:26pm Start: 07-16-2023 End: 01-16-2024 Chlorhexidine Gluconate (Per idex) 0.12 % mouthwash Discontinued 15 mL BUCCAL TWICE A DAY 120 July 16, 2023 1:00am January 16, 2024 1:26pm Start: 07-16-2023 End: 01-16-2024 Chlorhexidine Gluconate (Per idex) 0.12 % mouthwash Discontinued 15 mL BUCCAL TWICE A DAY July 16, 2023 12:00am January 16, 2024 12:26pm Start: 07-16-2023 Chlorhexidine Gluconate (Peridex) 0.12 % mouthwash Active 15 ML BUCCAL TWICE A DAY July 16, 2023 1:00am Start: 07-16-2023 Chlorhexidine Gluconate (Peridex) 0.12 % mouthwash Active 15 ML BUCCAL TWICE A DAY July 16, 2023 12:00am cyclobenzaprine hydrochloride 10 mg oral tablet (6 sources) Muscle Relaxant Start: 10-17-2023 End: 08-17-2024 take 1 tablet by mouth three times daily as needed for muscle spasms Cyclobenzaprine 10 mg tablet Discontinued 10 mg PO THREE TIMES A DAY as needed for muscle spasm 20 0 October 17, 2023 12:00am August 17, 2024 5:14pm diclofenac sodium 0.01 mg/mg topical gel (13 sources) Nonsteroidal Anti-inflammator y Drug Start: 04-13-2021 [...] 90 mg SC TWICE A DAY 54 30 2 January 10, 2024 3:23pm August 17, 2024 5:12pm Start: 01-08-2024 End: 01-10-2024 Enoxaparin (Lovenox) 100 mg/ mL syringe Discontinued 90 mg SC DAILY 10 0 January 08, 2024 12:00am January 10, 2024 3:32pm End: 05-24-2024 enoxaparin (LOVENOX) 100 mg/ mL syrg Inject subcutaneously every 12 hours. 05/24/2024 Discontinued (Course of therapy completed) FLUoxetine 10 mg oral capsule (13 sources) Serotonin Reuptake Inhibitor Start: 11-18-2013 End: 11-25-2013 take 1 capsule by mouth once daily Fluoxetine 10 MG capsule Discontinued 10 mg PO DAILY November 18, 2013 12:00am November 25, 2013 9:40am Lactobacillus Combination No.8 (Adult Probiotic) 3 billion cell capsule (13 sources) Start: 08-26-2020 End: 03-15-2023 take 3 [...] meal meclizine hydrochloride 25 mg oral tablet (13 sources) Antiemetic Start: 06-03-2020 End: 08-26-2020 take [...] pack Discontinued 0 PO per package directions 0 September 07, 2024 12:00am October 22, 2024 10:18pm PO PER PKG DIR for 6 days Start: 10-31-2023 End: 01-16-2024 take 1 tablet by mouth once Methylprednisolone (Medrol (Julio Cesar)) 4 mg tablets,dose pack Discontinued 0 PO per package directions 21 October 31, 2023 12:00am January 16, 2024 1:28pm PO PER PKG DIR Start: 07-27-2023 End: 08-02-2023 take 1 tablet by mouth once Methylprednisolone (Medrol (Julio Cesar)) 4 mg tablets,dose pack Discontinued 4 mg PO per package directions 21 6 0 July 27, 2023 1:00am August 01, 2023 1:00am August 02, 2023 1:04am Start: 05-22-2023 End: 06-08-2023 take 1 tablet by mouth once Methylprednisolone (Medrol (Julio Cesar)) 4 mg tablets,dose pack Discontinued 4 mg PO per package directions 21 6 0 June 02, 2023 1:00am June 07, 2023 1:00am June 08, 2023 1:05am Start: 01-11-2016 End: 11-14-2023 inject 20 mg by intramuscular injection every three months methylPREDNISolone acetate (DEPO-MEDROL) 20 mg/mL susp Inject 20 mg intramuscularly every 3 months. 0 01/11/2016 11/14/2023 Discontinued Mupirocin (20 sources) RNA Synthetase Inhibitor Antibacterial Start: 07-16-2023 End: 08-30-2023 Mupirocin 2 % ointment Discontinued 1 NMA TOPICAL THREE TIMES A DAY 15 July 16, 2023 1:00am August 30, 2023 [...] 2020 8:41am naproxen 500 mg oral tablet (13 sources) Nonsteroidal Anti-inflammatory Drug Start: 04-13-2021 End: 03-15-2023 take 1 tablet by mouth twice daily as needed for pain Naproxen (Naprosyn) 500 mg tablet Discontinued 500 mg PO TWICE A DAY as needed for pain April 13, 2021 12:00am March 15, 2023 9:35pm 24 hr nicotine 0.583 mg/hr transdermal system (3 sources) Cholinergic Nicotinic Agonist Start: 10-23-2024 End: 01-23-2025 apply 1 dose transdermal route every twenty-four hours Nicotine 14 mg/24 hr Patch 24 Hour Discontinued 14 mg TD DAILY October 23, 2024 12:00am January 23, 2025 3:16am microencapsulated potassium chloride 20 meq extended release oral tablet (10 sources) Start: 03-16-2023 End: 08-30-2023 take 1 tablet by mouth twice daily Potassium Chloride 20 mEq tablet,ER particles/cryst als Discontinued 20 meq PO TWICE A DAY March 16, 2023 12:00am August 30, 2023 12:31am SUMAtriptan 100 mg oral tablet (15 sources) Serotonin-1b and Serotonin-1d Receptor Agonist Start: [...] Comment on above: TAKE ONE TABLET BY M OUTH AT ONSET OF HEADACHE, MAY REPEAT IN [...] Chronic Chronic obstructive pulmonary disease and bronchiectasis (13 sources) Bronchitis; Translations: [Bronchitis, not specified as acute or chronic] 06-18-2019 Episodic Coagulation and hemorrhagic disorders (20 sources) Factor V Leiden mutation; 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] Onset: 3 Chronic Coma; stupor; and brain damage (1 source) Daytime somnolence; Translations: [Somnolence] 02-28-2024 Episodic Deficiency and other anemia (8 sources) Anemia; Translations: [Anemia, unspecified] 10-22-2024 Episodic Disorders of teeth and jaw (18 sources) Toothache; Translations: [Other specified disorders of teeth and supporting structures] 07-16-2023 Episodic Esophageal disorders (9 sources) Gastroesophageal reflux disease without esophagitis; Translations: [Gastro-esophageal reflux disease without esophagitis] Onset: 3 Chronic Fluid and electrolyte disorders (13 sources) Hypokalemia; Translations: [Hypokalemia] 03-15-2023 Episodic Gout and other crystal arthropathies (10 sources) Gouty arthritis of left great toe; Translations: [Gout, unspecified] 07-27-2023 Chronic Headache; including migraine (20 sources) Migraine; Translations: [Migraine, unspecified, not intractable, without status migrainosus] Onset: 3 Chronic Headache; including migraine (19 sources) Headache; Translations: [Headache] Onset: 5 10-22-2024 Episodic Headache; including migraine (1 source) Headache; including migraine; Translations: [Headache, unspecified] Onset: 5 Immunizations and screening for infectious disease (2 sources) Anti-nuclear factor positive; Translations: [Other specified abnormal immunological findings in serum] Onset: 5 02-17-2025 Episodic Malaise and fatigue (14 sources) Asthenia; Translations: [Weakness] 03-15-2023 Episodic Mood disorders (1 source) Bipolar disorder; Translations: [Bipolar disorder, unspecified] Onset: Chronic Other aftercare (13 sources) Long-term current use of anticoagulant; Translations: [bed bug exterminator (current) use of anticoagulants] Onset: 5 08-25-2024 Episodic Other circulatory disease (1 source) History of embolic cerebrovascular accident; Translations: [Personal history of transient ischemic attack (TIA), and cerebral infarction without residual deficits] 01-17-2024 Episodic Other circulatory disease (1 source) History of transient ischemic attack; Translations: [Personal history of transient ischemic attack (TIA), and cerebral infarction without residual deficits] 11-14-2024 Episodic Other connective tissue disease (13 sources) Tendinitis of shoulder region; Translations: [Other enthesopathies, not elsewhere classified] 09-30-2020 Episodic Other connective tissue disease (17 sources) Weakness of face muscles; Translations: [Facial weakness] 03-15-2023 Episodic Other connective tissue disease (4 sources) Facial weakness; Translations: [Facial weakness] Onset: 4 03-15-2023 Episodic Other connective tissue disease (9 sources) Spasm; Translations: [Other muscle spasm] 07-18-2023 Episodic Other connective tissue disease (1 source) Transient neurological symptoms; Translations: [Other symptoms and signs involving the nervous system] 02-28-2024 Episodic Other connective tissue disease (8 sources) Monoparesis - leg; Translations: [Other symptoms and signs involving the musculoskeletal system] 10-22-2024 Episodic Other connective tissue disease (1 source) Hypermobility syndrome; Translations: [Hypermobility syndrome] 02-17-2025 Episodic Other connective tissue disease (1 source) Fibromyalgia; Translations: [Fibromyalgia] 02-17-2025 Episodic Other gastrointestinal disorders (1 source) Irritable bowel syndrome characterized by constipation; Translations: [Irritable bowel syndrome with constipation] 02-17-2025 Chronic Other injuries and conditions due to external [...] Onset: 3 Chronic Other nervous system disorders (11 sources) Expressive dysphasia; Translations: [Aphasia] 10-22-2024 Chronic Other nervous system disorders (3 sources) Demyelinating disease of central nervous system 11-14-2024 Chronic Other nervous system disorders (1 source) Central sensitization; Translations: [Other chronic pain] 02-17-2025 Chronic Other nervous system disorders (1 source) Other chronic pain; Translations: [Central sensitization to pain] Onset: 5 Chronic Other nervous system disorders (2 sources) Aphasia; Translations: [Aphasia] Onset: 5 Chronic Other nervous system disorders (1 source) Paiz's palsy; 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] Onset: 3 Episodic Other nervous system disorders (8 sources) Dysarthria; Translations: [Dysarthria and anarthria] 08-29-2023 [...] Episodic Other nervous system disorders (1 source) Paresthesia of skin; Translations: [Right leg paresthesias] Onset: 5 Episodic Other nervous system disorders (1 source) Personal history of other diseases of the nervous system and sense organs; Translations: [History of carpal tunnel syndrome] Onset: 5 Episodic Other nervous system disorders (1 source) White matter disease, unspecified; Translations: [White matter abnormality on MRI of brain] Onset: 5 Episodic Other non-traumatic joint disorders (13 sources) Shoulder pain; Translations: [Pain in unspecified shoulder] 06-04-2020 Episodic Other non-traumatic joint disorders (2 sources) Pain of right wrist; Translations: [Pain in right wrist] 07-29-2024 Episodic Other non-traumatic joint disorders (5 sources) Pain in wrist; Translations: [Pain in unspecified wrist] 09-22-2024 Episodic Other non-traumatic joint disorders (6 sources) Multiple joint pain; Translations: [Pain in unspecified joint] 01-02-2025 Episodic Other non-traumatic joint disorders (2 sources) Hip pain; Translations: [Pain in right hip] [...] right ankle pain] Onset: 5 Episodic Other non-traumatic joint disorders (1 source) Pain in unspecified joint; Translations: [Pain in joint, multiple sites] Onset: 5 Episodic Other screening for suspected conditions (not mental disorders or infectious disease) (8 sources) Magnetic resonance imaging of brain abnormal; Translations: [Other abnormal findings on diagnostic imaging of central nervous system] Onset: 5 11-14-2024 Episodic Other skin disorders (2 sources) Eruption; Translations: [Rash and other nonspecific skin eruption] 01-02-2025 Episodic Other skin disorders (2 sources) Rash and other nonspecific skin eruption; Translations: [Rash and nonspecific skin eruption] Onset: 5 Episodic Other upper respiratory disease (20 sources) Seasonal allergic rhinitis; Translations: [Other seasonal allergic rhinitis] Onset: 5 10-11-2020 Chronic Other upper respiratory infections (1 source) Chronic sinusitis, unspecified; Translations: [Unspecified sinusitis (chronic)] 03-19-2024 Chronic Phlebitis; thrombophlebitis and thromboembolism (6 sources) Chronic deep venous thrombosis; Translations: [Chronic embolism and thrombosis of unspecified deep veins of unspecified lower extremity] 04-10-2024 Chronic Phlebitis; thrombophlebitis and thromboembolism (7 sources) H/O: Deep vein thrombosis; Translations: [Personal history of other venous thrombosis and embolism] Onset: 4 11-14-2023 Episodic Pulmonary heart disease (2 sources) H/O: pulmonary [...] Translations: [Pallor] 01-02-2025 Episodic Residual codes; unclassified (2 sources) Tobacco use and exposure - finding; Translations: [Tobacco use] 01-23-2025 Episodic Residual codes; unclassified (1 source) Pallor; Translations: [Livedo reticularis] Onset: Episodic Residual codes; unclassified (1 source) Unspecified symptoms and signs involving general sensations and perceptions; Translations: [Sensory deficit, right] Onset: Episodic Skin and subcutaneous tissue infections (14 sources) Impetigo; Translations: [Impetigo, unspecified] 07-16-2023 Episodic Spondylosis; intervertebral disc disorders; other back problems (20 sources) Backache; Translations: [Dorsalgia, unspecified] Onset: 5 04-21-2021 Episodic Sprains and strains (20 sources) Lumbosacral strain; Translations: [Strain of muscle, fascia and tendon of lower back, initial encounter] Onset: 5 07-18-2019 Episodic Substance-related disorders (1 source) Tobacco user; Translations: [Nicotine dependence, unspecified, uncomplicated] 02-28-2024 Chronic Superficial injury; contusion (12 sources) Contusion of foot; Translations: [Contusion of right foot, initial encounter] 05-15-2022 Episodic Systemic lupus erythematosus and connective tissue disorders (1 source) Sicca syndrome, unspecified; Translations: [Sicca syndrome (HCC)] Onset: Chronic Transient cerebral ischemia (20 sources) Transient cerebral ischemia; Translations: [Transient cerebral ischemic attack, unspecified] 03-15-2023 Chronic Unclassified (3 sources) cysto insertion stent, eswl Onset: 6 01-04-2006 Unclassified (1 source) Cognitive perceptual pattern 12-05-2024 Unclassified (1 source) Acute midline low back pain without sciatica; Translations: [Acute midline low back pain without sciatica] Onset: Unclassified (1 source) Acute cough; Translations: [Acute cough] Onset: Urinary tract infections (1 source) Interstitial cystitis (chronic) without hematuria; Translations: [Chronic interstitial cystitis] 02-17-2025 Chronic Viral infection (1 source) Disease caused by 2019-nCoV; Translations: [COVID-19] 06-26-2024 Episodic Past or Other Problems Problem Classification Problem Date Documented Date Episodic/Chronic Deficiency and other anemia (1 source) Anemia, unspecified; Translations: [Anemia, unspecified] Onset: 10-23-2024 Episodic Other circulatory disease (1 source) Personal history of transient ischemic attack (TIA), and cerebral infarction without residual deficits; Translations: [History of TIA (transient ischemic attack)] Onset: 11-14-2024 Episodic Other connective tissue disease (1 source) Other symptoms and signs involving the musculoskeletal system; Translations: [Other symptoms and signs involving the musculoskeletal system] Onset: 10-23-2024 Episodic Other injuries and conditions due to external causes (1 source) Unspecified injury of right shoulder and upper arm, initial encounter; Translations: [Injury of right shoulder, initial encounter] Onset: 05-24-2024 Episodic Other nervous system disorders (2 sources) Unspecified speech disturbances; Translations: [Speech disturbance, unspecified type] Onset: 10-25-2023 Episodic Other nervous system disorders (11 sources) Paresthesia; Translations: [Paresthesia of skin] Onset: 02-11-2024 10-22-2024 Episodic Other non-traumatic joint disorders (3 sources) Pain in left knee; Translations: [Pain in joint, lower leg] Onset: 04-10-2024 04-10-2024 Episodic Other non-traumatic joint disorders (2 sources) Pain in right wrist; Translations: [Right wrist pain] Onset: 07-29-2024 Episodic Other upper respiratory infections (16 sources) Sore throat symptom; Translations: [Acute sinusitis] Onset: 07-18-2024 12-08-2022 Episodic Unclassified (2 sources) Central sensitization 02-17-2025 Results Test Name Value Interpretation Reference Range Facility Urgent Care Visit Reporton 1 Urgent Care Visit Report [facility] [address], [address] [place] [address] OFFICE VISIT Date of Service: 03/25/25 MR#: [id number] Acct: [id number] Name: CODY SANTANA Rep #: [id number] : 1985 Provider: ALONZO Escoto Age/Sex: 39/F Location: [facility] Status: Signed Intake Vital Signs 01/30/25 09:29 03/25/25 15:47 Height 5 ft 3 in BP 130/70 H Blood Pressure Location Lt brachial Position Sitting Pulse 89 Pulse Source Monitor Temp 98.4 F Temp Source Oral Pulse Oximetry (%) 98 Oxygen Delivery Method room air Intake Visit Reasons: Rash Chief Complaint: Rash Accompanied by: Self Allergies acetaminophen (From [place]) Allergy (Verified 03/25/25 15:42) Itching hydrocodone (From [place]) Allergy (Verified 03/25/25 15:42) Itching oxycodone (From Percocet) Adverse Reaction (Intermediate, Verified 03/25/25 15:42) Itching cephalexin monohydrate (From Keflex) Adverse Reaction (Verified 03/25/25 15:42) WEAKNESS, MUSCLE ACHES Medications ???Medication ???Instructions ???Recorded ???Confirmed ???Type medroxyprogesterone 150 mg/mL 150 mg IM .[id number] control 01/30/15 03/25/25 History intramuscular syringe citalopram 40 mg tablet 40 mg PO DAILY mental health 04/0403/25/25 History haloperidol 5 mg tablet 2.5 mg PO TID PRN Anxiety 04/04/19 03/25/25 History apixaban 5 mg tablet 5 mg PO BID blood thinner 06/03/20 03/25/25 History acetaminophen 325 mg capsule 325 mg PO ONCE PRN Pain 1-10 Or 03/25/25 History (Tylenol) Fever lidocaine 5 % topical patch 1 patch topical DAILY pain #6 ea 1 06/13/20 03/25/25 Rx (Lidoderm) albuterol sulfate 90 mcg/actuation 2 puff inhalation Q6H PRN 03/25/25 History aerosol inhaler CONGESTION/ALLERGIES cetirizine 10 mg tablet 10 mg PO DAILY allergies 03/15/23 03/25/25 History famotidine 40 mg tablet 40 mg PO Q12H reflux 03/15/2303/12 History lamotrigine 200 mg tablet 200 mg PO DAILY bipolar 03/15/23 1 History montelukast 10 mg tablet 10 mg PO QHS allergies 03/15/23 History triamcinolone acetonide 55 mcg 2 spray intranasal DAILY 03/15/23 03/25/25 History nasal spray aerosol erenumab-aooe 70 mg/mL 70 mg subcut .monthly 10/31/23 History subcutaneous auto-injector (Aimovig Autoinjector) cholecalciferol (vitamin D3) 25 50 mcg PO DAILY 10/22/24 03/25/25 History mcg (1,000 unit) capsule topiramate 200 mg tablet 200 mg PO BID 10/22/24 03/25/25 Hi story methocarbamol 500 mg tablet 250 - 500 mg (0.5 - 1 x 500 mg) PO 01/23/25 03/25/25 Rx Q8H PRN muscle spasm #20 tabs gabapentin 100 mg capsule 100 mg PO QHS 03/25/25 03/25/25 Hi story permethrin 5 % topical cream 1 applic topical Q14D 2 doses #60 03/25/25 03/25/25 Rx grams Nurse's Note: Rash, itching, blisters on hands and arms, drawing blood while scratching. Noticed 1 week ago. Tried Benadryl, no relief. [facility] Medical History Anemia Lumbar pain with radiation down right leg [...] does not use HPI HPI Chief Complaint: Rash Details: CODY SANTANA, is a 39 F who presents to the office today for initial evaluation proximately 7-day history of erythematous papular rash throughout torso, BUE of unknown etiology. She notes [id number] oral Benadryl has been of minimal to no assist, stating her symptoms are worse at night shortly before awakening. As far as he is aware no new clothes or lotions or detergents or other environmental exposures including pets. No complaints of constricted/pruritic airway or chest pain/shortness of breath/wheeze. No other associated symptoms and no other alleviating/aggravating factors. ROS Const Constitutional: No other (as above) Exam Const General: cooperative, healthy appearing and no acute distress Nutritional Appearance: average body habitus [place] (more content not included)... Normal [facility] CNOVon 03-04-2025 [facility] Office Visit ([facility]) CODY SANTANA ([id number]) 1985 F Date Time Provider Department 03/04/25 9:30 AM MICHELLE MARVIN During your visit today, we recorded the following information about you: Temperature Pulse Respiration Blood pressure 98.8 degrees 84/minute 20/minute 89/65 Weight 90.6 kg Michelle Marvin, MARLEEN.TITLE ABSTRACTOR 03/04/2025 10:29 AM Signed [facility] Subjective Cody Santana is a 39 year old female. Patient presents with: Back Pain: Left side lower back pain, swelling and LROM, states bent over and felt pain x 1 days Back Pain The patient is a 39-year-old female with a history of chronic low back pain, presenting for an acute exacerbation. Chronic Low Back Pain: - Acute exacerbation of low back pain after bending to dry legs post-shower. - Pain localized to the lower back, described as "going across." - Denies radiation of pain to legs, or loss of bowel or bladder control. - History of recurrent back pain; not a new issue. - Previous episodes managed with corticosteroids and muscle relaxants, which have been effective. Review of Systems Musculoskeletal: Positive for back pain. Gastrointestinal: (-) bowel incontinence Genitourinary: (-) urinary incontinence Musculoskeletal: (+) low back pain, (-) radiating lower extremity pain Objective BP 89/65 Pulse 84 Temp 37.1 ?C (98.8 ?F) Resp 20 Wt 90.6 kg (199 lb 11.8 oz) LMP (LMP Unknown) SpO2 99% BMI 35.38 kg/m? Physical Exam General: No acute distress. Back: Tenderness in lower back. { 1. Acute midline low back pain without sciatica (M54.50) - Chronic low back pain with acute exacerbation; no radiation to legs, no bowel or bladder dysfunction. - Start prednisone as prescribed. - Start muscle relaxant as prescribed. - Educated on proper use of medications and supportive therapy; instructed to avoid driving or operating heavy machinery while taking muscle relaxant due to risk of drowsiness. - Provided work note for today. - Patient agreeable to care plan. and Recording using Dr Lal [employer] software for draft documentation of the visit was discussed with the patient/authorized b2b outside sales representative; all questions welcomed and answered. Patient/authorized b2b outside sales representative agreed to proceed History and Record Review External record(s) reviewed: no prior records and other (see comments). Disposition The patient was discharged. Procedures Allergies As of Date: 03/04/2025 Noted Allergy Reaction KEFLEX (CEPHALEXIN) 09/14/2023 14 - Other: See Comments Comments: Achy, weak PERCOCET (OXYCODONE-ACETAMINOPHE N)09/14/2023 14 - Other: See Comments Comments: Nose itch Date Reviewed: 03/04/2025 Reviewed by: Gabrielle Courtney LPN - Fully Assessed Reason for Visit: Back Pain [12] Cmt: Left side lower back pain, swelling and LROM, states bent over and felt pain x 1 days Visit Diagnosis:Acute midline low back pain without sciatica [M54.50] Order(s):predniSONE (DELTASONE) 10 mg tabletTake 4 tabs daily for 3 days, then 2 tabs daily for 3 days, then 1 tab daily for 3 days with food.Disp: 21 tabletRfl: 0 cyclobenzaprine (FLEXERIL) 10 mg tabletTake 1 tablet by mouth two times a day as needed for up to 7 days.Disp: 14 tabletRfl: 0 Prescriptions as of 03/04/2025 - predniSONE (DELTASONE) 10 mg tablet Take 4 tabs daily for 3 days, then 2 tabs daily for 3 days, then 1 tab daily for 3 days with food. - cyclobenzaprine (FLEXERIL) 10 mg tablet Take 1 tablet by mouth two times a day as needed for up to 7 days. - gabapentin (NEURONTIN) 100 mg capsule Take 1 capsule by mouth daily at bedtime for 30 days. - erenumab-aooe (AIMOVIG AUTOINJECTOR) 70 mg/mL auto-injector Inject 1 mL subcutaneously once every month. - lidocaine (LIDODERM) 5 % Apply 1 Patch as directed every 24 hours. - rimegepant (NURTEC ODT) 75 mg [...] TO THREE TIMES DAILY TO GROIN AREA DIRE (more content not included)... Normal [facility] CNOVon 02-17-2025 CN[facility] Office Visit (RHEUMN ) CODY SANTANA ([id number]) 1985 F Date Time Provider Department 02/17/25 1:00 PM BRINA SHELDON RHEUMN During your visit today, we recorded the following information about you: Temperature Pulse Blood pressure Weight 97.6 degrees 85/minute 110/64 89.5 kg Brian Sheldon MD 02/17/2025 3:52 PM Signed Rheumatology FOLLOW UP Date of Service: 02/17/2025 Patient: Cody Santana Medical Record: [id number] Primary Care Physician: Colton Kunz PA-C Last Rheumatology visit: 01/15/2025 (with Pramod Gomez) HPI The patient is a 39-year-old female with antiphospholipid syndrome and chronic pain syndrome, presenting for evaluation and management of refractory widespread musculoskeletal pain. Cody Santana is a 39-year-old female with a history of chronic pain, presenting for evaluation of diffuse pain and hypersensitivity. Cody reports chronic pain since a back sprain during with her youngest daughter, who is now 11 years old. Initially localized to the back, the pain has progressively worsened over the past 5-6 months and now involves the hips, thighs, and upper arms. She describes the pain as constant, 24/7, and exacerbated by certain movements, lifting, twisting, and turning. She experiences significant discomfort even from light touch, such as her cats walking on her or being hugged. Massage provides minimal relief and often increases pain due to underlying irritation and tightness. She notes that by the end of the day, her legs become hypersensitive to touch, and she experiences swelling in her ankles, knees, wrists, and back, particularly after work. Morning stiffness lasts up to an hour but improves with movement. 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 Due to the severity of her pain, she is training someone to take her position and plans to reduce her workload. She also reports numbness and tingling in her toes and various spots on her legs. She denies changes in finger color with cold exposure and has no history of migraines. She experiences intermittent chest discomfort described as a "twitch," lasting 3-5 minutes, primarily noticed at work. She has a history of three TIAs, the first characterized by weakness, feeling "off," and slurred speech, leading to hospitalization. She is currently on Eliquis due to a diagnosis of lupus anticoagulant. She reports dry mouth and a history of dental issues, including cavities and a missing half tooth. She experiences seasonal pruritic rashes due to sun allergy, exacerbated by heat and humidity at work. The rash persists throughout the summer and improves in the fall. She has not been using sunscreen consistently. She has a history of IBS, with alternating constipation and diarrhea, and urinary urgency with occasional incontinence. She denies any history of joint dislocations other than frequent ankle sprains. She reports hypermobility in her thumbs and a family history of hypermobility in her siblings and two oldest children. She has a history of depression and anxiety, well-controlled on stable medication for the past four years. She denies current feelings of depression related to her pain but expresses frustration and a desire for answers and relief. She underwent a cervical fusion two years ago, which alleviated some symptoms but necessitates caution with lifting and movements. She has tried various physical therapies, finding aqua therapy beneficial in the past. She is currently under the care of a rheumatology PA in [place] and recently had an MRI. Pain Evaluation 01/02/2025 01/08/2025 01/15/2025 02/13/2025 02/17/2025 Pain Evaluation Pain Score 5 4 2 3 3 3 Location Generalized Generalized Other: See Comment Back-Lower Description Aching;Dull Aching;Burning;Dull;Itc alvarez;Numbness;Sharp;April oting;Sore;Stiffness;Te nderness; Tightness;Tingling Aching;Dull;Itching;Sha rp;Shooting;Sore;Stiffn ess;Tenderness;Tightnes s Aching;Sharp Duration (Timeframe) Years Years Years Frequency Continuous Continuous Continuous Intermittent Intervention Medication;Relaxation;C old;Heat;Positioning Reposition;Relaxation;C old;Heat Patient-Entered Data PROMIS Assessments 12/04/2024 12/26/2024 01/08/2025 PROMIS Global Health - (T-Scores - the mean of general population = 50. Five points is a clinically meaningful difference.) Physical T-Score 39.8 39.8 39.8 34.9 Mental T-Score 43.5 43.5 43.5 45.8 12/26/2024 01/08/2025 02/13/2025 PROMIS CAT Pain Interference PROMIS Pain Interference T-Score (range: 10 - 90) 68 (moderate) 67 (moderate) PROMIS Pain Interference Percentile 4 4 PROMIS Adult Short Form-Global Health Score (Mental) 43.5 (Good) 45.8 (Good) 12/04/2024 01/08/2025 02/13/2025 PROMIS CAT Fatigue PROMIS Fatigue T-Sco (more content not included)... Normal [facility] MRI PELVIS ORTHO GEN WO IVCO Non 01-31-2025 MRI PELVIS ORTHO GEN WO IVCON * * *Final Report* * * DATE OF EXAM: Jan 31 2025 12:55PM [id number] - MRI PELVIS ORTHO GEN WO IVCON / PROCEDURE REASON: multiple diagnoses * * * * Physician Interpretation * * * * MRI MUSCULOSKELETAL PELVIS WITHOUT CONTRAST INDICATION: Pain in joint, multiple sites Sacroiliac pain Encounter for screening for other musculoskeletal disorder Inflammatory back pain. COMPARISON: None. TECHNIQUE: Multiplanar PD, T1 and T2 weighted images. RESULT: No enlarged pelvic lymph nodes or abnormal pelvic fluid. Hip joints: Within normal limits. Lack of joint fluid limits evaluation of labrum and cartilage. Sacroiliac joints: Within normal limits. Pubic symphysis: Within normal limits. Tendons: Within normal limits including the iliopsoas, hamstring, gluteal and rectus femoris tendons. Mild hamstring origin tendinosis. Muscles: Within normal limits. Bone Marrow: Within normal limits. No fractures or marrow replacing lesions. IMPRESSION: NO MRI FINDINGS OF INFLAMMATORY ARTHROPATHY. Car Tracer: LUDIVINA Transcribe Date/Time: Feb 01 2025 9:37A Dictated by : JADE MELENDEZ MD This examination was interpreted and the report reviewed and electronically signed by: JADE MELENDEZ MD on Feb 01 2025 9:40AM EST [id number] Normal [facility] Emergency Department Summary on 01-30-2025 Emergency Department Summary [facility] Medical Records Department [address] [place] [id number] Emergency Department Summary 01/30/25 MR#: [id number] Acct: [id number] Name: CODY SANTANA Rep #: [id number] : 1985 39 From: Luis Wilkerson MD PCP: Colton Kunz PA-C Status:DEP ER Location: ED HPI History of Present Illness Chief Complaint: Back Informant: patient Narrative Narrative: 39-year-old female states yesterday evening she stumbled and almost fell, she caught herself by crossing her left leg over her right she thinks, and in doing this without falling, she felt a pop in her right hip pointing to the groin, she has been having increased pain in the right hip and right low back/buttock ever since then. She states she has been having pain in his general area for the past month or so, has been following with doctors at the [facility], and she states she has an MRI scheduled for tomorrow, and they have told her she may have SI joint issues. She does point to pain in that area, but also states she is sometimes having discomfort in the toes of the right foot but not necessarily numbness or tingling. Hurts to bear weight but she is barely able. She denies any other injury or pain. She states she was seen here before for some of this and given a prescription for a muscle relaxer and she has tried that and it is not helping. States she wants something to get her through work tonight. [facility] Medical History Anemia Lumbar pain with radiation down right leg Dental caries Brain TIA Dysarthria Chronic migraine Anxiety and depression History of venous thromboembolism Obesity Tobacco use History of nephrolithiasis Chronic neck and back pain Factor 5 Leiden mutation, heterozygous Home Medications ???Medication ???Instructions ???Recorded ???Last Taken ???Type medroxyprogesterone 150 mg/mL 150 mg IM .[id number] control 01/30/15 08/24/24 11:00 History intramuscular syringe [...] cetirizine 10 mg tablet 10 mg PO DAILY allergies 03/15/23 10/22/24 10:00 History 10 mg [...] 11:00 History nasal spray aerosol 2 spray erenumab-aooe 70 mg/mL 70 mg subcut .monthly 10/31/2302/03 10:00 History subcutaneous auto-injector 70 mg (Aimovig Autoinjector) cholecalciferol (vitamin D3) 25 50 mcg PO DAILY 10/22/24 10/22/24 10:00 History mcg (1,000 unit) capsule 50 mcg topiramate 200 mg tablet 200 mg PO BID 10/22/24 10/22/24 11 :00 History 200 mg methocarbamol 500 mg tablet 250 - 500 mg (0.5 - 1 x 500 mg) PO 01/23/25 Unknown Rx Q8H PRN muscle spasm #20 tabs prednisone 20 mg tablet 40 mg (2 x 20 mg) PO DAILY 6 days 01/30/25 Unknown Rx #12 tabs Allergy/AdvReac Type Severity Reaction Status Date / Time acetaminophen (From [place]) Allergy Itching Verified 01/30/25 09:29 hydrocodone (From [place]) Allergy Itching Verified 01/30/25 09:29 oxycodone (From Percocet) AdvReac Intermediate Itching Verified 01/30/25 09:29 cephalexin monohydrate (From AdvReac WEAKNESS, Verified 01/30/25 09:29 Keflex) MUSCLE ACHES Family History Mother Heart [...] ROS ROS ED Constitutional Constitutional ED: Denies chills or fever(s) E (more content not included)... Normal [facility] HIP, UNI W/ Pelvis 2-3 Views on 01-30-2025 HIP, UNI W/ Pelvis 2-3 Views [facility] Imaging Services [address] [place] [address] HIP, UNI W/ Pelvis 2-3 Views MR#: [id number] Acct: [id number] Name: CODY SANTANA Rep #: [id number] : 1985 F 39 From: Tashi Noel MD PCP: Colton Kunz PA-C Status: REG ER Study: HIP, UNI W/ Pelvis 2-3 Views Date of Exam: Exam# [id number] Ordering Dr: Lusi Wilkerson MD PROCEDURE: HIP, UNI W/ PELVIS 2-3 VIEWS 01/30/2025 REASON FOR EXAM: INJURY TECHNIQUE: HIP, UNI W/ PELVIS 2-3 VIEWS Laterality: Right COMPARISON: None FINDINGS: Bones: No fracture Joints: Normal alignment. Soft tissues: Soft tissues are unremarkable. RAD/HIP, UNI W/ Pelvis 2-3 Views IMPRESSION: No acute abnormality Reading Location: [id number] CC: THERON Kunz; Dr. Luis Wilkerson MD Car Tracer: Signed Normal [facility] Emergency Department Summary on 01-23-2025 Emergency Department Summary [facility] Medical Records Department [address] [place] [address] Emergency Department Summary 01/23/25 MR#: [id number] Acct: [id number] Name: CODY SANTANA Rep #: [id number] : 1985 39 From: Ck Matias DO PCP: Colton Kunz PA-C Status:DEP ER Location: ED HPI History of Present Illness HPI Narrative: Patient presents with muscle spasms in her right hip that became worse over the past 3 days. Patient states it came on gradually. Patient denies any trauma or injury. Patient states it has been constant over the past 3 days. Patient describes her pain as a spasm. Patient states it is over the posterior and lateral aspect of the right hip. Patient states nothing makes it worse and nothing makes it better. Patient states that sometimes it causes her right leg to become weak and give out. Patient denies any paresthesias. Patient denies any bowel or bladder changes. Patient denies any saddle anesthesia. Chief Complaint: Lower Extremity Injury Informant: patient Onset/Context/Timing Onset: Days (3) Context: Gradual Onset Timing: Continuous Quality of Pain: - (Spasm) Location: Right hip Worsened by: Nothing Relieved by: Nothing Associated Symptoms Associated Symptoms: Positive for Weakness (Intermittent); Negative for Parasthesia or Loss of Funtion [facility] Medical History Anemia Lumbar pain with radiation down right leg Dental caries Brain TIA Dysarthria Chronic migraine Anxiety and depression History of venous thromboembolism Obesity Tobacco use History of nephrolithiasis Chronic neck and back pain Factor 5 Leiden mutation, heterozygous Home Medications ???Medication ???Instructions ???Recorded ???Last Taken ???Type medroxyprogesterone 150 mg/mL 150 mg IM .[id number] control 01/30/15 08/24/24 11:00 History intramuscular syringe 150 mg citalopram 40 mg tablet 40 mg PO DAILY mental health 04/0410/22/24 10:00 History 40 mg haloperidol 5 mg tablet 2.5 mg PO TID PRN Anxiety 04/04/19 Unknown History apixaban 5 mg tablet 5 mg PO BID blood thinner 06/03/20 10/22/24 12:30 History 5 mg acetaminophen 325 mg capsule 325 mg PO ONCE PRN Pain 1- Or Unknown History (Tylenol) Fever lidocaine 5 % topical patch 1 patch topical DAILY pain #6 ea 1 06/13/20 09/20/24 11:00 Rx (Lidoderm) 1 patch albuterol sulfate 90 mcg/actuation 2 puff inhalation Q6H PRN Unknown History aerosol inhaler CONGESTION/ALLERGIES cetirizine 10 mg tablet 10 mg PO DAILY allergies 03/15/23 10/22/24 10:00 History 10 mg famotidine 40 mg tablet 40 mg PO Q12H reflux 03/15/23 0508/06 23:00 History 40 mg lamotrigine 200 mg tablet 200 mg PO DAILY bipolar 03/15/23 0 10/22/24 11:00 History 200 mg montelukast 10 mg tablet 10 mg PO QHS allergies 03/15/23 22:00 History 10 mg triamcinolone acetonide 55 mcg 2 spray intranasal DAILY 03/15/23 10/18/24 11:00 History nasal spray aerosol 2 spray erenumab-aooe 70 mg/mL 70 mg subcut .monthly 10/31/2302/03 10:00 History subcutaneous auto-injector 70 mg (Aimovig Autoinjector) cholecalciferol (vitamin D3) 25 50 mcg PO DAILY 10/22/24 10/22/24 10:00 History mcg (1,000 unit) capsule 50 mcg topiramate 200 mg tablet 200 mg PO BID 10/22/24 10/22/24 11 :00 History 200 mg methocarbamol 500 mg tablet 250 - 500 mg (0.5 - 1 x 500 mg) PO 01/23/25 Unknown Rx Q8H PRN muscle spasm #20 tabs Allergy/AdvReac Type Severity Reaction Status Date / Time acetaminophen (From [place]) Allergy Itching Verified 01/23/25 03:15 hydrocodone (From [place]) Allergy Itching Verified 01/23/25 03:15 oxycodone (From Percocet) AdvReac Intermediate Itching Verified 01/23/25 03:15 cephalexin monohydrate (From AdvReac WEAKNESS, Verified 01/23/25 03:15 Keflex) MUSCLE ACHES Family History Mother Heart [...] ROS ROS ED Constitutional Constitutional ED: Denies chills or fever(s) Eyes Eyes: Denies blurry vision or change in vision ENT ENT ED: Denies rhinorrhea or sore throat Cardiovascular Cardiovascular: Denies chest pain or palpitations Respiratory/Chest Respirator (more content not included)... Normal [facility] CBC W Auto Differential pane l (Bld)on 01-15-2025 Basophils (Bld) [#/Vol] 0.06 10*3/uL Normal <0.11 [facility] Comment on above: Order Comment: Speci men Type: BLOOD SPECIMENOrdering Facility: [facility] Address: [address] [place] [address] Performed By: #### 5 7021-8 ####[facility] MILLWNYLIA [id number] [place] [address] [place] Basophils/100 WBC (Bld) 0.6 % Normal [facility] Comment on above: Order Comment: Speci men Type: BLOOD SPECIMENOrdering Facility: [facility] Address: [address] [place] [address] Performed By: #### 5 7021-8 ####[facility] HOSPIT[facility]IA [id number] [place] [address] [place] Differential cell count method Nom (Bld) Auto Normal [facility] Comment on above: Order Comment: Speci men Type: BLOOD SPECIMENOrdering Facility: [facility] Address: [address] [place] [address] Performed By: #### 5 7021-8 ####[facility] MILLWNCLIA [id number] [place] [address] [place] Eosinophils (Bld) [#/Vol] 0.09 10*3/uL Normal <0.46 [facility] Comment on above: Order Comment: Speci men Type: BLOOD SPECIMENOrdering Facility: [facility] Address: [address] [place] [address] Performed By: #### 5 7021-8 ####[facility] MILLWNCLIA [id number] [place] [address] [place] Eosinophils/100 WBC (Bld) 0.9 % Normal [facility] Comment on above: Order Comment: Speci men Type: BLOOD SPECIMENOrdering Facility: [facility] Address: [address] [place] [address] Performed By: #### 5 7021-8 ####[facility] INSTITUTELISA [id number] [place] [address] [place] Erythrocyte distribution width (RBC) [Ratio] 14.0 % Normal 11.5-15.0 [facility] Comment on above: Order Comment: Speci men Type: BLOOD SPECIMENOrdering Facility: [facility] Address: [address] [place] [address] Performed By: #### 5 7021-8 ####[facility] [id number] [place] [address] [place] Hematocrit (Bld) [Volume fraction] 36.6 % Normal 36.0-46.0 [facility] Comment on above: Order Comment: Speci men Type: BLOOD SPECIMENOrdering Facility: [facility] Address: [address] [place] [address] Performed By: #### 5 7021-8 ####[facility]EL[facility] [id number] [place] [address] [place] Hemoglobin (Bld) [Mass/Vol] 12.3 g/dL Normal 11.5-15.5 [facility] Comment on above: Order Comment: Speci men Type: BLOOD SPECIMENOrdering Facility: [facility] Address: [address] [place] [address] Performed By: #### 5 7021-8 ####[facility] INSTITUTENCLI [id number] [place] [address] [place] Immature granulocytes (Bld) [#/Vol] 0.03 10*3/uL Normal <0.10 [facility] Comment on above: Order Comment: Speci men Type: BLOOD SPECIMENOrdering Facility: [facility] Address: [address] [place] [address] Performed By: #### 5 7021-8 ####[facility]UTENC[facility] [id number] [place] [address] [place] Immature granulocytes/100 WBC (Bld) 0.3 % Normal [facility] Comment on above: Order Comment: Speci men Type: BLOOD SPECIMENOrdering Facility: [facility] Address: [address] [place] [address] Performed By: #### 5 7021-8 ####[facility] [id number] [place] [address] [place] Lymphocytes (Bld) [#/Vol] 3.57 10*3/uL Normal 1.00-4.00 [facility] Comment on above: Order Comment: Speci men Type: BLOOD SPECIMENOrdering Facility: [facility] Address: [address] [place] [address] Performed By: #### 5 7021-8 ####[facility] [id number] [place] [address] [place] Lymphocytes/100 WBC (Bld) 34.3 % Normal [facility] Comment on above: Order Comment: Speci men Type: BLOOD SPECIMENOrdering Facility: [facility] Address: [address] [place] [address] Performed By: #### 5 7021-8 ####[facility] [id number] [place] [address] [place] MCH (RBC) [Entitic mass] 31.4 pg Normal 26.0-34.0 [facility] Comment on above: Order Comment: Speci men Type: BLOOD SPECIMENOrdering Facility: [facility] Address: [address] [place] [address] Performed By: #### 5 7021-8 ####[facility] ANGEWNCLIA [id number] [place] [address] [place] MCHC (RBC) [Mass/Vol] 33.6 g/dL Normal 30.5-36.0 [facility] Comment on above: Order Comment: Speci men Type: BLOOD SPECIMENOrdering Facility: [facility] Address: [address] [place] [address] Performed By: #### 5 7021-8 ####[facility] INSTITUTENCLIA [id number] [place] [address] [place] MCV (RBC) [Entitic vol] 93.4 fL Normal 80.0-100.0 [facility] Comment on above: Order Comment: Speci men Type: BLOOD SPECIMENOrdering Facility: [facility] Address: [address] [place] [address] Performed By: #### 5 7021-8 ####[facility] INSTITUTENCLIA [id number] [place] [address] [place] Monocytes (Bld) [#/Vol] 0.69 10*3/uL Normal <0.87 [facility] Comment on above: Order Comment: Speci men Type: BLOOD SPECIMENOrdering Facility: [facility] Address: [address] [place] [address] Performed By: #### 5 7021-8 ####[facility] INSTITUTENCLIA [id number] [place] [address] [place] Monocytes/100 WBC (Bld) 6.6 % Normal [facility] Comment on above: Order Comment: Speci men Type: BLOOD SPECIMENOrdering Facility: [facility] Address: [address] [place] [address] Performed By: #### 5 7021-8 ####[facility] INSTITUTENCLIA [id number] [place] [address] [place] Neutrophils (Bld) [#/Vol] 5.97 10*3/uL Normal 1.45-7.50 [facility] Comment on above: Order Comment: Speci men Type: BLOOD SPECIMENOrdering Facility: [facility] Address: [address] [place] [address] Performed By: #### 5 7021-8 ####[facility] BOULEVARDWNYLIA [id number] [place] [address] [place] Neutrophils/100 WBC (Bld) 57.3 % Normal [facility] Comment on above: Order Comment: Speci men Type: BLOOD SPECIMENOrdering Facility: [facility] Address: [address] [place] [address] Performed By: #### 5 7021-8 ####[facility] [id number] [place] [address] [place] Nucleated RBC (Bld) [#/Vol] 10*3/uL Normal <0.01 [facility] Comment on above: Order Comment: Speci men Type: BLOOD SPECIMENOrdering Facility: [facility] Address: [address] [place] [address] Performed By: #### 5 7021-8 ####[facility] [id number] [place] [address] [place] Nucleated RBC/100 WBC (Bld) [Ratio] 0.0 /100 WBC Normal [facility] Comment on above: Order Comment: Speci men Type: BLOOD SPECIMENOrdering Facility: [facility] Address: [address] [place] [address] Performed By: #### 5 7021-8 ####[facility]STITUTENCLIA [id number] [place] [address] [place] Platelet mean volume (Bld) [Entitic vol] 9.7 fL Normal 9.0-12.7 [facility] Comment on above: Order Comment: Speci men Type: BLOOD SPECIMENOrdering Facility: [facility] Address: [address] [place] [address] Performed By: #### 5 7021-8 ####[facility] ELLENNCLIA [id number] [place] [address] [place] Platelets (Bld) [#/Vol] 191 10*3/uL Normal 150-400 [facility] Comment on above: Order Comment: Speci men Type: BLOOD SPECIMENOrdering Facility: [facility] Address: [address] [place] [address] Performed By: #### 5 7021-8 ####[facility] INSTITUTENCLIA [id number] [place] [address] [place] RBC (Bld) [#/Vol] 3.92 10*6/uL Normal 3.90-5.20 [facility] Comment on above: Order Comment: Speci men Type: BLOOD SPECIMENOrdering Facility: [facility] Address: [address] [place] [address] Performed By: #### 5 7021-8 ####[facility] INSTITUTENCLIA [id number] [place] [address] [place] WBC (Bld) [#/Vol] 10.41 10*3/uL Normal 3.70-11.00 [facility] Comment on above: Order Comment: Speci men Type: BLOOD SPECIMENOrdering Facility: [facility] Address: [address] [place] [address] Performed By: #### 5 7021-8 ####[facility] INSTITUTENCLIA [id number] [place] [address] [place] CNOVon 01-15-2025 CNOV Office Visit (RHWSTR ) CODY SANTANA ([id number]) 1985 F Date Time Provider Department 01/15/25 2:00 PM PRAMOD GOMEZ During your visit today, we recorded the [...] lifelong anticoagulation - Previously negative Alfonzo at F, external reportedly positive without titer, unsure if [...] No known SLE, IBD, PsO Great grandmother [place] Palsy SOCIAL HISTORY: Currently smoking less than 1 pack per day ETOH None Marijuana - none Single 3 kids 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 Normal [facility] Comprehensive metabolic 2000 panelon 01-15-2025 Albumin [Mass/Vol] 4.4 g/dL Normal 3.9-4.9 [facility] Comment on above: Order Comment: Speci men Type: BLOOD SPECIMENOrdering Facility: [facility] Address: [address] [place] [address] Performed By: #### 2 4323-8 ####[facility] [id number] [place] [address] [place] ALP [Catalytic activity/Vol] 42 U/L Normal 34-123 [facility] Comment on above: Order Comment: Modestoi men Type: BLOOD SPECIMENOrdering Facility: [facility] Address: [address] [place] [address] Performed By: #### 2 4323-8 ####[facility] [id number] [place] [address] [place] ALT [Catalytic activity/Vol] 13 U/L Normal 7-38 [facility] Comment on above: Order Comment: Speci men Type: BLOOD SPECIMENOrdering Facility: [facility] Address: [address] [place] [address] Performed By: #### 2 4323-8 ####[facility]OSPITALL[facility] [id number] [place] [address] [place] Anion gap [Moles/Vol] 10 mmol/L Normal 8-15 [facility] Comment on above: Order Comment: Speci men Type: BLOOD SPECIMENOrdering Facility: [facility] Address: [address] [place] [address] Performed By: #### 2 4323-8 ####[facility] [id number] [place] [address] [place] AST [Catalytic activity/Vol] 14 U/L Normal 13-35 [facility] Comment on above: Order Comment: Speci men Type: BLOOD SPECIMENOrdering Facility: [facility] Address: [address] [place] [address] Performed By: #### 2 4323-8 ####[facility] [id number] [place] [address] [place] Bilirubin [Mass/Vol] 0.3 mg/dL Normal 0.2-1.3 [facility] Comment on above: Order Comment: Speci men Type: BLOOD SPECIMENOrdering Facility: [facility] Address: [address] [place] [address] Performed By: #### 2 4323-8 ####[facility] [id number] [place] [address] [place] Calcium [Mass/Vol] 9.1 mg/dL Normal 8.5-10.2 [facility] Comment on above: Order Comment: Speci men Type: BLOOD SPECIMENOrdering Facility: [facility] Address: [address] [place] [address] Performed By: #### 2 4323-8 ####[facility] [id number] [place] [address] [place] Chloride [Moles/Vol] 111 mmol/L High 98-107 [facility] Comment on above: Order Comment: Speci men Type: BLOOD SPECIMENOrdering Facility: [facility] Address: [address] [place], [place] [id number] Performed By: #### 2 4323-8 ####[facility] LORNEWNCLIHuber [id number] [place] [address] [place] CO2 [Moles/Vol] 18 mmol/L Low 22-30 [facility] Comment on above: Order Comment: Speci men Type: BLOOD SPECIMENOrdering Facility: [facility] Address: [address] [place] [address] Performed By: #### 2 4323-8 ####[facility]UTENCLI [id number] [place] [address] [place] Creatinine [Mass/Vol] 0.85 mg/dL Normal 0.58-0.96 [facility] Comment on above: Order Comment: Speci men Type: BLOOD SPECIMENOrdering Facility: [facility] Address: [address] [place] [address] Performed By: #### 2 4323-8 ####[facility] INSTITUTENCLIA [id number] [place] [address] [place] eGFRcr SerPlBld CKD-EPI 2020 90 mL/min/1.73m??? Normal >=60 [facility] Comment on above: Order Comment: Speci men Type: BLOOD SPECIMENOrdering Facility: [facility] Address: [address] [place] [address] Result Comment: Jasmin mated Glomerular Filtration Rate [...] actual GFR. Performed By: #### 2 4323-8 ####[facility] BOULEVARDWNCLIA [id number] [place] [address] [place] Glucose [Mass/Vol] 92 mg/dL Normal 74-99 [facility] Comment on above: Order Comment: Speci men Type: BLOOD SPECIMENOrdering Facility: [facility] Address: [address] [place], [place] [id number] Result Comment: The [place] [employer] (ADA) provides guidance for cutoff [...] Standards of Medical Care in Diabetes 2016, [place] [employer]. Diabetes Care. 2016.39(Suppl 1). Performed By: #### 2 4323-8 ####[facility] PETERSBURGHuber [id number] [place] [address] [place] Potassium [Moles/Vol] 3.9 mmol/L Normal 3.7-5.1 [facility] Comment on above: Order Comment: Speci men Type: BLOOD SPECIMENOrdering Facility: [facility] Address: [address] [place] [address] Performed By: #### 2 4323-8 ####[facility] PETERSBURGHuber [id number] [place] [address] [place] Protein [Mass/Vol] 7.3 g/dL Normal 6.3-8.0 [facility] Comment on above: Order Comment: Speci men Type: BLOOD SPECIMENOrdering Facility: [facility] Address: [address] [place] [address] Performed By: #### 2 4323-8 ####[facility] [id number] [place] [address] [place] Sodium [Moles/Vol] 139 mmol/L Normal 136-144 [facility] Comment on above: Order Comment: Speci men Type: BLOOD SPECIMENOrdering Facility: [facility] Address: [address] [place] [address] Performed By: #### 2 4323-8 ####[facility] [id number] [address] [place] Urea nitrogen [Mass/Vol] 13 mg/dL Normal 7-21 [facility] Comment on above: Order Comment: Speci men Type: BLOOD SPECIMENOrdering Facility: [facility] Address: [address] [place] [address] Performed By: #### 2 4323-8 ####[facility] [id number] [address] OF [facility] CNOVon 01-11-2025 CNOV Office Visit (WOUCA) CODY SANTANA ([id number]) 1985 F Date Time Provider Department 01/11/25 2:30 PM JAY DELGADO During your visit today, we recorded the following information about you: Temperature Pulse Respiration Blood pressure 97.4 degrees 70/minute 18/minute 118/78 Weight 90.5 kg Jay Delgado APRN.TITLE ABSTRACTOR 01/11/2025 3:17 PM Signed Subjective Cody Webster [...] She will otherwise follow-up with 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 - XR ANKLE GENERAL 3V AP/LAT/OBL RIGHT - PREDNISONE 50 MG TABLET Jay Delgado APRN.CNP Allergies As of Date: 01/11/2025 Noted Allergy Reaction KEFLEX (CEPHALEXIN) 09/14/2023 14 - Other: See Comments Comments: Achy, weak PERCOCET (OXYCODONE-ACETAMINOPHE N)09/14/2023 14 - Other: See Comments Comments: Nose itch Date Reviewed: 01/11/2025 Reviewed by: Jay Delgado APRN.TITLE ABSTRACTOR - Fully Assessed Reason for Visit: right ankle hurts [Other] Cmt: X 5 days-cannot recall an injury Primary Visit Diagnosis:Acute right ankle pain [M25.571] Order(s):XR ANKLE GENERAL 3V AP/LAT/OBL RIGHT [[id number]] Order #: [id number] FUTURE predniSONE (DELTASONE) 50 mgTake 1 tablet [...] disease without esophag*12/08/2022 Headache, unspecified [R51.9] 01/02/2025 halfway current use of anticoagulant therapy *01/02/2025 Migraine headache [G43.909] 12/08/2022 Paresthesia [R20.2] 02/11/2024 Seasonal allergic rhinitis [J30.2] 01/02/2025 Prescriptions ordered this encounter Disp Refills Start En (more content not included)... Normal [facility] XR ANKLE 3V AP/LAT/OBL RTon 01-11-2025 XR [...] soft tissue swelling. IMPRESSION: No acute abnormality [facility] Transcribe Date/Time: Jan 11 2025 3:05P Dictated by : YON HURD MD This examination was interpreted and the report reviewed and electronically signed by: YON HURD MD on Jan 11 2025 3:06PM EST [id number] Normal [facility] XR Ankle - right AP and Late ral and obliqueon 01-11-2025 IMPRESSION: No acute abnormality Car Tracer: [facility] Transcribe Date/Time: Jan 11 2025 3:05P [...] tissue swelling. DIVISION OF RADIOLOGY Provider, Gini robertson [place] - 01/11/2025 * * *Final Report* * [...] tissue swelling. IMPRESSION IMPRESSION: No acute abnormality Car Tracer: LUDIVINA Transcribe Date/Time: Jan 11 2025 3:05P Dictated by : YON HURD MD This examination was interpreted and the report reviewed and electronically signed by: YON HURD MD on Jan 11 2025 3:06PM [facility] Radiology Study observation (narrative) [facility] XR Ankle - right AP and Late ral and obliqueOrdered By: Ccf Provider on 01-11-2025 [facility] CNPHailey 01-08-2025 CNPN Telephone (JUSTEN) CODY SANTANA ([id number]) 1985 F Date Time Provider Department 01/08/25 ANTWON CALDERON During your visit today, we recorded the following information about you: Frances Sanches RN 01/08/2025 2:12 PM Signed ----- Message from [...] , it is OK to leave message [phone] (home) [phone] (cell) Payor: [place] [employer] / Plan: [facility] [place] / Product Type: Medicaid / Frances Grant RN 01/08/2025 2:13 PM Signed Not established with any provider May schedule sooner with any available provider Allergies As of Date: 01/08/2025 Noted Allergy Reaction KEFLEX (CEPHALEXIN) 09/14/2023 14 - Other: See Comments Comments: deb Esquivel PERCOCET (OXYCODONE-ACETAMINOPHE N)09/14/2023 14 - Other: See Comments Comments: Nose itch Date Reviewed: 01/02/2025 Reviewed by: Heidi Lu, SHIRLEY - Fully Assessed Prescriptions as of 01/08/2025 [...] disease without esophag*12/08/2022 Headache, unspecified [R51.9] 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/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 *01/02/2025 Migraine headache [G43.909] 12/08/2022 Paresthesia [R20.2] 02/11/2024 Seasonal allergic rhinitis [J30.2] 01/02/2025 Encounter Status:Closed by FRANCES SANCHES on 01/08/25 Normal [facility] ALFONZO BY IFA SCREENon 01-03-20 ALFONZO PATTERN 2 Cytoplasmic fine speckled Normal [facility] Comment on above: Order Comment: Speci men Type: BLOOD SPECIMENOrdering Facility: [facility] Address: [address] [place] [address] Performed By: #### A NAIFS ####[facility] LABCL[facility] [id number] [place] [address] [place] ALFONZO TITER 2 1:160 Normal [facility] Comment on above: Order Comment: Speci men Type: BLOOD SPECIMENOrdering Facility: [facility] Address: [address] [place] [address] Performed By: #### A NAIFS ####[facility]CL[facility] [id number] [place] [address] [place] Nuclear Ab pattern (S) [Interp] Nuclear homogeneous Normal [facility] Comment on above: Order Comment: Speci men Type: BLOOD SPECIMENOrdering Facility: [facility] Address: [address] [place] [address] Performed By: #### A NAIFS ####[facility] LABIA [id number] [place] [address] [place] Nuclear Ab Ql (S) Positive Abnormal Negative [facility] Comment on above: Order Comment: Speci men Type: BLOOD SPECIMENOrdering Facility: [facility] Address: [address] [place] [address] Result Comment: Anti -nuclear antibody test is used as an aid in diagnosis of systemic autoimmune diseases. Where positive and clinically warranted, follow-up using disease-specific testing is recommended. Low positive titers are not uncommon with advanced age, certain chronic infections, and malignancies among others. Test methodology: Indirect fluorescence immunoassay (IFA) using HEp-2 cells. 1:160 Performed By: #### A NAIFS ####[facility] LABIA [id number] [place] [address] [place] C3 SerPl-mCncon 01-02-2025 Complement C3 [Mass/Vol] 124 mg/dL Normal 86-166 [facility] Comment on above: Order Comment: Speci men Type: BLOOD SPECIMENOrdering Facility: [facility] Address: [address] [place] [address] Performed By: #### 4 485-9, 4498-2, 1987-5, 26603-6 ####[facility] [id number] [place] [address] [place] C4 SerPl-mCncon 01-02-2025 Complement C4 [Mass/Vol] 16 mg/dL Normal 13-46 [facility] Comment on above: Order Comment: Speci men Type: BLOOD SPECIMENOrdering Facility: [facility] Address: [address] [place] [address] Performed By: #### 4 485-9, 4498-2, 1987-10, 05432-3 ####[facility] LABCLIA [id number] [place] [address] [place] [facility] CNOVon 01-02-2025 CNOV Office Visit (RHWSTR ) CODY SANTANA ([id number]) 1985 F Date Time Provider Department 01/02/25 2:00 PM PRAMOD GOMEZ RHWSTR During your visit today, we recorded the following information about you: Pulse Respiration Blood pressure Weight 79/minute 17/minute 110/64 90.1 kg Pramod Gomez PA-C 01/02/2025 4:28 PM Signed Rheumatology CONSULTATION Date of Service: 01/02/2025 Patient: Cody Santana Medical Record: [id number] Primary Care Physician: Celina Kunz Last Rheumatology visit: None at [facility] Referring Provider: Local orthopedist, no referral on file, patient unsure provider Recording using Dr Lal [employer] software for draft documentation of the visit was discussed with the patient/authorized b2b outside sales representative; all questions welcomed and answered. Patient/authorized b2b outside sales representative agreed to proceed History of Present Illness [...] occasional History of prednisone use, she feels "amazing" but symptoms return after discontinuation. Cody Santana [...] denies alcoh (more content not included)... Normal [facility] CRP SerPl-mCncon 01-02-2025 CRP [Mass/Vol] mg/L Normal <0.9 [facility] Comment on above: Order Comment: Specdemetrius pena Type: BLOOD SPECIMENOrdering Facility: [facility] Address: [address] [place] [address] Performed By: #### 4 485-9, 4498-2, 1987-10, 05184-6 ####[facility]CL[facility] [id number] [place] [address] [place] Centromere Ab IF Ql (S)on Centromere Ab Qn (S) <0.2 Normal <1.0 [facility] Comment on above: Order Comment: [facility] Type: BLOOD SPECIMENOrdering Facility: [facility] Address: [address] [place] [address] Result Comment: Anti -centromere antibody is used as in aid in diagnosis of systemic sclerosis. Clinical correlation is required. Test Methodology: Multiplex flow immunoassay. Performed By: #### 1 7792-3, 84061-1, 13055-8, 20721-9, 03105-8, 91450-2, 83863-8, 49889-6 ####[facility]CLIA [id number] [address] [place] [address] [place] CENTROMERE AB QUAL Negative Normal Negative [facility] Comment on above: Order Comment: Speci men Type: BLOOD SPECIMENOrdering Facility: [facility] Address: [address] [place] [address] Performed By: #### 1 7792-3, 76628-8, 22409-2, 28812-7, 48629-2, 36857-1, 07477-6, 78343-1 ####[facility]CL[facility] [id number] [address] [place] [address] [place] Chromatin Ab Qnon 01-02-2025 CHROMATIN AB QUAL Negative Normal Negative [facility] Comment on above: Order Comment: Speci men Type: BLOOD SPECIMENOrdering Facility: [facility] Address: [address] [place] [address] Performed By: #### 1 7792-3, 36167-6, 96392-3, 61308-3, 06147-3, 54540-2, 31566-3, 68744-9 ####[facility]CLIA [id number] [address], [facility] [place] Chromatin Ab SerPl-aCncon Chromatin Ab Qn <0.2 Normal <1.0 [facility] Comment on above: Order Comment: Speci men Type: BLOOD SPECIMENOrdering Facility: [facility] Address: [address] [place] [address] Result Comment: Test Methodology: Multiplex flow immunoassay. Performed By: #### 1 7792-3, 69785-5, 15067-7, 08128-4, 36324-2, 70985-9, 56837-5, 03690-7 ####[facility]CLIA [id number] [address] [place] [address] [place] Cyclic citrullinated peptide IgG Qnon 01-02-2025 CCP ANTIBODY IGG QUALITATIVE Negative Normal Negative [facility] Comment on above: Order Comment: Speci men Type: BLOOD SPECIMENOrdering Facility: [facility] Address: [address] [place] [address] Performed By: #### 3 3935-8 ####[facility]CL[facility] [id number] [place] [address] [place] DNA double strand Ab IA Qn ( S)on 01-02-2025 DNA ANTIBODY 32 IU/mL Normal <=200 [facility] Comment on above: Order Comment: Speci men Type: BLOOD SPECIMENOrdering Facility: [facility] Address: [address] [place] [address] Result Comment: Nega tive: <200 IU/mL Equivocal: 201-300 IU/mL Moderate Positive: 301-800 IU/mL Strong Positive: >801 IU/mL Performed By: #### 3 2677-7 ####[facility]CLIA [id number] [place] [address] [place] DNA ANTIBODY QUALITATIVE INTERPRETATION Negative Normal Negative [facility] Comment on above: Order Comment: Speci men Type: BLOOD SPECIMENOrdering Facility: [facility] Address: [address] [place] [address] Performed By: #### 3 2677-7 ####[facility]CL[facility] [id number] [place] [address] [place] KARYN Jo1 Ab Ser-aCncon 2024 Linette-1 extractable nuclear Ab Qn (S) <0.2 Normal <1.0 [facility] Comment on above: Order Comment: Speci men Type: BLOOD SPECIMENOrdering Facility: [facility] Address: [address] [place] [address] Performed By: #### 1 7792-3, 93451-5, 10080-1, 69724-0, 68522-5, 60928-3, 12978-5, 31862-7 ####[facility]CL[facility] [id number] [place] [address] [place] KARYN COMMUNITY EDUCATION SPECIALIST Ab Ser-aCncon 2024 Ribonucleoprotein extractable nuclear Ab Qn (S) <0.2 Normal <1.0 [facility] Comment on above: Order Comment: Speci men Type: BLOOD SPECIMENOrdering Facility: [facility] Address: [address] [place] [address] Performed By: #### 1 7792-3, 52889-0, 36919-7, 05796-1, 72269-3, 73030-8, 66190-8, 32224-6 ####[facility]CL[facility] [id number] [address] [place] SM IgG Ser-aCncon 2024 Roach extractable nuclear IgG Qn (S) <0.2 Normal <1.0 [facility] Comment on above: Order Comment: Speci men Type: BLOOD SPECIMENOrdering Facility: [facility] Address: [address] [place] [address] Performed By: #### 1 7792-3, 28675-5, 21234-9, 69214-6, 57054-0, 08088-1, 15754-2, 21198-6 ####[facility]CL[facility] [id number] [address] [place] SS-A Ab Ser-aCncon 01-02 Sjogrens syndrome-A extractable nuclear Ab Qn (S) 1.8 AI High <1.0 [facility] Comment on above: Order Comment: Speci men Type: BLOOD SPECIMENOrdering Facility: [facility] Address: [address] [place] [address] Result Comment: Test Methodology: Multiplex flow immunoassay. Performed By: #### 1 7792-3, 37553-8, 73631-5, 50870-5, 02214-1, 54091-4, 48202-4, 47491-7 ####[facility] LABCLIA [id number] [place] [id number] [address] [place] KARYN SS-B Ab Ser-aCncon 01-02 Sjogrens syndrome-B extractable nuclear Ab Qn (S) <0.2 Normal <1.0 [facility] Comment on above: Order Comment: Speci men Type: BLOOD SPECIMENOrdering Facility: [facility] Address: [address] [place] [address] Result Comment: Anti -SSB (anti-La) antibody is used as an aid in diagnosis of a variety of systemic autoimmune diseases, especially for Sjogren's syndrome and systemic lupus erythematosus. Clinical correlation is required. Test Methodology: Multiplex flow immunoassay. Performed By: #### 1 7792-3, 08116-2, 60750-1, 22609-3, 19205-3, 48590-8, 97827-6, 53724-3 ####[facility]CLIA [id number] [place] [address] [place] ESR Westergren method (Bld) [Velocity]on 01-02-2025 ESR (Bld) [Velocity] 17 mm/h [facility] Interpretation and review of laboratory results Normal [facility] ESR (Bld) [Velocity] 17 mm/h Normal 0-20 [facility] Comment on above: Order Comment: Speci jean Type: BLOOD SPECIMENOrdering Facility: [facility] Address: [address] [place] [address] Performed By: #### 4 537-7 ####[facility] LABIA [id number] [place] [address] [place] Linette-1 extractable nuclear Ab Qn (S)on 01-02-2025 LINETTE 1 ANTIBODY QUAL Negative Normal Negative [facility] Comment on above: Order Comment: Speci men Type: BLOOD SPECIMENOrdering Facility: [facility] Address: [address] [place] [address] Result Comment: Anti -LINETTE-1 antibody is used as an aid in diagnosis of polymyositis and dermatomyositis especially with pulmonary involvement. A negative result cannot rule out polymyositis or dermatomyositis. Clinical correlation is required. Test Methodology: Multiplex flow immunoassay. Performed By: #### 1 7792-3, 48776-6, 19229-2, 82880-8, 70359-6, 23043-2, 35259-3, 11451-5 ####[facility] LABIA [id number] [address] [address] [place] Prot/Creat Uron 01-02-2025 Protein/Creatinine (U) [Mass ratio] 0.31 mg/mg High <0.15 [facility] Comment on above: Order Comment: Speci men Type: URINE SPECIMENOrdering Facility: [facility] Address: [address] [place] [address] Result Comment: Adul t Proteinuria Categories: <0.15 mg/mg is considered normal to mildly increased 0.15 - 0.50 mg/mg is considered moderately increased >0.50 mg/mg is considered severely increased KDIGO. (2013). KDIGO 2012 Clinical Practice Guideline for the Evaluation and Management of Chronic Kidney Disease. Official Journal of the International Society of Nephrology, 3(1), 1-150. Performed By: #### 2 890-2 ####[facility] [id number] [place] [address] [place] Protein/Creatinine (U) [Mass ratio]on 01-02-2025 Creatinine (U) [Mass/Vol] 19.5 mg/dL Low 20.0-300.0 [facility] Comment on above: Order Comment: Speci men Type: URINE SPECIMENOrdering Facility: [facility] Address: [address] [place] [address] Performed By: #### 2 890-2 ####[facility] [id number] [place] [id number] [place] Protein (U) [Mass/Vol] 6 mg/dL Normal 0-20 [facility] Comment on above: Order Comment: Speci men Type: URINE SPECIMENOrdering Facility: [facility] Address: [address] [place] [address] Performed By: #### 2 890-2 ####[facility] LABCLIA [id number] [place] [address] [place] Rheumatoid fact SerPl-aCncon 01-02-2025 Rheumatoid factor Qn [IU]/mL Normal <16 [facility] Comment on above: Order Comment: Speci men Type: BLOOD SPECIMENOrdering Facility: [facility] Address: [address] [place] [address] Performed By: #### 4 485-9, 4498-2, 1988-5, 50330-3 ####[facility] [id number] [place] [address] [place] Ribonucleoprotein extractabl e nuclear Ab Qn (S)on 01-02-2025 ANTI-COMMUNITY EDUCATION SPECIALIST QUAL Negative Normal Negative [facility] Comment on above: Order Comment: Speci men Type: BLOOD SPECIMENOrdering Facility: [facility] Address: [address] [place] [address] Performed By: #### 1 7792-3, 84497-2, 44681-1, 28114-4, 77508-3, 61444-5, 66561-8, 01959-4 ####[facility] LABIA [id number] [address] [place] RIBOSOMAL COMMUNITY EDUCATION SPECIALIST QUAL Negative Normal Negative [facility] Comment on above: Order Comment: Speci men Type: BLOOD SPECIMENOrdering Facility: [facility] Address: [address] [place] [address] Result Comment: Anti -Ribosomal RNA (Ribosomal P) antibody is used as an aid in diagnosis of systemic autoimmune diseases especially systemic lupus erythematosus and mixed connective tissue disease. Cross-reactivity with Anti-roach antibody is not uncommon. Clinical correlation is required. Test Methodology: Multiplex flow immunoassay. Performed By: #### 1 7792-3, 47306-5, 15011-3, 06688-0, 51167-6, 95931-7, 25731-9, 78496-4 ####[facility] [id number] [place] [id number] [place] SCL-70 extractable nuclear I gG IA Qn (S)on 01-02-2025 SCLERODERMA AB QUAL Negative Normal Negative [facility] Comment on above: Order Comment: Speci men Type: BLOOD SPECIMENOrdering Facility: [facility] Address: [address] [place] [address] Performed By: #### 1 7792-3, 59865-0, 58238-0, 10144-8, 13469-7, 92970-5, 06232-8, 30466-1 ####[facility] [id number] [place] [address] [place] SCLERODERMA IGG AB <0.2 Normal <1.0 [facility] Comment on above: Order Comment: Speci men Type: BLOOD SPECIMENOrdering Facility: [facility] Address: [address] [place] [address] Result Comment: Scl- 70/Scleroderma antibody test is used as an aid in diagnosis of systemic sclerosis especially the diffuse cutaneous form. A negative result cannot rule out systemic sclerosis. The final interpretation should consider clinical picture and other test results such as anti-centromere antibody. Test Methodology: Multiplex flow immunoassay. Performed By: #### 1 7792-3, 55969-4, 08386-7, 35920-8, 42165-0, 26827-3, 45671-7, 83816-5 ####[facility] [id number] [place] [id number] [place] Sjogrens syndrome-A extracta ble nuclear Ab Qn (S)on 01-02-2025 SSA ANTIBODY QUAL Positive Abnormal Negative [facility] Comment on above: Order Comment: Speci men Type: BLOOD SPECIMENOrdering Facility: [facility] Address: [address] [place] [address] Performed By: #### 1 7792-3, 03524-6, 71408-7, 53727-2, 90103-3, 61037-8, 80700-8, 84458-1 ####[facility] [id number] [place] [address] [place] Sjogrens syndrome-B extracta ble nuclear Ab Qn (S)on 01-02-2025 SSB ANTIBODY QUAL Negative Normal Negative [facility] Comment on above: Order Comment: Speci men Type: BLOOD SPECIMENOrdering Facility: [facility] Address: [address] [place] [address] Performed By: #### 1 7792-3, 42800-5, 98780-8, 40122-4, 42096-0, 80876-0, 96731-7, 86501-2 ####[facility] [id number] [place] [address] [place] Roach extractable nuclear Ig G Qn (S)on 01-02-2025 SM ANTIBODY QUAL Negative Normal Negative [facility] Comment on above: Order Comment: Speci men Type: BLOOD SPECIMENOrdering Facility: [facility] Address: [address] [place] [address] Result Comment: Anti -Sm (Roach) antibody is used as an aid in diagnosis of systemic lupus erythematosus and its presence is associated with renal disease. A negative result cannot rule out systemic lupus erythematosus. Clinical correlation is required. Test Methodology: Multiplex flow immunoassay. Performed By: #### 1 7792-3, 64926-2, 78468-5, 54549-2, 78777-9, 57297-7, 92657-1, 92054-1 ####[facility] LABIA [id number] [address] [address] [place] Urinalysis complete panel (U )on 01-02-2025 Bacteria uL 960.9 uL High - 941 uL [facility] Bilirubin Ql (U) Negative Negative [facility] Clarity (Unsp spec) Clear Clear [facility] Color (U) Yellow Yellow [facility] Epithelial cells LM.HPF (Urine sed) [#/Area] None Seen /HPF [facility] Glucose Test strip (U) [Mass/Vol] Negative Negative [facility] Hemoglobin Ql (U) Negative Negative [facility] Hyaline casts (Urine sed) [#/Area] 0 /[LPF] 0 /LPF [facility] Interpretation and review of laboratory results Abnormal [facility] Ketones Ql (U) Negative Negative [facility] Leukocyte esterase Test strip Ql (U) 1+ Abnormal Negative [facility] Nitrite Ql (U) Negative Negative [facility] pH (U) 7 [pH] 5.0 - 8.0 [facility] Protein (U) [Mass/Vol] Negative Negative [facility] RBC LM.HPF (Urine sed) [#/Area] 0-2 /HPF 0-2 /HPF [facility] Specific gravity (U) [Rel density] 1.008 1.005 - 1.030 [facility] Urobilinogen Ql (U) 0.2 EU/dL 0.2-1.0 EU/dL [facility] WBC LM.HPF (Urine sed) [#/Area] 0-5 /HPF 0-5 /HPF [facility] This test was xenia danielle and its performance characteristics determined by [facility]'s [facility] [place] ([facility]). It has not been cleared or approved by the FDA. [facility] is regulated under CLIA as qualified to perform high-complexity testing. This test is used for clinical purposes. It should not be regarded as investigational or for research. [facility] BACTERIA UL 960.9 uL High Negative [facility] Comment on above: Order Comment: Speci men Type: URINE SPECIMENOrdering Facility: [facility] Address: [address] [place] [address] Performed By: #### 2 4356-8 ####[facility] [id number] [place] [address] [place] Bilirubin Ql (U) Negative Normal Negative [facility] Comment on above: Order Comment: Speci men Type: URINE SPECIMENOrdering Facility: [facility] Address: [address] [place] [address] Performed By: #### 2 4356-8 ####[facility] LABCLIA [id number] [address] [place] [address] [place] Clarity (Unsp spec) Clear Normal Clear [facility] Comment on above: Order Comment: Speci men Type: URINE SPECIMENOrdering Facility: [facility] Address: [address] [place], [place] [address] Performed By: #### 2 4356-8 ####[facility]CLIA [id number] [address] [place] [address] [place] Color (U) Yellow Normal Yellow [facility] Comment on above: Order Comment: Speci men Type: URINE SPECIMENOrdering Facility: [facility] Address: [address] [place] [address] Performed By: #### 2 4356-8 ####[facility]CLIA [id number] [address] [place] [address] [place] Epithelial cells LM.HPF (Urine sed) [#/Area] None Seen Normal [facility] Comment on above: Order Comment: Speci men Type: URINE SPECIMENOrdering Facility: [facility] Address: [address] [place] [address] Performed By: #### 2 4356-8 ####[facility]CLIA [id number] [address] [place] [address] [place] Glucose Test strip (U) [Mass/Vol] Negative Normal Negative [facility] Comment on above: Order Comment: Speci men Type: URINE SPECIMENOrdering Facility: [facility] Address: [address] [place] [address] Performed By: #### 2 4356-8 ####[facility]CL[facility] [id number] [address] [place] [address] [place] Hemoglobin Ql (U) Negative Normal Negative [facility] Comment on above: Order Comment: Speci men Type: URINE SPECIMENOrdering Facility: [facility] Address: [address] [place], [place] [address] Performed By: #### 2 4356-8 ####[facility]CL[facility] [id number] [address] [place] [address] [place] Hyaline casts (Urine sed) [#/Area] 0 /[LPF] Normal 0 /LPF [facility] Comment on above: Order Comment: Speci men Type: URINE SPECIMENOrdering Facility: [facility] Address: [address] [place] [address] Performed By: #### 2 4356-8 ####[facility]CL[facility] [id number] [address] [place] [address] [place] Ketones Ql (U) Negative Normal Negative [facility] Comment on above: Order Comment: Speci men Type: URINE SPECIMENOrdering Facility: [facility] Address: [address] [place] [address] Performed By: #### 2 4356-8 ####[facility]CLIA [id number] [address], [place] [address] [place] Leukocyte esterase Test strip Ql (U) 1+ Abnormal Negative [facility] Comment on above: Order Comment: Speci men Type: URINE SPECIMENOrdering Facility: [facility] Address: [address] [place] [address] Performed By: #### 2 4356-8 ####[facility]CL[facility] [id number] [address], [place] [address] [place] Nitrite Ql (U) Negative Normal Negative [facility] Comment on above: Order Comment: Speci men Type: URINE SPECIMENOrdering Facility: [facility] Address: [address] [place] [address] Performed By: #### 2 4356-8 ####[facility]CL[facility] [id number] [place] [id number] [place] pH (U) 7.0 [pH] Normal 5.0-8.0 [facility] Comment on above: Order Comment: Speci men Type: URINE SPECIMENOrdering Facility: [facility] Address: [address] [place] [address] Performed By: #### 2 4356-8 ####[facility] LABIA [id number] [place] [address] [place] Protein (U) [Mass/Vol] Negative Normal Negative Cl [facility] Comment on above: Order Comment: Speci men Type: URINE SPECIMENOrdering Facility: [facility] Address: [address] [place] [address] Performed By: #### 2 4356-8 ####[facility] LABIA [id number] [place] [address] [place] RBC LM.HPF (Urine sed) [#/Area] 0-2 /HPF Normal 0-2 /HPF [facility] Comment on above: Order Comment: Speci men Type: URINE SPECIMENOrdering Facility: [facility] Address: [address] [place] [address] Performed By: #### 2 4356-8 ####[facility] [id number] [place] [address] [place] Specific gravity (U) [Rel density] 1.008 Normal 1.005-1.030 [facility] Comment on above: Order Comment: Speci men Type: URINE SPECIMENOrdering Facility: [facility] Address: [address] [place] [address] Performed By: #### 2 4356-8 ####[facility] LABIA [id number] [place] [address] [place] Urobilinogen Ql (U) 0.2 EU/dL Normal 0.2-1.0 EU/dL [facility] Comment on above: Order Comment: Speci men Type: URINE SPECIMENOrdering Facility: [facility] Address: [address] [place] [address] Performed By: #### 2 4356-8 ####[facility] LABIA [id number] [place] [address] [place] WBC LM.HPF (Urine sed) [#/Area] 0-5 /HPF Normal 0-5 /HPF [facility] Comment on above: Order Comment: Speci men Type: URINE SPECIMENOrdering Facility: [facility] Address: [address] [place] [address] Performed By: #### 2 4356-8 ####[facility] LABCLIA [id number] [place] [id number] [place] XR HIP 3V PELV+ [...] paresthesias .PT STATES RIGHT KNEE PAIN (accession [id number]), PT STATES HIP AND PELVIC PAIN (accession [id number]), PT STATES RIGHT HIP PAIN (accession [id number]) TECHNIQUE: XR KNEE 4V AP/PA BOTH+LAT/MALLY RT, [...] acute abnormality. No evidence for inflammatory arthritis. Car Tracer: PSCB Transcribe Date/Time: Jan 04 2025 1:43P Dictated by : YON HURD MD This examination was interpreted and the report reviewed and electronically signed by: YON HURD MD on Jan 04 2025 1:44PM EST [id number] Normal [facility] XR KNEE 4V AP/PA BOTH+LAT/ME R RTon [...] paresthesias .PT STATES RIGHT KNEE PAIN (accession [id number]), [place] HIP AND PELVIC PAIN (accession [id number]), [place] RIGHT HIP PAIN (accession [id number]) TECHNIQUE: XR KNEE 4V AP/PA BOTH+LAT/MALLY RT, [...] acute abnormality. No evidence for inflammatory arthritis. Car Tracer: PSCB Transcribe Date/Time: Jan 04 2025 1:43P Dictated by : YON HURD MD This examination was interpreted and the report reviewed and electronically signed by: YON HURD MD on Jan 04 2025 1:44PM EST [id number] Normal [facility] XR SI JTS 2V AP PELV/FERGUSO Non [...] paresthesias .PT STATES RIGHT KNEE PAIN (accession [id number]), PT STATES HIP AND PELVIC PAIN (accession [id number]), [place] RIGHT HIP PAIN (accession [id number]) TECHNIQUE: XR KNEE 4V AP/PA BOTH+LAT/MALLY RT, [...] acute abnormality. No evidence for inflammatory arthritis. Car Tracer: PSCB Transcribe Date/Time: Jan 04 2025 1:43P Dictated by : YON HURD MD This examination was interpreted and the report reviewed and electronically signed by: YON HURD MD on Jan 04 2025 1:44PM EST [id number] Normal [facility] cCP IgG SerPl-aCncon 01-02- 025 Cyclic citrullinated peptide IgG Qn <15 Normal <20 [facility] Comment on above: Order Comment: Speci men Type: BLOOD SPECIMENOrdering Facility: [facility] Address: [address] [place] [address] Performed By: #### 3 3935-8 ####[facility] LABCLIA [id number] [place] [address] [place] [facility] Reporton 2024 [facility] . Pathology Reports Accession: Collected Date/Time: Received Date/Time: Pathologist: [id number] 12/26/2024 14:41 EDT 12/27/2024 18:00 EDT MD JOSÉ MIGUEL CHAVARRIA [facility] SPECIMEN: Specimen Description: Liquid Prep w/ HPV Specimen: Cervical Screening or Diagnostic: Screening RELEVANT HISTORY: LMP: not given [id number] SPECIMEN ADEQUACY: SATISFACTORY FOR EVALUATION Endocervical/Transforma tional zone component present INTERPRETATION/RESULTS: NEGATIVE FOR INTRAEPITHELIAL LESION OR MALIGNANCY SUGGESTIONS/EDUCATIONAL NOTES: This case has been reviewed for 10% QA rescreen HIGH RISK HPV TESTING: HPV Screen Only, LA Probe Negative HPV Screen Only, LA Probe Interp Data: Molecular methodology performed on the [employer] System. The APTIMA HPV Screening Assay is [...] and evaluated with the assistance of the [employer] ThinPrep Test Imaging System. Pathology Reports Accession: Collected Date/Time: Received Date/Time: Pathologist: [id number] 12/26/2024 14:41 EDT 12/27/2024 18:00 EDT MD JOSÉ MIGUEL CHAVARRIA Verified by Pathology report verified by [facility] Screened by: WADE Electronically signed by JOSÉ MIGUEL CHAVARRIA MD Sign-Out Date: 01/01/2025 16:34 Performing Lab: [facility], [address] [place] [address] Pathology Dept Disclaimer The Pap test is a screening test for cervical cancer. As evidenced by published data, it is subject to both inherent false negative and false positive results. Your patient's results should be interpreted in context with pertinent clinical history including gynecological examination. Normal [facility] HPVSCon 01-01-2025 HPV Source Cervix Normal [facility] Comment on above: Order Comment: Order placed by AP_HPV_ORDER rule from [id number] Performed By: #### H PVSC #### [place] [address] HPV Screen Only, LA Probe Negative Normal Negative [facility] Comment on above: Order Comment: Order placed by AP_HPV_ORDER rule from [id number] Result Comment: Dora erazo methodology performed on the [employer] System. The APTIMA HPV Screening Assay is [...] current practice guidelines. Performed By: #### H PVS #### [place] [address] MR Cervical spine WO [facility] 12-30-2024 IMPRESSION: * Questionable patchy STIR [...] vertebrae with counting from the craniocervical junction. Car Tracer: LUDIVINA Transcribe Date/Time: Dec 30 2024 4:40P Dictated by : KASSIDY LUJAN MD This examination was interpreted and the report reviewed and electronically signed by: KASSIDY LUJAN MD on Dec 30 2024 4:54PM [facility] DIVISION OF RADIOLOGY * * *Final Report* * * DATE OF EXAM: Dec 30 2024 3:29PM [facility] 0298 - MRI CERVICAL SPINE WO/W IVCON [...] or foraminal stenosis. DIVISION OF RADIOLOGY Provider, [facility] - 12/30/2024 * * *Final Report* * * DATE OF EXAM: Dec 30 2024 3:29PM JACK Paula8 - MRI CERVICAL SPINE WO/W IVCON / [...] vertebrae with counting from the craniocervical junction. Car Tracer: LUDIVINA Transcribe Date/Time: Dec 30 2024 4:40P Dictated by : KASSIDY LUJAN MD This examination was interpreted and the report reviewed and electronically signed by: KASSIDY LUJAN MD on Dec 30 2024 4:54PM EST [facility] Radiology Study observation (narrative) [facility] MR Cervical spine WO and W c ontrast IVOrdered By: [facility] Provider on 12-30-2024 [facility] MRI CERVICAL SPINE WO/W IVCO Non 12-30-2024 MRI CERVICAL SPINE WO/W IVCON * * *Final Report* * * DATE OF EXAM: Dec 30 2024 3:29PM [facility] 0298 - MRI CERVICAL SPINE WO/W IVCON [...] vertebrae with counting from the craniocervical junction. Car Tracer: LUDIVINA Transcribe Date/Time: Dec 30 2024 4:40P Dictated by : KASSIDY LUJAN MD This examination was interpreted and the report reviewed and electronically signed by: KASSIDY LUJAN MD on Dec 30 2024 4:54PM EST [id number] Normal [facility] CNCOon 12-18-2024 CNCO Letter Text Normal [facility] CNOVon 12-18-2024 CNOV Office Visit (NEMN ) CODY SANTANA ([id number]) 1985 F Date Time Provider Department 12/18/24 2:30 PM NICK RACHEL During your visit today, we recorded the following information about you: Pulse Blood pressure Weight Height 108/minute 109/68 88.5 kg 1.6 m Nick Rachel MD 12/18/2024 3:32 PM [facility] NEW PATIENT EVALUATION/CONSULTATION Referral source: [place] [address] [place] [address] Also followed by: Patient Care Team: Neli Tripp, TITLE ABSTRACTOR as PCP - General (Family Medicine) PRINCIPAL [...] The patient consented to the use of [employer] software for draft documentation of the visit, consistent with [facility]?s Notice of Privacy Practices. Patient is currently being evaluated by general neurology, headache neurology, and cerebrovascular center. Cody reports that her symptoms began in March 2023 with a sudden onset of weakness, dizziness, and a sensation of impending collapse while at work. She describes feeling "spaced out" and unable to speak or comprehend fully, [...] and she notes that she has been "stuck" in positions where she cannot move without [...] Flowsheet Row Office Visit from 12/18/2024 in [facility] Upper Extremity Domain T Score 36 Lower Extremity Domain T Score 39 Cognitive Function Domain T Score 33 Positive Affect Well Being T Score -- Ability To Participate In Social Roles T Score 38 Satisfaction With Social Roles T Score 36 Neuro-QoL Symptoms (higher=worse symptoms) Flowsheet Row Office Visit from 12/18/2024 in [facility] Sleep Domain T Score 67 Fatigue Domain T Score 63 Anxiety Domain T Score 48 Depression Domain T Score 47 Stigma Domain T Score 60 Emotional Behavior Dyscontrol T Score -- PAST HISTORY: has a past medical history of [place] (more content not included)... Normal [facility] CNOVon 11-14-2024 CNOV Office Visit (NEADMN ) CODY SANTANA ([id number]) 1985 F Date Time Provider Department 11/14/24 10:00 AM JANET FERNANDEZ During your visit today, we recorded the following information about you: Pulse Blood pressure Weight Height 87/minute 112/67 87.1 kg 1.575 m Janet Fernandez APRN.TITLE ABSTRACTOR 11/14/2024 12:02 PM Signed [facility] [place] Follow-up Visit Follow-up note November 14, 2024 [...] B/B, tongue/cheek bite. Previous workup completed through [facility] included MRI brain, CTA head/neck, and echocardiogram. [...] noted slurred/garbled speech. Workup was completed through [facility] at that time including CT brain, CTA [...] records review on 10/31/24: Records received from [facility] and reviewed as below: Patient [...] scanned to (more content not included)... Normal [facility] 11-01-2024 [facility] Telephone (NHMNS2) CODY SANTANA ([id number]) 1985 F Date Time Provider Department 11/01/24 ANTWON ESCOBEDO [facility] During your visit today, we [...] Fully Assessed Reason for Visit: Insurance Authorization [[id number]] Kamryn Norris [Other] Prescriptions as of 11/01/2024 [...] Date: 11/01/2024 (None) Encounter Status:Closed by OD[facility] (NEUR[facility] CODY SANTANA ([id number]) 1985 F Date Time Provider Department 10/30/24 JANET FERNANDEZ [facility] During your visit today, we recorded the following information about you: Lela Scruggs, RN 10/30/2024 12:34 PM Signed Received staff message from provider as noted below: Janet Fernandez APRN.KOLE [facility] Pool Hi, Pt is scheduled with me on 11/14/[address] [facility] follow up. I have no hospital records [...] move to extended time slot? Thank you! KD" Call to patient to inquire reason for hospital visit. No answer. Left message to return call. Patient did see headache clinic 10-25-24 and it notes She was recently hospitalized for two days due to the severity of the migraine, which reportedly mimicked stroke symptoms. " Monica Calloway MA 10/31/2024 10:19 AM Signed Received [facility] medical records for patient Monica Calloway [...] Status:Closed by LELA SCRUGGS on 10/30/24 Normal [facility] Absolute lymphocyte countOrd ered By: Farhana Harden on 10-23-2024 Lymphocytes Auto (Unsp spec) [#/Vol] 3.27 10*3/uL 0.83-4.51 [facility] Absolute neutrophil countOrd ered By: Farhana Harden on 10-23-2024 Neutrophils (Bld) [#/Vol] 2.5 10*3/uL 2.0-7.7 [facility] Anion gap in Serum or Plasma Ordered By: Farhana Harden on 10-23-2024 Anion gap [Moles/Vol] 10 mmol/L 5-15 [facility] Automated lymphocyte count a s percentage of total leukocytesOrdered By: Farhana Harden on 10-23-2024 Lymphocytes/100 WBC Auto (Unsp spec) 49.8 % High 19-41 [facility] BUN/creatinine ratioOrdered By: Farhana Harden on 10-23-2024 Urea nitrogen/Creatinine [Mass ratio] 15.2 mg/mg 10-20 [facility] Basophil percentageOrdered B y: Farhana Harden on 10-23-2024 Basophils/100 WBC (Bld) 0.9 % 0-1 [facility] Bilirubin, totalOrdered By: Farhana Harden on 10-23-2024 Bilirubin [Mass/Vol] 0.25 mg/dL 0.00-1.30 [facility] Blood manual differential co mment interpretation (narrative result)Ordered By: Farhana Harden on 10-23-2024 Manual differential comment Bro (Bld) [Interp] SCANNED [facility] Brain W/WO Contraston 2024 Brain W/WO Contrast [facility] Imaging Services [address] [place], [place] [address] Brain W/WO Contrast MR#: [id number] Acct: [id number] Name: CODY SANTANA Rep #: [id number] : 1985 F 38 From: Lucina Gaston PCP: Care Physician,No Primary Status: ADM MARGY Study: Brain W/WO Contrast Date of Exam: 10/23/24 Exam# [id number] Ordering Dr: Farhana Harden DO PROCEDURE: BRAIN [...] a patient of this age. Reading Location: [place] [address] CC: Dr. Farhana Harden DO; No Primary Care Physician Car Tracer: Signed Normal [facility] CBC W/Diff, Automatedon 10-10 ATYPICAL LYMPH 2+ Normal [facility] Comment on above: Performed By: #### L 501.2300, L500.4100, L100.0100, L500.4050, L501.5200 ####[facility] [address] [place], [place], [address] SMEAR COMMENT SCANNED Normal [facility] Comment on above: Performed By: #### L 501.2300, L500.4100, L100.0100, L500.4050, L501.5200 ####[facility] [address] [place], [address] Calculated very low density lipoprotein (VLDL) cholesterol measurementOrdered By: Farhana Harden on 10-23-2024 Calculated very low density lipoprotein (VLDL) cholesterol measurement 21 mg/dL 5-40 [facility] Carbon dioxide, total [Moles /volume] in Central venous bloodOrdered By: Farhana Harden on 10-23-2024 CO2 [Moles/Vol] 17.7 mmol/L Low 21.0-32.0 [facility] Chloride assayOrdered By: Jim Harden on 10-23-2024 Chloride [Moles/Vol] 115 mmol/L High 98-108 [facility] Comprehensive Metabolic Prof ilon 10-23-2024 Albumin [Mass/Vol] 3.8 g/dL Normal 3.5-5.0 [facility] Comment on above: Order Comment: Comme nts: NPO at [place] prior to lipid panel Performed By: #### L 501.2300, L500.4100, L100.0100, L500.4050, L501.5200 ####[facility] [address] [place], [address] Albumin/Globulin [Mass ratio] 1.4 {ratio} Normal 0.9-2.4 [facility] Comment on above: Order Comment: Comme nts: NPO at [place] prior to lipid panel Performed By: #### L 501.2300, L500.4100, L100.0100, L500.4050, L501.5200 ####[facility] [address] [place], [address] ALK PHOS 47 U/L Normal 35-104 [facility] Comment on above: Order Comment: Comme nts: NPO at [place] prior to lipid panel Performed By: #### L 501.2300, L500.4100, L100.0100, L500.4050, L501.5200 ####[facility] [address] [place], [address] ALT [Catalytic activity/Vol] 14 U/L Normal <=34 [facility] Comment on above: Order Comment: Comme nts: NPO at [place] prior to lipid panel Performed By: #### L 501.2300, L500.4100, L100.0100, L500.4050, L501.5200 ####[facility] [address] [place], [address] AST [Catalytic activity/Vol] 19 U/L Normal <=31 [facility] Comment on above: Order Comment: Comme nts: NPO at [place] prior to lipid panel Performed By: #### L 501.2300, L500.4100, L100.0100, L500.4050, L501.5200 ####[facility] [address] [place], [address] Bilirubin [Mass/Vol] 0.25 mg/dL Normal 0.00-1.30 [facility] Comment on above: Order Comment: Comme nts: NPO at [place] prior to lipid panel Performed By: #### L 501.2300, L500.4100, L100.0100, L500.4050, L501.5200 ####[facility] [address] [place], [address] BUN/CRE 15.2 RATIO Normal 10-20 [facility] Comment on above: Order Comment: Comme nts: NPO at [place] prior to lipid panel Performed By: #### L 501.2300, L500.4100, L100.0100, L500.4050, L501.5200 ####[facility] [address] [place], [address] Calcium [Mass/Vol] 8.9 mg/dL Normal 7.6-11.0 [facility] Comment on above: Order Comment: Comme nts: NPO at [place] prior to lipid panel Performed By: #### L 501.2300, L500.4100, L100.0100, L500.4050, L501.5200 ####[facility] [address] [place], [address] Chloride [Moles/Vol] 115 mmol/L High 98-108 [facility] Comment on above: Order Comment: Comme nts: NPO at [place] prior to lipid panel Performed By: #### L 501.2300, L500.4100, L100.0100, L500.4050, L501.5200 ####[facility] [address] [place], [address] CO2 [Moles/Vol] 17.7 mmol/L Low 21.0-32.0 [facility] Comment on above: Order Comment: Comme nts: NPO at [place] prior to lipid panel Performed By: #### L 501.2300, L500.4100, L100.0100, L500.4050, L501.5200 ####[facility] [address] [place], [address] Creatinine [Mass/Vol] 0.90 mg/dL Normal 0.70-1.20 [facility] Comment on above: Order Comment: Comme nts: NPO at [place] prior to lipid panel Performed By: #### L 501.2300, L500.4100, L100.0100, L500.4050, L501.5200 ####[facility] [address] [place], [address] ECRCL 88.93 ml/min Normal 50-250 [facility] Comment on above: Order Comment: Comme nts: NPO at [place] prior to lipid panel Performed By: #### L 501.2300, L500.4100, L100.0100, L500.4050, L501.5200 ####[facility] [address] [place], [address] GAP 10 Normal 5-15 [facility] Comment on above: Order Comment: Comme nts: NPO at [place] prior to lipid panel Performed By: #### L 501.2300, L500.4100, L100.0100, L500.4050, L501.5200 ####[facility] [address] [place], [address] GFR/1.73 sq M.predicted among non-blacks MDRD (S/P/Bld) [Vol rate/Area] 84 mL/min/{1.73_m2} Normal >60 [facility] Comment on above: Order Comment: Comme nts: NPO at [place] prior to lipid panel Result Comment: mL/m in/1.73m2 CKD-EPI Creatinine Equation (2020) Performed By: #### L 501.2300, L500.4100, L100.0100, L500.4050, L501.5200 ####[facility] [address] [place], [address] Globulin (S) [Mass/Vol] 2.8 g/dL Normal 2.2-4.2 [facility] Comment on above: Order Comment: Comme nts: NPO at [place] prior to lipid panel Performed By: #### L 501.2300, L500.4100, L100.0100, L500.4050, L501.5200 ####[facility] [address] [place], [address] Glucose [Mass/Vol] 107 mg/dL High 70-99 [facility] Comment on above: Order Comment: Comme nts: NPO at [place] prior to lipid panel Performed By: #### L 501.2300, L500.4100, L100.0100, L500.4050, L501.5200 ####[facility] [address] [place], [address] Potassium [Moles/Vol] 3.5 mmol/L Normal 3.3-5.1 [facility] Comment on above: Order Comment: Comme nts: [place]PO at [place] prior to lipid panel Performed By: #### L 501.2300, L500.4100, L100.0100, L500.4050, L501.5200 ####[facility] [address] [place], [address] Sodium [Moles/Vol] 143 mmol/L Normal 133-145 [facility] Comment on above: Order Comment: Comme nts: [place]PO at [place] prior to lipid panel Performed By: #### L 501.2300, L500.4100, L100.0100, L500.4050, L501.5200 ####[facility] [address] [place], [address] T PROT 6.5 g/dL Normal 5.9-8.4 [facility] Comment on above: Order Comment: Comme nts: [place]PO at [place] prior to lipid panel Performed By: #### L 501.2300, L500.4100, L100.0100, L500.4050, L501.5200 ####[facility] [address] [place], [address] Urea nitrogen [Mass/Vol] 14 mg/dL Normal 4-19 [facility] Comment on above: Order Comment: Comme nts: [place]PO at [place] prior to lipid panel Performed By: #### L 501.2300, L500.4100, L100.0100, L500.4050, L501.5200 ####[facility] [address] [place], [address] Discharge Instructionon 10-10 Discharge Instruction [facility] Medical Records Department [address] [place] [address] Instructions for Home/Discharge Instructions 10/23/24 1529 MR#: [id number] Acct: [id number] Name: CODY SANTANA Rep #: [id number] : 1985 38 From: Taye Delvalle MD [...] / Restrictions: Patient follows on neurologist in [place]. She had MRI with and without contrast [...] medroxyprogesterone 150 MG/ML syringe 150 mg IM .[id number] citalopram 40 MG tablet 40 mg PO [...] can be placed): Home, Self Care 10/23/24 5184 Taye Delvalle MD CC: Dr. Farhana Harden DO; No Primary Care Physician Signed Normal [facility] Echocardiogram study reportO rdered By: Jan Ruby on 10-23-2024 Study report [facility] Cardiovascular Services [address] [place] [address] Echo Complete 10/23/24 1036 MR#: [id number] Acct: [id number] Name: CODY SANTANA Rep #:[id number] : 1985 38 From: Jan Gaston Attending Dr: Dr. Taye Delvalle MD Status: ADM MARGY Ordering Dr: Farhana Harden DO Date: Location: U Sex: F C Admitted: 10/22/24 Reason For [...] Date Dictated: 10/23/24 1036 Date Transcribed: 10/23/24 132 Car Tracer: Signed [facility] Work Phone: Eosinophil percentageOrdered By: Farhana Harden on 10-23-2024 Eosinophils/100 WBC (Bld) 3.5 % 0-5 [facility] Erythrocyte distribution wid th ratioOrdered By: Farhana Harden on 10-23-2024 Erythrocyte distribution width (RBC) [Ratio] 14.4 % 11.6-14.6 [facility] Erythrocyte distribution wid th standard deviationOrdered By: Farhana Harden on 10-23-2024 Erythrocyte distribution width (RBC) [Ratio] 49.9 fl High 35.1-43.9 [facility] Glomerular filtration rate ( GFR) estimation/1.73 sq m using serum, plasma, or whole bOrdered By: Farhana Harden on 10-23-2024 GFR/1.73 sq M.predicted among non-blacks MDRD (S/P/Bld) [Vol rate/Area] 84 mL/min/{1.73_m2} >60 [facility] Comment on above: mL/min/1.73m2 CKD-EP I Creatinine Equation (2020) Hematocrit Auto (Bld) [Volum e fraction]Ordered By: Farhana Harden on 10-23-2024 Hematocrit (Bld) [Volume fraction] 34.5 % Low 37-47 [facility] Hemoglobin measurementOrdere d By: Farhana Harden on 10-23-2024 Hemoglobin (Bld) [Mass/Vol] 11.5 g/dL Low 12.0-15.0 [facility] Immature granulocytes/100 WB C Auto (Bld)Ordered By: Farhana Harden on 10-23-2024 Immature granulocytes/100 WBC (Bld) 0.200 % 0.0-0.9 [facility] Comment on above: IG% - Immature Granu locytes (promyelocytes, myelocytes and metamyelocytes) > 1% indicates that a LEFT SHIFT is Present. L499.0043on 10-23-2024 Trop T High Sen < 6 Normal <=14 [facility] Comment on above: Performed By: #### L 499.0043 #### [facility] Laboratory [address] [place], [place], [address] LDL calc ser/plasOrdered By: Farhana Harden on 10-23-2024 Cholesterol in LDL [Mass/Vol] 105 mg/dL [facility] Comment on above: Lprxbgikko=459-350 m g/dL & Higher Wrqv=853 mg/dL or greater Laboratory - Chemistry and C hemistry - challengeOrdered By: Farhana Harden on 10-23-2024 AST [Catalytic activity/Vol] 19 U/L <32 [facility] Lipid Profileon 10-23-2024 CHOL:HDL 4.75 Normal [facility] Comment on above: Order Comment: Comme nts: NPO at [place] prior to lipid panel Performed By: #### L 501.2300, L500.4100, L100.0100, L500.4050, L501.5200 ####[facility] [address] [place], [address] Cholesterol [Mass/Vol] 160 mg/dL Normal <=200 [facility] Comment on above: Order Comment: Comme nts: [place]PO at [place] prior to lipid panel Result Comment: Chol esterol level, Desirable <200 mg/dL Borderline high cholesterol 200-239 mg/dL High cholesterol >=240 mg/dL Recommendations of the NCEP Adult Treatment Panel for the following risk-cutoff thresholds for the [place] population. Performed By: #### L 501.2300, L500.4100, L100.0100, L500.4050, L501.5200 ####[facility] [address] [place], [address] Cholesterol in HDL [Mass/Vol] 34 mg/dL Low [facility] Comment on above: Order Comment: Comme nts: [place] prior to lipid panel Result Comment: Esperanza onal Cholesterol Education Program (NCEP) guidelines: <40 mg/dL: Low HDL-cholesterol (major risk factor for CHD) >= 60 mg/dL: High HDL-cholesterol (negative risk factor for CHD) HDL-cholesterol is affected by a number of factors, e.g. smoking, exercise, hormones, sex and age. Performed By: #### L 501.2300, L500.4100, L100.0100, L500.4050, L501.5200 ####[facility] [address] [place], [address] Cholesterol in LDL [Mass/Vol] 105 mg/dL Normal [facility] Comment on above: Order Comment: Comme nts: [place] prior to lipid panel Result Comment: Bord clwxmx=263-207 mg/dL Higher Cfzb=988 mg/dL or greater Performed By: #### L 501.2300, L500.4100, L100.0100, L500.4050, L501.5200 ####[facility] [address] [place], [address] Cholesterol in VLDL [Mass/Vol] 21 mg/dL Normal 5-40 [facility] Comment on above: Order Comment: Comme nts: [place]PO at [place] prior to lipid panel Performed By: #### L 501.2300, L500.4100, L100.0100, L500.4050, L501.5200 ####[facility] [address] [place], [address] Triglyceride [Mass/Vol] 106 mg/dL Normal [facility] Comment on above: Order Comment: Comme nts: NPO at [place] prior to lipid panel Result Comment: The drugs N-Acetylcysteine and Metamizole may falsely depress this assay. Normal range: <150 mg/dL Borderline High: 150-199 mg/dL High: 200-499 mg/dL Very High: >500 mg/dL Performed By: #### L 501.2300, L500.4100, L100.0100, L500.4050, L501.5200 ####[facility] [address] [place], [address] MCV (mean corpuscular volume ) determinationOrdered By: Farhana Harden on 10-23-2024 MCV (RBC) [Entitic vol] 94.5 fL 81-99 [facility] Magnesiumon 10-23-2024 Magnesium [Mass/Vol] 2.1 mg/dL Normal 1.5-2.2 [facility] Comment on above: Order Comment: Comme nts: [place]PO at [place] prior to lipid panel Performed By: #### L 501.2300, L500.4100, L100.0100, L500.4050, L501.5200 ####[facility] [address] [place], [address] Magnesium measurement (mass/ volume)Ordered By: Farhana Harden on 10-23-2024 Magnesium (Unsp spec) [Mass/Vol] 2.1 mg/dL 1.5-2.2 [facility] Magnetic resonance imaging r eportOrdered By: Lucina Garg on 10-23-2024 Study report [facility] Imaging Services [address] [place], [place] [address] Brain W/WO Contrast MR#: [id number] Acct: [id number] Name: CODY SANTANA Rep #: [id number] : 1985 F 38 From: Austin Garg MD PCP: Care Physician,No Primary Status: ADM MARGY Study:Brain W/WO Contrast Date of Exam: 10/23/24 Exam# [id number] Ordering Dr: Michelle Harden DO PROCEDURE: BRAIN [...] a patient of this age. Reading Location: [place] [address] CC: Dr. Farhana Harden, DO; No Primary Care Physician ~ Car Tracer: Signed [facility] Mean corpuscular hemoglobin (MCH) determinationOrdered By: Farhana Harden on 10-23-2024 MCH (RBC) [Entitic mass] 31.5 pg 27.0-32.0 [facility] Mean corpuscular hemoglobin concentration (MCHC) determinationOrdered By: Farhana Harden on 10-23-2024 MCHC (RBC) [Mass/Vol] 33.3 g/dL 32-36 [facility] Mean platelet volume determi nationOrdered By: Farhana Harden on 10-23-2024 Platelet mean volume (Bld) [Entitic vol] 10.3 fL 6.2-12.0 [facility] Monocyte percentageOrdered B y: Farhana Harden on 10-23-2024 Monocytes/100 WBC (Bld) 7.5 % 0-10 [facility] Neutrophil percentageOrdered By: Farhana Harden on 10-23-2024 Neutrophils/100 WBC (Bld) 38.1 % Low 47-70 [facility] Nucleated red blood cell per centageOrdered By: Farhana Haredn on 05-14-2025 Nucleated RBC/100 WBC (Bld) [Ratio] 0 % 0-5 [facility] Phosphoruson 10-23-2024 Phosphate [Mass/Vol] 3.7 mg/dL Normal 2.7-4.5 [facility] Comment on above: Order Comment: Comme nts: [place] at [place] prior to lipid panel Performed By: #### L 501.2300, L500.4100, L100.0100, L500.4050, L501.5200 ####[facility] [address] [place], [address] Platelet countOrdered By: Jim Harden on 10-23-2024 Platelets (Bld) [#/Vol] 182 10*3/uL 150-450 [facility] Potassium measurement (mass/ volume)Ordered By: Farhana Harden on 10-23-2024 Potassium (Unsp spec) [Mass/Vol] 3.5 mmol/L 3.3-5.1 [facility] RBC Auto (Bld) [#/Vol]Ordere d By: Farhana Harden on 10-23-2024 RBC (Bld) [#/Vol] 3.65 10*6/uL Low 4.2-5.4 [facility] Screening total cholesterol/ high density lipoprotein (HDL) cholesterol ratioOrdered By: Farhana Harden on 10-23-2024 Cholesterol.total/Chol esterol in HDL [Mass ratio] 4.75 {ratio} [facility] Serum creatinine measurement (mass/volume)Ordered By: Farhana Harden on 10-23-2024 Creatinine [Mass/Vol] 0.90 mg/dL 0.70-1.20 [facility] Serum globulin measurementOr dered By: Farhana Harden on 10-23-2024 Globulin (S) [Mass/Vol] 2.8 g/dL 2.2-4.2 [facility] Serum glucose measurement (m ass/volume)Ordered By: Farhana Harden on 10-23-2024 Glucose [Mass/Vol] 107 mg/dL High 70-99 [facility] Serum or plasma alanine rachel otransferase (ALT) measurementOrdered By: Farhana Harden on 10-23-2024 ALT [Catalytic activity/Vol] 14 U/L <35 [facility] Serum or plasma albumin mykel urement (mass/volume)Ordered By: Farhana Harden on 10-23-2024 Albumin [Mass/Vol] 3.8 g/dL 3.5-5.0 [facility] Serum or plasma albumin/glob ulin mass ratioOrdered By: Farhana Harden on 10-23-2024 Albumin/Globulin [Mass ratio] 1.4 {ratio} 0.9-2.4 [facility] Serum or plasma alkaline liborio sphatase measurementOrdered By: Farhana Harden on 10-23-2024 ALP [Catalytic activity/Vol] 47 U/L 35-104 [facility] Serum or plasma calcium mykel urement (mass/volume)Ordered By: Farhana Harden on 10-23-2024 Calcium [Mass/Vol] 8.9 mg/dL 7.6-11.0 [facility] Serum or plasma cholesterol in HDL measurement (mass/volume)Ordered By: Farhana Harden on 10-23-2024 Cholesterol in HDL [Mass/Vol] 34 mg/dL Low >40 [facility] Comment on above: National Cholesterol Education Program (NCEP) guidelines:<40 mg/dL: Low HDL-cholesterol (major risk factor for CHD)>= 60 mg/dL: High HDL-cholesterol (negative risk factor for CHD)HDL-cholesterol is affected by a number of factors, e.g. smoking, exercise, hormones, sex and age. Serum or plasma cholesterol measurement (mass/volume)Ordered By: Farhana Harden on 10-23-2024 Cholesterol [Mass/Vol] 160 mg/dL <201 [facility] Comment on above: Cholesterol level, D esirable <200 mg/dLBorderline high cholesterol 200-239 mg/dLHigh cholesterol >=240 mg/dLRecommendations of the NCEP Adult Treatment Panel for the following risk-cutoff thresholds for the [place] population. Serum or plasma urea nitroge n measurement (mass/volume)Ordered By: Farhana Harden on 10-23-2024 Urea nitrogen [Mass/Vol] 14 mg/dL 4-19 [facility] Sodium levelOrdered By: Michelle Harden on 10-23-2024 Sodium [Moles/Vol] 143 mmol/L 133-145 [facility] Total proteinOrdered By: Jemma Harden on 10-23-2024 Protein [Mass/Vol] 6.5 g/dL 5.9-8.4 [facility] Triglycerides measurementOrd ered By: Farhana Harden on 10-23-2024 Triglyceride [Mass/Vol] 106 mg/dL <199 [facility] Comment on above: The drugs N-Acetylcy steine and Metamizole may falsely depress this assay. Normal range: <150 mg/dLBorderline High: 150-199 mg/dLHigh: 200-499 mg/dLVery High: >500 mg/dL Troponin T.cardiac [Mass/vol ume] in Serum or Plasma by High sensitivity methodOrdered By: Jeremy Gerard on 10-23-2024 Troponin T.cardiac High sensitivity method [Mass/Vol] < 6 ng/L <14 [facility] White blood cell (WBC) count Ordered By: Farhana Harden on 10-23-2024 WBC (Bld) [#/Vol] 6.6 10*3/uL 4.4-11.0 [facility] 12 Lead EKGon 10-22-2024 12 Lead EKG [facility] Cardiovascular Services [address] [place] [address] 12 Lead EKG 10/22/24 2153 MR#: [id number] Acct: [id number] Name: CODY SANTANA Rep #: [id number] : 1985 38 From: Jade Fall MD Attending Dr: Dr. Taye Delvalle MD Status: DIS MARGY Ordering Dr: Jeremy Gerard DO Date: 10/22/24 Location: [facility] Sex: F C Admitted: 10/22/24 Test Reason : DYSRHYTHMIA Blood Pressure : */* mmHG Vent. Rate : 64 BPM Atrial Rate : 64 BPM P-R Int : 152 ms QRS Dur : 82 ms QT Int : 388 ms P-R-T Axes : 62 27 21 degrees QTcB Int : 400 ms Normal sinus rhythm Normal ECG Confirmed by Jade Fall ([id number]), mapping editor ELI LAIRD ([id number]) on 2024 10:02:03 AM Referred By: Confirmed By: Jade Fall 10/24/241001 Date Jade Fall MD CC: Dr. Taye Delvalle MD; Dr. Jeremy Gerard, DO; No Primary Care Physician Signed Normal [facility] Absolute lymphocyte countOrd ered By: Jeremy Gerard on 10-22-2024 Lymphocytes Auto (Unsp spec) [#/Vol] 2.80 10*3/uL 0.83-4.51 [facility] Absolute neutrophil countOrd ered By: Jeremy Gerard on 10-22-2024 Neutrophils (Bld) [#/Vol] 2.9 10*3/uL 2.0-7.7 [facility] Activated partial thrombopla stin time (aPTT) in platelet poor plasma by coagulation aOrdered By: Jeremy Gerard on 10-22-2024 aPTT Coag (PPP) [Time] 30.8 s 24.1-36.2 [facility] Anion gap in Serum or Plasma Ordered By: Jeremy Gerard on 10-22-2024 Anion gap [Moles/Vol] 11 mmol/L - [facility] Automated lymphocyte count a s percentage of total leukocytesOrdered By: Jeremy Gerard on 10-22-2024 Lymphocytes/100 WBC Auto (Unsp spec) 43.7 % High 19-41 [facility] BUN/creatinine ratioOrdered By: Jeremy Gerard on 10-22-2024 Urea nitrogen/Creatinine [Mass ratio] 12.1 mg/mg - [facility] Basic Metabolic Profile (BMP )on 10-22-2024 BUN/CRE 12.1 RATIO Normal 03-31 [facility] Comment on above: Performed By: #### L 300.4310, L500.2500, L501.4021, L300.3900, L100.0100 ####[facility] [address] [place], [place], [address] Calcium [Mass/Vol] 9.3 mg/dL Normal 7.6-11.0 [facility] Comment on above: Performed By: #### L 300.4310, L500.2500, L501.4021, L300.3900, L100.0100 ####[facility] [address] [place], [address] Chloride [Moles/Vol] 110 mmol/L High 98-108 [facility] Comment on above: Performed By: #### L 300.4310, L500.2500, L501.4021, L300.3900, L100.0100 ####[facility] [address] [place], [address] CO2 [Moles/Vol] 18.2 mmol/L Low 21.0-32.0 [facility] Comment on above: Performed By: #### L 300.4310, L500.2500, L501.4021, L300.3900, L100.0100 ####[facility] [address] [place], [address] Creatinine [Mass/Vol] 0.97 mg/dL Normal 0.70-1.20 [facility] Comment on above: Performed By: #### L 300.4310, L500.2500, L501.4021, L300.3900, L100.0100 ####[facility] [address] [place], [address] ECRCL 84.27 ml/min Normal 50-250 [facility] Comment on above: Performed By: #### L 300.4310, L500.2500, L501.4021, L300.3900, L100.0100 ####[facility] [address] [place], [address] GAP 11 Normal 5-15 [facility] Comment on above: Performed By: #### L 300.4310, L500.2500, L501.4021, L300.3900, L100.0100 ####[facility] [address] [place], [address] GFR/1.73 sq M.predicted among non-blacks MDRD (S/P/Bld) [Vol rate/Area] 78 mL/min/{1.73_m2} Normal >60 [facility] Comment on above: Result Comment: mL/m in/1.73m2 CKD-EPI Creatinine Equation (2020) Performed By: #### L 300.4310, L500.2500, L501.4021, L300.3900, L100.0100 ####[facility] [address] [place], [address] Glucose [Mass/Vol] 79 mg/dL Normal 70-99 [facility] Comment on above: Performed By: #### L 300.4310, L500.2500, L501.4021, L300.3900, L100.0100 ####[facility] [address] [place], [address] Potassium [Moles/Vol] 3.4 mmol/L Normal 3.3-5.1 [facility] Comment on above: Performed By: #### L 300.4310, L500.2500, L501.4021, L300.3900, L100.0100 ####[facility] [address] [place], [address] Sodium [Moles/Vol] 139 mmol/L Normal 133-145 [facility] Comment on above: Performed By: #### L 300.4310, L500.2500, L501.4021, L300.3900, L100.0100 ####[facility] [address] [place], [address] Urea nitrogen [Mass/Vol] 12 mg/dL Normal 4-19 [facility] Comment on above: Performed By: #### L 300.4310, L500.2500, L501.4021, L300.3900, L100.0100 ####[facility] [address] [place], [address] Basophil percentageOrdered B y: Jeremy Gerard on 10-22-2024 Basophils/100 WBC (Bld) 0.6 % 0-1 [facility] Bedside Glucoseon 10-22-2024 FINGERSTICK GLU 88 mg/dL Normal 74-106 [facility] Comment on above: Result Comment: MORAIMA PRYOR OF PATIENT CARE PER NURSING PROTOCOL Performed By: #### L 501.080 #### [facility] Laboratory [address] [place], [address] Blood manual differential co mment interpretation (narrative result)Ordered By: Jeremy Gerard on 10-22-2024 Manual differential comment Bro (Bld) [Interp] SCANNED [facility] CBC W/Diff, Automatedon 10-10 ATYPICAL LYMPH 2+ Normal [facility] Comment on above: Performed By: #### L 300.4310, L500.2500, L501.4021, L300.3900, L100.0100 ####[facility] [address] [place], [address] SMEAR COMMENT SCANNED Normal [facility] Comment on above: Performed By: #### L 300.4310, L500.2500, L501.4021, L300.3900, L100.0100 ####[facility] [address] [place], [address] Carbon dioxide, total [Moles /volume] in Central venous bloodOrdered By: Jeremy Gerard on 10-22-2024 CO2 [Moles/Vol] 18.2 mmol/L Low 21.0-32.0 [facility] Chloride assayOrdered By: Sanya Gerard on 10-22-2024 Chloride [Moles/Vol] 110 mmol/L High 98-108 [facility] Echo Completeon 10-22-2024 Echo Complete [facility] Cardiovascular Services [address] [place] [address] Echo Complete 10/23/24 1036 MR#: [id number] Acct: [id number] Name: CODY SANTANA Rep #: [id number] : 1985 38 From: Jan Ruby MD Attending Dr: Dr. Taye Delvalle MD Status: ADM MARGY Ordering Dr: Farhana Harden DO Date: 10/22/24 Location: [facility] Sex: F C Admitted: 10/22/24 Reason For [...] Dictated: 10/23/24 1036 Date Transcribed: 10/23/24 1320 Car Tracer: Signed Normal [facility] Emergency Department Summary on 10-22-2024 Emergency Department Summary [facility] Medical Records Department [address] [place] [address] Emergency Department Summary 10/22/24 MR#: [id number] Acct: [id number] Name: CODY SANTANA Rep #: [id number] : 1985 38 From: Jeremy Larose PCP: Care Physician,No Primary Status:ADM MARGY Location: [place] [address] HPI History of Present Illness Chief Complaint: [...] midnight after work. Prior similar symptoms: Yes [facility] Medical History Lumbar pain with radiation down right leg Dental caries Brain TIA Dysarthria Chronic migraine Anxiety and depression History of venous thromboembolism Obesity Tobacco use History of nephrolithiasis Chronic neck and back pain Factor 5 Leiden mutation, heterozygous Home Medications ???Medication ???Instructions ???Recorded ???Last Taken ???Type medroxyprogesterone 150 mg/mL 150 mg IM .[id number] control 01/30/15 08/24/24 11:00 History intramuscular syringe 150 mg citalopram 40 mg tablet 40 mg PO DAILY mental health 04/0410/22/24 10:00 History 40 mg haloperidol 5 mg tablet 2.5 mg PO TID PRN Anxiety 04/04/19 Unknown History apixaban 5 mg tablet 5 mg PO BID blood thinner 06/03/20 10/22/24 12:30 History 5 mg acetaminophen 325 mg capsule 325 mg PO ONCE PRN Pain 1- Or Unknown History (Tylenol) Fever lidocaine 5 [...] Reaction Status Date / Time acetaminophen (From [place]) Allergy Itching Verified 10/22/24 20:55 hydrocodone (From [place]) Allergy Itching Verified 10/22/24 20:55 oxycodone (From [...] frequency Muscul (more content not included)... Normal [facility] Eosinophil percentageOrdered By: Jeremy Gerard on 10-22-2024 Eosinophils/100 WBC (Bld) 2.2 % 0-5 [facility] Erythrocyte distribution wid th ratioOrdered By: Jeremy Gerard on 10-22-2024 Erythrocyte distribution width (RBC) [Ratio] 14.1 % 11.6-14.6 [facility] Erythrocyte distribution wid th standard deviationOrdered By: Jeremy Gerard on 10-22-2024 Erythrocyte distribution width (RBC) [Ratio] 48.1 fl High 35.1-43.9 [facility] Glomerular filtration rate ( GFR) estimation/1.73 sq m using serum, plasma, or whole bOrdered By: Jeremy Gerard on 10-22-2024 GFR/1.73 sq M.predicted among non-blacks MDRD (S/P/Bld) [Vol rate/Area] 78 mL/min/{1.73_m2} >60 [facility] Comment on above: mL/min/1.73m2 CKD-EP I Creatinine Equation (2020) [facility] de[facility]dered By: Jeremy Gerard on 10-22-2024 Glucose [Mass/Vol] 88 mg/dL 74-106 [facility] Comment on above: MANAGEMENT OF PATIEN T CARE PER NURSING PROTOCOL H AND P Exam - Hospitaliston 10-22-2024 H&P Exam - Hospitalist [facility] Medical Records Department [address] [place] [address] H P Exam - Hospitalist 10/22/242149 MR#: [id number] Acct: [id number] Name: CODY SANTANA Rep #: [id number] : 1985 38 From: Farhana Harden DO PCP: Care Physician,No Primary Status:ADM MARGY Location: [address] HPI - General General Date of Admission: 10/22/24 Date of Service: 10/23/24 Chief Complaint: Left leg weakness/expressive aphasia/slurred speech/right arm paresthesias HPI Narrative CODY SANTANA, is a 38 F who presented to the emergency department [facility] on 10/23/2023 with a chief [...] stay to be less than 48 hours. [facility] Medical History Lumbar pain with radiation down right leg Dental caries Brain TIA Dysarthria Chronic migraine Anxiety and depression History of venous thromboembolism Obesity Tobacco use History of nephrolithiasis Chronic neck and back pain Factor 5 Leiden mutation, heterozygous Home Medications ???Medication ???Instructions ???Recorded ???Last Taken ???Type medroxyprogesterone 150 mg/mL 150 mg IM .[id number] control 01/30/15 08/24/24 11:00 History intramuscular syringe 150 mg citalopram 40 mg tablet 40 mg PO DAILY mental health 04/0410/22/24 10:00 History 40 mg haloperidol 5 mg tablet 2.5 mg PO TID PRN Anxiety 04/04/19 Unknown History apixaban 5 mg tablet 5 mg PO BID blood thinner 06/03/20 10/22/24 12:30 History 5 mg acetaminophen 325 mg capsule 325 mg PO ONCE PRN Pain 1- Or Unknown History (Tylenol) Fever lidocaine 5 [...] Reaction Status Date / Time acetaminophen (From [employer]) Allergy Itching Verified 10/22/24 20:55 hydrocodone (From [place]) Allergy Itching Verified 10/22/24 20:55 (more content not included)... Normal [facility] Hematocrit Auto (Bld) [Volum e fraction]Ordered By: Jeremy Gerard on 10-22-2024 Hematocrit (Bld) [Volume fraction] 34.9 % Low 37-47 [facility] Hemoglobin A1con 10-22-2024 HbA1c (Bld) [Mass fraction] 5.1 % Normal <=5.6 [facility] Comment on above: Result Comment: Norm al < 5.7 % Prediabetic 5.7 - 6.4 % Diabetic >or= 6.5 % Please note range changes. Performed By: #### L 501.6023 #### [facility] Laboratory [facility] [place], [address] Hemoglobin A1c percentageOrd ered By: Farhana Harden on 10-22-2024 HbA1c (Bld) [Mass fraction] 5.1 % <5.7 [facility] Comment on above: Normal < 5.7 % Predi abetic 5.7 - 6.4 % Diabetic >or= 6.5 % Please note range changes. Hemoglobin measurementOrdere d By: Jeremy Gerard on 10-22-2024 Hemoglobin (Bld) [Mass/Vol] 11.9 g/dL Low 12.0-15.0 [facility] Immature granulocytes/100 WB C Auto (Bld)Ordered By: Jeremy Gerard on 10-22-2024 Immature granulocytes/100 WBC (Bld) 0.200 % 0.0-0.9 [facility] Comment on above: IG% - Immature Granu locytes (promyelocytes, myelocytes and metamyelocytes) > 1% indicates that a LEFT SHIFT is Present. International normalized rat io (INR) calculationOrdered By: Jeremy Gerard on 10-22-2024 INR Coag (Bld) [Relative time] 1.1 {INR} [facility] L499.0042on 10-22-2024 Trop T High Sen < 6 Normal <=14 [facility] Comment on above: Performed By: #### L 499.0042 ####[facility] [address] [place], [address] L501.4021on 10-22-2024 Trop T High Sen 7 ng/L Normal <=14 [facility] Comment on above: Performed By: #### L 300.4310, L500.2500, L501.4021, L300.3900, L100.0100 ####[facility] [address] [place], [address] MCV (mean corpuscular volume ) determinationOrdered By: Jeremy Gerard on 10-22-2024 MCV (RBC) [Entitic vol] 92.6 fL 81-99 [facility] Mean corpuscular hemoglobin (MCH) determinationOrdered By: Jeremy Gerard on 10-22-2024 MCH (RBC) [Entitic mass] 31.6 pg 27.0-32.0 [facility] Mean corpuscular hemoglobin concentration (MCHC) determinationOrdered By: Jeremy Gerard on 10-22-2024 MCHC (RBC) [Mass/Vol] 34.1 g/dL 32-36 [facility] Mean platelet volume determi nationOrdered By: Jeremy Gerard on 10-22-2024 Platelet mean volume (Bld) [Entitic vol] 10.5 fL 6.2-12.0 [facility] Monocyte percentageOrdered B y: Jeremy Gerard on 10-22-2024 Monocytes/100 WBC (Bld) 8.6 % 0-10 [facility] Neutrophil percentageOrdered By: Jeremy Gerard on 10-22-2024 Neutrophils/100 WBC (Bld) 44.7 % Low 47-70 [facility] Nucleated red blood cell per centageOrdered By: Jeremy Gerard on 10-22-2024 Nucleated RBC/100 WBC (Bld) [Ratio] 0 % 0-5 [facility] Partial Thromboplast Timeon 10-22-2024 aPTT Coag (Bld) [Time] 30.8 s Normal 24.1-36.2 [facility] Comment on above: Performed By: #### L 300.4310, L500.2500, L501.4021, L300.3900, L100.0100 ####[facility] [address] [place], [address] Platelet countOrdered By: Sanya Gerard on 10-22-2024 Platelets (Bld) [#/Vol] 188 10*3/uL 150-450 [facility] Potassium measurement (mass/ volume)Ordered By: Jeremy Gerard on 10-22-2024 Potassium (Unsp spec) [Mass/Vol] 3.4 mmol/L 3.3-5.1 [facility] Prothrombin Time w/INRon INR Coag (PPP) [Relative time] 1.1 {INR} Normal [facility] Comment on above: Performed By: #### L 300.4310, L500.2500, L501.4021, L300.3900, L100.0100 ####[facility] [address] [place], [address] PT Coag (PPP) [Time] 14.3 s Normal 11.7-14.9 [facility] Comment on above: Performed By: #### L 300.4310, L500.2500, L501.4021, L300.3900, L100.0100 ####[facility] [address] [place], [address] Prothrombin timeOrdered By: Jeremy Gerard on 10-22-2024 PT Coag (PPP) [Time] 14.3 s 11.7-14.9 [facility] RBC Auto (Bld) [#/Vol]Ordere d By: Jeremy Gerard on 10-22-2024 RBC (Bld) [#/Vol] 3.77 10*6/uL Low 4.2-5.4 [facility] STROKE Brain/Head without Co nton 10-22-2024 STROKE Brain/Head without Cont [facility] Imaging Services [address] [place] [address] STROKE Brain/Head without Cont MR#: [id number] Acct: [id number] Name: CODY SANTANA Rep #: [id number] : 1985 F 38 From: Gerardo brewster MD PCP: Care Physician,No Primary Status: [facility] ER Study: STROKE Brain/Head without Cont Date of Exam: 0 10/22/24 Exam# [id number] Ordering Dr: Jeremy Gerard DO PROCEDURE: STROKE [...] IMPRESSION: No acute intracranial abnormality. Reading Location: [facility] CC: Dr. Jeremy Gerard DO; No Primary Care Physician Car Tracer: Signed Normal [facility] STROKE CTA Head AND Neck W/C onon 10-22-2024 STROKE CTA Head AND Neck W/Con [facility] Imaging Services [address] [place] [address] STROKE CTA Head AND Neck W/Con MR#: [id number] Acct: [id number] Name: CODY SANTANA Rep #: [id number] : 1985 F 38 From: Gerardo brewster MD PCP: Care Physician,No Primary Status: REG ER Study: STROKE CTA Head AND Neck W/Con Date of Exam: 0 10/22/24 Exam# [id number] Ordering Dr: Jeremy Gerard DO PROCEDURE: STROKE [...] RIGHT Vertebral: Unremarkable. LEFT Vertebral: Unremarkable. Anatomy: [place] anatomy is normal. Aneurysm or [...] circulation, without hemodynamically significant stenosis. Reading [facility] CC: Dr. Jeremy Gerard DO; No Primary Care Physician Car Tracer: Signed Normal [facility] Serum creatinine measurement (mass/volume)Ordered By: Jeremy Gerard on 10-22-2024 Creatinine [Mass/Vol] 0.97 mg/dL 0.70-1.20 [facility] Serum glucose measurement (m ass/volume)Ordered By: Jeremy Gerard on 10-22-2024 Glucose [Mass/Vol] 79 mg/dL 70-99 [facility] Serum or plasma calcium mykel urement (mass/volume)Ordered By: Jeremy Gerard on 10-22-2024 Calcium [Mass/Vol] 9.3 mg/dL 7.6-11.0 [facility] Serum or plasma urea nitroge n measurement (mass/volume)Ordered By: Jeremy Gerard on 10-22-2024 Urea nitrogen [Mass/Vol] 12 mg/dL 4-19 [facility] Sodium levelOrdered By: Jeremy Gerard on 10-22-2024 Sodium [Moles/Vol] 139 mmol/L 133-145 [facility] Troponin T.cardiac [Mass/vol ume] in Serum or Plasma by High sensitivity methodOrdered By: Jeremy Gerard on 10-22-2024 Troponin T.cardiac High sensitivity method [Mass/Vol] < 6 ng/L <14 [facility] Troponin T.cardiac High sensitivity method [Mass/Vol] 7 ng/L <14 [facility] White blood cell (WBC) count Ordered By: Jeremy Gerard on 10-22-2024 WBC (Bld) [#/Vol] 6.4 10*3/uL 4.4-11.0 [facility] CNPNon 10-15-2024 [facility] Telephone (NHATWN) CODY SANTANA ([id number]) 1985 F Date Time Provider Department 10/15/24 KIRBY MONGE SDJENNIFER During your visit today, we recorded the following information about you: Unruly Gonzalez RN 10/16/2024 8:24 AM Addendum Cody Santana (Dimas: [id number]) PA Need Help? Call us at Outcome Approved on October 15 by [place] [employer] 2016 Your PA request for [id number] was approved for 180 days. The PA# assigned is [id number]. NURTEC ODT 75 MG TABLET Effective Date: 10/27/2024 Authorization Expiration Date: 04/24/2025 Drug Nurtec 75MG dispersible tablets Form [place] Medicaid [employer] PA Form (2016 [place]) Allergies As of Date: 10/15/2024 Noted Allergy [...] Encounter Status:Closed by UNRULY GONZALEZ on 10/15/[address] [facility] Re-Evaluation - PT (1)on Re-Evaluation - PT (1) [facility] Physical Therapy [facility] [address] [place] [address] [address] [place] [address] / REEVALUATION / MEDICARE RECERTIFICATION PHYSICAL THERAPY MR#: [id number] Acct: [id number] Name: CODY SANTANA Rep #: [id number] : 1985 38 From: Lucy Irene PT, Cert. MDT Referring Dr.: ALONZO Infante Status:REG RCR Insurance: [facility] 3HAB [facility] Re-Evaluation Intro: ALONZO Infante, It has been [...] IT FEELS A LOT BETTER NOW - "IT DOESN'T BOTHER ME NOW BUT THEY WANTED ME TO FOLLOW ME UP WITH THERAPY". PATIENT REPORTS SHE PLANS TO FOLLOW UP [...] A RESULT. Core strength: GOOD TUG TEST: 8.01" 30" STS TEST: 13 WITHOUT UE ASSIST. Plan [...] mechanics, Postural training, Flexibilty training, Neuromotor development, "In an aquatic setting" and Dynamic Lumbar Stabilization For the Purpose [...] do not hesitate to contact me at [phone] by phone or if you have questions or concerns regarding this new plan of care! Sincerely, Lucy Irene, PT, Cert MDT 10/14/241952 CC: ALONZO Infante; No Primary Care Physician SABINE Signed For Medicare only, by signing this I certify the plan of care. Physicians Signature Date Normal [facility] Emergency Department Summary on 09-22-2024 Emergency Department Summary [facility] Medical Records Department [address] [place] [address] Emergency Department Summary 09/22/24 MR#: [id number] Acct: [id number] Name: CODY SANTANA Rep #: [id number] : 1985 38 From: Shilo Dunne DO [...] intact Psych: Cooperative, appropriate mood and affect PFSH PFS Medical History Lumbar pain with radiation down right leg Dental caries Brain TIA Dysarthria Chronic migraine Anxiety and depression History of venous thromboembolism Obesity Tobacco use History of nephrolithiasis Chronic neck and back pain Factor 5 Leiden mutation, heterozygous Home Medications ???Medication ???Instructions ???Recorded ???Last Taken ???Type medroxyprogesterone 150 mg/mL 150 mg IM .[id number] control 01/30/15 Unknown History intramuscular syringe topiramate [...] Reaction Status Date / Time acetaminophen (From [place]) Allergy Itching Verified 09/07/24 11:33 hydrocodone (From [place]) Allergy Itching Verified 09/07/24 11:33 oxycodone (From [...] other details (more content not included)... Normal [facility] Wrist min 3 Viewson 09-23-19 25 Wrist min 3 Views [facility] Imaging Services [address] [place], [place] [address] Wrist min 3 Views MR#: [id number] Acct: [id number] Name: CODY SANTANA Rep #: [id number] : 1985 F 38 From: Jacob Bee PCP: Care Physician,No Primary Status: REG ER Study: Wrist min 3 Views Date of Exam: 09/22/24 Exam# [id number] Ordering Dr: Shilo Dunne DO EXAM: Right wrist radiographs CLINICAL HISTORY: Pain COMPARISON: None TECHNIQUE: Three views of the right wrist FINDINGS: See impression RAD/Wrist min 3 Views IMPRESSION: Negative for acute displaced fracture or dislocation. No significant arthropathy. Reading Location: [facility] CC: Dr. Shilo Dunne DO; No Primary Care Physician Car Tracer: Signed Normal [facility] Inital Evaluation (1) - PTon 09-11-2024 Inital Evaluation (1) - PT [facility] Physical Therapy [address] [place] [address] / REHABILITATION SERVICES INITIAL EVALUATION MR#: [id number] Acct: [id number] Name: CODY SANTANA Rep #: [id number] : 1985 38 From: Lucy Irene PT, Cert. MDT Referring Dr.: ALONZO Infante Status: REG RCR Insurance[facility] Patient's Visit Information Visit Information Visit Information: [...] AND STRENGTHENING. HEP INSTRUCTION. 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 WIRE BENDER HAND. CURRENTLY NOT OFF WORK BUT IS ON [...] Pain Scale: WORST 7/10, LEAST 3/10 Currently: 08/19 Is it getting better, worse or staying [...] ABOUT 10 MONTHS AGO. HAS ALSO HAD "4 TO 5 YEARS WORTH" OF PHYSICAL THERAPY FOR LOW BACK WITH [...] loss: flex (more content not included)... Normal [facility] Urgent Care Visit Reporton 0 09-07-2024 Urgent Care Visit Report [facility] [address], [address] [place] [address] OFFICE VISIT Date of Service: 09/07/24 MR#: [id number] Acct: [id number] Name: CODY SANTANA Rep #: [id number] : 1985 Provider: ISABEL Katz Age/Sex: 38/F Location[facility] Status: Signed Intake Vital Signs 08/21/24 09:16 [...] Pain scale (1-10): 5 Allergies acetaminophen (From [place]) Allergy (Verified 09/07/24 11:33) Itching hydrocodone (From [place]) Allergy (Verified 09/07/24 11:33) Itching oxycodone (From Percocet) Adverse Reaction (Intermediate, Verified 09/07/24 11:33) Itching cephalexin monohydrate (From Kef[place]) Adverse Reaction (Verified 09/07/24 11:33) WEAKNESS, MUSCLE ACHES Medications ???Medication ???Instructions ???Recorded ???Confirmed ???Type medroxyprogesterone 150 mg/mL 150 mg IM .[id number] control 01/30/15 09/07/24 History intramuscular syringe topiramate [...] tablet 40 mg PO Q12H reflux 03/15/23 03/03/06 History lamotrigine 200 mg tablet 200 mg [...] pain -yesterday was shopping and went to pickle sorter case of water and put it on [...] Resp Ef (more content not included)... Normal [facility] CNOVon 08-28-2024 CNOV Office Visit (CVAKPO ) CODY SANTANA ([id number]) 1985 F Date Time Provider Department 08/28/24 11:30 AM CHARLINE WOOTEN During your visit today, we recorded the following information about you: Weight Height 89.4 kg 1.6 m Charline Wooten APRN.TITLE ABSTRACTOR 08/28/2024 12:12 PM Signed [facility] Established [...] right facial weakness and was admitted to [facility]. As per the patient, stroke was [...] was laying down to go to bed. [place] like prior episodes. No issues getting up [...] lovenox then consideration of going to xarelto. [facility] vascular -unsure of next appt with [...] disintegrating tab (more content not included)... Normal [facility] Urgent Care Visit Reporton 0 08-23-2024 Urgent Care Visit Report [facility] [address], [address] [place] [id number] OFFICE VISIT Date of Service: 08/23/24 MR#: [id number] Acct: [id number] Name: CODY SANTANA Rep #: [id number] : 1985 Provider: ALONZO Infante Age/Sex: 38/F Location: [facility] Status: Signed Intake Vital Signs 08/17/24 15:56 08/21/24 09:16 08/23/24 08:59 Height 5 ft 3 in 5 ft 3 in BP 120/82 H Position Sitting Pulse 73 Temp 97.8 F Temp Source Oral Pulse Oximetry (%) 97 Oxygen Delivery Method room air Intake Visit Reasons: ED FU LOWER BACK INJURY/[facility] SERVICES Accompanied by: Other Family Allergies acetaminophen (From [place]) Allergy (Verified 08/23/24 09:06) Itching hydrocodone (From [place]) Allergy (Verified 08/23/24 09:06) Itching oxycodone (From Percocet) Adverse Reaction (Intermediate, Verified 08/23/24 09:06) Itching cephalexin monohydrate (From Keflex) Adverse Reaction (Verified 08/23/24 09:06) WEAKNESS, MUSCLE ACHES Medications ???Medication ???Instructions ???Recorded ???Confirmed ???Type medroxyprogesterone 150 mg/mL 150 mg IM .[id number] control 01/30/15 08/23/24 History intramuscular syringe topiramate [...] spasm Nurse's Note: Patient here for a [facility] ER f/u. Patient states its her lower back and left hip. [facility] Medical History Lumbar pain with radiation down [...] that she bent over to try to pickle sorter the front of the piece of equipment and felt immediate pain in her back. The next day she went to the ER to be evaluated and was given [place] as well as lidocaine patches. Patient denies [...] ROS Const (more content not included)... 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 There was a lip in the floor [...] that helps. She did not try any izki-mhi-jqcyfig medications. She cannot take NSAIDs because she is on Eliquis for history of factor V Leiden and blood clots. She has no history of back surgery. She has no saddle anesthesia or bladder bowel incontinence. [facility] Medical History Lumbar pain with radiation down right leg Dental caries Brain TIA Dysarthria Chronic migraine Anxiety and depression History of venous thromboembolism Obesity Tobacco use History of nephrolithiasis Chronic neck and back pain Factor 5 Leiden mutation, heterozygous Home Medications ???Medication ???Instructions ???Recorded ???Last Taken ???Type medroxyprogesterone 150 mg/mL 150 mg IM .[id number] control 01/30/15 Unknown History intramuscular syringe topiramate [...] Reaction Status Date / Time acetaminophen (From [place]) Allergy Itching Verified 08/17/24 15:56 hydrocodone (From [place]) Allergy Itching Verified 08/17/24 15:56 oxycodone (From [...] no gallop. (more content not included)... Normal [facility] 07-29-2024 [facility] Office Visit (UCWSTR ) CARLOS MANUEL HENRYCODY L ([id number]) 1985 F Date Time Provider Department 07/29/24 7:15 PM [facility] During your visit today, we recorded the following information about you: Temperature Pulse Respiration Blood pressure 98.5 degrees 90/minute 16/minute 110/72 Weight 92 kg Jeovany Joseph PA-C 07/29/2024 8:03 PM Signed This note was created using NoteWriter. Subjective Cody L Smail is a 38 year old female. Patient [...] to right fingers and states that her oil scout is intact. Patient reports no pain or [...] and the patient demonstrates strong and equal oil scout. Patient demonstrates reduced range of motion in [...] 09/14/2023 14 - Other: See Comments Comments: [place], weak PERCOCET (OXYCODONE-ACETAMINOPHE N)09/14/2023 14 - Other: See Comments Comments: Nose itch Date Reviewed: 07/29/2024 Reviewed by: Zelda Cunha LPN - Fully Assessed Reason for Visit: right hand and wrist pain [Other] Cmt: Injured it yesterday shoveling snow Primary Visit Diagnosis:Right wrist pain [M25.531] Order(s):XR WRIST GENERAL 3V PA/LAT/OBL RIGHT [[id number]] Order #: [id number]. #:[id number] Prescriptions as of 07/29/2024 - amoxicillin (AMOXIL) 500 mg capsule Take 500 mg by mouth three times a day. - enoxaparin (LOVENOX) 100 mg/mL syrg Inject 0.9 mL subcutaneously every 12 hours. - rimegepant (NURTEC ODT) 75 mg disintegrating tablet Take 1 tablet by mouth (more content not included)... Normal [facility] XR WRIST 3V PA/LAT/OBL RTon 07-29-2024 XR [...] chronic. No findings suspicious for acute fracture. Car Tracer: [facility] Transcribe Date/Time: Jul 29 2024 7:54P Dictated by : JEOVANY ORTEGA MD This examination was interpreted and the report reviewed and electronically signed by: JEOVANY ORTEGA MD on Jul 29 2024 7:56PM EST [id number] Normal [facility] XR Wrist - right PA and Late ral and Obliqueon 07-29-2024 IMPRESSION: Well-defined bony density posterior to the lunate appears chronic. No findings suspicious for acute fracture. Car Tracer: [facility] Transcribe Date/Time: Jul 29 2024 7:54P [...] spaces maintained. DIVISION OF RADIOLOGY Provider, Gini Arredodno - 07/29/2024 * * *Final Report* * [...] chronic. No findings suspicious for acute fracture. [facility] Transcribe Date/Time: Jul 29 2024 7:54P Dictated by : JEOVANY ORTEGA MD This examination was interpreted and the report reviewed and electronically signed by: JEOVANY ORTEGA MD on Jul 29 2024 7:56PM [facility] Radiology Study observation (narrative) [facility] XR Wrist - right PA and Late ral and ObliqueOrdered By: Ccf Provider on 07-29-2024 [facility] CNOVon 07-18-2024 CNOV Office Visit (UCWSTR ) CODY SANTANA ([id number]) 1985 F Date Time Provider Department 07/18/24 2:00 PM NELI REDD MICHAEL During your visit today, we recorded the following information about you: Temperature Pulse Respiration Blood pressure 99 degrees 92/minute 22/minute 106/70 Weight 92 kg Neli Redd, MARLEEN.TITLE ABSTRACTOR 07/18/2024 2:34 PM Signed This note was created using Rethink Booksriter. Subjective Cody Santana is a 38 year old female. 38 year old female with PMH depression, anxiety, acid reflux and bipolar presents for illness Acute onset last night +cough +sore throat Dry cough Chest wall pain with coughing I was told I probably have COPD" Has been using inhaler Denies dyspnea Denies hemoptysis Denies CP Denies abdominal pain +tobacco usage +ill contacts, +influenza at home Daughter here for similar The history is provided by the patient. No foreign language stenographer was used. Cough This is a new [...] 100% BMI (more content not included)... [facility] Telephone (UCWSTR) CODY SANTANA ([id number]) 1985 F Date Time Provider Department 07/18/24 NELI REDD [facility] During your visit today, we recorded the following information about you: Neli Redd APRN.TITLE ABSTRACTOR 07/18/2024 3:04 PM Signed CXR negative Strep [...] Status:Closed by INDERJIT ONTIVEROS on 07/18/24 Normal [facility] STREP A MOLECULAR (POC)on Procedural Control Valid [facility] Strep A (POCT) Negative Negative [facility] XR CHEST 2V FRONTAL/LATon XR [...] is seen. IMPRESSION: No acute radiographic abnormality. Car Tracer: [facility] Transcribe Date/Time: Jul 18 2024 3:00P Dictated by : LUCERO MITCHELL MD This examination was interpreted and the report reviewed and electronically signed by: LUCERO MITCHELL MD on Jul 18 2024 3:01PM EST [id number] Normal [facility] XR Chest PA and Lateralon IMPRESSION: No acute radiographic abnormality. Car Tracer: [facility] Transcribe Date/Time: Jul 18 2024 3:00P Dictated [...] hardware is seen. DIVISION OF RADIOLOGY Provider, [facility] - 07/18/2024 * * *Final Report* * [...] seen. IMPRESSION IMPRESSION: No acute radiographic abnormality. Car Tracer: LUDIVINA Transcribe Date/Time: Jul 18 2024 3:00P Dictated by : LUCERO MITCHELL MD This examination was interpreted and the report reviewed and electronically signed by: LUCERO MITCHELL MD on Jul 18 2024 3:01PM EST [facility] Radiology Study observation (narrative) [facility] XR Chest PA and LateralOrder ed By: Ccf Provider on 07-18-2024 [facility] CNPNon 07-14-2024 [facility]NPN Telephone (HEMAWS) CODY SANTANA ([id number]) 1985 F Date Time Provider Department 07/14/24 [...] Voiced understanding. Information faxed as directed. SUSY Sen, Victor Manuel 07/15/2024 9:07 AM Signed Schedules [...] Status:Closed by VICTOR MANUEL HORN on 07/15/24 [facility] Tele[facility] (UCWSTR) CODY SANTANA ([id number]) 1985 F Date Time Provider Department 06/27/24 LES MCKEON [facility] During your visit today, we recorded the following information about you: Les Mckeon APRN.KOLE 06/27/2024 7:25 AM Signed Please inform patient that she did test positive for COVID-19. Follow return to work guidelines as provided during yesterday's visit. Continue supportive therapies. Follow-up with ED or PCP for any new or worsening symptoms. Les Mckeon APRN.Inderjit Sanz MA 06/27/2024 8:43 AM Signed Left instructing patient to return call to receive results. SARTHAK Dockery Brittany L, MA 06/27/2024 8:58 AM Signed Patient active MyChart. Patient notified via Microstim message. Cody Riley MA Allergies As of Date: 06/27/2024 Noted Allergy Reaction KEFLEX (CEPHALEXIN) 09/14/2023 14 - Other: See Comments Comments: Sierra, deb PERCOCET (OXYCODONE-ACETAMINOPHE N)09/14/2023 14 - Other: See [...] by CODY RILEY on 06/27/[address] [facility] CNOVon 06-26-2024 CNOV Office Visit (WSTR ) CODY SANTANA ([id number]) 1985 F Date Time Provider Department 06/26/24 4:15 PM JEOVANY JOSEPH [facility] During your visit today, we recorded the following information about you: Temperature Pulse Respiration Blood pressure 99.1 degrees 88/minute 21/minute 100/70 Weight 94.7 kg Jeovany Joseph PA-C 06/26/2024 4:33 PM Signed This note was created using SocialCrunch. Subjective Cody Santana is a 38 year [...] INFLUENZA A/B AND RSV PCR, ROUTINE Jeovany THERON Joseph Allergies As of Date: 06/26/2024 Noted Allergy [...] AND RSV PCR, ROUTINE [SQCVFLRS] Order #: [id number]. #:[id number] Prescriptions as of 06/26/2024 - amoxicillin (AMOXIL) [...] MOUTH ONCE (more content not included)... Normal [facility] COVID AND INFLUENZA A/B AND RSV PCR, ROUTINEon 06-26-2024 SARS-CoV-2 (COVID-19) RNA LA+probe Ql (Unsp spec) SARS-COV-2 (AGENT OF COVID-19) RNA: Detected INFLUENZA A RNA: Not detected INFLUENZA B RNA: Not detected RESPIRATORY SYNCYTIAL VIRUS (RSV) RNA: Not detected Abnormal [facility] Comment on above: Performed By: #### C VFLRS ####[facility] LABCL[facility] [id number] [place] [address] [place] BETA 2 GLYCOPROTEIN, IGGon 0 06-21-2024 Beta 2 glycoprotein 1 IgG IA Qn <9 Normal <20 [facility] Comment on above: Order Comment: Speci men Type: BLOOD SPECIMENOrdering Facility: [facility] Address: [address] [place] [address] Result Comment: <20 SGU Negative 20-80 SGU Low Positive >80 SGU High Positive These results were obtained with the Inova QUANTA Lite B2 GPI IgG ANIKA. B2 GPI IgG values obtained with different manufacturers' assay methods may not be used interchangeably. The magnitude of the reported IgG levels cannot be correlated to an endpoint titer. Performed By: #### C ARDIM, BETA2G, BETA2M, CARDIG, 5076-5 ####[facility]CL[facility] [id number] [place] [address] [place] BETA 2 GLYCOPROTEIN, IGMon 0 06-21-2024 Beta 2 glycoprotein 1 IgM IA Qn <9 Normal <20 [facility] Comment on above: Order Comment: Speci men Type: BLOOD SPECIMENOrdering Facility: [facility] Address: [address] [place] [address] Result Comment: <20 SMU Negative 20-80 SMU Low Positive >80 SMU High positive These results were obtained with the Inova QUANTA Lite B2 GPI IgM ANIKA. B2 GPI IgM values obtained with different manufacturers' assay methods may not be used interchangeably. The magnitude of the reported IgM levels cannot be correlated to an endpoint titer. Performed By: #### C ASHLEYDIM, BETA2G, BETA2M, CARDIG, 5076-5 ####[facility] LABIA [id number] [address] [place] CARDIOLIPIN IGG ABSon 2024 Cardiolipin IgG IA Qn (S) <9.0 Normal <15.0 [facility] Comment on above: Order Comment: Speci men Type: BLOOD SPECIMENOrdering Facility: [facility] Address: [address] [place] [address] Result Comment: <15 GPL Negative 15-20 GPL Indeterminate >20 GPL Positive The following results were obtained with the Inova QUANTA Lite DESTINY IgG III ANIKA. Cardiolipin IgG values obtained with the different manufacturers' assay methods may not be used interchangeably. The magnitude of the reported IgG levels cannot be correlated to an endpoint titer. Performed By: #### C ARDIM, BETA2G, BETA2M, CARDIG, 5076-5 ####[facility]CL[facility] [id number] [place] [address] [place] CARDIOLIPIN IGM ABSon 2024 Cardiolipin IgM IA Qn (S) 10.8 MPL Normal <12.5 [facility] Comment on above: Order Comment: Speci [facility] Type: BLOOD SPECIMENOrdering Facility: [facility] Address: [address] [place] [address] Result Comment: <12. 5 MPL Negative 12.5-20 MPL Indeterminate >20 MPL Positive The following results were obtained with the Inova QUANTA Lite DESTINY IgM III ANIKA. Cardiolipin IgM values obtained with the different manufacturers' assay methods may not be used interchangeably. The magnitude of the reported IgM levels cannot be correlated to an endpoint titer. ??? Performed By: #### C LILLIAN BETA2G, BETA2MMONY, 5076-5 ####[facility] LABIA [id number] [address] [place] Cardiolipin IgA Ser IA-aCnco n 06-21-2024 Cardiolipin IgA IA Qn (S) <9.0 Normal <12.0 [facility] Comment on above: Order Comment: Speci [facility] Type: BLOOD SPECIMENOrdering Facility: [facility] Address: [address] [place] [address] Result Comment: <12 APL Negative 12-20 APL Indeterminate >20 APL Positive The following results were obtained with the Inova QUANTA Lite DESTINY IgA III ANIKA. Cardiolipin IgA values obtained with the different manufacturers' assay methods may not be used interchangeably. The magnitude of the reported IgA levels cannot be correlated to an endpoint titer. Performed By: #### C LILLIAN, BETA2G, BETA2MMONY, 5076-5 ####[facility] [id number] [place] [address] [place] LUPUS PANELon 06-21-2024 ANTI XA HZ + DOAC 0.23 High <0.10 [facility] Comment on above: Order Comment: Speci men Type: BLOOD SPECIMENOrdering Facility: [facility] Address: [address] [place] [address] Performed By: #### L [id number], LUPPL ####[facility]CL[facility] [id number] [place] [address] [place] aPTT Coag (Bld) [Time] 34.3 s Normal 24.0-35.1 [facility] Comment on above: Order Comment: Speci men Type: BLOOD SPECIMENOrdering Facility: [facility] Address: [address] [place] [address] Performed By: #### L [id number], LUPPL ####[facility] [id number] [place] [address] [place] APTT SCRN HZ + DOAC 32.9 Normal 24.0-35.1 [facility] Comment on above: Order Comment: Speci men Type: BLOOD SPECIMENOrdering Facility: [facility] Address: [address] [place] [address] Performed By: #### L [id number], LUPPL ####[facility] [id number] [place] [address] [place] Coagulation factor X activated act Coag Qn (PPP) 0.85 High <0.10 [facility] Comment on above: Order Comment: Speci men Type: BLOOD SPECIMENOrdering Facility: [facility] Address: [address] [place] [address] Result Comment: This test was developed, and its performance characteristics determined by the [facility] Department of Pathology and Laboratory Medicine. It has not been cleared or approved by the FDA. The [facility] Department of Pathology and Laboratory Medicine is regulated under CLIA as qualified to perform high-complexity testing. This test is used for clinical purposes. It should not be regarded as investigational or for research. Performed By: #### L [id number], LUPPL ####[facility] [id number] [address] [place] Thrombin time Coag (PPP) [Time] 18.5 seconds Normal <18.6 [facility] Comment on above: Order Comment: Zachariah pena Type: BLOOD SPECIMENOrdering Facility: [facility] Address: [address] [place] [address] Performed By: #### L [id number], LUPPL ####[facility] [id number] [address] [place] THROMBIN TIME HZ + DOAC 18.2 Normal <18.6 [facility] Comment on above: Order Comment: Speci jean Type: BLOOD SPECIMENOrdering Facility: [facility] Address: [address] [place] [address] Performed By: #### L [id number], LUPPL ####[facility] [id number] [address] [place] LUPUS PANEL INTERPon 025 Lupus anticoagulant (PPP) [Interp] Normal [facility] Comment on above: Order Comment: Specdemetrius pena Type: BLOOD SPECIMENOrdering Facility: [facility] Address: [address] [place] [address] Result Comment: Linh parr - see comment below. SIGNIFICANT FINDINGS: DRUG [...] DRVVT and PNP. Performed By: #### L DO5139, LUPPL ####[facility] [id number] [place] [address] [place] Pathologist name Reviewed by Maye Melo MD, PhD Normal [facility] Comment on above: Order Comment: Zachariah pena Type: BLOOD SPECIMENOrdering Facility: [facility] Address: [address] [place] [address] Performed By: #### L [id number], LUPPL ####[facility] LABIA [id number] [address] [place] PT panel Coag (PPP)on 2024 INR Coag (PPP) [Relative time] 1.0 {INR} Normal 0.9-1.3 [facility] Comment on above: Order Comment: Zachariah pena Type: BLOOD SPECIMENOrdering Facility: [facility] Address: [address] [place] [address] Result Comment: Marcia min K Antagonist (VKA) Therapeutic Range: INR 2 to 3 (Target INR of 2.5) Note: For patients treated with VKA drugs, such as warfarin, the [employer] [employer] 2012 Guideline recommends [...] 2.5 to 3.5 (target INR of 3). Guzehratt GH, et al. Chest 2012, 141:7S-47S Larisa RA, et al. [facility] 2017, 70: 252-289 Performed By: #### 3 4528-0, 98181-5 ####[facility] [id number] [place] [address] [place] PT Coag (PPP) [Time] 10.7 s Normal <13.1 [facility] Comment on above: Order Comment: Speci men Type: BLOOD SPECIMENOrdering Facility: [facility] Address: [address] [place] [address] Performed By: #### 3 4528-0, 69305-3 ####[facility] [id number] [place] [address] [place] aPTT PPPon 06-21-2024 aPTT Coag (PPP) [Time] 27.9 s Normal 23.0-32.4 [facility] Comment on above: Order Comment: Speci men Type: BLOOD SPECIMENOrdering Facility: [facility] Address: [address] [place] [address] Performed By: #### 3 4528-0, 97861-9 ####[facility] [id number] [place] [address] [place] Urgent Care Visit Reporton 0 06-19-2024 Urgent Care Visit Report [facility] [address], [address] [place] [address] OFFICE VISIT Date of Service: 06/19/24 MR#: [id number] Acct: [id number] Name: CODY SANTANA Rep #: [id number] : 1985 Provider: ALONZO Escoto Age/Sex: 38/F [facility] Status: Signed Intake Vital Signs 03/05/24 07:48 [...] Pain scale (1-10): 4 Allergies acetaminophen (From [place]) Allergy (Verified 06/19/24 11:38) Itching hydrocodone (From [place]) Allergy (Verified 06/19/24 11:38) Itching oxycodone (From Percocet) Adverse Reaction (Intermediate, Verified 06/19/24 11:38) Itching cephalexin monohydrate (From Keflex) Adverse Reaction (Verified 06/19/24 11:38) WEAKNESS, MUSCLE ACHES Medications ???Medication ???Instructions ???Recorded ???Confirmed ???Type medroxyprogesterone 150 mg/mL 150 mg IM .[id number] control 01/30/15 06/19/24 History intramuscular syringe topiramate [...] about 2 days. Patient states it crusty. [facility] Medical History Lumbar pain with radiation down [...] does not use HPI HPI Details: CODY SMAIL, is a 38 F who presents to the office today for initial evaluation approximately 5- day history of honey colored crusting lesion immediately lateral to right upper lip. Patient having had similar presentation several months ago and was dais noticed with impetigo then is concerned she may have the same again today. No rmsq-ndr-scnjfbj topical or oral medications tried to assist. No complaints of fever, chills, sweats. No other associated symptoms and no other alleviating/aggravating factors. ROS Const Constitutional: Positive for other (as above) Exam Const General: cooperative, healthy appearing and no acute distress Orientation: alert and awake HENGA Head: normal to inspection Ears: external ears normal Nose (more content not included)... Normal [facility] 06-12-2024 [facility] Telephone (JOSE) CODY SANTANA ([id number]) 1985 F Date Time Provider Department 06/12/24 [...] with patient and also sent instructions via Microstim. PSS- please schedule a lab appointment for LUPUS ANTI-COAGULANT PANEL 06/21/2024 @ 1:30 pm. Patient is aware of appointment date and time. SUSY Yanes, Victor Manuel 06/13/2024 2:12 PM Signed Lab [...] [D68.62] Order(s):LUPUS ANTICOAG PL [SQLUPUSP] Order #: [id number] FUTURE enoxaparin (LOVENOX) 100 mg/mL syrgInject 0.9 [...] Encounter Status:Closed by NATALIE MANCIA on 06/13/24 [facility] Visit (SP) Office (HEMDANIEL) CODY SANTANA ([id number]) 1985 F Date Time Provider Department 05/31/24 [...] outlined below. DVT left leg diagnosed somewhere [id number]. Anticoagulated for several months. Multiple PEs. Anticoagulated [...] early to have tested positive for . [facility]. On Depo-Provera since about 2015. Was admitted to [facility] in August of this year [...] of a lower extremity duplex ultrasound at [facility] from 08/07/2020 showing partial compressibility with bright [...] No extremity (more content not included)... Normal [facility] D dimer FEU PPP-ncon 05-31 Fibrin D-dimer FEU (PPP) [Mass/Vol] 210 ng/mL FEU Normal <500 [facility] Comment on above: Order Comment: Speci men Type: BLOOD SPECIMENOrdering Facility: [facility] Address: [address] [place] [address] Result Comment: [place] en Plasma Aliquot Performed By: #### 4 8065-7 ####[facility] LABRADHA [id number] [address] OF [facility] CNOVon 05-24-2024 CNOV Office Visit (UCWSTR ) CODY HENRY ([id number]) 1985 F Date Time Provider Department 05/24/24 11:15 AM LES MCKEON [facility] During your visit today, we recorded the following information about you: Temperature Pulse Respiration Blood pressure 98.1 degrees 74/minute 16/minute 115/78 Weight 95 kg Les Mckeon APRN.TITLE ABSTRACTOR 05/24/2024 12:08 PM Signed Subjective HPI Nontoxic-appearing [...] surgeries or fractures previously. Is not . Yohch-geax-ajurgmaa. Past medical history prescription medications allergies reviewed. [...] as needed. (more content not included)... Normal [facility] XR SHLDR >/=3V AP/SHIV AP/OTH R RTon [...] cervical spine. IMPRESSION: No acute osseous abnormality. Car Tracer: LUDIVINA Transcribe Date/Time: May 24 2024 11:57A Dictated by : CRYSTAL SCHAFFER DO This examination was interpreted and the report reviewed and electronically signed by: CRYSTAL SCHAFFER DO on May 24 2024 11:58AM EST [id number] Normal [facility] XR Shoulder - right 3 Viewso n 05-24-2024 IMPRESSION: No acute osseous abnormality. Car Tracer: LUDIVINA Transcribe Date/Time: May 24 2024 11:57A [...] the cervical spine. DIVISION OF RADIOLOGY Provider, [facility] - 05/24/2024 * * *Final Report* * [...] spine. IMPRESSION IMPRESSION: No acute osseous abnormality. Car Tracer: LUDIVINA Transcribe Date/Time: May 24 2024 11:57A Dictated by : CRYSTAL SCHAFFER DO This examination was interpreted and the report reviewed and electronically signed by: CRYSTAL SCHAFFER DO on May 24 2024 11:58AM EST [facility] Radiology Study observation (narrative) [facility] XR Shoulder - right 3 ViewsO rdered By: Ccf Provider on 05-24-2024 [facility] 04-30-2024 [facility] Telephone (NHATWN) CODY SANTANA ([id number]) 1985 F Date Time Provider Department 04/30/24 KIRBY MONGE [facility] During your visit today, we recorded the following information about you: Unruly Gonzalez RN 04/30/2024 12:01 PM Signed Cody Santana (Dimas: [id number]) - [id number] Nurtec 75MG dispersible tablets status: PA Request Created: April 29, 2024 [id number] Sent: April 30, 2024 Unruly Gonzalez RN 04/30/2024 3:19 PM Signed Cody Santana (Dimas: [id number]) - [id number] Nurtec 75MG dispersible tablets status: PA Response - Approved Created: April 29, 2024 [id number] Sent: April 30, 2024 Allergies As of Date: 04/30/2024 Noted Allergy Reaction KEFLEX (CEPHALEXIN) 09/14/2023 14 - Other: See Comments Comments: Sierra, weak PERCOCET (OXYCODONE-ACETAMINOPHE N)09/14/2023 14 - Other: See Comments Comments: Nose itch Date Reviewed: 04/10/2024 Reviewed by: Inderjit Ontiveros MA - Fully Assessed Reason for Visit: Medication Authorization [1699] Krystyna/De/Kamryn [Other] Prescriptions as of 05/24/2024 - rimegepant [...] Status:Closed by UNRULY GONZALEZ on 04/30/24 Normal [facility] 04-11-2024 [facility] Telephone (UCWSTR) CODY SANTANA ([id number]) 1985 F Date Time Provider Department 04/11/24 CRISSY BELL [facility] During your visit today, we recorded the following information about you: Crissy Bell APRN.[facility] 04/11/2024 7:41 AM Signed Please notify knee xray negative. Continue with plan as discussed during visit. Cody Riley MA 04/11/2024 8:14 AM Signed Patient active [employer]Medom[employer]. Last login 04/10. Patient notified via Microstim message. Cody Riley MA Allergies As of [...] Encounter Status:Closed by CODY RILEY on 04/11/24 [facility] Office Visit (UCWSTR ) CODY SANTANA ([id number]) 1985 F Date Time Provider Department 04/10/24 7:45 PM JAY DELGADO [facility] During your visit today, we recorded the following information about you: Temperature Pulse Respiration Blood pressure 98.9 degrees 79/minute 18/minute 115/77 Weight 96.5 kg Jay Delgado, PASTOR.TITLE ABSTRACTOR 04/10/2024 7:46 PM Signed This note was created using Rethink Booksriter. Sarath Santana is a 38 year old [...] 4V AP BOTH/PA BOTH/LAT/MERC LEFT Jay Delgado APRN.TITLE ABSTRACTOR Allergies As of Date: 04/10/2024 Noted Allergy [...] KNEE GENERAL 4V AP BOTH/PA BOTH/LAT/MERC LEFT [[id number]] Order #: [id number] FUTURE Prescriptions as of 04/10/2024 - predniSONE [...] Encounter Status:Closed by JAY DELGADO on 04/10/[address] [facility] MR/BMSVijay 04-10-2024 MR/BMS.BVS [facility] Vascular Surgery [address] [place], [place] [id number] OFFICE VISIT Date of Service: 04/10/24 MR#: [id number] Acct: [id number] Name: CODY SANTANA Rep #: [id number] : 1985 Provider: ALONZO Schulz Age/Sex: 38/F Location[facility] Status: Signed Intake Vital Signs 03/05/24 07:48 [...] patient in pain?: Yes Allergies acetaminophen (From [place]) Allergy (Verified 04/10/24 11:42) Itching hydrocodone (From [place]) Allergy (Verified 04/10/24 11:42) Itching oxycodone (From Percocet) Adverse Reaction (Intermediate, Verified 04/10/24 11:42) Itching cephalexin monohydrate (From Keflex) Adverse Reaction (Verified 04/10/24 11:42) WEAKNESS, MUSCLE ACHES Medications ???Medication ???Instructions ???Recorded ???Confirmed ???Type medroxyprogesterone 150 mg/mL 150 mg IM .[id number] control 01/30/15 01/16/24 History intramuscular syringe topiramate [...] baseline. Recall that she presented to the [facility] ER on 01/08/24 with complaint of pain [...] to confirm (more content not included)... Normal [facility] XR KNEE 4V AP/PA BOTH+LAT/ME [...] No joint effusion. IMPRESSION: No acute abnormality Car Tracer: LUDIVINA Transcribe Date/Time: Apr 10 2024 8:15P Dictated by : YON HURD MD This examination was interpreted and the report reviewed and electronically signed by: YON HURD MD on Apr 10 2024 8:16PM EST [id number] Normal [facility] XR Knee - left 4 Viewson IMPRESSION: No acute abnormality Car Tr[facility] Transcribe Date/Time: Apr 10 2024 8:15P Dictated [...] No joint effusion. DIVISION OF RADIOLOGY Provider, [facility] - 04/10/2024 * * *Final Report* * [...] joint effusion. IMPRESSION IMPRESSION: No acute abnormality Car Tracer: PSCB Transcribe Date/Time: Apr 10 2024 8:15P Dictated by : YON HURD MD This examination was interpreted and the report reviewed and electronically signed by: YON HURD MD on Apr 10 2024 8:16PM EST [facility] Radiology Study observation (narrative) [facility] XR Knee - left 4 ViewsOrdere d By: Ccf Provider on 04-10-2024 [facility] CNOVon 03-28-2024 CNOV Office Visit (UCWSTR ) CODY SANTANA ([id number]) 1985 F Date Time Provider Department 03/28/24 6:45 PM NELI REDD [facility] During your visit today, we recorded the following information about you: Temperature Pulse Blood pressure Weight 98 degrees 76/minute 101/68 93 kg Neli Redd APRN.TITLE ABSTRACTOR 03/29/2024 9:22 AM Signed This note was created using [employer]. Subjective Cody Santana is a 38 year [...] and chest tightness remain. 'can't sleep at night" Endorses winded with activity Denies she has been diagnosed with asthma or COPD The history is provided by the patient. No foreign language stenographer was used. Cough This is a new [...] color gunn (more content not included)... Normal [facility] XR CHEST 2V FRONTAL/LATon XR CHEST 2V [...] cervicothoracic junction. IMPRESSION: No acute radiographic abnormality. Car Tracer: LUDIVINA Transcribe Date/Time: Mar 28 2024 7:53P Dictated by : LUCINA WING MD This examination was interpreted and the report reviewed and electronically signed by: LUCINA WING MD on Mar 28 2024 7:54PM EST [id number] Normal [facility] XR Chest PA and Lateralon IMPRESSION: No acute radiographic abnormality. Car Tracer: PSCB Transcribe Date/Time: Mar 28 2024 7:53P Dictated by : LUCINA WING MD This examination was interpreted and the report reviewed and electronically signed by: LUCINA WING MD on Mar 28 2024 7:54PM [facility] DIVISION OF RADIOLOGY * * *Final Report* [...] the cervicothoracic junction. DIVISION OF RADIOLOGY Provider, [facility] - 03/28/2024 * * *Final Report* [...] junction. IMPRESSION IMPRESSION: No acute radiographic abnormality. Car Tracer: PSCB Transcribe Date/Time: Mar 28 2024 7:53P Dictated by : LUCINA WING MD This examination was interpreted and the report reviewed and electronically signed by: LUCINA WING MD on Mar 28 2024 7:54PM [facility] Radiology Study observation (narrative) [facility] XR Chest PA and LateralOrder ed By: Ccf Provider on 03-28-2024 [facility] CNOVon 03-19-2024 CNOV Office Visit (UCWSTR ) CODY SANTANA ([id number]) 1985 F Date Time Provider Department 03/19/24 9:15 AM MICHELLE MARVIN [facility] During your visit today, we recorded the following information about you: Temperature Pulse Respiration Blood pressure 98.3 degrees 96/minute 18/minute 106/64 Weight 93.4 kg Michelle Marvin APRN.TITLE ABSTRACTOR 03/19/2024 9:31 AM Signed CC: Patient presents [...] Patient agreeable to treatment plan. Michelle Marvin APRN.CNP Allergies As of Date: 03/19/2024 Noted Allergy [...] day for (more content not included)... Normal [facility] CNOVon 02-28-2024 CNOV Office Visit (CVAKPO ) CODY SANTANA ([id number]) 1985 F Date Time Provider Department 02/28/24 11:00 AM CHARLINE WOOTEN During your visit today, we recorded the following information about you: Pulse Blood pressure Weight Height 84/minute 110/73 90.3 kg 1.6 m Charline Wooten APRN.CNP 02/28/2024 12:44 PM Signed [facility] Established [...] right facial weakness and was admitted to [facility]. As per the patient, stroke was [...] was laying down to go to bed. [place] like prior episodes. No issues getting up [...] lovenox then consideration of going to xarelto. [facility] vascular -unsure of next appt with [...] (LAMICTAL) 20 (more content not included)... Normal [facility] CNOVon 10-25-2023 CNOV Office Visit (CVAKPO ) CODY SANTANA ([id number]) 1985 F Date Time Provider Department 10/25/23 10:00 AM ELIZABETH MARQUES CVAKRICHARD During your visit today, we recorded the following information about you: Pulse Blood pressure Weight Height 85/minute 109/73 90.7 kg 1.6 m Elizabeth Marques MD 11/13/2023 2:34 PM Signed [facility] Initial Visit Consultation is requested by: Janet Fernandez [id number] [id number] PCP: To use this Smartlink, specify the [...] right facial weakness and was admitted to [facility]. As per the patient, stroke was [...] 109/73 Pulse 85 Ht 160 cm (5' 3") Wt 90.7 kg (200 lb) BMI 35.43 [...] side Coordination: Rapid alternating movements symmetric bilaterally. [id number], without dysmetria bilaterally. Gait: Narrow-based, normal spaced and stable without assistance LABS Cholesterol: No results found for: CHOL No results found for: LDL No results found for: HDL No results found for: TG Diabetes: No results found for: "HBA1C" IMAGING MRI brain: mild bilateral white matter changes (more content not included)... Normal [facility] 10[facility]25[facility]2023 [facility] Tele[facility] (CVAKPO) CODY SANTANA ([id number]) 1985 F Date Time Provider Department 10/25/23 [facility]QUES [facility] During your visit today, we recorded the following information about you: Shanda Parikh 10/25/2023 10:57 AM Signed Submitted through portal Consult to Hematology/Oncology #[id number], to be scheduled in [facility] Shanda Parikh 10/30/2023 11:37 AM Signed Received through portal Consult to Hematology/Oncology #[id number], patient has been scheduled 11/14/23 with Paty Arciniega in the [facility] Allergies As of Date: 10/25/2023 Noted Allergy [...] Encounter Status:Closed by SHANDA PARIKH on 10/25/23 [facility] Absolute lymphocyte countOrd ered By: Bridgett Ponce on 08-30-2023 Lymphocytes Auto (Unsp spec) [#/Vol] 2.48 10*3/uL 0.83-4.51 [facility] Automated lymphocyte count a s percentage of total leukocytesOrdered By: Bridgett Ponce on 08-30-2023 Lymphocytes/100 WBC Auto (Unsp spec) 44.5 % 19-41 [facility] Basophil percentageOrdered B y: Rosario on 08-30-2023 Basophils/100 WBC (Bld) 0.7 % 0-1 [facility] Bilirubin [Mass/Vol] 0.30 mg/dL 0.20-1.00 [facility] Comment on above: For patients on eltr ombopag therapy, use of Dimension [place] TBIL is not recommended. Chloride [Moles/Vol] 118 mmol/L 98-107 [facility] Eosinophils/100 WBC (Bld) 3.6 % 0-5 [facility] Glucose [Mass/Vol] 111 mg/dL 74-106 [facility] Comment on above: Fasting Glucose resu lt from 100 to 125 mg/dL suggests IMPAIRED HOMEOSTASIS per A.D.A. criteria. Hemoglobin (Bld) [Mass/Vol] 11.5 g/dL 12.0-15.0 [facility] Monocytes/100 WBC (Bld) 8.1 % 0-10 [facility] Neutrophils (Bld) [#/Vol] 2.4 10*3/uL 2.0-7.7 [facility] Neutrophils/100 WBC (Bld) 42.9 % 47-70 [facility] Potassium [Moles/Vol] 3.4 mmol/L 3.5-5.1 [facility] Protein [Mass/Vol] 6.4 g/dL 6.4-8.2 [facility] Sodium [Moles/Vol] 143 mmol/L 136-145 [facility] WBC (Bld) [#/Vol] 5.6 10*3/uL 4.4-11.0 [facility] Determination of erythrocyte mean corpuscular volume (MCV)Ordered By: Bridgett Rosario on 08-30-2023 MCV (RBC) [Entitic vol] 93.3 fL 81-99 [facility] Erythrocyte distribution wid th ratioOrdered By: on 08-30-2023 Erythrocyte distribution width (RBC) [Ratio] 13.4 % 11.6-14.6 [facility] Erythrocyte distribution wid th standard deviationOrdered By: on 08-30-2023 Erythrocyte distribution width (RBC) [Entitic vol] 46.0 fL 35.1-43.9 [facility] Hematocrit Auto (Bld) [Volum e fraction]Ordered By: Rosario on 08-30-2023 Hematocrit (Bld) [Volume fraction] 34.8 % 37-47 [facility] Immature granulocytes/100 WB C Auto (Bld)Ordered By: Rosario on 08-30-2023 Immature granulocytes/100 WBC (Bld) 0.200 % 0.0-0.9 [facility] Comment on above: IG% - Immature Granu locytes (promyelocytes, myelocytes and metamyelocytes) > 1% indicates that a LEFT SHIFT is Present. Laboratory - Chemistry and C hemistry - challengeOrdered By: Bridgett Ponce on 08-30-2023 Albumin/Globulin [Mass ratio] 0.9 {ratio} 0.9-2.4 [facility] ALP [Catalytic activity/Vol] 51 U/L 45-117 [facility] ALT [Catalytic activity/Vol] 18 U/L 13-56 [facility] CO2 [Moles/Vol] 18.0 mmol/L 21.0-32.0 [facility] Globulin (S) [Mass/Vol] 3.3 g/dL 2.2-4.2 [facility] Urea nitrogen/Creatinine [Mass ratio] 10.2 mg/mg 10-20 [facility] Laboratory - Hematology and Cell countsOrdered By: Bridgett Ponce on 08-30-2023 MCH (RBC) [Entitic mass] 30.8 pg 27.0-32.0 [facility] MCHC (RBC) [Mass/Vol] 33.0 g/dL 32-36 [facility] Nucleated RBC/100 WBC (Bld) [Ratio] 0 % 0-5 [facility] Platelet mean volume (Bld) [Entitic vol] 9.9 fL 6.2-12.0 [facility] Platelets (Bld) [#/Vol] 180 10*3/uL 150-450 [facility] No Panel InformationOrdered By: Bridgett Ponce on 08-30-2023 Estimated Creatinine Clearance Calc 94.09 ml/min [facility] Estimated GFR (MDRD) Amer 93 mL/min >60 [facility] Comment on above: GFR Calc Estimated GFR (MDRD) Non-Af Amer 77 mL/min >60 [facility] Comment on above: Non- GFR Calc RBC Auto (Bld) [#/Vol]Ordere d By: Bridgett Ponce on 08-30-2023 RBC (Bld) [#/Vol] 3.73 10*6/uL 4.2-5.4 [facility] Serum or plasma calcium mykel urement (mass/volume)Ordered By: Bridgett Ponce on 08-30-2023 Calcium [Mass/Vol] 8.7 mg/dL 8.5-10.1 [facility] Serum or plasma creatinine m easurement (mass/volume)Ordered By: Bridgett Ponce on 08-30-2023 Creatinine [Mass/Vol] 0.88 mg/dL 0.55-1.02 [facility] Comment on above: The validity of the calculated GFR & GFRAA in patients over 70 years has not been determined. Clinical correlation is essential. Serum or plasma thyroid stim ulating hormone (TSH) measurement (units/volume)Ordered By: [facility] Rosario on 08-30-2023 TSH Qn 1.17 uIU/mL 0.358-3.74 [facility] Serum or plasma urea nitroge n measurement (mass/volume)Ordered By: Bridgett Ponce on 08-30-2023 Urea nitrogen [Mass/Vol] 9 mg/dL 7-18 [facility] Thin prep Papanicolaou smear with manual screeningOrdered By: [facility] Rosario on 08-30-2023 Thin prep Papanicolaou smear with manual screening 3.1 g/dL 3.2-5.0 [facility] Thin prep Papanicolaou smear with manual screening 18 U/L 15-37 [facility] Thin prep Papanicolaou smear with manual screening 7 5-15 [facility] Whole blood hemoglobin A1c/t otal hemoglobin ratio (mass fraction)Ordered By: Bridgett Ponce on 08-30-2023 HbA1c (Bld) [Mass fraction] 5.1 % 3.8-5.6 [facility] Comment on above: Normal < 5.7 % Predi abetic 5.7 - 6.4 % Diabetic >or= 6.5 % Please note range changes. Absolute lymphocyte countOrd ered By: Axel Kaur on 08-29-2023 Lymphocytes Auto (Unsp spec) [#/Vol] 3.10 10*3/uL 0.83-4.51 [facility] Activated partial thrombopla stin time (aPTT) in platelet poor plasma by coagulation aOrdered By: Axel Kaur on 08-29-2023 aPTT Coag (PPP) [Time] 31.1 s 24.1-36.2 [facility] Automated lymphocyte count a s percentage of total leukocytesOrdered By: Axel Kaur on 08-29-2023 Lymphocytes/100 WBC Auto (Unsp spec) 42.1 % 19-41 [facility] Basophil percentageOrdered B y: Axel Kaur on 08-29-2023 Basophils/100 WBC (Bld) 0.8 % 0-1 [facility] Chloride [Moles/Vol] 113 mmol/L 98-107 [facility] Eosinophils/100 WBC (Bld) 1.9 % 0-5 [facility] Glucose [Mass/Vol] 92 mg/dL 74-106 [facility] Hemoglobin (Bld) [Mass/Vol] 11.9 g/dL 12.0-15.0 [facility] Monocytes/100 WBC (Bld) 5.7 % 0-10 [facility] Neutrophils (Bld) [#/Vol] 3.6 10*3/uL 2.0-7.7 [facility] Neutrophils/100 WBC (Bld) 49.4 % 47-70 [facility] Potassium [Moles/Vol] 3.4 mmol/L 3.5-5.1 [facility] Sodium [Moles/Vol] 142 mmol/L 136-145 [facility] WBC (Bld) [#/Vol] 7.4 10*3/uL 4.4-11.0 [facility] Determination of erythrocyte mean corpuscular volume (MCV)Ordered By: Axel Kaur on 08-29-2023 MCV (RBC) [Entitic vol] 93.6 fL 81-99 [facility] Erythrocyte distribution wid th ratioOrdered By: Axeldonovan Kaur on 08-29-2023 Erythrocyte distribution width (RBC) [Ratio] 13.3 % 11.6-14.6 [facility] Erythrocyte distribution wid th standard deviationOrdered By: Axeldonovan Kaur on 08-29-2023 Erythrocyte distribution width (RBC) [Entitic vol] 45.8 fL 35.1-43.9 [facility] Hematocrit Auto (Bld) [Volum e fraction]Ordered By: Axeldonovan Kaur on 08-29-2023 Hematocrit (Bld) [Volume fraction] 36.4 % 37-47 [facility] Immature granulocytes/100 WB C Auto (Bld)Ordered By: Axel Kaur on 08-29-2023 Immature granulocytes/100 WBC (Bld) 0.100 % 0.0-0.9 [facility] Comment on above: IG% - Immature Granu locytes (promyelocytes, myelocytes and metamyelocytes) > 1% indicates that a LEFT SHIFT is Present. Laboratory - Chemistry and C hemistry - challengeOrdered By: Bridgett White on 08-29-2023 Magnesium [Mass/Vol] 2.1 mg/dL 1.6-2.6 [facility] Laboratory - Chemistry and C hemistry - challengeOrdered By: Axeldonovan Kaur on 08-29-2023 CO2 [Moles/Vol] 23.0 mmol/L 21.0-32.0 [facility] Urea nitrogen/Creatinine [Mass ratio] 9.6 mg/mg 10-20 [facility] Laboratory - CoagulationOrde red By: Axeldonovan Kaur on 08-29-2023 INR Coag (Bld) [Relative time] 1.2 {INR} [facility] PT Coag (PPP) [Time] 15.2 s 11.7-14.9 [facility] Laboratory - Hematology and Cell countsOrdered By: Axeldonovan Kaur on 08-29-2023 MCH (RBC) [Entitic mass] 30.6 pg 27.0-32.0 [facility] MCHC (RBC) [Mass/Vol] 32.7 g/dL 32-36 [facility] Nucleated RBC/100 WBC (Bld) [Ratio] 0 % 0-5 [facility] Platelet mean volume (Bld) [Entitic vol] 9.7 fL 6.2-12.0 [facility] Platelets (Bld) [#/Vol] 192 10*3/uL 150-450 [facility] No Panel InformationOrdered By: Axeldonovan Kaur on 08-29-2023 Troponin I High Sensitivity 6 pg/mL 3.0-54.0 [facility] Comment on above: Please Note: [place] t Units and Gender Specific Reference Ranges. For more information see Policy Stat Procedure [place] High Sensitivity Troponin (TNIH) and attachments. Estimated Creatinine Clearance Calc 86.66 ml/min [facility] Estimated GFR (MDRD) Amer 87 mL/min >60 [facility] Comment on above: GFR Calc Estimated GFR (MDRD) Non-Af Amer 72 mL/min >60 [facility] Comment on above: Non- GFR Calc No Panel InformationOrdered By: Bridgett Ponce on 08-29-2023 Ethyl Alcohol Level < 3.0 mg/dL [facility] Comment on above: The serum:whole bloo d ethanol ratio is approximately 1.14and varies slightly with hematocrit. Medical Alcohol reference interval and critical value innon-tolerant individuals; 50 - 100 Impairment 100 Intoxication 100 - 250 Severe Poisoning 250 - 400 Deep/possible fatal coma RBC Auto (Bld) [#/Vol]Ordere d By: [facility] on 08-29-2023 RBC (Bld) [#/Vol] 3.89 10*6/uL 4.2-5.4 [facility] Serum or plasma calcium mykel urement (mass/volume)Ordered By: Axel [facility] on 08-29-2023 Calcium [Mass/Vol] 9.0 mg/dL 8.5-10.1 [facility] Serum or plasma creatinine m easurement (mass/volume)Ordered By: [facility] on 08-29-2023 Creatinine [Mass/Vol] 0.94 mg/dL 0.55-1.02 [facility] Comment on above: The validity of the calculated GFR & GFRAA in patients over 70 years has not been determined. Clinical correlation is essential. Serum or plasma urea nitroge n measurement (mass/volume)Ordered By: [facility] on 08-29-2023 Urea nitrogen [Mass/Vol] 9 mg/dL 7-18 [facility] Thin prep Papanicolaou smear with manual screeningOrdered By: Axel [facility] on 08-29-2023 Thin prep Papanicolaou smear with manual screening 6 5-15 [facility] Laboratory - Microbiology an d Antimicrobial susceptibilityon 05-22-2023 S. pyogenes Ag IA Ql (Unsp spec) Negative [facility] MRI BRAIN WO/W IVCONon 05-16 MRI BRAIN WO/W IVCON * * *Final Report* * * DATE OF EXAM: May 16 2023 4:13PM SPM 0295 - MRI BRAIN WO/W IVCON / [...] May 16 2023 5:10PM EST [id number] Normal [facility] No Panel Informationon 04-25 POC SARS CoV-2 Antigen Negative [facility] Absolute lymphocyte countOrd ered By: Bridgett Ponce on 03-16-2023 Lymphocytes Auto (Unsp spec) [#/Vol] 3.21 10*3/uL 0.83-4.51 [facility] Basophil percentageOrdered B y: Bridgett Ponce on 03-16-2023 Basophils/100 WBC (Bld) 0.6 % 0-1 [facility] Bilirubin [Mass/Vol] 0.30 mg/dL 0.20-1.00 [facility] Comment on above: For patients on eltr ombopag therapy, use of Dimension [place] TBIL is not recommended. Chloride [Moles/Vol] 116 mmol/L 98-107 [facility] Cholesterol [Mass/Vol] 134 mg/dL <200 [facility] Comment on above: <200 mg/dL Desirable 200-240 mg/dL Borderline >240 mg/dL High Risk Eosinophils/100 WBC (Bld) 2.4 % 0-5 [facility] Glucose [Mass/Vol] 89 mg/dL 74-106 [facility] Neutrophils (Bld) [#/Vol] 2.2 10*3/uL 2.0-7.7 [facility] Neutrophils/100 WBC (Bld) 36.4 % 47-70 [facility] Potassium [Moles/Vol] 3.2 mmol/L 3.5-5.1 [facility] Protein [Mass/Vol] 6.9 g/dL 6.4-8.2 [facility] Sodium [Moles/Vol] 142 mmol/L 136-145 [facility] Triglyceride [Mass/Vol] 59 mg/dL <199 [facility] Comment on above: The drugs N-Acetylcy steine and Metamizole may falsely depress this assay.Serum Triglycerides Reference Interval Normal <150 mg/dL Borderline high 150 - 199 mg/dL High 200 - 499 mg/dL Very High > or = 500 mg/dL WBC (Bld) [#/Vol] 6.2 10*3/uL 4.4-11.0 [facility] Blood erythrocytes count (nu mber/volume)Ordered By: Bridgett Ponce on 03-16-2023 RBC (Bld) [#/Vol] 3.61 10*6/uL 4.2-5.4 [facility] Blood hemoglobin measurement (mass/volume)Ordered By: Bridgett Ponce on 03-16-2023 Hemoglobin (Bld) [Mass/Vol] 11.1 g/dL 12.0-15.0 [facility] Blood lymphocytes/100 leukoc ytesOrdered By: Bridgett Ponce on 03-16-2023 Lymphocytes/100 WBC (Bld) 52.0 % 19-41 [facility] Blood monocytes/100 leukocyt esOrdered By: Bridgett Rosario on 03-16-2023 Monocytes/100 WBC (Bld) 8.4 % 0-10 [facility] Blood platelet mean volumeOr dered By: Bridgett Ponce on 03-16-2023 Platelet mean volume (Bld) [Entitic vol] 10.3 fL 6.2-12.0 [facility] Determination of erythrocyte mean corpuscular volume (MCV)Ordered By: Bridgett Ponce on 03-16-2023 MCV (RBC) [Entitic vol] 94.7 fL 81-99 [facility] Hematocrit Auto (Bld) [Volum e fraction]Ordered By: Bridgett Ponce on 03-16-2023 Hematocrit (Bld) [Volume fraction] 34.2 % 37-47 [facility] Laboratory - Chemistry and C hemistry - challengeOrdered By: Bridgett Ponce on 03-16-2023 ALP [Catalytic activity/Vol] 54 U/L 45-117 [facility] ALT [Catalytic activity/Vol] 18 U/L 13-56 [facility] CO2 [Moles/Vol] 21.0 mmol/L 21.0-32.0 [facility] Globulin (S) [Mass/Vol] 3.6 g/dL 2.2-4.2 [facility] Urea nitrogen/Creatinine [Mass ratio] 17.3 mg/mg 10-20 [facility] Laboratory - Hematology and Cell countsOrdered By: Bridgett Ponce on 03-16-2023 Erythrocyte distribution width (RBC) [Entitic vol] 49.1 fL 35.1-43.9 [facility] Erythrocyte distribution width (RBC) [Ratio] 14.0 % 11.6-14.6 [facility] Immature granulocytes/100 WBC (Bld) 0.200 % 0.0-0.9 [facility] Comment on above: IG% - Immature Granu locytes (promyelocytes, myelocytes and metamyelocytes) > 1% indicates that a LEFT SHIFT is Present. MCH (RBC) [Entitic mass] 30.7 pg 27.0-32.0 [facility] Nucleated RBC/100 WBC (Bld) [Ratio] 0 % 0-5 [facility] MCHC Auto (RBC) [Mass/Vol]Or dered By: Bridgett Ponce on 03-16-2023 MCHC (RBC) [Mass/Vol] 32.5 g/dL 32-36 [facility] No Panel InformationOrdered By: Bridgett Ponce on 03-16-2023 Estimated Creatinine Clearance Calc 79.43 ml/min [facility] Estimated GFR (MDRD) Amer 103 mL/min >60 [facility] Comment on above: GFR Calc Estimated GFR (MDRD) Non-Af Amer 85 mL/min >60 [facility] Comment on above: Non- GFR Calc Thyroid Stimulating Hormone (TSH) 0.92 uIU/mL 0.358-3.74 [facility] Platelets bldOrdered By: Breanna Ponce on 03-16-2023 Platelets (Bld) [#/Vol] 180 10*3/uL 150-450 [facility] Serum or plasma albumin mykel urement (mass/volume)Ordered By: Bridgett Ponce on 03-16-2023 Albumin [Mass/Vol] 3.3 g/dL 3.2-5.0 [facility] [place] Serum or plasma albumin/glob ulin mass ratioOrdered By: Bridgett Ponce on 03-16-2023 Albumin/Globulin [Mass ratio] 0.9 {ratio} 0.9-2.4 [facility] Serum or plasma calcium mykel urement (mass/volume)Ordered By: Bridgett Ponce on 03-16-2023 Calcium [Mass/Vol] 8.3 mg/dL 8.5-10.1 [facility] [place] Serum or plasma cholesterol in HDL measurement (mass/volume)Ordered By: Bridgett Ponce on 03-16-2023 Cholesterol in HDL [Mass/Vol] 33 mg/dL >40 [facility] Comment on above: The drugs N-Acetylcy steine and Metamizole may falsely depress this assay. Reference Range HDL <40 mg/dL Low HDL Cholesterol HDL >or= 60 mg/dL High HDL Cholesterol Serum or plasma cholesterol in VLDL measurement (mass/volume)Ordered By: Bridgett Ponce on 03-16-2023 Cholesterol in VLDL [Mass/Vol] 12 mg/dL 5-40 [facility] Serum or plasma creatinine m easurement (mass/volume)Ordered By: Bridgett Ponce on 03-16-2023 Creatinine [Mass/Vol] 0.81 mg/dL 0.55-1.02 [facility] Comment on above: The validity of the calculated GFR & GFRAA in patients over 70 years has not been determined. Clinical correlation is essential. Serum or plasma low density lipoprotein (LDL) cholesterol measurement (mass/volume)Ordered By: Bridgett Ponce on 03-16-2023 Cholesterol in LDL [Mass/Vol] 89 mg/dL 0-130 [facility] Serum or plasma urea nitroge n measurement (mass/volume)Ordered By: Bridgett Ponce on 03-16-2023 Urea nitrogen [Mass/Vol] 14 mg/dL 7-18 [facility] Thin prep Papanicolaou smear with manual screeningOrdered By: Bridgett Ponce on 03-16-2023 Thin prep Papanicolaou smear with manual screening 10 U/L 15-37 [facility] Thin prep Papanicolaou smear with manual screening 5 5-15 [facility] Whole blood hemoglobin A1c/t otal hemoglobin ratio (mass fraction)Ordered By: Bridgett Ponce on 03-16-2023 HbA1c (Bld) [Mass fraction] 5.2 % 3.8-5.6 [facility] Comment on above: Normal < 5.7 % Predi abetic 5.7 - 6.4 % Diabetic >or= 6.5 % Please note range changes. Absolute lymphocyte countOrd ered By: Jeremy Gerard on 03-15-2023 Lymphocytes Auto (Unsp spec) [#/Vol] 2.26 10*3/uL 0.83-4.51 [facility] Basophil percentageOrdered B y: Jeremy Gerard on 03-15-2023 Basophil percentage 0-5 SEEN /hpf 0-5 [facility] Basophils/100 WBC (Bld) 0.6 % 0-1 [facility] Chloride [Moles/Vol] 112 mmol/L 98-107 [facility] Eosinophils/100 WBC (Bld) 0.9 % 0-5 [facility] Glucose [Mass/Vol] 106 mg/dL 74-106 [facility] [place] Comment on above: Fasting Glucose resu lt from 100 to 125 mg/dL suggests IMPAIRED HOMEOSTASIS per A.D.A. criteria. Neutrophils (Bld) [#/Vol] 4.1 10*3/uL 2.0-7.7 [facility] Neutrophils/100 WBC (Bld) 59.0 % 47-70 [facility] Potassium [Moles/Vol] 3.0 mmol/L 3.5-5.1 [facility] Sodium [Moles/Vol] 140 mmol/L 136-145 [facility] [place] WBC (Bld) [#/Vol] 6.9 10*3/uL 4.4-11.0 [facility] [place] Bilirubin Test strip Ql (U)O rdered By: Jeremy Gerard on 03-15-2023 Bilirubin Ql (U) Negative Negative [facility] Blood erythrocytes count (nu mber/volume)Ordered By: Jeremy Gerard on 03-15-2023 RBC (Bld) [#/Vol] 3.98 10*6/uL 4.2-5.4 [facility] Blood hemoglobin measurement (mass/volume)Ordered By: Jeremy Gerard on 03-15-2023 Hemoglobin (Bld) [Mass/Vol] 12.3 g/dL 12.0-15.0 [facility] Blood lymphocytes/100 leukoc ytesOrdered By: Jeremy Gerard on 03-15-2023 Lymphocytes/100 WBC (Bld) 32.9 % 19-41 [facility] Blood monocytes/100 leukocyt esOrdered By: Jeremy Gerard on 03-15-2023 Monocytes/100 WBC (Bld) 6.3 % 0-10 [facility] Blood platelet mean volumeOr dered By: Jeremy Gerard on 03-15-2023 Platelet mean volume (Bld) [Entitic vol] 10.2 fL 6.2-12.0 [facility] Culture, urineOrdered By: Sanya Gerard on 03-15-2023 Bacteria identified Cx Nom (U) Positive [facility] Determination of erythrocyte mean corpuscular volume (MCV)Ordered By: Jeremy Gerard on 03-15-2023 MCV (RBC) [Entitic vol] 94.5 fL 81-99 [facility] Hematocrit Auto (Bld) [Volum e fraction]Ordered By: Jeremy Gerard on 03-15-2023 Hematocrit (Bld) [Volume fraction] 37.6 % 37-47 [facility] INR in Blood by Coagulation assayOrdered By: Jeremy Gerard on 03-15-2023 INR Coag (Bld) [Relative time] 1.2 {INR} [facility] Ketones Test strip Ql (U)Ord ered By: Jeremy Gerard on 03-15-2023 Ketones Ql (U) Negative Negative [facility] Laboratory - Chemistry and C hemistry - challengeOrdered By: Jeremy Gerard on 03-15-2023 CO2 [Moles/Vol] 23.0 mmol/L 21.0-32.0 [facility] Urea nitrogen/Creatinine [Mass ratio] 11.4 mg/mg 10- [facility] Laboratory - Chemistry and C hemistry - challengeOrdered By: Bridgett Ponce on 03-15-2023 Magnesium [Mass/Vol] 2.3 mg/dL 1.6-2.6 [facility] Laboratory - CoagulationOrde red By: Jeremy Gerard on 03-15-2023 aPTT Coag (Bld) [Time] 33.7 s 24.1-36.2 [facility] PT Coag (PPP) [Time] 15.5 s 11.7-14.9 [facility] Laboratory - Drug toxicology Ordered By: Jeremy Gerard on 03-15-2023 Amphetamines Ql (U) Negative <1000 ng/mL [facility] Benzodiazepines Ql (U) Negative < 200 ng/mL W [facility] Cannabinoids Screen Ql (U) Negative < 50 ng/mL [facility] Cocaine Ql (U) Negative < 300 ng/mL [facility] Opiates Ql (U) Negative < 300 ng/mL [facility] Laboratory - Hematology and Cell countsOrdered By: Jeremy Gerard on 03-15-2023 Erythrocyte distribution width (RBC) [Entitic vol] 47.6 fL 35.1-43.9 [facility] Erythrocyte distribution width (RBC) [Ratio] 13.7 % 11.6-14.6 [facility] Immature granulocytes/100 WBC (Bld) 0.300 % 0.0-0.9 [facility] Comment on above: IG% - Immature Granu locytes (promyelocytes, myelocytes and metamyelocytes) > 1% indicates that a LEFT SHIFT is Present. MCH (RBC) [Entitic mass] 30.9 pg 27.0-32.0 [facility] Nucleated RBC/100 WBC (Bld) [Ratio] 0 % 0-5 [facility] MCHC Auto (RBC) [Mass/Vol]Or dered By: Jeremy Gerard on 03-15-2023 MCHC (RBC) [Mass/Vol] 32.7 g/dL 32-36 [facility] Mucus LM Ql (Urine sed)Order ed By: Jeremy Gerard on 03-15-2023 Mucus Ql (Urine sed) 0 SEEN /hpf [facility] Nitrite Test strip Ql (U)Ord ered By: Jeremy Gerard on 03-15-2023 Nitrite Ql (U) Negative Negative [facility] No Panel InformationOrdered By: Jeremy Gerard on 03-15-2023 Ethyl Alcohol Level < 3.0 mg/dL [facility] Comment on above: The serum:whole bloo d ethanol ratio is approximately 1.14and varies slightly with hematocrit. Medical Alcohol reference interval and critical value innon-tolerant individuals; 50 - 100 Impairment 100 Intoxication 100 - 250 Severe Poisoning 250 - 400 Deep/possible fatal coma MDMA (Ecstasy) Screen Negative < 500 ng/mL [facility] Urine Barbiturates Screen Negative < 200 ng/mL [facility] Urine Drug Screen Comment [facility] Comment on above: CONFIRMATORY TESTING [...] Methadone Screen Negative < 300 ng/mL W [facility] Estimated Creatinine Clearance Calc 73.11 ml/min [facility] Estimated GFR (MDRD) Amer 94 mL/min >60 [facility] Comment on above: GFR Calc Estimated GFR (MDRD) Non-Af Amer 77 mL/min >60 [facility] Comment on above: Non- GFR Calc Troponin I High Sensitivity 6 pg/mL 3.0-54.0 [facility] Comment on above: Please Note: [place] t Units and Gender Specific Reference Ranges. For more information see Policy Stat Procedure [place] High Sensitivity Troponin (TNIH) and attachments. Platelets bldOrdered By: Edis Gerard on 03-15-2023 Platelets (Bld) [#/Vol] 192 10*3/uL 150-450 [facility] Protein Test strip Ql (U)Ord ered By: Jeremy Gerard on 03-15-2023 Protein Ql (U) Negative Negative [facility] Serum or plasma calcium mykel urement (mass/volume)Ordered By: Jeremy Gerard on 03-15-2023 Calcium [Mass/Vol] 9.4 mg/dL 8.5-10.1 [facility] [place] Serum or plasma creatinine m easurement (mass/volume)Ordered By: Jeremy Gerard on 03-15-2023 Creatinine [Mass/Vol] 0.88 mg/dL 0.55-1.02 [facility] Comment on above: The validity of the calculated GFR & GFRAA in patients over 70 years has not been determined. Clinical correlation is essential. Serum or plasma lamotrigine measurement (mass/volume)Ordered By: Bridgett Ponce on 03-15-2023 lamoTRIgine [Mass/Vol] 3.0 ug/mL 2.0-20.0 [facility] Comment on above: Detection Limit = 1. 0Performed at: [email or web address] [id number] Director: Raul Arboleda MD, Phone: [phone] Serum or plasma urea nitroge n measurement (mass/volume)Ordered By: Jeremy Gerard on 03-15-2023 Urea nitrogen [Mass/Vol] 10 mg/dL 7-18 [facility] Squamous epithelial cells de tection in urine sediment by light microscopyOrdered By: Jeremy Gerard on 03-15-2023 Epithelial cells.squamous LM Ql (Urine sed) 5-10 SEEN /hpf 5-10 [facility] Thin prep Papanicolaou smear with manual screeningOrdered By: Jeremy Gerard on 03-15-2023 Thin prep Papanicolaou smear with manual screening 5 5-15 [facility] Urine blood detectionOrdered By: Jeremy Gerard on 03-15-2023 RBC Ql (U) Negative Negative [facility] RBC Ql (U) 0 SEEN /hpf 0-5 [facility] Urine clarityOrdered By: Edis Gerard on 03-15-2023 Clarity (U) Clear Clear [facility] Urine color determinationOrd ered By: Jeremy Gerard on 03-15-2023 Color (U) Yellow Yellow [facility] Urine glucose detectionOrder ed By: Jeremy Gerard on 03-15-2023 Glucose Ql (U) Normal mg/dl Normal [facility] Urine leukocyte esterase det ection by dipstickOrdered By: Jeremy Gerard on 03-15-2023 Leukocyte esterase Test strip Ql (U) 100 /ul Negative [facility] Urine pHOrdered By: Jeremy Gerard on 03-15-2023 pH (U) 7.0 [pH] 5.0 - 8.0 [facility] Urine phencyclidine (PCP) de tectionOrdered By: Jeremy Gerard on 03-15-2023 Phencyclidine Ql (U) Negative < 25 ng/mL [facility] Urine sediment bacteria coun t by microscopy (number/high power field)Ordered By: Jeremy Gerard on 03-15-2023 Bacteria LM.HPF (Urine sed) [#/Area] 0 /[HPF] None Seen [facility] Urine specific gravity measu rementOrdered By: Jeremy Gerard on 03-15-2023 Specific gravity (U) [Rel density] 1.010 1.002-1.030 [facility] Urobilinogen Auto test strip Ql (U)Ordered By: Jeremy Gerard on 03-15-2023 Urobilinogen Ql (U) Normal mg/dl Normal [facility] .Auto Diffon 12-08-2022 Basophil, Absolute 0.0 10 3/mcL Normal 0.0-0.2 [facility] ([place]) Comment on above: Performed By: #### C CONSUELO NOWAK, ANEU #### [address] [address] Basophils/100 WBC (Bld) 0.3 % Normal 0.0-2.5 [facility] ([place]) Comment on above: Performed By: #### CONSUELO ANN, ANEU #### [address] [address] Eosinophil, Absolute 0.0 10 3/mcL Normal 0.0-0.4 [facility] ([place]) Comment on above: Performed By: #### C CONSUELO NOWAK, ANEU #### [address] [address] Eosinophils/100 WBC (Bld) 0.2 % Normal 0.0-7.0 [facility] ([place]) Comment on above: Performed By: #### CONSUELO ANN, ANEU #### [address] [address] Lymphocyte, Absolute 1.5 10 3/mcL Normal 0.8-3.9 [facility] ([place]) Comment on above: Performed By: #### CONSUELO ANN, ANEU #### [address] [address] Lymphocytes/100 WBC (Bld) 16.6 % Normal 10.0-50.0 [facility] ([place]) Comment on above: Performed By: #### CONSUELO ANN, ANEU #### [address] [address] Monocyte, Absolute 0.7 10 3/mcL Normal 0.2-1.0 [facility] ([place]) Comment on above: Performed By: #### CONSUELO ANN, ANEU #### [address] [address] Monocytes/100 WBC (Bld) 7.3 % Normal 1.7-13.0 [facility] ([place]) Comment on above: Performed By: #### CONSUELO ANN, ANEU #### [address] [address] Neutrophils/100 WBC (Bld) 75.6 % Normal 37.0-80.0 [facility] ([place]) Comment on above: Performed By: #### C CONSUELO NOWAK ANEU #### [address] [address] .GFRon 12-08-2022 GFR 84 ml/min/1.73sqm Normal [facility] ([place]) Comment on above: Result Comment: GFR Population [...] Performed By: #### G FR, BMP #### [address] [address] GFR Non- 69 ml/min/1.73sqm Normal [facility] ([place]) Comment on above: Result Comment: GFR Population [...] Performed By: #### G FR, BMP #### [address] [address] .NEUABSon 12-08-2022 Neutrophil, Absolute 7.0 10 3/mcL High 2.9-6.2 [facility] ([place]) Comment on above: Performed By: #### C CONSUELO NOWAK, KELLY #### [address] [address] BMPon 12-08-2022 BUN/Creatinine Ratio 10 ratio Normal 7-27 [facility] ([place]) Comment on above: Performed By: #### Maddie PIERSON, BMP #### [address] [address] Calcium [Mass/Vol] 7.9 mg/dL Low 8.4-10.2 [facility] ([place]) Comment on above: Performed By: #### Maddie PIERSON, BMP #### [address] [address] Chloride [Moles/Vol] 109 mmol/L High 98-107 [facility] ([place]) Comment on above: Performed By: #### Maddie PIERSON, BMP #### [address] [address] CO2 [Moles/Vol] 21 mmol/L Low 22-29 [facility] ([place]) Comment on above: Performed By: #### Maddie PIERSON, BMP #### [address] [address] Creatinine [Mass/Vol] 0.92 mg/dL Normal 0.55-1.02 [facility] ([place]) Comment on above: Performed By: #### Maddie PIERSON, BMP #### [address] [address] Electrolyte Balance 10.0 mEq/L Normal 4.0-15.0 [facility] ([place]) Comment on above: Performed By: #### Maddie PIERSON, BMP #### [address] [address] Glucose [Mass/Vol] 128 mg/dL High 70-105 [facility] ([place]) Comment on above: Performed By: #### Maddie PIERSON, BMP #### [address] [place] [address] Potassium [Moles/Vol] 3.6 mmol/L Normal 3.5-5.1 [facility] ([place]) Comment on above: Performed By: #### Maddie PIERSON, BMP #### [address] [address] Sodium [Moles/Vol] 140 mmol/L Normal 136-145 [facility] ([place]) Comment on above: Performed By: #### Maddie PIERSON, BMP #### [address] [address] Urea nitrogen [Mass/Vol] 9 mg/dL Normal 7-18 [facility] ([place]) Comment on above: Performed By: #### Maddie PIERSON, BMP #### [address] [address] CBCon 12-08-2022 Erythrocyte distribution width (RBC) [Ratio] 13.5 % Normal 11.5-14.5 [facility] ([place]) Comment on above: Performed By: #### CONSUELO ANN, ANEU #### [address] [address] Hematocrit (Bld) [Volume fraction] 33.8 % Low 37.0-47.0 [facility] ([place]) Comment on above: Performed By: #### CONSUELO ANN, ANEU #### [address] [address] Hgb 11.3 G/dL Low 12.0-16.0 [facility] ([place]) Comment on above: Performed By: #### CONSUELO ANN, ANEU #### [address] [address] MCH (RBC) [Entitic mass] 31.3 pg High 27.0-31.2 [facility] ([place]) Comment on above: Performed By: #### CONSUELO ANN, ANEU #### [address] [address] MCHC 33.3 G/dL Normal 33.0-37.0 [facility] ([place]) Comment on above: Performed By: #### C CONSUELO NOWAK, ANEU #### [place] [id number] [place], [place] [address] MCV (RBC) [Entitic vol] 94.1 fL High 80.0-94.0 [facility] ([place]) Comment on above: Performed By: #### C SHE, ADVINCENT, ANEU #### [address] [address] Platelet 141 10 3/mcL Normal 130-400 [facility] ([place]) Comment on above: Performed By: #### C SHE, CONSUELO, ANEU #### [address] [address] Platelet mean volume (Bld) [Entitic vol] 8.5 fL Normal 7.4-10.4 [facility] ([place]) Comment on above: Performed By: #### C SHE, CONSUELO, ANEU #### [address] [address] RBC 3.59 10 6/mcL Low 4.20-5.40 [facility] ([place]) Comment on above: Performed By: #### C SHE, CONSUELO, ANEU #### [address] [address] WBC 9.2 10 3/mcL Normal 4.6-10.8 [facility] ([place]) Comment on above: Performed By: #### C SHE, CONSUELO, ANEU #### [address] [address] LABORATORYOrdered By: Regis Sepulveda on 12-08-2022 Basophil, [...] s Normal 25.0-35.0 [facility] ([place]) Comment on above: Result Comment: For Heparin anticoagulation therapy, the recommended therapeutic range is: 50.6-87.4 seconds. Patients on heparin therapy may have an extreme result. Performed By: #### P RO, APTT #### [address] [address] Heparin dose (APTT) Unknown Normal [facility] ([place]) Comment on above: Performed By: #### P RO, APTT #### [address] [address] LABORATORYOrdered By: Regis Sepulveda on 12-07-2022 aPTT [...] HCG ( test) Ql (U) Negative Normal [facility] ([place]) Comment on above: Performed By: #### G FR, BMP #### [place] [address] test (u) int Not detected Invalid Interpretation Code [facility] ([place]) Comment on above: Performed By: #### G FR, BMP #### [address] [address] PROon 12-07-2022 PT Coag (PPP) [Time] 12.9 s Normal 9.1-14.2 [facility] ([place]) Comment on above: Order Comment: Short sample. Notified Surgery @12/07/2022 07:29:42 EDT BP Performed By: #### P RO, APTT #### [address] [address] PT International Ratio 1.1 Normal [facility] ([place]) Comment on above: Order Comment: Short sample. Notified Surgery @12/07/2022 07:29:42 EDT BP Result Comment: [employer] (CHEST, 1992, [id number]) recommended therapeutic range for oral anticoagulant therapy is: LOW RISK: Prophylaxis of venous thrombosis INR: 2.0-3.0 Treatment of pulmonary embolism 2.0-3.0 Prevention of systemic embolism 2.0-3.0 HIGH RISK: Mechanical prosthetic valves 2.5-3.5 Performed By: #### P RO, APTT #### [address] [address] XR FLUORO 1-2 HRS TECH TIMEo n 12-07-2022 XR FLUORO 1-2 HRS TECH TIME ORIGINAL Images acquired, not reported on this accession number. Normal [facility] ([place]) XR CHEST 2 VIEWSon 3 XR CHEST [...] 9:01:26 AM Ordering Provider: LES MICHEL Normal [facility]) .Auto Diffon 11-25-2022 Basophil, Absolute 0.0 10 3/mcL Normal 0.0-0.2 [facility]) Comment on above: Performed By: #### B MP, ADIFF, APTT, CBC, PRO, GFR, ANEU #### [address] [address] Basophils/100 WBC (Bld) 0.7 % Normal 0.0-2.5 [facility] ([place]) Comment on above: Performed By: #### B MP, ADIFF, APTT, CBC, PRO, GFR, ANEU #### [address] [address] Eosinophil, Absolute 0.1 10 3/mcL Normal 0.0-0.4 [facility] ([place]) Comment on above: Performed By: #### B MP, ADIFF, APTT, CBC, PRO, GFR, ANEU #### [address] [address] Eosinophils/100 WBC (Bld) 2.4 % Normal 0.0-7.0 [facility] ([place]) Comment on above: Performed By: #### B MP, ADIFF, APTT, CBC, PRO, GFR, ANEU #### [address] [address] Lymphocyte, Absolute 2.1 10 3/mcL Normal 0.8-3.9 [facility] ([place]) Comment on above: Performed By: #### B MP, ADIFF, APTT, CBC, PRO, GFR, ANEU #### [address] [address] Lymphocytes/100 WBC (Bld) 39.1 % Normal 10.0-50.0 [facility] ([place]) Comment on above: Performed By: #### B MP, ADIFF, APTT, CBC, PRO, GFR, ANEU #### [address] [address] Monocyte, Absolute 0.5 10 3/mcL Normal 0.2-1.0 [facility] ([place]) Comment on above: Performed By: #### B MP, ADIFF, APTT, CBC, PRO, GFR, ANEU #### [address] [address] Monocytes/100 WBC (Bld) 8.5 % Normal 1.7-13.0 [facility] ([place]) Comment on above: Performed By: #### B MP, ADIFF, APTT, CBC, PRO, GFR, ANEU #### [address] [address] Neutrophils/100 WBC (Bld) 49.3 % Normal 37.0-80.0 [facility] ([place]) Comment on above: Performed By: #### B MP, ADIFF, APTT, CBC, PRO, GFR, ANEU #### [address] [address] .GFRon 11-25-2022 GFR 92 ml/min/1.73sqm Normal [facility] ([place]) Comment on above: Result Comment: GFR Population [...] Performed By: #### G FR, BMP #### [address] [address] GFR Non- 76 ml/min/1.73sqm Normal [facility] ([place]) Comment on above: Result Comment: GFR Population [...] Performed By: #### G FR, BMP #### [address] [address] .NEUABSon 11-25-2022 Neutrophil, Absolute 2.6 10 3/mcL Low 2.9-6.2 [facility] ([place]) Comment on above: Performed By: #### B MP, ADIFF, APTT, CBC, PRO, GFR, ANEU #### [address] [address] APTTon 11-25-2022 aPTT Coag (Bld) [Time] 38.4 s High 25.0-35.0 [facility] ([place]) Comment on above: Result Comment: For Heparin anticoagulation therapy, the recommended therapeutic range is: 50.6-87.4 seconds. Patients on heparin therapy may have an extreme result. Performed By: #### Maddie PIERSON, BMP #### [address] [address] Heparin dose (APTT) Unknown Normal [facility] ([place]) Comment on above: Performed By: #### G , BMP #### [address] [address] BMPon 11-25-2022 BUN/Creatinine Ratio 14 ratio Normal 7-27 [facility] ([place]) Comment on above: Performed By: #### G , BMP #### [address] [address] Calcium [Mass/Vol] 8.9 mg/dL Normal 8.4-10.2 [facility] ([place]) Comment on above: Performed By: #### Maddie PIERSON, BMP #### [address] [address] Chloride [Moles/Vol] 111 mmol/L High 98-107 [facility] ([place]) Comment on above: Performed By: #### G , BMP #### [address] [address] CO2 [Moles/Vol] 22 mmol/L Normal 22-29 [facility] ([place]) Comment on above: Performed By: #### G , BMP #### [address] [address] Creatinine [Mass/Vol] 0.85 mg/dL Normal 0.55-1.02 [facility] ([place]) Comment on above: Performed By: #### G FR, BMP #### [address] [address] Electrolyte Balance 11.0 mEq/L Normal 4.0-15.0 [facility] ([place]) Comment on above: Performed By: #### G FR, BMP #### [address] [address] Glucose [Mass/Vol] 83 mg/dL Normal 70-105 [facility] ([place]) Comment on above: Performed By: #### G , BMP #### [address] [address] Potassium [Moles/Vol] 4.0 mmol/L Normal 3.5-5.1 [facility] ([place]) Comment on above: Performed By: #### G FR, BMP #### [address] [address] Sodium [Moles/Vol] 144 mmol/L Normal 136-145 [facility] ([place]) Comment on above: Performed By: #### G FR, BMP #### [address] [address] Urea nitrogen [Mass/Vol] 12 mg/dL Normal 7-18 [facility] ([place]) Comment on above: Performed By: #### G FR, BMP #### [address] [address] CBCon 11-25-2022 Erythrocyte distribution width (RBC) [Ratio] 13.7 % Normal 11.5-14.5 [facility] ([place]) Comment on above: Order Comment: Pre-A dmission Testing Performed By: #### B MP, ADIFF, APTT, CBC, PRO, GFR, ANEU #### [address] [address] Hematocrit (Bld) [Volume fraction] 38.9 % Normal 37.0-47.0 [facility] ([place]) Comment on above: Order Comment: Pre-A dmission Testing Performed By: #### B MP, ADIFF, APTT, CBC, PRO, GFR, ANEU #### [address] [address] Hgb 13.0 G/dL Normal 12.0-16.0 [facility] ([place]) Comment on above: Order Comment: Pre-A dmission Testing Performed By: #### B MP, ADIFF, APTT, CBC, PRO, GFR, ANEU #### [address] [address] MCH (RBC) [Entitic mass] 31.3 pg High 27.0-31.2 [facility] ([place]) Comment on above: Order Comment: Pre-A dmission Testing Performed By: #### B MP, ADIFF, APTT, CBC, PRO, GFR, ANEU #### [address] [address] MCHC 33.3 G/dL Normal 33.0-37.0 [facility] ([place]) Comment on above: Order Comment: Pre-A dmission Testing Performed By: #### B MP, ADIFF, APTT, CBC, PRO, GFR, ANEU #### [address] [address] MCV (RBC) [Entitic vol] 93.9 fL Normal 80.0-94.0 [facility] ([place]) Comment on above: Order Comment: Pre-A dmission Testing Performed By: #### B MP, ADIFF, APTT, CBC, PRO, GFR, ANEU #### [address] [address] Platelet 172 10 3/mcL Normal 130-400 [facility] ([place]) Comment on above: Order Comment: Pre-A dmission Testing Performed By: #### B MP, ADIFF, APTT, CBC, PRO, GFR, ANEU #### [address] [address] Platelet mean volume (Bld) [Entitic vol] 8.8 fL Normal 7.4-10.4 [facility] ([place]) Comment on above: Order Comment: Pre-A dmission Testing Performed By: #### B MP, ADIFF, APTT, CBC, PRO, GFR, ANEU #### [address] [address] RBC 4.14 10 6/mcL Low 4.20-5.40 [facility] ([place]) Comment on above: Order Comment: Pre-A dmission Testing Performed By: #### B MP, ADIFF, APTT, CBC, PRO, GFR, ANEU #### [address] [address] WBC 5.3 10 3/mcL Normal 4.6-10.8 [facility] ([place]) Comment on above: Order Comment: Pre-A dmission Testing Performed By: #### B MP, ADIFF, APTT, CBC, PRO, GFR, ANEU #### Augusto [address] [address] LABORATORYOrdered By: Kwabena Corbett on 11-25-2022 aPTT Coag (PPP) [Time] [...] Coag (PPP) [Time] 13.3 s Normal 9.1-14.2 [facility] ([place]) Comment on above: Performed By: #### G FR, BMP #### [address] [address] PT International Ratio 1.2 Normal [facility] ([place]) Comment on above: Result Comment: The [employer] (CHEST, 1992, [id number]) recommended therapeutic range for oral anticoagulant therapy is: LOW RISK: Prophylaxis of venous thrombosis INR: 2.0-3.0 Treatment of pulmonary embolism 2.0-3.0 Prevention of systemic embolism 2.0-3.0 HIGH RISK: Mechanical prosthetic valves 2.5-3.5 Performed By: #### G FR, BMP #### [address] [address] Coronavirus 2019on 0 COVID 19 Result PHARMACIST PER DIEM Normal Negative for COVID19 (SARS CoV2) by PCR. [facility] Comment on above: Result Comment: Nega tive for This test was developed and its performance characteristics determined by [facility] [place]. This test has been authorized by FDA under an Emergency Use Authorization (EUA). This test has been validated in accordance with the FDA's Guidance Document "Policy for Diagnostics Testing in Laboratories Certified to Perform High Complexity Testing under CLIA prior to Emergency use Authorization for Coronavirus Disease 2019 during the Public Health Emergency" issued on August 10, 2019. COVID19 (SARS This test was developed and its performance characteristics determined by [facility] [place]. This test has been authorized by FDA under an Emergency Use Authorization (EUA). This test has been validated in accordance with the FDA's Guidance Document "Policy for Diagnostics Testing in Laboratories Certified to Perform High Complexity Testing under CLIA prior to Emergency use Authorization for Coronavirus Disease 2019 during the Public Health Emergency" issued on August 10, 2019. CoV2) by PCR. This test was developed and its performance characteristics determined by [facility] [place]. This test has been authorized by FDA under an Emergency Use Authorization (EUA). This test has been validated in accordance with the FDA's Guidance Document "Policy for Diagnostics Testing in Laboratories Certified to Perform High Complexity Testing under CLIA prior to Emergency use Authorization for Coronavirus Disease 2019 during the Public Health Emergency" issued on August 10, 2019. Performed By: #### C OVID #### [facility] [address] [place], [place] [address] Coronavirus 2019on 0 COVID 19 Source PHARMACIST PER DIEM Normal [facility] Comment on above: Result Comment: Naso pharyngeal Corrected on 04/26 AT 0707: Previously reported as U Swab Corrected on 04/26 AT 0707: Previously reported as U Performed By: #### C OVID #### [facility] [address] [place] [address] GC/Chlamydia Amp, Uron 07-09 Chlamydia Amplif, Ur Normal [facility] Comment on above: Result Comment: Nega tive for For screening asymptomatic women, a vaginal swab specimen (APTIMA vaginal swab 576984) is optimal. Urine specimens have reduced sensitivity for Chlamydia trachomatis or Neisseria gonorrhoeae infection in female patients without symptoms. This test was developed and its performance characteristics determined by [facility] [place] ([facility]). It has not been cleared or approved by the FDA. [facility] is regulated under CLIA as qualified to perform high complexity testing. This test is used for clinical purposes. It should not be regarded as investigational or for research. Chlamydia For screening asymptomatic women, a vaginal swab specimen (APTIMA vaginal swab 035803) is optimal. Urine specimens have reduced sensitivity for Chlamydia trachomatis or Neisseria gonorrhoeae infection in female patients without symptoms. This test was developed and its performance characteristics determined by [facility] [place] ([facility]). It has not been cleared or approved by the FDA. [facility] is regulated under CLIA as qualified to perform high complexity testing. This test is used for clinical purposes. It should not be regarded as investigational or for research. trachomatis by For screening asymptomatic women, a vaginal swab specimen (APTIMA vaginal swab 253029) is optimal. Urine specimens have reduced sensitivity for Chlamydia trachomatis or Neisseria gonorrhoeae infection in female patients without symptoms. This test was developed and its performance characteristics determined by [facility] [place] ([facility]). It has not been cleared or approved by the FDA. [facility] is regulated under CLIA as qualified to perform high complexity testing. This test is used for clinical purposes. It should not be regarded as investigational or for research. amplification. For screening asymptomatic women, a vaginal swab specimen (APTIMA vaginal swab [id number]) is optimal. Urine specimens have reduced sensitivity for Chlamydia trachomatis or Neisseria gonorrhoeae infection in female patients without symptoms. This test was developed and its performance characteristics determined by [facility] [place] ([facility]). It has not been cleared or approved by the FDA. [facility] is regulated under CLIA as qualified to perform high complexity testing. This test is used for clinical purposes. It should not be regarded as investigational or for research. Performed By: #### U GCCT #### [facility] Routine Lab [address] [place], [place] [address] GC Amplification, Ur NGNEG Normal [facility] Comment on above: Performed By: #### U GCCT #### [facility] Lab [address] [place], [place] [address] Vital Signs Date Time Vital Sign Value Performing Clinician Facility 02-17-2025 12:42-0400 Body mass index (BMI) [Ratio] 34.95 kg/m2 Brian Sheldon MD Work Phone: [facility] 02-17-2025 12:42-0400 Body temperature 97.59 [degF] Brian Sheldon MD Work Phone: [facility] 02-17-2025 12:42-0400 Body weight 89.5 kg Brian Sheldon MD Work Phone: [facility] 02-17-2025 12:42-0400 Diastolic blood pressure 64 mm[Hg] Brian Sheldon MD Work Phone: [facility] 02-17-2025 12:42-0400 Heart rate 85 /min Brian Sheldon MD Work Phone: [facility] 02-17-2025 12:42-0400 Systolic blood pressure 110 mm[Hg] Brian Sheldon MD Work Phone: [facility] 01-30-2025 10:54-0400 Body temperature 97.9 [degF] Jarrod Acosta PA Work Phone: [facility] 01-30-2025 10:54-0400 Diastolic blood pressure 88 mm[Hg] Jarrodtaran Acosta PA Work Phone: [facility] 01-30-2025 10:54-0400 Heart rate 91 /min Jarrodtaran Acosta PA Work Phone: [facility] 01-30-2025 10:54-0400 Respiratory rate 16 /min Jarrodtaran Acosta PA Work Phone: [facility] 01-30-2025 10:54-0400 SaO2% (BldA) [Mass fraction] 98 % Jarrodtaran Acosta PA Work Phone: [facility] 01-30-2025 10:54-0400 Systolic blood pressure 110 mm[Hg] Jarrod Dave PA Work Phone: [facility] 01-30-2025 09:29-0400 Body height 160.02 cm Jarrod Dave PA Work Phone: [facility] 01-30-2025 09:29-0400 Body mass index (BMI) [Ratio] 35.5 kg/m2 Jarrod Dave PA Work Phone: [facility] 01-30-2025 09:29-0400 Body weight 91 kg Jarrodtaran Acosta PA Work Phone: [facility] 01-23-2025 03:58-0400 Body temperature 98.5 [degF] Jarrodtaran Acosta PA Work Phone: [facility] 01-23-2025 03:58-0400 Diastolic blood pressure 79 mm[Hg] Jarrod Dave PA Work Phone: [facility] 01-23-2025 03:58-0400 Heart rate 70 /min Jarrodtaran Acosta PA Work Phone: [facility] 01-23-2025 03:58-0400 Respiratory rate 18 /min Jarrod Dave PA Work Phone: [facility] 01-23-2025 03:58-0400 SaO2% (BldA) [Mass fraction] 99 % Jarrodtaran Acosta PA Work Phone: [facility] 01-23-2025 03:58-0400 Systolic blood pressure 126 mm[Hg] Jarrod Dave PA Work Phone: [facility] 01-23-2025 03:14-0400 Body height 160.02 cm Jarrod Dave PA Work Phone: [facility] 01-23-2025 03:14-0400 Body mass index (BMI) [Ratio] 35.9 kg/m2 Jarrod Dave PA Work Phone: [facility] 01-23-2025 03:14-0400 Body weight 91.9 kg Jarrod Dave PA Work Phone: [facility] 01-11-2025 14:33-0400 Body mass index (BMI) [Ratio] 35.34 kg/m2 Jay Moomaw PASTOR.TITLE ABSTRACTOR Work Phone: [facility] 01-11-2025 14:33-0400 Body temperature 97.39 [degF] Jay Moomaw PASTOR.TITLE ABSTRACTOR Work Phone: [facility] 01-11-2025 14:33-0400 Body weight 90.5 kg Jay Moomaw PASTOR.TITLE ABSTRACTOR Work Phone: [facility] 01-11-2025 14:33-0400 Diastolic blood pressure 78 mm[Hg] Jay Moomaw PASTOR.TITLE ABSTRACTOR Work Phone: [facility] 01-11-2025 14:33-0400 Heart rate 70 /min Jay Moomaw PASTOR.TITLE ABSTRACTOR Work Phone: [facility] 01-11-2025 14:33-0400 Respiratory rate 18 /min Jay Moomaw PASTOR.TITLE ABSTRACTOR Work Phone: [facility] 01-11-2025 14:33-0400 SaO2% (BldA) [Mass fraction] 99 % Jay Moomaw PASTOR.TITLE ABSTRACTOR Work Phone: [facility] 01-11-2025 14:33-0400 Systolic blood pressure 118 mm[Hg] Jay Moomaw PASTOR.TITLE ABSTRACTOR Work Phone: [facility] 01-02-2025 14:07-0400 Body mass index (BMI) [Ratio] 35.18 kg/m2 Pramod Jason PA-C Work Phone: [facility] 01-02-2025 14:07-0400 Body weight 90.08 kg Pramod Jason PA-C Work Phone: [facility] 01-02-2025 14:07-0400 Diastolic blood pressure 64 mm[Hg] Pramod Jason PA-C Work Phone: [facility] 01-02-2025 14:07-0400 Heart rate 79 /min Pramod Jason PA-C Work Phone: [facility] 01-02-2025 14:07-0400 Respiratory rate 17 /min Pramod Jason PA-C Work Phone: [facility] 01-02-2025 14:07-0400 SaO2% (BldA) [Mass fraction] 100 % Pramod Jason PA-C Work Phone: [facility] 01-02-2025 14:07-0400 Systolic blood pressure 110 mm[Hg] Pramod Jason PA-C Work Phone: [facility] 12-18-2024 14:12-0400 Body height 160 cm Nick Rachel MD Work Phone: [facility] 12-18-2024 14:12-0400 Body mass index (BMI) [Ratio] 34.54 kg/m2 Nick Rachel MD Work Phone: [facility] 12-18-2024 14:12-0400 Body weight 88.45 kg Nick Rachel MD Work Phone: [facility] 12-18-2024 14:12-0400 Diastolic blood pressure 68 mm[Hg] Nick Rachel MD Work Phone: [facility] 12-18-2024 14:12-0400 Heart rate 108 /min Nick Rachel MD Work Phone: [facility] 12-18-2024 14:12-0400 Systolic blood pressure 109 mm[Hg] Nick Rachel MD Work Phone: [facility] 11-14-2024 10:06-0400 Body height 157.5 cm Janet Fernandez PASTOR.TITLE ABSTRACTOR Work Phone: [facility] 11-14-2024 10:06-0400 Body mass index (BMI) [Ratio] 35.12 kg/m2 Janetbassem Fernandez PASTOR.TITLE ABSTRACTOR Work Phone: [facility] 11-14-2024 10:06-0400 Body weight 87.09 kg Janet Fernandez PASTOR.TITLE ABSTRACTOR Work Phone: [facility] 11-14-2024 10:06-0400 Diastolic blood pressure 67 mm[Hg] Janet Fernandez PASTOR.TITLE ABSTRACTOR Work Phone: [facility] 11-14-2024 10:06-0400 Heart rate 87 /min Janet Fernandez PASTOR.TITLE ABSTRACTOR Work Phone: [facility] 11-14-2024 10:06-0400 SaO2% (BldA) [Mass fraction] 99 % Janetbassem Fernandez PASTOR.TITLE ABSTRACTOR Work Phone: [facility] 11-14-2024 10:06-0400 Systolic blood pressure 112 mm[Hg] Janet Fernandez APRN.TITLE ABSTRACTOR Work Phone: [facility] 10-23-2024 15:40-0400 Body temperature 98 [degF] Neli Ungerer PHARMACIST PER DIEM-C Work Phone: [facility] 10-23-2024 15:40-0400 Diastolic blood pressure 73 mm[Hg] Neli Ungerer PHARMACIST PER DIEM-C Work Phone: [facility] 10-23-2024 15:40-0400 Heart rate 79 /min Neli Ungerer PHARMACIST PER DIEM-C Work Phone: [facility] 10-23-2024 15:40-0400 Respiratory rate 18 /min Neli Ungerer PHARMACIST PER DIEM-C Work Phone: [facility] 10-23-2024 15:40-0400 SaO2% (BldA) [Mass fraction] 100 % Neli Ungerer PHARMACIST PER DIEM-C Work Phone: [facility] 10-23-2024 15:40-0400 Systolic blood pressure 105 mm[Hg] Neli Ungerer PHARMACIST PER DIEM-C Work Phone: [facility] 10-23-2024 13:52-0400 Body mass index (BMI) [Ratio] 36 kg/m2 Neli Ungerer PHARMACIST PER DIEM-C Work Phone: [facility] 10-23-2024 11:49-0400 Body height 157.48 cm Neli Ungerer PHARMACIST PER DIEM-C Work Phone: [facility] 10-23-2024 11:49-0400 Body weight 89.4 kg Neli Ungerer PHARMACIST PER DIEM-C Work Phone: [facility] 10-22-2024 22:00-0400 Diastolic blood pressure 81 mm[Hg] Neli Ungerer PHARMACIST PER DIEM-C Work Phone: [facility] 10-22-2024 22:00-0400 Heart rate 67 /min Neli Ungerer PHARMACIST PER DIEM-C Work Phone: [facility] 10-22-2024 22:00-0400 Respiratory rate 15 /min Neli Ungerer PHARMACIST PER DIEM-C Work Phone: [facility] 10-22-2024 22:00-0400 SaO2% (BldA) [Mass fraction] 100 % Neli Ungerer PHARMACIST PER DIEM-C Work Phone: [facility] 10-22-2024 22:00-0400 Systolic blood pressure 123 mm[Hg] Neli Laloerer PHARMACIST PER DIEM-C Work Phone: [facility] 10-22-2024 20:55-0400 Body height 157.48 cm Neli Ungerer PHARMACIST PER DIEM-C Work Phone: [facility] 10-22-2024 20:55-0400 Body mass index (BMI) [Ratio] 37.4 kg/m2 Neli Ungerer PHARMACIST PER DIEM-C Work Phone: [facility] 10-22-2024 20:55-0400 Body temperature 98.2 [degF] Neli Ungerer PHARMACIST PER DIEM-C Work Phone: [facility] 10-22-2024 20:55-0400 Body weight 92.9 kg Neli Ungerer PHARMACIST PER DIEM-C Work Phone: [facility] 09-22-2024 16:49-0400 Body height 160.02 cm PHARMACIST PER DIEM. Neli Ungerer PHARMACIST PER DIEM-C Work Phone: [facility] 09-22-2024 16:49-0400 Body mass index (BMI) [Ratio] 34.2 kg/m2 PHARMACIST PER DIEM. Neli Ungerer PHARMACIST PER DIEM-C Work Phone: [facility] 09-22-2024 16:49-0400 Body temperature 98.1 [degF] PHARMACIST PER DIEM. Neli Ungerer PHARMACIST PER DIEM-C Work Phone: [facility] 09-22-2024 16:49-0400 Body weight 87.72 kg PHARMACIST PER DIEM. Neli Ungerer PHARMACIST PER DIEM-C Work Phone: [facility] 09-22-2024 16:49-0400 Diastolic blood pressure 80 mm[Hg] PHARMACIST PER DIEM. Neli Ungerer PHARMACIST PER DIEM-C Work Phone: [facility] 09-22-2024 16:49-0400 Heart rate 89 /min PHARMACIST PER DIEM. Neli Ungerer PHARMACIST PER DIEM-C Work Phone: [facility] 09-22-2024 16:49-0400 Respiratory rate 16 /min PHARMACIST PER DIEM. Neli Ungerer PHARMACIST PER DIEM-C Work Phone: [facility] 09-22-2024 16:49-0400 SaO2% (BldA) [Mass fraction] 98 % PHARMACIST PER DIEM. Neli Ungerer PHARMACIST PER DIEM-C Work Phone: [facility] 09-22-2024 16:49-0400 Systolic blood pressure 113 mm[Hg] PHARMACIST PER DIEM. Neli Ungerer PHARMACIST PER DIEM-C Work Phone: [facility] 09-07-2024 11:28-0400 Body mass index (BMI) [Ratio] 35.2 kg/m2 PHARMACIST PER DIEM. Neli Ungerer PHARMACIST PER DIEM-C Work Phone: [facility] 09-07-2024 11:28-0400 Body temperature 98.2 [degF] PHARMACIST PER DIEM. Neli Ungerer PHARMACIST PER DIEM-C Work Phone: [facility] 09-07-2024 11:28-0400 Body weight 90.03 kg PHARMACIST PER DIEM. Neli Ungerer PHARMACIST PER DIEM-C Work Phone: [facility] 09-07-2024 11:28-0400 Heart rate 92 /min PHARMACIST PER DIEM. Neli Ungerer PHARMACIST PER DIEM-C Work Phone: [facility] 09-07-2024 11:28-0400 Respiratory rate 16 /min PHARMACIST PER DIEM. Neli Ungerer PHARMACIST PER DIEM-C Work Phone: [facility] 09-07-2024 11:28-0400 SaO2% (BldA) [Mass fraction] 99 % PHARMACIST PER DIEM. Neli Mayerer PHARMACIST PER DIEM-C Work Phone: [facility] 08-23-2024 08:59-0400 Body temperature 97.8 [degF] PHARMACIST PER DIEM. Neli Mayerer PHARMACIST PER DIEM-C Work Phone: [facility] 08-23-2024 08:59-0400 Diastolic blood pressure 82 mm[Hg] PHARMACIST PER DIEM. Neli Laloerer PHARMACIST PER DIEM-C Work Phone: [facility] 08-23-2024 08:59-0400 Heart rate 73 /min PHARMACIST PER DIEM. Neli Ungerer PHARMACIST PER DIEM-C Work Phone: [facility] 08-23-2024 08:59-0400 SaO2% (BldA) [Mass fraction] 97 % PHARMACIST PER DIEM. Neli Mayerer PHARMACIST PER DIEM-C Work Phone: [facility] 08-23-2024 08:59-0400 Systolic blood pressure 120 mm[Hg] PHARMACIST PER DIEM. Neli Ungerer PHARMACIST PER DIEM-C Work Phone: [facility] 08-17-2024 17:30-0500 Body temperature 98 [degF] PHARMACIST PER DIEM. Neli Mayerer PHARMACIST PER DIEM-C Work Phone: [facility] 08-17-2024 17:30-0500 Diastolic blood pressure 65 mm[Hg] PHARMACIST PER DIEM. Neli Ungerer PHARMACIST PER DIEM-C Work Phone: [facility] 08-17-2024 17:30-0500 Heart rate 70 /min PHARMACIST PER DIEM. Neli Ungerer PHARMACIST PER DIEM-C Work Phone: [facility] 08-17-2024 17:30-0500 Respiratory rate 18 /min PHARMACIST PER DIEM. Neli Ungerer PHARMACIST PER DIEM-C Work Phone: [facility] 08-17-2024 17:30-0500 SaO2% (BldA) [Mass fraction] 100 % PHARMACIST PER DIEM. Neli Brittonr PHARMACIST PER DIEM-C Work Phone: [facility] 08-17-2024 17:30-0500 Systolic blood pressure 123 mm[Hg] PHARMACIST PER DIEM. Neli Mayerer PHARMACIST PER DIEM-C Work Phone: [facility] 08-17-2024 15:56-0500 Body height 160.02 cm PHARMACIST PER DIEM. Neli Mayerer PHARMACIST PER DIEM-C Work Phone: [facility] 08-17-2024 15:56-0500 Body mass index (BMI) [Ratio] 35.1 kg/m2 PHARMACIST PER DIEM. Neli Brittonr PHARMACIST PER DIEM-C Work Phone: [facility] 08-17-2024 15:56-0500 Body weight 89.9 kg PHARMACIST PER DIEM. Neli Mayerer PHARMACIST PER DIEM-C Work Phone: [facility] 07-29-2024 19:11-0500 Body mass index (BMI) [Ratio] 35.92 kg/m2 Jeovany Clutter PA-C Work Phone: [facility] 07-29-2024 19:11-0500 Body temperature 98.49 [degF] Jeovany Clutter PA-C Work Phone: [facility] 07-29-2024 19:11-0500 Body weight 91.99 kg Jeovany Clutter PA-C Work Phone: [facility] 07-29-2024 19:11-0500 Diastolic blood pressure 72 mm[Hg] Jeovany Clutter PA-C Work Phone: [facility] 07-29-2024 19:11-0500 Heart rate 90 /min Jeovany Clutter PA-C Work Phone: [facility] 07-29-2024 19:11-0500 Respiratory rate 16 /min Jeovany Clutter PA-C Work Phone: [facility] 07-29-2024 19:11-0500 SaO2% (BldA) [Mass fraction] 99 % Jeovany Clutter PA-C Work Phone: [facility] 07-29-2024 19:11-0500 Systolic blood pressure 110 mm[Hg] Jeovany Clutter PA-C Work Phone: [facility] 07-18-2024 14:03-0500 Body mass index (BMI) [Ratio] 35.93 kg/m2 Neli Redd PASTOR.TITLE ABSTRACTOR Work Phone: [facility] 07-18-2024 14:03-0500 Body temperature 99 [degF] Neli Redd PASTOR.TITLE ABSTRACTOR Work Phone: [facility] 07-18-2024 14:03-0500 Body weight 92 kg Neli Redd PASTOR.TITLE ABSTRACTOR Work Phone: [facility] 07-18-2024 14:03-0500 Diastolic blood pressure 70 mm[Hg] Neli Redd PASTOR.TITLE ABSTRACTOR Work Phone: [facility] 07-18-2024 14:03-0500 Heart rate 92 /min Neli Redd PASTOR.TITLE ABSTRACTOR Work Phone: [facility] 07-18-2024 14:03-0500 Respiratory rate 22 /min Neli Redd PASTOR.TITLE ABSTRACTOR Work Phone: [facility] 07-18-2024 14:03-0500 SaO2% (BldA) [Mass fraction] 100 % Neli Redd PASTOR.TITLE ABSTRACTOR Work Phone: [facility] 07-18-2024 14:03-0500 Systolic blood pressure 106 mm[Hg] Neli Redd PASTOR.TITLE ABSTRACTOR Work Phone: [facility] 06-26-2024 16:06-0500 Body mass index (BMI) [Ratio] 36.98 kg/m2 Jeovany Clutter PA-C Work Phone: [facility] 06-26-2024 16:06-0500 Body temperature 99.1 [degF] Jeovany Clutter PA-C Work Phone: [facility] 06-26-2024 16:06-0500 Body weight 94.7 kg Jeovany Clutter PA-C Work Phone: [facility] 06-26-2024 16:06-0500 Diastolic blood pressure 70 mm[Hg] Jeovany Clutter PA-C Work Phone: [facility] 06-26-2024 16:06-0500 Heart rate 88 /min Jeovany Clutter PA-C Work Phone: [facility] 06-26-2024 16:06-0500 Respiratory rate 21 /min Jeovany Clutter PA-C Work Phone: [facility] 06-26-2024 16:06-0500 SaO2% (BldA) [Mass fraction] 98 % Jeovany Clutter PA-C Work Phone: [facility] 06-26-2024 16:06-0500 Systolic blood pressure 100 mm[Hg] Jeovany Clutter PA-C Work Phone: [facility] 06-19-2024 11:45-0500 Body mass index (BMI) [Ratio] 37.2 kg/m2 PHARMACIST PER DIEM. Neli Ungerer PHARMACIST PER DIEM-C Work Phone: [facility] 06-19-2024 11:45-0500 Body temperature 98.3 [degF] PHARMACIST PER DIEM. Neli Ungerer PHARMACIST PER DIEM-C Work Phone: [facility] 06-19-2024 11:45-0500 Body weight 95.31 kg PHARMACIST PER DIEM. Neli Ungerer PHARMACIST PER DIEM-C Work Phone: [facility] 06-19-2024 11:45-0500 Diastolic blood pressure 80 mm[Hg] PHARMACIST PER DIEM. Neli Ungerer PHARMACIST PER DIEM-C Work Phone: [facility] 06-19-2024 11:45-0500 Heart rate 85 /min PHARMACIST PER DIEM. Neli Ungerer PHARMACIST PER DIEM-C Work Phone: [facility] 06-19-2024 11:45-0500 SaO2% (BldA) [Mass fraction] 98 % PHARMACIST PER DIEM. Neli Ungerer PHARMACIST PER DIEM-C Work Phone: [facility] 06-19-2024 11:45-0500 Systolic blood pressure 120 mm[Hg] VINOD. Neli Tripp PHARMACIST PER DIEM-C Work Phone: [facility] 05-31-2024 14:16-0500 Body mass index (BMI) [Ratio] 36.67 kg/m2 Paty Masci DO Work Phone: [facility] 05-31-2024 14:16-0500 Body temperature 98.8 [degF] Paty Masci DO Work Phone: [facility] 05-31-2024 14:16-0500 Body weight 93.89 kg Paty Masci DO Work Phone: [facility] 05-31-2024 14:16-0500 Diastolic blood pressure 76 mm[Hg] Paty Masci DO Work Phone: [facility] 05-31-2024 14:16-0500 Heart rate 94 /min Paty Masci DO Work Phone: [facility] 05-31-2024 14:16-0500 SaO2% (BldA) [Mass fraction] 99 % Paty Masci DO Work Phone: [facility] 05-31-2024 14:16-0500 Systolic blood pressure 110 mm[Hg] Paty Masci DO Work Phone: [facility] 05-24-2024 11:18-0500 Body mass index (BMI) [Ratio] 37.1 kg/m2 Les Mckeon APRN.TITLE ABSTRACTOR Work Phone: [facility] 05-24-2024 11:18-0500 Body temperature 98.1 [degF] Les Mckeon PASTOR.TITLE ABSTRACTOR Work Phone: [facility] 05-24-2024 11:18-0500 Body weight 95 kg Les Mckeon PASTOR.TITLE ABSTRACTOR Work Phone: [facility] 05-24-2024 11:18-0500 Diastolic blood pressure 78 mm[Hg] Les Mckeon PASTOR.TITLE ABSTRACTOR Work Phone: [facility] 05-24-2024 11:18-0500 Heart rate 74 /min Les Pendlebury PASTOR.TITLE ABSTRACTOR Work Phone: [facility] 05-24-2024 11:18-0500 Respiratory rate 16 /min Les Pendlebury PASTOR.TITLE ABSTRACTOR Work Phone: [facility] 05-24-2024 11:18-0500 SaO2% (BldA) [Mass fraction] 100 % Les Pendlebury PASTOR.TITLE ABSTRACTOR Work Phone: [facility] 05-24-2024 11:18-0500 Systolic blood pressure 115 mm[Hg] Les Pendlebury PASTOR.TITLE ABSTRACTOR Work Phone: [facility] 04-10-2024 19:37-0400 Body mass index (BMI) [Ratio] 37.69 kg/m2 Jay Moomaw PASTOR.TITLE ABSTRACTOR Work Phone: [facility] 04-10-2024 19:37-0400 Body temperature 98.91 [degF] Jay Moomaw PASTOR.TITLE ABSTRACTOR Work Phone: [facility] 04-10-2024 19:37-0400 Body weight 96.5 kg Jay Moomaw PASTOR.TITLE ABSTRACTOR Work Phone: [facility] 04-10-2024 19:37-0400 Diastolic blood pressure 77 mm[Hg] Jay Moomaw PASTOR.TITLE ABSTRACTOR Work Phone: [facility] 04-10-2024 19:37-0400 Heart rate 79 /min Jay Moomaw PASTOR.TITLE ABSTRACTOR Work Phone: [facility] 04-10-2024 19:37-0400 Respiratory rate 18 /min Jay Moomaw PASTOR.TITLE ABSTRACTOR Work Phone: [facility] 04-10-2024 19:37-0400 SaO2% (BldA) [Mass fraction] 100 % Jay Moomaw PASTOR.TITLE ABSTRACTOR Work Phone: [facility] 04-10-2024 19:37-0400 Systolic blood pressure 115 mm[Hg] Jay Moomaw PASTOR.TITLE ABSTRACTOR Work Phone: [facility] 03-28-2024 18:54-0400 Body mass index (BMI) [Ratio] 36.32 kg/m2 Neli Redd PASTOR.TITLE ABSTRACTOR Work Phone: [facility] 03-28-2024 18:54-0400 Body temperature 98.01 [degF] Neli Redd PASTOR.TITLE ABSTRACTOR Work Phone: [facility] 03-28-2024 18:54-0400 Body weight 93 kg Neli Redd PASTOR.TITLE ABSTRACTOR Work Phone: [facility] 03-28-2024 18:54-0400 Diastolic blood pressure 68 mm[Hg] Neli Redd PASTOR.TITLE ABSTRACTOR Work Phone: [facility] 03-28-2024 18:54-0400 Heart rate 76 /min Neli Redd PASTOR.TITLE ABSTRACTOR Work Phone: [facility] 03-28-2024 18:54-0400 SaO2% (BldA) [Mass fraction] 99 % Neli Redd PASTOR.TITLE ABSTRACTOR Work Phone: [facility] 03-28-2024 18:54-0400 Systolic blood pressure 101 mm[Hg] Neli Redd PASTOR.TITLE ABSTRACTOR Work Phone: [facility] 03-19-2024 09:11-0400 Body mass index (BMI) [Ratio] 36.48 kg/m2 Michelle Marvin PASTOR.TITLE ABSTRACTOR Work Phone: [facility] 03-19-2024 09:11-0400 Body temperature 98.29 [degF] Michelle Marvin PASTOR.TITLE ABSTRACTOR Work Phone: [facility] 03-19-2024 09:11-0400 Body weight 93.4 kg Michelle Marvin PASTOR.TITLE ABSTRACTOR Work Phone: [facility] 03-19-2024 09:11-0400 Diastolic blood pressure 64 mm[Hg] Michelle Marvin PASTOR.TITLE ABSTRACTOR Work Phone: [facility] 03-19-2024 09:11-0400 Heart rate 96 /min Michelle Marvin PASTOR.TITLE ABSTRACTOR Work Phone: [facility] 03-19-2024 09:11-0400 Respiratory rate 18 /min Michelle Marvin PASTOR.TITLE ABSTRACTOR Work Phone: [facility] 03-19-2024 09:11-0400 SaO2% (BldA) [Mass fraction] 98 % Michelle Marvin PASTOR.TITLE ABSTRACTOR Work Phone: [facility] 03-19-2024 09:11-0400 Systolic blood pressure 106 mm[Hg] Michelle Marvin PASTOR.TITLE ABSTRACTOR Work Phone: [facility] 02-28-2024 11:01-0400 Body height 160 cm Charline Wooten PASTOR.TITLE ABSTRACTOR Work Phone: [facility] 02-28-2024 11:01-0400 Body mass index (BMI) [Ratio] 35.25 kg/m2 Charline Spencerndprosper PASTOR.TITLE ABSTRACTOR Work Phone: [facility] 02-28-2024 11:01-0400 Body weight 90.27 kg Charlineraquel Spencerndprosper PASTOR.TITLE ABSTRACTOR Work Phone: [facility] 02-28-2024 11:01-0400 Diastolic blood pressure 73 mm[Hg] Charline Spencernder PASTOR.TITLE ABSTRACTOR Work Phone: [facility] 02-28-2024 11:01-0400 Heart rate 84 /min Charline Spencernder PASTOR.TITLE ABSTRACTOR Work Phone: [facility] 02-28-2024 11:01-0400 Systolic blood pressure 110 mm[Hg] Charline Hollaender PASTOR.TITLE ABSTRACTOR Work Phone: [facility] 11-14-2023 13:45-0400 Body height 160 cm Paty Arciniega DO Work Phone: [facility] 11-14-2023 13:45-0400 Body mass index (BMI) [Ratio] 34.37 kg/m2 Paty Masci DO Work Phone: [facility] 11-14-2023 13:45-0400 Body temperature 97.59 [degF] Paty Schwartzi DO Work Phone: [facility] 11-14-2023 13:45-0400 Body weight 88 kg Paty Schwartzi DO Work Phone: [facility] 11-14-2023 13:45-0400 Diastolic blood pressure 67 mm[Hg] Paty Schwartzi DO Work Phone: [facility] 11-14-2023 13:45-0400 Heart rate 92 /min Paty Schwartzi DO Work Phone: [facility] 11-14-2023 13:45-0400 SaO2% (BldA) [Mass fraction] 98 % Paty Schwartzi DO Work Phone: [facility] 11-14-2023 13:45-0400 Systolic blood pressure 104 mm[Hg] Paty Arciniega DO Work Phone: [facility] 10-25-2023 09:41-0400 Body height 160 cm Elizabeth Marques MD Work Phone: [facility] 10-25-2023 09:41-0400 Body mass index (BMI) [Ratio] 35.43 kg/m2 Elizabeth Marques MD Work Phone: [facility] 10-25-2023 09:41-0400 Body weight 90.72 kg Elizabeth Marques MD Work Phone: [facility] 10-25-2023 09:41-0400 Diastolic blood pressure 73 mm[Hg] Elizabeth Marques MD Work Phone: [facility] 10-25-2023 09:41-0400 Heart rate 85 /min Elizabeth Marques MD Work Phone: [facility] 10-25-2023 09:41-0400 Systolic blood pressure 109 mm[Hg] Elizabeth Marques MD Work Phone: [facility] 09-14-2023 11:33-0400 Body height 160 cm Janet Klaus PASTOR.TITLE ABSTRACTOR Work Phone: [facility] 09-14-2023 11:33-0400 Body weight 90.72 kg Janet Chiuen PASTOR.TITLE ABSTRACTOR Work Phone: [facility] 09-14-2023 11:33-0400 Diastolic blood pressure 68 mm[Hg] Janet Chiuen PASTOR.TITLE ABSTRACTOR Work Phone: [facility] 09-14-2023 11:33-0400 Heart rate 90 /min Janetbassem Dodgehausen PASTOR.TITLE ABSTRACTOR Work Phone: [facility] 09-14-2023 11:33-0400 SaO2% (BldA) [Mass fraction] 98 % Janet Chiujohn PASTOR.TITLE ABSTRACTOR Work Phone: [facility] 09-14-2023 11:33-0400 Systolic blood pressure 110 mm[Hg] Janet Chiujohn PASTOR.TITLE ABSTRACTOR Work Phone: [facility] 08-30-2023 14:47-0400 Body temperature 97.8 [degF] PHARMACIST PER DIEM. Neli Ungerer Work Phone: [facility] 08-30-2023 14:47-0400 Diastolic blood pressure 62 mm[Hg] PHARMACIST PER DIEM. Neli Ungerer Work Phone: [facility] 08-30-2023 14:47-0400 Heart rate 65 /min PHARMACIST PER DIEM. Neli Ungerer Work Phone: [facility] 08-30-2023 14:47-0400 Respiratory rate 16 /min PHARMACIST PER DIEM. Neli Ungerer Work Phone: [facility] 08-30-2023 14:47-0400 SaO2% (BldA) [Mass fraction] 99 % PHARMACIST PER DIEM. Neli Ungerer Work Phone: [facility] 08-30-2023 14:47-0400 Systolic blood pressure 93 mm[Hg] PHARMACIST PER DIEM. Neli Ungerer Work Phone: [facility] 08-30-2023 14:34-0400 Body mass index (BMI) [Ratio] 35.1 kg/m2 PHARMACIST PER DIEM. Neli Ungerer Work Phone: [facility] 08-30-2023 13:44-0400 Body height 160.02 cm PHARMACIST PER DIEM. Neli Ungerer Work Phone: [facility] 08-30-2023 13:44-0400 Body weight 90 kg PHARMACIST PER DIEM. Neli Ungerer Work Phone: [facility] 08-30-2023 00:18-0400 Body temperature 97.6 [degF] PHARMACIST PER DIEM. Neli Ungerer Work Phone: [facility] 08-30-2023 00:18-0400 Diastolic blood pressure 64 mm[Hg] PHARMACIST PER DIEM. Neli Ungerer Work Phone: [facility] 08-30-2023 00:18-0400 Heart rate 62 /min PHARMACIST PER DIEM. Neli Ungerer Work Phone: [facility] 08-30-2023 00:18-0400 Respiratory rate 19 /min PHARMACIST PER DIEM. Neli Ungerer Work Phone: [facility] 08-30-2023 00:18-0400 SaO2% (BldA) [Mass fraction] 98 % PHARMACIST PER DIEM. Neli Ungerer Work Phone: [facility] 08-30-2023 00:18-0400 Systolic blood pressure 106 mm[Hg] PHARMACIST PER DIEM. Neli Ungerer Work Phone: [facility] 08-29-2023 22:16-0400 Body height 160.02 cm PHARMACIST PER DIEM. Neli Ungerer Work Phone: [facility] 08-29-2023 22:16-0400 Body mass index (BMI) [Ratio] 36.1 kg/m2 PHARMACIST PER DIEM. Neli Ungerer Work Phone: [facility] 08-29-2023 22:16-0400 Body weight 92.4 kg PHARMACIST PER DIEM. Neli Ungerer Work Phone: [facility] 07-27-2023 15:34-0500 Body mass index (BMI) [Ratio] 35.4 kg/m2 PHARMACIST PER DIEM. Neli Ungerer Work Phone: [facility] 07-27-2023 15:34-0500 Body temperature 98.4 [degF] PHARMACIST PER DIEM. Neli Ungerer Work Phone: [facility] 07-27-2023 15:34-0500 Body weight 90.71 kg PHARMACIST PER DIEM. Neli Ungerer Work Phone: [facility] 07-27-2023 15:34-0500 Diastolic blood pressure 78 mm[Hg] PHARMACIST PER DIEM. Neli Ungerer Work Phone: [facility] 07-27-2023 15:34-0500 Heart rate 114 /min PHARMACIST PER DIEM. Neli Ungerer Work Phone: [facility] 07-27-2023 15:34-0500 Respiratory rate 16 /min PHARMACIST PER DIEM. Neli Ungerer Work Phone: [facility] 07-27-2023 15:34-0500 SaO2% (BldA) [Mass fraction] 98 % PHARMACIST PER DIEM. Neli Ungerer Work Phone: [facility] 07-27-2023 15:34-0500 Systolic blood pressure 122 mm[Hg] PHARMACIST PER DIEM. Neli Ungerer Work Phone: [facility] 07-18-2023 21:35-0500 Body height 157.48 cm PHARMACIST PER DIEM. Neli Ungerer Work Phone: [facility] 07-18-2023 21:35-0500 Body mass index (BMI) [Ratio] 37.8 kg/m2 PHARMACIST PER DIEM. Neli Ungerer Work Phone: [facility] 07-18-2023 21:35-0500 Body temperature 96.4 [degF] PHARMACIST PER DIEM. Neli Ungerer Work Phone: [facility] 07-18-2023 21:35-0500 Body weight 93.89 kg PHARMACIST PER DIEM. Neli Ungerer Work Phone: [facility] 07-18-2023 21:35-0500 Diastolic blood pressure 71 mm[Hg] PHARMACIST PER DIEM. Neli Ungerer Work Phone: [facility] 07-18-2023 21:35-0500 Heart rate 76 /min PHARMACIST PER DIEM. Neli Ungerer Work Phone: [facility] 07-18-2023 21:35-0500 Respiratory rate 18 /min PHARMACIST PER DIEM. Neli Ungerer Work Phone: [facility] 07-18-2023 21:35-0500 SaO2% (BldA) [Mass fraction] 100 % PHARMACIST PER DIEM. Neli Ungerer Work Phone: [facility] 07-18-2023 21:35-0500 Systolic blood pressure 127 mm[Hg] PHARMACIST PER DIEM. Neli Ungerer Work Phone: [facility] 07-16-2023 12:43-0500 Body temperature 99.6 [degF] PHARMACIST PER DIEM. Neli Ungerer Work Phone: [facility] 07-16-2023 12:43-0500 Diastolic blood pressure 74 mm[Hg] PHARMACIST PER DIEM. Neli Ungerer Work Phone: [facility] 07-16-2023 12:43-0500 Heart rate 97 /min PHARMACIST PER DIEM. Neli Ungerer Work Phone: [facility] 07-16-2023 12:43-0500 Respiratory rate 12 /min PHARMACIST PER DIEM. Neli Ungerer Work Phone: [facility] 07-16-2023 12:43-0500 SaO2% (BldA) [Mass fraction] 97 % PHARMACIST PER DIEM. Neli Ungerer Work Phone: [facility] 07-16-2023 12:43-0500 Systolic blood pressure 110 mm[Hg] PHARMACIST PER DIEM. Neli Ungerer Work Phone: [facility] 06-02-2023 11:53-0500 Body mass index (BMI) [Ratio] 37.8 kg/m2 PHARMACIST PER DIEM. Neli Ungerer Work Phone: [facility] 06-02-2023 11:53-0500 Body temperature 99.4 [degF] PHARMACIST PER DIEM. Neli Ungerer Work Phone: [facility] 06-02-2023 11:53-0500 Body weight 93.89 kg PHARMACIST PER DIEM. Neli Ungerer Work Phone: [facility] 06-02-2023 11:53-0500 Diastolic blood pressure 64 mm[Hg] PHARMACIST PER DIEM. Neli Ungerer Work Phone: [facility] 06-02-2023 11:53-0500 Heart rate 86 /min PHARMACIST PER DIEM. Neli Ungerer Work Phone: [facility] 06-02-2023 11:53-0500 Respiratory rate 16 /min PHARMACIST PER DIEM. Neli Ungerer Work Phone: [facility] 06-02-2023 11:53-0500 SaO2% (BldA) [Mass fraction] 98 % PHARMACIST PER DIEM. Neli Ungerer Work Phone: [facility] 06-02-2023 11:53-0500 Systolic blood pressure 102 mm[Hg] PHARMACIST PER DIEM. Neli Ungerer Work Phone: [facility] 05-22-2023 15:06-0500 Body temperature 98.7 [degF] PHARMACIST PER DIEM. Neli Ungerer Work Phone: [facility] 05-22-2023 15:06-0500 Diastolic blood pressure 77 mm[Hg] PHARMACIST PER DIEM. Neli Ungerer Work Phone: [facility] 05-22-2023 15:06-0500 Heart rate 91 /min PHARMACIST PER DIEM. Neli Ungerer Work Phone: [facility] 05-22-2023 15:06-0500 Respiratory rate 12 /min PHARMACIST PER DIEM. Neli Ungerer Work Phone: [facility] 05-22-2023 15:06-0500 SaO2% (BldA) [Mass fraction] 96 % PHARMACIST PER DIEM. Neli Ungerer Work Phone: [facility] 05-22-2023 15:06-0500 Systolic blood pressure 109 mm[Hg] PHARMACIST PER DIEM. Neli Ungerer Work Phone: [facility] 04-29-2023 21:05-0500 Body height 160.02 cm PHARMACIST PER DIEM. Neli Ungerer Work Phone: [facility] 04-29-2023 21:05-0500 Body mass index (BMI) [Ratio] 38.9 kg/m2 PHARMACIST PER DIEM. Neli Ungerer Work Phone: [facility] 04-29-2023 21:05-0500 Body temperature 96.3 [degF] PHARMACIST PER DIEM. Neli Ungerer Work Phone: [facility] 04-29-2023 21:05-0500 Body weight 99.6 kg PHARMACIST PER DIEM. Neli Ungerer Work Phone: [facility] 04-29-2023 21:05-0500 Diastolic blood pressure 62 mm[Hg] PHARMACIST PER DIEM. Neli Ungerer Work Phone: [facility] 04-29-2023 21:05-0500 Heart rate 69 /min PHARMACIST PER DIEM. Neli Ungerer Work Phone: [facility] 04-29-2023 21:05-0500 Respiratory rate 14 /min PHARMACIST PER DIEM. Neli Ungerer Work Phone: [facility] 04-29-2023 21:05-0500 SaO2% (BldA) [Mass fraction] 99 % PHARMACIST PER DIEM. Neli Ungerer Work Phone: [facility] 04-29-2023 21:05-0500 Systolic blood pressure 127 mm[Hg] PHARMACIST PER DIEM. Neli Ungerer Work Phone: [facility] 04-25-2023 09:54-0500 Body temperature 98.4 [degF] PHARMACIST PER DIEM. Neli Ungerer Work Phone: [facility] 04-25-2023 09:54-0500 Diastolic blood pressure 74 mm[Hg] PHARMACIST PER DIEM. Neli Ungerer Work Phone: [facility] 04-25-2023 09:54-0500 Heart rate 99 /min PHARMACIST PER DIEM. Neli Ungerer Work Phone: [facility] 04-25-2023 09:54-0500 Respiratory rate 12 /min PHARMACIST PER DIEM. Neli Ungerer Work Phone: [facility] 04-25-2023 09:54-0500 SaO2% (BldA) [Mass fraction] 97 % PHARMACIST PER DIEM. Neli Ungerer Work Phone: [facility] 04-25-2023 09:54-0500 Systolic blood pressure 118 mm[Hg] PHARMACIST PER DIEM. Neli Ungerer Work Phone: [facility] 03-16-2023 13:38-0400 Body temperature 97.4 [degF] PHARMACIST PER DIEM. Neli Ungerer Work Phone: [facility] 03-16-2023 13:38-0400 Diastolic blood pressure 73 mm[Hg] PHARMACIST PER DIEM. Neli Ungerer Work Phone: [facility] 03-16-2023 13:38-0400 Heart rate 94 /min PHARMACIST PER DIEM. Neli Ungerer Work Phone: [facility] 03-16-2023 13:38-0400 Respiratory rate 18 /min PHARMACIST PER DIEM. Neli Ungerer Work Phone: [facility] 03-16-2023 13:38-0400 SaO2% (BldA) [Mass fraction] 97 % PHARMACIST PER DIEM. Neli Brittonr Work Phone: [facility] 03-16-2023 13:38-0400 Systolic blood pressure 103 mm[Hg] PHARMACIST PER DIEM. Neli Brittonr Work Phone: [facility] 03-16-2023 12:46-0400 Body mass index (BMI) [Ratio] 35.1 kg/m2 PHARMACIST PER DIEM. Neli Brittonr Work Phone: [facility] 03-16-2023 10:47-0400 Body weight 90 kg PHARMACIST PER DIEM. Neli Brittonr Work Phone: [facility] 03-15-2023 22:15-0400 Diastolic blood pressure 65 mm[Hg] [facility] 03-15-2023 22:15-0400 Heart rate 67 /min [facility] 03-15-2023 22:15-0400 Respiratory rate 15 /min [facility] 03-15-2023 22:15-0400 SaO2% (BldA) [Mass fraction] 98 % [facility] 03-15-2023 22:15-0400 Systolic blood pressure 135 mm[Hg] [facility] 03-15-2023 21:53-0400 Body temperature 98 [degF] [facility] 03-15-2023 20:02-0400 Body mass index (BMI) [Ratio] 38.9 kg/m2 [facility] 03-15-2023 20:02-0400 Body weight 99.9 kg [facility] 03-15-2023 19:57-0400 Body height 160.02 cm [facility] 12-08-2022 11:36-0400 Body temperature 98.42 [degF] LES MICHEL DO [facility] 12-08-2022 11:36-0400 Diastolic Blood Pressure Non-Invasive 91 1 LES MICHEL DO [facility] 12-08-2022 11:36-0400 Heart rate 91 /min LES MICHEL DO [facility] 12-08-2022 11:36-0400 Respiratory rate 18 /min LES MICHEL DO [facility] 12-08-2022 11:36-0400 Systolic Blood Pressure Non-Invasive 138 1 LES MICHEL DO [facility] 12-08-2022 07:11-0400 Body temperature 98.24 [degF] LES MICHEL DO [facility] 12-08-2022 07:11-0400 Diastolic Blood Pressure Non-Invasive 85 1 LES MICHEL DO [facility] 12-08-2022 07:11-0400 Heart rate 86 /min LES MICHEL DO [facility] 12-08-2022 07:11-0400 Respiratory rate 18 /min LES MICHEL DO [facility] 12-08-2022 07:11-0400 Systolic Blood Pressure Non-Invasive 126 1 LES MICHEL DO [facility] 12-08-2022 03:36-0400 Body temperature 98.96 [degF] LES MICHEL DO [facility] 12-08-2022 03:36-0400 Diastolic Blood Pressure Non-Invasive 87 1 LES MICHEL DO [facility] 12-08-2022 03:36-0400 Heart rate 90 /min LES MICHEL DO [facility] 12-08-2022 03:36-0400 Respiratory rate 20 /min LES MICHEL DO [facility] 12-08-2022 03:36-0400 Systolic Blood Pressure Non-Invasive 130 1 LES MICHEL DO [facility] 12-07-2022 23:00-0400 Heart rate 76 /min LES MICHEL DO [facility] 12-07-2022 19:28-0400 Heart rate 81 /min LES MICHEL DO [facility] 12-07-2022 14:56-0400 Body height 160 cm LES MICHEL DO [facility] 12-07-2022 14:56-0400 Body weight 101 kg LES MICHEL DO [facility] 12-07-2022 14:56-0400 Body weight 39.45 kg/m2 LES MICHEL DO [facility] 12-07-2022 14:17-0400 Heart rate 74 /min LES MICHEL DO [facility] 12-07-2022 10:45-0400 Body temperature 97.16 [degF] LES MICHEL DO [facility] 12-07-2022 10:40-0400 Respiratory Rate - Anes 0 br/min LES MICHEL DO [facility] 12-07-2022 10:35-0400 Respiratory Rate - Anes 18 br/min LES MICHEL DO [facility] 12-07-2022 10:30-0400 Respiratory Rate - Anes 16 br/min LES MICHEL DO [facility] 12-07-2022 06:50-0400 Body height 160 cm LES MICHEL DO [facility] 12-07-2022 06:50-0400 Body temperature 97.16 [degF] LES MICHEL DO [facility] 12-07-2022 06:50-0400 Body weight 101 kg LES MICHEL DO [facility] 12-07-2022 06:50-0400 Heart rate 72 /min LES MICHEL DO [facility] 11-25-2022 13:22-0400 Blood Pressure Location LES MICHEL DO [facility] 11-25-2022 13:22-0400 Body height 160 cm LES MICHEL DO [facility] 11-25-2022 13:22-0400 Body weight 100.7 kg LES MICHEL DO [facility] 11-25-2022 13:22-0400 Body weight 39.34 kg/m2 LES MICHEL DO [facility] 11-25-2022 13:22-0400 Diastolic Blood Pressure Non-Invasive 68 1 LES MICHEL DO [facility] 11-25-2022 13:22-0400 Heart rate 97 /min LES MICHEL DO [facility] 11-25-2022 13:22-0400 Respiratory rate 20 /min LES MICHEL DO [facility] 11-25-2022 13:22-0400 Systolic Blood Pressure Non-Invasive 106 1 LES MICHEL DO [facility] 05-06-2022 23:22-0500 Body height 160.[address] Loretta Hermosillo Work Phone: [facility] Work Phone: 05-06-2022 23:22-0500 Body mass index (BMI) [Ratio] 36.3 kg/m2 Dr. Loretta Hermosillo Work Phone: [facility] Work Phone: 05-06-2022 23:22-0500 Body temperature 96.3 [degF] Dr. Loretta Hermosillo Work Phone: [facility] Work Phone: 05-06-2022 23:22-0500 Body weight 92.[address] Loretta Hermosillo Work Phone: [facility] Work Phone: 05-06-2022 23:22-0500 Diastolic blood pressure 80 mm[Hg] Dr. Loretta Hermosillo Work Phone: [facility] Work Phone: 05-06-2022 23:22-0500 Heart rate 85 /min Dr. Loretta Hermosillo Work Phone: [facility] Work Phone: 05-06-2022 23:22-0500 Respiratory rate 16 /min Dr. Loretta Hermosillo Work Phone: [facility] Work Phone: 05-06-2022 23:22-0500 SaO2% (BldA) [Mass fraction] 98 % Dr. Loretta Hermosillo Work Phone: [facility] Work Phone: 05-06-2022 23:22-0500 Systolic blood pressure 113 mm[Hg] Dr. 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); Positive ALFONZO (antinuclear antibody); Antiphospholipid syndrome (HCC); Hypermobility syndrome; Fibromyalgia; Irritable bowel syndrome with constipation; Chronic interstitial cystitis Start: 02-17-2025 End: 02-17-2025 ambulatory [facility] Facility:[facility] Start: 01-31-2025 ambulatory [facility] Facili ty:[facility] Start: 01-31-2025 End: 01-31-2025 Subsequent hospital visit by physician Mri Radio [facility] (I-Stat/1.5t) Work Phone: Radiology Comment on above: Pain in joint, multi ple sites [M25.50] Start: 01-30-2025 End: 01-30-2025 Emergency department patient visit Jarrod ROSADO Work Phone: -Emergency Department Work Phone: Start: 01-23-2025 End: 01-23-2025 Emergency department patient visit Jarrod ROSADO Work Phone: -Emergency Department Work Phone: Start: 01-15-2025 End: 01-20-2025 Refill Antwon Escobedo PA-C Work Phone: Neurology Comment on above: Refill Request Start: 01-11-2025 End: 01-11-2025 Subsequent hospital visit by physician Xr [facility] Work Phone: Radiology Comment on above: Acute right ankle pa in [M25.571] Start: 01-11-2025 End: 01-11-2025 Patient encounter procedure Jay Delgado MICHAEL Work Phone: [facility] Comment on above: Acute right ankle pa in (Primary Dx) Start: 01-11-2025 End: 01-11-2025 ambulatory JAY DELGADO Facility:[facility] Start: 01-08-2025 End: 01-08-2025 Telephone encounter Antwon Calderon MD Work Phone: Dermatology Start: 01-02-2025 End: 01-02-2025 Subsequent hospital visit by physician Rafael [facility] Work Phone: Radiology Comment on above: Pain in joint, multi ple sites [M25.50] Start: 01-02-2025 End: 01-02-2025 ambulatory [facility] Facility:[facility] Start: 01-02-2025 End: 01-02-2025 Patient encounter [...] nonspecific skin eruption Start: 01-02-2025 End: 01-02-2025 [facility] Facility:[facility] Start: 01-01-2025 End: 01-01-2025 Telemedicine consultation with patient Nick Rachel MD Work Phone: [facility] Start: 01-01-2025 End: 01-01-2025 ambulatory Nick Rachel MD Work Phone: [facility] Comment on above: Abnormal finding on MRI of brain (Primary Dx) Start: 12-30-2024 End: 12-30-2024 ambulatory [facility] Facility:[facility] Start: 12-30-2024 End: 12-30-2024 Subsequent hospital visit by physician Mri Radio [facility] (I-Stat/1.5t) Work Phone: Radiology Start: 12-26-2024 End: 12-26-2024 ambulatory [facility] Start: 12-26-2024 Encounter for gynecological examination (general) (routine) without abnormal findings [facility] Start: 12-18-2024 End: 12-18-2024 Patient encounter procedure Nick Rachel MD Work Phone: [facility] Comment on above: White matter abnorma lity on MRI of brain (Primary Dx); Facial numbness; Facial weakness; Sensory deficit, right Start: 12-18-2024 End: 12-18-2024 ambulatory NELI TRIPP Facility:[facility] Start: 12-05-2024 End: 12-05-2024 E-mail encounter from caregiver Pramod Gomez PA-C Work Phone: Rheumatology Start: 12-05-2024 End: 12-05-2024 Patient encounter procedure Pramod Gomez PA-C Work Phone: Rheumatology Comment on above: Upcoming Rheumatolog y Appointment Start: 12-03-2024 End: 12-05-2024 ambulatory Janet Fernandez APRN.CNP Work Phone: Neurology Comment on above: MRI results Start: 11-14-2024 End: 11-14-2024 Patient encounter procedure Janet Fernandez APRN.CNP Work Phone: Neurology Comment on above: Abnormal finding on MRI of brain (Primary Dx); Facial weakness; Facial numbness; Speech disturbance, unspecified type; Migraine without aura and without status migrainosus, not intractable; History of TIA (transient ischemic attack) Start: 11-14-2024 End: 11-14-2024 ambulatory NELI TRIPP Facility:[facility] Start: 10-25-2024 End: 10-25-2024 ambulatory Antwon Escobedo PA-C Work Phone: Neurology Comment on above: Chronic migraine wit hout aura with status migrainosus, not intractable (Primary Dx) Start: 10-25-2024 End: 10-25-2024 Telemedicine consultation with patient Antwon Escobedo PA-C Work Phone: Neurology Start: 10-23-2024 Non-patient / Non-visit Dr. Taye Delvalle MD -[facility] Work Phone: Start: 10-23-2024 ambulatory No Primary Car e Physician Facility:[facility] Start: 10-23-2024 Non-patient / Non-visit [facility] Start: 10-22-2024 End: 10-23-2024 ambulatory No Primary Care Physician Facility:[facility] Start: 10-22-2024 End: 10-23-2024 Evaluation and management of inpatient Dr. Farhana Harden DO -Progressive Care Unit Work Phone: Start: 10-22-2024 End: 10-23-2024 observation encounter Neli HALL Work Phone: [facility] Work Phone: Start: 10-15-2024 End: 10-15-2024 Telephone encounter Kirby Monge MD Work Phone: Neurology Comment on above: Medication Authoriza tion Start: 10-14-2024 End: 10-14-2024 ambulatory No Primary Care Physician Facility:[facility] Start: 10-14-2024 Registered Recurring Jarrod ROSADO -Physical Therapy Work Phone: Start: 09-22-2024 End: 09-22-2024 Emergency department patient visit PHARMACIST PER DIEM. Neli Tripp NP-C Work Phone: -Emergency Department Work Phone: Start: 09-20-2024 Registered Recurring Jarrod ROSADO -Physical Therapy Work Phone: Start: 09-14-2024 End: 09-16-2024 Refill Kirby Monge MD Work Phone: Neurology Comment on above: Refill Request Start: 09-07-2024 End: 09-07-2024 Patient encounter procedure Katheryn [place] PHARMACIST PER DIEM-C [facility] Work Phone: Start: 09-07-2024 End: 09-07-2024 ambulatory Neli Tripp Facility:[facility] Start: 08-28-2024 End: 08-28-2024 ambulatory CHARLINE BARRYPAULADORENEPROSPER Facility:[facility] Start: 08-23-2024 End: 08-23-2024 Patient encounter procedure Jarrod Dave PA -[facility] Work Phone: Start: 08-23-2024 End: 08-23-2024 ambulatory Neli Tripp Facility:[facility] Start: 08-17-2024 End: 08-17-2024 Emergency department patient visit PHARMACIST PER DIEMSandra Tripp PHARMACIST PER DIEM-C Work Phone: -Emergency Department Work Phone: Start: 07-29-2024 End: 07-29-2024 Subsequent hospital visit by physician Rafael [facility] Work Phone: Radiology Comment on above: Right wrist pain [M2 5.531] Start: 07-29-2024 End: 07-29-2024 Office outpatient visit 25 minutes Jeovany Joseph PA-C Work Phone: [facility] Comment on above: Right wrist pain (Pr imary Dx) Start: 07-29-2024 End: 07-29-2024 ambulatory JEOVANY CLUTTER Facility:[facility] Start: 07-18-2024 End: 07-18-2024 Subsequent hospital visit by physician Rafael [facility] Work Phone: Radiology Comment on above: URI, acute [J06.9] Start: 07-18-2024 End: 07-18-2024 ambulatory NELI MAYERER Facility:[facility] Start: 07-18-2024 End: 07-18-2024 Patient encounter procedure Neli Redd APRN.TITLE ABSTRACTOR Work Phone: [facility] Comment on above: URI, acute (Primary Dx); Acute cough Start: 07-18-2024 End: 07-18-2024 Telephone encounter Neli Redd APRN.TITLE ABSTRACTOR Work Phone: [facility] Comment on above: Results Start: 07-14-2024 End: 07-15-2024 Telephone encounter Paty Arciniega DO Work Phone: Hematology/Oncology Comment on above: Results Start: 06-27-2024 End: 06-27-2024 Telephone encounter Les Mckeon APRN.TITLE ABSTRACTOR Work Phone: [facility] Comment on above: Results Start: 06-26-2024 End: 06-26-2024 ambulatory NELI D UNGERER Facility:[facility] Start: 06-26-2024 End: 06-26-2024 Office outpatient new 30 minutes Jeovany Joseph PA-C Work Phone: [facility] Comment on above: COVID-19 virus infec tion (Primary Dx) Start: 06-21-2024 End: 06-21-2024 ambulatory NELI D UNGERER Facility:[facility] Start: 06-19-2024 End: 06-19-2024 Patient encounter procedure [facility] Work Phone: Start: 06-19-2024 End: 06-19-2024 ambulatory Neli Ungerer Facility[facility] Start: 06-12-2024 End: 06-13-2024 Telephone encounter Paty Arciniega DO Work Phone: Hematology/Oncology Comment on above: Results Start: 05-31-2024 End: 05-31-2024 Visit (SP) Office Paty Arciniega DO Work Phone: Hematology/Oncology Comment on above: History of DVT of lo wer extremity (Primary Dx); Factor V Leiden (HCC); Lupus anticoagulant disorder (HCC) Start: 05-24-2024 End: 05-24-2024 Subsequent hospital visit by physician Rafael [facility] Work Phone: Radiology Comment on above: Injury of right shou lder, initial encounter [S49.91XA] Start: 05-24-2024 End: 05-24-2024 ambulatory NELI D UNGERER Facility:[facility] Start: 05-24-2024 End: 05-24-2024 Office outpatient visit 15 minutes Les Mckeon PASTOR.TITLE ABSTRACTOR Work Phone: [facility] Comment on above: Injury of right aprilu lder, initial encounter (Primary Dx) Start: 04-30-2024 End: 04-30-2024 Telephone encounter Kirby Monge MD Work Phone: Neurology Comment on above: Medication Authoriza tion Start: 04-29-2024 End: 04-29-2024 ambulatory Janet Fernandez PASTOR.TITLE ABSTRACTOR Work Phone: Neurology Comment on above: [employer] Start: 04-11-2024 End: 04-11-2024 Telephone encounter Crissy Bell PASTOR.TITLE ABSTRACTOR Work Phone: [facility] Comment on above: Results Start: 04-10-2024 End: 04-10-2024 Subsequent hospital visit by physician Xr [facility] Work Phone: Radiology Comment on above: Acute pain of left k nee [M25.562] Start: 04-10-2024 End: 04-10-2024 ambulatory NELI D UNGERER Facility:[facility] Start: 04-10-2024 End: 04-10-2024 Patient encounter procedure Jay Delgado PASTOR.TITLE ABSTRACTOR Work Phone: [facility] Comment on above: Acute pain of left k nee (Primary Dx) Start: 04-10-2024 End: 04-10-2024 ambulatory Neli Ungerer Facility:[facility] Start: 03-31-2024 End: 04-01-2024 ambulatory Kirby Monge MD Work Phone: Neurology Comment on above: Amavig injection Start: 03-28-2024 End: 03-28-2024 Subsequent hospital visit by physician Xr [facility] Work Phone: Radiology Comment on above: Acute cough [R05.1] Start: 03-28-2024 End: 03-28-2024 ambulatory NELI D UNGERER Facility:[facility] Start: 03-28-2024 End: 03-28-2024 Patient encounter procedure Neli Redd PASTOR.TITLE ABSTRACTOR Work Phone: [facility] Comment on above: Acute cough (Primary Dx) Start: 03-19-2024 End: 03-19-2024 ambulatory NELI Shasta BRITTONLisa Facility:[facility] Start: 03-19-2024 End: 03-19-2024 Patient encounter procedure Michelle Yon PASTOR.TITLE ABSTRACTOR Work Phone: [facility] Comment on above: Acute cough (Primary Dx); Rhinosinusitis Start: 02-28-2024 End: 02-28-2024 Patient encounter procedure Charline Je PASTOR.TITLE ABSTRACTOR Work Phone: Cerebrovascular Comment on above: Transient speech dis turbance (Primary Dx); Transient neurological symptoms; Daytime sleepiness; Snoring; Tobacco use disorder Start: 02-28-2024 End: 02-28-2024 ambulatory CHARLINE SPENCERDORENEPROSPER Facility:[facility] Start: 02-04-2024 End: 02-05-2024 Telephone encounter Paty Arciniega DO Work Phone: Hematology/Oncology Comment on above: Follow Up Start: 01-17-2024 Telephone encounter Paty silverman DO Work Phone: Hematology/Oncology Comment on above: Results Start: 01-11-2024 Telephone encounter Paty silverman DO Work Phone: Hematology/Oncology Comment on above: Follow Up Start: 11-14-2023 End: 11-14-2023 ambulatory Paty Arciniega DO Work Phone: Hematology/Oncology Comment on above: Factor V Leiden (HCC ) (Primary Dx); History of DVT of lower extremity; Mzordx-mh-mgzkjehtg syndrome (HCC) Start: 11-14-2023 End: 11-14-2023 Patient encounter procedure Paty Arciniega DO Work Phone: Hematology/Oncology Start: 10-26-2023 Telephone encounter Neptali tyler MD Work Phone: Hematology/Oncology Comment on above: New Patient Start: 10-25-2023 Telephone encounter Elizabeth tom MD Work Phone: Cerebrovascular Comment on above: Consult Start: 10-25-2023 End: 10-25-2023 Patient encounter procedure Elizabeth Marques MD Work Phone: Cerebrovascular Comment on above: Zaqvly-wa-wqayuzfki syndrome (HCC) (Primary Dx); Facial weakness; Facial numbness; Speech disturbance, unspecified type; Nicotine abuse [Z72.0] Start: 10-25-2023 End: 10-25-2023 ambulatory ELIZABETH MARQUES Facility:[facility] Start: 10-20-2023 ambulatory Kirby Monge MD Work Phone: Neurology Comment on above: [employer] approved Start: 10-20-2023 E-mail encounter fro m caregiver Kirby oMnge MD Work Phone: Neurology Start: 10-02-2023 End: 10-02-2023 ambulatory Kirby Monge MD Work Phone: Neurology Comment on above: Chronic migraine wit hout aura with status migrainosus, not intractable Start: 10-02-2023 End: 10-02-2023 Telemedicine consultation with patient Kirby Monge MD Work Phone: Neurology Start: 09-25-2023 [facility] Work Phone: Neurology Start: 09-14-2023 End: 09-14-2023 Patient encounter procedure Janet Fernandez APRN.TITLE ABSTRACTOR Work Phone: Neurology Comment on above: Facial weakness (Nhi eleazar Dx); Facial numbness; Sensory deficit, right; Memory change; Migraine without aura and without status migrainosus, not intractable; Other fatigue; Snoring; Speech disturbance, unspecified type Start: 08-29-2023 End: 08-30-2023 Evaluation and management of inpatient PHARMACIST PER DIEM. Neli Tripp Work Phone: [facility]-Progressive Care Unit Work Phone: Start: 08-29-2023 End: 08-30-2023 observation encounter PHARMACIST PER DIEM. Neli Tripp Work Phone: [facility] Work Phone: Start: 08-28-2023 Telephone encounter Janet Dominguez PASTOR.TITLE ABSTRACTOR Work Phone: Neurology Start: 07-27-2023 End: 07-27-2023 Patient encounter procedure PHARMACIST PER DIEM. Neli Brittonlisa Work Phone: [facility] Work Phone: Start: 07-18-2023 End: 07-18-2023 Emergency department patient visit PHARMACIST PER DIEM. Neli [facility]agdish [facility] Start: 07-16-2023 End: 07-16-2023 Patient encounter procedure PHARMACIST PER DIEM. Neli Mayjagdish Work Phone: [facility] Work Phone: Start: 06-02-2023 End: 06-02-2023 Patient encounter procedure PHARMACIST PER DIEM. Neli Brittonr Work Phone: [facility] Work Phone: Start: 05-22-2023 End: 05-22-2023 Patient encounter procedure PHARMACIST PER DIEM. Neli Tripp Work Phone: [facility] Work Phone: Start: 05-22-2023 Non-patient / Non-visit PHARMACIST PER DIEM. Jeb Mayjagdish Work Phone: [facility] Work Phone: Start: 05-16-2023 End: 05-17-2023 ambulatory JANET FERNANDEZ Facility:[facility] Start: 05-12-2023 Telephone encounter Janet Dominguez PASTOR.TITLE ABSTRACTOR Work Phone: Neurology Comment on above: Insurance Authorizat ion (Authorization for MRI received. /Auth # [id number]) Start: 04-29-2023 End: 04-29-2023 Emergency department patient visit PHARMACIST PER DIEM. Neli Mayjagdish Work Phone: [facility]-Emergency Department Work Phone: Start: 04-25-2023 End: 04-25-2023 Patient encounter procedure PHARMACIST PER DIEM. Nelishahla Tripp Work Phone: [facility] Work Phone: Start: 03-30-2023 Telephone encounter Neurology Provid er Neurology Comment on above: Referral Request Start: 03-16-2023 Non-patient / Non-visit PHARMACIST PER DIEM. Jeb atajonathan Mayjagdish Work Phone: [facility] Work Phone: Start: 03-16-2023 Non-patient / Non-visit PHARMACIST PER DIEM. Jeb atajonathan Mayjagdish Work Phone: [facility] Start: 03-15-2023 End: 03-16-2023 Evaluation and management of inpatient [facility]-Progressive Care Unit Work Phone: Start: 03-15-2023 observation encounter W [facility] Work Phone: Start: 12-07-2022 End: 12-08-2022 ambulatory JAYDE ALCAZAR PASTOR-TITLE ABSTRACTOR Facility:[facility] Start: 12-07-2022 End: 12-08-2022 Observation LES MICHEL DO [facility] Start: 11-25-2022 End: 11-26-2022 ambulatory [facility] PA-C Facility:[facility] Start: 11-25-2022 End: 11-26-2022 ambulatory [facility] PA-C Facility:[facility] Start: 11-25-2022 End: 11-25-2022 Patient encounter procedure LES MICHEL DO [facility] Start: 11-25-2022 End: 11-25-2022 Admission to establishment LES MICHEL DO [facility] Start: 05-06-2022 End: 05-07-2022 Emergency department patient visit Dr. Loretta Hermosillo Work Phone: [facility]-Emergency Department Start: 03-28-2022 Non-patient / Non-visit Dr. Jeb Hermosillo Work Phone: [facility] Start: 03-28-2022 End: 03-28-[address] Loretta Hermosillo Work Phone: [facility] Work Phone: Start: 03-28-2022 End: 03-28-[address] Loretta Hermosillo Work Phone: [facility]-Pulmonary Services/Neurology Procedures Date Procedure Procedure Detail Performing Clinician Start: 01-11-2025 Radex ankle complete minimum 3 views Jay Moomaw PASTOR.TITLE ABSTRACTOR Work Phone: Start: 12-30-2024 Mri spinal canal cer vical w/o & w/contr matrl Janet Fernandez PASTOR.TITLE ABSTRACTOR Work Phone: Start: 10-23-2024 MRI of brain with contrast Neli Ungerer PHARMACIST PER DIEM-C Work Phone: Start: 10-23-2024 Estimated creatinine clearance Neli Ungerer PHARMACIST PER DIEM-C Work Phone: Start: 10-23-2024 Lymphocyte percent differential count Neli Ungerer PHARMACIST PER DIEM-C Work Phone: Start: 10-23-2024 Serum inorganic phos phate measurement Neli Ungerer PHARMACIST PER DIEM-C Work Phone: Start: 10-22-2024 CT angiography of he ad and neck Neli Ungerer PHARMACIST PER DIEM-C Work Phone: Start: 10-22-2024 CT of head without contrast Neli Ungerer PHARMACIST PER DIEM-C Work Phone: Start: 10-22-2024 Estimated creatinine clearance Neli Ungerer PHARMACIST PER DIEM-C Work Phone: Start: 10-22-2024 Lymphocyte percent differential count Neli Tripp PHARMACIST PER DIEM-C Work Phone: Start: 09-22-2024 Plain x-ray of wrist PHARMACIST PER DIEM . Neli Tripp PHARMACIST PER DIEM-C Work Phone: Start: 07-29-2024 Radex wrist complete minimum 3 views Jeovany Clutter PA-C Work Phone: Start: 07-18-2024 Radiologic exam ches t 2 views Nelishahla Redd PASTOR.TITLE ABSTRACTOR Work Phone: Start: 07-18-2024 STREP A MOLECULAR (POC) Nelioxana Redd PASTOR.TITLE ABSTRACTOR Work Phone: Start: 05-24-2024 Radex shoulder compl ete minimum 2 views Les Mckeon PASTOR.TITLE ABSTRACTOR Work Phone: Start: 04-10-2024 Radiologic exam knee complete 4/more views Jay Delgado PASTOR.TITLE ABSTRACTOR Work Phone: Start: 03-28-2024 Radiologic exam ches t 2 views Neli Sarah PASTOR.TITLE ABSTRACTOR Work Phone: Start: 02-28-2024 Follow-up visit Follow Up URSZULA WOOTEN Start: 08-30-2023 MRI of brain with contrast PHARMACIST PER DIEM. Neli Brittonlisa Work Phone: Start: 08-30-2023 CT angiography of he ad and neck PHARMACIST PER DIEM. Neli Tripp Work Phone: Start: 08-29-2023 Plain chest X-ray PHARMACIST PER DIEM. Merline Tripp Work Phone: Start: 08-29-2023 CT of head without contrast PHARMACIST PER DIEM. Neli Brittonlisa Work Phone: Start: 04-29-2023 X-ray of both feet PHARMACIST PER DIEM. Neli Brittonlisa Work Phone: Start: 03-15-2023 MRI of brain without contrast PHARMACIST PER DIEM. Neli Brittonr Work Phone: Start: 03-15-2023 Plain chest X-ray Start: 03-15-2023 CT angiography of he ad and neck Start: 03-15-2023 CT of head without contrast Start: 03-15-2023 Urine culture PHARMACIST PER DIEM. Christa Tripp Work Phone: Start: 12-07-2022 Discectomy ant dcmpr n cord cervical ea ntrspc LES MICHEL DO Comment on above: C5-6, C6-7 Start: 05-06-2022 X-ray of both feet Dr. Loretta Hermosillo Work Phone: Cystoscopy LES Gaston O Decompression of med [place] nerve LES MICHEL DO Comment on above: bilateral Extracorporeal shock wave lithotripsy of ureter LES MICHEL DO Comment on above: with ureteral stent, x2 Wedge excision skin nail fold LESYOLANDA MICHEL DO Plan of Treatment Date Care Activity Detail Author Start: 06-08-2026 Urine microalbumin profile DTaP,Tdap,Td Vaccine (2 - Td or Tdap) [facility] Start: 08-28-2025 End: 08-28-2025 Patient encounter procedure 08/28/2025 1:30 PM EDT Office Visit Cerebrovascular [address] [place], [place] [phone] Charline Wooten APRN.TITLE ABSTRACTOR [address] [phone] 1 year follow up Cerebrovascular Comment on above: 1 year follow up Start: 03-21-2025 End: 03-21-2025 Patient encounter procedure 03/21/2025 12:45 PM EDT Office Visit Dermatology [address] [place], [place] [id number] Antwon Calderon MD [address] [place], [place] [phone] Rash, spreading Dermatology Comment on above: Rash, spreading Start: 02-20-2025 End: 02-20-2025 Follow-up encounter Neurology Comment on above: follow up medication check Start: 02-17-2025 End: 02-17-2025 Patient encounter procedure 02/17/2025 1:00 PM EDT Office Visit Rheumatology [address] [address] Brian Sheldon MD [address] [facility], Desk [address] [phone] NEW CONSULT Rheumatology Comment on above: NEW CONSULT Start: 02-10-2025 Influenza vaccination [facility] Start: 01-30-2025 [facility] Start: 01-30-2025 Plain x-ray of pelvis and lower extremity HIP, UNI W/ Pelvis 2-3 Views [facility] Start: 01-24-2025 End: 01-24-2025 Patient encounter procedure 01/24/2025 1:00 PM EDT Appointment Radiology [address] [place] [address] Pain in joint, multiple sites [M25.50] Radiology Comment on above: Pain in joint, multiple sites [M25.50] Start: 01-23-2025 [facility] Start: 01-15-2025 End: 01-15-2025 Patient encounter procedure 01/15/2025 2:00 PM EDT Office Visit Rheumatology [address] [place] [address] Pramod Gomez PA-C [address] [place] [address] 2 - 3 weeks follow up Rheumatology Comment on above: 2 - 3 weeks follow up Start: 01-02-2025 End: 04-03-2025 ALFONZO BY IFA SCREEN [facility] Comment on above: Expected: 01/02/2025, Expires: Start: 01-02-2025 End: 04-03-2025 C reactive protein [Mass/volume] in Serum or Plasma [facility] Comment on above: Expected: 01/02/2025, Expires: Start: 01-02-2025 End: 04-03-2025 Complement C3 [Mass/volume] in Serum or Plasma [facility] Comment on above: Expected: 01/02/2025, Expires: Start: 01-02-2025 End: 04-03-2025 Complement C4 [Mass/volume] in Serum or Plasma [facility] Comment on above: Expected: 01/02/2025, Expires: Start: 01-02-2025 End: 04-03-2025 Cyclic citrullinated peptide IgG Ab [Units/volume] in Serum or Plasma [facility] Comment on above: Expected: 01/02/2025, Expires: Start: 01-02-2025 End: 04-03-2025 DNA double strand Ab [Units/volume] in Serum by Immunoassay [facility] Comment on above: Expected: 01/02/2025, Expires: Start: 01-02-2025 End: 04-03-2025 Extractable nuclear Ab panel - Serum [facility] Comment on above: Expected: 01/02/2025, Expires: Start: 01-02-2025 End: 01-02-2025 Patient encounter procedure 01/02/2025 2:00 PM EDT Office Visit Rheumatology [address] [place], [place] [phone] Pramod Gomez PA-C [address] [place], [place] [phone] RA rescheduled fr 12/11 Rheumatology Comment on above: RA rescheduled frm 12/11 Start: 01-02-2025 End: 04-03-2025 Protein/Creatinine [Mass Ratio] in Urine [facility] Comment on above: Expected: 01/02/2025, Expires: Start: 01-02-2025 End: 04-03-2025 Rheumatoid factor [Units/volume] in Serum or Plasma [facility] Comment on above: Expected: 01/02/2025, Expires: Start: 01-01-2025 End: 01-01-2025 Follow-up encounter 01/01/2025 2:00 PM EDT Formerly [facility] [address] [address] Ncik Rachel MD [address] [place] [address] Follow up with [facility] Comment on above: Follow up with mriv Start: 12-30-2024 End: 12-30-2024 Patient encounter procedure 12/30/2024 2:30 PM EDT Appointment Radiology [address] [place] [address] MRI THORACIC SPINE WO/W IVCON Radiology Comment on above: MRI THORACIC SPINE WO/W IVCON Start: 12-11-2024 End: 12-11-2024 Patient encounter procedure 12/11/2024 1:00 PM EDT Office Visit Rheumatology [address] [place] [address] Pramod Gomez PA-C [address] [place] [address] RA Rheumatology Comment on above: RA Start: 11-14-2024 End: 11-14-2024 Patient encounter procedure 11/14/2024 10:00 AM EDT Office Visit Neurology [address] [phone] Janet Fernandez, PASTOR.TITLE ABSTRACTOR [address] [address] New ER/HD Follow Up Visit - [facility] Neurology Comment on above: New ER/HD Follow Up Visit - [facility] Start: 10-23-2024 Patient discharge [facility] Start: 10-22-2024 End: 10-22-2024 [facility] Start: 10-22-2024 Following clinical pathway protocol [facility] Start: 10-22-2024 Aspiration precautions [facility] Start: 10-22-2024 Assessment of risk of venous thromboembolism [facility] Start: 10-22-2024 Cardiac monitoring [facility] Start: 10-22-2024 Catheterization of vein [facility] Start: 10-22-2024 Consultation [facility] Start: 10-22-2024 Continuous pulse oximetry [facility] Start: 10-22-2024 Elevation of head of bed [facility] Start: 10-22-2024 Exercises [facility] Start: 10-22-2024 Incentive spirometry [facility] Start: 10-22-2024 Inhalation therapy procedure [facility] Start: 10-22-2024 Insertion of catheter into peripheral vein [facility] Start: 10-22-2024 Measuring intake and output [facility] Start: 10-22-2024 Notification of physician [facility] Start: 10-22-2024 Oxygen therapy [facility] Start: 10-22-2024 Patient referral to dietitian [facility] Start: 10-22-2024 Providing care according to standard [facility] Start: 10-22-2024 Referral to occupational therapist [facility] Start: 10-22-2024 Referral to service [facility] Start: 10-22-2024 Speech therapy assessment [facility] Start: 10-22-2024 Tobacco use cessation education [facility] Start: 10-22-2024 Vital signs measurements [facility] Start: 10-22-2024 MRI of brain with contrast Brain W/WO Contrast [facility] Start: 10-22-2024 Verification routine [facility] Start: 10-22-2024 Hospital admission, emergency, from emergency room, medical nature [facility] Start: 10-22-2024 Admission procedure [facility] Start: 10-22-2024 Oxygen therapy [facility] Start: 10-22-2024 End: 10-22-2024 [facility] Start: 09-22-2024 [facility] Start: 08-28-2024 End: 08-28-2024 Patient encounter procedure 08/28/2024 11:30 AM EDT Office Visit Cerebrovascular [address] [place] [address] Charline Wooten, MARLEEN.TITLE ABSTRACTOR [address] [address] 6 month follow up Cerebrovascular Comment on above: 6 month follow up Start: 08-17-2024 End: 08-17-2024 [facility] Start: 06-21-2024 End: 06-21-2024 ambulatory 06/21/2024 1:30 PM EST Results Only [facility] [address] [place] [address] [place] [address] lab [facility] Comment on above: lab Start: 06-12-2024 End: 09-11-[address] LUPUS ANTICOAG PL Lab Routine Lupus anticoagulant disorder (HCC) Expected: 06/12/2024, Expires: 09/11/2024 [facility] Work Phone: Comment on above: Expected: 06/12/2024, Expires: Start: 06-07-2024 End: 06-07-2024 ambulatory [facility] Comment on above: D Dimer 4 MO OV/LAB EARLY* Start: 05-31-2024 End: 05-31-2024 ambulatory [facility] Comment on above: D Dimer 4 MO OV/LAB EARLY* r /s from 06/07 Start: 02-28-2024 End: 02-28-2024 Patient encounter procedure 02/28/2024 11:00 AM EDT Office Visit Cerebrovascular [address] [place], [place] [phone] Charline Wooten APRN.TITLE ABSTRACTOR [address] [phone] 4 month follow up Cerebrovascular Comment on above: 4 month follow up Start: 02-11-2024 Covid-19 Vaccine ( season) Covid-19 Vaccine ( season) [facility] Start: 02-11-2024 Covid-19 Vaccine ( season) Covid-19 Vaccine ( season) [facility] Start: 02-11-2024 Influenza vaccination Influenza Vaccine (#1) [facility] Start: 01-17-2024 End: 04-17-2024 HYPERCOAG DIAG PNL HYPERCOAG DIAG PNL Lab Routine History of DVT of lower extremity History of embolic stroke Expected: 01/17/2024, Expires: 04/17/2024 [facility] Work Phone: Comment on above: Expected: 01/17/2024, Expires: Start: 01-11-2024 End: 04-11-2024 Fibrin D-dimer FEU [Mass/volume] in Platelet poor plasma D-DIMER Lab Routine History of DVT of lower extremity Expected: 01/11/2024, Expires: 04/11/2024 [facility] Work Phone: Comment on above: Expected: 01/11/2024, Expires: Start: 11-14-2023 End: 11-14-2023 ambulatory 11/14/2023 2:00 PM EDT Visit (SP) Office Hematology/Oncology [address] [place], [place] [phone] Paty Arciniega DO [address] [facility] [place] [address] 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 9] Start: 11-07-2023 End: 11-07-2023 Patient encounter procedure 11/07/2023 12:00 PM EDT Office Visit Cerebrovascular Center [address] [phone] Christiano Brennan MD [address] [place] [address] Facial weakness [R29.810] Cerebrovascular Center Comment on above: Facial weakness [R29.810] Start: 10-25-2023 End: 10-25-2023 Patient encounter procedure 10/25/2023 10:00 AM EDT Office Visit Cerebrovascular [address] [place] [address] Elizabeth Marques MD [address] [place] [address] CONSULT TO NEUROLOGY- Cerebrovascular Center Cerebrovascular Comment on above: CONSULT TO NEUROLOGY- Cerebrovascular Ce nter Start: 10-03-2023 End: 10-03-2023 Patient encounter procedure 10/03/2023 10:00 AM EDT Office Visit [facility] [address] [facility] [place] [address] Snoring; Other fatigue Neurology Comment on above: Snoring; Other fatigue Start: 08-30-2023 [facility] Start: 08-30-2023 Patient discharge [facility] Start: 08-30-2023 Lamotrigine measurement [facility] Start: 08-30-2023 Assessment of risk of venous thromboembolism [facility] Start: 08-30-2023 Cardiac monitoring [facility] Start: 08-30-2023 Catheterization of vein [facility] Start: 08-30-2023 Continuous pulse oximetry [facility] Start: 08-30-2023 Elevation of head of bed [facility] Start: 08-30-2023 Exercises [facility] Start: 08-30-2023 Fall prevention [facility] Start: 08-30-2023 Implementation of planned interventions [facility] Start: 08-30-2023 Incentive spirometry [facility] Start: 08-30-2023 Insertion of catheter into peripheral vein [facility] Start: 08-30-2023 Introduction of urinary catheter [facility] Start: 08-30-2023 Measuring intake and output [facility] Start: 08-30-2023 Notification of physician [facility] Start: 08-30-2023 Patient referral to dietitian [facility] Start: 08-30-2023 Providing care according to standard [facility] Start: 08-30-2023 Provision of activity privileges [facility] Start: 08-30-2023 Referral to occupational therapist [facility] Start: 08-30-2023 Referral to service [facility] Start: 08-30-2023 Speech therapy assessment [facility] Start: 08-30-2023 Telemedicine consultation with patient [facility] Start: 08-30-2023 Tobacco use cessation education [facility] Start: 08-30-2023 Following clinical pathway protocol [facility] Start: 08-29-2023 Admission procedure [facility] Start: 08-29-2023 End: 08-29-2023 Hospital admission, emergency, from emergency room, medical nature [facility] Start: 08-29-2023 End: 08-30-2023 Oxygen therapy [facility] Start: 08-29-2023 End: 08-30-2023 [facility] Start: 07-18-2023 [facility] Start: 06-12-2023 Depression Assessment Depression Assessment [facility] Start: 04-29-2023 [facility] Start: 03-16-2023 Patient discharge [facility] Start: 03-15-2023 Following clinical pathway protocol [facility] Start: 03-15-2023 Aspiration precautions [facility] Start: 03-15-2023 Assessment of risk of venous thromboembolism [facility] Start: 03-15-2023 Cardiac monitoring [facility] Start: 03-15-2023 Catheterization of vein [facility] Start: 03-15-2023 Continuous pulse oximetry [facility] Start: 03-15-2023 Elevation of head of bed [facility] Start: 03-15-2023 Exercises [facility] Start: 03-15-2023 Fall prevention [facility] Start: 03-15-2023 Implementation of planned interventions [facility] Start: 03-15-2023 Incentive spirometry [facility] Start: 03-15-2023 Inhalation therapy procedure [facility] Start: 03-15-2023 Insertion of catheter into peripheral vein [facility] Start: 03-15-2023 Introduction of urinary catheter [facility] Start: 03-15-2023 Measuring intake and output [facility] Start: 03-15-2023 Notification of physician [facility] Start: 03-15-2023 Oxygen therapy [facility] Start: 03-15-2023 Patient referral to dietitian [facility] Start: 03-15-2023 Providing care according to standard [facility] Start: 03-15-2023 Provision of activity privileges [facility] Start: 03-15-2023 Referral to occupational therapist [facility] Start: 03-15-2023 Referral to service [facility] Start: 03-15-2023 Speech therapy assessment [facility] Start: 03-15-2023 Tobacco use cessation education [facility] Start: 03-15-2023 [facility] Start: 03-15-2023 Vital signs measurements [facility] Start: 03-15-2023 Admission procedure [facility] Start: 03-15-2023 Verification routine [facility] Start: 03-15-2023 Lamotrigine measurement [facility] Start: 03-15-2023 End: 03-15-2023 [facility] Start: 03-15-2023 Oxygen therapy [facility] Start: 03-15-2023 Bacteria identified in Urine by Culture Urine Culture [facility] Start: 03-15-2023 Iiv4 vacc presrv free 0.5 ml dos for im use IIV4 VACC NO PRSV 0.5 ML IM [facility] Start: 03-15-2023 Patient referral to dietitian [facility] Start: 02-10-2023 Covid-19 Vaccine ( season) Covid-19 Vaccine () [facility] Start: 02-10-2023 Influenza vaccination Influenza Vaccine (#1) [facility] Start: 06-12-2022 Depression Assessment Depression Assessment [facility] Start: 2016 HPV Testing HPV Testing [facility] Start: 2016 Screening for malignant neoplasm of cervix HPV Testing [facility] Start: 11-27-2014 Pneumococcal vaccination [facility] Start: 2013 HPV Vaccine (1 - 3-dose SCDM series) HPV Vaccine (1 - 3-dose SCDM series) [facility] Start: 10-25-2007 Pap Testing Pap Testing [facility] Start: 10-25-2007 Screening for malignant neoplasm of cervix [facility] Start: 2005 Hepatitis B Vaccine (1 of 3 - 19+ 3-dose series) Hepatitis B Vaccine (1 of 3 - 19+ 3-dose series) [facility] Start: 2005 Urine microalbumin profile DTaP,Tdap,Td Vaccine (1 - Tdap) [facility] Start: 2004 Anxiety Screening Anxiety Screening [facility] Start: 2004 Depression Screening Depression Screening [facility] Start: 2004 Hepatitis C Screening Hepatitis C Screening [facility] Start: 2004 Hepatitis C screening Hepatitis C Screening [facility] Start: 2004 HIV Screening HIV Screening [facility] Start: 2004 HIV screening HIV Screening [facility] Start: 04-26-1987 Covid-19 Vaccine (#1) Covid-19 Vaccine (#1) [facility] Start: 1986 Hepatitis B Vaccine (1 of 3 - 3-dose series) Hepatitis B Vaccine (1 of 3 - 3-dose series) [facility] Amphetamine [Mass/volume] in Urine [facility] Benzodiazepine measurement, urine [facility] Cocaine measurement, urine [facility] COVID & INFLUENZA A/ B & RSV PCR, ROUTINE COVID & INFLUENZA A/B & RSV PCR, ROUTINE Microbiology Routine COVID-19 virus infection Ordered: 06/26/2024 [facility] Work Phone: Comment on above: Ordered: 06/26/2024 Hemoglobin A1c/Hemoglobin.total in Blood [facility] End: 09-13-2024 HOME SLEEP APNEA TEST (HSAT) HOME SLEEP APNEA TEST (HSAT) Procedures Routine Snoring Other fatigue 1 Occurrences starting 09/14/2023 until 09/13/2024 [facility] Work Phone: Comment on above: 1 Occurrences starting 09/14/2023 until 09/13/2024 Measurement of 3,4-methylenedioxymetha mphetamine in urine [facility] Methadone measuremen t, urine [facility] End: 12-14-2025 MR Cervical spine WO and W contrast IV MRI CERVICAL SPINE WO/W IVCON Radiology Routine 1 Occurrences starting 11/14/2024 until 12/14/2025 [facility] Work Phone: Comment on above: 1 Occurrences starting 11/14/2024 until 12/14/2025 MR Pelvis WO contrast MRI PELVIS ORTHO GENERAL WO IVCON Radiology Routine Pain in joint, multiple sites Sacroiliac pain Encounter for screening for other musculoskeletal disorder Inflammatory back pain 01/31/2025 12:59 PM EDT [facility] Work Phone: End: 12-14-2025 MR Thoracic spine WO and W contrast IV MRI THORACIC SPINE WO/W IVCON Radiology Routine 1 Occurrences starting 11/14/2024 until 12/14/2025 [facility] Comment on above: 1 Occurrences starting 11/14/2024 until 12/14/2025 Patient Education [facility] Work Phone: Patient referral [facility] Work Phone: pH of Urine [facility] Phencyclidine [Presence] in Urine [facility] Troponin T.cardiac [Mass/volume] in Serum or Plasma by High sensitivity method [facility] Troponin T.cardiac [Mass/volume] in Serum or Plasma by High sensitivity method [facility] Urine barbiturate measurement [facility] Urine cannabinoid measurement [facility] Urine opiate measurement [facility] End: 02-01-2026 XR Knee - right 4 Views XR KNEE GENERAL 4V AP BOTH/PA BOTH/LAT/MERC RIGHT Radiology Routine Pain in joint, multiple sites Right leg paresthesias 1 Occurrences starting 01/02/2025 until 02/01/2026 [facility] Comment on above: 1 Occurrences starting 01/02/2025 until 02/01/2026 XR Knee - right 4 Views XR KNEE GENERAL 4V AP BOTH/PA BOTH/LAT/MERC RIGHT Radiology Routine Pain in joint, multiple sites Right leg paresthesias 01/02/2025 3:46 PM EDT [facility] End: 02-01-2026 XR Pelvis and Hip - right AP and Lateral frog XR HIP GENERAL 3V PELV/AP/LAT RIGHT Radiology Routine Pain in joint, multiple sites Right leg paresthesias 1 Occurrences starting 01/02/2025 until 02/01/2026 [facility] Work Phone: Comment on above: 1 Occurrences starting 01/02/2025 until 02/01/2026 XR Pelvis and Hip - right AP and Lateral frog XR HIP GENERAL 3V PELV/AP/LAT RIGHT Radiology Routine Pain in joint, multiple sites Right leg paresthesias 01/02/2025 3:41 PM EDT [facility] End: 02-01-2026 XR Sacroiliac Joint Views XR SACROILIAC JOINTS 2V AP PELVIS/FERGUESON Radiology Routine Pain in joint, multiple sites Right leg paresthesias 1 Occurrences starting 01/02/2025 until 02/01/2026 [facility] Comment on above: 1 Occurrences starting 01/02/2025 until 02/01/2026 XR Sacroiliac Joint Views XR SACROILIAC JOINTS 2V AP PELVIS/FERGUESON Radiology Routine Pain in joint, multiple sites Right leg paresthesias 01/02/2025 3:42 PM EDT [facility] Immunizations Immunization Date Immunization Notes Care Provider Fa peg 03-16-2023 influenza, injectabl e, quadrivalent, preservative free PHARMACIST PER DIEM. Neli Tripp Work Phone: [facility] 03-16-2023 influenza virus vacc ine, unspecified formulation Paty Arciniega DO Work Phone: [facility] 11-11-2020 SARS-CoV-2 (COVID-19 ) mRNA-1273 vaccine LES MICHEL DO [facility] Comment on above: Result Comment: 2022: TPVALL 10-16-2020 SARS-CoV-2 (COVID-19 ) mRNA-1273 vaccine LES MICHEL DO [facility] Comment on above: Result Comment: 2022: TPVALL 05-13-2019 influenza virus vacc ine, unspecified formulation LES MICHEL DO [facility] 03-12-2017 influenza virus vacc ine, unspecified formulation LES MICHEL DO [facility] 06-08-2016 tetanus toxoid, redu cory diphtheria toxoid, and acellular pertussis vaccine, adsorbed LES MICHEL DO [facility] 04-08-2016 influenza virus vacc ine, unspecified formulation LES MICHEL DO [facility] 06-27-2015 influenza virus vacc ine, unspecified formulation LES MICHEL DO [facility] 05-14-2014 influenza virus vacc ine, unspecified formulation LES MICHEL DO [facility] 11-27-2013 pneumococcal polysaccharide vaccine, 23 valent LES MICHEL DO [facility] 11-27-[address] Rosetta Hermosillo Work Phone: [facility] Work Phone: 11-27-2013 pneumococcal vaccine , unspecified formulation Dr. Loretta Hermosillo Work Phone: [facility] 11-10-2013 pneumococcal polysaccharide vaccine, 23 valent LES MICHEL DO [facility] 02-27-[address] Loretta Hermosillo Work Phone: [facility] 01-11-1999 measles/mumps/rubell a virus vaccine [facility] System Payers Date Payer Category Payer Unknown [id number] 2024 Self-pay [id number] 2022 Medicaid [id number] 2022 Medicaid [id number] 2016 Unknown [id number] 1986 Unknown [id number] 2.16.8 [id number] 1986 Unknown [id number] 2.16.8 40.1.665702.3.579.2.627 1986 Unknown [id number] 2.16.8 40.1.448211.3.579.2.627 1986 Unknown [id number] 2.16.8 40.1.528835.3.579.2.651 Unknown [id number] 2.16.8 40.1.492297.3.579.2.462 Unknown [id number] 2.16.8 40.1.819414.3.579.2.462 Unknown [id number] 2.16.8 40.1.251683.3.579.2.462 Unknown [id number] 2.16.8 40.1.456599.3.579.2.462 Unknown [id number] 2.16.8 40.1.614847.3.579.2.462 Unknown [id number] 2.16.8 40.1.573096.3.579.2.462 Unknown [id number] 2.16.8 40.1.854530.3.579.2.462 Unknown [id number] 2.16.8 40.1.319247.3.579.2.462 Unknown [id number] 2.16.8 40.1.178009.3.579.2.462 Unknown [id number] 2.16.8 40.1.908931.3.579.2.462 Unknown [id number] 2.16.8 40.1.511410.3.579.2.462 Unknown [id number] 2.16.8 40.1.081324.3.579.2.462 Unknown [id number] 2.16.8 40.1.269215.3.579.2.462 Unknown [id number] 2.16.8 40.1.396818.3.579.2.462 Social History Date Type Detail Facility Start: 04-13-2021 End: 08-30-2023 Tobacco smoking status SDIS Unknown if ever smoked [facility] Start: 09-29-2020 None [facility] Start: 06-17-2019 With Family [facility] Start: 10-10-2020 Cigarettes [facility] Start: 1985 Sex Assigned At Female W [facility] Start: 11-25-2022 Tobacco smoking status Heavy tobacco smoker (finding) [facility] Sex Assigned At Sex [facility] Start: 1985 Sex Assigned At Not on file [facility] Start: 04-13-2023 End: 05-31-2023 Gender identity Not on file [facility] Start: 03-16-2023 Cigarettes;Vapor [facility] Start: 12-17-2002 End: 02-28-2024 Tobacco smoking status NHIS Smokes tobacco daily [facility] Start: 12-17-2002 History of tobacco use Cigarette Smoker [facility] Start: 04-13-2023 End: 05-31-2023 Cigarettes smoked current (pack per day) - Reported 1 [facility] Start: 04-13-2023 End: 02-28-2024 Tobacco use and exposure Smokeless tobacco non-user [facility] Start: 04-13-2023 End: 02-17-2025 Alcohol intake Ex-drinker (finding) [facility] Start: 05-13-2012 National Score (1-100), lower number is lower risk 75 [facility] Start: 08-17-2024 End: 09-22-2024 Sex Female (finding) [facility] NEGATED: Highlighted row [facility] NEGATED: Highlighted row Not [facility] Goals Date Patient Goal Desired Activity /State Functional Status Date Assessment Result Facility 10-23-2024 Functional status Ambulates [facility] Work Phone: 08-30-2023 Functional status Ambulates [facility] Work Phone: 03-16-2023 Functional status Activity Abili ty Standby Assist [facility] Work Phone: 12-08-2022 Functional Status Room check performed [facility] 12-08-2022 Functional Status Augusto Gee [facility] 12-08-2022 Functional Status IND [facility] 12-08-2022 Functional Status Single level home [facility] 12-08-2022 Functional Status Demonstrates C orrect Call Light Use Yes [facility] 12-07-2022 Functional Status SCD On/Re-appl ied bilateral knee high [facility] 12-07-2022 Functional Status Independent [facility] 12-07-2022 Functional Status 75 [facility] 12-07-2022 Functional Status ice on [facility] 12-07-2022 Functional Status Maintained, More than 8 hours [facility] 11-25-2022 Functional Status Sensory Deficits None A [facility] Mental Status Date Assessment Result Facility 10-23-2024 Cognitive function Voice/Name [facility] Work Phone: 10-22-2024 Cognitive function Level Of Cons ciousness Awake;Alert;Appropriate;Follow s Commands [facility] Work Phone: 08-30-2023 Cognitive function Voice/Name [facility] Work Phone: 08-29-2023 Cognitive function Voice/Name [facility] Work Phone: 07-18-2023 Cognitive function Level Of Cons ciousness Awake;Alert;Appropriate;Follow s Commands [facility] Work Phone: 03-16-2023 Cognitive function Voice/Name [facility] Work Phone: 03-15-2023 Cognitive function Voice/Name [facility] Work Phone: 12-08-2022 Mental Status Oriented x 4 [facility] 12-08-2022 Mental Status [facility] 12-07-2022 Mental Status [facility] Clinical Notes 12-07-2022 to 03-04-2025 Patient Brian Penaloza MD - 02/17/2025 1:05 PM Eleazar Vickers, RT(R) - 01/31/2025 12:00 PM EDTTelephone Encounter - Dalia Worthington - 01/20/2025 8:12 AM EDT Note Date & Type Note Facility 03-04-2025 Note HNO ID: [id number] Author: MICHELLE MARVIN APRN.TITLE ABSTRACTOR Service: ? Author Type: Nurse Practitioner Type: Progress Notes Filed: 03/04/2025 10:29 Note Text: URGENT CARE JESÚS Sarath Santana is a 39 year old female. Patient presents with: Back Pain: Left side lower back pain, swelling and LROM, states bent over and felt pain x 1 days Back Pain The patient is a 39-year-old female with a history of chronic low back pain, presenting for an acute exacerbation. Chronic Low Back Pain: - Acute exacerbation of low back pain after bending to dry legs post-shower. - Pain localized to the lower back, described as "going across." - Denies radiation of pain to legs, or loss of bowel or bladder control. - History of recurrent back pain; not a new issue. - Previous episodes managed with corticosteroids and muscle relaxants, which have been effective. Review of Systems Musculoskeletal: Positive for back pain. Gastrointestinal: (-) bowel incontinence Genitourinary: (-) urinary incontinence Musculoskeletal: (+) low back pain, (-) radiating lower extremity pain Objective BP 89/65 Pulse 84 Temp 37.1 ?C (98.8 ?F) Resp 20 Wt 90.6 kg (199 lb 11.8 oz) LMP (LMP Unknown) SpO2 99% BMI 35.38 kg/m? Physical Exam General: No acute distress. Back: Tenderness in lower back. { 1. Acute midline low back pain without sciatica (M54.50) - Chronic low back pain with acute exacerbation; no radiation to legs, no bowel or bladder dysfunction. - Start prednisone as prescribed. - Start muscle relaxant as prescribed. - Educated on proper use of medications and supportive therapy; instructed to avoid driving or operating heavy machinery while taking muscle relaxant due to risk of drowsiness. - Provided work note for today. - Patient agreeable to care plan. and Recording using ambient AI software for draft documentation of the visit was discussed with the patient/authorized b2b outside sales representative; all questions welcomed and answered. Patient/authorized b2b outside sales representative agreed to proceed History and Record Review External record(s) reviewed: no prior records and other (see comments). Disposition The patient was discharged. Procedures [facility] 02-17-2025 Instructions Brian Sheldon MD - 02/17/2025 2:03 PM EDT Recommendations for Dry Eyes and Dry Mouth Dry eyes: Increase Cicero 3 free fatty acid intake (controversial) Reduce caffeine intake and smoking Turn off ceiling fans, use humidifier Eye drops: Preservative free artifical tears (Refresh, TheraTears, Soothe, Systane) 4 or more times in a day We can consider Cyclosporine (Restasis 1 drop BID) eye drops or Lifitegrast (Xiidra 1 drop BID) for moderate-severe eye disease. It may take up to 4-12 weeks to reach full effect though. Punctal occlusion can be considered as well by your sash assembler where they place a plug to your tear ducts Scleral contact lenses with a moisture resorvoir is another option but can be expensive Dry mouth: Sugar free gum (xylitol containing gum or lozenges from Pur or X-Pur) helps salivary secretion; avoid oral irritants such as alcohol coffee and highly acidic beverages Massage the salivary glands - place fingers on cheeks and milk the parotid gland in anterior direction. Another option is sublingual massage by pushing pushing the tongue down onto the two soft pillow like structures on the floor of the mouth "oral Kegel's" Store a bond pit, plastic button or pebble in mouth and move it around Use Dr Martínez's Herbal Lollipops or Loloz Drink Green Tea Be moderate in water drinking but stay hydrated - water doesn't lubricate the mouth instead try ice chips Wear removable prostheses , day or night - dentures that fit appropriately will cause some salivary flow through mechanical stimulation Oil-pull with virgin coconut oil - traditional folk remedy in ancient [place]. Take one half teaspoon of solid virgin coconut oil, put it in mouth and swish around, pull and push it through teeth for about 90 seconds Try commercially available remoistruzing or remineralizing aids - bioXtra products or XyliMelts Commercial products- Mouth Kote spray, Biotene mouthwash, saliva substitutes (Salivart, Xero-lube) If you have nasal polyps, removing those can help to prevent mouth breathing which helps with dry mouth We sometimes consider medications that is administered systemically such as pilocarpine, cevimeline Fatigue: If you have low energy, fatigue symptoms, it is always important to rule out or treat sleep apnea, low thyroid, or fibromyalgia Treatment Recommendations for Fibromyalgia developed by Dr. Kirby Espinal M.D. 1. Medications: We recommend first trying a tricyclic antidepressant such as cyclobenzaprine (Flexeril) or amitriptyline (Elavil) in patients who have not yet had an adequate trial of this class of medications. We prefer Flexeril. Although Flexeril is generally marketed as a muscle relaxant, the similarities in chemical structure to the tricyclic antidepressants make it a very useful medication to treat pain and it can also be helpful for treating sleep disturbance. Begin Flexeril at a dose of 5 mg 2-3 hours before bedtime. Taking the medication in this fashion can help decrease morning grogginess. Increase the dose by 5 mg every week as tolerated until a total dose of 20 mg is achieved. Increased fluid intake may decrease the incidence of dry mouth and constipation. Patients should also be warned about potential weight gain. Amitriptyline (Elavil) can be used similarly in doses starting at 10 mg before bedtime, increasing by 10 mg weekly as tolerated up to 50 mg. Nortriptyline is also a good choice for many people. If maximum tolerated doses of trycyclics are not providing adequate pain relief, we recommend addition (if Flexeril/Elavil is helping) or substitution of a dual reuptake inhibitor such as Cymbalta (duloxetine) or Savella (milnacipran). Such drugs may be the drug of first choice in fibromyalgia patients with prominent depression or fatigue, as they often work well for these co-morbid symptoms (in addition to treating pain). Begin Cymbalta at 30 mg once daily with food. The dose can eventually be increased up to a total of 120 mg per day as tolerated, taken either as a single night time dose or b.i.d. Begin Savella at 25 mg, slowly increasing the dose as tolerated to a maximum of 100mg daily (e.g. 50 mg b.i.d.). Both drugs may initially cause nausea, palpitations, and other noradrenergic side effects, so patients should be instructed that this may happen. These side effects usually resolve over time. Another class of medication with proven efficacy in fibromyalgia are the seyun-6-[id number] ligands, Neurontin (gabapentin) and Lyrica (pregabalin). This class of drug might be the best first choice for a fibromyalgia patient with prominent sleep problems. Lyrica is specifically approved for fibromyalgia, at doses of both 300 and 450mg. For Neurontin, doses typically in the range of 1500 - 3000 mg are necessary to treat pain. Both drugs are better tolerated if most or even all of the dose is taken at bedtime (e.g. 150 mg in the morning and 300 mg at night for Lyrica, or 600 mg in the morning and 1200 mg at night for Neurontin). Some of the other medications that can be helpful in some fibromyalgia patients are higher doses of older SSRI s such as Prozac, Zoloft, or Paxil. Dosages higher than those typically used for treating depression (e.g. 40 - 50 mg of Prozac) are often necessary as it appears that at these higher dosages the important noradrenergic activity of these drugs becomes more prominent. Gamma hydroxybutyrate (particularly in those with significant sleep problems) and dopamine agonists (in those with co-morbid restless leg syndrome) can also be helpful in subsets of fibromyalgia patients. 2. Non-pharmacologic management: Activity/exercise. A dimas aspect of fibromyalgia management is for the patient to appreciate that when their symptom(s) decrease in response to pharmacologic therapy, they must correspondingly increase their function. For example, when medication(s) diminishes pain, fatigue or other symptoms by 20%, this should lead to a 20% increase in activity/function. Such an increase in function and activity may result in a continuing reduction in complaints of pain, fatigue, etc. and may also diminish associated depressive and anxiety symptoms. We highly recommend patients make use of the [employer] website, (www.[employer] that provides a self-management program for people living with fibromyalgia. When tested in a trial, this was shown to be quite effective at improving symptoms. - We discussed your chronic pain and nerve pain: - Your symptoms, including widespread pain, sensitivity to touch, and fatigue, are consistent with nerve pain, also referred to as fibromyalgia. This is not an autoimmune condition, and your MRI results were negative for autoimmune-related issues. - I am prescribing Gabapentin to take at night to help with pain and improve sleep. Start with the prescribed low dose, as it may cause side effects such as dizziness or feeling woozy. If you experience side effects or do not notice improvement, let us know. - Aqua therapy is highly recommended as a form of exercise that is gentle on your body and effective for managing pain. I will provide a referral for aqua therapy. Please consider resuming this therapy long-term, as it worked well for you in the past. - It is important to recognize your physical limits and avoid overexertion. For example, use mobility aids like carts when grocery shopping and seek help when needed to prevent worsening pain and fatigue. - Sleep is critical for managing your symptoms. If pain at night continues to interfere with your rest, let us know so we can adjust your treatment plan. We discussed your history of hypermobility: - Your joint hypermobility likely contributes to your chronic pain and nerve sensitivity. This condition is common in families and can lead to long-term joint and nerve issues. Please discourage your children from activities that overextend their joints to prevent similar problems. We discussed your history of antiphospholipid syndrome and lupus anticoagulant: - Continue taking Eliquis as prescribed for blood thinning. While warfarin is typically used for lupus anticoagulant, you have been stable on Eliquis. If any issues arise, we can revisit this. - Down the road, we may consider starting Plaquenil, a medication that can help with lupus anticoagulant and potentially improve some of your symptoms. However, this is not urgent, and we will revisit this option if needed. We discussed your symptoms of interstitial cystitis and irritable bowel syndrome (IBS): - Your bladder symptoms, including urgency and frequency, are consistent with interstitial cystitis, which is nerve-related pain of the bladder. Similarly, your alternating constipation and diarrhea are consistent with IBS, which is nerve-related pain of the bowels. - These conditions are part of the broader nerve pain syndrome and will be addressed as part of your overall treatment plan. We discussed your history of depression and anxiety: - You reported that your depression and anxiety are well-controlled with your current medications, which you have been stable on for four years. No changes are needed at this time. Next steps: - I am referring you to the [facility] for specialized care. They offer individual and group sessions to help manage fibromyalgia and related symptoms. - I am providing a referral for aqua therapy. Please schedule this at a location convenient for you, such as the [facility] or another facility you ve used in the past. - Watch educational videos on fibromyalgia and nerve pain from reputable sources to better understand your condition and how to manage it. - If you experience worsening symptoms, side effects from Gabapentin, or have additional questions, please contact our office. documented in this encounter [facility] 02-17-2025 Note HNO ID: [id number] Author: BRIAN SHELDON MD Service: ? Author Type: Physician Type: Progress Notes Filed: 02/17/2025 15:52 Note Text: Rheumatology FOLLOW UP Date of Service: 02/17/2025 Patient: Cody Santana Medical Record: [id number] Primary Care Physician: Colton Kunz PA-C Last Rheumatology visit: 01/15/2025 (with Pramod Gomez) HPI The patient is a 39-year-old female with antiphospholipid syndrome and chronic pain syndrome, presenting for evaluation and management of refractory widespread musculoskeletal pain. Cody Santana is a 39-year-old female with a history of chronic pain, presenting for evaluation of diffuse pain and hypersensitivity. Cody reports chronic pain since a back sprain during with her youngest daughter, who is now 11 years old. Initially localized to the back, the pain has progressively worsened over the past 5-6 months and now involves the hips, thighs, and upper arms. She describes the pain as constant, 24/7, and exacerbated by certain movements, lifting, twisting, and turning. She experiences significant discomfort even from light touch, such as her cats walking on her or being hugged. Massage provides minimal relief and often increases pain due to underlying irritation and tightness. She notes that by the end of the day, her legs become hypersensitive to touch, and she experiences swelling in her ankles, knees, wrists, and back, particularly after work. Morning stiffness lasts up to an hour but improves with movement. 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 Due to the severity of her pain, she is training someone to take her position and plans to reduce her workload. She also reports numbness and tingling in her toes and various spots on her legs. She denies changes in finger color with cold exposure and has no history of migraines. She experiences intermittent chest discomfort described as a "twitch," lasting 3-5 minutes, primarily noticed at work. She has a history of three TIAs, the first characterized by weakness, feeling "off," and slurred speech, leading to hospitalization. She is currently on Eliquis due to a diagnosis of lupus anticoagulant. She reports dry mouth and a history of dental issues, including cavities and a missing half tooth. She experiences seasonal pruritic rashes due to sun allergy, exacerbated by heat and humidity at work. The rash persists throughout the summer and improves in the fall. She has not been using sunscreen consistently. She has a history of IBS, with alternating constipation and diarrhea, and urinary urgency with occasional incontinence. She denies any history of joint dislocations other than frequent ankle sprains. She reports hypermobility in her thumbs and a family history of hypermobility in her siblings and two oldest children. She has a history of depression and anxiety, well-controlled on stable medication for the past four years. She denies current feelings of depression related to her pain but expresses frustration and a desire for answers and relief. She underwent a cervical fusion two years ago, which alleviated some symptoms but necessitates caution with lifting and movements. She has tried various physical therapies, finding aqua therapy beneficial in the past. She is currently under the care of a rheumatology PA in [place] and recently had an MRI. Pain Evaluation 01/02/2025 01/08/2025 01/15/2025 02/13/2025 02/17/2025 Pain Evaluation Pain Score 5 4 2 3 3 3 Location Generalized Generalized Other: See Comment Back-Lower Description Aching;Dull Aching;Burning;Dull;Itching;Numbne ss;Sharp;Shooting;Sore;Stiffness;T enderness;Ti ghtness;Tingling Aching;Dull;Itching;Sharp;Shooting ;Sore;Stiffness;Tenderness;Tightne ss Aching;Sharp Duration (Timeframe) Years Years Years Frequency Continuous Continuous Continuous Intermittent Intervention Medication;Relaxation;Cold;Heat;Po sitioning Reposition;Relaxation;Cold;Heat Patient-Entered Data PROMIS Assessments 12/04/2024 12/26/2024 01/08/2025 PROMIS Global Health - (T-Scores - the mean of general population = 50. Five points is a clinically meaningful difference.) Physical T-Score 39.8 39.8 39.8 34.9 Mental T-Score 43.5 43.5 43.5 45.8 12/26/2024 01/08/2025 02/13/2025 PROMIS CAT Pain Interference PROMIS Pain Interference T-Score (range: 10 - 90) 68 (moderate) 67 (moderate) PROMIS Pain Interference Percentile 4 4 PROMIS Adult Short Form-Global Health Score (Mental) 43.5 (Good) 45.8 (Good) 12/04/2024 01/08/2025 02/13/2025 PROMIS CAT Fatigue PROMIS Fatigue T-Score 69 (moderate) 66 (moderate) 62 (moderate) PROMIS Fatigue Percentile 3 5 12 12/04/2024 01/08/2025 02/13/2025 PROMIS PHYSICAL FUNCTION T-SCORE PROMIS Physical Function T-Score 33 (moderate dysfunction) 33 (moderate dysfunction) 34 (moderate dysfunction) Physical Function Per (more content not included)... [facility] 02-17-2025 History of Present illness Narrative Images from the original note were not included. Rheumatology FOLLOW UP Date of Service: 02/17/2025 Patient: Cody Santana Medical Record: [id number] Primary Care Physician: Colton Kunz PA-C Last Rheumatology visit: 01/15/2025 (with Pramod Gomez) HPI The patient is a 39-year-old female with antiphospholipid syndrome and chronic pain syndrome, presenting for evaluation and management of refractory widespread musculoskeletal pain. Cody Santana is a 39-year-old female with a history of chronic pain, presenting for evaluation of diffuse pain and hypersensitivity. Cody reports chronic pain since a back sprain during with her youngest daughter, who is now 11 years old. Initially localized to the back, the pain has progressively worsened over the past 5-6 months and now involves the hips, thighs, and upper arms. She describes the pain as constant, 24/7, and exacerbated by certain movements, lifting, twisting, and turning. She experiences significant discomfort even from light touch, such as her cats walking on her or being hugged. Massage provides minimal relief and often increases pain due to underlying irritation and tightness. She notes that by the end of the day, her legs become hypersensitive to touch, and she experiences swelling in her ankles, knees, wrists, and back, particularly after work. Morning stiffness lasts up to an hour but improves with movement. 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 Due to the severity of her pain, she is training someone to take her position and plans to reduce her workload. She also reports numbness and tingling in her toes and various spots on her legs. She denies changes in finger color with cold exposure and has no history of migraines. She experiences intermittent chest discomfort described as a "twitch," lasting 3-5 minutes, primarily noticed at work. She has a history of three TIAs, the first characterized by weakness, feeling "off," and slurred speech, leading to hospitalization. She is currently on Eliquis due to a diagnosis of lupus anticoagulant. She reports dry mouth and a history of dental issues, including cavities and a missing half tooth. She experiences seasonal pruritic rashes due to sun allergy, exacerbated by heat and humidity at work. The rash persists throughout the summer and improves in the fall. She has not been using sunscreen consistently. She has a history of IBS, with alternating constipation and diarrhea, and urinary urgency with occasional incontinence. She denies any history of joint dislocations other than frequent ankle sprains. She reports hypermobility in her thumbs and a family history of hypermobility in her siblings and two oldest children. She has a history of depression and anxiety, well-controlled on stable medication for the past four years. She denies current feelings of depression related to her pain but expresses frustration and a desire for answers and relief. She underwent a cervical fusion two years ago, which alleviated some symptoms but necessitates caution with lifting and movements. She has tried various physical therapies, finding aqua therapy beneficial in the past. She is currently under the care of a rheumatology PA in [place] and recently had an MRI. Pain Evaluation 01/02/2025 01/08/2025 01/15/2025 02/13/2025 02/17/2025 Pain Evaluation Pain Score 5 4 2 3 3 3 Location Generalized Generalized Other: See Comment Back-Lower Description Aching;Dull Aching;Burning;Dull;Itching;Numbne ss;Sharp;Shooting;Sore;Stiffness;T enderness;Tightness;Tingling Aching;Dull;Itching;Sharp;Shooting ;Sore;Stiffness;Tenderness;Tightne ss Aching;Sharp Duration (Timeframe) Years Years Years Frequency Continuous Continuous Continuous Intermittent Intervention Medication;Relaxation;Cold;Heat;Po sitioning Reposition;Relaxation;Cold;Heat Patient-Entered Data PROMIS Assessments 12/04/2024 12/26/2024 01/08/2025 PROMIS Global Health - (T-Scores - the mean of general population = 50. Five points is a clinically meaningful difference.) Physical T-Score 39.8 39.8 39.8 34.9 Mental T-Score 43.5 43.5 43.5 45.8 12/26/2024 01/08/2025 02/13/2025 PROMIS CAT Pain Interference PROMIS Pain Interference T-Score (range: 10 - 90) 68 (moderate) 67 (moderate) PROMIS Pain Interference Percentile 4 4 PROMIS Adult Short Form-Global Health Score (Mental) 43.5 (Good) 45.8 (Good) 12/04/2024 01/08/2025 02/13/2025 PROMIS CAT Fatigue PROMIS Fatigue T-Score 69 (moderate) 66 (moderate) 62 (moderate) PROMIS Fatigue Percentile 3 5 12 12/04/2024 01/08/2025 02/13/2025 PROMIS PHYSICAL FUNCTION T-SCORE PROMIS Physical Function T-Score 33 (moderate dysfunction) 33 (moderate dysfunction) 34 (moderate dysfunction) Physical Function Percentile 4 4 5 RAPID 3 [place] Activities of Daily Living 02/13/2025 9:28 AM 12/26/2024 8:25 PM 12/04/2024 10:06 PM Dress self? With SOME difficulty Without ANY difficulty Without ANY difficulty Get in and out of bed? With SOME difficulty Without ANY difficulty Without ANY difficulty Walk outdoors? Without ANY difficulty Without ANY difficulty Without ANY difficulty Wash and dry body? Without ANY difficulty Without ANY difficulty Without ANY difficulty Get in and out of car? With SOME difficulty With SOME difficulty With SOME difficulty RAPID 3 Disease Activity Weighed Score Levels: 0 - 1: Near Remission 1.3 - 2.0: Low Severity 2.3 - 4.0: Moderate Severity 4.3 - 10.0: High Severity 12/04/2024 12/26/2024 02/13/2025 RAPID-3 Weighed Score RAPID 3 Weighed Score 3 (Moderate severity ) 3 (Moderate severity ) 2.67 (Moderate severity ) 02/13/2025 RAPID-3 Weighed Score Percentage Change Compared to Last Score -11 Review of Systems Review of Systems CONSTITUTION: Negative for: Fever and Recent weight change HEENT: Positive for: Dry mouth Negative for: Nosebleeds, Mouth sores and Trouble swallowing RESPIRATORY: Negative for: Cough, Shortness of breath and Pain with breathing GASTROINTESTINAL: Negative for: Melena, Diarrhea, Heartburn and Abdominal pain MUSCULOSKELETAL: Positive for: Arthralgias, Myalgias, Muscle weakness, Joint swelling and Morning Joint Stiffness NEUROLOGICAL: Positive for: Headaches, Numbness and Memory loss SKIN: Positive for: Rash and Sun Sensitive Rash Negative for: Skin changes, Hair loss and Nail changes EYES: Negative for: Eye pain, Eye redness, Eye dryness and visual disturbance CARDIOVASCULAR: Positive for: Leg swelling Negative for: Chest pain GENITOURINARY: Negative for: Dysuria and Hematuria HEMATOLOGIC/LYMPHATIC: Negative for: Swollen glands Past Medical History PAST MEDICAL HISTORY Diagnosis [...] Grandfather Ovarian cancer Paternal Grandmother Social History SOCIAL HISTORY[1] Current Medications Current Outpatient Medications Medication Sig erenumab-aooe (AIMOVIG AUTOINJECTOR) 70 mg/mL auto-injector Inject 1 mL subcutaneously once every month. chlorzoxazone (PARAFON FORTE DSC) 500 mg tablet Take 1 tablet (500 mg) by mouth four times a day until headache free for 24 hours or take for full 5 days. lidocaine (LIDODERM) 5 % Apply 1 Patch [...] mg by mouth as needed (for anxiety). gabapentin (NEURONTIN) 100 mg capsule Take 1 capsule by mouth daily at bedtime for 30 days. Labs and Imaging Labs: - Lupus anticoagulant: Positive - Sj gren's antibody: Slightly positive Imaging: - MRI (sacroiliac region): Negative - CT scans: Evidence of stroke/TIA Latest Ref Rng & Units 01/15/2025 CBC WBC 3.70 - 11.00 k/uL 10.41 Hemoglobin 11.5 - 15.5 g/dL 12.3 Hematocrit 36.0 - 46.0 % 36.6 Platelet Count 150 - 400 k/uL 191 Abs Neut (ANC) 1.45 - 7.50 k/uL 5.97 Abs Lymph 1.00 - 4.00 k/uL 3.57 Latest Ref Rng & Units 01/15/2025 CMP Sodium 136 - 144 mmol/L 139 Potassium 3.7 - 5.1 mmol/L 3.9 Chloride 98 - 107 mmol/L 111 CO2 22 - 30 mmol/L 18 Glucose 74 - 99 mg/dL 92 BUN 7 - 21 mg/dL 13 Creatinine 0.58 - 0.96 mg/dL 0.85 Calcium 8.5 - 10.2 mg/dL 9.1 AST 13 - 35 U/L 14 ALT 7 - 38 U/L 13 Alkaline Phosphatase 34 - 123 U/L 42 Latest Ref Rng & Units 01/02/2025 ESR, WSR WSR 0 - 20 mm/hr 17 Latest Ref Rng & Units 01/02/2025 CRP CRP <0.9 mg/dL <0.3 Latest Ref Rng & Units 01/02/2025 C3, C4 C3 86 - 166 mg/dL 124 C4 13 - 46 mg/dL 16 Latest Ref Rng & Units 06/23/2023 CARLOS CARLOS <=52 U/L 19 Latest Ref Rng & Units 01/02/2025 RF and CCP Rheumatoid Factor <16 IU/mL <10 CCP Antibody IgG Qualitative Negative Negative CCP Antibody, IgG <20 Units <15 Latest Ref Rng & Units 06/23/2023 06/21/2024 01/02/2025 Antibodies ALFONZO Negative Negative Positive ALFONZO Titer 1:160 ALFONZO Pattern Nuclear homogeneous ALFONZO PATTERN 2 Cytoplasmic fine speckled DNA Antibody <=200 IU/mL 32 Anti-Sm <1.0 AI <0.2 Sm Antibody Negative Negative Ribosomal COMMUNITY EDUCATION SPECIALIST Ab <1.0 AI <0.2 Ribosomal COMMUNITY EDUCATION SPECIALIST Qualitative Negative Negative Chromatin Ab <1.0 AI <0.2 Chromatin Ab Qual Negative Negative SSA Antibody Qual Negative Positive Anti-SSA <1.0 AI 1.8 Anti-SSB <1.0 AI <0.2 COMMUNITY EDUCATION SPECIALIST Antibody QUAL Negative Negative Scleroderma Ab Qual Negative Negative Scl-70 Abs, EIA <1.0 AI <0.2 Centromere Ab <1.0 AI <0.2 CENTROMERE AB QUAL Negative Negative LINETTE-1 ANTIBODY, IGG <1.0 AI <0.2 LINETTE 1 ANTIBODY QUAL Negative Negative Beta 2 Glycoprotein, IgM <20 SMU <9 Cardiolipin Ab, IgG <15.0 GPL <9.0 Cardiolipin Ab, IgM <12.5 MPL 10.8 Cardiolipin Ab, IgA <12.0 APL <9.0 PT Sec <13.1 sec 10.7 PT INR 0.9 - 1.3 1.0 APTT 23.0 - 32.4 sec 27.9 APTT Screen 24.0 - 35.1 seconds 34.3 Thrombin Time <18.6 seconds 18.5 Anti Xa Inhib Assay <0.10 0.85 Latest Ref Rng & Units 01/02/2025 Urinalysis Protein, Urine Negative Negative RBC, Urine 0-2 /HPF 0-2 /HPF Protein/Creat Ratio <0.15 mg/mg 0.31 Imaging Last XR Chest - Impression Only XR CHEST 2V FRONTAL/LAT Exam End: 07/18/2024 2:35 PM (Final result) Impression: IMPRESSION: No acute radiographic abnormality. Car Tracer: LUDIVINA Transcribe Date/Time: Jul 18 2024 3:00P... Physical Exam Constitutional: - Appearance: Normal appearance. No acute distress. HENT: - Head: Atraumatic. - Eyes: - Extraocular Movements: Extraocular movements intact. - Conjunctiva/sclera: Conjunctivae normal. - Pupils: Pupils are equal, round, and reactive to light. Cardiovascular: - Rate and Rhythm: Normal rate and regular rhythm. - Pulses: Normal pulses. - Heart sounds: Normal heart sounds. Pulmonary: - Breath sounds: Normal breath sounds. Musculoskeletal: - Hypermobile joints. - Cervical back: Normal range of motion. - No peripheral synovitis - Shoulders FROM no effusion - Elbows FROM no effusion - Wrists FROM no effusion, tenderness to palpation - Hands good oil scout, MCP,PIP, DIP no swelling or tenderness - Hips FROM, tenderness to palpation - Knees FROM no effusion, tenderness to palpation - Ankles FROM no effusion, tenderness to palpation - Feet no MTP squeeze tenderness - Tenderness to palpation in bilateral upper arms, anterior chest wall, lower extremities, and back Skin: - General: Skin is warm and dry. Neurological: - General: No focal deficit present. Hyperesthesia in bilateral upper arms, anterior chest wall, lower extremities, back, wrists, knees, ankles, and hips. Psychiatric: - Mood and Affect: Mood normal. - Behavior: Behavior normal. 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 MRI of the sacroiliac joints was negative for sacroiliitis. Symptoms include IBS with constipation and interstitial cystitis, both commonly associated with fibromyalgia. - Start gabapentin at bedtime for neuropathic pain and to improve sleep; discussed potential side effects including dizziness, somnolence, and edema. - Refer to fibromyalgia clinic for comprehensive management, including group sessions. - Refer to aquatherapy; advised this as the preferred form of exercise. - Educated on the importance of self-recognition of limits, activity modification, and use of assistive devices (e.g., carts for shopping) to minimize pain exacerbation. - Provided educational resources, including YouTube videos by pain specialists, to reinforce that fibromyalgia is a real, biologically-based condition. 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 However I think majority of her symptoms are central sensitization - will follow up in 5 months # Antiphospholipid syndrome (HCC) (D68.61) History of lupus anticoagulant positivity and multiple TIAs; currently on Eliquis. - Discussed that warfarin is the preferred anticoagulant for antiphospholipid syndrome, but patient has been stable on Eliquis. - Discussed that Plaquenil may be considered in the future, as it is sometimes used as adjunctive therapy in antiphospholipid syndrome. I spent a total of 50 minutes on the date of the service which included preparing to see the patient, [id number] patient care, completing clinical documentation, obtaining and/or reviewing separately obtained history, performing a medically appropriate examination, counseling and educating the patient/family/caregiver, ordering medications, tests, or procedures, communicating with other HCPs (not separately reported), independently interpreting results (not separately reported), communicating results to the patient/family/caregiver, and care coordination (not separately reported). Orders this visit: Office Visit on 02/17/25 [facility]ULT TO [facility]) *Canceled* CONSULT TO PHYSICAL THERAPY *Canceled* CONSULT TO [facility] ([facility]RON[facility] PA[facility]) CONSULT TO PHYSICAL THERAPY gabapentin (NEURONTIN) 100 mg capsule *Discontinued* gabapentin (NEURONTIN) 100 mg capsule Return in about 5 months (around 07/20/2025) for Follow up, virtual. Brian Sheldon MD Associate Staff Department of Rheumatic and Immunological Diseases Office number: [phone] - Fax number: [phone] - Appointment: [phone] [1] Social History Tobacco Use Smoking status: Every Day Current packs/day: 1.00 Average packs/day: 1 pack/day for 22.2 years (22.2 ttl pk-yrs) Types: Cigarettes Start date: 12/17/2002 Smokeless tobacco: Never Vaping Use Vaping status: Some Days Substances: Nicotine Devices: Disposable Substance Use Topics Alcohol use: Not Currently Drug use: Not Currently documented in this encounter [facility] 01-31-2025 History of Present illness Narrative Radiology Service Progress Note PATIENT NAME: Cody Santana DATE OF SERVICE: January 31, 2025 TIME: 12:05 PM PATIENT IDENTITY VERIFICATION COMPLETED USING TWO [...] PATIENT PRESENTS WITH AN IMPLANTABLE OR ATTACHED OCEAN EXPORT ACCOUNT MANAGER: No RADIOLOGY DEPARTMENT: MR; Exam(s) Completed: Lower MSK: Pelvis, bilateral. Aromatherapy Administered: No PERIPHERAL IV DATA: Not applicable SIGNED BY: RT Heriberto(R) January 31, 2025 12:05 PM documented in this encounter [facility] 01-31-2025 Note HNO ID: [id number] Author: ELEAZAR MUNGUIA RT(Lisa) Service: ? Author Type: Technologist Type: Progress Notes Filed: 01/31/2025 12:05 Note Text: Radiology Service Progress Note PATIENT NAME: Cody Santana DATE OF SERVICE: January 31, 2025 TIME: 12:05 PM PATIENT IDENTITY VERIFICATION COMPLETED USING TWO [...] PATIENT PRESENTS WITH AN IMPLANTABLE OR ATTACHED OCEAN EXPORT ACCOUNT MANAGER: No RADIOLOGY DEPARTMENT: MR; Exam(s) Completed: Lower MSK: Pelvis, bilateral. Aromatherapy Administered: No PERIPHERAL IV DATA: Not applicable SIGNED BY: RT Heriberto(R) January 31, 2025 12:05 PM [facility] 01-30-2025 Radiology Diagnostic study note [facility] Imaging Services [address] [place] [address] [id number] HIP, UNI W/ Pelvis 2-3 Views MR#: [id number] Acct: [id number] Name: CODY SANTANA Rep #: [id number] : 1985 F 39 From: Edw hayes Noel MD PCP: Colton Kunz PA-C Status: REG E R Study:HIP, UNI W/ Pelvis 2-3 Views Date of Ex am: 01/30/25 Exam# [id number] Ordering Dr: Tamela Wilkerson MD PROCEDURE: HIP, UNI W/ PELVIS 2-3 VIEWS 01/30/2025 REASON FOR EXAM: INJURY TECHNIQUE: HIP, UNI W/ PELVIS 2-3 VIEWS Laterality: Right COMPARISON: None FINDINGS: Bones: No fracture Joints: Normal alignment. Soft tissues: Soft tissues are unremarkable. RAD/HIP, UNI W/ Pelvis 2-3 Views IMPRESSION: No acute abnormality Reading Location: [id number] CC: THERON Kunz; Dr. Luis Wilkerson MD ~ Car Tracer: Signed [facility] 01-20-2025 Telephone encounter Note Physician: Escobedo Call from patient requesting refill. Please E-Scribe Last OV: 10/25/2024 with Escobedo Future OV: 02/20/2025 with [place] Requested Prescriptions Pending Prescriptions Disp Refills erenumab-aooe (AIMOVIG AUTOINJECTOR) 70 mg/mL auto-injector 3 mL 0 Sig: Inject 1 mL subcutaneously once every month. Pharmacy Name: [facility] 01-20-2025 Miscellaneous Notes Physician: Escobedo Call from patient requesting refill. Please E-Scribe Last OV: 10/25/2024 with Escobedo Future OV: 02/20/2025 with [place] Requested Prescriptions Pending Prescriptions Disp Refills erenumab-aooe (AIMOVIG AUTOINJECTOR) 70 mg/mL auto-injector 3 mL 0 Sig: Inject 1 mL subcutaneously once every month. [facility]: [facility] documented in this encounter [facility] 01-15-2025 Note HNO ID: [id number] Author: PRAMOD GOMEZ PA-C Service: ? Author Type: Physician Hand Spring Repairer Type: Progress Notes Filed: 01/15/2025 16:34 Note [...] No known SLE, IBD, PsO Great grandmother [place] Palsy SOCIAL HISTORY: Currently smoking less than 1 pack per day ETOH None Marijuana - none Single 3 kids Working at [employer] for [employer] Tobacco: Tobacco Use: High Risk (01/02/2025) Patient [...] month. lidocaine (LI (more content not included)... [facility] 01-11-2025 History of Present illness Narrative Radiology [...] PATIENT PRESENTS WITH AN IMPLANTABLE OR ATTACHED OCEAN EXPORT ACCOUNT MANAGER: No RADIOLOGY DEPARTMENT: General X-ray: Exam(s) Completed: Lower Extremity X-Ray(s): Ankle, Right PERIPHERAL IV DATA: Not applicable SIGNED BY: RT Inés(Lisa) January 11, 2025 2:48 PM documented in this encounter [facility] 01-11-2025 Note HNO ID: [id number] Author: NOLA MCCURDY RT(R) Service: ? Author [...] PATIENT PRESENTS WITH AN IMPLANTABLE OR ATTACHED OCEAN EXPORT ACCOUNT MANAGER: No RADIOLOGY DEPARTMENT: General X-ray: Exam(s) Completed: Lower Extremity X-Ray(s): Ankle, Right PERIPHERAL IV DATA: Not applicable SIGNED BY: RT Inés(R) January 11, 2025 2:48 PM [facility] 01-11-2025 Note HNO ID: [id number] Author: JAY DELGADO APRN.TITLE ABSTRACTOR Service: ? Author Type: Nurse Practitioner Type: Progress Notes Filed: 01/11/2025 15:17 Note Text: Sarath Santana is a 39 year old [...] She will otherwise follow-up with 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 - XR ANKLE GENERAL 3V AP/LAT/OBL RIGHT - PREDNISONE 50 MG TABLET Jay Delgado APRN.CNP [facility] 01-11-2025 History of Present illness Narrative Sarath [...] She will otherwise follow-up with 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 - XR ANKLE GENERAL 3V AP/LAT/OBL RIGHT - PREDNISONE 50 MG TABLET Jay Delgado APRN.KOLE documented in this encounter [facility] 01-08-2025 Telephone encounter Note Not established with any provider May schedule sooner with any available provider [facility] 01-08-2025 Telephone encounter Note ----- Message [...] , it is OK to leave message [phone] (home) [phone] (cell) Payor: [place] MEDICAID / Plan: [facility] [place] MEDICAID / Product Type: Medicaid / [place] [facility] 01-08-2025 Miscellaneous Notes Not established with [...] , it is OK to leave message [phone] (home) [phone] (cell) Payor: [place] MEDICAID / Plan: [facility] / Product Type: Medicaid / [place] documented in this encounter [facility] 01-02-2025 History of Present illness Narrative Images from the original note were not included. Rheumatology CONSULTATION Date of Service: 01/02/2025 Patient: Cody Santana Medical Record: [id number] Primary Care Physician: Celina Kunz Last Rheumatology visit: None at [facility] Referring Provider: Local orthopedist, no referral on file, patient unsure provider Recording using ambient [employer] software for draft documentation of the visit was discussed with the patient/authorized b2b outside sales representative; all questions welcomed and answered. Patient/authorized b2b outside sales representative agreed to proceed History of Present Illness [...] occasional History of prednisone use, she feels "amazing" but symptoms return after discontinuation. Cody Santana [...] use. She is single and works for [employer]. Cody has a family history of RA in her father and Paiz's palsy in her great-grandmother. She is on multiple medications, including Aimovig, lidocaine, Robaxin, Nurtec, albuterol, Depo-Provera, Eliquis, Zyrtec, vitamin D, Celexa, famotidine, Lamictal, Singulair, nystatin, Topamax, haloperidol, and Paraffin Forte. She is due for an eye exam and has not seen a cook morning. Pain Evaluation 12/04/2024 12/17/2024 12/26/2024 12/31/2024 01/02/2025 [...] Function Percentile 21 7 4 RAPID 3 [place] Activities of Daily Living 12/26/2024 8:25 PM [...] No known SLE, IBD, PsO Great grandmother [place] Palsy Social History Social History Tobacco Use [...] - none Single 3 kids Working at [employer] Current Medications Current Outpatient Medications Medication Sig [...] result) Impression: IMPRESSION: No acute radiographic abnormality. Car Tracer: LUDIVINA Transcribe Date/Time: Jul 18 2024 3:00P... [...] Full ROM in flexion and extension. Full oil scout strength. No swelling or synovitis along the [...] dermatology Orders this visit: Office Visit on 07/24/25 XR HIP GENERAL 3V PELV/AP/LAT RIGHT XR [...] which included preparing to see the patient, [id number] patient care, completing clinical documentation, obtaining and/or reviewing separately obtained history, performing a medically appropriate examination, counseling and educating the patient/family/caregiver, ordering medications, tests, or procedures, communicating with other HCPs (not separately reported), independently interpreting results (not separately reported), and communicating results to the patient/family/caregiver. ___ Pramod Gomez PA-C Rheumatology Date: January 02, 2025 Time: 4:27 PM documented in this encounter [facility] 01-02-2025 Note HNO ID: [id number] Author: PRAMOD GOMEZ PA-C Service: ? Author Type: Physician Hand Spring Repairer Type: Progress Notes Filed: 01/02/2025 16:28 Note Text: Rheumatology CONSULTATION Date of Service: 01/02/2025 Patient: Cody Santana Medical Record: [id number] Primary Care Physician: Celina Kunz Last Rheumatology visit: None at [facility] Referring Provider: Local orthopedist, no referral on file, patient unsure provider Recording using Dr Lal [employer] software for draft documentation of the visit was discussed with the patient/authorized b2b outside sales representative; all questions welcomed and answered. Patient/authorized b2b outside sales representative agreed to proceed History of Present Illness [...] occasional History of prednisone use, she feels "amazing" but symptoms return after discontinuation. Cody Santana [...] use. She is single and works for [employer]. Cody has a family history of RA in her father and Paiz's palsy in her great-grandmother. She is on multiple medications, including Aimovig, lidocaine, Robaxin, Nurtec, albuterol, Depo-Provera, (more content not included)... [facility] 01-01-2025 History of Present illness Narrative Images from the original note were not included. [facility] FOLLOWUP/ESTABLISHED VIRTUAL PATIENT VISIT I have communicated my name and active licensure. The patient's identity and physical location were verified at the time of this visit. Either the patient or their legal b2b outside sales representative has been informed of the risks [...] Flowsheet Row Office Visit from 12/18/2024 in [facility] Upper Extremity Domain T Score 36 Lower Extremity Domain T Score 39 Cognitive Function Domain T Score 33 Positive Affect Well Being T Score -- Ability To Participate In Social Roles T Score 38 Satisfaction With Social Roles T Score 36 Neuro-QoL Symptoms (higher=worse symptoms) Flowsheet Row Office Visit from 12/18/2024 in [facility] Sleep Domain T Score 67 Fatigue Domain T Score 63 Anxiety Domain T Score 48 Depression Domain T Score 47 Stigma Domain T Score 60 Emotional Behavior Dyscontrol T Score -- has a past medical history of Bipolar affective ([facility]), DVT (deep venous thrombosis) ([facility]), Migraine, and Pulmonary embolism ([facility]). has a current medication list which includes the following prescription(s): chlorzoxazone, aimovig autoinjector, lidocaine, methocarbamol, nurtec odt, albuterol hfa, medroxyprogesterone, eliquis, cetirizine, cholecalciferol, citalopram, famotidine, lamotrigine, montelukast, nystatin, topiramate, and haloperidol. EXAM: LMP (LMP Unknown) MSPT Results Flowsheet Row [facility] [facility] Processing Speed Total Number Correct 54 Processing [...] lesions. Overall, low index of suspicion for PROGRAMMING INSTRUCTOR inflammatory disease as etiology for abnormal MRI [...] which included preparing to see the patient, tyna-fw-dmpu patient care, completing clinical documentation, obtaining and/or reviewing separately obtained history, performing a medically appropriate examination, and counseling and educating the patient/family/caregiver. Nick Rachel MD [facility] CC: Janet Chiujohn documented in this encounter [facility] 01-01-2025 Note HNO ID: [id number] Author: NICK RACHEL MD Service: ? Author Type: Physician Type: Progress Notes Filed: 01/01/2025 14:07 Note Text: [facility] FOLLOWUP/ESTABLISHED VIRTUAL PATIENT VISIT I have communicated my name and active licensure. The patient's identity and physical location were verified at the time of this visit. Either the patient or their legal b2b outside sales representative has been informed of the risks [...] Flowsheet Row Office Visit from 12/18/2024 in [facility] Upper Extremity Domain T Score 36 Lower Extremity Domain T Score 39 Cognitive Function Domain T Score 33 Positive Affect Well Being T Score -- Ability To Participate In Social Roles T Score 38 Satisfaction With Social Roles T Score 36 Neuro-QoL Symptoms (higher=worse symptoms) Flowsheet Row Office Visit from 12/18/2024 in [facility] Sleep Domain T Score 67 Fatigue Domain T Score 63 Anxiety Domain T Score 48 Depression Domain T Score 47 Stigma Domain T Score 60 Emotional Behavior Dyscontrol T Score -- has a past medical history of Bipolar affective ([facility]), DVT (deep venous thrombosis) ([facility]), Migraine, and Pulmonary embolism ([facility]). has a current medication list which includes the following prescription(s): chlorzoxazone, aimovig autoinjector, lidocaine, methocarbamol, nurtec odt, albuterol hfa, medroxyprogesterone, eliquis, cetirizine, cholecalciferol, citalopram, famotidine, lamotrigine, montelukast, nystatin, topiramate, and haloperidol. EXAM: LMP (LMP Unknown) MSPT Results Flowsheet Row Office Visit from 12/18/2024 in [facility] Processing Speed Total Number Correct 54 Processing [...] lesions. Overall, low index of suspicion for PROGRAMMING INSTRUCTOR inflammatory disease as etiology for abnormal MRI brain or symptoms. Suspect progression in WM lesions could be in the context of ageing, migrain (more content not included)... [facility] 12-30-2024 History of Present illness Narrative Radiology [...] PATIENT PRESENTS WITH AN IMPLANTABLE OR ATTACHED OCEAN EXPORT ACCOUNT MANAGER: No ALLERGIES: Reviewed and unchanged CONTRAST ALLERGY: [...] TIME: 2:36 PM documented in this encounter [facility] 12-30-2024 Note HNO ID: [id number] Author: JAYDE BROWNE RT(R) Service: ? Author [...] PATIENT PRESENTS WITH AN IMPLANTABLE OR ATTACHED OCEAN EXPORT ACCOUNT MANAGER: No ALLERGIES: Reviewed and unchanged CONTRAST ALLERGY: NO. EXAM: MRI - CONTRAST TYPE: GROUP II PERIPHERAL IV DATA: Ambulatory: A peripheral IV was started in the Right upper extremity with a Angio cath: 22 gauge. RADIOLOGY DEPARTMENT: MR; Exam(s) Completed: Spine: Cervical spine. Aromatherapy Administered: No SIGNATURE: RT Gokul(R) PATIENT NAME: Cody Santana DATE: December 30, 2024 TIME: 2:36 PM [facility] 12-18-2024 Instructions Nick Rachel MD - 12/18/2024 3:16 PM EDT I would recommend a virtual visit with me after your next set of MRIs to discuss the results. documented in this encounter [facility] 12-18-2024 History of Present illness Narrative Images from the original note were not included. [facility] NEW PATIENT EVALUATION/CONSULTATION Referral source: Janet Chiu [address] [id number] Also followed by: Patient Care Team: Neli Tripp, TITLE ABSTRACTOR as PCP - General (Family Medicine) PRINCIPAL [...] The patient consented to the use of [employer] software for draft documentation of the visit, consistent with [facility] s Notice of Privacy Practices. Patient is currently being evaluated by general neurology, headache neurology, and cerebrovascular center. Cody reports that her symptoms began in March 2023 with a sudden onset of weakness, dizziness, and a sensation of impending collapse while at work. She describes feeling "spaced out" and unable to speak or comprehend fully, [...] and she notes that she has been "stuck" in positions where she cannot move without [...] Flowsheet Row Office Visit from 12/18/2024 in [facility] Upper Extremity Domain T Score 36 Lower Extremity Domain T Score 39 Cognitive Function Domain T Score 33 Positive Affect Well Being T Score -- Ability To Participate In Social Roles T Score 38 Satisfaction With Social Roles T Score 36 Neuro-QoL Symptoms (higher=worse symptoms) Flowsheet Row Office Visit from 12/18/2024 in [facility] Sleep Domain T Score 67 Fatigue Domain T Score 63 Anxiety Domain T Score 48 Depression Domain T Score 47 Stigma Domain T Score 60 Emotional Behavior Dyscontrol T Score -- PAST HISTORY: has a past medical history of Bipolar affective ([facility]), DVT (deep venous thrombosis) ([facility]), Migraine, and Pulmonary embolism ([facility]). has a past surgical history that includes [...] 109/68 Pulse 108 Ht 160 cm (5' 3") Wt 88.5 kg (195 lb) LMP (LMP [...] the arms and legs was performed including mvwkw-iu-repyn, rapid-alternating, and fine movements. Rapid movements were [...] syndrome. Overall, low index of suspicion for PROGRAMMING INSTRUCTOR inflammatory disease as etiology for abnormal MRI [...] cessation. Office Visit on 12/18/24 CONSULT TO [facility] The chart was reviewed for possible participation in the following studies: None I spent a total of 60 minutes on the date of the service which included preparing to see the patient, [id number] patient care, completing clinical documentation, obtaining and/or reviewing separately obtained history, performing a medically appropriate examination, counseling and educating the patient/family/caregiver, and ordering medications, tests, or procedures. Nick Rachel MD [facility] documented in this encounter [facility] 12-18-2024 Note HNO ID: [id number] Author: NICK RACHEL MD Service: ? Author Type: Physician Type: Progress Notes Filed: 12/18/2024 15:32 Note Text: [facility] NEW PATIENT EVALUATION/CONSULTATION Ref[place] source: [address] [phone] Also followed by: Patient Care Team: Neli Tripp TITLE ABSTRACTOR as PCP - General (Family Medicine) PRINCIPAL [...] The patient consented to the use of [employer] software for draft documentation of the visit, consistent with [facility]?s Notice of Privacy Practices. Patient is currently being evaluated by general neurology, headache neurology, and cerebrovascular center. Cody reports that her symptoms began in March 2023 with a sudden onset of weakness, dizziness, and a sensation of impending collapse while at work. She describes feeling "spaced out" and unable to speak or comprehend fully, [...] and she notes that she has been "stuck" in positions where she cannot move without [...] Flowsheet Row Office Visit from 12/18/2024 in [facility] Upper Extremity Domain T Score 36 Lower Extremity Domain T Score 39 Cognitive Function Domain T Score 33 Positive Affect Well Being T Score -- Ability To Participate In Social Roles T Score 38 Satisfaction With Social Roles T Score 36 Neuro-QoL Symptoms (higher=worse symptoms) Flowsheet Row Office Visit from 12/18/2024 in [facility] Sleep Domain T Score 67 Fatigue Domain T Score 63 Anxiety Domain T Score 48 Depression Domain T Score 47 Stigma Domain T Score 60 Emotional Behavior Dyscontrol T Score -- PAST HISTORY: has a past medical history of Bipolar affective (H[facility]), DVT (deep venous thrombosis) ([facility]), Migraine, and Pulmonary embolism ([facility]). has a past surgical history that includes revise median n/carpal tunnel surg (Bilateral, 2016). has a current medication list which includes the following presc (more content not included)... [facility] 11-14-2024 History of Present illness Narrative Images from the original note were not included. [facility] [place] Follow-up Visit Follow-up note November 14, 2024 [...] B/B, tongue/cheek bite. Previous workup completed through [facility] included MRI brain, CTA head/neck, and echocardiogram. [...] noted slurred/garbled speech. Workup was completed through [facility] at that time including CT brain, CTA [...] records review on 10/31/24: Records received from [facility] and reviewed as below: Patient [...] CT and MRI performed, with CT showing "dots" of unknown etiology. Symptoms of dysphasia and [...] initiated prior authorization process; sent prescription to [facility] in [facility]. Discussed [facility] home delivery to expedite the process but patients insurance will only cover it being sent to [facility]. - Prescribed Parafon Forte 500 mg TID [...] results. States something with MRI results showed "spots" but they are not sure what they [...] uncomfortable. Has an appointment with rheum because [facility] recommended this. Had positive testing (?). [...] kg (192 lb) Height: 157.5 cm (5' 2") Patient is alert and in no distress. [...] Finger Abduction (U/T1) 5 Finger Abduction 5 Rubberizing Mechanic 5 Rubberizing Mechanic 5 Right Lower Extremity: (of 5) Left [...] DATE OF EXAM: May 16 2023 4:13PM [facility] 0295 - MRI BRAIN WO/W IVCON / [...] a copy of the MRI disc from [facility] and deliver it to the [facility] office for upload to the chart. - Ordered MRIs of the cervical and thoracic spine to investigate potential demyelinating lesions. - Will review MRI images once uploaded; should changes be nonspecific may consider deferring MRI spine. - If findings are concerning for MS, will refer to a [facility] provider in [place] for further evaluation. 2. Migraine without aura and without status migrainosus, not intractable (G43.009) Facial weakness (R29.810) Facial numbness (R20.0) Speech disturbance, unspecified type (R47.9) History of TIA (transient ischemic attack) (Z86.73) Patient experienced an episode of difficulty with speech and numbness from the waist down, lasting approximately 1.5 hours. Also reported feeling "spacey" and noted differences in sensation in the left leg and arm. She was admitted to [facility] (see course above) where stroke workup was [...] MRI THORACIC SPINE WO/W IVCON Janet Fernandez APRN.TITLE ABSTRACTOR I spent a total of 40 minutes on the date of the service which included preparing to see the patient, heyx-gj-vzli patient care, completing clinical documentation, obtaining and/or reviewing separately obtained history, performing a medically appropriate examination, counseling and educating the patient/family/caregiver, and ordering medications, tests, or procedures. documented in this encounter [facility] 11-14-2024 Note HNO ID: [id number] Author: JANET FERNANDEZ APRN.TITLE ABSTRACTOR Service: ? Author Type: Nurse Practitioner Type: Progress Notes Filed: 11/14/2024 12:02 Note Text: [facility] [place] Follow-up Visit Follow-up note November 14, 2024 [...] B/B, tongue/cheek bite. Previous workup completed through [facility] included MRI brain, CTA head/neck, and echocardiogram. [...] noted slurred/garbled speech. Workup was completed through [facility] at that time including CT brain, CTA [...] records review on 10/31/24: Records received from [facility] and reviewed as below: Patient [...] time of the event as noted below. Abdoul Escobedo PA-C on 10/25/24: IMPRESSION: Cody Santana is a 39 year old year old female, with a history of chronic migraines, anxiety, bipolar disorder, (more content not included)... [facility] 10-31-2024 Note HNO ID: [id number] Author: JANET FERNANDEZ APRN.TITLE ABSTRACTOR Service: ? Author Type: Nurse Practitioner Type: Progress Notes Filed: 10/31/2024 11:24 Note Text: Records received from [facility] and reviewed as below: Patient [...] Hospital records to be scanned to chart. [facility] 10-25-2024 Instructions Antwon Escobedo PA-C - 10/25/2024 9:43 AM EDT Aimovig 70 mg (migraine preventive): A prior authorization has been submitted and your refill will be sent to your [facility] pharmacy. Use one injection once a month [...] your upcoming neurology appointment on the in [place]. If your headache continues after finishing the [...] taking this medication. documented in this encounter [facility] 10-25-2024 History of Present illness Narrative [...] visit. Either the patient or their legal b2b outside sales representative has been informed of the risks [...] vomited. She notes that the migraine is "weighing on her." She has been using Nurtec as needed [...] occurred. During the hospitalization, she received a "headache cocktail" that provided only temporary relief ( Unsure [...] and her oldest child being away in [place] for a month. She believes these stressors [...] spontaneous and fluent without dysarthria. Short and intermediate designer memory, cognition and general fund of knowledge [...] CT and MRI performed, with CT showing "dots" of unknown etiology. Symptoms of dysphasia and [...] initiated prior authorization process; sent prescription to [facility] in [facility]. Discussed [facility] home delivery to expedite the process but patients insurance will only cover it being sent to [facility]. - Prescribed Parafon Forte 500 mg TID [...] time Follow-up: 3 months and call office ([phone]) with problems or concerns before appointment Level of Service: Virtual Visit 31 [address]ording using Dr Lal [employer] software for draft documentation of the visit was discussed with the patient/authorized b2b outside sales representative; all questions welcomed and answered. Patient/authorized b2b outside sales representative agreed to proceed This note was partially generated using [employer] voice recognition system, and there may be some incorrect words, spellings, and punctuation that were not noted in checking the note before saving. Antwon Escobedo PA-C Headache Section [facility] 2024 documented in this encounter [facility] 10-25-2024 Note HNO ID: [id number] Author: ANTWON ESCOBEDO PA-C Service: ? Author Type: Physician Hand Spring Repairer Type: Progress Notes Filed: 10/25/2024 09:44 Note [...] visit. Either the patient or their legal b2b outside sales representative has been informed of the risks [...] vomited. She notes that the migraine is "weighing on her." She has been using Nurtec as needed [...] occurred. During the hospitalization, she received a "headache cocktail" that provided only temporary relief ( Unsure [...] and her oldest child being away in [place] for a month. She believes these stresso (more content not included)... [facility] 10-23-2024 Consult note [facility] 10-23-2024 Discharge summary [facility] 10-23-2024 Note [facility] Medical Records Department [address] [place] [address] Discharge Summary 10/23/24 1535 MR#: [id number] Acct: [id number] Name: CODY SANTANA Rep #: [id number] : 1985 38 From: Taye Delvalle MD PCP: Care Physician,No Primary Status:ADM MARGY Location: [address] [address] Providers Date of Admission: 10/22/24 Date of [...] patient states that she follows neurologist in [place] and she had MRI brain with and [...] baseline. She follows her own neurologist in [place] Mild chronic anemia: No acute issues History [...] with her own neurologist she has to pickle sorter her daughter. Discharge medication reconciliation done. Discharge [...] 150 mg/mL intramuscular syringe 150 mg IM .[id number] control 01/30/15 citalopram 40 mg tablet 40 [...] intranasal DAILY 03/15/23 (more content not included)... [facility] 10-23-2024 Discharge summary [facility] 10-23-2024 History and physical note Note Date/Time October 23, 2024 12:36am [facility] Medical Records Department [address] [place] [address] H&P Exam - Hospitalist 10/22/24 2150 MR#: [id number] Acct: [id number] Name: CODY SANTANA Rep #:[id number] : 1985 38 From: Farhana Harden DO PCP: Care Physician,No Primary Status :ADM MARGY Location: [address] [place] [address] HPI - General General Date of Admission: 10/22/24 Date of Service: 10/23/24 Chief Complaint: Left leg weakness/expressive aphasia/slurred speech/right arm paresthesias HPI Narrative CODY SANTANA, is a 38 F who presented to the emergency department [facility] on 10/23/2023 with a chief [...] stay to be less than 48 hours. [facility] Medical History Lumbar pain with radiation down right leg Dental caries Brain TIA Dysarthria Chronic migraine Anxiety and depression History of venous thromboembolism Obesity Tobacco use History of nephrolithiasis Chronic neck and back pain Factor 5 Leiden mutation, heterozygous Home Medications ?Medication ?Instructions ?Recorded ?Last Taken ?Type medroxyprogesterone 150 mg/mL 150 mg IM .[id number] verenice h control 01/30/15 08/24/24 11:00 History [...] Reaction Status Date / Time acetaminophen (From [place]) Allergy Itching Verified 10/22/24 20:55 hydrocodone (From [place]) Allergy Itching Verified 10/22/24 20:55 oxycodone (From [...] (Auto) 44.7 L, Lymph % (Auto) 43.7 H,Valencia % (Auto) 8.6, Eos % (Auto) 2.2, Baso % (Auto) 0.6, Absolute Neuts (auto) 2.9, Absolute Lymphs (auto) 2.80, Nucleated RBC % 0, PT 14.3, INR 1.1, APTT 30.8 Imaging Radiology Impression Brain CT 10/22/24 21:10 IMPRESSION: No acute intracranial abnormality. Reading [facility] Assessment & Plan Assessment/Plan (1) Left leg [...] code verified Charges/Coding Visit Charges Inpatient E&M: 18906 Init Hosp L2 10/23/24 0036 <Electronically signed by Farhana Dereck DO> Cosigner Signature (if applicable): CC: Dr. Farhana Harden DO; No Primary Care Physician~ Signed [facility] Work Phone: 1(596) 910-898305-14-2025 Discharge summary Author Jeremy Gerard [facility] Note Date/Time October 22, 2024 11:51 pm [facility] Medical Records Department [address] [place] [address] Emergency Department Summary 10/22/24 MR#: [id number] Acct: [id number] Name: CODY SANTANA Rep #:[id number] : 1985 38 From: Jeremy Larose PCP: Care Physician,No Primary Status :ADM MARGY Location: [address] History of Present Illness Chief Complaint: General [...] when she had a TIA stating either thispast April the year before that. She is [...] ?Type medroxyprogesterone 150 mg/mL 150 mg IM .[id number] verenice h control 01/30/15 08/24/24 11:00 History [...] Reaction Status Date / Time acetaminophen (From [place]) Allergy Itching Verified 10/22/24 20:55 hydrocodone (From [place]) Allergy Itching Verified 10/22/24 20:55 oxycodone (From [...] on Eliquis therefore not a TNK candidate. 2155: Recheck NIH still had 3 with mild [...] Telestroke, hospitalist This note was generated with [employer] dictation software. It may contain incorrectwords, spelling, [...] 44.7 L Lymph % (Auto) 43.7 H Valencia % (Auto) 8.6 Eos % (Auto) 2.2 [...] IMPRESSION: No acute intracranial abnormality. Reading [facility] Head/Neck CTA 10/22/24 21:18 IMPRESSION: Patent anterior and posterior intracranial and extracranial circulation, withouthemodynamically significant stenosis. Reading Location: [facility] Critical Care Time Critical Care Time: Yes Critical care time (excluding procedures): 30-74 minutes, Discussing w/Patient &/or Family/Executive Advisor, Discussing w/Consultants, Arranging Admission or Transfer, Performing Direct Patient Care at Bedside and - (31 minutes) Discharge Plan Dx/Rx/DC Orders Clinical Impression: Expressive aphasia, Headache, Paresthesia Disposition Disposition: Acute Care Hospital [facility] Discharge Date/Time: 10/22/24 22:23 What to do if you have Problems For any increased pain, shortness of breath, bleeding, nausea or vomiting, chestpain, or any unexpected problems, contact your Primary Care Provider. Call [facility] ([phone]) or report to the closest Emergency Room. Call 911 if necessary. 10/22/24 2876 <Electronically signed by Jeremy Larose> Cosigner Signature (if applicable): CC: No Primary Care Physician ~ Signed [facility] Work Phone: 1(747) 393-532805-14-2025 History and physical note [facility] Medical Records Department [address] [place] [address] H&P Exam - Hospitalist 10/22/24 2150 MR#: [id number] Acct: [id number] Name: CODY SANTANA Rep #:[id number] : 1985 38 From: Farhana Harden DO PCP: Care Physician,No Primary Status :ADM MARGY Location: [place] [address] HPI - General General Date of Admission: 10/22/24 Date of Service: 10/23/24 Chief Complaint: Left leg weakness/expressive aphasia/slurred speech/right arm paresthesias HPI Narrative CODY SANTANA, is a 38 F who presented to the emergency department [facility] on 10/23/2023 with a chief [...] stay to be less than 48 hours. [facility] Medical History Lumbar pain with radiation down right leg Dental caries Brain TIA Dysarthria Chronic migraine Anxiety and depression History of venous thromboembolism Obesity Tobacco use History of nephrolithiasis Chronic neck and back pain Factor 5 Leiden mutation, heterozygous Home Medications ?Medication ?Instructions ?Recorded ?Last Taken ?Type medroxyprogesterone 150 mg/mL 150 mg IM .[id number] verenice h control 01/30/15 08/24/24 11:00 History [...] Reaction Status Date / Time acetaminophen (From [place]) Allergy Itching Verified 10/22/24 20:55 hydrocodone (From [place]) Allergy Itching Verified 10/22/24 20:55 oxycodone (From [...] (Auto) 44.7 L, Lymph % (Auto) 43.7 H,Valencia % (Auto) 8.6, Eos % (Auto) 2.2, Baso % (Auto) 0.6, Absolute Neuts (auto) 2.9, Absolute Lymphs (auto) 2.80, Nucleated RBC % 0, PT 14.3, INR 1.1, APTT 30.8 Imaging Radiology Impression Brain CT 10/22/24 21:10 IMPRESSION: No acute intracranial abnormality. Reading Location[facility] Assessment & Plan Assessment/Plan (1) Left leg [...] code verified Charges/Coding Visit Charges Inpatient E&M: 08058 Init Hosp L2 10/23/24 0036 Cosigner Signature (if applicable): CC: Dr. Farhana Harden DO; No Primary Care Physician~ Signed [facility]05-13-2025 Discharge summary [facility] Medical Records Department [address] [place] [address] Emergency Department Summary 10/22/24 MR#: [id number] Acct: [id number] Name: CODY SANTANA Rep #:[id number] : 1985 38 From: Jeremy Larose PCP: Care Physician,No Primary Status :ADM MARGY Location: [place] [address] HPI History of Present Illness Chief Complaint: [...] midnight after work. Prior similar symptoms: Yes [facility] [facility] Medical History Lumbar pain with radiation down right leg Dental caries Brain TIA Dysarthria Chronic migraine Anxiety and depression History of venous thromboembolism Obesity Tobacco use History of nephrolithiasis Chronic neck and back pain Factor 5 Leiden mutation, heterozygous Home Medications ?Medication ?Instructions ?Recorded ?Last Taken ?Type medroxyprogesterone 150 mg/mL 150 mg IM .[id number] verenice h control 01/30/15 08/24/24 11:00 History [...] Reaction Status Date / Time acetaminophen (From [place]) Allergy Itching Verified 10/22/24 20:55 hydrocodone (From [place]) Allergy Itching Verified 10/22/24 20:55 oxycodone (From [...] Telestroke, hospitalist This note was generated with Heuresis Corporationation software. It may contain incorrectwords, spelling, and [...] 44.7 L Lymph % (Auto) 43.7 H Valencia % (Auto) 8.6 Eos % (Auto) 2.2 [...] IMPRESSION: No acute intracranial abnormality. Reading Location: [facility] Head/Neck CTA 10/22/24 21:18 IMPRESSION: Patent anterior and posterior intracranial and extracranial circulation, withouthemodynamically significant stenosis. [facility] Critical Care Time Critical Care Time: Yes Critical care time (excluding procedures): 30-74 minutes, Discussing w/Patient &/or Family/CareGiver, Discussing w/Consultants, Arranging Admission or Transfer, Performing Direct Patient Care atBedside and - (31 minutes) Discharge Plan Dx/Rx/DC Orders Clinical Impression: Expressive aphasia, Headache, Paresthesia Disposition Disposition: Acute Care [facility] Discharge Date/Time: 10/22/24 22:23 What to do if you have Problems For any increased pain, shortness of breath, bleeding, nausea or vomiting, chestpain, or any unexpected problems, contact your Primary Care Provider. Call [facility] ([phone]) or report tothe closest Emergency Room. Call 911 if necessary. 10/22/24 7371 Cosigner Signature (if applicable): CC: No Primary Care Physician ~ Signed [facility]05-13-2025 Evaluation note* Diagnosis Onset Date Resolution Status Admit Date Expressive aphasia resolved October 222024 9:51pm Headache resolved October 22, 2024 9:51pm Left leg weakness resolved October 9:51pm Anemia inactive October 22, 2024 9:51pm [facility] Work Phone: 1(806) 294-159905-13-2025 Radiology Diagnostic study note [facility] Imaging Services [address] [place], [place] [id number] STROKE CTA Head AND Neck W/Con MR#: [id number] Acct: [id number] Name: CODY SANTANA Rep #: [id number] : 1985 F 38 From: Aracely Gerber MD PCP: Care Physician,No Primary Status: REG ER Study:STROKE CTA Head AND Neck W/Con Date of Exam: 10/22/24 Exam# [id number] Ordering Dr: Jeremy Gerard DO PROCEDURE: STROKE [...] RIGHT Vertebral: Unremarkable. LEFT Vertebral: Unremarkable. Anatomy: [place] anatomy is normal. Aneurysm or [...] extracranial circulation, withouthemodynamically significant stenosis. Reading [facility] CC: Dr. Jeremy Gerard DO; No Primary Care Physician ~ Car Tracer: Signed [facility]05-13-2025 Radiology Diagnostic study note [facility] Imaging Services [address] [place] [address] STROKE Brain/Head without Cont MR#: [id number] Acct: [id number] Name: CODY SANTANA Rep #: [id number] : 1985 F 38 From: Aracely Gerber MD PCP: Care Physician,No Primary Status: REG ER Study:STROKE Brain/Head without Cont Date of Exam: 10/22/24 Exam# [id number] Ordering Dr: Jeremy Gerard DO PROCEDURE: STROKE [...] IMPRESSION: No acute intracranial abnormality. Reading [facility] CC: Dr. Jeremy Gerard DO; No Primary Care Physician ~ Car Tracer: Signed [facility]05-06-2025 Telephone encounter Note* Telephone Encounter - Unruly Gonzalez RN - 10/15/2024 10:04 AM EDT Images from the original note were not included. Cody Santana (Dimas: [id number]) Need Help? Call us at Status Sent to Plan today Drug Nurtec 75MG dispersible tablets Form [place] Medicaid [employer] Electronic PA Form (2016 NCPDP) [facility]05-06-2025 Miscellaneous Notes* Telephone Encounter - Unruly Gonzalez RN - 10/15/2024 10:04 AM EDT Images from the original note were not included. Cody Santana (Dimas: [id number]) Need Help? Call us at Status Sent to Plan today Drug Nurtec 75MG dispersible tablets Form [place] Medicaid [employer] Electronic PA Form (2016 NCPDP) documented in this encounterGood [facility]aritan [facility]04-13-2025 Radiology Diagnostic study note [facility] Imaging Services [address] [place], [place] [address] Wrist min 3 Views MR#: [id number] Acct: [id number] Name: CODY SANTANA Rep #: [id number] : 1985 F 38 From: Oscar Ontiveros DO PCP: Care Physician,No Primary Status: REG ER Study:Wrist min 3 Views Date of Exam: Exam# [id number] Ordering Dr: Shilo Koch DO EXAM: Right wrist radiographs CLINICAL HISTORY: Pain COMPARISON: None TECHNIQUE: Three views of the right wrist FINDINGS: See impression RAD/Wrist min 3 Views IMPRESSION: Negative for acute displaced fracture or dislocation. No significant arthropathy. Reading Location: [facility] CC: Dr. Shilo Dunne, ; No Primary Care Physician ~ Car Tracer: Signed [facility]04-07-2025 Telephone encounter Note* Telephone Encounter [...] ONCE EVERY MONTH Pharmacy Name: Donnie Worthington [facility]04-07-2025 Miscellaneous Notes* Telephone Encounter - Dalia Worthington - 09/16/2024 10:51 AM EDT Physician: Tammy Call from pharmacy requesting refill. Please E-Scribe Last OV: 10/02/2023 with Monge Kathryn OV: Not Scheduled. Scheduling mychart sent Requested Prescriptions Pending Prescriptions Disp Refills AIMOVIG AUTOINJECTOR 70 mg/mL auto-injector [Pharmacy Med Name: Aimovig 70 MG/ML Subcutaneous Solution Auto-injector] 3 mL 0 Sig: INJECT 1 ML SUBCUTANEOUSLY ONCE EVERY MONTH Pharmacy Name: Donnie [facility] [place] documented in this encounterGood Samaritan Hospital03-19-2025 NoteHNO ID: [id number] Author: CHARLINE WOOTEN APRN.TITLE ABSTRACTOR Service: ? Author Type: Nurse Practitioner Type: [...] right facial weakness and was admitted to [facility]. As per the patient, stroke was [...] was laying down to go to bed. [place] like prior episodes. No issues getting up [...] months lovenox then consideration of going to [facility] vascular -unsure of next appt [...] wheezing/shortness of breath. m (more content not included)...[facility]03-14[facility] Evaluation note* Diagnosis Onset Date Resolution Status Admit Date Acute lumbar myofascial strain inact ivon August 23, 2024 9:00am Lumbar pain acute September 07, 2 025 11:18am Anemia acute October 22, 2024 9:51pm Expressive aphasia acute October 222024 9:51pm Headache acute October 22, 2024 9:51pm Left leg weakness acute October 9:51pm [facility] Work Phone: 1([phone]) 103-642002-17-2025 History of Present illness Narrative* Savage Kasper, [...] PATIENT PRESENTS WITH AN IMPLANTABLE OR ATTACHED OCEAN EXPORT ACCOUNT MANAGER: No RADIOLOGY DEPARTMENT: General X-ray: Exam(s) Completed: Upper Extremity X- Ray(s): Wrist, right PERIPHERAL IV DATA: Not applicable SIGNED BY: RT Berlin(Lisa) July 29, 2024 7:25 PM documented in this encounterGood Samaritan Hospital02-17-2025 NoteHNO ID: [id number] Author: SAVAGE KASPER RT(R) Service: Radiology Author [...] PATIENT PRESENTS WITH AN IMPLANTABLE OR ATTACHED OCEAN EXPORT ACCOUNT MANAGER: No RADIOLOGY DEPARTMENT: General X-ray: Exam(s) Completed: Upper Extremity X-Ray(s): Wrist, right PERIPHERAL IV DATA: Not applicable SIGNED BY: RT Beriln(Lisa) July 29, 2024 7:25 [facility]02-17-2025 NoteHNO ID: [id number] Author: JEOVANY JOSEPH PA-C Service: ? Author Type: Physician Hand Spring Repairer Type: Progress Notes Filed: 07/29/2024 20:03 Note Text: This note was created using Rethink Booksriter. Subjective Cody Santana is a 38 year [...] to right fingers and states that her oil scout is intact. Patient reports no pain or [...] and the patient demonstrates strong and equal oil scout. Patient demonstrates reduced range of motion in [...] XR WRIST GENERAL 3V PA/LAT/OBL RIGHT ALONZO [facility]02-17-2025 History of Present illness Narrative* Jeovany Joseph PA-C - 07/29/2024 7:21 PM EST This note was created using [employer]. Subjective Cody Santana is a 38 year [...] to right fingers and states that her oil scout is intact. Patient reports no pain or [...] intact and thepatient demonstrates strong and equal oil scout. Patient demonstrates reduced range of motion in [...] XR WRIST GENERAL 3V PA/LAT/OBL RIGHT Jeovany Joseph PA-C documented in this encounterGood Samaritan Hospital02-06-2025 Telephone encounter Note * Telephone Encounter - Inderjit Ontiveros MA - 07/18/2024 4:16 PM EST Patient notified. Inderjit Ontiveros MA [facility]02-06-2025 Miscellaneous Notes* Telephone Encounter - Inderjit Ontiveros MA - 07/18/2024 4:16 PM EST Patient notified. Inderjit Ontiveros MA * Telephone Encounter - Neli Redd APRN.CNP - 07/18/2024 3:04 PM EST CXR negative Strep negative Please advise patient documented in this encounterGood Samaritan Hospital02-06-2025 Telephone encounter Note * Telephone Encounter - Neli Redd APRN.CNP - 07/18/2024 3:04 PM EST CXR negative Strep negative Please advise patient [facility] Work Phone: [phone]) 140-212402-06-2025 History of Present illness Narrative* Savage Kasper, [...] PATIENT PRESENTS WITH AN IMPLANTABLE OR ATTACHED OCEAN EXPORT ACCOUNT MANAGER: No RADIOLOGY DEPARTMENT: General X-ray: Exam(s) Completed: Chest X-Ray PERIPHERAL IV DATA: Not applicable SIGNED BY: RT Berlin(Lisa) July 18, 2024 2:27 PM documented in this encounterGood Samaritan Hospital02-06-2025 NoteHNO ID: [id number] Author: SAVAGE KASPER RT(R) Service: Radiology Author [...] PATIENT PRESENTS WITH AN IMPLANTABLE OR ATTACHED OCEAN EXPORT ACCOUNT MANAGER: No RADIOLOGY DEPARTMENT: General X-ray: Exam(s) Completed: Chest X-Ray PERIPHERAL IV DATA: Not applicable SIGNED BY: RT Berlin(R) July 18, 2024 2:27 [facility]02-06-2025 NoteHNO ID: [id number] Author: NELI REDD APRN.TITLE ABSTRACTOR Service: ? Author Type: Nurse Practitioner Type: [...] provided by the patient. No foreign language stenographer was used. Cough This is a new [...] Head: Normocephalic and atraumatic. (more content not included)...[facility]02-06-2025 History of Present illness Narrative* Neli Redd APRN.TITLE ABSTRACTOR - 07/18/2024 2:19 PM EST This note was created using Rethink Booksriter. Subjective Cody Santana is a 38 year [...] provided by the patient. No foreign language stenographer was used. Cough This is a new [...] and will call with results Will call [phone] - STREP A MOLECULAR (POC) Neli Redd APRN.TITLE ABSTRACTOR documented in this encounterGood Samaritan Hospital02-03-2025 Telephone encounter Note * Telephone Encounter - Victor Manuel Horn - 07/15/2024 9:05 AM EST Schedules have not been entered for 2025. Will postpone note to contact patient and enter recall letter. Patient informed. [facility] Work Phone: 1(435) 653-159402-03-2025 Miscellaneous Notes* Telephone Encounter - Victor Manuel [...] office. Paty Arciniega DO documented in this encounterGood Samaritan Hospital02-03-2025 Telephone encounter Note * Telephone Encounter [...] Information faxed as directed. Natalie Mancia LPN [facility]02-02-2025 Telephone encounter Note* Telephone Encounter - [...] her primary care's office. Paty Arciniega DO [facility]01-16-2025 Telephone encounter Note* Telephone Encounter - Cody Riley MA - 06/27/2024 8:58 AM EST Patient active MyChart. Patient notified via Microstim message. Cody Riley MA [facility]01-16-2025 Miscellaneous Notes* Telephone Encounter - Cody Riley MA - 06/27/2024 8:58 AM EST Patient active MyChart. Patient notified via Microstim message. Cody Riley MA * Telephone Encounter [...] symptoms. Les Mckeon APRN.CNP documented in this encounterGood Samaritan Hospital01-16-2025 Telephone encounter Note * Telephone Encounter - Inderjit Ontiveros MA - 06/27/2024 8:43 AM EST Left VM instructing patient to return call to receive results. Inderjit Ontiveros MA [facility]01-16-2025 Telephone encounter Note* Telephone Encounter - Les Mckeon APRN.CNP - 06/27/2024 7:25 AM EST Please inform patient that she did test positive for COVID-19. Follow return to work guidelines as provided during yesterday's visit. Continue supportive therapies. Follow-up with ED or PCP for any new or worsening symptoms. Les Mckeon APRN.CNP [facility]01-15-2025 NoteHNO ID: [id number] Author: JEOVANY JOSEPH PA-C Service: ? Author Type: Physician Hand Spring Repairer Type: Progress Notes Filed: 06/26/2024 16:33 Note Text: This note was created using Aster DM Healthcareter. Subjective Cody Santana is a 38 year [...] INFLUENZA A/B AND RSV PCR, ROUTINE Jeovany ALONZO [facility]01-15-2025 History of Present illness Narrative* Jeovany Joseph PA-C - 06/26/2024 4:15 PM EST This note was created using [employer]Crunch. Subjective Cody Santana is a 38 year [...] ROUTINE Jeovany Joseph PA-C documented in this encounterGood Samaritan Hospital01-08-2025 Evaluation note* Diagnosis Onset Date Resolution Status Admit Date Impetigo acute June 19, 2 025 11:18am [facility] Work Phone: 1(695) 310-909601-08-2025 Evaluation note* Diagnosis Onset Date Resolution Status Admit Date Impetigo acute June 19, 2 025 11:18am Acute lumbar myofascial strain inactive August 23, 2024 9:00am Lumbar pain acute September 07, 025 11:18am [facility] Work Phone: 1(838) 928-171401-02-2025 Telephone encounter Note* Telephone Encounter - Victor Manuel Horn - 06/13/2024 2:12 PM EST Lab scheduled [facility] Work Phone: 1(807) 307-549801-02-2025 Miscellaneous Notes* Telephone Encounter - Victor Manuel Horn - 06/13/2024 2:12 PM EST Lab scheduled * Telephone Encounter - Mary Alice Rutledge LPN - 06/13/2024 12:05 PM EST Reviewed all instructions with patient and also sent instructions via Microstim. PSS- please schedule a lab appointment for LUPUS ANTI-COAGULANT PANEL 06/21/2024 @ 1:30 pm. Patientis aware of appointment date and time. Mary Alice Rutledge LPN * Telephone Encounter - Mary Alice Rutledge LPN - 06/13/2024 10:51 AM EST Left message for patient to contact the office. Mary Alice Rutledge LPN * Telephone Encounter - Paty Arciniega [...] results. Paty Arciniega DO documented in this encounterGood Samaritan Hospital01-02-2025 Telephone encounter Note * Telephone Encounter - Mary Alice Rutledge LPN - 06/13/2024 12:05 PM EST Reviewed all instructions with patient and also sent instructions via Microstim. PSS- please schedule a lab appointment for LUPUS ANTI-COAGULANT PANEL 06/21/2024 @ 1:30 pm. Patientis aware of appointment date and time. Mary Alice Rutledge LPN [facility]01-02-2025 Telephone encounter Note* Telephone Encounter - Mary Alice Rutledge LPN - 06/13/2024 10:51 AM EST Left message for patient to contact the office. Mary Alice Rutledge LPN [facility]01-01-2025 Telephone encounter Note* Telephone Encounter - [...] from us with results. Paty Arciniega DO [facility]12-20-2024 NoteHNO ID: [id number] Author: PATY ARCINIEGA DO Service: ? Author Type: Physician Type: Progress Notes Filed: 05/31/2024 15:00 Note Text: Hematologic problem(s): 1) Factor V Leiden. 2) Several VTE events. HPI: Patient is a 38-year-old female with past medical history as outlined below. DVT left leg diagnosed somewhere 7719-7143. Anticoagulated for several months. Multiple PEs. Anticoagulated [...] early to have tested positive for . [facility]. On Depo-Provera since about 2015. Was admitted to [facility] in August of this year [...] of a lower extremity duplex ultrasound at [facility] from 08/07/2020 showing partial compressibility with bright [...] bloody stools. : No (more content not included)...[facility]12-20-2024 History of Present illness Narrative* Paty Arciniega, - 05/31/2024 2:38 PM EST Hematologic problem(s): 1) Factor V Leiden. 2) Several VTE events. HPI: Patient is a 38-year-old female with past medical history as outlined below. DVT left leg diagnosed somewhere 6202-6967. Anticoagulated for several months. Multiple PEs. Anticoagulated [...] early to have tested positive for . [facility]. On Depo-Provera since about 2015. Was admitted to [facility] in August of this year [...] of a lower extremity duplex ultrasound at [facility] from 08/07/2020 showing partial compressibility with bright [...] V Leiden (HCC) (D68.62) Lupus anticoagulant disorder (HCC) Assessment: -The patient is a 38-year-old female [...] which included preparing to see the patient, xgwt-zp-hjwx patient care, completing clinical documentation, counseling and educating the patient/family/caregiver, communicating with other HCPs (not separately reported), and communicating results to the patient/family/caregiver. Paty Arciniega DO documented in this encounterGood Samaritan Hospital12-13-2024 History of Present illness Narrative* Rhiannon [...] PATIENT PRESENTS WITH AN IMPLANTABLE OR ATTACHED OCEAN EXPORT ACCOUNT MANAGER: No RADIOLOGY DEPARTMENT: General X-ray: Exam(s) Completed: Upper Extremity X- Ray(s): Shoulder, AP / TRUE AP / AXILLARY right PERIPHERAL IV DATA: Not applicable SIGNED BY: RT Bridget(Lisa) May 24, 2024 11:37 AM documented in this encounterGood Samaritan Hospital12-13-2024 NoteHNO ID: [id number] Author: RHIANNON BARAJAS RT(R) Service: ? Author Type: Machine Cementer Type: Progress Notes Filed: 05/24/2024 11:55 Note [...] PATIENT PRESENTS WITH AN IMPLANTABLE OR ATTACHED OCEAN EXPORT ACCOUNT MANAGER: No RADIOLOGY DEPARTMENT: General X-ray: Exam(s) Completed: Upper Extremity X-Ray(s): Shoulder, AP / TRUE AP / AXILLARY right PERIPHERAL IV DATA: Not applicable SIGNED BY: RT Bridget(Lisa) May 24, 2024 11:37 [facility]12-13-2024 NoteHNO ID: [id number] Author: LES MCKEON APRN.TITLE ABSTRACTOR Service: ? Author Type: Nurse Practitioner Type: [...] surgeries or fractures previously. Is not . Hahsw-dern-rsafuumq. Past medical history prescription medications allergies reviewed. [...] for discharge. Plan of (more content not included)...[facility]12-13-2024 History of Present illness Narrative* Les Mckeon APRN.[facility] - 05/24/2024 11:25 AM EST Images from [...] surgeries or fractures previously. Is not . Sqseu-wnvw-mycaybay. Past medical history prescription medications allergies reviewed. [...] of care. This note was generated using Yovia software. It may contain errors in wording, punctuation, or spelling. Les Mckeon APRN.TITLE ABSTRACTOR documented in this encounterGood Samaritan Hospital11-19-2024 Telephone encounter Note * Telephone Encounter - Unruly Gonzalez RN - 04/30/2024 3:19 PM EST Cody Santana (Dimas: [id number]) - [id number] Nurtec 75MG dispersible tablets status: PA Response - Approved Created: April 29, 2024 [id number] Sent: April 30, 2024 [facility]11-19-2024 Miscellaneous Notes* Telephone Encounter - Unruly Gonzalez RN - 04/30/2024 3:19 PM EST Cody Santana (Dimas: [id number]) - [id number] Nurtec 75MG dispersible tablets status: PA Response - Approved Created: April 29, 2024 [id number] Sent: April 30, 2024 * Telephone Encounter - Unruly Gonzalez RN - 04/30/2024 11:25 AM EST Cody Santana (Dimas: [id number]) - [id number] Nurtec 75MG dispersible tablets status: PA Request Created: April 29, 2024 [id number] Sent: April 30, 2024 documented in this encounterGood Samaritan Hospital11-19-2024 Telephone encounter Note * Telephone Encounter - Unruly Gonzalez RN - 04/30/2024 11:25 AM EST Cody Santana (Dimas: [id number]) - [id number] Nurtec 75MG dispersible tablets status: PA Request Created: April 29, 2024 [id number] Sent: April 30, 2024 [facility]11-18-2024 Telephone encounter Note* Telephone Encounter - Sam Guevara RN - 04/29/2024 11:38 AM EST Nurtec last ordered 09/14/2023, 16 tablets with 2 refills, start 09/14/23 end 12/13/23 [place], [place] ABDULKADIR: 10/02/2023 Distance Health visit with [...] to Dr. Monge for review and recommendations. [facility]11-18-2024 Miscellaneous Notes* Telephone Encounter - Sam Guevara RN - 04/29/2024 11:38 AM EST Nurtec last ordered 09/14/2023, 16 tablets with 2 refills, start 09/14/23 end 12/13/23 [place], [place] ABDULKADIR: 10/02/2023 Distance Health visit with [...] for review and recommendations. documented in this encounterGood Samaritan Hospital10-31-2024 Telephone encounter Note * Telephone Encounter - Cody Riley MA - 04/11/2024 8:14 AM EDT Patient active Microstim. Last login 04/10. Patient notified via Microstim message. Cody Riley MA [facility]10-31-2024 Miscellaneous Notes* Telephone Encounter - Cody Riley MA - 04/11/2024 8:14 AM EDT Patient active GlobeInt. Last login 04/10. Patient notified via Microstim message. Cody Riley MA * Telephone Encounter - Crissy Bell APRN.CNP - 04/11/2024 7:41 AM EDT Please notify knee xray negative. Continue with plan as discussed during visit. documented in this encounterGood Samaritan Hospital10-31-2024 Telephone encounter Note * Telephone Encounter - Crissy Bell APRN.CNP - 04/11/2024 7:41 AM EDT Please notify knee xray negative. Continue with plan as discussed during visit. [facility] Work Phone: 1([phone]) [phone] History of Present illness Narrative* Rhiannon Barajas, [...] PATIENT PRESENTS WITH AN IMPLANTABLE OR ATTACHED OCEAN EXPORT ACCOUNT MANAGER: No RADIOLOGY DEPARTMENT: General X-ray: Exam(s) Completed: Lower Extremity X- Ray(s): Knee, AP / Lat / [place] / Merchant Left PERIPHERAL IV DATA: Not applicable SIGNED BY: RT Bridget(Lisa) April 10, 2024 8:02 PM documented in this encounterGood Samaritan Hospital10-30-2024 NoteHNO ID: [id number] Author: RHIANNON BARAJAS RT(R) Service: ? Author Type: Machine Cementer Type: Progress Notes Filed: 04/10/2024 20:02 Note [...] PATIENT PRESENTS WITH AN IMPLANTABLE OR ATTACHED OCEAN EXPORT ACCOUNT MANAGER: No RADIOLOGY DEPARTMENT: General X-ray: Exam(s) Completed: Lower Extremity X-Ray(s): Knee, AP / Lat / Tunne / Merchant Left PERIPHERAL IV DATA: Not applicable SIGNED BY: RT Bridget(R) April 10, 2024 8:02 [facility]10-30-2024 NoteHNO ID: [id number] Author: JAY DELGADO APRN.TITLE ABSTRACTOR Service: ? Author Type: Nurse Practitioner Type: Progress Notes Filed: 04/10/2024 19:46 Note Text: This note was created using SocialCrunch. Sarath Santana is a 38 year old [...] 4V AP BOTH/PA BOTH/LAT/MERC LEFT Jay Delgado APRN.CNPCleveland Clinic [facility]10-30-2024 History of Present illness Narrative* Jay Delgado APRN.CNP - 04/10/2024 7:41 PM EDT This note was created using SocialCrunch. Sarath Santana is a 38 year old [...] LEFT Jay Delgado APRN.KOLE documented in this encounterGood Samaritan Hospital10-17-2024 History of Present illness Narrative* Rhiannon Barajas, (R) - 03/28/2024 7:10 PM EDT Radiology Service [...] PATIENT PRESENTS WITH AN IMPLANTABLE OR ATTACHED OCEAN EXPORT ACCOUNT MANAGER: No RADIOLOGY DEPARTMENT: General X-ray: Exam(s) Completed: Chest X-Ray PERIPHERAL IV DATA: Not applicable SIGNED BY: RT Bridget(Lisa) March 28, 2024 7:07 PM documented in this encounterGood Samaritan Hospital10-17-2024 NoteHNO ID: [id number] Author: RHIANNON BARAJAS RT(R) Service: ? Author Type: Machine Cementer Type: Progress Notes Filed: 03/28/2024 19:14 Note [...] PATIENT PRESENTS WITH AN IMPLANTABLE OR ATTACHED OCEAN EXPORT ACCOUNT MANAGER: No RADIOLOGY DEPARTMENT: General X-ray: Exam(s) Completed: Chest X-Ray PERIPHERAL IV DATA: Not applicable SIGNED BY: RT Bridget(Lisa) March 28, 2024 7:07 [facility]10-17-2024 NoteHNO ID: [id number] Author: NELI REDD APRN.TITLE ABSTRACTOR Service: ? Author Type: Nurse Practitioner Type: Progress Notes Filed: 03/29/2024 09:22 Note Text: This note was created using R[employer]ink Books[employer]. Subjective Cody Santana is a 38 year [...] and chest tightness remain. 'can't sleep at night" Endorses winded with activity Denies she has been diagnosed with asthma or COPD The history is provided by the patient. No foreign language stenographer was used. Cough This is a new [...] not bruise/bleed easily. Psychiatric/Be (more content not included)...[facility] 03-28-2024 History of Present illness Narrative* Neli Redd APRN.TITLE ABSTRACTOR - 03/28/2024 7:02 PM EDT This note was created using [employer]. Subjective Cody Santana is a 38 year [...] and chest tightness remain. 'can't sleep at night" Endorses winded with activity Denies she has been diagnosed with asthma or COPD The history is provided by the patient. No foreign language stenographer was used. Cough This is a new [...] flags Neli Redd APRN.KOLE documented in this encounterGood [facility]aritan Hospital10-08-2024 NoteHNO ID: [id number] Author: MICHELLE MARVIN APRN.CNP Service: ? Author Type: Nurse Practitioner [...] Michelle Marvin APRN.[facility]10-08-2024 History of Present illness Narrative* Michelle Marvin APRN.[facility] - 03/19/2024 9:22 AM EDT CC: Patient [...] plan. Michelle Marvin APRN.KOLE documented in this encounterGood Samaritan Hospital09-18-2024 Instructions* Patient Instructions* Charline Wooten APRN.CNP - 02/28/2024 11:25 AM EDT Images from the original note were not included. Regarding your visit with Nurse Practitioner Charline Wooten today at the [facility] we discussed the following: [...] if you have any questions Charline Wooten [facility] [place] Nurse Practitioner [place], [place] [address] Office: [phone] Appointments: [phone] Stroke Signs and Symptoms: *Stroke is a [...] of these signs, don't delay! Immediately call 911, orthe emergency medical services (EMS) number so [...] DASH-style diet rich in fruits and vegetables (https://www.nhlbi.nih.gov/education/xvpe-tsoskb-nfts) - Consider Mediterranean diet supplemented with nuts [...] of an exercise program by a health director of primary care such as a physical therapist or cardiac [...] for their cardiovascular health Adapted from the [place] [employer] Association/[place] Stroke Association: 2021 Guideline for the Prevention of Stroke in Patients With Stroke and Transient Ischemic Attack documented in this encounterGood Samaritan Hospital09-18-2024 History of Present illness Narrative* Charline [...] and right facial weakness and was admitted [facility]. As per the patient, stroke was [...] was laying down to go to bed. [place] like prior episodes. No issues getting up [...] lovenox then consideration of going to xarelto. [facility] vascular -unsure of next appt with [...] 110/73 Pulse 84 Ht 160 cm (5' 3") Wt 90.3 kg (199 lb) BMI 35.25 [...] assistance. LABS Cholesterol: No results found for: "CHOL" No results found for: "LDL" No results found for: "HDL" No results found for: "TG" Diabetes: No results found for: "HBA1C" IMAGING OSH CT brain, CTA head and [...] Other Determined Etiology: - Hypercoagulable state Modified Humphreys Score: Score: 0 NIH Stroke Scale: LOC: [...] which included preparing to see the patient, hjhy-zu-lloy patient care, completing clinical documentation, obtaining and/or reviewing separately obtained history, performing a medically appropriate examination, counseling and educating the patient/family/caregiver, independently interpreting results (not separately reported), communicating results to the patient/family/caregiver, and care coordination (not separately reported) SIGNATURE Charline Wooten APRN.CNP CC No referring provider defined for this encounter. To use this Smartlink, specify the provider ID whose address you want to display, e.g., .PROVADDR[1(where 1 is the provider ID). documented in this encounterGood Samaritan Hospital09-18-2024 NoteHNO ID: [id number] Author: CHARLINE WOOTEN APRN.CNP Service: ? Author [...] right facial weakness and was admitted to [facility]. As per the patient, stroke was [...] was laying down to go to bed. [place] like prior episodes. No issues getting up [...] months lovenox then consideration of going to [facility]. [facility] vascular -unsure of next appt with [...] GROIN AREA DIRECTED topiramate (more content not included)...[facility]08-26-[facility]24 Telephone encounter Note* Telephone Encounter - Victor Manuel Horn - 02/05/2024 10:58 AM EDT Scheduled with patient [facility] Work Phone: 1(489) 668-324208-26-2024 Miscellaneous Notes* Telephone Encounter - Victor Manuel [...] office visit note from vascular surgery at [facility]. She had presented to the ER at [facility] on 01/07 with complete of pain behind [...] OV. Paty Arciniega DO documented in this encounterGood Samaritan Hospital08-26-2024 Telephone encounter Note * Telephone Encounter - Victor Manuel Horn - 02/05/2024 10:48 AM EDT 1st attempt. Message left for patient to contact office to schedule- D dimer lab then office visit with Dr. Arciniega in 4 months [facility]08-25-2024 Telephone encounter Note* Telephone Encounter - Paty Arciniega DO - 02/04/2024 3:34 PM EDT I reviewed the office visit note from vascular surgery at [facility]. She had presented to the ER at [facility] on 01/07 with complete of pain behind [...] the time of OV. Paty Arciniega DO [facility] Work Phone: [phone]) 674-652508-07-2024 Telephone encounter Note* Telephone Encounter - Mary Alice Rutledge LPN - 01/17/2024 1:11 PM EDT Patient notified of all instructions. Vascular surgery note obtained and sent to scanning in [place]. Mary Alice Rutledge LPN [facility]08-07-2024 Miscellaneous Notes* Telephone Encounter - Mary Alice Rutledge LPN - 01/17/2024 1:11 PM EDT Patient notified of all instructions. Vascular surgery note obtained and sent to scanning in [place]. Mary Alice Rutledge LPN * Telephone Encounter - Paty Arciniega DO - 01/17/2024 1:01 PM EDT I was not informed that she saw a vascular surgeon and I have no idea why she was changed to Lovenox. I recommend she continue Lovenox and follow-up with them. Perhaps I could get their office note? Paty Arciniega DO * Telephone Encounter - Mary Alice Rutledge LPN - 01/17/2024 10:25 AM EDT [facility] put patient on Lovenox 90 mg BID beginning 01/08/2024. She has not been taking Eliquis since then. When should she stop Lovenox for labs needed? Mary Alice Rutledge LPN * Telephone Encounter - Victor Manuel [...] advise. * Telephone Encounter - Mary Alice Rutledge LPN - 01/17/2024 8:55 AM EDT Message left for patient to contact office for medication instructions and to schedule a lab appointment for 01/22/2024. Mary Alice Rutledge LPN * Telephone Encounter - Paty Arciniega DO - 01/17/2024 8:37 AM EDT Her D-dimer was normal. Hold apixaban the rest of this week and come in Monday morning for lab workfiled under this counter. Restart apixaban after lab work drawn. Paty Arciniega DO documented in this encounterGood Samaritan Hospital08-07-2024 Telephone encounter Note * Telephone Encounter - Paty Arciniega DO - 01/17/2024 1:01 PM EDT I was not informed that she saw a vascular surgeon and I have no idea why she was changed to Lovenox. I recommend she continue Lovenox and follow-up with them. Perhaps I could get their office note? Paty Arciniega DO [facility]08-07-2024 Telephone encounter Note* Telephone Encounter - Mary Alice Rutledge LPN - 01/17/2024 10:25 AM EDT [facility] put patient on Lovenox 90 mg BID beginning 01/08/2024. She has not been taking Eliquis since then. When should she stop Lovenox for labs needed? Mary Alice Rutledge LPN [facility]08-07-2024 Telephone encounter Note* Telephone Encounter - Dylan Villar Victor Manuel - 01/17/2024 10:20 AM EDT Patient called in stating that she had taken eliquis morning of 01/07, while at hospital same day, they told her to stop eliquis and they gave her a shot. Patient unsure of name of injection. She is asking if this changes request from Dr. Arciniega. Please advise. [facility] Work Phone: 1(478) 674-356008-07-2024 Telephone encounter Note* Telephone Encounter - Mary Alice Rutledge LPN - 01/17/2024 8:55 AM EDT Message left for patient to contact office for medication instructions and to schedule a lab appointment for 01/22/2024. Mary Alice Rutledge LPN T [facility]08-07-2024 Telephone encounter Note* Telephone Encounter - Paty Arciniega DO - 01/17/2024 8:37 AM EDT Her D-dimer was normal. Hold apixaban the rest of this week and come in Monday for lab workfiled under this counter. Restart apixaban after lab work drawn. Paty Arciniega DO [facility]08-05-2024 Telephone encounter Note* Telephone Encounter - Mary Alice Rutledge LPN - 01/15/2024 10:58 AM EDT Patient scheduled today for D Dimer. Mary Alice Rutledge LPN [facility]08-05-2024 Miscellaneous Notes* Telephone Encounter - Mary Alice Rutledge LPN - 01/15/2024 10:58 AM EDT Patient scheduled today for D Dimer. Mary Alice Rutledge LPN * Telephone Encounter - Mary Alice Rutledge LPN - 01/12/2024 8:16 AM EDT Message left for patient to contact office. Mary Alice Rutledge LPN * Telephone Encounter - Paty Arciniega DO - 01/11/2024 5:09 PM EDT Can let her know that we did receive previous records from [facility]. Not able to confirm that [...] now. Paty Arciniega DO documented in this encounterGood Samaritan Hospital08-02-2024 Telephone encounter Note * Telephone Encounter - Mary Alice Rutledge LPN - 01/12/2024 8:16 AM EDT Message left for patient to contact office. Mary Alice Rutledge LPN [facility]08-01-2024 Telephone encounter Note* Telephone Encounter - Paty Arciniega DO - 01/11/2024 5:09 PM EDT Can let her know that we did receive previous records from [facility]. Not able to confirm that [...] Continue Eliquis for now. Paty Arciniega DO [facility]06-04-2024 Nurse Note* Natalie Mancia LPN - 11/14/2023 1:49 PM EDT New patient, Per Elizabeth Newman : Refer to the hematology service to assess the indications of Eliquis andthe safety of Depo Provera hormonal injections in the background of DVT/PE and Factor V Leiden mutation . Natalie Mancia LPN [facility]06-04-2024 Nurse Note* Natalie Mancia LPN - 11/14/2023 1:49 PM EDT New patient, Per Diya Newmanf : Refer to the hematology service to assess the indications of Eliquis andthe safety of Depo Provera hormonal injections in the background of DVT/PE and Factor V Leiden mutation . Natalie Mancia LPN documented in this encounterGood Samaritan Hospital06-04-2024 History of Present illness Narrative* Paty Arciniega DO - 11/14/2023 1:47 PM EDT Patient referred by Dr. Elizabeth Marques for h/o factor V Leiden. The impression and plan will be communicated by way of the shared electronic record or faxed under separate cover letter. HPI: Patient is a 38-year-old female with past medical history as outlined below. DVT left leg diagnosed somewhere [id number]. Anticoagulated for several months. Multiple PEs. Anticoagulated [...] early to have tested positive for . [facility]. On Depo-Provera since about 2015. Was admitted to [facility] in August of this year [...] of a lower extremity duplex ultrasound at [facility] from 08/07/2020 showing partial compressibility with bright [...] C (97.6 F), height 160 cm (5' 3"), [id number] kg (194 lb), SpO2 98%. Well-appearing and in no acute distress. EYES: Sclerae are anicteric bilaterally. RESPIRATORY: Inspiratory breath sounds are of normal intensity in all bermudez. CARDIOVASCULAR: Rhythm is regular. ABDOMEN: The abdomen is nondistended. Extremities: Mild chronic appearing swelling both lower extremities. SKIN: Few scattered varicose veins lower extremities. [facility]. ASSESSMENT/PLAN: (D68.51) Factor V Leiden (HCC) (primary encounter diagnosis) (Z86.718) History of DVT of lower extremity Assessment: [...] to see the patient (reviewing records via [facility] electronic record), xxxc-rf-bbwd patient care, completing clinical documentation, obtaining and/or reviewing separately obtained history, performing a medically appropriate examination, counseling and educating the patient/family/caregiver, ordering medications, tests, or procedures, communicating with other HCPs (not separately reported), and communicating results to the patient/family/caregiver. Paty Arciniega DO documented in this encounterGood Samaritan Hospital06-03-2024 NoteHNO ID: [id number] Author: ELIZABETH MARQUES MD Service: ? Author Type: Physician Type: Progress Notes Filed: 11/13/2023 14:34 Note Text: [facility] Initial Visit Consultation is requested by: Janet Fernandez [address] [facility] [address] PCP: To use this Smartlink, specify the [...] right facial weakness and was admitted to [facility]. As per the patient, stroke was [...] 109/73 Pulse 85 Ht 160 cm (5' 3") Wt 90.7 kg (200 lb) BMI 35.43 [...] side Coordination: Rapid alternating movements symmetric bilaterally. Loheky-ho-vsdj, without dysmetria bilaterally. Gait: Narrow-based, normal spaced and stable without assistance LABS Cholesterol: No results found for: "CHOL" No results found for: "LDL" No results found for: "HDL" No results found for: "TG" Diabetes: No results found for: "HBA1C" IMAGING MRI brain: mild bilateral white matter changes Patient Entered Questionnaires PROMIS/NeuroQoL Score Percentiles 09/12/2023 Physical Health Physical Function Percentile 18* 09/12/2023 Mental Health NeuroQol Cognitive Function Percentile 10 09/12/2023 05/29/2023 PROMIS Global Health Scale Physical (more content not included)...[facility] [id number] History of Present illness Narrative* Elizabeth Marques MD - 11/13/2023 1:57 PM EDT [facility] Initial Visit Consultation is requested by: Janet Fernandez [address] [facility] [address] PCP: To use this Smartlink, specify the [...] and right facial weakness and was admitted [facility]. As per the patient, stroke was suspected and was advised MRI brain as out patient. However, the MRI brain that was done two months later was negative for stroke. No recurrence of stroke symptoms. She was referred to the stroke clinic for further evaluation and management. Patient has not been adherent with the [employer] Review of system: Mild snoring but no [...] 109/73 Pulse 85 Ht 160 cm (5' 3") Wt 90.7 kg (200 lb) BMI 35.43 [...] side Coordination: Rapid alternating movements symmetric bilaterally. Yureqn-lp-bgxd, without dysmetria bilaterally. Gait: Narrow-based, normal spaced and stable without assistance LABS Cholesterol: No results found for: "CHOL" No results found for: "LDL" No results found for: "HDL" No results found for: "TG" Diabetes: No results found for: "HBA1C" IMAGING MRI brain: mild bilateral white matter [...] At that time, she was admitted to [facility] where stroke was suspected. The MRI [...] which included preparing to see the patient, xbqf-xi-ilnh patient care, completing clinical documentation, obtaining and/or reviewing separately obtained history, performing a medically appropriate examination, counseling and educating the patient/family/caregiver, ordering medications, tests, or procedures, independently interpreting results (not separately reported), and communicating results to the patient/family/caregiver SIGNATURE Elizabeth Marques MD Janet Fernandez [address] [facility] [address] To use this Smartlink, specify the provider ID whose address you want to display, e.g., .PROVADDR[1(where 1 is the provider ID). documented in this encounterGood Samaritan Hospital05-16-2024 Telephone encounter Note * Telephone Encounter - Paty Arciniega DO - 10/26/2023 3:51 PM EDT Has been on apixaban for some time. Consult not urgent. Next new patient appointment with me or . [facility] Work Phone: 1(519) 452-268705-16-2024 Miscellaneous Notes* Telephone Encounter - Paty Arciniega [...] Please review and advise documented in this encounterGood Samaritan Hospital05-16-2024 Telephone encounter Note * Telephone Encounter - Danitza Lucero - 10/26/2023 8:10 AM EDT Patient is being referred to Hematology. DX: DVT, PE, Factor V L[place]en Insurance: [place] [employer] Referred by: Elizabeth Marques Please review and advise [facility]05-15-2024 Telephone encounter Note* Telephone Encounter - Shanda Parikh - 10/25/2023 10:56 AM EDT Submitted through portal Consult to Hematology/Oncology #[id number], to be scheduled in [facility]05-15-2024 Miscellaneous Notes* Telephone Encounter - Shanda Parikh - 10/25/2023 10:56 AM EDT Submitted through portal Consult to Hematology/Oncology #[id number], to be scheduled in [facility] documented in this encounterGood Samaritan Hospital05-10-2024 Telephone encounter Note * Telephone Encounter - Aye Young RN - 10/20/2023 11:21 AM EDT Approved on October 04 Approved for quantity limit 1 injection per 30 days Authorization Expiration Date: 03/31/2024 Drug Aimovig 70MG/ML auto-injectors [facility] cloud logo Form [place] Medicaid [employer] Electronic PA Form (2016 [place]) [facility]05-10-2024 Miscellaneous Notes* Telephone Encounter - Aye Young RN - 10/20/2023 11:21 AM EDT Approved on October 04 Approved for quantity limit 1 injection per 30 days Authorization Expiration Date: 03/31/2024 Drug Aimovig 70MG/ML auto-injectors [facility] cloud logo Form [place] Medicaid [employer] Electronic PA Form (2016 [facility]) documented in this encounterGood Samaritan Hospital05-03-2024 History of Present illness Narrative* Negra [...] Bailey - 10/02/2023 5:40 PM EDT Nomad# [id number] +GPS , Date shipped out: 10/01 SENT FEDEX DELIVERY - FEDEX RETURN Tracking mailout: [id number] Tracking return: [phone] * García Maxwell III, PhD - 09/25/2023 1:42 PM EDT September 25, 2023 Standing PSG Orders signed in the last 90 days None Future PSG Orders signed in the last 90 days Ordered Auth. provider HOME SLEEP APNEA TEST (HSAT) [[id number]] 09/14/23 Janet Fernandez APRN.TITLE ABSTRACTOR Assoc. diagnoses: Snoring [R06.83], Other fatigue [R53.83] [...] (HSAT) Special instructions: None-follow laboratory protocol [facility] Staff Note: I have read the above protocol, edited as needed, and agree to the plan. García Maxwell III, PhD 1:53 PM, 09/25/2023 * Mita Arellano - 09/25/2023 11:38 AM EDT September 25, 2023 An order has been received for Home Sleep Apnea Test (HSAT) from Janet Samuels, MARLEEN.huber [facility] Staff. Visit prep complete. Comments :No The sleep study is scheduled for 10/02. Insurance: Payor: [place] / Plan: [place] / Product Type: Medicaid / Payer/Plan Subscr Sex Relation Sub. Ins. ID Effective Group Num 1. [place] [facility]* CODY SANTANA 1985 Female Self [id number] 07/13/22 [address] Mita Arellano documented in this encounterGood Samaritan Hospital04-22-2024 History of Present illness Narrative* Kirby [...] visit. 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 Date: October 02, 2023 Patient Name: Cody Santana Referring physician: Janet Fernandez [address] [facility] [address] Reason for Evaluation: Headaches Consultation requested by [...] note from 04/13/2023. She was hospitalized at [facility] and told that she had a "mini stroke." She currently gets about 15 headache days [...] MD Staff, Head[facility] [place] Board Certified in Adult Neurology by ABPDelma Board Certified in Headache Medicine by [facility] Clinical Sprinkler Tender of Neurology with [facility]/ILYA [address] [place] [address]/ [place] [id number] Office: [phone] Portions of this note have been composed using voice recognition and may contain loan collector errors The results of this consult will be sent to the referring provider by either electronic medical record or standard mail. CC: Referring Physician: Janet Fernandez [address] [place] [address] PCP: To use this Smartlink, specify the provider ID whose address you want to display, e.g., .PROVADDR[1(where 1 is the provider ID). documented in this encounterGood Samaritan Hospital04-04-2024 History of Present illness Narrative* Janet Fernandez APRN.TITLE ABSTRACTOR - 09/14/2023 11:30 AM EDT Images from the original note were not included. [facility] [place] Follow-up Visit Follow-up note September 14, 2023 [...] t ongue/cheek bite. Workup was completed at [facility] including MRI Brain, CTA head/neck, and echocardiogram. [...] ongoing changes. Additionally, records not received from [facility], however, she reports she has not worn a cardiac cath tech and Zio will be ordered at this [...] a headache. Went to the ED at [facility] since last visit. Was at work and felt "weird." [place] like she was spacing out. Went on break and felt more spacey. Speech was off; garbled. States she had generalized weakness in both legs. No focal n/t. No loss of vision, double vision. No syncope or LOC. Per [facility] ED on 08/29/23: States she has been [...] kg (200 lb) Height: 160 cm (5' 3") Patient is alert and in no distress. [...] DATE OF EXAM: May 16 2023 4:13PM SPM 0295 - MRI BRAIN WO/W IVCON / [...] B/B, tongue/cheek bite. Previous workup completed through [facility] included MRI brain, CTA head/neck, and echocardiogram. [...] noted slurred/garbled speech. Workup was completed through [facility] at that time including CT brain, CTA [...] HOME SLEEP APNEA TEST (HSAT) Janet Fernandez APRN.KOLE I spent a total of 40 minutes on the date of the service which included preparing to see the patient, iwco-hp-goqc patient care, completing clinical documentation, obtaining and/or reviewing separately obtained history, performing a medically appropriate examination, counseling and educating the pat ient/family/caregiver, and ordering medications, tests, or procedures. documented in this encounterGood Samaritan Hospital03-20-2024 Hospital Discharge instructions Additional Instructions Date of Discharge: 08/30/23[facility] Work Phone: 1(472) 999-245503-20-2024 History and physical note Author Bridgett Ponce [facility] August 30, 2023 12:59am Note Date/Time August 29, 2023 11: 07pm [facility] Medical Records Department [address] [place] [address] H&P Exam - Hospitalist 08/29/23 2306 MR#: [id number] Acct: [id number] Name: CODY SANTANA Rep #:[id number] : 1985 37 From: Bridgett Ponce MD PCP: ISABEL Reynaga Status: ADM MARGY Location: [place] [address] HPI - General General Date of Admission: [...] Depression/Suspected Bipolar disorder who presents to the [facility] ED on 08/29/23 with history of generalized [...] EKG with SR without acute evidence ofischemia. [facility] Medical History Anxiety and depression Chronic migraine Chronic neck and back pain Factor 5 Leiden mutation, heterozygous History of nephrolithiasis History of venous thromboembolism Obesity Tobacco use Home Medications medroxyprogesterone 150 mg/mL intramuscular syringe 150 mg IM .[id number] control 01/30/15 [History Last Taken Unknown] topiramate [...] Reaction Status Date / Time acetaminophen [From [place]] Allergy Itching Verified 08/29/23 21:04 hydrocodone [From [place]] Allergy Itching Verified 08/29/23 21:04 cephalexin monohydrate [...] (Auto) 49.4, Lymph % (Auto) 42.1 H, Valencia % (Auto) 5.7, Eos % (Auto) 1.9, [...] Depression/Suspected Bipolar disorder who presents to the [facility] ED on 08/29/23 with history of generalized [...] Eliquis regimen. Charges/Coding Visit Charges Inpatient E&M: 06094 Init Hosp L2 08/30/23 0059 <Electronically signed by Bridgett Ponce MD> Cosigner Signature (if applicable): CC: PHARMACIST PER DIEM-C NP. Neli Tripp; Dr. Bridgett Ponce MD~ Signed [facility] Work Phone: 1(670) 422-569603-20-2024 Discharge summary Author Axel Kaur [facility] August 29, 2023 11:29pm Note Date/Time August 29, 2023 10: 07pm [facility] Medical Records Department [address] [place] [address] Emergency Department Summary 08/29/23 MR#: [id number] Acct: [id number] Name: CODY SANTANA Rep #:[id number] : [...] 150 mg/mL intramuscular syringe 150 mg IM .[id number] control 01/30/15 [History Last Taken Unknown] topiramate [...] Reaction Status Date / Time acetaminophen [From [place]] Allergy Itching Verified 08/29/23 21:04 hydrocodone [From [place]] Allergy Itching Verified 08/29/23 21:04 cephalexin monohydrate [...] (Auto) 49.4 Lymph % (Auto) 42.1 H Valencia % (Auto) 5.7 Eos % (Auto) 1.9 [...] MD at 22:33 EDT , ADDENDUM: 08/29/23 7549 IMPRESSION: No acute intracranial finding. N.B. : [...] There is sinus variation. EKG is normal. MI interval is 150 ms. QRS duration 84 ms. QT durations 190 ms. Charlotte is normal) Management Discussion w/another healthcare provider: [...] Brain TIA Disposition Disposition: Acute Care Hospital [facility] What to do if you have Problems For any increased pain, shortness of breath, bleeding, nausea or vomiting, chestpain, or any unexpected problems, contact your Primary Care Provider. Call [facility] ([phone]) or report to the closest Emergency Room. Call 911 if necessary. 08/29/23 5931 <Electronically signed by Axel Kaur MD> Cosigner Signature (if applicable): CC: PHARMACIST PER DIEMHermelindoC PHARMACIST PER DIEM. Neli Tripp ~ Signed [facility] Work Phone: 1(669) 959-235803-20-2024 Discharge summary Author Axel Kaur [facility] August 29, 2023 11:29pm Note Date/Time August 29, 2023 10: 07pm [facility] Medical Records Department [address] [place] [address] Emergency Department Summary 08/29/23 MR#: [id number] Acct: [id number] Name: CODY SANTANA Rep #:[id number] : [...] 150 mg/mL intramuscular syringe 150 mg IM .[id number] control 01/30/15 [History Last Taken Unknown] topiramate [...] Reaction Status Date / Time acetaminophen [From [place]] Allergy Itching Verified 08/29/23 21:04 hydrocodone [From [place]] Allergy Itching Verified 08/29/23 21:04 cephalexin monohydrate [...] noted Neuro Narrative: There is no dysmetria. [place] Coma Scale: document GCS findings Spontaneous Obeys [...] (Auto) 49.4 Lymph % (Auto) 42.1 H Valencia % (Auto) 5.7 Eos % (Auto) 1.9 [...] There is sinus variation. EKG is normal. MI interval is 150 ms. QRS duration 84 ms. QT durations 190 ms. [place] is normal) Management Discussion w/another healthcare provider: [...] Brain TIA Disposition Disposition: Acute Care [facility] What to do if you have Problems For any increased pain, shortness of breath, bleeding, nausea or vomiting, chestpain, or any unexpected problems, contact your Primary Care Provider. Call [facility] ([phone]) or report to the closest Emergency Room. Call 911 if necessary. 08/29/232328 <Electronically signed by Axel Kaur MD> Cosigner Signature (if applicable): CC: PHARMACIST PER DIEMHermelindoC VINOD. Neli Tripp ~ Signed [facility] Work Phone: 1(427) 108-591603-18-2024 Miscellaneous Notes* Telephone Encounter - Janet Fernandez APRN.CNP - 08/28/2023 11:15 AM EDT Pt already had lab work completed that was ordered at that time. * Telephone Encounter - Shahla Guerra OCCA - 08/28/2023 10:40 AM EDT Patient asking if new orders are necessary for lab draws. Last visit-- tele health 05/31/2023 Lab orders placed 06/06/2023 documented in [facility]Good [facility]23 NoteHNO ID: [id number] Author: Heron Ardon RT(R) Service: Radiology Author [...] Routine Brain SIGNATURE: RT Jona(R) PATIENT NAME: Cody Santana DATE: May 16, 2023 TIME: 4:14 [facility]12-05-2023 NoteHNO ID: [id number] Author: Greg Brennan RN Service: Radiology Author [...] Julianchristiano DATE: May 16, 2023 TIME: 3:51 [facility]12-01-2023 Miscellaneous Notes* Telephone Encounter - Shahla Guerra OCCA - 05/12/2023 11:53 AM EST Received MRI insurance authorization from [facility] dated from 04/19/2023-05/19/2023. Auth # [id number] documented in this encounterGood [facility]aritan [facility]10-25-2023 Miscellaneous Notes* Telephone Encounter - Lulu Freire - 04/05/2023 11:05 AM EDT Spoke with the patient and scheduled her appointment. * Telephone Encounter - Lulu Freire - 04/05/2023 9:41 AM EDT Left the patient another voice message about calling to schedule an appointment for TIA G45.9. Patient's phone# [phone] & [phone] * Telephone Encounter - Lulu Freire - 03/30/2023 9:22 AM EDT Received outside provider referral and medical records from the nurse. Left the patient a voice message to call the office to schedule an appointment with a neurologist for Possible TIA - abnormal MRI. documented in this encounterGood [facility]06-29-[facility]23 Hospital Discharge instructions Patient Education 12/08/2022 [...] including vitamins, herbs, eye drops, creams, and ojlr-qeh-invuzrq medicines. Any problems you or family members [...] provider tells you to take them. ?Taking fmub-mwo-nrvxfie medicines, vitamins, herbs, and supplements. General instructions [...] 06/17/2008 Document Revised: 05/11/2018 Document Reviewed: 04/25/2018 [employer] Patient Education 2020 [employer]. 12/08/2022 11:17:11 Surgical Spinal Decompression, Care After [...] and water are not available, use hand piece dye worker. ?Change your dressing as told by your [...] care provider or physical therapist. Avoid doing facilities maintenance worker that require a lot of effort, such [...] is safe to drive. General instructions Take djah-twv-ejpsqaw and prescription medicines only as told by [...] as fried or sweet foods. ?Take an eiep-cld-evwcbws or prescription medicine for constipation. If you [...] Follow instructions about activity and movements. Take yqox-pjy-qqpelyb and prescription medicines only as told by your health care provider. Make sure you know what symptoms should cause you to get help right away. This information is not intended to replace advice given to you by your health care provider. Make sure you discuss any questions you have with your health care provider. Document Released: 10/13/2015 Document Revised: 05/11/2018 Document Reviewed: 04/25/2018 [employer] Patient Education 2020 [employer]. 12/08/2022 11:16:37 Bleeding Disorder Bleeding Disorder A [...] may be referred to a blood specialist (airframe technical officer) for more tests, such as: Complete blood [...] Follow these instructions at home: Medicines Take lxrr-iii-uavtbxz and prescription medicines only as told by your health care provider. Talk with your health care provider before you take any new medicines. Certain medicines may increase your risk for dangerous bleeding. These include: ?Apeg-jkj-mudrjhp medicines that contain aspirin. ?NSAIDs such as [...] injury or bruising, such as contact sports. Florence your teeth using a soft toothbrush. Use [...] 04/06/2018 Document Revised: 09/18/2019 Document Reviewed: 04/06/2018 [employer] Patient Education 2020 [employer]. 12/08/2022 11:16:34 Anticoagulation, Generic Anticoagulation, Generic Anticoagulants [...] to work. 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 Prescription and yaii-roe-lqyakmr medicine consistency is critical to warfarin management. [...] not take or discontinue any prescribed or joju-lzr-blmrjji medicine except on the advice of your [...] K include spinach, kale, broccoli, cabbage, greens, Austin sprouts, asparagus, Bok Jovani, coleslaw, parsley, and [...] 05/29/2006 Document Revised: 06/03/2014 Document Reviewed: 12/31/2008 [facility] Patient Information 2015 [employer]. This information is not intended to replace [...] types of hard cervical collars. Follow the professional sports scout's instructions for use. These are general guidelines. [...] 02/18/2005 Document Revised: 12/04/2018 Document Reviewed: 04/20/2018 [employer] Patient Education 2020 [employer]. Follow Up Care 10/27/2022 13:37:36 With:LES MICHEL DO, Orthopedic Address: [address], [address] [facility] [place] [address]- [phone] When: Unknown [facility] 06-29-2023 Note Discharge Instructions Thank you for allowing [facility] to assist you with your healthcare needs. The following is importantdischarge information regarding your hospital visit. Your Care Team Daniel Michel DO [facility] Care Team Your Diagnosis Cervical spondylosis [...] not take any medications, herbal, prescription, or hoax-okr-rlaoskf unless prescribed for the next 12 weeks Remember to take your pain medication and/or muscle relaxants as ordered to keep your pain under control No NSAIDs for 3 months, will interfere with the fusion. Swelling around the nerves can cause continued numbness and tingling for days or weeks after surgery Follow Up Appointments Follow Up with LES MICHEL DO, Orthopedic When Where: [address] [place] [address] [address] [facility] [place] [address] [phone] Allergies Keflex (Weakness) [place] (Itching) Percocet (Itching) Vicodin (Itching) cephalexin Medications Please ask your primary doctor or pharmacist before taking any other medication not listed, including over the counter drugs, herbal medications, vitamins and or supplements as they may interact withyour home medications. What How Much When Why Instructions Last Dose Unchanged acetaminophen- hydrocodone ([place] 325- 5 mg oral tablet) 1 tab(s) by mouth Every 6 hours as needed for for pain Cervical spondylosis Duration: 7 Days Pickup at [facility] 12/08 @ 08:35 Unchanged albuterol (Albuterol (Eqv-Ventolin [...] each nostril Once a day Pharmacy Information [facility]: [address] [place], [place] [phone] What How Much When Comments Stop Taking [...] including vitamins, herbs, eye drops, creams, and yklh-mwz-etiftle medicines. Any problems you or family members [...] tells you to take them. ? Taking oqjj-gba-jwucjyz medicines, vitamins, herbs, and supplements. General instructions [...] 06/17/2008 Document Revised: 05/11/2018 Document Reviewed: 04/25/2018 [employer] Patient Education 2020 [employer]. Surgical Spinal Decompression, Care After This sheet [...] and water are not available, use hand piece dye worker. ? Change your dressing as told by [...] care provider or physical therapist. Avoid doing facilities maintenance worker that require a lot of effort, such [...] is safe to drive. General instructions Take pcyj-hac-exzimhz and prescription medicines only as told by [...] fried or sweet foods. ? Take an ubeg-gjt-aolmuwn or prescription medicine for constipation. If you [...] Follow instructions about activity and movements. Take qsqi-xsy-oyekfgo and prescription medicines only as told by your health care provider. Make sure you know what symptoms should cause you to get help right away. This information is not intended to replace advice given to you by your health care provider. Make sure you discuss any questions you have with your health care provider. Document Released: 10/13/2015 Document Revised: 05/11/2018 Document Reviewed: 04/25/2018 [employer] Patient Education 2020 [employer] Bleeding Disorder A bleeding disorder causes [...] may be referred to a blood specialist (airframe technical officer) for more tests, such as: Complete blood [...] Follow these instructions at home: Medicines Take quda-ohm-zlzpmmy and prescription medicines only as told by your health care provider. Talk with your health care provider before you take any new medicines. Certain medicines may increase your risk for dangerous bleeding. These include: ? Dgkg-nsx-rrfjnfv medicines that contain aspirin. ? NSAIDs such [...] injury or bruising, such as contact sports. Florence your teeth using a soft toothbrush. Use [...] 04/06/2018 Document Revised: 09/18/2019 Document Reviewed: 04/06/2018 [employer] Patient Education 2020 [employer]. Anticoagulation, Generic Anticoagulants are medicines used to [...] to work. 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 Prescription and qftb-qda-qfdxfky medicine consistency is critical to warfarin management. [...] not take or discontinue any prescribed or vjxd-vqh-zwchrao medicine except on the advice of your [...] K include spinach, kale, broccoli, cabbage, greens, [place] sprouts, asparagus, Bok Jovani, coleslaw, parsley, and [...] Document Reviewed: 12/31/2008 [employer] Patient Information 2015 [employer]. This information is not intended to replace [...] types of hard cervical collars. Follow the professional sports scout's instructions for use. These are general guidelines. [...] 02/18/2005 Document Revised: 12/04/2018 Document Reviewed: 04/20/2018 [employer] - Financial Reconciliation Patient Education 2020 [employer] Additional Information VACCINATE! IT SAVES LIVES! Members of the community who have not yet received the COVID-19 vaccine and would like to receive it can visit one of [facility] vaccine clinics. There are many vaccine clinic locations within the [facility]. For locations and available times, please visit [email or web address].[place].gov/. It is important to note that some COVID mobile vaccine clinics are held outdoors and may be canceled in rainy or stormy conditions. To learn more about pediatric vaccinations (ages 5-11), we invite you to visit the [facility] webpage. https://www.[email or web address].org/pages/8687-Yjxgr-Fgirrndxykw-Tvvdzvozne-Wwbbj-Xrn stions.htmlTo learn more about the COVID-19 vaccine, we invite you to visit the CDC website for a list of frequently asked questions.https://www.cdc.gov/coronavirus/2019-ncov/vaccines/faq.html [employer] Patient Portal Access Instructions: Stay connected with your healthcare team and access your personal medical information anytime with the [employer] Patient Portal. Please follow the directions below to create your [employer] account: 1.Access the email account you provided upon registration to the hospital/physician office.2.Look for an invitation email from [facility].3.Open the email and access the invitation link: AcceptInvitation to [employer].4.Fill in the required bermudez to create your account. To access your account, visit [employer]!OneChart. Click the blue button labeled "Access Patient Portal" and then log in with the username and password that you created in the steps above. You will be able to view your test results, lab results, a summary of your visits, upcoming appointments and more. There is also a convenient messaging option where you can send secure messages to your p [employer]. In addition, you will have the ability to download any documents or summaries to your computer and/or send the information securely to a physician. Remember that your healthcare information is confidential, so carefully consider who you will allowto register on the [employer] Patient Portal for access to your information. You can also access the [employer] Patient Portal on the [employer] nikki. Simply click on "Patient Portal" and then log into your account. If you would like to receive a full copy of your medical records, please contact the [facility] Medical Records Department by calling [phone], Monday through Monday between 8 a.m. and 4:30 p.m. HOW TO SAFELY DISPOSE OF PRESCRIPTION MEDIC (more content not included)... [facility] Note ORIGINAL Images acquired, not reported on this accession number. [facility] Note ORIGINAL Images acquired, not reported on this accession number.[facility] Anesthesiology Consult note Patient: CODY [...] Cephalexin- No reactions were documented. Keflex- Weakness. [place]- Itching. Percocet- Itching. Vicodin- Itching., Allergies (5) [...] q5min, PRN: Pain, scale 4-6 Prescriptions Prescribed [place] 325- 5 mg oral tablet: 1 tab(s), [...] ESWL (extracorporeal shockwave lithotripsy) of ureteric calculus ([id number]). Comments: 11/25/2022 14:01 Elaine Mendieta RN with ureteral stent, x2 Cystoscopy ([id number]). CTR - carpal tunnel release ([id number]). Comments: 11/25/2022 14:02 Elaine Mendieta RN bilateral Wedge excision of skin of nail fold (eg, for ingrown toenail) (55509). Social History Social & Psychosocial Habits Alcohol 11/25/2022 Use: Never Substance Abuse 11/25/2022 Use: Never Tobacco 11/25/2022 Tobacco Use: 10 or more cigarettes (1/ Type: Cigarettes Number of years: 18 Home/Environment 11/25/2022 Domestic Concerns None Living situation: Home/Independent Primary Executive Advisor: Self Current Home Treatments None Special Services [...] Signs(last 24 hrs) Last Charted Heart Rate Dhryajxno48 bpm (DEC 07 08:50) Resp Rate H 21br/min (DEC 07 06:50) SBP80 mmHg (DEC 07 08:45) DBP57 mmHg (DEC 07 08:45) Measurements from flowsheet : Measurements 12/07/2022 6:50 EDT Height 160 cm Admission Weight 101 kg Heartwell Body Weight 52.38 kg Pain assessment: Pain [...] EDT SN - CAt - Role Performed Academic Physician (Modified) 12/07/2022 8:50 EDT Heart Rate Monitored [...] 12/07/2022 7:15 12/07/2022 7:35 EDT SN - VA - Medication TOPICAL THROMBIN SN - VA - Route of Administration Local SN - VA - By (Single) SN - VA - By (Single) 12/07/2022 7:35 EDT Heparin [...] TAE .25 IN X 12 IN 100/CA 74035-274 SN - TDC - Device Type TRAY GONZALEZ CATH 16F W/BAG 10/CA [id number] SN - TDC - Location ANTERIOR NECK [...] Attendee SN - CAt - Role Performed SANDBLASTER GLASS SN - CAt - Role Performed Scrub 1 SN - CAt - Role Performed Biological Chemist 1 SN - CAt - Role Performed Other SN - CAt - Role Performed Case Advocate SN - CAt - Role Performed Carbonation Equipment Operator SN - CAt - Role Performed Case Advocate SN - CAt - Role Performed Physician Hand Spring Repairer 12/07/2022 7:19 EDT SN - CAt - [...] Person #1 We May Share PRIMITIVO Santana [phone] Designated Person #1 Relationship Father Designated Person #2 We May Share PRIMITIVO Kwan [phone] Designated Person #2 Relationship Sibling Privacy Restrictions Requested None Height 160 cm Admission Weight 101 kg Heartwell Body Weight 52.38 kg Temperature Temporal Artery [...] No further teaching needed Preferred Written Language Latvian Preferred Spoken Language Latvian General Infection Prevention Strategies Hand hygiene, Remind [...] Allergies Yes Anesthesia Extension Set Applied Yes Accounting Support Specialist On Yes Consent Form Signed Yes Patient [...] QC PRGUP Positive . Assessment and Plan [place] Society of Anesthesiologists (ASA) physical status classification: Class III. Anesthetic Preoperative Plan Premedication: intravenous. Anesthetic technique: General. Induction: intravenously. Maintenance airway: Oral endotracheal tube. Postoperative pain management: Per surgeon. Risks discussed: nausea, vomiting, sore throat. Informed consent: signed by patient. Digitally Signed by GARRY RYDER on 12/07/2022 08:58 AM [facility] Note Date of Service 12/07/2022 [...] LES MICHEL DO on 12/08/2022 10:58 AM [facility] note Author Gabrielle Lucio [facility] August 30, 2023 2:38pm Note Date/Time August 30, 2023 2:3 8pm [facility] Medical Records Department [address] [place] [address] Counseling Note - Pharmacy 08/30/23 1438 MR#: [id number] Acct: [id number] Name: CODY SANTANA Rep #:[id number] : 1985 37 From: Gabrielle Lucio PCP: ISABEL Reynaga Status: ADM MARGY Y Location: [place] [address] Pharmacy [place] Med Reconciliation Pharmacy Service has performed discharge medication reconciliation for this patient. The patient's discharge medication list was reviewed for discrepancies and discrepancies were resolved. Medications at Discharge Home Medications medroxyprogesterone 150 mg/mL intramuscular syringe 150 mg IM .[id number] control 01/30/15 topiramate 25 mg tablet 200 [...] mg PO DAILY PRN MIGRAINE 08/30/23 08/30/23 4705 <Electronically signed by Gabrielle Lucio> Date _ Gabrielle Hannonigner Signature (if applicable): Date CC: ~ Signed [facility] Work Phone: Consult note Author Gabrielle Lucio [facility] Note Date/Time October 23, 2024 3:51p m [facility] Medical Records Department [address] [place] [address] Counseling Note - Pharmacy 10/23/24 1550 MR#: [id number] Acct: [id number] Name: CODY SANTANA Rep #:[id number] : 1985 38 From: Gabrielle Lucio PCP: Care Physician,No Primary Status :ADM MARGY Y Location: [place] [address] Pharmacy [facility] Pharmacy Service has performed discharge medication [...] 150 mg/mL intramuscular syringe 150 mg IM .[id number] control 01/30/15 citalopram 40 mg tablet 40 [...] Signature (if applicable): Date CC: ~ Signed [facility] Work Phone: Discharge summary Author Jeovany Walsh [facility] August 30, 2023 2:09pm Note Date/Time August 30, 2023 1:4 6pm [facility] Medical Records Department [address] [place] [address] Instructions for Home/Discharge Instructions 08/30/23 1344 MR#: [id number] Acct: [id number] Name: CODY SANTANA Rep #:[id number] : [...] Soniashasta Monroe; Hunter Bennett; Hollis Núñez; Cristiano Cohn; Tatyana Harden; Elizabeth Herrera;Bridgett Ponce Discharge Orders/Prescriptions Prescriptions: Continued acetaminophen [Tylenol] 325 mg capsule 325 mg PO ONCE PRN (Reason: Pain 1-10 Or Fever) chlorhexidine gluconate [Peridex] 0.12 % mouthwash 15 ml buccal BID Qty: 120 1RF topiramate 25 MG tablet 200 mg PO BID medroxyprogesterone 150 MG/ML syringe 150 mg IM .[id number] citalopram 40 MG tablet 40 mg PO [...] PRN Referrals / Follow Up: Neli Tripp, PHARMACIST PER DIEM-C [Primary Care Provider] - Within 2 Weeks Disposition Disposition (needs filled in before D/C Order can be placed): Home, Self Care 08/30/23 1409<Electronically signed by Jeovany Walsh DO>Jeovany Walsh DO CC: Gracie Bains; Amelie Lopez; PHARMACIST PER DIEMHermelindoC VINOD. Neli Tripp; Hunter Davidson; Cathy Harding MD; [...] Alesha Liu DO; Elizabeth Herrera MD ~ Signed [facility] Work Phone: Discharge summary Author [facility] Note Date/Time October 23, 2024 3:34p [facility] Medical Records Department [address]61 [place] [address] Instructions for Home/Discharge Instructions 10/23/24 1529 MR#: [id number] Acct: [id number] Name: CODY SANTANA Rep #:[id number] : [...] / Restrictions: Patient follows on neurologist in [place]. She had MRI with and without contrast [...] medroxyprogesterone 150 MG/ML syringe 150 mg IM .[id number] citalopram 40 MG tablet 40 mg PO [...] can be placed): Home, Self Care 10/23/24 1535<Electronically signed by Taye Delvalle MD>Taye Delvalle MD CC: Dr. Farhana Harden, DO; No Primary Care Physician ~ Signed [facility] Work Phone: Discharge summary Author Taye Delvalle [facility] Note Date/Time October 23, 2024 3:41p [facility] Medical Records Department [address] [place] [id number] Discharge Summary 10/23/242 MR#: [id number] Acct: [id number] Name: CODY SANTANA Rep #:[id number] : 1985 38 From: Taye Gaston PCP: Care Physician,No Primary Status :ADM MARGY Location: [facility] [place] [address] Providers Date of Admission: 10/22/24 Date of [...] patient states that she follows neurologist in [place] and she had MRI brain with and [...] baseline. She follows her own neurologist in [place] Mild chronic anemia: No acute issues History [...] with her own neurologist she has to pickle sorter her daughter. Discharge medication reconciliation done. Discharge [...] 150 mg/mL intramuscular syringe 150 mg IM .[id number] control 01/30/15 citalopram 40 mg tablet 40 [...] (Auto) 44.7 L, Lymph % (Auto) 43.7 H,Valencia % (Auto) 8.6, Eos % (Auto) 2.2, [...] (Auto) 38.1 L, Lymph % (Auto) 49.8 H,Valencia % (Auto) 7.5, Eos % (Auto) 3.5, [...] IMPRESSION: No acute intracranial abnormality. Reading Location: [facility] Head/Neck CTA 10/22/24 21:18 IMPRESSION: Patent anterior and posterior intracranial and extracranial circulation, withouthemodynamically significant stenosis. Reading Location: [facility] Echocardiogram 10/22/24 21:59 Interpretation Summary Normal LV size. Left ventricular systolic function is normal. The left ventricular ejection fraction is 60 %. Structurally normal valves. Ordering Physician: Farhana Harden Performed By: Ilda Frank RDCS Brain MRI 10/23/24 09:00 IMPRESSION: Bilateral cerebral white matter changes, some with radial orientation, concerning for possible demyelinating disease in a patient of this age. Reading Location: [place] [address] D/C Instructions Discharge Diet: 2000 mg Sodium [...] / Restrictions: Patient follows on neurologist in [place]. She had MRI with and without contrast [...] medroxyprogesterone 150 MG/ML syringe 150 mg IM .[id number] citalopram 40 MG tablet 40 mg PO [...] Self Care Charges/Coding Visit Charges Inpatient E&M: 65017 Disch Hosp >30min 10/23/24 8585 <Electronically signed by Taye Delvalle MD> Cosigner Signature (if applicable): CC: Dr. Taye Delvalle MD; No Primary Care Physician~ Signed [facility] Work Phone: Evaluation + Plan note Future Appointments [facility] Evaluation noteNo assessment information available [facility] Work Phone: Evaluation note* Diagnosis Onset Date Resolution Status Facial droop acute Hypokalemia acute TIA (transient ischemic attack) acute Weakness acute [facility] Work Phone: Evaluation note* Diagnosis Onset Date Resolution Status Facial droop resolved Hypokalemia resolved TIA (transient ischemic attack) resolved Weakness resolved [facility] Work Phone: Evaluation note* Diagnosis Onset Date Resolution Status Acute sinusitis acute Impetigo acute Pain, dental acute [facility] Work Phone: Evaluation note* Diagnosis Onset Date Resolution Status Acute sinusitis acute Impetigo acute Pain, dental acute Gouty arthritis of left great toe acute Brain TIA acute Dysarthria acute Factor V Leiden chronic [facility] Work Phone: Evaluation note* Diagnosis [...] disturbance, unspecified type [facility] Diagnosis Chronic migraine without aura with status migrainosus, not intractable Chronic migraine without aura, without mention of intractable migraine with status migrainosus Snoring Other dyspnea and respiratory abnormality Other fatigue [facility] Diagnosis 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 Facial weakness Facial numbness Disturbance of skin sensation Speech disturbance, unspecified type Nicotine abuse [Z72.0] Tobacco use disorder [facility] Diagnosis Factor V Leiden (HCC)- Primary Primary hypercoagulable state History of DVT of lower extremity Personal history of venous thrombosis and embolism Shkvfz-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 [facility] Diagnosis History of DVT of lower extremity- Primary Personal history of venous thrombosis and embolism [facility] Diagnosis History of DVT of lower extremity- Primary Personal history of venous thrombosis and embolism History of embolic stroke Personal history of other disorders of nervous system and sense organs [facility] Diagnosis Transient speech disturbance- Primary Transient neurological symptoms Daytime sleepiness Snoring Other dyspnea and respiratory abnormality Tobacco use disorder [facility] Diagnosis Acute cough- Primary Rhinosinusitis Unspecified sinusitis (chronic) [facility] Diagnosis Acute cough [facility] Diagnosis Acute cough- Primary Acute cough [facility] Diagnosis Acute pain of left knee- Primary Acute pain of left knee [facility] Diagnosis Acute pain of left knee [facility]* Diagnosis Migraine without aura and without status migrainosus, not intractable- Primary Migraine without aura, without mention of intractable migraine without mention of status migrainosus [facility]* Diagnosis Injury of right shoulder, initial encounter- Primary Injury of right shoulder, initial encounter [facility] Diagnosis Injury of right shoulder, initial encounter [facility] Diagnosis History of DVT of lower extremity- Primary Personal history of venous thrombosis and embolism Factor V Leiden (HCC) Primary hypercoagulable state Lupus anticoagulant disorder (HCC) Primary hypercoagulable state [facility]* Diagnosis Lupus anticoagulant disorder (HCC)- Primary Primary hypercoagulable state [facility]* Diagnosis COVID-19 virus infection- Primary [facility]* Diagnosis URI, acute- Primary Acute upper respiratory infections of unspecified site Acute cough URI, acute Acute upper respiratory infections of unspecified site Acute cough [facility] Diagnosis URI, acute Acute upper respiratory infections of unspecified site Acute cough [facility]* Diagnosis Right wrist pain- Primary Pain in joint, forearm [facility] Diagnosis Chronic migraine without aura with status migrainosus, not intractable- Primary Chronic migraine without aura, without mention of intractable migraine with status migrainosus [facility]* Diagnosis Abnormal finding on MRI [...] without residual deficits [facility]* Diagnosis White matter abnormality on MRI of brain- Primary Nonspecific (abnormal) findings on radiological and other examination of skull and head Facial numbness Disturbance of skin sensation Facial weakness Sensory deficit, right Other general symptoms [facility]* Diagnosis White matter abnormality on MRI of brain- Primary Nonspecific (abnormal) findings on radiological and other examination of skull and head Facial numbness Disturbance of skin sensation Facial weakness Sensory deficit, right Other general symptoms [facility]* Diagnosis Abnormal finding on MRI of brain- Primary Nonspecific (abnormal) findings on radiological and other examination of skull and head [facility] [...] right ankle pain [facility]* Diagnosis Acute right ankle pain [facility]* Diagnosis Chronic migraine without aura with status migrainosus, not intractable Chronic migraine without aura, without mention of intractable migraine with status migrainosus [facility]* Diagnosis Pain in joint, multiple sites Sacroiliac pain Disorders of sacrum Encounter for screening for other musculoskeletal disorder Inflammatory back pain documented in this encounter [facility] note* Diagnosis 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 Ice the area 2-3 times a day for the next 5 days to reduce pain and speed healing. Use crutches for weightbearing if needed and return to the ER should you have any further [facility] Work Phone: Hospital Discharge instructions No data available for this section [facility] Discharge instructions Additional Instructions Please continue to stretch and heat your neck to reduce pain and speed healing. Take the prescribed medications as directed to help control symptoms and return to the ER should you have any further [facility] Work Phone: Hospital Discharge instructions Additional Instructions Your symptoms are consistent with a low back strain. Continue ice. You can use lidocaine patches or the Voltaren gel. It is important you follow-up with your pain management doctor and occupational health for reevaluation.[facility] Work Phone: Hospital Discharge instructions Additional Instructions Follow-up with primary care physician. If you do not have 1 follow-up with the 1 provided above. Follow-up with orthopedic physician. Tylenol as needed for pain. Wrist brace for comfort.[facility] Work Phone: Progress note No data available for this section [facility] Reason for referral (narrative)* Diagnostic Procedure Only (Urgent) - Closed Specialty Diagnoses / Procedures Referred By Contac t Referred To Contact XR IMAGING Diagnoses Acute pain of left knee Procedures XR KNEE GENERAL 4V AP BOTH/PA BOTH/LAT/MERC LEFT RADIOLOGIC EXAM KNEE COMPLETE 4/MORE VIEWS Jay Delgado APRN.TITLE ABSTRACTOR [address] [place] [address] [place] [address] Referral ID Status Reason Start Date Expiration Date V isits Requested Visits Authorized [id number] Closed Auto-Generate d Referral 04/10/2024 05/10/2025 1 1 [facility] for referral (narrative)* Diagnostic Procedure Only (Urgent) - Closed Specialty Diagnoses / Procedures Referred By Contac t Referred To Contact XR IMAGING Diagnoses Acute pain of left knee Procedures XR KNEE GENERAL 4V AP BOTH/PA BOTH/LAT/MERC LEFT RADIOLOGIC EXAM KNEE COMPLETE 4/MORE VIEWS Jay Delgado APRN.TITLE ABSTRACTOR [address] [place] [address] [place] [address] Referral ID Status Reason Start Date Expiration Date V isits Requested Visits Authorized [id number] Closed Auto-Generate d Referral 04/10/2024 05/10/2025 1 1 [facility] for referral (narrative)* Diagnostic Procedure Only (Urgent) - Closed Specialty Diagnoses / Procedures Referred By Contac t Referred To Contact XR IMAGING Diagnoses Injury of right shoulder, initial encounter Procedures XR SHOULDER GENERAL 3V OR MORE AP/TRUE AP/OTHER RIGHT RADEX SHOULDER COMPLETE MINIMUM 2 VIEWS Les Mckeon APRN.TITLE ABSTRACTOR [address] [place] [address] [place] [address] Referral ID Status Reason Start Date Expiration Date V isits Requested Visits Authorized [id number] Closed Auto-Generate d Referral 05/24/2024 06/23/2025 1 1 [facility] for referral (narrative)* Diagnostic Procedure Only (Urgent) - Closed Specialty Diagnoses / Procedures Referred By Contac t Referred To Contact XR IMAGING Diagnoses Injury of right shoulder, initial encounter Procedures XR SHOULDER GENERAL 3V OR MORE AP/TRUE AP/OTHER RIGHT RADEX SHOULDER COMPLETE MINIMUM 2 VIEWS Les Mckeon APRN.TITLE ABSTRACTOR [address] [place] [address] [place] [address] Referral ID Status Reason Start Date Expiration Date V isits Requested Visits Authorized [id number] Closed Auto-Generate d Referral 05/24/2024 06/23/2025 1 1 [facility] for referral (narrative)No reason for referral information availableWUniversity [facility] Work Phone: [facility] Narrative* Diagnostic Procedure Only (Urgent) - Closed Specialty Diagnoses / Procedures Referred By Contac t Referred To Contact XR IMAGING Diagnoses Acute pain of left knee Procedures XR KNEE GENERAL 4V AP BOTH/PA BOTH/LAT/MERC LEFT RADIOLOGIC EXAM KNEE COMPLETE 4/MORE VIEWS Jay Delgado PASTOR.TITLE ABSTRACTOR [address] [place] [address] [place] [address] Referral ID Status Reason Start Date Expiration Date V isits Requested Visits Authorized [id number] Closed Auto-Generate d Referral 04/10/2024 05/10/2025 1 1 [facility] for visit Narrative* Diagnostic Procedure Only (Urgent) - Closed Specialty Diagnoses / Procedures Referred By Contac t Referred To Contact XR IMAGING Diagnoses Injury of right shoulder, initial encounter Procedures XR SHOULDER GENERAL 3V OR MORE AP/TRUE AP/OTHER RIGHT RADEX SHOULDER COMPLETE MINIMUM 2 VIEWS Les Mckeon APRN.TITLE ABSTRACTOR [address] [place] [address] [place] [address] Referral ID Status Reason Start Date Expiration Date V isits Requested Visits Authorized [id number] Closed Auto-Generate d Referral 05/24/2024 06/23/2025 1 1 [facility] for visit Narrative* Diagnostic Procedure Only (Urgent) - Closed Specialty Diagnoses / Procedures Referred By Contac t Referred To Contact XR IMAGING Diagnoses Right wrist pain Procedures XR WRIST GENERAL 3V PA/LAT/OBL RIGHT RADEX WRIST COMPLETE MINIMUM 3 VIEWS Jeovany Joseph PA-C [address] [facility] [address] [place] [address] Phone: tel: fax: [place] [address] Referral ID Status Reason Start Date Expiration Date V isits Requested Visits Authorized [id number] Closed Auto-Generate d Referral 07/29/2024 08/28/2025 1 1 [facility] for visit Narrative* MRI/CT (Routine) - Closed Specialty Diagnoses / Procedures Referred By Contac t Referred To Contact MR IMAGING Diagnoses Demyelinating disease of central nervous system (HCC) Procedures MRI CERVICAL SPINE WO/W IVCON MRI SPINAL CANAL CERVICAL W/O & W/CONTR MATRL Janet Fernandez, PASTOR.TITLE ABSTRACTOR [address] [address] Phone: tel: fax: [place] [address] Referral ID Status Reason Start Date Expiration Date V isits Requested Visits Authorized [id number] Closed Auto-Generate d Referral 12/18/2024 01/17/2025 1 1 [facility] for visit Narrative* Diagnostic Procedure Only (Routine) - Closed Specialty Diagnoses / Procedures Referred By Contac t Referred To Contact XR IMAGING Diagnoses Pain in joint, multiple sites Right leg paresthesias Procedures XR KNEE GENERAL 4V AP BOTH/PA BOTH/LAT/MERC RIGHT RADIOLOGIC EXAM KNEE COMPLETE 4/MORE VIEWS Pramod Gomez, PA-C [address] [place] [address] Phone: tel: fax: [place] [address] Referral ID Status Reason Start Date Expiration Date V isits Requested Visits Authorized [id number] Closed Auto-Generate d Referral 01/02/2025 02/01/2026 1 1 [facility] for visit Narrative* Diagnostic Procedure Only (Urgent) - Closed Specialty Diagnoses / Procedures Referred By Contac t Referred To Contact XR IMAGING Diagnoses Acute right ankle pain Procedures XR ANKLE GENERAL 3V AP/LAT/OBL RIGHT RADEX ANKLE COMPLETE MINIMUM 3 VIEWS Moomaw, Jay, PASTOR.TITLE ABSTRACTOR [address] [place] [address] Phone: tel: fax: [place] [address] Referral ID Status Reason Start Date Expiration Date V isits Requested Visits Authorized [id number] Closed Auto-Generate d Referral 01/11/2025 02/10/2026 1 1 [facility] MRI/CT (Routine) - Closed Specialty Diagnoses / Procedures Referred By Don joe Referred To Contact MR IMAGING Diagnoses Pain in joint, multiple sites Sacroiliac pain Encounter for screening for other musculoskeletal disorder Inflammatory back pain Procedures MRI PELVIS ORTHO GENERAL WO IVCON MRI PELVIS W/O CONTRAST MATERIAL Pramod Gomez PA-C [address] [place] [address] Phone: tel: fax: [place] [address] Referral ID Status Reason Start Date Expiration Date V isits Requested Visits Authorized [id number] Closed Auto-Generat ed Referral Clearance Not Met - Admin/Chairm an/Director Advise to Postpone/Res chedule or Not Proceed 01/16/2025 02/15/2025 1 1 [facility] Summary Purpose Family History No Family History Records Found Relationship Condition Age at Onset Recorded Date/T carole Not Specified Malignant neoplasm Unknown Relationship Condition Age at Onset Recorded Date/T carole mother Cardiac disease Unknown Cerebrovascular accident (CVA) Unknown Diabetes mellitus Unknown Advance Directives No Advanced Directives Records Found Advance Directive Response Recorded Date/ Time Living Will No April 13 8:24pm Power of Route Service Representative No April 13, 2021 8:24pm Advance Directive Response Recorded Date/ Time Living Will No May 06, 2 022 11:35pm Power of Route Service Representative No May 06, 2022 11:35pm Advance Directive Response Recorded Date/ Time Living Will No March 15 8:38pm Power of Route Service Representative No March 15 2 023 8:38pm Advance Directive Response Recorded Date/ Time Living Will No April 29 023 9:11pm Power of Route Service Representative No April 29, 2023 9:11pm Advance Directive Response Recorded Date/ Time Living Will Yes July 18 9:42pm Power of Route Service Representative No July 18, 2023 9:42pm Advance Directive Response Recorded Date/ Time Living Will No August 29, 2023 10:15pm Power of Route Service Representative No August 28 10:15pm Advance Directive Response Recorded Date/ Time Living Will Yes August 30, 2023 1:00am Power of Route Service Representative No August 29 1:00am Advance Directive Response Recorded Date/ Time Living Will No August 17, 2024 4:09pm Power of Route Service Representative No August 17 4:09pm Advance Directive Response Recorded Date/ Time Living Will No August 17, 2024 5:09pm Do you have a Healthcare Power of Route Service Representative? No August 17, 2024 5:09pm Living Will No September 22, 2024 4:57pm Do you have a Healthcare Power of Route Service Representative? No September 22, 2024 4:57pm Advance Directive Response Recorded Date/ Time Living Will No August 17, 2024 5:09pm Do you have a Healthcare Power of Route Service Representative? No August 17, 2024 5:09pm Living Will No September 22, 2024 4:57pm Do you have a Healthcare Power of Route Service Representative? No September 22, 2024 4:57pm Do you have a Healthcare Power of Route Service Representative? No October 22, 2024 9:02pm Advance Directive Response Recorded Date/ Time Living Will No August 17, 2024 5:09pm Do you have a Healthcare Power of Route Service Representative? No August 17, 2024 5:09pm Living Will No September 22, 2024 4:57pm Do you have a Healthcare Power of Route Service Representative? No September 22, 2024 4:57pm Do you have a Healthcare Power of Route Service Representative? No October 22, 2024 11:05pm Advance Directive Response Recorded Date/ Time Do you have a Healthcare Power of Route Service Representative? No October 22, 2024 11:05pm Do you have a Healthcare Power of Route Service Representative? No January 23, 2025 3:14am Advance Directive Response Recorded Date/ Time Do you have a Healthcare Power of Route Service Representative? No October 22, 2024 11:05pm Do you have a Healthcare Power of Route Service Representative? No January 23, 2025 3:14am Do you have a Healthcare Power of Route Service Representative? No January 30, 2025 9:29am Chief Complaint and Reason for Visit Chief [...] LEG WEAKNESS/QU[place]TA[place]/EXPRESSIVE APHASIA October 23, 2024 3:35pm Chief Complaint Admit Date LUMBAR STRAIN/RX HERE October 14, 2024 1:30 pm L LEG WEAKNESS/QUINTA[place]/EXPRESSIVE APHASIA October 22, 2024 9:51pm L LEG WEAKNESS/QUINTANA/EXPRESSIVE APHASIA October 23, 2024 3:35pm right hip January 23, 2025 3: 14am Reason for Visit Admit Date Expressive aphasia October 22, 2024 9:51p m Headache October 22, 2024 9:51p m Left leg weakness October 22, 2024 9:51p m Anemia October 22, 2024 9:51p m Chief Complaint Admit Date LUMBAR STRAIN/RX HERE October 14, 2024 1:30 pm L LEG WEAKNESS/QUINTANA/EXPRESSIVE APHASIA October 22, 2024 9:51pm L LEG WEAKNESS/QUINTANA/EXPRESSIVE APHASIA October 23, 2024 3:35pm right hip January 23, 2025 3: 14am HIP January 30, 2025 9: 29am Reason for Referral Specialty Diagnoses / Procedures Referred By Contalisha t Referred To Contact Diagnoses Migraine without aura and without status [place], [place] [address] [place] [address] Referral ID Status Reason Start Date Expiration Date V isits Requested Visits Authorized [id number] Pending Review 04/29/2024 06/28/2024 1 1 Specialty Diagnoses / Procedures Referred By Contac t Referred To Contact Diagnoses Crqdjc-po-rnrvltxgc syndrome (HCC) Procedures CONSULT TO HEMATOLOGY/ONCOLOGY OFFICE/OUTPATIENT [facility] 60 MINUTES Elizabeth Marques MD [address] [place] [address] Referral ID Status Reason Start Date Expiration Date Visits Requested Visits Authorized [id number] Authorized PCP Requested Referral 10/25/2023 2024 1 1 Specialty Diagnoses / Procedures Referred By Contac t Referred To Contact Neurology Diagnoses Facial weakness Facial numbness Speech disturbance, unspecified type Procedures CONSULT TO NEUROLOGY OFFICE/OUTPATIENT [facility] 60 MINUTES Janet Fernandez APRN.TITLE ABSTRACTOR [address] [place] [id number] Referral ID Status Reason Start Date Expiration Date Visits Requested Visits Authorized [id number] Authorized PCP Requested Referral 09/17/2023 09/16/2024 1 1 Specialty Diagnoses / Procedures Referred By Contac t Referred To Contact Janet Fernandez APRN.TITLE ABSTRACTOR [address] [id number] Referral ID Status Reason Start Date Expiration Date Visits Re quested Visits Authorized [id number] Closed 1 1 Specialty Diagnoses / Procedures Referred By Contac t Referred To [facility] Diagnoses Snoring Other fatigue Procedures HOME SLEEP APNEA TEST (HSAT) SLEEP STD AIRFLOW HRT RATE&O2 SAT EFFORT UNATT Janet Fernandez APRN.TITLE ABSTRACTOR [address] [place] [address] [facility] [place] [address] [place] [address] Referral ID Status Reason Start Date Expiration Date Visits Requested Visits Authorized [id number] Pending Review Auto-Generat ed Referral 09/14/2023 09/13/2024 1 1 Additional Source Comments INFORMATION SOURCE (unrecogn ized section and content) DATE CREATED AUTHOR 04/26/2020 [facility] DATE CREATED AUTHOR AUTHOR'S ORGANIZ ATION 05/18/2023 [facility] DATE CREATED AUTHOR AUTHOR'S ORGANIZ ATION 06/01/2023 [facility] ([place]) DATE CREATED AUTHOR AUTHOR'S ORGANIZ ATION [facility] DATE CREATED AUTHOR AUTHOR'S ORGANIZ ATION 12/30/2024 [facility] DATE CREATED AUTHOR AUTHOR'S ORGANIZ ATION 01/02/2025 [facility] DATE CREATED AUTHOR AUTHOR'S ORGANIZ ATION 03/05/2025 [facility] DATE CREATED AUTHOR AUTHOR'S ORGANIZ ATION 03/27/2025 [facility] Goals (unrecognized section and content) Goals may [...] Active Member Role Status Dates Dilma Gonzalez PHARMACIST PER DIEM, PHARMACIST PER DIEM-C Family Provider Active NP. Neli Tripp PHARMACIST PER DIEM-C Primary Care Provider Activ e Team Status: Active Member Role Status Dates NP. Neli Tripp NP-C Primary Care Provider Activ e Dr. Jeremy Gerard , Emergency Provider Active Dr. Bridgett Ponce MD Admit Provider, Attending Prov ider Active Team Status: Active Member Role Status Dates NP. Neli Tripp PHARMACIST PER DIEM-C Primary Care Provider Activ e Dr. Jeremy Gerard , Emergency Provider Active Dr. Bridgett Ponce MD Admit Provider, Other Provider Active Dr. Lucina Barahona MD Attending Provider, Other Provid er Active Team Status: Active Member Role Status Dates NP. Neli Tripp PHARMACIST PER DIEM-C Primary Care Provider Activ e Dr. Jan Ruby MD Attending Provider Active Team Status: Inactive Member Role Status Dates PHARMACIST PER DIEM. Neli Ungerer , PHARMACIST PER DIEM-C Primary Care Provider, Refe rring Provider Active Torres Richards PA, PA Attending Provider Active Team Status: Inactive Member Role Status Dates PHARMACIST PER DIEM. Neli Ungerer , PHARMACIST PER DIEM-C Primary Care Provider Activ e Dr. Jeremy Gerard , DO Emergency Provider Active Dr. Bridgett Ponce MD Admit Provider, Other Provider Active Dr. Lucina Barahona MD Attending Provider Active Team Status: Inactive Member Role Status Dates PHARMACIST PER DIEM. Neli Ungerer , PHARMACIST PER DIEM-C Primary Care Provider Activ e Dr. Ck Matias , DO Emergency Provider Active Team Status: Active Member Role Status Dates PHARMACIST PER DIEM. Neli Ungerer , PHARMACIST PER DIEM-C Primary Care Provider Activ e Torres Richards PA, PA Attending Provider Active Team Status: Inactive Member Role Status Dates PHARMACIST PER DIEM. Neli Ungerer , PHARMACIST PER DIEM-C Primary Care Provider, Refe rring Provider Active Jarrod Acosta PA, PA Attending Provider Active Team Status: Inactive Member Role Status Dates PHARMACIST PER DIEM. Neli Ungerer , PHARMACIST PER DIEM-C Primary Care Provider, Refe rring Provider Active Katheryn Katz NP-C Attending Provider Active Team Status: Inactive Member Role Status Dates PHARMACIST PER DIEM. Neli Ungerer , PHARMACIST PER DIEM-C Primary Care Provider Activ e Dr. Ck Matias , DO Attending Provider, Emergency P rovider Active Team Status: Inactive Member Role Status Dates PHARMACIST PER DIEM. Neli Ungerer , PHARMACIST PER DIEM-C Primary Care Provider Activ e Dr. Damion Saucedo , DO Emergency Provider Active Team Status: Inactive Member Role Status Dates PHARMACIST PER DIEM. Neli Ungerer , PHARMACIST PER DIEM-C Primary Care Provider Activ e Dr. Damion Saucedo , DO Attending Provider, Emergency Pr ovider Active Team Status: Active Member Role Status Dates PHARMACIST PER DIEM. Neli Ungerer , PHARMACIST PER DIEM-C Primary Care Provider Activ e Dr. Axel Kaur MD Emergency Provider Active Dr. Bridgett Ponce MD Admit Provider, Attending Prov ider Active Team Status: Inactive Member Role Status Dates PHARMACIST PER DIEM. Neli Ungerer , PHARMACIST PER DIEM-C Primary Care Provider Activ e Dr. Axel Kaur MD Emergency Provider Active Dr. Bridgett Ponce MD Admit Provider, Other Provider Active Mohit Duffy MD Other Provider Active Dr. Mark Pop MD Other Provider Active Anna Arenas MD Other Provider Active Dr. Gracie Bains , DO Other Provider Active Dr. Cathy Harding [...] Herrera MD Other Provider Active Dr. Jeovany Walsh , Attending Provider Active Dispensary Technician Relationship Specialty Start Date End Date Neli Tripp, TITLE ABSTRACTOR [address] [place] [address] PCP - General Family Medicine 03/19/24 Dispensary Technician Relationship Specialty Start Date End Date Neli Tripp, TITLE ABSTRACTOR [address] [place] [address] PCP - General Family Medicine 03/19/24 Dispensary Technician Relationship Specialty Start Date End Date Neli Tripp, TITLE ABSTRACTOR [address] [place] [address] PCP - General Family Medicine 03/19/24 Dispensary Technician Relationship Specialty Start Date End Date Neli Tripp, TITLE ABSTRACTOR [address] [place] [address] PCP - General Family Medicine 03/19/24 Dispensary Technician Relationship Specialty Start Date End Date Neli Tripp, TITLE ABSTRACTOR [address] [place] [address] PCP - General Family Medicine 03/19/24 Dispensary Technician Relationship Specialty Start Date End Date Neli Tripp CNP [address] [place] [address] PCP - General Family Medicine 03/19/24 Dispensary Technician Relationship Specialty Start Date End Date Neli Tripp CNP [address] [place] [address] PCP - General Family Medicine 03/19/24 Dispensary Technician Relationship Specialty Start Date End Date Neli Tripp CNP [address] [place] [address] PCP - General Family Medicine 03/19/24 Dispensary Technician Relationship Specialty Start Date End Date Neli Tripp CNP [address] [place] [address] PCP - General Family Medicine 03/19/24 Dispensary Technician Relationship Specialty Start Date End Date Neli Tripp CNP [address] [place] [address] PCP - General Family Medicine 03/19/24 Dispensary Technician Relationship Specialty Start Date End Date Neli Tripp CNP [address] [place] [address] PCP - General Family Medicine 03/19/24 Dispensary Technician Relationship Specialty Start Date End Date Neli Tripp CNP [address] [place] [address] PCP - General Family Medicine 03/19/24 Dispensary Technician Relationship Specialty Start Date End Date Neli Tripp CNP [address] [place] [address] PCP - General Family Medicine 03/19/24 Team Status: Active Member Role Status Dates PHARMACIST PER DIEM. Neli Ungerer , PHARMACIST PER DIEM-C Primary Care Provider Activ e Team Status: Inactive Member Role Status Dates NP. Neli Tripp PHARMACIST PER DIEM-C Primary Care Provider Activ e Start: June 19, 2024 End: June 19, 2024 NP. Neli Tripp PHARMACIST PER DIEM-C Referring Provider Active Start: June 19, 2024 End: June 19, 2024 Torres ROSADO, PA Attending Provider Active Start: June 19, 2024 End: June 19, 2024 Team Status: Inactive Member Role Status Dates NP. Neli Tripp PHARMACIST PER DIEM-C Primary Care Provider Activ e Start: August 17, 2024 End: August 17, 2024 Dr. Axel Kaur MD Emergency Provider Active Sta rt: August 17, 2024 End: August 17, 2024 Dispensary Technician Relationship Specialty Start Date End Date Neli Tripp CNP [address] [place] [address] PCP - General Family Medicine 03/19/24 Team Status: Active Member Role Status Dates No Primary Care Physician Primary Care Provider Active Team Status: Inactive Member Role Status Dates NP. Neli Tripp , PHARMACIST PER DIEM-C Primary Care Provider Activ e Start: August 17, 2024 End: August 17, 2024 Dr. Axel Kaur MD Attending Provider Active Sta rt: August 17, 2024 End: August 17, 2024 Dr. Axel Kaur MD Emergency Provider Active Sta rt: August 17, 2024 End: August 17, 2024 Team Status: Inactive Member Role Status Dates NP. Neli Tripp PHARMACIST PER DIEM-C Primary Care Provider Activ e Start: August 23, 2024 End: August 23, 2024 NP. Neli Tripp PHARMACIST PER DIEM-C Referring Provider Active Start: August 23, 2024 End: August 23, 2024 Jarrod ROSADO, PA Attending Provider Active Sta rt: August 23, 2024 End: August 23, 2024 Team Status: Inactive Member Role Status Dates NP. Neli Tripp , PHARMACIST PER DIEM-C Primary Care Provider Activ e Start: September 07, 2024 End: September 07, 2024 NP. Neli Tripp PHARMACIST PER DIEM-C Referring Provider Active Start: September 07, 2024 End: September 07, 2024 ISABEL Kong Attending Provider Active Start: September 07, 2024 End: September 07, 2024 Team Status: Active Member Role Status Dates ALONZO Crabtree Attending Provider Active Sta rt: September 20, 2024 ALONZO Crabtree Referring Provider Active Sta rt: September 20, 2024 No Primary Care Physician Primary Care Provider Active Start: September 20, 2024 Team Status: Inactive Member Role Status Dates No Primary Care Physician Primary Care Provider Active Start: September 22, 2024 End: September 22, 2024 Dr. Shilo Dunne DO Emergency Provider Activ e Start: September 22, 2024 End: September 22, 2024 Dispensary Technician Relationship Specialty Start Date End Date Neli Tripp CNP [address] [address] PCP - General Family Medicine 03/19/24 Team Status: Inactive Member Role Status Dates ISABEL Fortune Primary Care Provider Active Start: August 17, 2024 End: August 17, 2024 Dr. Axel Kaur MD Attending Provider Active Sta rt: August 17, 2024 End: August 17, 2024 Dr. Axel Kaur MD Emergency Provider Active Sta rt: August 17, 2024 End: August 17, 2024 Team Status: Inactive Member Role Status Dates Neli Tripp NP-Radha Primary Care Provider Active Start: August 23, 2024 End: August 23, 2024 ISABEL Fortune Referring Provider Active Start: August 23, 2024 End: August 23, 2024 ALONZO Crabtree Attending Provider Active Sta rt: August 23, 2024 End: August 23, 2024 Team Status: Inactive Member Role Status Dates Neil Tripp NP-Radha Primary Care Provider Active Start: September 07, 2024 End: September 07, 2024 Neli Tripp NP-Radha Referring Provider Active Start: September 07, 2024 End: September 07, 2024 ISABEL Kong Attending Provider Active Start: September 07, 2024 [...] Team Status: Active Member Role Status Dates ALONZO Crabtree Attending Provider Active Sta rt: October 14, 2024 ALONZO Crabtree Referring Provider Active Sta rt: October 14, 2024 No Primary Care Physician Primary Care Provider Active Start: October 14, 2024 Team Status: Active Member Role Status Dates No Primary Care Physician Primary Care Provider Active Start: October 22, 2024 Dr. Jeremy Gerard , Emergency Provider Active Start : October 22, 2024 Dr. Farhana Harden , Admit Provider Active Start : October 22, 2024 Dr. Farhana Harden , Attending Provider Active S tart: October 22, 2024 Team Status: Inactive Member Role Status Dates No Primary Care Physician Primary Care Provider Active Start: October 22, 2024 End: October 23, 2024 Dr. Jeremy Gerard DO Emergency Provider Active Start : October 22, 2024 End: October 23, 2024 Dr. Farhana Harden , Admit Provider Active Start : October 22, [...] : October 23, 2024 Dr. Farhana Harden , Admit Provider Active Start : October 23, 2024 Dr. Farhana Harden DO Other Provider Active Start : October 23, 2024 Dr. Taye Delvalle MD Attending Provider Active Start: October 23, 2024 Dr. Taye Delvalle MD Other Provider Active Sta rt: October 23, 2024 Dispensary Technician Relationship Specialty Start Date End Date Neli Tripp CNP [address] [place] [address] PCP - General Family Medicine 03/19/24 Dispensary Technician Relationship Specialty Start Date End Date Neli Tripp CNP [address] [place] [address] PCP - General Family Medicine 03/19/24 Dispensary Technician Relationship Specialty Start Date End Date Neli Tripp CNP [address] [place] [address] PCP - General Family Medicine 03/19/24 Dispensary Technician Relationship Specialty Start Date End Date Neli Tripp CNP [address] [place] [address] PCP - General Family Medicine 03/19/24 Dispensary Technician Relationship Specialty Start Date End Date Neli Tripp CNP [address] [place] [address] PCP - General Family Medicine 03/19/24 Dispensary Technician Relationship Specialty Start Date End Date Neli Tripp CNP [address] [place] [address] PCP - General Family Medicine 03/19/24 Dispensary Technician Relationship Specialty Start Date End Date Neli Tripp CNP [address] [place] [address] PCP - General Family Medicine 03/19/24 Dispensary Technician Relationship Specialty Start Date End Date Colton Kunz PA-C [address] [place] [address] PCP - General Family Medicine 01/02/25 Dispensary Technician Relationship Specialty Start Date End Date Colton Kunz PA-C [address] [place] [address] PCP - General Family Medicine 01/02/25 Dispensary Technician Relationship Specialty Start Date End Date Colton Kunz PA-C [address] [place] [address] PCP - General Family Medicine 01/02/25 Dispensary Technician Relationship Specialty Start Date End Date Colton Kunz PA-C [address] [place] [address] PCP - General Family Medicine 01/02/25 Dispensary Technician Relationship Specialty Start Date End Date Colton Kunz PA-C [address] [place] [address] PCP - General Family Medicine 01/02/25 Dispensary Technician Relationship Specialty Start Date End Date Colton Kunz PA-C [address] [place] [address] PCP - General Family Medicine 01/02/25 Team Status: Active Member Role/Relationship Status Dates Colton Kunz PA, PA-C Primary Care Provider Active Team Status: Active Member Role/Relationship Status Dates Jarrod Acosta PA, PA Attending Provider Active Sta rt: October 14, 2024 Jarrod Acosta PA, PA Referring Provider Active Sta rt: October 14, 2024 No Primary Care Physician Primary Care Provider Active Start: October 14, 2024 Team Status: Inactive Member Role/Relationship Status Dates No Primary Care Physician Primary Care Provider Active Start: October 22, 2024 End: October 23, 2024 Dr. Jeremy Gerard DO Emergency Provider Active Start : October 22, 2024 End: October 23, 2024 Dr. Farhana Harden DO Admit Provider Active Start : October 22, 2024 End: October 23, 2024 Dr. Farhana Harden DO Other Provider Active Start : October 22, 2024 End: October 23, 2024 Dr. Taye Delvalle MD Attending Provider Active Start: October 22, 2024 End: October 23, 2024 Team Status: Active Member Role/Relationship Status Dates No Primary Care Physician Primary Care Provider Active Start: October 23, 2024 Dr. Jan Ruby MD Attending Provider Active S tart: October 23, 2024 Team Status: Active Member Role/Relationship Status Dates No Primary Care Physician Primary [...] Provider Active Sta rt: October 23, 2024 Team Status: Inactive Member Role/Relationship Status Dates Colton Ze PA, PA-C Primary Care Provider Active Start: January 23, 2025 End: January 23, 2025 Dr. Ck Matias DO Emergency Provider Active Start: January 23, 2025 End: January 23, 2025 Team Status: Inactive Member Role/Relationship Status Dates Colton Ze PA, PA-C Primary Care Provider Active Start: January 23, 2025 End: January 23, 2025 Dr. Ck Matias DO Attending Provider Active Start: January 23, 2025 End: January 23, 2025 Dr. Ck Matias DO Emergency Provider Active Start: January 23, 2025 End: January 23, 2025 Team Status: Inactive Member Role/Relationship Status Dates Colton ROSADO PA-C Primary Care Provider Active Start: January 30, 2025 End: January 30, 2025 Dr. Luis Wilkerson MD Emergency Provider Active Start: January 30, 2025 End: January 30, 2025 Dispensary Technician Relationship Specialty Start Date End Date Colton Kunz PA-C [address] [place] [address] PCP - General Family Medicine 01/02/25 Dispensary Technician Relationship Specialty Start Date End Date Colton Kunz PA-C [address] [place], [place] [address] PCP - General Family Medicine 01/02/25 Source Comments (unrecognize d section and content) In the event this informatio n is protected by the Federal Confidentiality of Alcohol and Drug Abuse Patient Records regulations: The Federal rules restrict any use of the information to criminally investigate or prosecute any alcohol or drug abuse patient.[facility] the event this information is protected by the Federal Confidentiality of Alcohol and Drug Abuse Patient Records regulations: The Federal rules restrict any use of the information to criminally investigate or prosecute any alcohol or drug abuse patient.[facility] the event this information is protected by the Federal Confidentiality of Alcohol and Drug Abuse Patient Records regulations: The Federal rules restrict any use of the information to criminally investigate or prosecute any alcohol or drug abuse patient.[facility] the event this information is protected by the Federal Confidentiality of Alcohol and Drug Abuse Patient Records regulations: The Federal rules restrict any use of the information to criminally investigate or prosecute any alcohol or drug abuse patient.[facility] the event this information is protected by the Federal Confidentiality of Alcohol and Drug Abuse Patient Records regulations: The Federal rules restrict any use of the information to criminally investigate or prosecute any alcohol or drug abuse patient.[facility] Hospital[facility] the event this information is protected by the Federal Confidentiality of Alcohol and Drug Abuse Patient Records regulations: The Federal rules restrict any use of the information to criminally investigate or prosecute any alcohol or drug abuse patient.[facility] Hospital[facility] the event this information is protected by the Federal Confidentiality of Alcohol and Drug Abuse Patient Records regulations: The Federal rules restrict any use of the information to criminally investigate or prosecute any alcohol or drug abuse patient.[facility] the event this information is protected by the Federal Confidentiality of Alcohol and Drug Abuse Patient Records regulations: The Federal rules restrict any use of the information to criminally investigate or prosecute any alcohol or drug abuse patient.[facility] HospitalIn the event this information is protected by the Federal Confidentiality of Alcohol and Drug Abuse Patient Records regulations: The Federal rules restrict any use of the information to criminally investigate or prosecute any alcohol or drug abuse patient.[facility] HospitalIn the event this information is protected by the Federal Confidentiality of Alcohol and Drug Abuse Patient Records regulations: The Federal rules restrict any use of the information to criminally investigate or prosecute any alcohol or drug abuse patient.[facility] HospitalIn the event this information is protected by the Federal Confidentiality of Alcohol and Drug Abuse Patient Records regulations: The Federal rules restrict any use of the information to criminally investigate or prosecute any alcohol or drug abuse patient.[facility] Hospital[facility] the event this information is protected by the Federal Confidentiality of Alcohol and Drug Abuse Patient Records regulations: The Federal rules restrict any use of the information to criminally investigate or prosecute any alcohol or drug abuse patient.[facility] Hospital[facility] the event this information is protected by the Federal Confidentiality of Alcohol and Drug Abuse Patient Records regulations: The Federal rules restrict any use of the information to criminally investigate or prosecute any alcohol or drug abuse patient.[facility] HospitalIn the event this information is protected by the Federal Confidentiality of Alcohol and Drug Abuse Patient Records regulations: The Federal rules restrict any use of the information to criminally investigate or prosecute any alcohol or drug abuse patient.[facility] HospitalIn the event this information is protected by the Federal Confidentiality of Alcohol and Drug Abuse Patient Records regulations: The Federal rules restrict any use of the information to criminally investigate or prosecute any alcohol or drug abuse patient.[facility] HospitalIn the event this information is protected by the Federal Confidentiality of Alcohol and Drug Abuse Patient Records regulations: The Federal rules restrict any use of the information to criminally investigate or prosecute any alcohol or drug abuse patient.[facility] HospitalIn the event this information is protected by the Federal Confidentiality of Alcohol and Drug Abuse Patient Records regulations: The Federal rules restrict any use of the information to criminally investigate or prosecute any alcohol or drug abuse patient.[facility] HospitalIn the event this information is protected by the Federal Confidentiality of Alcohol and Drug Abuse Patient Records regulations: The Federal rules restrict any use of the information to criminally investigate or prosecute any alcohol or drug abuse patient.[facility] HospitalIn the event this information is protected by the Federal Confidentiality of Alcohol and Drug Abuse Patient Records regulations: The Federal rules restrict any use of the information to criminally investigate or prosecute any alcohol or drug abuse patient.[facility] HospitalIn the event this information is protected by the Federal Confidentiality of Alcohol and Drug Abuse Patient Records regulations: The Federal rules restrict any use of the information to criminally investigate or prosecute any alcohol or drug abuse patient.[facility] HospitalIn the event this information is protected by the Federal Confidentiality of Alcohol and Drug Abuse Patient Records regulations: The Federal rules restrict any use of the information to criminally investigate or prosecute any alcohol or drug abuse patient.[facility] HospitalIn the event this information is protected by the Federal Confidentiality of Alcohol and Drug Abuse Patient Records regulations: The Federal rules restrict any use of the information to criminally investigate or prosecute any alcohol or drug abuse patient.[facility] the event this information is protected by the Federal Confidentiality of Alcohol and Drug Abuse Patient Records regulations: The Federal rules restrict any use of the information to criminally investigate or prosecute any alcohol or drug abuse patient.[facility] HospitalIn the event this information is protected by the Federal Confidentiality of Alcohol and Drug Abuse Patient Records regulations: The Federal rules restrict any use of the information to criminally investigate or prosecute any alcohol or drug abuse patient.[facility] HospitalIn the event this information is protected by the Federal Confidentiality of Alcohol and Drug Abuse Patient Records regulations: The Federal rules restrict any use of the information to criminally investigate or prosecute any alcohol or drug abuse patient.[facility] the event this information is protected by the Federal Confidentiality of Alcohol and Drug Abuse Patient Records regulations: The Federal rules restrict any use of the information to criminally investigate or prosecute any alcohol or drug abuse patient.[facility] HospitalIn the event this information is protected by the Federal Confidentiality of Alcohol and Drug Abuse Patient Records regulations: The Federal rules restrict any use of the information to criminally investigate or prosecute any alcohol or drug abuse patient.[facility] HospitalIn the event this information is protected by the Federal Confidentiality of Alcohol and Drug Abuse Patient Records regulations: The Federal rules restrict any use of the information to criminally investigate or prosecute any alcohol or drug abuse patient.[facility] HospitalIn the event this information is protected by the Federal Confidentiality of Alcohol and Drug Abuse Patient Records regulations: The Federal rules restrict any use of the information to criminally investigate or prosecute any alcohol or drug abuse patient.[facility] HospitalIn the event this information is protected by the Federal Confidentiality of Alcohol and Drug Abuse Patient Records regulations: The Federal rules restrict any use of the information to criminally investigate or prosecute any alcohol or drug abuse patient.[facility] HospitalIn the event this information is protected by the Federal Confidentiality of Alcohol and Drug Abuse Patient Records regulations: The Federal rules restrict any use of the information to criminally investigate or prosecute any alcohol or drug abuse patient.[facility] HospitalIn the event this information is protected by the Federal Confidentiality of Alcohol and Drug Abuse Patient Records regulations: The Federal rules restrict any use of the information to criminally investigate or prosecute any alcohol or drug abuse patient.[facility] HospitalIn the event this information is protected by the Federal Confidentiality of Alcohol and Drug Abuse Patient Records regulations: The Federal rules restrict any use of the information to criminally investigate or prosecute any alcohol or drug abuse patient.[facility] HospitalIn the event this information is protected by the Federal Confidentiality of Alcohol and Drug Abuse Patient Records regulations: The Federal rules restrict any use of the information to criminally investigate or prosecute any alcohol or drug abuse patient.[facility] HospitalIn the event this information is protected by the Federal Confidentiality of Alcohol and Drug Abuse Patient Records regulations: The Federal rules restrict any use of the information to criminally investigate or prosecute any alcohol or drug abuse patient.[facility] HospitalIn the event this information is protected by the Federal Confidentiality of Alcohol and Drug Abuse Patient Records regulations: The Federal rules restrict any use of the information to criminally investigate or prosecute any alcohol or drug abuse patient.[facility] HospitalIn the event this information is protected by the Federal Confidentiality of Alcohol and Drug Abuse Patient Records regulations: The Federal rules restrict any use of the information to criminally investigate or prosecute any alcohol or drug abuse patient.[facility] HospitalIn the event this information is protected by the Federal Confidentiality of Alcohol and Drug Abuse Patient Records regulations: The Federal rules restrict any use of the information to criminally investigate or prosecute any alcohol or drug abuse patient.[facility] HospitalIn the event this information is protected by the Federal Confidentiality of Alcohol and Drug Abuse Patient Records regulations: The Federal rules restrict any use of the information to criminally investigate or prosecute any alcohol or drug abuse patient.[facility] HospitalIn the event this information is protected by the Federal Confidentiality of Alcohol and Drug Abuse Patient Records regulations: The Federal rules restrict any use of the information to criminally investigate or prosecute any alcohol or drug abuse patient.[facility] HospitalIn the event this information is protected by the Federal Confidentiality of Alcohol and Drug Abuse Patient Records regulations: The Federal rules restrict any use of the information to criminally investigate or prosecute any alcohol or drug abuse patient.[facility] HospitalIn the event this information is protected by the Federal Confidentiality of Alcohol and Drug Abuse Patient Records regulations: The Federal rules restrict any use of the information to criminally investigate or prosecute any alcohol or drug abuse patient.[facility] HospitalIn the event this information is protected by the Federal Confidentiality of Alcohol and Drug Abuse Patient Records regulations: The Federal rules restrict any use of the information to criminally investigate or prosecute any alcohol or drug abuse patient.[facility] HospitalIn the event this information is protected by the Federal Confidentiality of Alcohol and Drug Abuse Patient Records regulations: The Federal rules restrict any use of the information to criminally investigate or prosecute any alcohol or drug abuse patient.[facility] HospitalIn the event this information is protected by the Federal Confidentiality of Alcohol and Drug Abuse Patient Records regulations: The Federal rules restrict any use of the information to criminally investigate or prosecute any alcohol or drug abuse patient.[facility] HospitalIn the event this information is protected by the Federal Confidentiality of Alcohol and Drug Abuse Patient Records regulations: The Federal rules restrict any use of the information to criminally investigate or prosecute any alcohol or drug abuse patient.[facility] HospitalIn the event this information is protected by the Federal Confidentiality of Alcohol and Drug Abuse Patient Records regulations: The Federal rules restrict any use of the information to criminally investigate or prosecute any alcohol or drug abuse patient.[facility] HospitalIn the event this information is protected by the Federal Confidentiality of Alcohol and Drug Abuse Patient Records regulations: The Federal rules restrict any use of the information to criminally investigate or prosecute any alcohol or drug abuse patient.[facility] HospitalIn the event this information is protected by the Federal Confidentiality of Alcohol and Drug Abuse Patient Records regulations: The Federal rules restrict any use of the information to criminally investigate or prosecute any alcohol or drug abuse patient.[facility] HospitalIn the event this information is protected by the Federal Confidentiality of Alcohol and Drug Abuse Patient Records regulations: The Federal rules restrict any use of the information to criminally investigate or prosecute any alcohol or drug abuse patient.[facility] HospitalIn the event this information is protected by the Federal Confidentiality of Alcohol and Drug Abuse Patient Records regulations: The Federal rules restrict any use of the information to criminally investigate or prosecute any alcohol or drug abuse patient.[facility] HospitalIn the event this information is protected by the Federal Confidentiality of Alcohol and Drug Abuse Patient Records regulations: The Federal rules restrict any use of the information to criminally investigate or prosecute any alcohol or drug abuse patient.[facility] HospitalIn the event this information is protected by the Federal Confidentiality of Alcohol and Drug Abuse Patient Records regulations: The Federal rules restrict any use of the information to criminally investigate or prosecute any alcohol or drug abuse patient.[facility] Reason for Visit (unrecogniz ed section and content) Reason Comments New Patient Specialty Diagnoses / Procedures Referred By Contac t Referred To Contact Diagnoses White matter abnormality on MRI of brain Facial numbness Facial weakness Sensory deficit, right Procedures CONSULT TO [facility] OFFICE/OUTPATIENT NEW HIGH MDM 60 MINUTES Janet Fernandez, MARLEEN.TITLE ABSTRACTOR [address] [address] Phone: tel: fax: Referral ID Status Reason Start Date Expiration Date V isits Requested Visits Authorized [id number] Closed PCP Requested Referral 12/05/2024 12/05/2025 1 1 Specialty Diagnoses / Procedures Referred By Contac t Referred To Contact Diagnoses [id number] syndrome (HCC) Procedures CONSULT TO HEMATOLOGY/ONCOLOGY OFFICE/OUTPATIENT NEW HIGH MDM 60 MINUTES Elizabeth Marques MD [address] [place] [address] Referral ID Status Reason Start Date Expiration Date V isits Requested Visits Authorized [id number] Closed PCP Requested Referral 10/25/2023 2024 1 1 Reason Comments Referral Request Reason Comments Insurance Authorization Authorization fo r MRI received. Auth # [id number] Reason Comments Established Patient Follow Up Reason Comments Migraine Specialty Diagnoses / Procedures Referred By Contac t Referred To Contact Diagnoses Migraine without status migrainosus, not intractable, unspecified migraine type Procedures [facility] OFFICE/OUTPATIENT NEW HIGH MDM 60-74 MINUTES Janet Fernandez, MARLEEN.TITLE ABSTRACTOR [address] [place] [address] Referral ID Status Reason Start Date Expiration Date V isits Requested Visits Authorized [id number] Closed PCP Requested Referral 05/31/2023 05/30/2024 1 1 Reason Comments Consult Reason Comments New Patient Specialty Diagnoses / Procedures Referred By Contac t Referred To Contact Neurology Diagnoses Facial weakness Facial numbness Speech disturbance, unspecified type Procedures CONSULT TO NEUROLOGY OFFICE/OUTPATIENT NEW HIGH MDM 60 MINUTES Janet Fernandez, MARLEEN.TITLE ABSTRACTOR [address] [place] [address] Referral ID Status Reason Start Date Expiration Date V isits Requested Visits Authorized [id number] Closed PCP Requested Referral 09/17/2023 09/16/2024 1 [...] BE BASED ON THE PRIMARY CLINICAL RECORDS. [facility]. provides no warranty or guarantee of the accuracy or completeness of information in this document.
--- NOTE | 2025-04-02 18:50 | RAD_ITS ---
PROCEDURE: ANKLE MIN 3 VIEWS 04/02/2025 REASON FOR EXAM: FALL TECHNIQUE: Procedure Code: RADANK Modality: DX Procedure: ANKLE MIN 3 VIEWS Laterality: FINDINGS: No evidence of acute fracture or dislocation. No ankle joint effusion. The soft tissues are unremarkable. RAD/Ankle min 3 Views IMPRESSION: No acute osseous abnormalities. Reading Location: [id number]
--- NOTE | 2025-04-02 18:50 | RAD_ITS ---
PROCEDURE: ANKLE MIN 3 VIEWS 04/02/2025 REASON FOR EXAM: FALL, PAIN TECHNIQUE: Procedure Code: RADANK Modality: DX Procedure: ANKLE MIN 3 VIEWS Laterality: FINDINGS: No evidence acute fracture or dislocation. No ankle joint effusion. The soft tissues are unremarkable. RAD/Ankle min 3 Views IMPRESSION: No acute osseous abnormalities. Reading Location: [id number]
[2025-04-02 19:49] VITALS: BMI 37.1
[2025-04-02 20:09] VITALS: BP 128/60; PULSE 90; RESP 18; TEMP 36.8; O2SAT 97
--- NOTE | 2025-04-02 23:32 | ED.VIS.FALL ---
HPI HPI - Fall History of Present Illness Chief Complaint: Fall Informant: patient and family Narrative Narrative: 39-year-old female presenting to the emergency room with bilateral ankle pain. Patient states yesterday she is going on the stairs outside of her house she thought she was at the bottom chamber stopped ago and she fell resulting in inversion injury to the left ankle and also causing injury to the right ankle. She states that she tried to catch herself by grabbing a nicki where eventually fell down and has a bruise in the left flank. She went to work today had pain with standing. She notes that the left ankle is worse than the right. [facility] Medical History Anemia Lumbar pain with radiation down right leg Dental caries Brain TIA Dysarthria Chronic migraine Anxiety and depression History of venous thromboembolism Obesity Tobacco use History of nephrolithiasis Chronic neck and back pain Factor 5 Leiden mutation, heterozygous Home Medications Medication Instructions Recorded Last Taken Type medroxyprogesterone 150 mg/mL 150 mg IM .[id number] control 01/30/15 08/24/24 11:00 History intramuscular syringe 150 mg citalopram 40 mg tablet 40 mg PO DAILY mental health 04/04/19 10/22/24 10:00 History 40 mg haloperidol 5 mg tablet 2.5 mg PO TID PRN Anxiety 04/04/19 Unknown History apixaban 5 mg tablet 5 mg PO BID blood thinner 06/03/20 10/22/24 12:30 History 5 mg acetaminophen 325 mg capsule 325 mg PO ONCE PRN Pain 1-10 Or 08/26/20 Unknown History (Tylenol) Fever lidocaine 5 % topical patch 1 patch topical DAILY pain #6 ea 04/13/21 09/20/24 11:00 Rx (Lidoderm) 1 patch albuterol sulfate 90 mcg/actuation 2 puff inhalation Q6H PRN 03/15/23 Unknown History aerosol inhaler CONGESTION/ALLERGIES cetirizine 10 mg tablet 10 mg PO DAILY allergies 03/15/23 10/22/24 10:00 History 10 mg famotidine 40 mg tablet 40 mg PO Q12H reflux 03/15/23 10/21/24 23:00 History 40 mg lamotrigine 200 mg tablet 200 mg PO DAILY bipolar 03/15/23 10/22/24 11:00 History 200 mg montelukast 10 mg tablet 10 mg PO QHS allergies 03/15/23 10/21/24 22:00 History 10 mg triamcinolone acetonide 55 mcg 2 spray intranasal DAILY 03/15/23 10/18/24 11:00 History nasal spray aerosol 2 spray erenumab-aooe 70 mg/mL 70 mg subcut .monthly 10/31/23 09/17/24 10:00 History subcutaneous auto-injector 70 mg (Aimovig Autoinjector) cholecalciferol (vitamin D3) 25 50 mcg PO DAILY 10/22/24 10/22/24 10:00 History mcg (1,000 unit) capsule 50 mcg topiramate 200 mg tablet 200 mg PO BID 10/22/24 10/22/24 11:00 History 200 mg methocarbamol 500 mg tablet 250 - 500 mg (0.5 - 1 x 500 mg) PO 01/23/25 Unknown Rx Q8H PRN muscle spasm #20 tabs gabapentin 100 mg capsule 100 mg PO QHS 03/25/25 Unknown History permethrin 5 % topical cream 1 applic topical Q14D 2 doses #60 03/25/25 Unknown Rx grams Allergy/AdvReac Type Severity Reaction Status Date / Time acetaminophen (From [facility]) Allergy Itching Verified 04/02/25 17:59 hydrocodone (From [facility]) Allergy Itching Verified 04/02/25 17:59 oxycodone (From Percocet) AdvReac Intermediate Itching Verified 04/02/25 17:59 cephalexin monohydrate (From AdvReac WEAKNESS, Verified 04/02/25 17:59 Keflex) MUSCLE ACHES Family History Mother Heart disease CVA (cerebral vascular accident) Diabetes Father No problems noted. Surgical History S/P cervical spinal fusion History of toe surgery History of carpal tunnel release Social History household members: other details: Lives in her home with her 3 children, youngest 9. Smoking Status: Current every day smoker tobacco type: cigarettes, e-cigarettes and smokeless tobacco alcohol intake: never substance use type: does not use ROS ROS ED Constitutional Constitutional ED: Denies chills or weight loss Eyes Eyes: Denies change in vision or diplopia ENT ENT ED: Denies ear pain, rhinorrhea or sore throat Cardiovascular Cardiovascular: Denies chest pain, orthopnea, palpitations or racing heartbeat Respiratory/Chest Respiratory/Chest: Denies cough, dyspnea or orthopnea Gastrointestinal Gastrointestinal: Denies abdominal pain, diarrhea, nausea or vomiting Genitourinary Genitourinary ED: Denies dysuria, hematuria or urinary frequency Musculoskeletal Musculoskeletal: Reports back pain and other Details: See history of present illness ; Denies arthralgias, myalgias or neck pain Integumentary Denies abscess or rash Neurologic Neurologic: Denies headache(s) or weakness Psychiatric Psychiatric: Denies anxiety, depression, suicidal ideation or suicidal thoughts Endocrine Endocrinology: Denies polydipsia, polyphagia or polyuria Allergic/Immunologic Allergic/Immunologic ED: Denies mouth swelling, tongue swelling or urticaria EXAM Physical Exam Const Vital Signs: 04/02/25 17:59 04/02/25 20:09 Temperature 97.9 F 98.2 F Temperature Source Oral Pulse Rate 114 H 90 Respiratory Rate 16 18 Blood Pressure 133/75 H 128/60 H Blood Pressure Mean 94 82 Pulse Ox 100 97 Oxygen Delivery Method Room Air Positive well nourished and well developed General Appearance ED: well developed and NAD HEENT Reports normocephalic, head/scalp atraumatic and moist mucous membranes Eyes PERRL and EOMs intact bilaterally Neck no lymphadenopathy, supple and no JVD Resp normal respiratory effort and clear to auscultation bilaterally Cardio regular rate, regular rhythm and no murmurs GI normal to inspection, nondistended, normoactive bowel sounds and non-tender Palpation: soft Back/Spine no CVA tenderness and normal ROM Back/Spine Narrative: There is a small circular contusion in the mid axillary line left mid abdomen. Rest of the abdominal exam is normal. No CVA pain. Extremity Extremity Narrative: Mild swelling over the ATF on the left. Pain with range of motion. No fifth metatarsal pain bilaterally or fibular head pain bilaterally no tibial shaft pain. Neurovascular intact distally. General Extremety ED: Negative for edema General Extremity: Negative for edema Neuro oriented x3 and CN's II-XII intact bilaterally Sensorium / Orientation: alert Motor Exam: strength 5/5 throughout Psych mental status grossly normal Mood & Affect: Negative for depressed or tearful Skin no rashes or lesions noted and no wounds MDM MDM MDM Narrative Medical decision making narrative: Differential diagnosis includes but not limited to fracture sprain renal injury soft tissue contusion My independent interpretation of the bilateral ankle is no acute fracture. The contusion on the left flank region appears to be soft tissue in nature. I do not believe this needs advanced imaging. Patient was placed in air splint for comfort. Would recommend supportive care return if worsening or concerns History & Record Review Discussion w/independent historian: Patient Radiography Diagnostic Testing: Clinical Impression(s) from Imaging Studies Ankle X-Ray 04/02/25 18:50 IMPRESSION: No acute osseous abnormalities. Reading Location: [address] Ankle X-Ray 04/02/25 18:50 IMPRESSION: No acute osseous abnormalities. Reading Location: [address] Discharge Plan Triage Chief Complaint: Fall ED Provider: Salvador Salcedo Dx/Rx/DC Orders Clinical Impression: Ankle sprain, Fall Instructions: ED Ankle Sprain (Adult) Prescriptions: No Action acetaminophen [Tylenol] 325 mg capsule 325 mg PO ONCE PRN (Reason: Pain 1-10 Or Fever) Aimovig Autoinjector 70 mg/mL auto-injector 70 mg subcut .monthly Rx Instructions: the 8th of each month gabapentin 100 mg capsule 100 mg PO QHS permethrin 5 % cream 1 applic topical Q14D Qty: 60 0RF Rx Instructions: apply 1/2 tube to [id number] leaving on for 8-14 hours before washing off; repeat in 10-12 days medroxyprogesterone 150 MG/ML syringe 150 mg IM .[id number] citalopram 40 MG tablet 40 mg PO DAILY haloperidol 5 MG tablet 2.5 mg PO TID PRN (Reason: Anxiety) apixaban 5 MG tablet 5 mg PO BID lidocaine [Lidoderm] 5 % adhesive patch,medicated 1 patch topical DAILY Qty: 6 0RF Rx Instructions: leave on most painful area for up to 12 hrs lamotrigine 200 mg tablet 200 mg PO DAILY Patient Comments: TAKE 1 TABLET BY MOUTH ONCE DAILY IN THE MORNING cetirizine 10 mg tablet 10 mg PO DAILY famotidine 40 mg tablet 40 mg PO Q12H Patient Comments: PT TAKES AT DINNER TIME AND THEN ONE AT BEDTIME triamcinolone acetonide 55 mcg aerosol,spray 2 spray INTRANASAL DAILY Patient Comments: USE 2 SPRAY(S) INTRANASALLY ONCE DAILY montelukast 10 mg tablet 10 mg PO QHS Patient Comments: TAKE 1 TABLET BY MOUTH ONCE DAILY albuterol sulfate 90 mcg/actuation HFA aerosol inhaler 2 puff inhalation Q6H PRN (Reason: CONGESTION/ALLERGIES) cholecalciferol (vitamin D3) 25 mcg (1,000 unit) capsule 50 mcg PO DAILY topiramate 200 mg tablet 200 mg PO BID methocarbamol 500 mg tablet 250 - 500 mg PO Q8H PRN (Reason: muscle spasm) Qty: 20 0RF Primary Care Provider: Haley Kunz Referrals: Haley Kunz PA-C [Primary Care Provider, Medical] - 10-14 Days if not better Print Language: Tajik Disposition Disposition: Home, Self Care Discharge Date/Time: 04/02/25 20:10
== END 2025-04-02 20:10 | disposition home or self-care (01) ==
PROVIDERS: Emergency Provider Emergency Medicine; PCP Family Medicine; Visit Provider Emergency Medicine
DX: S93.402A Sprain of unspecified ligament of left ankle, initial encounter (principal); S30.13XA Contusion of flank (latus) region, initial encounter; M25.571 Pain in right ankle and joints of right foot; W10.9XXA Fall (on) (from) unspecified stairs and steps, initial encounter; G43.709 Chronic migraine without aura, not intractable, without status migrainosus; F17.210 Nicotine dependence, cigarettes, uncomplicated; Z79.01 Long term (current) use of anticoagulants; Z79.899 Other long term (current) drug therapy; Z86.718 Personal history of other venous thrombosis and embolism
CPT/HCPCS: 73610; 99282

== ENCOUNTER 2025-04-27 13:36 | Emergency (ER) | payer MEDICAID, SELFPAY ==
[2025-04-27 13:37] VITALS: BP 115/67; PULSE 81; RESP 16; TEMP 37; O2SAT 100; BMI 34.9
--- NOTE | 2025-04-27 13:57 | EDS_ITS ---
HPI History of Present Illness Chief Complaint: Lower Extremity Injury Narrative Narrative: 39-year-old female presents with increasing right ankle pain that she has had over the last week. She relates history that approximately 3 weeks ago, she had a fall and sprained her left ankle, and may have injured her right ankle as well during the fall. She was seen and evaluated in the emergency department where she states that she had x-rays of both ankles and was told that the left ankle with a sprain, and the right ankle was okay. Over the last week she has noticed increased swelling more than usual of her right ankle. She has pain mainly on the lateral aspect that wraps around to the back. She states she takes gabapentin for pain so is not unusual for her ankles to be swollen. However, she went to urgent care on Monday, 2 days ago, where she states they gave her prednisone and told her to follow-up with a diving fisher. She was unable to make an appointment with the diving fisher through the [facility]. [facility] Medical History Anemia Lumbar pain with radiation down right leg Dental caries Brain TIA Dysarthria Chronic migraine Anxiety and depression History of venous thromboembolism Obesity Tobacco use History of nephrolithiasis Chronic neck and back pain Factor 5 Leiden mutation, heterozygous Home Medications Medication Instructions Recorded Last Taken Type medroxyprogesterone 150 mg/mL 150 mg IM .[id number] verenice h control 01/30/15 08/24/24 11:00 History intramuscular syringe 150 mg citalopram 40 mg tablet 40 mg PO DAILY mental health 04/04/19 10/22/24 10:00 History 40 mg haloperidol 5 mg tablet 2.5 mg PO TID PRN Anxiety Unknown History apixaban 5 mg tablet 5 mg PO BID blood thinner 10/22/24 12:30 History 5 mg acetaminophen 325 mg capsule 325 mg PO ONCE PRN Pain 1 - Or 08/26/20 Unknown History (Tylenol) Fever lidocaine 5 % topical patch 1 patch topical DAILY pain #6 ea 04/13/21 09/20/24 11:00 Rx (Lidoderm) 1 patch albuterol sulfate 90 mcg/actuation 2 puff inhalation Q 6H PRN 03/15/23 Unknown History aerosol inhaler CONGESTION/ALLERGIES cetirizine 10 mg tablet 10 mg PO DAILY allergies 10/0210/22/24 10:00 History 10 mg famotidine 40 mg tablet 40 mg PO Q12H reflux 3 10/21/24 23:00 History 40 mg lamotrigine 200 mg tablet 200 mg PO DAILY bipolar 10/0210/22/24 11:00 History 200 mg montelukast 10 mg tablet 10 mg PO QHS allergies 03/1510/21/24 22:00 History 10 mg triamcinolone acetonide 55 mcg 2 spray intranasal JILL Y 03/15/23 10/18/24 11:00 History nasal spray aerosol 2 spray erenumab-aooe 70 mg/mL 70 mg subcut .monthly 09/17/24 10:00 History subcutaneous auto-injector 70 mg (Aimovig Autoinjector) cholecalciferol (vitamin D3) 25 50 mcg PO DAILY 10/22/24 10:00 History mcg (1,000 unit) capsule 50 mcg topiramate 200 mg tablet 200 mg PO BID 10/22/2410/22 11:00 History 200 mg methocarbamol 500 mg tablet 250 - 500 mg (0.5 - 1 x 50 0 mg) PO 01/23/25 Unknown Rx Q8H PRN muscle spasm #20 tabs gabapentin 100 mg capsule 100 mg PO QHS 03/25/25 Unkno wn History permethrin 5 % topical cream 1 applic topical Q14D 2 d oses #60 03/25/25 Unknown Rx grams Allergy/AdvReac Type Severity Reaction Status Date / Time acetaminophen (From [place]) Allergy Itching Verified 04/27/25 13:37 hydrocodone (From [place]) Allergy Itching Verified 04/27/25 13:37 oxycodone (From Percocet) AdvReac Intermediate Itching Verified 04/27/25 13:37 cephalexin monohydrate (From AdvReac WEAKNESS, Verified 04/27/25 13:37 Keflex) MUSCLE ACHES Family History Mother Heart disease CVA (cerebral vascular accident) Diabetes Father No problems noted. Surgical History S/P cervical spinal fusion History of toe surgery History of carpal tunnel release Social History household members: other details: Lives in her home with her 3 children, youngest 9. Smoking Status: Current every day smoker tobacco type: cigarettes, e-cigarettes and smokeless tobacco alcohol intake: never substance use type: does not use ROS ROS ED ROS Narrative Review of systems positive for right ankle swelling over baseline. Right lateral ankle pain wraparound to Achilles tendon area. No exacerbating or alleviating factors otherwise for pain with weightbearing. EXAM Physical Exam Narrative Exam Narrative: Afebrile. Vital signs noted. Nontoxic-appearing. Cardiovascular examination regular rate and rhythm. Lungs clear to auscultation bilaterally. Abdomen soft nontender with no guarding or rebound. Neurological examination nonfocal, nonlateralizing. Inspection of the right ankle reveals minimal right malleoli or tenderness and swelling. No palpable Achilles tendon deficit. No pain at base of fifth metatarsal. Palpable dorsalis pedis pulse. EHL intact, right. No proximal fibular head tenderness. No noted erythema or crepitance. Const Vital Signs:
--- NOTE | 2025-04-27 13:57 | ED.VIS.LOWEX ---
HPI History of Present Illness Chief Complaint: Lower Extremity Injury Narrative Narrative: 39-year-old female presents with increasing right ankle pain that she has had over the last week. She relates history that approximately 3 weeks ago, she had a fall and sprained her left ankle, and may have injured her right ankle as well during the fall. She was seen and evaluated in the emergency department where she states that she had x-rays of both ankles and was told that the left ankle with a sprain, and the right ankle was okay. Over the last week she has noticed increased swelling more than usual of her right ankle. She has pain mainly on the lateral aspect that wraps around to the back. She states she takes gabapentin for pain so is not unusual for her ankles to be swollen. However, she went to urgent care on Monday, 2 days ago, where she states they gave her prednisone and told her to follow-up with a construction supervisor/carpenter. She was unable to make an appointment with the construction supervisor/carpenter through the [facility]. [facility] Medical History Anemia Lumbar pain with radiation down right leg Dental caries Brain TIA Dysarthria Chronic migraine Anxiety and depression History of venous thromboembolism Obesity Tobacco use History of nephrolithiasis Chronic neck and back pain Factor 5 Leiden mutation, heterozygous Home Medications Medication Instructions Recorded Last Taken Type medroxyprogesterone 150 mg/mL 150 mg IM .[id number] control 01/30/15 08/24/24 11:00 History intramuscular syringe 150 mg citalopram 40 mg tablet 40 mg PO DAILY mental health 04/04/19 10/22/24 10:00 History 40 mg haloperidol 5 mg tablet 2.5 mg PO TID PRN Anxiety 04/04/19 Unknown History apixaban 5 mg tablet 5 mg PO BID blood thinner 06/03/20 10/22/24 12:30 History 5 mg acetaminophen 325 mg capsule 325 mg PO ONCE PRN Pain 1- Or 08/26/20 Unknown History (Tylenol) Fever lidocaine 5 % topical patch 1 patch topical DAILY pain #6 ea 04/13/21 09/20/24 11:00 Rx (Lidoderm) 1 patch albuterol sulfate 90 mcg/actuation 2 puff inhalation Q6H PRN 03/15/23 Unknown History aerosol inhaler CONGESTION/ALLERGIES cetirizine 10 mg tablet 10 mg PO DAILY allergies 03/15/23 10/22/24 10:00 History 10 mg famotidine 40 mg tablet 40 mg PO Q12H reflux 03/15/23 10/21/24 23:00 History 40 mg lamotrigine 200 mg tablet 200 mg PO DAILY bipolar 03/15/23 10/22/24 11:00 History 200 mg montelukast 10 mg tablet 10 mg PO QHS allergies 03/15/23 10/21/24 22:00 History 10 mg triamcinolone acetonide 55 mcg 2 spray intranasal DAILY 03/15/23 10/18/24 11:00 History nasal spray aerosol 2 spray erenumab-aooe 70 mg/mL 70 mg subcut .monthly 10/31/23 09/17/24 10:00 History subcutaneous auto-injector 70 mg (Aimovig Autoinjector) cholecalciferol (vitamin D3) 25 50 mcg PO DAILY 10/22/24 10/22/24 10:00 History mcg (1,000 unit) capsule 50 mcg topiramate 200 mg tablet 200 mg PO BID 10/22/24 10/22/24 11:00 History 200 mg methocarbamol 500 mg tablet 250 - 500 mg (0.5 - 1 x 500 mg) PO 01/23/25 Unknown Rx Q8H PRN muscle spasm #20 tabs gabapentin 100 mg capsule 100 mg PO QHS 03/25/25 Unknown History permethrin 5 % topical cream 1 applic topical Q14D 2 doses #60 03/25/25 Unknown Rx grams Allergy/AdvReac Type Severity Reaction Status Date / Time acetaminophen (From [place]) Allergy Itching Verified 04/27/25 13:37 hydrocodone (From [place]) Allergy Itching Verified 04/27/25 13:37 oxycodone (From Percocet) AdvReac Intermediate Itching Verified 04/27/25 13:37 cephalexin monohydrate (From AdvReac WEAKNESS, Verified 04/27/25 13:37 Keflex) MUSCLE ACHES Family History Mother Heart disease CVA (cerebral vascular accident) Diabetes Father No problems noted. Surgical History S/P cervical spinal fusion History of toe surgery History of carpal tunnel release Social History household members: other details: Lives in her home with her 3 children, youngest 9. Smoking Status: Current every day smoker tobacco type: cigarettes, e-cigarettes and smokeless tobacco alcohol intake: never substance use type: does not use ROS ROS ED ROS Narrative Review of systems positive for right ankle swelling over baseline. Right lateral ankle pain wraparound to Achilles tendon area. No exacerbating or alleviating factors otherwise for pain with weightbearing. EXAM Physical Exam Narrative Exam Narrative: Afebrile. Vital signs noted. Nontoxic-appearing. Cardiovascular examination regular rate and rhythm. Lungs clear to auscultation bilaterally. Abdomen soft nontender with no guarding or rebound. Neurological examination nonfocal, nonlateralizing. Inspection of the right ankle reveals minimal right malleoli or tenderness and swelling. No palpable Achilles tendon deficit. No pain at base of fifth metatarsal. Palpable dorsalis pedis pulse. EHL intact, right. No proximal fibular head tenderness. No noted erythema or crepitance. Const Vital Signs: 04/27/25 13:37 Temperature 98.6 F Temperature Source Oral Pulse Rate 81 Respiratory Rate 16 Blood Pressure 115/67 Blood Pressure Mean 83 Pulse Ox 100 Oxygen Delivery Method Room Air MDM MDM MDM Narrative Medical decision making narrative: The differential diagnosis includes but not limited to continued right ankle sprain versus occult fracture versus partial Achilles tendon rupture versus muscle strain. May have low suspicion for septic arthritis or fracture. I reviewed her prior ED report/note and she had bilateral ankle x-rays which were negative for acute fracture. I reviewed the radiology report which confirms my independent interpretation. In discussion with the patient, I will repeat x-ray on the right ankle to make sure there is no bony healing or evidence of a previous occult fracture. She will be referred to Dr. Goss, podiatry on-call for follow-up. She can continue [id number] medications and her gabapentin as needed for pain. When asked about if she received a Aircast for her right ankle, she stated yes, but does not know if she could tolerate the pressure. Instead she will be placed in an Celio wrap. She states that she has a pair of crutches, however she thinks that they are in a storage unit and requested another pair. She was given crutches with teaching. I stressed the importance of follow-up with podiatry. Disposition is discharged home in stable condition. History & Record Review Discussion w/independent historian: Patient Radiography Diagnostic Testing: Clinical Impression(s) from Imaging Studies Ankle X-Ray 04/27/25 14:05 IMPRESSION: NO ACUTE FRACTURE OR DISLOCATION. Reading Location: [facility] Discharge Plan Triage Chief Complaint: Lower Extremity Injury ED Provider: Vu Cabral Dx/Rx/DC Orders Clinical Impression: Ankle pain, right, Achilles tendon pain Instructions: ED Ankle Sprain (Adult) Prescriptions: No Action acetaminophen [Tylenol] 325 mg capsule 325 mg PO ONCE PRN (Reason: Pain 1-10 Or Fever) Aimovig Autoinjector 70 mg/mL auto-injector 70 mg subcut .monthly Rx Instructions: the 8th of each month gabapentin 100 mg capsule 100 mg PO QHS permethrin 5 % cream 1 applic topical Q14D Qty: 60 0RF Rx Instructions: apply 1/2 tube to [id number] leaving on for 8-14 hours before washing off; repeat in 10-12 days medroxyprogesterone 150 MG/ML syringe 150 mg IM .[id number] citalopram 40 MG tablet 40 mg PO DAILY haloperidol 5 MG tablet 2.5 mg PO TID PRN (Reason: Anxiety) apixaban 5 MG tablet 5 mg PO BID lidocaine [Lidoderm] 5 % adhesive patch,medicated 1 patch topical DAILY Qty: 6 0RF Rx Instructions: leave on most painful area for up to 12 hrs lamotrigine 200 mg tablet 200 mg PO DAILY Patient Comments: TAKE 1 TABLET BY MOUTH ONCE DAILY IN THE MORNING cetirizine 10 mg tablet 10 mg PO DAILY famotidine 40 mg tablet 40 mg PO Q12H Patient Comments: PT TAKES AT DINNER TIME AND THEN ONE AT BEDTIME triamcinolone acetonide 55 mcg aerosol,spray 2 spray INTRANASAL DAILY Patient Comments: USE 2 SPRAY(S) INTRANASALLY ONCE DAILY montelukast 10 mg tablet 10 mg PO QHS Patient Comments: TAKE 1 TABLET BY MOUTH ONCE DAILY albuterol sulfate 90 mcg/actuation HFA aerosol inhaler 2 puff inhalation Q6H PRN (Reason: CONGESTION/ALLERGIES) cholecalciferol (vitamin D3) 25 mcg (1,000 unit) capsule 50 mcg PO DAILY topiramate 200 mg tablet 200 mg PO BID methocarbamol 500 mg tablet 250 - 500 mg PO Q8H PRN (Reason: muscle spasm) Qty: 20 0RF Stand Alone Forms: ED Work / School Excuse Primary Care Provider: Haley Kunz Referrals: Clemente Goss MD [Med Staff - Active Staff, Podiatry] - As soon as possible Haley Kunz, PA-C [Primary Care Provider, Medical] Activity Restrictions/Additional Instructions: Wear your Celio wrap on your right ankle. Follow-up with podiatry as soon as possible. Continue your gabapentin as previously directed. Use crutches to help ambulate. Print Language: Setswana Disposition Disposition: Home, Self Care
--- NOTE | 2025-04-27 14:05 | RAD_ITS ---
PROCEDURE: ANKLE MIN 3 VIEWS 04/27/2025 REASON FOR EXAM: PAIN, HISTORY OF TRAUMA 3 WEEKS AGO TECHNIQUE: Procedure Code: RADANK Modality: DX Procedure: ANKLE MIN 3 VIEWS Laterality: Right COMPARISON: 04/05/2025 FINDINGS: Bones: No acute fractures. No destructive osseous lesions. Joints: Normal alignment. Mortise appears intact. No effusion. Soft tissues: Soft tissues are unremarkable. RAD/Ankle min 3 Views IMPRESSION: NO ACUTE FRACTURE OR DISLOCATION. Reading [facility]
--- OUTSIDE RECORDS SUMMARY | 2025-04-27 14:12 | XMS RPT_ITS | CCD ---
Author Organization [facility] Care Team Providers Care [employer] Senior Officer Name Role Phone Dr. Loretta Hermosillo Primary Care Provider [phone] Dr. Les Michel Referring Provider Dr. Les Michel Other Provider Dr. Randal Whitaker Attending Provider COLTON KUNZ PA-C Primary Care Physician [phone] Unavailable Primary Care Provider UnavailNP. Neli De La Torre Primary Care Provider Dr. Jan Ruby Attending Provider Dr. Jeremy Gerard Emergency Provider Dr. Bridgett Ponce Admit Provider Dr. Bridgett Ponce Other Provider Dr. Lucina Barahona Attending Provider Unavailable Dr. Lucina Barahona Other Provider Unavailable NP. Neli Tripp Referring Provider ALONZO Spence Attending Provider JANET FERNANDEZ Referring Unavailable ZE BETHEACCOLTON Primary Care Unavailable LES MICHEL DO Attending Unavailable ZE BETHEACCELINACOLTON Primary Care Unavailable LES MICHEL DO Attending Unavailable JAYDE OSEGUERA Consulting Unavaila ble ZE BETHEAC, COLTON Primary Care Unavailable LES MICHEL DO Admitting Unavailable LES MICHEL DO Attending Unavailable NP. Neli Tripp Primary Care Provider [phone] ALONZO Gentile Attending Provider [phone] ISABEL Katz Attending Provider Ungerer, CLINICAL CARE MANAGER. Neli Primary Care Provider ALONZO Spence Attending Provider [phone] Ungerer, CLINICAL CARE MANAGER. Neli Referring Provider ALONZO Gentile Attending Provider [phone] ISABEL Katz Attending Provider Unavailable Primary Care Provider Unavailabl e Ungerer ROLLING MACHINE OPERATOR AUTOMATIC, Neli D Primary Care Provider [phone] ELIZABETH MARQUES Attending Unavailable JANET FERNANDEZ Referring Unavailable CHARLINE WOOTEN Attending Unavailable CHARLINE WOOTEN Attending Unavailable UNGERER, NELI D Primary Care Unavailable Ungerer CLINICAL CARE MANAGER-C, CLINICAL CARE MANAGER. Neli Primary Care Provider Ungerer CLINICAL CARE MANAGER-C, CLINICAL CARE MANAGER. Neli Referring Provider Torres Spence Attending Provider Vincent GEORGE, Dr. Reyna Emergency Provider Ungerer ROLLING MACHINE OPERATOR AUTOMATIC, Neli D Primary Care Provider Ungerer CLINICAL CARE MANAGER-C, CLINICAL CARE MANAGER. Neli Primary Care Provider Ungerer CLINICAL CARE MANAGER-C, CLINICAL CARE MANAGER. Neli Referring Provider Torres Spence Attending Provider Vincent GEORGE, Dr. Reyna Attending Provider Dr. Axel Kaur MD Emergency Provider [phone] Jarrod Gentile Attending Provider Sterling CLINICAL CARE MANAGER-C, Katheryn Attending Provider Jarrod Gentile Referring Provider Care Physician, No Primary Primary Care Provider Unavailable Vibha BERNAL, Dr. Lao Emergency Provider Ungerer CLINICAL CARE MANAGER-C, Neli Primary Care Provider Ungerer CLINICAL CARE MANAGER-C, Neli Referring Provider Care Physician, No Primary Primary Care Provider Unavailable Vibha BERNAL, Dr. Lao Attending Provider Jarrod Gentile Referring Provider Rajani BERNAL, Dr. Luna Emergency Provider Dereck BERNAL, Dr. Delcid Admit Provider Dereck BERNAL, Dr. Delcid Attending Provider Dereck BERNAL, Dr. Delcid Other Provider Mook GEORGE, Dr. Kothari Attending Provider Flori GEORGE, Dr. Montoya Attending Provider [phone] Mook GEORGE, Dr. Kothari Other Provider COLTON KUNZ Attending Unavailable COLTON KUNZ Primary Care Unavailable COLTON KUNZ Admitting Unavailable UNGERER, NELI CLINICAL CARE MANAGER Consulting Unavailable PROVIDER, UNKNOWN Consulting Unavailable Ze PA-C, Colton D Primary Care Provider Jarrod Gentile Attending Provider Care Physician, No Primary Primary Care Provider Unavailable Gladwin PA-C, Colton Primary Care Provider Dr. Ck Matias DO Emergency Provider Dr. Ck Matias DO Attending Provider Dr. Luis Wilkerson MD Emergency Provider Ze PA-CBebely D Primary Care Provider Ze ROSADO-CColton Primary Care Physician Dr. Ck Matias DO Attending Physician Dr. Ck Matias DO Emergency Department Physi nila Dr. Luis Wilkerson MD Attending Physician Rock GEORGE, Dr. Smith Emergency Department Phys ician Colton Kunz PA-C Referring Provider Torres Spence Attending Physician [phone] Dr. Kirby Salcedo DO Emergency Department Physi nila UNGERER, NELI D Primary Care Unavailable LES MCKEON Referring Unavailable UNGERER, NELI D Primary Care Unavailable PATY ARCINIEGA Referring Unavailable MASCPATY Jones Attending Unavailable UNGERER, NELI D Primary Care Unavailable MASCIPATY Referring Unavailable JEOVANY JOSEPH Attending Unavailable UNGERER, NELI D Primary Care Unavailable SARONA, COLTON D Primary Care Unavailable JASON, PRAMOD Attending Unavailable UNGERER, NELI D Primary Care Unavailable TAYE DELVALLE Referring Unavailable JANET FERNANDEZ Attending Unavailable UNGERER, NELI D Primary Care Unavailable JANET FERNANDEZ Referring Unavailable NICK RACHEL Attending Unavailable UNGERER, NELI D Primary Care Unavailable NICK RACHEL Attending Unavailable UNGERER, NELI D Primary Care Unavailable SARONA, COLTON D Primary Care Unavailable MOOMAW, JAY Referring Unavailable SARONA, COLTON D Primary Care Unavailable DAHLHAUSENCYNDIJANET Referring Unavailable SARONA, COLTON D Primary Care Unavailable JASON, PRAMOD Referring Unavailable JASON, PRAMOD Attending Unavailable SARONA, COLTON D Primary Care Unavailable JASON, PRAMOD Referring Unavailable MOOMAW, JAY Attending Unavailable SARONA, COLTON D Primary Care Unavailable UNGERER, NELI D Primary Care Unavailable JEOVANY JOSEPH Referring Unavailable UNGERER, NELI D Primary Care Unavailable ANTWON ESCOBEDO Attending Unavailable SARONA, COLTON D Primary Care Unavailable JASON, PRAMOD Referring Unavailable SARONA, COLTON D Primary Care Unavailable JASON, PRAMOD Referring Unavailable BRIAN SHELDON Attending Unavailable MICHELLE MARVIN Attending Unavailable SARONA, COLTON D Primary Care Unavailable UNGERER, NELI D Primary Care Unavailable PATY ARCINIEGA Referring Unavailable UNGERER, NELI D Primary Care Unavailable UNGERER, NELI D Primary Care Unavailable UNGERER, NELI D Primary Care Unavailable IVANIA NELI Referring Unavailable SARONACOLTON Primary Care Unavailable JASON, PRAMOD Referring Unavailable COLTON KUNZ D Primary Care Unavailable JASON, PRAMOD Referring Unavailable Luis Wilkerson Attending Unavailable GladwinColton Primary Care Unavailable Care Physician, No Primary Primary Care Unava ilable Dereck, Farhana Consulting Unavailable Dereck, Farhana Admitting Unavailable Mook, Taye Attending Unavailable Care Physician, No Primary Primary Care Unava ilable Jarrod Gentile Referring Unavailable Jarrod Gentile Attending Unavailable Kirby Salcedo Attending Unavailable GladwinColton Primary Care Unavailable Care Physician, No Primary Primary Care Unava ilable Jan Ruby Attending Unavailable Care Physician, No Primary Primary Care Unava ilable Dereck, Farhana Consulting Unavailable Dereck, Farhana Admitting Unavailable Dereck Farhana Attending Unavailable Mook, Taye Attending Unavailable Mook, Taye Consulting Unavailable Torres Spence Attending Unavailable GladwinColton Referring Unavailable GladwinColton Primary Care Unavailable Torres Spence Attending Unavailable GladwinColton Referring Unavailable GladwinColton Primary Care Unavailable Ungerer, Neli Referring Unavailable Ungerer, Neli Primary Care Unavailable Torres Spence Attending Unavailable Ungerer, Neli Referring Unavailable Ungerer, Neli Primary Care Unavailable Jarrod Gentile Attending Unavailable Ungerer, Neli Referring Unavailable Ungerer, Neli Primary Care Unavailable Katheryn Katz Attending Unavailable Shilo Dunne [facility] Care Phys[facility], No Primary Primary Care Unava ilable Ck Matias Attending Unavailable GladwinColton Primary Care Unavailable Ungerer, Neli Primary Care Unavailable Axel Kaur Attending Unavailable Gladwin THERON, Colton Primary Care Physician Dr. Ck Matias DO Attending Physician Dr. Ck Matias DO Emergency Department Physi nila Dr. Luis Wilkerson MD Attending Physician Dr. Luis Wilkerson MD Emergency Department Phys ician Colton Kunz PA-C Referring Provider Torres Spence Attending Physician Dr. Kirby Salcedo DO Attending Physician Dr. Kirby Salcedo DO Emergency Department Physi nila Allergies Allergy Classification Reported Allergen(s) Allergy Type Date of Onset Reaction(s) Facility (17 sources) Cephalexin; Translations: [cephalexin monohydrate] Drug Allergy 1 WEAKNESS, MUSCLE ACHES [facility] (1 source) Penicillins Allergy to substance 1 unknown [facility] Work Phone: (15 sources) Acetaminophen Drug Allergy 2 Itching [facility] (15 sources) HYDROcodone Drug Allergy 2 Itching [facility] (6 sources) Acetaminophen / HYDROcodone; Translations: [acetaminophen-hy drocodone] Drug Allergy Itching [facility] (20 sources) Acetaminophen / oxyCODONE; Translations: [acetaminophen-ox ycodone] Drug Allergy 3 Other: See Comments [facility] (20 sources) Cephalexin; Translations: [cephalexin] Drug Allergy 4 Other: See Comments [facility] (10 sources) [facility] [address] [facility] Acetaminophen / oxyCODONE; Translations: [OXYCODONE-ACETAM INOPHEN] Drug Allergy 4 [facility] Other [facility] (1 source) Acetaminophen / HYDROcodone Drug Allergy [facility] (1 source) Acetaminophen / HYDROcodone Drug Allergy [facility] (1 source) Acetaminophen / oxyCODONE Drug Allergy [facility] (1 source) Cephalexin Drug Allergy [facility] (1 source) Cephalexin Drug Allergy [facility] (1 source) Naproxen Drug Allergy [facility] (1 source) vortioxetine Drug Allergy [facility] (1 source) Acetaminophen Drug Allergy 5 [facility] (1 source) HYDROcodone Drug Allergy 5 [facility] (1 source) oxyCODONE Drug Allergy 5 [facility] Medications Current Medications Medication Drug Class(es) Dates Sig (Normalized) Sig (Original) acetaminophen 325 mg oral capsule (16 sources) Start: 08-26-2020 take 1-10 capsules by mouth once as needed for pain [id number] actuat albuterol 0.09 mg/actuat metered dose inhaler (20 sources) beta2-Adrenergic Agonist Start: 03-19-2024 take 2 puff(s) by inhalation every six hours as needed for wheezing albuterol HFA (PROVENTIL HFA, VENTOLIN HFA) 90 mcg/actuation inhaler Indications: Acute cough Inhale 2 Puffs as instructed every 6 hours as needed for wheezing/shortnes s of breath. 1 Each 03/19/2024 Active Start: 03-15-2023 Start: 03-15-2023 take 1 puff(s) by in halation every six hours Albuterol Sulfate Active 2 PUFF INHALATION EVERY 6 HOURS March 15, 2023 12:00am Start: 03-15-2023 Albuterol Sulf ate Active INHALATION March 15, 2023 12:00am Start: 06-24-2019 End: 08-26-2020 Albuterol Sulfate 1 PUFF inh aler Discontinued 2 NMA INHALATION EVERY 4 HOURS NEEDED as needed for Sob &/Or Wheezing June 24, 2019 12:00am August 26, 2020 7:39am Start: 06-24-2019 End: 08-26-2020 take 1 puff(s) [...] Active Start: 06-03-2020 take 1 tablet by mouth twice d rabiay Comment on above: Take 1 tablet by juliano th every 12 hours. azithromycin 250 mg oral tablet (18 sources) Macrolide Antimicrobial Start: 03-28-20 End: 04-02-20 [...] mg PO DAILY 4 4 0 April 03, 2019 11:00pm April 06, 2019 11:00pm April 10, 2019 11:10pm cetirizine hydrochloride 10 mg oral tablet (20 sources) Histamine-1 Receptor Antagonist Start: 03-15-2023 Cetirizine Active MG March 15, 2023 12:00am Start: 01-21-2023 take 1 tablet by juliano th once daily Start: 11-25-2022 cetirizine 10 mg oral tablet Dose : 10 mg = 1 tab(s), Oral, Daily, 0 Refill(s) Start Date: 11/25/22 Status: Ordered Start: 01-30-2015 End: 08-26-2020 take 1 capsule by mouth once daily Cetirizine 10 MG capsule Discontinued 10 mg PO DAILY January 29, 2015 11:00pm August 26, 2020 7:42am chlorzoxazone 500 mg oral tablet (15 sources) Muscle Relaxant Start: 10-25-2024 chlorzoxazone (PARAFON FORTE DSC) 500 mg tablet Take 1 tablet (500 mg) by mouth four times a day until headache free for 24 hours or take for full 5 days. 20 tablet 10/25/2024 Active cholecalciferol 0.025 mg oral capsule (20 sources) Vitamin D Start: 10-22-2024 take 1 capsule by mouth once daily Start: 02-21-2023 take 2 tablets by mouth once c holecalciferol (VITAMIN D3) 1,000 unit tab tablet Take 2 tablets by mouth every afternoon. 02/21/2023 Active Start: 06-03-2020 End: 10-22-2024 take 1 capsule by mouth once daily Cholecalciferol (Vitamin D3) 2,000 UNIT capsule Discontinued 2000 U PO DAILY June 03, 2020 12:00am October 22, 2024 9:12pm vitamin Comment on above: Take 2 tablets by [facility] every afternoon. doxycycline hyclate 100 mg oral tablet (10 sources) Tetracycline-class Drug Start: End: take 1 tablet by mouth twice daily doxycycline (VIBRA-TABS) 100 mg tablet Indications: Rhinosinusitis Take 1 tablet by mouth two times a day for 7 days. 14 tablet 03/19/2024 03/26/2024 Active Start: 03-05-2024 End: 04-10-2024 take 1 capsule by mouth twice daily Doxycycline Monohydrate 100 mg capsule Discontinued 100 mg PO TWICE A DAY 20 0 March 04, 2024 11:00pm April 10, 2024 10:42am 1 ml erenumab-aooe 70 mg/ml auto-injector (20 sources) Start: 10-02-2023 End: 01-15-2025 famotidine 40 mg oral tablet (20 sources) Histamine-2 Receptor Antagonist Start: 03-30-2023 take 1 tablet by mouth twice daily at bedtime famotidine (PEPCID) 40 mg tablet TAKE 1 TABLET BY MOUTH TWICE DAILY WITH SUPPER AND AT BEDTIME 03/30/2023 Active Start: 03-15-2023 take 1 tablet by juliano every twelve hours Start: 03-15-2023 Famotidine Act ivon MG March 15, 2023 12:00am Start: 11-25-2022 famotidine 40 mg oral tablet Dose : 40 mg = 1 tab(s), Oral, Daily, 0 Refill(s) Start Date: 11/25/22 Status: Ordered Comment on above: TAKE 1 TABLET BY JULIANO TWICE DAILY WITH SUPPER AND AT BEDTIME gabapentin 100 mg oral capsule (5 sources) Anti-epileptic Agent Start: 03-25-2025 take 1 capsule by mouth at bedtime Start: 03-25-2025 take 1 capsule by mo [facility] at bedtime Start: 02-17-2025 End: 03-19-2025 take 1 capsule by mouth once daily at bedtime gabapentin (NEURONTIN) 100 mg capsule Take 1 capsule by mouth daily at bedtime for 30 days. 30 capsule 02/17/2025 03/19/2025 Active haloperidol 5 mg oral tablet (20 sources) Typical Antipsychotic Start: 11-25-2022 haloperi dol 5 mg oral tablet Dose : 2.5 mg = 0.5 tab(s), Oral, TID, PRN Anxiety Start Date: 11/25/22 Status: Ordered Start: 04-04-2019 take 2.5 mg by mouth three times daily as needed for anxiety Start: 04-04-2019 take 2.5 mg by mouth [...] 1 tablet by juliano th once daily Start: 11-25-2022 lamoTRIgine 20 0 mg oral [...] DAILY IN THE MORNING lidocaine 0.05 mg/mg medicat ed patch (20 sources) Antiarrhythmic, Amide Local Anesthetic Start: 04-13-2021 Start: 06-03-2020 End: 06-08-2020 Lidocaine 1 PATCH patch Discontinued 1 NMA TOPICAL DAILY 5 5 0 June 03, 2020 12:00am June 07, 2020 12:00am June 08, 2020 12:02am Keep on the affected area for up to 12 hours/day. apply 1 dose transde rmal route every twenty-four hours lidocaine (LIDODERM) 5 % Apply 1 Patch as directed every 24 hours. Active 1 ml medroxyPROGESTERone acetate 150 mg/ml prefilled syringe (20 sources) Progestin Start: 01-30-2015 inject 150 mg by intramuscular injection every three months Start: 01-30-2015 inject 150 mg by int ramuscular injection every three months Medroxyprogesterone Active 150 MG IM .[id number] January 30, 2015 12:00am medroxyPROGESTER one (DEPO-PROVERA) 150 mg/mL injection Inject 150 mg intramuscularly every 12 weeks. Active methocarbamol 500 mg oral tablet (20 sources) Muscle Relaxant Start: 08-17-2024 End: 01-23-2025 take 250-500 mg by mouth every eight hours as needed for muscle spasms Start: 08-17-2024 take 250-500 mg by m [...] pain/spasm 56 7 0 July 18, 2023 10:35pm August 29, 2023 11:31pm Start: 07-18-2023 End: 08-30-2023 take 1000 mg [...] Start: 03-15-2023 take 1 tablet by mouth at bedtime Start: 03-15-2023 Montelukast Ac tive MG March 15, 2023 12:00am Start: 04-04-2019 End: 08-26-2020 take 1 tablet by mouth once daily Montelukast 10 MG tablet Discontinued 10 mg PO DAILY April 03, 2019 11:00pm August 26, 2020 7:41am Comment on above: Take 1 tablet by juliano th every afternoon. nystatin 100 unt/mg topical powder (20 sources) Polyene Antifungal Start: 03-30-2023 nystatin (MYCOSTATIN) powder APPLY POWDER TOPICALLY TWICE TO THREE TIMES DAILY TO GROIN AREA DIRECTED 03/30/2023 Active Comment on above: APPLY POWDER TOPICAL LY TWICE TO THREE TIMES DAILY TO GROIN AREA DIRECTED permethrin 50 mg/ml topical cream (3 sources) Pyrethroid Start: 03-25-2025 Start: 03-25-2025 rimegepant 75 mg disintegrating oral tablet (20 [...] needed Rimegepant (Nurtec Odt) 75 mg tablet,disintegrating Discontinued 75 mg PO DAILY NEEDED August 29, 2023 11:00pm January 23, 2025 2:16am MIGRAINE Comment on above: Take 1 tablet by juliano th once daily as needed. Take 1 tablet by juliano th every other day in the morning. topiramate 200 mg oral tablet (20 sources) Start: 04-12-2023 take 1 tablet by mouth twice daily Start: 11-25-2022 topiramate 200 mg oral tablet Dose : 200 mg = 1 tab(s), Oral, BID, # 60 tab(s), 0 Refill(s) Start Date: 11/25/22 Status: Ordered Start: 01-30-2015 End: 10-22-2024 Topiramate 25 MG tablet Disc ontinued 200 mg PO TWICE A DAY January 29, 2015 11:00pm October 22, 2024 9:11pm Start: 01-30-2015 take 200 mg by mouth twice daily Topiramate Active 200 MG PO TWICE A DAY January 30, 2015 12:00am traMADol hydrochloride 50 mg oral tablet (19 sources) Opioid Agonist Start: 11-25-2022 traMADol 50 [...] as needed for Pain 10 3 February 13, 2020 11:00pm February 15, 2020 11:00pm February 16, 2020 11:02pm Strain of lumbar region Strain of muscle, fascia and tendon of lower back, initial encounter triamcinolone acetonide 0.05 5 mg/actuat metered dose nasal spray (20 sources) Corticosteroid Start: 03-15-2023 Start: 03-15-2023 Triamcinolone Acetonide Active 2 SPRAY [...] NS NEEDED as needed for Congestion January 29, 2015 11:00pm August 26, 2020 7:41am Completed/Discontinued Medications Medication Drug Class(es) Dates Sig (Normalized) Sig (Original) acetaminophen 325 mg / HYDROcodone bitartrate 5 mg oral tablet (17 sources) Opioid Agonist Start: 08-17-2024 End: 09-07-2024 Hydrocodone-Acetami nophen 5-325 mg tablet Discontinued 1 {tbl} PO EVERY 6 HOURS as needed for pain 12 3 0 August 17, 2024 September 07, 2024 10:27am Acute myofascial strain of lumbar region Strain of muscle, fascia and tendon of lower back, initial encounter Start: 12-07-2022 End: 12-14-2022 take 1 tablet by mouth every six hours as needed for pain [place] 325- 5 mg oral tablet Dose = 1 tab(s), Oral, q6h, PRN for pain, X 7 day(s), # 28 tab(s), 0 Refill(s), Pharmacy: [id number], Cervical spondylosis, 160, cm, 12/07/22 [...] 12 3 0 July 18, 2023 August 29, 2023 11:31pm Acute cervical myofascial strain Strain of muscle, fascia and tendon at neck level, initial encounter Start: 05-07-2022 End: 03-15-2023 Oxycodone-Acetaminophen (Per cocet) 5-325 mg tablet Discontinued 1 {tbl} PO EVERY 6 HOURS as needed for pain 12 3 0 May 07, 2022 March 15, 2023 8:36pm Contusion of right foot Contusion of right foot, initial encounter acyclovir 400 mg oral tablet (16 sources) Herpesvirus Nucleoside Analog DNA Polymerase Inhibitor, Herpes Simplex Virus Nucleoside Analog DNA Polymerase Inhibitor, Herpes Zoster Virus Nucleoside Analog DNA Polymerase Inhibitor Start: 07-17-2019 End: 08-26-2020 take 1 tablet by mouth three times daily as needed Acyclovir 400 MG tablet Discontinued 400 mg PO THREE TIMES A DAY as needed for herpes outbreak July 17, 2019 12:00am August 26, 2020 7:39am amoxicillin 500 mg oral capsule (20 sources) [...] A DAY 30 0 June 19, 2024 12:00am August 17, 2024 4:12pm Start: 09-05-2023 End: 10-31-2023 take 1 tablet by mouth three times daily Amoxicillin 500 mg tablet Discontinued 500 mg PO THREE TIMES A DAY September 04, 2023 11:00pm October 31, 2023 12:02pm amoxicillin 875 mg / clavulanate 125 mg oral tablet (12 sources) Penicillin-class Antibacterial Start: 06-02-2023 End: 06-12-2023 Amoxicillin-Pot Clavulanate 875-125 mg tablet Discontinued 1 {tbl} PO Q12H 20 10 0 June 02, 2023 12:00am June 11, 2023 12:00am June 12, 2023 12:04am Acute sinusitis, unspecified Start: 06-02-2023 End: 06-12-2023 take 1 tablet by mouth every twelve hours Amoxicillin-Pot Clavulanate Discontinued 1 TABLET PO Q12H 20 June 02, 2023 1:00am June 12, 2023 1:04am baclofen 20 mg oral tablet (16 sources) gamma-Aminobutyric Acid-ergic Agonist Start: 06-03-2020 End: 08-30-2023 take 10-20 mg by mouth three times daily as needed for muscle spasms Baclofen 20 MG tablet Discontinued 10 - 20 mg PO THREE TIMES A DAY as needed for Spasms June 03, 2020 12:00am August 29, 2023 11:28pm benzonatate 200 mg oral capsule (20 sources) Non-narcotic Antitussive Start: 10-31-2023 End: 01-16-2024 take 1 capsule by mouth three times daily as needed for cough Benzonatate 200 mg capsule Discontinued 200 mg PO THREE TIMES A DAY as needed for cough 20 0 October 30, 2023 11:00pm January 16, 2024 12:27pm Start: 04-25-2023 End: 08-30-2023 take 1 capsule by mouth three times daily as needed for cough Benzonatate 200 mg capsule Discontinued 200 mg PO THREE TIMES A DAY as needed for cough 20 0 April 25, 2023 12:00am August 29, 2023 11:28pm 24 hr buPROPion hydrochloride 150 mg extended release oral tablet (16 sources) Aminoketone Start: 06-03-2020 End: 08-26-2020 take 1 tablet by mouth twice daily Bupropion Hcl 150 MG tablet extended release 24 hr Discontinued 150 mg PO TWICE A DAY June 03, 2020 12:00am August 26, 2020 7:42am chlorhexidine gluconate 1.2 mg/ml mouthwash (3 sources) Start: 07-16-2023 End: 01-16-2024 Chlorhexidine Gluconate (Peridex) 0.12 % mouthwash Discontinued 15 mL BUCCAL TWICE A DAY July 16, 2023 12:00am January 16, 2024 12:26pm Chlorhexidine Gluconate (Peridex) 0.12 % mouthwash (9 [...] TWICE A DAY July 16, 2023 12:00am citalopram 40 mg oral tablet (20 sources) Serotonin Reuptake Inhibitor Start: 04-04-2019 End: 10-23-2024 take 1 tablet by mouth once daily Citalopram (Celexa) 40 mg tablet Discontinued 40 mg PO DAILY October 21, 2024 11:00pm October 23, 2024 2:40pm Comment on above: Take 1 tablet by juliano th every afternoon. cyclobenzaprine hydrochloride 10 mg oral tablet (9 sources) Muscle Relaxant Start: 10-17-2023 End: 08-17-2024 take 1 tablet by mouth three times daily as needed for muscle spasms Cyclobenzaprine 10 mg tablet Discontinued 10 mg PO THREE TIMES A DAY as needed for muscle spasm 20 0 October 16, 2023 11:00pm August 17, 2024 4:14pm diclofenac sodium 0.01 mg/mg topical gel (16 sources) Nonsteroidal Anti-inflammator y Drug Start: 04-13-2021 End: 03-15-2023 Diclofenac Sodium 1 % gel Discontinued 1 NMA TOPICAL THREE TIMES A DAY April 12, 2021 11:00pm March 15, 2023 8:35pm 1 ml enoxaparin sodium 100 mg/ml prefilled [...] DAY 54 30 2 January 10, 2024 2:23pm August 17, 2024 4:12pm Start: 01-08-2024 End: 01-10-2024 Enoxaparin (Lovenox) 100 mg/ mL syringe Discontinued 90 mg SC DAILY 10 0 January 07, 2024 11:00pm January 10, 2024 2:32pm End: 05-24-2024 enoxaparin (LOVENOX) 100 mg/ mL syrg Inject subcutaneously every 12 hours. 05/24/2024 Discontinued (Course of therapy completed) FLUoxetine 10 mg oral capsule (16 sources) Serotonin Reuptake Inhibitor Start: 11-18-2013 End: 11-25-2013 take 1 capsule by mouth once daily Fluoxetine 10 MG capsule Discontinued 10 mg PO DAILY November 17, 2013 11:00pm November 25, 2013 8:40am Lactobacillus Combination No.8 (Adult Probiotic) 3 billion cell capsule (16 sources) Start: 08-26-2020 End: 03-15-2023 take 3 [...] meal meclizine hydrochloride 25 mg oral tablet (16 sources) Antiemetic Start: 06-03-2020 End: 08-26-2020 take 1 tablet by mouth once daily as needed Meclizine 25 MG tablet Discontinued 25 mg PO DAILY as needed for Vertigo June 03, 2020 12:00am August 26, 2020 7:42am methylPREDNISolone 4 mg oral tablet (20 sources) Corticosteroid Start: 09-07-2024 End: 10-22-2024 take 1 tablet by mouth once Methylprednisolone (Medrol (Julio Cesar)) 4 mg tablets,dose pack Discontinued 0 PO per package directions September 06, 2024 11:00pm October 22, 2024 9:18pm PO PER PKG DIR for 6 days Start: 10-31-2023 End: 01-16-2024 take 1 tablet by mouth once Methylprednisolone (Medrol (Julio Cesar)) 4 mg tablets,dose pack Discontinued 0 PO per package directions 21 0 October 30, 2023 11:00pm January 16, 2024 12:28pm PO PER PKG DIR Start: 07-27-2023 End: 08-02-2023 take 1 tablet by mouth once Methylprednisolone (Medrol (Julio Cesar)) 4 mg tablets,dose pack Discontinued 4 mg PO per package directions 21 6 0 July 27, 2023 12:00am August 01, 2023 12:00am August 02, 2023 12:04am Start: 05-22-2023 End: 06-08-2023 take 1 tablet by mouth once Methylprednisolone (Medrol (Julio Cesar)) 4 mg tablets,dose pack Discontinued 4 mg PO per package directions 21 6 0 June 02, 2023 12:00am June 07, 2023 12:00am June 08, 2023 12:05am Start: 01-11-2016 End: 11-14-2023 inject 20 mg by intramuscular injection every three months methylPREDNISolone acetate (DEPO-MEDROL) 20 mg/mL susp Inject 20 mg intramuscularly every 3 months. 0 01/11/2016 11/14/2023 Discontinued mupirocin 0.02 mg/mg topical ointment (20 sources) RNA Synthetase Inhibitor Antibacterial Start: 07-16-2023 End: 08-30-2023 Mupirocin 2 % ointment Discontinued 1 NMA TOPICAL THREE TIMES A DAY 15 0 July 16, 2023 12:00am August 29, 2023 11:31pm Start: 07-16-2023 End: 08-30-2023 Mupirocin 2 % ointment Disco ntinued 1 NMA TOPICAL THREE TIMES A DAY 15 0 July 16, 2023 1:00am August 30, 2023 [...] THREE TIMES A DAY July 03, 2020 12:00am August 26, 2020 7:41am naproxen 500 mg oral tablet (16 sources) Nonsteroidal Anti-inflammatory Drug Start: 04-13-2021 End: 03-15-2023 take 1 tablet by mouth twice daily as needed for pain Naproxen (Naprosyn) 500 mg tablet Discontinued 500 mg PO TWICE A DAY as needed for pain April 12, 2021 11:00pm March 15, 2023 8:35pm 24 hr nicotine 0.583 mg/hr transdermal system (6 sources) Cholinergic Nicotinic Agonist Start: 10-23-2024 End: 01-23-2025 apply 1 dose transdermal route every twenty-four hours Nicotine 14 mg/24 hr Patch 24 Hour Discontinued 14 mg TD DAILY October 22, 2024 11:00pm January 23, 2025 2:16am microencapsulated potassium chloride 20 meq extended release oral tablet (13 sources) Start: 03-16-2023 End: 08-30-2023 take 1 tablet by mouth twice daily Potassium Chloride 20 mEq tablet,ER particles/cryst als Discontinued 20 meq PO TWICE A DAY March 15, 2023 11:00pm August 29, 2023 11:31pm predniSONE 20 mg oral tablet (20 sources) Start: 01-30-2025 End: 03-25-2025 take 2 tablets by mouth once daily Prednisone 20 mg tablet Discontinued 40 mg PO DAILY 12 January 29, 2025 11:00pm March 25, 2025 2:47pm Start: 01-11-2025 End: 01-16-2025 take 1 tablet [...] 10 mg PO DAILY 30 0 October 16, 2023 11:00pm January 16, 2024 12:28pm 4 tablets daily x3 days, then 3 tablets daily x3 days, then 2 tablets daily x3 days, then 1 tablet daily x3 days SUMAtriptan 100 mg oral tablet (18 sources) Serotonin-1b and Serotonin-1d Receptor Agonist Start: 03-15-2023 Sumatriptan Succinat e Active MG PO March 15, 2023 12:00am Start: 03-12-2023 End: 08-30-2023 take 1 tablet by mouth every two hours as needed for headache Sumatriptan Succinate 100 mg tablet Discontinued 100 mg PO Q2H as needed for migraine headache March 14, 2023 11:00pm August 29, 2023 11:31pm Start: 11-25-2022 take 1 tablet by juliano [...] Progressing stroke; Translations: [Cerebral infarction, unspecified] Onset: 10-25-2023 Chronic Anxiety disorders (20 sources) Anxiety; Translations: [Anxiety disorder, unspecified] 09-29-2020 Chronic Chronic obstructive pulmonary disease and bronchiectasis (16 sources) Bronchitis; Translations: [Bronchitis, not specified as acute or chronic] 06-18-2019 Episodic Coagulation and hemorrhagic disorders (20 sources) Factor V Leiden mutation; 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] Onset: Chronic Coma; stupor; and brain damage (1 source) Daytime somnolence; Translations: [Somnolence] 02-28-2024 Episodic Deficiency and other anemia (11 sources) Anemia; Translations: [Anemia, unspecified] 10-22-2024 Episodic Disorders of teeth and jaw (20 sources) Toothache; Translations: [Other specified disorders of teeth and supporting structures] 07-16-2023 Episodic E Codes: Fall (3 sources) Fall; Translations: [Unspecified fall, initial encounter] 04-02-2025 Episodic Esophageal disorders (9 sources) Gastroesophageal reflux disease without esophagitis; Translations: [Gastro-esophageal reflux disease without esophagitis] Onset: 3 Chronic Fluid and electrolyte disorders (16 sources) Hypokalemia; Translations: [Hypokalemia] 03-15-2023 Episodic Gout and other crystal arthropathies (13 sources) Gouty arthritis of left great toe; Translations: [Gout, unspecified] 07-27-2023 Chronic Headache; including migraine (20 sources) Migraine; Translations: [Migraine, unspecified, not intractable, without status migrainosus] Onset: 3 Chronic Headache; including migraine (20 sources) Headache; Translations: [Headache] Onset: 5 10-22-2024 Episodic Headache; including migraine (1 source) Headache; including migraine; Translations: [Headache, unspecified] Onset: 5 Malaise and fatigue (17 sources) Asthenia; Translations: [Weakness] 03-15-2023 Episodic Mood disorders (1 source) Bipolar disorder; Translations: [Bipolar disorder, unspecified] Onset: 3 Chronic Other aftercare (16 sources) Long-term current use of anticoagulant; Translations: [detention (current) use of anticoagulants] Onset: 5 08-25-2024 [...] deficits] 11-14-2024 Episodic Other connective tissue disease (16 sources) Tendinitis of shoulder region; Translations: [Other enthesopathies, not elsewhere classified] 09-30-2020 Episodic Other connective tissue disease (20 sources) Weakness of face muscles; Translations: [Facial weakness] 03-15-2023 Episodic Other connective tissue disease (12 sources) Spasm; Translations: [Other muscle spasm] 07-18-2023 [...] upper arm, initial encounter] 05-24-2024 Episodic Other injuries and conditions due to external causes (1 source) Encounter for examination and observation following other accident; Translations: [Encounter for examination and observation following other accident] Onset: 5 Episodic Other lower respiratory disease (2 sources) Snoring; Translations: [Snoring] 09-14-2023 Episodic Other lower respiratory disease (5 sources) Cough; Translations: [Acute cough] 03-19-2024 Episodic Other nervous system disorders (1 source) Demyelinating disease of central nervous system, unspecified; Translations: [Demyelinating disease of central nervous system (HCC)] Onset: 3 Chronic Other nervous system disorders (17 sources) Expressive dysphasia; Translations: [Aphasia] 10-22-2024 Chronic [...] Onset: 3 Episodic Other nervous system disorders (11 sources) Dysarthria; Translations: [Dysarthria and anarthria] 08-29-2023 Episodic Other nervous system disorders (2 sources) Dysarthria and anarthria; Translations: [Dysarthria] 08-29-2023 Episodic Other nervous system disorders (6 sources) Numbness of face; Translations: [Anesthesia of skin] 09-14-2023 Episodic Other nervous system disorders (4 sources) Disturbance in speech; Translations: [Unspecified speech disturbances] 09-17-2023 Episodic Other nervous system disorders (14 sources) Paresthesia; Translations: [Paresthesia of skin] Onset: 4 10-22-2024 Episodic Other nervous system disorders (5 sources) Paresthesia of right lower limb; Translations: [Paresthesia of skin] 01-02-2025 Episodic Other nervous system disorders (1 source) H/O: Disorder; Translations: [Personal history of other diseases of the nervous system and sense organs] 01-02-2025 Episodic Other non-traumatic joint disorders (16 sources) Shoulder pain; Translations: [Pain in unspecified shoulder] 06-04-2020 Episodic Other non-traumatic joint disorders (2 sources) Pain in left knee; Translations: [Pain in joint, lower leg] 04-10-2024 Episodic Other non-traumatic joint disorders (2 sources) Pain of right wrist; Translations: [Pain in right wrist] 07-29-2024 Episodic Other non-traumatic joint disorders (8 sources) Pain in wrist; Translations: [Pain in unspecified wrist] 09-22-2024 Episodic Other non-traumatic joint disorders (6 sources) Multiple joint pain; Translations: [Pain in unspecified joint] 01-02-2025 Episodic Other non-traumatic joint disorders (5 sources) Hip pain; Translations: [Pain in right hip] 01-02-2025 Episodic Other non-traumatic joint disorders (4 sources) Acute ankle pain; Translations: [Pain in right ankle and joints of right foot] 01-11-2025 Episodic Other skin disorders (5 sources) Eruption; Translations: [Rash and other nonspecific skin eruption] 01-02-2025 Episodic Other skin disorders (2 sources) Rash and other nonspecific skin eruption; Translations: [Rash and nonspecific skin eruption] Onset: Episodic Other upper respiratory disease (20 sources) Seasonal allergic rhinitis; Translations: [Other seasonal allergic rhinitis] Onset: 5 10-11-2020 Chronic Other upper respiratory infections (1 source) Chronic sinusitis, unspecified; Translations: [Unspecified sinusitis (chronic)] 03-19-2024 Chronic Phlebitis; thrombophlebitis and thromboembolism (9 sources) Chronic deep venous thrombosis; Translations: [Chronic embolism and thrombosis of unspecified deep veins of unspecified lower extremity] 04-10-2024 Chronic Residual codes; unclassified (3 sources) Cognitive perceptual pattern; Translations: [Unspecified symptoms and signs involving general sensations and perceptions] 09-14-2023 Episodic Residual codes; unclassified (1 source) Memory impairment; Translations: [Other amnesia] 09-14-2023 Episodic Residual codes; unclassified (1 source) Harmful pattern of use of nicotine; Translations: [Tobacco use] 11-13-2023 Episodic Residual codes; unclassified (1 source) Livedo reticularis; Translations: [Pallor] 01-02-2025 Episodic Residual codes; unclassified (5 sources) Tobacco use and exposure - finding; Translations: [Tobacco use] 01-23-2025 Episodic Skin and subcutaneous tissue infections (17 sources) Impetigo; Translations: [Impetigo, unspecified] 07-16-2023 Episodic Spondylosis; intervertebral disc disorders; other back problems (20 sources) Backache; Translations: [Dorsalgia, unspecified] Onset: 5 04-21-2021 Episodic Sprains and strains (20 sources) Lumbosacral strain; Translations: [Strain of muscle, fascia and tendon of lower back, initial encounter] Onset: 5 07-18-2019 Episodic Substance-related disorders (1 source) Tobacco user; Translations: [Nicotine dependence, unspecified, uncomplicated] 02-28-2024 Chronic Superficial injury; contusion (15 sources) Contusion of foot; Translations: [Contusion of right foot, initial encounter] 05-15-2022 Episodic Systemic lupus erythematosus and connective tissue disorders (1 source) Sicca syndrome, unspecified; Translations: [Sicca syndrome (HCC)] Onset: 5 Chronic Transient cerebral ischemia (20 sources) Transient cerebral ischemia; Translations: [Transient cerebral ischemic attack, unspecified] 03-15-2023 Chronic Unclassified (3 sources) cysto insertion stent, eswl Onset: 6 01-04-2006 Unclassified (1 source) Cognitive perceptual pattern 12-05-2024 Unclassified (1 source) Acute midline low back pain without sciatica; Translations: [Acute midline low back pain without sciatica] Onset: 5 Unclassified (1 source) Acute cough; Translations: [Acute cough] Onset: 5 Unclassified (1 source) Cough, unspecified; Translations: [Cough, unspecified] Onset: 5 Urinary tract infections (1 source) Interstitial cystitis (chronic) without hematuria; Translations: [Chronic interstitial cystitis] 02-17-2025 Chronic Viral infection (1 source) Disease caused by 2019-nCoV; Translations: [COVID-19] 06-26-2024 Episodic Past or Other Problems Problem Classification Problem Date Documented Da te Episodic/Chronic Deficiency and other anemia (1 source) Anemia, unspecified; Translations: [Anemia, unspecified] Onset: 10-23-2024 Episodic Immunizations and screening for infectious disease (2 sources) Anti-nuclear factor positive; Translations: [Other specified abnormal immunological findings in serum] Onset: 01-15-2025 02-17-2025 Episodic Other circulatory disease (1 source) Personal history of transient ischemic attack (TIA), and cerebral infarction without residual deficits; Translations: [History of TIA (transient ischemic attack)] Onset: 11-14-2024 Episodic Other connective tissue disease (4 sources) Facial weakness; Translations: [Facial weakness] Onset: 10-25-2023 03-15-2023 Episodic Other connective tissue disease (4 sources) Other symptoms and signs involving the musculoskeletal system; Translations: [Weakness of left lower extremity] Onset: 10-23-2024 10-31-2024 Episodic Other injuries and conditions due to external causes (1 source) Unspecified injury of right shoulder and upper arm, initial encounter; Translations: [Injury of right shoulder, initial encounter] Onset: 05-24-2024 Episodic Other nervous system disorders (2 sources) Anesthesia of skin; Translations: [Facial numbness] Onset: 10-25-2023 Episodic Other nervous system disorders (2 sources) Unspecified speech disturbances; Translations: [Speech disturbance, unspecified type] Onset: 10-25-2023 Episodic Other nervous system disorders (1 source) Paresthesia of skin; Translations: [Right leg paresthesias] Onset: 01-02-2025 Episodic Other nervous system disorders (1 source) Personal history of other diseases of the nervous system and sense organs; Translations: [History of carpal tunnel syndrome] Onset: 01-02-2025 Episodic Other nervous system disorders (1 source) White matter disease, unspecified; Translations: [White matter abnormality on MRI of brain] Onset: 12-18-2024 Episodic Other non-traumatic joint disorders (1 source) Pain in right ankle and joints of right foot; Translations: [Acute right ankle pain] Onset: 01-11-2025 Episodic Other non-traumatic joint disorders (1 source) Pain in unspecified joint; Translations: [Pain in joint, multiple sites] Onset: 01-02-2025 Episodic Other non-traumatic joint disorders (1 source) Pain in right hip; Translations: [Pain in right hip] Onset: 01-02-2025 Episodic Other non-traumatic joint disorders (2 sources) Pain in right wrist; Translations: [Right wrist pain] Onset: 07-29-2024 Episodic Other screening for suspected conditions (not mental disorders or infectious disease) (8 sources) Magnetic resonance imaging of brain abnormal; Translations: [Other abnormal findings on diagnostic imaging of central nervous system] Onset: 11-14-2024 11-14-2024 Episodic Other upper respiratory infections (19 sources) Sore throat symptom; Translations: [Acute sinusitis] Onset: 07-18-2024 12-08-2022 Episodic Phlebitis; thrombophlebitis and thromboembolism (7 sources) H/O: Deep vein thrombosis; Translations: [Personal history of other venous thrombosis and embolism] Onset: 05-31-2024 11-14-2023 Episodic Pulmonary heart disease (2 sources) H/O: pulmonary embolus; Translations: [Personal history of pulmonary embolism] Onset: 01-02-2025 01-02-2025 Episodic Residual codes; unclassified (1 source) Pallor; Translations: [Livedo reticularis] Onset: 01-02-2025 Episodic Residual codes; unclassified (1 source) Unspecified symptoms and signs involving general sensations and perceptions; Translations: [Sensory deficit, right] Onset: 12-18-2024 Episodic Unclassified (2 sources) Central sensitization 02-17-2025 Results Test Name Value Interpretation Reference Range Facility [facility] 04-14-2025 [facility] Telephone (NHATWN) CODY SANTANA ([id number]) 1985 F Date Time Provider Department 04/14/25 [facility] During your visit today, we recorded the following information about you: Unruly Gonzalez RN 04/14/2025 10:54 AM Signed Cody Santana (Dimas: [id number]) PA Need Help? Call us at Status Sent to Plan today Drug Nurtec 75MG dispersible tablets Form [place] Medicaid [employer] Electronic PA Form (2016 NCPDP) Unruly Gonzalez RN 04/15/2025 9:54 AM Signed Cody Santana (Dimas: [id number]) PA Need Help? Call us at Outcome Approved on April 14 by [place] [employer] 2017 Your PA request for [id number] was approved for 180 days. The PA# assigned is [id number]. Approved medication: NURTEC Please note that additional plan limitations may still apply such as refill too soon, quantity limits exceeded, brand or generic preferred, etc. Effective Date: 04/25/2025 Authorization Expiration Date: 10/21/2025 Drug Nurtec 75MG dispersible tablets Form [place] Medicaid [employer] Electronic [place] Form (2016 [facility]) Allergies As of Date: 04/14/2025 Noted Allergy Reaction KEFLEX (CEPHALEXIN) 09/14/2023 14 - Other: See Comments Comments: Sierra, weak PERCOCET (OXYCODONE-ACETAMINOPHE N)09/14/2023 14 - Other: See Comments Comments: Nose itch Date Reviewed: 03/04/2025 Reviewed by: Gabrielle Courtney LPN - Fully Assessed Reason for Visit: Medication Authorization [1699] Prescriptions as of 04/15/2025 - gabapentin (NEURONTIN) 100 mg capsule TAKE 1 CAPSULE BY MOUTH ONCE DAILY AT BEDTIME FOR 30 DAYS - predniSONE (DELTASONE) 10 mg tablet Take 4 tabs daily for 3 days, then 2 tabs daily for 3 days, then 1 tab daily for 3 days with food. - erenumab-aooe (AIMOVIG AUTOINJECTOR) 70 mg/mL auto-injector [...] (for anxiety). Problem List As Of Date 04/14/2025 Noted Resolved Gastroesophageal reflux disease without esophag*12/08/2022 Headache, unspecified [R51.9] 01/02/2025 detention current use of anticoagulant therapy *01/02/2025 Migraine headache [G43.909] 12/08/2022 Paresthesia [R20.2] 02/11/2024 Seasonal allergic rhinitis [J30.2] 01/02/2025 Encounter Status:Closed by UNRULY GONZALEZ on 04/14/25 [facility] Panel InformationOrdered By: Torres Richards on 04-09-2025 Influenza Types A,B Rapid (Clinic) Negative [facility] POC SARS CoV-2 Antigen Negative [facility] Urgent Care Visit Reporton 1 Urgent Care Visit Report [facility] [address] , [address] [place] [address] OFFICE VISIT Date of Service: 04/09/25 MR#: [id number] Acct: [id number] Name: CODY SANTANA Rep #: [id number] : 1985 Provider: ALONZO Escoto Age/Sex: 39/F Location: [facility] Status: Signed Intake Vital Signs 04/02/25 17:59 04/09/25 17:46 Height 5 ft 3 in BP 130/78 H Blood Pressure Location Lt brachial Position Sitting Respiration 16 Pulse 85 Pulse Source NIBP Temp 98.2 F Temp Source Oral Pulse Oximetry (%) 96 Oxygen Delivery Method room air Intake Visit Reasons: headache, sore throat, body aches Chief Complaint: nausea, ST, cough, [place], congestion, diarrhea Professor Of Practice Required: No Is patient in pain?: No Allergies acetaminophen (From [place]) Allergy (Verified 04/09/25 17:47) Itching hydrocodone (From [place]) Allergy (Verified 04/09/25 17:47) Itching oxycodone (From Percocet) Adverse Reaction (Intermediate, Verified 04/09/25 17:47) Itching cephalexin monohydrate (From Keflex) Adverse Reaction (Verified 04/09/25 17:47) WEAKNESS, MUSCLE ACHES Is last menstrual period known: No Post menopausal: No Patient : No Have you fallen in the past year?: No Nurse's Note: nausea, ST, cough, [place], congestion, diarrhea x 3 days. denies fever. [facility] Medical History Anemia Lumbar pain with [...] does not use HPI HPI Chief Complaint: nausea, ST, cough, [place], congestion, diarrhea Details: CODY SANTANA, is a 39 F who presents to the office today for initial evaluation in the [facility] for approximately 3 day history of persistent nausea, ST, cough, [place], congestion, diarrhea; no c/o fever, chills, myalgias, fatigue, or nausea. Patient notes no complaints of chest pain or shortness of breath or dyspnea on exertion. Daughter w/ similar URI complaints. No [id number] medications have been taken to assist. No other associated symptoms and no other alleviating/aggravating factors. ROS Const Constitutional: No other (As above) Exam Const General: cooperative, healthy appearing and no acute distress Orientation: alert, awake HENOH Head: normal to inspection Ears: hearing grossly normal bilaterally, external ears normal, TM's normal bilaterally and EAC's normal Nose: external nose normal, nares normal, septum normal and clear nasal discharge Face and sinus: normal facial exam, sinuses nontender and face symmetric Mouth: oral mucosae normal, lip normal, tongue normal and oropharynx normal Throat: posterior oropharynx normal, tonsils normal, uvula midline and no postnasal drainage Eyes General: appearance normal, both eyes and all related structures Neck Neck: normal visual inspection, full ROM, no lymphadenopathy, no meningeal signs and supple Neck mass: No Thyroid: thyroid normal Lymphatic: no lymphadenopathy noted Chest Chest palpation inspection: normal inspection of the chest Resp Effort Inspection: normal respiratory effort, able to speak in complete sentences and no unsolicited cough during today's exam Auscultation: Bilateral: Clear to Auscultation Cardio Palpation: normal PMI Rate: tachycardic Rhythm: regular rhythm Heart Sounds: S1 normal, S2 normal Pulses: radial pulses present Skin General: no rashes or lesions noted Neuro General: patient alert, patient awake Cognition: normal cognition Speech: speech normal Psych Appearance: grossly normal Mental Status: mental status grossly normal Mood: congruent mood Affect: normal affect Speech and Movement: speech and movement normal Attitude: cooperative Diagnoses Contact with or exposure to other viral diseases Z20.828 URI (upper respiratory infection) J06.9 Assessment and Plan Assessment and Plan (1) Contact with or exposure to other viral diseases: Status: Acute (2) URI (upper respiratory infection) (more content not included)... Normal [facility] Ankle min 3 Viewson 04-02-20 25 Ankle min 3 Views [facility] [address] [place], [place] [id number] Ankle min 3 Views MR#: [id number] Acct: [id number] Name: CODY SANTANA Rep #: [id number] : 1985 F 39 From: Antwon Spence MD PCP: Colton Kunz PA-C Status: REG ER Study: Ankle min 3 Views Date of Exam: 04/02/25 Exam# [id number] Ordering Dr: ShanitaEd P. PROCEDURE: ANKLE MIN 3 VIEWS 04/02/2025 REASON FOR EXAM: FALL TECHNIQUE: Procedure Code: RADANK Modality: DX Procedure: ANKLE MIN 3 VIEWS Laterality: FINDINGS: No evidence of acute fracture or dislocation. No ankle joint effusion. The soft tissues are unremarkable. RAD/Ankle min 3 Views IMPRESSION: No acute osseous abnormalities. Reading Location: [facility] CC: THERON Kunz; ED PHYSICIAN PROVIDER Chief Of Surgery: Signed Normal [facility] Ankle min 3 Views [facility] [address] [place] [address] Ankle min 3 Views MR#: [id number] Acct: [id number] Name: CODY SANTANA Rep #: [id number] : 1985 F 39 From: Antwon Spence MD PCP: Colton Kunz PA-C Status: REG ER Study: Ankle min 3 Views Date of Exam: 04/02/25 Exam# [id number] Ordering Dr: ShanitaEd P. PROCEDURE: ANKLE MIN 3 VIEWS 04/02/2025 REASON FOR EXAM: FALL, PAIN TECHNIQUE: Procedure Code: RADANK Modality: DX Procedure: ANKLE MIN 3 VIEWS Laterality: FINDINGS: No evidence acute fracture or dislocation. No ankle joint effusion. The soft tissues are unremarkable. RAD/Ankle min 3 Views IMPRESSION: No acute osseous abnormalities. Reading Location: [facility] CC: THERON Kunz; ED PHYSICIAN PROVIDER Chief Of Surgery: Signed Normal [facility] Emergency Department Summary on 04-02-2025 Emergency Department Summary [facility] Medical Records Department [address] [place] [address] Emergency Department Summary 04/02/25 MR#: [id number] Acct: [id number] Name: CODY SANTANA Rep #: [id number] : 1985 39 From: Kirby Salcedo DO PCP: Colton Kunz PA-C Status:DEP ER Location: ED HPI HPI - Fall History of Present Illness Chief Complaint: Fall Informant: patient and family Narrative Narrative: 39-year-old female presenting to the emergency room with bilateral ankle pain. Patient states yesterday she is going on the stairs outside of her house she thought she was at the bottom chamber stopped ago and she fell resulting in inversion injury to the left ankle and also causing injury to the right ankle. She states that she tried to catch herself by grabbing a nicki where eventually fell down and has a bruise in the left flank. She went to work today had pain with standing. She notes that the left ankle is worse than the right. [facility] Medical History Anemia Lumbar pain with radiation down right leg Dental caries Brain TIA Dysarthria Chronic migraine Anxiety and depression History of venous thromboembolism Obesity Tobacco use History of nephrolithiasis Chronic neck and back pain Factor 5 Leiden mutation, heterozygous Home Medications ???Medication ???Instructions ???Recorded ???Last Taken ???Type medroxyprogesterone 150 mg/mL 150 mg IM .[id number] control 01/30/15 08/24/24 11:00 History intramuscular syringe [...] mg capsule 100 mg PO QHS 03/25/25 Unknown His tory permethrin 5 % topical cream 1 applic topical Q14D 2 doses #60 03/25/25 Unknown Rx grams Allergy/AdvReac Type Severity Reaction Status Date / Time acetaminophen (From [place]) Allergy Itching Verified 04/02/25 17:59 hydrocodone (From [place]) Allergy Itching Verified 04/02/25 17:59 oxycodone (From Percocet) AdvReac Intermediate Itching Verified 04/02/25 17:59 cephalexin monohydrate (From AdvReac WEAKNESS, Verified 04/02/25 17:59 Keflex) MUSCLE ACHES Family History Mother Heart [...] ED Constitutional Constitutional ED: Denies chills or weight loss Eyes Eyes: Denies change in vision or diplopia ENT ENT ED: Denies ear pain, rhinorrhea or sore throat Cardiovascular Cardiovascular: Denies chest pain, orthopnea, palpitations or racing heartbeat Respiratory/Chest Respiratory/Chest: Denies cough, dyspnea or orthopnea Gastrointestinal Gastrointestinal: Denies abdominal pain, diarrhea, nausea or vomiting Genitourinary Ge (more content not included)... Normal [facility] Urgent Care Visit Reporton 1 Urgent Care Visit Report [facility] [address], [address] [place] [address] OFFICE VISIT Date of Service: 03/25/25 MR#: [id number] Acct: [id number] Name: CODY SANTANA Rep #: [id number] : 1985 Provider: ALONZO Escoto Age/Sex: 39/F Location: [facility] Status: Signed Intake Vital Signs 01/30/25 09:29 03/25/25 15:47 Height 5 ft 3 in BP 130/70 H Blood Pressure Location Lt brachial Position Sitting Pulse 89 Pulse Source Monitor Temp 98.4 F Temp Source Oral Pulse Oximetry (%) 98 Oxygen Delivery Method room air Intake Visit Reasons: Rash Chief Complaint: Rash Accompanied by: Self Allergies acetaminophen (From [place]) Allergy (Verified 03/25/25 15:42) Itching hydrocodone (From [place]) Allergy (Verified 03/25/25 15:42) Itching oxycodone (From Percocet) Adverse Reaction (Intermediate, Verified 03/25/25 15:42) Itching cephalexin monohydrate (From Keflex) Adverse Reaction (Verified 03/25/25 15:42) WEAKNESS, MUSCLE ACHES Medications ???Medication ???Instructions ???Recorded ???Confirmed ???Type medroxyprogesterone 150 mg/mL 150 mg IM .[id number] control 01/30/15 03/25/25 History intramuscular syringe citalopram [...] 1 week ago. Tried Benadryl, no relief. [facility] Medical History Anemia Lumbar pain with [...] torso, BUE of unknown etiology. She notes [id number]-[id number] oral Benadryl has been of minimal to [...] acute distress Nutritional Appearance: average body habitus [place] (more content not included)... Normal [facility] CNOVon 03-04-2025 OV Office Visit (WOUCA) CODY SANTANA ([id number]) 1985 F Date Time Provider Department 03/04/25 9:30 AM MICHELLE MARVIN During your visit today, we recorded the following information about you: Temperature Pulse Respiration Blood pressure 98.8 degrees 84/minute 20/minute 89/65 Weight 90.6 kg Michelle Marvin, MARLEEN.ROLLING MACHINE OPERATOR AUTOMATIC 03/04/2025 10:29 AM Signed URGENT CARE JESÚS [...] to care plan. and Recording using ambient [employer] software for draft documentation of the visit was discussed with the patient/authorized traveling sales representative; all questions welcomed and answered. Patient/authorized traveling sales representative agreed to proceed History and [...] AREA DIRE (more content not included)... Normal [facility] CNOVon 02-17-2025 CNOV Office Visit (RHEUMN ) CODY SANTANA ([id number]) 1985 F Date Time Provider Department 02/17/25 1:00 PM BRIAN SHELDON RHEUMN During your visit today, we recorded the following information about you: Temperature Pulse Blood pressure Weight 97.6 degrees 85/minute 110/64 89.5 kg Brian Sheldon MD 02/17/2025 3:52 PM Signed Rheumatology FOLLOW UP Date of Service: 02/17/2025 Patient: Cody L Esther Medical Record: [id number] Primary Care Physician: Colton Kunz PA-C Last [...] improves with movement. 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 Pain Evaluation [...] Fatigue T-Sco (more content not included)... Normal [facility] MRI PELVIS ORTHO GEN WO IVCO Non 01-31-2025 MRI PELVIS ORTHO GEN WO IVCON * * *Final Report* * * DATE OF EXAM: Jan 31 2025 12:55PM WRM [id number] - MRI PELVIS ORTHO GEN PATRIC SCHAEFERON / PROCEDURE REASON: multiple diagnoses * * [...] IMPRESSION: NO MRI FINDINGS OF INFLAMMATORY ARTHROPATHY. Chief Of Surgery: LUDIVINA Transcribe Date/Time: Feb 01 2025 9:37A Dictated by : JADE MELENDEZ MD This examination was interpreted and the report reviewed and electronically signed by: JADE MELENDEZ MD on Feb 01 2025 9:40AM EST [id number] Normal [facility] Emergency Department Summary on 01-30-2025 Emergency Department Summary [facility] Medical Records Department [address] [place] [address] Emergency Department Summary 01/30/25 MR#: [id number] Acct: [id number] Name: CODY SANTANA Rep #: [id number] : 1985 39 From: Luis Wilkerson MD [...] has been following with doctors at the [facility], and she states she has an [...] something to get her through work tonight. [facility] Medical History Anemia Lumbar pain with radiation down right leg Dental caries Brain TIA Dysarthria Chronic migraine Anxiety and depression History of venous thromboembolism Obesity Tobacco use History of nephrolithiasis Chronic neck and back pain Factor 5 Leiden mutation, heterozygous Home Medications ???Medication ???Instructions ???Recorded ???Last Taken ???Type medroxyprogesterone 150 mg/mL 150 mg IM .[id number] control 01/30/15 08/24/24 11:00 History intramuscular syringe [...] Reaction Status Date / Time acetaminophen (From [place]) Allergy Itching Verified 01/30/25 09:29 hydrocodone (From [place]) Allergy Itching Verified 01/30/25 09:29 oxycodone (From [...] fever(s) E (more content not included)... Normal [facility] HIP, UNI W/ Pelvis 2-3 Views on 01-30-2025 HIP, UNI W/ Pelvis 2-3 Views [facility] [address] [place] [address] HIP, UNI W/ Pelvis 2-3 Views MR#: [id number] Acct: [id number] Name: CODY SANTANA Rep #: [id number] : 1985 F 39 From: Tashi Noel MD PCP: Colton Kunz PA-C Status: REG ER Study: HIP, UNI W/ Pelvis 2-3 Views Date of Exam: Exam# [id number] Ordering Dr: Luis Wilkerson MD PROCEDURE: HIP, UNI W/ PELVIS 2-3 VIEWS 01/30/2025 REASON FOR EXAM: INJURY TECHNIQUE: HIP, UNI W/ PELVIS 2-3 VIEWS Laterality: Right COMPARISON: None FINDINGS: Bones: No fracture Joints: Normal alignment. Soft tissues: Soft tissues are unremarkable. RAD/HIP, UNI W/ Pelvis 2-3 Views IMPRESSION: No acute abnormality Reading Location: [id number] CC: THERON Kunz; Dr. Luis Wilkerson MD Chief Of Surgery: Signed Normal [facility] Emergency Department Summary on 01-23-2025 Emergency Department Summary [facility] Medical Records Department [address] [place] [address] Emergency Department Summary 01/23/25 MR#: [id number] Acct: [id number] Name: CODY SANTANA Rep #: [id number] : 1985 39 From: Ck Matias DO [...] Negative for Parasthesia or Loss of Funtion [facility] Medical History Anemia Lumbar pain with radiation down right leg Dental caries Brain TIA Dysarthria Chronic migraine Anxiety and depression History of venous thromboembolism Obesity Tobacco use History of nephrolithiasis Chronic neck and back pain Factor 5 Leiden mutation, heterozygous Home Medications ???Medication ???Instructions ???Recorded ???Last Taken ???Type medroxyprogesterone 150 mg/mL 150 mg IM .[id number] control 01/30/15 08/24/24 11:00 History intramuscular syringe [...] mg tablet 40 mg PO Q12H reflux 03/15/23/08/06 23:00 History 40 mg lamotrigine 200 mg [...] Reaction Status Date / Time acetaminophen (From [place]) Allergy Itching Verified 01/23/25 03:15 hydrocodone (From [place]) Allergy Itching Verified 01/23/25 03:15 oxycodone (From [...] Respiratory/Chest Respirator (more content not included)... Normal [facility] CBC W Auto Differential pane l (Bld)on 01-15-2025 Basophils (Bld) [#/Vol] 0.06 10*3/uL Normal <0.11 [facility] Comment on above: Order Comment: Speci men Type: BLOOD SPECIMENOrdering Facility: [facility] Address: [address] [place] [address] Performed By: #### 5 7021-8 ####[facility] [id number] [place] [address] [place] Basophils/100 WBC (Bld) 0.6 % Normal [facility] Comment on above: Order Comment: Speci men Type: BLOOD SPECIMENOrdering Facility: [facility] Address: [address] [place] [address] Performed By: #### 5 7021-8 ####[facility] [id number] [place] [address] [place] Differential cell count method Nom (Bld) Auto Normal [facility] Comment on above: Order Comment: Speci men Type: BLOOD SPECIMENOrdering Facility: [facility] Address: [address] [place] [address] Performed By: #### 5 7021-8 ####[facility] [id number] [place] [address] [place] Eosinophils (Bld) [#/Vol] 0.09 10*3/uL Normal <0.46 [facility] Comment on above: Order Comment: Speci men Type: BLOOD SPECIMENOrdering Facility: [facility] Address: [address] [place] [address] Performed By: #### 5 7021-8 ####[facility] MILLTOWNCLIA [id number] [place] [address] [place] Eosinophils/100 WBC (Bld) 0.9 % Normal [facility] Comment on above: Order Comment: Speci men Type: BLOOD SPECIMENOrdering Facility: [facility] Address: [address] [place] [address] Performed By: #### 5 7021-8 ####[facility] MILLTOWNCLIA [id number] [place] [address] [place] Erythrocyte distribution width (RBC) [Ratio] 14.0 % Normal 11.5-15.0 [facility] Comment on above: Order Comment: Speci men Type: BLOOD SPECIMENOrdering Facility: [facility] Address: [address] [place] [address] Performed By: #### 5 7021-8 ####[facility] HOSPITALWKIMBERLIA [id number] [place] [address] [place] Hematocrit (Bld) [Volume fraction] 36.6 % Normal 36.0-46.0 [facility] Comment on above: Order Comment: Speci men Type: BLOOD SPECIMENOrdering Facility: [facility] Address: [address] [place] [address] Performed By: #### 5 7021-8 ####[facility] HOSPITALWKIMBERLIA [id number] [place] [address] [place] Hemoglobin (Bld) [Mass/Vol] 12.3 g/dL Normal 11.5-15.5 [facility] Comment on above: Order Comment: Speci men Type: BLOOD SPECIMENOrdering Facility: [facility] Address: [address] [place] [address] Performed By: #### 5 7021-8 ####[facility] HOSPITALNCLIA [id number] [place] [address] [place] Immature granulocytes (Bld) [#/Vol] 0.03 10*3/uL Normal <0.10 [facility] Comment on above: Order Comment: Speci men Type: BLOOD SPECIMENOrdering Facility: [facility] Address: [address] [place] [address] Performed By: #### 5 7021-8 ####[facility] HOSPITALLIA [id number] [place] [address] [place] Immature granulocytes/100 WBC (Bld) 0.3 % Normal [facility] Comment on above: Order Comment: Speci men Type: BLOOD SPECIMENOrdering Facility: [facility] Address: [address] [place] [address] Performed By: #### 5 7021-8 ####[facility] [id number] [place] [address] [place] Lymphocytes (Bld) [#/Vol] 3.57 10*3/uL Normal 1.00-4.00 [facility] Comment on above: Order Comment: Speci men Type: BLOOD SPECIMENOrdering Facility: [facility] Address: [address] [place] [address] Performed By: #### 5 7021-8 ####[facility] [id number] [place] [address] [place] Lymphocytes/100 WBC (Bld) 34.3 % Normal [facility] Comment on above: Order Comment: Speci men Type: BLOOD SPECIMENOrdering Facility: [facility] Address: [address] [place] [address] Performed By: #### 5 7021-8 ####[facility] [id number] [place] [address] [place] MCH (RBC) [Entitic mass] 31.4 pg Normal 26.0-34.0 [facility] Comment on above: Order Comment: Speci men Type: BLOOD SPECIMENOrdering Facility: [facility] Address: [address] [place] [address] Performed By: #### 5 7021-8 ####[facility] ANGEAUGUSTINE [id number] [place] [address] [place] MCHC (RBC) [Mass/Vol] 33.6 g/dL Normal 30.5-36.0 [facility] Comment on above: Order Comment: Speci men Type: BLOOD SPECIMENOrdering Facility: [facility] Address: [address] [place] [address] Performed By: #### 5 7021-8 ####[facility]ITALNCJORD[facility] [id number] [place] [address] [place] MCV (RBC) [Entitic vol] 93.4 fL Normal 80.0-100.0 [facility] Comment on above: Order Comment: Speci men Type: BLOOD SPECIMENOrdering Facility: [facility] Address: [address] [place] [address] Performed By: #### 5 7021-8 ####[facility] HOSPITALA [id number] [place] [address] [place] Monocytes (Bld) [#/Vol] 0.69 10*3/uL Normal <0.87 [facility] Comment on above: Order Comment: Speci men Type: BLOOD SPECIMENOrdering Facility: [facility] Address: [address] [place] [address] Performed By: #### 5 7021-8 ####[facility] HOSPITALNCLI [id number] [place] [address] [place] Monocytes/100 WBC (Bld) 6.6 % Normal [facility] Comment on above: Order Comment: Speci men Type: BLOOD SPECIMENOrdering Facility: [facility] Address: [address] [place] [address] Performed By: #### 5 7021-8 ####[facility] MILLWNCLIA [id number] [place] [address] [place] Neutrophils (Bld) [#/Vol] 5.97 10*3/uL Normal 1.45-7.50 [facility] Comment on above: Order Comment: Speci men Type: BLOOD SPECIMENOrdering Facility: [facility] Address: [address] [place] [address] Performed By: #### 5 7021-8 ####[facility] HOSPITALWCOLIA [id number] [place] [address] [place] Neutrophils/100 WBC (Bld) 57.3 % Normal [facility] Comment on above: Order Comment: Speci men Type: BLOOD SPECIMENOrdering Facility: [facility] Address: [address] [place] [address] Performed By: #### 5 7021-8 ####[facility]OSPITALLIA [id number] [place] [address] [place] Nucleated RBC (Bld) [#/Vol] 10*3/uL Normal <0.01 [facility] Comment on above: Order Comment: Speci men Type: BLOOD SPECIMENOrdering Facility: [facility] Address: [address] [place] [address] Performed By: #### 5 7021-8 ####[facility]OSPITALLIA [id number] [place] [address] [place] Nucleated RBC/100 WBC (Bld) [Ratio] 0.0 /100 WBC Normal [facility] Comment on above: Order Comment: Speci men Type: BLOOD SPECIMENOrdering Facility: [facility] Address: [address] [place] [address] Performed By: #### 5 7021-8 ####[facility]OSPITALNCLIA [id number] [place] [address] [place] Platelet mean volume (Bld) [Entitic vol] 9.7 fL Normal 9.0-12.7 [facility] Comment on above: Order Comment: Speci men Type: BLOOD SPECIMENOrdering Facility: [facility] Address: [address] [place] [address] Performed By: #### 5 7021-8 ####[facility]OSPITALNCLIA [id number] [place] [address] [place] Platelets (Bld) [#/Vol] 191 10*3/uL Normal 150-400 [facility] Comment on above: Order Comment: Speci men Type: BLOOD SPECIMENOrdering Facility: [facility] Address: [address] [place] [address] Performed By: #### 5 7021-8 ####[facility]ITALNCJORDAN [facility]LEY [facility] [id number] [place] [address] [place] RBC (Bld) [#/Vol] 3.92 10*6/uL Normal 3.90-5.20 [facility] Comment on above: Order Comment: Speci men Type: BLOOD SPECIMENOrdering Facility: [facility] Address: [address] [place] [address] Performed By: #### 5 7021-8 ####[facility] HOSPITALNCA [id number] [place] [address] [place] WBC (Bld) [#/Vol] 10.41 10*3/uL Normal 3.70-11.00 [facility] Comment on above: Order Comment: Speci men Type: BLOOD SPECIMENOrdering Facility: [facility] Address: [address] [place] [address] Performed By: #### 5 7021-8 ####[facility] HOSPITALNCLIA [id number] [place] [address] [place] CNOVon 01-15-2025 CNOV Office Visit (WSTR ) CODY SANTANA ([id number]) 1985 F Date Time Provider Department 01/15/25 2:00 PM PRAMOD GOMEZWSGRAYSON During your visit today, we recorded the [...] No known SLE, IBD, PsO Great grandmother Millsap Palsy SOCIAL HISTORY: Currently smoking less than 1 pack per day ETOH None Marijuana - none Single 3 kids Working at [employer] Tobacco: Tobacco Use: High Risk (01/02/2025) Patient [...] DSC) 5 (more content not included)... Normal [facility] Comprehensive metabolic 2000 panelon 01-15-2025 Albumin [Mass/Vol] 4.4 g/dL Normal 3.9-4.9 [facility] Comment on above: Order Comment: Speci men Type: BLOOD SPECIMENOrdering Facility: [facility] Address: [address] [place] [address] Performed By: #### 2 4323-8 ####[facility] HOSPITALA [id number] [place] [address] [place] ALP [Catalytic activity/Vol] 42 U/L Normal 34-123 [facility] Comment on above: Order Comment: Speci men Type: BLOOD SPECIMENOrdering Facility: [facility] Address: [address] [place] [address] Performed By: #### 2 4323-8 ####[facility]OSPITALLIA [id number] [place] [address] [place] ALT [Catalytic activity/Vol] 13 U/L Normal 7-38 [facility] Comment on above: Order Comment: Speci men Type: BLOOD SPECIMENOrdering Facility: [facility] Address: [address] [place] [address] Performed By: #### 2 4323-8 ####[facility]OSPITALLIA [id number] [place] [address] [place] Anion gap [Moles/Vol] 10 mmol/L Normal 8-15 [facility] Comment on above: Order Comment: Speci men Type: BLOOD SPECIMENOrdering Facility: [facility] Address: [address] [place] [address] Performed By: #### 2 4323-8 ####[facility] HOSPITALWNCLIA [id number] [place] [address] [place] AST [Catalytic activity/Vol] 14 U/L Normal 13-35 [facility] Comment on above: Order Comment: Speci men Type: BLOOD SPECIMENOrdering Facility: [facility] Address: [address] [place] [address] Performed By: #### 2 4323-8 ####[facility]OSPITALNCJAKEA [id number] [place] [address] [place] Bilirubin [Mass/Vol] 0.3 mg/dL Normal 0.2-1.3 [facility] Comment on above: Order Comment: Speci men Type: BLOOD SPECIMENOrdering Facility: [facility] Address: [address] [place] [address] Performed By: #### 2 4323-8 ####[facility]PITALNCLIA [id number] [place] [address] [place] Calcium [Mass/Vol] 9.1 mg/dL Normal 8.5-10.2 [facility] Comment on above: Order Comment: Speci men Type: BLOOD SPECIMENOrdering Facility: [facility] Address: [address] [place] [address] Performed By: #### 2 4323-8 ####[facility]OSPITALNCLIA [id number] [place] [address] [place] Chloride [Moles/Vol] 111 mmol/L High 98-107 [facility] Comment on above: Order Comment: Speci men Type: BLOOD SPECIMENOrdering Facility: [facility] Address: [address] [place] [address] Performed By: #### 2 4323-8 ####[facility] LORNEWNCJAKEA [id number] [place] [address] [place] CO2 [Moles/Vol] 18 mmol/L Low 22-30 [facility] Comment on above: Order Comment: Speci men Type: BLOOD SPECIMENOrdering Facility: [facility] Address: [address] [place] [address] Performed By: #### 2 4323-8 ####[facility] HOSPITALNCLI [id number] [place] [address] [place] Creatinine [Mass/Vol] 0.85 mg/dL Normal 0.58-0.96 [facility] Comment on above: Order Comment: Speci men Type: BLOOD SPECIMENOrdering Facility: [facility] Address: [address] [place] [address] Performed By: #### 2 4323-8 ####[facility] HOSPITALNCA [id number] [place] [address] [place] eGFRcr SerPlBld CKD-EPI 2020 90 mL/min/1.73m??? Normal >=60 [facility] Comment on above: Order Comment: Speci men Type: BLOOD SPECIMENOrdering Facility: [facility] Address: [address] [place] [address] Result Comment: Jasmin mated Glomerular Filtration Rate [...] actual GFR. Performed By: #### 2 4323-8 ####[facility] HOSPITALWNCLIA [id number] [place] [address] [place] Glucose [Mass/Vol] 92 mg/dL Normal 74-99 [facility] Comment on above: Order Comment: Speci men Type: BLOOD SPECIMENOrdering Facility: [facility] Address: [address] [place], [place] [id number] Result Comment: The [place] [employer] (ADA) provides guidance for cutoff [...] Standards of Medical Care in Diabetes 2016, [place] [employer]. Diabetes Care. 2016.39(Suppl 1). Performed By: #### 2 4323-8 ####[facility] MILLTOWNCLIA [id number] [place] [address] [place] Potassium [Moles/Vol] 3.9 mmol/L Normal 3.7-5.1 [facility] Comment on above: Order Comment: Speci men Type: BLOOD SPECIMENOrdering Facility: [facility] Address: [address] [place], [place] [address] Performed By: #### 2 4323-8 ####[facility] MILLTOWNCLIA [id number] [place] [address] [place] Protein [Mass/Vol] 7.3 g/dL Normal 6.3-8.0 [facility] Comment on above: Order Comment: Speci men Type: BLOOD SPECIMENOrdering Facility: [facility] Address: [address] [place], [place] [address] Performed By: #### 2 4323-8 ####[facility] HOSPITALWNCLIA [id number] [place] [address] [place] Sodium [Moles/Vol] 139 mmol/L Normal 136-144 [facility] Comment on above: Order Comment: Speci men Type: BLOOD SPECIMENOrdering Facility: [facility] Address: [address] [place] [address] Performed By: #### 2 4323-8 ####[facility] [id number] [place] [address] [place] Urea nitrogen [Mass/Vol] 13 mg/dL Normal 7-21 [facility] Comment on above: Order Comment: Speci men Type: BLOOD SPECIMENOrdering Facility: [facility] Address: [address] [place] [address] Performed By: #### 2 4323-8 ####[facility] [id number] [address] [place] CNOVon 01-11-2025 CNOV Office Visit (WOUCA) CODY SANTANA ([id number]) 1985 F Date Time Provider Department 01/11/25 2:30 PM JAY DELGADO During your visit today, we recorded the following information about you: Temperature Pulse Respiration Blood pressure 97.4 degrees 70/minute 18/minute 118/78 Weight 90.5 kg Jay Delgado APRN.ROLLING MACHINE OPERATOR AUTOMATIC 01/11/2025 3:17 PM Signed Subjective Cody Webster [...] prednisone. She will otherwise follow-up with her auctioneer tobacco - XR ANKLE GENERAL 3V AP/LAT/OBL RIGHT [...] [M25.571] Order(s):XR ANKLE GENERAL 3V AP/LAT/OBL RIGHT [[id number]] Order #: [id number] FUTURE predniSONE (DELTASONE) 50 mgTake 1 tablet [...] disease without esophag*12/08/2022 Headache, unspecified [R51.9] 01/02/2025 detention current use of anticoagulant therapy *01/02/2025 Migraine headache [G43.909] 12/08/2022 Paresthesia [R20.2] 02/11/2024 Seasonal allergic rhinitis [J30.2] 01/02/2025 Prescriptions ordered this encounter Disp Refills Start En (more content not included)... Normal [facility] XR ANKLE 3V AP/LAT/OBL RTon 01-11-2025 [...] soft tissue swelling. IMPRESSION: No acute abnormality Chief Of Surgery: [facility] Transcribe Date/Time: Jan 11 2025 3:05P Dictated by : YON HURD MD This examination was interpreted and the report reviewed and electronically signed by: YON HURD MD on Jan 11 2025 3:06PM EST [id number] Normal [facility] XR Ankle - right AP and Late ral and obliqueon 01-11-2025 IMPRESSION: No acute abnormality Chief Of Surgery: PSCB Transcribe Date/Time: Jan 11 2025 3:05P [...] tissue swelling. IMPRESSION IMPRESSION: No acute abnormality Chief Of Surgery: LUDVIINA Transcribe Date/Time: Jan 11 2025 3:05P Dictated by : YON HURD MD This examination was interpreted and the report reviewed and electronically signed by: YON HURD MD on Jan 11 2025 3:06PM [facility] Radiology Study observation (narrative) [facility] XR Ankle - right AP and Late ral and obliqueOrdered By: Ccf Provider on 01-11-2025 [facility] Donna 01-08-2025 KOLEN Telephone (JUSTEN) CODY SANTANA ([id number]) 1985 F Date Time Provider Department 01/08/25 ANTWON CALDERON During your visit today, we recorded the following information about you: Frances Sanches, RN 01/08/2025 2:12 PM Signed ----- Message [...] , it is OK to leave message [phone] (home) [phone] (cell) Payor: [place] [employer]ICA[employer] / Plan: [facility] MEDICAID / Product Type: Medicaid / Frances [...] disease without esophag*12/08/2022 Headache, unspecified [R51.9] 01/02/2025 detention current use of anticoagulant therapy *01/02/2025 Migraine headache [G43.909] 12/08/2022 Paresthesia [R20.2] 02/11/2024 Seasonal allergic rhinitis [J30.2] 01/02/2025 Encounter Status:Closed by FRANCES SANCHES on 01/08/25 Normal [facility] ALFONZO BY IFA SCREENon 01-03-20 ALFONZO PATTERN 2 Cytoplasmic fine speckled Normal [facility] Comment on above: Order Comment: Speci men Type: BLOOD SPECIMENOrdering Facility: [facility] Address: [address] [place] [address] Performed By: #### A NAIFS ####[facility] LABCLIA [id number] [place] [address] [place] ALFONZO TITER 2 1:160 Normal [facility] Comment on above: Order Comment: Speci men Type: BLOOD SPECIMENOrdering Facility: [facility] Address: [address] [place] [address] Performed By: #### A NAIFS ####[facility] LABIA [id number] [place] [address] [place] Nuclear Ab pattern (S) [Interp] Nuclear homogeneous Normal [facility] Comment on above: Order Comment: Speci men Type: BLOOD SPECIMENOrdering Facility: [facility] Address: [address] [place] [address] Performed By: #### A NAIFS ####[facility] LABIA [id number] [place] [address] [place] Nuclear Ab Ql (S) Positive Abnormal Negative [facility] Comment on above: Order Comment: Speci men Type: BLOOD SPECIMENOrdering Facility: [facility] Address: [address] [place] [address] Result Comment: Anti -nuclear antibody test is used as an aid in diagnosis of systemic autoimmune diseases. Where positive and clinically warranted, follow-up using disease-specific testing is recommended. Low positive titers are not uncommon with advanced age, certain chronic infections, and malignancies among others. Test methodology: Indirect fluorescence immunoassay (IFA) using HEp-2 cells. 1:160 Performed By: #### A NAIFS ####[facility] LABIA [id number] [place] [address] [place] C3 SerPl-mCncon 01-02-2025 Complement C3 [Mass/Vol] 124 mg/dL Normal 86-166 [facility] Comment on above: Order Comment: Speci men Type: BLOOD SPECIMENOrdering Facility: [facility] Address: [address] [place] [address] Performed By: #### 1 988-5, 4485-9, 4498-2, 52425-9 ####[facility] LABIA [id number] [place] [address] [place] C4 SerPl-mCncon 01-02-2025 Complement C4 [Mass/Vol] 16 mg/dL Normal 13-46 [facility] Comment on above: Order Comment: Speci men Type: BLOOD SPECIMENOrdering Facility: [facility] Address: [address] [place] [address] Performed By: #### 1 988-5, 4485-9, 4498-2, 41218-2 ####[facility] LABCLIA [id number] GEORGE ROBBINSDESK [address] OF [facility] CNOVon 01-02-2025 CNOV Office Visit (RHWSTR ) CODY SANTANA ([id number]) 1985 F Date Time Provider Department 01/02/25 2:00 PM PRAMOD GOMEZ RHWSTR During your visit today, we recorded the following information about you: Pulse Respiration Blood pressure Weight 79/minute 17/minute 110/64 90.1 kg Pramod Gomez PA-C 01/02/2025 4:28 PM Signed Rheumatology CONSULTATION Date of Service: 01/02/2025 Patient: Cody L Esther Medical Record: [id number] Primary Care Physician: Celina Kunz Last Rheumatology visit: None at [facility] Referring Provider: Local orthopedist, no referral on file, patient unsure provider Recording using [employer] software for draft documentation of the visit was discussed with the patient/authorized traveling sales representative; all questions welcomed and answered. Patient/authorized traveling sales representative agreed to proceed History of [...] denies alcoh (more content not included)... Normal [facility] CRP SerPl-ncon 01-02-2025 CRP [Mass/Vol] mg/L Normal <0.9 [facility] Comment on above: Order Comment: Zachariah pena Type: BLOOD SPECIMENOrdering Facility: [facility] Address: [address] [place] [address] Performed By: #### 1 988-5, 4485-9, 4498-2, 40828-3 ####[facility] LABCLIA [id number] [address] [place] Centromere Ab IF Ql (S)on Centromere Ab Qn (S) <0.2 Normal <1.0 [facility] Comment on above: Order Comment: Zachariah pena Type: BLOOD SPECIMENOrdering Facility: [facility] Address: [address] [place] [address] Result Comment: Anti -centromere antibody is used as in aid in diagnosis of systemic sclerosis. Clinical correlation is required. Test Methodology: Multiplex flow immunoassay. Performed By: #### 5 1775-5, 03581-5, 87686-4, 22361-0, 83392-5, 97806-7, 89535-3, 59652-5 ####[facility] LABCLIA [id number] [address] [address] [place] CENTROMERE AB QUAL Negative Normal Negative [facility] Comment on above: Order Comment: Speci men Type: BLOOD SPECIMENOrdering Facility: [facility] Address: [address] [place] [address] Performed By: #### 5 1775-5, 34503-1, 21436-8, 25565-3, 56024-7, 15177-8, 26022-7, 76760-5 ####[facility] LABCLIA [id number] [place] [address] [place] Chromatin Ab Qnon 01-02-2025 CHROMATIN AB QUAL Negative Normal Negative [facility] Comment on above: Order Comment: Speci men Type: BLOOD SPECIMENOrdering Facility: [facility] Address: [address] [place] [address] Performed By: #### 5 1775-5, 98695-1, 82003-0, 19974-8, 65799-2, 06562-2, 58227-4, 85264-2 ####[facility] LABCLIA [id number] [place] [address] [place] Chromatin Ab SerPl-aCncon Chromatin Ab Qn <0.2 Normal <1.0 [facility] Comment on above: Order Comment: Speci men Type: BLOOD SPECIMENOrdering Facility: [facility] Address: [address] [place] [address] Result Comment: Test Methodology: Multiplex flow immunoassay. Performed By: #### 5 1775-5, 70837-5, 89598-4, 54388-4, 90201-6, 73424-8, 01172-8, 58328-5 ####[facility] LABCLIA [id number] [place] [id number] [place] Cyclic citrullinated peptide IgG Qnon 01-02-2025 CCP ANTIBODY IGG QUALITATIVE Negative Normal Negative [facility] Comment on above: Order Comment: Speci men Type: BLOOD SPECIMENOrdering Facility: [facility] Address: [address] [place] [address] Performed By: #### 3 3935-8 ####[facility] LABIA [id number] [address] [place] DNA double strand Ab IA Qn ( S)on 01-02-2025 DNA ANTIBODY 32 IU/mL Normal <=200 [facility] Comment on above: Order Comment: Speci men Type: BLOOD SPECIMENOrdering Facility: [facility] Address: [address] [place] [address] Result Comment: Nega tive: <200 IU/mL Equivocal: 201-300 IU/mL Moderate Positive: 301-800 IU/mL Strong Positive: >801 IU/mL Performed By: #### 3 2677-7 ####[facility] LABCLIA [id number] [address] [place] DNA ANTIBODY QUALITATIVE INTERPRETATION Negative Normal Negative [facility] Comment on above: Order Comment: Speci men Type: BLOOD SPECIMENOrdering Facility: [facility] Address: [address] [place] [address] Performed By: #### 3 2677-7 ####[facility] LABIA [id number] [place] [address] [place] KARYN Jo1 Ab Ser-aCncon 2024 Linette-1 extractable nuclear Ab Qn (S) <0.2 Normal <1.0 [facility] Comment on above: Order Comment: Speci men Type: BLOOD SPECIMENOrdering Facility: [facility] Address: [address] [place] [address] Performed By: #### 5 1775-5, 19955-7, 29114-3, 53897-5, 06770-3, 77249-5, 96484-2, 22273-3 ####[facility] LABIA [id number] [place] [address] [place] KARYN SENIOR GRAPHIC DESIGNER Ab Ser-aCncon 2024 Ribonucleoprotein extractable nuclear Ab Qn (S) <0.2 Normal <1.0 [facility] Comment on above: Order Comment: Speci men Type: BLOOD SPECIMENOrdering Facility: [facility] Address: [address] [place] [address] Performed By: #### 5 1775-5, 88570-5, 17598-7, 41149-1, 74821-2, 20488-3, 45739-9, 31828-9 ####[facility] LABIA [id number] [place] [address] [place] KARYN SM IgG Ser-aCncon 2024 Roach extractable nuclear IgG Qn (S) <0.2 Normal <1.0 [facility] Comment on above: Order Comment: Speci men Type: BLOOD SPECIMENOrdering Facility: [facility] Address: [address] [place] [address] Performed By: #### 5 1775-5, 38494-4, 19447-0, 62870-1, 34755-1, 60473-3, 53984-0, 79116-5 ####[facility] LABIA [id number] [place] [address] [place] KARYN SS-A Ab Ser-aCncon 01-02 Sjogrens syndrome-A extractable nuclear Ab Qn (S) 1.8 AI High <1.0 [facility] Comment on above: Order Comment: Speci men Type: BLOOD SPECIMENOrdering Facility: [facility] Address: [address] [place] [address] Result Comment: Test Methodology: Multiplex flow immunoassay. Performed By: #### 5 1775-5, 95222-8, 49607-0, 56502-5, 25361-6, 10884-0, 07072-4, 11562-4 ####[facility] LABIA [id number] [place] [address] [place] KARYN SS-B Ab Ser-aCncon 01-02 Sjogrens syndrome-B extractable nuclear Ab Qn (S) <0.2 Normal <1.0 [facility] Comment on above: Order Comment: Speci men Type: BLOOD SPECIMENOrdering Facility: [facility] Address: [address] [place] [address] Result Comment: Anti -SSB (anti-La) antibody is used as an aid in diagnosis of a variety of systemic autoimmune diseases, especially for Sjogren's syndrome and systemic lupus erythematosus. Clinical correlation is required. Test Methodology: Multiplex flow immunoassay. Performed By: #### 5 1775-5, 07647-1, 25822-3, 74890-8, 74229-4, 08927-4, 44105-5, 38026-3 ####[facility] [id number] [place] [address] [place] ESR Westergren method (Bld) [Velocity]on 01-02-2025 ESR (Bld) [Velocity] 17 mm/h [facility] Interpretation and review of laboratory results Normal [facility] ESR (Bld) [Velocity] 17 mm/h Normal 0-20 [facility] Comment on above: Order Comment: Speci men Type: BLOOD SPECIMENOrdering Facility: [facility] Address: [address] [place] [address] Performed By: #### 4 537-7 ####[facility] [id number] [place] [address] [place] Linette-1 extractable nuclear Ab Qn (S)on 01-02-2025 LINETTE 1 ANTIBODY QUAL Negative Normal Negative [facility] Comment on above: Order Comment: Speci men Type: BLOOD SPECIMENOrdering Facility: [facility] Address: [address] [place] [address] Result Comment: Anti -LINETTE-1 antibody is used as an aid in diagnosis of polymyositis and dermatomyositis especially with pulmonary involvement. A negative result cannot rule out polymyositis or dermatomyositis. Clinical correlation is required. Test Methodology: Multiplex flow immunoassay. Performed By: #### 5 1775-5, 17756-0, 49634-1, 50183-6, 78514-1, 60379-0, 21049-4, 29557-0 ####[facility] LABIA [id number] [place] [address] [place] Prot/Creat Uron 01-02-2025 Protein/Creatinine (U) [Mass ratio] 0.31 mg/mg High <0.15 [facility] Comment on above: Order Comment: Speci men Type: URINE SPECIMENOrdering Facility: [facility] Address: [address] [place] [address] Result Comment: Adul t Proteinuria Categories: <0.15 mg/mg is considered normal to mildly increased 0.15 - 0.50 mg/mg is considered moderately increased >0.50 mg/mg is considered severely increased KDIGO. (2013). KDIGO 2012 Clinical Practice Guideline for the Evaluation and Management of Chronic Kidney Disease. Official Journal of the International Society of Nephrology, 3(1), 1-150. Performed By: #### 2 890-2 ####[facility] LABIA [id number] [place] [address] [place] Protein/Creatinine (U) [Mass ratio]on 01-02-2025 Creatinine (U) [Mass/Vol] 19.5 mg/dL Low 20.0-300.0 [facility] Comment on above: Order Comment: Speci men Type: URINE SPECIMENOrdering Facility: [facility] Address: [address] [place] [address] Performed By: #### 2 890-2 ####[facility] LABIA [id number] [address] [address] [place] Protein (U) [Mass/Vol] 6 mg/dL Normal 0-20 [facility] Comment on above: Order Comment: Speci men Type: URINE SPECIMENOrdering Facility: [facility] Address: [address] [place] [address] Performed By: #### 2 890-2 ####[facility] LABIA [id number] [place] [address] [place] Rheumatoid fact SerPl-aCncon 01-02-2025 Rheumatoid factor Qn [IU]/mL Normal <16 [facility] Comment on above: Order Comment: Speci men Type: BLOOD SPECIMENOrdering Facility: [facility] Address: [address] [place] [address] Performed By: #### 1 988-5, 4485-9, 4498-2, 11490-1 ####[facility] LABIA [id number] [place] [address] [place] Ribonucleoprotein extractabl e nuclear Ab Qn (S)on 01-02-2025 ANTI-SENIOR GRAPHIC DESIGNER QUAL Negative Normal Negative [facility] Comment on above: Order Comment: Speci men Type: BLOOD SPECIMENOrdering Facility: [facility] Address: [address] [place] [address] Performed By: #### 5 1775-5, 71161-8, 95328-1, 73795-1, 31244-3, 40241-7, 55404-2, 99579-6 ####[facility] LABIA [id number] [place] [address] [place] RIBOSOMAL SENIOR GRAPHIC DESIGNER QUAL Negative Normal Negative [facility] Comment on above: Order Comment: Speci men Type: BLOOD SPECIMENOrdering Facility: [facility] Address: [address] [place] [address] Result Comment: Anti -Ribosomal RNA (Ribosomal P) antibody is used as an aid in diagnosis of systemic autoimmune diseases especially systemic lupus erythematosus and mixed connective tissue disease. Cross-reactivity with Anti-roach antibody is not uncommon. Clinical correlation is required. Test Methodology: Multiplex flow immunoassay. Performed By: #### 5 1775-5, 85340-7, 10651-8, 77694-5, 00358-0, 87730-5, 42829-9, 83823-5 ####[facility] LABIA [id number] [address] [address] [place] SCL-70 extractable nuclear I gG IA Qn (S)on 01-02-2025 SCLERODERMA AB QUAL Negative Normal Negative [facility] Comment on above: Order Comment: Speci men Type: BLOOD SPECIMENOrdering Facility: [facility] Address: [address] [place] [address] Performed By: #### 5 1775-5, 26913-9, 74988-8, 37735-4, 95415-8, 09835-1, 26450-2, 15600-6 ####[facility] [id number] [address] [address] [place] SCLERODERMA IGG AB <0.2 Normal <1.0 [facility] Comment on above: Order Comment: Speci men Type: BLOOD SPECIMENOrdering Facility: [facility] Address: [address] [place] [address] Result Comment: Scl- 70/Scleroderma antibody test is used as an aid in diagnosis of systemic sclerosis especially the diffuse cutaneous form. A negative result cannot rule out systemic sclerosis. The final interpretation should consider clinical picture and other test results such as anti-centromere antibody. Test Methodology: Multiplex flow immunoassay. Performed By: #### 5 1775-5, 61837-0, 45068-9, 08686-3, 47798-5, 79347-1, 51050-7, 47747-2 ####[facility] [id number] [address] [address] [place] Sjogrens syndrome-A extracta ble nuclear Ab Qn (S)on 01-02-2025 SSA ANTIBODY QUAL Positive Abnormal Negative [facility] Comment on above: Order Comment: Speci men Type: BLOOD SPECIMENOrdering Facility: [facility] Address: [address] [place] [address] Performed By: #### 5 1775-5, 75011-2, 90245-7, 36502-8, 20386-0, 78170-2, 49008-3, 19726-7 ####[facility] LABIA [id number] [place] [address] [place] Sjogrens syndrome-B extracta ble nuclear Ab Qn (S)on 01-02-2025 SSB ANTIBODY QUAL Negative Normal Negative [facility] Comment on above: Order Comment: Speci men Type: BLOOD SPECIMENOrdering Facility: [facility] Address: [address] [place] [address] Performed By: #### 5 5-5, 48088-7, 19643-8, 96286-5, 60919-6, 77691-8, 62573-4, 04004-6 ####[facility] [id number] [place] [address] [place] Roach extractable nuclear Ig G Qn (S)on 01-02-2025 SM ANTIBODY QUAL Negative Normal Negative [facility] Comment on above: Order Comment: Speci men Type: BLOOD SPECIMENOrdering Facility: [facility] Address: [address] [place] [address] Result Comment: Anti -Sm (Roach) antibody is used as an aid in diagnosis of systemic lupus erythematosus and its presence is associated with renal disease. A negative result cannot rule out systemic lupus erythematosus. Clinical correlation is required. Test Methodology: Multiplex flow immunoassay. Performed By: #### 5 5-5, 09000-5, 91071-6, 99647-0, 24580-4, 79855-4, 10068-6, 45229-3 ####[facility] LABIA [id number] [place] [address] [place] Urinalysis complete panel (U )on 01-02-2025 Bacteria uL 960.9 uL High - 941 uL [facility] Bilirubin Ql (U) Negative Negative [facility] Clarity (Unsp spec) Clear Clear [facility] Color (U) Yellow Yellow [facility] Epithelial cells LM.HPF (Urine sed) [#/Area] None Seen /HPF [facility] Glucose Test strip (U) [Mass/Vol] Negative Negative [facility] Hemoglobin Ql (U) Negative Negative [facility] Hyaline casts (Urine sed) [#/Area] 0 /[LPF] 0 /LPF [facility] Interpretation and review of laboratory results Abnormal [facility] Ketones Ql (U) Negative Negative [facility] Leukocyte esterase Test strip Ql (U) 1+ Abnormal Negative [facility] Nitrite Ql (U) Negative Negative [facility] pH (U) 7 [pH] 5.0 - 8.0 [facility] Protein (U) [Mass/Vol] Negative Negative [facility] RBC LM.HPF (Urine sed) [#/Area] 0-2 /HPF 0-2 /HPF [facility] Specific gravity (U) [Rel density] 1.008 1.005 - 1.030 [facility] Urobilinogen Ql (U) 0.2 EU/dL 0.2-1.0 EU/dL [facility] WBC LM.HPF (Urine sed) [#/Area] 0-5 /HPF 0-5 /HPF [facility] This test was devkareemo ped and its performance characteristics determined by [facility]'s [facility] [place] ([facility]). It has not been cleared or approved by the FDA. [facility] is regulated under CLIA as qualified to perform high-complexity testing. This test is used for clinical purposes. It should not be regarded as investigational or for research. [facility] BACTERIA UL 960.9 uL High Negative [facility] Comment on above: Order Comment: Speci men Type: URINE SPECIMENOrdering Facility: [facility] Address: [address] [place] [address] Performed By: #### 2 4356-8 ####[facility] LABCLIA [id number] [place] [address] [place] Bilirubin Ql (U) Negative Normal Negative [facility] Comment on above: Order Comment: Speci men Type: URINE SPECIMENOrdering Facility: [facility] Address: [address] [place] [address] Performed By: #### 2 4356-8 ####[facility] LABCLIA [id number] [facility] [address], [facility] [place] Clarity (Unsp spec) Clear Normal Clear [facility] Comment on above: Order Comment: Speci men Type: URINE SPECIMENOrdering Facility: [facility] Address: [address] [place] [address] Performed By: #### 2 4356-8 ####[facility] LABCLIA [id number] [address], [place] [address] [place] Color (U) Yellow Normal Yellow [facility] Comment on above: Order Comment: Speci men Type: URINE SPECIMENOrdering Facility: [facility] Address: [address] [place] [address] Performed By: #### 2 4356-8 ####[facility] LABCLIA [id number] [place] [address] [place] Epithelial cells LM.HPF (Urine sed) [#/Area] None Seen Normal [facility] Comment on above: Order Comment: Speci men Type: URINE SPECIMENOrdering Facility: [facility] Address: [address] [place] [address] Performed By: #### 2 4356-8 ####[facility] LABCLIA [id number] [place] [address] [place] Glucose Test strip (U) [Mass/Vol] Negative Normal Negative [facility] Comment on above: Order Comment: Speci men Type: URINE SPECIMENOrdering Facility: [facility] Address: [address] [place], [place] [address] Performed By: #### 2 4356-8 ####[facility] LABCLIA [id number] [place] [id number] [place] Hemoglobin Ql (U) Negative Normal Negative [facility] Comment on above: Order Comment: Speci men Type: URINE SPECIMENOrdering Facility: [facility] Address: [address] [place] [address] Performed By: #### 2 4356-8 ####[facility] LABCLIA [id number] [place] [address] [place] Hyaline casts (Urine sed) [#/Area] 0 /[LPF] Normal 0 /LPF [facility] Comment on above: Order Comment: Speci men Type: URINE SPECIMENOrdering Facility: [facility] Address: [address] [place] [address] Performed By: #### 2 4356-8 ####[facility] LABCLIA [id number] [place] [address] [place] Ketones Ql (U) Negative Normal Negative [facility] Comment on above: Order Comment: Speci men Type: URINE SPECIMENOrdering Facility: [facility] Address: [address] [place] [address] Performed By: #### 2 4356-8 ####[facility] LABCLIA [id number] [place] [address] [place] Leukocyte esterase Test strip Ql (U) 1+ Abnormal Negative [facility] Comment on above: Order Comment: Speci men Type: URINE SPECIMENOrdering Facility: [facility] Address: [address] [place] [address] Performed By: #### 2 4356-8 ####[facility] LABCLIA [id number] [place] [id number] [place] Nitrite Ql (U) Negative Normal Negative [facility] Comment on above: Order Comment: Speci men Type: URINE SPECIMENOrdering Facility: [facility] Address: [address] [place] [address] Performed By: #### 2 4356-8 ####[facility] LABCLIA [id number] [place] [address] [place] pH (U) 7.0 [pH] Normal 5.0-8.0 [facility] Comment on above: Order Comment: Speci men Type: URINE SPECIMENOrdering Facility: [facility] Address: [address] [place] [address] Performed By: #### 2 4356-8 ####[facility] LABIA [id number] [place] [address] [place] Protein (U) [Mass/Vol] Negative Normal Negative Cl [facility] Comment on above: Order Comment: Speci men Type: URINE SPECIMENOrdering Facility: [facility] Address: [address] [place] [address] Performed By: #### 2 4356-8 ####[facility] LABIA [id number] [place] [address] [place] RBC LM.HPF (Urine sed) [#/Area] 0-2 /HPF Normal 0-2 /HPF [facility] Comment on above: Order Comment: Speci men Type: URINE SPECIMENOrdering Facility: [facility] Address: [address] [place] [address] Performed By: #### 2 4356-8 ####[facility] [id number] [place] [address] [place] Specific gravity (U) [Rel density] 1.008 Normal 1.005-1.030 [facility] Comment on above: Order Comment: Speci men Type: URINE SPECIMENOrdering Facility: [facility] Address: [address] [place] [address] Performed By: #### 2 4356-8 ####[facility] LABIA [id number] [place] [address] [place] Urobilinogen Ql (U) 0.2 EU/dL Normal 0.2-1.0 EU/dL [facility] Comment on above: Order Comment: Speci men Type: URINE SPECIMENOrdering Facility: [facility] Address: [address] [place] [address] Performed By: #### 2 4356-8 ####[facility] LABCLIA [id number] [place] [address] [place] WBC LM.HPF (Urine sed) [#/Area] 0-5 /HPF Normal 0-5 /HPF [facility] Comment on above: Order Comment: Speci men Type: URINE SPECIMENOrdering Facility: [facility] Address: [address] [place] [address] Performed By: #### 2 4356-8 ####[facility] LABCLIA [id number] [place] [id number] [place] XR HIP 3V [...] paresthesias .PT STATES RIGHT KNEE PAIN (accession [id number]), PT STATES HIP AND PELVIC PAIN (accession [id number]), PT STATES RIGHT HIP PAIN (accession [id number]) TECHNIQUE: XR KNEE 4V AP/PA BOTH+LAT/MALLY RT, [...] acute abnormality. No evidence for inflammatory arthritis. Chief Of Surgery: LUDIVINA Transcribe Date/Time: Jan 04 2025 1:43P Dictated by : YON HURD MD This examination was interpreted and the report reviewed and electronically signed by: YON HURD MD on Jan 04 2025 1:44PM EST [id number] Normal [facility] XR KNEE 4V AP/PA BOTH+LAT/ME R [...] paresthesias .PT STATES RIGHT KNEE PAIN (accession [id number]), PT STATES HIP AND PELVIC PAIN (accession [id number]), PT STATES RIGHT HIP PAIN (accession [id number]) TECHNIQUE: XR KNEE 4V AP/PA BOTH+LAT/MALLY RT, [...] acute abnormality. No evidence for inflammatory arthritis. Chief Of Surgery: LUDIVINA Transcribe Date/Time: Jan 04 2025 1:43P Dictated by : YON HURD MD This examination was interpreted and the report reviewed and electronically signed by: YON HURD MD on Jan 04 2025 1:44PM EST [id number] Normal [facility] XR SI JTS 2V AP PELV/FERGUSO [...] paresthesias .PT STATES RIGHT KNEE PAIN (accession [id number]), PT STATES HIP AND PELVIC PAIN (accession [id number]), PT STATES RIGHT HIP PAIN (accession [id number]) TECHNIQUE: XR KNEE 4V AP/PA BOTH+LAT/MALLY RT, [...] acute abnormality. No evidence for inflammatory arthritis. Chief Of Surgery: PSCB Transcribe Date/Time: Jan 04 2025 1:43P Dictated by : YON HURD MD This examination was interpreted and the report reviewed and electronically signed by: YON HURD MD on Jan 04 2025 1:44PM EST [id number] Normal [facility] cCP IgG SerPl-aCncon 025 Cyclic citrullinated peptide IgG Qn <15 Normal <20 [facility] Comment on above: Order Comment: Speci men Type: BLOOD SPECIMENOrdering Facility: [facility] Address: [address] [place] [address] Performed By: #### 3 3935-8 ####[facility] LABCLIA [id number] [place] [address] [place] Structural [employer] Cytology Reporton 2024 Structural [employer] Cytology Report . Pathology Reports Accession: Collected Date/Time: Received Date/Time: Pathologist: [id number] 12/26/2024 14:41 EDT 12/27/2024 18:00 EDT MD JOSÉ MIGUEL CHAVARRIA Structural [employer] Cytology Report SPECIMEN: Specimen Description: Liquid Prep w/ HPV Specimen: Cervical Screening or Diagnostic: Screening RELEVANT HISTORY: LMP: not given [id number] SPECIMEN ADEQUACY: SATISFACTORY FOR EVALUATION Endocervical/Transforma tional zone component present INTERPRETATION/RESULTS: NEGATIVE FOR INTRAEPITHELIAL LESION OR MALIGNANCY SUGGESTIONS/EDUCATIONAL NOTES: This case has been reviewed for 10% QA rescreen HIGH RISK HPV TESTING: HPV Screen Only, LA Probe Negative HPV Screen Only, LA Probe Interp Data: Molecular methodology performed on the PayTango[employer] System. The APTIMA HPV Screening Assay is [...] and evaluated with the assistance of the [employer] ThinPrep Test Imaging System. Pathology Reports Accession: Collected Date/Time: Received Date/Time: Pathologist: [id number] 12/26/2024 14:41 EDT 12/27/2024 18:00 EDT MD JOSÉ MIUGEL CHAVARRIA Verified by Pathology report verified by [facility] Screened by: WADE Electronically signed by JOSÉ MIGUEL CHAVARRIA MD Sign-Out Date: 01/01/2025 16:34 Performing Lab: [facility], [address] [place] [address] Pathology Dept Disclaimer The Pap test is a screening test for cervical cancer. As evidenced by published data, it is subject to both inherent false negative and false positive results. Your patient's results should be interpreted in context with pertinent clinical history including gynecological examination. Normal [facility] HPVSCon 01-01-2025 HPV Source Cervix Normal [facility] Comment on above: Order Comment: Order placed by AP_HPV_ORDER rule from [id number] Performed By: #### H [facility] #### [place] [address] [place] [address] HPV Screen Only, LA Probe Negative Normal Negative [facility] Comment on above: Order Comment: Order placed by AP_HPV_ORDER rule from [id number] Result Comment: Dora erazo methodology performed on the Verid System. The APTIMA HPV Screening Assay is [...] current practice guidelines. Performed By: #### H [facility] #### [address] [address] MR Cervical spine PATRIC and Ismael hart [...] vertebrae with counting from the craniocervical junction. Chief Of Surgery: LUDIVINA Transcribe Date/Time: Dec 30 2024 4:40P Dictated by : KASSIDY LUJAN MD This examination was interpreted and the report reviewed and electronically signed by: KASSIDY LUJAN MD on Dec 30 2024 4:54PM [facility] DIVISION OF RADIOLOGY * * *Final Report* [...] foraminal stenosis. DIVISION OF RADIOLOGY [facility] * * *Final Report* * * DATE OF EXAM: Dec 30 2024 3:29PM [facility] 0298 - MRI CERVICAL SPINE WO/W [...] vertebrae with counting from the craniocervical junction. Chief Of Surgery: [facility] Transcribe Date/Time: Dec 30 2024 4:40P Dictated by : KASSIDY LUJAN MD This examination was interpreted and the report reviewed and electronically signed by: KASSIDY LUJAN MD on Dec 30 2024 4:54PM EST [facility] Radiology Study observation (narrative) [facility] MR Cervical spine WO and W c ontrast IVOrdered By: Ccf Provider on 12-30-2024 [facility] MRI CERVICAL SPINE WO/W IVCO Non 12-30-2024 MRI CERVICAL SPINE WO/W IVCON * * *Final Report* * * DATE OF EXAM: Dec 30 2024 3:29PM [facility] 0298 - MRI CERVICAL SPINE WO/W [...] vertebrae with counting from the craniocervical junction. Chief Of Surgery: LUDIVINA Transcribe Date/Time: Dec 30 2024 4:40P Dictated by : KASSIDY LUJAN MD This examination was interpreted and the report reviewed and electronically signed by: KASSIDY LUJAN MD on Dec 30 2024 4:54PM EST [id number] Normal [facility] CNCOon 12-18-2024 CNCO Letter Text Normal [facility] CNOVon 12-18-2024 CNOV Office Visit (NEMN ) CODY SANTANA ([id number]) 1985 F Date Time Provider Department 12/18/24 2:30 PM NICK RACHEL During your visit today, we recorded the following information about you: Pulse Blood pressure Weight Height 108/minute 109/68 88.5 kg 1.6 m Nick Rachel MD 12/18/2024 3:32 PM [facility] NEW PATIENT EVALUATION/CONSULTATION Referral source: [place] [phone] Also followed by: Patient Care Team: Neli Tripp, ROLLING MACHINE OPERATOR AUTOMATIC as PCP - General (Family Medicine) PRINCIPAL [...] The patient consented to the use of [employer] software for draft documentation of the visit, consistent with [facility]?s Notice of Privacy Practices. Patient is currently [...] Flowsheet Row [facility] Upper Extremity Domain T Score 36 Lower Extremity Domain T Score 39 Cognitive Function Domain T Score 33 Positive Affect Well Being T Score -- Ability To Participate In Social Roles T Score 38 Satisfaction With Social Roles T Score 36 Neuro-QoL Symptoms (higher=worse symptoms) Flowsheet Row Office Visit from 12/18/2024 in [facility] Sleep Domain T Score 67 Fatigue Domain T Score 63 Anxiety Domain T Score 48 Depression Domain T Score 47 Stigma Domain T Score 60 Emotional Behavior Dyscontrol T Score -- PAST HISTORY: has a past medical history of [place] (more content not included)... Normal [facility] CNOVon 11-14-2024 CNOV Office Visit (NEADMN ) CODY SANTANA ([id number]) 1985 F Date Time Provider Department 11/14/24 10:00 AM JANET FERNANDEZ During your visit today, we recorded the following information about you: Pulse Blood pressure Weight Height 87/minute 112/67 87.1 kg 1.575 m Janet Fernandez APRN.ROLLING MACHINE OPERATOR AUTOMATIC 11/14/2024 12:02 PM Signed [facility] Neurologic [place] Follow-up Visit Follow-up note November 14, 2024 [...] B/B, tongue/cheek bite. Previous workup completed through [facility] included MRI brain, CTA head/neck, and [...] noted slurred/garbled speech. Workup was completed through [facility] at that time including CT brain, [...] records review on 10/31/24: Records received from [facility] and reviewed as below: Patient reportedly presented [...] scanned to (more content not included)... [facility] Telephone (NHMNS2) CODY SANTANA ([id number]) 1985 F Date Time Provider Department 11/01/24 ANTWON ESCOBEDO [facility] During your visit today, we recorded the [...] Encounter Status:Closed by ODALYS CHAVIRA [facility]01[facility] (NEUR[facility] CODY SANTANA ([id number]) 1985 F Date Time Provider Department 10/30/24 JANET FERNANDEZ [facility] During your visit today, we recorded the following information about you: Lela Scruggs RN 10/30/2024 12:34 PM Signed Received staff message from provider as noted below: Janet Fernandez APRN.KOLE Lucero [facility] Clinical Pool Hi, Pt is scheduled with me on 11/14/24 for [facility] follow up. I have no hospital [...] Calloway MA 10/31/2024 10:19 AM Signed Received [facility] medical records for patient Monica Calloway MA [...] Status:Closed by LELA SCRUGGS on 10/30/24 Normal [facility] Absolute lymphocyte countOrd ered By: Farhana Harden on 10-23-2024 Lymphocytes Auto (Unsp spec) [#/Vol] 3.27 10*3/uL 0.83-4.51 [facility] Absolute neutrophil countOrd ered By: Farhana Harden on 10-23-2024 Neutrophils (Bld) [#/Vol] 2.5 10*3/uL 2.0-7.7 [facility] Anion gap in Serum or Plasma Ordered By: Farhana Harden on 10-23-2024 Anion gap [Moles/Vol] 10 mmol/L 5-15 [facility] Automated lymphocyte count a s percentage of total leukocytesOrdered By: Farhana Harden on 10-23-2024 Lymphocytes/100 WBC Auto (Unsp spec) 49.8 % High 19-41 [facility] BUN/creatinine ratioOrdered By: Farhana Harden on 10-23-2024 Urea nitrogen/Creatinine [Mass ratio] 15.2 mg/mg 10-20 [facility] Basophil percentageOrdered B y: Farhana Harden on 10-23-2024 Basophils/100 WBC (Bld) 0.9 % 0-1 [facility] Bilirubin, totalOrdered By: Farhana Harden on 10-23-2024 Bilirubin [Mass/Vol] 0.25 mg/dL 0.00-1.30 [facility] Blood manual differential co mment interpretation (narrative result)Ordered By: Farhana Harden on 10-23-2024 Manual differential comment Bro (Bld) [Interp] SCANNED [facility] Brain W/WO Contraston 2024 Brain W/WO Contrast [facility] [address] [place], [place] [address] Brain W/WO Contrast MR#: [id number] Acct: [id number] Name: CODY SANTANA Rep #: [id number] : 1985 F 38 From: Lucina Gaston PCP: Care Physician,No Primary Status: ADM MARGY Study: Brain W/WO Contrast Date of Exam: 10/23/24 Exam# [id number] Ordering Dr: Farhana Harden DO PROCEDURE: BRAIN [...] a patient of this age. Reading Location: [place] [address] CC: Dr. Farhana Harden DO; No Primary Care Physician Chief Of Surgery: Signed Normal [facility] CBC W/Diff, Automatedon 10-10 ATYPICAL LYMPH 2+ Normal [facility] Comment on above: Performed By: #### L 501.2300, L500.4100, L100.0100, L500.4050, L501.5200 ####[facility] [address] [place], [address] SMEAR COMMENT SCANNED Normal [facility] Comment on above: Performed By: #### L 501.2300, L500.4100, L100.0100, L500.4050, L501.5200 ####[facility] [address] [place], [address] Calculated very low density lipoprotein (VLDL) cholesterol measurementOrdered By: Farhana Harden on 10-23-2024 Calculated very low density lipoprotein (VLDL) cholesterol measurement 21 mg/dL 5-40 [facility] Carbon dioxide, total [Moles /volume] in Central venous bloodOrdered By: Farhana Harden on 10-23-2024 CO2 [Moles/Vol] 17.7 mmol/L Low 21.0-32.0 [facility] Chloride assayOrdered By: Jim Harden on 10-23-2024 Chloride [Moles/Vol] 115 mmol/L High 98-108 [facility] Comprehensive Metabolic Prof ilon 10-23-2024 Albumin [Mass/Vol] 3.8 g/dL Normal 3.5-5.0 [facility] Comment on above: Order Comment: Comme nts: NPO at [place] prior to lipid panel Performed By: #### L 501.2300, L500.4100, L100.0100, L500.4050, L501.5200 ####[facility] [address] [place], [address] Albumin/Globulin [Mass ratio] 1.4 {ratio} Normal 0.9-2.4 [facility] Comment on above: Order Comment: Comme nts: NPO at [place] prior to lipid panel Performed By: #### L 501.2300, L500.4100, L100.0100, L500.4050, L501.5200 ####[facility] [address] [place], [address] ALK PHOS 47 U/L Normal 35-104 [facility] Comment on above: Order Comment: Comme nts: NPO at [place] prior to lipid panel Performed By: #### L 501.2300, L500.4100, L100.0100, L500.4050, L501.5200 ####[facility] [address] [place], [address] ALT [Catalytic activity/Vol] 14 U/L Normal <=34 [facility] Comment on above: Order Comment: Comme nts: NPO at [place] prior to lipid panel Performed By: #### L 501.2300, L500.4100, L100.0100, L500.4050, L501.5200 ####[facility] [address] [place], [address] AST [Catalytic activity/Vol] 19 U/L Normal <=31 [facility] Comment on above: Order Comment: Comme nts: NPO at [place] prior to lipid panel Performed By: #### L 501.2300, L500.4100, L100.0100, L500.4050, L501.5200 ####[facility] [address] [place], [address] Bilirubin [Mass/Vol] 0.25 mg/dL Normal 0.00-1.30 [facility] Comment on above: Order Comment: Comme nts: NPO at [place] prior to lipid panel Performed By: #### L 501.2300, L500.4100, L100.0100, L500.4050, L501.5200 ####[facility] [address] [place], [address] BUN/CRE 15.2 RATIO Normal 10-20 [facility] Comment on above: Order Comment: Comme nts: NPO at [place] prior to lipid panel Performed By: #### L 501.2300, L500.4100, L100.0100, L500.4050, L501.5200 ####[facility] [address] [place], [address] Calcium [Mass/Vol] 8.9 mg/dL Normal 7.6-11.0 [facility] Comment on above: Order Comment: Comme nts: NPO at [place] prior to lipid panel Performed By: #### L 501.2300, L500.4100, L100.0100, L500.4050, L501.5200 ####[facility] [address] [place], [address] Chloride [Moles/Vol] 115 mmol/L High 98-108 [facility] Comment on above: Order Comment: Comme nts: NPO at [place] prior to lipid panel Performed By: #### L 501.2300, L500.4100, L100.0100, L500.4050, L501.5200 ####[facility] [address] [place], [address] CO2 [Moles/Vol] 17.7 mmol/L Low 21.0-32.0 [facility] Comment on above: Order Comment: Comme nts: NPO at [place] prior to lipid panel Performed By: #### L 501.2300, L500.4100, L100.0100, L500.4050, L501.5200 ####[facility] [address] [place], [address] Creatinine [Mass/Vol] 0.90 mg/dL Normal 0.70-1.20 [facility] Comment on above: Order Comment: Comme nts: NPO at [place] prior to lipid panel Performed By: #### L 501.2300, L500.4100, L100.0100, L500.4050, L501.5200 ####[facility] [address] [place], [address] ECRCL 88.93 ml/min Normal 50-250 [facility] Comment on above: Order Comment: Comme nts: NPO at [place] prior to lipid panel Performed By: #### L 501.2300, L500.4100, L100.0100, L500.4050, L501.5200 ####[facility] [address] [place], [address] GAP 10 Normal 5-15 [facility] Comment on above: Order Comment: Comme nts: NPO at [place] prior to lipid panel Performed By: #### L 501.2300, L500.4100, L100.0100, L500.4050, L501.5200 ####[facility] [address] [place], [address] GFR/1.73 sq M.predicted among non-blacks MDRD (S/P/Bld) [Vol rate/Area] 84 mL/min/{1.73_m2} Normal >60 [facility] Comment on above: Order Comment: Comme nts: NPO at [place] prior to lipid panel Result Comment: mL/m in/1.73m2 CKD-EPI Creatinine Equation (2020) Performed By: #### L 501.2300, L500.4100, L100.0100, L500.4050, L501.5200 ####[facility] [address] [place], [address] Globulin (S) [Mass/Vol] 2.8 g/dL Normal 2.2-4.2 [facility] Comment on above: Order Comment: Comme nts: NPO at [place] prior to lipid panel Performed By: #### L 501.2300, L500.4100, L100.0100, L500.4050, L501.5200 ####[facility] [address] [place], [address] Glucose [Mass/Vol] 107 mg/dL High 70-99 [facility] Comment on above: Order Comment: Comme nts: NPO at [place] prior to lipid panel Performed By: #### L 501.2300, L500.4100, L100.0100, L500.4050, L501.5200 ####[facility] [address] [place], [address] Potassium [Moles/Vol] 3.5 mmol/L Normal 3.3-5.1 [facility] Comment on above: Order Comment: Comme nts: NPO at [place] prior to lipid panel Performed By: #### L 501.2300, L500.4100, L100.0100, L500.4050, L501.5200 ####[facility] [address], [address] Sodium [Moles/Vol] 143 mmol/L Normal 133-145 [facility] Comment on above: Order Comment: Comme nts: NPO at [place] prior to lipid panel Performed By: #### L 501.2300, L500.4100, L100.0100, L500.4050, L501.5200 ####[facility] [address], [address] T PROT 6.5 g/dL Normal 5.9-8.4 [facility] Comment on above: Order Comment: Comme nts: NPO at SC prior to lipid panel Performed By: #### L 501.2300, L500.4100, L100.0100, L500.4050, L501.5200 ####[facility] [address] [place], [address] Urea nitrogen [Mass/Vol] 14 mg/dL Normal 4-19 [facility] Comment on above: Order Comment: Comme nts: NPO at SC prior to lipid panel Performed By: #### L 501.2300, L500.4100, L100.0100, L500.4050, L501.5200 ####[facility] [address], [address] Discharge Instructionon 10-10 Discharge Instruction [facility] Medical Records Department [address] [place] [address] Instructions for Home/Discharge Instructions 10/23/24 1529 MR#: [id number] Acct: [id number] Name: CODY SANTANA Rep #: [id number] : 1985 38 From: Taye Delvalle MD [...] / Restrictions: Patient follows on neurologist in [place]. She had MRI with and without contrast [...] medroxyprogesterone 150 MG/ML syringe 150 mg IM .[id number] citalopram 40 MG tablet 40 mg PO [...] can be placed): Home, Self Care 10/23/24 0685 Taye Delvalle MD CC: Dr. Farhana Harden DO; No Primary Care Physician Signed Normal [facility] Echocardiogram study reportO rdered By: Jan Ruby on 10-23-2024 Study report [facility] Cardiovascular Services [address] [place] [address] Echo Complete 10/23/24 1036 MR#: [id number] Acct: [id number] Name: CODY SANTANA Rep #:[id number] : [...] Dictated: 10/23/24 1036 Date Transcribed: 10/23/24 1320 Chief Of Surgery: Signed [facility] Work Phone: Eosinophil percentageOrdered By: Farhana Harden on 10-23-2024 Eosinophils/100 WBC (Bld) 3.5 % 0-5 [facility] Erythrocyte distribution wid th ratioOrdered By: Farhana Harden on 10-23-2024 Erythrocyte distribution width (RBC) [Ratio] 14.4 % 11.6-14.6 [facility] Erythrocyte distribution wid th standard deviationOrdered By: Farhana Harden on 10-23-2024 Erythrocyte distribution width (RBC) [Ratio] 49.9 fl High 35.1-43.9 [facility] Glomerular filtration rate ( GFR) estimation/1.73 sq m using serum, plasma, or whole bOrdered By: Farhana Harden on 10-23-2024 GFR/1.73 sq M.predicted among non-blacks MDRD (S/P/Bld) [Vol rate/Area] 84 mL/min/{1.73_m2} >60 [facility] Comment on above: mL/min/1.73m2 CKD-EP I Creatinine Equation (2020) Hematocrit Auto (Bld) [Volum e fraction]Ordered By: Farhana Harden on 10-23-2024 Hematocrit (Bld) [Volume fraction] 34.5 % Low 37-47 [facility] Hemoglobin measurementOrdere d By: Farhana Harden on 10-23-2024 Hemoglobin (Bld) [Mass/Vol] 11.5 g/dL Low 12.0-15.0 [facility] Immature granulocytes/100 WB C Auto (Bld)Ordered By: Farhnaa Harden on 10-23-2024 Immature granulocytes/100 WBC (Bld) 0.200 % 0.0-0.9 [facility] Comment on above: IG% - Immature Granu locytes (promyelocytes, myelocytes and metamyelocytes) > 1% indicates that a LEFT SHIFT is Present. L499.0043on 10-23-2024 Trop T High Sen < 6 Normal <=14 [facility] Comment on above: Performed By: #### Darin 499.0043 ####[facility] [address] [place], [place], [id number] LDL calc ser/plasOrdered By: Farhana Harden on 10-23-2024 Cholesterol in LDL [Mass/Vol] 105 mg/dL [facility] Comment on above: Fhchnfruiy=310-633 m g/dL & Higher Wify=300 mg/dL or greater Laboratory - Chemistry and C hemistry - challengeOrdered By: Farhana Harden on 10-23-2024 AST [Catalytic activity/Vol] 19 U/L <32 [facility] Lipid Profileon 10-23-2024 CHOL:HDL 4.75 Normal [facility] Comment on above: Order Comment: Comme nts: NPO at [place] prior to lipid panel Performed By: #### L 501.2300, L500.4100, L100.0100, L500.4050, L501.5200 ####[facility] [address] [place], [place], [id number] Cholesterol [Mass/Vol] 160 mg/dL Normal <=200 [facility] Comment on above: Order Comment: Comme nts: NPO at [place] prior to lipid panel Result Comment: Chol esterol level, Desirable <200 mg/dL Borderline high cholesterol 200-239 mg/dL High cholesterol >=240 mg/dL Recommendations of the NCEP Adult Treatment Panel for the following risk-cutoff thresholds for the [place] population. Performed By: #### L 501.2300, L500.4100, L100.0100, L500.4050, L501.5200 ####[facility] [address] [place], [address] Cholesterol in HDL [Mass/Vol] 34 mg/dL Low [facility] Comment on above: Order Comment: Comme nts: NPO at SC prior to lipid panel Result Comment: Esperanza onal Cholesterol Education Program (NCEP) guidelines: <40 mg/dL: Low HDL-cholesterol (major risk factor for CHD) >= 60 mg/dL: High HDL-cholesterol (negative risk factor for CHD) HDL-cholesterol is affected by a number of factors, e.g. smoking, exercise, hormones, sex and age. Performed By: #### L 501.2300, L500.4100, L100.0100, L500.4050, L501.5200 ####[facility] [address] [place], [address] Cholesterol in LDL [Mass/Vol] 105 mg/dL Normal [facility] Comment on above: Order Comment: Comme nts: NPO at SC prior to lipid panel Result Comment: Bord nvyarc=174-168 mg/dL Higher Luxw=166 mg/dL or greater Performed By: #### L 501.2300, L500.4100, L100.0100, L500.4050, L501.5200 ####[facility] [address] [place], [address] Cholesterol in VLDL [Mass/Vol] 21 mg/dL Normal 5-40 [facility] Comment on above: Order Comment: Comme nts: NPO at [place] prior to lipid panel Performed By: #### L 501.2300, L500.4100, L100.0100, L500.4050, L501.5200 ####[facility] [address] [place], [address] Triglyceride [Mass/Vol] 106 mg/dL Normal [facility] Comment on above: Order Comment: Comme nts: NPO at SC prior to lipid panel Result Comment: The drugs N-Acetylcysteine and Metamizole may falsely depress this assay. Normal range: <150 mg/dL Borderline High: 150-199 mg/dL High: 200-499 mg/dL Very High: >500 mg/dL Performed By: #### L 501.2300, L500.4100, L100.0100, L500.4050, L501.5200 ####[facility] [address] [place], [address] MCV (mean corpuscular volume ) determinationOrdered By: Farhana Harden on 10-23-2024 MCV (RBC) [Entitic vol] 94.5 fL 81-99 [facility] Magnesiumon 10-23-2024 Magnesium [Mass/Vol] 2.1 mg/dL Normal 1.5-2.2 [facility] Comment on above: Order Comment: Comme nts: NPO at [place] prior to lipid panel Performed By: #### L 501.2300, L500.4100, L100.0100, L500.4050, L501.5200 ####[facility] [address] [place], [place], [id number] Magnesium measurement (mass/ volume)Ordered By: Farhana Harden on 10-23-2024 Magnesium (Unsp spec) [Mass/Vol] 2.1 mg/dL 1.5-2.2 [facility] Magnetic resonance imaging r eportOrdered By: Lucina Garg on 10-23-2024 Study report [facility] Imaging Services [address] [place], [place] [id number] Brain W/WO Contrast MR#: [id number] Acct: [id number] Name: CODY SANTANA Rep #: [id number] : 1985 F 38 From: Austin Garg MD PCP: Care Physician,No Primary Status: ADM MARGY Study:Brain W/WO Contrast Date of Exam: 10/23/24 Exam# [id number] Ordering Dr: Michelle Harden DO PROCEDURE: BRAIN [...] a patient of this age. Reading Location: [place] [address] CC: Dr. Farhana Harden DO; No Primary Care Physician ~ Chief Of Surgery: Signed [facility] Mean corpuscular hemoglobin (MCH) determinationOrdered By: Farhana Harden on 10-23-2024 MCH (RBC) [Entitic mass] 31.5 pg 27.0-32.0 [facility] Mean corpuscular hemoglobin concentration (MCHC) determinationOrdered By: Farhana Harden on 10-23-2024 MCHC (RBC) [Mass/Vol] 33.3 g/dL 32-36 [facility] Mean platelet volume determi nationOrdered By: Farhana Harden on 10-23-2024 Platelet mean volume (Bld) [Entitic vol] 10.3 fL 6.2-12.0 [facility] Monocyte percentageOrdered B y: Farhana Harden on 10-23-2024 Monocytes/100 WBC (Bld) 7.5 % 0-10 [facility] Neutrophil percentageOrdered By: Farhana Harden on 10-23-2024 Neutrophils/100 WBC (Bld) 38.1 % Low 47-70 [facility] Nucleated red blood cell per centageOrdered By: Farhana Harden on 10-23-2024 Nucleated RBC/100 WBC (Bld) [Ratio] 0 % 0-5 [facility] Phosphoruson 10-23-2024 Phosphate [Mass/Vol] 3.7 mg/dL Normal 2.7-4.5 [facility] Comment on above: Order Comment: Comme nts: NPO at [place] prior to lipid panel Performed By: #### L 501.2300, L500.4100, L100.0100, L500.4050, L501.5200 ####[facility] [address] [place], [place], [id number] Platelet countOrdered By: Jim Harden on 10-23-2024 Platelets (Bld) [#/Vol] 182 10*3/uL 150-450 [facility] Potassium measurement (mass/ volume)Ordered By: Farhana Harden on 10-23-2024 Potassium (Unsp spec) [Mass/Vol] 3.5 mmol/L 3.3-5.1 [facility] RBC Auto (Bld) [#/Vol]Ordere d By: Farhana Harden on 10-23-2024 RBC (Bld) [#/Vol] 3.65 10*6/uL Low 4.2-5.4 [facility] Screening total cholesterol/ high density lipoprotein (HDL) cholesterol ratioOrdered By: Farhana Harden on 10-23-2024 Cholesterol.total/Chol esterol in HDL [Mass ratio] 4.75 {ratio} [facility] Serum creatinine measurement (mass/volume)Ordered By: Farhana Harden on 10-23-2024 Creatinine [Mass/Vol] 0.90 mg/dL 0.70-1.20 [facility] Serum globulin measurementOr dered By: Farhana Harden on 10-23-2024 Globulin (S) [Mass/Vol] 2.8 g/dL 2.2-4.2 [facility] Serum glucose measurement (m ass/volume)Ordered By: Farhana Harden on 10-23-2024 Glucose [Mass/Vol] 107 mg/dL High 70-99 [facility] Serum or plasma alanine rachel otransferase (ALT) measurementOrdered By: Farhana Harden on 10-23-2024 ALT [Catalytic activity/Vol] 14 U/L <35 [facility] Serum or plasma albumin mykel urement (mass/volume)Ordered By: Farhana Harden on 10-23-2024 Albumin [Mass/Vol] 3.8 g/dL 3.5-5.0 [facility] Serum or plasma albumin/glob ulin mass ratioOrdered By: Farhana Harden on 10-23-2024 Albumin/Globulin [Mass ratio] 1.4 {ratio} 0.9-2.4 [facility] Serum or plasma alkaline liborio sphatase measurementOrdered By: Farhana Harden on 10-23-2024 ALP [Catalytic activity/Vol] 47 U/L 35-104 [facility] Serum or plasma calcium mykel urement (mass/volume)Ordered By: Farhana Harden on 10-23-2024 Calcium [Mass/Vol] 8.9 mg/dL 7.6-11.0 [facility] Serum or plasma cholesterol in HDL measurement (mass/volume)Ordered By: Farhana Harden on 10-23-2024 Cholesterol in HDL [Mass/Vol] 34 mg/dL Low >40 [facility] Comment on above: National Cholesterol Education Program (NCEP) guidelines:<40 mg/dL: Low HDL-cholesterol (major risk factor for CHD)>= 60 mg/dL: High HDL-cholesterol (negative risk factor for CHD)HDL-cholesterol is affected by a number of factors, e.g. smoking, exercise, hormones, sex and age. Serum or plasma cholesterol measurement (mass/volume)Ordered By: Farhana Harden on 10-23-2024 Cholesterol [Mass/Vol] 160 mg/dL <201 [facility] Comment on above: Cholesterol level, D esirable <200 mg/dLBorderline high cholesterol 200-239 mg/dLHigh cholesterol >=240 mg/dLRecommendations of the NCEP Adult Treatment Panel for the following risk-cutoff thresholds for the [place] population. Serum or plasma urea nitroge n measurement (mass/volume)Ordered By: Farhana Harden on 10-23-2024 Urea nitrogen [Mass/Vol] 14 mg/dL 4-19 [facility] Sodium levelOrdered By: Michelle Harden on 10-23-2024 Sodium [Moles/Vol] 143 mmol/L 133-145 [facility] Total proteinOrdered By: Jemma Harden on 10-23-2024 Protein [Mass/Vol] 6.5 g/dL 5.9-8.4 [facility] Triglycerides measurementOrd ered By: Farhana Harden on 10-23-2024 Triglyceride [Mass/Vol] 106 mg/dL <199 [facility] Comment on above: The drugs N-Acetylcy steine and Metamizole may falsely depress this assay. Normal range: <150 mg/dLBorderline High: 150-199 mg/dLHigh: 200-499 mg/dLVery High: >500 mg/dL Troponin T.cardiac [Mass/vol ume] in Serum or Plasma by High sensitivity methodOrdered By: Jeremy Gerard on 10-23-2024 Troponin T.cardiac High sensitivity method [Mass/Vol] < 6 ng/L <14 [facility] White blood cell (WBC) count Ordered By: Farhana Harden on 10-23-2024 WBC (Bld) [#/Vol] 6.6 10*3/uL 4.4-11.0 [facility] 12 Lead EKGon 10-22-2024 12 Lead EKG [facility] Cardiovascular Services [address] [place] [address] 12 Lead EKG 10/22/24 2153 MR#: [id number] Acct: [id number] Name: CODY SANTANA Rep #: [id number] : 1985 38 From: Jade Fall MD Attending Dr: Dr. Taye Delvalle MD Status: DIS MARGY Ordering Dr: Jeremy Gerard DO Date: 10/22/24 Location: U Sex: F C Admitted: 10/22/24 Test Reason : DYSRHYTHMIA Blood Pressure : */* mmHG Vent. Rate : 64 BPM Atrial Rate : 64 BPM P-R Int : 152 ms QRS Dur : 82 ms QT Int : 388 ms P-R-T Axes : 62 27 21 degrees QTcB Int : 400 ms Normal sinus rhythm Normal ECG Confirmed by Jade Fall ([id number]), newspaper editor managing ELI LAIRD ([id number]) on 2024 10:02:03 AM Referred By: Confirmed By: Jade Fall 10/24/24 1002 Date Jade Fall MD CC: Dr. Taye Delvalle MD; Dr. Jeremy Gerard, DO; No Primary Care Physician Signed Normal [facility] Absolute lymphocyte countOrd ered By: Jeremy Gerard on 10-22-2024 Lymphocytes Auto (Unsp spec) [#/Vol] 2.80 10*3/uL 0.83-4.51 [facility] Absolute neutrophil countOrd ered By: Jeremy Gerard on 10-22-2024 Neutrophils (Bld) [#/Vol] 2.9 10*3/uL 2.0-7.7 [facility] Activated partial thrombopla stin time (aPTT) in platelet poor plasma by coagulation aOrdered By: Jeremy Gerard on 10-22-2024 aPTT Coag (PPP) [Time] 30.8 s 24.1-36.2 [facility] Anion gap in Serum or Plasma Ordered By: Jeremy Gerard on 10-22-2024 Anion gap [Moles/Vol] 11 mmol/L 10-24 [facility] Automated lymphocyte count a s percentage of total leukocytesOrdered By: Jeremy Gerard on 10-22-2024 Lymphocytes/100 WBC Auto (Unsp spec) 43.7 % High 19-41 [facility] BUN/creatinine ratioOrdered By: Jeremy Gerard on 10-22-2024 Urea nitrogen/Creatinine [Mass ratio] 12.1 mg/mg - [facility] Basic Metabolic Profile (BMP )on 10-22-2024 BUN/CRE 12.1 RATIO Normal 03-31 [facility] Comment on above: Performed By: #### L 300.4310, L500.2500, L501.4021, L300.3900, L100.0100 ####[facility] [address] [place], [address] Calcium [Mass/Vol] 9.3 mg/dL Normal 7.6-11.0 [facility] Comment on above: Performed By: #### L 300.4310, L500.2500, L501.4021, L300.3900, L100.0100 ####[facility] [address] [place], [address] Chloride [Moles/Vol] 110 mmol/L High 98-108 [facility] Comment on above: Performed By: #### L 300.4310, L500.2500, L501.4021, L300.3900, L100.0100 ####[facility] [address] [place], [address] CO2 [Moles/Vol] 18.2 mmol/L Low 21.0-32.0 [facility] Comment on above: Performed By: #### L 300.4310, L500.2500, L501.4021, L300.3900, L100.0100 ####[facility] [address] [place], [address] Creatinine [Mass/Vol] 0.97 mg/dL Normal 0.70-1.20 [facility] Comment on above: Performed By: #### L 300.4310, L500.2500, L501.4021, L300.3900, L100.0100 ####[facility] [address] [place], [address] ECRCL 84.27 ml/min Normal 50-250 [facility] Comment on above: Performed By: #### L 300.4310, L500.2500, L501.4021, L300.3900, L100.0100 ####[facility] [address] [place], [address] GAP 11 Normal 5-15 [facility] Comment on above: Performed By: #### L 300.4310, L500.2500, L501.4021, L300.3900, L100.0100 ####[facility] [address] [place], [address] GFR/1.73 sq M.predicted among non-blacks MDRD (S/P/Bld) [Vol rate/Area] 78 mL/min/{1.73_m2} Normal >60 [facility] Comment on above: Result Comment: mL/m in/1.73m2 CKD-EPI Creatinine Equation (2020) Performed By: #### L 300.4310, L500.2500, L501.4021, L300.3900, L100.0100 ####[facility] [address] [place], [address] Glucose [Mass/Vol] 79 mg/dL Normal 70-99 [facility] Comment on above: Performed By: #### L 300.4310, L500.2500, L501.4021, L300.3900, L100.0100 ####[facility] [address] [place], [address] Potassium [Moles/Vol] 3.4 mmol/L Normal 3.3-5.1 [facility] Comment on above: Performed By: #### L 300.4310, L500.2500, L501.4021, L300.3900, L100.0100 ####[facility] [address] [place], [address] Sodium [Moles/Vol] 139 mmol/L Normal 133-145 [facility] Comment on above: Performed By: #### L 300.4310, L500.2500, L501.4021, L300.3900, L100.0100 ####[facility] [address] [place], [address] Urea nitrogen [Mass/Vol] 12 mg/dL Normal 4-19 [facility] Comment on above: Performed By: #### L 300.4310, L500.2500, L501.4021, L300.3900, L100.0100 ####[facility] [address] [place], [address] Basophil percentageOrdered B y: Jeremy Gerard on 10-22-2024 Basophils/100 WBC (Bld) 0.6 % 0-1 [facility] Bedside Glucoseon 10-22-2024 FINGERSTICK GLU 88 mg/dL Normal 74-106 [facility] Comment on above: Result Comment: MORAIMA PRYOR OF PATIENT CARE PER NURSING PROTOCOL Performed By: #### L 501.080 #### [facility] [address] [place], [address] Blood manual differential co mment interpretation (narrative result)Ordered By: Jeremy Gerard on 10-22-2024 Manual differential comment Bro (Bld) [Interp] SCANNED [facility] CBC W/Diff, Automatedon 10-10 ATYPICAL LYMPH 2+ Normal [facility] Comment on above: Performed By: #### L 300.4310, L500.2500, L501.4021, L300.3900, L100.0100 #### [facility] [address] [place], [address] SMEAR COMMENT SCANNED Normal [facility] Comment on above: Performed By: #### L 300.4310, L500.2500, L501.4021, L300.3900, L100.0100 #### [facility] [address] [place], [address] Carbon dioxide, total [Moles /volume] in Central venous bloodOrdered By: Jeremy Gerard on 10-22-2024 CO2 [Moles/Vol] 18.2 mmol/L Low 21.0-32.0 [facility] Chloride assayOrdered By: Sanya Gerard on 10-22-2024 Chloride [Moles/Vol] 110 mmol/L High 98-108 [facility] Echo Completeon 10-22-2024 Echo Complete [facility] Cardiovascular Services [address] [place] [address] Echo Complete 10/23/24 1036 MR#: [id number] Acct: [id number] Name: CODY SANTANA Rep #: [id number] : 1985 38 From: Jan Ruby MD Attending Dr: Dr. Taye Delvalle MD Status: ADM MARGY Ordering Dr: Farhana Harden DO Date: 10/22/24 Location: [facility] Sex: F C Admitted: 10/22/24 Reason For [...] Dictated: 10/23/24 1036 Date Transcribed: 10/23/24 1320 Chief Of Surgery: Signed Normal [facility] Emergency Department Summary on 10-22-2024 Emergency Department Summary [facility] Medical Records Department [address] [place] [address] Emergency Department Summary 10/22/24 MR#: [id number] Acct: [id number] Name: CODY SANTANA Rep #: [id number] : 1985 38 From: Jeremy Larose PCP: Care Physician,No Primary Status:ADM MARGY Location: [place] [address] HPI History of Present Illness Chief Complaint: [...] ???Type medroxyprogesterone 150 mg/mL 150 mg IM .[id number] control 01/30/15 08/24/24 11:00 History intramuscular syringe [...] Reaction Status Date / Time acetaminophen (From [place]) Allergy Itching Verified 10/22/24 20:55 hydrocodone (From [place]) Allergy Itching Verified 10/22/24 20:55 oxycodone (From [...] frequency Muscul (more content not included)... Normal [facility] Eosinophil percentageOrdered By: Jeremy Gerard on 10-22-2024 Eosinophils/100 WBC (Bld) 2.2 % 0-5 [facility] Erythrocyte distribution wid th ratioOrdered By: Jeremy Gerard on 10-22-2024 Erythrocyte distribution width (RBC) [Ratio] 14.1 % 11.6-14.6 [facility] Erythrocyte distribution wid th standard deviationOrdered By: Jeremy Gerard on 10-22-2024 Erythrocyte distribution width (RBC) [Ratio] 48.1 fl High 35.1-43.9 [facility] Glomerular filtration rate ( GFR) estimation/1.73 sq m using serum, plasma, or whole bOrdered By: Jeremy Gerard on 10-22-2024 GFR/1.73 sq M.predicted among non-blacks MDRD (S/P/Bld) [Vol rate/Area] 78 mL/min/{1.73_m2} >60 [facility] Comment on above: mL/min/1.73m2 CKD-EP I Creatinine Equation (2020) [facility] deOrdered By: Jeremy Gerard on 10-22-2024 Glucose [Mass/Vol] 88 mg/dL 74-106 [facility] Comment on above: MANAGEMENT OF PATIEN T CARE PER NURSING PROTOCOL H AND P Exam - Hospitaliston 10-22-2024 H&P Exam - Hospitalist [facility] Medical Records Department [address] [place] [address] H P Exam - Hospitalist 10/22/240 MR#: [id number] Acct: [id number] Name: CODY SANTANA Rep #: [id number] : 1985 38 From: Farhana Harden DO PCP: Care Physician,No Primary Status:ADM MARGY Location: [place] [address] HPI - General General Date of Admission: 10/22/24 Date of Service: 10/23/24 Chief Complaint: Left leg weakness/expressive aphasia/slurred speech/right arm paresthesias HPI Narrative CODY SANTANA, is a 38 F who presented to the emergency department [facility] on 10/23/2023 with a chief complaint of [...] stay to be less than 48 hours. [facility] Medical History Lumbar pain with radiation down right leg Dental caries Brain TIA Dysarthria Chronic migraine Anxiety and depression History of venous thromboembolism Obesity Tobacco use History of nephrolithiasis Chronic neck and back pain Factor 5 Leiden mutation, heterozygous Home Medications ???Medication ???Instructions ???Recorded ???Last Taken ???Type medroxyprogesterone 150 mg/mL 150 mg IM .[id number] control 01/30/15 08/24/24 11:00 History intramuscular syringe [...] Reaction Status Date / Time acetaminophen (From [place]) Allergy Itching Verified 10/22/24 20:55 hydrocodone (From [place]) Allergy Itching Verified 10/22/24 20:55 (more content not included)... Normal [facility] Hematocrit Auto (Bld) [Volum e fraction]Ordered By: Jeremy Gerard on 10-22-2024 Hematocrit (Bld) [Volume fraction] 34.9 % Low 37-47 [facility] Hemoglobin A1con 10-22-2024 HbA1c (Bld) [Mass fraction] 5.1 % Normal <=5.6 [facility] Comment on above: Result Comment: Norm al < 5.7 % Prediabetic 5.7 - 6.4 % Diabetic >or= 6.5 % Please note range changes. Performed By: #### L 501.8877 #### [facility] [address] [place] [address]. [place], [address] Hemoglobin A1c percentageOrd ered By: Farhana Harden on 10-22-2024 HbA1c (Bld) [Mass fraction] 5.1 % <5.7 [facility] Comment on above: Normal < 5.7 % Predi abetic 5.7 - 6.4 % Diabetic >or= 6.5 % Please note range changes. Hemoglobin measurementOrdere d By: Jeermy Gerard on 10-22-2024 Hemoglobin (Bld) [Mass/Vol] 11.9 g/dL Low 12.0-15.0 [facility] Immature granulocytes/100 WB C Auto (Bld)Ordered By: Jeremy Gerard on 10-22-2024 Immature granulocytes/100 WBC (Bld) 0.200 % 0.0-0.9 [facility] Comment on above: IG% - Immature Granu locytes (promyelocytes, myelocytes and metamyelocytes) > 1% indicates that a LEFT SHIFT is Present. International normalized rat io (INR) calculationOrdered By: Jeremy Gerard on 10-22-2024 INR Coag (Bld) [Relative time] 1.1 {INR} [facility] L499.0042on 10-22-2024 Trop T High Sen < 6 Normal <=14 [facility] Comment on above: Performed By: #### L 499.0042 ####[facility] [address] [place], [address] L501.4021on 10-22-2024 Trop T High Sen 7 ng/L Normal <=14 [facility] Comment on above: Performed By: #### L 300.4310, L500.2500, L501.4021, L300.3900, L100.0100 ####[facility] [address] [place], [address] MCV (mean corpuscular volume ) determinationOrdered By: Jeremy Gerard on 10-22-2024 MCV (RBC) [Entitic vol] 92.6 fL 81-99 [facility] Mean corpuscular hemoglobin (MCH) determinationOrdered By: Jeremy Gerard on 10-22-2024 MCH (RBC) [Entitic mass] 31.6 pg 27.0-32.0 [facility] Mean corpuscular hemoglobin concentration (MCHC) determinationOrdered By: Jeremy Gerard on 10-22-2024 MCHC (RBC) [Mass/Vol] 34.1 g/dL 32-36 [facility] Mean platelet volume determi nationOrdered By: Jeremy Gerard on 10-22-2024 Platelet mean volume (Bld) [Entitic vol] 10.5 fL 6.2-12.0 [facility] Monocyte percentageOrdered B y: Jeremy eGrard on 10-22-2024 Monocytes/100 WBC (Bld) 8.6 % 0-10 [facility] Neutrophil percentageOrdered By: Jeremy Gerard on 10-22-2024 Neutrophils/100 WBC (Bld) 44.7 % Low 47-70 [facility] Nucleated red blood cell per centageOrdered By: Jeremy Gerard on 10-22-2024 Nucleated RBC/100 WBC (Bld) [Ratio] 0 % 0-5 [facility] Partial Thromboplast Timeon 10-22-2024 aPTT Coag (Bld) [Time] 30.8 s Normal 24.1-36.2 [facility] Comment on above: Performed By: #### L 300.4310, L500.2500, L501.4021, L300.3900, L100.0100 ####[facility] [address] [place], [address] Platelet countOrdered By: Sanya Gerard on 10-22-2024 Platelets (Bld) [#/Vol] 188 10*3/uL 150-450 [facility] Potassium measurement (mass/ volume)Ordered By: Jeremy Gerard on 10-22-2024 Potassium (Unsp spec) [Mass/Vol] 3.4 mmol/L 3.3-5.1 [facility] Prothrombin Time w/INRon INR Coag (PPP) [Relative time] 1.1 {INR} Normal [facility] Comment on above: Performed By: #### L 300.4310, L500.2500, L501.4021, L300.3900, L100.0100 ####[facility] [address] [place], [address] PT Coag (PPP) [Time] 14.3 s Normal 11.7-14.9 [facility] Comment on above: Performed By: #### L 300.4310, L500.2500, L501.4021, L300.3900, L100.0100 ####[facility] [address] [place], [address] Prothrombin timeOrdered By: Jeremy Gerard on 10-22-2024 PT Coag (PPP) [Time] 14.3 s 11.7-14.9 [facility] RBC Auto (Bld) [#/Vol]Ordere d By: Jeremy Gerard on 10-22-2024 RBC (Bld) [#/Vol] 3.77 10*6/uL Low 4.2-5.4 [facility] STROKE Brain/Head without Co nton 10-22-2024 STROKE Brain/Head without Cont [facility] [address], [place] [id number] STROKE Brain/Head without Cont MR#: [id number] Acct: [id number] Name: CODY SANTANA Rep #: [id number] : 1985 F 38 From: Gerardo brewster MD PCP: Care Physician,No Primary Status: REG ER Study: STROKE Brain/Head without Cont Date of Exam: 0 10/22/24 Exam# [id number] Ordering Dr: Jeremy Gerard DO PROCEDURE: STROKE [...] Jeremy Gerard DO; No Primary Care Physician Chief Of Surgery: Signed Normal [facility] STROKE CTA Head AND Neck W/C onon 10-22-2024 STROKE CTA Head AND Neck W/Con [facility] [address] [place] [address] STROKE CTA Head AND Neck W/Con MR#: [id number] Acct: [id number] Name: CODY SANTANA Rep #: [id number] : 1985 F 38 From: Gerardo brewster MD PCP: Care Physician,No Primary Status: REG ER Study: STROKE CTA Head AND Neck W/Con Date of Exam: 0 10/22/24 Exam# [id number] Ordering Dr: Jeremy Gerard DO PROCEDURE: STROKE [...] RIGHT Vertebral: Unremarkable. LEFT Vertebral: Unremarkable. Anatomy: [place] anatomy is normal. Aneurysm or [...] circulation, without hemodynamically significant stenosis. Reading Location: [facility] CC: Dr. Jeremy Gerard, DO; No Primary Care Physician Chief Of Surgery: Signed Normal [facility] Serum creatinine measurement (mass/volume)Ordered By: Jeremy Gerard on 10-22-2024 Creatinine [Mass/Vol] 0.97 mg/dL 0.70-1.20 [facility] Serum glucose measurement (m ass/volume)Ordered By: Jeremy Gerard on 10-22-2024 Glucose [Mass/Vol] 79 mg/dL 70-99 [facility] Serum or plasma calcium mykel urement (mass/volume)Ordered By: Jeremy Gerard on 10-22-2024 Calcium [Mass/Vol] 9.3 mg/dL 7.6-11.0 [facility] Serum or plasma urea nitroge n measurement (mass/volume)Ordered By: Jeremy Gerard on 10-22-2024 Urea nitrogen [Mass/Vol] 12 mg/dL 4-19 [facility] Sodium levelOrdered By: Jeremy Gerard on 10-22-2024 Sodium [Moles/Vol] 139 mmol/L 133-145 [facility] Troponin T.cardiac [Mass/vol ume] in Serum or Plasma by High sensitivity methodOrdered By: Jeremy Gerard on 10-22-2024 Troponin T.cardiac High sensitivity method [Mass/Vol] < 6 ng/L <14 [facility] Troponin T.cardiac High sensitivity method [Mass/Vol] 7 ng/L <14 [facility] White blood cell (WBC) count Ordered By: Jeremy Gerard on 10-22-2024 WBC (Bld) [#/Vol] 6.4 10*3/uL 4.4-11.0 [facility] ([id number]) 1985 F Date Time Provider Department 10/15/24 KIRBY MONGE During your visit today, we recorded the following information about you: Unruly Gonzalez RN 10/16/2024 8:24 AM Addendum Cody Santana (Dimas: [id number]) PA Need Help? Call us at Outcome Approved on October 15 by [place] [employer] 2016 Your PA request for [id number] was approved for 180 days. The PA# assigned is [id number]. NURTEC ODT 75 MG TABLET Effective Date: 10/27/2024 Authorization Expiration Date: 04/24/2025 Drug Nurtec 75MG dispersible tablets Form [place] Medicaid Talko Electronic PA Form (2016 NCPDP) Allergies As [...] Status:Closed by UNRULY GONZALEZ on 10/15/24 Normal [facility] Re-Evaluation - PT (1)on Re-Evaluation - PT (1) [facility] Physical Therapy [facility] [place] [address] / REEVALUATION / MEDICARE RECERTIFICATION PHYSICAL THERAPY MR#: [id number] Acct: [id number] Name: CODY SANTANA Rep #: [id number] : 1985 38 From: Lucy Irene PT, Cert. MDT Referring Dr.: ALONZO Infante Status:REG RCR Insurance: [facility] Re-Evaluation Intro: ALONZO Infante, It [...] do not hesitate to contact me at [phone] by phone or if you have questions or concerns regarding this new plan of care! Sincerely, Lucy Irene, PT, Cert MDT 10/14/241952 CC: ALONZO Infante; No Primary Care Physician SABINE Signed For Medicare only, by signing this I certify the plan of care. Physicians Signature Date Normal [facility] Emergency Department Summary on 09-22-2024 Emergency Department Summary [facility] Medical Records Department [address] [place] [address] Emergency Department Summary 09/22/24 MR#: [id number] Acct: [id number] Name: CODY SANTANA Rep #: [id number] : 1985 38 From: Shilo Dunne DO [...] intact Psych: Cooperative, appropriate mood and affect [facility] Medical History Lumbar pain with radiation down right leg Dental caries Brain TIA Dysarthria Chronic migraine Anxiety and depression History of venous thromboembolism Obesity Tobacco use History of nephrolithiasis Chronic neck and back pain Factor 5 Leiden mutation, heterozygous Home Medications ???Medication ???Instructions ???Recorded ???Last Taken ???Type medroxyprogesterone 150 mg/mL 150 mg IM .[id number] control 01/30/15 Unknown History intramuscular syringe topiramate [...] Reaction Status Date / Time acetaminophen (From [place]) Allergy Itching Verified 09/07/24 11:33 hydrocodone (From [place]) Allergy Itching Verified 09/07/24 11:33 oxycodone (From [...] other details (more content not included)... Normal [facility] Wrist min 3 Viewson 09-23-19 Wrist min 3 Views [facility] Services [address] [place] [address] Wrist min 3 Views MR#: [id number] Acct: [id number] Name: CODY SANTANA Rep #: [id number] : 1985 F 38 From: Jacob Bee PCP: Care Physician,No Primary Status: REG ER Study: Wrist min 3 Views Date of Exam: 09/22/24 Exam# [id number] Ordering Dr: Shilo Dunne DO EXAM: Right wrist radiographs CLINICAL HISTORY: Pain COMPARISON: None TECHNIQUE: Three views of the right wrist FINDINGS: See impression RAD/Wrist min 3 Views IMPRESSION: Negative for acute displaced fracture or dislocation. No significant arthropathy. Reading Location: [facility] CC: Dr. Shilo Dunne DO; No Primary Care Physician Chief Of Surgery: Signed Normal [facility] Inital Evaluation (1) - PTon 09-11-2024 Inital Evaluation (1) - PT [facility] [address] [place] [address] [address] [place] [address] / REHABILITATION SERVICES INITIAL EVALUATION MR#: [id number] Acct: [id number] Name: CODY SANTANA Rep #: [id number] : 1985 38 From: Lucy Irene PT Cert. MDT Referring Dr.: ALONZO Infante Status: REG RCR Insurance: [facility] Patient's Visit Information Visit Information Visit Information: [...] AND STRENGTHENING. HEP INSTRUCTION. 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 CURRENTLY NOT OFF WORK BUT IS ON [...] loss: flex (more content not included)... Normal [facility] Urgent Care Visit Reporton 0 09-07-2024 Urgent Care Visit Report [facility] [address], [address] [place], [place] [id number] OFFICE VISIT Date of Service: 09/07/24 MR#: [id number] Acct: [id number] Name: CODY SANTANA Rep #: [id number] : 1985 Provider: ISABEL Katz Age/Sex: 38/F Location: [facility] Status: Signed Intake Vital Signs 08/21/24 09:16 [...] Pain scale (1-10): 5 Allergies acetaminophen (From [place]) Allergy (Verified 09/07/24 11:33) Itching hydrocodone (From [place]) Allergy (Verified 09/07/24 11:33) Itching oxycodone (From Percocet) Adverse Reaction (Intermediate, Verified 09/07/24 11:33) Itching cephalexin monohydrate (From Keflex) Adverse Reaction (Verified 09/07/24 11:33) WEAKNESS, MUSCLE ACHES Medications ???Medication ???Instructions ???Recorded ???Confirmed ???Type medroxyprogesterone 150 mg/mL 150 mg IM .[id number] control 01/30/15 09/07/24 History intramuscular syringe topiramate [...] pain -yesterday was shopping and 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 Normal [facility] CNOVon 08-28-2024 CNOV Office Visit (CVAKPO ) CODY SANTANA ([id number]) 1985 F Date Time Provider Department 08/28/24 11:30 AM CHARLINE WOOTEN During your visit today, we recorded the following information about you: Weight Height 89.4 kg 1.6 m Charline Wooten APRN.ROLLING MACHINE OPERATOR AUTOMATIC 08/28/2024 12:12 PM Signed [facility] Established [...] right facial weakness and was admitted to [facility]. As per the patient, stroke was [...] was laying down to go to bed. Childs like prior episodes. No issues getting up [...] lovenox then consideration of going to xarelto. [facility] vascular -unsure of next appt with Vascular [...] disintegrating tab (more content not included)... Normal [facility] Urgent Care Visit Reporton 0 08-23-2024 Urgent Care Visit Report [facility] [address], [address] [place] [address] OFFICE VISIT Date of Service: 08/23/24 MR#: [id number] Acct: [id number] Name: CODY SANTANA Rep #: [id number] : 1985 Provider: ALONZO Infante Age/Sex: 38/F Location: [facility] Status: Signed Intake Vital Signs 08/17/24 15:56 08/21/24 09:16 08/23/24 08:59 Height 5 ft 3 in 5 ft 3 in BP 120/82 H Position Sitting Pulse 73 Temp 97.8 F Temp Source Oral Pulse Oximetry (%) 97 Oxygen Delivery Method room air Intake Visit Reasons: ED FU LOWER BACK INJURY/SARA SERVICES Accompanied by: Other Family Allergies acetaminophen (From [place]) Allergy (Verified 08/23/24 09:06) Itching hydrocodone (From [place]) Allergy (Verified 08/23/24 09:06) Itching oxycodone (From Percocet) Adverse Reaction (Intermediate, Verified 08/23/24 09:06) Itching cephalexin monohydrate (From Keflex) Adverse Reaction (Verified 08/23/24 09:06) WEAKNESS, MUSCLE ACHES Medications ???Medication ???Instructions ???Recorded ???Confirmed ???Type medroxyprogesterone 150 mg/mL 150 mg IM .[id number] control 01/30/15 08/23/24 History intramuscular syringe topiramate [...] spasm Nurse's Note: Patient here for a [facility] ER f/u. Patient states its her lower back and left hip. [facility] Medical History Lumbar pain [...] that she bent over to try to pick up truck driver the front of the piece of equipment and felt immediate pain in her back. The next day she went to the ER to be evaluated and was given [place] as well as lidocaine patches. Patient denies [...] ROS Const (more content not included)... 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 There was a lip in the floor [...] that helps. She did not try any hxyx-eix-uqesogp medications. She cannot take NSAIDs because she is on Eliquis for history of factor V Leiden and blood clots. She has no history of back surgery. She has no saddle anesthesia or bladder bowel incontinence. [facility] Medical History Lumbar pain with radiation down right leg Dental caries Brain TIA Dysarthria Chronic migraine Anxiety and depression History of venous thromboembolism Obesity Tobacco use History of nephrolithiasis Chronic neck and back pain Factor 5 Leiden mutation, heterozygous Home Medications ???Medication ???Instructions ???Recorded ???Last Taken ???Type medroxyprogesterone 150 mg/mL 150 mg IM .[id number] control 01/30/15 Unknown History intramuscular syringe topiramate [...] Reaction Status Date / Time acetaminophen (From [place]) Allergy Itching Verified 08/17/24 15:56 hydrocodone (From [place]) Allergy Itching Verified 08/17/24 15:56 oxycodone (From [...] no gallop. (more content not included)... [facility] Office Visit (UCWSTR ) CODY SANTANA ([id number]) 1985 F Date Time Provider Department 07/29/24 7:15 PM JEOVANY JOSEPH [facility] During your visit today, we recorded the following information about you: Temperature Pulse Respiration Blood pressure 98.5 degrees 90/minute 16/minute 110/72 Weight 92 kg Jeovany Joseph PA-C 07/29/2024 8:03 PM Signed This note was created using KupiKupon. 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 Patient demonstrates reduced range of motion in [...] [M25.531] Order(s):XR WRIST GENERAL 3V PA/LAT/OBL RIGHT [[id number]] Order #: [id number] #:[id number] Prescriptions as of 07/29/2024 - amoxicillin (AMOXIL) 500 mg capsule Take 500 mg by mouth three times a day. - enoxaparin (LOVENOX) 100 mg/mL syrg Inject 0.9 mL subcutaneously every 12 hours. - rimegepant (NURTEC ODT) 75 mg disintegrating tablet Take 1 tablet by mouth (more content not included)... Normal [facility] XR WRIST 3V PA/LAT/OBL RTon 07-29-2024 [...] chronic. No findings suspicious for acute fracture. Chief Of Surgery: [facility] Transcribe Date/Time: Jul 29 2024 7:54P Dictated by : JEOVANY ORTEGA MD This examination was interpreted and the report reviewed and electronically signed by: JEOVANY ORTEGA MD on Jul 29 2024 7:56PM EST [id number] Normal [facility] XR Wrist - right PA and Late ral and Obliqueon 07-29-2024 IMPRESSION: Well-defined bony density posterior to the lunate appears chronic. No findings suspicious for acute fracture. Chief Of Surgery: [facility] Transcribe Date/Time: Jul 29 2024 7:54P Dictated [...] chronic. No findings suspicious for acute fracture. Chief Of Surgery: [facility] Transcribe Date/Time: Jul 29 2024 7:54P Dictated by : JEOVANY ORTEGA MD This examination was interpreted and the report reviewed and electronically signed by: JEOVANY ORTEGA MD on Jul 29 2024 7:56PM [facility] Radiology Study observation (narrative) [facility] XR Wrist - right PA and Late ral and ObliqueOrdered By: Ccf Provider on 07-29-2024 [facility] CNOVon 07-18-2024 CNOV Office Visit (UCWSTR ) CODY SANTANA ([id number]) 1985 F Date Time Provider Department 07/18/24 2:00 PM [facility] During your visit today, we recorded the following information about you: Temperature Pulse Respiration Blood pressure 99 degrees 92/minute 22/minute 106/70 Weight 92 kg Neli Redd, STRUCTURAL ANALYST.KOLE 07/18/2024 2:34 PM Signed This note was created using NoteWriter. Sarath Cody Santana is a 38 year old [...] is provided by the patient. No foreign languages department chair was used. Cough This is a new [...] 100% BMI (more content not included)... [facility] Telephone (UCWSTR) CODY SANTANA ([id number]) 1985 F Date Time Provider Department 07/18/24 NELI REDD [facility] During your visit today, we recorded the following information about you: Neli Redd APRN.ROLLING MACHINE OPERATOR AUTOMATIC 07/18/2024 3:04 PM Signed CXR negative Strep negative Please advise patient Inderjit Ontievros MA 07/18/2024 4:16 PM Signed Patient notified. [...] Status:Closed by INDERJIT ONTIVEROS on 07/18/24 Normal [facility] STREP A MOLECULAR (POC)on Procedural Control Valid [facility] Strep A (POCT) Negative Negative [facility] XR CHEST 2V FRONTAL/LATon XR CHEST [...] is seen. IMPRESSION: No acute radiographic abnormality. Chief Of Surgery: [facility] Transcribe Date/Time: Jul 18 2024 3:00P Dictated by : LUCERO MITCHELL MD This examination was interpreted and the report reviewed and electronically signed by: LUCERO MITCHELL MD on Jul 18 2024 3:01PM EST [id number] Normal [facility] XR Chest PA and Lateralon IMPRESSION: No acute radiographic abnormality. Chief Of Surgery: [facility] Transcribe Date/Time: Jul 18 2024 3:00P Dictated [...] hardware is seen. DIVISION OF RADIOLOGY Provider, [facility] - 07/18/2024 * * *Final Report* [...] seen. IMPRESSION IMPRESSION: No acute radiographic abnormality. Chief Of Surgery: [facility] Transcribe Date/Time: Jul 18 2024 3:00P Dictated by : LUCERO MITCHELL MD This examination was interpreted and the report reviewed and electronically signed by: LUCERO MITCHELL MD on Jul 18 2024 3:01PM EST [facility] Radiology Study observation (narrative) [facility] XR Chest PA and LateralOrder ed By: Ccf Provider on 07-18-2024 [facility] CNPNon 07-14-2024 CNPN Telephone (HEMAWS) CODY SANTANA ([id number]) 1985 F Date Time Provider Department 07/14/24 [...] Status:Closed by VICTOR MANUEL HORN on 07/15/24 [facility] 06-27-2024 [facility] Telephone (UCTR) CODY SANTANA ([id number]) 1985 F Date Time Provider Department 06/27/24 LES MCKEON [facility] During your visit today, we recorded the following information about you: Les Mckeon APRN.ROLLING MACHINE OPERATOR AUTOMATIC 06/27/2024 7:25 AM Signed Please inform patient [...] Signed Patient active MyChart. Patient notified via Strava message. Cody Riley MA Allergies As of [...] Encounter Status:Closed by CODY RILEY on 06/27/24 Normal [facility] CNOVon 06-26-2024 CNOV Office Visit (UCWSTR ) CODY SANTANA ([id number]) 1985 F Date Time Provider Department 06/26/24 4:15 PM JEOVANY JOSEPH [facility] During your visit today, we recorded the following information about you: Temperature Pulse Respiration Blood pressure 99.1 degrees 88/minute 21/minute 100/70 Weight 94.7 kg Jeovany Joseph PA-C 06/26/2024 4:33 PM Signed This note was created using KupiKupon. Subjective Cody Santana is a 38 year [...] AND RSV PCR, ROUTINE [SQCVFLRS] Order #: [id number]. #:[id number] Prescriptions as of 06/26/2024 - amoxicillin (AMOXIL) [...] MOUTH ONCE (more content not included)... Normal [facility] COVID AND INFLUENZA A/B AND RSV PCR, ROUTINEon 06-26-2024 SARS-CoV-2 (COVID-19) RNA LA+probe Ql (Unsp spec) SARS-COV-2 (AGENT OF COVID-19) RNA: Detected INFLUENZA A RNA: Not detected INFLUENZA B RNA: Not detected RESPIRATORY SYNCYTIAL VIRUS (RSV) RNA: Not detected Abnormal [facility] Comment on above: Performed By: #### C VFLRS ####[facility] LABCLIA [id number] [place] [address] [place] BETA 2 GLYCOPROTEIN, IGGon 0 06-21-2024 Beta 2 glycoprotein 1 IgG IA Qn <9 Normal <20 [facility] Comment on above: Order Comment: Speci men Type: BLOOD SPECIMENOrdering Facility: [facility] Address: [address] [place] [address] Result Comment: <20 SGU Negative 20-80 SGU Low Positive >80 SGU High Positive These results were obtained with the Inova QUANTA Lite B2 GPI IgG ANIKA. B2 GPI IgG values obtained with different manufacturers' assay methods may not be used interchangeably. The magnitude of the reported IgG levels cannot be correlated to an endpoint titer. Performed By: #### B ROLAN GOVEA CARDIG [facility], 5076-5 ####[facility] LABIA [id number] [place] [address] [place] BETA 2 GLYCOPROTEIN, IGMon 0 06-21-2024 Beta 2 glycoprotein 1 IgM IA Qn <9 Normal <20 [facility] Comment on above: Order Comment: Speci men Type: BLOOD SPECIMENOrdering Facility: [facility] Address: [address] [place] [address] Result Comment: <20 SMU Negative 20-80 SMU Low Positive >80 SMU High positive These results were obtained with the Inova QUANTA Lite B2 GPI IgM ANIKA. B2 GPI IgM values obtained with different manufacturers' assay methods may not be used interchangeably. The magnitude of the reported IgM levels cannot be correlated to an endpoint titer. Performed By: #### B ROLAN GOVEA CARDIG [facility], 5076-5 ####[facility] LABSOUTHWESTERN [facility] [id number] [address] OF [place] CARDIOLIPIN IGG ABSon 2024 Cardiolipin IgG IA Qn (S) <9.0 Normal <15.0 [facility] Comment on above: Order Comment: Speci men Type: BLOOD SPECIMENOrdering Facility: [facility] Address: [address] [place] [address] Result Comment: <15 GPL Negative 15-20 GPL Indeterminate >20 GPL Positive The following results were obtained with the Inova QUANTA Lite DESTINY IgG III ANIKA. Cardiolipin IgG values obtained with the different manufacturers' assay methods may not be used interchangeably. The magnitude of the reported IgG levels cannot be correlated to an endpoint titer. Performed By: #### B ROLAN GOVEA CARDIG, CARDI, 5076-5 ####[facility] [facility] [id number] [place] [address] [place] CARDIOLIPIN IGM ABSon 2024 Cardiolipin IgM IA Qn (S) 10.8 MPL Normal <12.5 [facility] Comment on above: Order Comment: Speci men Type: BLOOD SPECIMENOrdering Facility: [facility] Address: [address] [place] [address] Result Comment: <12. 5 MPL Negative 12.5-20 [...] By: #### B ROLAN GOVEA CARDIG, CARDI, 5076-5 ####[facility] [id number] [place] [address] [place] Cardiolipin IgA Ser IA-aCnco n 06-21-2024 Cardiolipin IgA IA Qn (S) <9.0 Normal <12.0 [facility] Comment on above: Order Comment: Modestoi men Type: BLOOD SPECIMENOrdering Facility: [facility] Address: [address] [place] [address] Result Comment: <12 APL Negative 12-20 APL Indeterminate >20 APL Positive The following results were obtained with the Inova QUANTA Lite DESTINY IgA III ANIKA. Cardiolipin IgA values obtained with the different manufacturers' assay methods may not be used interchangeably. The magnitude of the reported IgA levels cannot be correlated to an endpoint titer. Performed By: #### B ROLAN GOVEA CARDIG, CARDIM, 5076-5 ####[facility] [id number] [place] [address] [place] LUPUS PANELon 01-10-2025 ANTI XA HZ + DOAC 0.23 High <0.10 [facility] Comment on above: Order Comment: Speci men Type: BLOOD SPECIMENOrdering Facility: [facility] Address: [address] [place] [address] Performed By: #### L [id number], LUPPL ####[facility]CLIA [id number] [place] [address] [place] aPTT Coag (Bld) [Time] 34.3 s Normal 24.0-35.1 [facility] Comment on above: Order Comment: Speci men Type: BLOOD SPECIMENOrdering Facility: [facility] Address: [address] [place] [address] Performed By: #### L [id number], LUPPL ####[facility] [id number] [place] [address] [place] APTT SCRN HZ + DOAC 32.9 Normal 24.0-35.1 [facility] Comment on above: Order Comment: Speci men Type: BLOOD SPECIMENOrdering Facility: [facility] Address: [address] [place] [address] Performed By: #### L [id number], LUPPL ####[facility] [id number] [place] [address] [place] Coagulation factor X activated act Coag Qn (PPP) 0.85 High <0.10 [facility] Comment on above: Order Comment: Speci men Type: BLOOD SPECIMENOrdering Facility: [facility] Address: [address] [place] [address] Result Comment: This test was developed, and its performance characteristics determined by the [facility] Department of Pathology and Laboratory Medicine. It has not been cleared or approved by the FDA. The [facility] Department of Pathology and Laboratory Medicine is regulated under CLIA as qualified to perform high-complexity testing. This test is used for clinical purposes. It should not be regarded as investigational or for research. Performed By: #### L [id number], LUPPL ####[facility] [id number] [place] [address] [place] Thrombin time Coag (PPP) [Time] 18.5 seconds Normal <18.6 [facility] Comment on above: Order Comment: Speci men Type: BLOOD SPECIMENOrdering Facility: [facility] Address: [address] [place] [address] Performed By: #### L [id number], LUPPL ####[facility] [id number] [place] [address] [place] THROMBIN TIME HZ + DOAC 18.2 Normal <18.6 [facility] Comment on above: Order Comment: Speci men Type: BLOOD SPECIMENOrdering Facility: [facility] Address: [address] [place] [address] Performed By: #### L [id number], LUPPL ####[facility]CLIA [id number] [place] [address] [place] LUPUS PANEL INTERPon 025 Lupus anticoagulant (PPP) [Interp] Normal [facility] Comment on above: Order Comment: Speci men Type: BLOOD SPECIMENOrdering Facility: [facility] Address: [address] [place] [address] Result Comment: Linh hughesal - see comment [...] DRVVT and PNP. Performed By: #### L [id number], LUPPL ####[facility]IA [id number] [address] Pathologist name Reviewed by Maye Melo MD, PhD Normal [facility] Comment on above: Order Comment: Zachariah pena Type: BLOOD SPECIMENOrdering Facility: [facility] Address: [address] [place] [address] Performed By: #### L [id number], LUPPL ####[facility] [id number] [place] PT panel Coag (PPP)on 2024 INR Coag (PPP) [Relative time] 1.0 {INR} Normal 0.9-1.3 [facility] Comment on above: Order Comment: Zachariah pena Type: BLOOD SPECIMENOrdering Facility: [facility] Address: [address] [place] [address] Result Comment: Marcia min K Antagonist (VKA) Therapeutic Range: INR 2 to 3 (Target INR of 2.5) Note: For patients treated with VKA drugs, such as warfarin, the [place] [employer] 2012 Guideline recommends [...] GH, et al. Chest 2012, 141:7S-47S Larisa MCDONALD, et al. [facility] 2017, 70: 252-289 Performed By: #### 1 4979-9, 74857-1 ####[facility] [id number] [place] [address] [place] PT Coag (PPP) [Time] 10.7 s Normal <13.1 [facility] Comment on above: Order Comment: Zachariah pena Type: BLOOD SPECIMENOrdering Facility: [facility] Address: [address] [place] [address] Performed By: #### 1 4979-9, 86463-0 ####[facility] [id number] [place] [address] [place] aPTT PPPon 06-21-2024 aPTT Coag (PPP) [Time] 27.9 s Normal 23.0-32.4 [facility] Comment on above: Order Comment: Zachariah pena Type: BLOOD SPECIMENOrdering Facility: [facility] Address: [address] [place] [address] Performed By: #### 1 4979-9, 44133-6 ####[facility] [id number] [place] [address] [place] Urgent Care Visit Reporton 0 06-19-2024 Urgent Care Visit Report [facility] [address], [address] [place] [address] OFFICE VISIT Date of Service: 06/19/24 MR#: [id number] Acct: [id number] Name: CODY SANTANA Rep #: [id number] : 1985 Provider: ALONZO Escoto Age/Sex: 38/F Location: [facility] Status: Signed Intake Vital Signs 03/05/24 07:48 [...] Pain scale (1-10): 4 Allergies acetaminophen (From [place]) Allergy (Verified 06/19/24 11:38) Itching hydrocodone (From [place]) Allergy (Verified 06/19/24 11:38) Itching oxycodone (From Percocet) Adverse Reaction (Intermediate, Verified 06/19/24 11:38) Itching cephalexin monohydrate (From Kef[place]) Adverse Reaction (Verified 06/19/24 11:38) WEAKNESS, MUSCLE ACHES Medications ???Medication ???Instructions ???Recorded ???Confirmed ???Type medroxyprogesterone 150 mg/mL 150 mg IM .[id number] control 01/30/15 06/19/24 History intramuscular syringe topiramate [...] tablet 10 mg PO .DAILY AM allergies 10/04/23 01/08/25 History famotidine 40 mg tablet 40 mg [...] about 2 days. Patient states it crusty. [facility] Medical History Lumbar pain [...] may have the same again today. No xclk-kor-izllqws topical or oral medications tried to assist. No complaints of fever, chills, sweats. No other associated symptoms and no other alleviating/aggravating factors. ROS Const Constitutional: Positive for other (as above) Exam Const General: cooperative, healthy appearing and no acute distress Orientation: alert and awake HENMT Head: normal to inspection Ears: external ears normal Nose (more content not included)... Normal [facility] 06-12-2024 [facility] Telephone (HEMDANIEL) CODY SANTANA ([id number]) 1985 F Date Time Provider Department 06/12/24 [...] with patient and also sent instructions via Strava. PSS- please schedule a lab appointment for [...] [D68.62] Order(s):LUPUS ANTICOAG PL [SQLUPUSP] Order #: [id number] FUTURE enoxaparin (LOVENOX) 100 mg/mL syrgInject 0.9 [...] Encounter Status:Closed by NATALIE MANCIA on 06/13/24 [facility] CNOVS Visit (SP) Office (HEMAWS) CODY SANTANA ([id number]) 1985 F Date Time Provider Department 05/31/24 [...] outlined below. DVT left leg diagnosed somewhere [id number]. Anticoagulated for several months. Multiple PEs. Anticoagulated [...] early to have tested positive for . [facility]. On Depo-Provera since about 2015. Was admitted to [facility] in August of this year for TIA. [...] of a lower extremity duplex ultrasound at [facility] from 08/07/2020 showing partial compressibility with [...] No extremity (more content not included)... Normal [facility] D dimer FEU PPP-ncon 05-31 Fibrin D-dimer FEU (PPP) [Mass/Vol] 210 ng/mL FEU Normal <500 [facility] Comment on above: Order Comment: Speci men Type: BLOOD SPECIMENOrdering Facility: [facility] Address: [address] [place], [place] [address] [address] Result Comment: Sanford lopez Plasma Aliquot Performed By: #### 4 8065-7 ####[facility]RADHA [id number] [id number] [id number] [place] CNOVon 05-24-2024 CNOV Office Visit (UCWSTR ) CODY SANTANA ([id number]) 1985 F Date Time Provider Department 05/24/24 11:15 AM LES MCKEON [facility] During your visit today, we recorded the following information about you: Temperature Pulse Respiration Blood pressure 98.1 degrees 74/minute 16/minute 115/78 Weight 95 kg Les Mckeon APRN.ROLLING MACHINE OPERATOR AUTOMATIC 05/24/2024 12:08 PM Signed Subjective HPI Nontoxic-appearing [...] surgeries or fractures previously. Is not . Wpahr-xuiu-gvpbpylk. Past medical history prescription medications allergies reviewed. [...] as needed. (more content not included)... Normal [facility] XR SHLDR >/=3V AP/SHIV AP/OTH R [...] cervical spine. IMPRESSION: No acute osseous abnormality. Chief Of Surgery: PSCB Transcribe Date/Time: May 24 2024 11:57A Dictated by : CRYSTAL SCHAFFER DO This examination was interpreted and the report reviewed and electronically signed by: CRYSTAL SCHAFFER DO on May 24 2024 11:58AM EST [id number] Normal [facility] XR Shoulder - right 3 Viewso n 05-24-2024 IMPRESSION: No acute osseous abnormality. Chief Of Surgery: PSCB Transcribe Date/Time: May 24 2024 11:57A [...] the cervical spine. DIVISION OF RADIOLOGY Provider, [facility] - 05/24/2024 * * *Final Report* * * DATE OF EXAM: May 24 2024 11:55AM WOX [id number] - XR SHLDR >/=3V AP/HSIV AP/OTHR RT / PROCEDURE REASON: Injury of [...] spine. IMPRESSION IMPRESSION: No acute osseous abnormality. Chief Of Surgery: PSCB Transcribe Date/Time: May 24 2024 11:57A Dictated by : CRYSTAL SCHAFFER DO This examination was interpreted and the report reviewed and electronically signed by: CRYSTAL SCHAFFER DO on May 24 2024 11:58AM EST [facility] Radiology Study observation (narrative) [facility] XR Shoulder - right 3 ViewsO rdered By: [facility]cf [facility] on [facility]20[facility] ([id number]) 1985 F Date Time Provider Department 04/30/24 [facility] During your visit today, we recorded the following information about you: Unruly Gonzalez RN 04/30/2024 12:01 PM Signed Cody Santana (Dimas: [id number]) - [id number] Nurtec 75MG dispersible tablets status: PA Request Created: April 29, 2024 [id number] Sent: April 30, 2024 Unruly Gonzalez RN 04/30/2024 3:19 PM Signed Cody Santana (Dimas: [id number]) - [id number] Nurtec 75MG dispersible tablets status: PA Response - Approved Created: April 29, 2024 [id number] Sent: April 30, 2024 Allergies As of [...] Status:Closed by UNRULY GONZALEZ on 04/30/24 [facility] - [facility] 4 Viewson IMPRESSION: No acute abnormality Chief Of Surgery: PSCB Transcribe Date/Time: Apr 10 2024 8:15P Dictated by : YON HURD MD This examination was interpreted and the report reviewed and electronically signed by: YON HURD MD on Apr 10 2024 8:16PM [facility] DIVISION OF RADIOLOGY * * *Final Report* [...] No joint effusion. DIVISION OF RADIOLOGY Provider, [facility] - 04/10/2024 * * *Final Report* [...] joint effusion. IMPRESSION IMPRESSION: No acute abnormality Chief Of Surgery: PSCB Transcribe Date/Time: Apr 10 2024 8:15P Dictated by : YON HURD MD This examination was interpreted and the report reviewed and electronically signed by: YON HURD MD on Apr 10 2024 8:16PM EST [facility] Radiology Study observation (narrative) [facility] XR Knee - left 4 ViewsOrdere d By: Ccf Provider on 04-10-2024 [facility] XR Chest PA and Lateralon IMPRESSION: No acute radiographic abnormality. Chief Of Surgery: LUDIVINA Transcribe Date/Time: Mar 28 2024 7:53P Dictated by : LUCINA WING MD This examination was interpreted and the report reviewed and electronically signed by: LUCINA WING MD on Mar 28 2024 7:54PM [facility] DIVISION OF RADIOLOGY * * *Final Report* [...] the cervicothoracic junction. DIVISION OF RADIOLOGY Provider, [facility] - 03/28/2024 * * *Final Report* [...] junction. IMPRESSION IMPRESSION: No acute radiographic abnormality. Chief Of Surgery: PSCB Transcribe Date/Time: Mar 28 2024 7:53P Dictated by : LUCINA WING MD This examination was interpreted and the report reviewed and electronically signed by: LUCINA WING MD on Mar 28 2024 7:54PM EST [facility] Radiology Study observation (narrative) [facility] XR Chest PA and LateralOrder ed By: Ccf Provider on 03-28-2024 [facility] CNOVon 02-28-2024 CNOV Office Visit (CVAKPO ) CODY SANTANA ([id number]) 1985 F Date Time Provider Department 02/28/24 11:00 AM CHARLINE WOOTEN During your visit today, we recorded the following information about you: Pulse Blood pressure Weight Height 84/minute 110/73 90.3 kg 1.6 m Charline Wooten APRN.ROLLING MACHINE OPERATOR AUTOMATIC 02/28/2024 12:44 PM Signed [facility] Established [...] right facial weakness and was admitted to [facility]. As per the patient, stroke was [...] was laying down to go to bed. Childs like prior episodes. No issues getting up [...] months lovenox then consideration of going to [facility]. [facility] vascular -unsure of next appt with Vascular [...] (LAMICTAL) 20 (more content not included)... [facility] [facility] Office Visit (NYASIAPO ) CODY SANTANA ([id number]) 1985 F Date Time Provider Department 10/25/23 10:00 AM ELIZABETH MARQUES During your visit today, we recorded the following information about you: Pulse Blood pressure Weight Height 85/minute 109/73 90.7 kg 1.6 m Elizabeth Marques MD 11/13/2023 2:34 PM [facility] Initial Visit Consultation is requested by: Janet Fernandez [address] [facility] [address] PCP: To use this Smartlink, specify the [...] right facial weakness and was admitted to [facility]. As per the patient, stroke was [...] side Coordination: Rapid alternating movements symmetric bilaterally. Tystqj-qp-fila, without dysmetria bilaterally. Gait: Narrow-based, normal spaced and stable without assistance LABS Cholesterol: No results found for: CHOL No results found for: LDL No results found for: HDL No results found for: TG Diabetes: No results found for: "HBA1C" IMAGING MRI brain: mild bilateral white matter changes (more content not included)... Normal [facility] 10-25-2023 [facility] Telephone (CVAKPO) CODY SANTANA ([id number]) 1985 F Date Time Provider Department 10/25/23 ELIZABETH MARQUES During your visit today, we recorded the following information about you: Shanda Parikh 10/25/2023 10:57 AM Signed Submitted through portal Consult to Hematology/Oncology #[id number], to be scheduled in [facility] Shanda Parikh 10/30/2023 11:37 AM Signed Received through portal Consult to Hematology/Oncology #[id number], patient has been scheduled 11/14/23 with Paty Arciniega in the [facility] Allergies As of Date: 10/25/2023 Noted [...] Encounter Status:Closed by SHANDA PARIKH on 10/25/23 [facility] Absolute lymphocyte countOrd ered By: Bridgett Ponce on 08-30-2023 Lymphocytes Auto (Unsp spec) [#/Vol] 2.48 10*3/uL 0.83-4.51 [facility] Automated lymphocyte count a s percentage of total leukocytesOrdered By: Bridgett Ponce on 08-30-2023 Lymphocytes/100 WBC Auto (Unsp spec) 44.5 % 19-41 [facility] Basophil percentageOrdered B y: Bridgett Ponce on 08-30-2023 Basophils/100 WBC (Bld) 0.7 % 0-1 [facility] Bilirubin [Mass/Vol] 0.30 mg/dL 0.20-1.00 [facility] Comment on above: For patients on eltr ombopag therapy, use of [facility] TBIL is not recommended. Chloride [Moles/Vol] 118 mmol/L 98-107 [facility] Eosinophils/100 WBC (Bld) 3.6 % 0-5 [facility] Glucose [Mass/Vol] 111 mg/dL 74-106 [facility] Comment on above: Fasting Glucose resu lt from 100 to 125 mg/dL suggests IMPAIRED HOMEOSTASIS per A.D.A. criteria. Hemoglobin (Bld) [Mass/Vol] 11.5 g/dL 12.0-15.0 [facility] Monocytes/100 WBC (Bld) 8.1 % 0-10 [facility] Neutrophils (Bld) [#/Vol] 2.4 10*3/uL 2.0-7.7 [facility] Neutrophils/100 WBC (Bld) 42.9 % 47-70 [facility] Potassium [Moles/Vol] 3.4 mmol/L 3.5-5.1 [facility] Protein [Mass/Vol] 6.4 g/dL 6.4-8.2 [facility] Sodium [Moles/Vol] 143 mmol/L 136-145 [facility] WBC (Bld) [#/Vol] 5.6 10*3/uL 4.4-11.0 [facility] Determination of erythrocyte mean corpuscular volume (MCV)Ordered By: Bridgett Rosario on 08-30-2023 MCV (RBC) [Entitic vol] 93.3 fL 81-99 [facility] Erythrocyte distribution wid th ratioOrdered By: [facility] Rosario on 08-30-2023 Erythrocyte distribution width (RBC) [Ratio] 13.4 % 11.6-14.6 [facility] Erythrocyte distribution wid th standard deviationOrdered By: [facility] Rosario on 08-30-2023 Erythrocyte distribution width (RBC) [Entitic vol] 46.0 fL 35.1-43.9 [facility] Hematocrit Auto (Bld) [Volum e fraction]Ordered By: [facility] Rosario on 08-30-2023 Hematocrit (Bld) [Volume fraction] 34.8 % 37-47 [facility] Immature granulocytes/100 WB C Auto (Bld)Ordered By: [facility] Rosario on 08-30-2023 Immature granulocytes/100 WBC (Bld) 0.200 % 0.0-0.9 [facility] Comment on above: IG% - Immature Granu locytes (promyelocytes, myelocytes and metamyelocytes) > 1% indicates that a LEFT SHIFT is Present. Laboratory - Chemistry and C hemistry - challengeOrdered By: [facility] Rosario on 08-30-2023 Albumin/Globulin [Mass ratio] 0.9 {ratio} 0.9-2.4 [facility] ALP [Catalytic activity/Vol] 51 U/L 45-117 [facility] ALT [Catalytic activity/Vol] 18 U/L 13-56 [facility] CO2 [Moles/Vol] 18.0 mmol/L 21.0-32.0 [facility] Globulin (S) [Mass/Vol] 3.3 g/dL 2.2-4.2 [facility] Urea nitrogen/Creatinine [Mass ratio] 10.2 mg/mg 10-20 [facility] Laboratory - Hematology and Cell countsOrdered By: Bridgett Ponce on 08-30-2023 MCH (RBC) [Entitic mass] 30.8 pg 27.0-32.0 [facility] MCHC (RBC) [Mass/Vol] 33.0 g/dL 32-36 [facility] Nucleated RBC/100 WBC (Bld) [Ratio] 0 % 0-5 [facility] Platelet mean volume (Bld) [Entitic vol] 9.9 fL 6.2-12.0 [facility] Platelets (Bld) [#/Vol] 180 10*3/uL 150-450 [facility] No Panel InformationOrdered By: Bridgett Ponce on 08-30-2023 Estimated Creatinine Clearance Calc 94.09 ml/min [facility] Estimated GFR (MDRD) Amer 93 mL/min >60 [facility] Comment on above: GFR Calc Estimated GFR (MDRD) Non-Af Amer 77 mL/min >60 [facility] Comment on above: Non- GFR Calc RBC Auto (Bld) [#/Vol]Ordere d By: Bridgett Ponce on 08-30-2023 RBC (Bld) [#/Vol] 3.73 10*6/uL 4.2-5.4 [facility] Serum or plasma calcium mykel urement (mass/volume)Ordered By: Bridgett Ponce on 08-30-2023 Calcium [Mass/Vol] 8.7 mg/dL 8.5-10.1 [facility] Serum or plasma creatinine m easurement (mass/volume)Ordered By: Bridgett Ponce on 08-30-2023 Creatinine [Mass/Vol] 0.88 mg/dL 0.55-1.02 [facility] Comment on above: The validity of the calculated GFR & GFRAA in patients over 70 years has not been determined. Clinical correlation is essential. Serum or plasma thyroid stim ulating hormone (TSH) measurement (units/volume)Ordered By: Bridgett Ponce on 08-30-2023 TSH Qn 1.17 uIU/mL 0.358-3.74 [facility] Serum or plasma urea nitroge n measurement (mass/volume)Ordered By: Bridgett Ponce on 08-30-2023 Urea nitrogen [Mass/Vol] 9 mg/dL 7-18 [facility] Thin prep Papanicolaou smear with manual screeningOrdered By: Bridgett Rosario on 08-30-2023 Thin prep Papanicolaou smear with manual screening 3.1 g/dL 3.2-5.0 [facility] Thin prep Papanicolaou smear with manual screening 18 U/L 15-37 [facility] Thin prep Papanicolaou smear with manual screening 7 5-15 [facility] Whole blood hemoglobin A1c/t otal hemoglobin ratio (mass fraction)Ordered By: Bridgett Rosario on 08-30-2023 HbA1c (Bld) [Mass fraction] 5.1 % 3.8-5.6 [facility] Comment on above: Normal < 5.7 % Predi abetic 5.7 - 6.4 % Diabetic >or= 6.5 % Please note range changes. Absolute lymphocyte countOrd ered By: Axel Kaur on 08-29-2023 Lymphocytes Auto (Unsp spec) [#/Vol] 3.10 10*3/uL 0.83-4.51 [facility] Activated partial thrombopla stin time (aPTT) in platelet poor plasma by coagulation aOrdered By: Axel Kaur on 08-29-2023 aPTT Coag (PPP) [Time] 31.1 s 24.1-36.2 [facility] Automated lymphocyte count a s percentage of total leukocytesOrdered By: Axel Kaur on 08-29-2023 Lymphocytes/100 WBC Auto (Unsp spec) 42.1 % 19-41 [facility] Basophil percentageOrdered B y: Axel Kaur on 08-29-2023 Basophils/100 WBC (Bld) 0.8 % 0-1 [facility] Chloride [Moles/Vol] 113 mmol/L 98-107 [facility] Eosinophils/100 WBC (Bld) 1.9 % 0-5 [facility] Glucose [Mass/Vol] 92 mg/dL 74-106 [facility] Hemoglobin (Bld) [Mass/Vol] 11.9 g/dL 12.0-15.0 [facility] Monocytes/100 WBC (Bld) 5.7 % 0-10 [facility] Neutrophils (Bld) [#/Vol] 3.6 10*3/uL 2.0-7.7 [facility] Neutrophils/100 WBC (Bld) 49.4 % 47-70 [facility] Potassium [Moles/Vol] 3.4 mmol/L 3.5-5.1 [facility] Sodium [Moles/Vol] 142 mmol/L 136-145 [facility] WBC (Bld) [#/Vol] 7.4 10*3/uL 4.4-11.0 [facility] Determination of erythrocyte mean corpuscular volume (MCV)Ordered By: Axeldonovan Kaur on 08-29-2023 MCV (RBC) [Entitic vol] 93.6 fL 81-99 [facility] Erythrocyte distribution wid th ratioOrdered By: [facility] on 08-29-2023 Erythrocyte distribution width (RBC) [Ratio] 13.3 % 11.6-14.6 [facility] Erythrocyte distribution wid th standard deviationOrdered By: [facility] Erythrocyte distribution width (RBC) [Entitic vol] 45.8 fL 35.1-43.9 [facility] Hematocrit Auto (Bld) [Volum e fraction]Ordered By: Axeldonovan Kaur on 08-29-2023 Hematocrit (Bld) [Volume fraction] 36.4 % 37-47 [facility] Immature granulocytes/100 WB C Auto (Bld)Ordered By: Axeldonovan Kaur on 08-29-2023 Immature granulocytes/100 WBC (Bld) 0.100 % 0.0-0.9 [facility] Comment on above: IG% - Immature Granu locytes (promyelocytes, myelocytes and metamyelocytes) > 1% indicates that a LEFT SHIFT is Present. Laboratory - Chemistry and C hemistry - challengeOrdered By: Bridgett Ponce on 08-29-2023 Magnesium [Mass/Vol] 2.1 mg/dL 1.6-2.6 [facility] Laboratory - Chemistry and C hemistry - challengeOrdered By: Axeldonovan Kaur on 08-29-2023 CO2 [Moles/Vol] 23.0 mmol/L 21.0-32.0 [facility] Urea nitrogen/Creatinine [Mass ratio] 9.6 mg/mg 10-20 [facility] Laboratory - CoagulationOrde red By: Axel Kaur on 08-29-2023 INR Coag (Bld) [Relative time] 1.2 {INR} [facility] PT Coag (PPP) [Time] 15.2 s 11.7-14.9 [facility] Laboratory - Hematology and Cell countsOrdered By: Axel Kaur on 08-29-2023 MCH (RBC) [Entitic mass] 30.6 pg 27.0-32.0 [facility] MCHC (RBC) [Mass/Vol] 32.7 g/dL 32-36 [facility] Nucleated RBC/100 WBC (Bld) [Ratio] 0 % 0-5 [facility] Platelet mean volume (Bld) [Entitic vol] 9.7 fL 6.2-12.0 [facility] Platelets (Bld) [#/Vol] 192 10*3/uL 150-450 [facility] No Panel InformationOrdered By: Axel Kaur on 08-29-2023 Troponin I High Sensitivity 6 pg/mL 3.0-54.0 [facility] Comment on above: Please Note: [place] Units and Gender Specific Reference Ranges. For more information see Policy Stat Procedure [facility] High Sensitivity Troponin (TNIH) and attachments. Estimated Creatinine Clearance Calc 86.66 ml/min [facility] Estimated GFR (MDRD) Amer 87 mL/min >60 [facility] Comment on above: GFR Calc Estimated GFR (MDRD) Non-Af Amer 72 mL/min >60 [facility] Comment on above: Non- GFR Calc No Panel InformationOrdered By: Bridgett Ponce on 08-29-2023 Ethyl Alcohol Level < 3.0 mg/dL [facility] Comment on above: The serum:whole bloo d ethanol ratio is approximately 1.14and varies slightly with hematocrit. Medical Alcohol reference interval and critical value innon-tolerant individuals; 50 - 100 Impairment 100 Intoxication 100 - 250 Severe Poisoning 250 - 400 Deep/possible fatal coma RBC Auto (Bld) [#/Vol]Ordere d By: Axel Kaur on 08-29-2023 RBC (Bld) [#/Vol] 3.89 10*6/uL 4.2-5.4 [facility] Serum or plasma calcium mykel urement (mass/volume)Ordered By: Axel Kaur on 08-29-2023 Calcium [Mass/Vol] 9.0 mg/dL 8.5-10.1 [facility] Serum or plasma creatinine m easurement (mass/volume)Ordered By: Axeldonovan Kaur on 08-29-2023 Creatinine [Mass/Vol] 0.94 mg/dL 0.55-1.02 [facility] Comment on above: The validity of the calculated GFR & GFRAA in patients over 70 years has not been determined. Clinical correlation is essential. Serum or plasma urea nitroge n measurement (mass/volume)Ordered By: Axel Kaur on 08-29-2023 Urea nitrogen [Mass/Vol] 9 mg/dL 12-27 [facility] Thin prep Papanicolaou smear with manual screeningOrdered By: [facility] on 08-29-[facility]23 Thin prep Papanicolaou smear with manual screening 6 10-24 [facility] Laboratory - Microbiology an d Antimicrobial susceptibilityon 05-22-2023 S. pyogenes Ag IA Ql (Unsp spec) Negative [facility] MRI BRAIN WO/W IVCONon 05-16 MRI BRAIN WO/W IVCON * * *Final Report* * * DATE OF EXAM: May 16 2023 4:13PM [facility] 0295 - MRI BRAIN WO/W IVCON [...] May 16 2023 5:10PM EST [id number] Normal [facility] No Panel Informationon 04-25 POC SARS CoV-2 Antigen Negative [facility] Absolute lymphocyte countOrd ered By: Bridgett Rosario on 03-16-2023 Lymphocytes Auto (Unsp spec) [#/Vol] 3.21 10*3/uL 0.83-4.51 [facility] Basophil percentageOrdered B y: Rosario on 03-16-2023 Basophils/100 WBC (Bld) 0.6 % 0-1 [facility] Bilirubin [Mass/Vol] 0.30 mg/dL 0.20-1.00 [facility] Comment on above: For patients on eltr ombopag therapy, use of Dimension [facility] TBIL is not recommended. Chloride [Moles/Vol] 116 mmol/L 98-107 [facility] Cholesterol [Mass/Vol] 134 mg/dL <200 [facility] Comment on above: <200 mg/dL Desirable 200-240 mg/dL Borderline >240 mg/dL High Risk Eosinophils/100 WBC (Bld) 2.4 % 0-5 [facility] Glucose [Mass/Vol] 89 mg/dL 74-106 [facility] Neutrophils (Bld) [#/Vol] 2.2 10*3/uL 2.0-7.7 [facility] Neutrophils/100 WBC (Bld) 36.4 % 47-70 [facility] Potassium [Moles/Vol] 3.2 mmol/L 3.5-5.1 [facility] Protein [Mass/Vol] 6.9 g/dL 6.4-8.2 [facility] Sodium [Moles/Vol] 142 mmol/L 136-145 [facility] Triglyceride [Mass/Vol] 59 mg/dL <199 [facility] Comment on above: The drugs N-Acetylcy steine and Metamizole may falsely depress this assay.Serum Triglycerides Reference Interval Normal <150 mg/dL Borderline high 150 - 199 mg/dL High 200 - 499 mg/dL Very High > or = 500 mg/dL WBC (Bld) [#/Vol] 6.2 10*3/uL 4.4-11.0 [facility] Blood erythrocytes count (nu mber/volume)Ordered By: Bridgett Ponce on 03-16-2023 RBC (Bld) [#/Vol] 3.61 10*6/uL 4.2-5.4 [facility] Blood hemoglobin measurement (mass/volume)Ordered By: Bridgett Ponce on 03-16-2023 Hemoglobin (Bld) [Mass/Vol] 11.1 g/dL 12.0-15.0 [facility] Blood lymphocytes/100 leukoc ytesOrdered By: Rosario on 03-16-2023 Lymphocytes/100 WBC (Bld) 52.0 % 19-41 [facility] Blood monocytes/100 leukocyt esOrdered By: Rosario on 03-16-2023 Monocytes/100 WBC (Bld) 8.4 % 0-10 [facility] Blood platelet mean volumeOr dered By: Bridgett White on 03-16-2023 Platelet mean volume (Bld) [Entitic vol] 10.3 fL 6.2-12.0 [facility] Determination of erythrocyte mean corpuscular volume (MCV)Ordered By: Bridgett Ponce on 03-16-2023 MCV (RBC) [Entitic vol] 94.7 fL 81-99 [facility] Hematocrit Auto (Bld) [Volum e fraction]Ordered By: Bridgett Rosario on 03-16-2023 Hematocrit (Bld) [Volume fraction] 34.2 % 37-47 [facility] Laboratory - Chemistry and C hemistry - challengeOrdered By: [facility] Rosario on 03-16-2023 ALP [Catalytic activity/Vol] 54 U/L 45-117 [facility] ALT [Catalytic activity/Vol] 18 U/L 13-56 [facility] CO2 [Moles/Vol] 21.0 mmol/L 21.0-32.0 [facility] Globulin (S) [Mass/Vol] 3.6 g/dL 2.2-4.2 [facility] Urea nitrogen/Creatinine [Mass ratio] 17.3 mg/mg 10-20 [facility] Laboratory - Hematology and Cell countsOrdered By: [facility] Rosario on 03-16-2023 Erythrocyte distribution width (RBC) [Entitic vol] 49.1 fL 35.1-43.9 [facility] Erythrocyte distribution width (RBC) [Ratio] 14.0 % 11.6-14.6 [facility] Immature granulocytes/100 WBC (Bld) 0.200 % 0.0-0.9 [facility] Comment on above: IG% - Immature Granu locytes (promyelocytes, myelocytes and metamyelocytes) > 1% indicates that a LEFT SHIFT is Present. MCH (RBC) [Entitic mass] 30.7 pg 27.0-32.0 [facility] Nucleated RBC/100 WBC (Bld) [Ratio] 0 % 0-5 [facility] MCHC Auto (RBC) [Mass/Vol]Or dered By: Bridgett Ponce on 03-16-2023 MCHC (RBC) [Mass/Vol] 32.5 g/dL 32-36 [facility] No Panel InformationOrdered By: Bridgett Rosario on 03-16-2023 Estimated Creatinine Clearance Calc 79.43 ml/min [facility] Estimated GFR (MDRD) Amer 103 mL/min >60 [facility] Comment on above: GFR Calc Estimated GFR (MDRD) Non-Af Amer 85 mL/min >60 [facility] Comment on above: Non- GFR Calc Thyroid Stimulating Hormone (TSH) 0.92 uIU/mL 0.358-3.74 [facility] Platelets bldOrdered By: Breanna Ponce on 03-16-2023 Platelets (Bld) [#/Vol] 180 10*3/uL 150-450 [facility] Serum or plasma albumin mykel urement (mass/volume)Ordered By: Bridgett Ponce on 03-16-2023 Albumin [Mass/Vol] 3.3 g/dL 3.2-5.0 [facility] Serum or plasma albumin/glob ulin mass ratioOrdered By: Bridgett Ponce on 03-16-2023 Albumin/Globulin [Mass ratio] 0.9 {ratio} 0.9-2.4 [facility] Serum or plasma calcium mkyel urement (mass/volume)Ordered By: Bridgett Ponce on 03-16-2023 Calcium [Mass/Vol] 8.3 mg/dL 8.5-10.1 [facility] Serum or plasma cholesterol in HDL measurement (mass/volume)Ordered By: Bridgett Ponce on 03-16-2023 Cholesterol in HDL [Mass/Vol] 33 mg/dL >40 [facility] Comment on above: The drugs N-Acetylcy steine and Metamizole may falsely depress this assay. Reference Range HDL <40 mg/dL Low HDL Cholesterol HDL >or= 60 mg/dL High HDL Cholesterol Serum or plasma cholesterol in VLDL measurement (mass/volume)Ordered By: Bridgett Ponce on 03-16-2023 Cholesterol in VLDL [Mass/Vol] 12 mg/dL 5-40 [facility] Serum or plasma creatinine m easurement (mass/volume)Ordered By: Bridgett Ponce on 03-16-2023 Creatinine [Mass/Vol] 0.81 mg/dL 0.55-1.02 [facility] Comment on above: The validity of the calculated GFR & GFRAA in patients over 70 years has not been determined. Clinical correlation is essential. Serum or plasma low density lipoprotein (LDL) cholesterol measurement (mass/volume)Ordered By: Bridgett Ponce on 03-16-2023 Cholesterol in LDL [Mass/Vol] 89 mg/dL 0-130 [facility] Serum or plasma urea nitroge n measurement (mass/volume)Ordered By: Bridgett Rosario on 03-16-2023 Urea nitrogen [Mass/Vol] 14 mg/dL 7-18 [facility] Thin prep Papanicolaou smear with manual screeningOrdered By: Bridgett Rosario on 03-16-2023 Thin prep Papanicolaou smear with manual screening 10 U/L 15-37 [facility] Thin prep Papanicolaou smear with manual screening 5 5-15 [facility] Whole blood hemoglobin A1c/t otal hemoglobin ratio (mass fraction)Ordered By: Bridgett Rosario on 03-16-2023 HbA1c (Bld) [Mass fraction] 5.2 % 3.8-5.6 [facility] Comment on above: Normal < 5.7 % Predi abetic 5.7 - 6.4 % Diabetic >or= 6.5 % Please note range changes. Absolute lymphocyte countOrd ered By: Jeremy Le on 03-15-2023 Lymphocytes Auto (Unsp spec) [#/Vol] 2.26 10*3/uL 0.83-4.51 [facility] Basophil percentageOrdered B y: Jeremy Gerard on 03-15-2023 Basophil percentage 0-5 SEEN /hpf 0-5 [facility] Basophils/100 WBC (Bld) 0.6 % 0-1 [facility] Chloride [Moles/Vol] 112 mmol/L 98-107 [facility] Eosinophils/100 WBC (Bld) 0.9 % 0-5 [facility] Glucose [Mass/Vol] 106 mg/dL 74-106 [facility] Comment on above: Fasting Glucose resu lt from 100 to 125 mg/dL suggests IMPAIRED HOMEOSTASIS per A.D.A. criteria. Neutrophils (Bld) [#/Vol] 4.1 10*3/uL 2.0-7.7 [facility] Neutrophils/100 WBC (Bld) 59.0 % 47-70 [facility] Potassium [Moles/Vol] 3.0 mmol/L 3.5-5.1 [facility] Sodium [Moles/Vol] 140 mmol/L 136-145 [facility] WBC (Bld) [#/Vol] 6.9 10*3/uL 4.4-11.0 [facility] Bilirubin Test strip Ql (U)O rdered By: Jeremy Gerard on 03-15-2023 Bilirubin Ql (U) Negative Negative [facility] Blood erythrocytes count (nu mber/volume)Ordered By: Jeremy Gerard on 03-15-2023 RBC (Bld) [#/Vol] 3.98 10*6/uL 4.2-5.4 [facility] Blood hemoglobin measurement (mass/volume)Ordered By: Jeremy Gerard on 03-15-2023 Hemoglobin (Bld) [Mass/Vol] 12.3 g/dL 12.0-15.0 [facility] Blood lymphocytes/100 leukoc ytesOrdered By: Jeremy Gerard on 03-15-2023 Lymphocytes/100 WBC (Bld) 32.9 % 19-41 [facility] Blood monocytes/100 leukocyt esOrdered By: Jeremy Gerard on 03-15-2023 Monocytes/100 WBC (Bld) 6.3 % 0-10 [facility] Blood platelet mean volumeOr dered By: Jeremy Gerard on 03-15-2023 Platelet mean volume (Bld) [Entitic vol] 10.2 fL 6.2-12.0 [facility] Culture, urineOrdered By: Sanya Gerard on 03-15-2023 Bacteria identified Cx Nom (U) Positive [facility] Determination of erythrocyte mean corpuscular volume (MCV)Ordered By: Jeremy Gerard on 03-15-2023 MCV (RBC) [Entitic vol] 94.5 fL 81-99 [facility] Hematocrit Auto (Bld) [Volum e fraction]Ordered By: Jeremy Gerard on 03-15-2023 Hematocrit (Bld) [Volume fraction] 37.6 % 37-47 [facility] INR in Blood by Coagulation assayOrdered By: Jeremy Gerard on 03-15-2023 INR Coag (Bld) [Relative time] 1.2 {INR} [facility] Ketones Test strip Ql (U)Ord ered By: Jeremy Gerard on 03-15-2023 Ketones Ql (U) Negative Negative [facility] Laboratory - Chemistry and C hemistry - challengeOrdered By: Jeremy Gerard on 03-15-2023 CO2 [Moles/Vol] 23.0 mmol/L 21.0-32.0 [facility] Urea nitrogen/Creatinine [Mass ratio] 11.4 mg/mg 10-20 [facility] Laboratory - Chemistry and C hemistry - challengeOrdered By: Bridgett Ponce on 03-15-2023 Magnesium [Mass/Vol] 2.3 mg/dL 1.6-2.6 [facility] Laboratory - CoagulationOrde red By: Jeremy Gerard on 03-15-2023 aPTT Coag (Bld) [Time] 33.7 s 24.1-36.2 [facility] PT Coag (PPP) [Time] 15.5 s 11.7-14.9 [facility] Laboratory - Drug toxicology Ordered By: Jeremy Gerard on 03-15-2023 Amphetamines Ql (U) Negative <1000 ng/mL [facility] Benzodiazepines Ql (U) Negative < 200 ng/mL [facility] Cannabinoids Screen Ql (U) Negative < 50 ng/mL [facility] Cocaine Ql (U) Negative < 300 ng/mL [facility] Opiates Ql (U) Negative < 300 ng/mL [facility] Laboratory - Hematology and Cell countsOrdered By: Jeremy Gerard on 03-15-2023 Erythrocyte distribution width (RBC) [Entitic vol] 47.6 fL 35.1-43.9 [facility] Erythrocyte distribution width (RBC) [Ratio] 13.7 % 11.6-14.6 [facility] Immature granulocytes/100 WBC (Bld) 0.300 % 0.0-0.9 [facility] Comment on above: IG% - Immature Granu locytes (promyelocytes, myelocytes and metamyelocytes) > 1% indicates that a LEFT SHIFT is Present. MCH (RBC) [Entitic mass] 30.9 pg 27.0-32.0 [facility] Nucleated RBC/100 WBC (Bld) [Ratio] 0 % 0-5 [facility] MCHC Auto (RBC) [Mass/Vol]Or dered By: Jeremy Gerard on 03-15-2023 MCHC (RBC) [Mass/Vol] 32.7 g/dL 32-36 [facility] Mucus LM Ql (Urine sed)Order ed By: Jeremy Gerard on 03-15-2023 Mucus Ql (Urine sed) 0 SEEN /hpf [facility] Nitrite Test strip Ql (U)Ord ered By: Jeremy Gerard on 03-15-2023 Nitrite Ql (U) Negative Negative [facility] No Panel InformationOrdered By: Jeremy Gerard on 03-15-2023 Ethyl Alcohol Level < 3.0 mg/dL [facility] Comment on above: The serum:whole bloo d ethanol ratio is approximately 1.14and varies slightly with hematocrit. Medical Alcohol reference interval and critical value innon-tolerant individuals; 50 - 100 Impairment 100 Intoxication 100 - 250 Severe Poisoning 250 - 400 Deep/possible fatal coma MDMA (Ecstasy) Screen Negative < 500 ng/mL [facility] Urine Barbiturates Screen Negative < 200 ng/mL [facility] Urine Drug Screen Comment [facility] Comment on above: CONFIRMATORY TESTING FOR ALL [...] Methadone Screen Negative < 300 ng/mL [facility] Estimated Creatinine Clearance Calc 73.11 ml/min [facility] Estimated GFR (MDRD) Amer 94 mL/min >60 [facility] Comment on above: GFR Calc Estimated GFR (MDRD) Non-Af Amer 77 mL/min >60 [facility] Comment on above: Non- GFR Calc Troponin I High Sensitivity 6 pg/mL 3.0-54.0 [facility] Comment on above: Please Note: [place] Units and Gender Specific Reference Ranges. For more information see Policy Stat Procedure [facility] High Sensitivity Troponin (TNIH) and attachments. Platelets bldOrdered By: Edis Gerard on 03-15-2023 Platelets (Bld) [#/Vol] 192 10*3/uL 150-450 [facility] Protein Test strip Ql (U)Ord ered By: Jeremy Gerard on 03-15-2023 Protein Ql (U) Negative Negative [facility] Serum or plasma calcium mykel urement (mass/volume)Ordered By: Jeremy Gerard on 03-15-2023 Calcium [Mass/Vol] 9.4 mg/dL 8.5-10.1 [facility] Serum or plasma creatinine m easurement (mass/volume)Ordered By: Jeremy Gerard on 03-15-2023 Creatinine [Mass/Vol] 0.88 mg/dL 0.55-1.02 [facility] Comment on above: The validity of the calculated GFR & GFRAA in patients over 70 years has not been determined. Clinical correlation is essential. Serum or plasma lamotrigine measurement (mass/volume)Ordered By: Bridgett Ponce on 03-15-2023 lamoTRIgine [Mass/Vol] 3.0 ug/mL 2.0-20.0 [facility] Comment on above: Detection Limit = 1. 0Performed at: [facility] [id number] Director: Raul Arboleda MD, Phone: [phone] Serum or plasma urea nitroge n measurement (mass/volume)Ordered By: Jeremy Gerard on 03-15-2023 Urea nitrogen [Mass/Vol] 10 mg/dL 7-18 [facility] Squamous epithelial cells de tection in urine sediment by light microscopyOrdered By: Jeremy Gerard on 03-15-2023 Epithelial cells.squamous LM Ql (Urine sed) 5-10 SEEN /hpf 5-10 [facility] Thin prep Papanicolaou smear with manual screeningOrdered By: Jeremy Gerard on 03-15-2023 Thin prep Papanicolaou smear with manual screening 5 5-15 [facility] Urine blood detectionOrdered By: Jeremy Gerard on 03-15-2023 RBC Ql (U) Negative Negative [facility] RBC Ql (U) 0 SEEN /hpf 0-5 [facility] Urine clarityOrdered By: Edis Gerard on 03-15-2023 Clarity (U) Clear Clear [facility] Urine color determinationOrd ered By: Jeremy Gerard on 03-15-2023 Color (U) Yellow Yellow [facility] Urine glucose detectionOrder ed By: Jeremy Gerard on 03-15-2023 Glucose Ql (U) Normal mg/dl Normal [facility] Urine leukocyte esterase det ection by dipstickOrdered By: Jeremy Gerard on 03-15-2023 Leukocyte esterase Test strip Ql (U) 100 /ul Negative [facility] Urine pHOrdered By: Jeremy Gerard on 03-15-2023 pH (U) 7.0 [pH] 5.0 - 8.0 [facility] Urine phencyclidine (PCP) de tectionOrdered By: Jeremy Gerard on 03-15-2023 Phencyclidine Ql (U) Negative < 25 ng/mL [facility] Urine sediment bacteria coun t by microscopy (number/high power field)Ordered By: Jeremy Gerard on 03-15-2023 Bacteria LM.HPF (Urine sed) [#/Area] 0 /[HPF] None Seen [facility] Urine specific gravity measu rementOrdered By: Jeremy Gerard on 03-15-2023 Specific gravity (U) [Rel density] 1.010 1.002-1.030 [facility] Urobilinogen Auto test strip Ql (U)Ordered By: Jeremy Gerard on 03-15-2023 Urobilinogen Ql (U) Normal mg/dl Normal [facility] .Auto Diffon 12-08-2022 Basophil, Absolute 0.0 10 3/mcL Normal 0.0-0.2 [facility] ([place]) Comment on above: Performed By: #### C CONSUELO NOWAK ANEU #### [address] [address] Basophils/100 WBC (Bld) 0.3 % Normal 0.0-2.5 Pending Sale To [facility] ([place]) Comment on above: Performed By: #### C CONSUELO NOWAK ANEU #### [address] [address] Eosinophil, Absolute 0.0 10 3/mcL Normal 0.0-0.4 [facility] ([place]) Comment on above: Performed By: #### C CONSUELO NOWAK ANEU #### [address] [address] Eosinophils/100 WBC (Bld) 0.2 % Normal 0.0-7.0 [facility] ([place]) Comment on above: Performed By: #### C BC, ADIFF, ANEU #### [address] [address] Lymphocyte, Absolute 1.5 10 3/mcL Normal 0.8-3.9 [facility] ([place]) Comment on above: Performed By: #### C BC, ADIFF, ANEU #### [address] [address] Lymphocytes/100 WBC (Bld) 16.6 % Normal 10.0-50.0 Pending [facility] To [facility] ([place]) Comment on above: Performed By: #### C CONSUELO NOWAK, ANEU #### [address] [address] Monocyte, Absolute 0.7 10 3/mcL Normal 0.2-1.0 [facility] ([place]) Comment on above: Performed By: #### C CONSUELO NOWAK, ANEU #### [address] [address] Monocytes/100 WBC (Bld) 7.3 % Normal 1.7-13.0 [facility]ending [facility] ([place]) Comment on above: Performed By: #### C CONSUELO NOWAK, ANEU #### [address] [address] Neutrophils/100 WBC (Bld) 75.6 % Normal 37.0-80.0 [facility] ([place]) Comment on above: Performed By: #### C CONSUELO NOWAK, ANEU #### [address] [address] .GFRon 12-08-2022 GFR 84 ml/min/1.73sqm Normal P[facility] ([place]) Comment on above: Result Comment: GFR Population [...] Performed By: #### G , BMP #### [address] [address] GFR Non- 69 ml/min/1.73sqm Normal [facility] ([place]) Comment on above: Result Comment: GFR Population [...] Performed By: #### G , BMP #### [address] [address] .NEUABSon 12-08-2022 Neutrophil, Absolute 7.0 10 3/mcL High 2.9-6.2 [facility] ([place]) Comment on above: Performed By: #### C CONSUELO NOWAK, KELLY #### [address] [address] BMPon 12-08-2022 BUN/Creatinine Ratio 10 ratio Normal 7-27 [facility] ([place]) Comment on above: Performed By: #### G , BMP #### [address] [address] Calcium [Mass/Vol] 7.9 mg/dL Low 8.4-10.2 [facility] ([place]) Comment on above: Performed By: #### G , BMP #### [address] [address] Chloride [Moles/Vol] 109 mmol/L High 98-107 [facility] ([place]) Comment on above: Performed By: #### G , BMP #### [address] [address] CO2 [Moles/Vol] 21 mmol/L Low 22-29 [facility] ([place] Comment on above: Performed By: #### G , BMP #### [address] [address] Creatinine [Mass/Vol] 0.92 mg/dL Normal 0.55-1.02 [facility] ([place]) Comment on above: Performed By: #### G , BMP #### [address] [address] Electrolyte Balance 10.0 mEq/L Normal 4.0-15.0 [facility] ([place]) Comment on above: Performed By: #### G , BMP #### [address] [address] Glucose [Mass/Vol] 128 mg/dL High 70-105 [facility] ([place]) Comment on above: Performed By: #### G , BMP #### [address] [address] Potassium [Moles/Vol] 3.6 mmol/L Normal 3.5-5.1 [facility] ([place]) Comment on above: Performed By: #### Maddie PIERSON, BMP #### [address] [address] Sodium [Moles/Vol] 140 mmol/L Normal 136-145 [facility] ([place]) Comment on above: Performed By: #### G , BMP #### [address] [address] Urea nitrogen [Mass/Vol] 9 mg/dL Normal 7-18 [facility] ([place]) Comment on above: Performed By: #### G FR, BMP #### [address] [address] CBCon 12-08-2022 Erythrocyte distribution width (RBC) [Ratio] 13.5 % Normal 11.5-14.5 [facility] ([place]) Comment on above: Performed By: #### CONSUELO ANN ANEU #### [address] [address] Hematocrit (Bld) [Volume fraction] 33.8 % Low 37.0-47.0 [facility] ([place]) Comment on above: Performed By: #### CONSUELO ANN, ANEU #### [place] [address] [address] Hgb 11.3 G/dL Low 12.0-16.0 [facility] ([place]) Comment on above: Performed By: #### CONSUELO ANN ANEU #### [place] [address] [address] MCH (RBC) [Entitic mass] 31.3 pg High 27.0-31.2 P[facility] ([place]) Comment on above: Performed By: #### CONSUELO ANN ANEU #### [place] [address] [address] MCHC 33.3 G/dL Normal 33.0-37.0 P[facility] ([place]) Comment on above: Performed By: #### CONSUELO ANN ANEU #### [address] [address] MCV (RBC) [Entitic vol] 94.1 fL High 80.0-94.0 P[facility] ([place]) Comment on above: Performed By: #### CONSUELO ANN, ANEU #### [address] [address] Platelet 141 10 3/mcL Normal 130-400 Pending [facility] ([place]) Comment on above: Performed By: #### CONSUELO ANN, ANEU #### Augusto [address] [address] Platelet mean volume (Bld) [Entitic vol] 8.5 fL Normal 7.4-10.4 Pending Sale To [facility] ([place]) Comment on above: Performed By: #### CONSUELO ANN, ANEU #### Augusto [address] [address] RBC 3.59 10 6/mcL Low 4.20-5.40 Pending Sale To [facility] ([place]) Comment on above: Performed By: #### C CONSUELO NOWAK, KELLY #### [place] [place] [address] [place], [place] [address] WBC 9.2 10 3/mcL Normal 4.6-10.8 Pending Sale To [facility] ([place] Comment on above: Performed By: #### C CONSUELO NOWAK, KELLY #### [address] [place] [address] [place], [place] [address] LABORATORYOrdered By: Regis Sepulveda on 12-08-2022 Basophil, [...] Coag (Bld) [Time] 32.3 s Normal 25.0-35.0 [facility] ([place]) Comment on above: Result Comment: For Heparin anticoagulation therapy, the recommended therapeutic range is: 50.6-87.4 seconds. Patients on heparin therapy may have an extreme result. Performed By: #### P RO, APTT #### [place] [id number] Heparin dose (APTT) Unknown Normal [facility] ([place]) Comment on above: Performed By: #### P RO, APTT #### [address] [address] LABORATORYOrdered By: Regis Sepulveda on 12-07-2022 aPTT [...] HCG ( test) Ql (U) Negative Normal Pending Sale To [facility] ([place] Comment on above: Performed By: #### G FR, BMP #### [address] [address] test (u) int Not detected Invalid Interpretation Code Pending Sale To [facility] ([place] Comment on above: Performed By: #### G FR, BMP #### [address] [address] PROon 12-07-2022 PT Coag (PPP) [Time] 12.9 s Normal 9.1-14.2 [facility] ([place]) Comment on above: Order Comment: Short sample. Notified Surgery @12/07/2022 07:29:42 EDT BP Performed By: #### P RO, APTT #### [facility] [address] [place], [place] [address] PT International Ratio 1.1 Normal Critical access hospital) Comment on above: Order Comment: Short sample. Notified Surgery @12/07/2022 07:29:42 EDT BP Result Comment: The [place] [employer] (CHEST, 1992, 102:312S-25S) recommended therapeutic range for oral anticoagulant therapy is: LOW RISK: Prophylaxis of venous thrombosis INR: 2.0-3.0 Treatment of pulmonary embolism 2.0-3.0 Prevention of systemic embolism 2.0-3.0 HIGH RISK: Mechanical prosthetic valves 2.5-3.5 Performed By: #### P RO, APTT #### [facility] [address] [place], [place] [address] XR FLUORO 1-2 HRS TECH TIMEo n 12-07-2022 XR FLUORO 1-2 HRS TECH TIME ORIGINAL Images acquired, not reported on this accession number. Normal Pending Sale To [facility] ([place]) XR CHEST 2 VIEWSon 3 XR CHEST [...] Date: 11/29/2022 9:01:26 AM Ordering Provider: LES Koehler Pending Sale To [facility] ([place]) .Auto Diffon 11-25-2022 Basophil, Absolute 0.0 10 3/mcL Normal 0.0-0.2 Critical access hospital) Comment on above: Performed By: #### B MP, ADIFF, APTT, CBC, PRO, GFR, ANEU #### [address] [address] Basophils/100 WBC (Bld) 0.7 % Normal 0.0-2.5 Pending Sale To [facility] ([place] Comment on above: Performed By: #### B MP, ADIFF, APTT, CBC, PRO, GFR, ANEU #### [address] [address] Eosinophil, Absolute 0.1 10 3/mcL Normal 0.0-0.4 [facility] ([place]) Comment on above: Performed By: #### B MP, ADIFF, APTT, CBC, PRO, GFR, ANEU #### [address] [address] Eosinophils/100 WBC (Bld) 2.4 % Normal 0.0-7.0 Pending Sale To [facility] ([place] Comment on above: Performed By: #### B MP, ADIFF, APTT, CBC, PRO, GFR, ANEU #### [address] [address] Lymphocyte, Absolute 2.1 10 3/mcL Normal 0.8-3.9 [facility] ([place]) Comment on above: Performed By: #### B MP, ADIFF, APTT, CBC, PRO, GFR, ANEU #### [address] [address] Lymphocytes/100 WBC (Bld) 39.1 % Normal 10.0-50.0 Pending Sale To [facility] ([place] Comment on above: Performed By: #### B MP, ADIFF, APTT, CBC, PRO, GFR, ANEU #### [address] [address] Monocyte, Absolute 0.5 10 3/mcL Normal 0.2-1.0 [facility] ([place]) Comment on above: Performed By: #### B MP, ADIFF, APTT, CBC, PRO, GFR, ANEU #### [address] [address] Monocytes/100 WBC (Bld) 8.5 % Normal 1.7-13.0 Pending Sale To [facility] ([place] Comment on above: Performed By: #### B MP, ADIFF, APTT, CBC, PRO, GFR, ANEU #### [address] [address] Neutrophils/100 WBC (Bld) 49.3 % Normal 37.0-80.0 Pending Sale To [facility] ([place] Comment on above: Performed By: #### B MP, ADIFF, APTT, CBC, PRO, GFR, ANEU #### [address] [address] .GFRon 11-25-2022 GFR 92 ml/min/1.73sqm Normal Pending Sale To [facility] ([place]) Comment on above: Result Comment: GFR Population [...] Performed By: #### G FR, BMP #### [address] [address] GFR Non- 76 ml/min/1.73sqm Normal Pending Sale To [facility] ([place]) Comment on above: Result Comment: GFR Population [...] Performed By: #### G , BMP #### [address] [address] .NEUABSon 11-25-2022 Neutrophil, Absolute 2.6 10 3/mcL Low 2.9-6.2 [facility] ([place]) Comment on above: Performed By: #### B MP, ADIFF, APTT, CBC, PRO, GFR, ANEU #### [address] [address] APTTon 11-25-2022 aPTT Coag (Bld) [Time] 38.4 s High 25.0-35.0 [facility] ([place]) Comment on above: Result Comment: For Heparin anticoagulation therapy, the recommended therapeutic range is: 50.6-87.4 seconds. Patients on heparin therapy may have an extreme result. Performed By: #### Maddie PIERSON, CHASIDY #### [address] [address] Heparin dose (APTT) Unknown Normal [facility] ([place]) Comment on above: Performed By: #### Maddie PIERSON, CHASIDY #### [address] [address] BMPon 11-25-2022 BUN/Creatinine Ratio 14 ratio Normal 7-27 [facility] ([place]) Comment on above: Performed By: #### Maddie PIERSON, BMP #### [address] [address] Calcium [Mass/Vol] 8.9 mg/dL Normal 8.4-10.2 [facility] ([place]) Comment on above: Performed By: #### Maddie PIERSON, CHASIDY #### [address] [address] Chloride [Moles/Vol] 111 mmol/L High 98-107 [facility] ([place]) Comment on above: Performed By: #### G , BMP #### [address] [address] CO2 [Moles/Vol] 22 mmol/L Normal 22-29 Pending Sale To [facility] ([place] Comment on above: Performed By: #### G , BMP #### [address] [address] Creatinine [Mass/Vol] 0.85 mg/dL Normal 0.55-1.02 [facility] ([place]) Comment on above: Performed By: #### Maddie PIERSON, BMP #### [address] [address] Electrolyte Balance 11.0 mEq/L Normal 4.0-15.0 [facility] ([place]) Comment on above: Performed By: #### Maddie PIERSON, BMP #### [address] [address] Glucose [Mass/Vol] 83 mg/dL Normal 70-105 [facility] ([place]) Comment on above: Performed By: #### G , BMP #### [address] [address] Potassium [Moles/Vol] 4.0 mmol/L Normal 3.5-5.1 [facility] ([place]) Comment on above: Performed By: #### Maddie PIERSON, BMP #### [address] [address] Sodium [Moles/Vol] 144 mmol/L Normal 136-145 [facility] ([place]) Comment on above: Performed By: #### G FR, BMP #### [address] [address] Urea nitrogen [Mass/Vol] 12 mg/dL Normal 7-18 Pending Sale To [facility] ([place] Comment on above: Performed By: #### G FR, BMP #### [address] [address] CBCon 06-16-2023 Erythrocyte distribution width (RBC) [Ratio] 13.7 % Normal 11.5-14.5 Pending Sale To [facility] ([place]) Comment on above: Order Comment: Pre-A dmission Testing Performed By: #### B MP, ADIFF, APTT, CBC, PRO, GFR, ANEU #### [place] [address] Hematocrit (Bld) [Volume fraction] 38.9 % Normal 37.0-47.0 Pending Sale To [facility] ([place] Comment on above: Order Comment: Pre-A dmission Testing Performed By: #### B MP, ADIFF, APTT, CBC, PRO, GFR, ANEU #### [place] [address] Hgb 13.0 G/dL Normal 12.0-16.0 Pending Sale To [facility] ([place] Comment on above: Order Comment: Pre-A dmission Testing Performed By: #### B MP, ADIFF, APTT, CBC, PRO, GFR, ANEU #### [place] [address] MCH (RBC) [Entitic mass] 31.3 pg High 27.0-31.2 Pending Sale To [facility] ([place] Comment on above: Order Comment: Pre-A dmission Testing Performed By: #### B MP, ADIFF, APTT, CBC, PRO, GFR, ANEU #### [place] [address] MCHC 33.3 G/dL Normal 33.0-37.0 Pending Sale To [facility] ([place] Comment on above: Order Comment: Pre-A dmission Testing Performed By: #### B MP, ADIFF, APTT, CBC, PRO, GFR, ANEU #### [place] [address] MCV (RBC) [Entitic vol] 93.9 fL Normal 80.0-94.0 Pending Sale To [facility] ([place] Comment on above: Order Comment: Pre-A dmission Testing Performed By: #### B MP, ADIFF, APTT, CBC, PRO, GFR, ANEU #### [place] [address] Platelet 172 10 3/mcL Normal 130-400 Pending Sale To [facility] ([place] Comment on above: Order Comment: Pre-A dmission Testing Performed By: #### B MP, ADIFF, APTT, CBC, PRO, GFR, ANEU #### [address] [address] Platelet mean volume (Bld) [Entitic vol] 8.8 fL Normal 7.4-10.4 Pending Sale To [facility] ([place] Comment on above: Order Comment: Pre-A dmission Testing Performed By: #### B MP, ADIFF, APTT, CBC, PRO, GFR, ANEU #### [place] [address] RBC 4.14 10 6/mcL Low 4.20-5.40 Pending Sale To [facility] ([place] Comment on above: Order Comment: Pre-A dmission Testing Performed By: #### B MP, ADIFF, APTT, CBC, PRO, GFR, ANEU #### [place] [id number] WBC 5.3 10 3/mcL Normal 4.6-10.8 Pending Sale To [facility] ([place] Comment on above: Order Comment: Pre-A dmission Testing Performed By: #### B MP, ADIFF, APTT, CBC, PRO, GFR, ANEU #### [address] [address] LABORATORYOrdered By: Kwabena Corbett on 11-25-2022 aPTT [...] (PPP) [Time] 13.3 s Normal 9.1-14.2 [facility] ([place]) Comment on above: Performed By: #### G , BMP #### [place] [address] PT International Ratio 1.2 Normal [facility] ([place]) Comment on above: Result Comment: The [place] [employer] (CHEST, 1992, 102:312S-25S) recommended therapeutic range for oral anticoagulant therapy is: LOW RISK: Prophylaxis of venous thrombosis INR: 2.0-3.0 Treatment of pulmonary embolism 2.0-3.0 Prevention of systemic embolism 2.0-3.0 HIGH RISK: Mechanical prosthetic valves 2.5-3.5 Performed By: #### G , [facility] #### [place] [address] [place], [place] [address] Coronavirus 2019on 0 COVID 19 Result CLINICAL CARE MANAGER Normal Negative for COVID19 (SARS CoV2) by PCR. [facility] Comment on above: Result Comment: Nega tive for This test was developed and its performance characteristics determined by [facility]'s [facility] [place]. This test has been authorized by FDA [...] developed and its performance characteristics determined by [facility]'s [facility] and [facility] [place]. This test has been authorized by FDA [...] developed and its performance characteristics determined by [facility] [place]. This test has been authorized by FDA [...] 2019. Performed By: #### C OVID #### [facility] Reference [address] [place], [place] [address] Coronavirus 2019on 0 COVID 19 Source CLINICAL CARE MANAGER Normal [facility] Comment on above: Result Comment: Naso pharyngeal Corrected on 04/26 AT 0707: Previously reported as U Swab Corrected on 04/26 AT 0707: Previously reported as U Performed By: #### C OVID #### [facility] Reference [address] [place] [id number] GC/Chlamydia Amp, Uron 07-09 Chlamydia Amplif, Ur Normal [facility] Comment on above: Result Comment: Nega tive for For screening asymptomatic women, a vaginal swab specimen (APTIMA vaginal swab 119706) is optimal. Urine specimens have reduced sensitivity for Chlamydia trachomatis or Neisseria gonorrhoeae infection in female patients without symptoms. This test was developed and its performance characteristics determined by [facility] [place] ([facility] It has not been cleared or approved by the FDA. [facility] is regulated under CLIA as qualified to perform high complexity testing. This test is used for clinical purposes. It should not be regarded as investigational or for research. Chlamydia For screening asymptomatic women, a vaginal swab specimen (APTIMA vaginal swab 731851) is optimal. Urine specimens have reduced sensitivity for Chlamydia trachomatis or Neisseria gonorrhoeae infection in female patients without symptoms. This test was developed and its performance characteristics determined by [facility]'s [facility] [place] ([facility] It has not been cleared or approved by the FDA. [facility] is regulated under CLIA as qualified to perform high complexity testing. This test is used for clinical purposes. It should not be regarded as investigational or for research. trachomatis by For screening asymptomatic women, a vaginal swab specimen (APTIMA vaginal swab 673719) is optimal. Urine specimens have reduced sensitivity for Chlamydia trachomatis or Neisseria gonorrhoeae infection in female patients without symptoms. This test was developed and its performance characteristics determined by [facility]'s [facility] [place] ( [facility]). It has not been cleared or approved by the FDA. [facility] is regulated under CLIA as qualified to perform high complexity testing. This test is used for clinical purposes. It should not be regarded as investigational or for research. amplification. For screening asymptomatic women, a vaginal swab specimen (APTIMA vaginal swab 358416) is optimal. Urine specimens have reduced sensitivity for Chlamydia trachomatis or Neisseria gonorrhoeae infection in female patients without symptoms. This test was developed and its performance characteristics determined by [facility] [place] ( [facility]). It has not been cleared or approved by the FDA. [facility] is regulated under CLIA as qualified to perform high complexity testing. This test is used for clinical purposes. It should not be regarded as investigational or for research. Performed By: #### U GCCT #### [facility] Routine Lab [address] [place], [place] [address] GC Amplification, Ur NGNEG Normal [facility] Comment on above: Performed By: #### U GCCT #### [facility] Routine Lab [address] [place], [place] [address] Vital Signs Date Time Vital Sign Value Performing Clinician Facility 04-09-2025 17:46-0400 Body temperature 98.2 [degF] [employer] Work Phone: [place] [facility] 04-09-2025 17:46-0400 Diastolic blood pressure 78 mm[Hg] [employer] Work Phone: [place] [facility] 04-09-2025 17:46-0400 Heart rate 85 /min [employer] Work Phone: [place] [facility] 04-09-2025 17:46-0400 Respiratory rate 16 /min [employer] Work Phone: [place] [facility] 04-09-2025 17:46-0400 SaO2% (BldA) [Mass fraction] 96 % [employer] Work Phone: [facility] 04-09-2025 17:46-0400 Systolic blood pressure 130 mm[Hg] [employer] Work Phone: [facility] 04-02-2025 20:09-0400 Body temperature 98.2 [degF] [employer] Work Phone: [facility] 04-02-2025 20:09-0400 Diastolic blood pressure 60 mm[Hg] [employer] PA-C Work Phone: [facility] 04-02-2025 20:09-0400 Heart rate 90 /min [employer] PA-C Work Phone: [facility] 04-02-2025 20:09-0400 Respiratory rate 18 /min [employer] PA-C Work Phone: [facility] 04-02-2025 20:09-0400 SaO2% (BldA) [Mass fraction] 97 % [employer] PA-C Work Phone: [facility] 04-02-2025 20:09-0400 Systolic blood pressure 128 mm[Hg] Colton StoryWorth PA-C Work Phone: [facility] 04-02-2025 19:49-0400 Body mass index (BMI) [Ratio] 37.1 kg/m2 [employer] PA-C Work Phone: [facility] 04-02-2025 19:49-0400 Body weight 95.2 kg [employer] PA-C Work Phone: [facility] 04-02-2025 17:59-0400 Body height 160.02 cm [employer] PA-C Work Phone: [facility] 03-25-2025 15:47-0400 Body temperature 98.4 [degF] [employer] PA-C Work Phone: [facility] 03-25-2025 15:47-0400 Diastolic blood pressure 70 mm[Hg] [employer] PA-C Work Phone: [facility] 03-25-2025 15:47-0400 Heart rate 89 /min [employer] PA-C Work Phone: [facility] 03-25-2025 15:47-0400 SaO2% (BldA) [Mass fraction] 98 % [employer] PA-C Work Phone: [facility] 03-25-2025 15:47-0400 Systolic blood pressure 130 mm[Hg] Colton Hills PA-C Work Phone: [facility] 02-17-2025 12:42-0400 Body mass index (BMI) [Ratio] 34.95 kg/m2 Brian Sheldon MD Work Phone: [facility] 02-17-2025 12:42-0400 Body temperature 97.59 [degF] Brian Sheldon MD Work Phone: [facility] 02-17-2025 12:42-0400 Body weight 89.5 kg Brian Sheldon MD Work Phone: [facility] 02-17-2025 12:42-0400 Diastolic blood pressure 64 mm[Hg] Brian Sheldon MD Work Phone: [facility] 02-17-2025 12:42-0400 Heart rate 85 /min Brian Sheldon MD Work Phone: [facility] 02-17-2025 12:42-0400 Systolic blood pressure 110 mm[Hg] Brian Sheldon MD Work Phone: [facility] 01-30-2025 10:54-0400 Body temperature 97.9 [degF] Jarrod ROSADO Work Phone: [facility] 01-30-2025 10:54-0400 Diastolic blood pressure 88 mm[Hg] Jarrod ROSADO Work Phone: [facility] 01-30-2025 10:54-0400 Heart rate 91 /min Jarrod ROSADO Work Phone: [facility] 01-30-2025 10:54-0400 Respiratory rate 16 /min Jarrod ROSADO Work Phone: [facility] 01-30-2025 10:54-0400 SaO2% (BldA) [Mass fraction] 98 % Jarrod ROSADO Work Phone: [facility] 01-30-2025 10:54-0400 Systolic blood pressure 110 mm[Hg] Jarrodtaran Acosta PA Work Phone: [facility] 01-30-2025 09:29-0400 Body height 160.02 cm Jarrod Dave PA Work Phone: [facility] 01-30-2025 09:29-0400 Body mass index (BMI) [Ratio] 35.5 kg/m2 Jarrod Dave PA Work Phone: [facility] 01-30-2025 09:29-0400 Body weight 91 kg Jarrod Dave PA Work Phone: [facility] 01-23-2025 03:58-0400 Body temperature 98.5 [degF] Jarrod Dave PA Work Phone: [facility] 01-23-2025 03:58-0400 Diastolic blood pressure 79 mm[Hg] Jarrod Dave PA Work Phone: [facility] 01-23-2025 03:58-0400 Heart rate 70 /min Jarrod Dave PA Work Phone: [facility] 01-23-2025 03:58-0400 Respiratory rate 18 /min Jarrod Dave PA Work Phone: [facility] 01-23-2025 03:58-0400 SaO2% (BldA) [Mass fraction] 99 % Jarrod Dave PA Work Phone: [facility] 01-23-2025 03:58-0400 Systolic blood pressure 126 mm[Hg] Jarrod Dave PA Work Phone: [facility] 01-23-2025 03:14-0400 Body height 160.02 cm Jarrod Dave PA Work Phone: [facility] 01-23-2025 03:14-0400 Body mass index (BMI) [Ratio] 35.9 kg/m2 Jarrod Dave PA Work Phone: [facility] 01-23-2025 03:14-0400 Body weight 91.9 kg Jarrodtaran Acosta PA Work Phone: [facility] 01-11-2025 14:33-0400 Body mass index (BMI) [Ratio] 35.34 kg/m2 Jay Moomaw STRUCTURAL ANALYST.ROLLING MACHINE OPERATOR AUTOMATIC Work Phone: [facility] 01-11-2025 14:33-0400 Body temperature 97.39 [degF] Jay Moomaw STRUCTURAL ANALYST.ROLLING MACHINE OPERATOR AUTOMATIC Work Phone: [facility] 01-11-2025 14:33-0400 Body weight 90.5 kg Jay Moomaw STRUCTURAL ANALYST.ROLLING MACHINE OPERATOR AUTOMATIC Work Phone: [facility] 01-11-2025 14:33-0400 Diastolic blood pressure 78 mm[Hg] Jay Moomaw STRUCTURAL ANALYST.ROLLING MACHINE OPERATOR AUTOMATIC Work Phone: [facility] 01-11-2025 14:33-0400 Heart rate 70 /min Jay Moomaw STRUCTURAL ANALYST.ROLLING MACHINE OPERATOR AUTOMATIC Work Phone: [facility] 01-11-2025 14:33-0400 Respiratory rate 18 /min Jay Moomaw STRUCTURAL ANALYST.ROLLING MACHINE OPERATOR AUTOMATIC Work Phone: [facility] 01-11-2025 14:33-0400 SaO2% (BldA) [Mass fraction] 99 % Jay Moomaw STRUCTURAL ANALYST.ROLLING MACHINE OPERATOR AUTOMATIC Work Phone: [facility] 01-11-2025 14:33-0400 Systolic blood pressure 118 mm[Hg] Jay Moomaw STRUCTURAL ANALYST.ROLLING MACHINE OPERATOR AUTOMATIC Work Phone: [facility] 01-02-2025 14:07-0400 Body mass index (BMI) [Ratio] 35.18 kg/m2 Pramod Jason PA-C Work Phone: [facility] 01-02-2025 14:07-0400 Body weight 90.08 kg Pramod Jason PA-C Work Phone: [facility] 01-02-2025 14:07-0400 Diastolic blood pressure 64 mm[Hg] Pramod Jason PA-C Work Phone: [facility] 01-02-2025 14:07-0400 Heart rate 79 /min Pramod Jason PA-C Work Phone: [facility] 01-02-2025 14:07-0400 Respiratory rate 17 /min Pramod Jason PA-C Work Phone: [facility] 01-02-2025 14:07-0400 SaO2% (BldA) [Mass fraction] 100 % Pramod Jason PA-C Work Phone: [facility] 01-02-2025 14:07-0400 Systolic blood pressure 110 mm[Hg] Pramod Jason PA-C Work Phone: [facility] 12-18-2024 14:12-0400 Body height 160 cm Nick Rachel MD Work Phone: [facility] 12-18-2024 14:12-0400 Body mass index (BMI) [Ratio] 34.54 kg/m2 Nick Rachel MD Work Phone: [facility] 12-18-2024 14:12-0400 Body weight 88.45 kg Nick Rachel MD Work Phone: [facility] 12-18-2024 14:12-0400 Diastolic blood pressure 68 mm[Hg] Nick Rachel MD Work Phone: [facility] 12-18-2024 14:12-0400 Heart rate 108 /min Nick Rachel MD Work Phone: [facility] 12-18-2024 14:12-0400 Systolic blood pressure 109 mm[Hg] Nick Rachel MD Work Phone: [facility] 11-14-2024 10:06-0400 Body height 157.5 cm Janet Fernandez STRUCTURAL ANALYST.ROLLING MACHINE OPERATOR AUTOMATIC Work Phone: [facility] 11-14-2024 10:06-0400 Body mass index (BMI) [Ratio] 35.12 kg/m2 Janet Dodgehausjohn STRUCTURAL ANALYST.ROLLING MACHINE OPERATOR AUTOMATIC Work Phone: [facility] 11-14-2024 10:06-0400 Body weight 87.09 kg Janet Fernandez STRUCTURAL ANALYST.ROLLING MACHINE OPERATOR AUTOMATIC Work Phone: [facility] 11-14-2024 10:06-0400 Diastolic blood pressure 67 mm[Hg] Janetbassem Chiuen STRUCTURAL ANALYST.ROLLING MACHINE OPERATOR AUTOMATIC Work Phone: [facility] 11-14-2024 10:06-0400 Heart rate 87 /min Janetbassem Chiuen STRUCTURAL ANALYST.ROLLING MACHINE OPERATOR AUTOMATIC Work Phone: [facility] 11-14-2024 10:06-0400 SaO2% (BldA) [Mass fraction] 99 % Janetbassem Chiuen STRUCTURAL ANALYST.ROLLING MACHINE OPERATOR AUTOMATIC Work Phone: [facility] 11-14-2024 10:06-0400 Systolic blood pressure 112 mm[Hg] Janetbassem Chiuen STRUCTURAL ANALYST.ROLLING MACHINE OPERATOR AUTOMATIC Work Phone: [facility] 10-23-2024 15:40-0400 Body temperature 98 [degF] Neli Ungerer CLINICAL CARE MANAGER-C Work Phone: [facility] 10-23-2024 15:40-0400 Diastolic blood pressure 73 mm[Hg] Neli Ungerer CLINICAL CARE MANAGER-C Work Phone: [facility] 10-23-2024 15:40-0400 Heart rate 79 /min Neli Ungerer CLINICAL CARE MANAGER-C Work Phone: [facility] 10-23-2024 15:40-0400 Respiratory rate 18 /min Neli Ungerer CLINICAL CARE MANAGER-C Work Phone: [facility] 10-23-2024 15:40-0400 SaO2% (BldA) [Mass fraction] 100 % Neli Ungerer CLINICAL CARE MANAGER-C Work Phone: [facility] 10-23-2024 15:40-0400 Systolic blood pressure 105 mm[Hg] Neli Ungerer CLINICAL CARE MANAGER-C Work Phone: [facility] 10-23-2024 13:52-0400 Body mass index (BMI) [Ratio] 36 kg/m2 Neli Ungerer CLINICAL CARE MANAGER-C Work Phone: [facility] 10-23-2024 11:49-0400 Body height 157.48 cm Neli Ungerer CLINICAL CARE MANAGER-C Work Phone: [facility] 10-23-2024 11:49-0400 Body weight 89.4 kg Neli Ungerer CLINICAL CARE MANAGER-C Work Phone: [facility] 10-22-2024 22:00-0400 Diastolic blood pressure 81 mm[Hg] Neli Ungerer CLINICAL CARE MANAGER-C Work Phone: [facility] 10-22-2024 22:00-0400 Heart rate 67 /min Neli Ungerer CLINICAL CARE MANAGER-C Work Phone: [facility] 10-22-2024 22:00-0400 Respiratory rate 15 /min Neli Ungerer CLINICAL CARE MANAGER-C Work Phone: [facility] 10-22-2024 22:00-0400 SaO2% (BldA) [Mass fraction] 100 % Neli Ungerer CLINICAL CARE MANAGER-C Work Phone: [facility] 10-22-2024 22:00-0400 Systolic blood pressure 123 mm[Hg] Neli Ungerer CLINICAL CARE MANAGER-C Work Phone: [facility] 10-22-2024 20:55-0400 Body height 157.48 cm Neli Ungerer CLINICAL CARE MANAGER-C Work Phone: [facility] 10-22-2024 20:55-0400 Body mass index (BMI) [Ratio] 37.4 kg/m2 Neli Ungerer CLINICAL CARE MANAGER-C Work Phone: [facility] 10-22-2024 20:55-0400 Body temperature 98.2 [degF] Neli Ungerer CLINICAL CARE MANAGER-C Work Phone: [facility] 10-22-2024 20:55-0400 Body weight 92.9 kg Neli Ungerer CLINICAL CARE MANAGER-C Work Phone: [facility] 09-22-2024 16:49-0400 Body height 160.02 cm CLINICAL CARE MANAGER. Neli Mayerer CLINICAL CARE MANAGER-C Work Phone: [facility] 09-22-2024 16:49-0400 Body mass index (BMI) [Ratio] 34.2 kg/m2 CLINICAL CARE MANAGER. Neli Mayerer CLINICAL CARE MANAGER-C Work Phone: [facility] 09-22-2024 16:49-0400 Body temperature 98.1 [degF] CLINICAL CARE MANAGER. Neli Mayerer CLINICAL CARE MANAGER-C Work Phone: [facility] 09-22-2024 16:49-0400 Body weight 87.72 kg CLINICAL CARE MANAGER. Neli Mayerer CLINICAL CARE MANAGER-C Work Phone: [facility] 09-22-2024 16:49-0400 Diastolic blood pressure 80 mm[Hg] CLINICAL CARE MANAGER. Neli Laloerer CLINICAL CARE MANAGER-C Work Phone: [facility] 09-22-2024 16:49-0400 Heart rate 89 /min CLINICAL CARE MANAGER. Neli Ungerer CLINICAL CARE MANAGER-C Work Phone: [facility] 09-22-2024 16:49-0400 Respiratory rate 16 /min CLINICAL CARE MANAGER. Neli Ungerer CLINICAL CARE MANAGER-C Work Phone: [facility] 09-22-2024 16:49-0400 SaO2% (BldA) [Mass fraction] 98 % CLINICAL CARE MANAGER. Neli Mayerer CLINICAL CARE MANAGER-C Work Phone: [facility] 09-22-2024 16:49-0400 Systolic blood pressure 113 mm[Hg] CLINICAL CARE MANAGER. Neli Ungerer CLINICAL CARE MANAGER-C Work Phone: [facility] 09-07-2024 11:28-0400 Body mass index (BMI) [Ratio] 35.2 kg/m2 CLINICAL CARE MANAGER. Neli Laloerer CLINICAL CARE MANAGER-C Work Phone: [facility] 09-07-2024 11:28-0400 Body temperature 98.2 [degF] CLINICAL CARE MANAGER. Neli Ungerer CLINICAL CARE MANAGER-C Work Phone: [facility] 09-07-2024 11:28-0400 Body weight 90.03 kg CLINICAL CARE MANAGER. Neli Mayerer CLINICAL CARE MANAGER-C Work Phone: [facility] 09-07-2024 11:28-0400 Heart rate 92 /min CLINICAL CARE MANAGER. Neli Mayerer CLINICAL CARE MANAGER-C Work Phone: [facility] 09-07-2024 11:28-0400 Respiratory rate 16 /min CLINICAL CARE MANAGER. Neli Mayerer CLINICAL CARE MANAGER-C Work Phone: [facility] 09-07-2024 11:28-0400 SaO2% (BldA) [Mass fraction] 99 % CLINICAL CARE MANAGER. Neli Mayerer CLINICAL CARE MANAGER-C Work Phone: [facility] 08-23-2024 08:59-0400 Body temperature 97.8 [degF] CLINICAL CARE MANAGER. Neli Mayerer CLINICAL CARE MANAGER-C Work Phone: [facility] 08-23-2024 08:59-0400 Diastolic blood pressure 82 mm[Hg] CLINICAL CARE MANAGER. Neli Mayerer CLINICAL CARE MANAGER-C Work Phone: [facility] 08-23-2024 08:59-0400 Heart rate 73 /min CLINICAL CARE MANAGER. Neli Mayerer CLINICAL CARE MANAGER-C Work Phone: [facility] 08-23-2024 08:59-0400 SaO2% (BldA) [Mass fraction] 97 % CLINICAL CARE MANAGER. Neli Mayerer CLINICAL CARE MANAGER-C Work Phone: [facility] 08-23-2024 08:59-0400 Systolic blood pressure 120 mm[Hg] CLINICAL CARE MANAGER. Neli Ungerer CLINICAL CARE MANAGER-C Work Phone: [facility] 08-17-2024 17:30-0500 Body temperature 98 [degF] CLINICAL CARE MANAGER. Neli Mayerer CLINICAL CARE MANAGER-C Work Phone: [facility] 08-17-2024 17:30-0500 Diastolic blood pressure 65 mm[Hg] CLINICAL CARE MANAGER. Neli Mayerer CLINICAL CARE MANAGER-C Work Phone: [facility] 08-17-2024 17:30-0500 Heart rate 70 /min CLINICAL CARE MANAGER. Neli Mayerer CLINICAL CARE MANAGER-C Work Phone: [facility] 08-17-2024 17:30-0500 Respiratory rate 18 /min CLINICAL CARE MANAGER. Neli Mayerer CLINICAL CARE MANAGER-C Work Phone: [facility] 08-17-2024 17:30-0500 SaO2% (BldA) [Mass fraction] 100 % CLINICAL CARE MANAGER. Neli Mayerer CLINICAL CARE MANAGER-C Work Phone: [facility] 08-17-2024 17:30-0500 Systolic blood pressure 123 mm[Hg] CLINICAL CARE MANAGER. Neli Mayerer CLINICAL CARE MANAGER-C Work Phone: [facility] 08-17-2024 15:56-0500 Body height 160.02 cm CLINICAL CARE MANAGER. Neli Mayerer CLINICAL CARE MANAGER-C Work Phone: [facility] 08-17-2024 15:56-0500 Body mass index (BMI) [Ratio] 35.1 kg/m2 CLINICAL CARE MANAGER. Neli Mayerer CLINICAL CARE MANAGER-C Work Phone: [facility] 08-17-2024 15:56-0500 Body weight 89.9 kg CLINICAL CARE MANAGER. Neli Mayerer CLINICAL CARE MANAGER-C Work Phone: [facility] 07-29-2024 19:11-0500 Body mass index (BMI) [Ratio] 35.92 kg/m2 Jeovany Clutter PA-C Work Phone: [facility] 07-29-2024 19:11-0500 Body temperature 98.49 [degF] Jeovany Clutter PA-C Work Phone: [facility] 07-29-2024 19:11-0500 Body weight 91.99 kg Jeovany Clutter PA-C Work Phone: [facility] 07-29-2024 19:11-0500 Diastolic blood pressure 72 mm[Hg] Jeovany Clutter PA-C Work Phone: [facility] 07-29-2024 19:11-0500 Heart rate 90 /min Jeovany Clutter PA-C Work Phone: [facility] 07-29-2024 19:11-0500 Respiratory rate 16 /min Jeovany Clutter PA-C Work Phone: [facility] 07-29-2024 19:11-0500 SaO2% (BldA) [Mass fraction] 99 % Jeovany Clutter PA-C Work Phone: [facility] 07-29-2024 19:11-0500 Systolic blood pressure 110 mm[Hg] Jeovany Clutter PA-C Work Phone: [facility] 07-18-2024 14:03-0500 Body mass index (BMI) [Ratio] 35.93 kg/m2 Neli Redd STRUCTURAL ANALYST.ROLLING MACHINE OPERATOR AUTOMATIC Work Phone: [facility] 07-18-2024 14:03-0500 Body temperature 99 [degF] Neli Redd STRUCTURAL ANALYST.ROLLING MACHINE OPERATOR AUTOMATIC Work Phone: [facility] 07-18-2024 14:03-0500 Body weight 92 kg Neli Redd STRUCTURAL ANALYST.ROLLING MACHINE OPERATOR AUTOMATIC Work Phone: [facility] 07-18-2024 14:03-0500 Diastolic blood pressure 70 mm[Hg] Neli Redd STRUCTURAL ANALYST.ROLLING MACHINE OPERATOR AUTOMATIC Work Phone: [facility] 07-18-2024 14:03-0500 Heart rate 92 /min Neli Redd STRUCTURAL ANALYST.ROLLING MACHINE OPERATOR AUTOMATIC Work Phone: [facility] 07-18-2024 14:03-0500 Respiratory rate 22 /min Neli Redd STRUCTURAL ANALYST.ROLLING MACHINE OPERATOR AUTOMATIC Work Phone: [facility] 07-18-2024 14:03-0500 SaO2% (BldA) [Mass fraction] 100 % Neli Redd STRUCTURAL ANALYST.ROLLING MACHINE OPERATOR AUTOMATIC Work Phone: [facility] 07-18-2024 14:03-0500 Systolic blood pressure 106 mm[Hg] Neli Redd APRN.ROLLING MACHINE OPERATOR AUTOMATIC Work Phone: [facility] 06-26-2024 16:06-0500 Body mass index (BMI) [Ratio] 36.98 kg/m2 Jeovany Clutter PA-C Work Phone: [facility] 06-26-2024 16:06-0500 Body temperature 99.1 [degF] Jeovany Clutter PA-C Work Phone: [facility] 06-26-2024 16:06-0500 Body weight 94.7 kg Jeovany Clutter PA-C Work Phone: [facility] 06-26-2024 16:06-0500 Diastolic blood pressure 70 mm[Hg] Jeovany Clutter PA-C Work Phone: [facility] 06-26-2024 16:06-0500 Heart rate 88 /min Jeovany Clutter PA-C Work Phone: [facility] 06-26-2024 16:06-0500 Respiratory rate 21 /min Jeovany Clutter PA-C Work Phone: [facility] 06-26-2024 16:06-0500 SaO2% (BldA) [Mass fraction] 98 % Jeovany Clutter PA-C Work Phone: [facility] 06-26-2024 16:06-0500 Systolic blood pressure 100 mm[Hg] Jeovany Clutter PA-C Work Phone: [facility] 06-19-2024 11:45-0500 Body mass index (BMI) [Ratio] 37.2 kg/m2 CLINICAL CARE MANAGER. Neli Tripp CLINICAL CARE MANAGER-C Work Phone: [facility] 06-19-2024 11:45-0500 Body temperature 98.3 [degF] CLINICAL CARE MANAGER. Neli Tripp CLINICAL CARE MANAGER-C Work Phone: [facility] 06-19-2024 11:45-0500 Body weight 95.31 kg CLINICAL CARE MANAGER. Neli Tripp CLINICAL CARE MANAGER-C Work Phone: [facility] 06-19-2024 11:45-0500 Diastolic blood pressure 80 mm[Hg] CLINICAL CARE MANAGER. Neli Tripp CLINICAL CARE MANAGER-C Work Phone: [facility] 06-19-2024 11:45-0500 Heart rate 85 /min CLINICAL CARE MANAGER. Neli Mayerer CLINICAL CARE MANAGER-C Work Phone: [facility] 06-19-2024 11:45-0500 SaO2% (BldA) [Mass fraction] 98 % CLINICAL CARE MANAGER. Neli Plascenciar CLINICAL CARE MANAGER-C Work Phone: [facility] 06-19-2024 11:45-0500 Systolic blood pressure 120 mm[Hg] CLINICAL CARE MANAGER. Neli Plascenciar CLINICAL CARE MANAGER-C Work Phone: [facility] 05-31-2024 14:16-0500 Body mass index (BMI) [Ratio] 36.67 kg/m2 Paty Retewii DO Work Phone: [facility] 05-31-2024 14:16-0500 Body temperature 98.8 [degF] Paty Masci DO Work Phone: [facility] 05-31-2024 14:16-0500 Body weight 93.89 kg Paty Masci DO Work Phone: [facility] 05-31-2024 14:16-0500 Diastolic blood pressure 76 mm[Hg] Paty Masci DO Work Phone: [facility] 05-31-2024 14:16-0500 Heart rate 94 /min Paty Masci DO Work Phone: [facility] 05-31-2024 14:16-0500 SaO2% (BldA) [Mass fraction] 99 % Paty Masci DO Work Phone: [facility] 05-31-2024 14:16-0500 Systolic blood pressure 110 mm[Hg] Paty Masci DO Work Phone: [facility] 05-24-2024 11:18-0500 Body mass index (BMI) [Ratio] 37.1 kg/m2 Les Pendlebury STRUCTURAL ANALYST.ROLLING MACHINE OPERATOR AUTOMATIC Work Phone: [facility] 05-24-2024 11:18-0500 Body temperature 98.1 [degF] [facility] STRUCTURAL ANALYST.ROLLING MACHINE OPERATOR AUTOMATIC Work Phone: [facility] 05-24-2024 11:18-0500 Body weight 95 [facility] STRU[facility] A[facility]ST.ROLLING MACHINE OPERATOR AUTOMATIC Work Phone: [facility] 05-24-2024 11:18-0500 Diastolic blood pressure 78 mm[Hg] [facility]. [facility] STRUCTURAL ANALYST.ROLLING MACHINE OPERATOR AUTOMATIC Work Phone: [facility] 05-24-2024 11:18-0500 Heart rate 74 /min Les Pendbury STRUCTURAL ANALYST.ROLLING MACHINE OPERATOR AUTOMATIC Work Phone: [facility] 05-24-2024 11:18-0500 Respiratory rate 16 /min [facility] STRU[facility]URAL ANALYST.ROLLING MACHINE OPERATOR AUTOMATIC Work Phone: [facility] 05-24-2024 11:18-0500 SaO2% (BldA) [Mass fraction] 100 % [facility] STRUCTURAL ANALYST.ROLLING MACHINE OPERATOR AUTOMATIC Work Phone: [facility] 05-24-2024 11:18-0500 Systolic blood pressure 115 mm[Hg] Les [facility]. [facility] STRUCTURAL ANALYST.ROLLING MACHINE OPERATOR AUTOMATIC Work Phone: [facility] 04-10-2024 19:37-0400 Body mass index (BMI) [Ratio] 37.69 kg/m2 Jay Moomaw STRUCTURAL ANALYST.ROLLING MACHINE OPERATOR AUTOMATIC Work Phone: [facility] 04-10-2024 19:37-0400 Body temperature 98.91 [degF] Jay Moomaw STRUCTURAL ANALYST.ROLLING MACHINE OPERATOR AUTOMATIC Work Phone: [facility] 04-10-2024 19:37-0400 Body weight 96.5 kg Jay Moomaw STRUCTURAL ANALYST.ROLLING MACHINE OPERATOR AUTOMATIC Work Phone: [facility] 04-10-2024 19:37-0400 Diastolic blood pressure 77 mm[Hg] Jay Moomaw STRUCTURAL ANALYST.ROLLING MACHINE OPERATOR AUTOMATIC Work Phone: [facility] 04-10-2024 19:37-0400 Heart rate 79 /min Jay Moomaw STRUCTURAL ANALYST.ROLLING MACHINE OPERATOR AUTOMATIC Work Phone: [facility] 04-10-2024 19:37-0400 Respiratory rate 18 /min Jay Moomaw STRUCTURAL ANALYST.ROLLING MACHINE OPERATOR AUTOMATIC Work Phone: [facility] 04-10-2024 19:37-0400 SaO2% (BldA) [Mass fraction] 100 % Jay Moomaw STRUCTURAL ANALYST.ROLLING MACHINE OPERATOR AUTOMATIC Work Phone: [facility] 04-10-2024 19:37-0400 Systolic blood pressure 115 mm[Hg] Jay Moomaw STRUCTURAL ANALYST.ROLLING MACHINE OPERATOR AUTOMATIC Work Phone: [facility] 03-28-2024 18:54-0400 Body mass index (BMI) [Ratio] 36.32 kg/m2 Neli Redd STRUCTURAL ANALYST.ROLLING MACHINE OPERATOR AUTOMATIC Work Phone: [facility] 03-28-2024 18:54-0400 Body temperature 98.01 [degF] Neli Redd STRUCTURAL ANALYST.ROLLING MACHINE OPERATOR AUTOMATIC Work Phone: [facility] 03-28-2024 18:54-0400 Body weight 93 kg Neli Redd STRUCTURAL ANALYST.ROLLING MACHINE OPERATOR AUTOMATIC Work Phone: [facility] 03-28-2024 18:54-0400 Diastolic blood pressure 68 mm[Hg] Neli Redd STRUCTURAL ANALYST.ROLLING MACHINE OPERATOR AUTOMATIC Work Phone: [facility] 03-28-2024 18:54-0400 Heart rate 76 /min Neli Redd STRUCTURAL ANALYST.ROLLING MACHINE OPERATOR AUTOMATIC Work Phone: [facility] 03-28-2024 18:54-0400 SaO2% (BldA) [Mass fraction] 99 % Neli Redd STRUCTURAL ANALYST.ROLLING MACHINE OPERATOR AUTOMATIC Work Phone: [facility] 03-28-2024 18:54-0400 Systolic blood pressure 101 mm[Hg] Neli Redd STRUCTURAL ANALYST.ROLLING MACHINE OPERATOR AUTOMATIC Work Phone: [facility] 03-19-2024 09:11-0400 Body mass index (BMI) [Ratio] 36.48 kg/m2 Michelle Marvin APRN.ROLLING MACHINE OPERATOR AUTOMATIC Work Phone: [facility] 03-19-2024 09:11-0400 Body temperature 98.29 [degF] Michelle Marvin APRN.ROLLING MACHINE OPERATOR AUTOMATIC Work Phone: [facility] 03-19-2024 09:11-0400 Body weight 93.4 kg Michelle Marvin APRN.ROLLING MACHINE OPERATOR AUTOMATIC Work Phone: [facility] 03-19-2024 09:11-0400 Diastolic blood pressure 64 mm[Hg] Michelle Marvin APRN.ROLLING MACHINE OPERATOR AUTOMATIC Work Phone: [facility] 03-19-2024 09:11-0400 Heart rate 96 /min Michelle Marvin APRN.ROLLING MACHINE OPERATOR AUTOMATIC Work Phone: [facility] 03-19-2024 09:11-0400 Respiratory rate 18 /min Michelle Marvin APRN.ROLLING MACHINE OPERATOR AUTOMATIC Work Phone: [facility] 03-19-2024 09:11-0400 SaO2% (BldA) [Mass fraction] 98 % Michelle Marvin APRN.ROLLING MACHINE OPERATOR AUTOMATIC Work Phone: [facility] 03-19-2024 09:11-0400 Systolic blood pressure 106 mm[Hg] Michelle Marvin APRN.ROLLING MACHINE OPERATOR AUTOMATIC Work Phone: [facility] 02-28-2024 11:01-0400 Body height 160 cm Charline Wooten APRN.ROLLING MACHINE OPERATOR AUTOMATIC Work Phone: [facility] 02-28-2024 11:01-0400 Body mass index (BMI) [Ratio] 35.25 kg/m2 Charline Wooten STRUCTURAL ANALYST.ROLLING MACHINE OPERATOR AUTOMATIC Work Phone: [facility] 02-28-2024 11:01-0400 Body weight 90.27 kg Charline Wooten APRN.ROLLING MACHINE OPERATOR AUTOMATIC Work Phone: [facility] 02-28-2024 11:01-0400 Diastolic blood pressure 73 mm[Hg] Charline Wooten STRUCTURAL ANALYST.ROLLING MACHINE OPERATOR AUTOMATIC Work Phone: [facility] 02-28-2024 11:01-0400 Heart rate 84 /min Charline Wooten STRUCTURAL ANALYST.ROLLING MACHINE OPERATOR AUTOMATIC Work Phone: [facility] 02-28-2024 11:01-0400 Systolic blood pressure 110 mm[Hg] Charline Suarezbritney STRUCTURAL ANALYST.ROLLING MACHINE OPERATOR AUTOMATIC Work Phone: [facility] 11-14-2023 13:45-0400 Body height 160 cm Paty Schwartzi DO Work Phone: [facility] 11-14-2023 13:45-0400 Body mass index (BMI) [Ratio] 34.37 kg/m2 Paty Masci DO Work Phone: [facility] 11-14-2023 13:45-0400 Body temperature 97.59 [degF] Paty Masci DO Work Phone: [facility] 11-14-2023 13:45-0400 Body weight 88 kg Paty Masci DO Work Phone: [facility] 11-14-2023 13:45-0400 Diastolic blood pressure 67 mm[Hg] Paty Masci DO Work Phone: [facility] 11-14-2023 13:45-0400 Heart rate 92 /min Paty Masci DO Work Phone: [facility] 11-14-2023 13:45-0400 SaO2% (BldA) [Mass fraction] 98 % Paty Masci DO Work Phone: [facility] 11-14-2023 13:45-0400 Systolic blood pressure 104 mm[Hg] Paty Masci DO Work Phone: [facility] 10-25-2023 09:41-0400 Body height 160 cm Elizabeth Marques MD Work Phone: [facility] 10-25-2023 09:41-0400 Body mass index (BMI) [Ratio] 35.43 kg/m2 Elizabeth Marques MD Work Phone: [facility] 10-25-2023 09:41-0400 Body weight 90.72 kg Elizabeth Marques MD Work Phone: [facility] 10-25-2023 09:41-0400 Diastolic blood pressure 73 mm[Hg] Elizabeth Marques MD Work Phone: [facility] 10-25-2023 09:41-0400 Heart rate 85 /min Elizabeth Marques MD Work Phone: [facility] 10-25-2023 09:41-0400 Systolic blood pressure 109 mm[Hg] Elizabeth Marques MD Work Phone: [facility] 09-14-2023 11:33-0400 Body height 160 cm Janet Dahlhausen STRUCTURAL ANALYST.ROLLING MACHINE OPERATOR AUTOMATIC Work Phone: [facility] 09-14-2023 11:33-0400 Body weight 90.72 kg Janet Dahlhausen STRUCTURAL ANALYST.ROLLING MACHINE OPERATOR AUTOMATIC Work Phone: [facility] 09-14-2023 11:33-0400 Diastolic blood pressure 68 mm[Hg] Janet Jthlhausen STRUCTURAL ANALYST.ROLLING MACHINE OPERATOR AUTOMATIC Work Phone: [facility] 09-14-2023 11:33-0400 Heart rate 90 /min Janet Dahlhausen STRUCTURAL ANALYST.ROLLING MACHINE OPERATOR AUTOMATIC Work Phone: [facility] 09-14-2023 11:33-0400 SaO2% (BldA) [Mass fraction] 98 % Janet Dahlhausen STRUCTURAL ANALYST.ROLLING MACHINE OPERATOR AUTOMATIC Work Phone: [facility] 09-14-2023 11:33-0400 Systolic blood pressure 110 mm[Hg] Janet Dahlhausen STRUCTURAL ANALYST.ROLLING MACHINE OPERATOR AUTOMATIC Work Phone: [facility] 08-30-2023 14:47-0400 Body temperature 97.8 [degF] CLINICAL CARE MANAGER. Neli Tripp Work Phone: [facility] 08-30-2023 14:47-0400 Diastolic blood pressure 62 mm[Hg] CLINICAL CARE MANAGER. Neli Tripp Work Phone: [facility] 08-30-2023 14:47-0400 Heart rate 65 /min CLINICAL CARE MANAGER. Neli Ungerer Work Phone: [facility] 08-30-2023 14:47-0400 Respiratory rate 16 /min CLINICAL CARE MANAGER. Neli Ungerer Work Phone: [facility] 08-30-2023 14:47-0400 SaO2% (BldA) [Mass fraction] 99 % CLINICAL CARE MANAGER. Neli Ungerer Work Phone: [facility] 08-30-2023 14:47-0400 Systolic blood pressure 93 mm[Hg] CLINICAL CARE MANAGER. Neli Ungerer Work Phone: [facility] 08-30-2023 14:34-0400 Body mass index (BMI) [Ratio] 35.1 kg/m2 CLINICAL CARE MANAGER. Neli Ungerer Work Phone: [facility] 08-30-2023 13:44-0400 Body height 160.02 cm CLINICAL CARE MANAGER. Neli Ungerer Work Phone: [facility] 08-30-2023 13:44-0400 Body weight 90 kg CLINICAL CARE MANAGER. Neli Ungerer Work Phone: [facility] 08-30-2023 00:18-0400 Body temperature 97.6 [degF] CLINICAL CARE MANAGER. Neli Ungerer Work Phone: [facility] 08-30-2023 00:18-0400 Diastolic blood pressure 64 mm[Hg] CLINICAL CARE MANAGER. Neli Ungerer Work Phone: [facility] 08-30-2023 00:18-0400 Heart rate 62 /min CLINICAL CARE MANAGER. Neli Ungerer Work Phone: [facility] 08-30-2023 00:18-0400 Respiratory rate 19 /min CLINICAL CARE MANAGER. Neli Ungerer Work Phone: [facility] 08-30-2023 00:18-0400 SaO2% (BldA) [Mass fraction] 98 % CLINICAL CARE MANAGER. Neli Ungerer Work Phone: [facility] 08-30-2023 00:18-0400 Systolic blood pressure 106 mm[Hg] CLINICAL CARE MANAGER. Neli Ungerer Work Phone: [facility] 08-29-2023 22:16-0400 Body height 160.02 cm CLINICAL CARE MANAGER. Neli Ungerer Work Phone: [facility] 08-29-2023 22:16-0400 Body mass index (BMI) [Ratio] 36.1 kg/m2 CLINICAL CARE MANAGER. Neli Ungerer Work Phone: [facility] 08-29-2023 22:16-0400 Body weight 92.4 kg CLINICAL CARE MANAGER. Neli Ungerer Work Phone: [facility] 07-27-2023 15:34-0500 Body mass index (BMI) [Ratio] 35.4 kg/m2 CLINICAL CARE MANAGER. Neli Ungerer Work Phone: [facility] 07-27-2023 15:34-0500 Body temperature 98.4 [degF] CLINICAL CARE MANAGER. Neli Ungerer Work Phone: [facility] 07-27-2023 15:34-0500 Body weight 90.71 kg CLINICAL CARE MANAGER. Neli Ungerer Work Phone: [facility] 07-27-2023 15:34-0500 Diastolic blood pressure 78 mm[Hg] CLINICAL CARE MANAGER. Neli Ungerer Work Phone: [facility] 07-27-2023 15:34-0500 Heart rate 114 /min CLINICAL CARE MANAGER. Neli Ungerer Work Phone: [facility] 07-27-2023 15:34-0500 Respiratory rate 16 /min CLINICAL CARE MANAGER. Neli Ungerer Work Phone: [facility] 07-27-2023 15:34-0500 SaO2% (BldA) [Mass fraction] 98 % CLINICAL CARE MANAGER. Neli Ungerer Work Phone: [facility] 07-27-2023 15:34-0500 Systolic blood pressure 122 mm[Hg] CLINICAL CARE MANAGER. Neli Ungerer Work Phone: [facility] 07-18-2023 21:35-0500 Body height 157.48 cm CLINICAL CARE MANAGER. Neli Ungerer Work Phone: [facility] 07-18-2023 21:35-0500 Body mass index (BMI) [Ratio] 37.8 kg/m2 CLINICAL CARE MANAGER. Neli Ungerer Work Phone: [facility] 07-18-2023 21:35-0500 Body temperature 96.4 [degF] CLINICAL CARE MANAGER. Neli Ungerer Work Phone: [facility] 07-18-2023 21:35-0500 Body weight 93.89 kg CLINICAL CARE MANAGER. Neli Ungerer Work Phone: [facility] 07-18-2023 21:35-0500 Diastolic blood pressure 71 mm[Hg] CLINICAL CARE MANAGER. Neli Ungerer Work Phone: [facility] 07-18-2023 21:35-0500 Heart rate 76 /min CLINICAL CARE MANAGER. Neli Ungerer Work Phone: [facility] 07-18-2023 21:35-0500 Respiratory rate 18 /min CLINICAL CARE MANAGER. Neli Ungerer Work Phone: [facility] 07-18-2023 21:35-0500 SaO2% (BldA) [Mass fraction] 100 % CLINICAL CARE MANAGER. Neli Ungerer Work Phone: [facility] 07-18-2023 21:35-0500 Systolic blood pressure 127 mm[Hg] CLINICAL CARE MANAGER. Neli Ungerer Work Phone: [facility] 07-16-2023 12:43-0500 Body temperature 99.6 [degF] CLINICAL CARE MANAGER. Neli Ungerer Work Phone: [facility] 07-16-2023 12:43-0500 Diastolic blood pressure 74 mm[Hg] CLINICAL CARE MANAGER. Neli Ungerer Work Phone: [facility] 07-16-2023 12:43-0500 Heart rate 97 /min CLINICAL CARE MANAGER. Neli Ungerer Work Phone: [facility] 07-16-2023 12:43-0500 Respiratory rate 12 /min CLINICAL CARE MANAGER. Neli Ungerer Work Phone: [facility] 07-16-2023 12:43-0500 SaO2% (BldA) [Mass fraction] 97 % CLINICAL CARE MANAGER. Neli Ungerer Work Phone: [facility] 07-16-2023 12:43-0500 Systolic blood pressure 110 mm[Hg] CLINICAL CARE MANAGER. Neli Ungerer Work Phone: [facility] 06-02-2023 11:53-0500 Body mass index (BMI) [Ratio] 37.8 kg/m2 CLINICAL CARE MANAGER. Neli Ungerer Work Phone: [facility] 06-02-2023 11:53-0500 Body temperature 99.4 [degF] CLINICAL CARE MANAGER. Neli Ungerer Work Phone: [facility] [facility]23 11:53-0500 Body weight 93.89 kg CLINICAL CARE MANAGER. Neli Ungerer Work Phone: [facility] 06-02-2023 11:53-0500 Diastolic blood pressure 64 mm[Hg] CLINICAL CARE MANAGER. Neli Ungerer Work Phone: [facility] 06-02-2023 11:53-0500 Heart rate 86 /min CLINICAL CARE MANAGER. Neli Ungerer Work Phone: [facility] 06-02-2023 11:53-0500 Respiratory rate 16 /min CLINICAL CARE MANAGER. Neli Ungerer Work Phone: [facility] 06-02-2023 11:53-0500 SaO2% (BldA) [Mass fraction] 98 % CLINICAL CARE MANAGER. Neli Ungerer Work Phone: [facility] 06-02-2023 11:53-0500 Systolic blood pressure 102 mm[Hg] CLINICAL CARE MANAGER. Neli Ungerer Work Phone: [facility] 05-22-2023 15:06-0500 Body temperature 98.7 [degF] CLINICAL CARE MANAGER. Neli Ungerer Work Phone: [facility] 05-22-2023 15:06-0500 Diastolic blood pressure 77 mm[Hg] CLINICAL CARE MANAGER. Neli Ungerer Work Phone: [facility] 05-22-2023 15:06-0500 Heart rate 91 /min CLINICAL CARE MANAGER. Neli Ungerer Work Phone: [facility] 05-22-2023 15:06-0500 Respiratory rate 12 /min CLINICAL CARE MANAGER. Neli Ungerer Work Phone: [facility] 05-22-2023 15:06-0500 SaO2% (BldA) [Mass fraction] 96 % CLINICAL CARE MANAGER. Neli Ungerer Work Phone: [facility] 05-22-2023 15:06-0500 Systolic blood pressure 109 mm[Hg] CLINICAL CARE MANAGER. Neli Ungerer Work Phone: [facility] 04-29-2023 21:05-0500 Body height 160.02 cm CLINICAL CARE MANAGER. Neli Ungerer Work Phone: [facility] 04-29-2023 21:05-0500 Body mass index (BMI) [Ratio] 38.9 kg/m2 CLINICAL CARE MANAGER. Neli Ungerer Work Phone: [facility] 04-29-2023 21:05-0500 Body temperature 96.3 [degF] CLINICAL CARE MANAGER. Neli Ungerer Work Phone: [facility] 04-29-2023 21:05-0500 Body weight 99.6 kg CLINICAL CARE MANAGER. Neli Ungerer Work Phone: [facility] 04-29-2023 21:05-0500 Diastolic blood pressure 62 mm[Hg] CLINICAL CARE MANAGER. Neli Ungerer Work Phone: [facility] 04-29-2023 21:05-0500 Heart rate 69 /min CLINICAL CARE MANAGER. Neli Ungerer Work Phone: [facility] 04-29-2023 21:05-0500 Respiratory rate 14 /min CLINICAL CARE MANAGER. Neli Ungerer Work Phone: [facility] 04-29-2023 21:05-0500 SaO2% (BldA) [Mass fraction] 99 % CLINICAL CARE MANAGER. Neli Ungerer Work Phone: [facility] 04-29-2023 21:05-0500 Systolic blood pressure 127 mm[Hg] CLINICAL CARE MANAGER. Neli Ungerer Work Phone: [facility] 04-25-2023 09:54-0500 Body temperature 98.4 [degF] CLINICAL CARE MANAGER. Neli Ungerer Work Phone: [facility] 04-25-2023 09:54-0500 Diastolic blood pressure 74 mm[Hg] CLINICAL CARE MANAGER. Neli Ungerer Work Phone: [facility] 04-25-2023 09:54-0500 Heart rate 99 /min CLINICAL CARE MANAGER. Neli Ungerer Work Phone: [facility] 04-25-2023 09:54-0500 Respiratory rate 12 /min CLINICAL CARE MANAGER. Neli Ungerer Work Phone: [facility] 04-25-2023 09:54-0500 SaO2% (BldA) [Mass fraction] 97 % CLINICAL CARE MANAGER. Neli Ungerer Work Phone: [facility] 04-25-2023 09:54-0500 Systolic blood pressure 118 mm[Hg] CLINICAL CARE MANAGER. Neli Ungerer Work Phone: [facility] 03-16-2023 13:38-0400 Body temperature 97.4 [degF] CLINICAL CARE MANAGER. Neli Mayerer Work Phone: [facility] 03-16-2023 13:38-0400 Diastolic blood pressure 73 mm[Hg] CLINICAL CARE MANAGER. Neli Ungerer Work Phone: [facility] 03-16-2023 13:38-0400 Heart rate 94 /min CLINICAL CARE MANAGER. Neli Mayerer Work Phone: [facility] 03-16-2023 13:38-0400 Respiratory rate 18 /min CLINICAL CARE MANAGER. Neli Mayerer Work Phone: [facility] 03-16-2023 13:38-0400 SaO2% (BldA) [Mass fraction] 97 % CLINICAL CARE MANAGER. Neli Mayerer Work Phone: [facility] 03-16-2023 13:38-0400 Systolic blood pressure 103 mm[Hg] CLINICAL CARE MANAGER. Neli Mayerer Work Phone: [facility] 03-16-2023 12:46-0400 Body mass index (BMI) [Ratio] 35.1 kg/m2 CLINICAL CARE MANAGER. Neli Mayerer Work Phone: [facility] 03-16-2023 10:47-0400 Body weight 90 kg CLINICAL CARE MANAGER. Neli Mayerer Work Phone: [facility] 03-15-2023 22:15-0400 Diastolic blood pressure 65 mm[Hg] [facility] 03-15-2023 22:15-0400 Heart rate 67 /min [facility] 03-15-2023 22:15-0400 Respiratory rate 15 /min [facility] 03-15-2023 22:15-0400 SaO2% (BldA) [Mass fraction] 98 % [facility] 03-15-2023 22:15-0400 Systolic blood pressure 135 mm[Hg] [facility] 03-15-2023 21:53-0400 Body temperature 98 [degF] [facility] 03-15-2023 20:02-0400 Body mass index (BMI) [Ratio] 38.9 kg/m2 [facility] 03-15-2023 20:02-0400 Body weight 99.[address] [facility] 03-15-2023 19:57-0400 Body height 160.[address] [facility] 12-08-2022 11:36-0400 Body temperature 98.42 [degF] LES MICHEL DO [facility] 12-08-2022 11:36-0400 Diastolic Blood Pressure Non-Invasive 91 1 LES MICHEL DO [facility] 12-08-2022 11:36-0400 Heart rate 91 /min LES MICHEL DO [facility] 12-08-2022 11:36-0400 Respiratory rate 18 /min LES MICHEL DO [facility] 12-08-2022 11:36-0400 Systolic Blood Pressure Non-Invasive 138 1 LES MICHEL DO [facility] 12-08-2022 07:11-0400 Body temperature 98.24 [degF] LES MICHEL DO [facility] 12-08-2022 07:11-0400 Diastolic Blood Pressure Non-Invasive 85 1 LES MICHEL DO [facility] 12-08-2022 07:11-0400 Heart rate 86 /min LES MICHEL DO [facility] 12-08-2022 07:11-0400 Respiratory rate 18 /min LES MICHEL DO [facility] 12-08-2022 07:11-0400 Systolic Blood Pressure Non-Invasive 126 1 LES MICHEL DO [facility] 12-08-2022 03:36-0400 Body temperature 98.96 [degF] LES MICHEL DO [facility] 12-08-2022 03:36-0400 Diastolic Blood Pressure Non-Invasive 87 1 LES MICHEL DO [facility] 12-08-2022 03:36-0400 Heart rate 90 /min LES MICHEL DO [facility] 12-08-2022 03:36-0400 Respiratory rate 20 /min LES MICHEL DO [facility] 12-08-2022 03:36-0400 Systolic Blood Pressure Non-Invasive 130 1 LES MICHEL DO [facility] 12-07-2022 23:00-0400 Heart rate 76 /min LES MICHEL DO [facility] 12-07-2022 19:28-0400 Heart rate 81 /min LES MICHEL DO [facility] 12-07-2022 14:56-0400 Body height 160 cm LES MICHEL DO [facility] 12-07-2022 14:56-0400 Body weight 101 kg LES MICHEL DO [facility] 12-07-2022 14:56-0400 Body weight 39.45 kg/m2 LES MICHEL DO [facility] 12-07-2022 14:17-0400 Heart rate 74 /min LES MICHEL DO [facility] 12-07-2022 10:45-0400 Body temperature 97.16 [degF] LES MICHEL DO [facility] 12-07-2022 10:40-0400 Respiratory Rate - Anes 0 br/min LES MICHEL DO [facility] 12-07-2022 10:35-0400 Respiratory Rate - Anes 18 br/min LES MICHEL DO [facility] 12-07-2022 10:30-0400 Respiratory Rate - Anes 16 br/min LES MICHEL DO [facility] 12-07-2022 06:50-0400 Body height 160 cm LES MICHEL DO [facility] 12-07-2022 06:50-0400 Body temperature 97.16 [degF] LES MICHEL DO [facility] 12-07-2022 06:50-0400 Body weight 101 kg LES MICHEL DO [facility] 12-07-2022 06:50-0400 Heart rate 72 /min LES MICHEL DO [facility] 11-25-2022 13:22-0400 Blood Pressure Location LES MICHEL DO [facility] 11-25-2022 13:22-0400 Body height 160 cm LES MICHEL DO [facility] 11-25-2022 13:22-0400 Body weight 100.7 kg LES MICHEL DO [facility] 11-25-2022 13:22-0400 Body weight 39.34 kg/m2 LES MICHEL DO [facility] 11-25-2022 13:22-0400 Diastolic Blood Pressure Non-Invasive 68 1 LES MICHEL DO [facility] 11-25-2022 13:22-0400 Heart rate 97 /min LES MICHEL DO [facility] 11-25-2022 13:22-0400 Respiratory rate 20 /min LES MICHEL DO [facility] 11-25-2022 13:22-0400 Systolic Blood Pressure Non-Invasive 106 1 LES MICHEL DO [facility] 05-06-2022 23:22-0500 Body height 160.[address] Loretta Hermosillo Work Phone: [facility] Work Phone: 05-06-2022 23:22-0500 Body mass index (BMI) [Ratio] 36.3 kg/m2 Dr. Loretta Hermosillo Work Phone: [facility] Work Phone: 05-06-2022 23:22-0500 Body temperature 96.3 [degF] Dr. Loretta Hermosillo Work Phone: [facility] Work Phone: 05-06-2022 23:22-0500 Body weight 92.[address] Loretta Hermosillo Work Phone: [facility] Work Phone: 05-06-2022 23:22-0500 Diastolic blood pressure 80 mm[Hg] Dr. Loretta Hermosillo Work Phone: [facility] Work Phone: 05-06-2022 23:22-0500 Heart rate 85 /min Dr. Loretta Hermosillo Work Phone: [facility] Work Phone: 05-06-2022 23:22-0500 Respiratory rate 16 /min Dr. Loretta Hermosillo Work Phone: [facility] Work Phone: 05-06-2022 23:22-0500 SaO2% (BldA) [Mass fraction] 98 % Dr. Loretta Hermosillo Work Phone: [facility] Work Phone: 05-06-2022 23:22-0500 Systolic blood pressure 113 mm[Hg] Dr. Loretta Hermosillo Work Phone: [facility] Work Phone: Encounters Encounter Date Encounter Type Care Provider Facility Start: 04-09-2025 End: 04-09-2025 ambulatory Torres ROSADO Facility:[facility] Start: 04-02-2025 End: 04-02-2025 Emergency department patient visit [employer] Work Phone: -Emergency Department Work Phone: Start: 03-25-2025 End: 03-25-2025 Patient encounter procedure Torres [place] [facility] Work Phone: Start: 03-25-2025 End: 03-25-2025 ambulatory Ecoark PA-C Work Phone: [facility] Start: 03-04-2025 End: 03-04-2025 ambulatory MICHELLE MARVIN Facility:[facility] Start: 02-17-2025 End: 02-17-2025 Patient encounter procedure Brian Sheldon MD Work Phone: Rheumatology Comment on above: Central sensitizatio n to pain (Primary Dx); Positive ALFONZO (antinuclear antibody); Antiphospholipid syndrome (HCC); Hypermobility syndrome; Fibromyalgia; Irritable bowel syndrome with constipation; Chronic interstitial cystitis Start: 02-17-2025 End: 02-17-2025 ambulatory [facility] Facility:[facility] Start: 01-31-2025 ambulatory [facility] Facili ty:[facility] Start: 01-31-2025 End: 01-31-2025 Subsequent hospital visit by physician [facility] (I-Stat/1.5t) Work Phone: Radiology Comment on [...] 01-11-2025 Subsequent hospital visit by physician Rafael [facility] Work Phone: Radiology Comment on above: Acute right ankle pa in [M25.571] Start: 01-11-2025 End: 01-11-2025 Patient encounter procedure Jay Brendenomaw MICHEAL Work Phone: [facility] Comment on above: Acute right ankle pa in (Primary Dx) Start: 01-11-2025 End: 01-11-2025 ambulatory JAY MOOMAW Facility:[facility] Start: 01-08-2025 End: 01-08-2025 Telephone encounter Antwon Calderon MD Work Phone: Dermatology Start: 01-02-2025 End: 01-02-2025 Subsequent hospital visit by physician Rafael [facility] Work Phone: Radiology Comment on above: Pain in joint, multi ple sites [M25.50] Start: 01-02-2025 End: 01-02-2025 ambulatory [facility] Facility:[facility] Start: 01-02-2025 End: 01-02-2025 Patient encounter procedure Pramod Jason PA-C Work Phone: Rheumatology Comment on above: Pain in joint, multi ple sites (Primary Dx); Pain in right hip; Sacroiliac pain; Right leg paresthesias; History of carpal tunnel syndrome; History of DVT (deep vein thrombosis); History of pulmonary embolism; Lupus anticoagulant disorder (HCC); Livedo reticularis; Rash and nonspecific skin eruption Start: 01-02-2025 End: 01-02-2025 ambulatory [facility] Facility:[facility] Start: 01-01-2025 End: 01-01-2025 Telemedicine consultation with patient Nick Rachel MD Work Phone: [facility] Start: 01-01-2025 End: 01-01-2025 ambulatory Nick Rachel MD Work Phone: [facility] Comment on above: Abnormal finding on MRI of brain (Primary Dx) Start: 12-30-2024 End: 12-30-2024 ambulatory [facility] Facility:[facility] Start: 12-30-2024 End: 12-30-2024 Subsequent hospital visit by physician Mri [facility] (I-Stat/1.5t) Work Phone: Radiology Start: 12-26-2024 End: 12-26-2024 ambulatory [facility] Start: 12-26-2024 Encounter for gynecological examination (general) (routine) without abnormal findings [facility] Start: 12-18-2024 End: 12-18-2024 Patient encounter procedure Nick Rachel MD Work Phone: [facility] Comment on above: White matter abnorma lity on MRI of brain (Primary Dx); Facial numbness; Facial weakness; Sensory deficit, right Start: 12-18-2024 End: 12-18-2024 ambulatory NELI TRIPP Facility:[facility] Start: 12-05-2024 End: 12-05-2024 E-mail encounter from caregiver Pramod Gomez PA-C Work Phone: Rheumatology Start: 12-05-2024 End: 12-05-2024 Patient encounter procedure Pramod Gomez PA-C Work Phone: Rheumatology Comment on above: Upcoming Rheumatolog y Appointment Start: 12-03-2024 End: 12-05-2024 ambulatory Janet Fernandez ROLLING MACHINE OPERATOR [employer]AT[employer] Work Phone: Neurology Comment on above: MRI results Start: 11-14-2024 End: 11-14-2024 Patient encounter procedure Janet Fernandez STRUCTURAL ANALYST.ROLLING MACHINE OPERATOR [employer]IC Work Phone: Neurology Comment on above: Abnormal finding on MRI of brain (Primary Dx); Facial weakness; Facial numbness; Speech disturbance, unspecified type; Migraine without aura and without status migrainosus, not intractable; History of TIA (transient ischemic attack) Start: 11-14-2024 End: 11-14-2024 ambulatory NELI TRIPP Facility:[facility] Start: 10-25-2024 End: 10-25-2024 ambulatory Antwon Escobedo PA-C Work Phone: Neurology Comment on above: Chronic migraine wit hout aura with status migrainosus, not intractable (Primary Dx) Start: 10-25-2024 End: 10-25-2024 Telemedicine consultation with patient Antwon Gregg CRUMP Work Phone: Neurology Start: 10-23-2024 Non-patient / Non-visit Dr. Taye Delvalle MD -[facility] Work Phone: Start: 10-23-2024 ambulatory No Primary Car e Physician Facility:[facility] Start: 10-23-2024 Non-patient / Non-visit Dr. Hal [facility]OR[facility] Start: 10-22-2024 End: 10-23-2024 ambulatory No Primary Care Physician Facility:[facility] Start: 10-22-2024 End: 10-23-2024 Evaluation and management of inpatient Dr. Farhana Harden DO -Progressive Care Unit Work Phone: Start: 10-22-2024 End: 10-23-2024 observation encounter Neli CAMACHOC Work Phone: [facility] Work Phone: Start: 10-15-2024 End: 10-15-2024 Telephone encounter Kirby Monge MD Work Phone: Neurology Comment on above: Medication Authoriza tion Start: 10-14-2024 End: 10-14-2024 ambulatory No Primary Care Physician Facility:[facility] Start: 10-14-2024 Registered Recurring Jarrod ROSADO -Physical Therapy Work Phone: Start: 09-22-2024 End: 09-22-2024 Emergency department patient visit CLINICAL CARE MANAGERSandra Tripp CLINICAL CARE MANAGER-C Work Phone: -Emergency Department Work Phone: Start: 09-20-2024 Registered Recurring Jarrod ROSADO -Physical Therapy Work Phone: Start: 09-14-2024 End: 09-16-2024 Refill Kirby Monge MD Work Phone: Neurology Comment on above: Refill Request Start: 09-07-2024 End: 09-07-2024 Patient encounter procedure Katheryn Katz CLINICAL CARE MANAGER-C [facility] Work Phone: Start: 09-07-2024 End: 09-07-2024 ambulatory Neli Tripp Facility:[facility] Start: 08-28-2024 End: 08-28-2024 ambulatory CHARLINE OROSCO [facility] Start: 08-23-2024 End: 08-23-2024 Patient encounter procedure Jarrod ROSADO [facility] Work Phone: Start: 08-23-2024 End: 08-23-2024 ambulatory Neli Ungerelisa Facility:[facility] Start: 08-17-2024 End: 08-17-2024 Emergency department patient visit CLINICAL CARE MANAGERSandra Tripp CLINICAL CARE MANAGER-C Work Phone: -Emergency Department Work Phone: Start: 07-29-2024 End: 07-29-2024 Subsequent hospital visit by physician Xr [facility] Work Phone: Radiology Comment on above: Right wrist pain [M2 5.531] Start: 07-29-2024 End: 07-29-2024 Office outpatient visit 25 minutes Jeovany Clutter PA-C Work Phone: [facility] Comment on above: Right wrist pain (Pr imary Dx) Start: 07-29-2024 End: 07-29-2024 ambulatory JEOVANY CLUTTER Facility:[facility] Start: 07-18-2024 End: 07-18-2024 Subsequent hospital visit by physician Xr [facility] Work Phone: Radiology Comment on above: URI, acute [J06.9] Start: 07-18-2024 End: 07-18-2024 ambulatory NELI D UNGERER Facility:[facility] Start: 07-18-2024 End: 07-18-2024 Patient encounter procedure Neli Redd APRN.ROLLING MACHINE OPERATOR [employer]ATIC Work Phone: [facility] Comment on above: URI, acute (Primary Dx); Acute cough Start: 07-18-2024 End: 07-18-2024 Telephone encounter Neli Redd APRN.ROLLING MACHINE OPERATOR AUTOMATIC Work Phone: [facility] Comment on above: Results Start: 07-14-2024 End: 07-15-2024 Telephone encounter Paty Arciniega DO Work Phone: Hematology/Oncology Comment on above: Results Start: 06-27-2024 End: 06-27-2024 Telephone encounter Les Mckeon APRN.ROLLING MACHINE OPERATOR AUTOMATIC Work Phone: [facility] Comment on above: Results Start: 06-26-2024 End: 06-26-2024 ambulatory NELI D UNGERER Facility:[facility] Start: 06-26-2024 End: 06-26-2024 Office outpatient new 30 minutes Jeoavny Cljaneth PA-C Work Phone: [facility] Comment on above: COVID-19 virus infec tion (Primary Dx) Start: 06-21-2024 End: 06-21-2024 ambulatory NELI D UNGERER Facility:[facility] Start: 06-19-2024 End: 06-19-2024 Patient encounter procedure Torres Richards [place] [facility] Work Phone: Start: 06-19-2024 End: 06-19-2024 ambulatory Neli Ungerer Facility:[facility] Start: 06-12-2024 End: 06-13-2024 Telephone encounter Paty Ngo Suze BERNAL Work Phone: Hematology/Oncology Comment on above: Results Start: 05-31-2024 End: 05-31-2024 Visit (SP) Office Paty Huber Arciniega DO Work Phone: Hematology/Oncology Comment on above: History of DVT of lo wer extremity (Primary Dx); Factor V Leiden (HCC); Lupus anticoagulant disorder (HCC) Start: 05-24-2024 End: 05-24-2024 Subsequent hospital visit by physician Rafael [facility] Work Phone: Radiology Comment on above: Injury of right shou lder, initial encounter [S49.91XA] Start: 05-24-2024 End: 05-24-2024 ambulatory NELIQUEENIE MAYERER Facility:[facility] Start: 05-24-2024 End: 05-24-2024 Office outpatient visit 15 minutes Les Mckeon APRN.ROLLING MACHINE OPERATOR AUTOMATIC Work Phone: [facility] Comment on above: Injury of right shou lder, initial encounter (Primary Dx) Start: 04-30-2024 End: 04-30-2024 Telephone encounter Kirby Monge MD Work Phone: Neurology Comment on above: Medication Authoriza tion Start: 04-29-2024 End: 04-29-2024 ambulatory Janet Fernandez APRN.ROLLING MACHINE OPERATOR AUT[employer]ATIC Work Phone: Neurology Comment on above: [employer] Start: 04-11-2024 End: 04-11-2024 Telephone encounter Crissy Bell APRN.ROLLING MACHINE OPERATOR AUTOMATIC Work Phone: [facility] Comment on above: Results Start: 04-10-2024 End: 04-10-2024 Subsequent hospital visit by physician Rafael [facility] Work Phone: Radiology Comment on above: Acute pain of left k nee [M25.562] Start: 04-10-2024 End: 04-10-2024 Patient encounter procedure Jay Sharifismael STRUCTURAL ANALYST.ROLLING MACHINE OPERATOR AUTOMATIC Work Phone: [facility] Comment on above: Acute pain of left k nee (Primary Dx) Start: 03-31-2024 End: 04-01-2024 ambulatory Kirby Monge MD Work Phone: Neurology Comment on above: Amavig injection Start: 03-28-2024 End: 03-28-2024 Subsequent hospital visit by physician Xr [facility] Work Phone: Radiology Comment on above: Acute cough [R05.1] Start: 03-28-2024 End: 03-28-2024 Patient encounter procedure Neli Redd STRUCTURAL ANALYST.ROLLING MACHINE OPERATOR AUTOMATIC Work Phone: [facility] Comment on above: Acute cough (Primary Dx) Start: 03-19-2024 End: 03-19-2024 Patient encounter procedure Michelle Marvin STRUCTURAL ANALYST.ROLLING MACHINE OPERATOR AUTOMATIC Work Phone: [facility] Comment on above: Acute cough (Primary Dx); Rhinosinusitis Start: 02-28-2024 End: 02-28-2024 Patient encounter procedure Charline Wooten APRN.ROLLING MACHINE OPERATOR AUTOMATIC Work Phone: Cerebrovascular Comment on above: Transient speech dis turbance (Primary Dx); Transient neurological symptoms; Daytime sleepiness; Snoring; Tobacco use disorder Start: 02-28-2024 End: 02-28-2024 ambulatory CHARLINE WOOTEN Facility:[facility] Start: 02-04-2024 End: 02-05-2024 Telephone encounter Paty [...] Dx); History of DVT of lower extremity; Gzeouw-ap-voenlelha syndrome (HCC) Start: 11-14-2023 End: 11-14-2023 Patient encounter procedure Paty Arciniega DO Work Phone: Hematology/Oncology Start: 10-26-2023 Telephone encounter Neptali tyler MD Work Phone: Hematology/Oncology Comment on above: New Patient Start: 10-25-2023 Telephone encounter Elizabeth tom MD Work Phone: Cerebrovascular Comment on above: Consult Start: 10-25-2023 End: 10-25-2023 Patient encounter procedure Elizabeth Marques MD Work Phone: Cerebrovascular Comment on above: Oowljx-pe-ogqijliah syndrome (HCC) (Primary Dx); Facial weakness; Facial numbness; Speech disturbance, unspecified type; Nicotine abuse [Z72.0] Start: 10-25-2023 End: 10-25-2023 ambulatory ELIZABETH MARQUES Facility:[facility] Start: 10-20-2023 ambulatory Kirby Monge MD Work Phone: Neurology Comment on above: [employer] approved Start: 10-20-2023 E-mail encounter fro m caregiver Kirby Monge MD Work Phone: [...] End: 09-14-2023 Patient encounter procedure Janet Fernandez APRN.CNP Work Phone: Neurology Comment on above: Facial weakness (Nhi eleazar Dx); Facial numbness; Sensory deficit, right; Memory change; Migraine without aura and without status migrainosus, not intractable; Other fatigue; Snoring; Speech disturbance, unspecified type Start: 08-29-2023 End: 08-30-2023 Evaluation and management of inpatient CLINICAL CARE MANAGER. Neli Plascencialisa Work Phone: [facility]-Progressive Care Unit Work Phone: Start: 08-29-2023 End: 08-30-2023 observation encounter CLINICAL CARE MANAGER. Neli Tripp Work Phone: [facility] Work Phone: Start: 08-28-2023 Telephone encounter Janet Dominguez APRN.ROLLING MACHINE OPERATOR AUTOMATIC Work Phone: Neurology Start: 07-27-2023 End: 07-27-2023 Patient encounter procedure CLINICAL CARE MANAGER. Neli Plascenciar Work Phone: [facility] Work Phone: Start: 07-18-2023 End: 07-18-2023 Emergency department patient visit CLINICAL CARE MANAGER. Neli Plascenciar Work Phone: [facility]-Emergency Department Work Phone: Start: 07-16-2023 End: 07-16-2023 Patient encounter procedure CLINICAL CARE MANAGER. Neli Plascenciar Work Phone: [facility] Work Phone: Start: 06-02-2023 End: 06-02-2023 Patient encounter procedure CLINICAL CARE MANAGER. Neli Plascenciar Work Phone: [facility] Work Phone: Start: 05-22-2023 End: 05-22-2023 Patient encounter procedure CLINICAL CARE MANAGER. Neli Plascenciar Work Phone: [facility] Work Phone: Start: 05-22-2023 Non-patient / Non-visit CLINICAL CARE MANAGER. Jeb Tripp Work Phone: [facility] Work Phone: Start: 05-16-2023 End: 05-17-2023 ambulatory JANET FERNANDEZ Facility:[facility] Start: 05-12-2023 Telephone encounter Janet Dominguez MARLEEN.ROLLING MACHINE OPERATOR AUTOMATIC Work Phone: Neurology Comment on above: Insurance Authorizat ion (Authorization for MRI received. /Auth # [id number]) Start: 04-29-2023 End: 04-29-2023 Emergency department patient visit CLINICAL CARE MANAGER. Neli Tripp Work Phone: [facility]-Emergency Department Work Phone: Start: 04-25-2023 End: 04-25-2023 Patient encounter procedure CLINICAL CARE MANAGER. Neli Tripp Work Phone: [facility] Work Phone: Start: 03-30-2023 Telephone encounter Neurology Provid er Neurology Comment on above: Referral Request Start: 03-16-2023 Non-patient / Non-visit CLINICAL CARE MANAGER. Jeb Plascenciar Work Phone: [facility] Work Phone: Start: 03-16-2023 Non-patient / Non-visit CLINICAL CARE MANAGER. Jeb Plascenciar Work Phone: [facility] Start: 03-15-2023 End: 03-16-2023 Evaluation and management of inpatient [facility] Work Phone: Start: 03-15-2023 observation encounter [facility] Work Phone: Start: 12-07-2022 End: 12-08-2022 ambulatory JAYDE ALCAZAR STRUCTURAL ANALYST-ROLLING MACHINE OPERATOR AUTOMATIC Facility:B Start: 12-07-2022 End: 12-08-2022 Observation LES MICHEL DO [facility] Start: 11-25-2022 End: 11-26-2022 ambulatory [facility]-C Facility:B Start: 11-25-2022 End: 11-26-2022 ambulatory [facility] PA-C Facility:B Start: 11-25-2022 End: 11-25-2022 Patient encounter procedure LES MICHEL DO [facility] Start: 11-25-2022 End: 11-25-2022 Admission to establishment LES MICHEL DO [facility] Start: 05-06-2022 End: 05-07-2022 Emergency department patient visit Dr. Loretta Hermosillo Work Phone: [facility] Start: 03-28-2022 Non-patient / Non-visit Dr. Jeb Hermosillo Work Phone: [facility] Start: 03-28-2022 End: 03-28-[address] Loretta Hermosillo Work Phone: [facility] Work Phone: Start: 03-28-2022 End: 03-28-[address] Loretta Hermosillo Work Phone: [facility]/Neurology Procedures Date Procedure Procedure Detail Performing Clinician Start: 04-02-2025 Radex ankle complete minimum 3 views [facility] PA-C Work Phone: Start: 01-30-2025 Plain x-ray of pelvi s and lower extremity [facility] PA-C Work Phone: Start: 01-11-2025 Radex ankle complete minimum 3 views Jay Moomaw STRUCTURAL ANALYST.ROLLING MACHINE OPERATOR AUTOMATIC Work Phone: Start: 12-30-2024 Mri spinal canal cer vical w/o & w/contr matrl Janet Fernandez STRUCTURAL ANALYST.ROLLING MACHINE OPERATOR AUTOMATIC Work Phone: Start: 10-23-2024 MRI of brain with contrast Neli Ungerer CLINICAL CARE MANAGER-C Work Phone: Start: 10-23-2024 Estimated creatinine clearance Neli Ungerer CLINICAL CARE MANAGER-C Work Phone: Start: 10-23-2024 Lymphocyte percent differential count Neli Ungerer CLINICAL CARE MANAGER-C Work Phone: Start: 10-23-2024 Serum inorganic phos phate measurement Neli Ungerer CLINICAL CARE MANAGER-C Work Phone: Start: 10-22-2024 CT angiography of he ad and neck Neli Ungerer CLINICAL CARE MANAGER-C Work Phone: Start: 10-22-2024 CT of head without contrast Neli Ungerer CLINICAL CARE MANAGER-C Work Phone: Start: 10-22-2024 Estimated creatinine clearance Neli Ungerer CLINICAL CARE MANAGER-C Work Phone: Start: 10-22-2024 Lymphocyte percent differential count Neli Ungerer CLINICAL CARE MANAGER-C Work Phone: Start: 09-22-2024 Plain x-ray of wrist CLINICAL CARE MANAGER . Neli Laloerer CLINICAL CARE MANAGER-C Work Phone: Start: 07-29-2024 Radex wrist complete minimum 3 views Jeovany Clutter PA-C Work Phone: Start: 07-18-2024 Radiologic exam ches t 2 views Neli Redd STRUCTURAL ANALYST.ROLLING MACHINE OPERATOR AUTOMATIC Work Phone: Start: 07-18-2024 STREP A MOLECULAR (POC) Neli Redd STRUCTURAL ANALYST.ROLLING MACHINE OPERATOR AUTOMATIC Work Phone: Start: 05-24-2024 Radex shoulder compl ete minimum 2 views Les Mckeon STRUCTURAL ANALYST.ROLLING MACHINE OPERATOR AUTOMATIC Work Phone: Start: 04-10-2024 Radiologic exam knee complete 4/more views Jay Delgado STRUCTURAL ANALYST.ROLLING MACHINE OPERATOR AUTOMATIC Work Phone: Start: 03-28-2024 Radiologic exam ches t 2 views Neli Redd STRUCTURAL ANALYST.ROLLING MACHINE OPERATOR AUTOMATIC Work Phone: Start: 02-28-2024 Follow-up visit Follow Up URSZULA WOOTEN Start: 08-30-2023 MRI of brain with contrast CLINICAL CARE MANAGER. Neli Tripp Work Phone: Start: 08-30-2023 CT angiography of he ad and neck CLINICAL CARE MANAGER. Neli Mayerer Work Phone: Start: 08-29-2023 Plain chest X-ray CLINICAL CARE MANAGER. Merline Tripp Work Phone: Start: 08-29-2023 CT of head without contrast CLINICAL CARE MANAGER. Neli Mayerer Work Phone: Start: 04-29-2023 X-ray of both feet CLINICAL CARE MANAGER. Neli Mayerer Work Phone: Start: 03-15-2023 MRI of brain without contrast CLINICAL CARE MANAGER. Neli Mayerelisa Work Phone: Start: 03-15-2023 Plain chest X-ray Start: 03-15-2023 CT angiography of he ad and neck Start: 03-15-2023 CT of head without contrast Start: 03-15-2023 Urine culture CLINICAL CARE MANAGER. Christa Tripp Work Phone: Start: 12-07-2022 Discectomy [...] DTaP,Tdap,Td Vaccine (2 - Td or Tdap) [facility] Start: 08-28-2025 End: 08-28-2025 Patient encounter procedure 08/28/2025 1:30 PM EDT Office Visit Cerebrovascular [address] [place] [address] Charline Wooten APRN.ROLLING MACHINE OPERATOR AUTOMATIC [address] [place] [address] [place] [address] 1 year follow up Cerebrovascular Comment on above: 1 year follow up Start: 04-09-2025 End: 04-09-2025 Patient encounter procedure Departed Physician/Provider Office Visit [facility] Work Phone: Start: 04-02-2025 [facility] Start: 04-02-2025 Radex ankle complete minimum 3 views Ankle min 3 Views [facility] Start: 04-02-2025 End: 04-02-2025 Emergency department patient visit Departed Emergency -Emergency Department Work Phone: Start: 03-21-2025 End: 03-21-2025 Patient encounter procedure 03/21/2025 12:45 PM EDT Office Visit Dermatology [address] [place] [address] [place] [address] Antwon Calderon MD [address] [place] [address] [address] [place], [place] [id number] Rash, spreading Dermatology Comment on above: Rash, spreading Start: 02-20-2025 End: 02-20-2025 Follow-up encounter Neurology Comment on above: follow up medication check Start: 02-17-2025 End: 02-17-2025 Patient encounter procedure 02/17/2025 1:00 PM EDT Office Visit Rheumatology [address] [place] [address] Brian Sheldon MD [facility] [address] [address] NEW CONSULT Rheumatology Comment on above: NEW CONSULT Start: 02-10-2025 Influenza vaccination [facility] Start: 01-30-2025 [facility] Start: 01-30-2025 Plain x-ray of pelvis and lower extremity HIP, UNI W/ Pelvis 2-3 Views [facility] Start: 01-24-2025 End: 01-24-2025 Patient encounter procedure 01/24/2025 1:00 PM EDT Appointment Radiology [address] [place] [address] Pain in joint, multiple sites [M25.50] Radiology Comment on above: Pain in joint, multiple sites [M25.50] Start: 01-23-2025 [facility] Start: 01-15-2025 End: 01-15-2025 Patient encounter procedure 01/15/2025 2:00 PM EDT Office Visit Rheumatology [address] [place] [place] [address] Pramod Gomez PA-C [address] [place] [address] 2 - 3 weeks follow up Rheumatology Comment on above: 2 - 3 weeks follow up Start: 01-02-2025 End: 04-03-2025 ALFONZO BY IFA SCREEN [facility] Comment on above: Expected: 01/02/2025, Expires: Start: 01-02-2025 End: 04-03-2025 C reactive protein [Mass/volume] in Serum or Plasma [facility] Comment on above: Expected: 01/02/2025, Expires: Start: 01-02-2025 End: 04-03-2025 Complement C3 [Mass/volume] in Serum or Plasma [facility] Comment on above: Expected: 01/02/2025, Expires: Start: 01-02-2025 End: 04-03-2025 Complement C4 [Mass/volume] in Serum or Plasma [facility] Comment on above: Expected: 01/02/2025, Expires: Start: 01-02-2025 End: 04-03-2025 Cyclic citrullinated peptide IgG Ab [Units/volume] in Serum or Plasma [facility] Comment on above: Expected: 01/02/2025, Expires: Start: 01-02-2025 End: 04-03-2025 DNA double strand Ab [Units/volume] in Serum by Immunoassay [facility] Comment on above: Expected: 01/02/2025, Expires: Start: 01-02-2025 End: 04-03-2025 Extractable nuclear Ab panel - Serum [facility] Comment on above: Expected: 01/02/2025, Expires: Start: 01-02-2025 End: 01-02-2025 Patient encounter procedure 01/02/2025 2:00 PM EDT Office Visit Rheumatology [address] [place], [place] [id number] Pramod Gomez PA-C [address] [place], [place] [id number] RA rescheduled frm 12/11 Rheumatology Comment on above: RA rescheduled frm 12/11 Start: 01-02-2025 End: 04-03-2025 Protein/Creatinine [Mass Ratio] in Urine [facility] Comment on above: Expected: 01/02/2025, Expires: Start: 01-02-2025 End: 04-03-2025 Rheumatoid factor [Units/volume] in Serum or Plasma [facility] Comment on above: Expected: 01/02/2025, Expires: Start: 01-01-2025 End: 01-01-2025 Follow-up encounter 01/01/2025 2:00 PM EDT [address] [address] Nick Rachel MD [address] [place] [address] Follow up with [facility] Comment on above: Follow up with [facility] Start: 12-30-2024 End: 12-30-2024 Patient encounter procedure 12/30/2024 2:30 PM EDT Appointment Radiology [address] [place], [place] [id number] MRI THORACIC SPINE WO/W IVCON Radiology Comment on above: MRI THORACIC SPINE WO/W IVCON Start: 12-11-2024 End: 12-11-2024 Patient encounter procedure 12/11/2024 1:00 PM EDT Office Visit Rheumatology [address] [place] [address] Pramod Gomez PA-C [address] [place] [address] RA Rheumatology Comment on above: RA Start: 11-14-2024 End: 11-14-2024 Patient encounter procedure 11/14/2024 10:00 AM EDT Office Visit Neurology [address] [place] [address] Janet Fernandez APRN.ROLLING MACHINE OPERATOR AUTOMATIC [address] [address] New ER/HD Follow Up Visit - [facility] Neurology Comment on above: New ER/HD Follow Up Visit - [facility] Start: 10-23-2024 Patient discharge [facility] Start: 10-22-2024 End: 10-22-2024 [facility] Start: 10-22-2024 Following clinical pathway protocol [facility] Start: 10-22-2024 Aspiration precautions [facility] Start: 10-22-2024 Assessment of risk of venous thromboembolism [facility] Start: 10-22-2024 Cardiac monitoring [facility] Start: 10-22-[address] [facility] Start: 10-22-2024 Consultation [facility] Start: 10-22-2024 Continuous pulse oximetry [facility] Start: 10-22-2024 Elevation of head of bed [facility] Start: 10-22-2024 Exercises [facility] Start: 10-22-2024 Incentive spirometry [facility] Start: 10-22-2024 Inhalation therapy procedure [facility] Start: 10-22-2024 Insertion of catheter into peripheral vein [facility] Start: 10-22-2024 Measuring intake and output [facility] Start: 10-22-2024 Notification of physician [facility] Start: 10-22-2024 Oxygen therapy [facility] Start: 10-22-2024 Patient referral to dietitian [facility] Start: 10-22-2024 Providing care according to standard [facility] Start: 10-22-2024 Referral to occupational therapist [facility] Start: 10-22-2024 Referral to service [facility] Start: 10-22-2024 Speech therapy assessment [facility] Start: 10-22-2024 Tobacco use cessation education [facility] Start: 10-22-2024 Vital signs measurements [facility] Start: 10-22-2024 MRI of brain with contrast Brain W/WO Contrast [facility] Start: 10-22-2024 Verification routine [facility] Start: 10-22-2024 Hospital admission, emergency, from emergency room, medical nature [facility] Start: 10-22-2024 Admission procedure [facility] Start: 10-22-2024 Oxygen therapy [facility] Start: 10-22-2024 End: 10-22-2024 [facility] Start: 09-22-2024 [facility] Start: 08-28-2024 End: 08-28-2024 Patient encounter procedure 08/28/2024 11:30 AM EDT Office Visit Cerebrovascular [address] [place] [address] Charline Wooten APRN.ROLLING MACHINE OPERATOR AUTOMATIC [address] [address] 6 month follow up Cerebrovascular Comment on above: 6 month follow up Start: 08-17-2024 End: 08-17-2024 [facility] Start: 06-21-2024 End: 06-21-2024 ambulatory 06/21/2024 1:30 PM EST Results Only [facility] [address] [place] [address] lab [facility] Comment on above: lab Start: 06-12-2024 End: 09-11-[address] LUPUS ANTICOAG PL Lab Routine Lupus anticoagulant disorder (HCC) Expected: 06/12/2024, Expires: 09/11/2024 [facility] Work Phone: Comment on above: Expected: 06/12/2024, Expires: Start: 06-07-2024 End: 06-07-2024 ambulatory [facility] Comment on above: D Dimer 4 MO OV/LAB EARLY* Start: 05-31-2024 End: 05-31-2024 ambulatory [facility] Comment on above: D Dimer 4 MO OV/LAB EARLY* r /s from 06/07 Start: 02-28-2024 End: 02-28-2024 Patient encounter procedure 02/28/2024 11:00 AM EDT Office Visit Cerebrovascular [address] [place], [place] [id number] Charline Wooten APRN.ROLLING MACHINE OPERATOR AUTOMATIC [address] [place] [address], [place] [id number] 4 month follow up Cerebrovascular Comment on above: 4 month follow up Start: 02-11-2024 Covid-19 Vaccine ( season) Covid-19 Vaccine ( season) [facility] Start: 02-11-2024 Covid-19 Vaccine ( season) Covid-19 Vaccine ( season) [facility] Start: 02-11-2024 Influenza [facility] Start: 01-17-2024 End: 04-17-2024 HYPERCOAG DIAG PNL HYPERCOAG DIAG PNL Lab Routine History of DVT of lower extremity History of embolic stroke Expected: 01/17/2024, Expires: 04/17/2024 [facility] Work Phone: Comment on above: Expected: 01/17/2024, Expires: Start: 01-11-2024 End: 04-11-2024 Fibrin D-dimer FEU [Mass/volume] in Platelet poor plasma D-DIMER Lab Routine History of DVT of lower extremity Expected: 01/11/2024, Expires: 04/11/2024 [facility] Work Phone: Comment on above: Expected: 01/11/2024, Expires: Start: 11-14-2023 End: 11-14-2023 ambulatory 11/14/2023 2:00 PM EDT Visit (SP) Office Hematology/Oncology [address] [place], [place] [address] Paty Arciniega DO [address] [place], [place] [id number] 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 9] Start: 11-07-2023 End: 11-07-2023 Patient encounter procedure 11/07/2023 12:00 PM EDT Office Visit Cerebrovascular Center [address] [place] [address] Christiano Brennan MD [address] [place] [address] Facial weakness [R29.810] [facility] Center Comment on above: Facial weakness [R29.810] Start: 10-25-2023 End: 10-25-2023 Patient encounter procedure 10/25/2023 10:00 AM EDT Office Visit Cerebrovascular [address] [place] [address] Elizabeth Marques MD [address] [place] [address] CONSULT TO NEUROLOGY- Cerebrovascular Center Cerebrovascular Comment on above: CONSULT TO NEUROLOGY- Cerebrovascular Ce nter Start: 10-03-2023 End: 10-03-2023 Patient encounter procedure 10/03/2023 10:00 AM EDT Office Visit Neurology [address] [place] [address] Snoring; Other fatigue Neurology Comment on above: Snoring; Other fatigue Start: 08-30-2023 [facility] Start: 08-30-2023 Patient discharge [facility] Start: 08-30-[address] [facility] Start: 08-30-2023 Assessment of risk of venous thromboembolism [facility] Start: 08-30-2023 Cardiac monitoring [facility] Start: 08-30-[address] [facility] Start: 08-30-2023 Continuous pulse oximetry [facility] Start: 08-30-2023 Elevation of head of bed [facility] Start: 08-30-2023 Exercises [facility] Start: 08-30-2023 Fall prevention [facility] Start: 08-30-2023 Implementation of planned interventions [facility] Start: 08-30-2023 Incentive spirometry [facility] Start: 08-30-2023 Insertion of catheter into peripheral vein [facility] Start: 08-30-2023 Introduction of urinary catheter [facility] Start: 08-30-2023 Measuring intake and output [facility] Start: 08-30-2023 Notification of physician [facility] Start: 08-30-2023 Patient referral to dietitian [facility] Start: 08-30-2023 Providing care according to standard [facility] Start: 08-30-2023 Provision of activity privileges [facility] Start: 08-30-2023 Referral to occupational therapist [facility] Start: 08-30-2023 Referral to service [facility] Start: 08-30-2023 Speech therapy assessment [facility] Start: 08-30-2023 Telemedicine consultation with patient [facility] Start: 08-30-2023 Tobacco use cessation education [facility] Start: 08-30-2023 Following clinical pathway protocol [facility] Start: 08-29-2023 Admission procedure [facility] Start: 08-29-2023 End: 08-29-2023 Hospital admission, emergency, from emergency room, medical nature [facility] Start: 08-29-2023 End: 08-30-2023 Oxygen therapy [facility] Start: 08-29-2023 End: 08-30-2023 [facility] Start: 07-18-2023 [facility] Start: 06-12-2023 Depression Assessment Depression Assessment [facility] Start: 04-29-2023 [facility] Start: 03-16-2023 Patient discharge [facility] Start: 03-15-2023 Following clinical pathway protocol [facility] Start: 03-15-2023 Aspiration precautions [facility] Start: 03-15-2023 Assessment of risk of venous thromboembolism [facility] Start: 03-15-2023 Cardiac monitoring [facility] Start: 03-15-[address] [facility] Start: 03-15-2023 Continuous pulse oximetry [facility] Start: 03-15-2023 Elevation of head of bed [facility] Start: 03-15-2023 Exercises [facility] Start: 03-15-2023 Fall prevention [facility] Start: 03-15-2023 Implementation of planned interventions [facility] Start: 03-15-2023 Incentive spirometry [facility] Start: 03-15-2023 Inhalation therapy procedure [facility] Start: 03-15-2023 Insertion of catheter into peripheral vein [facility] Start: 03-15-2023 Introduction of urinary catheter [facility] Start: 03-15-2023 Measuring intake and output [facility] Start: 03-15-2023 Notification of physician [facility] Start: 03-15-2023 Oxygen therapy [facility] Start: 03-15-2023 Patient referral to dietitian [facility] Start: 03-15-2023 Providing care according to standard [facility] Start: 03-15-2023 Provision of activity privileges [facility] Start: 03-15-2023 Referral to occupational therapist [facility] Start: 03-15-2023 Referral to service [facility] Start: 03-15-2023 Speech therapy assessment [facility] Start: 03-15-2023 Tobacco use cessation education [facility] Start: 03-15-2023 [facility] Start: 03-15-2023 Vital signs measurements [facility] Start: 03-15-2023 Admission procedure [facility] Start: 03-15-2023 Verification routine [facility] Start: 03-15-[address] [facility] Start: 03-15-2023 End: 03-15-2023 [facility] Start: 03-15-2023 Oxygen therapy [facility] Start: 03-15-2023 Bacteria identified in Urine by Culture Urine Culture [facility] Start: 03-15-2023 Iiv4 vacc presrv free 0.5 ml dos for im use IIV4 VACC NO PRSV 0.5 ML IM [facility] Start: 03-15-2023 Patient referral to dietitian [facility] Start: 02-10-2023 Covid-19 Vaccine () Covid-19 Vaccine () [facility] Start: 02-10-2023 Influenza vaccination Influenza Vaccine (#1) [facility] Start: 06-12-2022 Depression Assessment Depression Assessment [facility] Start: 2016 HPV Testing HPV Testing [facility] Start: 2016 Screening for malignant neoplasm of cervix HPV Testing [facility] Start: 11-27-2014 Pneumococcal vaccination [facility] Start: 2013 HPV Vaccine (1 - 3-dose SCDM series) HPV Vaccine (1 - 3-dose SCDM series) [facility] Start: 10-25-2007 Pap Testing Pap Testing [facility] Start: 10-25-2007 Screening for malignant neoplasm of cervix [facility] Start: 2005 Hepatitis B Vaccine (1 of 3 - 19+ 3-dose series) Hepatitis B Vaccine (1 of 3 - 19+ 3-dose series) [facility] Start: 2005 Urine microalbumin profile DTaP,Tdap,Td Vaccine (1 - Tdap) [facility] Start: 2004 Anxiety Screening Anxiety Screening [facility] Start: 2004 Depression Screening Depression Screening [facility] Start: 2004 Hepatitis C Screening Hepatitis C Screening [facility] Start: 2004 Hepatitis C screening Hepatitis C Screening [facility] Start: 2004 HIV Screening HIV Screening [facility] Start: 2004 HIV screening HIV Screening [facility] Start: 04-26-1987 Covid-19 Vaccine (#1) Covid-19 Vaccine (#1) [facility] Start: 1986 Hepatitis B Vaccine (1 of 3 - 3-dose series) Hepatitis B Vaccine (1 of 3 - 3-dose series) [facility] Amphetamine [Mass/volume] in Urine [facility] Benzodiazepine measurement, urine [facility] Cocaine measurement, urine [facility] COVID & INFLUENZA A/ B & RSV PCR, ROUTINE COVID & INFLUENZA A/B & RSV PCR, ROUTINE Microbiology Routine COVID-19 virus infection Ordered: 06/26/2024 [facility] Work Phone: Comment on above: Ordered: 06/26/2024 Hemoglobin A1c/Hemoglobin.total in Blood [facility] End: 09-13-2024 HOME SLEEP APNEA TEST (HSAT) HOME SLEEP APNEA TEST (HSAT) Procedures Routine Snoring Other fatigue 1 Occurrences starting 09/14/2023 until 09/13/2024 [facility] Work Phone: Comment on above: 1 Occurrences starting 09/14/2023 until 09/13/2024 Measurement of 3,4-methylenedioxymetha mphetamine in urine [facility] Methadone measuremen t, urine [facility] End: 12-14-2025 MR Cervical spine WO and W contrast IV MRI CERVICAL SPINE WO/W IVCON Radiology Routine 1 Occurrences starting 11/14/2024 until 12/14/2025 [facility] Work Phone: Comment on above: 1 Occurrences starting 11/14/2024 until 12/14/2025 MR Pelvis WO contrast MRI PELVIS ORTHO GENERAL WO IVCON Radiology Routine Pain in joint, multiple sites Sacroiliac pain Encounter for screening for other musculoskeletal disorder Inflammatory back pain 01/31/2025 12:59 PM EDT [facility] Work Phone: End: 12-14-2025 MR Thoracic spine WO and W contrast IV MRI THORACIC SPINE WO/W IVCON Radiology Routine 1 Occurrences starting 11/14/2024 until 12/14/2025 [facility] Comment on above: 1 Occurrences starting 11/14/2024 until 12/14/2025 Patient Education [facility] Work Phone: Patient referral [facility] Work Phone: pH of Urine [facility] Phencyclidine [Presence] in Urine [facility] Troponin T.cardiac [Mass/volume] in Serum or Plasma by High sensitivity method [facility] Troponin T.cardiac [Mass/volume] in Serum or Plasma by High sensitivity method [facility] Urine barbiturate measurement [facility] Urine cannabinoid measurement [facility] Urine opiate measurement [facility] End: 02-01-2026 XR Knee - right 4 Views XR KNEE GENERAL 4V AP BOTH/PA BOTH/LAT/MERC RIGHT Radiology Routine Pain in joint, multiple sites Right leg paresthesias 1 Occurrences starting 01/02/2025 until 02/01/2026 [facility] Comment on above: 1 Occurrences starting 01/02/2025 until 02/01/2026 XR Knee - right 4 Views XR KNEE GENERAL 4V AP BOTH/PA BOTH/LAT/MERC RIGHT Radiology Routine Pain in joint, multiple sites Right leg paresthesias 01/02/2025 3:46 PM EDT [facility] End: 02-01-2026 XR Pelvis and Hip - right AP and Lateral frog XR HIP GENERAL 3V PELV/AP/LAT RIGHT Radiology Routine Pain in joint, multiple sites Right leg paresthesias 1 Occurrences starting 01/02/2025 until 02/01/2026 [facility] Work Phone: Comment on above: 1 Occurrences starting 01/02/2025 until 02/01/2026 XR Pelvis and Hip - right AP and Lateral frog XR HIP GENERAL 3V PELV/AP/LAT RIGHT Radiology Routine Pain in joint, multiple sites Right leg paresthesias 01/02/2025 3:41 PM EDT [facility] End: 02-01-2026 XR Sacroiliac Joint Views XR SACROILIAC JOINTS 2V AP PELVIS/FERGUESON Radiology Routine Pain in joint, multiple sites Right leg paresthesias 1 Occurrences starting 01/02/2025 until 02/01/2026 [facility] Comment on above: 1 Occurrences starting 01/02/2025 until 02/01/2026 XR Sacroiliac Joint Views XR SACROILIAC JOINTS 2V AP PELVIS/FERGUESON Radiology Routine Pain in joint, multiple sites Right leg paresthesias 01/02/2025 3:42 PM EDT [facility] Immunizations Immunization Date Immunization Notes Care Provider Magi moralez 03-16-2023 influenza, injectabl e, quadrivalent, preservative free CLINICAL CARE MANAGER. Neli Tripp Work Phone: [facility] 03-16-2023 influenza virus vacc ine, unspecified formulation Paty Arciniega DO Work Phone: [facility] 11-11-2020 SARS-CoV-2 (COVID-19 ) mRNA-1273 vaccine LES MICHEL DO [facility] Comment on above: Result Comment: 2022: TPVALL 10-16-2020 SARS-CoV-2 (COVID-19 ) mRNA-1273 vaccine LES MICHEL DO [facility] Comment on above: Result Comment: 2022: TPVALL 05-13-2019 influenza virus vacc ine, unspecified formulation LES MICHEL DO [facility] 03-12-2017 influenza virus vacc ine, unspecified formulation LES MICHEL DO [facility] 06-08-2016 tetanus toxoid, redu cory diphtheria toxoid, and acellular pertussis vaccine, adsorbed LES MICHEL DO [facility] 04-08-2016 influenza virus vacc ine, unspecified formulation LES MICHEL DO [facility] 06-27-2015 influenza virus vacc ine, unspecified formulation LES MICHEL DO [facility] 05-14-2014 influenza virus vacc ine, unspecified formulation LES MICHEL DO [facility] 11-27-2013 pneumococcal polysaccharide vaccine, 23 valent LES MICHEL DO [facility] 11-27-[address] Rosetta Hermosillo Work Phone: [facility] Work Phone: 11-27-2013 pneumococcal vaccine , unspecified formulation Dr. Loretta Hermosillo Work Phone: [facility] 11-10-2013 pneumococcal polysaccharide vaccine, 23 valent LES MICHEL DO [facility] 02-27-[address] Loretta Hermosillo Work Phone: [facility] 01-11-1999 measles/mumps/rubell a virus vaccine LES MICHEL DO [facility] Payers Date Payer Category Payer Unknown [id number] 2024 Self-pay [id number] 2022 Medicaid [id number] 2022 Medicaid [id number] 2016 Unknown [id number] 1986 Unknown [id number] 2.16.8 [id number] 1986 Unknown [id number] 2.16.8 [id number] 1986 Unknown [id number] 2.16.8 40.1.039421.3.579.2.627 1986 Unknown [id number] 2.16.8 40.1.931897.3.579.2.651 Unknown [id number] 2.16.8 40.1.520562.3.579.2.462 Unknown [id number] 2.16.8 40.1.445293.3.579.2.462 Unknown [id number] 2.16.8 40.1.481233.3.579.2.462 Unknown [id number] 2.16.8 40.1.024677.3.579.2.462 Unknown [id number] 2.16.8 40.1.496406.3.579.2.462 Unknown [id number] 2.16.8 40.1.177679.3.579.2.462 Unknown [id number] 2.16.8 40.1.308690.3.579.2.462 Unknown [id number] 2.16.8 40.1.299497.3.579.2.462 Unknown [id number] 2.16.8 40.1.403553.3.579.2.462 Unknown [id number] 2.16.8 40.1.428888.3.579.2.462 Unknown [id number] 2.16.8 40.1.941984.3.579.2.462 Unknown [id number] 2.16.8 40.1.047358.3.579.2.462 Unknown [id number] 2.16.8 40.1.411401.3.579.2.462 Unknown [id number] 2.16.8 40.1.539493.3.579.2.462 Unknown [id number] 2.16.8 [id number] Social History Date Type Detail Facility Start: 04-13-2021 End: 08-30-2023 Tobacco smoking status NHIS Unknown if ever smoked [facility] Start: 09-29-2020 None [facility] Start: 06-17-2019 With Family [facility] Start: 10-10-2020 Cigarettes [facility] Start: 1985 Sex Assigned At Female W [facility] Start: 11-25-2022 Tobacco smoking status Heavy tobacco smoker (finding) [facility] Sex Assigned At Sex [facility] Start: 1985 Sex Assigned At Not on file [facility] Start: 04-13-2023 End: 05-31-2023 Gender identity Not on file [facility] Start: 03-16-2023 Cigarettes;Vapor [facility] Start: 04-13-2023 End: 04-02-2025 Tobacco smoking status NHIS Smokes tobacco daily [facility] Start: 12-17-2002 History of tobacco use Cigarette Smoker [facility] Start: 04-13-2023 End: 05-31-2023 Cigarettes smoked current (pack per day) - Reported 1 [facility] Start: 04-13-2023 End: 02-28-2024 Tobacco use and exposure Smokeless tobacco non-user [facility] Start: 04-13-2023 End: 02-17-2025 Alcohol intake Ex-drinker (finding) [facility] Start: 05-13-2012 National Score (1-100), lower number is lower risk 75 [facility] Start: 08-17-2024 End: 09-22-2024 Sex Female (finding) [facility] NEGATED: Highlighted row [facility] NEGATED: Highlighted row Not [facility] Goals Date Patient Goal Desired Activity /State Functional Status Date Assessment Result Facility 10-23-2024 Functional status Ambulates [facility] Work Phone: 08-30-2023 Functional status Ambulates [facility] Work Phone: 03-16-2023 Functional status Activity Abili ty Standby Assist [facility] Work Phone: 12-08-2022 Functional Status Room check performed [facility] 12-08-2022 Functional Status [place] 12-08-2022 Functional Status IND [place] 12-08-2022 Functional Status Single level home [facility] 12-08-2022 Functional Status Demonstrates C orrect Call Light Use Yes [facility] 12-07-2022 Functional Status SCD On/Re-appl ied bilateral knee high [facility] 12-07-2022 Functional Status Independent [place] 12-07-2022 Functional Status 75 [place] 12-07-2022 Functional Status ice on [place] 12-07-2022 Functional Status Maintained, More than 8 hours [facility] 11-25-2022 Functional Status Sensory Deficits None [facility] Mental Status Date Assessment Result Facility 10-23-2024 Cognitive function Voice/Name [facility] Work Phone: 10-22-2024 Cognitive function Level Of Cons ciousness Awake;Alert;Appropriate;Follow s Commands [facility] Work Phone: 08-30-2023 Cognitive function Voice/Name [facility] Work Phone: 08-29-2023 Cognitive function Voice/Name [facility] Work Phone: 07-18-2023 Cognitive function Level Of Cons ciousness Awake;Alert;Appropriate;Follow s Commands [facility] Work Phone: 03-16-2023 Cognitive function Voice/Name [facility] Work Phone: 03-15-2023 Cognitive function Voice/Name [facility] Work Phone: 12-08-2022 Mental Status Oriented x 4 [facility] 12-08-2022 [facility] Status [facility] 12-07-2022 Mental Status [facility] Clinical Notes 12-07-2022 to 04-02-2025 Note Date & Type Note Facility 04-02-2025 Radiology Diagnostic study note [facility] [address] [place] [address] Ankle min 3 Views MR#: [id number] Acct: [id number] Name: CODY SANTANA Rep #: [id number] : 1985 F 39 From: Reynaldo Spence MD PCP: Colton Kunz PA-C Status: REG E R Study:Ankle min 3 Views Date of Exam: Exam# [id number] Ordering Dr: Provider ,Ed P. PROCEDURE: ANKLE MIN 3 VIEWS 04/02/2025 REASON FOR EXAM: FALL, PAIN TECHNIQUE: Procedure Code: RADANK Modality: DX Procedure: ANKLE MIN 3 VIEWS Laterality: FINDINGS: No evidence acute fracture or dislocation. No ankle joint effusion. The soft tissues are unremarkable. RAD/Ankle min 3 Views IMPRESSION: No acute osseous abnormalities. Reading Location: [id number] CC: THERON Kunz; ED PHYSICIAN PROVIDER ~ Chief Of Surgery: Signed [facility] 04-02-2025 Radiology Diagnostic study note [facility] [address] [place] [address] Ankle min 3 Views MR#: [id number] Acct: [id number] Name: CODY SANTANA Rep #: [id number] : 1985 F 39 From: Reynaldo Spence MD PCP: Colton Kunz PA-C Status: REG E R Study:Ankle min 3 Views Date of Exam: Exam# [id number] Ordering Dr: Provider ,Ed P. PROCEDURE: ANKLE MIN 3 VIEWS 04/02/2025 REASON FOR EXAM: FALL TECHNIQUE: Procedure Code: RADANK Modality: DX Procedure: ANKLE MIN 3 VIEWS Laterality: FINDINGS: No evidence of acute fracture or dislocation. No ankle joint effusion. The soft tissues are unremarkable. RAD/Ankle min 3 Views IMPRESSION: No acute osseous abnormalities. Reading Location: [id number] CC: THERON Kunz; ED PHYSICIAN PROVIDER ~ Chief Of Surgery: Signed [facility] 04-02-2025 Discharge summary [facility] 04-02-2025 Discharge summary Note Date/Time April 03, 2025 12:49am [facility] Medical Records Department [address] [place] [address] Emergency Department Summary 04/02/25 MR#: [id number] Acct: [id number] Name: CODY SANTANA Rep #:[id number] : 1985 39 From: Kirby Bee PCP: Colton Kunz PA-C Status:DEP E R Location: ED HPI HPI - Fall History of Present Illness Chief Complaint: Fall Informant: patient and family Narrative Narrative: 39-year-old female presenting to the emergency room with bilateral ankle pain. Patient states yesterday she is going on the stairs outside of her house she thought she was at the bottom chamber stopped ago and she fell resulting in inversion injury to the left ankle and also causing injury to the right ankle. She states that she tried to catch herself by grabbing a nicki where eventually fell down and has a bruise in the left flank. She went to work today had pain with standing. She notes that the left ankle is worse than the right. [facility] Medical History Anemia Lumbar pain with radiation down right leg Dental caries Brain TIA Dysarthria Chronic migraine Anxiety and depression History of venous thromboembolism Obesity Tobacco use History of nephrolithiasis Chronic neck and back pain Factor 5 Leiden mutation, heterozygous Home Medications ?Medication ?Instructions ?Recorded ?Last Taken ?Type medroxyprogesterone 150 mg/mL 150 mg IM .[id number] verenice h control 01/30/15 08/24/24 11:00 History [...] mg tablet 10 mg PO DAILY allergies 10/0210/22/24 10:00 History 10 mg famotidine 40 mg tablet 40 mg PO Q12H reflux 3 10/21/24 23:00 History 40 mg lamotrigine 200 mg tablet 200 mg PO DAILY bipolar 10/10/0210/22/24 11:00 Hi story 200 mg montelukast 10 mg tablet 10 [...] PO BID 10/22/2410/22 11:00 History 200 mg methocarbamol 500 mg tablet 250 - 500 mg (0.5 - 1 x 50 0 mg) PO 01/23/25 Unknown Rx Q8H PRN muscle spasm #20 tabs gabapentin 100 mg capsule 100 mg PO QHS 03/25/25 Unkno wn History permethrin 5 % topical cream 1 applic topical Q14D 2 d oses #60 03/25/25 Unknown Rx grams Allergy/AdvReac Type Severity Reaction Status Date / Time acetaminophen (From [place]) Allergy Itching Verified 04/02/25 17:59 hydrocodone (From [place]) Allergy Itching Verified 04/02/25 17:59 oxycodone (From Percocet) AdvReac Intermediate Itching Verified 04/02/25 17:59 cephalexin monohydrate (From AdvReac WEAKNESS, Verified 04/02/25 17:59 Keflex) MUSCLE ACHES Family History Mother Heart [...] ED Constitutional Constitutional ED: Denies chills or weight loss Eyes Eyes: Denies change in vision or diplopia ENT ENT ED: Denies ear pain, rhinorrhea or sore throat Cardiovascular Cardiovascular: Denies chest pain, orthopnea, palpitations or racing heartbeat Respiratory/Chest Respiratory/Chest: Denies cough, dyspnea or orthopnea Gastrointestinal Gastrointestinal: Denies abdominal pain, diarrhea, nausea or vomiting Genitourinary Genitourinary ED: Denies dysuria, hematuria or urinary frequency Musculoskeletal Musculoskeletal: Reports back pain and other Details: See history of present illness ; Denies arthralgias, myalgias or neck pain Integumentary Denies abscess or rash Neurologic Neurologic: Denies headache(s) or weakness Psychiatric Psychiatric: Denies anxiety, depression, suicidal ideation or suicidal thoughts Endocrine Endocrinology: Denies polydipsia, polyphagia or polyuria Allergic/Immunologic Allergic/Immunologic ED: Denies mouth swelling, tongue swelling or urticaria EXAM Physical Exam Const Vital Signs: 04/02/25 17:59 04/02/25 20:09 Temperature 97.9 F 98.2 F Temperature Source Oral Pulse Rate 114 H 90 Respiratory Rate 16 18 Blood Pressure 133/75 H 128/60 H Blood Pressure Mean 94 82 Pulse Ox 100 97 Oxygen Delivery Method Room Air Positive well nourished and well developed General Appearance ED: well developed and NAD HEENT Reports normocephalic, head/scalp atraumatic and moist mucous membranes Eyes PERRL and EOMs intact bilaterally Neck no lymphadenopathy, supple and no JVD Resp normal respiratory effort and clear to auscultation bilaterally Cardio regular rate, regular rhythm and no murmurs GI normal to inspection, nondistended, normoactive bowel sounds and non-tender Palpation: soft Back/Spine no CVA tenderness and normal ROM Back/Spine Narrative: There is a small circular contusion in the mid axillary line left mid abdomen. Rest of the abdominal exam is normal. No CVA pain. Extremity Extremity Narrative: Mild swelling over the ATF on the left. Pain with range of motion. No fifth metatarsal pain bilaterally or fibular head pain bilaterally no tibial shaft pain. Neurovascular intact distally. General Extremety ED: Negative for edema General Extremity: Negative for edema Neuro oriented x3 and CN's II-XII intact bilaterally Sensorium / Orientation: alert Motor Exam: strength 5/5 throughout Psych mental status grossly normal Mood & Affect: Negative for depressed or tearful Skin no rashes or lesions noted and no wounds MDM MDM MDM Narrative Medical decision making narrative: Differential diagnosis includes but not limited to fracture sprain renal injury soft tissue contusion My independent interpretation of the bilateral ankle is no acute fracture. The contusion on the left flank region appears to be soft tissue in nature. I do not believe this needs advanced imaging. Patient was placed in air splint for comfort. Would recommend supportive care return if worsening or concerns History & Record Review Discussion w/independent historian: Patient Radiography Diagnostic Testing: Clinical Impression(s) from Imaging Studies Ankle X-Ray 04/02/25 18:50 IMPRESSION: No acute osseous abnormalities. Reading Location: [address] Ankle X-Ray 04/02/25 18:50 IMPRESSION: No acute osseous abnormalities. Reading Location: [address] Discharge Plan Triage Chief Complaint: Fall ED Provider: Kirby Salcedo Dx/Rx/DC Orders Clinical Impression: Ankle sprain, Fall Instructions: ED Ankle Sprain (Adult) Prescriptions: No Action acetaminophen [Tylenol] 325 mg capsule 325 mg PO ONCE PRN (Reason: Pain 1-10 Or Fever) Aimovig Autoinjector 70 mg/mL auto-injector 70 mg subcut .monthly Rx Instructions: the 8th of each month gabapentin 100 mg capsule 100 mg PO QHS permethrin 5 % cream 1 applic topical Q14D Qty: 60 0RF Rx Instructions: apply 1/2 tube to sodm-een-fwlwr leaving on for 8-14 hours before washing off; repeat in 10-12 days medroxyprogesterone 150 MG/ML syringe 150 mg IM .[id number] citalopram 40 MG tablet 40 mg PO [...] 10 mg tablet 10 mg PO DAILY famotidine 40 mg tablet 40 mg PO [...] 2 puff inhalation Q6H PRN (Reason: CONGESTION/ALLERGIES) cholecalciferol (vitamin D3) 25 mcg (1,000 unit) capsule 50 mcg PO DAILY topiramate 200 mg tablet 200 mg PO BID methocarbamol 500 mg tablet 250 - 500 mg PO Q8H PRN (Reason: muscle spasm) Qty: 20 0RF Primary Care Provider: Colton Kunz Referrals: Colton Kunz PA-C [Primary Care Provider, Medical] - 10-14 Days if not better Print Language: [place] Disposition Disposition: Home, Self Care Discharge Date/Time: 04/02/25 20:10 What to do if you have Problems For any increased pain, shortness of breath, bleeding, nausea or vomiting, chestpain, or any unexpected problems, contact your Primary Care Provider. Call [facility] ([phone]) or report to the closest Emergency Room. Call 911 if necessary. 04/02/25 0633 <Electronically signed by Kirby Salcedo DO> Cosigner Signature (if applicable): CC: THERON Kunz ~ Signed [facility] Work Phone: 1(248) 399-184710-14-2025 Evaluation note* Diagnosis Onset Date Resolution Status Admit Date Rash noneactive March 25, 2025 3:40pm [facility] Work Phone: 1(708) 720-425610-14-2025 Progress [facility] [address], [address] [place] [address] OFFICE VISIT Date of Service: 03/25/25 MR#: [id number] Acct: [id number] Name: CODY SANTANA Rep #: [id number] : 1985 Provider: ALONZO Escoto Age/Sex: 39/F Location: [facility] Status: Signed Intake Vital Signs 01/30/25 09:29 03/25/25 15:47 Height 5 ft 3 in BP 130/70 H Blood Pressure Location Lt brachial Position Sitting Pulse 89 Pulse Source Monitor Temp 98.4 F Temp Source Oral Pulse Oximetry (%) 98 Oxygen Delivery Method room air Intake Visit Reasons: Rash Chief Complaint: Rash Accompanied by: Self Allergies acetaminophen (From [place]) Allergy (Verified 03/25/25 15:42) Itching hydrocodone (From [place]) Allergy (Verified 03/25/25 15:42) Itching oxycodone (From Percocet) Adverse Reaction (Intermediate, Verified 03/25/25 15:42) Itching cephalexin monohydrate (From Keflex) Adverse Reaction (Verified 03/25/25 15:42) WEAKNESS, MUSCLE ACHES Medications ?Medication ?Instructions ?Recorded ?Confirmed ?Type medroxyprogesterone 150 mg/mL 150 mg IM .[id number] verenice h control 01/30/15 History intramuscular syringe citalopram 40 mg tablet 40 mg PO DAILY mental health 04/04/19 03/25/25 History haloperidol 5 mg tablet 2.5 mg PO TID PRN Anxiety 03/25/25 History apixaban 5 mg tablet 5 mg PO BID blood thinner 03/25/25 History acetaminophen 325 mg capsule 325 mg PO ONCE PRN Pain 1 -10 Or 08/26/20 03/25/25 History (Tylenol) Fever lidocaine 5 % topical patch 1 patch topical DAILY pain #6 ea 04/13/21 03/25/25 Rx (Lidoderm) albuterol sulfate 90 mcg/actuation 2 puff inhalation Q 6H PRN 03/15/23 03/25/25 History aerosol inhaler CONGESTION/ALLERGIES cetirizine 10 mg tablet 10 mg PO DAILY allergies 10/0203/25/25 History famotidine 40 mg tablet 40 mg PO Q12H reflux 3 03/25/25 History lamotrigine 200 mg tablet 200 mg PO DAILY bipolar 10/0203/25/25 History montelukast 10 mg tablet 10 mg PO QHS allergies 03/1503/25/25 History triamcinolone acetonide 55 mcg 2 spray intranasal IDALIA Y 03/15/23 03/25/25 History nasal spray aerosol erenumab-aooe 70 mg/mL 70 mg subcut .monthly 03/25/25 History subcutaneous auto-injector (Aimovig Autoinjector) cholecalciferol (vitamin D3) 25 50 mcg PO DAILY 03/25/25 History mcg (1,000 unit) capsule topiramate 200 mg tablet 200 mg PO BID 10/22/2403/25 History methocarbamol 500 mg tablet 250 - 500 mg (0.5 - 1 x 50 0 mg) PO 01/23/25 03/25/25 Rx Q8H PRN muscle spasm #20 tabs gabapentin 100 mg capsule 100 mg PO QHS 03/25/2503/25 History permethrin 5 % topical cream 1 applic topical Q14D 2 d oses #60 03/25/25 03/25/25 Rx grams Nurse's Note: Rash, itching, blisters on hands and arms, drawing blood while scratching. Noticed 1 week ago. Tried Benadryl, no relief. [facility] Medical History Anemia Lumbar pain with [...] the office today for initial evaluation proximately 7-dayhistory of erythematous papular rash throughout torso, BUE of unknown etiology. She notes xsug-vwr-zsiutpn oral Benadryl has been of minimal to no assist, stating her symptoms are worse at night shortly before awakening. As far as he is aware no new clothes or lotions or detergentsor other environmental exposures including pets. No complaints of constricted/pruritic airway or chest pain/shortnessof breath/wheeze. No other associated symptoms and no other alleviating/aggravating factors. ROS Const Constitutional: No other (as above) Exam Const General: cooperative, healthy appearing and no acute distress Nutritional Appearance: average body habitus Orientation: alert and awake Resp Effort & Inspection: normal respiratory effort and able to speak in complete sentences Cardio Rate: regular rate Pulses: radial pulses present Skin General: no rashes or lesions noted Other: Erythematous papular lesions in various stages of healing to the A/P torso, BUE Neuro General: patient alert and patient awake Cognition: normal cognition Speech: speech normal Extrem General: normal to inspection Psych Appearance: grossly normal Mental Status: mental status grossly normal Mood: congruent mood Affect: normal affect Speech and Movement: speech and movement normal Attitude: cooperative Diagnoses Scabies B86 Assessment and Plan Assessment and Plan (1) Scabies: Status: Acute Plan: Permethrin cream as prescribed today. Skin care/linen care measures as instructed today. Follow-up with PCP in 7 to 10 days should symptoms not improve, sooner should symptoms only worsen or any other concerns develop. Patient states acknowledging understanding all the above. Coding Level of Care Code Off vis,est,level 3 Diagnoses Rash R21 Assessment and Plan Assessment and Plan (1) Rash: Medications: New permethrin 5% apply 1/2 tube to vnky-xug-tcdid leaving on for 8-14 hours before washing off; repeat in 10-12 days1 applic topical Q14D 60 grams 0RF 2 doses 03/25/25 1601 s ALONZO ROSADO> Date _ Torres M Wyles PA PA Cosigner Signature: Date (if applicable) CC: ~ [facility]10-14-2025 Progress note Author Torres Richards [facility] Services Note Date/Time March 25, 2025 4 :01pm [facility] [address], [address] [place] [address] OFFICE VISIT Date of Service: 03/25/25 MR#: [id number] Acct: [id number] Name: CODY SANTANA Rep #: [id number] : 1985 Provider: ALONZO Escoto Age/Sex: 39/F Location: [facility] Status: Signed Intake Vital Signs 01/30/25 09:29 03/25/25 15:47 Height 5 ft 3 in BP 130/70 H Blood Pressure Location Lt brachial Position Sitting Pulse 89 Pulse Source Monitor Temp 98.4 F Temp Source Oral Pulse Oximetry (%) 98 Oxygen Delivery Method room air Intake Visit Reasons: Rash Chief Complaint: Rash Accompanied by: Self Allergies acetaminophen (From [place]) Allergy (Verified 03/25/25 15:42) Itching hydrocodone (From [place]) Allergy (Verified 03/25/25 15:42) Itching oxycodone (From Percocet) Adverse Reaction (Intermediate, Verified 03/25/25 15:42) Itching cephalexin monohydrate (From Keflex) Adverse Reaction (Verified 03/25/25 15:42) WEAKNESS, MUSCLE ACHES Medications ?Medication ?Instructions ?Recorded ?Confirmed ?Type medroxyprogesterone 150 mg/mL 150 mg IM .[id number] verenice h control 01/30/15 History intramuscular syringe citalopram 40 mg tablet 40 mg PO DAILY mental health 04/04/19 03/25/25 History haloperidol 5 mg tablet 2.5 mg PO TID PRN Anxiety 03/25/25 History apixaban 5 mg tablet 5 mg PO BID blood thinner 03/25/25 History acetaminophen 325 mg capsule 325 mg PO ONCE PRN Pain 1 -10 Or 08/26/20 03/25/25 History (Tylenol) Fever lidocaine 5 % topical patch 1 patch topical DAILY pain #6 ea 04/13/21 03/25/25 Rx (Lidoderm) albuterol sulfate 90 mcg/actuation 2 puff inhalation Q 6H PRN 03/15/23 03/25/25 History aerosol inhaler CONGESTION/ALLERGIES cetirizine 10 mg tablet 10 mg PO DAILY allergies 10/0203/25/25 History famotidine 40 mg tablet 40 mg PO Q12H reflux 3 03/25/25 History lamotrigine 200 mg tablet 200 mg PO DAILY bipolar 10/0203/25/25 History montelukast 10 mg tablet 10 mg PO QHS allergies 03/1503/25/25 History triamcinolone acetonide 55 mcg 2 spray intranasal IDALIA Y 03/15/23 03/25/25 History nasal spray aerosol erenumab-aooe 70 mg/mL 70 mg subcut .monthly 03/25/25 History subcutaneous auto-injector (Aimovig Autoinjector) cholecalciferol (vitamin D3) 25 50 mcg PO DAILY 03/25/25 History mcg (1,000 unit) capsule topiramate 200 mg tablet 200 mg PO BID 10/22/2403/25 History methocarbamol 500 mg tablet 250 - 500 mg (0.5 - 1 x 50 0 mg) PO 01/23/25 03/25/25 Rx Q8H PRN muscle spasm #20 tabs gabapentin 100 mg capsule 100 mg PO QHS 03/25/2503/25 History permethrin 5 % topical cream 1 applic topical Q14D 2 d oses #60 03/25/25 03/25/25 Rx grams Nurse's Note: Rash, itching, blisters on hands and arms, drawing blood while scratching. Noticed 1 week ago. Tried Benadryl, no relief. [facility] Medical History Anemia Lumbar pain with [...] torso, BUE of unknown etiology. She notes vttj-nmo-outbrco oral Benadryl has been of minimal to no assist, stating her symptoms are worse at night shortly before awakening. As far as he is aware no new clothes or lotions or detergentsor other environmental exposures including pets. No complaints of constricted/pruritic airway or chest pain/shortness of breath/wheeze. No other associated symptoms and no other alleviating/aggravating factors. ROS Const Constitutional: No other (as above) Exam Const General: cooperative, healthy appearing and no acute distress Nutritional Appearance: average body habitus Orientation: alert and awake Resp Effort & Inspection: normal respiratory effort and able to speak in complete sentences Cardio Rate: regular rate Pulses: radial pulses present Skin General: no rashes or lesions noted Other: Erythematous papular lesions in various stages of healing to the A/P torso, BUE Neuro General: patient alert and patient awake Cognition: normal cognition Speech: speech normal Extrem General: normal to inspection Psych Appearance: grossly normal Mental Status: mental status grossly normal Mood: congruent mood Affect: normal affect Speech and Movement: speech and movement normal Attitude: cooperative Diagnoses Scabies B86 Assessment and Plan Assessment and Plan (1) Scabies: Status: Acute Plan: Permethrin cream as prescribed today. Skin care/linen care measures as instructed today. Follow-up with PCP in 7 to 10 days should symptoms not improve, sooner should symptoms only worsen or any other concerns develop. Patient states acknowledging understanding all the above. Coding Level of Care Code Off vis,est,level 3 Diagnoses Rash R21 Assessment and Plan Assessment and Plan (1) Rash: Medications: New permethrin 5% apply 1/2 tube to ypls-stf-lzqzs leaving on for 8-14 hours before washing off; repeat in 10-12 days 1 applic topical Q14D 60 grams 0RF 2 doses 03/25/25 1601 <Electronically signed by Torres ROSADO> Date _ Torres ROSADO Cosigner Signature: Date (if applicable) CC: ~ [employer] Work Phone: 1(119) 683-425309-23-2025 NoteHNO ID: [id number] Author: MICHELLE MARVIN APRN.[facility] Service: ? Author Type: Nurse Practitioner Type: Progress Notes Filed: 03/04/2025 10:29 Note Text: URGENT CARE JESÚS Santana is a 39 year old female. [...] agreeable to care plan. and Recording using [employer] software for draft documentation of the visit was discussed with the patient/authorized traveling sales representative; all questions welcomed and answered. Patient/authorized traveling sales representative agreed to proceed History and Record Review External record(s) reviewed: no prior records and other (see comments). Disposition The patient was discharged. [facility] Instructions* Patient Instructions* Brian Sheldon MD - 02/17/2025 2:03 PM EDT Recommendations for Dry Eyes and Dry Mouth Dry eyes: Increase [place] 3 free fatty acid intake (controversial) Reduce caffeine intake and smoking Turn off ceiling fans, use humidifier Eye drops: Preservative free artifical tears (Refresh, TheraTears, Soothe, Systane) 4 or more timesin a day We can consider Cyclosporine (Restasis 1 drop BID) eye drops or Lifitegrast (Xiidra 1 drop BID) formoderate-severe eye disease. It may take up to 4-12 weeks to reach full effect though. Punctal occlusion can be considered as well by your lace winder where they place a plug to yourtear ducts Scleral contact lenses with a moisture [...] water doesn't lubricate the mouth instead try icechips Wear removable prostheses , day or night - dentures that fit appropriately will cause some salivaryflow through mechanical stimulation Oil-pull with virgin coconut oil - traditional folk remedy in ancient [place]. Take one half teaspoonof solid virgin coconut oil, put it in [...] daily with food. The dose can eventually beincreased up to a total of 120 mg per day as tolerated, taken either as a single night time dose orb.i.d. Begin Savella at 25 mg, slowly increasing the dose as tolerated to a maximum of 100mg daily (e.g. 50 mg b.i.d.). Both drugs may initially cause nausea, palpitations, and other noradrenergic side effects, so patients should be instructed that this may happen. These side effects usually resolve over time. Another class of medication with proven efficacy in fibromyalgia are the wadxs-5-mwcbg ligands, Neurontin (gabapentin) and Lyrica (pregabalin). This class of drug might be the best first choice for afibromyalgia patient with prominent sleep problems. Lyrica is specifically approved for fibromyalgia, at doses of both 300 and 450mg. For Neurontin, doses typically in the range of 1500 - 3000 mg arenecessary to treat pain. Both drugs are better tolerated if most or even all of the dose is taken at bedtime (e.g. 150 mg in the morning and 300 mg at night for Lyrica, or 600 mg in the morning and 1200 mg at night for Neurontin). Some of the other medications that can be helpful in some fibromyalgia patients are higher doses ofolder SSRI s such as Prozac, Zoloft, or [...] highly recommend patients make use of the [employer] website, (www.[employer]ep[employer].Constant Therapy), that provides a self-management program for people living with fibromyalgia. When tested in a trial, this was shown to be quite effective at improving symptoms. We discussed your chronic pain and nerve [...] long-term joint and nerve issues. Please discourage yourchildren from activities that overextend their joints to [...] - I am referring you to the [facility] for specialized care. They offer individual and group sessions to help manage fibromyalgia and related symptoms. - I am providing a referral for aqua therapy. Please schedule this at a location convenient for you, such as the [facility] or another facility you ve used in the past. - Watch educational videos on fibromyalgia and nerve pain from reputable sources to better understand your condition and how to manage it. - If you experience worsening symptoms, side effects from Gabapentin, or have additional questions,please contact our office. documented in this encounterAshtabula [facility]09-08-2025 NoteHNO ID: [id number] Author: BRIAN SHELDON MD Service: ? Author Type: Physician Type: Progress Notes Filed: 02/17/2025 15:52 Note Text: Rheumatology FOLLOW UP Date of Service: 02/17/2025 Patient: Cody Santaan Medical Record: [id number] Primary Care Physician: THERON Ruano Rheumatology visit: 01/15/2025 (with Pramod Gomez) HPI [...] improves with movement. 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 Pain Evaluation 01/02/2025 01/08/2025 01/15/2025 02/13/2025 02/17/2025 Pain Evaluation Pain Score 5 4 2 3 3 3 Location Generalized Generalized Other: See Comment Back-Lower Description Aching;Dull Aching;Burning;Dull;Itching;Numbness;Sharp;Shooting;Sore;Stiffness;Tenderness;Ti ghtness;Tingling Aching;Dull;Itching;Sharp;Shooting;Sore;Stiffness;Tenderness;Tightness Aching;Sharp Duration (Timeframe) Years Years Years Frequency Continuous Continuous Continuous Intermittent Intervention Medication;Relaxation;Cold;Heat;Positioning Reposition;Relaxation;Cold;Heat Patient-Entered Data PROMIS Assessments 12/04/2024 12/26/2024 [...] dysfunction) Physical Function Per (more content not included)...[facility] History of Present illness Narrative* Brian Sheldon MD - 02/17/2025 1:05 PM EDT Images from the original note were not included. Rheumatology FOLLOW UP Date of Service: 02/17/2025 Patient: Cody Santana Medical Record: [id number] Primary Care Physician: Colton Kunz PA-C Last [...] back, particularly after work. Morning stiffness lasts upto an hour but improves with movement. 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 She has a history of depression and anxiety, well-controlled on stable medication for the past fouryears. She denies current feelings of depression related to her pain but expresses frustration and a desire for answers and relief. She underwent a cervical fusion two years ago, which alleviated some symptoms but necessitates caution with lifting and movements. She has tried various physical therapies, finding aqua therapy beneficial in the past. She is currently under the care of a rheumatology PA in [place] and recently had an MRI. Pain Evaluation 01/02/2025 01/08/2025 01/15/2025 02/13/2025 02/17/2025 Pain Evaluation Pain Score 5 4 2 3 3 3 Location Generalized Generalized Other: See Comment Back-Lower Description Aching;Dull Aching;Burning;Dull;Itching;Numbness;Sharp;Shooting;Sore;Stiffness;Tendernes s;Tightness;Tingling Aching;Dull;Itching;Sharp;Shooting;Sore;Stiffness;Tenderness;Tightness Aching;S harp Duration (Timeframe) Years Years Years Frequency Continuous Continuous Continuous Intermittent Intervention Medication;Relaxation;Cold;Heat;Positioning Reposition;Relaxation;Cold;Heat Patient-Entered Data PROMIS Assessments 12/04/2024 12/26/2024 01/08/2025 PROMIS Global Health - (T-Scores - the mean of general population = 50. Five points is a clinicallymeaningful difference.) Physical T-Score 39.8 39.8 39.8 34.9 [...] dysfunction) Physical Function Percentile 4 4 5 [place] Activities of Daily Living 02/13/2025 9:28 [...] AI <0.2 Sm Antibody Negative Negative Ribosomal SENIOR GRAPHIC DESIGNER Ab <1.0 AI <0.2 Ribosomal SENIOR GRAPHIC DESIGNER Qualitative Negative Negative Chromatin Ab <1.0 AI <0.2 Chromatin Ab Qual Negative Negative SSA Antibody Qual Negative Positive Anti-SSA <1.0 AI 1.8 Anti-SSB <1.0 AI <0.2 SENIOR GRAPHIC DESIGNER Antibody QUAL Negative Negative Scleroderma Ab Qual [...] result) Impression: IMPRESSION: No acute radiographic abnormality. Chief Of Surgery: LUDIVINA Transcribe Date/Time: Jul 18 2024 3:00P... [...] effusion, tenderness to palpation - Hands good crabbing machine operator, MCP,PIP, DIP no swelling or tenderness - [...] the preferred anticoagulant for antiphospholipid syndrome, but patienthas been stable on Eliquis. - Discussed that Plaquenil may be considered in the future, as it is sometimes used as adjunctive therapy in antiphospholipid syndrome. I spent a total of 50 minutes on the date of the service which included preparing to see the patient, ijan-ud-oxct patient care, completing clinical documentation, obtaining and/or reviewing separately obtained history, performing a medically appropriate examination, counseling and educating the pat ient/family/caregiver, ordering medications, tests, or procedures, communicating with other HCPs (not separately reported), independently interpreting results (not separately reported), communicatingresults to the patient/family/caregiver, and care coordination (not separately reported). Orders this visit: Office Visit on 02/17/25 CONSULT TO [facility] ([facility] PAIN) *Canceled* CONSULT TO PHYSICAL THERAPY *Canceled* CONSULT TO [facility] (CHRON[facility] PAIN) CONSULT TO PHYSICAL THERAPY gabapentin (NEURONTIN) 100 mg capsule *Discontinued* gabapentin (NEURONTIN) 100 mg capsule Return in about 5 months (around 07/20/2025) for Follow up, virtualSandra Sheldon MD Associate Staff Department of Rheumatic and Immunological Diseases Office number: [phone] - Fax number: [phone] - Appointment: [phone] [1] Social History Tobacco Use Smoking status: Every Day Current packs/day: 1.00 Average packs/day: 1 pack/day for 22.2 years (22.2 ttl pk-yrs) Types: Cigarettes Start date: 12/17/2002 Smokeless tobacco: Never Vaping Use Vaping status: Some Days Substances: Nicotine Devices: Disposable Substance Use Topics Alcohol use: Not Currently Drug use: Not Currently documented in this encounterAsht[facility]08-[facility] History of Present illness Narrative* Eleazar Munguia RT(R) - 01/31/2025 12:00 PM EDT Radiology Service Progress Note PATIENT [...] No status:NO. PATIENT RELEVANT IMPLANT DATA REVIEWED: Yes PATIENT PRESENTS WITH AN IMPLANTABLE OR ATTACHED PURIFICATION OPERATOR: No RADIOLOGY DEPARTMENT: MR; Exam(s) Completed: Lower MSK: Pelvis, bilateral. Aromatherapy Administered: No PERIPHERAL IV DATA: Not applicable SIGNED BY: RT Heriberto(R) January 31, 2025 12:05 PM documented in this encounterAshtabula [facility] Center08-22-2025 NoteHNO ID: [id number] Author: ELEAZAR MUNGUIA RT(Lisa) Service: ? Author [...] PATIENT PRESENTS WITH AN IMPLANTABLE OR ATTACHED PURIFICATION OPERATOR: No RADIOLOGY DEPARTMENT: MR; Exam(s) Completed: Lower MSK: Pelvis, bilateral. Aromatherapy Administered: No PERIPHERAL IV DATA: Not applicable SIGNED BY: Eleazar Munguia, RT(R) January 31, 2025 12:05 [facility]08-21-2025 Radiology Diagnostic study note [facility] [address] [place] [address] [id number] HIP, UNI W/ Pelvis 2-3 Views MR#: [id number] Acct: [id number] Name: CODY SANTANA Rep #: [id number] : 1985 F 39 From: Jamel Noel MD PCP: Colton Kunz PA-C Status: REG E R Study:HIP, UNI W/ Pelvis 2-3 Views Date of Ex am: 01/30/25 Exam# [id number] Ordering Dr: Tamela Wilkerson MD PROCEDURE: HIP, UNI W/ PELVIS 2-3 VIEWS 01/30/2025 REASON FOR EXAM: INJURY TECHNIQUE: HIP, UNI W/ PELVIS 2-3 VIEWS Laterality: Right COMPARISON: None FINDINGS: Bones: No fracture Joints: Normal alignment. Soft tissues: Soft tissues are unremarkable. RAD/HIP, UNI W/ Pelvis 2-3 Views IMPRESSION: No acute abnormality Reading Location: [id number] CC: THERON Kunz; Dr. Luis Wilkerson MD ~ Chief Of Surgery: Signed [facility]08-11-2025 Telephone encounter Note* Telephone Encounter - Ander Dalia - 01/20/2025 8:12 AM EDT Physician: Gregg Call from patient requesting refill. Please E-Scribe Last OV: 10/25/2024 with [facility] Future OV: 02/20/2025 with Jose Requested Prescriptions Pending Prescriptions Disp Refills erenumab-aooe (AIMOVIG AUTOINJECTOR) 70 mg/mL auto-injector 3 mL 0 Sig: Inject 1 mL subcutaneously once every month. Pharmacy Name: [facility]08-11-[facility]25 Miscellaneous Notes* Telephone Encounter - Dalia Worthington - 01/20/2025 8:12 AM EDT Physician: Gregg Call from patient requesting refill. Please E-Scribe Last OV: 10/25/2024 with [facility] Future OV: 02/20/2025 with Joes Requested Prescriptions Pending Prescriptions Disp Refills erenumab-aooe (AIMOVIG AUTOINJECTOR) 70 mg/mL auto-injector 3 mL 0 Sig: Inject 1 mL subcutaneously once every month. Pharmacy [facility]: [facility] documented in this encounterAshtabula County [facility] Center08-06-2025 NoteHNO ID: [id number] Author: PRAMOD GOMEZ PA-C Service: ? 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 lidocaine (LI (more content not included)...[facility]08-02-[facility] History of Present illness Narrative* Nola Mccurdy, RT(R) - 01/11/2025 2:50 PM EDT Radiology Service Progress Note PATIENT [...] No status:NO. PATIENT RELEVANT IMPLANT DATA REVIEWED: Yes PATIENT PRESENTS WITH AN IMPLANTABLE OR ATTACHED PURIFICATION OPERATOR: No RADIOLOGY DEPARTMENT: General X-ray: Exam(s) Completed: Lower Extremity X- Ray(s): Ankle, Right PERIPHERAL IV DATA: Not applicable SIGNED BY: RT Inés(R) January 11, 2025 2:48 PM documented in this encounterAshtabula County Medical Center08-02-2025 NoteHNO ID: [id number] Author: NOLA MCCURDY RT(R) Service: ? Author [...] PATIENT PRESENTS WITH AN IMPLANTABLE OR ATTACHED PURIFICATION OPERATOR: No RADIOLOGY DEPARTMENT: General X-ray: Exam(s) Completed: Lower Extremity X-Ray(s): Ankle, Right PERIPHERAL IV DATA: Not applicable SIGNED BY: EMA Conte) January 11, 2025 2:48 PMCFisher-Titus Medical Center08-02-2025 NoteHNO ID: [id number] Author: JAY DELGADO APRN.ROLLING MACHINE OPERATOR AUTOMATIC Service: ? Author Type: Nurse Practitioner Type: [...] prednisone. She will otherwise follow-up with her auctioneer tobacco - XR ANKLE GENERAL 3V AP/LAT/OBL RIGHT - PREDNISONE 50 MG TABLET Jay Delgado APRN.CNPMccullough-Hyde [facility]08-02-2025 History of Present illness Narrative* Jay Delgado APRN.KOLE - 01/11/2025 2:41 PM EDT Subjective Cody Santana is a 39 year [...] Wt 90.5 kg (199 lb 8.3 oz) LMP(LMP Unknown) SpO2 99% BMI 35.34 kg/m Physical [...] prednisone. She will otherwise follow-up with her auctioneer tobacco - XR ANKLE GENERAL 3V AP/LAT/OBL RIGHT - PREDNISONE 50 MG TABLET Jay Delgado APRN.KOLE documented in this encounterAshtabula [facility] Center07-30-2025 Telephone encounter Note * Telephone Encounter - Frances Sanches RN - 01/08/2025 2:12 PM EDT Not established with any provider May schedule sooner with any available provider [facility]07-30-2025 Telephone encounter Note* Telephone Encounter - Frances Sanches RN - 01/08/2025 2:12 PM EDT ----- Message from Torres Barreto sent at [...] , it is OK to leave message [phone] (home) [phone] (cell) Payor: [place] MEDICAID / Plan: [facility] MEDICAID / Product Type: Medicaid / [place] Villa [facility]07-30-2025 Miscellaneous Notes* Telephone Encounter - Frances Sanches RN - 01/08/2025 2:12 PM EDT Not established with any provider May schedule sooner with any available provider * Telephone Encounter - Frances Sanches RN - 01/08/2025 2:12 PM EDT ----- Message from Torres Barreto sent at [...] , it is OK to leave message [phone] (home) [phone] (cell) Payor: [place] MEDICAID / Plan: [facility] MEDICAID / Product Type: Medicaid / Torres Villa documented in this encounterAshtabula County [facility] Center07-24-2025 History of Present illness Narrative* Pramod Gomez PA-C - 01/02/2025 2:00 PM EDT Images from the original note were not included. Rheumatology CONSULTATION Date of Service: 01/02/2025 Patient: Cody Santana Medical Record: [id number] Primary Care Physician: Celina Kunz Last Rhe[facility] visit[facility] Referring Provider: Local orthopedist, no referral on file, patient unsure provider Recording using [employer] software for draft documentation of the visit was discussed with the patient/authorized traveling sales representative; all questions welcomed and answered. Patient/authorized traveling sales representative agreed to proceed History of [...] that shows autoimmune disease. Exact test and recordsare not with her today. Joints affected: bilateral [...] (Generalized). She describes the pain as Aching, Dull.The pain is Continuous, and has lasted for [...] constipation and diarrhea, heartburn managed with medication, andoccasional headaches related to her migraine injection schedule. She denies hemoptysis, but experiences dyspnea with stairs. Cody reports numbness and tingling in her legs, more pronounced on the right, and difficulty with proprioception in her left leg, leading to frequent near-falls. She has seen neurology, who ruledout MS. 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 She is a current smoker, consuming approximately one pack per day, and denies alcohol or drug use. She is single and works for [employer]. Cody has a family history of RA in her father and Paiz's palsy in her great- grandmother. She charbel multiple medications, including Aimovig, lidocaine, Robaxin, Nurtec, albuterol, Depo-Provera, Eliquis, Zyrtec, vitamin D, Celexa, famotidine, Lamictal, Singulair, nystatin, Topamax, haloperidol, and Paraffin Forte. She is due for an eye exam and has not seen a eyeglass frames polisher. Pain Evaluation 12/04/2024 12/17/2024 12/26/2024 12/31/2024 01/02/2025 Pain Evaluation Pain Score 3 3 5 3 5 5 Location Other: See Comment Other: See Comment Other: See Comment Other: See Comment Generalized Description Aching;Dull;Sharp;Shooting;Sore;Stiffness;Tenderness Aching;Burning;Dull;Itching;Numbnes s;Pressure;Radiating;Sharp;Shooting;Sore;Spasm;Stabbing/Not Incision;Stiffness;Tenderness;Throbbing;Tightness;Tingling Aching;Dull;Sharp;Shooting;Sore;Stiffness;Tenderness Aching;Dull;Itching;Numbness;Pressure;Sharp;Shooting;Sore;Stabbing/Not Incision;Stiffness;Tenderness;Throbbing;Tightness;Tingling Aching;Dull Duration (#) 1 7 1 Duration (Timeframe) Years Years Years Years Frequency Continuous Continuous Continuous Continuous Continuous Intervention Medication;Relaxation;Cold;Heat;Positioning;Splinting Medication;Relaxation;Cold;Heat M edication;Relaxation;Cold;Heat;Positioning;Splinting Medication;Relaxation;Cold;Heat Patient-Entered Data PROMIS Assessments 08/28/2024 12/04/2024 12/26/2024 PROMIS Global Health - (T-Scores - the mean of general population = 50. Five points is a clinicallymeaningful difference.) Physical T-Score 39.8 39.8 39.8 39.8 [...] Diarrhea (alternates with constipation) and Heartburn Negative for:Melena and Abdominal pain Constipation MUSCULOSKELETAL: Positive for: Arthralgias, Myalgias (upper thighs, low back, buttocks/hips, occasional neck/shoulders), Muscle weakness and Joint swelling Negative for: Morning Joint Stiffness NEUROLOGICAL: Positive for: Headaches (occasionally related to her migraine injection), Numbness (+letha legs somtimes into feet.) and Memory loss [...] No known SLE, IBD, PsO Great grandmother Millsap Palsy Social History Social History Tobacco Use [...] - none Single 3 kids 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 Last XR Chest - Impression Only XR CHEST 2V FRONTAL/LAT Exam End: 07/18/2024 2:35 PM (Final result) Impression: IMPRESSION: No acute radiographic abnormality. Chief Of Surgery: LUDIVINA Transcribe Date/Time: Jul 18 2024 3:00P... [...] Full ROM in flexion and extension. Full crabbing machine operator strength. No swelling or synovitis along the MCPs, PIPs, and DIPs. No tenderness along the MCPs, PIPs, and DIPs. Lower extremities: Hips: Painful Flex/extension/External rotation. + tenderness to lateral joint margin and piriformisregion. POSITIVE YAW. Knees: Full ROM in flexion [...] which included preparing to see the patient, klfv-qf-vhuf patient care, completing clinical documentation, obtaining and/or reviewing separately obtained history, performing a medically appropriate examination, counseling and educating the pat ient/family/caregiver, ordering medications, tests, or procedures, communicating with other HCPs (not separately reported), independently interpreting results (not separately reported), and communicating results to the patient/family/caregiver. Pramod Gomez PA-C Rheumatology Date: January 02, 2025 Time: 4:27 PM documented in this encounterAshtabula [facility] Center07-24-2025 NoteHNO ID: [id number] Author: PRAMOD GOMEZ PA-C Service: ? Author Type: Physician Home Health Billing Specialist Type: Progress Notes Filed: 01/02/2025 16:28 Note Text: Rheumatology CONSULTATION Date of Service: 01/02/2025 Patient: Cody Santana Medical Record: [id number] Primary Care Physician: Celina Kunz Last [facility] Referring Provider: Local orthopedist, no referral on file, patient unsure provider Recording using [employer] software for draft documentation of the visit was discussed with the patient/authorized traveling sales representative; all questions welcomed and answered. Patient/authorized traveling sales representative agreed to proceed History of [...] use. She is single and works for [employer]. Cody has a family history of RA in her father and Pazi's palsy in her great-grandmother. She is on multiple medications, including Aimovig, lidocaine, Robaxin, Nurtec, albuterol, Depo-Provera, (more content not included)... [facility]07-23-2025 History of Present illness Narrative* Nick Rachel MD - 01/01/2025 2:00 PM EDT Images from the original note were not included. [facility] FOLLOWUP/ESTABLISHED VIRTUAL PATIENT VISIT I have communicated my name and active licensure. The patient's identity and physical location wereverified at the time of this visit. Either the patient or their legal traveling sales representative has been informed of the risks and benefits of -- and alternatives to -- treatment through a remote evaluation andconsents to proceed with the evaluation remotely. PRINCIPAL [...] last seen 12/18/2024. Was unable to get MRIthoracic spine due to insurance authorization. Refer to patient-entered data. Neuro-QoL Functions (higher=better functioning) Flowsheet Row [facility] Upper Extremity Domain T Score 36 Lower Extremity Domain T Score 39 Cognitive Function Domain T Score 33 Positive Affect Well Being T Score -- Ability To Participate In Social Roles T Score 38 Satisfaction With Social Roles T Score 36 Neuro-QoL Symptoms (higher=worse symptoms) Flowsheet Row [facility] Visit [facility] Sleep Domain T Score 67 Fatigue Domain T Score 63 Anxiety Domain T Score 48 Depression Domain T Score 47 Stigma Domain T Score 60 Emotional Behavior Dyscontrol T Score -- has a past medical history of Bipolar affective ([facility]), DVT (deep venous thrombosis) ([facility]), Migraine, and Pulmonary embolism ([facility]). has a current medication list which includes the following prescription(s): chlorzoxazone, aimovig autoinjector, lidocaine, methocarbamol, nurtec odt, albuterol hfa, medroxyprogesterone, eliquis, cetirizine, cholecalciferol, citalopram, famotidine, lamotrigine, montelukast, nystatin, topiramate, and haloperidol. EXAM: LMP (LMP Unknown) MSPT Results Flowsheet Row [facility] Processing Speed Total Number Correct 54 Processing Speed Z score 0.13 Dominant hand Right hand MDT Left Hand Time -- MDT Right Hand Time -- Walking Speed Test (25 feet) -- Memory Z Score -- General Appearance: well appearing, in no acute distress Mental status evaluation during the interview and examination showed normal level of consciousness,language, memory, praxis, and higher intellectual function Affect: Normal RESULTS: MRI cervical spine w/wo 12/30/2024: Questionable patchy STIR hyperintense foci involving the visualized spinal cord likely artifactual.Demyelinating disease considered unlikely, as clinically questioned. The [...] at C5 C7. Refer to prior dedicated cross- sectional studies for detailed evaluation. Visualized cervical vertebrae [...] been unremarkable. MRI brain has shown subcortical non-sp ecific WM lesions. MRI cervical spine without cord lesions. Overall, low index of suspicion for LIFE TEACHER inflammatory disease as etiology for abnormal MRI [...] which included preparing to see the patient, cpjl-vy-[id number] patient care, completing clinical documentation, obtaining and/or reviewing separately obtained history, performing a medically appropriate examination, and counseling and educating the patient/family/caregiver. Nick Rachel MD [facility] CC: Janet Fernandez documented in this encounterAshtabula County Medical Center07-23-2025 NoteHNO ID: [id number] Author: NICK RACHEL MD Service: ? Author Type: Physician Type: Progress Notes Filed: 01/01/2025 14:07 Note Text: [facility] FOLLOWUP/ESTABLISHED VIRTUAL PATIENT VISIT I have communicated my name and active licensure. The patient's identity and physical location were verified at the time of this visit. Either the patient or their legal traveling sales representative has been informed of the [...] Flowsheet Row [facility] Upper Extremity Domain T Score 36 Lower Extremity Domain T Score 39 Cognitive Function Domain T Score 33 Positive Affect Well Being T Score -- Ability To Participate In Social Roles T Score 38 Satisfaction With Social Roles T Score 36 Neuro-QoL Symptoms (higher=worse symptoms) Flowsheet Row Office Visit [facility] 12/18/2024 [facility] Sleep Domain T Score 67 Fatigue Domain T Score 63 Anxiety Domain T Score 48 Depression Domain T Score 47 Stigma Domain T Score 60 Emotional Behavior Dyscontrol T Score -- has a past medical history of Bipolar affective ([facility]), DVT (deep venous thrombosis) ([facility]), Migraine, and Pulmonary embolism ([facility]). has a current medication list which includes the following prescription(s): chlorzoxazone, aimovig autoinjector, lidocaine, methocarbamol, nurtec odt, albuterol hfa, medroxyprogesterone, eliquis, cetirizine, cholecalciferol, citalopram, famotidine, lamotrigine, montelukast, nystatin, topiramate, and haloperidol. EXAM: LMP (LMP Unknown) MSPT Results Flowsheet Row [facility] Processing Speed Total Number Correct 54 Processing [...] lesions. Overall, low index of suspicion for LIFE TEACHER inflammatory disease as etiology for abnormal MRI brain or symptoms. Suspect progression in WM lesions could be in the context of ageing, migrain (more content not included)...[facility]07-21-2025 History of Present illness Narrative* Jayde Browne RT(R) - 12/30/2024 2:30 PM EDT Radiology Service Progress Note DATE OF SERVICE: [...] No status:NO. PATIENT RELEVANT IMPLANT DATA REVIEWED: Yes PATIENT PRESENTS WITH AN IMPLANTABLE OR ATTACHED PURIFICATION OPERATOR: No ALLERGIES: Reviewed and unchanged CONTRAST ALLERGY: NO. EXAM: MRI - CONTRAST TYPE: GROUP II PERIPHERAL IV DATA: Ambulatory: A peripheral IV was started in the Right upper extremity with a Angio cath: 22 gauge. RADIOLOGY DEPARTMENT: MR; Exam(s) Completed: Spine: Cervical spine. Aromatherapy Administered: No SIGNATURE: EMA Hodgson) PATIENT NAME: Cody Santana DATE: December 30, 2024 TIME: 2:36 PM documented in this encounterAshtabula County Medical Center07-21-2025 NoteHNO ID: [id number] Author: JAYDE BROWNE RT(R) Service: ? Author [...] PATIENT PRESENTS WITH AN IMPLANTABLE OR ATTACHED PURIFICATION OPERATOR: No ALLERGIES: Reviewed and unchanged CONTRAST ALLERGY: NO. EXAM: MRI - CONTRAST TYPE: GROUP II PERIPHERAL IV DATA: Ambulatory: A peripheral IV was started in the Right upper extremity with a Angio cath: 22 gauge. RADIOLOGY DEPARTMENT: MR; Exam(s) Completed: Spine: Cervical spine. Aromatherapy Administered: No SIGNATURE: RT Gokul(R) PATIENT NAME: Cody Santana DATE: December 30, 2024 TIME: 2:36 [facility]07-09-2025 Instructions* Patient Instructions* Nick Rachel MD - 12/18/2024 3:16 PM EDT I would recommend a virtual visit with me after your next set of MRIs to discuss the results. documented in this encounterAshtabula County Medical Center07-09-2025 History of Present illness Narrative* Nick Rachel MD - 12/18/2024 2:30 PM EDT Images from the original note were not included. [facility] NEW PATIENT EVALUATION/CONSULTATION Referral source: Janet Fernandez [facility] [place] [phone] Also followed by: Patient Care Team: Neli Tripp ROLLING MACHINE OPERATOR AUTOMATIC as PCP - General (Family Medicine) PRINCIPAL [...] radiology reports) and imaging studies were reviewed andsummarized. My recommendations will be communicated back to the patient's physician(s) via electronic medical record. Follow-up is expected to be with me or the referring physician based on results of planned workup. The patient consented to the use of [employer] software for draft documentation of the visit, consistent with [facility] Notice of Privacy Practices. Patient is currently being evaluated by general neurology, headache neurology, and cerebrovascular center. Cody reports that her symptoms began in March 2023 with a sudden onset of weakness, dizziness, and a sensation of impending collapse while at work. She describes feeling "spaced out" and unableto speak or comprehend fully, leading to an [...] right knee and hips, describing a sensation ofseparation between her hips and pelvis. She also [...] her symptoms and notes that her psychiatric medicationshave been stable for the past three years. [...] Flowsheet Row [facility] Upper Extremity Domain T Score 36 Lower Extremity Domain T Score 39 Cognitive Function Domain T Score 33 Positive Affect Well Being T Score -- Ability To Participate In Social Roles T Score 38 Satisfaction With Social Roles T Score 36 Neuro-QoL Symptoms (higher=worse symptoms) Flowsheet Row [facility] Sleep Domain T Score 67 Fatigue Domain T Score 63 Anxiety Domain T Score 48 Depression Domain T Score 47 Stigma Domain T Score 60 Emotional Behavior Dyscontrol T Score -- PAST HISTORY: has a past medical history of Bipolar affective ([facility]), DVT (deep venous thrombosis) ([facility]), Migraine, and Pulmonary embolism ([facility]). has a past surgical history that includes [...] in her maternal grandmother and mother; Leukemia inher father; Ovarian cancer in her paternal grandmother; [...] the arms and legs was performed including tgveu-oi-hhiqz, rapid-alternating, and fine movements. Rapid movements were [...] or distal to the wrist (ie: carpal tunnelsyndrome). The right median orthodromic response is slightly [...] syndrome. Overall, low index of suspicion for LIFE TEACHER inflammatory disease as etiology for abnormal MRI brain or symptoms but agree with MRI cervical and thoracic spine given the progression in WM lesions althoughthese could be in the context of ageing, [...] cessation. Office Visit on 12/18/24 CONSULT TO [facility] The chart was reviewed for possible participation in the following studies: None I spent a total of 60 minutes on the date of the service which included preparing to see the patient, sluu-hx-abqb patient care, completing clinical documentation, obtaining and/or reviewing separately obtained history, performing a medically appropriate examination, counseling and educating the pat ient/family/caregiver, and ordering medications, tests, or procedures. Nick Rachel MD [facility] documented in this encounterAshtabula County Medical Center07-09-2025 NoteHNO ID: [id number] Author: NICK RACHEL MD Service: ? Author Type: Physician Type: Progress Notes Filed: 12/18/2024 15:32 Note Text: [facility] NEW PATIENT EVALUATION/CONSULTATION Referral source: Janet Fernadnez [facility] [place] [phone] Also followed by: Patient Care Team: Neli Tripp, ROLLING MACHINE OPERATOR AUTOMATIC as PCP - General (Family Medicine) PRINCIPAL [...] The patient consented to the use of [employer] software for draft documentation of the visit, consistent with [facility]?s Notice of Privacy Practices. Patient is currently [...] Flowsheet Row [facility] Upper Extremity Domain T Score 36 Lower Extremity Domain T Score 39 Cognitive Function Domain T Score 33 Positive Affect Well Being T Score -- Ability To Participate In Social Roles T Score 38 Satisfaction With Social Roles T Score 36 Neuro-QoL Symptoms (higher=worse symptoms) Flowsheet Row [facility] Sleep Domain T Score 67 Fatigue Domain T Score 63 Anxiety Domain T Score 48 Depression Domain T Score 47 Stigma Domain T Score 60 Emotional Behavior Dyscontrol T Score -- PAST HISTORY: has a past medical history of Bipolar affective ([facility]), DVT (deep venous thrombosis) ([facility]), Migraine, and Pulmonary embolism ([facility]). has a past surgical history that includes revise median n/carpal tunnel surg (Bilateral, 2016). has a current medication list which includes the following presc (more content not included)...[facility]06-05-2025 History of Present illness Narrative* Janet Fernandez APRN.ROLLING MACHINE OPERATOR AUTOMATIC - 11/14/2024 10:00 AM EDT Images from the original note were not included. [facility] [place] Follow-up Visit Follow-up note November 14, 2024 [...] B/B, tongue/cheek bite. Previous workup completed through [facility] included MRI brain, CTA head/neck, and [...] noted slurred/garbled speech. Workup was completed through [facility] at that time including CT brain, [...] isagreeable to complete HSAT for further evaluation. Interim Review: Per my personal records review on 10/31/24: Records received from [facility] and reviewed as below: Patient reportedly presented to the ED due to difficulty getting words out at work. Symptoms were preceded by a 2-week long migraine. NIH SS completed in ED with score of 3 due to slight L lid droop,slight L leg drift, and slight decrease in sensation to L UE. No TNK administered due to concurrentuse of Eliquis. She was admitted for MRI [...] osteoporosis. Their neurological examination is essentially normal atthis visit although this is limited due to [...] initiated prior authorization process; sent prescription to [facility] in [facility]. Discussed [facility] to expedite the process but patients insurance will only cover it being sent to [facility]. - Prescribed Parafon Forte 500 mg TID [...] plan. She is also following with cerebrovascular. Abdoul Wooten CNP on 08/28/24: IMPRESSION Transient confusion, [...] L leg and arm felt different. Sx didnot get better after migraine medication. Pt reports [...] two weeks. No focal weakness, however, [place] Joints ache. Feels like stomach is tight. R knee has been swollen. Difficulty driving because of pain pushing on gas pedal. Shoulders are uncomfortable. Has an appointment with rheum because [facility] recommended this. Had positive testing (?). On review of labs she provides ALOFNZO is positive but RF is normal. CRP [...] Finger Abduction (U/T1) 5 Finger Abduction 5 Bar Examiner 5 Bar Examiner 5 Right Lower Extremity: (of 5) Left [...] DATE OF EXAM: May 16 2023 4:13PM [facility] 0295 - MRI BRAIN WO/W IVCON [...] transient episode of speech disturbance and abnormal Lsensation. MRI brain completed as part of workup on admission. Images are not available for review,however, per rad report multiple white matter changes [...] a copy of the MRI disc from [facility] and deliver it to the [facility] office for upload to the chart. - Ordered MRIs of the cervical and thoracic spine to investigate potential demyelinating lesions. - Will review MRI images once uploaded; should changes be nonspecific may consider deferring MRI spine. - If findings are concerning for MS, will refer to a [facility] provider in [place] for further evaluation. 2. Migraine without aura [...] leg and arm. She was admitted to [facility] (see course above) where stroke workup [...] MRI THORACIC SPINE WO/W IVCON Janet Fernandez APRN.CNP I spent a total of 40 minutes on the date of the service which included preparing to see the patient, gygl-wc-qmhs patient care, completing clinical documentation, obtaining and/or reviewing separately obtained history, performing a medically appropriate examination, counseling and educating the pat ient/family/caregiver, and ordering medications, tests, or procedures. documented in this encounterAshtabula County Medical Center06-05-2025 NoteHNO ID: [id number] Author: JANET FERNANDEZ APRN.CNP Service: ? Author Type: Nurse Practitioner Type: Progress Notes Filed: 11/14/2024 12:02 Note Text: [facility] [place] Follow-up Visit Follow-up note November 14, 2024 [...] B/B, tongue/cheek bite. Previous workup completed through [facility] included MRI brain, CTA head/neck, and [...] noted slurred/garbled speech. Workup was completed through [facility] at that time including CT brain, [...] records review on 10/31/24: Records received from [facility] and reviewed as below: Patient reportedly presented [...] migraines, anxiety, bipolar disorder, (more content not included)...[facility]05-22-2025 NoteHNO ID: [id number] Author: JANET FERNANDEZ APRN.ROLLING MACHINE OPERATOR AUTOMATIC Service: ? Author Type: Nurse Practitioner Type: Progress Notes Filed: 10/31/2024 11:24 Note Text: Records received from [facility] and reviewed as below: Patient reportedly presented [...] V. Hospital records to be scanned to chart.[facility]05-16-[facility] Instructions* Patient Instructions* Antwon Escobedo PA-C - 10/25/2024 9:43 AM EDT Aimovig 70 mg (migraine preventive): A prior authorization has been submitted and your refill will be sent to your [facility] pharmacy. Use one injection once a month [...] before finishing the course, you may stop early.Monitor closely for sedative side effects. Please take initially in a safe environment at home and do not drive while monitoring for effects of medication. Please bring all hospital paperwork and imaging (CT/MRI reports) to your upcoming neurology appointment on the in [place]. If your headache continues after finishing the [...] while taking this medication. documented in this encounterCleveland [id number] History of Present illness Narrative* Antwon Escobedo PA-C - 10/25/2024 8:30 AM EDT Images from the original note [...] visit. Either the patient or their legal traveling sales representative has been informed of therisks and benefits of -- and alternatives to [...] She notes that the migraine is "weighing onher." She has been using Nurtec as needed [...] taking Eliquis. She does not report any recentuse of steroids or muscle relaxers for migraine relief. Upon further investigation, she had a Medrol Dosepak at the end of August and prednisone taper in mid September. She is also taking Topamax 200 mg twice daily and Lamictal 200 mg daily. She reports significant stressors, including increased responsibilities at work due to a colleague's absence and her oldest child being away in [place] for a month. She believes these stressors [...] spontaneous and fluent without dysarthria. Short and halfway memory, cognition and general fund of knowledgeare good. Attention span and concentration are excellent. [...] osteoporosis. Their neurological examination is essentially normal atthis visit although this is limited due to [...] initiated prior authorization process; sent prescription to [facility] in [facility]. Discussed [facility] home delivery to expedite the process but patients insurance will only cover it being sent to [facility]. - Prescribed Parafon Forte 500 mg TID [...] use which can lead toMedication Overuse Headache: Cody Santana has been previously approved for an Oral Calcitonin Gene- Related Peptide Receptor Antagonist (GEPANT) Rimegepant for the [...] use which can lead toMedication Overuse Headache: MEDICATION TREATMENT: Medications to Start Taking chlorzoxazone (PARAFON FORTE DSC) 500 mg tablet Take 1 tablet (500 mg) by mouth four times a day until headache free for 24 hours or take for full 5 days. erenumab-aooe (AIMOVIG AUTOINJECTOR) 70 mg/mL auto-injector Inject 1 mL subcutaneously once every month. RESEARCH: None at this time Follow-up: 3 months and call office ([phone]) with problems or concerns before appointment Level of Service: Virtual Visit 31 minutes Recording using [employer] software for draft documentation of the visit was discussed with the patient/authorized traveling sales representative; all questions welcomed and answered. Patient/authorized traveling sales representative agreed to proceed This note was partially generated using [employer] voice recognition system, and there may be some incorrect words, spellings, and punctuation that were not noted in checking the note before saving. Antwon Escobedo PA-C Headache Section [facility] 2024 documented in this encounterAshtabula County Medical Center05-16-2025 NoteHNO ID: [id number] Author: ANTWON ESCOBEDO PA-C Service: ? Author Type: Physician Home Health Billing Specialist Type: Progress Notes Filed: 10/25/2024 09:44 Note [...] visit. Either the patient or their legal traveling sales representative has been informed of the [...] and her oldest child being away in [place] for a month. She believes these stresso (more content not included)...[facility]05-14-2025 Consult note [facility] Medical Records Department [address] [place] [address] Counseling Note - Pharmacy 10/23/24 9650 MR#: [id number] Acct: [id number] Name: CODY SANTANA Rep #:[id number] : 1985 38 From: Gabrielle Lucio PCP: Care Physician,No Primary Status :ADM MARGY Y Location: [place] [address] Pharmacy [facility] Service has performed discharge medication reconciliation [...] 150 mg/mL intramuscular syringe 150 mg IM .[id number] control 01/30/15 citalopram 40 mg tablet 40 [...] transdermal DAILY #28 ea 10/23/24 10/23/24 1551 Date _ Gabrielle Munoz Signature (if applicable): Date CC: ~ Signed [facility]05-14-2025 Discharge summary [facility] Medical Records Department [address] [place] [id number] Discharge Summary 10/23/24 1535 MR#: [id number] Acct: [id number] Name: CODY SANTANA Rep #:[id number] : 1985 38 From: Taye Gaston PCP: Care Physician,No Primary Status :ADM MARGY Location: [place] [address] Providers Date of Admission: 10/22/24 Date of [...] patient states that she follows neurologist in [place] and she had MRI brain with and without contrast short while ago and it showed significant white matter changes. Since this is not new finding and given option of follow-up [facility] teleneurology CTA and brain MRI r eportgiven and if needed it can be uploaded [...] baseline. She follows her own neurologist in [place] Mild chronic anemia: No acute issues History [...] with her own neurologist she has to pick up truck driver her daughter. Discharge medication reconciliation done. Discharge [...] 150 mg/mL intramuscular syringe 150 mg IM .[id number] control 01/30/15 citalopram 40 mg tablet 40 [...] (Auto) 44.7 L, Lymph % (Auto) 43.7 H,Wilkin % (Auto) 8.6, Eos % (Auto) 2.2, Baso % (Auto) 0.6, Absolute Neuts (auto) 2.9, Absolute Lymphs (auto) 2.80, Nucleated RBC % 0, Differential Comment SCANNED,Atypical Lymphocytes 2+, PT 14.3, INR 1.1, APTT [...] MPV 10.3, Immature Gran % (Auto) 0.200, Neut% (Auto) 38.1 L, Lymph % (Auto) 49.8 H,Wilkin % (Auto) 7.5, Eos % (Auto) 3.5, Baso % (Auto) 0.9, Absolute Neuts (auto) 2.5, Absolute Lymphs (auto) 3.27, Nucleated RBC % 0, Differential Comment SCANNED,Atypical Lymphocytes 2+, Sodium 143, Potassium 3.5, Chloride [...] IMPRESSION: No acute intracranial abnormality. Reading Location: [facility] Head/Neck CTA 10/22/24 21:18 IMPRESSION: Patent anterior and posterior intracranial and extracranial circulation, withouthemodynamically significant stenosis. Reading Location: [facility] Echocardiogram 10/22/24 21:59 Interpretation Summary Normal LV size. Left ventricular systolic function is normal. The left ventricular ejection fraction is 60 %. Structurally normal valves. Ordering Physician: Farhana Harden Performed By: Ilda Frank RDCS Brain MRI 10/23/24 09:00 IMPRESSION: Bilateral cerebral white matter changes, some with radial orientation, concerning for possible demyelinating disease in a patient of this age. Reading Location: [place] [address] D/C Instructions Discharge Diet: 2000 mg Sodium [...] / Restrictions: Patient follows on neurologist in [place]. She had MRI with and without contrast [...] medroxyprogesterone 150 MG/ML syringe 150 mg IM .[id number] citalopram 40 MG tablet 40 mg PO [...] Self Care Charges/Coding Visit Charges Inpatient E&M: 60352 Disch Hosp >30min 10/23/24 1541 Cosigner Signature (if applicable): CC: Dr. Taye Delvalle MD; No Primary Care Physician~ Signed [facility]05-14-2025 [facility] Medical Records Department [address] [place] [address] Discharge Summary 10/23/24 1535 MR#: [id number] Acct: [id number] Name: CODY SANTANA Rep #: [id number] : 1985 38 From: Taye Delvalle MD PCP: Care Physician,No Primary Status:ADM MARGY Location: [place] [address] Providers Date of Admission: 10/22/24 Date of [...] patient states that she follows neurologist in [place] and she had MRI brain with and [...] baseline. She follows her own neurologist in [place] Mild chronic anemia: No acute issues History [...] with her own neurologist she has to pick up truck driver her daughter. Discharge medication reconciliation done. Discharge [...] 150 mg/mL intramuscular syringe 150 mg IM .[id number] control 01/30/15 citalopram 40 mg tablet 40 [...] spray intranasal DAILY 03/15/23 (more content not included)...[facility]05-14-2025 Discharge summary [facility] Medical Records Department [address] [place] [address] Instructions for Home/Discharge Instructions 10/23/24 1529 MR#: [id number] Acct: [id number] Name: CODY SANTANA Rep #:[id number] : [...] / Restrictions: Patient follows on neurologist in [place]. She had MRI with and without contrast [...] medroxyprogesterone 150 MG/ML syringe 150 mg IM .[id number] citalopram 40 MG tablet 40 mg PO [...] can be placed): Home, Self Care 10/23/24 1535Taye Delvalle MD CC: Dr. Farhana Harden DO; No Primary Care Physician ~ Signed [facility]05-14-2025 History and physical note Author Farhana Harden [facility] Note Date/Time October 23, 2024 12:36 am [facility] Medical Records Department [address] [place] [address] H&P Exam - Hospitalist 10/22/24 2150 MR#: [id number] Acct: [id number] Name: CODY SANTANA Rep #:[id number] : 1985 38 From: Farhana Harden DO PCP: Care Physician,No Primary Status :ADM MARGY Location: [place] [address] HPI - General General Date of Admission: 10/22/24 Date of Service: 10/23/24 Chief Complaint: Left leg weakness/expressive aphasia/slurred speech/right arm paresthesias HPI Narrative CODY SANTANA, is a 38 F who presented to the emergency department [facility] on 10/23/2023 with a chief complaint of [...] stay to be less than 48 hours. [facility] Medical History Lumbar pain with radiation down right leg Dental caries Brain TIA Dysarthria Chronic migraine Anxiety and depression History of venous thromboembolism Obesity Tobacco use History of nephrolithiasis Chronic neck and back pain Factor 5 Leiden mutation, heterozygous Home Medications ?Medication ?Instructions ?Recorded ?Last Taken ?Type medroxyprogesterone 150 mg/mL 150 mg IM .[id number] verenice h control 01/30/15 08/24/24 11:00 History [...] Reaction Status Date / Time acetaminophen (From [place]) Allergy Itching Verified 10/22/24 20:55 hydrocodone (From [place]) Allergy Itching Verified 10/22/24 20:55 oxycodone (From [...] gait, abnormal speech, confusion, disequilibrium, dizziness, numbness, seizure- like activity, seizures, syncope, tingling, tremor(s) or other [...] (Auto) 44.7 L, Lymph % (Auto) 43.7 H,Wilkin % (Auto) 8.6, Eos % (Auto) 2.2, Baso % (Auto) 0.6, Absolute Neuts (auto) 2.9, Absolute Lymphs (auto) 2.80, Nucleated RBC % 0, PT 14.3, INR 1.1, APTT 30.8 Imaging Radiology Impression Brain CT 10/22/24 21:10 IMPRESSION: No acute intracranial abnormality. Reading Location: [facility] Assessment & Plan Assessment/Plan (1) Left leg [...] code verified Charges/Coding Visit Charges Inpatient E&M: 50771 Init Hosp L2 10/23/24 0036 <Electronically signed by Farhana Harden DO> Cosigner Signature (if applicable): CC: Dr. Farhana Harden DO; No Primary Care Physician~ Signed [facility] Work Phone: 1(840) 295-296505-14-2025 Discharge summary Author Jeremy Gerard [facility] Note Date/Time October 22, 2024 11:51 pm [facility] Medical Records Department [address] [place] [address] Emergency Department Summary 10/22/24 MR#: [id number] Acct: [id number] Name: CODY SANTANA Rep #:[id number] : 1985 38 From: Jeremy Larose PCP: Care Physician,No Primary Status :ADM MARGY Location: [place] [address] HPI History of Present Illness Chief Complaint: [...] ?Type medroxyprogesterone 150 mg/mL 150 mg IM .[id number] verenice h control 01/30/15 08/24/24 11:00 History [...] Reaction Status Date / Time acetaminophen (From [place]) Allergy Itching Verified 10/22/24 20:55 hydrocodone (From [place]) Allergy Itching Verified 10/22/24 20:55 oxycodone (From [...] Telestroke, hospitalist This note was generated with CICCWORLDation software. It may contain incorrectwords, spelling, and [...] 44.7 L Lymph % (Auto) 43.7 H Wilkin % (Auto) 8.6 Eos % (Auto) 2.2 [...] No acute intracranial abnormality. Reading Location: [facility] Head/Neck CTA 10/22/24 21:18 IMPRESSION: Patent anterior and posterior intracranial and extracranial circulation, withouthemodynamically significant stenosis. [facility] Critical Care Time Critical Care Time: Yes Critical care time (excluding procedures): 30-74 minutes, Discussing w/Patient &/or Family/Sand Screener Operator, Discussing w/Consultants, Arranging Admission or Transfer, Performing Direct Patient Care at Bedside and - (31 minutes) Discharge Plan Dx/Rx/DC Orders Clinical Impression: Expressive aphasia, Headache, Paresthesia Disposition Disposition: Acute Care Hospital [facility] Discharge Date/Time: 10/22/24 22:23 What to do if you have Problems For any increased pain, shortness of breath, bleeding, nausea or vomiting, chestpain, or any unexpected problems, contact your Primary Care Provider. Call [facility] ([phone]) or report to the closest Emergency Room. Call 911 if necessary. 10/22/24 0601 <Electronically signed by Jeremy Larose> Cosigner Signature (if applicable): CC: No Primary Care Physician ~ Signed [facility] Work Phone: 1(717) 826-257905-14-2025 History and physical note [facility] Medical Records Department [address] [place] [address] H&P Exam - Hospitalist 10/22/242149 MR#: [id number] Acct: [id number] Name: COYD SANTANA Rep #:[id number] : 1985 38 From: Farhana Harden DO PCP: Care Physician,No Primary Status :ADM MARGY Location: [place] [address] HPI - General General Date of Admission: 10/22/24 Date of Service: 10/23/24 Chief Complaint: Left leg weakness/expressive aphasia/slurred speech/right arm paresthesias HPI Narrative CODY SANTANA, is a 38 F who presented to the emergency department [facility] on 10/23/2023 with a chief complaint of [...] stay to be less than 48 hours. [facility] Medical History Lumbar pain with radiation down right leg Dental caries Brain TIA Dysarthria Chronic migraine Anxiety and depression History of venous thromboembolism Obesity Tobacco use History of nephrolithiasis Chronic neck and back pain Factor 5 Leiden mutation, heterozygous Home Medications ?Medication ?Instructions ?Recorded ?Last Taken ?Type medroxyprogesterone 150 mg/mL 150 mg IM .[id number] verenice h control 01/30/15 08/24/24 11:00 History [...] Reaction Status Date / Time acetaminophen (From [place]) Allergy Itching Verified 10/22/24 20:55 hydrocodone (From [place]) Allergy Itching Verified 10/22/24 20:55 oxycodone (From [...] (Auto) 44.7 L, Lymph % (Auto) 43.7 H,Wilkin % (Auto) 8.6, Eos % (Auto) 2.2, Baso % (Auto) 0.6, Absolute Neuts (auto) 2.9, Absolute Lymphs (auto) 2.80, Nucleated RBC % 0, PT 14.3, INR 1.1, APTT 30.8 Imaging Radiology Impression Brain CT 10/22/24 21:10 IMPRESSION: No acute intracranial abnormality. Reading Location: [facility] Assessment & Plan Assessment/Plan (1) Left leg [...] code verified Charges/Coding Visit Charges Inpatient E&M: 20812 Init Hosp L2 10/23/24 0036 Cosigner Signature (if applicable): CC: Dr. Farhana Harden DO; No Primary Care Physician~ Signed [facility]05-13-2025 Discharge summary [facility] Medical Records Department [address] [place] [address] Emergency Department Summary 10/22/24 MR#: [id number] Acct: [id number] Name: CODY SANTANA Rep #:[id number] : 1985 38 From: Jeremy Larose PCP: Care Physician,No Primary Status :ADM MARGY Location: [place] [address] HPI History of Present Illness Chief Complaint: [...] ?Type medroxyprogesterone 150 mg/mL 150 mg IM .[id number] verenice h control 01/30/15 08/24/24 11:00 History [...] Reaction Status Date / Time acetaminophen (From [place]) Allergy Itching Verified 10/22/24 20:55 hydrocodone (From [place]) Allergy Itching Verified 10/22/24 20:55 oxycodone (From [...] Telestroke, hospitalist This note was generated with CICCWORLDation software. It may contain incorrectwords, spelling, and [...] 44.7 L Lymph % (Auto) 43.7 H Wilkin % (Auto) 8.6 Eos % (Auto) 2.2 [...] IMPRESSION: No acute intracranial abnormality. Reading Location: [facility] Head/Neck CTA 10/22/24 21:18 IMPRESSION: Patent anterior and posterior intracranial and extracranial circulation, withouthemodynamically significant stenosis. Reading Location: [facility] Critical Care Time Critical Care Time: Yes Critical care time (excluding procedures): 30-74 minutes, Discussing w/Patient &/or Family/CareGiver, Discussing w/Consultants, Arranging Admission or Transfer, Performing Direct Patient Care atBedside and - (31 minutes) Discharge Plan Dx/Rx/DC Orders Clinical Impression: Expressive aphasia, Headache, Paresthesia Disposition Disposition: Acute Care Hospital [facility] Discharge Date/Time: 10/22/24 22:23 What to do if you have Problems For any increased pain, shortness of breath, bleeding, nausea or vomiting, chestpain, or any unexpected problems, contact your Primary Care Provider. Call [facility] ([phone]) or report tothe closest Emergency Room. Call 911 if necessary. 10/22/24 7871 Cosigner Signature (if applicable): CC: No Primary Care Physician ~ Signed [facility]05-13-2025 Evaluation note* Diagnosis Onset Date Resolution Status Admit Date Expressive aphasia resolved October 222024 9:51pm Headache resolved October 22, 2024 9:51pm Left leg weakness resolved October 9:51pm Anemia inactive October 22, 2024 9:51pm [facility] Work Phone: 1(365) 990-568205-13-2025 Radiology Diagnostic study note [facility] Imaging Services [address] [place], [place] [address] STROKE CTA Head AND Neck W/Con MR#: [id number] Acct: [id number] Name: CODY SANTANA Rep #: [id number] : 1985 F 38 From: Aracely Gerber MD PCP: Care Physician,No Primary Status: REG ER Study:STROKE CTA Head AND Neck W/Con Date of Exam: 10/22/24 Exam# [id number] Ordering Dr: Jeremy Gerard DO PROCEDURE: STROKE [...] RIGHT Vertebral: Unremarkable. LEFT Vertebral: Unremarkable. Anatomy: [place] anatomy is normal. Aneurysm or [...] extracranial circulation, withouthemodynamically significant stenosis. Reading [facility] CC: Dr. Jeremy Gerard DO; No Primary Care Physician ~ Chief Of Surgery: Signed [facility]05-13-2025 Radiology Diagnostic study note [facility] Imaging Services [address] [place] [address] STROKE Brain/Head without Cont MR#: [id number] Acct: [id number] Name: CODY SANTANA Rep #: [id number] : 1985 F 38 From: Aracely Gerber MD PCP: Care Physician,No Primary Status: REG ER Study:STROKE Brain/Head without Cont Date of Exam: 10/22/24 Exam# [id number] Ordering Dr: Jeremy Gerard DO PROCEDURE: STROKE [...] Gerard DO; No Primary Care Physician ~ Chief Of Surgery: Signed [facility]05-06-2025 Telephone encounter Note* Telephone Encounter - Unruly Gonzalez RN - 10/15/2024 10:04 AM EDT Images from the original note were not included. Cody Santana (Dimas: [id number]) Need Help? Call us at Status Sent to Plan today Drug Nurtec 75MG dispersible tablets Form [place] Medicaid Talko Electronic PA Form (2016 NCPDP) [facility]05-06-2025 Miscellaneous Notes* Telephone Encounter - Unruly Gonzalez RN - 10/15/2024 10:04 AM EDT Images from the original note were not included. Cody Santana (Dimas: [id number]) Need Help? Call us at Status Sent to Plan today Drug Nurtec 75MG dispersible tablets Form [place] Medicaid Talko Electronic PA Form (2016 NCPDP) documented in this encounterAshtabula [facility] Center04-13-2025 Radiology Diagnostic study note [facility] Imaging Services [address] [place], [place] [address] Wrist min 3 Views MR#: [id number] Acct: [id number] Name: CODY SANTANA Rep #: [id number] : 1985 F 38 From: Oscar Ontiveros DO PCP: Care Physician,No Primary Status: REG ER Study:Wrist min 3 Views Date of Exam: Exam# [id number] Ordering Dr: Shilo Koch DO EXAM: Right wrist radiographs CLINICAL HISTORY: Pain COMPARISON: None TECHNIQUE: Three views of the right wrist FINDINGS: See impression RAD/Wrist min 3 Views IMPRESSION: Negative for acute displaced fracture or dislocation. No significant arthropathy. Reading Location: [facility] CC: Dr. Shilo Dunne DO; No Primary Care Physician ~ Chief Of Surgery: Signed [facility]04-07-2025 Telephone encounter Note* Telephone Encounter - Dalia [...] ONCE EVERY MONTH Pharmacy Name: Donnie Wor[facility]04-07-2025 Miscellaneous Notes* Telephone Encounter - Dalia Worthington [...] ONCE EVERY MONTH Pharmacy Name: [facility] [place] documented in this encounterAshtabula [facility]03-[facility]-2025 NoteHNO ID: [id number] Author: CHARLINE WOOTEN APRN.ROLLING MACHINE OPERATOR AUTOMATIC Service: ? Author Type: Nurse Practitioner Type: [...] right facial weakness and was admitted to [facility]. As per the patient, stroke was [...] was laying down to go to bed. Childs like prior episodes. No issues getting up [...] lovenox then consideration of going to xarel. [facility] vascular -unsure of next appt with Vascular [...] wheezing/shortness of breath. m (more content not included)...[facility]03-14-2025 Evaluation note* Diagnosis Onset Date Resolution Status Admit Date Acute lumbar myofascial strain inact ivon August 23, 2024 9:00am Lumbar pain acute September 07, 025 11:18am Anemia acute October 22, 2024 9:51pm Expressive aphasia acute October 222024 9:51pm Headache acute October 22, 2024 9:51pm Left leg weakness acute October 9:51pm [facility] Work Phone: 1(227) 903-545802-17-2025 History of Present illness Narrative* Savage Kasper, [...] PATIENT PRESENTS WITH AN IMPLANTABLE OR ATTACHED PURIFICATION OPERATOR: No RADIOLOGY DEPARTMENT: General X-ray: Exam(s) Completed: Upper Extremity X- Ray(s): Wrist, right PERIPHERAL IV DATA: Not applicable SIGNED BY: RT Berlin(R) July 29, 2024 7:25 PM documented in this encounterAshtabula [facility]02-17-2025 NoteHNO ID: [id number] Author: SAVAGE KASPER RT(R) Service: Radiology Author [...] PATIENT PRESENTS WITH AN IMPLANTABLE OR ATTACHED PURIFICATION OPERATOR: No RADIOLOGY DEPARTMENT: General X-ray: Exam(s) Completed: Upper Extremity X-Ray(s): Wrist, right PERIPHERAL IV DATA: Not applicable SIGNED BY: RT Berlin(R) July 29, 2024 7:25 [facility]02-17-2025 NoteHNO ID: [id number] Author: JEOVANY JOSEPH PA-C Service: ? Author Type: Physician Home Health Billing Specialist Type: Progress Notes Filed: 07/29/2024 20:03 Note Text: This note was created using RBM Technologiesriter. 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 Patient demonstrates reduced range of motion in [...] XR WRIST GENERAL 3V PA/LAT/OBL RIGHT ALONZO [facility]02-17-2025 History of Present illness Narrative* Jeovany Joseph PA-C - 07/29/2024 7:21 PM EST This note was created using KupiKupon. 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 Patient reports no pain or [...] intact and thepatient demonstrates strong and equal crabbing machine operator. Patient demonstrates reduced range of motion in [...] RIGHT Jeovany Joseph PA-C documented in this encounterAshtabula [facility] Center02-06-2025 Telephone encounter Note * Telephone Encounter - Inderjit Ontiveros MA - 07/18/2024 4:16 PM EST Patient notified. Inderjit Ontiveros MA [facility]02-06-2025 Miscellaneous Notes* Telephone Encounter - Inderjit Ontiveros MA - 07/18/2024 4:16 PM EST Patient notified. Inderjit Ontiveros MA * Telephone Encounter - Neli Redd APRN.CNP - 07/18/2024 3:04 PM EST CXR negative Strep negative Please advise patient documented in this encounterAshtabula [facility] Center02-06-2025 Telephone encounter Note * Telephone Encounter - Neli Redd APRN.CNP - 07/18/2024 3:04 PM EST CXR negative Strep negative Please advise patient [facility] Work Phone: [phone]) 519-651302-06-2025 History of Present illness Narrative* Savage Kasper, [...] PATIENT PRESENTS WITH AN IMPLANTABLE OR ATTACHED PURIFICATION OPERATOR: No RADIOLOGY DEPARTMENT: General X-ray: Exam(s) Completed: Chest X-Ray PERIPHERAL IV DATA: Not applicable SIGNED BY: RT Berlin(Lisa) July 18, 2024 2:27 PM documented in this encounterAshtabula County Medical Center02-06-2025 NoteHNO ID: [id number] Author: SAVAGE KASPER RT(R) Service: Radiology Author [...] PATIENT PRESENTS WITH AN IMPLANTABLE OR ATTACHED PURIFICATION OPERATOR: No RADIOLOGY DEPARTMENT: General X-ray: Exam(s) Completed: Chest X-Ray PERIPHERAL IV DATA: Not applicable SIGNED BY: RT Berlin(R) July 18, 2024 2:27 [facility]02-06-2025 NoteHNO ID: [id number] Author: NELI REDD APRN.ROLLING MACHINE OPERATOR AUTOMATIC Service: ? Author Type: Nurse Practitioner Type: Progress Notes Filed: 07/18/2024 14:34 Note Text: This note was created using RBM Technologiesriter. Subjective Cody Santana is a 38 year [...] is provided by the patient. No foreign languages department chair was used. Cough This is a new [...] Head: Normocephalic and atraumatic. (more content not included)...[facility]02-06-2025 History of Present illness Narrative* Neli Redd APRN.ROLLING MACHINE OPERATOR AUTOMATIC - 07/18/2024 2:19 PM EST This note was created using KupiKupon. Sarath Santana is a 38 year old [...] is provided by the patient. No foreign languages department chair was used. Cough This is a new [...] and will call with results Will call [phone] - STREP A MOLECULAR (POC) Neli Redd APRN.ROLLING MACHINE OPERATOR AUTOMATIC documented in this encounterAshtabula County Medical Center02-03-2025 Telephone encounter Note * Telephone Encounter - Victor Manuel Horn - 07/15/2024 9:05 AM EST Schedules have not been entered for 2025. Will postpone note to contact patient and enter recall letter. Patient informed. [facility] Work Phone: 1(989) 401-768602-03-2025 Miscellaneous Notes* Telephone Encounter - Victor Manuel [...] office. Paty Arciniega DO documented in this encounterAshtabula County Medical Center02-03-2025 Telephone encounter Note * Telephone Encounter - [...] Information faxed as directed. Natalie Mancia LPN [facility]02-02-2025 Telephone encounter Note* Telephone Encounter - Paty [...] her primary care's office. Paty Arciniega DO [facility]01-16-2025 Telephone encounter Note* Telephone Encounter - Cody Riley MA - 06/27/2024 8:58 AM EST Patient active MyChart. Patient notified via Strava message. Cody Riley MA [facility]01-16-2025 Miscellaneous Notes* Telephone Encounter - Cody Riley MA - 06/27/2024 8:58 AM EST Patient active MyChart. Patient notified via Strava message. Cody Riley MA * Telephone Encounter [...] any new or worsening symptoms. Les Mckeon APRN.KOLE documented in this encounterAshtabula County Medical Center01-16-2025 Telephone encounter Note * Telephone Encounter - Inderjit Ontiveros MA - 06/27/2024 8:43 AM EST Left VM instructing patient to return call to receive results. Inderjit Ontiveros MA [facility]01-16-2025 Telephone encounter Note* Telephone Encounter - Les Mckeon APRN.CNP - 06/27/2024 7:25 AM EST Please inform patient that she did test positive for COVID-19. Follow return to work guidelines as provided during yesterday's visit. Continue supportive therapies. Follow-up with ED or PCP for any new or worsening symptoms. Les Mckeon APRN.KOLE [facility]01-15-2025 NoteHNO ID: [id number] Author: JEOVANY JOSEPH PA-C Service: ? Author Type: Physician Home Health Billing Specialist Type: Progress Notes Filed: 06/26/2024 16:33 Note Text: This note was created using KupiKupon. Subjective Cody Santana is a 38 year [...] INFLUENZA A/B AND RSV PCR, ROUTINE ALONZO [facility]01-15-2025 History of Present illness Narrative* Jeovany Joseph PA-Radha - 06/26/2024 4:15 PM EST This note was created using KupiKupon. Subjective Cody Santana is a 38 year [...] ROUTINE Jeovany Joseph PA-C documented in this encounterAshtabula County Medical Center01-08-2025 Evaluation note* Diagnosis Onset Date Resolution Status Admit Date Impetigo acute June 19, 025 11:18am [facility] Work Phone: 1(227) 242-771701-08-2025 Evaluation note* Diagnosis Onset Date Resolution Status Admit Date Impetigo acute June 19, 2 025 11:18am Acute lumbar myofascial strain inactive August 23, 2024 9:00am Lumbar pain acute September 07 025 11:18am [facility] Work Phone: 1(197) 778-869601-02-2025 Telephone encounter Note* Telephone Encounter - Victor Manuel Horn - 06/13/2024 2:12 PM EST Lab scheduled [facility] Work Phone: 1(528) 562-304201-02-2025 Miscellaneous Notes* Telephone Encounter - Victor Manuel Horn - 06/13/2024 2:12 PM EST Lab scheduled * Telephone Encounter - Mary Alice Rutledge LPN - 06/13/2024 12:05 PM EST Reviewed all instructions with patient and also sent instructions via Strava. PSS- please schedule a lab appointment for [...] results. Paty Arciniega DO documented in this encounterAshtabula [facility] Center01-02-2025 Telephone encounter Note * Telephone Encounter - Mary Alice Rutledge LPN - 06/13/2024 12:05 PM EST Reviewed all instructions with patient and also sent instructions via Strava. PSS- please schedule a lab appointment for LUPUS ANTI-COAGULANT PANEL 06/21/2024 @ 1:30 pm. Patientis aware of appointment date and time. Mary Alice Rutledge LPN [facility]01-02-2025 Telephone encounter Note* Telephone Encounter - Mary Alice Rutledge LPN - 06/13/2024 10:51 AM EST Left message for patient to contact the office. Mary Alice Rutledge LPN [facility]01-01-2025 Telephone encounter Note* Telephone Encounter - [...] from us with results. Paty Arciniega DO [facility]12-20-2024 NoteHNO ID: [id number] Author: PATY ARCINIEGA DO Service: ? Author Type: Physician Type: Progress Notes Filed: 05/31/2024 15:00 Note Text: Hematologic problem(s): 1) Factor V Leiden. 2) Several VTE events. HPI: Patient is a 38-year-old female with past medical history as outlined below. DVT left leg diagnosed somewhere [id number]. Anticoagulated for several months. Multiple PEs. Anticoagulated [...] early to have tested positive for . [facility]. On Depo-Provera since about 2015. Was admitted to [facility] in August of this year for TIA. [...] of a lower extremity duplex ultrasound at [facility] from 08/07/2020 showing partial compressibility with [...] bloody stools. : No (more content not included)...[facility]12-20-2024 History of Present illness Narrative* Paty Arciniega, - 05/31/2024 2:38 PM EST Hematologic problem(s): 1) Factor V Leiden. 2) Several VTE events. HPI: Patient is a 38-year-old female with past medical history as outlined below. DVT left leg diagnosed somewhere 5534-1550. Anticoagulated for several months. Multiple PEs. Anticoagulated for several months. Recurrent PEs. At that point she recalls having testing done that revealed factor V Leiden. Was advised indefinite anticoagulation. This was in 2019. Has no copay for apixaban. Endorses she is consistently taking it. Three children--2008, 2009 and 2016. All full term. At age 17, may have had a miscarriage at a very young gestational age--was told too early to have tested positive for . [facility]. On Depo-Provera since about 2015. Was admitted to [facility] in August of this year for TIA. [...] of a lower extremity duplex ultrasound at [facility] from 08/07/2020 showing partial compressibility with [...] (primary encounter diagnosis) (D68.51) Factor V Leiden ([facility]) (D68.62) Lupus anticoagulant disorder ([facility]) Assessment: -The patient is a 38-year-old female [...] which included preparing to see the patient, zxxj-yg-ljpn patient care, completing clinical documentation, counseling and educating the patient/family/caregiver, communicating with other HCPs (not separately reported), and communicating results to the patient/family/caregiver. Paty Arciniega DO documented in this encounterAshtabula County Medical Center12-13-2024 History of Present illness Narrative* Rhiannon Barajas [...] PATIENT PRESENTS WITH AN IMPLANTABLE OR ATTACHED PURIFICATION OPERATOR: No RADIOLOGY DEPARTMENT: General X-ray: Exam(s) Completed: Upper Extremity X- Ray(s): Shoulder, AP / TRUE AP / AXILLARY right PERIPHERAL IV DATA: Not applicable SIGNED BY: RT Bridget(Lisa) May 24, 2024 11:37 AM documented in this encounterAshtabula County Medical Center12-13-2024 NoteHNO ID: [id number] Author: RHIANNON BARAJAS RT (R) Service: ? Author Type: Cooler Man Type: Progress Notes Filed: 05/24/2024 11:55 Note [...] PATIENT PRESENTS WITH AN IMPLANTABLE OR ATTACHED PURIFICATION OPERATOR: No RADIOLOGY DEPARTMENT: General X-ray: Exam(s) Completed: Upper Extremity X-Ray(s): Shoulder, AP / TRUE AP / AXILLARY right PERIPHERAL IV DATA: Not applicable SIGNED BY: Rhiannon Barajas RT(R) May 24, 2024 11:37 [facility]12-13-2024 NoteHNO ID: [id number] Author: LES MCKEON APRN.ROLLING MACHINE OPERATOR AUTOMATIC Service: ? Author Type: Nurse Practitioner Type: [...] surgeries or fractures previously. Is not . Mumsf-igiq-jbdsrfni. Past medical history prescription medications allergies reviewed. [...] for discharge. Plan of (more content not included)...[facility]12-13-2024 History of Present illness Narrative* Les Mckeon APRN.ROLLING MACHINE OPERATOR AUTOMATIC - 05/24/2024 11:25 AM EST Images from [...] surgeries or fractures previously. Is not . Excrb-prwv-jrotwssf. Past medical history prescription medications allergies reviewed. [...] of care. This note was generated using SmartThings software. It may contain errors in wording, punctuation, or spelling. Les Mckeon APRN.ROLLING MACHINE OPERATOR AUTOMATIC documented in this encounterAshtabula County Medical Center11-19-2024 Telephone encounter Note * Telephone Encounter - Unruly Gonzalez RN - 04/30/2024 3:19 PM EST Cody Santana (Dimas: [id number]) - [id number] Nurtec 75MG dispersible tablets status: PA Response - Approved Created: April 29, 2024 [id number] Sent: April 30, 2024 [facility]11-19-2024 Miscellaneous Notes* Telephone Encounter - Unruly Gonzalez RN - 04/30/2024 3:19 PM EST Cody Santana (Dimas: [id number]) - [id number] Nurtec 75MG dispersible tablets status: PA Response - Approved Created: April 29, 2024 [id number] Sent: April 30, 2024 * Telephone Encounter - Unruly Gonzalez RN - 04/30/2024 11:25 AM EST Cody Juliancrhistiano (Dimas: [id number]) - [id number] Nurtec 75MG dispersible tablets status: PA Request Created: April 29, 2024 [id number] Sent: April 30, 2024 documented in this encounterAshtabula County Medical Center11-19-2024 Telephone encounter Note * Telephone Encounter - Unruly Gonzalez RN - 04/30/2024 11:25 AM EST Cody Esther (Dimas: [id number]) - [id number] Nurtec 75MG dispersible tablets status: PA Request Created: April 29, 2024 [id number] Sent: April 30, 2024 [facility]11-18-2024 Telephone encounter Note* Telephone Encounter - Sam Guevara RN - 04/29/2024 11:38 AM EST Nurtec last ordered 09/14/2023, 16 tablets with 2 refills, start 09/14/23 end 12/13/23 [place], [place] ABDULKADIR: 10/02/2023 Distance Health visit with [...] to Dr. Monge for review and recommendations. [facility]11-18-2024 Miscellaneous Notes* Telephone Encounter - Sam Guevara RN - 04/29/2024 11:38 AM EST Nurtec last ordered 09/14/2023, 16 tablets with 2 refills, start 09/14/23 end 12/13/23 [place], [place] ABDULKADIR: 10/02/2023 Distance Health visit with [...] for review and recommendations. documented in this encounterAshtabula County Medical Center10-31-2024 Telephone encounter Note * Telephone Encounter - Cody Riley MA - 04/11/2024 8:14 AM EDT Patient active Strava. Last login 04/10. Patient notified via Strava message. Cody Riley MA [facility]10-31-2024 Miscellaneous Notes* Telephone Encounter - Cody Riley MA - 04/11/2024 8:14 AM EDT Patient active Strava. Last login 04/10. Patient notified via Strava message. Cody Riley MA * Telephone Encounter - Crissy Bell APRN.CNP - 04/11/2024 7:41 AM EDT Please notify knee xray negative. Continue with plan as discussed during visit. documented in this encounterAshtabula County Medical Center10-31-2024 Telephone encounter Note * Telephone Encounter - Crissy Bell APRN.CNP - 04/11/2024 7:41 AM EDT Please notify knee xray negative. Continue with plan as discussed during visit. [facility] Work Phone: 1(499) 399-562110-30-2024 History of Present illness Narrative* Rhiannon Barajas, RT(R) - 04/10/2024 7:50 PM EDT Radiology Service [...] PATIENT PRESENTS WITH AN IMPLANTABLE OR ATTACHED PURIFICATION OPERATOR: No RADIOLOGY DEPARTMENT: General X-ray: Exam(s) Completed: Lower Extremity X- Ray(s): Knee, AP / Lat / Tunne / Merchant Left PERIPHERAL IV DATA: Not applicable SIGNED BY: RT Bridget(R) April 10, 2024 8:02 PM documented in this encounterAshtabula County Medical Center10-30-2024 History of Present illness Narrative* Jay Delgado APRN.ROLLING MACHINE OPERATOR AUTOMATIC - 04/10/2024 7:41 PM EDT This note was created using RBM Technologiesriter. Subjective Cody Santana is a 38 year [...] 4V AP BOTH/PA BOTH/LAT/MERC LEFT Jay Delgado APRN.CNP documented in this encounterAshtabula County Medical Center10-17-2024 History of Present illness Narrative* Rhiannon Barajas [...] PATIENT PRESENTS WITH AN IMPLANTABLE OR ATTACHED PURIFICATION OPERATOR: No RADIOLOGY DEPARTMENT: General X-ray: Exam(s) Completed: Chest X-Ray PERIPHERAL IV DATA: Not applicable SIGNED BY: RT Bridget(R) March 28, 2024 7:07 PM documented in this encounterAshtabula County Medical Center10-17-2024 History of Present illness Narrative* Neli Redd APRN.CNP - 03/28/2024 7:02 PM EDT This note was created using NoteWriter. Subjective [...] is provided by the patient. No foreign languages department chair was used. Cough This is a new [...] work up Discussed red flags Neli Redd APRN.ROLLING MACHINE OPERATOR AUTOMATIC documented in this encounterAshtabula County Medical Center10-08-2024 History of Present illness Narrative* Michelle Marvin APRN.KOLE - 03/19/2024 9:22 AM EDT CC: Patient [...] plan. Michelle Marvin APRN.KOLE documented in this encounterAshtabula County Medical Center09-18-2024 Instructions* Patient Instructions* Charline Wooten APRN.CNP - 02/28/2024 11:25 AM EDT Images from the original note were not included. Regarding your visit with Nurse Practitioner Charline Wooten today at the [facility] we discussed the following: Impression: [...] if you have any questions Charline Wooten [facility]bro[facility] [place] Nurse Practitioner [place], [place] [address] Office: [phone] Appointments: [phone] Stroke Signs and Symptoms: *Stroke is a [...] of these signs, don't delay! Immediately call [phone], orthe emergency medical services (EMS) number so [...] DASH-style diet rich in fruits and vegetables (https://www.nhlbi.nih.gov/education/xwid-szqvhl-fmvp) - Consider Mediterranean diet supplemented with nuts [...] of an exercise program by a health cardiac care nurse such as a physical therapist or cardiac [...] for their cardiovascular health Adapted from the [place] [employer] Association/[place] Stroke Association: 2021 Guideline for the Prevention of Stroke in Patients With Stroke and Transient Ischemic Attack documented in this encounterAshtabula County Medical Center09-18-2024 History of Present illness Narrative* Charline Wooten [...] and right facial weakness and was admitted [facility]. As per the patient, stroke was [...] was laying down to go to bed. Childs like prior episodes. No issues getting up [...] months lovenox then consideration of going to [facility] vascular -unsure of next appt with [...] which included preparing to see the patient, kfzc-gq-mpqm patient care, completing clinical documentation, obtaining and/or [...] is the provider ID). documented in this encounterAshtabula County Medical Center09-18-2024 NoteHNO ID: [id number] Author: CHARLINE WOOTEN APRN.CNP Service: ? Author [...] right facial weakness and was admitted to [facility]. As per the patient, stroke was [...] was laying down to go to bed. Childs like prior episodes. No issues getting up [...] months lovenox then consideration of going to [facility] vascular -unsure of next appt with [...] GROIN AREA DIRECTED topiramate (more content not included)...[facility]08-26-2024 Telephone encounter Note* Telephone Encounter - Victor Manuel Horn - 02/05/2024 10:58 AM EDT Scheduled with patient [facility] Work Phone: 1(684) 267-355108-26-2024 Miscellaneous Notes* Telephone Encounter - Victor Manuel [...] office visit note from vascular surgery at [facility]. She had presented to the ER at [facility] on 01/07 with complete of pain [...] OV. Paty Arciniega DO documented in this encounterAshtabula County Medical Center08-26-2024 Telephone encounter Note * Telephone Encounter - Victor Manuel Horn - 02/05/2024 10:48 AM EDT 1st attempt. Message left for patient to contact office to schedule- D dimer lab then office visit with Dr. Arciniega in 4 months [facility]08-25-2024 Telephone encounter Note* Telephone Encounter - Paty Arciniega DO - 02/04/2024 3:34 PM EDT I reviewed the office visit note from vascular surgery at [facility]. She had presented to the ER at [facility] on 01/07 with complete of pain [...] the time of OV. Paty Arciniega DO [facility] Work Phone: [phone]) 207-575108-07-2024 Telephone encounter Note* Telephone Encounter - Mary Alice Rutledge LPN - 01/17/2024 1:11 PM EDT Patient notified of all instructions. Vascular surgery note obtained and sent to scanning in [place]. Mary Alice Rutledge LPN [facility]08-07-2024 Miscellaneous Notes* Telephone Encounter - Mary Alice Rutledge LPN - 01/17/2024 1:11 PM EDT Patient notified of all instructions. Vascular surgery note obtained and sent to scanning in [place]. Mary Alice Rutledge LPN * Telephone Encounter [...] Rutledge LPN - 01/17/2024 10:25 AM EDT [facility] put patient on Lovenox 90 [...] drawn. Paty Arciniega DO documented in this encounterAshtabula County Medical Center08-07-2024 Telephone encounter Note * Telephone Encounter - Paty Arciniega DO - 01/17/2024 1:01 PM EDT I was not informed that she saw a vascular surgeon and I have no idea why she was changed to Lovenox. I recommend she continue Lovenox and follow-up with them. Perhaps I could get their office note? Paty Arciniega DO [facility]08-07-2024 Telephone encounter Note* Telephone Encounter - Mary Alice Rutledge LPN - 01/17/2024 10:25 AM EDT [facility] put patient on Lovenox 90 mg BID beginning 01/08/2024. She has not been taking Eliquis since then. When should she stop Lovenox for labs needed? Mary Alice Rutledge LPN [facility]08-07-2024 Telephone encounter Note* Telephone Encounter - Victor Manuel Horn - 01/17/2024 10:20 AM EDT Patient called in stating that she had taken eliquis morning of 01/07, while at hospital same day, they told her to stop eliquis and they gave her a shot. Patient unsure of name of injection. She is asking if this changes request from Dr. Arciniega. Please advise. [facility] Work Phone: 1(998) 957-678808-07-2024 Telephone encounter Note* Telephone Encounter - Mary Alice Rutledge LPN - 01/17/2024 8:55 AM EDT Message left for patient to contact office for medication instructions and to schedule a lab appointment for 01/22/2024. Mary Alice Rutledge LPN [facility]08-07-2024 Telephone encounter Note* Telephone Encounter - Paty Arciniega DO - 01/17/2024 8:37 AM EDT Her D-dimer was normal. Hold apixaban the rest of this week and come in Monday for lab workfiled under this counter. Restart apixaban after lab work drawn. Paty Arciniega DO [facility]08-05-2024 Telephone encounter Note* Telephone Encounter - Mary Alice Rutledge LPN - 01/15/2024 10:58 AM EDT Patient scheduled today for D Dimer. Mary Alice Rutledge LPN [facility]08-05-2024 Miscellaneous Notes* Telephone Encounter - Mary Alice [...] that we did receive previous records from [facility]. Not able to confirm that she has [...] now. Paty Arciniega DO documented in this encounterAshtabula County Medical Center08-02-2024 Telephone encounter Note * Telephone Encounter - Mary Alice Rutledge LPN - 01/12/2024 8:16 AM EDT Message left for patient to contact office. Mary Alice Rutledge LPN [facility]08-01-2024 Telephone encounter Note* Telephone Encounter - Paty Arciniega DO - 01/11/2024 5:09 PM EDT Can let her know that we did receive previous records from [facility]. Not able to confirm that she has [...] Continue Eliquis for now. Paty Arciniega DO [facility]06-04-2024 Nurse Note* Natalie Mancia LPN - 11/14/2023 1:49 PM EDT New patient, Per Diya Newmanf : Refer to the hematology service to assess the indications of Eliquis andthe safety of Depo Provera hormonal injections in the background of DVT/PE and Factor V Leiden mutation . Natalie Mancia LPN [facility]06-04-2024 Nurse Note* Natalie Mancia LPN - 11/14/2023 1:49 PM EDT New patient, Per Diya Newmanf : Refer to the hematology service to assess the indications of Eliquis andthe safety of Depo Provera hormonal injections in the background of DVT/PE and Factor V Leiden mutation . Natalie Mancia LPN documented in this encounterAshtabula County Medical Center06-04-2024 History of Present illness Narrative* Paty Arciniega DO - 11/14/2023 1:47 PM EDT Patient referred by Dr. Elizabeth Marques for h/o factor V Leiden. The impression and plan will be communicated by way of the shared electronic record or faxed under separate cover letter. HPI: Patient is a 38-year-old female with past medical history as outlined below. DVT left leg diagnosed somewhere 9871-6961. Anticoagulated for several months. Multiple PEs. Anticoagulated [...] early to have tested positive for . [facility]. On Depo-Provera since about 2015. Was admitted to [facility] in August of this year for TIA. [...] of a lower extremity duplex ultrasound at [facility] from 08/07/2020 showing partial compressibility with [...] (97.6 F), height 160 cm (5' 3"), ponaiq10 kg (194 lb), SpO2 98%. Well-appearing and in no acute distress. EYES: Sclerae are anicteric bilaterally. RESPIRATORY: Inspiratory breath sounds are of normal intensity in all bermudez. CARDIOVASCULAR: Rhythm is regular. ABDOMEN: The abdomen is nondistended. Extremities: Mild chronic appearing swelling both lower extremities. SKIN: Few scattered varicose veins lower extremities. [facility]. ASSESSMENT/PLAN: (D68.51) Factor V Leiden (HCC) [...] to see the patient (reviewing records via [facility] electronic record), zsco-cf-yjiq patient care, completing clinical documentation, obtaining and/or reviewing separately obtained history, performing a medically appropriate examination, counseling and educating the patient/family/caregiver, ordering medications, tests, or procedures, communicating with other HCPs (not separately reported), and communicating results to the patient/family/caregiver. Paty Arciniega DO documented in this encounterAshtabula County Medical Center06-03-2024 NoteHNO ID: [id number] Author: ELIZABETH MARQUES MD Service: ? Author Type: Physician Type: Progress Notes Filed: 11/13/2023 14:34 Note Text: [facility] Initial Visit Consultation is requested by: Janet Fernandez [id number] [facility] [id number] PCP: To use this Smartlink, specify the [...] right facial weakness and was admitted to [facility]. As per the patient, stroke was [...] side Coordination: Rapid alternating movements symmetric bilaterally. Tkkdnq-bk-zppr, without dysmetria bilaterally. Gait: Narrow-based, normal spaced [...] Global Health Scale Physical (more content not included)...[facility]06-03-2024 History of Present illness Narrative* Elizabeth Marques MD - 11/13/2023 1:57 PM EDT [facility] Initial Visit Consultation is requested by: Janet Fernandez [address] [facility] [address] PCP: To use this Smartlink, specify the [...] and right facial weakness and was admitted [facility]. As per the patient, stroke was suspected and was advised MRI brain as out patient. However, the MRI brain that was done two months later was negative for stroke. No recurrence of stroke symptoms. She was referred to the stroke clinic for further evaluation and management. Patient has not been adherent with the [facility] Review of system: Mild snoring but no [...] side Coordination: Rapid alternating movements symmetric bilaterally. Eoiwzj-se-ayiv, without dysmetria bilaterally. Gait: Narrow-based, normal spaced [...] At that time, she was admitted to [facility] where stroke was suspected. The MRI [...] which included preparing to see the patient, prgc-zo-qawz patient care, completing clinical documentation, obtaining and/or reviewing separately obtained history, performing a medically appropriate examination, counseling and educating the patient/family/caregiver, ordering medications, tests, or procedures, independently interpreting results (not separately reported), and communicating results to the patient/family/caregiver SIGNATURE Elizabeth Marques MD Janet Fernandez [address] [facility] [address] To use this Smartlink, specify the provider ID whose address you want to display, e.g., .PROVADDR[1(where 1 is the provider ID). documented in this encounterAshtabula County Medical Center05-16-2024 Telephone encounter Note * Telephone Encounter - Paty Arciniega DO - 10/26/2023 3:51 PM EDT Has been on apixaban for some time. Consult not urgent. Next new patient appointment with me or . [facility] Work Phone: 1(775) 891-598005-16-2024 Miscellaneous Notes* Telephone Encounter - Paty Arciniega [...] Please review and advise documented in this encounterAshtabula County Medical Center05-16-2024 Telephone encounter Note * Telephone Encounter - Danitza Lucero - 10/26/2023 8:10 AM EDT Patient is being referred to Hematology. DX: DVT, PE, Factor V Lieden Insurance: [employer] Referred by: Elizabeth Marques Please review and advise [facility]05-15-2024 Telephone encounter Note* Telephone Encounter - Shanda Parikh - 10/25/2023 10:56 AM EDT Submitted through portal Consult to Hematology/Oncology #[id number], to be scheduled in [facility]05-15-2024 Miscellaneous Notes* Telephone Encounter - Shanda Parikh - 10/25/2023 10:56 AM EDT Submitted through portal Consult to Hematology/Oncology #[id number], to be scheduled in [facility] documented in this encounterAshtabula County Medical Center05-10-2024 Telephone encounter Note * Telephone Encounter - Aye Young RN - 10/20/2023 11:21 AM EDT Approved on October 04 Approved for quantity limit 1 injection per 30 days Authorization Expiration Date: 03/31/2024 Drug Aimovig 70MG/ML auto-injectors ePA cloud logo Form [place] Medicaid Talko Electronic PA Form (2016 [facility]) [facility]05-10-2024 Miscellaneous Notes* Telephone Encounter - Aye Young RN - 10/20/2023 11:21 AM EDT Approved on October 04 Approved for quantity limit 1 injection per 30 days Authorization Expiration Date: 03/31/2024 Drug Aimovig 70MG/ML auto-injectors ePA cloud logo Form [place] Medicaid Talko Electronic PA Form (2016 [facility]) documented in this encounterAshtabula County Medical Center05-03-2024 History of Present illness Narrative* Negra Potts [...] Bailey - 10/02/2023 5:40 PM EDT Nomad# [id number] +GPS , Date shipped out: 10/01 SENT FEDEX DELIVERY - FEDEX RETURN Tracking mailout: [id number] Tracking return: [phone] * García Maxwell III, PhD - 09/25/2023 1:42 PM EDT September 25, 2023 Standing PSG Orders signed in the last 90 days None Future PSG Orders signed in the last 90 days Ordered Auth. provider HOME SLEEP APNEA TEST (HSAT) [[id number]] 09/14/23 Janet Fernandez APRN.ROLLING MACHINE OPERATOR AUTOMATIC Assoc. diagnoses: Snoring [R06.83], Other fatigue [R53.83] [...] Home Sleep Apnea Test (HSAT) from Janet Samuels APRN.ROLLING MACHINE OPERATOR AUTOMATIC , huber Rapp. [facility] Staff. Visit prep complete. Comments :No The sleep study is scheduled for 10/02. Insurance: Payor: [place] MEDICAID / Plan: [place] [facility] MEDICAID / Product Type: Medicaid / Payer/Plan Subscr Sex Relation Sub. Ins. ID Effective Group Num 1. DESIREMari MEDIC* CODY SANTANA 1985 Female Self [id number] 07/13/22 [address] Mita Arellano documented in this encounterAshtabula [facility] Center04-22-2024 History of Present illness Narrative* Kirby Monge [...] visit. Either the patient or their legal traveling sales representative has been informed of the risks and benefits of -- and alternatives to -- treatment through a remote evaluation andconsents to proceed with the evaluation remotely. Date: October 02, 2023 Patient Name: Cody Santana Referring physician: Janet Fernandez [address] [facility] [address] Reason for Evaluation: Headaches Consultation requested by [...] note from 04/13/2023. She was hospitalized at [place] and told that she had a "mini [...] MD Staff, Head[facility] [place] Board Certified in Adult Neurology by DANIEL Board Certified in Headache Medicine by [facility] Clinical Backend Python Developer of Neurology with [facility]/ILYA [address] [place] [address]/ [place] [address] Office: [phone] Portions of this note have been composed using voice recognition and may contain electrical engineering professor errors The results of this consult will be sent to the referring provider by either electronic medical record or standard mail. CC: Referring Physician: Janet Fernandez [address] [facility] [address] PCP: To use this Smartlink, specify the provider ID whose address you want to display, e.g., .PROVADDR[1(where 1 is the provider ID). documented in this encounterAshtabula County Medical Center04-04-2024 History of Present illness Narrative* Janet Fernandez APRN.ROLLING MACHINE OPERATOR AUTOMATIC - 09/14/2023 11:30 AM EDT Images from the original note were not included. [facility] [place] Follow-up Visit Follow-up note September 14, 2023 [...] t ongue/cheek bite. Workup was completed at [facility] including MRI Brain, CTA head/neck, and [...] ongoing changes. Additionally, records not received from [facility], however, she reports she has not worn a floral associate and Zio will be ordered at this [...] a headache. Went to the ED at [facility] since last visit. Was at work and felt "weird." Childs like she was spacing out. Went on break and felt more spacey. Speech was off; garbled. States she had generalized weakness in both legs. No focal n/t. No loss of vision, double vision. No syncope or LOC. Per [facility] ED on 08/29/23: States she has [...] B/B, tongue/cheek bite. Previous workup completed through [facility] included MRI brain, CTA head/neck, and [...] noted slurred/garbled speech. Workup was completed through [facility] at that time including CT brain, [...] which included preparing to see the patient, twid-lt-lncd patient care, completing clinical documentation, obtaining and/or reviewing separately obtained history, performing a medically appropriate examination, counseling and educating the pat ient/family/caregiver, and ordering medications, tests, or procedures. documented in this encounterAshtabula County Medical Center03-20-2024 Hospital Discharge instructions Additional Instructions Date of Discharge: 08/30/23[facility] Work Phone: 1(521) 748-338203-20-2024 History and physical note Author Bridgett [facility] August 30, 2023 12:59am Note Date/Time August 29, 2023 11: 07pm [facility] Medical Records Department [address] [place] [address] H&P Exam - Hospitalist 08/29/236 MR#: [id number] Acct: [id number] Name: CODY SANTANA Rep #:[id number] : 1985 37 From: Bridgett Ponce MD PCP: ISABEL Reynaga Status: ADM MARGY Location: [place] [address] HPI - General General Date of Admission: [...] Depression/Suspected Bipolar disorder who presents to the [facility] ED on 08/29/23 with history of [...] EKG with SR without acute evidence ofischemia. [facility] Medical History Anxiety and depression Chronic migraine Chronic neck and back pain Factor 5 Leiden mutation, heterozygous History of nephrolithiasis History of venous thromboembolism Obesity Tobacco use Home Medications medroxyprogesterone 150 mg/mL intramuscular syringe 150 mg IM .[id number] control 01/30/15 [History Last Taken Unknown] topiramate [...] Reaction Status Date / Time acetaminophen [From [place]] Allergy Itching Verified 08/29/23 21:04 hydrocodone [From [place]] Allergy Itching Verified 08/29/23 21:04 cephalexin monohydrate [...] (Auto) 49.4, Lymph % (Auto) 42.1 H, Wilkin % (Auto) 5.7, Eos % (Auto) 1.9, [...] Depression/Suspected Bipolar disorder who presents to the [facility] ED on 08/29/23 with history of [...] Eliquis regimen. Charges/Coding Visit Charges Inpatient E&M: 22934 Init Hosp L2 08/30/23 0059 <Electronically signed by Bridgett Ponce MD> Cosigner Signature (if applicable): CC: CLINICAL CARE MANAGER-C NP. Neli Tripp; Dr. Bridgett Ponce MD~ Signed [facility] Work Phone: 1(841) 105-163803-20-2024 Discharge summary Author Axel Kaur [facility] August 29, 2023 11:29pm Note Date/Time August 29, 2023 10: 07pm [facility] Medical Records Department [address] [place] [address] Emergency Department Summary 08/29/23 MR#: [id number] Acct: [id number] Name: CODY SANTANA Rep #:[id number] : 1985 37 From: Axel Kaur MD PCP: NP. Neli Tripp NP-C Status: REG ER Location: ED HPI History [...] 150 mg/mL intramuscular syringe 150 mg IM .[id number] control 01/30/15 [History Last Taken Unknown] topiramate [...] Reaction Status Date / Time acetaminophen [From [place]] Allergy Itching Verified 08/29/23 21:04 hydrocodone [From [place]] Allergy Itching Verified 08/29/23 21:04 cephalexin monohydrate [...] (Auto) 49.4 Lymph % (Auto) 42.1 H Wilkin % (Auto) 5.7 Eos % (Auto) 1.9 [...] Montero MD at 22:33 EDT , ADDENDUM: 08/29/232247 IMPRESSION: No acute intracranial finding. N.B. : [...] There is sinus variation. EKG is normal. ND interval is 150 ms. QRS duration 84 ms. QT durations 190 ms. [place] is normal) Management Discussion w/another healthcare provider: [...] Brain TIA Disposition Disposition: Acute Care Hospital [facility] What to do if you have Problems For any increased pain, shortness of breath, bleeding, nausea or vomiting, chestpain, or any unexpected problems, contact your Primary Care Provider. Call [facility] ([phone]) or report to the closest Emergency Room. Call 911 if necessary. 08/29/23 5249 <Electronically signed by Axel Kaur MD> Cosigner Signature (if applicable): CC: CLINICAL CARE MANAGER-C NP. Neli Tripp ~ Signed [facility] Work Phone: 1(133) 486-614903-20-2024 Discharge summary Author Axel Kaur [facility] August 29, 2023 11:29pm Note Date/Time August 29, 2023 10: 07pm [facility] Medical Records Department [address] [place] [address] Emergency Department Summary 08/29/23 MR#: [id number] Acct: [id number] Name: CODY SANTANA Rep #:[id number] : [...] 150 mg/mL intramuscular syringe 150 mg IM .[id number] control 01/30/15 [History Last Taken Unknown] topiramate [...] Reaction Status Date / Time acetaminophen [From [place]] Allergy Itching Verified 08/29/23 21:04 hydrocodone [From [place]] Allergy Itching Verified 08/29/23 21:04 cephalexin monohydrate [...] noted Neuro Narrative: There is no dysmetria. Zebulon Coma Scale: document GCS findings Spontaneous Obeys [...] (Auto) 49.4 Lymph % (Auto) 42.1 H Wilkin % (Auto) 5.7 Eos % (Auto) 1.9 [...] There is sinus variation. EKG is normal. ND interval is 150 ms. QRS duration 84 ms. QT durations 190 ms. [place] is normal) Management Discussion w/another healthcare provider: [...] Brain TIA Disposition Disposition: Acute Care Hospital [facility] What to do if you have Problems For any increased pain, shortness of breath, bleeding, nausea or vomiting, chestpain, or any unexpected problems, contact your Primary Care Provider. Call [facility] ([phone]) or report to the closest Emergency Room. Call 911 if necessary. 08/29/232328 <Electronically signed by Axel Kaur MD> Cosigner Signature (if applicable): CC: CLINICAL CARE MANAGERHermelindoC CLINICAL CARE MANAGER. Neli Tripp ~ Signed [facility] Work Phone: 1(835) 358-415103-18-2024 Miscellaneous Notes* Telephone Encounter - Janet Fernandez APRN.CNP - 08/28/2023 11:15 AM EDT Pt already had lab work completed that was ordered at that time. * Telephone Encounter - Shahla Guerra OCCA - 08/28/2023 10:40 AM EDT Patient asking if new orders are necessary for lab draws. Last visit-- tele health 05/31/2023 Lab orders placed 06/06/2023 documented in this encounterAshtabula [facility] Center12-05-2023 NoteHNO ID: [id number] Author: Heron Ardon RT(R) Service: Radiology Author [...] Santana DATE: May 16, 2023 TIME: 4:14 [facility]12-05-2023 NoteHNO ID: [id number] Author: Greg Brennan RN Service: Radiology Author [...] Julianchristiano DATE: May 16, 2023 TIME: 3:51 [facility]12-01-2023 Miscellaneous Notes* Telephone Encounter - Shahla Guerra OCCA - 05/12/2023 11:53 AM EST Received MRI insurance authorization from [facility] dated from 04/19/2023-05/19/2023. Auth # [id number] documented in this encounterAshtabula County Medical Center10-25-2023 Miscellaneous Notes* Telephone Encounter - Lulu Freire - 04/05/2023 11:05 AM EDT Spoke with the patient and scheduled her appointment. * Telephone Encounter - Lulu Freire - 04/05/2023 9:41 AM EDT Left the patient another voice message about calling to schedule an appointment for TIA G45.9. Patient's phone# [phone] & [phone] * Telephone Encounter - Lulu Freire - 03/30/2023 9:22 AM EDT Received outside provider referral and medical records from the nurse. Left the patient a voice message to call the office to schedule an appointment with a neurologist for Possible TIA - abnormal MRI. documented in this encounterAshtabula County Medical Center06-29-2023 Hospital Discharge instructions Patient Education 12/08/2022 11:17:34 [...] including vitamins, herbs, eye drops, creams, and mduh-kte-aqbggdx medicines. Any problems you or family members [...] provider tells you to take them. ?Taking mqin-fwr-bdhvxrf medicines, vitamins, herbs, and supplements. General instructions [...] 06/17/2008 Document Revised: 05/11/2018 Document Reviewed: 04/25/2018 digiSchool Patient Education 2020 [employer]. 12/08/2022 11:17:11 Surgical Spinal Decompression, Care After [...] and water are not available, use hand polysom tech. ?Change your dressing as told by your [...] care provider or physical therapist. Avoid doing retort kiln burner that require a lot of effort, such [...] is safe to drive. General instructions Take pcmk-ojx-tmstrbh and prescription medicines only as told by [...] as fried or sweet foods. ?Take an hpry-umh-hkavqwk or prescription medicine for constipation. If you [...] Follow instructions about activity and movements. Take ovjo-hic-qdxysyd and prescription medicines only as told by your health care provider. Make sure you know what symptoms should cause you to get help right away. This information is not intended to replace advice given to you by your health care provider. Make sure you discuss any questions you have with your health care provider. Document Released: 10/13/2015 Document Revised: 05/11/2018 Document Reviewed: 04/25/2018 digiSchool Patient Education 2020 [employer]. 12/08/2022 11:16:37 Bleeding Disorder Bleeding Disorder A [...] may be referred to a blood specialist (machines technician) for more tests, such as: Complete blood [...] Follow these instructions at home: Medicines Take pvza-mra-pxsdfvr and prescription medicines only as told by your health care provider. Talk with your health care provider before you take any new medicines. Certain medicines may increase your risk for dangerous bleeding. These include: ?Rmng-oeh-lhnczuz medicines that contain aspirin. ?NSAIDs such as [...] injury or bruising, such as contact sports. Seymour your teeth using a soft toothbrush. Use [...] 04/06/2018 Document Revised: 09/18/2019 Document Reviewed: 04/06/2018 [employer]iSchool Patient Education 2020 [employer]. 12/08/2022 11:16:34 Anticoagulation, Generic Anticoagulation, Generic Anticoagulants [...] to work. Your health care provider will tonsorial artist this length of time by blood tests [...] care provider before taking these. Prescription and mkfb-srs-njraaiy medicine consistency is critical to warfarin management. [...] not take or discontinue any prescribed or jlbq-ziu-chooosr medicine except on the advice of your [...] K include spinach, kale, broccoli, cabbage, greens, [place]estone sprouts, asparagus, Bok Jovani, coleslaw, parsley, and [...] 05/29/2006 Document Revised: 06/03/2014 Document Reviewed: 12/31/2008 [facility] Patient Information 2015 [employer]. This information is not intended to replace [...] types of hard cervical collars. Follow the superintendent recreation's instructions for use. These are general guidelines. [...] 02/18/2005 Document Revised: 12/04/2018 Document Reviewed: 04/20/2018 digiSchool Patient Education 2020 [employer]. Follow Up Care 10/27/2022 13:37:36 With:LES MICHEL DO, Orthopedic Address: [address] [place] [address], [address] [facility] [place] [address]- [phone] When: Unknown [facility] 06-29-2023 Note Discharge Instructions Thank you for allowing [place] to assist you with your healthcare needs. The following is importantdischarge information regarding your hospital visit. Your Care Team Daniel Michel DO [place] Inpatient Care Team Your Diagnosis Cervical spondylosis [...] not take any medications, herbal, prescription, or wwyi-obg-uxqrtpi unless prescribed for the next 12 weeks Remember to take your pain medication and/or muscle relaxants as ordered to keep your pain under control No NSAIDs for 3 months, will interfere with the fusion. Swelling around the nerves can cause continued numbness and tingling for days or weeks after surgery Follow Up Appointments Follow Up with LES MICHEL DO, Orthopedic When Where: [address] [place] [address] [address] [facility] [place] [phone] Allergies Keflex (Weakness) [place] (Itching) Percocet (Itching) Vicodin (Itching) cephalexin Medications Please ask your primary doctor or pharmacist before taking any other medication not listed, including over the counter drugs, herbal medications, vitamins and or supplements as they may interact withyour home medications. What How Much When Why Instructions Last Dose Unchanged acetaminophen- hydrocodone ([place] 325- 5 mg oral tablet) 1 tab(s) by mouth Every 6 hours as needed for for pain Cervical spondylosis Duration: 7 Days Pickup at [facility] 6419 12/08 @ 08:35 Unchanged albuterol (Albuterol (Eqv-Ventolin [...] each nostril Once a day Pharmacy Information [facility]: [address] [place], [place] [id number] [phone] What How Much When Comments Stop Taking [...] including vitamins, herbs, eye drops, creams, and ndlu-nyu-ktvuhfb medicines. Any problems you or family members [...] tells you to take them. ? Taking rrta-hld-yeivtoi medicines, vitamins, herbs, and supplements. General instructions [...] 06/17/2008 Document Revised: 05/11/2018 Document Reviewed: 04/25/2018 [employer]iSchool Patient Education 2020 [employer]. Surgical Spinal Decompression, Care After This sheet [...] and water are not available, use hand polysom tech. ? Change your dressing as told by [...] care provider or physical therapist. Avoid doing retort kiln burner that require a lot of effort, such [...] is safe to drive. General instructions Take asya-nkc-abtjfba and prescription medicines only as told by [...] fried or sweet foods. ? Take an vqbe-zkn-iiarzvd or prescription medicine for constipation. If you [...] Follow instructions about activity and movements. Take yhjw-owg-bpbjkrb and prescription medicines only as told by your health care provider. Make sure you know what symptoms should cause you to get help right away. This information is not intended to replace advice given to you by your health care provider. Make sure you discuss any questions you have with your health care provider. Document Released: 10/13/2015 Document Revised: 05/11/2018 Document Reviewed: 04/25/2018 [employer]iSchool Patient Education 2020 [employer] Bleeding Disorder A bleeding disorder causes [...] may be referred to a blood specialist (machines technician) for more tests, such as: Complete blood [...] Follow these instructions at home: Medicines Take fpac-ows-dyhupea and prescription medicines only as told by your health care provider. Talk with your health care provider before you take any new medicines. Certain medicines may increase your risk for dangerous bleeding. These include: ? Ztxk-bbv-ovzhlrd medicines that contain aspirin. ? NSAIDs such [...] injury or bruising, such as contact sports. Seymour your teeth using a soft toothbrush. Use [...] 04/06/2018 Document Revised: 09/18/2019 Document Reviewed: 04/06/2018 [employer]iSchool Patient Education 2020 [employer]. Anticoagulation, Generic Anticoagulants are medicines used to [...] to work. Your health care provider will tonsorial artist this length of time by blood tests [...] care provider before taking these. Prescription and qdbd-jai-zkczzmm medicine consistency is critical to warfarin management. [...] not take or discontinue any prescribed or mifb-hhu-pkyjqce medicine except on the advice of your [...] K include spinach, kale, broccoli, cabbage, greens, [place]estone sprouts, asparagus, Bok Jovani, coleslaw, parsley, and [...] Document Reviewed: 12/31/2008 ExitCare Patient Information 2015 [employer]. This information is not intended to replace [...] types of hard cervical collars. Follow the superintendent recreation's instructions for use. These are general guidelines. [...] 02/18/2005 Document Revised: 12/04/2018 Document Reviewed: 04/20/2018 ElseMama Patient Education 2020 [employer]. Additional Information VACCINATE! IT SAVES LIVES! Members of the community who have not yet received the COVID-19 vaccine and would like to receive it can visit one of [facility] vaccine clinics. There are many vaccine clinic locations within the [facility]. For locations and available times, please visit [email or web address].[place].[email or web address] It is important to note that some COVID mobile vaccine clinics are held outdoors and may be canceled in rainy or stormy conditions. To learn more about pediatric vaccinations (ages 5-11), we invite you to visit the [facility] webpage. https://www.[facility].org/pages/8949-Njobu-Xgpmodpfnhu-Kzrhkephup-Yrsjy-Uqz stions.htmlTo learn more about the COVID-19 vaccine, we invite you to visit the CDC website for a list of frequently asked questions.https://www.cdc.gov/coronavirus/2019-ncov/vaccines/faq.html [employer] Patient Portal Access Instructions: Stay connected with your healthcare team and access your personal medical information anytime with the [employer] Patient Portal. Please follow the directions below to create your [employer] account: 1.Access the email account you provided upon registration to the hospital/physician office.2.Look for an invitation email from [facility].3.Open the email and access the invitation link: AcceptInvitation to [facility].4.Fill in the required bermudez to create your account. To access your account, visit [employer]. Click the blue button labeled "Access Patient [...] who you will allowto register on the [employer] Patient Portal for access to your information. You can also access the [facility] Patient Portal on the [facility] nikki. Simply click on "Patient Portal" and then log into your account. If you would like to receive a full copy of your medical records, please contact the [facility] Medical Records Department by calling [phone], Monday through Monday between 8 a.m. and 4:30 p.m. HOW TO SAFELY DISPOSE OF PRESCRIPTION MEDIC (more content not included)... [facility] Note ORIGINAL Images acquired, not reported on this accession number. [facility] Note ORIGINAL Images acquired, not reported on this accession number.[facility]06-28-2023 Anesthesiology Consult note Patient: CODY SANTANA Age: [...] Cephalexin- No reactions were documented. Keflex- Weakness. [place]- Itching. Percocet- Itching. Vicodin- Itching., Allergies (5) [...] q5min, PRN: Pain, scale 4-6 Prescriptions Prescribed [place] 325- 5 mg oral tablet: 1 tab(s), [...] ESWL (extracorporeal shockwave lithotripsy) of ureteric calculus ([id number]). Comments: 11/25/2022 14:01 Elaine Mendieta RN with ureteral stent, x2 Cystoscopy ([id number]). CTR - carpal tunnel release ([id number]). Comments: 11/25/2022 14:02 Elaine Mendieta RN bilateral Wedge excision of skin of nail fold (eg, for ingrown toenail) (51235). 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 Current Home Treatments None Special [...] Signs(last 24 hrs) Last Charted Heart Rate Ioycffwlw54 bpm (DEC 07 08:50) Resp Rate H 21br/min (TAMIA 28 06:50) SBP80 mmHg (DEC 07 08:45) DBP57 mmHg (DEC 07 08:45) Measurements from flowsheet : Measurements 12/07/2022 6:50 EDT Height 160 cm Admission Weight 101 kg [place] Body Weight 52.38 kg Pain assessment: Pain [...] EDT SN - CAt - Role Performed Electrical Engineering Professor (Modified) 12/07/2022 8:50 EDT Heart Rate Monitored [...] 12/07/2022 7:15 12/07/2022 7:35 EDT SN - AL - Medication TOPICAL THROMBIN SN - AL - Route of Administration Local SN - AL - By (Single) SN - AL - By (Single) 12/07/2022 7:35 EDT Heparin [...] TAE .25 IN X 12 IN 100/CA [address]-665 SN - TDC - Device Type TRAY GONZALEZ CATH 16F W/BAG 10/CA [id number] SN - TDC - Location ANTERIOR NECK [...] Attendee SN - CAt - Role Performed TRAVELING PHLEBOTOMIST SN - CAt - Role Performed Scrub 1 SN - CAt - Role Performed Planner/Scheduler 1 SN - CAt - Role Performed Other SN - CAt - Role Performed Section Chief SN - CAt - Role Performed Stator Plate Washer SN - CAt - Role Performed Section Chief SN - CAt - Role Performed Physician Home Health Billing Specialist 12/07/2022 7:19 EDT SN - CAt - [...] Person #1 We May Share PRIMITIVO Santana [phone] Designated Person #1 Relationship Father Designated Person #2 We May Share PRIMITIVO Kwan [phone] Designated Person #2 Relationship Sibling Privacy Restrictions Requested None Height 160 cm Admission Weight 101 kg [place] Body Weight 52.38 kg Temperature Temporal Artery [...] No further teaching needed Preferred Written Language [place] Preferred Spoken Language Canadian General Infection Prevention Strategies Hand hygiene, Remind [...] Allergies Yes Anesthesia Extension Set Applied Yes Animal Maintenance Supervisor On Yes Consent Form Signed Yes Patient [...] QC PRGUP Positive . Assessment and Plan [place] Society of Anesthesiologists (ASA) physical status classification: Class III. Anesthetic Preoperative Plan Premedication: intravenous. Anesthetic technique: General. Induction: intravenously. Maintenance airway: Oral endotracheal tube. Postoperative pain management: Per surgeon. Risks discussed: nausea, vomiting, sore throat. Informed consent: signed by patient. Digitally Signed by GARRY RYDER on 12/07/2022 08:58 AM [facility]06-28-2023 Note Date of Service 12/07/2022 Chief Complaint [...] LES MICHEL DO on 12/08/2022 10:58 AM [facility] note Author Gabrielle Lucio [facility] August 30, 2023 2:38pm Note Date/Time August 30, 2023 2:3 8pm [facility] Medical Records Department [address] [place] [address] Counseling Note - Pharmacy 08/30/23 1438 MR#: [id number] Acct: [id number] Name: CODY SANTANA Rep #:[id number] : 1985 37 From: Gabrielle Lucio PCP: ISABEL Reynaga Status: ADM MARGY Y Location: [place] [address] Pharmacy [place] Med Reconciliation Pharmacy Service has performed discharge medication reconciliation for this patient. The patient's discharge medication list was reviewed for discrepancies and discrepancies were resolved. Medications at Discharge Home Medications medroxyprogesterone 150 mg/mL intramuscular syringe 150 mg IM .[id number] control 01/30/15 topiramate 25 mg tablet 200 [...] mg PO DAILY PRN MIGRAINE 08/30/23 08/30/23 2037 <Electronically signed by Gabrielle Lucio> Date _ Gabrielle Munoz Signature (if applicable): Date CC: ~ Signed [facility] Work Phone: Consult note Author Gabrielle Lucio [facility] Note Date/Time October 23, 2024 3:51p m [facility] Medical Records Department [address] [place] [address] Counseling Note - Pharmacy 10/23/24 1550 MR#: [id number] Acct: [id number] Name: CODY SANTANA Rep #:[id number] : 1985 38 From: Gabrielle Lucio PCP: Care Physician,No Primary Status :ADM MARGY Y Location: [place] [address] Pharmacy [facility] Pharmacy Service has performed discharge medication reconciliation [...] 150 mg/mL intramuscular syringe 150 mg IM .[id number] control 01/30/15 citalopram 40 mg tablet 40 [...] Signature (if applicable): Date CC: ~ Signed [facility] Work Phone: Discharge summary Author Jeovany Walsh [facility] August 30, 2023 2:09pm Note Date/Time August 30, 2023 1:4 6pm [facility] Medical Records Department [address] [place] [address] Instructions for Home/Discharge Instructions 08/30/23 1344 MR#: [id number] Acct: [id number] Name: CODY SANTANA Rep #:[id number] : [...] Liu; Antwon Hopson; Amelie Lopez; Pierre Melton; Dayanara Scott; Hunter Bennett; Hollis Núñez; Cristiano Cohn; Tatyana Harden; Elizabeth Herrera;Bridgett Ponce Discharge Orders/Prescriptions Prescriptions: Continued acetaminophen [Tylenol] 325 mg capsule 325 mg PO ONCE PRN (Reason: Pain 1-10 Or Fever) chlorhexidine gluconate [Peridex] 0.12 % mouthwash 15 ml buccal BID Qty: 120 1RF topiramate 25 MG tablet 200 mg PO BID medroxyprogesterone 150 MG/ML syringe 150 mg IM .[id number] citalopram 40 MG tablet 40 mg PO [...] PO DAILY PRN Referrals / Follow Up: UngNeli dubon NP-C [Primary Care Provider] - Within 2 Weeks Disposition Disposition (needs filled in before D/C Order can be placed): Home, Self Care 08/30/23 1409<Electronically signed by Jeovany Walsh DO>Jeovany Walsh DO CC: Gracie Bains; Amelie Lopez; CLINICAL CARE MANAGER-C CLINICAL CARE MANAGER. Neli Tripp; Hunter Davidson; Cathy Harding [...] Liu DO; Elizabeth Herrera MD ~ Signed [facility] Work Phone: Discharge summary Author Tayelaura Delvalle [facility] Note Date/Time October 23, 2024 3:34p [facility] Medical Records Department [address] [place] [address] Instructions for Home/Discharge Instructions 10/23/24 1529 MR#: [id number] Acct: [id number] Name: CODY SANTANA Rep #:[id number] : [...] / Restrictions: Patient follows on neurologist in [place]. She had MRI with and without contrast [...] medroxyprogesterone 150 MG/ML syringe 150 mg IM .[id number] citalopram 40 MG tablet 40 mg PO [...] DO; No Primary Care Physician ~ Signed [facility] Work Phone: Discharge summary Author Taye Delvalle [facility] Note Date/Time October 23, 2024 3:41p [facility] Medical Records Department [address] [place] [address] Discharge Summary 10/23/241534 MR#: [id number] Acct: [id number] Name: CODY SANTANA Rep #:[id number] : 1985 38 From: Taye Gaston PCP: Care Physician,No Primary Status :ADM MARGY Location: [place] [address] Providers Date of Admission: 10/22/24 Date of [...] patient states that she follows neurologist in [place] and she had MRI brain with and [...] baseline. She follows her own neurologist in [place] Mild chronic anemia: No acute issues History [...] with her own neurologist she has to pick up truck driver her daughter. Discharge medication reconciliation done. Discharge [...] 150 mg/mL intramuscular syringe 150 mg IM .[id number] control 01/30/15 citalopram 40 mg tablet 40 [...] (Auto) 44.7 L, Lymph % (Auto) 43.7 H,Wilkin % (Auto) 8.6, Eos % (Auto) 2.2, [...] (Auto) 38.1 L, Lymph % (Auto) 49.8 H,Wilkin % (Auto) 7.5, Eos % (Auto) 3.5, [...] IMPRESSION: No acute intracranial abnormality. Reading Location: [facility] Head/Neck CTA 10/22/24 21:18 IMPRESSION: Patent anterior and posterior intracranial and extracranial circulation, withouthemodynamically significant stenosis. Reading Location: [facility] Echocardiogram 10/22/24 21:59 Interpretation Summary Normal LV size. Left ventricular systolic function is normal. The left ventricular ejection fraction is 60 %. Structurally normal valves. Ordering Physician: Farhana Harden Performed By: Ilda Frank RDCS Brain MRI 10/23/24 09:00 IMPRESSION: Bilateral cerebral white matter changes, some with radial orientation, concerning for possible demyelinating disease in a patient of this age. Reading Location: [place] [address] D/ Instructions Discharge Diet: 2000 mg Sodium Diet [...] / Restrictions: Patient follows on neurologist in [place]. She had MRI with and without contrast [...] medroxyprogesterone 150 MG/ML syringe 150 mg IM .[id number] citalopram 40 MG tablet 40 mg PO [...] Self Care Charges/Coding Visit Charges Inpatient E&M: 38633 Disch Hosp >30min 10/23/24 0016 <Electronically signed by Taye Delvalle MD> Cosigner Signature (if applicable): CC: Dr. Taye Delvalle MD; No Primary Care Physician~ Signed [facility] Work Phone: Evaluation + Plan note Future Appointments [facility] Evaluation noteNo assessment information available [facility] Work Phone: Evaluation note* Diagnosis Onset Date Resolution Status Facial droop acute Hypokalemia acute TIA (transient ischemic attack) acute Weakness acute [facility] Work Phone: Evaluation note* Diagnosis Onset Date Resolution Status Facial droop resolved Hypokalemia resolved TIA (transient ischemic attack) resolved Weakness resolved [facility] Work Phone: Evaluation note* Diagnosis Onset Date Resolution Status Acute sinusitis acute Impetigo acute Pain, dental acute [facility] Work Phone: Evaluation note* Diagnosis Onset Date Resolution Status Acute sinusitis acute Impetigo acute Pain, dental acute Gouty arthritis of left great toe acute Brain TIA acute Dysarthria acute Factor V Leiden chronic [facility] Work Phone: Evaluation note* Diagnosis Facial weakness- Primary Facial numbness Disturbance of skin sensation Sensory deficit, right Other general symptoms Memory change Memory loss Migraine without aura and without status migrainosus, not intractable Migraine without aura, without mention of intractable migraine without mention of status migrainosus Other fatigue Snoring Other dyspnea and respiratory abnormality Speech disturbance, unspecified type [facility] Diagnosis Chronic migraine without aura with status migrainosus, not intractable Chronic migraine without aura, without mention of intractable migraine with status migrainosus Snoring Other dyspnea and respiratory abnormality Other fatigue [facility] Diagnosis Tqkrsg-ov-pvfwunfun 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 Facial weakness Facial numbness Disturbance of skin sensation Speech disturbance, unspecified type Nicotine abuse [Z72.0] Tobacco use disorder [facility] Diagnosis Factor V Leiden (HCC)- Primary Primary hypercoagulable state History of DVT of lower extremity Personal history of venous thrombosis and embolism Jxciui-vi-rcmjculyd syndrome (HCC) Unspecified cerebral artery occlusion with cerebral infarction [facility] Diagnosis History of DVT of lower extremity- Primary Personal history of venous thrombosis and embolism [facility] Diagnosis History of DVT of lower extremity- Primary Personal history of venous thrombosis and embolism History of embolic stroke Personal history of other disorders of nervous system and sense organs [facility]* Diagnosis Transient speech disturbance- Primary Transient neurological symptoms Daytime sleepiness Snoring Other dyspnea and respiratory abnormality Tobacco use disorder [facility] Diagnosis Acute cough- Primary Rhinosinusitis Unspecified sinusitis (chronic) [facility] Diagnosis Acute cough [facility] Diagnosis Acute cough- Primary Acute cough [facility] Diagnosis Acute pain of left knee- Primary Acute pain of left knee [facility] Diagnosis Acute pain of left knee [facility]* Diagnosis Migraine without aura and without status migrainosus, not intractable- Primary Migraine without aura, without mention of intractable migraine without mention of status migrainosus [facility]* Diagnosis Injury of right shoulder, initial encounter- Primary Injury of right shoulder, initial encounter [facility]* Diagnosis Injury of right shoulder, initial encounter [facility] Diagnosis History of DVT of lower extremity- Primary Personal history of venous thrombosis and embolism Factor V Leiden (HCC) Primary hypercoagulable state Lupus anticoagulant disorder (HCC) Primary hypercoagulable state [facility]* Diagnosis Lupus anticoagulant disorder (HCC)- Primary Primary hypercoagulable state documented [facility] this [facility]* Diagnosis COVID-19 virus infection- Primary [facility]* Diagnosis URI, acute- Primary Acute upper respiratory infections of unspecified site Acute cough URI, acute Acute upper respiratory infections of unspecified site Acute cough [facility]* Diagnosis URI, acute Acute upper respiratory infections of unspecified site Acute cough [facility] Diagnosis Right wrist pain- Primary Pain [...] Other general symptoms [facility] Diagnosis White matter abnormality on [...] with status migrainosus [facility] Diagnosis Pain in joint, multiple sites Sacroiliac pain Disorders of sacrum Encounter for screening for other musculoskeletal disorder Inflammatory back pain [facility] Diagnosis 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 Positive ALFONZO (antinuclear antibody) Other and unspecified nonspecific immunological findings Antiphospholipid syndrome (HCC) Primary hypercoagulable state Hypermobility syndrome Fibromyalgia Mylagia and myositis, unspecified Irritable bowel syndrome with constipation Irritable bowel syndrome Chronic interstitial cystitis [facility] Diagnosis Onset Date Resolution Status Admit Date Rash noneactive March 25, 2025 3:40pm [facility] Work Phone: Hospital course Narrative No data available for this section [facility] Hospital Discharge instructions Additional Instructions Please wear your Carlos wrap for padding and compression. Ice the area 2-3 times a day for the next 5 days to reduce pain and speed healing. Use crutches for weightbearing if needed and return to the ER should [facility] have any [facility] Work Phone: Hospital Discharge instructions No data available for this section [facility] Discharge instructions Additional Instructions Please continue to stretch and heat your neck to reduce pain and speed healing. Take the prescribed medications as directed to help control symptoms and return to the ER should you have any further [facility] Work Phone: Hospital Discharge instructions Additional Instructions Your symptoms are consistent with a low back strain. Continue ice. You can use lidocaine patches or the Voltaren gel. It is important you follow-up with your pain management doctor and occupational health for reevaluation.[facility] Work Phone: Hospital Discharge instructions Additional Instructions Follow-up with primary care physician. If you do not have 1 follow-up with the 1 provided above. Follow-up with orthopedic physician. Tylenol as needed for pain. Wrist brace for comfort.[facility] Work Phone: Progress note No data available for this section [facility] Reason for referral (narrative)* Diagnostic Procedure Only (Urgent) - Closed Specialty Diagnoses / Procedures Referred By Contac t Referred To Contact XR IMAGING Diagnoses Acute pain of left knee Procedures XR KNEE GENERAL 4V AP BOTH/PA BOTH/LAT/MERC LEFT RADIOLOGIC EXAM KNEE COMPLETE 4/MORE VIEWS Jay Delgado APRN.ROLLING MACHINE OPERATOR [employer] [address] [place] [address] [place] [address] Referral ID Status Reason Start Date Expiration Date V isits Requested Visits Authorized [id number] Closed Auto-Generate d Referral 04/10/2024 05/10/2025 1 1 [facility] for referral (narrative)* Diagnostic Procedure Only (Urgent) - Closed Specialty Diagnoses / Procedures Referred By Contac t Referred To Contact XR IMAGING Diagnoses Acute pain of left knee Procedures XR KNEE GENERAL 4V AP BOTH/PA BOTH/LAT/MERC LEFT RADIOLOGIC EXAM KNEE COMPLETE 4/MORE VIEWS Jay Delgado STRUCTURAL ANALYST.ROLLING MACHINE OPERATOR [employer] [address] [place] [address] [place] [address] Referral ID Status Reason Start Date Expiration Date V isits Requested Visits Authorized [id number] Closed Auto-Generate d Referral 04/10/2024 05/10/2025 1 1 [facility] for referral (narrative)* Diagnostic Procedure Only (Urgent) - Closed Specialty Diagnoses / Procedures Referred By Contac t Referred To Contact XR IMAGING Diagnoses Injury of right shoulder, initial encounter Procedures XR SHOULDER GENERAL 3V OR MORE AP/TRUE AP/OTHER RIGHT RADEX SHOULDER COMPLETE MINIMUM 2 VIEWS Les Mckeon, STRUCTURAL ANALYST.ROLLING MACHINE OPERATOR [employer] [address] [place] [address] [place] [address] Referral ID Status Reason Start Date Expiration Date V isits Requested Visits Authorized [id number] Closed Auto-Generate d Referral 05/24/2024 06/23/2025 [address] [facility] for referral (narrative)* Diagnostic Procedure Only (Urgent) - Closed Specialty Diagnoses / Procedures Referred By Contac t Referred To Contact XR IMAGING Diagnoses Injury of right shoulder, initial encounter Procedures XR SHOULDER GENERAL 3V OR MORE AP/TRUE AP/OTHER RIGHT RADEX SHOULDER COMPLETE MINIMUM 2 VIEWS Les Mckeon APRN.ROLLING MACHINE OPERATOR [employer] [address] [place] [address] [place] [address] Referral ID Status Reason Start Date Expiration Date V isits Requested Visits Authorized [id number] Closed Auto-Generate d Referral 05/24/2024 06/23/2025 [address] [facility] for referral (narrative)No reason for referral information [facility] Work Phone: Reason for visit Narrative* Diagnostic Procedure Only (Urgent) - Closed Specialty Diagnoses / Procedures Referred By Contac t Referred To Contact XR IMAGING Diagnoses Acute pain of left knee Procedures XR KNEE GENERAL 4V AP BOTH/PA BOTH/LAT/MERC LEFT RADIOLOGIC EXAM KNEE COMPLETE 4/MORE VIEWS Jay Delgado APRN.ROLLING MACHINE OPERATOR [employer] [address] [place] [address] [place] [address] Referral ID Status Reason Start Date Expiration Date V isits Requested Visits Authorized [id number] Closed Auto-Generate d Referral 04/10/2024 05/10/2025 1 1 [facility] for visit Narrative* Diagnostic Procedure Only (Urgent) - Closed Specialty Diagnoses / Procedures Referred By Contac t Referred To Contact XR IMAGING Diagnoses Injury of right shoulder, initial encounter Procedures XR SHOULDER GENERAL 3V OR MORE AP/TRUE AP/OTHER RIGHT RADEX SHOULDER COMPLETE MINIMUM 2 VIEWS Les Mckeon APRN.ROLLING MACHINE OPERATOR [employer] [address] [place] [address] [place] [address] Referral ID Status Reason Start Date Expiration Date V isits Requested Visits Authorized [id number] Closed Auto-Generate d Referral 05/24/2024 06/23/2025 1 1 [facility] for visit Narrative* Diagnostic Procedure Only (Urgent) - Closed Specialty Diagnoses / Procedures Referred By Contac t Referred To Contact XR IMAGING Diagnoses Right wrist pain Procedures XR WRIST GENERAL 3V PA/LAT/OBL RIGHT RADEX WRIST COMPLETE MINIMUM 3 VIEWS Jeovany Joseph, PA-C [address] [facility] [address] [place] [address] Phone: tel: fax: [place] [address] Referral ID Status Reason Start Date Expiration Date V isits Requested Visits Authorized [id number] Closed Auto-Generate d Referral 07/29/2024 08/28/2025 1 1 [facility] for visit Narrative* MRI/CT (Routine) - Closed Specialty Diagnoses / Procedures Referred By Contac t Referred To Contact MR IMAGING Diagnoses Demyelinating disease of central nervous system (HCC) Procedures MRI CERVICAL SPINE WO/W IVCON MRI SPINAL CANAL CERVICAL W/O & W/CONTR MATRL Janet Fernandez, STRUCTURAL ANALYST.ROLLING MACHINE OPERATOR [employer] [address] [address] Phone: tel: fax: MR IMAGING [id number] Referral ID Status Reason Start Date Expiration Date V isits Requested Visits Authorized [id number] Closed Auto-Generate d Referral 12/18/2024 01/17/2025 1 1 [facility] for visit Narrative* Diagnostic Procedure Only (Routine) - Closed Specialty Diagnoses / Procedures Referred By Contac t Referred To Contact XR IMAGING Diagnoses Pain in joint, multiple sites Right leg paresthesias Procedures XR KNEE GENERAL 4V AP BOTH/PA BOTH/LAT/MERC RIGHT RADIOLOGIC EXAM KNEE COMPLETE 4/MORE VIEWS Pramod Gomez, PA-C [address] [place] [address] Phone: tel: fax: [place] [address] Referral ID Status Reason Start Date Expiration Date V isits Requested Visits Authorized [id number] Closed Auto-Generate d Referral 01/02/2025 02/01/2026 1 1 [facility] for visit Narrative* Diagnostic Procedure Only (Urgent) - Closed Specialty Diagnoses / Procedures Referred By Don t Referred To Contact XR IMAGING Diagnoses Acute right ankle pain Procedures XR ANKLE GENERAL 3V AP/LAT/OBL RIGHT RADEX ANKLE COMPLETE MINIMUM 3 VIEWS Moomaw, Jay, STRUCTURAL ANALYST.ROLLING MACHINE OPERATOR [employer] [address] [place] [address] Phone: tel: fax: [place] [address] Referral ID Status Reason Start Date Expiration Date V isits Requested Visits Authorized [id number] Closed Auto-Generate d Referral 01/11/2025 02/10/2026 1 1 [facility] for visit Narrative* MRI/CT (Routine) - Closed Specialty Diagnoses / Procedures Referred By Don joe Referred To Contact MR IMAGING Diagnoses Pain in joint, multiple sites Sacroiliac pain Encounter for screening for other musculoskeletal disorder Inflammatory back pain Procedures MRI PELVIS ORTHO GENERAL WO IVCON MRI PELVIS W/O CONTRAST MATERIAL Pramod Gomez PA-C [address] [place] [address] Phone: tel: fax: [place] [address] Referral ID Status Reason Start Date Expiration Date V isits Requested Visits Authorized [id number] Closed Auto-Generat ed Referral Clearance Not Met - Admin/Chairm an/Director Advise to Postpone/Res chedule or Not Proceed 01/16/2025 02/15/2025 1 1 [facility] Summary Purpose Family History Relationship Condition Age at Onset Recorded Date/T carole Not Specified Malignant neoplasm Unknown Relationship Condition Age at Onset Recorded Date/T carole mother Cardiac disease Unknown Cerebrovascular accident (CVA) Unknown Diabetes mellitus Unknown Advance Directives Advance Directive Response Recorded Date/ Time Living Will No April 13 8:24pm Power of Hardwood Floor Installer No April 13, 2021 8:24pm Advance Directive Response Recorded Date/ Time Living Will No May 06, 11:35pm Power of Hardwood Floor Installer No May 06, 2022 11:35pm Advance Directive Response Recorded Date/ Time Living Will No March 15 8:38pm Power of Hardwood Floor Installer No March 15 023 8:38pm Advance Directive Response Recorded Date/ Time Living Will No April 29 023 9:11pm Power of Hardwood Floor Installer No April 29, 2023 9:11pm Advance Directive Response Recorded Date/ Time Living Will Yes July 18 9:42pm Power of Hardwood Floor Installer No July 18, 2023 9:42pm Advance Directive Response Recorded Date/ Time Living Will No August 29, 2023 10:15pm Power of Hardwood Floor Installer No August 28 10:15pm Advance Directive Response Recorded Date/ Time Living Will Yes August 30, 2023 1:00am Power of Hardwood Floor Installer No August 29 1:00am Advance Directive Response Recorded Date/ Time Living Will No August 17, 2024 4:09pm Power of Hardwood Floor Installer No August 17 4:09pm Advance Directive Response Recorded Date/ Time Living Will No August 17, 2024 5:09pm Do you have a Healthcare Power of Hardwood Floor Installer? No August 17, 2024 5:09pm Living Will No September 22, 2024 4:57pm Do you have a Healthcare Power of Hardwood Floor Installer? No September 22, 2024 4:57pm Advance Directive Response Recorded Date/ Time Living Will No August 17, 2024 5:09pm Do you have a Healthcare Power of Hardwood Floor Installer? No August 17, 2024 5:09pm Living Will No September 22, 2024 4:57pm Do you have a Healthcare Power of Hardwood Floor Installer? No September 22, 2024 4:57pm Do you have a Healthcare Power of Hardwood Floor Installer? No October 22, 2024 9:02pm Advance Directive Response Recorded Date/ Time Living Will No August 17, 2024 5:09pm Do you have a Healthcare Power of Hardwood Floor Installer? No August 17, 2024 5:09pm Living Will No September 22, 2024 4:57pm Do you have a Healthcare Power of Hardwood Floor Installer? No September 22, 2024 4:57pm Do you have a Healthcare Power of Hardwood Floor Installer? No October 22, 2024 11:05pm Advance Directive Response Recorded Date/ Time Do you have a Healthcare Power of Hardwood Floor Installer? No October 22, 2024 11:05pm Do you have a Healthcare Power of Hardwood Floor Installer? No January 23, 2025 3:14am Advance Directive Response Recorded Date/ Time Do you have a Healthcare Power of Hardwood Floor Installer? No October 22, 2024 11:05pm Do you have a Healthcare Power of Hardwood Floor Installer? No January 23, 2025 3:14am Do you have a Healthcare Power of Hardwood Floor Installer? No January 30, 2025 9:29am Advance Directive Response Recorded Date/ Time Do you have a Healthcare Power of Hardwood Floor Installer? No January 23, 2025 3:14am Do you have a Healthcare Power of Hardwood Floor Installer? No January 30, 2025 9:29am Do you have a Healthcare Power of Hardwood Floor Installer? No April 02, 2025 6:13pm Advance Directive Response Recorded Date/ Time Do you have a Healthcare Power of Hardwood Floor Installer? No January 23, 2025 2:14am Do you have a Healthcare Power of Hardwood Floor Installer? No January 30, 2025 8:29am Do you have a Healthcare Power of Hardwood Floor Installer? No April 02, 2025 5:13pm Chief Complaint and Reason for Visit Chief [...] 14am HIP January 30, 2025 9: 29am Chief Complaint Admit Date right hip January 23, 2025 3: 14am HIP January 30, 2025 9: 29am Rash March 25, 2025 3 :40pm FALL April 02, 2025 5 :58pm Reason for Visit Admit Date Rash March 25, 2025 3 :40pm Chief Complaint Admit Date right hip January 23, 2025 3: 14am HIP January 30, 2025 9: 29am Rash March 25, 2025 3 :40pm FALL April 02, 2025 5 :58pm headache, sore throat, body aches Octobe r 2024 5:22pm Reason for Referral Specialty Diagnoses / Procedures Referred By Contac t Referred To Contact Diagnoses Migraine without aura and without status [place], [place] [address] [place] [address] Referral ID Status Reason Start Date Expiration Date V isits Requested Visits Authorized [id number] Pending Review 04/29/2024 06/28/2024 1 1 Specialty Diagnoses / Procedures Referred By Contac t Referred To Contact Diagnoses [id number] syndrome (HCC) Procedures CONSULT TO HEMATOLOGY/ONCOLOGY OFFICE/OUTPATIENT [facility] 60 MINUTES Elizabeth Marques MD [address] [place] [address] Referral ID Status Reason Start Date Expiration Date Visits Requested Visits Authorized [id number] Authorized PCP Requested Referral 10/25/2023 2024 1 1 Specialty Diagnoses / Procedures Referred By Contac t Referred To Contact Neurology Diagnoses Facial weakness Facial numbness Speech disturbance, unspecified type Procedures CONSULT TO NEUROLOGY OFFICE/OUTPATIENT NEW HIGH MDM 60 MINUTES Janet Fernandez, MARLEEN.ROLLING MACHINE OPERATOR AUTOMATIC [address] [place] [address] Referral ID Status Reason Start Date Expiration Date Visits Requested Visits Authorized [id number] Authorized PCP Requested Referral 09/17/2023 09/16/2024 1 1 Specialty Diagnoses / Procedures Referred By Don joe Referred To Contact Janet Fernandez APRN.ROLLING MACHINE OPERATOR [employer] [address] [place] [address] Referral ID Status Reason Start Date Expiration Date Visits Re quested Visits Authorized [id number] Closed 1 1 Specialty Diagnoses / Procedures Referred By Don joe Referred To Contact NEUROLOGICAL COUDERSPORT Diagnoses Snoring Other fatigue Procedures HOME SLEEP APNEA TEST (HSAT) SLEEP STD AIRFLOW HRT RATE&O2 SAT EFFORT UNATT Janet Fernandez, MARLEEN.ROLLING MACHINE OPERATOR [employer]OMAT[employer] [address] [place] [address] [facility] [address] [place] [address] Referral ID Status Reason Start Date Expiration Date Visits Requested Visits Authorized [id number] Pending Review Auto-Generat ed Referral 09/14/2023 09/13/2024 1 1 Additional Source Comments INFORMATION SOURCE (unrecogn ized section and content) DATE CREATED AUTHOR 04/26/2020 [facility] DATE CREATED AUTHOR AUTHOR'S ORGANIZ ATION 05/18/2023 [facility] DATE CREATED AUTHOR AUTHOR'S ORGANIZ ATION 06/01/2023 [facility] ([place]) DATE CREATED AUTHOR AUTHOR'S ORGANIZ ATION 08/30/2024 [facility] DATE CREATED AUTHOR AUTHOR'S ORGANIZ ATION 12/30/2024 [facility] DATE CREATED AUTHOR AUTHOR'S ORGANIZ ATION 01/02/2025 [facility] DATE CREATED AUTHOR AUTHOR'S ORGANIZ ATION 04/16/2025 [facility] DATE CREATED AUTHOR AUTHOR'S ORGANIZ ATION 04/17/2025 [facility] Goals (unrecognized section and content) Goals may [...] Active Member Role Status Dates Dilma Gonzalez CLINICAL CARE MANAGER, CLINICAL CARE MANAGER-C Family Provider Active CLINICAL CARE MANAGERSandra Tripp , CLINICAL CARE MANAGER-C Primary Care Provider Activ e Team Status: Active Member Role Status Dates CLINICAL CARE MANAGERSandra Tripp , CLINICAL CARE MANAGER-C Primary Care Provider Activ e Dr. Jeremy Gerard , DO Emergency Provider Active Dr. Bridgett Ponce MD Admit Provider, Attending Prov ider Active Team Status: Active Member Role Status Dates NP. Neli Tripp , CLINICAL CARE MANAGER-C Primary Care Provider Activ e Dr. Jeremy Gerard , DO Emergency Provider Active Dr. Bridgett Ponce MD Admit Provider, Other Provider Active Dr. Lucina Barahona MD Attending Provider, Other Provid er Active Team Status: Active Member Role Status Dates NP. Neli Tripp , CLINICAL CARE MANAGER-C Primary Care Provider Activ e Dr. Jan Ruby MD Attending Provider Active Team Status: Inactive Member Role Status Dates NP. Neli Tripp , CLINICAL CARE MANAGER-C Primary Care Provider, Refe rring Provider Active Torres Richards PA, PA Attending Provider Active Team Status: Inactive Member Role Status Dates NP. Neli Tripp , CLINICAL CARE MANAGER-C Primary Care Provider Activ e Dr. Jeremy Gerard , DO Emergency Provider Active Dr. Bridgett Ponce MD Admit Provider, Other Provider Active Dr. Lucina Barahona MD Attending Provider Active Team Status: Inactive Member Role Status Dates NP. Neli Tripp , CLINICAL CARE MANAGER-C Primary Care Provider Activ e Dr. Ck Matias , DO Emergency Provider Active Team Status: Active Member Role Status Dates NP. Neli Tripp , CLINICAL CARE MANAGER-C Primary Care Provider Activ e Torres Richards PA, PA Attending Provider Active Team Status: Inactive Member Role Status Dates CLINICAL CARE MANAGER. Neli Mayerer , CLINICAL CARE MANAGER-C Primary Care Provider, Refe rring Provider Active Jarrod ROSADO, PA Attending Provider Active Team Status: Inactive Member Role Status Dates CLINICAL CARE MANAGER. Neli Ungerer , CLINICAL CARE MANAGER-C Primary Care Provider, Refe rring Provider Active Katheryn Katz , CLINICAL CARE MANAGER-C Attending Provider Active Team Status: Inactive Member Role Status Dates CLINICAL CARE MANAGER. Neli Mayerer , CLINICAL CARE MANAGER-C Primary Care Provider Activ e Dr. Ck Matias , DO Attending Provider, Emergency P rovider Active Team Status: Inactive Member Role Status Dates CLINICAL CARE MANAGER. Neli Laloerer , CLINICAL CARE MANAGER-C Primary Care Provider Activ e Dr. Damion Saucedo , DO Emergency Provider Active Team Status: Inactive Member Role Status Dates CLINICAL CARE MANAGER. Neli Laloerer , CLINICAL CARE MANAGER-C Primary Care Provider Activ e Dr. Damion Saucedo , Attending Provider, Emergency Pr ovider Active Team Status: Active Member Role Status Dates CLINICAL CARE MANAGER. Neli Mayerer , CLINICAL CARE MANAGER-C Primary Care Provider Activ e Dr. Axel Kaur MD Emergency Provider Active Dr. Bridgett Ponce MD Admit Provider, Attending Prov ider Active Team Status: Inactive Member Role Status Dates CLINICAL CARE MANAGER. Neli Mayerer , CLINICAL CARE MANAGER-C Primary Care Provider Activ e Dr. [...] MD Other Provider Active Dr. Jeovany Walsh DO Attending Provider Active [employer] Senior [employer] Relationship Specialty Start Date End Date Neli Tripp CNP [address] [place] [address] PCP - General Family Medicine 03/19/24 [employer] Senior [employer] Relationship Specialty Start Date End Date Neil Tripp CNP [address] [place] [address] PCP - General Family Medicine 03/19/24 [employer] Senior Officer Relationship Specialty Start Date End Date Neli Tripp CNP [address] [place] [address] PCP - General Family Medicine 03/19/24 [employer] Senior Officer Relationship Specialty Start Date End Date Neli Tripp CNP [address] [place] [address] PCP - General Family Medicine 03/19/24 [employer] Senior Officer Relationship Specialty Start Date End Date Neli Tripp CNP [address] [place] [address] PCP - General Family Medicine 03/19/24 [employer] Senior Officer Relationship Specialty Start Date End Date Neli Tripp CNP [address] [place] [address] PCP - General Family Medicine 03/19/24 [employer] Senior Officer Relationship Specialty Start Date End Date Neli Tripp CNP [address] [place] [address] PCP - General Family Medicine 03/19/24 [employer] Senior Officer Relationship Specialty Start Date End Date Neli Tripp CNP [address] [place] [address] PCP - General Family Medicine 03/19/24 [employer] Senior Officer Relationship Specialty Start Date End Date Neli Tripp CNP [address] [place] [address] PCP - General Family Medicine 03/19/24 [employer] Senior Officer Relationship Specialty Start Date End Date Neli Tripp CNP [address] [place] [address] PCP - General Family Medicine 03/19/24 [employer] Senior Officer Relationship Specialty Start Date End Date Neli Tripp CNP [address] [place] [address] PCP - General Family Medicine 03/19/24 [employer] Senior Officer Relationship Specialty Start Date End Date Neli Tripp CNP [address] [place] [address] PCP - General Family Medicine 03/19/24 [employer] Senior Officer Relationship Specialty Start Date End Date Neli Tripp CNP [address] [place] [address] PCP - General Family Medicine 03/19/24 Team Status: Active Member Role Status Dates ISABEL Reynaga Primary Care Provider Activ e Team Status: Inactive Member Role Status Dates ISABEL Reynaga Primary Care Provider Activ e Start: June 19, 2024 End: June 19, 2024 ISABEL Reynaga Referring Provider Active Start: June 19, 2024 End: June 19, 2024 Torres ROSADO, PA Attending Provider Active Start: June 19, 2024 End: June 19, 2024 Team Status: Inactive Member Role Status Dates NP. Neli Tripp NP-C Primary Care Provider Activ e Start: August 17, 2024 End: August 17, 2024 Dr. Axel Kaur MD Emergency Provider Active Sta rt: August 17, 2024 End: August 17, 2024 [employer] Senior Officer Relationship Specialty Start Date End Date Stephania Trippqueenie Gaston KOLE [address] [facility] [address] [place] [address] PCP - General Family Medicine 03/19/24 Team Status: Active Member Role Status Dates No Primary Care Physician Primary Care Provider Active Team Status: Inactive Member Role Status Dates NP. Neli Tripp , CLINICAL CARE MANAGER-C Primary Care Provider Activ e Start: August 17, 2024 End: August 17, 2024 Dr. Axel Kaur MD Attending Provider Active Sta rt: August 17, 2024 End: August 17, 2024 Dr. Axel Kaur MD Emergency Provider Active Sta rt: August 17, 2024 End: August 17, 2024 Team Status: Inactive Member Role Status Dates NP. Neli Tripp CLINICAL CARE MANAGER-C Primary Care Provider Activ e Start: August 23, 2024 End: August 23, 2024 NP. Neli Tripp CLINICAL CARE MANAGER-C Referring Provider Active Start: August 23, 2024 End: August 23, 2024 ALONZO Crabtree Attending Provider Active Sta rt: August 23, 2024 End: August 23, 2024 Team Status: Inactive Member Role Status Dates NP. Neli Tripp CLINICAL CARE MANAGER-C Primary Care Provider Activ e Start: September 07, 2024 End: September 07, 2024 NP. Neli Tripp CLINICAL CARE MANAGER-C Referring Provider Active Start: September 07, [...] September 22, 2024 End: September 22, 2024 [employer] Senior Officer Relationship Specialty Start Date End Date Neli Tripp CNP [address] [facility] [address] [place] [address] PCP - General Family Medicine 03/19/24 Team Status: Inactive Member Role Status Dates Neli Tripp CLINICAL CARE MANAGER-C Primary Care Provider Active Start: August 17, 2024 End: August 17, 2024 Dr. Axel Kaur MD Attending Provider Active Sta rt: August 17, 2024 End: August 17, 2024 Dr. Axel Kaur MD Emergency Provider Active Sta rt: August 17, 2024 End: August 17, 2024 Team Status: Inactive Member Role Status Dates Neli Tripp CLINICAL CARE MANAGER-C Primary Care Provider Active Start: August 23, 2024 End: August 23, 2024 Neli Tripp CLINICAL CARE MANAGER-C Referring Provider Active Start: August 23, 2024 End: August 23, 2024 ALONZO Crabtree Attending Provider Active Sta rt: August 23, 2024 End: August 23, 2024 Team Status: Inactive Member Role Status Dates Neli Tripp CLINICAL CARE MANAGER-C Primary Care Provider Active Start: September 07, 2024 End: September 07, 2024 Neli Tripp CLINICAL CARE MANAGER-C Referring Provider Active Start: September 07, [...] Start: October 22, 2024 Dr. Jeremy Gerard DO Emergency Provider [...] Provider Active Sta rt: October 23, 2024 [employer] Senior [employer] Relationship Specialty Start Date End Date Neli Tripp ROLLING MACHINE OPERATOR AUTOMATIC [address] [facility] [address] [place] [address] PCP - General Family Medicine 03/19/24 [employer] Senior Officer Relationship Specialty Start Date End Date Neli Tripp ROLLING MACHINE OPERATOR AUTOMATIC [address] [place] [address] PCP - General Family Medicine 03/19/24 [employer] Senior Officer Relationship Specialty Start Date End Date Neli Tripp CNP [address] [place] [address] PCP - General Family Medicine 03/19/24 [employer] Senior Officer Relationship Specialty Start Date End Date Neli Tripp CNP [address] [place] [address] PCP - General Family Medicine 03/19/24 [employer] Senior Officer Relationship Specialty Start Date End Date Neli Tripp CNP [address] [place] [address] PCP - General Family Medicine 03/19/24 [employer] Senior Officer Relationship Specialty Start Date End Date Neli Tripp CNP [address] [place] [address] PCP - General Family Medicine 03/19/24 [employer] Senior Officer Relationship Specialty Start Date End Date Neli Tripp CNP [address] [place] [address] PCP - General Family Medicine 03/19/24 [employer] Senior Officer Relationship Specialty Start Date End Date Colton Kunz PA-C [address] [place] [address] PCP - General Family Medicine 01/02/25 [employer] Senior Officer Relationship Specialty Start Date End Date Colton Kunz PA-C [address] [place] [address] PCP - General Family Medicine 01/02/25 [employer] Senior Officer Relationship Specialty Start Date End Date Colton Kunz PA-C [address] [place] [address] PCP - General Family Medicine 01/02/25 [employer] Senior Officer Relationship Specialty Start Date End Date Colton Kunz PA-C [address] [place] [address] PCP - General Family Medicine 01/02/25 [employer] Senior Officer Relationship Specialty Start Date End Date Colton Kunz PA-C [address] [place] [address] PCP - General Family Medicine 01/02/25 [employer] Senior Officer Relationship Specialty Start Date End Date Colton Kunz PA-C [address] [place] [address] PCP - General Family Medicine 01/02/25 Team Status: Active Member Role/Relationship Status Dates Colton ROSADO PA-C Primary Care Provider Active Team Status: Active Member Role/Relationship Status Dates ALONZO Crabtree Attending Provider Active Sta rt: October 14, 2024 ALONZO Crabtree Referring Provider Active Sta rt: October 14, 2024 No Primary Care Physician Primary Care Provider Active Start: October 14, 2024 Team Status: Inactive Member Role/Relationship Status Dates No Primary Care Physician Primary Care Provider Active Start: October 22, 2024 End: October 23, 2024 Dr. Jeremy Gerard , DO Emergency [...] Start: October 23, 2024 Dr. Jeremy Gerard , Emergency Provider Active Start : October 23, 2024 Dr. Farhana Harden , Admit Provider Active Start : October 23, 2024 Dr. Farhana Harden DO Other Provider Active Start : October 23, 2024 Dr. Taye Delvalle MD Attending Provider Active Start: October 23, 2024 Dr. Taye Delvalle MD Other Provider Active Sta rt: October 23, 2024 Team Status: Inactive Member Role/Relationship Status Dates Colton Kunz PA, PA-C Primary Care Provider Active Start: January 23, 2025 End: January 23, 2025 Dr. Ck Matias DO Emergency Provider Active Start: January 23, 2025 End: January 23, 2025 Team Status: Inactive Member Role/Relationship Status Dates Colton Kunz PA, PA-C Primary Care Provider Active Start: January 23, 2025 End: January 23, 2025 Dr. Ck Matias DO Attending Provider Active Start: January 23, 2025 End: January 23, 2025 Dr. Ck Matias DO Emergency Provider Active Start: January 23, 2025 End: January 23, 2025 Team Status: Inactive Member Role/Relationship Status Dates Colton Kunz PA, PA-C Primary Care Provider Active Start: January 30, 2025 End: January 30, 2025 Dr. Luis Wilkerson MD Emergency Provider Active Start: January 30, 2025 End: January 30, 2025 [employer] Senior [employer] Relationship Specialty Start Date End Date Colton Kunz, PA-C [address] [facility] [address] [place] [address] PCP - General Family Medicine 01/02/25 [employer] Senior Officer Relationship Specialty Start Date End Date ZeColton PA-C [address] [facility] [address] [place] [address] PCP - General Family Medicine 01/02/25 Team Status: Active Member Role/Relationship Status Dates Colton ROSADO PA-C Primary care physician Active Team Status: Inactive Member Role/Relationship Status Dates Colton ROSADO PA-C Primary care physician Active Start: January 23, 2025 End: January 23, 2025 Dr. Ck Matias , Attending physician Active Start: January 23, 2025 End: January 23, 2025 Dr. Ck Matias , Emergency Depart ent Physician Active Start: January 23, 2025 End: January 23, 2025 Team Status: Inactive Member Role/Relationship Status Dates Colton ROSADO PA-C Primary care physician Active Start: January 30, 2025 End: January 30, 2025 Dr. Luis Wilkerson MD Attending physician Active Start: January 30, 2025 End: January 30, 2025 Dr. Luis Wilkerson MD Emergency Depart [facility] Physician Active Start: January 30, 2025 End: January 30, 2025 Team Status: Inactive Member Role/Relationship Status Dates Colton ROSADO PA-C Primary care physician Active Start: March 25, 2025 End: March 25, 2025 ALONZO Gilliam-C Referring Provider Active Start: March 25, 2025 End: March 25, 2025 Torres ROSADO PA Attending physician Active Start: March 25, 2025 End: March 25, 2025 Team Status: Inactive Member Role/Relationship Status Dates Colton ROSADO PA-C Primary care physician Active Start: April 02, 2025 End: April 02, 2025 Dr. Kirby Salcedo , Emergency Depart ent Physician Active Start: April 02, 2025 End: April 02, 2025 Team Status: Inactive Member Role/Relationship Status Dates Colton ROSADO PA-C Primary care physician Active Start: April 02, 2025 End: April 02, 2025 Dr. Kirby Salcedo DO Attending physician Active Start: April 02, 2025 End: April 02, 2025 Dr. Kirby Salcedo DO Emergency Departm ent Physician Active Start: April 02, 2025 End: April 02, 2025 Team Status: Inactive Member Role/Relationship Status Dates Colton ROSADO PA-C Primary care physician Active Start: April 09, 2025 End: April 09, 2025 Colton ROSADO PA-C Referring Provider Active Start: April 09, 2025 End: April 09, 2025 ALONZO Kothari Attending physician Active Start: April 09, 2025 End: April 09, 2025 Source Comments (unrecognize d section and content) In the event this informatio n is protected by the Federal Confidentiality of Alcohol and Drug Abuse Patient Records regulations: The Federal rules restrict any use of the information to criminally investigate or prosecute any alcohol or drug abuse patient.[facility] the event this information is protected by the Federal Confidentiality of Alcohol and Drug Abuse Patient Records regulations: The Federal rules restrict any use of the information to criminally investigate or prosecute any alcohol or drug abuse patient.[facility] the event this information is protected by the Federal Confidentiality of Alcohol and Drug Abuse Patient Records regulations: The Federal rules restrict any use of the information to criminally investigate or prosecute any alcohol or drug abuse patient.[facility] the event this information is protected by the Federal Confidentiality of Alcohol and Drug Abuse Patient Records regulations: The Federal rules restrict any use of the information to criminally investigate or prosecute any alcohol or drug abuse patient.[facility] the event this information is protected by the Federal Confidentiality of Alcohol and Drug Abuse Patient Records regulations: The Federal rules restrict any use of the information to criminally investigate or prosecute any alcohol or drug abuse patient.[facility] the event this information is protected by the Federal Confidentiality of Alcohol and Drug Abuse Patient Records regulations: The Federal rules restrict any use of the information to criminally investigate or prosecute any alcohol or drug abuse patient.[facility] the event this information is protected by the Federal Confidentiality of Alcohol and Drug Abuse Patient Records regulations: The Federal rules restrict any use of the information to criminally investigate or prosecute any alcohol or drug abuse patient.[facility] the event this information is protected by the Federal Confidentiality of Alcohol and Drug Abuse Patient Records regulations: The Federal rules restrict any use of the information to criminally investigate or prosecute any alcohol or drug abuse patient.[facility] Center[facility] the event this information is protected by the Federal Confidentiality of Alcohol and Drug Abuse Patient Records regulations: The Federal rules restrict any use of the information to criminally investigate or prosecute any alcohol or drug abuse patient.[facility] the event this information is protected by the Federal Confidentiality of Alcohol and Drug Abuse Patient Records regulations: The Federal rules restrict any use of the information to criminally investigate or prosecute any alcohol or drug abuse patient.[facility] the event this information is protected by the Federal Confidentiality of Alcohol and Drug Abuse Patient Records regulations: The Federal rules restrict any use of the information to criminally investigate or prosecute any alcohol or drug abuse patient.[facility] Center[facility] the event this information is protected by the Federal Confidentiality of Alcohol and Drug Abuse Patient Records regulations: The Federal rules restrict any use of the information to criminally investigate or prosecute any alcohol or drug abuse patient.[facility] Center[facility] the event this information is protected by the Federal Confidentiality of Alcohol and Drug Abuse Patient Records regulations: The Federal rules restrict any use of the information to criminally investigate or prosecute any alcohol or drug abuse patient.[facility] Center[facility] the event this information is protected by the Federal Confidentiality of Alcohol and Drug Abuse Patient Records regulations: The Federal rules restrict any use of the information to criminally investigate or prosecute any alcohol or drug abuse patient.[facility] Center[facility] the event this information is protected by the Federal Confidentiality of Alcohol and Drug Abuse Patient Records regulations: The Federal rules restrict any use of the information to criminally investigate or prosecute any alcohol or drug abuse patient.[facility] Center[facility] the event this information is protected by the Federal Confidentiality of Alcohol and Drug Abuse Patient Records regulations: The Federal rules restrict any use of the information to criminally investigate or prosecute any alcohol or drug abuse patient.[facility] Center[facility] the event this information is protected by the Federal Confidentiality of Alcohol and Drug Abuse Patient Records regulations: The Federal rules restrict any use of the information to criminally investigate or prosecute any alcohol or drug abuse patient.[facility] Center[facility] the event this information is protected by the Federal Confidentiality of Alcohol and Drug Abuse Patient Records regulations: The Federal rules restrict any use of the information to criminally investigate or prosecute any alcohol or drug abuse patient.[facility] CenterIn the event this information is protected by the Federal Confidentiality of Alcohol and Drug Abuse Patient Records regulations: The Federal rules restrict any use of the information to criminally investigate or prosecute any alcohol or drug abuse patient.[facility] CenterIn the event this information is protected by the Federal Confidentiality of Alcohol and Drug Abuse Patient Records regulations: The Federal rules restrict any use of the information to criminally investigate or prosecute any alcohol or drug abuse patient.[facility] CenterIn the event this information is protected by the Federal Confidentiality of Alcohol and Drug Abuse Patient Records regulations: The Federal rules restrict any use of the information to criminally investigate or prosecute any alcohol or drug abuse patient.[facility] CenterIn the event this information is protected by the Federal Confidentiality of Alcohol and Drug Abuse Patient Records regulations: The Federal rules restrict any use of the information to criminally investigate or prosecute any alcohol or drug abuse patient.[facility] CenterIn the event this information is protected by the Federal Confidentiality of Alcohol and Drug Abuse Patient Records regulations: The Federal rules restrict any use of the information to criminally investigate or prosecute any alcohol or drug abuse patient.[facility] CenterIn the event this information is protected by the Federal Confidentiality of Alcohol and Drug Abuse Patient Records regulations: The Federal rules restrict any use of the information to criminally investigate or prosecute any alcohol or drug abuse patient.[facility] CenterIn the event this information is protected by the Federal Confidentiality of Alcohol and Drug Abuse Patient Records regulations: The Federal rules restrict any use of the information to criminally investigate or prosecute any alcohol or drug abuse patient.[facility] CenterIn the event this information is protected by the Federal Confidentiality of Alcohol and Drug Abuse Patient Records regulations: The Federal rules restrict any use of the information to criminally investigate or prosecute any alcohol or drug abuse patient.[facility] CenterIn the event this information is protected by the Federal Confidentiality of Alcohol and Drug Abuse Patient Records regulations: The Federal rules restrict any use of the information to criminally investigate or prosecute any alcohol or drug abuse patient.[facility] CenterIn the event this information is protected by the Federal Confidentiality of Alcohol and Drug Abuse Patient Records regulations: The Federal rules restrict any use of the information to criminally investigate or prosecute any alcohol or drug abuse patient.[facility] CenterIn the event this information is protected by the Federal Confidentiality of Alcohol and Drug Abuse Patient Records regulations: The Federal rules restrict any use of the information to criminally investigate or prosecute any alcohol or drug abuse patient.[facility] CenterIn the event this information is protected by the Federal Confidentiality of Alcohol and Drug Abuse Patient Records regulations: The Federal rules restrict any use of the information to criminally investigate or prosecute any alcohol or drug abuse patient.[facility] CenterIn the event this information is protected by the Federal Confidentiality of Alcohol and Drug Abuse Patient Records regulations: The Federal rules restrict any use of the information to criminally investigate or prosecute any alcohol or drug abuse patient.[facility] CenterIn the event this information is protected by the Federal Confidentiality of Alcohol and Drug Abuse Patient Records regulations: The Federal rules restrict any use of the information to criminally investigate or prosecute any alcohol or drug abuse patient.[facility] CenterIn the event this information is protected by the Federal Confidentiality of Alcohol and Drug Abuse Patient Records regulations: The Federal rules restrict any use of the information to criminally investigate or prosecute any alcohol or drug abuse patient.[facility] CenterIn the event this information is protected by the Federal Confidentiality of Alcohol and Drug Abuse Patient Records regulations: The Federal rules restrict any use of the information to criminally investigate or prosecute any alcohol or drug abuse patient.[facility] CenterIn the event this information is protected by the Federal Confidentiality of Alcohol and Drug Abuse Patient Records regulations: The Federal rules restrict any use of the information to criminally investigate or prosecute any alcohol or drug abuse patient.[facility] CenterIn the event this information is protected by the Federal Confidentiality of Alcohol and Drug Abuse Patient Records regulations: The Federal rules restrict any use of the information to criminally investigate or prosecute any alcohol or drug abuse patient.[facility] CenterIn the event this information is protected by the Federal Confidentiality of Alcohol and Drug Abuse Patient Records regulations: The Federal rules restrict any use of the information to criminally investigate or prosecute any alcohol or drug abuse patient.[facility] CenterIn the event this information is protected by the Federal Confidentiality of Alcohol and Drug Abuse Patient Records regulations: The Federal rules restrict any use of the information to criminally investigate or prosecute any alcohol or drug abuse patient.[facility] CenterIn the event this information is protected by the Federal Confidentiality of Alcohol and Drug Abuse Patient Records regulations: The Federal rules restrict any use of the information to criminally investigate or prosecute any alcohol or drug abuse patient.[facility] CenterIn the event this information is protected by the Federal Confidentiality of Alcohol and Drug Abuse Patient Records regulations: The Federal rules restrict any use of the information to criminally investigate or prosecute any alcohol or drug abuse patient.[facility] CenterIn the event this information is protected by the Federal Confidentiality of Alcohol and Drug Abuse Patient Records regulations: The Federal rules restrict any use of the information to criminally investigate or prosecute any alcohol or drug abuse patient.[facility] CenterIn the event this information is protected by the Federal Confidentiality of Alcohol and Drug Abuse Patient Records regulations: The Federal rules restrict any use of the information to criminally investigate or prosecute any alcohol or drug abuse patient.[facility] CenterIn the event this information is protected by the Federal Confidentiality of Alcohol and Drug Abuse Patient Records regulations: The Federal rules restrict any use of the information to criminally investigate or prosecute any alcohol or drug abuse patient.[facility] CenterIn the event this information is protected by the Federal Confidentiality of Alcohol and Drug Abuse Patient Records regulations: The Federal rules restrict any use of the information to criminally investigate or prosecute any alcohol or drug abuse patient.[facility] CenterIn the event this information is protected by the Federal Confidentiality of Alcohol and Drug Abuse Patient Records regulations: The Federal rules restrict any use of the information to criminally investigate or prosecute any alcohol or drug abuse patient.[facility] CenterIn the event this information is protected by the Federal Confidentiality of Alcohol and Drug Abuse Patient Records regulations: The Federal rules restrict any use of the information to criminally investigate or prosecute any alcohol or drug abuse patient.[facility] CenterIn the event this information is protected by the Federal Confidentiality of Alcohol and Drug Abuse Patient Records regulations: The Federal rules restrict any use of the information to criminally investigate or prosecute any alcohol or drug abuse patient.[facility] CenterIn the event this information is protected by the Federal Confidentiality of Alcohol and Drug Abuse Patient Records regulations: The Federal rules restrict any use of the information to criminally investigate or prosecute any alcohol or drug abuse patient.[facility] CenterIn the event this information is protected by the Federal Confidentiality of Alcohol and Drug Abuse Patient Records regulations: The Federal rules restrict any use of the information to criminally investigate or prosecute any alcohol or drug abuse patient.[facility] CenterIn the event this information is protected by the Federal Confidentiality of Alcohol and Drug Abuse Patient Records regulations: The Federal rules restrict any use of the information to criminally investigate or prosecute any alcohol or drug abuse patient.[facility] CenterIn the event this information is protected by the Federal Confidentiality of Alcohol and Drug Abuse Patient Records regulations: The Federal rules restrict any use of the information to criminally investigate or prosecute any alcohol or drug abuse patient.[facility] CenterIn the event this information is protected by the Federal Confidentiality of Alcohol and Drug Abuse Patient Records regulations: The Federal rules restrict any use of the information to criminally investigate or prosecute any alcohol or drug abuse patient.[facility] CenterIn the event this information is protected by the Federal Confidentiality of Alcohol and Drug Abuse Patient Records regulations: The Federal rules restrict any use of the information to criminally investigate or prosecute any alcohol or drug abuse patient.[facility] Reason for Visit (unrecogniz ed section and content) Reason Comments New Patient Specialty Diagnoses / Procedures Referred By Contac t Referred To Contact Diagnoses White matter abnormality on MRI of brain Facial numbness Facial weakness Sensory deficit, right Procedures CONSULT TO [facility] OFFICE/OUTPATIENT [facility] 60 MINUTES Janet Fernandez, STRUCTURAL ANALYST.ROLLING MACHINE OPERATOR [employer] [address] [address] Phone: tel: fax: Referral ID Status Reason Start Date Expiration Date V isits Requested Visits Authorized [id number] Closed PCP Requested Referral 12/05/2024 12/05/2025 1 1 Specialty Diagnoses / Procedures Referred By Contac t Referred To Contact Diagnoses [id number]-[id number] syndrome (HCC) Procedures CONSULT TO HEMATOLOGY/ONCOLOGY OFFICE/OUTPATIENT [facility] 60 MINUTES Elizabeth Marques MD [address] [place] [address] Referral ID Status Reason Start Date Expiration Date V isits Requested Visits Authorized [id number] Closed PCP Requested Referral 10/25/2023 2024 1 1 Reason Comments Referral Request Reason Comments Insurance Authorization Authorization fo r MRI received. Auth # [id number] Reason Comments Established Patient Follow Up Reason Comments Migraine Specialty Diagnoses / Procedures Referred By Contac t Referred To Contact Diagnoses Migraine without status migrainosus, not intractable, unspecified migraine type Procedures CONSULT TO [facility] OFFICE/OUTPATIENT [facility] 60-74 MINUTES Janet Fernandez, STRUCTURAL ANALYST.ROLLING MACHINE OPERATOR [employer] [address] [place] [address] Referral ID Status Reason Start Date Expiration Date V isits Requested Visits Authorized [id number] Closed PCP Requested Referral 05/31/2023 05/30/2024 1 1 Reason Comments Consult Reason Comments New Patient Specialty Diagnoses / Procedures Referred By Contac t Referred To Contact Neurology Diagnoses Facial weakness Facial numbness Speech disturbance, unspecified type Procedures CONSULT TO NEUROLOGY OFFICE/OUTPATIENT [facility] 60 MINUTES Janet Fernandez APRN.ROLLING MACHINE OPERATOR [employer] [address] [place] [address] Referral ID Status Reason Start Date Expiration Date V isits Requested Visits Authorized [id number] Closed PCP Requested Referral 09/17/2023 09/16/2024 1 [...] BE BASED ON THE PRIMARY CLINICAL RECORDS. [employer] provides no warranty or guarantee of the accuracy or completeness of information in this document.
[2025-04-27 16:37] VITALS: BP 139/76; PULSE 90; RESP 18; TEMP 36.6; O2SAT 99
== END 2025-04-27 17:00 | disposition home or self-care (01) ==
PROVIDERS: Emergency Provider Emergency Medicine; PCP Family Medicine; Visit Provider Emergency Medicine
DX: M25.571 Pain in right ankle and joints of right foot (principal); F17.210 Nicotine dependence, cigarettes, uncomplicated; F17.220 Nicotine dependence, chewing tobacco, uncomplicated; F17.290 Nicotine dependence, other tobacco product, uncomplicated; Z86.718 Personal history of other venous thrombosis and embolism; Z86.73 Personal history of transient ischemic attack (TIA), and cerebral infarction without residual deficits
CPT/HCPCS: 73610; 99283

== ENCOUNTER → 2025-05-28 | Outpatient (CLI) | payer MEDICAID, SELFPAY ==
--- NOTE | 2025-05-28 16:21 | RAD_ITS ---
PROCEDURE: SHOULDER MIN 2 VIEWS 05/28/2025 REASON FOR EXAM: PAIN TECHNIQUE: Procedure Code: RADSH Modality: DX Procedure: SHOULDER MIN 2 VIEWS Laterality: Left RAD/Shoulder min 2 Views IMPRESSION: No acute fracture or dislocations. Mild degenerative changes of the left should er No acute soft tissue abnormalities. No radiographic foreign body. Reading Location: [id number]
== END | disposition home or self-care (01) ==
LOC: MTRAD 16:21
PROVIDERS: PCP Family Medicine; Referring Provider Physician Assistant; Visit Provider Physician Assistant
DX: M25.512 Pain in left shoulder (principal)
CPT/HCPCS: 73030